=== PATIENT | female | born 1960 | race Caucasian/White ===

== ENCOUNTER → 2016-05-26 | Outpatient (CLI) | payer SELFPAY ==
[~2016-05-26] MED LIST: ACET500C4 PO; AGM875T PO; ALBU17AE3 IH; ALBU8.5H2 IH; ALDACTONE25 MG; AMLO10TA4 PO; AMLO10TA82 PO; AMOX500C2 PO; ASCO500T20 PO; ASP81CT PO; ASP81TEC; ASPI-892; ATOR40TA PO; CALC-80 PO; CALC667C PO; CEFD300C3 PO; CLPD75T; CLPD75T PO; CPR500T PO; CYCL10TA9 PO; DICY20TA57 PO; DOXY100C49; FLUT16SP22; FLUT1DIS26 IH; FURO40TA4 PO; GBPN100C PO; HCT25T; HCT25T PO; HCTZ12.5T PO; HYDR1TAB PO; HYOS0.1283 SL; LEVO750T6 PO; LORA10TA7 PO; LOSA100T16 PO; LOSA1TAB3 PO; LOSA50TA6 PO; LSNP20T PO; MELO7.5T PO; METO100T5 PO; METO200T2 PO; METO50TA7; MNTL10T PO; MTF500T PO; MTP100TCR PO; MTP50T; MULT1CAP27 PO; NEXIUM 20 MG PO; NF-ALI300T PO; NF-ESOM40C PO; NITR100C3 PO; OMEP-10; OMEP40CA36 PO; ONDA4TAB8 PO; ONDAN4ODT PO; OXYC5CAP4 PO; OXYC5TAB71 PO; PENI500T PO; POTA10TA86 PO; PRAV40TA; PRD20T PO; PROP1TAB77; PROP1TAB77 PO; PRV20T; SCR1T1 PO; SMV10T PO; SPRN25T; TRAM-21 PO; TRAM50TA2 PO; TRIA16.5 NS; buspar; norvasc
--- OUTSIDE RECORDS SUMMARY | 2016-05-26 15:52 | XMS REPORT | Continuity of Care Document ---
Author Author [facility] Organization [facility] Address Unknown Phone Unavailable Care Team Providers Care Anode Builder Name Role Phone [facility] [place], [facility] PCP Insurance Providers Payer Name Policy Number Subscriber Name Relationship Self Pay Pamella Bailey 18 Self / Same As Patient Advance Directives Directive Response Recorded Date/Time Advance Directives No 02/19/14 1:38pm Health Care Power of Purchasing And Fiscal Clerk No 02/19/14 1:38pm Organ Donor No 02/19/14 1:38pm Resuscitation Status Full Code 02/19/14 1:38pm Problems Medical Problems Problem Onset Date Status Abdominal pain Unknown Active Cellulitis Unknown Active Cat bite Unknown Active Cat bite of foot Unknown Active Cellulitis Unknown Active Gastroesophageal reflux disease Unknown Active Medications Medication Dose Route Sig Days/Qty Instructions Order Date Discontinued Date Status Aspirin 02/24/08 05/05/08 Discontinued Omeprazole 02/24/08 01/17/10 Discontinued Clopidogrel Bisulfate 02/24/08 01/17/10 Discontinued Hydrochlorothiazide 02/24/08 05/05/08 Discontinued Metoprolol Tartrate (Lopressor) 05/05/08 01/17/10 Discontinued Propoxyphene HCl/Acetaminophen 05/05/08 01/17/10 Discontinued Pravastatin Sodium 05/05/08 01/17/10 Discontinued Spironolactone 05/05/08 09/19/08 Discontinued Aspirin 81 Mg PO DAILY 05/05/08 01/22/12 Discontinued Metoprolol Succinate 08/17/08 01/17/10 Discontinued Spironolactone 08/17/08 01/17/10 Discontinued Pravastatin Sodium 08/17/08 01/17/10 Discontinued Propoxyphene HCl/Acetaminophen 1 Tab PO NEEDED 08/17/08 08/29/10 Discontinued Omeprazole 08/17/08 01/17/10 Discontinued Clopidogrel Bisulfate 75 Mg PO DAILY 08/17/08 07/06/13 Discontinued Aspirin 08/17/08 01/17/10 Discontinued Acetaminophen/Hydrocodone Bitart 1 - 2 Each PO Q4HR PRN 20 Qty 12/08/08 Discontinued Doxycycline Hyclate 09/19/08 12/08/08 Discontinued [buspar ] 09/19/08 02/01/09 Discontinued [norvasc] 09/19/08 02/01/09 Discontinued Amoxicillin 1 Each PO THREE TIMES A DAY 10 Days 09/19/08 12/08/08 Discontinued Tramadol Hcl 50 Mg PO Q4-6HRS PRN 20 Qty 11/22/08 01/17/10 Discontinued Ciprofloxacin 1 Tab PO TWICE A DAY 20 Qty 11/22/08 12/08/08 Discontinued Esomeprazole Magnesium 40 Mg PO DAILY 12/08/08 11/11/12 Discontinued Levofloxacin 1 Each PO DAILY 5 Qty FOR INFECTION 12/08/08 01/17/10 Discontinued Calcium Acetate 667 Mg PO DAILY 02/01/09 03/14/11 Discontinued Sucralfate 1 Gm PO TWICE A DAY 02/01/09 03/14/11 Discontinued Amlodipine Besylate 10 Mg PO BEDTIME 02/01/09 Active Hydrochlorothiazide 12.5 Mg PO DAILY 01/17/10 01/17/10 Discontinued Metoprolol Succinate 100 Mg PO DAILY 01/17/10 11/22/10 Discontinued Atorvastatin Calcium 40 Mg PO BEDTIME 01/17/10 03/17/11 Discontinued Albuterol 2 Puff IH FOUR TIMES DAILY PRN 01/17/10 03/17/11 Discontinued Multivitamins 1 Tab PO BEDTIME 01/17/10 Active Montelukast Sodium 10 Mg PO BEDTIME 01/17/10 03/14/11 Discontinued Losartan/Hydrochlorothiazide 1 Tab PO DAILY 01/17/10 11/22/10 Discontinued Losartan/Hydrochlorothiazide 1 PO DAILY 05/15/10 11/22/10 Discontinued Acetaminophen/Hydrocodone Bitart 1 - 2 Each PO Q4HR PRN 20 Qty 11/22/10 Discontinued Penicillin V Potassium 1 Tab PO FOUR TIMES DAILY 7 Days 05/15/1011/22 Discontinued Salmeterol Xinafoate/Fluticasone 2 Puff IH TWICE A DAY 08/29/10 Discontinued Tramadol Hcl 50 Mg PO NEEDED 08/29/10 03/14/11 Discontinued Furosemide (Lasix) 1 Each PO DAILY 10 Qty 08/29/10 11/22/10 Discontinued Potassium Chloride 1 Each PO DAILY 10 Qty 08/29/10 11/22/10 Discontinued Amlodipine Besylate (Norvasc 10 Mg) 1 Each PO DAILY H Days 03/08/11 Discontinued Losartan/Hydrochlorothiazide 1 Tab PO DAILY 10 Qty 03/08/11 03/14/11 Discontinued Hydrochlorothiazide 1 Each PO DAILY 10 Qty 03/08/11 03/14/11 Discontinued Calcium Carbonate/Vitamin D3 1 Tab PO DAILY 03/14/11 03/17/11 Discontinued Losartan Potassium 50 Mg PO DAILY 03/14/11 03/17/11 Discontinued Hydrochlorothiazide 12.5 Mg PO DAILY 03/14/11 11/11/12 Discontinued Metoprolol Succinate (Toprol Xl) 200 Mg PO DAILY 03/14/11 11/11/12 Discontinued Losartan Potassium 100 Mg PO DAILY 03/17/11 Active Albuterol 2 Puff IH FOUR TIMES DAILY PRN 03/17/11 02/19/14 Discontinued Atorvastatin Calcium 40 Mg PO BEDTIME 03/17/11 01/26/14 Discontinued Calcium Carbonate/Vitamin D3 600 Mg PO DAILY 03/17/11 Active Aliskiren Hemifumarate 300 Mg PO BEDTIME 03/17/11 09/07/11 Discontinued Metformin HCl (Glucophage) 500 Mg PO DAILY HOLD UNTIL RENAL 03/17/11 01/22/12 Discontinued Lisinopril 20 Mg PO DAILY 09/07/11 Active Amoxicillin/Clavulanate Potassium 1 Tab PO TWICE A DAY 20 Qty 09/07/11 09/19/11 Discontinued Ondansetron HCl 4 Mg PO EVERY 4HRS 5 Qty FOR NAUSEA AND VOMITING 09/19/11 Discontinued Ondansetron HCl 4 Mg PO EVERY 4HRS PRN 09/19/11 11/11/12 Discontinued Meloxicam 7.5 Mg PO DAILY 09/21/11 11/10/12 Discontinued Amlodipine Besylate (Norvasc 10 Mg) 1 Each PO DAILY 01/22/12 Discontinued Dicyclomine Hcl 1 Each PO QID PRN 10 Qty 01/22/12 11/11/12 Discontinued Ascorbic Acid 500 Mg PO DAILY 11/10/12 Active Metoprolol Succinate (Toprol Xl) 1 Each PO DAILY 11/11/12 11/11/12 Discontinued Metoprolol Succinate (Toprol Xl) 200 Mg PO BEDTIME 11/11/12 Active [Nexium 20 Mg] 20 Mg PO DAILY 11/11/12 02/19/14 Discontinued Hydrochlorothiazide 25 Mg PO DAILY 11/11/12 Active Fluticasone Propionate 2 Sprays NSEACH TWICE A DAY PRN 11/11/12 Active Loratadine 10 Mg PO DAILY 11/11/12 07/06/13 Discontinued Tramadol Hcl 50 Mg PO EVERY 4HRS PRN NEEDED FOR PAIN 11/11/1202/19 Discontinued Gabapentin 100 Mg PO TWICE A DAY 11/11/12 Active Amoxicillin/Clavulanate K 875 Mg PO TWICE A DAY 01/25/14 02/19/14 Discontinued Oxycodone Hcl 5 Mg PO EVERY 6 HOURS PRN PAIN 6 Qty 01/25/14 02/19/14 Discontinued Simvastatin 10 Mg PO BEDTIME 01/26/14 Active Esomeprazole Magnesium 40 Mg PO DAILY 02/19/14 Active Acetaminophen 1,000 Mg PO EVERY 8HRS PRN PAIN 02/19/14 Active Social History Social History Problem Response Recorded Date/Time Alcohol Use Denies Use 02/19/2014 1:38pm Recreational Drug Use No 02/19/2014 1:38pm Recent Foreign Travel No 01/26/2014 4:50pm Recent Infectious Disease Exposure No 01/26/2014 4:50pm Sexually Transmitted Disease Y GONORRHEA BACK IN HER 20'S 02/19/2014 1:38pm Smoking Status Former Smoker 02/19/2014 1:38pm Query Response Start Date Stop Date Smoking Status Former Smoker Hospital Discharge Instructions No hospital discharge instructions. Plan of Care No plan of care. Functional Status No functional status results. Allergies, Adverse Reactions, Alerts Allergen Type Severity Reaction Status Last Updated NSAIDS (Non-Steroidal Anti-Inflammatory Drug) ([id number]) Allergy Unknown Active 11/11/12 Sulfa (Sulfonamide Antibiotics) ([id number]) Allergy Unknown Active 12/17 Niacin Allergy Unknown Active 09/19/11 IV CONTRAST Allergy Unknown Active 11/11/12 Immunizations Name Given Type Date of Pneumonia Vaccine 01/05/11 Historical Date of Influenza Vaccine 01/05/11 Historical Tetanus Booster (TDap) Less than 5yrs Historical Vital Signs Acute Vital Signs Vital Response Date/Time Temperature (Fahrenheit) 97 degrees F (97.6 - 99.5) Temperature (Calculated Celsius) 36.1140 degrees C (36.4 - 37.5) Temperature Source Temporal Pulse Rate (adult) 76 bpm (60 - 90) Respiratory Rate 18 bpm (12 - 24) O2 Sat by Pulse Oximetry 98 % (88 - 100) Blood Pressure 182/91 mm Hg Pain Pain Intensity 6 Height (Feet) 5 feet Height (Inches) 5 inches Height (Calculated Centimeters) 165.016579 cm Weight (Pounds) 265 pounds Weight (Calculated Kilograms) 120.434514 kilograms Calculated BMI 44.09 Results Test Source Date Result Interp. Ref. Range Comments Activated Partial Thromboplast Time March 16, 2011 3:35pm 50 SEC H 24 -35 Alanine Aminotransferase (ALT/SGPT) July 06, 2013 5:20pm 60 U/L N 30- 65 Albumin July 06, 2013 5:20pm 4.2 G/DL N 3.4-5.0 Alkaline Phosphatase July 06, 2013 5:20pm 138 U/L H 50-136 Amylase Level November 10, 2012 8:59pm 38 U/L N 25-115 Aspartate Amino Transf (AST/SGOT) July 06, 2013 5:20pm 27 U/L N 15-37 B-Type Natriuretic Peptide March 14, 2011 5:20am 22.9 PG/ML N 5.0- 100.0 BUN/Creatinine Ratio July 06, 2013 5:20pm 12 - Basophils # (Auto) January 25, 2014 8:54pm 0.0 10^3/uL N 0.0-0.1 Basophils (%) (Auto) January 25, 2014 8:54pm 0 % N 0-10 Blood Urea Nitrogen July 06, 2013 5:20pm 18 MG/DL N 7-18 C-Reactive Protein November 11, 2012 4:54am 2.1 MG/DL H 0.2-0.9 C-Reactive Protein High Sensitivity January 25, 2014 8:54pm 4.64 MG/DL H 0.00-0.50 Calcium Level July 06, 2013 5:20pm 9.3 MG/DL N 8.5-10.1 Carbon Dioxide Level July 06, 2013 5:20pm 25 MMOL/L N 21-32 Chloride Level July 06, 2013 5:20pm 102 MMOL/L N 101-110 Cholesterol Level March 14, 2011 12:31pm 179 MG/DL N -200 Creatine Kinase MB September 19, 2011 5:02pm 0.0 NG/ML N 0.0-3.6 Creatinine July 06, 2013 5:20pm 1.5 MG/DL H 0.6-1.3 D-Dimer August 17, 2008 7:23pm 0.57 UG/ML H 0.00-0.49 Direct Bilirubin March 17, 2008 9:15am 0.1 MG/DL N 0.0-0.30 Eosinophils # (Auto) January 25, 2014 8:54pm 0.1 10^3/uL N 0.0-0.3 Eosinophils (%) (Auto) January 25, 2014 8:54pm 2 % N 0-10 Glucose Level July 06, 2013 5:20pm 114 MG/DL H 74-106 SPECIMEN 1+ LIPEMIC HDL Cholesterol March 14, 2011 12:31pm 31 MG/DL L 35-60 Hematocrit January 25, 2014 8:54pm 32 % L 35-52 Hemoglobin January 25, 2014 8:54pm 10.7 G/DL L 11.5-16.0 Hemoglobin A1c March 15, 2011 5:06am 5.5 % N 4.8-6.0 Indirect Bilirubin March 17, 2008 9:15am 0.3 MG/DL - Insulin Level March 15, 2011 5:06am 71.2 H mU/L - LDL Cholesterol March 14, 2011 12:31pm 104 MG/DL N 0-129 Lipase November 10, 2012 8:59pm 211 U/L N 73-393 Lymphocytes # (Auto) January 25, 2014 8:54pm 1.6 X 10^3 N 1.0-4.0 Lymphocytes (%) (Auto) January 25, 2014 8:54pm 22 % N 12-44 Magnesium Level January 17, 2010 1:50pm 2.2 MG/DL N 1.8-2.4 Mean Corpuscular Hemoglobin January 25, 2014 8:54pm 32 PG N 25-34 Mean Corpuscular Hemoglobin Concent January 25, 2014 8:54pm 34 G/DL N 32-36 Mean Corpuscular Volume January 25, 2014 8:54pm 94 FL N 80-99 Mean Platelet Volume January 25, 2014 8:54pm 10.6 FL H 7.4-10.4 Monocytes # (Auto) January 25, 2014 8:54pm 0.5 X 10^3 N 0.0-1.0 Monocytes (%) (Auto) January 25, 2014 8:54pm 7 % N 0-12 Myoglobin January 17, 2010 1:50pm 45 UG/L N 10-92 Neutrophils # (Auto) January 25, 2014 8:54pm 4.9 X 10^3 N 1.8-7.8 Neutrophils (%) (Auto) January 25, 2014 8:54pm 69 % N 42-75 Platelet Count January 25, 2014 8:54pm 205 10^3/uL N 130-400 Potassium Level July 06, 2013 5:20pm 4.4 MMOL/L N 3.6-5.0 Prothromb Time International Ratio March 14, 2011 5:20am 0.9 N 0.8- 1.4 INTERPRETIVE DATASUGGESTED THERAPEUTIC RANGE FOR INR'S : VENOUS THROMBOSIS, PULMONARY EMBOLISM, OR PREVENTION OF SYSTEMIC EMBOLISM (EG. IN ATRIAL FIBRILLATION): 2.0 - 3.0 MECHANICAL PROSTHETIC HEART VALVES: 2.5 - 3.5* *NOTE: INR'S UP TO 4.5 MAY BE NECESSARY IN SELECTED GROUPS OF HIGH RISK PATIENTS. [employer] CONSENSUS CONFERENCE ON ANTITHROMBOTIC THERAPY (2000). Prothrombin Time March 14, 2011 5:20am 12.4 SEC N 12.2-14.7 Red Blood Count January 25, 2014 8:54pm 3.38 10^6/uL L 4.35-5.85 Red Cell Distribution Width January 25, 2014 8:54pm 13.1 % N 10.0- 14.5 Serum Test, Qualitative November 22, 2008 7:20pm NEGATIVE - Sodium Level July 06, 2013 5:20pm 135 MMOL/L N 135-145 TSH [place] Testing March 08, 2011 2:55pm 0.99 UIU/ML N 0.34-5.60 Thyroid Stimulating Hormone (TSH) March 14, 2011 12:31pm 0.77 UIU/ML N 0.34-5.60 Total Bilirubin July 06, 2013 5:20pm 0.3 MG/DL N 0.0-1.0 Total Creatine Kinase September 19, 2011 5:02pm 79 U/L N 1-159 Total Protein July 06, 2013 5:20pm 8.1 G/DL N 6.4-8.2 Triglycerides Level March 14, 2011 12:31pm 221 MG/DL H 30.0-150.0 Troponin I September 21, 2011 5:20am < 0.10 NG/ML 0.00-0.10 Urine Bacteria July 06, 2013 4:50pm NEGATIVE /HPF - Has specimen been collected/obtained? YSpecimen Description CLEAN CATCH Urine Bilirubin July 06, 2013 4:50pm NEGATIVE - Has specimen been collected/obtained? YSpecimen Description CLEAN CATCH Urine Casts July 06, 2013 4:50pm NONE /LPF - Has specimen been collected/obtained? YSpecimen Description CLEAN CATCH Urine Clarity July 06, 2013 4:50pm CLEAR - Has specimen been collected/obtained? YSpecimen Description CLEAN CATCH Urine Color July 06, 2013 4:50pm YELLOW - Has specimen been collected/obtained? YSpecimen Description CLEAN CATCH Urine Crystals July 06, 2013 4:50pm NONE /LPF - Has specimen been collected/obtained? YSpecimen Description CLEAN CATCH Urine Culture Indicated July 06, 2013 4:50pm NO - Has specimen been collected/obtained? YSpecimen Description CLEAN CATCH Urine Glucose (UA) July 06, 2013 4:50pm NEGATIVE - Has specimen been collected/obtained? YSpecimen Description CLEAN CATCH Urine Hyaline Casts November 22, 2008 8:05pm RARE - Specimen Description CLEAN CATCH Urine Ketones July 06, 2013 4:50pm NEGATIVE - Has specimen been collected/obtained? YSpecimen Description CLEAN CATCH Urine Leukocyte Esterase July 06, 2013 4:50pm NEGATIVE - Has specimen been collected/obtained? YSpecimen Description CLEAN CATCH Urine Mucus July 06, 2013 4:50pm NEGATIVE /LPF - Has specimen been collected/obtained? YSpecimen Description CLEAN CATCH Urine Nitrate July 17, 2006 5:57pm Negative - Has specimen been collected/obtained? YSpecimen Description CLEAN CATCH Urine Nitrite July 06, 2013 4:50pm NEGATIVE - Has specimen been collected/obtained? YSpecimen Description CLEAN CATCH Urine Test February 28, 2008 6:20am Negative - Has specimen been collected/obtained? YComments to Copper Flotation Operator: DS 2 Urine Protein July 06, 2013 4:50pm NEGATIVE - Has specimen been collected/obtained? YSpecimen Description CLEAN CATCH Urine RBC July 06, 2013 4:50pm NONE /HPF - Has specimen been collected/obtained? YSpecimen Description CLEAN CATCH Urine Specific [place] July 06, 2013 4:50pm 1.005 L - Has specimen been collected/obtained? YSpecimen Description CLEAN CATCH Urine Squamous Epithelial Cells November 10, 2012 8:53pm RARE /HPF - Has specimen been collected/obtained? YSpecimen Description CLEAN CATCH Urine Urobilinogen July 06, 2013 4:50pm NORMAL MG/DL - Has specimen been collected/obtained? YSpecimen Description CLEAN CATCH Urine WBC July 06, 2013 4:50pm 0-2 /HPF - Has specimen been collected/obtained? YSpecimen Description CLEAN CATCH Urine Yeast December 08, 2008 6:55pm FEW H - Has specimen been collected/ obtained? YSpecimen Description CLEAN CATCH Urine pH July 06, 2013 4:50pm 7 - Has specimen been collected/ obtained? YSpecimen Description CLEAN CATCH VLDL Cholesterol March 14, 2011 12:31pm 44 MG/DL H 5-40 White Blood Count January 25, 2014 8:54pm 7.1 10^3/uL N 4.3-11.0 Pathology Consult Specimen May 05, 2008 2:25pm See report - Has specimen been collected/obtained? Y Glucometer February 29, 2008 8:59pm 110 MG/DL N 70-110 Lab Scanned Report September 19, 2011 6:45pm LAB Reports [id number] - Estimat Glomerular Filtration Rate July 06, 2013 5:20pm 37 - GFR INTERPRETIVE DATA UNITS FOR ESTIMATED GFR (eGFR): mL/min/1.73 M2 REFERENCE RANGE FOR ESTIMATED GFR (eGFR) eGFR NORMAL eGFR >60 MODERATELY DECREASED eGFR 30-59 SEVERLY DECREASED eGFR 15-29 KIDNEY FAILURE <15 (OR DIALYSIS) Creatine Kinase September 20, 2011 5:20am 77 U/L N 1-159 Cardiac Panel Pathologist Review September 19, 2011 5:02pm SEE CARDIAC PATH REV - Comments to Copper Flotation Operator: PLEASE USE ANY BLOOD FROM PREVIOUS DRAWS IF ANY Urine RBC (Auto) July 06, 2013 4:50pm NEGATIVE - Has specimen been collected/obtained? YSpecimen Description CLEAN CATCH MRSA Screen Nasal August 09, 2009 7:50am MRSA not isolated Urine Culture Urine-Clean Catch December 08, 2008 6:55pm Escherichia Coli Gram Stain Cyst/Abscess-Other December 28, 2006 6:00pm Procedures Procedure Status Date Provider(s) Tracing only of electrocardiogram completed 02/19/14 BRITNEY NICHOLS MD Encounters Encounter Location Date/Time Departed Emergency Room Via [facility] 02/19/14 1:18pm Departed Emergency Room Via [facility] 01/26/14 4:19pm Departed Emergency Room Via [facility] 01/25/14 8:34pm Recent Diagnosis
--- NOTE | 2016-05-26 17:18 | Diagnostic Imaging Report ---
PROCEDURE: CT urinary tract, rule out kidney stone. TECHNIQUE: Multiple contiguous axial images were obtained through the abdomen and pelvis without the use of intravenous contrast. INDICATION: Right flank pain. COMPARISON: CT abdomen and pelvis without contrast 08/28/2014. FINDINGS: Mild atelectasis or scarring in the lung bases. Atrophic left kidney. Aortobiiliac stent graft and right renal artery stent. The liver, gallbladder, pancreas, spleen, adrenals, right kidney, collecting systems and appendix are negative. Mild degenerative changes in the lumbar spine. No free intraperitoneal air/fluid, lymphadenopathy or evidence of bowel obstruction. IMPRESSION: No acute CT findings in the abdomen or pelvis on this noncontrast exam. Dictated by: Dictated on workstation # [id number]
== END ==
LOC: RAD 15:47
PROVIDERS: ATTEND Nurse Practitioner Family
DX: R10.9 Unspecified abdominal pain (principal)
CPT/HCPCS: 74176

== ENCOUNTER 2016-07-23 11:18 | Emergency (ER) | payer SELFPAY ==
[~2016-07-23] VITALS: Ht 165.1 cm; Wt 124.7 kg
--- OUTSIDE RECORDS SUMMARY | 2016-07-23 11:26 | XMS REPORT | Continuity of Care Document ---
Author Author [facility] Organization [facility] Address Unknown Phone Unavailable Care Team Providers Care Jailor Name Role Phone [facility] [place], [facility] PCP Insurance Providers Payer Name Policy Number Subscriber Name Relationship Self Pay Pamella Bailey 18 Self / Same As Patient Advance Directives Directive Response Recorded Date/Time Advance Directives No 02/19/14 1:38pm Health Care Power of Home Furnishings Sales Representative No 02/19/14 1:38pm Organ Donor No 02/19/14 [...] Status Last Updated NSAIDS (Non-Steroidal Anti-Inflammatory Drug) ([id number]) Allergy Unknown Active 11/11/12 Sulfa (Sulfonamide Antibiotics) ([id number]) Allergy Unknown Active 12/17 Niacin Allergy Unknown [...] Height (Inches) 5 inches Height (Calculated Centimeters) 165.478691 cm Weight (Pounds) 265 pounds Weight (Calculated Kilograms) 120.428094 kilograms Calculated BMI 44.09 Results Test Source [...] SELECTED GROUPS OF HIGH RISK PATIENTS. [employer] CONSENSUS CONFERENCE ON [...] 2013 5:20pm 135 MMOL/L N 135-145 TSH [place] Testing March 08, 2011 2:55pm 0.99 UIU/ML [...] - Has specimen been collected/obtained? YComments to Him Analyst: DS 2 Urine Protein July 06, 2013 4:50pm NEGATIVE - Has specimen been collected/obtained? YSpecimen Description CLEAN CATCH Urine RBC July 06, 2013 4:50pm NONE /HPF - Has specimen been collected/obtained? YSpecimen Description CLEAN CATCH Urine Specific [place] July 06, 2013 4:50pm 1.005 L - [...] Report September 19, 2011 6:45pm LAB Reports [id number] - Estimat Glomerular Filtration Rate July 06, [...] SEE CARDIAC PATH REV - Comments to Him Analyst: PLEASE USE ANY BLOOD FROM PREVIOUS DRAWS [...] Encounter Location Date/Time Departed Emergency Room Via [facility] 02/19/14 1:18pm Departed Emergency Room [facility] 01/26/14 4:19pm Departed Emergency Room [facility] 01/25/14 8:34pm Recent Diagnosis
--- NOTE | 2016-07-23 11:49 | ED Integumentary General ---
General Chief Complaint: Skin/Wound Problems Stated Complaint: L ARM LUMP/REDNESS Nursing Triage Note: PT HERE WITH C/O INFLAMED LESION ON L AC SPACE SINCE 07/23/16. Source: patient Exam Limitations: no limitations History of Present Illness Time seen by provider: 11:43 Initial Comments The patient Presents with an itchy lesion just distal to her left antecubital fossa. This was first noted yesterday. She reports that she been to the doctor for a respiratory infection on and was given doxycycline. Blood was drawn at that time. The area of this lesion is in the distribution of the Band-Aid placed over the puncture site. Timing/Duration: yesterday Location: extremities (left upper) Possible Cause: exposure to allergen Allergies and Home Medications Allergies Coded Allergies: NSAIDS (Non-Steroidal Anti-Inflamma (Verified Allergy, Unknown, 11/11/12) Sulfa (Sulfonamide Antibiotics) (Verified Allergy, Unknown, 11/11/12) acetaminophen (Unverified Allergy, Unknown, 03/26/14) niacin (Verified Allergy, Unknown, 09/19/11) Uncoded Allergies: IV CONTRAST (Allergy, Unknown, 11/11/12) Home Medications Albuterol Sulfate 8.5 Gm Aer.w.adap 2 PUFF IH QID PRN PRN SHORTNESS OF BREATH ( Reported) Amlodipine Besylate 10 Mg Tablet 10 MG PO HS (Reported) Ascorbic Acid 500 Mg Tablet 500 MG PO DAILY (Reported) Calcium Carbonate/Vitamin D3 1 Each Tablet 1 TAB PO DAILY (Reported) Cyclobenzaprine HCl 10 Mg Tablet 10 MG PO DAILY PRN (Reported) Fluticasone Propionate 16 Gm Naspr 2 SPRAYS NA BID PRN PRN ALLERGIES (Reported) Gabapentin 100 Mg Cap 100 MG PO TID (Reported) Lisinopril 20 Mg Tab 20 MG PO DAILY (Reported) Metoprolol Succinate 200 Mg Tab.sr.24h 200 MG PO HS (Reported) Multivitamins 1 Each Capsule 1 TAB PO HS (Reported) Omeprazole 40 Mg Capsule.dr 40 MG PO DAILY (Reported) Ondansetron 4 Mg Tab.rapdis #10 4 MG PO Q4H PRN PRN NAUSEA/VOMITING Prescribed by: МАРИЯ MIRZA on 08/27/15 7744 Simvastatin 10 Mg Tab 10 MG PO HS (Reported) Tramadol HCl 50 Mg Tablet #60 50 MG PO QID Prescribed by: BRITNEY NICHOLS on 12/03/15 1245 Constitutional: see HPI EENTM: no symptoms reported Respiratory: no symptoms reported Cardiovascular: no symptoms reported Gastrointestinal: no symptoms reported Genitourinary: no symptoms reported Musculoskeletal: no symptoms reported Skin: see HPI Psychiatric/Neurological: No Symptoms Reported Endocrine: No Symptoms Reported Hematologic/Lymphatic: No Symptoms Reported Past Veskdvf-Hyovsj-Bchbzf Hx Patient Social History Former Smoker/When Quit: May 07, 2011 Recent Foreign Travel: No Contact w/Someone Who Travel: No Recent Infectious Disease Expo: No Recent Hopitalizations: No Immunizations Up To Date Tetanus Booster (TDap): Less than 5yrs Date of Pneumonia Vaccine: Jan 05, 2011 Date of Influenza Vaccine: Feb 05, 2020 Seasonal Allergies Seasonal Allergies: No Surgeries HX Surgeries: Yes (stents to each kidney, 1 in abd, and 1 in each leg) Surgeries: Adenoidectomy, Ear Surgery, Tonsillectomy, Vascular Surgery Respiratory Hx Respiratory Disorders: Yes Respiratory Disorders: Asthma, COPD Cardiovascular Hx Cardiac Disorders: Yes Cardiac Disorders: Aneurysm, High Cholesterol, Hypertension, Peripheral Vascular Neurological Hx Neurological Disorders: Yes Neurological Disorders: Neuropathy Reproductive System Hx Reproductive Disorders: Yes Sexually Transmitted Disease: Yes (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 BACK IN HER 20'S) 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 Genitourinary Hx Genitourinary Disorders: Yes (WEARS A PAD DUE TO INCONTINENCE, ONLY FUNCTIONING KIDNEY (RT)) Genitourinary Disorders: Renal Failure, UTI-Chronic Gastrointestinal Hx Gastrointestinal Disorders: Yes Gastrointestinal Disorders: Gastroesophageal Reflux Musculoskeletal Hx Musculoskeletal Disorders: Yes Musculoskeletal Disorders: Arthritis, Fibromyalgia Endocrine Hx Endocrine Disorders: Yes (DIET CONTROLLED DM) Endocrine Disorders: Diabetes, Non-Insulin dep HEENT HX ENT Disorders: Yes (NO TOP TEETH/BAD TEETH ON BOTTOM, 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 Physical Exam Vital Signs Vital Sign - Last 12Hours 07/23/16 11:26 Temp 98.7 Pulse 70 Resp 18 B/P 179/65 Pulse Ox 97 O2 Delivery Room Air Capillary Refill : Less Than 3 Seconds General Appearance: WD/WN no apparent distress HEENT: normal ENT inspection Neck: full range of motion Respiratory: chest non-tender lungs clear normal breath sounds no respiratory distress no accessory muscle use Comments There is a 2 cm round raised and slightly red lesion in the left upper forearm just distal to the antecubital space and volar. This appears to be the ulnar border of the Band-Aid placed over the venipuncture site Progress/Results/Core Measures Results/Orders Vital Signs/I&O Vital Sign - Last 12Hours 07/23/16 11:26 Temp 98.7 Pulse 70 Resp 18 B/P 179/65 Pulse Ox 97 O2 Delivery Room Air Blood Pressure Mean: 103 Departure Impression Impression: Primary Impression: Allergic contact dermatitis Disposition: HOME, SELF-CARE Condition: Stable/Unchanged Departure-Patient Inst. Decision time for Depature: 11:47 Referrals: WHIT LOVELL DO (PCP) Primary Care Physician PHUC AMIN (Family) Primary Care Physician Add. Discharge Instructions: All discharge instructions reviewed with patient and/or family. Voiced understanding. Acquire Cortizone 10 and Benadryl 25 mg. These are [id number] medications. Apply the Cortizone 10 3 times daily in sparing amounts until the lesion is cleared. The Benadryl can be used 3 times daily as needed for itching. This causes drowsiness and some people. BRITNEY NICHOLS MD Jul 23, 2016 11:49
[2016-07-23 12:17] VITALS: BP 179/65
== END 2016-07-23 12:15 | disposition home or self-care (01) ==
LOC: EDUNIT# 11:18 → ER 11:20
DX: L23.9 Allergic contact dermatitis, unspecified cause (principal); I10 Essential (primary) hypertension; E11.9 Type 2 diabetes mellitus without complications; J44.9 Chronic obstructive pulmonary disease, unspecified; Z79.899 Other long term (current) drug therapy
CPT/HCPCS: 99285

== ENCOUNTER 2017-02-07 17:54 | Emergency (ER) | payer SELFPAY ==
[~2017-02-07] VITALS: Ht 160 cm; Wt 99.8 kg
--- NOTE | 2017-02-07 18:28 | ED Chest Pain ---
General Chief Complaint: Chest Pain Stated Complaint: CHEST/BACK PAIN Nursing Triage Note: ARRIVED VIA AMB TO ROOM 06 WITH COMPLAINTS OF RIGHT SIDED CHEST PAIN THAT RADIATES INTO BACK. Nursing Sepsis Screen: No Definite Risk Source: patient, spouse Exam Limitations: no limitations History of Present Illness Time seen by provider: 18:06 Initial Comments PResents by private conveyance with 2 hours chest pain mid sternum theat radiates to the epigastrium, then RUQ and around back and up to right shoulder blade and axilla. Reproduciple on pressing. Never had this before. Has [place]ary [place] [address] [place]. Has renetta renal stents and AAA with stents in place. She has had nausea but no vomiting or diarrhea. No SOB or cough. Quit smoking 7 years ago. No thyroid Dx but has hypercholesterolemia and HTN. She has been taking her meds regularly. No trauma. Has had her GB US multiple times most recently a couple months ago. Not sure if she has had HIDA or Upper endoscopy. DM. Allergies and Home Medications Allergies Coded Allergies: NSAIDS (Non-Steroidal Anti-Inflamma (Verified Allergy, Unknown, 11/11/12) Sulfa (Sulfonamide Antibiotics) (Verified Allergy, Unknown, 11/11/12) acetaminophen (Unverified Allergy, Unknown, 03/26/14) niacin (Verified Allergy, Unknown, 09/19/11) Uncoded Allergies: IV CONTRAST (Allergy, Unknown, 11/11/12) Home Medications Albuterol Sulfate 8.5 Gm Aer.w.adap, 2 PUFF IH QID PRN for SHORTNESS OF BREATH, (Reported) Amlodipine Besylate 10 Mg Tablet, 10 MG PO HS, (Reported) Ascorbic Acid 500 Mg Tablet, 500 MG PO DAILY, (Reported) Calcium Carbonate/Vitamin D3 1 Each Tablet, 1 TAB PO DAILY, (Reported) Cephalexin 500 Mg Capsule, 500 MG PO BID for 5 Days, #9 Ref 0 Prescribed by: SANDRA LAWSON on 02/07/17 6328 Cyclobenzaprine HCl 10 Mg Tablet, 10 MG PO DAILY PRN, (Reported) Fluticasone Propionate 16 Gm Naspr, 2 SPRAYS NA BID PRN for ALLERGIES, (Reported ) Gabapentin 100 Mg Cap, 100 MG PO TID, (Reported) Lisinopril 20 Mg Tab, 20 MG PO DAILY, (Reported) Metoprolol Succinate 200 Mg Tab.sr.24h, 200 MG PO HS, (Reported) Multivitamins 1 Each Capsule, 1 TAB PO HS, (Reported) Omeprazole 40 Mg Capsule.dr, 40 MG PO DAILY, (Reported) Ondansetron 4 Mg Tab.rapdis, 4 MG PO Q4H PRN for NAUSEA/VOMITING, #10 Prescribed by: МАРИЯ MIRZA on 08/27/15 1834 Simvastatin 10 Mg Tab, 10 MG PO HS, (Reported) Tramadol HCl 50 Mg Tablet, 50 MG PO QID, #60 Prescribed by: BRITNEY NICHOLS on 12/03/15 1245 Review of Systems Constitutional: No chills, No diaphoresis, No fever EENTM: No Blurred Vision, No Eye Pain Respiratory: Denies Cough, Denies Shortness of Air Cardiovascular: See HPI, Chest Pain, Denies Irregular Heart Rate, Denies Lightheadedness, Denies Palpitations, Denies Syncope Gastrointestinal: See HPI, Denies Abdomen Distended, Abdominal Pain, Denies Constipated, Denies Diarrhea, Nausea, Denies Vomiting Genitourinary: Denies Burning, Denies Discharge Musculoskeletal: No back pain, No joint pain Skin: No pruritus, No rash Psychiatric/Neurological: Denies Headache, Denies Numbness, Denies Paresthesia Endocrine: Denies Intolerance to Cold, Denies Intolerance to Heat, Denies Increased Hunger, Denies Increased Thrist, Denies Increased Urine, Denies Unexplained Weight Gain, Denies Unexplaned Weight Loss Hematologic/Lymphatic: Denies Easy Bleeding, Denies Easy Bruising Past Hitmppl-Avszyo-Vskgjj Hx Patient Social History Alcohol Use: Denies Use Recreational Drug Use: No Smoking Status: Never a Smoker Former Smoker, Quit: May 07, 2009 Recent Foreign Travel: No Contact w/Someone Who Travel: No Recent Infectious Disease Expo: No Recent Hopitalizations: No Immunizations Up To Date Tetanus Booster (TDap): Less than 5yrs Date of Pneumonia Vaccine: Jan 05, 2011 Date of Influenza Vaccine: Feb 05, 2020 Seasonal Allergies Seasonal Allergies: No Surgeries History of Surgeries: Yes (stents to each kidney, 1 in abd, and 1 in each leg) Surgeries: Adenoidectomy, Ear Surgery, Tonsillectomy, Vascular Surgery Respiratory History of Respiratory Disorde: Yes Respiratory Disorders: Asthma, COPD Cardiovascular History of Cardiac Disorders: Yes Cardiac Disorders: Aneurysm, High Cholesterol, Hypertension, Peripheral Vascular Neurological History of Neurological Disord: Yes Neurological Disorders: Neuropathy Reproductive System Hx Reproductive Disorders: Yes Sexually Transmitted Disease: Yes (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 Genitourinary Genitourinary Disorders: Renal Failure, UTI-Chronic Gastrointestinal History of Gastrointestinal Di: Yes Gastrointestinal Disorders: Gastroesophageal Reflux Musculoskeletal History of Musculoskeletal Dis: Yes Musculoskeletal Disorders: Arthritis, Fibromyalgia Endocrine History of Endocrine Disorders: Yes (DIET CONTROLLED DM) Endocrine Disorders: Diabetes, Non-Insulin dep HEENT HEENT Disorders: Glaucoma Loss of Vision: Left Cancer History of Cancer: No Psychosocial History of Psychiatric Problem: No Integumentary History of Skin or Integumenta: No Blood Transfusions History of Blood Disorders: Yes Adverse Reaction to a Blood Tr: No Family Medical History Family Medial History: Patient reports no known family medical history. Physical Exam Vital Signs Vital Sign - Last 12Hours 02/07/17 17:58 Temp 98.0 Pulse 74 Resp 18 B/P (MAP) 149/68 Pulse Ox 97 Capillary Refill : Less Than 3 Seconds General Appearance: No Apparent Distress, WD/WN, Obese HEENT: PERRL/EOMI, Pharynx Normal Neck: Full Range of Motion, Non Tender, Supple Respiratory: Lungs Clear, Normal Breath Sounds, No Accessory Muscle Use, No Respiratory Distress, Other (Chest Tender to palpation over the sternum.) Cardiovascular: Regular Rate, Rhythm, No Edema, No Gallop, No JVD, Normal Peripheral Pulses Gastrointestinal: Normal Bowel Sounds, No Organomegaly, Soft, Tenderness ( epigastric and RUQ. No Bauer's sign. ) Extremity: Normal Capillary Refill, Normal Inspection Neurologic/Psychiatric: Alert, Oriented x3 Skin: Normal Color, Warm/Dry Progress/Results/Core Measures Results/Orders Lab Results Laboratory Tests Test 02/07/17 19:02 02/07/17 20:35 02/07/17 22:00 Range/Units White Blood Count 5.5 4.3-11.0 10^3/uL Red Blood Count 4.05 L 4.35-5.85 10^6/uL Hemoglobin 12.1 11.5-16.0 G/DL Hematocrit 38 35-52 % Mean Corpuscular Volume 95 80-99 FL Mean Corpuscular Hemoglobin 30 25-34 PG Mean Corpuscular Hemoglobin Concent 32 32-36 G/DL Red Cell Distribution Width 13.6 10.0-14.5 % Platelet Count 185 130-400 10^3/uL Mean Platelet Volume 11.1 H 7.4-10.4 FL Neutrophils (%) (Auto) 63 42-75 % Lymphocytes (%) (Auto) 27 12-44 % Monocytes (%) (Auto) 7 0-12 % Eosinophils (%) (Auto) 2 0-10 % Basophils (%) (Auto) 1 0-10 % Neutrophils # (Auto) 3.5 1.8-7.8 X 10^3 Lymphocytes # (Auto) 1.5 1.0-4.0 X 10^3 Monocytes # (Auto) 0.4 0.0-1.0 X 10^3 Eosinophils # (Auto) 0.1 0.0-0.3 10^3/uL Basophils # (Auto) 0.0 0.0-0.1 10^3/uL Prothrombin Time 12.1 L 12.2-14.7 SEC INR Comment 0.9 0.8-1.4 Activated Partial Thromboplast Time 28 24-35 SEC Sodium Level 138 135-145 MMOL/L Potassium Level 3.8 3.6-5.0 MMOL/L Chloride Level 104 98-107 MMOL/L Carbon Dioxide Level 24 21-32 MMOL/L Anion Gap 10 5-14 MMOL/L Blood Urea Nitrogen 12 7-18 MG/DL Creatinine 1.30 0.60-1.30 MG/DL Estimat Glomerular Filtration Rate 43 BUN/Creatinine Ratio 9 Glucose Level 144 H 70-105 MG/DL Calcium Level 9.4 8.5-10.1 MG/DL Magnesium Level 2.1 1.8-2.4 MG/DL Total Bilirubin 0.4 0.1-1.0 MG/DL Aspartate Amino Transf (AST/SGOT) 22 5-34 U/L Alanine Aminotransferase (ALT/SGPT) 29 0-55 U/L Alkaline Phosphatase 82 40-136 U/L Myoglobin 69.5 10.0-92.0 NG/ML Troponin I < 0.30 < 0.30 <0.30 NG/ML Total Protein 7.7 6.4-8.2 GM/DL Albumin 4.5 3.2-4.5 GM/DL Lipase 34 8-78 U/L Urine Color YELLOW Urine Clarity CLEAR Urine pH 6 5-9 Urine Specific [place] 1.010 L 1.016-1.022 Urine Protein NEGATIVE NEGATIVE Urine Glucose (UA) NEGATIVE NEGATIVE Urine Ketones NEGATIVE NEGATIVE Urine Nitrite NEGATIVE NEGATIVE Urine Bilirubin NEGATIVE NEGATIVE Urine Urobilinogen NORMAL NORMAL MG/DL Urine Leukocyte Esterase 3+ H NEGATIVE Urine RBC (Auto) NEGATIVE NEGATIVE Urine RBC NONE /HPF Urine WBC 25-50 H /HPF Urine Squamous Epithelial Cells 2-5 /HPF Urine Crystals NONE /LPF Urine Bacteria MODERATE H /HPF Urine Casts NONE /LPF Urine Mucus NEGATIVE /LPF Urine Culture Indicated YES Urine Opiates Screen NEGATIVE NEGATIVE Urine Oxycodone Screen NEGATIVE NEGATIVE Urine Methadone Screen NEGATIVE NEGATIVE Urine Propoxyphene Screen NEGATIVE NEGATIVE Urine Barbiturates Screen NEGATIVE NEGATIVE Ur Tricyclic Antidepressants Screen NEGATIVE NEGATIVE Urine Phencyclidine Screen NEGATIVE NEGATIVE Urine Amphetamines Screen NEGATIVE NEGATIVE Urine Methamphetamines Screen NEGATIVE NEGATIVE Urine Benzodiazepines Screen NEGATIVE NEGATIVE Urine Cocaine Screen NEGATIVE NEGATIVE Urine Cannabinoids Screen NEGATIVE NEGATIVE My Orders Orders - LURDES LAWSONUS [place] Cbc With Automated Diff (02/07/17 18:19) Magnesium (02/07/17 18:19) Chest 1 View, Ap/Pa Only (02/07/17 18:19) Cardiac Profile 1 (02/07/17 18:19) Comprehensive Metabolic Panel (02/07/17 18:19) Myoglobin Serum (02/07/17 18:19) Protime With Inr (02/07/17 18:19) Partial Thromboplastin Time (02/07/17 18:19) O2 (02/07/17 18:19) Monitor-Rhythm Ecg Trace Only (02/07/17 18:19) Lipid Panel (02/08/17 06:00) Aspirin Chewable Tablet (Baby Aspirin Ch (02/07/17 18:30) Saline Lock/Iv-Start (02/07/17 18:19) Lipase (02/07/17 18:19) Drug Screen Stat (Urine) (02/07/17 18:19) Ua Culture If Indicated (02/07/17 18:19) Lidocaine 2% Viscous 15 Ml (Xylocaine Vi (02/07/17 18:45) Famotidine Tablet (Pepcid Tablet) (02/07/17 18:45) Antacid Suspension (Mylanta Suspension (02/07/17 18:45) Aorta Sono [id number] (02/07/17 18:19) Us Gallbladder 51959 (02/07/17 19:12) Urine Culture (02/07/17 20:35) Troponin I (02/07/17 22:00) Cephalexin Capsule (Keflex Capsule) (02/07/17 23:00) Medications Given in ED Current Medications Medications Dose Ordered Sig/Aramis Route Start Time Stop Time Status Last Admin Dose Admin Al Hydrox/Mg Hydrox/Simethicone 30 ml ONCE ONCE PO 02/07/17 18:45 02/07/17 18:46 DC 02/07/17 18:48 30 ML Aspirin 324 mg ONCE ONCE PO 02/07/17 18:30 02/07/17 18:31 DC 02/07/17 18:48 324 MG Famotidine 20 mg ONCE ONCE PO 02/07/17 18:45 02/07/17 18:46 DC 02/07/17 18:48 20 MG Lidocaine HCl 5 ml ONCE ONCE PO 02/07/17 18:45 02/07/17 18:46 DC 02/07/17 18:48 5 ML Vital Signs/I&O Vital Sign - Last 12Hours 02/07/17 17:58 Temp 98.0 Pulse 74 Resp 18 B/P (MAP) 149/68 Pulse Ox 97 Blood Pressure Mean: 95 Progress Note : Time: 18:30 Progress Note Cannot pull up old imaging at this time. Will get US RUQ and To eval the AAA. Her reproducible CP is less concerning. Doesn't seem to be pleuritic with no cough. Msk seems reasonable or a GI cause. Will give a GI cocktail. 3 hour troponin rule out is the plan. ECG Initial ECG Impression Date: Feb 07, 2017 Initial ECG Impression Time: 18:02 Initial ECG Rate: 69 Initial ECG Rhythm: Normal Sinus Initial ECG Intervals: Normal Initial ECG Impression: Normal Initial ECG Comparisson: No Previous ECG Available Comment No ST wave elevation or depression. Diagnostic Imaging Diagonstic Imaging: Xray Plain Films/CT/US/NM/MRI: chest Comments Negative 1 view chest NAME: PAMELLA TORRES [facility] REC#: [id number] PHYSICIAN: SANDRA LAWSON MD CC: JARON IBARRA DO; SANDRA LAWSON Page 1 of 1 RADIOLOGY REPORT VIA [facility], [facility]. [place], [place] CC: JARON IBARRA DO; SANDRA LAWSON Page 1 of 1 RADIOLOGY REPORT NAME: PAMELLA TORRES [facility] REC#: [id number] PT STATUS: REG ER : 1960 PHYSICIAN: SANDRA LAWSON MD ADMIT DATE: 02/07/17/ER Signed Date of Exam: 02/07/17 CHEST 1 VIEW, AP/PA ONLY INDICATION: Chest pain. COMPARISON: 02/04/2016. EXAMINATION: Upright portable view of the chest was obtained. FINDINGS: Heart size is normal. The pulmonary vessels appear unremarkable. There is no pneumothorax, mediastinal widening or pleural fluid demonstrated. The lungs are clear. IMPRESSION: Negative chest. Dictated by: Dictated on workstation # [id number] Dict: 02/07/171835 Trans: 02/07/171849 Interpreted by: JARON IBARRA DO Electronically signed by: JARON IBARRA DO 02/07/171849 Reviewed: Reviewed by Wy Diagonstic Imaging: Ultrasound Plain Films/CT/US/NM/MRI: abdomen Comments VIA [place], [place] NAME: PAMELLA TORRES [facility] REC#: [id number] PT STATUS: REG ER : 1960 PHYSICIAN: SANDRA LAWSON MD ADMIT DATE: 02/07/17/ER Draft Date of Exam:02/07/17 US GALLBLADDER [id number] PROCEDURE: US Gallbladder. TECHNIQUE: Multiple real-time grayscale images were obtained over the right upper quadrant in various projections. INDICATION: Right upper quadrant abdominal pain There is an increased echogenicity throughout the liver suggesting fatty infiltration. Overlying bowel gas obscures the common bile duct. Gallbladder is within normal limits for size without evidence of intraluminal filling defect or pericholecystic fluid. Pancreas could not be visualized. No right renal abnormalities identified. IMPRESSION: No evidence of gallbladder abnormality on limited study in patient with probable diffuse fatty infiltration of the liver. Dictated on workstation # [id number] Dict: 02/07/171926 Trans: 02/07/171928 MARJORIE [id number] Interpreted by: ZAYDA DONIS MD Electronically signed by: [facility] [place], [place] NAME: PAMELLA TORRES [facility] REC#: [id number] PT STATUS: REG ER : 1960 PHYSICIAN: SANDRA LAWSON MD ADMIT DATE: 02/07/17/ER Draft Date of Exam:02/07/17 AORTA SONO [id number] INDICATION: Abdominal aortic aneurysm. FINDINGS: Ultrasonography of the abdominal aorta is attempted. Large amount of overlying bowel gas obscures the aorta, and measurements could not be obtained. IMPRESSION: Limited study with obscured aorta. Dictated on workstation # [id number] Dict: 02/07/171927 Trans: 02/07/171929 [id number] Interpreted by: ZAYDA DONIS MD Electronically signed by: Reviewed: Reviewed by Me Consults Consults : Consulting Physician: MAKENZIE SMITH MD Consults Notes Discussed the case, findings and he says a CT MCMILLAN would be useful inferior looking at the AAA and can't see it on ultrasound however if her kidneys and allow for contrast been a CT without is useless. He says since the pain is reproducible on palpation is unlikely related to her heart and we can do a 3 hour troponin and have her follow-up with her primary care physician this week. Departure Impression Impression: Primary Impression: Chest wall pain Additional Impression: UTI (urinary tract infection) Qualified Codes: N30.00 - Acute cystitis without hematuria Disposition: HOME, SELF-CARE Condition: Stable Departure-Patient Inst. Decision time for Depature: 22:51 Referrals: WHIT LOVELL DO (PCP) Primary Care Physician PHUC AMIN (Family) Primary Care Physician Patient Instructions: Chest Pain That Is Not Caused by the Heart (DC) Add. Discharge Instructions: Drink plenty of water and use your medications as prescribed. Take one 500 mg capsule of Keflex twice a day for the next 5 days to treat your urinary tract infection. Tomorrow morning call your primary care physician and make an appointment within the next 1-2 weeks to follow up for your ER visit today and consider other causes for your chest wall pain besides the heart such as your gastrointestinal route. If you begin to have new onset chest pain, shortness of breath or nausea and vomiting should return to the ER. All discharge instructions reviewed with patient and/or family. Voiced understanding. Scripts Cephalexin (Keflex) 500 Mg Capsule 500 MG PO BID for 5 Days, #9 CAP 0 Refills Prov: SANDRA LAWSON 02/07/17 Copy Copies To 1: WHIT LOVELL TITUS J Feb 07, 2017 18:28
[2017-02-07] MEDS ORDERED: ASPIRIN 81 MG CHEW (CHILDREN'S ASA) PO ONE (18:30)
--- NOTE | 2017-02-07 18:41 | Diagnostic Imaging Report ---
INDICATION: Chest pain. COMPARISON: 02/04/2016. EXAMINATION: Upright portable view of the chest was obtained. FINDINGS: Heart size is normal. The pulmonary vessels appear unremarkable. There is no pneumothorax, mediastinal widening or pleural fluid demonstrated. The lungs are clear. IMPRESSION: Negative chest. Dictated by: Dictated on workstation # [id number]
[2017-02-07] MEDS ORDERED: ANTACID SUSP 30 ML UDC (MYLANTA) PO ONE (18:45)
[2017-02-07] MEDS ORDERED: FAMOTIDINE 20 MG (PEPCID) TABLET PO ONE (18:45)
[2017-02-07] MEDS ORDERED: LIDOCAINE 2% VISCOUS 15 ML UDC PO ONE (18:45)
[2017-02-07 19:12] LABS: BASOPHILS % (AUTO) 1 % (0-10); EOSINOPHILS # (AUTO) 0.1 10^3/uL (0.0-0.3); EOSINOPHILS % (AUTO) 2 % (0-10); LYMPHOCYTES # (AUTO) 1.5 X 10^3 (1.0-4.0); LYMPHOCYTES % (AUTO) 27 % (12-44); MEAN CORPUSCULAR HEMOGLOBIN 30 PG (25-34); MEAN CORPUSCULAR HGB CONC 32 G/DL (32-36); MEAN CORPUSCULAR VOLUME 95 FL (80-99); MEAN PLATELET VOLUME 11.1 FL (7.4-10.4); MONOCYTES # (AUTO) 0.4 X 10^3 (0.0-1.0); MONOCYTES % (AUTO) 7 % (0-12); NEUTROPHILS # (AUTO) 3.5 X 10^3 (1.8-7.8); NEUTROPHILS % (AUTO) 63 % (42-75); PLATELET COUNT 185 10^3/uL (130-400); RED BLOOD COUNT 4.05 10^6/uL (4.35-5.85); RED CELL DISTRIBUTION WIDTH 13.6 % (10.0-14.5); WHITE BLOOD COUNT 5.5 10^3/uL (4.3-11.0)
[2017-02-07 19:21] LABS: INR 0.9 (0.8-1.4); PROTHROMBIN TIME PATIENT 12.1 SEC (12.2-14.7)
--- NOTE | 2017-02-07 19:30 | Diagnostic Imaging Report ---
INDICATION: Abdominal aortic aneurysm. FINDINGS: Ultrasonography of the abdominal aorta is attempted. Large amount of overlying bowel gas obscures the aorta, and measurements could not be obtained. IMPRESSION: Limited study with obscured aorta. Dictated by: Dictated on workstation # [id number]
--- NOTE | 2017-02-07 19:30 | Diagnostic Imaging Report ---
PROCEDURE: US Gallbladder. TECHNIQUE: Multiple real-time grayscale images were obtained over the right upper quadrant in various projections. INDICATION: Right upper quadrant abdominal pain There is an increased echogenicity throughout the liver suggesting fatty infiltration. Overlying bowel gas obscures the common bile duct. Gallbladder is within normal limits for size without evidence of intraluminal filling defect or pericholecystic fluid. Pancreas could not be visualized. No right renal abnormalities identified. IMPRESSION: No evidence of gallbladder abnormality on limited study in patient with probable diffuse fatty infiltration of the liver. Dictated by: Dictated on workstation # [id number]
[2017-02-07 19:32] LABS: ALANINE AMINOTRANSFERASE 29 U/L (0-55); ALBUMIN 4.5 GM/DL (3.2-4.5); ANION GAP 10 MMOL/L (5-14); ASPARTATE AMINO TRANSFERASE 22 U/L (5-34); BILIRUBIN,TOTAL 0.4 MG/DL (0.1-1.0); BLOOD UREA NITROGEN 12 MG/DL (7-18); BUN/CREATININE RATIO 9; CALCIUM 9.4 MG/DL (8.5-10.1); CARBON DIOXIDE 24 MMOL/L (21-32); CHLORIDE 104 MMOL/L (98-107); GFR ESTIMATED 43; GLUCOSE 144 MG/DL (70-105); LIPASE 34 U/L (8-78); MAGNESIUM 2.1 MG/DL (1.8-2.4); POTASSIUM 3.8 MMOL/L (3.6-5.0); SODIUM 138 MMOL/L (135-145); TOTAL PROTEIN 7.7 GM/DL (6.4-8.2)
[2017-02-07 19:39] LABS: MYOGLOBIN SERUM 69.5 NG/ML (10.0-92.0)
[2017-02-07 20:42] LABS: BILIRUBIN,URINE NEGATIVE (NEGATIVE); KETONES,URINE NEGATIVE (NEGATIVE); LEUKOCYTE ESTERASE ,URINE 3+ (NEGATIVE); NITRITE,URINE NEGATIVE (NEGATIVE); PH,URINE 6 (5-9); PROTEIN,URINE NEGATIVE (NEGATIVE); UROBILINOGEN,URINE NORMAL (NORMAL)
[2017-02-07 20:52] LABS: WBC,URINE 25-50 /HPF
[2017-02-07] MEDS ORDERED: CEPH-507 PO (22:51)
[2017-02-07] MEDS ORDERED: CEPHALEXIN 250 MG (KEFLEX) CAP PO ONE (23:00)
[2017-02-07 23:05] VITALS: BP 169/104
== END 2017-02-07 23:05 | disposition home or self-care (01) ==
LOC: EDUNIT# 17:54 → ER 17:57
DX: Z90.89 Acquired absence of other organs; Z96.0 Presence of urogenital implants; J44.9 Chronic obstructive pulmonary disease, unspecified; I10 Essential (primary) hypertension; E11.40 Type 2 diabetes mellitus with diabetic neuropathy, unspecified; N39.0 Urinary tract infection, site not specified; E78.00 Pure hypercholesterolemia, unspecified; R07.89 Other chest pain; K21.9 Gastro-esophageal reflux disease without esophagitis
CPT/HCPCS: 36415; 71010; 76705; 76775; 80053; 80306; 81000; 83690; 83735; 83874; 84484; 85025; 85610; 85730; 87088; 93005

== ENCOUNTER 2017-03-06 20:31 | Emergency (ER) | payer BC, OTHER ==
[~2017-03-06] VITALS: Ht 160 cm; Wt 99.8 kg
[~2017-03-06 20:31] MED LIST changes: +CEPH-507 PO
--- NOTE | 2017-03-06 20:42 | ED General ---
General Stated Complaint: LOWER STOMACH/BACK PAIN Source of Information: Patient (VERY LIMITED HISTORIAN), Other (FEMALE S.O. ) History of Present Illness Time Seen by Provider: 15:30 Initial Comments PT ARRIVES VIA POV FROM HOME C/O DIFFUSE LOWER ABDOMINAL PAIN AND LOWER BACK PAIN X 4 DAYS, IS GRADUALLY GETTING WORSE NOTHING WORSENS OR IMPROVES PAIN --TOOK 1 TYLENOL WITH OUT RELIEF, OTHERWISE HAS NOT TAKEN ANYTHING FOR PAIN + NAUSEA, NO VOMITING NO DIARRHEA--HAS HAD CONSTIPATION --LAST BM WAS 3-4 DAYS AGO AND ONLY SMALL AMOUNTS NO FEVER DOES HAVE LOWER ABDOMINAL PAIN ON URINATION NO HISTORY OF SIMILAR PCP: [facility] [place] [facility] Allergies and Home Medications Allergies Coded Allergies: NSAIDS (Non-Steroidal Anti-Inflamma (Verified Allergy, Unknown, 11/11/12) Sulfa (Sulfonamide Antibiotics) (Verified Allergy, Unknown, 11/11/12) acetaminophen (Unverified Allergy, Unknown, 03/26/14) niacin (Verified Allergy, Unknown, 09/19/11) Uncoded Allergies: IV CONTRAST (Allergy, Unknown, 11/11/12) Home Medications Albuterol Sulfate 8.5 Gm Aer.w.adap, 2 PUFF IH QID PRN for SHORTNESS OF BREATH, (Reported) Amlodipine Besylate 10 Mg Tablet, 10 MG PO HS, (Reported) Ascorbic Acid 500 Mg Tablet, 500 MG PO DAILY, (Reported) Calcium Carbonate/Vitamin D3 1 Each Tablet, 1 TAB PO DAILY, (Reported) Cefdinir 300 Mg Capsule, 300 MG PO BID, #20 Prescribed by: STANLEY ALTAMIRANO on 03/06/172233 Fluticasone Propionate 16 Gm Naspr, 2 SPRAYS NA BID PRN for ALLERGIES, (Reported ) Gabapentin 100 Mg Cap, 100 MG PO TID, (Reported) Lisinopril 20 Mg Tab, 20 MG PO DAILY, (Reported) Metoprolol Succinate 200 Mg Tab.sr.24h, 200 MG PO HS, (Reported) Multivitamins 1 Each Capsule, 1 TAB PO HS, (Reported) Ondansetron 4 Mg Tab.rapdis, 4 MG PO Q4H, #10 Prescribed by: STANLEY ALTAMIRANO on 03/06/172232 Simvastatin 10 Mg Tab, 10 MG PO HS, (Reported) Tramadol HCl 50 Mg Tablet, 50 MG PO QID, #60 Prescribed by: BRITNEY NICHOLS on 12/03/15 1245 Tramadol HCl 50 Mg Tablet, 50 MG PO Q4H, #20 Prescribed by: STANLEY ALTAMIRANO on 03/06/17 8744 Constitutional: no symptoms reported Respiratory: no symptoms reported Cardiovascular: no symptoms reported Gastrointestinal: see HPI, abdominal pain, constipation, loss of appetite, nausea, No vomiting Genitourinary: see HPI, pain : No Musculoskeletal: see HPI, back pain Skin: no symptoms reported Psychiatric/Neurological: No Symptoms Reported Hematologic/Lymphatic: No Symptoms Reported Immunological/Allergic: no symptoms reported Past Makzsvq-Wjirll-Wjjytg Hx Patient Social History Alcohol Use: Denies Use Recreational Drug Use: No Smoking Status: Former Smoker (1 PPD, QUIT 2009) Former Smoker, Quit: May 07, 2009 Recent Foreign Travel: No Contact w/Someone Who Travel: No Recent Hopitalizations: No Immunizations Up To Date Tetanus Booster (TDap): Less than 5yrs Date of Pneumonia Vaccine: Jan 05, 2011 Date of Influenza Vaccine: Feb 05, 2020 Seasonal Allergies Seasonal Allergies: No Surgeries History of Surgeries: Yes (VASCULAR STENTS TO BOTH LEGS, BOTH KIDNEYS, AND HAS STENT IN ABDOMINAL AORTIC ANEURYSM; CARDIAC CATHS X 2-NO INTERVENTION) Surgeries: Adenoidectomy, Cardiac, Ear Surgery, Tonsillectomy, Vascular Surgery Respiratory History of Respiratory Disorde: Yes Respiratory Disorders: Asthma, COPD Cardiovascular History of Cardiac Disorders: Yes (AAA --S/P STENTING; STENTS IN BILATERAL RENAL ARTERIES, AND STENTS IN BOTH LEGS) Cardiac Disorders: Aneurysm, High Cholesterol, Hypertension, Peripheral Vascular Neurological History of Neurological Disord: Yes Neurological Disorders: Neuropathy Reproductive System Hx Reproductive Disorders: Yes Sexually Transmitted Disease: Yes (GONORRHEA BACK IN HER 20'S) 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 Genitourinary History of Genitourinary Disor: Yes (RENAL ARTERY STENOSIS; ON THE RIGHT KIDNEY IS FUNCTIONING--PT STATES LEFT KIDNEY IS "") Genitourinary Disorders: Renal Failure, UTI-Chronic Gastrointestinal History of Gastrointestinal Di: Yes Gastrointestinal Disorders: Gastroesophageal Reflux Musculoskeletal History of Musculoskeletal Dis: Yes Musculoskeletal Disorders: Arthritis, Fibromyalgia Endocrine History of Endocrine Disorders: Yes (DIET CONTROLLED DM; OBESITY) Endocrine Disorders: Diabetes, Non-Insulin dep HEENT HEENT Disorders: Glaucoma Loss of Vision: Left Cancer History of Cancer: No Psychosocial History of Psychiatric Problem: No Integumentary History of Skin or Integumenta: No Blood Transfusions History of Blood Disorders: Yes Adverse Reaction to a Blood Tr: No Family Medical History Family Medial History: Patient reports no known family medical history. Physical Exam Vital Signs Vital Sign - Last 12Hours 03/06/17 20:46 Temp 98.6 Pulse 78 Resp 18 B/P (MAP) 174/101 Pulse Ox 98 Capillary Refill : General Appearance: No Apparent Distress, Obese HEENT: PERRL/EOMI, Other (POOR DENTITION,MANY MISSING TEETH) Neck: Full Range of Motion, Normal Inspection, Non Tender, Supple, JVD Respiratory: Chest Non Tender, Normal Breath Sounds, No Accessory Muscle Use, No Respiratory Distress Cardiovascular: Regular Rate, Rhythm, No Edema, No JVD, No Murmur, Normal Peripheral Pulses Gastrointestinal: Normal Bowel Sounds, No Organomegaly, No Pulsatile Mass, Soft , Tenderness (DIFFUSE MID AND LOWER ABDOMINAL TENDERNESS) Back: CVA Tenderness (L), CVA Tenderness (R), Other (DIFFUSE LOWER BACK TENDERNESS) Extremity: Normal Capillary Refill, Normal Inspection, Normal Range of Motion, Non Tender, No Calf Tenderness, No Pedal Edema Neurologic/Psychiatric: Alert, Oriented x3, No Motor/Sensory Deficits, Normal Mood/Affect, director script II-XII Norm as Tested Skin: Normal Color, Warm/Dry Progress/Results/Core Measures Results/Orders Lab Results Laboratory Tests Test 03/06/17 20:50 03/06/17 21:55 Range/Units White Blood Count 9.4 4.3-11.0 10^3/uL Red Blood Count 4.04 L 4.35-5.85 10^6/uL Hemoglobin 12.4 11.5-16.0 G/DL Hematocrit 38 35-52 % Mean Corpuscular Volume 94 80-99 FL Mean Corpuscular Hemoglobin 31 25-34 PG Mean Corpuscular Hemoglobin Concent 33 32-36 G/DL Red Cell Distribution Width 13.5 10.0-14.5 % Platelet Count 217 130-400 10^3/uL Mean Platelet Volume 10.7 H 7.4-10.4 FL Neutrophils (%) (Auto) 73 42-75 % Lymphocytes (%) (Auto) 19 12-44 % Monocytes (%) (Auto) 7 0-12 % Eosinophils (%) (Auto) 1 0-10 % Basophils (%) (Auto) 0 0-10 % Neutrophils # (Auto) 6.9 1.8-7.8 X 10^3 Lymphocytes # (Auto) 1.8 1.0-4.0 X 10^3 Monocytes # (Auto) 0.6 0.0-1.0 X 10^3 Eosinophils # (Auto) 0.1 0.0-0.3 10^3/uL Basophils # (Auto) 0.0 0.0-0.1 10^3/uL Sodium Level 137 135-145 MMOL/L Potassium Level 3.8 3.6-5.0 MMOL/L Chloride Level 102 98-107 MMOL/L Carbon Dioxide Level 22 21-32 MMOL/L Anion Gap 13 5-14 MMOL/L Blood Urea Nitrogen 9 7-18 MG/DL Creatinine 1.31 H 0.60-1.30 MG/DL Estimat Glomerular Filtration Rate 42 BUN/Creatinine Ratio 7 Glucose Level 122 H 70-105 MG/DL Calcium Level 9.8 8.5-10.1 MG/DL Total Bilirubin 0.7 0.1-1.0 MG/DL Aspartate Amino Transf (AST/SGOT) 20 5-34 U/L Alanine Aminotransferase (ALT/SGPT) 22 0-55 U/L Alkaline Phosphatase 78 40-136 U/L Total Protein 8.2 6.4-8.2 GM/DL Albumin 4.6 H 3.2-4.5 GM/DL Amylase Level 32 25-125 U/L Lipase 17 8-78 U/L Urine Color YELLOW Urine Clarity CLEAR Urine pH 5 5-9 Urine Specific [place] 1.015 L 1.016-1.022 Urine Protein 4+ NEGATIVE Urine Glucose (UA) NEGATIVE NEGATIVE Urine Ketones NEGATIVE NEGATIVE Urine Nitrite POSITIVE H NEGATIVE Urine Bilirubin NEGATIVE NEGATIVE Urine Urobilinogen NORMAL NORMAL MG/DL Urine Leukocyte Esterase 1+ H NEGATIVE Urine RBC (Auto) 1+ H NEGATIVE Urine RBC 2-5 H /HPF Urine WBC 25-50 H /HPF Urine Crystals NONE /LPF Urine Bacteria FEW H /HPF Urine Casts NONE /LPF Urine Mucus NEGATIVE /LPF Urine Culture Indicated YES My Orders Orders - STANLEY ALTAMIRANO DO Saline Lock/Iv-Start (03/06/17 20:49) Amylase (03/06/17 20:49) Cbc With Automated Diff (03/06/17 20:49) Comprehensive Metabolic Panel (03/06/17 20:49) Lipase (03/06/17 20:49) Ua Culture If Indicated (03/06/17 20:49) Ondansetron Injection (Zofran Injectio (03/06/17 21:00) Saline Lock/Iv-Start (03/06/17 21:27) Ns Iv 1000 Ml (Sodium Chloride 0.9%) (03/06/17 21:27) Ct Abdomen/Pelvis Wo (03/06/17 21:35) Urine Culture (03/06/17 21:55) Ceftriaxone Injection (Rocephin Injectio (03/06/17 22:30) Fentanyl Injection (Sublimaze Injection (03/06/17 22:17) Ceftriaxone Injection (Rocephin Injectio (03/06/17 22:30) Ns (Ivpb) (Sodium Chloride 0.9% Ivpb Bag (03/06/17 22:31) Fentanyl Injection (Sublimaze Injection (03/06/17 22:30) Medications Given in ED Current Medications Medications Dose Ordered Sig/Aramis Route Start Time Stop Time Status Last Admin Dose Admin Ceftriaxone Sodium 1000 mg/ Sodium Chloride 50 ml @ 100 mls/hr ONCE ONCE IV 03/06/17 22:30 03/06/17 22:58 DC 03/06/17 22:43 100 MLS/HR Ondansetron HCl 4 mg ONCE ONCE IVP 03/06/17 21:00 03/06/17 21:02 DC 03/06/17 21:01 4 MG Sodium Chloride 1,000 ml @ 0 mls/hr Q0M ONCE IV 03/06/17 21:27 03/06/17 21:28 DC 03/06/17 21:33 0 MLS/HR Vital Signs/I&O Vital Sign - Last 12Hours 03/06/17 03/06/17 20:46 22:58 Temp 98.6 98.6 Pulse 78 78 Resp 18 18 B/P (MAP) 174/101 Pulse Ox 98 98 Progress Note : Progress Note SYMPTOMS IMPROVED AT DISMISSAL Diagnostic Imaging Comments CT ABDOMEN/PELVIS--NO ACUTE PROCESS, PER RADIOLOGIST REPORT @ 2220 Reviewed: Reviewed by Me Departure Impression Impression: Primary Impression: UTI (urinary tract infection) Additional Impression: Chronic renal disease Disposition: HOME, SELF-CARE Condition: Improved Departure-Patient Inst. Referrals: WHIT LOVELL DO (PCP) Primary Care Physician [facility] (Family) Primary Care Physician Patient Instructions: Urinary Tract Infection, Adult (DC) Add. Discharge Instructions: LOTS OF CLEAR LIQUIDS--NO COFFEE, POP OR TEA FOLLOW UP WITH [facility] IN 2-3 DAYS IF NO BETTER Scripts Tramadol HCl (Ultram) 50 Mg Tablet 50 MG PO Q4H, #20 TAB Prov: STANLEY ALTAMIRANO DO 03/06/17 Cefdinir (Cefdinir) 300 Mg Capsule 300 MG PO BID for FOR INFECTION, #20 CAP Prov: STANLEY ALTAMIRANO DO 03/06/17 Ondansetron (Zofran Odt) 4 Mg Tab.rapdis 4 MG PO Q4H for Nausea/Vomiting, #10 TAB Prov: STANLEY ALTAMIRANO DO 03/06/17 STANLEY ALTAMIRANO DO Mar 06, 2017 20:42
[2017-03-06] MEDS ORDERED: ONDANSETRON 4 MG/2 ML (SDV) Z0FRAN IVP ONE (21:00)
[2017-03-06 21:04] LABS: BASOPHILS % (AUTO) 0 % (0-10); EOSINOPHILS # (AUTO) 0.1 10^3/uL (0.0-0.3); EOSINOPHILS % (AUTO) 1 % (0-10); LYMPHOCYTES # (AUTO) 1.8 X 10^3 (1.0-4.0); LYMPHOCYTES % (AUTO) 19 % (12-44); MEAN CORPUSCULAR HEMOGLOBIN 31 PG (25-34); MEAN CORPUSCULAR HGB CONC 33 G/DL (32-36); MEAN CORPUSCULAR VOLUME 94 FL (80-99); MEAN PLATELET VOLUME 10.7 FL (7.4-10.4); MONOCYTES # (AUTO) 0.6 X 10^3 (0.0-1.0); MONOCYTES % (AUTO) 7 % (0-12); NEUTROPHILS # (AUTO) 6.9 X 10^3 (1.8-7.8); NEUTROPHILS % (AUTO) 73 % (42-75); PLATELET COUNT 217 10^3/uL (130-400); RED BLOOD COUNT 4.04 10^6/uL (4.35-5.85); RED CELL DISTRIBUTION WIDTH 13.5 % (10.0-14.5); WHITE BLOOD COUNT 9.4 10^3/uL (4.3-11.0)
[2017-03-06 21:27] LABS: ALBUMIN 4.6 GM/DL (3.2-4.5); BILIRUBIN,TOTAL 0.7 MG/DL (0.1-1.0); CALCIUM 9.8 MG/DL (8.5-10.1); CREATININE SERUM 1.31 MG/DL (0.60-1.30); POTASSIUM 3.8 MMOL/L (3.6-5.0); TOTAL PROTEIN 8.2 GM/DL (6.4-8.2)
[2017-03-06] MEDS ORDERED: NS IV 1000 ML 1,000 ML IV ONE (21:27)
--- NOTE | 2017-03-06 22:00 | Diagnostic Imaging Report ---
PROCEDURE: CT abdomen and pelvis without contrast. TECHNIQUE: Multiple contiguous axial images were obtained through the abdomen and pelvis without the use of intravenous contrast. INDICATION: Nausea and vomiting. History of the stomach stent. COMPARISON with 05/26/2016. FINDINGS: The lung bases are clear. The liver appears normal. The gallbladder and bile ducts are normal. The pancreas and spleen are normal. The adrenal glands are normal. The left kidney is atrophic. The right kidney appears normal. There are bilateral renal artery stents. There is endoluminal stent graft within the aorta. Iliac limbs are in good position. There is no evidence of residual kar[place] aneurysmal sac of the aorta. No intra-abdominal adenopathy of pathologic size is demonstrated. The stomach appears normal with small hiatal hernia present. Small bowel is not distended. The colon shows very little stool or gas present. The appendix is not dilated. There is no evidence of diverticulitis. The uterus is not enlarged. The bladder is normal. There is no free air or free fluid. The bone windows are normal. IMPRESSION: 1. No acute intra-abdominal findings demonstrated. 2. Endoluminal stent-graft of the aorta with bilateral renal artery stents present. No evidence of residual karuk aneurysmal sac of the aorta demonstrated. No significant change has occurred when compared with the previous exam. Dictated by: Dictated on workstation # [id number]
[2017-03-06 22:15] LABS: BILIRUBIN,URINE NEGATIVE (NEGATIVE); KETONES,URINE NEGATIVE (NEGATIVE); LEUKOCYTE ESTERASE ,URINE 1+ (NEGATIVE); NITRITE,URINE POSITIVE (NEGATIVE); PH,URINE 5 (5-9); PROTEIN,URINE 4+ (NEGATIVE); UROBILINOGEN,URINE NORMAL (NORMAL); WBC,URINE 25-50 /HPF
[2017-03-06] MEDS ORDERED: fentaNYL INJECTION 100 MCG/2 ML AMP IVP STA (22:17)
[2017-03-06] MEDS ORDERED: fentaNYL INJECTION 100 MCG/2 ML AMP ONE (22:30)
[2017-03-06] MEDS ORDERED: cefTRIAXone 1 GM (ROCEPHIN) VIAL ONE (22:30)
[2017-03-06] MEDS ORDERED: cefTRIAXone INJECTION 1,000 MG in NS (IVPB) 50 ML IV ONE (22:30)
[2017-03-06] MEDS ORDERED: NS (IVPB) 50 ML ONE (22:31)
[2017-03-06] MEDS ORDERED: TRAM-42 PO ×2 (22:32→22:34)
[2017-03-06] MEDS ORDERED: CEFD300C3 PO ×2 (22:32→22:34)
[2017-03-06] MEDS ORDERED: ONDA4TAB8 PO (22:33)
[2017-03-06 22:58] VITALS: BP 174/101
== END 2017-03-06 22:58 | disposition home or self-care (01) ==
LOC: EDUNIT# 20:31 → ER 20:33
DX: E11.22 Type 2 diabetes mellitus with diabetic chronic kidney disease (principal); I12.9 Hypertensive chronic kidney disease with stage 1 through stage 4 chronic kidney disease, or unspecified chronic kidney disease; N18.9 Chronic kidney disease, unspecified; N39.0 Urinary tract infection, site not specified; K21.9 Gastro-esophageal reflux disease without esophagitis; E78.00 Pure hypercholesterolemia, unspecified; Z90.89 Acquired absence of other organs; Z87.891 Personal history of nicotine dependence
CPT/HCPCS: 36415; 74176; 80053; 81000; 82150; 83690; 85025; 87088; 87186; 96361; 96374; 96375

== ENCOUNTER 2017-04-25 07:57 | Emergency (ER) | payer BC ==
[~2017-04-25] VITALS: Ht 160 cm; Wt 99.8 kg
[~2017-04-25 07:57] MED LIST changes: +TRAM-42 PO
[2017-04-25] MEDS ORDERED: FAMOTIDINE 20 MG (PEPCID) TABLET PO STA (08:09)
[2017-04-25] MEDS ORDERED: ONDANSETRON 4 MG (ZOFRAN) ORAL DISSOLVE TAB SL STA (08:09)
[2017-04-25] MEDS ORDERED: HYOSCYAMINE 0.125 MG (LEVSIN) TAB SL ONE (08:15)
[2017-04-25] MEDS ORDERED: VIT1TABL83 PO (08:20)
[2017-04-25 08:41] LABS: BASOPHILS % (AUTO) 0 % (0-10); EOSINOPHILS # (AUTO) 0.1 10^3/uL (0.0-0.3); EOSINOPHILS % (AUTO) 3 % (0-10); LYMPHOCYTES # (AUTO) 1.3 X 10^3 (1.0-4.0); LYMPHOCYTES % (AUTO) 24 % (12-44); MEAN CORPUSCULAR HEMOGLOBIN 31 PG (25-34); MEAN CORPUSCULAR HGB CONC 33 G/DL (32-36); MEAN CORPUSCULAR VOLUME 93 FL (80-99); MEAN PLATELET VOLUME 10.9 FL (7.4-10.4); MONOCYTES # (AUTO) 0.3 X 10^3 (0.0-1.0); MONOCYTES % (AUTO) 6 % (0-12); NEUTROPHILS # (AUTO) 3.6 X 10^3 (1.8-7.8); NEUTROPHILS % (AUTO) 67 % (42-75); PLATELET COUNT 176 10^3/uL (130-400); RED BLOOD COUNT 3.91 10^6/uL (4.35-5.85); RED CELL DISTRIBUTION WIDTH 13.8 % (10.0-14.5); WHITE BLOOD COUNT 5.4 10^3/uL (4.3-11.0)
--- NOTE | 2017-04-25 08:49 | ED Abdominal Pain ---
General Chief Complaint: Abdominal/GI Problems Stated Complaint: DIAEA Nursing Triage Note: C/O DIARRHEA ET VOMITING. STATES VOMITING STARTED TODAY BECAUSE OF THE ACID TASTE IN HER MOUTH. PT. STATES SHES HAD DIARRHEA FOR @5 DAYS. HAS NOT TAKEN ANY MEDS D/T 1 KIDNEY. Sepsis Screen: No Definite Risk Source of Information: Patient Exam Limitations: No Limitations History of Present Illness Time Seen By Provider: 08:20 Initial Comments Here with report of diarrhea. States that she is belching's foul-smelling gas and is having diarrhea that is yellow and watery. She reports that she has only one kidney. She reports that she has had a urinary tract infection and has been on antibiotics a few times in the last month or so. Last antibiotic to Cipro last week. Is able to drink fluids without difficulty. Denies any significant pain. No blood in her urine or stool. Timing/Duration: 5-6 Days Severity/Quality: Mild, Cramping Location: Generalized Abdomen Radiation: No Radiation Activities at Onset: None Modifying Factors: Improves With Defecating Associated Symptoms: No Back Pain, No Chest Pain, No Fever/Chills, No Fatigue, Nausea/Vomiting, No Shortness of Air, No Swelling/Mass in Abdomen, No Weakness Allergies and Home Medications Allergies Coded Allergies: NSAIDS (Non-Steroidal Anti-Inflamma (Verified Allergy, Unknown, 11/11/12) Sulfa (Sulfonamide Antibiotics) (Verified Allergy, Unknown, 11/11/12) acetaminophen (Unverified Allergy, Unknown, 03/26/14) niacin (Verified Allergy, Unknown, 09/19/11) Uncoded Allergies: IV CONTRAST (Allergy, Unknown, 11/11/12) Home Medications Albuterol Sulfate 8.5 Gm Aer.w.adap, 2 PUFF IH QID PRN for SHORTNESS OF BREATH, (Reported) Amlodipine Besylate 10 Mg Tablet, 10 MG PO HS, (Reported) Ascorbic Acid 500 Mg Tablet, 500 MG PO DAILY, (Reported) Calcium Carbonate/Vitamin D3 1 Each Tablet, 1 TAB PO DAILY, (Reported) Fluticasone Propionate 16 Gm Naspr, 2 SPRAYS NA BID PRN for ALLERGIES, (Reported ) Gabapentin 100 Mg Cap, 100 MG PO TID, (Reported) Lisinopril 20 Mg Tab, 20 MG PO DAILY, (Reported) Metoprolol Succinate 200 Mg Tab.sr.24h, 200 MG PO HS, (Reported) Multivitamins 1 Each Capsule, 1 TAB PO HS, (Reported) Ondansetron 4 Mg Tab.rapdis, 4 MG PO Q4H, #10 Prescribed by: STANLEY ALTAMIRANO on 03/06/17 2233 Simvastatin 10 Mg Tab, 10 MG PO HS, (Reported) Tramadol HCl 50 Mg Tablet, 50 MG PO QID, #60 Prescribed by: BRITNEY NICHOLS on 12/03/15 1245 Tramadol HCl 50 Mg Tablet, 50 MG PO Q4H, #20 Prescribed by: STANLEY ALTAMIRANO on 03/06/17 2234 Vit A,C & E/Lutein/Minerals 1 Each Tablet, 1 EACH PO DAILY, (Reported) Review of Systems Constitutional: see HPI, No chills, No fever EENTM: No Symptoms Reported Respiratory: No Symptoms Reported Cardiovascular: No Symptoms Reported Gastrointestinal: See HPI, Abdominal Pain, Diarrhea, Nausea, Vomiting Genitourinary: No Symptoms Reported Musculoskeletal: no symptoms reported Skin: no symptoms reported Psychiatric/Neurological: No Symptoms Reported All Other Systems Reviewed Negative Unless Noted: Yes Past Corafwk-Yymkgd-Yilkjo Hx Patient Social History Alcohol Use: Denies Use Recreational Drug Use: No Smoking Status: Former Smoker Former Smoker, Quit: May 07, 2009 Recent Foreign Travel: No Contact w/Someone Who Travel: No Recent Infectious Disease Expo: No Recent Hopitalizations: No Immunizations Up To Date Tetanus Booster (TDap): Less than 5yrs Date of Pneumonia Vaccine: Jan 05, 2011 Date of Influenza Vaccine: Feb 04, 2017 Seasonal Allergies Seasonal Allergies: No Surgeries History of Surgeries: Yes Surgeries: Adenoidectomy, Cardiac, Ear Surgery, Tonsillectomy, Vascular Surgery Respiratory History of Respiratory Disorde: Yes Respiratory Disorders: Asthma, COPD Cardiovascular History of Cardiac Disorders: Yes Cardiac Disorders: Aneurysm, High Cholesterol, Hypertension, Peripheral Vascular Neurological History of Neurological Disord: Yes Neurological Disorders: Neuropathy Reproductive System Hx Reproductive Disorders: Yes Sexually Transmitted Disease: Yes (GONORRHEA BACK IN HER 20'S) 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 Genitourinary History of Genitourinary Disor: Yes Genitourinary Disorders: Renal Failure, UTI-Chronic Gastrointestinal History of Gastrointestinal Di: Yes Gastrointestinal Disorders: Gastroesophageal Reflux Musculoskeletal History of Musculoskeletal Dis: Yes Musculoskeletal Disorders: Arthritis, Fibromyalgia Endocrine History of Endocrine Disorders: Yes (DIET CONTROLLED DM; OBESITY) Endocrine Disorders: Diabetes, Non-Insulin dep HEENT HEENT Disorders: Glaucoma Loss of Vision: Left Cancer History of Cancer: No Psychosocial History of Psychiatric Problem: No Integumentary History of Skin or Integumenta: No Blood Transfusions History of Blood Disorders: Yes Adverse Reaction to a Blood Tr: No Reviewed Nursing Assessment Reviewed/Agree w Nursing PMH: Yes Family Medical History Significant Family History: No Pertinent Family Hx Family Medial History: Patient reports no known family medical history. Physical Exam Vital Signs VS - Last 72 Hours, by Label 04/25/17 08:11 Temp 96.8 Pulse 69 Resp 18 B/P (MAP) 168/83 (111) Pulse Ox 96 Capillary Refill : Less Than 3 Seconds General Appearance: WD/WN, no apparent distress HEENT: PERRL/EOMI, pharynx normal Neck: full range of motion, supple Respiratory: lungs clear, normal breath sounds Cardiovascular: regular rate, rhythm, no murmur Gastrointestinal: normal bowel sounds, non tender, soft Extremities: non-tender, normal inspection Back: normal inspection, no CVA tenderness, no vertebral tenderness Neurologic/Psychiatric: alert, oriented x 3 Skin: normal color, warm/dry Progress/Results/Core Measures Results/Orders Lab Results Laboratory Tests Test 04/25/17 08:31 04/25/17 08:45 Range/Units White Blood Count 5.4 4.3-11.0 10^3/uL Red Blood Count 3.91 L 4.35-5.85 10^6/uL Hemoglobin 12.1 11.5-16.0 G/DL Hematocrit 37 35-52 % Mean Corpuscular Volume 93 80-99 FL Mean Corpuscular Hemoglobin 31 25-34 PG Mean Corpuscular Hemoglobin Concent 33 32-36 G/DL Red Cell Distribution Width 13.8 10.0-14.5 % Platelet Count 176 130-400 10^3/uL Mean Platelet Volume 10.9 H 7.4-10.4 FL Neutrophils (%) (Auto) 67 42-75 % Lymphocytes (%) (Auto) 24 12-44 % Monocytes (%) (Auto) 6 0-12 % Eosinophils (%) (Auto) 3 0-10 % Basophils (%) (Auto) 0 0-10 % Neutrophils # (Auto) 3.6 1.8-7.8 X 10^3 Lymphocytes # (Auto) 1.3 1.0-4.0 X 10^3 Monocytes # (Auto) 0.3 0.0-1.0 X 10^3 Eosinophils # (Auto) 0.1 0.0-0.3 10^3/uL Basophils # (Auto) 0.0 0.0-0.1 10^3/uL Sodium Level 140 135-145 MMOL/L Potassium Level 3.6 3.6-5.0 MMOL/L Chloride Level 110 H 98-107 MMOL/L Carbon Dioxide Level 21 21-32 MMOL/L Anion Gap 9 5-14 MMOL/L Blood Urea Nitrogen 14 7-18 MG/DL Creatinine 1.06 0.60-1.30 MG/DL Estimat Glomerular Filtration Rate 54 BUN/Creatinine Ratio 13 Glucose Level 118 H 70-105 MG/DL Calcium Level 9.3 8.5-10.1 MG/DL Total Bilirubin 0.4 0.1-1.0 MG/DL Aspartate Amino Transf (AST/SGOT) 26 5-34 U/L Alanine Aminotransferase (ALT/SGPT) 37 0-55 U/L Alkaline Phosphatase 85 40-136 U/L Total Protein 7.4 6.4-8.2 GM/DL Albumin 4.3 3.2-4.5 GM/DL Lipase 39 8-78 U/L Urine Color YELLOW Urine Clarity CLEAR Urine pH 6 5-9 Urine Specific [place] 1.010 L 1.016-1.022 Urine Protein NEGATIVE NEGATIVE Urine Glucose (UA) NEGATIVE NEGATIVE Urine Ketones NEGATIVE NEGATIVE Urine Nitrite NEGATIVE NEGATIVE Urine Bilirubin NEGATIVE NEGATIVE Urine Urobilinogen NORMAL NORMAL MG/DL Urine Leukocyte Esterase NEGATIVE NEGATIVE Urine RBC (Auto) NEGATIVE NEGATIVE Urine RBC NONE /HPF Urine WBC NONE /HPF Urine Squamous Epithelial Cells 0-2 /HPF Urine Crystals NONE /LPF Urine Bacteria TRACE /HPF Urine Casts NONE /LPF Urine Mucus NEGATIVE /LPF Urine Culture Indicated NO Micro Results Microbiology 04/25/17 C. difficile GDH Antigen & Toxins - Final, Resulted 04/25/17 Stool Culture, Resulted Pending My Orders Orders - DIMAS GARCIA MD Cbc With Automated Diff (04/25/17 08:09) Comprehensive Metabolic Panel (04/25/17 08:09) Lipase (04/25/17 08:09) Ua Culture If Indicated (04/25/17 08:09) Ondansetron Oral Dissolve Tab (Zofran (04/25/17 08:09) Famotidine Tablet (Pepcid Tablet) (04/25/17 08:09) Hyoscyamine Sl Tablet (Levsin Sl Tablet) (04/25/17 08:15) Stool Culture (04/25/17 08:38) C Difficile Ag + Toxin A/B. (04/25/17 08:38) Medications Given in ED Current Medications Medications Dose Ordered Sig/Aramis Route Start Time Stop Time Status Last Admin Dose Admin Hyoscyamine Sulfate 0.125 mg ONCE ONCE SL 04/25/17 08:15 04/25/17 08:16 DC 04/25/17 08:30 0.125 MG Vital Signs/I&O Vital Sign - Last 12Hours 04/25/17 08:11 Temp 96.8 Pulse 69 Resp 18 B/P (MAP) 168/83 (111) Pulse Ox 96 Blood Pressure Mean: 111 Progress Note : Progress Note Seen and evaluated. Labs and UA ordered. Levsin 0.125 mg by mouth, Zofran 4 mg by mouth and Pepcid 20 mg by mouth ordered. Monitor patient. Stool sample collected for evaluation for C. difficile and culture. 1105: C. difficile toxin is negative. Patient is doing better. We will continue outpatient therapy. Discharged home with return precautions. Patient verbalize understanding instructions and agreement with plan. Departure Impression Impression: Primary Impression: Diarrhea Qualified Codes: R19.7 - Diarrhea, unspecified Additional Impression: Nausea alone Disposition: 01 HOME, SELF-CARE Condition: Improved Departure-Patient Inst. Decision time for Depature: 11:08 Referrals: WHIT LOVELL DO (PCP) Primary Care Physician [facility] AMIN (Family) Primary Care Physician Patient Instructions: Diarrhea in Adolescents and Adults Add. Discharge Instructions: All discharge instructions reviewed with patient and/or family. Voiced understanding. Drink plenty of fluids but taking small amounts frequently. Take medications as directed. Follow-up with your DrGregory in a few days for recheck. Return for worse pain, fever, vomiting, weakness, breathing problems or other concerns as needed. Scripts Hyoscyamine Sulfate (Levsin-Sl) 0.125 Mg Tab.subl 0.125 MG SL Q4H Y for CRAMPS, #10 TAB 0 Refills Prov: DIMAS GARCIA MD 04/25/17 Ondansetron (Ondansetron Odt) 4 Mg Tab.rapdis 4 MG PO Q6H Y for NAUSEA/VOMITING, #8 TAB 0 Refills Prov: DIMAS GARCIA MD 04/25/17 DIMAS GARCIA MD Apr 25, 2017 08:49
[2017-04-25 08:56] LABS: BILIRUBIN,URINE NEGATIVE (NEGATIVE); KETONES,URINE NEGATIVE (NEGATIVE); LEUKOCYTE ESTERASE ,URINE NEGATIVE (NEGATIVE); NITRITE,URINE NEGATIVE (NEGATIVE); PH,URINE 6 (5-9); PROTEIN,URINE NEGATIVE (NEGATIVE); UROBILINOGEN,URINE NORMAL (NORMAL)
[2017-04-25 09:06] LABS: ALBUMIN 4.3 GM/DL (3.2-4.5); BILIRUBIN,TOTAL 0.4 MG/DL (0.1-1.0); CALCIUM 9.3 MG/DL (8.5-10.1); CREATININE SERUM 1.06 MG/DL (0.60-1.30); POTASSIUM 3.6 MMOL/L (3.6-5.0); TOTAL PROTEIN 7.4 GM/DL (6.4-8.2)
[2017-04-25 09:09] LABS: SQUAMOUS EPITHELIAL CELL,UR 0-2 /HPF
[2017-04-25] MEDS ORDERED: HYOS0.1283 SL (11:10)
[2017-04-25] MEDS ORDERED: ONDA4TAB11 PO (11:10)
[2017-04-25 11:15] VITALS: BP 160/85
== END 2017-04-25 11:15 | disposition home or self-care (01) ==
LOC: EDUNIT# 07:57 → ER 07:59
DX: R19.7 Diarrhea, unspecified (principal); R11.0 Nausea; N39.0 Urinary tract infection, site not specified; J44.9 Chronic obstructive pulmonary disease, unspecified; E78.00 Pure hypercholesterolemia, unspecified; I10 Essential (primary) hypertension; K21.9 Gastro-esophageal reflux disease without esophagitis; E11.40 Type 2 diabetes mellitus with diabetic neuropathy, unspecified; E11.51 Type 2 diabetes mellitus with diabetic peripheral angiopathy without gangrene; E66.9 Obesity, unspecified; Z87.891 Personal history of nicotine dependence; Z90.89 Acquired absence of other organs; Z68.39 Body mass index [BMI] 39.0-39.9, adult
CPT/HCPCS: 36415; 80053; 81000; 83690; 85025; 87045; 87046; 87324; 87449; 99283

== ENCOUNTER 2018-02-08 02:05 | Observation (INO) | payer BC ==
[~2018-02-08] VITALS: Ht 165.1 cm; Wt 130.8 kg
[2018-02-08] VITALS (16 sets, daily range): BP systolic 136–188; BP diastolic 63–102
[~2018-02-08 02:05] MED LIST changes: +ONDA4TAB11 PO; +VIT1TABL83 PO
[2018-02-08] MEDS ORDERED: ASPIRIN 81 MG CHEW (CHILDREN'S ASA) ONE (02:11)
[2018-02-08] MEDS ORDERED: NITROGLYCERIN 0.4 MG SL TABS BTL 25'S SL ONE (02:11)
--- OUTSIDE RECORDS SUMMARY | 2018-02-08 02:13 | XMS REPORT ---
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 Name Role Phone MARKUS BALDWIN Unavailable PROBLEMS Type Condition ICD9-CM Code [id number] Code Onset Dates Condition Status SNOMED Code Problem Stenosis of right renal artery I70.1 Active [id number] Problem Seasonal allergic rhinitis, unspecified allergic rhinitis trigger J30.2 Active 054976171 Problem Abdominal aortic aneurysm (AAA) without rupture I71.4 Active 50392429 Problem Mixed hyperlipidemia E78.2 Active 259429683 Problem Other chronic pain G89.29 Active 14942731 Problem PVD (peripheral vascular disease) I73.9 Active 575416643 Problem Prediabetes R73.03 Active 514384284 Problem Arthritis of knee M17.10 Active 501742863 Problem Renal artery stenosis I70.1 Active 489522498 Problem Peripheral vascular disease I73.9 Active 401491836 Problem Dysphagia, unspecified R13.10 Active 17481415 Problem Hepatic steatosis K76.0 Active 223942430 Problem Urinary, incontinence, stress female N39.3 Active 37775043 Problem Anemia of chronic disease D63.8 Active 790553635 Problem 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 494200516 Problem Chronic kidney disease, unspecified N18.9 Active 813204761 Problem Essential hypertension I10 Active 70322725 Problem Cervicalgia M54.2 Active [id number] Problem Gastroesophageal reflux disease without esophagitis K21.9 Active 056859824 ALLERGIES Substance Reaction Event Type Date Status T[place]turna Unknown Drug Allergy Dec, Active Niacin rash Drug Allergy Dec, Active Macrobid anaphylaxis Drug Allergy Dec, Active Iodine (IV contrast) Drug Allergy Dec, Active Ibuprofen (All NSAIDs) Drug Allergy Dec, Active Bactrim resp distress Drug Allergy Dec, Active ENCOUNTERS Encounter Location Date Diagnosis [facility] [id number] [place] [address] 38316- 4898 Dec, [facility] [address] [address]- [address]343 Dec, Essential hypertension I10 ; Chronic kidney disease, unspecified N18.9 ; Mixed hyperlipidemia E78.2 ; Tinea corporis B35.4 ; Right hip pain M25.551 and Acute pain of right knee M25.561 [facility] [address] 43972- 5047 16 Dec, 2017 Herpes zoster without complication B02.9 ; Dandruff L21.0 ; Diarrhea, unspecified type R19.7 and BMI 45.0-49.9, adult Z68.42 [facility] [place] [address] 28778- 1403 September, Chronic kidney disease, unspecified N18.9 ; Essential hypertension I10 ; Mixed hyperlipidemia E78.2 and BMI 45.0-49.9, adult Z68.42 [facility] [id number] [place] [address] 61796- 0526 September, [facility] [address] 02753- 8820 September, Essential hypertension I10 ; Chronic kidney disease, unspecified N18.9 ; Prediabetes R73.03 ; Low back pain M54.5 ; Other chronic pain G89.29 ; Arthritis of knee M17.10 ; Pure hyperglyceridemia E78.1 ; Anemia of chronic disease D63.8 and BMI 45.0-49.9, adult Z68.42 [facility] [id number] [place] [address] 55351- 7721 Aug, [facility] [address] 42217- 1308 Jul, Abdominal aortic aneurysm (AAA) without rupture I71.4 ; PVD (peripheral vascular disease) I73.9 ; Renal artery stenosis I70.1 and Essential hypertension I10 [facility] [place] [id number] [place] [address] 81562- 6307 30 May, 2017 Essential hypertension I10 ; Pure hyperglyceridemia E78.1 ; Abdominal aortic aneurysm (AAA) without rupture I71.4 ; Chronic kidney disease, unspecified N18.9 ; Gastroesophageal reflux disease without esophagitis K21.9 ; 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 ; Stenosis of right renal artery I70.1 ; Anemia of chronic disease D63.8 and Prediabetes R73.03 [place] [address] 26706- 7551 May, Tinea corporis B35.4 and Viral URI J06.9 [facility] [address] 80148- 4493 May, [place] [address] 38915- 0310 Apr, [place] [address] 80325- 1849 Apr, Cervical radiculopathy M54.12 [facility] [address] 427[address] -4417 Apr, Flank pain R10.9 and Acute pyelonephritis N10 [place] [address] 84107- 7044 Apr, [place] [address] 68022- 8727 Mar, [facility] [id number] [place] [address] 85826- 0968 Feb, Pain of right shoulder region M25.511 [place] [address] 68432- 3712 Feb, History of glaucoma Z86.69 ; Vision changes H53.9 ; Abdominal aortic aneurysm (AAA) without rupture I71.4 ; Xerosis of skin L85.3 and Pain in right shoulder M25.511 [facility] [id number] [place] [address] 52927- 9419 Feb, [facility] [address] 54192- 3805 Jan, Essential hypertension I10 ; Pure hyperglyceridemia E78.1 ; Chronic kidney disease, unspecified N18.9 ; Gastroesophageal reflux disease without esophagitis K21.9 ; 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 ; Stenosis of right renal artery I70.1 ; Anemia of chronic disease D63.8 ; Prediabetes R73.03 ; Pain of right shoulder region M25.511 and Homeless Z59.0 [place] [address] 92275- 9724 Jan, Neck pain M54.2 and Seasonal allergic rhinitis, unspecified allergic rhinitis trigger J30.2 [facility] [address] 65840- 1871 Dec, [facility] [address] 25864- 4140 Dec, [facility] [place] [id number] [place] [address] 67120- 7993 Dec, Blood glucose abnormal R73.09 ; Essential hypertension I10 ; Pure hyperglyceridemia E78.1 ; Chronic kidney disease, unspecified N18.9 ; Gastroesophageal reflux disease without esophagitis K21.9 ; 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 pylori infection A04.8 and Prediabetes R73.03 [facility] [id number] [place] [address] 14533 -5956 Oct, Seasonal allergic rhinitis, unspecified allergic rhinitis trigger J30.2 [facility] [place] [id number] [place] [address] 85306- 0332 September, Eustachian tube dysfunction, left H69.82 and Candidiasis of breast B37.89 [place] [id number] [place] [address] 87093- 6909 Jul, Blood glucose abnormal R73.09 ; Essential hypertension I10 ; Pure hyperglyceridemia E78.1 ; Chronic kidney disease, unspecified N18.9 ; Gastroesophageal reflux disease without esophagitis K21.9 ; 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 ; Abdominal aortic aneurysm (AAA) without rupture I71.4 ; Stenosis of right renal artery I70.1 ; Anemia of chronic disease D63.8 and Acute non-recurrent maxillary sinusitis J01.00 [place] [id number] [place] [address] 37144- 2354 Jun, Acute non-recurrent maxillary sinusitis J01.00 ; Acute mucoid otitis media of left ear H65.112 ; Nausea R11.0 and Fever and chills R50.9 [place] [id number] [place] [address] 55260- 6924 May, Acute right flank pain R10.9 [place] [id number] [place] [address] 01568- 2958 Apr, Acute nasopharyngitis J00 ; Pure hyperglyceridemia E78.1 and Chronic kidney disease, unspecified N18.9 [place] [id number] [place] [address] 89708- 5614 Apr, [place] [id number] [place] [address] 12075- 8854 Apr, Blood glucose abnormal R73.09 ; Essential hypertension I10 ; Pure hyperglyceridemia E78.1 ; Chronic kidney disease, unspecified N18.9 ; Gastroesophageal reflux disease without esophagitis K21.9 ; 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 ; Abdominal aortic aneurysm (AAA) without rupture I71.4 ; Stenosis of right renal artery I70.1 ; RUQ pain R10.11 and Anemia of chronic disease D63.8 [place] [id number] [place] [address] 94927- 2537 Mar, Blood glucose abnormal R73.09 [address] [address]- 3263 Mar, Cellulitis of right lower leg L03.115 [facility] [id number] [place] [address] 89501 -3412 Feb, [facility] [id number] [place] [address] 83322- 8592 Feb, Dysuria R30.0 and Upper respiratory tract infection, unspecified type J06.9 [facility] [id number] [place] [address] 54869- 0614 Jan, [place] [id number] [place] [address] 20810- 2369 Jan, [facility] [id number] [place] [address] 05827- 4115 Dec, [facility] [id number] [place] [address] 44577- 2094 Dec, Anemia of chronic disease D63.8 ; Essential hypertension I10 ; Pure hyperglyceridemia E78.1 ; Chronic kidney disease, unspecified N18.9 ; Gastroesophageal reflux disease without esophagitis K21.9 ; 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 and Pain in right knee M25.561 [place] [address] [place] [address] 45175- 4122 Dec, Left shoulder strain, subsequent encounter S46.912D ; Urinary frequency R35.0 ; Lung nodule, solitary R91.1 ; Essential hypertension I10 and Acute cystitis without hematuria N30.00 [place] [address] [place] [address] 85200- 4616 Nov, Left-sided chest wall pain R07.89 and Abnormal chest xray R93.8 [place] [id number] [place] [address] 53786- 4304 Nov, Pain of right lower extremity M79.604 ; Swelling of right lower extremity M79.89 ; Diarrhea, unspecified R19.7 ; Nausea with vomiting, unspecified R11.2 ; Left-sided chest wall pain R07.89 ; Chronic kidney disease, unspecified N18.9 ; Gastroesophageal reflux disease without esophagitis K21.9 and Other seasonal allergic rhinitis J30.2 [place] [id number] [place] [address] 23825- 0670 September, Essential hypertension I10 ; Chronic kidney disease, unspecified N18.9 ; Anemia of chronic disease D63.8 ; Pure hyperglyceridemia E78.1 ; Peripheral vascular disease I73.9 ; Abnormal glucose R73.09 ; 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 ; Gastroesophageal reflux disease without esophagitis K21.9 ; Allergic rhinitis J30.9 and Rash R21 [address] 41660- 3040 Aug, Abdominal pain R10.9 and Constipation K59.[address] 72408- 2212 Jul, Injury of toe on right foot S99.921A [place] [address] 53638- 6827 Jul, [address] 87325- 6822 Jul, Essential hypertension I10 ; Chronic kidney disease, unspecified N18.9 ; Anemia of chronic disease D63.8 ; Pure hyperglyceridemia E78.1 ; Peripheral vascular disease I73.9 ; Abnormal glucose R73.09 ; 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 ; Gastroesophageal reflux disease without esophagitis K21.9 and Allergic rhinitis J30.9 [place] [address] 38432- 4484 Jun, Low back pain M54.5 [place] [address] 54968- 9595 Jun, [place] [address] 79377- 3634 May, URI (upper respiratory infection) J06.9 [facility] [id number] [place] [address] 02973- 2977 15 Apr, 2015 Essential hypertension I10 [place] [address] 63121- 7800 10 Apr, 2015 Essential hypertension I10 ; Chronic kidney disease, unspecified N18.9 ; Anemia of chronic disease D63.8 ; Pure hyperglyceridemia E78.1 ; Peripheral vascular disease I73.9 ; Abnormal glucose R73.09 ; URI ( upper respiratory infection) J06.9 ; 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 ; Gastroesophageal reflux disease without esophagitis K21.9 and Cough R05 [place] [address] 60882- 2375 Mar, Flank pain R10.9 and URI (upper respiratory infection) J06.9 [place] [address] 53238- 4758 Mar, Right-sided low back pain without sciatica M54.5 and Hematuria, unspecified R31.9 [place] [address] 93596- 8914 Mar, Hypopigmentation L81.9 and Hyperpigmentation L81.9 [place] [address] 50804- 5119 Mar, [place] [id number] [place] [address] 98266- 6162 Mar, Acute cystitis with hematuria N30.01 [place] [id number] [place] [address] 83047- 2856 Mar, [place] [address] 00102- 6134 Feb, Furuncle L02.92 ; Hypopigmentation L81.9 ; Hyperpigmentation L81.9 ; Urinary frequency R35.0 ; Screening for malignant neoplasm of cervix Z12.4 ; Vaginal discharge N89.8 ; Urinary, incontinence, stress female N39.3 and Vaginal irritation N89.8 [place] [id number] [place] [address] 24144- 1334 Jan, Muscle spasm 728.85 ; Unspecified peripheral vascular disease 443.9 ; Benign essential hypertension 401.1 ; Chronic renal insufficiency 585.9 ; Chronic constipation 564.00 ; GERD (gastroesophageal reflux disease) 530.81 ; Hyperlipidemia 272.4 and Chronic leg pain 729.[address] 21951- 1469 Jan, Sinusitis 473.[address] 50199- 9849 Dec, [address] 93202- 7537 Dec, Acute bronchitis 466.[address] 43354- 4813 Dec, Acute bronchitis 466.0 [place] [address] 86120- 3310 Dec, Unspecified episodic mood disorder 296.[address] 94289- 6886 Dec, Visit for suture removal V58.32 [place] [id number] [place] [address] 47153- 7592 Nov, Allergic rhinitis 477.9 and Onychomycosis 110.[address] 82589- 8201 Oct, Muscle spasm 728.85 ; Benign essential hypertension 401.1 ; Chronic renal insufficiency 585.9 ; Chronic constipation 564.00 ; GERD ( gastroesophageal reflux disease) 530.81 and Hyperlipidemia 272.4 [place] [id number] [place] [address] 54727- 4257 Oct, Otalgia of left ear 388.[address] 81900- 4706 Oct, Unspecified episodic mood disorder 296.90 [facility] [address], [place] [address]- 4236 September, Unspecified episodic mood disorder 296.90 [facility] [address] [address]- 7186 September, Unspecified episodic mood disorder 296.90 [facility] [address] [address] September, Urinary frequency 788.41 and Constipation 564.00 [facility] [id number] [place] [address] 30139- 1463 Aug, [facility] [id number] [place] [address] 34148- 6112 Aug, [facility] [id number] [place] [address] 41127- 3559 Jul, [facility] [address], [place] [address]- 6200 Jul, [facility] [address] [address] Jul, [facility] [address], [place] [address]- 5950 Jul, [facility] [address], [place] [address]- 8056 Jul, [facility] [address], [place] [address]- 9212 Jul, [facility] [address], [place] [address]- 5288 Jul, [facility] [address], [place] [address]- 8576 Jul, [facility] [address], [place] [address]- 8646 Jul, [facility] [place] [facility] [address] [id number] [place] [address]- 5213 Jul, [facility] [place] [facility] [address] [id number] [place] [address]- 9296 Jun, [facility] [place] [facility] [address] [id number] [place] [address]- 2297 Jun, [facility] [place] [facility] [address] [id number] [place] [address]- 5305 May, [facility] [place] [facility] [address] [id number] [place] [address]- 0645 May, [facility] [place] [facility] [address] [id number] [place] [address]- 4839 May, [facility] [place] [facility] [address] [id number] [place] [address]- 2686 May, [facility] [place] [facility] [address] [id number] [place] [address]- 7384 May, [facility] [place] [facility] [address] [id number] [place] [address]- 2994 May, [facility] [place] [facility] [address] [id number] [place] [address]- 4599 May, [facility] [place] [facility] [address] [id number] [place] [address]- 4951 May, [facility] [place] [facility] [address] [id number] [place] [address]- 7960 May, [facility] [place] [facility] [address] [id number] [place] [address]- 3672 May, [facility] [place] [facility] [address] [id number] [place] [address]- 0698 May, [facility] [place] [facility] [address] [id number] [place] [address]- 6191 May, [facility] [place] [facility] [address] [id number], [place] [address]- 6438 05 May, 2014 [facility] [place] [facility] [address] [id number] [place] [address]- 9208 Feb, [facility] [place] [facility] [address] [id number] [place] [address]- 1396 07 Feb, 2014 [facility] [place] [facility] [address] [id number] [place] [address]- 4795 20 Jan, 2013 [facility] [place] [facility] [address] [id number] [place] [address]- 8232 20 Jan, 2013 [facility] [place] [facility] [address] [id number] [place] [address]- 8930 18 Jan, 2013 [facility] [place] [facility] [address] [id number] [place] [address]- 7480 18 Jan, 2013 [facility] [place] [facility] [address] [id number] [place] [address]- 8772 12 Jan, 2013 [facility] [place] [facility] [address] [id number] [place] [address]- 8923 12 Jan, 2013 [facility] [place] [facility] [address] [id number] [place] [address]- 0625 12 Jan, 2013 [facility] [place] [facility] [address] [id number] [place] [address]- 3088 12 Jan, 2013 [facility] [place] [facility] [address] [id number], [place] [address]- 0008 11 Jan, 2013 [facility] [place] [facility] [address] [id number], [place] [address]- 5878 11 Jan, 2013 [facility] [place] [facility] [address] [id number] [place] [address]- 8717 10 Jan, 2014 [facility] [place] [facility] [address] [id number] [place] [address]- 3784 10 Jan, 2013 [facility] [place] [facility] [address] [id number] [place] [address]- 5888 26 Oct, 2013 [facility] [place] [facility] [address] [id number] [place] [address]- 2093 Oct, [facility] [place] [facility] [address] [id number] [place] [address]- 6095 Oct, [facility] [place] [facility] [address] [id number] [place] [address]- 5936 Oct, [facility] [place] [facility] [address] [id number] [place] [address]- 7226 Jun, [facility] [place] [facility] [address] [id number] [place] [address]- 2347 Jun, [facility] [place] [facility] [address] [id number] [place] [address]- 5096 Jun, [facility] [place] [facility] [address] [id number] [place] [address]- 1411 Jun, [facility] [place] [facility] [address] [id number] [place] [address]- 5741 Apr, [facility] [place] [facility] [address] [id number] [place] [address]- 7373 Apr, [facility] [place] [facility] [address] [id number] [place] [address]- 4536 Feb, [facility] [place] [facility] [address] [id number] [place] 5429 Feb, [facility] [place] [facility] [address] [id number] [place] [address]- 4698 Dec, [facility] [place] [facility] [address] [id number] [place] [address] 2545 Dec, [facility] [place] [facility] [address] [id number] [place] [address]- 9976 Nov, [facility] [place] [facility] [address] [id number] [place] [address]- 2546 Nov, [facility] [place] [facility] [address] [id number] [place] [address]- 6405 Nov, [facility] [address] [id number] [place] [address]- 3630 Oct, [facility] [place] [facility] [address] [id number] [place] [address]- 8175 September, [facility] [place] [facility] [address] [id number] [place] [address]- 6350 September, [facility] [place] [facility] [address] [id number] [place] [address]- 4205 Aug, [facility] [address] [id number] [place] [address]- 2451 Aug, [facility] [place] [facility] [address] [id number] [place] [address]- 8945 Aug, [facility] [place] [facility] [address] [id number] [place] [address]- 1557 Aug, [facility] [place] [facility] [address] [id number] [place] [address]- 8291 Aug, [facility] [place] [facility] [address] [id number] [place] [address]- 8043 Aug, [facility] [place] [facility] [address] [id number] [place] [address]- 2664 Jul, [facility] [place] [facility] [address] [id number] [place] [address]- 6379 Jul, [facility] [place] [facility] [address] [id number], [place] [address]- 5103 21 Jul, 2012 [facility] [place] [facility] [address] [id number] [place] [address]- 3812 15 Jul, 2012 [facility] [place] [facility] [address] [id number] [place] [address]- 3896 11 Jul, 2012 [facility] [place] [facility] [address] [id number] [place] [address]- 7724 07 Jul, 2012 [facility] [place] [facility] [address] [id number] [place] [address]- 5557 Jun, [facility] [address] [id number] [place] [address]- 0846 Jun, [facility] [place] [facility] [address] [id number] [place] [address]- 2316 May, [facility] [address] [id number] [place] [address]- 1659 May, [facility] [place] [facility] [address] [id number] [place] [address] 2545 Apr, [facility] [address] [id number] [place] [address]- 9629 Apr, [facility] [place] [facility] [address] [id number] [place] [address]- 1944 Apr, [facility] [address] [id number] [place] [address] Apr, [facility] [place] [facility] [address] [id number] [place] [address] Apr, [facility] [place] [facility] [address] [id number] [place] [address] Mar, [facility] [place] [facility] [address] [id number] [place] [address] Mar, [facility] [place] [facility] [address] [id number] [place] [address] Mar, [facility] [place] [facility] [address] [id number] [place] [address] Mar, [facility] [place] [facility] [address] [id number] [place] [address] Mar, [facility] [place] [facility] [address] [id number] [place] [address] Mar, [facility] [place] [facility] [address] [id number] [place] [address] Mar, [facility] [place] [facility] [address] [id number] [place] [address] Feb, [facility] [place] [facility] [address] [id number] [place] [address] Feb, [facility] [place] [facility] [address] [id number] [place] [address] Feb, [facility] [place] [facility] [address] [id number] [place] [address] Feb, [facility] [place] [facility] [address] [id number] [place] [address] Dec, [facility] [place] [facility] [address] [id number] [place] [address] Nov, [facility] [place] [facility] [address] [id number] [place] [address] Nov, [facility] [place] [facility] [address] [id number] [place] [address] Oct, [facility] [place] [facility] [address] [id number] [place] [address] Oct, [facility] [place] [facility] [address] [id number] [place] [address] Oct, [facility] [place] [facility] [address] [id number] [place] [address] Oct, [facility] [place] [facility] [address] [id number] [place] [address] Oct, [facility] [place] [facility] [address] [id number] [place] [address] Oct, [facility] [place] [facility] [address] [address] [id number] [place] [address] Oct, [facility] [place] [facility] [address] [id number] [place] [address] Aug, [facility] [place] [facility] [address] [id number] [place] [address] Jul, [facility] [address] [id number] [place] [address] Jul, [facility] [place] [facility] [address] [id number] [place] [address] Jul, [facility] [place] [facility] [address] [id number] [place] [address] Jul, [facility] [place] [facility] [address] [id number] [place] [address] Jul, [facility] [place] [facility] [address] [id number] [place] [address] Jul, [facility] [place] [facility] [address] [id number] [place] [address] Jul, [facility] [address] [id number] [place] [address] Jun, [facility] [place] [facility] [address] [id number] [place] [address] May, [facility] [address] [id number] [place] [address] May, [facility] [place] [facility] [address] [id number] [place] [address] May, [facility] [address] [id number] [place] [address] Apr, [facility] [place] [facility] [address] [id number] [place] [address] Apr, [facility] [place] [facility] [address] [id number] [place] [address] 16 Apr, 2011 [facility] [place] [facility] [address] [id number] [place] [address] 15 Apr, 2011 [facility] [place] [facility] [address] [id number] [place] [address] 07 Apr, 2011 [facility] [place] [facility] [address] [id number] [place] [address] 05 Apr, 2011 [facility] [address] [id number] [place] [address] Mar, [facility] [place] [facility] [address] [id number] [place] [address] Mar, [facility] [place] [facility] [address] [id number] [place] [address] Mar, [facility] [place] [facility] [address] [id number] [place] [address] Mar, [facility] [place] [facility] [address] [id number] [place] [address] Mar, [facility] [place] [facility] [address] [id number] [place] [address] Mar, [facility] [place] [facility] [address] [id number] [place] [address] [address] Mar, [facility] [place] [facility] [address] [id number] [place] [address] Dec, [facility] [place] [facility] [address] [id number] [place] [address] Aug, [facility] [place] [facility] [address] [id number] [place] [address] Apr, [facility] [place] [facility] [address] [id number] [place] [address] Mar, [facility] [place] [facility] [address] [id number] [place] [address] Mar, [facility] [place] [facility] [address] [id number] [place] [address] Mar, [facility] [place] [facility] [address] [id number] [place] [address] [address] Mar, [facility] [place] [facility] [address] [id number] [place] [address] September, [facility] [address] [facility] [id number], [place] [address] Mar, [facility] [id number] [place] [address] Feb, [facility] [address] [id number] [address] Oct, [facility] [id number] [place] [address] September, [facility] [address] [id number] [address] Apr, [facility] [id number] [address] Mar, IMMUNIZATIONS No Known Immunizations SOCIAL HISTORY Never Assessed REASON FOR VISIT Hypertension-Ayo, Pt has a rash on back of neck and shoulder-itches, C/o Edema in RT leg PLAN OF CARE Activity Details Follow Up 3 Months Reason: VITAL SIGNS Height 65 in 2017-12-31 Weight 182.2 lbs 2017-12-31 Temperature 97.66 degrees Fahrenheit 2017-12-31 Heart Rate 86 bpm 2017-12-31 Respiratory Rate 20 2017-12-31 BMI 30.32 kg/m2 2017-12-31 Blood pressure systolic 116 mmHg 2017-12-31 Blood pressure diastolic 68 mmHg 2017-12-31 MEDICATIONS Medication Instructions Dosage Frequency Start Date End Date Duration Status Hydrochlorothiazide 12.5 MG Orally Once a day 1 tablet in the morning 24h September, 90 days Active Amlodipine Besylate 5 mg Orally Once a day 1 tablet 24h September, 90 days Active Lisinopril 20 mg Orally Once a day 1 tablet 24h 90 Active Clonidine HCl 0.1 MG/24HR Transdermal once weekly 1 patch to skin September 12 Weeks Active Proventil HFA 90 mcg/actuation 2 puffs by Inhalation route 4 times per day PRN May, Active Triamcinolone Acetonide 0.1 % Externally Twice a day 1 application to affected area 12h 7 Active Zofran 8 MG Orally every 8 hours, PRN 1 tablet Jun, 03 days Active Calcium 600 MG Active Symbicort 160-4.5 MCG/ACT Inhalation Twice a day sample today 1 puffs May, Active Clotrimazole 1 % Externally Twice a day 1 application to affected area 12h Dec, Feb, 28 day(s) Active Omeprazole 40 MG TAKE ONE (1) CAPSULE BY MOUTH ONCE DAILY 270 Active Vitamin C 500 mg 1 tablet by Oral route 1 time per day May, Active Atorvastatin Calcium 10 mg Orally Once a day 1 tablet 24h September, Active Toprol XL 200 mg Orally Once a day 1 tablets 24h 90 days Active Fluticasone Propionate 50 MCG/ACT Nasally Once a day 1 spray in each nostril 24h 30 Active Gabapentin 100 mg Orally 2 times a day 1 capsule 12h 90 Active Multivitamin Active RESULTS No Results PROCEDURES No Known procedures INSTRUCTIONS MEDICATIONS ADMINISTERED No Known Medications MEDICAL (GENERAL) HISTORY Type Description Date Medical History coronary artery disease (sees Sarah) Medical History 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 Medical History hypertension Medical History renal artery stenosis Medical History hyperlipidemia Medical History peripheral vascular disease Medical History Dysphagia, unspecified Medical History Other dental caries Medical History Right Upper Lung Nodule Stable CT 2011 & 2015 Medical History Periapical abscess without sinus Medical History Periapical abscess without sinus Medical History Abnormal chest x-ray Medical History Lung nodule, solitary Surgical History angioplasty 02/2008 Surgical History abdominal aortic aneurysm repair 02/2008 Surgical History L renal artery stent (Julieth) 03/2011 Surgical History heart cath x2: stents to bilat legs, stomach, and kidneys Surgical History R renal artery stent 2007 Hospitalization History surgeries
[2018-02-08] MEDS ORDERED: HYDR12.56 PO (02:14)
[2018-02-08] MEDS ORDERED: ATOR10TA66 PO (02:14)
[2018-02-08] MEDS ORDERED: GABA-486 PO (02:14)
[2018-02-08] MEDS ORDERED: LISI-552 PO (02:14)
--- OUTSIDE RECORDS SUMMARY | 2018-02-08 02:14 | XMS REPORT ---
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 Name Role Phone MARKUS BALDWIN Unavailable PROBLEMS Type Condition ICD9-CM Code KAT33-CP Code Onset Dates Condition Status SNOMED Code Problem Stenosis of right renal artery I70.1 Active [id number] Problem Seasonal allergic rhinitis, unspecified allergic rhinitis trigger J30.2 Active 750147375 Problem Abdominal aortic aneurysm (AAA) without rupture I71.4 Active 09221026 Problem Mixed hyperlipidemia E78.2 Active 767927034 Problem Other chronic pain G89.29 Active 59359099 Problem PVD (peripheral vascular disease) I73.9 Active 574712949 Problem Prediabetes R73.03 Active 481477287 Problem Arthritis of knee M17.10 Active 484491485 Problem Renal artery stenosis I70.1 Active 606950973 Problem Peripheral vascular disease I73.9 Active 043059054 Problem Dysphagia, unspecified R13.10 Active 79048594 Problem Hepatic steatosis K76.0 Active 552891762 Problem Urinary, incontinence, stress female N39.3 Active 55789166 Problem Anemia of chronic disease D63.8 Active 384128313 Problem 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 209438698 Problem Chronic kidney disease, unspecified N18.9 Active 121104465 Problem Essential hypertension I10 Active 34084297 Problem Cervicalgia M54.2 Active [id number] Problem Gastroesophageal reflux disease without esophagitis K21.9 Active 051166527 ALLERGIES No Information ENCOUNTERS Encounter Location Date Diagnosis [facility] [address] [id number] [address] Dec, [facility] [address] [id number] [address] Dec, Essential hypertension I10 ; Chronic kidney disease, unspecified N18.9 ; Mixed hyperlipidemia E78.2 ; Tinea corporis B35.4 ; Right hip pain M25.551 and Acute pain of right knee M25.[address] [address]- [address] Dec, Herpes zoster without complication B02.9 ; Dandruff L21.0 ; Diarrhea, unspecified type R19.7 and BMI 45.0-49.9, adult Z68.42 [place] [address] [address]- [address] September, Chronic kidney disease, unspecified N18.9 ; Essential hypertension I10 ; Mixed hyperlipidemia E78.2 and BMI 45.0-49.9, adult Z68.42 [place] [address] [address]- [address] September, [address] [address]- [address] September, Essential hypertension I10 ; Chronic kidney disease, unspecified N18.9 ; Prediabetes R73.03 ; Low back pain M54.5 ; Other chronic pain G89.29 ; Arthritis of knee M17.10 ; Pure hyperglyceridemia E78.1 ; Anemia of chronic disease D63.8 and BMI 45.0-49.9, adult Z68.42 [place] [id number] [place] [address] 47288- 4719 Aug, [address] [address]- [address] Jul, Abdominal aortic aneurysm (AAA) without rupture I71.4 ; PVD (peripheral vascular disease) I73.9 ; Renal artery stenosis I70.1 and Essential hypertension I10 [address] [address]- [address] May, Essential hypertension I10 ; Pure hyperglyceridemia E78.1 ; Abdominal aortic aneurysm (AAA) without rupture I71.4 ; Chronic kidney disease, unspecified N18.9 ; Gastroesophageal reflux disease without esophagitis K21.9 ; 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 ; Stenosis of right renal artery I70.1 ; Anemia of chronic disease D63.8 and Prediabetes R73.03 [place] [address] [address]- 7147 May, Tinea corporis B35.4 and Viral URI J06.9 [place] [address] 2[address]- 7767 May, [place] [address] [address]- 2014 Apr, [place] [address] [address]- 1523 Apr, Cervical radiculopathy M54.12 [facility] [address] [address] Apr, Flank pain R10.9 and Acute pyelonephritis N10 [place] [address] 41467- 6275 Apr, [place] [address] 78006- 0835 Mar, [place] [address] 57[address]- 6184 Feb, Pain of right shoulder region M25.511 [place] [address] 97829- 2981 Feb, History of glaucoma Z86.69 ; Vision changes H53.9 ; Abdominal aortic aneurysm (AAA) without rupture I71.4 ; Xerosis of skin L85.3 and Pain in right shoulder M25.511 [place] [address] 06[address]- 40[address] Feb, [place] [address] 12[address]- 6345 13 Jan, 2017 Essential hypertension I10 ; Pure hyperglyceridemia E78.1 ; Chronic kidney disease, unspecified N18.9 ; Gastroesophageal reflux disease without esophagitis K21.9 ; 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 ; Stenosis of right renal artery I70.1 ; Anemia of chronic disease D63.8 ; Prediabetes R73.03 ; Pain of right shoulder region M25.511 and Homeless Z59.0 [place] [id number] [place] [address] 18989- 5590 Jan, Neck pain M54.2 and Seasonal allergic rhinitis, unspecified allergic rhinitis trigger J30.2 [place] [id number] [place] [address] 02355- 4033 Dec, [place] [address] 0[address]01- 0406 Dec, [place] [id number] [place] [address] 70409- 0756 Dec, Blood glucose abnormal R73.09 ; Essential [...] H. pylori infection A04.8 and Prediabetes R73.03 [facility] [id number] [place] [address] 87719 -3340 Oct, Seasonal allergic rhinitis, unspecified allergic rhinitis trigger J30.2 [place] [id number] [place] [address] 57903- 3582 September, Eustachian tube dysfunction, left H69.82 and Candidiasis of breast B37.89 [place] [id number] [place] [address] 08394- 8621 Jul, Blood glucose abnormal R73.09 ; Essential hypertension I10 ; Pure hyperglyceridemia E78.1 ; Chronic kidney disease, unspecified N18.9 ; Gastroesophageal reflux disease without esophagitis K21.9 ; 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 ; Abdominal aortic aneurysm (AAA) without rupture I71.4 ; Stenosis of right renal artery I70.1 ; Anemia of chronic disease D63.8 and Acute non-recurrent maxillary sinusitis J01.00 [place] [id number] [place] [address] 88473- 1321 Jun, Acute non-recurrent maxillary sinusitis J01.00 ; Acute mucoid otitis media of left ear H65.112 ; Nausea R11.0 and Fever and chills R50.9 [place] [address] 43069- 9966 May, Acute right flank pain R10.9 [place] [address] 20161- [address] Apr, Acute nasopharyngitis J00 ; Pure hyperglyceridemia E78.1 and Chronic kidney disease, unspecified N18.9 [place] [address] 58335- 0097 Apr, [place] [address] 15365- 3754 Apr, Blood glucose abnormal R73.09 ; Essential hypertension I10 ; Pure hyperglyceridemia E78.1 ; Chronic kidney disease, unspecified N18.9 ; Gastroesophageal reflux disease without esophagitis K21.9 ; 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 ; Abdominal aortic aneurysm (AAA) without rupture I71.4 ; Stenosis of right renal artery I70.1 ; RUQ pain R10.11 and Anemia of chronic disease D63.8 [place] [address] [id number] [place] [address] 86062- 3365 Mar, Blood glucose abnormal R73.[address] 19393- 0055 Mar, Cellulitis of right lower leg L03.115 [facility] [place] [id number] [place] [address] 96807 -0624 Feb, [id number] [place] [address] 53192- 1613 Feb, Dysuria R30.0 and Upper respiratory tract infection, unspecified type J06.9 [place] [address] [id number] [place] [address] 68920- 9724 Jan, [place] [address] [id number] [place] [address] 56993- 9889 Jan, [place] [id number] [place] [address] 74367- 9735 Dec, [place] [id number] [place] [address] 06530- 9963 Dec, Anemia of chronic disease D63.8 ; Essential hypertension I10 ; Pure hyperglyceridemia E78.1 ; Chronic kidney disease, unspecified N18.9 ; Gastroesophageal reflux disease without esophagitis K21.9 ; 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 and Pain in right knee M25.561 [place] [id number] [place] [address] 36304- 4213 Dec, Left shoulder strain, subsequent encounter S46.912D ; Urinary frequency R35.0 ; Lung nodule, solitary R91.1 ; Essential hypertension I10 and Acute cystitis without hematuria N30.[address] [place] [address] 55774- 2925 Nov, Left-sided chest wall pain R07.89 and Abnormal chest xray R93.[address] [place] [address] 54658- 1635 Nov, Pain of right lower extremity M79.604 ; Swelling of right lower extremity M79.89 ; Diarrhea, unspecified R19.7 ; Nausea with vomiting, unspecified R11.2 ; Left-sided chest wall pain R07.89 ; Chronic kidney disease, unspecified N18.9 ; Gastroesophageal reflux disease without esophagitis K21.9 and Other seasonal allergic rhinitis J30.2 [place] [id number] [place] [address] 74479- 7147 September, Essential hypertension I10 ; Chronic kidney disease, unspecified N18.9 ; Anemia of chronic disease D63.8 ; Pure hyperglyceridemia E78.1 ; Peripheral vascular disease I73.9 ; Abnormal glucose R73.09 ; 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 ; Gastroesophageal reflux disease without esophagitis K21.9 ; Allergic rhinitis J30.9 and Rash R21 [address] 7[address]- 0899 Aug, Abdominal pain R10.9 and Constipation K59.[address] 39753- 2452 Jul, Injury of toe on right foot S99.921A [place] [address] 38921- 8222 Jul, [address] 98122- 7122 Jul, Essential hypertension I10 ; Chronic kidney disease, unspecified N18.9 ; Anemia of chronic disease D63.8 ; Pure hyperglyceridemia E78.1 ; Peripheral vascular disease I73.9 ; Abnormal glucose R73.09 ; 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 ; Gastroesophageal reflux disease without esophagitis K21.9 and Allergic rhinitis J30.9 [place] [id number] [place] [address] 56005- 6983 Jun, Low back pain M54.5 [place] [address] 20239- 9983 Jun, [place] [address] 37695- 3959 May, URI (upper respiratory infection) J06.9 [place] [address] 21346- 0339 Apr, Essential hypertension I10 [address] 84842- 2520 Apr, Essential hypertension I10 ; Chronic kidney disease, unspecified N18.9 ; Anemia of chronic disease D63.8 ; Pure hyperglyceridemia E78.1 ; Peripheral vascular disease I73.9 ; Abnormal glucose R73.09 ; URI ( upper respiratory infection) J06.9 ; 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 ; Gastroesophageal reflux disease without esophagitis K21.9 and Cough R05 [place] [address] 88544- 0676 Mar, Flank pain R10.9 and URI (upper respiratory infection) J06.9 [place] [address] 68973- 4103 Mar, Right-sided low back pain without sciatica M54.5 and Hematuria, unspecified R31.9 [place] [address] 80297- 9105 Mar, Hypopigmentation L81.9 and Hyperpigmentation L81.9 [place] [address] 84238- 2340 Mar, [place] [address] 78846- 4180 Mar, Acute cystitis with hematuria N30.01 [place] [address] 79964- 0927 Mar, [place] [address] 99249- 6389 Feb, Furuncle L02.92 ; Hypopigmentation L81.9 ; Hyperpigmentation L81.9 ; Urinary frequency R35.0 ; Screening for malignant neoplasm of cervix Z12.4 ; Vaginal discharge N89.8 ; Urinary, incontinence, stress female N39.3 and Vaginal irritation N89.8 [place] [address] 08450- 6463 Jan, Muscle spasm 728.85 ; Unspecified peripheral vascular disease 443.9 ; Benign essential hypertension 401.1 ; Chronic renal insufficiency 585.9 ; Chronic constipation 564.00 ; GERD (gastroesophageal reflux disease) 530.81 ; Hyperlipidemia 272.4 and Chronic leg pain 729.5 [place] [address] [id number] [place] [address] 10182- 9147 Jan, Sinusitis 473.9 [place] [id number] [place] [address] 79970- 8292 Dec, [place] [address] 31132- 1093 Dec, Acute bronchitis 466.0 [place] [id number] [place] [address] 54259- 5593 Dec, Acute bronchitis 466.0 [place] [address] 91696- 5401 Dec, Unspecified episodic mood disorder 296.90 [place] [id number] [place] [address] 54659- 1504 Dec, Visit for suture removal V58.32 [place] [address] [id number] [place] [address] 30857- 1444 Nov, Allergic rhinitis 477.9 and Onychomycosis 110.1 [place] [id number] [place] [address] 23502- 5904 Oct, Muscle spasm 728.85 ; Benign essential hypertension 401.1 ; Chronic renal insufficiency 585.9 ; Chronic constipation 564.00 ; GERD ( gastroesophageal reflux disease) 530.81 and Hyperlipidemia 272.4 [place] [id number] [place] [address] 54389- 4541 Oct, Otalgia of left ear 388.70 [place] [id number] [place] [address] 68831- 9204 Oct, Unspecified episodic mood disorder 296.90 [place] [id number] [place] [address] 59456- 8236 September, Unspecified episodic mood disorder 296.90 [place] [address] [place] [address]- 8389 September, Unspecified episodic mood disorder 296.90 [facility] [address] [address] September, Urinary frequency 788.41 and Constipation 564.00 [facility] [address], [place] [address]- 1765 Aug, [facility] [id number] [place] [address] 89846- 9504 Aug, [facility] [id number] [place] [address] 26969- 8536 Jul, [facility] [id number] [place] [address] 42637- 1586 Jul, [facility] [id number] [place] [address] 13817- 2282 Jul, [facility] [id number] [place] [address] 34226- 2361 Jul, [facility] [address], [place] [address]- 9560 Jul, [facility] [address] 9420 Jul, [facility] [address], [place] [address]- 7016 Jul, [facility] [address], [place] [address]- 2244 Jul, [facility] [address], [place] [address]- 2863 Jul, [facility] [address], [place] [address]- 6376 Jul, [facility] [address] [place] [address]- 4517 Jun, [facility] [address] [address] [place] [address]- 9720 Jun, [facility] [address] [id number] [place] [address]- 9879 May, [facility] [place] [facility] [address] [id number] [place] [address]- 6648 May, [facility] [address] [id number] [place] [address]- 1479 May, [facility] [place] [facility] [address] [id number] [place] [address]- 5825 May, [facility] [address] [id number] [place] [address]- 3788 May, [facility] [place] [facility] [address] [id number] [place] [address]- 1537 May, [facility] [address] [id number] [place] [address]- 2294 May, [facility] [address] [id number] [place] [address]- 4091 May, [facility] [place] [facility] [address] [id number] [place] [address]- 5631 May, [facility] [address] [id number] [place] [address]- 5938 May, [facility] [place] [facility] [address] [id number] [place] [address]- 6647 May, [facility] [place] [facility] [address] [id number] [place] [address]- 1030 May, [facility] [place] [facility] [address] [id number] [place] [address]- 7211 May, [facility] [place] [facility] [address] [id number] [place] [address] Feb, [facility] [place] [facility] [address] [id number] [place] [address]- 8316 Feb, [facility] [place] [facility] [address] [id number] [place] [address]- 4315 20 Jan, 2013 [facility] [place] [facility] [address] [id number] [place] [address]- 6767 20 Jan, 2013 [facility] [place] [facility] [address] [id number] [place] [address]- 2607 18 Jan, 2013 [facility] [place] [facility] [address] [id number] [place] [address] 2548 18 Jan, 2013 [facility] [place] [facility] [address] [id number] [place] [address]- 2236 12 Jan, 2013 [facility] [place] [facility] [address] [id number] [place] [address]- 1097 12 Jan, 2013 [facility] [place] [facility] [address] [id number] [place] [address]- 0568 12 Jan, 2013 [facility] [place] [facility] [address] [id number] [place] [address]- 2069 12 Jan, 2013 [facility] [place] [facility] [address] [id number] [place] [address]- 8428 11 Jan, 2014 [facility] [place] [facility] [address] [id number] [place] [address]- 9694 11 Jan, 2014 [facility] [place] [facility] [address] [id number] [place] [address]- 7333 10 Jan, 2014 [facility] [place] [facility] [address] [id number] [place] [address]- 1831 10 Jan, 2013 [facility] [place] [facility] [address] [id number] [place] [address]- 4689 Oct, [facility] [place] [facility] [address] [id number] [place] [address]- 2779 Oct, [facility] [place] [facility] [address] [id number] [place] [address]- 6501 Oct, [facility] [place] [facility] [address] [id number] [place] [address]- 7389 Oct, [facility] [place] [facility] [address] [id number] [place] [address]- 4816 Jun, [facility] [place] [facility] [address] [id number] [place] [address]- 6578 Jun, [facility] [place] [facility] [address] [id number] [place] [address]- 0766 Jun, [facility] [place] [facility] [address] [id number] [place] [address]- 4524 Jun, [facility] [place] [facility] [address] [id number] [place] [address]- 8146 Apr, [facility] [place] [facility] [address] [id number] [place] [address]- 9077 Apr, [facility] [place] [facility] [address] [id number] [place] [address]- 4269 Feb, [facility] [place] [facility] [address] [id number] [place] [address]- 6176 Feb, [facility] [place] [facility] [address] [id number] [place] [address]- 6874 Dec, [facility] [place] [facility] [address] [facility] [id number] [place] [address]- 1992 Dec, [facility] [place] [facility] [address] [id number] [place] [address]- 7316 Nov, [facility] [place] [facility] [address] [id number] [place] [address]- 2042 Nov, [facility] [place] [facility] [address] [id number] [place] [address]- 3955 Nov, [facility] [place] [facility] [address] [id number] [place] [address]- 5970 Oct, [facility] [place] [facility] [address] [id number] [place] [address]- 0440 September, [facility] [place] [facility] [address] [id number] [place] [address]- 2236 September, [facility] [address] [id number] [place] [address]- 9821 Aug, [facility] [address] [id number] [place] [address]- 6910 Aug, [facility] [address] [id number] [place] [address]- 7873 Aug, [facility] [address] [id number] [place] [address]- 3389 Aug, [facility] [address] [id number] [place] [address]- 5896 Aug, [facility] [address] [id number] [place] [address]- 6693 Aug, [facility] [address] [id number] [place] [address]- 6944 Jul, [facility] [address] [id number] [place] [address]- 7759 Jul, [facility] [address] [id number] [place] [address]- 1535 Jul, [facility] [address] [id number] [place] [address]- 6947 Jul, [facility] [address] [id number] [place] [address]- 0508 Jul, [facility] [address] [id number] [place] [address]- 1982 Jul, [facility] [place] [facility] [address] [id number] [place] [address]- 6131 Jun, [facility] [address] [id number] [place] [address]- 4776 Jun, [facility] [address] [id number] [place] [address]- 3819 May, [facility] [place] [facility] [address] [id number] [place] [address]- 0257 May, [facility] [place] [facility] [address] [id number] [place] [address]- 3331 Apr, [facility] [place] [facility] [address] [id number] [place] [address]- 2156 Apr, [facility] [place] [facility] [address] [id number] [place] [address]- 0286 Apr, [facility] [place] [facility] [address] [id number] [place] [address]- 6577 Apr, [facility] [place] [facility] [address] [id number] [place] [address]- 5560 Apr, [facility] [place] [facility] [address] [id number] [place] [address]- 1902 Mar, [facility] [place] [facility] [address] [id number] [place] [address] Mar, [facility] [place] [facility] [address] [id number] [place] [address] Mar, [facility] [place] [facility] [address] [id number] [place] [address] Mar, [facility] [place] [facility] [address] [id number] [place] [address] Mar, [facility] [place] [facility] [address] [id number] [place] [address] Mar, [facility] [place] [facility] [address] [id number] [place] [address] Mar, [facility] [place] [facility] [address] [id number] [place] [address] Feb, [facility] [place] [facility] [address] [id number] [place] [address] Feb, [facility] [place] [facility] [address] [id number] [place] [address] Feb, [facility] [address] [id number] [place] [address] Feb, [facility] [place] [facility] [address] [id number] [place] [address] Dec, [facility] [address] [id number] [place] [address] Nov, [facility] [place] [facility] [address] [id number] [place] [address] Nov, [facility] [address] [id number] [place] [address] Oct, [facility] [place] [facility] [address] [id number] [place] [address] Oct, [facility] [place] [facility] [address] [id number] [place] [address] Oct, [facility] [address] [id number] [place] [address] Oct, [facility] [place] [facility] [address] [id number] [place] [address] Oct, [facility] [address] [id number] [place] [address] Oct, [facility] [place] [facility] [address] [id number] [place] [address] Oct, [facility] [place] [facility] [address] [id number] [place] [address] Aug, [facility] [place] [facility] [address] [id number] [place] [address] 31 Jul, 2011 [facility] [place] [facility] [address] [id number] [place] [address] Jul, [facility] [place] [facility] [address] [id number] [place] [address] 15 Jul, 2011 [facility] [address] [id number] [place] [address] Jul, [facility] [place] [facility] [address] [id number] [place] [address] Jul, [facility] [place] [facility] [address] [id number] [place] [address] Jul, [facility] [place] [facility] [address] [id number] [place] [address] Jul, [facility] [place] [facility] [address] [id number] [place] [address] Jun, [facility] [place] [facility] [address] [id number] [place] [address] May, [facility] [place] [facility] [address] [id number] [place] [address] May, [facility] [place] [facility] [address] [id number] [place] [address] May, [facility] [place] [facility] [address] [id number] [place] [address] Apr, [facility] [place] [facility] [address] [id number] [place] [address] Apr, [facility] [place] [facility] [address] [id number] [place] [address] 16 Apr, 2011 [facility] [place] [facility] [address] [id number] [place] [address] 2018 15 Apr, 2011 [facility] [place] [facility] [address] [id number] [place] [address] Apr, [facility] [place] [facility] [address] [id number] [place] [address] 05 Apr, 2011 [facility] [place] [facility] [address] [id number] [place] [address] Mar, [facility] [place] [facility] [address] [id number] [place] [address] Mar, [facility] [place] [facility] [address] [id number] [place] [address] Mar, [facility] [place] [facility] [address] [id number] [place] [address] Mar, [facility] [place] [facility] [address] [id number] [place] [address] Mar, [facility] [place] [facility] [address] [id number] [place] [address] Mar, [facility] [place] [facility] [address] [id number] [place] [address] Mar, [facility] [place] [facility] [address] [id number] [place] [address] Dec, [facility] [place] [facility] [address] [id number] [place] [address] Aug, [facility] [place] [facility] [address] [id number] [place] [address] Apr, [facility] [place] [facility] [address] [id number] [place] [address] Mar, [facility] [place] [facility] [address] [id number] [place] [address] Mar, [facility] [place] [facility] [address] [id number] [place] [address] Mar, [facility] [place] [facility] [address] [id number], [place] [address] Mar, [facility] [place] [facility] [address] [id number] [place] [address] September, [facility] [place] [facility] [address] [id number] [place] [address] Mar, [facility] [place] [facility] [address] [id number], [place] [address] Feb, [facility] [place] [facility] [address] [facility] [id number], [place] [address] 17 Oct, 2008 [facility] [address] [facility] [id number], [place] [address] September, [facility] [address] [facility] [id number], [place] [address] Apr, [facility] [address] [facility] [id number], [place] [address] Mar, IMMUNIZATIONS No Known Immunizations SOCIAL HISTORY Never Assessed REASON FOR VISIT Refill request PLAN OF CARE VITAL SIGNS MEDICATIONS Medication Instructions Dosage Frequency Start Date End Date Duration Status Omeprazole 40 mg Orally Once a day TAKE ONE (1) CAPSULE BY MOUTH ONCE DAILY 24h 30 days Active Gabapentin 100 mg Orally 2 times a day 1 capsule 12h 30 days Active RESULTS No Results PROCEDURES No Known procedures INSTRUCTIONS MEDICATIONS ADMINISTERED No Known Medications MEDICAL (GENERAL) HISTORY Type Description Date Medical History coronary artery disease (melinda Smith) Medical History hearing loss L ear Medical [...]
[2018-02-08] MEDS ORDERED: ASPIRIN 81 MG CHEW (CHILDREN'S ASA) PO ONE (02:15)
--- OUTSIDE RECORDS SUMMARY | 2018-02-08 02:15 | XMS REPORT ---
Author Author MARKUS BALDWIN Organization [facility] Address [address] [place] [address] Care Team Providers Care Senior Research Fellow Name Role Phone MARKUS BALDWIN Unavailable PROBLEMS Type Condition ICD9-CM Code WGE04-US Code Onset Dates Condition Status SNOMED Code Problem Stenosis of right renal artery I70.1 Active [id number] Problem Seasonal allergic rhinitis, unspecified allergic rhinitis trigger J30.2 Active 486936964 Problem Abdominal aortic aneurysm (AAA) without rupture I71.4 Active 16879406 Problem Mixed hyperlipidemia E78.2 Active 528781752 Problem Other chronic pain G89.29 Active 54819652 Problem PVD (peripheral vascular disease) I73.9 Active 742817432 Problem Prediabetes R73.03 Active 791283192 Problem Arthritis of knee M17.10 Active 654222023 Problem Renal artery stenosis I70.1 Active 650477021 Problem Peripheral vascular disease I73.9 Active 452011816 Problem Dysphagia, unspecified R13.10 Active 83170706 Problem Hepatic steatosis K76.0 Active 239743303 Problem Urinary, incontinence, stress female N39.3 Active 40190850 Problem Anemia of chronic disease D63.8 Active 777836537 Problem 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 906663193 Problem Chronic kidney disease, unspecified N18.9 Active 195137652 Problem Essential hypertension I10 Active 90035750 Problem Cervicalgia M54.2 Active [id number] Problem Gastroesophageal reflux disease without esophagitis K21.9 Active 122033279 ALLERGIES Substance Reaction Event Type Date Status Tekturna Unknown Drug Allergy September, Active Niacin rash Drug Allergy September, Active Macrobid anaphylaxis Drug Allergy September, Active Iodine (IV contrast) Drug Allergy September, Active Ibuprofen (All NSAIDs) Drug Allergy September, Active Bactrim resp distress Drug Allergy September, Active ENCOUNTERS Encounter Location Date Diagnosis [place] [address], [place] [address] Dec, [place] [address] [place] [id number] [place] [address] 42812- 2043 Dec, Herpes zoster without complication B02.9 and Dandruff L21.0 [place] [address] [place] [id number] [place] [address] 16401- 9647 September, Chronic kidney disease, unspecified N18.9 ; Essential hypertension I10 ; Mixed hyperlipidemia E78.2 and BMI 45.0-49.9, adult Z68.42 [place] [address] [place] [id number] [place] [address] 28559- 8380 September, [place] [address] [place] [id number] [place] [address] 81156- 6044 September, Essential hypertension I10 ; Chronic kidney disease, unspecified N18.9 ; Prediabetes R73.03 ; Low back pain M54.5 ; Other chronic pain G89.29 ; Arthritis of knee M17.10 ; Pure hyperglyceridemia E78.1 ; Anemia of chronic disease D63.8 and BMI 45.0-49.9, adult Z68.42 [place] [address] [place] [id number] [place] [address] 20086- 8931 Aug, [place] [address] [place] [id number] [place] [address] 17962- 2147 Jul, Abdominal aortic aneurysm (AAA) without rupture I71.4 ; PVD (peripheral vascular disease) I73.9 ; Renal artery stenosis I70.1 and Essential hypertension I10 [place] [address] [place] [address] 94944- 1521 May, Essential hypertension I10 ; Pure hyperglyceridemia E78.1 ; Abdominal aortic aneurysm (AAA) without rupture I71.4 ; Chronic kidney disease, unspecified N18.9 ; Gastroesophageal reflux disease without esophagitis K21.9 ; 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 [address] [address] -[address] Apr, Flank pain R10.9 and Acute pyelonephritis N10 [place] [address] 34325- 7478 Apr, [place] [address] 34135- 7703 Mar, [place] [address] 70241- 0648 Feb, Pain of right shoulder region M25.511 [place] [address] [place] [id number] [place] [address] 80153- 4643 Feb, History of glaucoma Z86.69 ; Vision changes H53.9 ; Abdominal aortic aneurysm (AAA) without rupture I71.4 ; Xerosis of skin L85.3 and Pain in right shoulder M25.511 [place] [address] [place] [id number] [place] [address] 90524- 6842 Feb, [place] [address] 49682- 8970 Jan, Essential hypertension I10 ; Pure hyperglyceridemia E78.1 ; Chronic kidney disease, unspecified N18.9 ; Gastroesophageal reflux disease without esophagitis K21.9 ; 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 pylori infection A04.8 and Prediabetes R73.03 [facility] [address] [place] [id number] [place] [address] 49236 -3379 Oct, Seasonal allergic rhinitis, unspecified allergic rhinitis trigger J30.2 [place] [address] [place] [id number] [place] [address] 31503- 6860 September, Eustachian tube dysfunction, left H69.82 and Candidiasis of breast B37.89 [facility] [address] [place] [id number] [place] [address] 57436- 8430 Jul, Blood glucose abnormal R73.09 ; Essential hypertension I10 ; Pure hyperglyceridemia E78.1 ; Chronic kidney disease, unspecified N18.9 ; Gastroesophageal reflux disease without esophagitis K21.9 ; 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 ; Abdominal aortic aneurysm (AAA) without rupture I71.4 ; Stenosis of right renal artery I70.1 ; Anemia of chronic disease D63.8 and Acute non-recurrent maxillary sinusitis J01.00 [place] [address] [place] [id number] [place] [address] 63573- 1699 Jun, Acute non-recurrent maxillary sinusitis J01.00 ; Acute mucoid otitis media of left ear H65.112 ; Nausea R11.0 and Fever and chills R50.9 [place] [address] 54769- 4274 May, Acute right flank pain R10.9 [place] [address] [place] [id number] [place] [address] 57855- 4161 Apr, Acute nasopharyngitis J00 ; Pure hyperglyceridemia E78.1 and Chronic kidney disease, unspecified N18.9 [place] [address] 23431- 7752 Apr, [place] [address] 54974- 0045 Apr, Blood glucose abnormal R73.09 ; Essential hypertension I10 ; Pure hyperglyceridemia E78.1 ; Chronic kidney disease, unspecified N18.9 ; Gastroesophageal reflux disease without esophagitis K21.9 ; 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 [address] [place] [id number] [place] [address] 82644 -1054 Feb, [place] [address] [place] [id number] [place] [address] 22399- 7869 Feb, Dysuria R30.0 and Upper respiratory tract infection, unspecified type J06.9 [place] [address], [place] [address]- 3991 Jan, [place] [address] [place] [id number] [place] [address] 96985- 9887 Jan, [place] [address] [place] [id number] [place] [address] 57448- 5831 Dec, [place] [address] [place] [id number] [place] [address] 87052- 4333 Dec, Anemia of chronic disease D63.8 ; Essential hypertension I10 ; Pure hyperglyceridemia E78.1 ; Chronic kidney disease, unspecified N18.9 ; Gastroesophageal reflux disease without esophagitis K21.9 ; 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 and Pain in right knee M25.561 [place] [id number] [place] [address] 86594- 9685 Dec, Left shoulder strain, subsequent encounter S46.912D ; Urinary frequency R35.0 ; Lung nodule, solitary R91.1 ; Essential hypertension I10 and Acute cystitis without hematuria N30.00 [place] [id number] [place] [address] 97036- 1727 Nov, Left-sided chest wall pain R07.89 and Abnormal chest xray R93.[address] [place] [address] 80876- 2424 Nov, Pain of right lower extremity M79.604 ; Swelling of right lower extremity M79.89 ; Diarrhea, unspecified R19.7 ; Nausea with vomiting, unspecified R11.2 ; Left-sided chest wall pain R07.89 ; Chronic kidney disease, unspecified N18.9 ; Gastroesophageal reflux disease without esophagitis K21.9 and Other seasonal allergic rhinitis J30.[address] [place] [address] 44373- 0196 September, Essential hypertension I10 ; Chronic kidney disease, unspecified N18.9 ; Anemia of chronic disease D63.8 ; Pure hyperglyceridemia E78.1 ; Peripheral vascular disease I73.9 ; Abnormal glucose R73.09 ; 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 ; Gastroesophageal reflux disease without esophagitis K21.9 ; Allergic rhinitis J30.9 and Rash R21 [place] [address] 48813- 4427 Aug, Abdominal pain R10.9 and Constipation K59.00 [place] [address] 08026- 6871 Jul, Injury of toe on right foot S99.921A [place] [address] 73433- 3047 Jul, [place] [address] 15763- 1468 Jul, Essential hypertension I10 ; Chronic kidney disease, unspecified N18.9 ; Anemia of chronic disease D63.8 ; Pure hyperglyceridemia E78.1 ; Peripheral vascular disease I73.9 ; Abnormal glucose R73.09 ; 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 ; Gastroesophageal reflux disease without esophagitis K21.9 and Allergic rhinitis J30.9 [place] [address] 70385- 7343 Jun, Low back pain M54.5 [place] [address] 36535- 7760 Jun, [place] [address] 64975- 7007 May, URI (upper respiratory infection) J06.9 [place] [address] 30004- 6061 Apr, Essential hypertension I10 [address] 81285- 7176 Apr, Essential hypertension I10 ; Chronic kidney disease, unspecified N18.9 ; Anemia of chronic disease D63.8 ; Pure hyperglyceridemia E78.1 ; Peripheral vascular disease I73.9 ; Abnormal glucose R73.09 ; URI ( upper respiratory infection) J06.9 ; 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 ; Gastroesophageal reflux disease without esophagitis K21.9 and Cough R05 [place] [id number] [address]37 Mar, Flank pain R10.9 and URI (upper respiratory infection) J06.[address] 38199- 1948 Mar, Right-sided low back pain without sciatica M54.5 and Hematuria, unspecified R31.[address] 0362 Mar, Hypopigmentation L81.9 and Hyperpigmentation L81.[address] 70962- 0432 Mar, [address] 67412- 8729 Mar, Acute cystitis with hematuria N30.[address] 59217- 5001 Mar, [place] [address] [address]367 Feb, Furuncle L02.92 ; Hypopigmentation L81.9 ; Hyperpigmentation L81.9 ; Urinary frequency R35.0 ; Screening for malignant neoplasm of cervix Z12.4 ; Vaginal discharge N89.8 ; Urinary, incontinence, stress female N39.3 and Vaginal irritation N89.[address] 77752- 7094 Jan, Muscle spasm 728.85 ; Unspecified peripheral vascular disease 443.9 ; Benign essential hypertension 401.1 ; Chronic renal insufficiency 585.9 ; Chronic constipation 564.00 ; GERD (gastroesophageal reflux disease) 530.81 ; Hyperlipidemia 272.4 and Chronic leg pain 729.5 [place] [address] [address]- 3155 Jan, Sinusitis 473.9 [place] [address] [place] [id number] [place] [address] 40938- 1267 Dec, [place] [address] [place] [id number] [place] [address] 17618- 4047 Dec, Acute bronchitis 466.0 [place] [address] 08094- 3173 Dec, Acute bronchitis 466.0 [place] [address] [place] [id number] [place] [address] 08751- 9861 Dec, Unspecified episodic mood disorder 296.90 [place] [address] [place] [id number] [place] [address] 45017- 0343 Dec, Visit for suture removal V58.32 [place] [id number] [place] [address] 97261- 8048 Nov, Allergic rhinitis 477.9 and Onychomycosis 110.1 [place] [id number] [place] [address] 75885- 7719 Oct, Muscle spasm 728.85 ; Benign essential hypertension 401.1 ; Chronic renal insufficiency 585.9 ; Chronic constipation 564.00 ; GERD ( gastroesophageal reflux disease) 530.81 and Hyperlipidemia 272.[address] [place] [address] 47847- 8416 Oct, Otalgia of left ear 388.[address] [place] [address] 07439- 7106 Oct, Unspecified episodic mood disorder 296.90 [place] [id number] [place] [address] 47722- 5704 September, Unspecified episodic mood disorder 296.90 [place] [address] [place] [address] 59727- 0791 September, Unspecified episodic mood disorder 296.90 [place] [address] [address] September, Urinary frequency 788.41 and Constipation 564.00 [facility] [address] [address] [address]- 6876 14 Aug, 2014 [facility] [address] [address] [address] [address]- 4697 Aug, [facility] [address] [place] [id number] [place] [address] 69793- 2948 Jul, [facility] [address] [place] [id number] [address]- 6575 Jul, [facility] [address] [place] [id number] [place] [address] 27832- 8437 Jul, [facility] [address] [address] [address]- 9293 Jul, [facility] [address], [place] [address]- 2605 Jul, [facility] [place] [facility] [address], [place] [address]- 5891 Jul, [facility] [address], [place] [address]- 6453 Jul, [facility] [place] [facility] [address], [place] [address]- 2836 Jul, [facility] [place] [facility] [address], [place] [address]- 7839 Jul, [facility] [place] [facility] [address], [place] [address]- 5384 Jul, [facility] [place] [facility] [address], [place] [address]- 7437 Jun, [facility] [place] [facility] [address], [place] [address]- 9398 Jun, [facility] [place] [facility] [address] [place] [id number] [place] [address]- 6461 May, [facility] [place] [facility] [address] [id number] [place] [address]- 9929 May, [facility] [place] [facility] [address] [id number] [place] [address]- 0775 May, [facility] [place] [facility] [address] [id number] [place] [address]- 3436 May, [facility] [place] [facility] [address] [id number] [place] [address]- 7330 May, [facility] [place] [facility] [address] [id number] [place] [address]- 7096 May, [facility] [place] [facility] [address] [id number] [place] [address]- 2454 May, [facility] [place] [facility] [address] [id number] [place] [address]- 5650 May, [facility] [place] [facility] [address] [id number] [place] [address]- 0148 May, [facility] [place] [facility] [address] [id number] [place] [address]- 1187 May, [facility] [place] [facility] [address] [id number] [place] [address]- 4605 May, [facility] [place] [facility] [address] [id number] [place] [address]- 1258 May, [facility] [place] [facility] [address] [id number] [place] [address]- 3260 May, [facility] [place] [facility] [address] [id number] [place] [address]- 7280 Feb, [facility] [place] [facility] [address] [id number] [place] [address]- 6456 Feb, [facility] [place] [facility] [address] [id number] [place] [address]- 7543 Jan, [facility] [place] [facility] [address] [id number] [place] [address]- 7605 20 Jan, 2013 [facility] [place] [facility] [address] [id number] [place] [address]- 4846 18 Jan, 2013 [facility] [place] [facility] [address] [id number] [place] [address]- 4653 18 Jan, 2013 [facility] [place] [facility] [address] [id number] [place] [address]- 8312 12 Jan, 2013 [facility] [place] [facility] [address] [id number] [place] [address]- 6424 12 Jan, 2013 [facility] [place] [facility] [address] [id number] [place] [address]- 4777 12 Jan, 2014 [facility] [place] [facility] [address] [id number] [place] [address]- 5942 12 Jan, 2013 [facility] [place] [facility] [address] [id number] [place] [address]- 2899 11 Jan, 2014 [facility] [place] [facility] [address] [id number] [place] [address]- 5002 11 Jan, 2014 [facility] [place] [facility] [address] [id number] [place] [address]- 2512 10 Jan, 2014 [facility] [place] [facility] [address] [id number] [place] [address]- 2932 Jan, [facility] [place] [facility] [address] [id number] [place] [address]- 7840 Oct, [facility] [place] [facility] [address] [id number] [place] [address]- 6542 Oct, [facility] [place] [facility] [address] [id number] [place] [address]- 5934 Oct, [facility] [place] [facility] [address] [id number] [place] [address]- 9804 Oct, [facility] [place] [facility] [address] [id number] [place] [address]- 2546 Jun, [facility] [address] [id number] [place] [address]- 6479 Jun, [facility] [place] [facility] [address] [id number] [place] [address]- 2724 Jun, [facility] [place] [facility] [address] [id number] [place] [address]- 3635 Jun, [facility] [place] [facility] [address] [id number] [place] [address]- 3801 Apr, [facility] [place] [facility] [address] [id number] [place] 0259 Apr, [facility] [place] [facility] [address] [id number] [place] [address]- 9146 Feb, [facility] [address] [id number] [place] [address]- 6458 Feb, [facility] [place] [facility] [address] [id number] [place] [address]- 3711 Dec, [facility] [place] [facility] [address] [id number] [place] [address]- 4791 Dec, [facility] [place] [facility] [address] [facility] [id number] [place] [address]- 4825 Nov, [facility] [place] [facility] [address] [id number] [place] [address]- 0992 Nov, [facility] [place] [facility] [address] [id number] [address]- 9635 Nov, [facility] [place] [facility] [address] [id number] [place] [address]- 4248 Oct, [facility] [place] [facility] [address] [id number] [place] [address]- 7003 September, [facility] [place] [facility] [address] [facility] [id number] [place] [address]- 4883 September, [facility] [place] [facility] [address] [id number] [place] [address]- 0924 Aug, [facility] [address] [id number] [place] [address]- 8289 Aug, [facility] [place] [facility] [address] [id number] [place] [address]- 6670 Aug, [facility] [address] [id number] [place] [address]- 9720 Aug, [facility] [place] [facility] [address] [id number] [place] [address]- 6550 Aug, [facility] [place] [facility] [address] [id number] [place] [address]- 4820 Aug, [facility] [address] [id number] [place] [address]- 0798 Jul, [facility] [address] [id number] [place] [address]- 9014 Jul, [facility] [address] [id number] [place] [address]- 8609 Jul, [facility] [address] [id number] [place] [address]- 3259 Jul, [facility] [address] [id number] [place] [address]- 2747 Jul, [facility] [place] [facility] [address] [id number] [place] [address]- 2743 Jul, [facility] [place] [facility] [address] [id number] [place] [address]- 1019 Jun, [facility] [place] [facility] [address] [id number] [place] [address]- 5613 Jun, [facility] [place] [facility] [address] [id number] [place] [address]- 8814 May, [facility] [place] [facility] [address] [id number] [place] [address]- 5419 May, [facility] [place] [facility] [address] [id number] [place] [address]- 9308 Apr, [facility] [place] [facility] [address] [id number] [place] [address] Apr, [facility] [place] [facility] [address] [facility] [id number] [place] [address] Apr, [facility] [place] [facility] [address] [id number] [place] [address] Apr, [facility] [place] [facility] [address] [id number] [place] [address] Apr, [facility] [place] [facility] [address] [id number] [place] [address] Mar, [facility] [place] [facility] [address] [id number] [place] [address] Mar, [facility] [place] [facility] [address] [id number], [place] [address] Mar, [facility] [place] [facility] [address] [id number] [place] [address] Mar, [facility] [place] [facility] [address] [id number] [place] [address] Mar, [facility] [place] [facility] [address] [id number], [place] [address] Mar, [facility] [place] [facility] [address] [id number], [place] [address] Mar, [facility] [place] [facility] [address] [id number], [place] [address] Feb, [facility] [place] [facility] [address] [id number], [place] [address] Feb, [facility] [place] [facility] [address] [id number], [place] [address] Feb, [facility] [place] [facility] [address] [id number] [place] [address] Feb, [facility] [address] [id number] [place] [address] Dec, [facility] [place] [facility] [address] [id number] [place] [address] Nov, [facility] [address] [id number] [place] [address] Nov, [facility] [place] [facility] [address] [id number] [place] [address] Oct, [facility] [address] [id number] [place] [address] Oct, [facility] [place] [facility] [address] [id number] [place] [address] Oct, [facility] [address] [id number] [place] [address] Oct, [facility] [address] [id number] [place] [address] Oct, [facility] [place] [facility] [address] [id number] [place] [address] Oct, [facility] [address] [id number] [place] [address] Oct, [facility] [place] [facility] [address] [id number] [place] [address] Aug, [facility] [place] [facility] [address] [id number] [place] [address] Jul, [facility] [place] [facility] [address] [address] [id number] [place] [address] Jul, [facility] [place] [facility] [address] [id number] [place] [address] 15 Jul, 2011 [facility] [place] [facility] [address] [id number] [place] [address] Jul, [facility] [place] [facility] [address] [id number] [place] [address] Jul, [facility] [place] [facility] [address] [id number] [place] [address] Jul, [facility] [place] [facility] [address] [id number] [place] [address] Jul, [facility] [place] [facility] [address] [id number] [place] [address] Jun, [facility] [place] [facility] [address] [id number] [place] [address] May, [facility] [place] [facility] [address] [id number] [place] [address] May, [facility] [place] [facility] [address] [facility] [id number] [place] [address] May, [facility] [place] [facility] [address] [id number] [place] [address] Apr, [facility] [place] [facility] [address] [id number] [place] [address] Apr, [facility] [place] [facility] [address] [facility] [id number] [place] [address] Apr, [facility] [place] [facility] [address] [facility] [id number] [place] [address] Apr, [facility] [place] [facility] [address] [id number], [place] [address] Apr, [facility] [place] [facility] [address] [id number] [place] [address] Apr, [facility] [place] [facility] [address] [id number] [place] [address] Mar, [facility] [place] [facility] [address] [facility] [id number], [place] [address] Mar, [facility] [place] [facility] [address] [id number], [place] [address] Mar, [facility] [place] [facility] [address] [id number] [place] [address] Mar, [facility] [place] [facility] [address] [id number] [place] [address] Mar, [facility] [place] [facility] [address] [id number] [place] [address] Mar, [facility] [place] [facility] [address] [id number] [place] [address] Mar, [facility] [place] [facility] [address] [id number] [place] [address] Dec, [facility] [place] [facility] [address] [id number] [place] [address] Aug, [facility] [place] [facility] [address] [facility] [id number] [place] [address] Apr, [facility] [place] [facility] [address] [id number] [place] [address] Mar, [facility] [place] [facility] [address] [facility] [id number] [place] [address] Mar, [facility] [place] [facility] [address] [facility] [id number] [place] [address] Mar, [facility] [place] [facility] [address] [id number], [place] [address] Mar, [facility] [place] [facility] [address] [id number], [place] [address] September, [facility] [place] [facility] [address] [id number] [place] [address] Mar, [facility] [place] [facility] [address] [id number] [place] [address] Feb, [facility] [place] [facility] [address] [facility] [id number] [place] [address] Oct, [facility] [place] [facility] [address] [facility] [id number] [place] [address] September, [facility] [address] [facility] [id number], [place] [address] Apr, [facility] [address] [facility] [id number] [place] [address] Mar, IMMUNIZATIONS No Known Immunizations SOCIAL HISTORY Never Assessed REASON FOR VISIT Discuss Med Changes-[place]wood[place], feet are swollen PLAN OF CARE Activity Details Follow Up 2 Months; BP check in 2 wk Reason:HTN VITAL SIGNS Height 65 in 2017-09-28 Weight 279.8 lbs 2017-09-28 Temperature 98.4 degrees Fahrenheit 2017-09-28 Heart Rate 72 bpm 2017-09-28 Respiratory Rate 20 2017-09-28 BMI 46.56 kg/m2 2017-09-28 Blood pressure systolic 124 mmHg 2017-09-28 Blood pressure diastolic 64 mmHg 2017-09-28 MEDICATIONS Medication Instructions Dosage Frequency Start Date End Date Duration Status Vitamin C 500 mg 1 tablet by Oral route 1 time per day May, Active Zofran 8 MG Orally every 8 hours, PRN 1 tablet Jun, 03 days Active Tramadol HCl 50 mg Orally once daily as needed 1 tablet as needed SeptemberOct, 28 days Active Calcium 600 MG Active Fluticasone Propionate 50 MCG/ACT Nasally Once a day 1 spray in each nostril 24h 30 Active Gabapentin 100 mg Orally 2 times a day 1 capsule 12h 90 Active Omeprazole 40 mg Orally Once a day 1 capsule 24h Active Triamcinolone Acetonide 0.1 % Externally Twice a day 1 application to affected area 12h 7 Active Atorvastatin Calcium 10 mg Orally Once a day 1 tablet 24h September, 30 day(s) Active Multivitamin Active Amlodipine Besylate 5 mg Orally Once a day 1 tablet 24h September, 30 day(s) Active Hydrochlorothiazide 12.5 MG Orally Once a day 1 tablet in the morning 24h September, 30 day(s) Active Toprol XL 200 mg Orally Once a day 1 tablets 24h Active Symbicort 160-4.5 MCG/ACT Inhalation Twice a day sample today 1 puffs May, Active Lisinopril 20 mg Orally Once a day 1 tablet 24h 90 Active Proventil HFA 90 mcg/actuation 2 puffs by Inhalation route 4 times per day PRN 16 May, 2014 Active Clonidine HCl 0.1 MG/24HR Transdermal once weekly 1 patch to skin September 30 day(s) Active RESULTS No Results PROCEDURES No Known [...]
--- OUTSIDE RECORDS SUMMARY | 2018-02-08 02:15 | XMS REPORT ---
Author Author MARKUS BALDWIN Organization [facility] Address [address] [place] [address] Care Team Providers Care Laryngologist Name Role Phone MARKUS BALDWIN Unavailable PROBLEMS Type Condition ICD9-CM Code ZAI97-IS Code Onset Dates Condition Status SNOMED Code Problem Stenosis of right renal artery I70.1 Active [id number] Problem Seasonal allergic rhinitis, unspecified allergic rhinitis trigger J30.2 Active 129178177 Problem Abdominal aortic aneurysm (AAA) without rupture I71.4 Active 02790332 Problem Mixed hyperlipidemia E78.2 Active 915690676 Problem Other chronic pain G89.29 Active 03376801 Problem PVD (peripheral vascular disease) I73.9 Active 259408721 Problem Prediabetes R73.03 Active 320347754 Problem Arthritis of knee M17.10 Active 108855903 Problem Renal artery stenosis I70.1 Active 160235232 Problem Peripheral vascular disease I73.9 Active 380415403 Problem Dysphagia, unspecified R13.10 Active 17942790 Problem Hepatic steatosis K76.0 Active 157841670 Problem Urinary, incontinence, stress female N39.3 Active 45574955 Problem Anemia of chronic disease D63.8 Active 083558271 Problem 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 028943883 Problem Chronic kidney disease, unspecified N18.9 Active 560587614 Problem Essential hypertension I10 Active 21087482 Problem Cervicalgia M54.2 Active 0840948004552 Problem Gastroesophageal reflux disease without esophagitis K21.9 Active 423486736 ALLERGIES Substance Reaction Event Type Date Status Tekturna Unknown Drug Allergy Dec, Active Niacin rash Drug Allergy Dec, Active Macrobid anaphylaxis Drug Allergy Dec, Active Iodine (IV contrast) Drug Allergy Dec, Active Ibuprofen (All NSAIDs) Drug Allergy Dec, Active Bactrim resp distress Drug Allergy Dec, Active ENCOUNTERS Encounter Location Date Diagnosis [place] [id number] [place] [address] 39281- 8554 Dec, [place] [address] 74545- 9209 Dec, Essential hypertension I10 ; Chronic kidney disease, unspecified N18.9 ; Mixed hyperlipidemia E78.2 ; Tinea corporis B35.4 ; Right hip pain M25.551 and Acute pain of right knee M25.561 [place] [address] 74763- 4502 16 Dec, 2017 Herpes zoster without complication B02.9 ; Dandruff L21.0 ; Diarrhea, unspecified type R19.7 and BMI 45.0-49.9, adult Z68.42 [place] [address] 77675- 4281 September, Chronic kidney disease, unspecified N18.9 ; Essential hypertension I10 ; Mixed hyperlipidemia E78.2 and BMI 45.0-49.9, adult Z68.42 [place] [id number] [place] [address] 64116- 4805 September, [place] [address] 25130- 4189 September, Essential hypertension I10 ; Chronic kidney disease, unspecified N18.9 ; Prediabetes R73.03 ; Low back pain M54.5 ; Other chronic pain G89.29 ; Arthritis of knee M17.10 ; Pure hyperglyceridemia E78.1 ; Anemia of chronic disease D63.8 and BMI 45.0-49.9, adult Z68.42 [place] [id number] [place] [address] 29290- 6457 Aug, [place] [address] 19559- 5963 Jul, Abdominal aortic aneurysm (AAA) without rupture I71.4 ; PVD (peripheral vascular disease) I73.9 ; Renal artery stenosis I70.1 and Essential hypertension I10 [place] [id number] [place] [address] 96216- 0273 30 May, 2017 Essential hypertension I10 ; Pure hyperglyceridemia E78.1 ; Abdominal aortic aneurysm (AAA) without rupture I71.4 ; Chronic kidney disease, unspecified N18.9 ; Gastroesophageal reflux disease without esophagitis K21.9 ; 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 ; Stenosis of right renal artery I70.1 ; Anemia of chronic disease D63.8 and Prediabetes R73.03 [place] [address] 88082- 7098 May, Tinea corporis B35.4 and Viral URI J06.9 [place] [address] 26401- 5124 May, [place] [address] 34331- 2213 Apr, [place] [address] 85895- 4705 Apr, Cervical radiculopathy M54.12 [facility] [address] 83842 -4869 Apr, Flank pain R10.9 and Acute pyelonephritis N10 [place] [address] 40257- 0573 Apr, [place] [address] 04755- 0220 Mar, [place] [id number] [place] [address] 92122- 1529 Feb, Pain of right shoulder region M25.511 [place] [address] 45495- 3939 Feb, History of glaucoma Z86.69 ; Vision changes H53.9 ; Abdominal aortic aneurysm (AAA) without rupture I71.4 ; Xerosis of skin L85.3 and Pain in right shoulder M25.511 [place] [id number] [place] [address] 26344- 5741 Feb, [place] [address] 12337- 8852 Jan, Essential hypertension I10 ; Pure hyperglyceridemia E78.1 ; Chronic kidney disease, unspecified N18.9 ; Gastroesophageal reflux disease without esophagitis K21.9 ; 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 pylori infection A04.8 and Prediabetes R73.03 [facility] [id number] [place] [address] 32445 -7961 Oct, Seasonal allergic rhinitis, unspecified allergic rhinitis trigger J30.2 [place] [id number] [place] [address] 22108- 6761 September, Eustachian tube dysfunction, left H69.82 and Candidiasis of breast B37.89 [place] [id number] [place] [address] 15716- 0094 Jul, Blood glucose abnormal R73.09 ; Essential hypertension I10 ; Pure hyperglyceridemia E78.1 ; Chronic kidney disease, unspecified N18.9 ; Gastroesophageal reflux disease without esophagitis K21.9 ; 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 ; Abdominal aortic aneurysm (AAA) without rupture I71.4 ; Stenosis of right renal artery I70.1 ; Anemia of chronic disease D63.8 and Acute non-recurrent maxillary sinusitis J01.00 [place] [id number] [place] [address] 10601- 3893 Jun, Acute non-recurrent maxillary sinusitis J01.00 ; Acute mucoid otitis media of left ear H65.112 ; Nausea R11.0 and Fever and chills R50.9 [place] [id number] [place] [address] 91832- 7865 May, Acute right flank pain R10.9 [place] [id number] [place] [address] 83110- 8005 Apr, Acute nasopharyngitis J00 ; Pure hyperglyceridemia E78.1 and Chronic kidney disease, unspecified N18.9 [place] [id number] [place] [address] 31297- 1895 Apr, [place] [id number] [place] [address] 44495- 4199 Apr, Blood glucose abnormal R73.09 ; Essential hypertension I10 ; Pure hyperglyceridemia E78.1 ; Chronic kidney disease, unspecified N18.9 ; Gastroesophageal reflux disease without esophagitis K21.9 ; 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0 and Upper respiratory tract infection, unspecified type J06.9 [facility] [id number] [place] [address] 87705- 7559 Jan, [place] [id number] [place] [address] 48086- 3900 Jan, [facility] [id number] [place] [address] 34165- 0891 Dec, [place] [id number] [place] [address] 41553- 9186 Dec, Anemia of chronic disease D63.8 ; Essential hypertension I10 ; Pure hyperglyceridemia E78.1 ; Chronic kidney disease, unspecified N18.9 ; Gastroesophageal reflux disease without esophagitis K21.9 ; 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 and Pain in right knee M25.561 [place] [id number] [place] [address] 25817- 9316 Dec, Left shoulder strain, subsequent encounter S46.912D ; Urinary frequency R35.0 ; Lung nodule, solitary R91.1 ; Essential hypertension I10 and Acute cystitis without hematuria N30.00 [place] [id number] [place] [address] 44323- 9351 Nov, Left-sided chest wall pain R07.89 and Abnormal chest xray R93.8 [place] [id number] [place] [address] 15493- 9807 Nov, Pain of right lower extremity M79.604 ; Swelling of right lower extremity M79.89 ; Diarrhea, unspecified R19.7 ; Nausea with vomiting, unspecified R11.2 ; Left-sided chest wall pain R07.89 ; Chronic kidney disease, unspecified N18.9 ; Gastroesophageal reflux disease without esophagitis K21.9 and Other seasonal allergic rhinitis J30.2 [place] [id number] [place] [address] 49081- 6147 September, Essential hypertension I10 ; Chronic kidney disease, unspecified N18.9 ; Anemia of chronic disease D63.8 ; Pure hyperglyceridemia E78.1 ; Peripheral vascular disease I73.9 ; Abnormal glucose R73.09 ; 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 ; Gastroesophageal reflux disease without esophagitis K21.9 ; Allergic rhinitis J30.9 and Rash R21 [address] 32517- 8012 Aug, Abdominal pain R10.9 and Constipation K59.[address] 84016- 4782 Jul, Injury of toe on right foot S99.921A [place] [address] 80024- 7856 Jul, [address] 48976- 8331 Jul, Essential hypertension I10 ; Chronic kidney disease, unspecified N18.9 ; Anemia of chronic disease D63.8 ; Pure hyperglyceridemia E78.1 ; Peripheral vascular disease I73.9 ; Abnormal glucose R73.09 ; 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 ; Gastroesophageal reflux disease without esophagitis K21.9 and Allergic rhinitis J30.9 [place] [address] 91076- 5359 Jun, Low back pain M54.5 [place] [address] 12923- 4864 Jun, [place] [address] 92628- 3030 May, URI (upper respiratory infection) J06.9 [place] [id number] [place] [address] 78700- 2874 15 Apr, 2015 Essential hypertension I10 [place] [address] 88595- 0585 10 Apr, 2015 Essential hypertension I10 ; Chronic kidney disease, unspecified N18.9 ; Anemia of chronic disease D63.8 ; Pure hyperglyceridemia E78.1 ; Peripheral vascular disease I73.9 ; Abnormal glucose R73.09 ; URI ( upper respiratory infection) J06.9 ; 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 ; Gastroesophageal reflux disease without esophagitis K21.9 and Cough R05 [place] [address] 71786- 6488 Mar, Flank pain R10.9 and URI (upper respiratory infection) J06.9 [place] [address] 85432- 8912 Mar, Right-sided low back pain without sciatica M54.5 and Hematuria, unspecified R31.9 [place] [address] 88919- 5656 Mar, Hypopigmentation L81.9 and Hyperpigmentation L81.9 [place] [address] 05049- 6158 Mar, [place] [id number] [place] [address] 84621- 7616 Mar, Acute cystitis with hematuria N30.01 [place] [id number] [place] [address] 87916- 7768 Mar, [place] [address] 13603- 2713 Feb, Furuncle L02.92 ; Hypopigmentation L81.9 ; Hyperpigmentation L81.9 ; Urinary frequency R35.0 ; Screening for malignant neoplasm of cervix Z12.4 ; Vaginal discharge N89.8 ; Urinary, incontinence, stress female N39.3 and Vaginal irritation N89.8 [place] [id number] [place] [address] 13161- 9797 Jan, Muscle spasm 728.85 ; Unspecified peripheral vascular disease 443.9 ; Benign essential hypertension 401.1 ; Chronic renal insufficiency 585.9 ; Chronic constipation 564.00 ; GERD (gastroesophageal reflux disease) 530.81 ; Hyperlipidemia 272.4 and Chronic leg pain 729.[address] 98346- 8079 Jan, Sinusitis 473.[address] 02740- 7310 Dec, [address] 58021- 2450 Dec, Acute bronchitis 466.[address] 46760- 1913 Dec, Acute bronchitis 466.0 [place] [address] 69010- 2295 Dec, Unspecified episodic mood disorder 296.[address] 82976- 7895 Dec, Visit for suture removal V58.32 [place] [id number] [place] [address] 21149- 2371 Nov, Allergic rhinitis 477.9 and Onychomycosis 110.[address] 59593- 6965 Oct, Muscle spasm 728.85 ; Benign essential hypertension 401.1 ; Chronic renal insufficiency 585.9 ; Chronic constipation 564.00 ; GERD ( gastroesophageal reflux disease) 530.81 and Hyperlipidemia 272.4 [place] [id number] [place] [address] 45593- 8994 Oct, Otalgia of left ear 388.[address] 53554- 7436 Oct, Unspecified episodic mood disorder 296.90 [facility] [address] [address]- 4456 September, Unspecified episodic mood disorder 296.90 [facility] [address] [address]- 3566 September, Unspecified episodic mood disorder 296.90 [facility] [address] [address] September, Urinary frequency 788.41 and Constipation 564.00 [facility] [id number] [place] [address] 86433- 5813 Aug, [facility] [id number] [place] [address] 82657- 1481 Aug, [facility] [address] [place] [address] 49208- 8044 Jul, [facility] [address] [address]- 0220 Jul, [facility] [address]- 1417 Jul, [facility] [address] [address]- 0736 Jul, [facility] [address] [address]- 9254 Jul, [facility] [address] [address]- 3477 Jul, [facility] [address], [place] [address]- 8962 Jul, [facility] [address], [place] [address]- 5956 Jul, [facility] [address], [place] [address]- 2536 Jul, [facility] [place] [facility] [address] [id number] [place] [address]- 7781 Jul, [facility] [place] [facility] [address] [id number] [place] [address]- 6659 Jun, [facility] [place] [facility] [address] [id number] [place] [address]- 1683 Jun, [facility] [place] [facility] [address] [id number] [place] [address]- 2778 May, [facility] [place] [facility] [address] [id number] [place] [address]- 8891 May, [facility] [place] [facility] [address] [id number] [place] [address]- 2826 May, [facility] [place] [facility] [address] [id number] [place] [address]- 7605 May, [facility] [place] [facility] [address] [id number] [place] [address]- 2443 May, [facility] [place] [facility] [address] [id number] [place] [address]- 5027 May, [facility] [place] [facility] [address] [id number] [place] [address]- 9513 May, [facility] [place] [facility] [address] [id number] [place] [address]- 6500 May, [facility] [place] [facility] [address] [id number] [place] [address]- 5638 May, [facility] [place] [facility] [address] [id number] [place] [address]- 3079 May, [facility] [place] [facility] [address] [id number] [place] [address]- 8305 May, [facility] [place] [facility] [address] [id number] [place] [address]- 8630 May, [facility] [place] [facility] [address] [id number], [place] [address]- 0399 05 May, 2014 [facility] [place] [facility] [address] [id number] [place] [address]- 2716 Feb, [facility] [place] [facility] [address] [id number] [place] [address]- 3857 07 Feb, 2014 [facility] [place] [facility] [address] [id number] [place] [address]- 9850 20 Jan, 2013 [facility] [place] [facility] [address] [id number] [place] [address]- 7589 20 Jan, 2013 [facility] [place] [facility] [address] [id number] [place] [address]- 8615 18 Jan, 2013 [facility] [place] [facility] [address] [id number] [place] [address]- 0932 18 Jan, 2013 [facility] [place] [facility] [address] [id number] [place] [address]- 5313 12 Jan, 2013 [facility] [place] [facility] [address] [id number] [place] [address]- 1408 12 Jan, 2013 [facility] [place] [facility] [address] [id number] [place] [address]- 0595 12 Jan, 2013 [facility] [place] [facility] [address] [id number] [place] [address]- 1821 12 Jan, 2013 [facility] [place] [facility] [address] [id number], [place] [address]- 7035 11 Jan, 2013 [facility] [place] [facility] [address] [id number], [place] [address]- 6736 11 Jan, 2013 [facility] [place] [facility] [address] [id number] [place] [address]- 1205 10 Jan, 2014 [facility] [place] [facility] [address] [id number] [place] [address]- 1185 10 Jan, 2013 [facility] [place] [facility] [address] [id number] [place] [address]- 6470 26 Oct, 2013 [facility] [place] [facility] [address] [id number] [place] [address]- 1854 Oct, [facility] [place] [facility] [address] [id number] [place] [address]- 5413 Oct, [facility] [place] [facility] [address] [id number] [place] [address]- 2316 Oct, [facility] [place] [facility] [address] [id number] [place] [address]- 1546 Jun, [facility] [place] [facility] [address] [id number] [place] [address]- 6967 Jun, [facility] [place] [facility] [address] [id number] [place] [address]- 1176 Jun, [facility] [place] [facility] [address] [id number] [place] [address]- 5517 Jun, [facility] [place] [facility] [address] [id number] [place] [address]- 5456 Apr, [facility] [place] [facility] [address] [id number] [place] [address]- 2282 Apr, [facility] [place] [facility] [address] [id number] [place] [address]- 8924 Feb, [facility] [place] [facility] [address] [id number] [place] 9416 Feb, [facility] [place] [facility] [address] [id number] [place] [address]- 9213 Dec, [facility] [place] [facility] [address] [id number] [place] [address] 2541 Dec, [facility] [place] [facility] [address] [id number] [place] [address]- 3336 Nov, [facility] [place] [facility] [address] [id number] [place] [address]- 2546 Nov, [facility] [place] [facility] [address] [id number] [place] [address]- 3289 Nov, [facility] [address] [id number] [place] [address]- 4156 Oct, [facility] [place] [facility] [address] [id number] [place] [address]- 9880 September, [facility] [place] [facility] [address] [id number] [place] [address]- 2615 September, [facility] [place] [facility] [address] [id number] [place] [address]- 8583 Aug, [facility] [address] [id number] [place] [address]- 6076 Aug, [facility] [place] [facility] [address] [id number] [place] [address]- 5765 Aug, [facility] [place] [facility] [address] [id number] [place] [address]- 0252 Aug, [facility] [place] [facility] [address] [id number] [place] [address]- 1202 Aug, [facility] [place] [facility] [address] [id number] [place] [address]- 1874 Aug, [facility] [place] [facility] [address] [id number] [place] [address]- 8342 Jul, [facility] [place] [facility] [address] [id number] [place] [address]- 1457 Jul, [facility] [place] [facility] [address] [id number], [place] [address]- 5575 21 Jul, 2012 [facility] [place] [facility] [address] [id number] [place] [address]- 3650 15 Jul, 2012 [facility] [place] [facility] [address] [id number] [place] [address]- 8454 11 Jul, 2012 [facility] [place] [facility] [address] [id number] [place] [address]- 4226 07 Jul, 2012 [facility] [place] [facility] [address] [id number] [place] [address]- 4152 Jun, [facility] [address] [id number] [place] [address]- 1546 Jun, [facility] [place] [facility] [address] [id number] [place] [address]- 5756 May, [facility] [address] [id number] [place] [address]- 6099 May, [facility] [place] [facility] [address] [id number] [place] [address] 2549 Apr, [facility] [address] [id number] [place] [address]- 7372 Apr, [facility] [place] [facility] [address] [id number] [place] [address]- 2881 Apr, [facility] [address] [id number] [place] [address]- 8788 Apr, [facility] [place] [facility] [address] [id number] [place] [address]- 5068 Apr, [facility] [place] [facility] [address] [id number] [place] [address]- 6196 Mar, [facility] [place] [facility] [address] [id number] [place] [address]- 8435 Mar, [facility] [place] [facility] [address] [id number] [place] [address] 25[address] Mar, [facility] [place] [facility] [address] [id number] [place] [address] 25[address] Mar, [facility] [place] [facility] [address] [id number] [place] [address] Mar, [facility] [place] [facility] [address] [id number] [place] [address] Mar, [facility] [place] [facility] [address] [id number] [place] [address] Mar, [facility] [place] [facility] [address] [id number] [place] [address] Feb, [facility] [place] [facility] [address] [id number] [place] [address] Feb, [facility] [place] [facility] [address] [id number] [place] [address] Feb, [facility] [place] [facility] [address] [id number] [place] [address] Feb, [facility] [place] [facility] [address] [id number] [place] [address] Dec, [facility] [place] [facility] [address] [id number] [place] [address] Nov, [facility] [place] [facility] [address] [id number] [place] [address] Nov, [facility] [place] [facility] [address] [id number] [place] [address] Oct, [facility] [place] [facility] [address] [id number] [place] [address] Oct, [facility] [place] [facility] [address] [id number] [place] [address] Oct, [facility] [place] [facility] [address] [id number] [place] [address] Oct, [facility] [place] [facility] [address] [id number] [place] [address] Oct, [facility] [place] [facility] [address] [id number] [place] [address] Oct, [facility] [place] [facility] [address] [id number] [place] [address] Oct, [facility] [place] [facility] [address] [id number] [place] [address] Aug, [facility] [place] [facility] [address] [id number] [place] [address] Jul, [facility] [address] [id number] [place] [address] Jul, [facility] [place] [facility] [address] [id number] [place] [address] Jul, [facility] [place] [facility] [address] [id number] [place] [address] Jul, [facility] [place] [facility] [address] [id number] [place] [address] Jul, [facility] [place] [facility] [address] [id number] [place] [address] Jul, [facility] [place] [facility] [address] [id number] [place] [address] Jul, [facility] [address] [id number] [place] [address] Jun, [facility] [facility] [address] [id number] [place] [address] May, [facility] [address] [id number] [place] [address] May, [facility] [place] [facility] [address] [id number] [place] [address] May, [facility] [address] [id number] [place] [address] Apr, [facility] [place] [facility] [address] [id number] [place] [address] Apr, [facility] [place] [facility] [address] [id number] [place] [address] 16 Apr, 2011 [facility] [place] [facility] [address] [id number] [place] [address] 15 Apr, 2011 [facility] [place] [address] [id number] [place] [address] 07 Apr, 2011 [facility] [place] [facility] [address] [id number] [place] [address] 05 Apr, 2011 [facility] [address] [id number] [place] [address] Mar, [facility] [place] [address] [id number] [place] [address] Mar, [facility] [place] [facility] [address] [id number] [place] [address] Mar, [facility] [place] [facility] [address] [id number] [place] [address] Mar, [facility] [facility] [address] [id number] [place] [address] Mar, [facility] [facility] [address] [id number] [place] [address] Mar, [facility] [facility] [address] [id number] [place] [address] Mar, [facility] [address] [id number] [place] [address] Dec, [facility] [address] [id number] [place] [address] Aug, [facility] [address] [id number] [place] [address] Apr, [facility] [address] [id number] [place] [address] Mar, [facility] [address] [id number] [place] [address] Mar, [facility] [facility] [address] [id number] [place] [address] Mar, [facility] [address] [id number] [place] [address] Mar, [facility] [address] [id number] [place] [address] September, [facility] [address] [facility] [id number] [address] Mar, [facility] [id number] [place] [address] Feb, [facility] [address] [id number] [address] Oct, [facility] [id number] [address] September, [facility] [id number] [address] Apr, [facility] [id number] [place] [address] Mar, IMMUNIZATIONS No Known Immunizations SOCIAL HISTORY Never Assessed REASON FOR VISIT spider bite, dry/itchy skin on forehead along hair line -----DBennettRN, diarrhea x1 week, 2-4 stools daily PLAN OF CARE Activity Details Follow Up prn if not improving Reason: VITAL SIGNS Height 65 in 2017-12-20 Weight 283 lbs 2017-12-20 Temperature 98.6 degrees Fahrenheit 2017-12-20 Heart Rate 80 bpm 2017-12-20 Respiratory Rate 20 2017-12-20 BMI 47.09 kg/m2 2017-12-20 Blood pressure systolic 118 mmHg 2017-12-20 Blood pressure diastolic 72 mmHg 2017-12-20 MEDICATIONS Medication Instructions Dosage Frequency Start Date End Date Duration Status Clonidine HCl 0.1 MG/24HR Transdermal once weekly 1 patch to skin September 30 day(s) Active Calcium 600 MG Active Hydrochlorothiazide 12.5 MG Orally Once a day 1 tablet in the morning 24h September, 30 day(s) Active Amlodipine Besylate 5 mg Orally Once a day 1 tablet 24h September, 30 day(s) Active Proventil HFA 90 mcg/actuation 2 puffs by Inhalation route 4 times per day PRN May, Active Fluticasone Propionate 50 MCG/ACT Nasally Once a day 1 spray in each nostril 24h 30 Active Omeprazole 40 MG TAKE ONE (1) CAPSULE BY MOUTH ONCE DAILY 270 Active Zofran 8 MG Orally every 8 hours, PRN 1 tablet Jun, 03 days Active Multivitamin Active Vitamin C 500 mg 1 tablet by Oral route 1 time per day May, Active Atorvastatin Calcium 10 mg Orally Once a day 1 tablet 24h September, 30 day(s) Active Gabapentin 100 mg Orally 2 times a day 1 capsule 12h 90 Active Symbicort 160-4.5 MCG/ACT Inhalation Twice a day sample today 1 puffs May, Active Valtrex 1 GM Orally 3 times a day 1 tablet 8h Dec, Dec, 07 days Active Triamcinolone Acetonide 0.1 % Externally Twice a day 1 application to affected area 12h 7 Active Lisinopril 20 mg Orally Once a day 1 tablet 24h 90 Active Toprol XL 200 mg Orally Once a day 1 tablets 24h Active RESULTS No Results PROCEDURES No Known [...]
--- OUTSIDE RECORDS SUMMARY | 2018-02-08 02:16 | XMS REPORT ---
Author Author MARKUS BALDWIN [facility] Address [address] [place] [address] Care Team Providers Care Press Puller Name Role Phone MARKUS BALDWIN Unavailable PROBLEMS Type Condition ICD9-CM Code EEZ23-JN Code Onset Dates Condition Status SNOMED Code Problem Stenosis of right renal artery I70.1 Active [id number] Problem Seasonal allergic rhinitis, unspecified allergic rhinitis trigger J30.2 Active 345488644 Problem Abdominal aortic aneurysm (AAA) without rupture I71.4 Active 89833815 Problem Mixed hyperlipidemia E78.2 Active 157399173 Problem Other chronic pain G89.29 Active 39650476 Problem PVD (peripheral vascular disease) I73.9 Active 427424631 Problem Prediabetes R73.03 Active 683691981 Problem Arthritis of knee M17.10 Active 572672312 Problem Renal artery stenosis I70.1 Active 958303319 Problem Peripheral vascular disease I73.9 Active 070340305 Problem Dysphagia, unspecified R13.10 Active 81715928 Problem Hepatic steatosis K76.0 Active 628733812 Problem Urinary, incontinence, stress female N39.3 Active 54969909 Problem Anemia of chronic disease D63.8 Active 780775584 Problem 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 608989713 Problem Chronic kidney disease, unspecified N18.9 Active 710697852 Problem Essential hypertension I10 Active 17754440 Problem Cervicalgia M54.2 Active 3304826840192 Problem Gastroesophageal reflux disease without esophagitis K21.9 Active 205239916 ALLERGIES No Information ENCOUNTERS Encounter Location Date Diagnosis [facility] [id number] [address] Dec, [facility] [address] [id number] [address] Dec, [facility] [id number] [place] [address] 07944- 6520 September, Chronic kidney disease, unspecified N18.9 ; Essential hypertension I10 ; Mixed hyperlipidemia E78.2 and BMI 45.0-49.9, adult Z68.42 [facility] [id number] [place] [address] 23953- 7363 September, [facility] [facility] [address] [address]- 4[address] September, Essential hypertension I10 ; Chronic kidney disease, unspecified N18.9 ; Prediabetes R73.03 ; Low back pain M54.5 ; Other chronic pain G89.29 ; Arthritis of knee M17.10 ; Pure hyperglyceridemia E78.1 ; Anemia of chronic disease D63.8 and BMI 45.0-49.9, adult Z68.42 [facility] [address] 76856- 4262 Aug, [facility] [facility] [address] 67344- 3108 Jul, Abdominal aortic aneurysm (AAA) without rupture I71.4 ; PVD (peripheral vascular disease) I73.9 ; Renal artery stenosis I70.1 and Essential hypertension I10 [facility] [facility] [id number] [place] [address] 76801- 4097 May, Essential hypertension I10 ; Pure hyperglyceridemia E78.1 ; Abdominal aortic aneurysm (AAA) without rupture I71.4 ; Chronic kidney disease, unspecified N18.9 ; Gastroesophageal reflux disease without esophagitis K21.9 ; 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 ; Stenosis of right renal artery I70.1 ; Anemia of chronic disease D63.8 and Prediabetes R73.[address] [address]83- 0918 May, Tinea corporis B35.4 and Viral URI J06.[address] 10659- 2752 May, [place] [address] [address] Apr, [facility] [id number] [place] [address] 14783- 2189 14 Apr, 2017 Cervical radiculopathy M54.12 [facility] [id number] [place] [address] 61589 -1266 09 Apr, 2017 Flank pain R10.9 and Acute pyelonephritis N10 [facility] [id number] [place] [address] 89367- 8298 Apr, [place] [address] 06728- 7452 Mar, [facility] [facility] [id number] [place] [address] 96490- 4769 Feb, Pain of right shoulder region M25.511 [facility] [id number] [place] [address] 77905- 2458 Feb, History of glaucoma Z86.69 ; Vision changes H53.9 ; Abdominal aortic aneurysm (AAA) without rupture I71.4 ; Xerosis of skin L85.3 and Pain in right shoulder M25.511 [facility] [id number] [place] [address] 03418- 5997 Feb, [facility] [id number] [place] [address] 28814- 8654 13 Jan, 2017 Essential hypertension I10 ; Pure hyperglyceridemia E78.1 ; Chronic kidney disease, unspecified N18.9 ; Gastroesophageal reflux disease without esophagitis K21.9 ; 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 ; Stenosis of right renal artery I70.1 ; Anemia of chronic disease D63.8 ; Prediabetes R73.03 ; Pain of right shoulder region M25.511 and Homeless Z59.0 [facility] [id number] [place] [address] 91813- 0296 12 Jan, 2017 Neck pain M54.2 and Seasonal allergic rhinitis, unspecified allergic rhinitis trigger J30.2 [facility] [id number] [place] [address] 73201- 1671 Dec, [facility] [address] 80690- 5248 Dec, [facility] [facility] [id number] [place] [address] 80721- 8663 Dec, Blood glucose abnormal R73.09 ; Essential [...] H. pylori infection A04.8 and Prediabetes R73.03 [facility] [id number] [place] [address] 91582 -3892 Oct, Seasonal allergic rhinitis, unspecified allergic rhinitis trigger J30.2 [facility] [id number] [place] [address] 96740- 9628 September, Eustachian tube dysfunction, left H69.82 and Candidiasis of breast B37.89 [place] [id number] [place] [address] 96147- 8747 Jul, Blood glucose abnormal R73.09 ; Essential hypertension I10 ; Pure hyperglyceridemia E78.1 ; Chronic kidney disease, unspecified N18.9 ; Gastroesophageal reflux disease without esophagitis K21.9 ; 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 ; Abdominal aortic aneurysm (AAA) without rupture I71.4 ; Stenosis of right renal artery I70.1 ; Anemia of chronic disease D63.8 and Acute non-recurrent maxillary sinusitis J01.00 [facility] [address] [place] [address] 45028- 3140 Jun, Acute non-recurrent maxillary sinusitis J01.00 ; Acute mucoid otitis media of left ear H65.112 ; Nausea R11.0 and Fever and chills R50.9 [facility] [id number] [place] [address] 97289- 8637 May, Acute right flank pain R10.9 [facility] [id number] [place] [address] 89284- 7975 Apr, Acute nasopharyngitis J00 ; Pure hyperglyceridemia E78.1 and Chronic kidney disease, unspecified N18.9 [place] [address] 29660- 7407 Apr, [place] [address] 65402- 7270 Apr, Blood glucose abnormal R73.09 ; Essential hypertension I10 ; Pure hyperglyceridemia E78.1 ; Chronic kidney disease, unspecified N18.9 ; Gastroesophageal reflux disease without esophagitis K21.9 ; 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 ; Abdominal aortic aneurysm (AAA) without rupture I71.4 ; Stenosis of right renal artery I70.1 ; RUQ pain R10.11 and Anemia of chronic disease D63.8 [facility] [facility] [id number] [place] [address] 90318- 4903 Mar, Blood glucose abnormal R73.09 [facility] [id number] [place] [address] 64857- 3892 Mar, Cellulitis of right lower leg L03.115 [facility] [id number] [place] [address] 17270 -1833 Feb, [facility] [id number] [place] [address] 74906- 5928 Feb, Dysuria R30.0 and Upper respiratory tract infection, unspecified type J06.9 [facility] [facility] [id number] [place] [address] 67407- 6731 Jan, [facility] [facility] [id number] [place] [address] 55390- 9375 Jan, [place] [address] [place] [address]- 0533 Dec, [place] [address] 24978- 7350 Dec, Anemia of chronic disease D63.8 ; Essential hypertension I10 ; Pure hyperglyceridemia E78.1 ; Chronic kidney disease, unspecified N18.9 ; Gastroesophageal reflux disease without esophagitis K21.9 ; 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 and Pain in right knee M25.561 [place] [address] 43732- 8688 Dec, Left shoulder strain, subsequent encounter S46.912D ; Urinary frequency R35.0 ; Lung nodule, solitary R91.1 ; Essential hypertension I10 and Acute cystitis without hematuria N30.[address] 34324- 1781 Nov, Left-sided chest wall pain R07.89 and Abnormal chest xray R93.[address] 77023- 3228 Nov, Pain of right lower extremity M79.604 ; Swelling of right lower extremity M79.89 ; Diarrhea, unspecified R19.7 ; Nausea with vomiting, unspecified R11.2 ; Left-sided chest wall pain R07.89 ; Chronic kidney disease, unspecified N18.9 ; Gastroesophageal reflux disease without esophagitis K21.9 and Other seasonal allergic rhinitis J30.2 [place] [address] 37459- 9848 September, Essential hypertension I10 ; Chronic kidney disease, unspecified N18.9 ; Anemia of chronic disease D63.8 ; Pure hyperglyceridemia E78.1 ; Peripheral vascular disease I73.9 ; Abnormal glucose R73.09 ; 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 ; Gastroesophageal reflux disease without esophagitis K21.9 ; Allergic rhinitis J30.9 and Rash R21 [address] 02542- 0744 Aug, Abdominal pain R10.9 and Constipation K59.00 [facility] [id number] [place] [address] 40424- 2080 31 Jul, 2015 Injury of toe on right foot S99.921A [facility] [facility] [id number] [place] [address] 07762- 8069 14 Jul, 2015 [facility] [address] 65989- 4578 Jul, Essential hypertension I10 ; Chronic kidney disease, unspecified N18.9 ; Anemia of chronic disease D63.8 ; Pure hyperglyceridemia E78.1 ; Peripheral vascular disease I73.9 ; Abnormal glucose R73.09 ; 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 ; Gastroesophageal reflux disease without esophagitis K21.9 and Allergic rhinitis J30.9 [facility] [id number] [place] [address] 19315- 0991 Jun, Low back pain M54.5 [facility] [address] 73756- 1546 Jun, [facility] [id number] [place] [address] 69102- 3334 May, URI (upper respiratory infection) J06.9 [facility] [id number] [place] [address] 87907- 8835 Apr, Essential hypertension I10 [address] 75966- 5670 10 Apr, 2015 Essential hypertension I10 ; Chronic kidney disease, unspecified N18.9 ; Anemia of chronic disease D63.8 ; Pure hyperglyceridemia E78.1 ; Peripheral vascular disease I73.9 ; Abnormal glucose R73.09 ; URI ( upper respiratory infection) J06.9 ; 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 ; Gastroesophageal reflux disease without esophagitis K21.9 and Cough R05 [place] [id number] [place] [address] 03812- 0343 Mar, Flank pain R10.9 and URI (upper respiratory infection) J06.9 [facility] [address] 75963- 7381 Mar, Right-sided low back pain without sciatica M54.5 and Hematuria, unspecified R31.9 [facility] [address] 40500- 9741 Mar, Hypopigmentation L81.9 and Hyperpigmentation L81.[address] 74458- 9873 Mar, [address] 76899- 6665 Mar, Acute cystitis with hematuria N30.[address] 39909- 1227 Mar, [address] 03962- 9412 Feb, Furuncle L02.92 ; Hypopigmentation L81.9 ; Hyperpigmentation L81.9 ; Urinary frequency R35.0 ; Screening for malignant neoplasm of cervix Z12.4 ; Vaginal discharge N89.8 ; Urinary, incontinence, stress female N39.3 and Vaginal irritation N89.8 [place] [place] [id number] [place] [address] 77556- 9868 Jan, Muscle spasm 728.85 ; Unspecified peripheral vascular disease 443.9 ; Benign essential hypertension 401.1 ; Chronic renal insufficiency 585.9 ; Chronic constipation 564.00 ; GERD (gastroesophageal reflux disease) 530.81 ; Hyperlipidemia 272.4 and Chronic leg pain 729.[address] 07323- 0865 Jan, Sinusitis 473.9 [place] [address] 98264- 0040 Dec, [address] 84358- 6687 Dec, Acute bronchitis 466.0 [place] [address] [place] [address] 07595- 6578 Dec, Acute bronchitis 466.0 [facility] [id number] [place] [address] 28001- 4267 Dec, Unspecified episodic mood disorder 296.90 [place] [id number] [place] [address] 68884- 9737 Dec, Visit for suture removal V58.32 [place] [id number] [place] [address] 18187- 6065 Nov, Allergic rhinitis 477.9 and Onychomycosis 110.1 [place] [id number] [place] [address] 11791- 0999 Oct, Muscle spasm 728.85 ; Benign essential hypertension 401.1 ; Chronic renal insufficiency 585.9 ; Chronic constipation 564.00 ; GERD ( gastroesophageal reflux disease) 530.81 and Hyperlipidemia 272.4 [place] [id number] [place] [address] 25409- 3237 Oct, Otalgia of left ear 388.70 [place] [id number] [place] [address] 60244- 3012 Oct, Unspecified episodic mood disorder 296.90 [place] [id number] [place] [address] 07267- 2168 September, Unspecified episodic mood disorder 296.90 [place] [id number] [place] [address] 20380- 0501 September, Unspecified episodic mood disorder 296.90 [facility] [id number] [place] [address] [id number] September, Urinary frequency 788.41 and Constipation 564.00 [place] [id number] [place] [address] 65834- 9912 Aug, [place] [address] 91042- 9019 Aug, [facility] [place] [facility] [address] [id number] [place] [address]- 9156 Jul, [facility] [place] [facility] [address] [id number] [place] [address]- 1523 Jul, [facility] [place] [facility] [address] [id number] [place] [address]- 9299 Jul, [facility] [place] [facility] [address] [id number] [place] [address]- 1604 Jul, [facility] [place] [facility] [address] [id number] [place] [address]- 5456 Jul, [facility] [place] [facility] [address] [id number] [place] [address]- 1127 Jul, [facility] [place] [facility] [address] [facility] [id number] [place] [address]- 5428 Jul, [facility] [place] [facility] [address] [id number] [place] [address]- 8584 Jul, [facility] [place] [facility] [address] [id number] [place] [address]- 2110 Jul, [facility] [place] [facility] [address] [id number] [place] [address]- 6634 Jul, [facility] [place] [facility] [address] [id number] [place] [address]- 2442 Jun, [facility] [place] [facility] [address] [id number] [place] [address]- 5790 Jun, [facility] [place] [facility] [address] [id number] [place] [address]- 2121 May, [facility] [place] [facility] [address] [id number] [place] [address]- 7772 May, [facility] [place] [facility] [address] [id number] [place] [address]- 6559 May, [facility] [place] [facility] [address] [id number] [place] [address]- 8368 May, [facility] [place] [facility] [address] [id number] [place] [address]- 0801 May, [facility] [place] [facility] [address] [id number] [place] [address]- 3705 May, [facility] [place] [facility] [address] [id number] [place] [address]- 8447 May, [facility] [place] [facility] [address] [id number] [place] [address]- 8191 May, [facility] [place] [facility] [address] [id number] [place] [address]- 6689 May, [facility] [place] [facility] [address] [id number] [place] [address]- 0851 May, [facility] [place] [facility] [address] [id number] [place] [address]- 6680 May, [facility] [place] [facility] [address] [id number] [place] [address]- 7547 May, [facility] [place] [facility] [address] [id number] [place] [address]- 5951 May, [facility] [place] [facility] [address] [id number] [place] [address]- 7078 Feb, [facility] [place] [facility] [address] [id number] [place] [address]- 2209 07 Feb, 2014 [facility] [place] [facility] [address] [id number] [place] [address]- 9622 20 Jan, 2014 [facility] [place] [facility] [address] [id number] [place] [address]- 9139 20 Jan, 2014 [facility] [place] [facility] [address] [id number] [place] [address]- 9492 18 Jan, 2014 [facility] [place] [facility] [address] [id number] [place] [address]- 3128 18 Jan, 2014 [facility] [place] [facility] [address] [id number] [place] [address]- 2606 12 Jan, 2014 [facility] [place] [facility] [address] [id number] [place] [address]- 4971 12 Jan, 2014 [facility] [place] [facility] [address] [id number] [place] [address]- 9219 12 Jan, 2014 [facility] [place] [facility] [address] [id number] [place] [address]- 9029 12 Jan, 2014 [facility] [place] [facility] [address] [id number] [place] [address]- 4174 Jan, [facility] [place] [facility] [address] [id number] [place] [address]- 0705 Jan, [facility] [place] [facility] [address] [id number] [place] [address]- 6289 Jan, [facility] [place] [facility] [address] [id number] [place] [address]- 7935 Jan, [facility] [place] [facility] [address] [id number] [place] [address]- 1175 Oct, [facility] [place] [facility] [address] [id number] [place] [address]- 1707 Oct, [facility] [place] [facility] [address] [id number] [place] [address]- 6669 Oct, [facility] [place] [facility] [address] [id number] [address]- 9696 Oct, [facility] [place] [facility] [address] [id number] [place] [address]- 2730 Jun, [facility] [place] [facility] [address] [id number] [place] [address]- 8077 Jun, [facility] [place] [facility] [address] [id number] [place] [address]- 6008 Jun, [facility] [place] [facility] [address] [id number] [place] [address]- 4736 Jun, [facility] [address] [id number] [place] [address]- 2875 Apr, [facility] [address] [id number] [place] [address]- 9346 Apr, [facility] [address] [id number] [place] [address]- 0227 Feb, [facility] [address] [id number] [place] [address]- 9051 Feb, [facility] [address] [id number] [place] [address]- 7591 Dec, [facility] [address] [id number] [place] [address]- 6037 Dec, [facility] [address] [id number] [place] [address]- 5524 Nov, [facility] [address] [id number] [place] [address]- 5353 Nov, [facility] [address] [id number] [place] [address]- 5185 Nov, [facility] [address] [id number] [place] [address]- 2460 Oct, [facility] [address] [id number] [place] [address]- 9905 September, [facility] [address] [id number] [place] [address]- 9914 September, [facility] [address] [id number] [place] [address]- 4884 Aug, [facility] [place] [facility] [address] [id number] [place] [address]- 2546 Aug, [facility] [address] [id number] [place] [address]- 4653 Aug, [facility] [address] [id number] [place] [address]- 6831 Aug, [facility] [address] [id number] [place] [address]- 1116 Aug, [facility] [address] [id number] [place] [address]- 6326 Aug, [facility] [address] [id number] [place] [address]- 2316 Jul, [facility] [address] [id number] [place] [address]- 8400 Jul, [facility] [address] [id number] [place] [address]- 3676 Jul, [facility] [address] [id number] [place] [address]- 9036 Jul, [facility] [address] [id number] [place] [address]- 3243 Jul, [facility] [address] [id number] [place] [address]- 1152 Jul, [facility] [address] [id number] [place] [address]- 0066 Jun, [facility] [address] [id number] [place] [address]- 6366 Jun, [facility] [place] [facility] [address] [id number] [place] [address]- 1976 May, [facility] [place] [facility] [address] [id number] [place] [address]- 8616 May, [facility] [place] [facility] [address] [id number] [place] [address]- 7476 Apr, [facility] [place] [facility] [address] [id number] [place] [address]- 9396 Apr, [facility] [place] [facility] [address] [id number] [place] [address] Apr, [facility] [place] [facility] [address] [id number] [place] [address] Apr, [facility] [place] [facility] [address] [id number] [place] [address] Apr, [facility] [place] [facility] [address] [id number] [place] [address] Mar, [facility] [place] [facility] [address] [id number] [place] [address] Mar, [facility] [place] [facility] [address] [id number] [place] [address], [place] [address] Mar, [facility] [place] [facility] [address] [id number] [place] [address] Mar, [facility] [place] [facility] [address] [id number] [place] [address] Mar, [facility] [place] [facility] [address] [id number] [place] [address] Mar, [facility] [place] [facility] [address] [id number] [place] [address] Mar, [facility] [place] [facility] [address] [facility] [id number] [place] [address] Feb, [facility] [place] [facility] [address] [id number] [place] [address] Feb, [facility] [place] [facility] [address] [id number] [address] Feb, [facility] [place] [facility] [address] [id number] [place] [address] Feb, [facility] [place] [facility] [address] [facility] [id number] [address] Dec, [facility] [place] [facility] [address] [facility] [id number] [address] Nov, [facility] [place] [facility] [address] [id number] [place] [address] Nov, [facility] [place] [facility] [address] [id number] [place] [address] Oct, [facility] [place] [facility] [address] [id number] [place] [address] Oct, [facility] [place] [facility] [address] [id number] [place] [address] Oct, [facility] [place] [facility] [address] [id number] [place] [address] Oct, [facility] [place] [facility] [address] [id number] [place] [address]- [address] Oct, [facility] [place] [facility] [address] [id number] [place] [address] Oct, [facility] [place] [facility] [address] [id number] [place] [address] Oct, [facility] [place] [facility] [address] [id number] [place] [address] Aug, [facility] [place] [facility] [address] [id number] [place] [address] Jul, [facility] [place] [facility] [address] [id number] [place] [address] Jul, [facility] [place] [facility] [address] [id number] [place] [address] 15 Jul, 2011 [facility] [place] [facility] [address] [id number] [place] [address] 09 Jul, 2011 [facility] [place] [facility] [address] [id number] [place] [address] 07 Jul, 2011 [facility] [place] [facility] [address] [id number] [place] [address] Jul, [facility] [place] [facility] [address] [id number] [place] [address] Jul, [facility] [place] [facility] [address] [id number] [place] [address] Jun, [facility] [place] [facility] [address] [id number] [place] [address] May, [facility] [place] [facility] [address] [facility] [id number] [place] [address] May, [facility] [place] [facility] [address] [id number] [place] [address] May, [facility] [place] [facility] [address] [id number] [place] [address] Apr, [facility] [place] [facility] [address] [id number] [place] [address] Apr, [facility] [place] [facility] [address] [facility] [id number] [place] [address] 16 Apr, 2011 [facility] [place] [facility] [address] [id number] [place] [address] 15 Apr, 2011 [facility] [place] [facility] [address] [id number] [place] [address] Apr, [facility] [place] [facility] [address] [facility] [id number] [place] [address] Apr, [facility] [place] [facility] [address] [id number] [address] Mar, [facility] [place] [facility] [address] [id number] [place] [address] 29 Mar, 2011 [facility] [place] [facility] [address] [id number] [place] [address] Mar, [facility] [place] [facility] [address] [facility] [id number] [place] [address] Mar, [facility] [place] [facility] [address] [facility] [id number] [place] [address] Mar, [facility] [place] [facility] [address] [id number] [place] [address] Mar, [facility] [address] [id number] [place] [address] Mar, [facility] [address] [id number] [place] [address] Dec, [facility] [address] [id number] [place] [address] Aug, [facility] [address] [id number] [place] [address] Apr, [facility] [address] [facility] [id number] [place] [address], [place] [address] Mar, [facility] [address] [facility] [id number] [place] [address] Mar, [facility] [address] [id number] [place] [address] Mar, [facility] [address] [facility] [id number] [place] [address] Mar, [facility] [address] [id number] [place] [address] September, [facility] [address] [facility] [id number] [place] [address] Mar, [facility] [address] [facility] [id number] [place] [address] Feb, [facility] [address] [facility] [id number] [place] [address] Oct, [facility] [address] [facility] [id number] [place] [address] September, [facility] [address] [facility] [id number] [place] [address] Apr, [facility] [address] [facility] [id number] [place] [address] 14 Mar, 2008 IMMUNIZATIONS No Known Immunizations SOCIAL HISTORY Never Assessed REASON FOR VISIT Med Change Cardiology PLAN OF CARE VITAL SIGNS MEDICATIONS Unknown Medications RESULTS No Results PROCEDURES No Known procedures [...]
--- OUTSIDE RECORDS SUMMARY | 2018-02-08 02:17 | XMS REPORT ---
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 Assessment Gastroesophageal reflux disease without esophagitis K21.9 Active Assessment Chronic kidney disease, unspecified N18.9 Active Assessment Pure hyperglyceridemia E78.1 Active Problem Chronic kidney disease, unspecified N18.9 Active Assessment Essential hypertension I10 Active Problem Gastroesophageal reflux disease without esophagitis K21.9 Active Assessment Anemia of chronic disease D63.8 Active Problem 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 Problem Other seasonal allergic rhinitis J30.2 Active Problem Essential hypertension I10 Active Problem Lung nodule, solitary R91.1 Active Problem Pain of right lower extremity M79.604 Active Problem Cervicalgia M54.2 Active Problem Urinary, incontinence, stress female N39.3 Active Problem Pain in right knee M25.561 Active Problem Abnormal chest x-ray R93.8 Active Problem Nausea with vomiting, unspecified R11.2 Active Problem Left-sided chest wall pain R07.89 Active Problem Swelling of right lower extremity M79.89 Active Problem Diarrhea, unspecified R19.7 Active Problem Tachycardia, unspecified R00.0 Active Problem Abnormal glucose R73.09 Active Problem Dysphagia, unspecified R13.10 Active Problem Peripheral vascular disease I73.9 Active Problem Anemia of chronic disease D63.8 Active Problem Periapical abscess without sinus K04.7 Active Problem Abnormal blood chemistry R79.9 Active Problem Pure hyperglyceridemia E78.1 Active Medications Medication Code System Code Instructions Start Date End Date Status Dosage Gabapentin [facility] 84566178444 100 MG Orally Three times a day 1 tablet Calcium [facility] 80152-22082 600 MG Orally not defined Symbicort [facility] [address]-23 160-4.5 MCG/ACT Inhalation Twice a day sample today May 17, 2015 1 puffs Fluticasone Propionate [facility] [address]-15 50 MCG/ACT Nasally Once a day 1 spray in each nostril Simvastatin [facility] [address]-87 10 mg Orally Once a day 1 tablet in the evening Proventil HFA [facility] [address]-19 90 mcg/actuation 2 puff(s) inhaled 4 times a day May 22, 2014 2 puffs by Inhalation route 4 times per day PRN Amlodipine Besylate [facility] [address]-69 10 mg Orally Once a day 1 tablet Lisinopril [facility] [address]-66 20 MG Orally Once a day 1 tablet Triamcinolone Acetonide [facility] [address]-34 0.1 % Externally Twice a day September 23, 2015 1 application to affected area Omeprazole [facility] [address]-28 40 mg Orally Once a day 1 capsule Cyclobenzaprine HCl [facility] [address]-74 10 mg Orally at hs prn 2015 1 tablet Toprol XL [facility] [address]-81 200 MG Orally Once a day 1 tablet Multivitamin [facility] 31928-[address]57 Orally not defined Vitamin C [facility] [address]-15 500 mg Jun 02, 2014 1 tablet by Oral route 1 time per day Procedures Procedure Coding System Code Date Office Visit, Est Pt., Level 5 CPT-4 54645 Dec 28, 2015 X-RAY EXAM OF KNEE, 3 CPT-4 94866 Dec 28, 2015 Vital Signs Date/Time: Dec 28, 2015 Cardiac Monitoring Heart Rate 80 bpm Weight 263.5 lbs Height 65 in BMI 43.84 Index Blood Pressure Diastolic 86 mmHg Blood Pressure Systolic 142 mmHg Results No Known Results Summary Purpose eClinicalWorks Submission
--- OUTSIDE RECORDS SUMMARY | 2018-02-08 02:17 | XMS REPORT ---
Author Author PHUC AMIN Organization [facility] Address [address] [place] [address] Care Team Providers [employer] Top Helpers Name Role Phone PHUC AMIN Unavailable PROBLEMS Type Condition ICD9-CM Code TFM15-CG Code Onset Dates Condition Status SNOMED Code Problem Stenosis of right renal artery I70.1 Active [id number] Problem Seasonal allergic rhinitis, unspecified allergic rhinitis trigger J30.2 Active 350826962 Problem Abdominal aortic aneurysm (AAA) without rupture I71.4 Active 31830070 Problem Mixed hyperlipidemia E78.2 Active 333028543 Problem Other chronic pain G89.29 Active 52040070 Problem PVD (peripheral vascular disease) I73.9 Active 479151241 Problem Prediabetes R73.03 Active 050064271 Problem Arthritis of knee M17.10 Active 141373892 Problem Renal artery stenosis I70.1 Active 295484507 Problem Peripheral vascular disease I73.9 Active 328555792 Problem Dysphagia, unspecified R13.10 Active 33253906 Problem Hepatic steatosis K76.0 Active 004530246 Problem Urinary, incontinence, stress female N39.3 Active 51615311 Problem Anemia of chronic disease D63.8 Active 662874640 Problem 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 712317735 Problem Chronic kidney disease, unspecified N18.9 Active 369833833 Problem Essential hypertension I10 Active 16294348 Problem Cervicalgia M54.2 Active 2475016117297 Problem Gastroesophageal reflux disease without esophagitis K21.9 Active 248098381 ALLERGIES No Information ENCOUNTERS Encounter Location Date Diagnosis [address] [address] September, Chronic kidney disease, unspecified N18.9 ; Essential hypertension I10 ; Mixed hyperlipidemia E78.2 and BMI 45.0-49.9, adult Z68.42 [place] [id number] [place] [address] 26203- 1278 September, [place] [address] [address]- [address] September, Essential hypertension I10 ; Chronic kidney disease, unspecified N18.9 ; Prediabetes R73.03 ; Low back pain M54.5 ; Other chronic pain G89.29 ; Arthritis of knee M17.10 ; Pure hyperglyceridemia E78.1 ; Anemia of chronic disease D63.8 and BMI 45.0-49.9, adult Z68.42 [place] [address] [address]- [address] Aug, [place] [address] 92268- 7884 Jul, Abdominal aortic aneurysm (AAA) without rupture I71.4 ; PVD (peripheral vascular disease) I73.9 ; Renal artery stenosis I70.1 and Essential hypertension I10 [place] [address] [address]127- 4099 May, Essential hypertension I10 ; Pure hyperglyceridemia E78.1 ; Abdominal aortic aneurysm (AAA) without rupture I71.4 ; Chronic kidney disease, unspecified N18.9 ; Gastroesophageal reflux disease without esophagitis K21.9 ; 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 ; Stenosis of right renal artery I70.1 ; Anemia of chronic disease D63.8 and Prediabetes R73.03 [place] [id number] [place] [address] 36479- 4526 May, Tinea corporis B35.4 and Viral URI J06.[address] [address]82- 7926 May, [place] [address] 12248- 3606 Apr, [place] [address] 48524- 6134 Apr, Cervical radiculopathy M54.12 [facility] [address] [address] Apr, Flank pain R10.9 and Acute pyelonephritis N10 [facility] [address] [address] Apr, [facility] [id number] [place] [address] 13679- 1069 Mar, [facility] [id number] [place] [address] 98015- 8733 Feb, Pain of right shoulder region M25.511 [facility] [id number] [place] [address] 83621- 0324 Feb, History of glaucoma Z86.69 ; Vision changes H53.9 ; Abdominal aortic aneurysm (AAA) without rupture I71.4 ; Xerosis of skin L85.3 and Pain in right shoulder M25.511 [facility] [id number] [place] [address] 03705- 4736 Feb, [facility] [id number] [place] [address] 53133- 1462 Jan, Essential hypertension I10 ; Pure hyperglyceridemia E78.1 ; Chronic kidney disease, unspecified N18.9 ; Gastroesophageal reflux disease without esophagitis K21.9 ; 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 ; Stenosis of right renal artery I70.1 ; Anemia of chronic disease D63.8 ; Prediabetes R73.03 ; Pain of right shoulder region M25.511 and Homeless Z59.0 [place] [id number] [place] [address] 56901- 0374 Jan, Neck pain M54.2 and Seasonal allergic rhinitis, unspecified allergic rhinitis trigger J30.2 [facility] [id number] [place] [address] 86166- 0153 Dec, [facility] [id number] [place] [address] 12658- 6251 Dec, [place] [id number] [place] [address] 24542- 9315 Dec, Blood glucose abnormal R73.09 ; Essential [...] H. pylori infection A04.8 and Prediabetes R73.03 [facility] [id number] [place] [address] 32111 -1139 Oct, Seasonal allergic rhinitis, unspecified allergic rhinitis trigger J30.2 [place] [id number] [place] [address] 51282- 7190 September, Eustachian tube dysfunction, left H69.82 and Candidiasis of breast B37.89 [place] [id number] [place] [address] 50255- 8523 Jul, Blood glucose abnormal R73.09 ; Essential hypertension I10 ; Pure hyperglyceridemia E78.1 ; Chronic kidney disease, unspecified N18.9 ; Gastroesophageal reflux disease without esophagitis K21.9 ; 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 ; Abdominal aortic aneurysm (AAA) without rupture I71.4 ; Stenosis of right renal artery I70.1 ; Anemia of chronic disease D63.8 and Acute non-recurrent maxillary sinusitis J01.00 [place] [id number] [place] [address] 95363- 8815 Jun, Acute non-recurrent maxillary sinusitis J01.00 ; Acute mucoid otitis media of left ear H65.112 ; Nausea R11.0 and Fever and chills R50.9 [place] [id number] [place] [address] 91061- 0966 May, Acute right flank pain R10.[address] 24142- 7476 Apr, Acute nasopharyngitis J00 ; Pure hyperglyceridemia E78.1 and Chronic kidney disease, unspecified N18.9 [place] [id number] [place] [address] 00369- 1202 Apr, [place] [id number] [place] [address] 38741- 1386 Apr, Blood glucose abnormal R73.09 ; Essential hypertension I10 ; Pure hyperglyceridemia E78.1 ; Chronic kidney disease, unspecified N18.9 ; Gastroesophageal reflux disease without esophagitis K21.9 ; 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 ; Abdominal aortic aneurysm (AAA) without rupture I71.4 ; Stenosis of right renal artery I70.1 ; RUQ pain R10.11 and Anemia of chronic disease D63.8 [place] [id number] [place] [address] 29534- 9424 Mar, Blood glucose abnormal R73.09 [place] [address] 15373- 9845 Mar, Cellulitis of right lower leg L03.115 [facility] [id number] [place] [address] 95016 -1721 Feb, [place] [id number] [place] [address] 05598- 3352 Feb, Dysuria R30.0 and Upper respiratory tract infection, unspecified type J06.9 [place] [id number] [place] [address] 58486- 5403 Jan, [place] [address] 00636- 6806 Jan, [place] [address] [place] [address] [id number]- 3009 Dec, [place] [id number] [place] [address] 97077- 6970 Dec, Anemia of chronic disease D63.8 ; Essential hypertension I10 ; Pure hyperglyceridemia E78.1 ; Chronic kidney disease, unspecified N18.9 ; Gastroesophageal reflux disease without esophagitis K21.9 ; 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 and Pain in right knee M25.561 [place] [id number] [place] [address] 67496- 8939 Dec, Left shoulder strain, subsequent encounter S46.912D ; Urinary frequency R35.0 ; Lung nodule, solitary R91.1 ; Essential hypertension I10 and Acute cystitis without hematuria N30.00 [place] [address] 64800- 7017 Nov, Left-sided chest wall pain R07.89 and Abnormal chest xray R93.[address] 71527- 8089 Nov, Pain of right lower extremity M79.604 ; Swelling of right lower extremity M79.89 ; Diarrhea, unspecified R19.7 ; Nausea with vomiting, unspecified R11.2 ; Left-sided chest wall pain R07.89 ; Chronic kidney disease, unspecified N18.9 ; Gastroesophageal reflux disease without esophagitis K21.9 and Other seasonal allergic rhinitis J30.[address] 12664- 5165 September, Essential hypertension I10 ; Chronic kidney disease, unspecified N18.9 ; Anemia of chronic disease D63.8 ; Pure hyperglyceridemia E78.1 ; Peripheral vascular disease I73.9 ; Abnormal glucose R73.09 ; 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 ; Gastroesophageal reflux disease without esophagitis K21.9 ; Allergic rhinitis J30.9 and Rash R21 [place] [id number] [place] [address] 18758- 1581 Aug, Abdominal pain R10.9 and Constipation K59.[address] 55455- 6622 Jul, Injury of toe on right foot S99.921A [place] [address] 16493- 5760 14 Jul, 2015 [place] [id number] [place] [address] 63239- 6629 Jul, Essential hypertension I10 ; Chronic kidney disease, unspecified N18.9 ; Anemia of chronic disease D63.8 ; Pure hyperglyceridemia E78.1 ; Peripheral vascular disease I73.9 ; Abnormal glucose R73.09 ; 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 ; Gastroesophageal reflux disease without esophagitis K21.9 and Allergic rhinitis J30.9 [place] [id number] [place] [address] 65312- 4525 Jun, Low back pain M54.[address] 87102- 8461 Jun, [address] 07732- 2296 May, URI (upper respiratory infection) J06.9 [place] [id number] [place] [address] 48335- 0665 Apr, Essential hypertension I10 [address] 50946- 6221 10 Apr, 2015 Essential hypertension I10 ; Chronic kidney disease, unspecified N18.9 ; Anemia of chronic disease D63.8 ; Pure hyperglyceridemia E78.1 ; Peripheral vascular disease I73.9 ; Abnormal glucose R73.09 ; URI ( upper respiratory infection) J06.9 ; 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 ; Gastroesophageal reflux disease without esophagitis K21.9 and Cough R05 [place] [id number] [place] [address] 50227- 8588 Mar, Flank pain R10.9 and URI (upper respiratory infection) J06.9 [place] [id number] [place] [address] 08390- 4957 Mar, Right-sided low back pain without sciatica M54.5 and Hematuria, unspecified R31.9 [place] [id number] [place] [address] 05116- 6284 Mar, Hypopigmentation L81.9 and Hyperpigmentation L81.9 [place] [address] 95935- 1513 Mar, [place] [address] 15158- 5248 Mar, Acute cystitis with hematuria N30.01 [place] [address] 39827- 2219 Mar, [place] [address] 58374- 6869 Feb, Furuncle L02.92 ; Hypopigmentation L81.9 ; Hyperpigmentation L81.9 ; Urinary frequency R35.0 ; Screening for malignant neoplasm of cervix Z12.4 ; Vaginal discharge N89.8 ; Urinary, incontinence, stress female N39.3 and Vaginal irritation N89.8 [place] [id number] [place] [address] 13801- 9571 Jan, Muscle spasm 728.85 ; Unspecified peripheral vascular disease 443.9 ; Benign essential hypertension 401.1 ; Chronic renal insufficiency 585.9 ; Chronic constipation 564.00 ; GERD (gastroesophageal reflux disease) 530.81 ; Hyperlipidemia 272.4 and Chronic leg pain 729.5 [place] [id number] [place] [address] 37734- 9451 Jan, Sinusitis 473.9 [place] [id number] [place] [address] 58199- 9715 Dec, [place] [address] 51326- 3208 Dec, Acute bronchitis 466.0 [place] [id number] [place] [address] 68853- 7611 Dec, Acute bronchitis 466.0 [place] [address] 04034- 0916 Dec, Unspecified episodic mood disorder 296.90 [facility] [id number] [place] [address] 98234- 6868 Dec, Visit for suture removal V58.32 [facility] [id number] [place] [address] 57069- 8676 Nov, Allergic rhinitis 477.9 and Onychomycosis 110.1 [place] [id number] [place] [address] 64897- 1401 Oct, Muscle spasm 728.85 ; Benign essential hypertension 401.1 ; Chronic renal insufficiency 585.9 ; Chronic constipation 564.00 ; GERD ( gastroesophageal reflux disease) 530.81 and Hyperlipidemia 272.4 [place] [id number] [place] [address] 60581- 5456 Oct, Otalgia of left ear 388.[address] 95229995- 6607 Oct, Unspecified episodic mood disorder 296.90 [place] [id number] [place] [address] 85421- 6409 September, Unspecified episodic mood disorder 296.90 [place] [id number] [place] [address] [id number]- 0644 September, Unspecified episodic mood disorder 296.90 [facility] [id number] [place] [address] [id number] September, Urinary frequency 788.41 and Constipation 564.00 [place] [id number] [place] [address] 09731- 6838 Aug, [place] [id number] [place] [address] [id number]- 8409 Aug, [place] [id number] [place] [address] 63305- 5475 Jul, [place] [address] 67934- 4255 Jul, [facility] [place] [facility] [address] [id number] [place] [address]- 7984 Jul, [facility] [place] [facility] [address] [id number] [place] [address]- 5594 Jul, [facility] [place] [facility] [address] [id number] [place] [address]- 9346 Jul, [facility] [place] [facility] [address] [id number] [place] [address]- 2447 Jul, [facility] [place] [facility] [address] [id number] [place] [address]- 4202 Jul, [facility] [place] [facility] [address] [id number] [place] [address]- 8320 Jul, [facility] [place] [facility] [address] [id number] [place] [address]- 1156 Jul, [facility] [place] [facility] [address] [id number] [place] [address]- 5749 Jul, [facility] [place] [facility] [address] [id number] [place] [address]- 4664 Jun, [facility] [place] [facility] [address] [id number] [place] [address]- 4936 Jun, [facility] [place] [facility] [address] [id number] [place] [address]- 0462 May, [facility] [place] [facility] [address] [id number] [place] [address]- 4986 May, [facility] [place] [facility] [address] [id number] [place] [address]- 3054 May, [facility] [place] [facility] [address] [id number] [place] [address]- 3154 May, [facility] [place] [facility] [address] [id number] [place] [address]- 7648 May, [facility] [place] [facility] [address] [id number] [place] [address]- 0912 May, [facility] [place] [facility] [address] [id number] [place] [address]- 2160 May, [facility] [place] [facility] [address] [id number] [place] [address]- 0799 May, [facility] [place] [facility] [address] [id number] [place] [address]- 2701 May, [facility] [place] [facility] [address] [id number] [place] [address]- 4166 May, [facility] [place] [facility] [address] [id number] [place] [address]- 4916 May, [facility] [place] [facility] [address] [id number] [place] [address]- 8972 May, [facility] [place] [facility] [address] [id number] [place] [address]- 3807 May, [facility] [place] [facility] [address] [id number] [place] [address]- 2709 Feb, [facility] [place] [facility] [address] [id number] [place] [address]- 5325 Feb, [facility] [place] [facility] [address] [id number] [place] [address]- 6909 Jan, [facility] [place] [facility] [address] [id number] [place] [address]- 1342 20 Jan, 2014 [facility] [place] [facility] [address] [id number] [place] [address]- 3310 18 Jan, 2014 [facility] [place] [facility] [address] [id number] [place] [address]- 5239 18 Jan, 2014 [facility] [place] [facility] [address] [id number] [place] [address]- 8158 12 Jan, 2014 [facility] [place] [facility] [address] [id number] [place] [address]- 2704 Jan, [facility] [place] [facility] [address] [id number] [place] [address]- 7940 12 Jan, 2014 [facility] [place] [facility] [address] [id number] [place] [address]- 4401 Jan, [facility] [place] [facility] [address] [id number] [place] [address]- 6372 Jan, [facility] [place] [facility] [address] [id number] [place] [address]- 0471 Jan, [facility] [place] [facility] [address] [id number] [place] [address]- 8955 Jan, [facility] [place] [facility] [address] [id number] [place] [address]- 7761 Jan, [facility] [place] [facility] [address] [id number] [place] [address]- 5738 Oct, [facility] [place] [facility] [address] [id number] [place] [address]- 5462 Oct, [facility] [place] [facility] [address] [id number] [place] [address]- 2911 Oct, [facility] [place] [facility] [address] [id number] [place] [address]- 8453 Oct, [facility] [place] [facility] [address] [id number] [place] [address]- 5084 Jun, [facility] [place] [facility] [address] [id number] [place] [address]- 6558 Jun, [facility] [place] [facility] [address] [id number] [place] [address]- 3743 Jun, [facility] [place] [facility] [address] [id number] [place] [address]- 8556 Jun, [facility] [place] [facility] [address] [id number] [place] [address]- 6091 Apr, [facility] [place] [facility] [address] [id number] [place] [address]- 6742 Apr, [facility] [address] [id number] [place] [address]- 2923 Feb, [facility] [address] [id number] [place] [address]- 2013 Feb, [facility] [address] [id number] [place] [address]- 4730 Dec, [facility] [address] [id number] [place] [address]- 9604 Dec, [facility] [address] [id number] [place] [address]- 7980 Nov, [facility] [address] [id number] [place] [address]- 0231 Nov, [facility] [address] [id number] [place] [address]- 4026 Nov, [facility] [address] [id number] [place] [address]- 6297 Oct, [facility] [address] [id number] [place] [address]- 3627 September, [facility] [address] [id number] [place] [address]- 5064 September, [facility] [address] [id number] [place] [address]- 6551 Aug, [facility] [address] [id number] [place] [address]- 7639 Aug, [facility] [address] [id number] [place] [address]- 3631 Aug, [facility] [address] [id number] [place] [address]- 0568 Aug, [facility] [address] [id number] [place] [address]- 6507 Aug, [facility] [place] [facility] [address] [id number] [place] [address]- 6325 Aug, [facility] [place] [facility] [address] [id number] [place] [address]- 6731 Jul, [facility] [place] [facility] [address] [id number] [place] [address]- 7608 Jul, [facility] [place] [facility] [address] [id number] [place] [address]- 5301 Jul, [facility] [address] [id number] [place] [address]- 6794 15 Jul, 2012 [facility] [place] [facility] [address] [id number] [place] [address]- 5230 Jul, [facility] [address] [id number] [place] [address]- 1974 Jul, [facility] [address] [id number] [place] [address] Jun, [facility] [place] [facility] [address] [id number] [place] [address] Jun, [facility] [address] [id number] [place] [address] May, [facility] [place] [facility] [address] [id number] [place] [address] May, [facility] [place] [facility] [address] [id number] [place] [address] Apr, [facility] [place] [facility] [address] [id number] [place] [address] Apr, [facility] [place] [facility] [address] [id number] [place] [address] Apr, [facility] [place] [facility] [address] [id number] [place] [address] 2019 Apr, [facility] [place] [facility] [address] [id number] [place] [address] Apr, [facility] [place] [facility] [address] [id number] [place] [address] Mar, [facility] [place] [facility] [address] [facility] [id number] [place] [address] Mar, [facility] [place] [facility] [id number] [address] Mar, [facility] [place] [facility] [address] [id number] [place] [address] Mar, [facility] [place] [facility] [id number] [place] [address], [place] [address]- [address] Mar, [facility] [place] [facility] [address] [facility] [id number] [place] [address] Mar, [facility] [place] [facility] [id number] [place] [address], [place] [address]- [address] Mar, [facility] [place] [facility] [address] [facility] [id number] [place] [address] Feb, [facility] [place] [facility] [address] [id number] [address] Feb, [facility] [place] [facility] [address] [id number] [address]- [address] Feb, [facility] [place] [facility] [address] [facility] [id number] [place] [address] Feb, [facility] [place] [facility] [address] [facility] [id number] [place] [address] Dec, [facility] [place] [facility] [address] [facility] [id number] [place] [address] Nov, [facility] [place] [facility] [address] [facility] [id number] [place] [address] Nov, [facility] [place] [facility] [address] [id number] [address] Oct, [facility] [place] [facility] [address] [id number] [place] [address] 27 Oct, 2011 [facility] [place] [facility] [address] [id number] [place] [address]- [address] 23 Oct, 2011 [facility] [place] [facility] [address] [id number] [place] [address] Oct, [facility] [place] [facility] [address] [id number] [place] [address] Oct, [facility] [place] [facility] [address] [id number] [place] [address] 17 Oct, 2011 [facility] [place] [facility] [address] [address] [id number] [place] [address] 06 Oct, 2011 [facility] [place] [facility] [address] [id number] [place] [address] Aug, [facility] [place] [facility] [address] [id number] [place] [address] Jul, [facility] [place] [facility] [address] [id number] [place] [address] Jul, [facility] [place] [facility] [address] [id number] [place] [address] Jul, [facility] [place] [facility] [address] [id number] [place] [address] Jul, [facility] [place] [facility] [address] [id number] [place] [address] Jul, [facility] [place] [facility] [address] [id number] [place] [address] Jul, [facility] [place] [facility] [address] [id number] [place] [address] Jul, [facility] [place] [facility] [address] [id number] [place] [address] Jun, [facility] [place] [facility] [address] [id number] [place] [address] May, [facility] [place] [facility] [address] [id number] [place] [address] May, [facility] [place] [facility] [address] [id number] [place] [address] May, [facility] [place] [facility] [address] [id number] [place] [address] Apr, [facility] [place] [facility] [address] [id number] [place] [address] Apr, [facility] [place] [facility] [address] [id number] [place] [address] 16 Apr, 2011 [facility] [place] [facility] [address] [id number] [place] [address] Apr, [facility] [place] [facility] [address] [id number] [place] [address] Apr, [facility] [place] [facility] [address] [id number] [place] [address] Apr, [facility] [place] [facility] [address] [id number] [place] [address] Mar, [facility] [place] [facility] [address] [id number] [place] [address] Mar, [facility] [place] [facility] [address] [id number] [place] [address] Mar, [facility] [place] [facility] [address] [id number] [place] [address] Mar, [facility] [place] [facility] [address] [id number] [place] [address] Mar, [facility] [place] [facility] [address] [id number] [place] [address] Mar, [facility] [place] [facility] [address] [id number] [place] [address] Mar, [facility] [place] [facility] [id number] [place] [address] Dec, [facility] [id number] [address] Aug, [facility] [id number] [place] [address] Apr, [facility] [id number] [address] Mar, [facility] [id number] [address] Mar, [facility] [id number] [address] Mar, [facility] [id number] [address] Mar, [facility] [id number] [address] September, [facility] [id number] [address] Mar, [facility] [id number] [address] Feb, [facility] [id number] [address] Oct, [facility] [id number] [address] September, [facility] [id number] [address] Apr, [facility] [id number] [address] Mar, IMMUNIZATIONS No Known Immunizations SOCIAL HISTORY Never Assessed REASON FOR VISIT Requesting Rx PLAN OF CARE VITAL SIGNS MEDICATIONS No Known Medications RESULTS No Results PROCEDURES No Known [...]
--- OUTSIDE RECORDS SUMMARY | 2018-02-08 02:17 | XMS REPORT ---
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 Name Role Phone MARKUS BALDWIN Unavailable PROBLEMS Type Condition ICD9-CM Code FJG20-CP Code Onset Dates Condition Status SNOMED Code Problem Stenosis of right renal artery I70.1 Active [id number] Problem Seasonal allergic rhinitis, unspecified allergic rhinitis trigger J30.2 Active 645997706 Problem Abdominal aortic aneurysm (AAA) without rupture I71.4 Active 13519774 Problem Mixed hyperlipidemia E78.2 Active 935847686 Problem Other chronic pain G89.29 Active 99511423 Problem PVD (peripheral vascular disease) I73.9 Active 056183232 Problem Prediabetes R73.03 Active 888519881 Problem Arthritis of knee M17.10 Active 449575420 Problem Renal artery stenosis I70.1 Active 400700795 Problem Peripheral vascular disease I73.9 Active 820754822 Problem Dysphagia, unspecified R13.10 Active 95550045 Problem Hepatic steatosis K76.0 Active 124954572 Problem Urinary, incontinence, stress female N39.3 Active 14421442 Problem Anemia of chronic disease D63.8 Active 750550552 Problem 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 749242322 Problem Chronic kidney disease, unspecified N18.9 Active 982081176 Problem Essential hypertension I10 Active 01390307 Problem Cervicalgia M54.2 Active 7500485135740 Problem Gastroesophageal reflux disease without esophagitis K21.9 Active 300927406 ALLERGIES Substance Reaction Event Type Date Status Tekturna Unknown Drug Allergy September, Active Niacin rash Drug Allergy September, Active Macrobid anaphylaxis Drug Allergy September, Active Iodine (IV contrast) Drug Allergy September, Active Ibuprofen (All NSAIDs) Drug Allergy September, Active Bactrim resp distress Drug Allergy September, Active ENCOUNTERS Encounter Location Date Diagnosis [place] [id number] [place] [address] 36176- 8354 Dec, [place] [address] [place] [id number] [place] [address] 40096- 8890 September, Chronic kidney disease, unspecified N18.9 ; Essential hypertension I10 ; Mixed hyperlipidemia E78.2 and BMI 45.0-49.9, adult Z68.42 [place] [address] [place] [id number] [place] [address] 99142- 9449 September, [place] [address] [place] [id number] [place] [address] 37564- 9174 September, Essential hypertension I10 ; Chronic kidney disease, unspecified N18.9 ; Prediabetes R73.03 ; Low back pain M54.5 ; Other chronic pain G89.29 ; Arthritis of knee M17.10 ; Pure hyperglyceridemia E78.1 ; Anemia of chronic disease D63.8 and BMI 45.0-49.9, adult Z68.42 [place] [address] [place] [id number] [place] [address] 96018- 7097 Aug, [place] [id number] [place] [address] 75842- 9430 Jul, Abdominal aortic aneurysm (AAA) without rupture I71.4 ; PVD (peripheral vascular disease) I73.9 ; Renal artery stenosis I70.1 and Essential hypertension I10 [place] [address] [place] [id number] [place] [address] 80363- 4504 May, Essential hypertension I10 ; Pure hyperglyceridemia E78.1 ; Abdominal aortic aneurysm (AAA) without rupture I71.4 ; Chronic kidney disease, unspecified N18.9 ; Gastroesophageal reflux disease without esophagitis K21.9 ; 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 ; Stenosis of right renal artery I70.1 ; Anemia of chronic disease D63.8 and Prediabetes R73.03 [place] [id number] [place] [address] 92693- 7991 May, Tinea corporis B35.4 and Viral URI J06.9 [place] [address] [place] [id number] [place] [address] 33212- 1021 May, [place] [address] [id number] [place] [address] 32219- 4671 Apr, [place] [address] [id number] [place] [address] 71138- 7092 Apr, Cervical radiculopathy M54.12 [facility] [id number] [place] [address] 95965 -3717 09 Apr, 2017 Flank pain R10.9 and Acute pyelonephritis N10 [place] [address] 89525- 7729 Apr, [place] [address] [place] [id number] [place] [address] 12800- 9361 Mar, [place] [address] [place] [id number] [place] [address] 30805- 7987 Feb, Pain of right shoulder region M25.511 [place] [address] [id number] [place] [address] 27498- 4226 Feb, History of glaucoma Z86.69 ; Vision changes H53.9 ; Abdominal aortic aneurysm (AAA) without rupture I71.4 ; Xerosis of skin L85.3 and Pain in right shoulder M25.511 [place] [address] [place] [id number] [place] [address] 35895- 5578 Feb, [place] [address] [place] [id number] [place] [address] 83632- 2394 13 Jan, 2017 Essential hypertension I10 ; Pure hyperglyceridemia E78.1 ; Chronic kidney disease, unspecified N18.9 ; Gastroesophageal reflux disease without esophagitis K21.9 ; 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 ; Stenosis of right renal artery I70.1 ; Anemia of chronic disease D63.8 ; Prediabetes R73.03 ; Pain of right shoulder region M25.511 and Homeless Z59.0 [place] [address] [place] [id number] [place] [address] 23597- 8582 Jan, Neck pain M54.2 and Seasonal allergic rhinitis, unspecified allergic rhinitis trigger J30.2 [place] [address] [place] [id number] [place] [address] 14526- 9654 Dec, [place] [address] [place] [id number] [place] [address] 59618- 1191 Dec, [place] [address] 51834- 7458 Dec, Blood glucose abnormal R73.09 ; Essential [...] H. pylori infection A04.8 and Prediabetes R73.03 [facility] [address] [id number] [place] [address] 66274 -7653 Oct, Seasonal allergic rhinitis, unspecified allergic rhinitis trigger J30.2 [place] [address] [place] [id number] [place] [address] 02268- 3424 September, Eustachian tube dysfunction, left H69.82 and Candidiasis of breast B37.89 [place] [address] [place] [id number] [place] [address] 49547- 7308 Jul, Blood glucose abnormal R73.09 ; Essential hypertension I10 ; Pure hyperglyceridemia E78.1 ; Chronic kidney disease, unspecified N18.9 ; Gastroesophageal reflux disease without esophagitis K21.9 ; 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 ; Abdominal aortic aneurysm (AAA) without rupture I71.4 ; Stenosis of right renal artery I70.1 ; Anemia of chronic disease D63.8 and Acute non-recurrent maxillary sinusitis J01.00 [place] [address] [place] [id number] [place] [address] 46901- 5844 Jun, Acute non-recurrent maxillary sinusitis J01.00 ; Acute mucoid otitis media of left ear H65.112 ; Nausea R11.0 and Fever and chills R50.9 [place] [address] 95449- 0241 May, Acute right flank pain R10.9 [place] [address] 81763- 9594 Apr, Pure hyperglyceridemia E78.1 ; Chronic kidney disease, unspecified N18.9 and Acute nasopharyngitis J00 [place] [address] 75987- 0709 Apr, [place] [address] 79567- 2900 Apr, Blood glucose abnormal R73.09 ; Essential hypertension I10 ; Pure hyperglyceridemia E78.1 ; Chronic kidney disease, unspecified N18.9 ; Gastroesophageal reflux disease without esophagitis K21.9 ; 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 ; Abdominal aortic aneurysm (AAA) without rupture I71.4 ; Stenosis of right renal artery I70.1 ; RUQ pain R10.11 and Anemia of chronic disease D63.8 [place] [address] 29372- 1918 Mar, Blood glucose abnormal R73.09 [place] [address] 79263- 0483 Mar, Cellulitis of right lower leg L03.115 [facility] [address] 46524 -5220 Feb, [place] [address] 50876- 7829 Feb, Dysuria R30.0 and Upper respiratory tract infection, unspecified type J06.9 [place] [address] 41405- 9057 Jan, [place] [address] [place] [address] 99504- 1135 Jan, [place] [address] 07372- 0889 Dec, [place] [address] [place] [id number] [place] [address] 27961- 8741 Dec, Anemia of chronic disease D63.8 ; Essential hypertension I10 ; Pure hyperglyceridemia E78.1 ; Chronic kidney disease, unspecified N18.9 ; Gastroesophageal reflux disease without esophagitis K21.9 ; 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 and Pain in right knee M25.[address] 56177- 0515 Dec, Left shoulder strain, subsequent encounter S46.912D ; Urinary frequency R35.0 ; Lung nodule, solitary R91.1 ; Essential hypertension I10 and Acute cystitis without hematuria N30.[address] 19541- 7887 Nov, Left-sided chest wall pain R07.89 and Abnormal chest xray R93.8 [place] [id number] [place] [address] 74321- 0398 Nov, Pain of right lower extremity M79.604 ; Swelling of right lower extremity M79.89 ; Diarrhea, unspecified R19.7 ; Nausea with vomiting, unspecified R11.2 ; Left-sided chest wall pain R07.89 ; Chronic kidney disease, unspecified N18.9 ; Gastroesophageal reflux disease without esophagitis K21.9 and Other seasonal allergic rhinitis J30.2 [place] [address] [place] [id number] [place] [address] 14882- 4792 September, Essential hypertension I10 ; Chronic kidney disease, unspecified N18.9 ; Anemia of chronic disease D63.8 ; Pure hyperglyceridemia E78.1 ; Peripheral vascular disease I73.9 ; Abnormal glucose R73.09 ; 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 ; Gastroesophageal reflux disease without esophagitis K21.9 ; Allergic rhinitis J30.9 and Rash R21 [place] [address] [place] [id number] [place] [address] 65898- 9293 11 Aug, 2015 Abdominal pain R10.9 and Constipation K59.[address] 75170- 2204 31 Jul, 2015 Injury of toe on right foot S99.921A [address] 48520- 1092 14 Jul, 2015 [place] [address] 44813- 0752 03 Jul, 2015 Essential hypertension I10 ; Chronic kidney disease, unspecified N18.9 ; Anemia of chronic disease D63.8 ; Pure hyperglyceridemia E78.1 ; Peripheral vascular disease I73.9 ; Abnormal glucose R73.09 ; 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 ; Gastroesophageal reflux disease without esophagitis K21.9 and Allergic rhinitis J30.[address] 59982- 8884 Jun, Low back pain M54.[address] 93962- 0371 Jun, [address] 59847- 0232 May, URI (upper respiratory infection) J06.9 [place] [id number] [place] [address] 87724- 5445 15 Apr, 2015 Essential hypertension I10 [place] [id number] [place] [address] 03021- 6337 10 Apr, 2015 Essential hypertension I10 ; Chronic kidney disease, unspecified N18.9 ; Anemia of chronic disease D63.8 ; Pure hyperglyceridemia E78.1 ; Peripheral vascular disease I73.9 ; Abnormal glucose R73.09 ; URI ( upper respiratory infection) J06.9 ; 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 ; Gastroesophageal reflux disease without esophagitis K21.9 and Cough R05 [place] [id number] [place] [address] 71599- 8176 Mar, Flank pain R10.9 and URI (upper respiratory infection) J06.9 [place] [address] 75915- 5131 Mar, Right-sided low back pain without sciatica M54.5 and Hematuria, unspecified R31.[address] 29308- 1977 Mar, Hypopigmentation L81.9 and Hyperpigmentation L81.[address] 11310- 2983 Mar, [address] 25590- 3150 Mar, Acute cystitis with hematuria N30.[address] 14641- 6469 Mar, [address] 15691- 4207 Feb, Furuncle L02.92 ; Hypopigmentation L81.9 ; Hyperpigmentation L81.9 ; Urinary frequency R35.0 ; Screening for malignant neoplasm of cervix Z12.4 ; Vaginal discharge N89.8 ; Urinary, incontinence, stress female N39.3 and Vaginal irritation N89.8 [place] [address] [place] [id number] [place] [address] 33000- 3494 Jan, Muscle spasm 728.85 ; Unspecified peripheral vascular disease 443.9 ; Benign essential hypertension 401.1 ; Chronic renal insufficiency 585.9 ; Chronic constipation 564.00 ; GERD (gastroesophageal reflux disease) 530.81 ; Hyperlipidemia 272.4 and Chronic leg pain 729.5 [place] [id number] [place] [address] 87953- 2717 15 Jan, 2015 Sinusitis 473.[address] 96660- 5139 Dec, [place] [address] [place] [id number] [place] [address] 99002- 2463 Dec, Acute bronchitis 466.0 [place] [address] [place] [id number] [place] [address] 22062- 0747 Dec, Acute bronchitis 466.0 [place] [address] [place] [id number] [place] [address] 97935- 3460 Dec, Unspecified episodic mood disorder 296.90 [place] [address] [place] [id number] [place] [address] 57787- 6066 Dec, Visit for suture removal V58.[address] 87736- 0603 Nov, Allergic rhinitis 477.9 and Onychomycosis 110.1 [place] [id number] [place] [address] 27020- 4038 Oct, Muscle spasm 728.85 ; Benign essential hypertension 401.1 ; Chronic renal insufficiency 585.9 ; Chronic constipation 564.00 ; GERD ( gastroesophageal reflux disease) 530.81 and Hyperlipidemia 272.4 [place] [id number] [place] [address] 72875- 5726 Oct, Otalgia of left ear 388.70 [place] [id number] [place] [address] 57518- 1723 Oct, Unspecified episodic mood disorder 296.90 [place] [address] [place] [id number] [place] [address] 00968- 8197 September, Unspecified episodic mood disorder 296.90 [place] [address] [place] [id number] [place] [address] 20840- 6247 September, Unspecified episodic mood disorder 296.90 [facility] [address] [place] [id number] [place] [address] [id number] September, Urinary frequency 788.41 and Constipation 564.00 [place] [address] [place] [id number] [place] [address]- 1093 14 Aug, 2014 [facility] [place] [facility] [address] [id number] [place] [address]- 5421 13 Aug, 2014 [facility] [place] [facility] [address] [id number] [place] [address]- 4613 30 Jul, 2014 [facility] [place] [facility] [address] [id number] [place] [address]- 5086 30 Jul, 2014 [facility] [place] [facility] [address] [id number] [place] [address]- 0479 Jul, [facility] [place] [facility] [address] [id number] [place] [address]- 2197 Jul, [facility] [place] [facility] [address] [id number] [place] [address]- 7162 Jul, [facility] [place] [facility] [address] [id number] [place] [address]- 9939 Jul, [facility] [place] [facility] [address] [id number] [place] [address]- 4808 Jul, [facility] [place] [facility] [address] [id number] [place] [address]- 6211 Jul, [facility] [place] [facility] [address] [facility] [id number] [place] [address]- 1197 Jul, [facility] [place] [facility] [address] [id number] [place] [address]- 0891 Jul, [facility] [place] [facility] [address] [id number] [place] [address]- 5415 Jun, [facility] [place] [facility] [address] [id number] [place] [address]- 9611 Jun, [facility] [place] [facility] [address] [id number] [place] [address]- 5066 May, [facility] [place] [facility] [address] [id number] [place] 9549 May, [facility] [place] [facility] [address] [id number] [place] [address]- 8643 May, [facility] [place] [facility] [address] [id number] [place] [address]- 1632 May, [facility] [place] [facility] [address] [id number] [place] [address]- 7539 May, [facility] [place] [facility] [address] [id number] [place] [address]- 7383 May, [facility] [place] [facility] [address] [id number] [place] [address]- 0421 May, [facility] [place] [facility] [address] [id number] [place] [address]- 0695 May, [facility] [place] [facility] [address] [id number] [place] [address]- 6738 May, [facility] [place] [facility] [address] [id number], [place] [address]- 4039 May, [facility] [place] [facility] [address] [id number] [place] [address]- 7679 May, [facility] [place] [facility] [address] [id number], [place] [address]- 6633 May, [facility] [place] [facility] [address] [id number], [place] [address]- 1790 May, [facility] [place] [facility] [address] [id number], [place] [address]- 0072 Feb, [facility] [place] [facility] [address] [id number] [place] [address]- 3220 Feb, [facility] [place] [facility] [address] [id number], [place] [address]- 6229 Jan, [facility] [place] [facility] [address] [id number], [place] [address]- 6265 Jan, [facility] [place] [facility] [address] [id number], [place] [address]- 4965 18 Jan, 2013 [facility] [place] [facility] [address] [id number] [place] [address]- 9762 18 Jan, 2013 [facility] [place] [facility] [address] [id number] [place] [address]- 3770 12 Jan, 2014 [facility] [place] [facility] [address] [id number] [place] [address]- 2595 12 Jan, 2013 [facility] [place] [facility] [address] [id number] [place] [address]- 4552 12 Jan, 2014 [facility] [place] [facility] [address] [id number] [place] [address]- 2800 12 Jan, 2014 [facility] [place] [facility] [address] [id number] [place] [address]- 9023 11 Jan, 2014 [facility] [place] [facility] [address] [id number] [place] [address]- 5516 Jan, [facility] [place] [facility] [address] [id number] [place] [address]- 1848 10 Jan, 2014 [facility] [place] [facility] [address] [id number] [place] [address]- 2999 Jan, [facility] [place] [facility] [address] [id number] [place] [address]- 3391 Oct, [facility] [place] [facility] [address] [id number] [place] [address]- 3422 Oct, [facility] [place] [facility] [address] [id number], [place] [address]- 7357 Oct, [facility] [place] [facility] [address] [id number] [place] [address]- 3422 Oct, [facility] [place] [facility] [address] [id number] [place] [address]- 1842 Jun, [facility] [place] [facility] [address] [id number], [place] [address]- 0085 Jun, [facility] [place] [facility] [address] [id number] [place] [address]- 3574 Jun, [facility] [address] [id number] [place] [address]- 5287 Jun, [facility] [place] [facility] [address] [id number] [place] [address]- 6858 Apr, [facility] [place] [facility] [address] [id number] [place] [address]- 1125 Apr, [facility] [address] [id number] [place] [address]- 2560 Feb, [facility] [place] [facility] [address] [id number] [place] [address]- 6183 Feb, [facility] [address] [id number] [place] [address]- 3564 Dec, [facility] [address] [id number] [place] [address]- 6500 Dec, [facility] [address] [id number] [place] [address]- 6387 Nov, [facility] [address] [id number] [place] [address]- 8785 Nov, [facility] [place] [facility] [address] [id number] [place] [address]- 8290 Nov, [facility] [place] [facility] [address] [id number] [place] [address]- 7963 Oct, [facility] [place] [facility] [address] [id number] [place] [address]- 4180 September, [facility] [place] [facility] [address] [id number] [place] [address]- 7646 September, [facility] [place] [facility] [address] [id number] [place] [address]- 9277 Aug, [facility] [place] [facility] [address] [id number] [place] [address]- 0929 Aug, [facility] [address] [id number] [place] [address]- 6129 Aug, [facility] [address] [id number] [place] [address]- 7573 Aug, [facility] [address] [id number] [place] [address]- 6073 Aug, [facility] [address] [id number] [place] [address]- 7194 Aug, [facility] [address] [id number] [place] [address]- 9623 Jul, [facility] [address] [id number] [place] [address]- 6618 Jul, [facility] [address] [id number] [place] [address]- 3902 Jul, [facility] [address] [id number] [place] [address]- 1359 Jul, [facility] [address] [id number] [place] [address]- 5655 Jul, [facility] [address] [id number] [place] [address]- 7507 Jul, [facility] [address] [id number] [place] [address]- 4941 Jun, [facility] [place] [facility] [address] [id number] [place] [address]- 6164 Jun, [facility] [place] [facility] [address] [id number] [place] [address]- 9467 May, [facility] [place] [facility] [address] [id number] [place] [address]- 9651 May, [facility] [place] [facility] [address] [id number] [place] [address]- 0873 Apr, [facility] [place] [facility] [address] [id number] [place] [address]- 5303 Apr, [facility] [place] [facility] [address] [id number] [place] [address]- 5565 Apr, [facility] [place] [facility] [address] [id number] [place] [address]- 2926 Apr, [facility] [place] [facility] [address] [id number] [place] [address]- 7321 Apr, [facility] [place] [facility] [address] [id number] [place] [address]- 3739 Mar, [facility] [place] [facility] [address] [id number] [place] [address]- 6451 Mar, [facility] [place] [facility] [address] [id number] [place] [address]- 1444 Mar, [facility] [place] [facility] [address] [id number] [place] [address]- 5467 Mar, [facility] [place] [facility] [address] [id number] [place] [address]- 2950 Mar, [facility] [place] [facility] [address] [id number] [place] [address]- 5521 Mar, [facility] [place] [facility] [address] [id number] [place] [address]- 6668 Mar, [facility] [place] [facility] [address] [id number] [place] [address] Feb, [facility] [place] [facility] [address] [id number] [place] [address] Feb, [facility] [place] [facility] [address] [id number] [place] [address] Feb, [facility] [place] [facility] [address] [id number] [place] [address] Feb, [facility] [place] [facility] [address] [id number] [place] Dec, [facility] [place] [facility] [address] [id number] [place] [address] Nov, [facility] [place] [facility] [address] [id number] [place] [address] Nov, [facility] [place] [facility] [address] [id number] [place] [address] Oct, [facility] [place] [facility] [address] [id number] [place] [address] Oct, [facility] [place] [facility] [address] [id number] [place] [address] Oct, [facility] [place] [facility] [address] [id number] [place] [address] Oct, [facility] [place] [facility] [address] [id number] [place] [address] Oct, [facility] [place] [facility] [address] [id number] [place] [address] Oct, [facility] [place] [facility] [address] [id number] [place] [address] Oct, [facility] [place] [facility] [address] [id number] [place] [address] Aug, [facility] [place] [facility] [address] [id number] [place] [address] Jul, [facility] [place] [facility] [address] [id number] [place] [address] Jul, [facility] [place] [facility] [address] [id number] [place] [address] 15 Jul, 2011 [facility] [place] [facility] [address] [id number] [place] [address]- [address] 09 Jul, 2011 [facility] [place] [facility] [address] [id number] [place] [address] 07 Jul, 2011 [facility] [place] [facility] [address] [id number] [place] [address] Jul, [facility] [address] [id number] [place] [address] Jul, [facility] [place] [facility] [address] [id number] [place] [address] Jun, [facility] [place] [facility] [address] [id number] [place] [address] May, [facility] [place] [facility] [address] [id number] [place] [address] May, [facility] [place] [facility] [address] [id number] [place] [address] May, [facility] [place] [facility] [address] [id number] [place] [address] Apr, [facility] [place] [facility] [address] [id number] [place] [address] Apr, [facility] [place] [facility] [address] [id number] [place] [address]- [address] 16 Apr, 2011 [facility] [place] [facility] [address] [id number] [place] [address] Apr, [facility] [place] [facility] [address] [id number] [place] [address] Apr, [facility] [place] [facility] [address] [id number] [place] [address] Apr, [facility] [place] [facility] [address] [id number] [place] [address] Mar, [facility] [place] [facility] [address] [id number] [place] [address] Mar, [facility] [place] [facility] [address] [id number] [place] [address] Mar, [facility] [place] [facility] [address] [id number] [place] [address] Mar, [facility] [place] [facility] [address] [id number] [place] [address] Mar, [facility] [place] [facility] [address] [id number] [place] [address] Mar, [facility] [place] [facility] [address] [id number] [place] [address] Mar, [facility] [place] [facility] [address] [id number] [place] [address] Dec, [facility] [place] [facility] [address] [id number] [place] [address] Aug, [facility] [place] [facility] [address] [id number] [place] [address] Apr, [facility] [place] [facility] [address] [id number] [place] [address] Mar, [facility] [place] [facility] [address] [id number] [place] [address] Mar, [facility] [place] [facility] [address] [id number] [place] [address] Mar, [facility] [place] [facility] [address] [id number] [place] [address] Mar, [facility] [place] [facility] [address] [id number] [place] [address] September, [facility] [place] [facility] [address] [id number] [place] [address] Mar, [facility] [place] [facility] [address] [id number] [place] [address] Feb, [facility] [place] [facility] [address] [id number] [place] [address] Oct, [facility] [place] [facility] [address] [id number] [place] [address] September, [facility] [place] [facility] [address] [id number] [place] [address] Apr, [facility] [address] [facility] [id number] [place] [id number] Mar, IMMUNIZATIONS No Known Immunizations SOCIAL HISTORY Never Assessed REASON FOR VISIT Transition of Care--tcuppettRN, -Is wondering if needs lab draw, -Needing refill on Tramadol. Has been out for a while PLAN OF CARE Activity Details Follow Up 3 Months Reason:WWE/A1c VITAL SIGNS Height 65 in 2017-09-14 Weight 279.3 lbs 2017-09-14 Temperature 98.3 degrees Fahrenheit 2017-09-14 Heart Rate 76 bpm 2017-09-14 Respiratory Rate 20 2017-09-14 BMI 46.47 kg/m2 2017-09-14 Blood pressure systolic 142 mmHg 2017-09-14 Blood pressure diastolic 76 mmHg 2017-09-14 MEDICATIONS Medication Instructions Dosage Frequency Start Date End Date Duration Status Hydrochlorothiazide 25 MG Orally Once a day 1 tablet in the morning 24h Active Tramadol HCl 50 mg Orally Once a day prn severe pain 1 tablet as needed Jan, Active Symbicort 160-4.5 MCG/ACT Inhalation Twice a day sample today 1 puffs May, Active Simvastatin 10 mg Orally Once a day 1 tablet in the evening 24h 90 Active Proventil HFA 90 mcg/actuation 2 puffs by Inhalation route 4 times per day PRN May, Active Omeprazole 40 mg Orally Once a day 1 capsule 24h Active Neurontin 300 MG Orally at bedtime 1 capsule Active Toprol XL 200 mg Orally Once a day 1 tablets 24h Active Calcium 600 MG Active Vitamin C 500 mg 1 tablet by Oral route 1 time per day May, Active Multivitamin Active Gabapentin 100 mg Orally 2 times a day 1 capsule 12h 90 Active Fluticasone Propionate 50 MCG/ACT Nasally Once a day 1 spray in each nostril 24h 30 Active Tramadol HCl 50 mg Orally once daily as needed 1 tablet as needed SeptemberOct, 28 days Active Lisinopril 20 mg Orally Once a day 1 tablet 24h 90 Active Zofran 8 MG Orally every 8 hours, PRN 1 tablet Jun, 03 days Active Amlodipine Besylate 10 mg Orally Once a day 1 tablet 24h 90 Active Triamcinolone Acetonide 0.1 % Externally Twice a day 1 application to affected area 12h 7 Active RESULTS No Results PROCEDURES Procedure Date Ordered Result Body Site LIPID PANEL September 14, 2017 COMPREHEN METABOLIC PANEL September 14, 2017 COMPLETE CBC W/AUTO DIFF WBC September 14, 2017 ASSAY OF MAGNESIUM September 14, 2017 ASSAY THYROID STIM HORMONE September 14, 2017 INSTRUCTIONS MEDICATIONS ADMINISTERED No Known Medications MEDICAL [...]
--- OUTSIDE RECORDS SUMMARY | 2018-02-08 02:18 | XMS REPORT ---
Author Author MORE LOPEZ [facility] eClinicalWorks Address Unknown Phone Unavailable Care Team Providers Care Hand Blocker Name Role Phone MORE LOPEZ Unavailable Allergies, Adverse Reactions, Alerts Substance Reaction Event Type T[place]turna Info Not Available Drug Allergy Niacin rash Drug Allergy Macrobid anaphylaxis Drug Allergy Iodine (IV contrast) Drug Allergy Ibuprofen (All NSAIDs) Drug Allergy Bactrim resp distress Drug Allergy Problems Problem Type Condition Code Onset Dates Condition Status Problem Tachycardia, unspecified R00.0 Active Problem Abnormal blood chemistry R79.9 Active Problem Abnormal glucose R73.09 Active Problem 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 Problem Gastroesophageal reflux disease without esophagitis K21.9 Active Problem Essential hypertension I10 Active Problem Anemia of chronic disease D63.8 Active Problem Pure hyperglyceridemia E78.1 Active Problem Chronic kidney disease, unspecified N18.9 Active Problem Periapical abscess without sinus K04.7 Active Problem Urinary, incontinence, stress female N39.3 Active Problem Cervicalgia M54.2 Active Assessment Constipation K59.00 Active Problem Dysphagia, unspecified R13.10 Active Assessment Abdominal pain R10.9 Active Problem Peripheral vascular disease I73.9 Active Medications Medication Code System Code Instructions Start Date End Date Status Dosage Baclofen [facility] [address]-94 10 MG Orally 2 times a day Jan 27, 2015 1/2 tablet with food or milk Symbicort [facility] [address]-12 160-4.5 MCG/ACT Inhalation Twice a day sample today May 17, [address] [facility] [address]-32 40 MG Orally Once a day 1 capsule Proventil HFA [facility] [address]-72 90 mcg/actuation 2 puff(s) inhaled 4 times a day May 22, 2014 2 puffs by Inhalation route 4 times per day PRN Fluticasone Propionate [facility] [address]-16 50 MCG/ACT Nasally Once a day July 08, 2015 1 spray in each nostril Calcium [facility] 437[address]90 600 MG Orally not defined Lisinopril [facility] [address]-93 20 MG Orally Once a day [address] [facility] [address]-47 10 MG Orally Once a day 1 tablet in the evening Toprol XL [facility] [address]-90 100 MG Orally Once a day [address] [facility] 66336567674 100 MG Orally Three times a day 1 tablet Vitamin C [facility] [address]-82 500 mg Jun 02, 2014 1 tablet by Oral route 1 time per day Multivitamin [facility] [address] Orally not defined Amlodipine Besylate [facility] [address]-73 10 MG Orally Once a day 1 tablet Procedures Procedure Coding System Code Date X-RAY EXAM OF ABDOMEN CPT-4 47826 August 16, 2015 COMPLETE CBC W/AUTO DIFF WBC CPT-4 52635 August 16, 2015 URINALYSIS, AUTO, W/O SCOPE CPT-4 93600 August 16, 2015 Office Visit, Est Pt., Level 3 CPT-4 16860 August 16, 2015 VENIPUNCT, ROUTINE* CPT-4 01165 August 16, 2015 Vital Signs Date/Time: August 16, 2015 Temperature 97.2 F Weight 262.9 lbs Height 65 in BMI 43.74 Index Blood Pressure Diastolic 82 mmHg Blood Pressure Systolic 138 mmHg Cardiac Monitoring Heart Rate 80 bpm Results No Known Results Summary Purpose eClinicalWorks Submission
--- OUTSIDE RECORDS SUMMARY | 2018-02-08 02:18 | XMS REPORT ---
Author Author PHUC AMIN [facility] Address [facility] [place] [address] Care Team Providers Care Touch Up Carver Name Role Phone PHUC AMIN Unavailable PROBLEMS Type Condition ICD9-CM Code [id number] Code Onset Dates Condition Status SNOMED Code Problem Gastroesophageal reflux disease without esophagitis K21.9 Active 746789737 Problem Abdominal aortic aneurysm (AAA) without rupture I71.4 Active 09592019 Problem Stenosis of right renal artery I70.1 Active [id number] Problem Other chronic pain G89.29 Active 04735937 Problem Arthritis of knee M17.10 Active 904119475 Problem Prediabetes R73.03 Active 933479696 Problem Seasonal allergic rhinitis, unspecified allergic rhinitis trigger J30.2 Active 967662515 Problem Renal artery stenosis I70.1 Active 441640785 Problem PVD (peripheral vascular disease) I73.9 Active 773307025 Problem Urinary, incontinence, stress female N39.3 Active 78383976 Problem Peripheral vascular disease I73.9 Active 906511485 Problem Hepatic steatosis K76.0 Active 673433743 Problem Cervicalgia M54.2 Active [id number] Problem Anemia of chronic disease D63.8 Active 185257209 Problem Dysphagia, unspecified R13.10 Active 02772177 Problem 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 243946189 Problem Chronic kidney disease, unspecified N18.9 Active 637880760 Problem Essential hypertension I10 Active 56882694 ALLERGIES Substance Reaction Event Type Date Status T[place]turna Unknown Drug Allergy Feb, Active Niacin rash Drug Allergy Feb, Active Macrobid anaphylaxis Drug Allergy Feb, Active Iodine (IV contrast) Drug Allergy Feb, Active Ibuprofen (All NSAIDs) Drug Allergy Feb, Active Bactrim resp distress Drug Allergy Feb, Active ENCOUNTERS Encounter Location Date Diagnosis [facility] [address] [facility] [id number] [place] [address] 06390- 3622 September, [place] [address] [place] [id number] [place] [address] 67872- 5141 September, Essential hypertension I10 ; Chronic kidney disease, unspecified N18.9 ; Prediabetes R73.03 ; Low back pain M54.5 ; Other chronic pain G89.29 ; Arthritis of knee M17.10 ; Pure hyperglyceridemia E78.1 ; Anemia of chronic disease D63.8 and BMI 45.0-49.9, adult Z68.42 [place] [address] 43276- 8889 Aug, [address] 64041- 0455 Jul, Abdominal aortic aneurysm (AAA) without rupture I71.4 ; PVD (peripheral vascular disease) I73.9 ; Renal artery stenosis I70.1 and Essential hypertension I10 [place] [address] 61502- 2348 May, Essential hypertension I10 ; Pure hyperglyceridemia E78.1 ; Abdominal aortic aneurysm (AAA) without rupture I71.4 ; Chronic kidney disease, unspecified N18.9 ; Gastroesophageal reflux disease without esophagitis K21.9 ; 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 ; Stenosis of right renal artery I70.1 ; Anemia of chronic disease D63.8 and Prediabetes R73.03 [place] [address] [id number] [place] [address] 74710- 8492 May, Tinea corporis B35.4 and Viral URI J06.9 [place] [address] [place] [id number] [place] [address] 76383- 3906 May, [address] 21340- 9670 Apr, [place] [address] [place] [id number] [place] [address] 00453- 1463 Apr, Cervical radiculopathy M54.12 [facility] [address] [place] [address] Apr, Flank pain R10.9 and Acute pyelonephritis N10 [place] [address] [place] [id number] [place] [address] 75848- 2976 Apr, [facility] [id number] [place] [address] 94288- 7420 Mar, [place] [id number] [place] [address] 83613- 9973 Feb, Pain of right shoulder region M25.511 [place] [address] [id number] [place] [address] 95491- 1931 Feb, History of glaucoma Z86.69 ; Vision changes H53.9 ; Abdominal aortic aneurysm (AAA) without rupture I71.4 ; Xerosis of skin L85.3 and Pain in right shoulder M25.511 [place] [address] [id number] [place] [address] 84695- 2188 Feb, [place] [id number] [place] [address] 87145- 7719 Jan, Essential hypertension I10 ; Pure hyperglyceridemia E78.1 ; Chronic kidney disease, unspecified N18.9 ; Gastroesophageal reflux disease without esophagitis K21.9 ; 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 ; Stenosis of right renal artery I70.1 ; Anemia of chronic disease D63.8 ; Prediabetes R73.03 ; Pain of right shoulder region M25.511 and Homeless Z59.0 [place] [id number] [place] [address] 25286- 7999 Jan, Neck pain M54.2 and Seasonal allergic rhinitis, unspecified allergic rhinitis trigger J30.2 [place] [id number] [place] [address] 29201- 9160 Dec, [place] [id number] [place] [address] 86355- 2267 Dec, [place] [id number] [place] [address] 15069- 5990 Dec, Blood glucose abnormal R73.09 ; Essential [...] H. 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 ; Abdominal aortic aneurysm (AAA) without rupture I71.4 ; Stenosis of right renal artery I70.1 ; Anemia of chronic disease D63.8 and Acute non-recurrent maxillary sinusitis J01.00 [place] [id number] [place] [address] 73156- 8422 Jun, Acute non-recurrent maxillary sinusitis J01.00 ; Acute mucoid otitis media of left ear H65.112 ; Nausea R11.0 and Fever and chills R50.9 [place] [id number] [place] [address] 11745- 5244 May, Acute right flank pain R10.[address] 14536- 9365 Apr, Acute nasopharyngitis J00 ; Pure hyperglyceridemia E78.1 and Chronic kidney disease, unspecified N18.9 [place] [id number] [place] [address] 72859- 7840 Apr, [facility] [address] [place] [id number] [place] [address] 16363- 5027 Apr, Blood glucose abnormal R73.09 ; Essential hypertension I10 ; Pure hyperglyceridemia E78.1 ; Chronic kidney disease, unspecified N18.9 ; Gastroesophageal reflux disease without esophagitis K21.9 ; 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 ; Abdominal aortic aneurysm (AAA) without rupture I71.4 ; Stenosis of right renal artery I70.1 ; RUQ pain R10.11 and Anemia of chronic disease D63.8 [place] [address] [address] [id number] [place] [address] 58114- 5233 Mar, Blood glucose abnormal R73.09 [place] [address] [id number] [place] [address] 10586- 3145 Mar, Cellulitis of right lower leg L03.115 [facility] [address] [address] [id number] [place] [address] 02684 -4150 Feb, [place] [id number] [place] [address] 78718- 7788 Feb, Dysuria R30.0 and Upper respiratory tract infection, unspecified type J06.9 [place] [address] [id number] [place] [address] 09264- 8946 Jan, [place] [address] [place] [address] [id number] [place] [address] 90302- 4303 Jan, [place] [address] 86433- 6702 Dec, [facility] [address] [place] [id number] [place] [address] 41383- 6266 Dec, Anemia of chronic disease D63.8 ; Essential hypertension I10 ; Pure hyperglyceridemia E78.1 ; Chronic kidney disease, unspecified N18.9 ; Gastroesophageal reflux disease without esophagitis K21.9 ; 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 and Pain in right knee M25.561 [place] [address] 78756- 1528 Dec, Left shoulder strain, subsequent encounter S46.912D ; Urinary frequency R35.0 ; Lung nodule, solitary R91.1 ; Essential hypertension I10 and Acute cystitis without hematuria N30.00 [place] [address] 58467- 6730 Nov, Left-sided chest wall pain R07.89 and Abnormal chest xray R93.[address] 49788- 7081 Nov, Pain of right lower extremity M79.604 ; Swelling of right lower extremity M79.89 ; Diarrhea, unspecified R19.7 ; Nausea with vomiting, unspecified R11.2 ; Left-sided chest wall pain R07.89 ; Chronic kidney disease, unspecified N18.9 ; Gastroesophageal reflux disease without esophagitis K21.9 and Other seasonal allergic rhinitis J30.[address] 87727- 2702 September, Essential hypertension I10 ; Chronic kidney disease, unspecified N18.9 ; Anemia of chronic disease D63.8 ; Pure hyperglyceridemia E78.1 ; Peripheral vascular disease I73.9 ; Abnormal glucose R73.09 ; 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 ; Gastroesophageal reflux disease without esophagitis K21.9 ; Allergic rhinitis J30.9 and Rash R21 [place] [id number] [place] [address] 31148- 2633 Aug, Abdominal pain R10.9 and Constipation K59.[address] 56272- 1395 31 Jul, 2015 Injury of toe on right foot S99.921A [address] 85775- 4051 Jul, [place] [address] [address] [id number] [place] [address] 61480- 9846 Jul, Essential hypertension I10 ; Chronic kidney disease, unspecified N18.9 ; Anemia of chronic disease D63.8 ; Pure hyperglyceridemia E78.1 ; Peripheral vascular disease I73.9 ; Abnormal glucose R73.09 ; 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 ; Gastroesophageal reflux disease without esophagitis K21.9 and Allergic rhinitis J30.9 [place] [address] 65616- 7510 Jun, Low back pain M54.5 [place] [address] 54082- 5549 Jun, [place] [address] 84691- 2527 May, URI (upper respiratory infection) J06.9 [place] [address] 36510- 6920 Apr, Essential hypertension I10 [place] [address] 53879- 3986 10 Apr, 2015 Essential hypertension I10 ; Chronic kidney disease, unspecified N18.9 ; Anemia of chronic disease D63.8 ; Pure hyperglyceridemia E78.1 ; Peripheral vascular disease I73.9 ; Abnormal glucose R73.09 ; URI ( upper respiratory infection) J06.9 ; 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 ; Gastroesophageal reflux disease without esophagitis K21.9 and Cough R05 [place] [address] 52102- 9594 Mar, Flank pain R10.9 and URI (upper respiratory infection) J06.9 [place] [address] 62903- 3952 Mar, Right-sided low back pain without sciatica M54.5 and Hematuria, unspecified R31.[address] 92448- 6001 Mar, Hypopigmentation L81.9 and Hyperpigmentation L81.9 [place] [address] 88377- 7408 Mar, [place] [address] 89817- 7077 Mar, Acute cystitis with hematuria N30.01 [place] [address] 36150- 7108 Mar, [place] [address] 69675- 0865 Feb, Furuncle L02.92 ; Hypopigmentation L81.9 ; Hyperpigmentation L81.9 ; Urinary frequency R35.0 ; Screening for malignant neoplasm of cervix Z12.4 ; Vaginal discharge N89.8 ; Urinary, incontinence, stress female N39.3 and Vaginal irritation N89.8 [place] [address] [place] [id number] [place] [address] 97077- 1360 Jan, Muscle spasm 728.85 ; Unspecified peripheral vascular disease 443.9 ; Benign essential hypertension 401.1 ; Chronic renal insufficiency 585.9 ; Chronic constipation 564.00 ; GERD (gastroesophageal reflux disease) 530.81 ; Hyperlipidemia 272.4 and Chronic leg pain 729.5 [place] [address] [place] [id number] [place] [address] 48211- 5771 Jan, Sinusitis 473.9 [place] [address] [place] [id number] [place] [address] 08531- 6826 Dec, [place] [id number] [place] [address] 59141- 6923 Dec, Acute bronchitis 466.0 [place] [address] [id number] [place] [address] 89745- 8440 Dec, Acute bronchitis 466.0 [place] [address] 38144- 0645 Dec, Unspecified episodic mood disorder 296.90 [facility] [address] [id number] [place] [address] 060788- 9782 Dec, Visit for suture removal V58.32 [facility] [address] [place] [id number] [place] [address] 61224- 2336 Nov, Allergic rhinitis 477.9 and Onychomycosis 110.1 [place] [address] 12359- 0662 Oct, Muscle spasm 728.85 ; Benign essential hypertension 401.1 ; Chronic renal insufficiency 585.9 ; Chronic constipation 564.00 ; GERD ( gastroesophageal reflux disease) 530.81 and Hyperlipidemia 272.4 [place] [address] [id number] [place] [address] 80350- 6082 Oct, Otalgia of left ear 388.[address] 561661- 7028 Oct, Unspecified episodic mood disorder 296.90 [place] [address] [place] [id number] [place] [address] 003512- 9707 September, Unspecified episodic mood disorder 296.90 [place] [address] [place] [id number] [place] [address] 667158- 6728 September, Unspecified episodic mood disorder 296.90 [facility] [id number] [place] [address] [id number] September, Urinary frequency 788.41 and Constipation 564.00 [place] [address] [id number] [place] [address] 26143- 7795 Aug, [place] [address] 018570- 6351 Aug, [facility] [address] [place] [id number] [place] [address] 83851- 7790 Jul, [place] [address] 683754- 7307 Jul, [facility] [place] [facility] [address] [id number] [place] [address]- 8642 Jul, [facility] [place] [facility] [address] [id number] [place] [address]- 6937 Jul, [facility] [place] [facility] [address] [id number] [place] [address]- 1309 Jul, [facility] [place] [facility] [address] [id number] [place] [address]- 1182 Jul, [facility] [place] [facility] [address] [id number] [place] [address]- 7527 Jul, [facility] [place] [facility] [address] [id number] [place] [address]- 4943 Jul, [facility] [place] [facility] [address] [id number] [place] [address]- 1945 Jul, [facility] [place] [facility] [address] [id number] [place] [address]- 8433 Jul, [facility] [place] [facility] [address] [id number] [place] [address]- 8006 Jun, [facility] [place] [facility] [address] [id number] [place] [address]- 8465 Jun, [facility] [place] [facility] [address] [id number] [place] [address]- 9897 May, [facility] [place] [facility] [address] [id number] [place] [address]- 8926 May, [facility] [place] [facility] [address] [id number] [place] [address]- 5630 May, [facility] [place] [facility] [address] [id number] [place] [address]- 6271 May, [facility] [place] [facility] [address] [id number] [place] [address]- 3121 May, [facility] [place] [facility] [address] [id number] [place] [address]- 6286 May, [facility] [place] [facility] [address] [id number] [place] [address]- 5288 May, [facility] [place] [facility] [address] [id number] [place] [address]- 5179 May, [facility] [place] [facility] [address] [id number] [place] [address]- 8733 May, [facility] [place] [facility] [address] [id number] [place] [address]- 7375 May, [facility] [place] [facility] [address] [id number] [place] [address]- 5155 May, [facility] [place] [facility] [address] [id number] [place] [address]- 7790 May, [facility] [place] [facility] [address] [id number] [place] [address]- 0528 May, [facility] [place] [facility] [address] [id number] [place] [address]- 9736 Feb, [facility] [place] [facility] [address] [id number] [place] [address]- 9178 Feb, [facility] [place] [facility] [address] [id number] [place] [address]- 5696 20 Jan, 2014 [facility] [place] [facility] [address] [id number] [place] [address]- 7862 20 Jan, 2013 [facility] [place] [facility] [address] [id number] [place] [address]- 2786 18 Jan, 2013 [facility] [place] [facility] [address] [id number] [place] [address]- 3884 18 Jan, 2013 [facility] [place] [facility] [address] [id number] [place] [address]- 2761 12 Jan, 2013 [facility] [place] [facility] [address] [id number] [place] [address]- 3854 12 Jan2013 [facility] [place] [facility] [address] [id number] [place] [address]- 5529 12 Jan, 2014 [facility] [place] [facility] [address] [id number] [place] [address]- 0893 12 Jan, 2014 [facility] [place] [facility] [address] [id number] [place] [address]- 1801 Jan, [facility] [place] [facility] [address] [id number] [place] [address]- 6180 Jan, [facility] [place] [facility] [address] [id number] [place] [address]- 0986 Jan, [facility] [place] [facility] [address] [id number] [place] [address]- 3713 Jan, [facility] [place] [facility] [address] [id number] [place] [address]- 5750 Oct, [facility] [place] [facility] [address] [id number] [place] [address]- 8502 Oct, [facility] [place] [facility] [address] [id number] [place] [address]- 4844 Oct, [facility] [place] [facility] [address] [id number] [place] [address]- 0815 Oct, [facility] [place] [facility] [address] [id number] [place] [address]- 3197 Jun, [facility] [place] [facility] [address] [id number] [place] [address]- 8856 Jun, [facility] [place] [facility] [address] [id number] [place] [address]- 5848 Jun, [facility] [place] [facility] [address] [id number] [place] [address]- 7728 Jun, [facility] [place] [facility] [address] [id number] [place] [address]- 4504 Apr, [facility] [place] [facility] [address] [id number] [place] [address]- 8422 Apr, [facility] [address] [id number] [place] [address]- 9216 Feb, [facility] [place] [facility] [address] [id number] [place] 7350 Feb, [facility] [address] [id number] [place] [address]- 0624 Dec, [facility] [place] [facility] [address] [id number] [place] [address]- 6544 Dec, [facility] [address] [id number] [place] [address]- 5344 Nov, [facility] [address] [id number] [place] [address]- 5270 Nov, [facility] [address] [id number] [place] [address]- 7607 Nov, [facility] [address] [id number] [place] [address]- 5379 Oct, [facility] [address] [id number] [place] [address]- 1951 September, [facility] [address] [id number] [place] [address]- 3159 September, [facility] [address] [id number] [place] [address]- 5882 Aug, [facility] [place] [facility] [address] [id number] [place] [address]- 0828 Aug, [facility] [place] [facility] [address] [id number] [place] [address]- 1905 Aug, [facility] [place] [facility] [address] [id number] [place] [address]- 9521 Aug, [facility] [place] [facility] [address] [id number] [place] [address]- 9655 Aug, [facility] [place] [facility] [address] [id number] [place] [address]- 2683 02 Aug, 2012 [facility] [address] [id number] [place] [address]- 5236 28 Jul, 2012 [facility] [place] [facility] [address] [id number] [place] [address]- 2176 Jul, [facility] [address] [id number] [place] [address]- 7166 Jul, [facility] [place] [facility] [address] [id number] [place] [address]- 6495 15 Jul, 2012 [facility] [address] [id number] [place] [address]- 1956 Jul, [facility] [address] [id number] [place] [address]- 9316 Jul, [facility] [address] [id number] [place] [address]- 9591 Jun, [facility] [address] [id number] [place] [address]- 2705 Jun, [facility] [address] [id number] [place] [address]- 8459 May, [facility] [address] [id number] [place] [address]- 5252 May, [facility] [address] [id number] [place] [address]- 7213 Apr, [facility] [address] [id number] [place] [address]- 2886 Apr, [facility] [place] [facility] [address] [id number] [place] [address]- 9416 Apr, [facility] [place] [facility] [address] [id number] [place] [address]- 7336 Apr, [facility] [place] [facility] [address] [id number] [place] [address]- 9185 Apr, [facility] [place] [facility] [address] [id number] [place] [address]- 8535 Mar, [facility] [place] [facility] [address] [id number] [place] [address]- 9324 Mar, [facility] [place] [facility] [address] [facility] [id number] [place] [address]- 7995 Mar, [facility] [place] [facility] [address] [id number] [place] [address]- 1825 Mar, [facility] [place] [facility] [address] [id number] [place] [address]- 3082 Mar, [facility] [place] [facility] [address] [id number] [place] [address], [place] [address] Mar, [facility] [place] [facility] [address] [facility] [id number] [place] [address] Mar, [facility] [place] [facility] [address] [id number] [place] [address] Feb, [facility] [place] [facility] [address] [id number] [place] [address] Feb, [facility] [place] [facility] [address] [facility] [id number] [place] [address] Feb, [facility] [place] [facility] [address] [id number] [place] [address] Feb, [facility] [place] [facility] [address] [id number] [place] [address] Dec, [facility] [place] [facility] [address] [id number] [place] [address] Nov, [facility] [place] [facility] [address] [facility] [id number] [place] [address] Nov, [facility] [place] [facility] [address] [facility] [id number] [place] [address] Oct, [facility] [place] [facility] [address] [id number] [place] [address] 27 Oct, 2011 [facility] [place] [facility] [address] [id number] [place] [address] 23 Oct, 2011 [facility] [place] [facility] [address] [id number] [place] [address] Oct, [facility] [place] [facility] [address] [id number] [place] [address] Oct, [facility] [place] [facility] [address] [id number] [place] [address] 17 Oct, 2011 [facility] [place] [facility] [address] [id number] [place] [address] 06 Oct, 2011 [facility] [place] [facility] [address] [id number] [place] [address] Aug, [facility] [place] [facility] [address] [id number] [place] [address] Jul, [facility] [place] [facility] [address] [id number] [place] [address]- [address] Jul, [facility] [place] [facility] [address] [id number] [place] [address] Jul, [facility] [place] [facility] [address] [facility] [id number] [place] [address] Jul, [facility] [place] [facility] [address] [id number] [place] [address] Jul, [facility] [place] [facility] [address] [id number] [place] [address] Jul, [facility] [place] [facility] [address] [id number] [place] [address] Jul, [facility] [place] [facility] [address] [id number] [place] [address] Jun, [facility] [place] [facility] [address] [id number] [place] [address] May, [facility] [place] [facility] [address] [id number] [place] [address]- [address] May, [facility] [address] [id number] [place] [address] May, [facility] [address] [id number] [place] [address] Apr, [facility] [place] [facility] [address] [id number] [place] [address] Apr, [facility] [address] [id number] [place] [address] Apr, [facility] [address] [id number] [place] [address] Apr, [facility] [address] [id number] [place] [address] Apr, [facility] [address] [id number] [place] [address] Apr, [facility] [address] [id number] [place] [address] Mar, [facility] [address] [id number] [place] [address] Mar, [facility] [place] [facility] [address] [id number] [place] [address] Mar, [facility] [address] [id number] [place] [address] Mar, [facility] [place] [facility] [address] [id number] [place] [address] Mar, [facility] [place] [facility] [address] [id number] [place] [address] Mar, [facility] [place] [facility] [address] [id number] [place] [address] Mar, [facility] [place] [facility] [address] [id number] [place] [address] Dec, [facility] [address] [facility] [id number] [place] [address] Aug, [facility] [id number] [place] [address] Apr, [facility] [address] [id number] [place] [address] Mar, [facility] [address] [facility] [id number] [place] [address] Mar, [facility] [address] [facility] [id number] [place] [address] Mar, [facility] [address] [id number] [place] [address] Mar, [facility] [id number] [place] [address] September, [facility] [id number] [place] [address] Mar, [facility] [id number] [place] [address] Feb, [facility] [id number] [place] [address] Oct, [facility] [address] [id number] [place] [address] September, [facility] [address] [id number] [place] [address] Apr, [facility] [address] [id number] [address] Mar, IMMUNIZATIONS No Known Immunizations SOCIAL HISTORY Never Assessed REASON FOR VISIT Hospital f/u[facility], chest pain---DBennettRN, c/o halos and floaters, h/ o glaucoma PLAN OF CARE Activity Details Follow Up consults as ordered Reason: VITAL SIGNS Height 65 in 2017-02-28 Weight 271 lbs 2017-02-28 Temperature 98.5 degrees Fahrenheit 2017-02-28 Heart Rate 80 bpm 2017-02-28 Respiratory Rate 20 2017-02-28 BMI 45.09 kg/m2 2017-02-28 Blood pressure systolic 128 mmHg 2017-02-28 Blood pressure diastolic 64 mmHg 2017-02-28 MEDICATIONS Medication Instructions Dosage Frequency Start Date End Date Duration Status Vitamin C 500 mg 1 tablet by Oral route 1 time per day May, Active Amlodipine Besylate 10 mg Orally Once a day 1 tablet 24h Active Zofran 8 MG Orally every 8 hours, PRN 1 tablet Jun, 03 days Active Tramadol HCl 50 mg Orally Once a day prn severe pain 1 tablet as needed Jan, Active Neurontin 300 MG Orally at bedtime 1 capsule Active Symbicort 160-4.5 MCG/ACT Inhalation Twice a day sample today 1 puffs May, Active Omeprazole 40 mg Orally Once a day 1 capsule 24h Active Triamcinolone Acetonide 0.1 % Externally Twice a day 1 application to affected area 12h September, 7 Active Multivitamin Active Simvastatin 10 mg Orally Once a day 1 tablet in the evening 24h Active Toprol XL 200 mg Orally Once a day 1 tablets 24h Active Proventil HFA 90 mcg/actuation 2 puffs by Inhalation route 4 times per day PRN May, Active Fluticasone Propionate 50 MCG/ACT Nasally Once a day 1 spray in each nostril 24h 30 Active Lisinopril 20 mg Orally Once a day 1 tablet 24h Active Triamcinolone Acetonide 0.1 % Externally Twice a day 1 application to affected area 12h Feb, Active Gabapentin 100 mg Orally 2 times a day 1 capsule 12h Active Calcium 600 MG Active Cranberry 400 mg Orally Once a day 2 capsule with meals 24h Active RESULTS Name Result Date Reference Range Xray : Shoulder, Right 2 view (IN HOUSE) 2017-02-28 PROCEDURES Procedure Date Ordered Result Body Site X-RAY EXAM OF SHOULDER Feb 28, 2017 INSTRUCTIONS MEDICATIONS ADMINISTERED No Known Medications MEDICAL (GENERAL) HISTORY Type Description Date Medical History coronary artery disease (emlinda Smith) Medical History 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 Medical History hypertension Medical History renal artery stenosis Medical History hyperlipidemia Medical History peripheral vascular disease Medical History Dysphagia, unspecified Medical History Other dental caries Medical History Right Upper Lung Nodule Stable CT 2011 & 2016 Medical History Periapical abscess without sinus Medical [...]
--- OUTSIDE RECORDS SUMMARY | 2018-02-08 02:19 | XMS REPORT ---
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 836319913 Problem Essential hypertension I10 Active 31018076 Problem Gastroesophageal reflux disease without esophagitis K21.9 Active 184226844 Problem PVD (peripheral vascular disease) I73.9 Active 725745054 Problem Renal artery stenosis I70.1 Active 122746237 Problem Abdominal aortic aneurysm (AAA) without rupture I71.4 Active 76905158 Problem Stenosis of right renal artery I70.1 Active [id number] Problem Prediabetes R73.03 Active 364881263 Problem Seasonal allergic rhinitis, unspecified allergic rhinitis trigger J30.2 Active 187600316 Problem Hepatic steatosis K76.0 Active 518847778 Problem Peripheral vascular disease I73.9 Active 257788740 Problem Dysphagia, unspecified R13.10 Active 56546128 Problem Anemia of chronic disease D63.8 Active 500457516 Problem Chronic kidney disease, unspecified N18.9 Active 546179769 Problem Urinary, incontinence, stress female N39.3 Active 07460585 Problem Cervicalgia M54.2 Active [id number] ALLERGIES No Information ENCOUNTERS Encounter Location Date Diagnosis [facility] [address] [facility] [id number] [address] Jul, Abdominal aortic aneurysm (AAA) without rupture I71.4 ; PVD (peripheral vascular disease) I73.9 ; Renal artery stenosis I70.1 and Essential hypertension I10 [facility] [address] [facility] [id number], [place] [address] May, Essential hypertension I10 ; Pure hyperglyceridemia E78.1 ; Abdominal aortic aneurysm (AAA) without rupture I71.4 ; Chronic kidney disease, unspecified N18.9 ; Gastroesophageal reflux disease without esophagitis K21.9 ; 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 ; Stenosis of right renal artery I70.1 ; Anemia of chronic disease D63.8 and Prediabetes R73.03 [place] [address] [id number] [place] [address] 54779- 1414 May, Tinea corporis B35.4 and Viral URI J06.9 [place] [address] [address]- [address] May, [place] [address] 38779- 0662 Apr, [place] [address] [address]- 9333 Apr, Cervical radiculopathy M54.12 [facility] [address] [address] Apr, Flank pain R10.9 and Acute pyelonephritis N10 [place] [address] [address]- 1378 Apr, [place] [address] [id number] [place] [address] 86991- 1408 Mar, [place] [address] [id number] [place] [address] 01518- 2125 Feb, Pain of right shoulder region M25.511 [place] [address] 9[address]- 4882 Feb, History of glaucoma Z86.69 ; Vision changes H53.9 ; Abdominal aortic aneurysm (AAA) without rupture I71.4 ; Xerosis of skin L85.3 and Pain in right shoulder M25.511 [place] [address] [id number] [place] [address] 87837- 0121 Feb, [place] [address] 74334- 9778 Jan, Essential hypertension I10 ; Pure hyperglyceridemia E78.1 ; Chronic kidney disease, unspecified N18.9 ; Gastroesophageal reflux disease without esophagitis K21.9 ; 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 pylori infection A04.8 and Prediabetes R73.03 [facility] [id number] [place] [address]277 -7104 Oct, Seasonal allergic rhinitis, unspecified allergic rhinitis trigger J30.2 [place] [address] [id number] [place] [address] 19913- 7418 September, Eustachian tube dysfunction, left H69.82 and Candidiasis of breast B37.89 [place] [address] [id number] [place] [address] 28910- 4736 Jul, Blood glucose abnormal R73.09 ; Essential hypertension I10 ; Pure hyperglyceridemia E78.1 ; Chronic kidney disease, unspecified N18.9 ; Gastroesophageal reflux disease without esophagitis K21.9 ; 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 ; Abdominal aortic aneurysm (AAA) without rupture I71.4 ; Stenosis of right renal artery I70.1 ; Anemia of chronic disease D63.8 and Acute non-recurrent maxillary sinusitis J01.00 [place] [address] [id number] [place] [address] 43270- 0475 Jun, Acute non-recurrent maxillary sinusitis J01.00 ; Acute mucoid otitis media of left ear H65.112 ; Nausea R11.0 and Fever and chills R50.9 [place] [address] 59582- 3575 May, Acute right flank pain R10.9 [place] [address] [id number] [place] [address] 00745- 6898 Apr, Acute nasopharyngitis J00 ; Pure hyperglyceridemia E78.1 and Chronic kidney disease, unspecified N18.9 [place] [id number] [place] [address] 94830- 8162 Apr, [address] 41283- 2771 Apr, Blood glucose abnormal R73.09 ; Essential hypertension I10 ; Pure hyperglyceridemia E78.1 ; Chronic kidney disease, unspecified N18.9 ; Gastroesophageal reflux disease without esophagitis K21.9 ; 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 ; Abdominal aortic aneurysm (AAA) without rupture I71.4 ; Stenosis of right renal artery I70.1 ; RUQ pain R10.11 and Anemia of chronic disease D63.8 [place] [address] [id number] [place] [address] 62236- 0204 Mar, Blood glucose abnormal R73.09 [place] [address] [id number] [place] [address] 52589- 9643 Mar, Cellulitis of right lower leg L03.115 [facility] [address] [id number], [place] [address] Feb, [place] [address] [id number] [place] [address] 95349- 7275 Feb, Dysuria R30.0 and Upper respiratory tract infection, unspecified type J06.9 [place] [address] [id number] [place] [address] 96254- 4852 Jan, [place] [id number] [place] [address] 47983- 9938 Jan, [place] [address] [id number] [place] [address] 32180- 1594 Dec, [place] [id number] [place] [address] 87407- 2968 Dec, Anemia of chronic disease D63.8 ; Essential hypertension I10 ; Pure hyperglyceridemia E78.1 ; Chronic kidney disease, unspecified N18.9 ; Gastroesophageal reflux disease without esophagitis K21.9 ; 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 and Pain in right knee M25.561 [place] [address] [id number] [place] [address] 64689- 6840 Dec, Left shoulder strain, subsequent encounter S46.912D ; Urinary frequency R35.0 ; Lung nodule, solitary R91.1 ; Essential hypertension I10 and Acute cystitis without hematuria N30.00 [place] [address] [id number] [place] [address] 59219- 0426 Nov, Left-sided chest wall pain R07.89 and Abnormal chest xray R93.8 [place] [id number] [place] [address] 08511- 5656 Nov, Pain of right lower extremity M79.604 ; Swelling of right lower extremity M79.89 ; Diarrhea, unspecified R19.7 ; Nausea with vomiting, unspecified R11.2 ; Left-sided chest wall pain R07.89 ; Chronic kidney disease, unspecified N18.9 ; Gastroesophageal reflux disease without esophagitis K21.9 and Other seasonal allergic rhinitis J30.2 [place] [address] [id number] [place] [address] 97069- 5190 September, Essential hypertension I10 ; Chronic kidney disease, unspecified N18.9 ; Anemia of chronic disease D63.8 ; Pure hyperglyceridemia E78.1 ; Peripheral vascular disease I73.9 ; Abnormal glucose R73.09 ; 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 ; Gastroesophageal reflux disease without esophagitis K21.9 ; Allergic rhinitis J30.9 and Rash R21 [place] [address] 06615- 2917 Aug, Abdominal pain R10.9 and Constipation K59.[address] 47730- 6715 Jul, Injury of toe on right foot S99.921A [address] 41532- 8314 Jul, [place] [address] 60646- 4454 Jul, Essential hypertension I10 ; Chronic kidney disease, unspecified N18.9 ; Anemia of chronic disease D63.8 ; Pure hyperglyceridemia E78.1 ; Peripheral vascular disease I73.9 ; Abnormal glucose R73.09 ; 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 ; Gastroesophageal reflux disease without esophagitis K21.9 and Allergic rhinitis J30.9 [place] [address] [id number] [place] [address] 65837- 6081 Jun, Low back pain M54.5 [place] [address] [id number] [place] [address] 67847- 6171 Jun, [address] 09562- 1645 May, URI (upper respiratory infection) J06.9 [place] [address] [id number] [place] [address] 26733- 0584 Apr, Essential hypertension I10 [place] [id number] [address]- 8496 Apr, Essential hypertension I10 ; Chronic kidney disease, unspecified N18.9 ; Anemia of chronic disease D63.8 ; Pure hyperglyceridemia E78.1 ; Peripheral vascular disease I73.9 ; Abnormal glucose R73.09 ; URI ( upper respiratory infection) J06.9 ; 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 ; Gastroesophageal reflux disease without esophagitis K21.9 and Cough R05 [place] [address] 94260- 9780 Mar, Flank pain R10.9 and URI (upper respiratory infection) J06.9 [place] [address] 70832- 6746 Mar, Right-sided low back pain without sciatica M54.5 and Hematuria, unspecified R31.9 [place] [address] 72155- 8612 Mar, Hypopigmentation L81.9 and Hyperpigmentation L81.9 [place] [address] 39997- 2352 Mar, [place] [address] 49886- 7152 Mar, Acute cystitis with hematuria N30.01 [place] [address] 49336- 5593 Mar, [place] [address] 73257- 6925 Feb, Furuncle L02.92 ; Hypopigmentation L81.9 ; Hyperpigmentation L81.9 ; Urinary frequency R35.0 ; Screening for malignant neoplasm of cervix Z12.4 ; Vaginal discharge N89.8 ; Urinary, incontinence, stress female N39.3 and Vaginal irritation N89.8 [place] [address] 87164- 0775 Jan, Muscle spasm 728.85 ; Unspecified peripheral vascular disease 443.9 ; Benign essential hypertension 401.1 ; Chronic renal insufficiency 585.9 ; Chronic constipation 564.00 ; GERD (gastroesophageal reflux disease) 530.81 ; Hyperlipidemia 272.4 and Chronic leg pain 729.5 [place] [address] [id number] [place] [address] 39496- 1292 Jan, Sinusitis 473.[address] 30408- 7089 Dec, [place] [address] 20152- 3895 Dec, Acute bronchitis 466.[address] 15696- 7231 Dec, Acute bronchitis 466.[address] 03806- 4238 Dec, Unspecified episodic mood disorder 296.[address] 00436- 2114 Dec, Visit for suture removal V58.[address] 78577- 2811 Nov, Allergic rhinitis 477.9 and Onychomycosis 110.1 [place] [id number] [place] [address] 77120- 1525 Oct, Muscle spasm 728.85 ; Benign essential hypertension 401.1 ; Chronic renal insufficiency 585.9 ; Chronic constipation 564.00 ; GERD ( gastroesophageal reflux disease) 530.81 and Hyperlipidemia 272.4 [place] [id number] [place] [address] 58202- 5176 Oct, Otalgia of left ear 388.70 [place] [id number] [place] [address] 58778- 8150 Oct, Unspecified episodic mood disorder 296.[address] 64580- 6300 September, Unspecified episodic mood disorder 296.90 [facility] [address] [address]- 1581 September, Unspecified episodic mood disorder 296.90 [facility] [id number] [id number] September, Urinary frequency 788.41 and Constipation 564.00 [facility] [id number] [place] [address] 24636- 1521 Aug, [facility] [id number] [place] [address] 64763- 6577 Aug, [facility] [id number] [place] [address] 83833- 2561 Jul, [facility] [id number] [place] [address] 959379- 0570 Jul, [facility] OF [facility] [id number] [place] [address] 81202- 8835 Jul, [facility] OF [facility] [address], [place] [address]- 1123 Jul, [facility] OF [facility] [address] 9359 Jul, [facility] [address] 2228 Jul, [facility] OF [facility] [address], [place] [address]- 1467 Jul, [facility] [address], [place] [address]- 6058 Jul, [facility] OF [facility] [address], [place] [address]- 7616 Jul, [facility] [address], [place] [address]- 7806 Jul, [facility] [id number] [place] [address] [place] [address]- 9736 Jun, [facility] [place] [facility] [address] [id number] [place] [address]- 8850 Jun, [facility] [place] [facility] [address] [id number] [place] [address]- 1939 May, [facility] [place] [facility] [address] [id number] [place] [address]- 1172 May, [facility] [place] [facility] [address] [id number] [place] [address]- 4823 May, [facility] [place] [facility] [address] [id number] [place] [address]- 8862 May, [facility] [place] [facility] [address] [id number] [place] [address]- 9258 May, [facility] [place] [facility] [address] [id number] [place] [address]- 4172 May, [facility] [place] [facility] [address] [id number] [place] [address]- 9938 May, [facility] [place] [facility] [address] [id number] [place] [address]- 7989 May, [facility] [place] [facility] [address] [id number] [place] [address]- 1199 May, [facility] [place] [facility] [address] [id number] [place] [address]- 8563 May, [facility] [place] [facility] [address] [id number], [place] [address]- 9036 May, [facility] [place] [facility] [address] [id number] [place] [address]- 8303 May, [facility] [place] [facility] [address] [id number] [place] [address]- 8966 May, [facility] [place] [facility] [address] [id number], [place] [address]- 7769 Feb, [facility] [place] [facility] [address] [id number] [place] [address]- 4957 07 Feb, 2014 [facility] [place] [facility] [address] [id number] [place] [address]- 2315 20 Jan, 2013 [facility] [place] [facility] [address] [id number] [place] [address]- 6065 20 Jan, 2013 [facility] [place] [facility] [address] [id number] [place] [address]- 8749 18 Jan, 2013 [facility] [place] [facility] [address] [id number] [place] [address]- 3513 18 Jan, 2013 [facility] [place] [facility] [address] [id number] [place] [address]- 7006 12 Jan, 2014 [facility] [place] [facility] [address] [id number] [place] [address]- 0499 12 Jan, 2013 [facility] [place] [facility] [address] [id number] [place] [address]- 9178 12 Jan, 2013 [facility] [place] [facility] [address] [id number] [place] [address]- 4198 12 Jan, 2014 [facility] [place] [facility] [address] [id number] [place] [address]- 2259 11 Jan, 2014 [facility] [place] [facility] [address] [id number] [place] [address]- 6892 11 Jan, 2014 [facility] [place] [facility] [address] [id number] [place] [address]- 2634 10 Jan, 2014 [facility] [place] [facility] [address] [id number] [place] [address]- 8374 10 Jan, 2014 [facility] [place] [facility] [address] [id number] [place] [address]- 1658 Oct, [facility] [place] [facility] [address] [id number] [place] [address]- 5014 Oct, [facility] [place] [facility] [address] [id number] [place] [address]- 5356 Oct, [facility] [place] [facility] [address] [id number] [place] [address]- 7943 Oct, [facility] [place] [facility] [address] [id number] [place] [address]- 3035 Jun, [facility] [place] [facility] [address] [id number] [place] [address]- 5936 Jun, [facility] [place] [facility] [address] [id number] [place] [address]- 5202 Jun, [facility] [place] [facility] [address] [id number] [place] [address]- 4161 Jun, [facility] [place] [facility] [address] [id number] [place] 0286 Apr, [facility] [place] [facility] [address] [facility] [id number] [place] [address]- 7240 Apr, [facility] [place] [facility] [address] [id number] [place] [address]- 1675 Feb, [facility] [place] [facility] [address] [facility] [id number] [place] [address]- 8810 Feb, [facility] [place] [facility] [address] [facility] [id number] [place] [address]- 0876 Dec, [facility] [place] [facility] [address] [facility] [id number] [place] [address]- 6734 Dec, [facility] [place] [facility] [address] [id number] [place] [address]- 1457 Nov, [facility] [place] [facility] [address] [id number] [place] [address]- 1345 Nov, [facility] [place] [facility] [address] [id number] [place] [address]- 0678 Nov, [facility] [place] [facility] [address] [facility] [id number] [place] [address]- 0185 Oct, [facility] [place] [facility] [address] [id number] [place] [address]- 9940 September, [facility] [address] [id number] [place] [address]- 4146 September, [facility] [place] [facility] [address] [id number] [place] [address]- 4316 Aug, [facility] [address] [id number] [place] [address]- 1791 Aug, [facility] [address] [id number] [place] [address]- 2786 Aug, [facility] [address] [id number] [place] [address]- 9224 Aug, [facility] [address] [id number] [place] [address]- 6904 Aug, [facility] [address] [id number] [place] [address]- 7490 Aug, [facility] [address] [id number] [place] [address]- 2975 Jul, [facility] [address] [id number] [place] [address]- 1199 Jul, [facility] [address] [id number] [place] [address]- 1864 Jul, [facility] [address] [id number] [place] [address]- 7873 15 Jul, 2012 [facility] [address] [id number] [place] [address]- 0695 Jul, [facility] [place] [facility] [address] [id number] [place] [address]- 9652 Jul, [facility] [place] [facility] [address] [id number] [place] [address]- 2546 Jun, [facility] [place] [facility] [address] [id number] [place] [address]- 3810 Jun, [facility] [place] [facility] [address] [id number] [place] [address]- 8090 May, [facility] [place] [facility] [address] [id number] [place] [address]- 7119 May, [facility] [place] [facility] [address] [facility] [id number] [place] [address]- 0773 Apr, [facility] [place] [facility] [address] [id number] [place] [address]- 2326 Apr, [facility] [place] [facility] [address] [id number] [place] [address]- 2435 Apr, [facility] [place] [facility] [address] [id number] [place] [address]- 8230 Apr, [facility] [place] [facility] [address] [facility] [id number] [place] [address]- 1472 Apr, [facility] [place] [facility] [address] [id number], [place] [address]- 3796 Mar, [facility] [place] [facility] [address] [id number] [place] [address]- 3257 Mar, [facility] [place] [facility] [address] [facility] [id number] [place] [address]- 1164 Mar, [facility] [place] [facility] [address] [id number], [place] [address]- 2171 Mar, [facility] [place] [facility] [address] [id number], [place] [address]- 0271 Mar, [facility] [place] [facility] [address] [id number] [place] [address]- 8333 Mar, [facility] [place] [facility] [address] [facility] [id number], [place] [address]- 2623 Mar, [facility] [place] [facility] [address] [facility] [id number] [place] [address]- 2440 Feb, [facility] [place] [facility] [address] [id number] [place] [address]- 2505 Feb, [facility] [place] [facility] [address] [id number] [place] [address]- 8900 Feb, [facility] [place] [facility] [address] [id number] [place] [address]- 6111 Feb, [facility] [place] [facility] [address] [id number] [place] [address]- 0533 Dec, [facility] [place] [facility] [address] [id number] [place] [address]- 4565 Nov, [facility] [place] [facility] [address] [id number] [place] [address]- 7911 Nov, [facility] [place] [facility] [address] [id number] [place] [address]- 7670 Oct, [facility] [place] [facility] [address] [id number] [place] [address] Oct, [facility] [place] [facility] [address] [id number] [place] [address] Oct, [facility] [place] [facility] [address] [id number] [place] [address] Oct, [facility] [place] [facility] [address] [id number] [place] [address] Oct, [facility] [place] [facility] [address] [id number] [place] [address] Oct, [facility] [place] [facility] [address] [id number] [place] [address] Oct, [facility] [place] [facility] [address] [id number] [place] [address] Aug, [facility] [place] [facility] [address] [id number] [place] [address] Jul, [facility] [place] [facility] [address] [id number] [id number] Jul, [facility] [place] [facility] [address] [id number] [place] [address] 15 Jul, 2011 [facility] [address] [id number] [place] [address] Jul, [facility] [address] [id number] [place] [address] Jul, [facility] [address] [id number] [place] [address] Jul, [facility] [address] [id number] [place] [address] Jul, [facility] [address] [id number] [place] [address] Jun, [facility] [address] [id number] [place] [address] May, [facility] [address] [id number] [place] [address] May, [facility] [address] [id number] [place] [address] May, [facility] [address] [id number] [place] [address] Apr, [facility] [address] [id number] [place] [address] Apr, [facility] [address] [id number] [place] [address] 16 Apr, 2011 [facility] [place] [facility] [address] [id number] [place] [address] 15 Apr, 2011 [facility] [place] [facility] [address] [id number] [place] [address] Apr, [facility] [place] [facility] [address] [id number] [place] [address] 05 Apr, 2011 [facility] [address] [id number], [place] [address] Mar, [facility] [place] [facility] [address] [id number] [place] [address] Mar, [facility] [place] [facility] [address] [id number] [place] [address] Mar, [facility] [place] [facility] [address] [id number] [place] [address] Mar, [facility] [place] [facility] [address] [id number] [place] [address] Mar, [facility] [place] [facility] [address] [id number] [place] [address] Mar, [facility] [place] [facility] [address] [id number] [place] [address] Mar, [facility] [place] [facility] [address] [id number] [place] [address] Dec, [facility] [place] [facility] [address] [id number] [place] [address] Aug, [facility] [place] [facility] [address] [id number] [place] [address] Apr, [facility] [place] [facility] [address] [id number] [place] [address] Mar, [facility] [place] [facility] [address] [id number], [place] [address] Mar, [facility] [place] [facility] [address] [id number] [place] [address] Mar, [facility] [place] [facility] [address] [id number] [place] [address] Mar, [facility] [place] [facility] [address] [id number] [place] [address] September, [facility] [place] [facility] [address] [id number] [place] [address] Mar, [facility] [place] [facility] [address] [id number] [place] [address] Feb, [facility] [address] [facility] [id number], [place] [address] Oct, [facility] [address] [id number], [place] [address] September, [facility] [address] [facility] [id number] [address] Apr, [facility] [address] [facility] [id number], [place] [address] Mar, IMMUNIZATIONS No Known Immunizations SOCIAL HISTORY Never Assessed REASON FOR VISIT DM ed scheduled PLAN OF CARE VITAL SIGNS MEDICATIONS No [...]
--- OUTSIDE RECORDS SUMMARY | 2018-02-08 02:19 | XMS REPORT ---
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 Phone SINTIA BOSCH Unavailable Allergies No Known Allergies Problems Problem Type Condition Code Onset Dates Condition Status Problem Cervicalgia M54.2 Active Problem Peripheral vascular disease I73.9 Active Problem Dysphagia, unspecified R13.10 Active Problem Urinary, incontinence, stress female N39.3 Active Problem Periapical abscess without sinus K04.7 Active Problem Anemia of chronic disease D63.8 Active Problem Chronic kidney disease, unspecified N18.9 Active Problem Abnormal glucose R73.09 Active Problem Tachycardia, unspecified R00.0 Active Problem Pure hyperglyceridemia E78.1 Active Problem Abnormal blood chemistry R79.9 Active Medications No Known Medications Results No Known Results Summary Purpose eClinicalWorks Submission
--- OUTSIDE RECORDS SUMMARY | 2018-02-08 02:19 | XMS REPORT ---
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 Role Phone BENSON SULLIVAN CP Unavailable Allergies, Adverse Reactions, Alerts Substance Reaction Event Type Tekturna Info Not Available Drug Allergy Niacin rash Drug Allergy Macrobid anaphylaxis Drug Allergy Iodine (IV contrast) Drug Allergy Ibuprofen (All NSAIDs) Drug Allergy Bactrim resp distress Drug Allergy Problems Problem Type Condition Code Onset Dates Condition Status Problem Chronic kidney disease, unspecified N18.9 Active Assessment Upper respiratory tract infection, unspecified type J06.9 Active Problem Gastroesophageal reflux disease without esophagitis K21.9 Active Assessment Dysuria R30.0 Active Problem 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 [...] Instructions Start Date End Date Status Dosage Amlodipine Besylate [facility] [address]-15 10 mg Orally Once a day 1 tablet Simvastatin [facility] [address]-68 10 mg Orally Once a day 1 tablet in the evening Vitamin C [facility] [address]-16 500 mg Jun 02, 2014 1 tablet by Oral route 1 time per day Proventil HFA [facility] [address]-46 90 mcg/actuation 2 puff(s) inhaled 4 times a day May 22, 2014 2 puffs by Inhalation route 4 times per day PRN Cyclobenzaprine HCl [facility] [address]-91 10 mg Orally at hs prn 2015 1 tablet Gabapentin [facility] 76857066903 100 MG Orally Three times a day 1 tablet Triamcinolone Acetonide [facility] [address]-59 0.1 % Externally Twice a day September 23, 2015 1 application to affected area Multivitamin [facility] [address] Orally not defined Symbicort [facility] [address]-62 160-4.5 MCG/ACT Inhalation Twice a day sample today May 17, 2015 1 puffs Omeprazole [facility] [address]-72 40 mg Orally Once a day 1 capsule Lisinopril [facility] [address]-79 20 MG Orally Once a day 1 tablet Calcium [facility] 22[address]77 600 MG Orally not defined Fluticasone Propionate [facility] [address]-12 50 MCG/ACT Nasally Once a day 1 spray in each nostril Toprol XL [facility] [address]-17 200 MG Orally Once a day 1 tablet Tramadol HCl [facility] [address]-28 50 mg Orally Once a day prn severe pain Jan 06, 2016 1 tablet as needed Amoxicillin [facility] [address]-85 500 MG Orally 3 times a day Feb 25, 2016 Mar 06, 2016 1 capsule Procedures Procedure Coding System Code Date Office Visit, Est Pt., Level 3 CPT-4 79789 Feb 25, 2016 URINALYSIS, AUTO, W/O SCOPE CPT-4 32249 Feb 25, 2016 Vital Signs Date/Time: Feb 25, 2016 Cardiac Monitoring Heart Rate 77 bpm Weight 271.2 lbs Height 65 in BMI 45.13 Index Blood Pressure Diastolic 77 mmHg Blood Pressure Systolic 134 mmHg Results Name Result Date Reference Range Unit Abnormality Flag UA LONG DIP (IN HOUSE) ----MONSERRAT Trace 20160225 ----NIT Negative 20160225 ----SG 1.010 20160225 ----KET Negative 20160225 ----LYNN Negative 20160225 ----GLU Negative 20160225 ----Odor None 20160225 ----pH 5.5 20160225 ----BLO Negative 20160225 ----URO 0.2 20160225 ----Protein Negative 20160225 ----Lot # [id number] ----Exp date [id number] ----Clarity Clear [id number] ----Color Yellow [id number] Summary Purpose eClinicalWorks Submission
[2018-02-08] MEDS: NITROGLYCERIN 0.4 MG SL TABS BTL 25'S SL PRN ×2 (02:20→02:25)
--- OUTSIDE RECORDS SUMMARY | 2018-02-08 02:20 | XMS REPORT ---
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 Role Phone SINTIA BOSCH Unavailable Allergies, Adverse Reactions, Alerts Substance Reaction Event Type Tekturna Info Not Available Drug Allergy Niacin rash Drug Allergy Macrobid anaphylaxis Drug Allergy Iodine (IV contrast) Drug Allergy Ibuprofen (All NSAIDs) Drug Allergy Bactrim resp distress Drug Allergy Problems Problem Type Condition Code Onset Dates Condition Status Problem Cervicalgia M54.2 Active Problem Peripheral vascular disease I73.9 Active Problem Dysphagia, unspecified R13.10 Active Problem Periapical abscess without sinus K04.7 Active Problem Anemia of chronic disease D63.8 Active Problem Chronic kidney disease, unspecified N18.9 Active Problem Abnormal glucose R73.09 Active Problem Tachycardia, unspecified R00.0 Active Problem Pure hyperglyceridemia E78.1 Active Problem Abnormal blood chemistry R79.9 Active Assessment Hematuria, unspecified R31.9 Active Assessment Right-sided low back pain without sciatica M54.5 Active Problem Urinary, incontinence, stress female N39.3 Active Medications Medication Code System Code Instructions Start Date End Date Status Dosage Lisinopril [facility] [address]-26 20 MG Orally Once a day 1 tablet Amlodipine Besylate [facility] [address]-90 10 MG Orally Once a day 1 tablet Proventil HFA [facility] [address]-69 90 mcg/actuation 2 puff(s) inhaled 4 times a day May 22, 2014 2 puffs by Inhalation route 4 times per day PRN Omeprazole [facility] [address]-48 40 MG Orally Once a day 1 capsule Neurontin [facility] [address]-22 100 mg July 31, 2014 1 capsule by Oral route 3 times per day Simvastatin [facility] [address]-84 10 MG Orally Once a day 1 tablet in the evening Vitamin C [facility] [address]-11 500 mg Jun 02, 2014 1 tablet by Oral route 1 time per day Calcium [facility] 58834-05126 600 MG Orally not defined Advair Diskus [facility] [address]-21 250 mcg-50 mcg 1 puff(s) inhaled 2 times a day Jun 30, 2013 1 puffs by Inhalation route 2 times per day Multivitamin [facility] 178[address]263 Orally not defined Toprol XL [facility] [address]-24 100 MG Orally Once a day 2 tablet Procedures Procedure Coding System Code Date URINE CULTURE/COLONY COUNT CPT-4 00258 Mar 31, 2015 Office Visit, Est Pt., Level 3 CPT-4 34414 Mar 31, 2015 URINALYSIS, AUTO, W/O SCOPE CPT-4 89449 Mar 31, 2015 Vital Signs Date/Time: Mar 31, 2015 Temperature 96.8 F Weight 253.6 lbs Height 65 in BMI 42.20 Index Blood Pressure Diastolic 84 mmHg Blood Pressure Systolic 126 mmHg Cardiac Monitoring Heart Rate 72 bpm Results Name Result Date Reference Range Unit Abnormality Flag UA LONG DIP (IN HOUSE) ----MONSERRAT Negative [id number] ----NIT Negative 20150331 ----SG <=1.005 20150331 ----KET Negative 20150331 ----LYNN Negative 20150331 ----GLU Negative 20150331 ----Odor no 20150331 ----pH 5.5 20150331 ----BLO Trace-intact 20150331 ----URO 0.2 20150331 ----Protein Negative 20150331 ----Lot # [id number] ----Exp date 20150331 ----Clarity clear 20150331 ----Color light yellow 20150331 Summary Purpose eClinicalWorks Submission
--- OUTSIDE RECORDS SUMMARY | 2018-02-08 02:20 | XMS REPORT ---
Author Author RIDDHI MURRAY [facility] Address [address] [place] [address] Care Team Providers Care Manager Market Development Name Role Phone RIDDHI MURRAY Unavailable PROBLEMS Type Condition ICD9-CM Code HRF61-AW Code Onset Dates Condition Status SNOMED Code Problem Stenosis of right renal artery I70.1 Active [id number] Problem Seasonal allergic rhinitis, unspecified allergic rhinitis trigger J30.2 Active 839744325 Problem Abdominal aortic aneurysm (AAA) without rupture I71.4 Active 06869741 Problem Mixed hyperlipidemia E78.2 Active 394575940 Problem Other chronic pain G89.29 Active 49166547 Problem PVD (peripheral vascular disease) I73.9 Active 296831133 Problem Prediabetes R73.03 Active 966528663 Problem Arthritis of knee M17.10 Active 556144078 Problem Renal artery stenosis I70.1 Active 369956939 Problem Peripheral vascular disease I73.9 Active 914898936 Problem Dysphagia, unspecified R13.10 Active 59511169 Problem Hepatic steatosis K76.0 Active 247779834 Problem Urinary, incontinence, stress female N39.3 Active 39219227 Problem Anemia of chronic disease D63.8 Active 942227307 Problem 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 562383239 Problem Chronic kidney disease, unspecified N18.9 Active 661190851 Problem Essential hypertension I10 Active 74001894 Problem Cervicalgia M54.2 Active 8040756474072 Problem Gastroesophageal reflux disease without esophagitis K21.9 Active 945723751 ALLERGIES No Information ENCOUNTERS Encounter Location Date Diagnosis [facility] [id number] [place] [address] September, Chronic kidney disease, unspecified N18.9 ; Essential hypertension I10 ; Mixed hyperlipidemia E78.2 and BMI 45.0-49.9, adult Z68.42 [facility] [id number] [place] [address] 77431- 1836 September, [place] [id number] [place] [address] 16559- 3628 September, Essential hypertension I10 ; Chronic kidney disease, unspecified N18.9 ; Prediabetes R73.03 ; Low back pain M54.5 ; Other chronic pain G89.29 ; Arthritis of knee M17.10 ; Pure hyperglyceridemia E78.1 ; Anemia of chronic disease D63.8 and BMI 45.0-49.9, adult Z68.42 [place] [address] 9[address]48- 2839 Aug, [place] [address] 56951- 0298 Jul, Abdominal aortic aneurysm (AAA) without rupture I71.4 ; PVD (peripheral vascular disease) I73.9 ; Renal artery stenosis I70.1 and Essential hypertension I10 [place] [id number] [place] [address] 77448- 3548 May, Essential hypertension I10 ; Pure hyperglyceridemia E78.1 ; Abdominal aortic aneurysm (AAA) without rupture I71.4 ; Chronic kidney disease, unspecified N18.9 ; Gastroesophageal reflux disease without esophagitis K21.9 ; 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 ; Stenosis of right renal artery I70.1 ; Anemia of chronic disease D63.8 and Prediabetes R73.03 [place] [id number] [place] [address] 93852- 9264 May, Tinea corporis B35.4 and Viral URI J06.9 [place] [id number] [place] [address] 11567- 4240 May, [place] [address] 33922- 8002 Apr, [place] [id number] [place] [address] 03939- 2496 Apr, Cervical radiculopathy M54.12 [facility] [id number] [place] [address] 71745 -8249 Apr, Flank pain R10.9 and Acute pyelonephritis N10 [place] [id number] [place] [address] 25298- 6131 Apr, [place] [address] 26158- 9650 Mar, [place] [address] 17512- 2876 Feb, Pain of right shoulder region M25.511 [place] [address] 76462- 0593 Feb, History of glaucoma Z86.69 ; Vision changes H53.9 ; Abdominal aortic aneurysm (AAA) without rupture I71.4 ; Xerosis of skin L85.3 and Pain in right shoulder M25.511 [place] [id number] [place] [address] 24525- 5839 Feb, [place] [id number] [place] [address] 80251- 3845 Jan, Essential hypertension I10 ; Pure hyperglyceridemia E78.1 ; Chronic kidney disease, unspecified N18.9 ; Gastroesophageal reflux disease without esophagitis K21.9 ; 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 ; Stenosis of right renal artery I70.1 ; Anemia of chronic disease D63.8 ; Prediabetes R73.03 ; Pain of right shoulder region M25.511 and Homeless Z59.0 [place] [id number] [place] [address] 57205- 2468 Jan, Neck pain M54.2 and Seasonal allergic rhinitis, unspecified allergic rhinitis trigger J30.2 [place] [id number] [place] [address] 20274- 6220 Dec, [place] [id number] [place] [address] 80430- 9545 Dec, [place] [id number] [place] [address] 67618- 2264 Dec, Blood glucose abnormal R73.09 ; Essential [...] H. pylori infection A04.8 and Prediabetes R73.03 [facility] [address] [place] [address] 61639 -4658 Oct, Seasonal allergic rhinitis, unspecified allergic rhinitis trigger J30.[address] 82818- 8167 September, Eustachian tube dysfunction, left H69.82 and Candidiasis of breast B37.89 [id number] [place] [address] 94437- 6625 Jul, Blood glucose abnormal R73.09 ; Essential hypertension I10 ; Pure hyperglyceridemia E78.1 ; Chronic kidney disease, unspecified N18.9 ; Gastroesophageal reflux disease without esophagitis K21.9 ; 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 ; Abdominal aortic aneurysm (AAA) without rupture I71.4 ; Stenosis of right renal artery I70.1 ; Anemia of chronic disease D63.8 and Acute non-recurrent maxillary sinusitis J01.00 [id number] [place] [address] 01430- 4973 Jun, Acute non-recurrent maxillary sinusitis J01.00 ; Acute mucoid otitis media of left ear H65.112 ; Nausea R11.0 and Fever and chills R50.9 [address] [id number] [place] [address] 72087- 8948 May, Acute right flank pain R10.[address] 47374- 5554 Apr, Pure hyperglyceridemia E78.1 ; Chronic kidney disease, unspecified N18.9 and Acute nasopharyngitis J00 [place] [id number] [place] [address] 45949- 0420 Apr, [place] [id number] [place] [address] 80700- 4371 Apr, Blood glucose abnormal R73.09 ; Essential hypertension I10 ; Pure hyperglyceridemia E78.1 ; Chronic kidney disease, unspecified N18.9 ; Gastroesophageal reflux disease without esophagitis K21.9 ; 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 ; Abdominal aortic aneurysm (AAA) without rupture I71.4 ; Stenosis of right renal artery I70.1 ; RUQ pain R10.11 and Anemia of chronic disease D63.8 [place] [address] 42903- 1748 Mar, Blood glucose abnormal R73.09 [place] [address] 51223- 7557 Mar, Cellulitis of right lower leg L03.115 [facility] [address] 10354 -0501 Feb, [place] [address] 07945- 9253 Feb, Dysuria R30.0 and Upper respiratory tract infection, unspecified type J06.9 [place] [id number] [place] [address] 63231- 6693 Jan, [place] [address] 97641- 8767 Jan, [place] [address] 14862- 8430 Dec, [place] [address] 37835- 4584 Dec, Anemia of chronic disease D63.8 ; Essential hypertension I10 ; Pure hyperglyceridemia E78.1 ; Chronic kidney disease, unspecified N18.9 ; Gastroesophageal reflux disease without esophagitis K21.9 ; 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 and Pain in right knee M25.561 [place] [id number] [place] [address] 60269- 7125 Dec, Left shoulder strain, subsequent encounter S46.912D ; Urinary frequency R35.0 ; Lung nodule, solitary R91.1 ; Essential hypertension I10 and Acute cystitis without hematuria N30.00 [place] [address] 58995- 6385 Nov, Left-sided chest wall pain R07.89 and Abnormal chest xray R93.[address] 63313- 7950 Nov, Pain of right lower extremity M79.604 ; Swelling of right lower extremity M79.89 ; Diarrhea, unspecified R19.7 ; Nausea with vomiting, unspecified R11.2 ; Left-sided chest wall pain R07.89 ; Chronic kidney disease, unspecified N18.9 ; Gastroesophageal reflux disease without esophagitis K21.9 and Other seasonal allergic rhinitis J30.[address] 28882- 2634 September, Essential hypertension I10 ; Chronic kidney disease, unspecified N18.9 ; Anemia of chronic disease D63.8 ; Pure hyperglyceridemia E78.1 ; Peripheral vascular disease I73.9 ; Abnormal glucose R73.09 ; 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 ; Gastroesophageal reflux disease without esophagitis K21.9 ; Allergic rhinitis J30.9 and Rash R21 [id number] [place] [address] 20466- 4054 Aug, Abdominal pain R10.9 and Constipation K59.00 [id number] [place] [address] 99291- 0015 Jul, Injury of toe on right foot S99.921A [address] 81936- 6332 14 Jul, 2015 [place] [address] 33024- 4642 Jul, Essential hypertension I10 ; Chronic kidney disease, unspecified N18.9 ; Anemia of chronic disease D63.8 ; Pure hyperglyceridemia E78.1 ; Peripheral vascular disease I73.9 ; Abnormal glucose R73.09 ; 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 ; Gastroesophageal reflux disease without esophagitis K21.9 and Allergic rhinitis J30.9 [place] [address] 49961- 2499 Jun, Low back pain M54.[address] 43159- 1503 Jun, [address] 37734- 9121 May, URI (upper respiratory infection) J06.9 [place] [address] 91343- 9980 Apr, Essential hypertension I10 [address] 68771- 6901 10 Apr, 2015 Essential hypertension I10 ; Chronic kidney disease, unspecified N18.9 ; Anemia of chronic disease D63.8 ; Pure hyperglyceridemia E78.1 ; Peripheral vascular disease I73.9 ; Abnormal glucose R73.09 ; URI ( upper respiratory infection) J06.9 ; 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 ; Gastroesophageal reflux disease without esophagitis K21.9 and Cough R05 [place] [id number] [place] [address] 08955- 5669 Mar, Flank pain R10.9 and URI (upper respiratory infection) J06.9 [place] [address] 67504- 3716 Mar, Right-sided low back pain without sciatica M54.5 and Hematuria, unspecified R31.[address] [place] [address]- 1393 Mar, Hypopigmentation L81.9 and Hyperpigmentation L81.9 [place] [id number] [place] [address] 75685- 4535 Mar, [place] [id number] [place] [address] 78039- 2885 Mar, Acute cystitis with hematuria N30.01 [place] [id number] [place] [address] 51408- 4352 Mar, [place] [id number] [place] [address] 41423- 0625 Feb, Furuncle L02.92 ; Hypopigmentation L81.9 ; Hyperpigmentation L81.9 ; Urinary frequency R35.0 ; Screening for malignant neoplasm of cervix Z12.4 ; Vaginal discharge N89.8 ; Urinary, incontinence, stress female N39.3 and Vaginal irritation N89.8 [place] [id number] [place] [address] 19465- 4754 Jan, Muscle spasm 728.85 ; Unspecified peripheral vascular disease 443.9 ; Benign essential hypertension 401.1 ; Chronic renal insufficiency 585.9 ; Chronic constipation 564.00 ; GERD (gastroesophageal reflux disease) 530.81 ; Hyperlipidemia 272.4 and Chronic leg pain 729.5 [place] [id number] [place] [address] 59688- 1074 Jan, Sinusitis 473.9 [place] [id number] [place] [address] 21230- 8171 Dec, [place] [id number] [place] [address] 50346- 3577 Dec, Acute bronchitis 466.0 [place] [id number] [place] [address] 30070- 1635 Dec, Acute bronchitis 466.0 [place] [id number] [place] [address] 12953- 4607 Dec, Unspecified episodic mood disorder 296.90 [facility] [address] [place] [address] 71569- 0711 Dec, Visit for suture removal V58.32 [facility] [id number] [place] [address] 79344- 2536 Nov, Allergic rhinitis 477.9 and Onychomycosis 110.1 [place] [address] 71759- 4752 Oct, Muscle spasm 728.85 ; Benign essential hypertension 401.1 ; Chronic renal insufficiency 585.9 ; Chronic constipation 564.00 ; GERD ( gastroesophageal reflux disease) 530.81 and Hyperlipidemia 272.4 [place] [id number] [place] [address] 15217- 3506 Oct, Otalgia of left ear 388.70 [address] [id number] [place] [address] 08902- 8316 Oct, Unspecified episodic mood disorder 296.90 [place] [id number] [place] [address] 99584- 9065 September, Unspecified episodic mood disorder 296.90 [place] [id number] [place] [address] 60152- 6276 September, Unspecified episodic mood disorder 296.90 [facility] [id number] [place] [address] [id number] September, Urinary frequency 788.41 and Constipation 564.00 [place] [id number] [place] [address] 42957- 4099 Aug, [place] [id number] [place] [address] 52263- 8673 Aug, [facility] [id number] [place] [address] 39374- 5456 Jul, [place] [id number] [place] [address] 93818- 0583 Jul, [facility] [place] [facility] [address] [id number] [place] [address]- 7354 Jul, [facility] [place] [facility] [address] [id number] [place] [address]- 7674 Jul, [facility] [place] [facility] [address] [id number] [place] [address]- 2510 Jul, [facility] [place] [facility] [address] [id number] [place] [address]- 1411 Jul, [facility] [place] [facility] [address] [id number] [place] [address]- 4764 Jul, [facility] [place] [facility] [address] [id number] [place] [address]- 5191 Jul, [facility] [place] [facility] [address] [id number] [place] [address]- 4994 Jul, [facility] [place] [facility] [address] [id number] [place] [address]- 5417 Jul, [facility] [place] [facility] [address] [id number] [place] [address]- 5060 Jun, [facility] [place] [facility] [address] [id number] [place] [address]- 7958 Jun, [facility] [place] [facility] [address] [id number] [place] [address]- 8185 May, [facility] [place] [facility] [id number] [address]- 9621 May, [facility] [place] [facility] [address] [id number] [place] [address]- 6380 May, [facility] [place] [facility] [address] [id number] [place] [address]- 2922 May, [facility] [place] [facility] [address] [id number] [place] [address]- 3859 May, [facility] [place] [facility] [address] [id number] [place] [address]- 1174 May, [facility] [address] [id number] [place] [address]- 6843 May, [facility] [place] [facility] [address] [id number] [place] [address]- 3090 May, [facility] [address] [id number] [place] [address]- 9415 May, [facility] [place] [facility] [address] [id number] [place] [address]- 5391 May, [facility] [place] [facility] [address] [id number] [place] [address]- 5918 May, [facility] [place] [facility] [address] [id number] [place] [address]- 2934 May, [facility] [address] [id number] [place] [address]- 6499 May, [facility] [address] [id number] [place] [address]- 5734 Feb, [facility] [place] [facility] [address] [id number] [place] [address]- 5242 Feb, [facility] [address] [id number] [place] [address]- 6901 20 Jan, 2014 [facility] [place] [facility] [address] [id number] [place] [address]- 8285 20 Jan, 2013 [facility] [place] [facility] [address] [id number] [place] [address]- 9160 18 Jan, 2013 [facility] [place] [facility] [address] [id number] [place] [address]- 8285 18 Jan, 2014 [facility] [place] [facility] [address] [id number] [place] [address]- 3068 12 Jan, 2014 [facility] [place] [facility] [address] [id number] [place] [address]- 0788 12 Jan, 2014 [facility] [place] [facility] [address] [id number] [place] [address]- 3031 12 Jan, 2014 [facility] [place] [facility] [address] [id number] [place] [address]- 4523 Jan, [facility] [place] [facility] [address] [id number] [place] [address]- 7812 Jan, [facility] [place] [facility] [address] [id number] [place] [address]- 8259 Jan, [facility] [place] [facility] [address] [id number] [place] [address]- 2490 Jan, [facility] [place] [facility] [address] [id number] [place] [address]- 2353 Jan, [facility] [place] [facility] [address] [id number] [place] [address]- 0697 Oct, [facility] [place] [facility] [address] [id number] [place] [address]- 9115 Oct, [facility] [place] [facility] [address] [id number] [place] [address]- 0280 Oct, [facility] [place] [facility] [address] [id number] [place] [address]- 0813 Oct, [facility] [place] [facility] [address] [id number] [place] [address]- 1851 Jun, [facility] [place] [facility] [address] [id number] [place] [address]- 4620 Jun, [facility] [place] [facility] [address] [id number] [place] [address]- 2622 Jun, [facility] [place] [facility] [address] [id number] [place] [address]- 4367 Jun, [facility] [place] [facility] [address] [id number] [place] [address]- 6123 Apr, [facility] [place] [facility] [address] [id number] [place] [address]- 8287 Apr, [facility] [address] [id number] [place] [address]- 2883 Feb, [facility] [place] [facility] [address] [id number] [place] [address]- 8633 Feb, [facility] [address] [id number] [place] [address]- 0586 Dec, [facility] [place] [facility] [address] [id number] [place] [address]- 6011 Dec, [facility] [address] [id number] [place] [address]- 1192 Nov, [facility] [address] [id number] [place] [address]- 2878 Nov, [facility] [address] [id number] [place] [address]- 5765 Nov, [facility] [address] [id number] [place] [address]- 4966 Oct, [facility] [address] [id number] [place] [address]- 2216 September, [facility] [address] [id number] [place] [address]- 6333 September, [facility] [place] [facility] [address] [id number] [place] [address]- 3200 Aug, [facility] [place] [facility] [address] [id number] [place] [address]- 8557 Aug, [facility] [place] [facility] [address] [id number] [place] [address]- 2495 Aug, [facility] [place] [facility] [address] [id number] [place] [address]- 5605 Aug, [facility] [place] [facility] [address] [id number] [place] [address]- 1819 Aug, [facility] [place] [facility] [address] [id number] [place] [address]- 8670 Aug, [facility] [address] [id number] [place] [address]- 8681 28 Jul, 2012 [facility] [place] [facility] [address] [id number] [place] [address]- 2127 Jul, [facility] [place] [facility] [address] [id number] [place] [address]- 8250 Jul, [facility] [address] [id number] [place] [address]- 0333 15 Jul, 2012 [facility] [address] [id number] [place] [address]- 0183 Jul, [facility] [address] [id number] [place] [address]- 9916 Jul, [facility] [address] [id number] [place] [address]- 7958 Jun, [facility] [address] [id number] [place] [address]- 3059 Jun, [facility] [address] [id number] [place] [address]- 2519 May, [facility] [address] [id number] [place] [address]- 3362 May, [facility] [address] [id number] [place] [address]- 7783 Apr, [facility] [place] [facility] [address] [id number] [place] [address]- 9314 Apr, [facility] [place] [facility] [address] [id number] [place] [address]- 7334 Apr, [facility] [place] [facility] [address] [id number] [place] [address]- 3004 Apr, [facility] [place] [facility] [address] [id number] [place] [address]- 9451 Apr, [facility] [place] [facility] [address] [id number] [place] [address]- 8345 Mar, [facility] [place] [facility] [address] [id number] [place] [address]- 8706 Mar, [facility] [place] [facility] [address] [id number] [place] [address]- 6966 Mar, [facility] [place] [facility] [address] [id number] [place] [address] Mar, [facility] [place] [facility] [address] [id number] [place] [address] Mar, [facility] [place] [facility] [address] [id number] [place] [address] Mar, [facility] [place] [facility] [address] [id number] [place] [address] Mar, [facility] [place] [facility] [address] [id number] [place] [address] Feb, [facility] [place] [facility] [address] [id number] [place] [address] Feb, [facility] [place] [facility] [address] [id number] [place] [address] Feb, [facility] [place] [facility] [address] [id number] [place] [address] Feb, [facility] [place] [facility] [address] [id number] [place] [address] Dec, [facility] [place] [facility] [address] [id number] [place] [address] Nov, [facility] [place] [facility] [address] [id number] [place] [address] Nov, [facility] [place] [facility] [address] [id number] [place] [address] Oct, [facility] [place] [facility] [address] [id number] [place] [address] 27 Oct, 2011 [facility] [address] [id number] [place] [address] 23 Oct, 2011 [facility] [place] [facility] [address] [id number] [place] [address] 22 Oct, 2011 [facility] [address] [id number] [place] [address] Oct, [facility] [place] [facility] [address] [id number] [place] [address] 17 Oct, 2011 [facility] [address] [id number] [place] [address] 06 Oct, 2011 [facility] [place] [facility] [address] [id number] [place] [address] Aug, [facility] [place] [facility] [address] [id number] [place] [address] Jul, [facility] [address] [id number] [place] [address] Jul, [facility] [place] [facility] [address] [id number] [place] [address] 15 Jul, 2011 [facility] [address] [id number] [place] [address] Jul, [facility] [place] [facility] [address] [id number] [place] [address] Jul, [facility] [place] [facility] [address] [id number] [place] [address] Jul, [facility] [place] [facility] [address] [id number] [place] [address] Jul, [facility] [place] [facility] [address] [id number] [place] [address] 24 Jun, 2011 [facility] [place] [facility] [address] [id number] [place] [address] May, [facility] [place] [facility] [address] [id number] [place] [address] May, [facility] [place] [facility] [address] [id number] [place] [address] May, [facility] [place] [facility] [address] [id number] [place] [address] Apr, [facility] [place] [facility] [address] [id number] [place] [address] Apr, [facility] [place] [facility] [address] [id number] [place] [address] 16 Apr, 2011 [facility] [place] [facility] [address] [id number] [place] [address] Apr, [facility] [place] [facility] [address] [id number] [place] [address] Apr, [facility] [place] [facility] [address] [id number] [place] [address] Apr, [facility] [place] [facility] [address] [id number] [place] [address] Mar, [facility] [place] [facility] [address] [id number] [place] [address] Mar, [facility] [place] [facility] [address] [id number] [place] [address] Mar, [facility] [place] [facility] [address] [id number] [place] [address] Mar, [facility] [place] [facility] [address] [id number] [place] [address] Mar, [facility] [place] [facility] [address] [id number] [place] [address] Mar, [facility] [place] [facility] [address] [id number] [place] [address] [address] Mar, [facility] [place] [facility] [id number] [address] Dec, [facility] [id number] [address] Aug, [facility] [id number] [address] Apr, [facility] [id number] [address] Mar, [facility] [id number] [place] [address] Mar, [facility] [id number] [place] [address] Mar, [facility] [id number] [place] [address] Mar, [facility] [id number] [place] [address] September, [facility] [address] [address] Mar, [facility] [id number] [place] [address] Feb, [facility] [id number] [address] Oct, [facility] [id number], [place] [address] September, [facility] [id number], [place] [address] Apr, [facility] [id number] [address] Mar, IMMUNIZATIONS No Known Immunizations SOCIAL HISTORY Never Assessed REASON FOR VISIT PA for MRI C-spine PLAN OF CARE VITAL SIGNS MEDICATIONS No [...]
--- OUTSIDE RECORDS SUMMARY | 2018-02-08 02:20 | XMS REPORT ---
Author Author PHUC AMIN Organization [employer] Address Unknown Phone Unavailable Care Team Providers Care Leadership Program Intern Name Role Phone PHUC AMIN CP Unavailable Allergies No Known Allergies Problems Problem Type Condition ICD-9 Code Onset Dates Condition Status Problem Lipoma of other specified sites 214.8 Active Problem Other abnormal glucose 790.29 Active Problem Unspecified tachycardia 785.0 Active Problem Chronic kidney disease, unspecified 585.9 Active Problem Other dental caries 521.09 Active Problem Contact dermatitis and other eczema due to solvents 692.2 Active Problem Pure hyperglyceridemia 272.1 Active Problem Other abnormal blood chemistry 790.6 Active Problem Periapical abscess without sinus 522.5 Active Problem Anemia in chronic kidney disease 285.21 Active Problem Cervicalgia 723.1 Active Problem Dysphagia, unspecified 787.20 Active Problem Hyposmolality and/or hyponatremia 276.1 Active Problem Unspecified peripheral vascular disease 443.9 Active Medications Medication Code System Code Instructions Start Date End Date Status Dosage Proventil HFA [facility] [address]-34 90 mcg/actuation 2 puff(s) inhaled 4 times a day May 22, 2014 2 puffs by Inhalation route 4 times per day PRN Advair Diskus [facility] [address]-97 250 mcg-50 mcg 1 puff(s) inhaled 2 times a day Jun 30, 2013 1 puffs by Inhalation route 2 times per day Results No Known Results Summary Purpose eClinicalWorks Submission
--- OUTSIDE RECORDS SUMMARY | 2018-02-08 02:20 | XMS REPORT ---
Author ARIS [facility] e[employer] Address Unknown Phone Unavailable Care Team Providers Care Phonograph Mechanic Name Role Phone ARIS SRINIVASAN Unavailable Allergies, Adverse Reactions, Alerts Substance Reaction [...] Problem Abnormal blood chemistry R79.9 Active Assessment URI (upper respiratory infection) J06.9 Active Assessment Flank pain R10.9 Active Problem Urinary, incontinence, stress female N39.3 Active Medications Medication Code System Code Instructions Start Date End Date Status Dosage Proventil HFA [facility] [address]-40 90 mcg/actuation 2 puff(s) inhaled 4 times a day May 22, 2014 2 puffs by Inhalation route 4 times per day PRN Multivitamin [facility] [address] Orally not defined Lisinopril [facility] [address]-84 20 MG Orally Once a day 1 tablet Simvastatin [facility] [address]-56 10 MG Orally Once a day 1 tablet in the evening Amlodipine Besylate [facility] [address]-20 10 MG Orally Once a day 1 tablet Calcium [facility] 26656-42828 600 MG Orally not defined Advair Diskus [facility] [address]-55 250 mcg-50 mcg 1 puff(s) inhaled 2 times a day Jun 30, 2013 1 puffs by Inhalation route 2 times per day Mucinex [facility] [address]-13 600 MG Orally every 12 hrs Apr 02, 2015 Apr 12, 2015 1 tablet as needed Neurontin [facility] [address]-24 100 mg July 31, 2014 1 capsule by Oral route 3 times per day Toprol XL [facility] [address]-18 100 MG Orally Once a day 2 tablet Omeprazole [facility] [address]-37 40 MG Orally Once a day 1 capsule Vitamin C [facility] [address]-75 500 mg Jun 02, 2014 1 tablet by Oral route 1 time per day Procedures Procedure Coding System Code Date URINALYSIS, AUTO, W/O SCOPE CPT-4 92572 Apr 02, 2015 Office Visit, Est Pt., Level 4 CPT-4 47891 Apr 02, 2015 URINALYSIS, AUTO, W/O SCOPE CPT-4 44217 Apr 02, 2015 Vital Signs Date/Time: Apr 02, 2015 Temperature 98 F Weight 255.1 lbs Height 65 in BMI 42.45 Index Blood Pressure Diastolic 76 mmHg Blood Pressure Systolic 144 mmHg Cardiac Monitoring Heart Rate 76 bpm Results Name Result Date Reference Range Unit Abnormality Flag UA LONG DIP (IN HOUSE) ----MONSERRAT Negative 20150402 ----NIT Negative 20150402 ----SG <=1.005 20150402 ----KET Negative 20150402 ----LYNN Negative 20150402 ----GLU Negative 20150402 ----Odor none 20150402 ----pH 5.0 20150402 ----BLO Trace 20150402 ----URO 0.2 20150402 ----Protein Negative 20150402 ----Lot # [id number] ----Exp date [id number] ----Clarity Clear 20150402 ----Color Light Yellow [id number] Summary Purpose eClinicalWorks Submission
--- OUTSIDE RECORDS SUMMARY | 2018-02-08 02:20 | XMS REPORT ---
Author Author PHUC AMIN [facility] Address [address] [place] [address] Care Team Providers Care Life Enrichment Manager Name Role Phone PHUC AMIN Unavailable PROBLEMS Type Condition ICD9-CM Code MYF63-NO Code Onset Dates Condition Status SNOMED Code Problem Abnormal chest x-ray R93.8 Active 819659785 Problem Hepatic steatosis K76.0 Active 348963055 Problem Abnormal glucose R73.09 Active 520705361 Problem Dysphagia, unspecified R13.10 Active 06759413 Problem Tachycardia, unspecified R00.0 Active 3128235 Problem Pain of right lower extremity M79.604 Active 268311575 Problem Chronic kidney disease, unspecified N18.9 Active 428698659 Problem Left-sided chest wall pain R07.89 Active 690864579 Problem Cervicalgia M54.2 Active 1903711615995 Problem Other seasonal allergic rhinitis J30.2 Active 832673202 Problem Lung nodule, solitary R91.1 Active 527886959 Problem Swelling of right lower extremity M79.89 Active 117737857 Problem H. pylori infection A04.8 Active 447640603 Problem Prediabetes R73.03 Active 898692667 Problem Anemia of chronic disease D63.8 Active 951298634 Problem Pure hyperglyceridemia E78.1 Active 805934721 Problem Periapical abscess without sinus K04.7 Active 632891253 Problem Stenosis of right renal artery I70.1 Active 89244721403664312 Problem Pain in right knee M25.561 Active 68537904 Problem Seasonal allergic rhinitis, unspecified allergic rhinitis trigger J30.2 Active 197226848 Problem Abdominal aortic aneurysm (AAA) without rupture I71.4 Active 87943309 Problem Peripheral vascular disease I73.9 Active 405547542 Problem Gastroesophageal reflux disease without esophagitis K21.9 Active 338065874 Problem Urinary, incontinence, stress female N39.3 Active 92333844 Problem Abnormal blood chemistry R79.9 Active 355425201 Problem Diarrhea, unspecified R19.7 Active 07489391 Problem Nausea with vomiting, unspecified R11.2 Active 9499643 Problem 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 if not improving or reg follow up Reason: VITAL SIGNS Height 65 in 2016-06-08 Weight 271.9 lbs 2016-06-08 Temperature 97.9 degrees Fahrenheit 2016-06-08 Heart Rate 72 bpm 2016-06-08 Respiratory Rate 18 2016-06-08 BMI 45.24 kg/m2 2016-06-08 Blood pressure systolic 140 mmHg 2016-06-08 Blood pressure diastolic 82 mmHg 2016-06-08 MEDICATIONS Medication Instructions Dosage Frequency Start Date End Date Duration Status Fluticasone Propionate 50 MCG/ACT Nasally Once a day 1 spray in each nostril 24h 30 day(s) Active Gabapentin 100 MG Orally 2 times a day 1 tablet 12h Active Multivitamin Active Triamcinolone Acetonide 0.1 % Externally Twice a day 1 application to affected area 12h September, Active Simvastatin 10 mg Orally Once a day 1 tablet in the evening 24h Active Zofran 8 MG Orally every 8 hours, PRN 1 tablet Jun, 03 days Active Amlodipine Besylate 10 mg Orally Once a day 1 tablet 24h Active Calcium 600 MG Active Cyclobenzaprine HCl 10 mg Orally at hs prn 1 tablet Dec, Active Tramadol HCl 50 mg Orally Once a day prn severe pain 1 tablet as needed Jan, Active Omeprazole 40 mg Orally Once a day 1 capsule 24h Active Toprol XL 200 mg Orally Once a day 1 tablet 24h Active Vitamin C 500 mg 1 tablet by Oral route 1 time per day May, Active Symbicort 160-4.5 MCG/ACT Inhalation Twice a day sample today 1 puffs May, Active Lisinopril 20 MG Orally Once a day 1 tablet 24h Active Proventil HFA 90 mcg/actuation 2 puffs by Inhalation route 4 times per day PRN May, Active Augmentin 875-125 MG Orally every 12 hrs 1 tablet 12h Jun,Jun 10 day(s) Active RESULTS Name Result Date Reference Range INFLUENZA A & B (IN HOUSE) 2016-06-08 INFLUENZA A negative INFLUENZA B negative Control + Lot # [id number] Exp date 07/2018 PROCEDURES Procedure Date Ordered Related Diagnosis Body Site Office Visit, Est Pt., Level 3 Jun 08, 2016 INFLUENZA ASSAY W/OPTIC Jun 08, 2016 IMMUNIZATIONS No Known Immunizations
--- OUTSIDE RECORDS SUMMARY | 2018-02-08 02:21 | XMS REPORT ---
Author Author PHUC AMIN Organization [employer] Address Unknown Phone Unavailable Care Team Providers Care Last Puller Name Role Phone PHUC AMIN CP Unavailable [...] female N39.3 Active Problem Cervicalgia M54.2 Active Problem Dysphagia, unspecified R13.10 Active Problem Peripheral vascular disease I73.9 Active Medications Medication Code System Code Instructions Start Date End Date Status Dosage Gabapentin [facility] [address]-51 100 MG Orally Three times a day Jun 08, 2015 1 tablet Results No Known Results Summary Purpose eClinicalWorks Submission
--- OUTSIDE RECORDS SUMMARY | 2018-02-08 02:21 | XMS REPORT ---
Author Author MARGAUX ROSAS [facility] Address [address] [place] [address] Care Team Providers Care Industrial Service Technician Name Role Phone MARGAUX ROSAS Unavailable PROBLEMS Type Condition ICD9-CM Code GUD63-NW Code Onset Dates Condition Status SNOMED Code Problem Abnormal chest x-ray R93.8 Active 288274357 Problem Hepatic steatosis K76.0 Active 484266036 Problem Abnormal glucose R73.09 Active 601035768 Problem Dysphagia, unspecified R13.10 Active 85369060 Problem Tachycardia, unspecified R00.0 Active 0326171 Problem Pain of right lower extremity M79.604 Active 950378900 Problem Chronic kidney disease, unspecified N18.9 Active 311149364 Problem Left-sided chest wall pain R07.89 Active 020665335 Problem Cervicalgia M54.2 Active 5006130585496 Problem Other seasonal allergic rhinitis J30.2 Active 715703287 Problem Lung nodule, solitary R91.1 Active 581445892 Problem Swelling of right lower extremity M79.89 Active 212246807 Problem H. pylori infection A04.8 Active 654130102 Problem Prediabetes R73.03 Active 440566344 Problem Anemia of chronic disease D63.8 Active 676006613 Problem Pure hyperglyceridemia E78.1 Active 430928444 Problem Periapical abscess without sinus K04.7 Active 574401352 Problem Stenosis of right renal artery I70.1 Active 42176888849637628 Problem Pain in right knee M25.561 Active 99965487 Problem Seasonal allergic rhinitis, unspecified allergic rhinitis trigger J30.2 Active 117330710 Problem Abdominal aortic aneurysm (AAA) without rupture I71.4 Active 66221623 Problem Peripheral vascular disease I73.9 Active 770444336 Problem Gastroesophageal reflux disease without esophagitis K21.9 Active 561338640 Problem Urinary, incontinence, stress female N39.3 Active 27019136 Problem Abnormal blood chemistry R79.9 Active 678618705 Problem Diarrhea, unspecified R19.7 Active 51375658 Problem Nausea with vomiting, unspecified R11.2 Active 0996515 Problem 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 440578250 Problem Essential hypertension I10 Active 52851255 ALLERGIES Substance Reaction Event Type Date Status Tekturna Unknown Drug Allergy September, Active Niacin rash Drug Allergy September, Active Macrobid anaphylaxis Drug Allergy September, Active Iodine (IV contrast) Drug Allergy September, Active Ibuprofen (All NSAIDs) Drug Allergy September, Active Bactrim resp distress Drug Allergy September, Active SOCIAL HISTORY Never Assessed PLAN OF CARE Activity Details Follow Up prn Reason: VITAL SIGNS Height 65 in 2016-09-07 Weight 273.3 lbs 2016-09-07 Temperature 98.5 degrees Fahrenheit 2016-09-07 Heart Rate 88 bpm 2016-09-07 Respiratory Rate 20 2016-09-07 BMI 45.47 kg/m2 2016-09-07 Blood pressure systolic 158 mmHg 2016-09-07 Blood pressure diastolic 74 mmHg 2016-09-07 MEDICATIONS Medication Instructions Dosage Frequency Start Date End Date Duration Status Triamcinolone Acetonide 0.1 % Externally Twice a day 1 application to affected area 12h September, Active Vitamin C 500 mg 1 tablet by Oral route 1 time per day May, Active Toprol XL 100 mg Orally Once a day 2 tablets 24h Active Cyclobenzaprine HCl 10 mg Orally at hs prn 1 tablet Dec, Active Fluticasone Propionate 50 MCG/ACT Nasally Once a day 1 spray in each nostril 24h 30 day(s) Active Simvastatin 10 mg Orally Once a day 1 tablet in the evening 24h Active Calcium 600 MG Active Pseudoephedrine HCl 60 mg Orally every 6 hrs 1 tablet as needed 6h September, 4 days Active Neurontin 300 MG Orally at bedtime 1 capsule Jul, Active Multivitamin Active Zofran 8 MG Orally every 8 hours, PRN 1 tablet Jun, 03 days Active Amlodipine Besylate 10 mg Orally Once a day 1 tablet 24h Active Proventil HFA 90 mcg/actuation 2 puffs by Inhalation route 4 times per day PRN May, Active Omeprazole 40 mg Orally Once a day 1 capsule 24h Active Tramadol HCl 50 mg Orally Once a day prn severe pain 1 tablet as needed Jan, Active Loprox 0.77 % Externally Twice a day 1 application to affected area 12h September, September, 0 days Active Lisinopril 20 mg Orally Once a day 1 tablet 24h Active Symbicort 160-4.5 MCG/ACT Inhalation Twice a day sample today 1 puffs May, Active Gabapentin 100 mg Orally 2 times a day 1 capsule 12h Active RESULTS No Results PROCEDURES No Known procedures IMMUNIZATIONS No Known Immunizations MEDICAL (GENERAL) HISTORY Type Description Date Medical History coronary artery disease (sees Sarah) Medical History 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 Medical History hypertension Medical History renal artery stenosis Medical History hyperlipidemia Medical History peripheral vascular disease Medical History Dysphagia, unspecified Medical History Other dental caries Medical History Right Upper Lung Nodule Stable CT 2011 & 2015 Surgical History angioplasty 02/2008 Surgical History abdominal aortic aneurysm repair 02/2008 Surgical History L renal artery stent (Julieth) 03/2011 Surgical History heart cath x2: stents to bilat legs, stomach, and kidneys Surgical History R renal artery stent 2007 Hospitalization History surgeries
--- OUTSIDE RECORDS SUMMARY | 2018-02-08 02:21 | XMS REPORT ---
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 Problem Other seasonal allergic rhinitis J30.2 Active Problem Essential hypertension I10 Active Problem Lung nodule, solitary R91.1 Active Problem Cervicalgia M54.2 Active Problem Pain of right lower extremity M79.604 Active Problem Urinary, incontinence, stress female N39.3 Active Problem Abnormal chest x-ray R93.8 Active Problem Pain in right knee M25.561 Active Problem Nausea with vomiting, unspecified R11.2 [...] Problem Abnormal blood chemistry R79.9 Active Problem Chronic kidney disease, unspecified N18.9 Active Assessment Cellulitis of right lower leg L03.115 Active Problem Pure hyperglyceridemia E78.1 Active Problem Gastroesophageal reflux disease without esophagitis K21.9 Active Medications Medication Code System Code Instructions Start Date End Date Status Dosage Cephalexin [facility] [address]-66 500 MG Orally four times a day Mar 29, 2016 Apr 05, 2016 1 capsule Vitamin C [facility] [address]-78 500 mg Jun 02, 2014 1 tablet by Oral route 1 time per day Toprol XL [facility] [address]-80 200 MG Orally Once a day 1 tablet Cyclobenzaprine HCl [facility] [address]-24 10 mg Orally at hs prn 2015 1 tablet Tramadol HCl [facility] [address]-59 50 mg Orally Once a day prn severe pain Jan 06, 2016 1 tablet as needed Calcium [facility] [address] 600 MG Orally not defined Omeprazole [facility] [address]-64 40 mg Orally Once a day 1 capsule Simvastatin [facility] [address]-05 10 mg Orally Once a day 1 tablet in the evening Lisinopril [facility] [address]-82 20 MG Orally Once a day 1 tablet Triamcinolone Acetonide [facility] [address]-48 0.1 % Externally Twice a day Mar 29, 2016 1 application to affected area Symbicort [facility] [address]-47 160-4.5 MCG/ACT Inhalation Twice a day sample today May 17, 2015 1 puffs Proventil HFA [facility] [address]-30 90 mcg/actuation 2 puff(s) inhaled 4 times a day May 22, 2014 2 puffs by Inhalation route 4 times per day PRN Fluticasone Propionate [facility] [address]-06 50 MCG/ACT Nasally Once a day 1 spray in each nostril Gabapentin [facility] 08683430637 100 MG Orally Three times a day 1 tablet Triamcinolone Acetonide [facility] [address]-49 0.1 % Externally Twice a day September 23, 2015 1 application to affected area Multivitamin [facility] [address] Orally not defined Amlodipine Besylate [facility] [address]-21 10 mg Orally Once a day 1 tablet Procedures Procedure Coding System Code Date COMPREHEN METABOLIC PANEL CPT-4 46418 Mar 29, 2016 Office Visit, Est Pt., Level 3 CPT-4 23917 Mar 29, 2016 COMPLETE CBC W/AUTO DIFF WBC CPT-4 54722 Mar 29, 2016 VENIPUNCT, ROUTINE* CPT-4 02434 Mar 29, 2016 Vital Signs Date/Time: Mar 29, 2016 Cardiac Monitoring Heart Rate 76 bpm Weight 272.1 lbs Height 65 in BMI 45.27 Index Blood Pressure Diastolic 78 mmHg Blood Pressure Systolic 132 mmHg Results Name Result Date Reference Range Unit Abnormality Flag CMP ----Calcium, Serum 9.5 20160329 8.7-10.2 mg/dL ----Carbon Dioxide, Total 18 20160329 18-29 mmol/L ----ALT (SGPT) 28 [id number] 0-32 IU/L ----Creatinine, Serum 1.21 32741801 0.57-1.00 mg/dL H ----AST (SGOT) 24 39053010 0-40 IU/L ----eGFR If NonAfricn Am 51 03424710 >59 mL/min/1.73 L ----Alkaline Phosphatase, S 86 48222130 39-117 IU/L ----eGFR If Africn Am 59 86357680 >59 mL/min/1.73 L ----Bilirubin, Total 0.4 24435797 0.0-1.2 mg/dL ----BUN/Creatinine Ratio 10 20160329 9-23 ----A/G Ratio 1.7 06725207 1.1-2.5 ----Sodium, Serum 137 91306664 136-144 mmol/L ----Globulin, Total 2.7 30897106 1.5-4.5 g/dL ----Potassium, Serum 4.5 99043003 3.5-5.2 mmol/L ----Glucose, Serum 120 02453270 65-99 mg/dL H ----Chloride, Serum 98 36590319 97-106 mmol/L ----Albumin, Serum 4.5 75341615 3.5-5.5 g/dL ----BUN 12 20160329 6-24 mg/dL ----Protein, Total, Serum 7.2 93739509 6.0-8.5 g/dL ROUTINE VENIPUNCTURE CBC ----MCHC 33.2 69639800 31.5-35.7 g/dL ----MCH 30.3 97182848 26.6-33.0 pg ----Platelets 220 22399934 150-379 x10E3/uL ----RDW 14.1 98677294 12.3-15.4 % ----Immature Granulocytes 0 82195974 % ----Immature Grans (Abs) 0.0 75882145 0.0-0.1 x10E3/uL ----Lymphs 27 38375415 % ----Monocytes 6 66483581 % ----Neutrophils 64 77652874 % ----Neutrophils (Absolute) 4.0 68496692 1.4-7.0 x10E3/uL ----Hematocrit 36.5 71943285 34.0-46.6 % ----Lymphs (Absolute) 1.7 30265346 0.7-3.1 x10E3/uL ----MCV 92 35696707 79-97 fL ----RBC 3.99 99731704 3.77-5.28 x10E6/uL ----Eos 3 56637864 % ----Basos 0 63477664 % ----Hemoglobin 12.1 10262142 11.1-15.9 g/dL ----Baso (Absolute) 0.0 23918979 0.0-0.2 x10E3/uL ----WBC 6.3 71484857 3.4-10.8 x10E3/uL ----Monocytes(Absolute) 0.4 57494916 0.1-0.9 x10E3/uL ----Eos (Absolute) 0.2 15927894 0.0-0.4 x10E3/uL Summary Purpose eClinicalWorks Submission
--- OUTSIDE RECORDS SUMMARY | 2018-02-08 02:21 | XMS REPORT ---
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 Problem Gastroesophageal reflux disease without esophagitis K21.9 Active Problem Swelling of right lower extremity M79.89 Active Problem Abnormal chest x-ray R93.8 Active Problem Diarrhea, unspecified R19.7 Active Assessment Left-sided chest wall pain R07.89 Active Assessment Abnormal chest xray R93.8 Active Problem Pain of right lower extremity M79.604 Active Problem Other seasonal allergic rhinitis J30.2 Active Problem Essential hypertension I10 Active Problem Nausea with vomiting, unspecified R11.2 Active Problem Left-sided chest wall pain R07.89 Active Problem Dysphagia, unspecified R13.10 Active Problem Peripheral vascular disease I73.9 Active Problem Urinary, incontinence, stress female N39.3 Active Problem Cervicalgia M54.2 Active Problem Abnormal blood chemistry R79.9 Active Problem Pure hyperglyceridemia E78.1 Active Problem Tachycardia, unspecified R00.0 Active Problem Anemia of chronic disease D63.8 Active Problem Abnormal glucose R73.09 Active Problem Periapical abscess without sinus K04.7 Active Medications No Known Medications Results No Known Results Summary Purpose [employer] Submission
--- OUTSIDE RECORDS SUMMARY | 2018-02-08 02:21 | XMS REPORT ---
Author Author PHUC AMIN [facility] [employer] Address Unknown Phone Unavailable Care Team Providers Care Black Powder Glazing Operator Name Role Phone PHUC AMIN CP Unavailable Allergies, Adverse Reactions, Alerts Substance Reaction Event Type Tekturna Info Not Available Drug Allergy Niacin rash Drug Allergy Macrobid anaphylaxis Drug Allergy Iodine (IV contrast) Drug Allergy Ibuprofen (All NSAIDs) Drug Allergy Bactrim resp distress Drug Allergy Problems Problem Type Condition ICD-9 Code Onset [...] Active Problem Hyposmolality and/or hyponatremia 276.1 Active Assessment Sinusitis 473.9 Active Problem Unspecified peripheral vascular disease 443.9 Active Medications Medication Code System Code Instructions Start Date End Date Status Dosage Proventil HFA [facility] [address]-50 90 mcg/actuation 2 puff(s) inhaled 4 times a day May 22, 2014 2 puffs by Inhalation route 4 times per day PRN Lamisil [facility] [address]-90 250 MG Orally Once a day November 24, 2014 Feb 22, 2015 1 tablet Neurontin [facility] [address]-89 100 mg July 31, 2014 1 capsule by Oral route 3 times per day Toprol XL [facility] [address]-48 200 MG Orally Once a day 1 tablet Nexium [facility] [address]-90 40 mg July 31, 2014 1 capsule by Oral route 1 time per day Omeprazole [facility] [address]-06 40 MG Orally Once a day October 29, 2014 1 capsule Norvasc [facility] [address]-69 10 mg 1 TAB orally once a day July 31, 2014 1 tablet by Oral route 1 time per day Vitamin C [facility] [address]-67 500 mg Jun 02, 2014 1 tablet by Oral route 1 time per day Simvastatin [facility] [address]-27 10 MG Orally Once a day October 29, 2014 1 tablet in the evening Calcium [facility] [address]69 600 MG Orally not defined Azithromycin [facility] [address]-56 250 MG Orally Once a day Jan 19, 2015 Jan 24, 2015 2 tablets on the first day, then 1 tablet daily for 4 days Lisinopril [facility] [address]-61 20 MG Orally Once a day October 29, 2014 1 tablet Multivitamin [facility] [address] Orally not defined Amlodipine Besylate [facility] [address]-85 10 MG Orally Once a day October 29, 2014 1 tablet Procedures Procedure Coding System Code Date Office Visit, Est Pt., Level 3 CPT-4 09992 Jan 19, 2015 Vital Signs Date/Time: Jan 19, 2015 Temperature 98.0 F Weight 251.8 lbs Height 65 in BMI 41.90 Index Blood Pressure Diastolic 60 mmHg Blood Pressure Systolic 120 mmHg Cardiac Monitoring Heart Rate 80 bpm Results No Known Results Summary Purpose [employer] Submission
--- OUTSIDE RECORDS SUMMARY | 2018-02-08 02:22 | XMS REPORT ---
Author Author PHUC AMIN Organization [facility] Address [address] [place] [address] Care Team Providers Care Delivery Department Supervisor Name Role Phone PHUC AMIN Unavailable PROBLEMS Type Condition ICD9-CM Code STE81-QN Code Onset Dates Condition Status SNOMED Code Problem Stenosis of right renal artery I70.1 Active [id number] Problem Seasonal allergic rhinitis, unspecified allergic rhinitis trigger J30.2 Active 922113215 Problem Abdominal aortic aneurysm (AAA) without rupture I71.4 Active 98591235 Problem Mixed hyperlipidemia E78.2 Active 286947001 Problem Other chronic pain G89.29 Active 83519598 Problem PVD (peripheral vascular disease) I73.9 Active 331189360 Problem Prediabetes R73.03 Active 578821899 Problem Arthritis of knee M17.10 Active 747372515 Problem Renal artery stenosis I70.1 Active 829709537 Problem Peripheral vascular disease I73.9 Active 963788291 Problem Dysphagia, unspecified R13.10 Active 78137006 Problem Hepatic steatosis K76.0 Active 259339044 Problem Urinary, incontinence, stress female N39.3 Active 37126369 Problem Anemia of chronic disease D63.8 Active 743247879 Problem 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 267533936 Problem Chronic kidney disease, unspecified N18.9 Active 599486738 Problem Essential hypertension I10 Active 03305310 Problem Cervicalgia M54.2 Active 1378006199887 Problem Gastroesophageal reflux disease without esophagitis K21.9 Active 818091299 ALLERGIES No Information ENCOUNTERS Encounter Location Date Diagnosis [id number] [address] September, Chronic kidney disease, unspecified N18.9 ; Essential hypertension I10 ; Mixed hyperlipidemia E78.2 and BMI 45.0-49.9, adult Z68.42 [place] [address] [place] [id number] [place] [address]- 98[address] September, [place] [address] [address] September, Essential hypertension I10 ; Chronic kidney disease, unspecified N18.9 ; Prediabetes R73.03 ; Low back pain M54.5 ; Other chronic pain G89.29 ; Arthritis of knee M17.10 ; Pure hyperglyceridemia E78.1 ; Anemia of chronic disease D63.8 and BMI 45.0-49.9, adult Z68.42 [place] [address] [address] Aug, [place] [address] [address]- [address] Jul, Abdominal aortic aneurysm (AAA) without rupture I71.4 ; PVD (peripheral vascular disease) I73.9 ; Renal artery stenosis I70.1 and Essential hypertension I10 [place] [address] [address]- [address] May, Essential hypertension I10 ; Pure hyperglyceridemia E78.1 ; Abdominal aortic aneurysm (AAA) without rupture I71.4 ; Chronic kidney disease, unspecified N18.9 ; Gastroesophageal reflux disease without esophagitis K21.9 ; 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 ; Stenosis of right renal artery I70.1 ; Anemia of chronic disease D63.8 and Prediabetes R73.03 [place] [address] [id number] [place] [address] 98926- 6128 May, Tinea corporis B35.4 and Viral URI J06.[address] [address]- [address]67 May, [place] [address] [address]- 32[address] Apr, [place] [address] 92613- 8471 Apr, Cervical radiculopathy M54.12 [facility] [address] [address] Apr, Flank pain R10.9 and Acute pyelonephritis N10 [facility] [address] [address] Apr, [facility] [id number] [place] [address] 07163- 1874 Mar, [facility] [id number] [place] [address] 20991- 3539 Feb, Pain of right shoulder region M25.511 [facility] [id number] [place] [address] 47943- 3832 Feb, History of glaucoma Z86.69 ; Vision changes H53.9 ; Abdominal aortic aneurysm (AAA) without rupture I71.4 ; Xerosis of skin L85.3 and Pain in right shoulder M25.511 [facility] [id number] [place] [address] 81387- 0546 Feb, [facility] [id number] [place] [address] 22364- 3045 Jan, Essential hypertension I10 ; Pure hyperglyceridemia E78.1 ; Chronic kidney disease, unspecified N18.9 ; Gastroesophageal reflux disease without esophagitis K21.9 ; 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 ; Stenosis of right renal artery I70.1 ; Anemia of chronic disease D63.8 ; Prediabetes R73.03 ; Pain of right shoulder region M25.511 and Homeless Z59.0 [place] [id number] [place] [address] 00197- 3888 Jan, Neck pain M54.2 and Seasonal allergic rhinitis, unspecified allergic rhinitis trigger J30.2 [facility] [id number] [place] [address] 93065- 8595 Dec, [facility] [id number] [place] [address] 87938- 5296 Dec, [place] [id number] [place] [address] 80047- 3436 Dec, Blood glucose abnormal R73.09 ; Essential [...] H. pylori infection A04.8 and Prediabetes R73.03 [facility] [id number] [place] [address] 57833 -2550 Oct, Seasonal allergic rhinitis, unspecified allergic rhinitis trigger J30.2 [place] [id number] [place] [address] 51731- 6637 September, Eustachian tube dysfunction, left H69.82 and Candidiasis of breast B37.89 [place] [id number] [place] [address] 44733- 8457 Jul, Blood glucose abnormal R73.09 ; Essential hypertension I10 ; Pure hyperglyceridemia E78.1 ; Chronic kidney disease, unspecified N18.9 ; Gastroesophageal reflux disease without esophagitis K21.9 ; 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 ; Abdominal aortic aneurysm (AAA) without rupture I71.4 ; Stenosis of right renal artery I70.1 ; Anemia of chronic disease D63.8 and Acute non-recurrent maxillary sinusitis J01.00 [place] [id number] [place] [address] 65893- 4304 Jun, Acute non-recurrent maxillary sinusitis J01.00 ; Acute mucoid otitis media of left ear H65.112 ; Nausea R11.0 and Fever and chills R50.9 [place] [id number] [place] [address] 28862- 2831 May, Acute right flank pain R10.[address] 43043- 6927 Apr, Acute nasopharyngitis J00 ; Pure hyperglyceridemia E78.1 and Chronic kidney disease, unspecified N18.9 [place] [id number] [place] [address] 81111- 2147 Apr, [place] [id number] [place] [address] 64994- 9642 Apr, Blood glucose abnormal R73.09 ; Essential hypertension I10 ; Pure hyperglyceridemia E78.1 ; Chronic kidney disease, unspecified N18.9 ; Gastroesophageal reflux disease without esophagitis K21.9 ; 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 ; Abdominal aortic aneurysm (AAA) without rupture I71.4 ; Stenosis of right renal artery I70.1 ; RUQ pain R10.11 and Anemia of chronic disease D63.8 [place] [id number] [place] [address] 48590- 9717 Mar, Blood glucose abnormal R73.09 [place] [address] 41788- 9664 Mar, Cellulitis of right lower leg L03.115 [facility] [id number] [place] [address] 46738 -4752 Feb, [place] [id number] [place] [address] 45172- 1341 Feb, Dysuria R30.0 and Upper respiratory tract infection, unspecified type J06.9 [place] [address] [id number] [place] [address] 89621- 6873 Jan, [place] [address] 18569- 1476 Jan, [place] [address] [place] [id number]- 4883 Dec, [place] [address] [id number] [place] [address] 50610- 6128 Dec, Anemia of chronic disease D63.8 ; Essential hypertension I10 ; Pure hyperglyceridemia E78.1 ; Chronic kidney disease, unspecified N18.9 ; Gastroesophageal reflux disease without esophagitis K21.9 ; 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 and Pain in right knee M25.561 [place] [id number] [place] [address] 94262- 1775 Dec, Left shoulder strain, subsequent encounter S46.912D ; Urinary frequency R35.0 ; Lung nodule, solitary R91.1 ; Essential hypertension I10 and Acute cystitis without hematuria N30.00 [place] [address] 50293- 6747 Nov, Left-sided chest wall pain R07.89 and Abnormal chest xray R93.[address] 80753- 7565 Nov, Pain of right lower extremity M79.604 ; Swelling of right lower extremity M79.89 ; Diarrhea, unspecified R19.7 ; Nausea with vomiting, unspecified R11.2 ; Left-sided chest wall pain R07.89 ; Chronic kidney disease, unspecified N18.9 ; Gastroesophageal reflux disease without esophagitis K21.9 and Other seasonal allergic rhinitis J30.[address] 13925- 6981 September, Essential hypertension I10 ; Chronic kidney disease, unspecified N18.9 ; Anemia of chronic disease D63.8 ; Pure hyperglyceridemia E78.1 ; Peripheral vascular disease I73.9 ; Abnormal glucose R73.09 ; 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 ; Gastroesophageal reflux disease without esophagitis K21.9 ; Allergic rhinitis J30.9 and Rash R21 [place] [address] [id number] [place] [address] 93704- 9370 Aug, Abdominal pain R10.9 and Constipation K59.[address] 61383- 0038 Jul, Injury of toe on right foot S99.921A [place] [address] [address]- [address] 14 Jul, 2015 [place] [address] [address] [id number] [place] [address] 16143- 5525 Jul, Essential hypertension I10 ; Chronic kidney disease, unspecified N18.9 ; Anemia of chronic disease D63.8 ; Pure hyperglyceridemia E78.1 ; Peripheral vascular disease I73.9 ; Abnormal glucose R73.09 ; 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 ; Gastroesophageal reflux disease without esophagitis K21.9 and Allergic rhinitis J30.9 [place] [address] [id number] [place] [address] 14205- 5276 Jun, Low back pain M54.[address] 28577- 8923 Jun, [address] 73279- 3883 May, URI (upper respiratory infection) J06.9 [place] [address] [id number] [place] [address] 30002- 1191 Apr, Essential hypertension I10 [address] 10622- 1121 10 Apr, 2015 Essential hypertension I10 ; Chronic kidney disease, unspecified N18.9 ; Anemia of chronic disease D63.8 ; Pure hyperglyceridemia E78.1 ; Peripheral vascular disease I73.9 ; Abnormal glucose R73.09 ; URI ( upper respiratory infection) J06.9 ; 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 ; Gastroesophageal reflux disease without esophagitis K21.9 and Cough R05 [place] [address] [address] [id number] [place] [address] 10270- 4304 Mar, Flank pain R10.9 and URI (upper respiratory infection) J06.9 [place] [id number] [place] [address] 59915- 5828 Mar, Right-sided low back pain without sciatica M54.5 and Hematuria, unspecified R31.9 [place] [id number] [place] [address] 90401- 6963 Mar, Hypopigmentation L81.9 and Hyperpigmentation L81.9 [place] [address] 20110- 2890 Mar, [place] [address] 07824- 7198 Mar, Acute cystitis with hematuria N30.01 [place] [address] 39843- 2450 Mar, [place] [address] 90112- 5557 Feb, Furuncle L02.92 ; Hypopigmentation L81.9 ; Hyperpigmentation L81.9 ; Urinary frequency R35.0 ; Screening for malignant neoplasm of cervix Z12.4 ; Vaginal discharge N89.8 ; Urinary, incontinence, stress female N39.3 and Vaginal irritation N89.8 [place] [address] [id number] [place] [address] 44822- 6391 Jan, Muscle spasm 728.85 ; Unspecified peripheral vascular disease 443.9 ; Benign essential hypertension 401.1 ; Chronic renal insufficiency 585.9 ; Chronic constipation 564.00 ; GERD (gastroesophageal reflux disease) 530.81 ; Hyperlipidemia 272.4 and Chronic leg pain 729.5 [place] [address] [id number] [place] [address] 05465- 8254 Jan, Sinusitis 473.9 [place] [address] [address] [id number] [place] [address] 75912- 1876 Dec, [place] [address] 62253- 8815 Dec, Acute bronchitis 466.0 [place] [address] [place] [id number] [place] [address] 62008- 7057 Dec, Acute bronchitis 466.0 [place] [address] 85824- 0496 Dec, Unspecified episodic mood disorder 296.90 [facility] [address] [place] [id number] [place] [address] 61696- 9653 Dec, Visit for suture removal V58.32 [facility] [address] [place] [id number] [place] [address] 19160- 0136 Nov, Allergic rhinitis 477.9 and Onychomycosis 110.1 [place] [address] [id number] [place] [address] 32490- 0677 Oct, Muscle spasm 728.85 ; Benign essential hypertension 401.1 ; Chronic renal insufficiency 585.9 ; Chronic constipation 564.00 ; GERD ( gastroesophageal reflux disease) 530.81 and Hyperlipidemia 272.4 [place] [id number] [place] [address] 59091- 9920 Oct, Otalgia of left ear 388.[address] 53286926- 7071 Oct, Unspecified episodic mood disorder 296.90 [place] [address] [id number] [place] [address] 87954- 4943 September, Unspecified episodic mood disorder 296.90 [place] [address] [address] [id number] [place] [address] [id number]- 0464 September, Unspecified episodic mood disorder 296.90 [facility] [id number] [place] [address] [id number] September, Urinary frequency 788.41 and Constipation 564.00 [place] [address] [id number] [place] [address] 87488- 1507 Aug, [place] [address] [place] [id number] [place] [address] [id number]- 7800 Aug, [place] [address] [place] [id number] [place] [address] 52528- 3307 Jul, [place] [address] 96707- 3840 Jul, [facility] [place] [facility] [address] [id number] [place] [address]- 3030 Jul, [facility] [place] [facility] [address] [id number] [place] [address]- 9194 Jul, [facility] [place] [facility] [address] [id number] [place] [address]- 7244 Jul, [facility] [place] [facility] [address] [id number] [place] [address]- 7082 Jul, [facility] [place] [facility] [address] [id number] [place] [address]- 0801 Jul, [facility] [place] [facility] [address] [id number] [place] [address]- 7066 Jul, [facility] [place] [facility] [address] [id number] [place] [address]- 1776 Jul, [facility] [place] [facility] [address] [id number] [place] [address]- 4563 Jul, [facility] [place] [facility] [address] [id number] [place] [address]- 2336 Jun, [facility] [place] [facility] [address] [id number] [place] [address]- 6273 Jun, [facility] [place] [facility] [address] [id number] [place] [address]- 2088 May, [facility] [place] [facility] [address] [id number] [place] [address]- 0663 May, [facility] [place] [facility] [address] [id number] [place] [address]- 2945 May, [facility] [place] [facility] [address] [id number] [place] [address]- 4512 May, [facility] [place] [facility] [address] [id number] [place] [address]- 3596 May, [facility] [place] [facility] [address] [id number] [place] [address]- 2017 May, [facility] [place] [facility] [address] [id number] [place] [address]- 2321 May, [facility] [place] [facility] [address] [id number] [place] [address]- 5610 May, [facility] [place] [facility] [address] [id number] [place] [address]- 4787 May, [facility] [place] [facility] [address] [id number] [place] [address]- 1021 May, [facility] [place] [facility] [address] [id number] [place] [address]- 0878 May, [facility] [place] [facility] [address] [id number] [place] [address]- 3558 May, [facility] [place] [facility] [address] [id number] [place] [address]- 6181 May, [facility] [place] [facility] [address] [id number] [place] [address]- 9129 Feb, [facility] [place] [facility] [address] [id number] [place] [address]- 2472 Feb, [facility] [place] [facility] [address] [id number] [place] [address]- 8260 Jan, [facility] [place] [facility] [address] [id number] [place] [address]- 5570 20 Jan, 2014 [facility] [place] [facility] [address] [id number] [place] [address]- 5592 18 Jan, 2014 [facility] [place] [facility] [address] [id number] [place] [address]- 2830 18 Jan, 2014 [facility] [place] [facility] [address] [id number] [place] [address]- 0065 12 Jan, 2014 [facility] [place] [facility] [address] [id number] [place] [address]- 7482 Jan, [facility] [place] [facility] [address] [id number] [place] [address]- 9734 12 Jan, 2014 [facility] [place] [facility] [address] [id number] [place] [address]- 1929 Jan, [facility] [place] [facility] [address] [id number] [place] [address]- 3375 Jan, [facility] [place] [facility] [address] [id number] [place] [address]- 8172 Jan, [facility] [place] [facility] [address] [id number] [place] [address]- 3508 Jan, [facility] [place] [facility] [address] [id number] [place] [address]- 8397 Jan, [facility] [place] [facility] [address] [id number] [place] [address]- 9314 Oct, [facility] [place] [facility] [address] [id number] [place] [address]- 4535 Oct, [facility] [place] [facility] [address] [id number] [place] [address]- 2693 Oct, [facility] [place] [facility] [address] [id number] [place] [address]- 9725 Oct, [facility] [place] [facility] [address] [id number] [place] [address]- 8851 Jun, [facility] [place] [facility] [address] [id number] [place] [address]- 8009 Jun, [facility] [place] [facility] [address] [id number] [place] [address]- 0039 Jun, [facility] [place] [facility] [address] [id number] [place] [address]- 3646 Jun, [facility] [place] [facility] [address] [id number] [place] [address]- 6975 Apr, [facility] [place] [facility] [address] [id number] [place] [address]- 5976 Apr, [facility] [address] [id number] [place] [address]- 0440 Feb, [facility] [address] [id number] [place] [address]- 3535 Feb, [facility] [address] [id number] [place] [address]- 0474 Dec, [facility] [address] [id number] [place] [address]- 9722 Dec, [facility] [address] [id number] [place] [address]- 2235 Nov, [facility] [address] [id number] [place] [address]- 7513 Nov, [facility] [address] [id number] [place] [address]- 1983 Nov, [facility] [address] [id number] [place] [address]- 1374 Oct, [facility] [address] [id number] [place] [address]- 7989 September, [facility] [address] [id number] [place] [address]- 2493 September, [facility] [address] [id number] [place] [address]- 8943 Aug, [facility] [address] [id number] [place] [address]- 5031 Aug, [facility] [address] [id number] [place] [address]- 8720 Aug, [facility] [address] [id number] [place] [address]- 7083 Aug, [facility] [address] [id number] [place] [address]- 6214 Aug, [facility] [place] [facility] [address] [id number] [place] [address]- 7918 Aug, [facility] [place] [facility] [address] [id number] [place] [address]- 1491 Jul, [facility] [place] [facility] [address] [id number] [place] [address]- 8889 Jul, [facility] [place] [facility] [address] [id number] [place] [address]- 9010 Jul, [facility] [address] [id number] [place] [address]- 8108 15 Jul, 2012 [facility] [place] [facility] [address] [id number] [place] [address]- 5158 Jul, [facility] [address] [id number] [place] [address]- 2299 Jul, [facility] [address] [id number] [place] [address]- 0750 Jun, [facility] [place] [facility] [address] [id number] [place] [address]- 0788 Jun, [facility] [address] [id number] [place] [address]- 0134 May, [facility] [place] [facility] [address] [id number] [place] [address]- 1900 May, [facility] [place] [facility] [address] [id number] [place] [address]- 1926 Apr, [facility] [place] [facility] [address] [id number] [place] [address]- 0999 Apr, [facility] [place] [facility] [address] [id number] [place] [address]- 8506 Apr, [facility] [place] [facility] [address] [id number] [place] [address]- 1764 Apr, [facility] [place] [facility] [address] [id number] [address]- 1100 Apr, [facility] [place] [facility] [address] [id number] [place] [address] Mar, [facility] [place] [facility] [address] [facility] [id number] [place] [address] Mar, [facility] [place] [facility] [id number] [place] [address] Mar, [facility] [place] [facility] [address] [id number] [place] [address] Mar, [facility] [place] [facility] [address] [id number] [place] [address], [place] [address]- [address] Mar, [facility] [place] [facility] [address] [facility] [id number] [place] [address]- [address] Mar, [facility] [place] [facility] [id number] [place] [address], [place] [address]- [address] Mar, [facility] [place] [facility] [address] [facility] [id number] [place] [address]- [address] Feb, [facility] [place] [facility] [address] [id number] [place] [address] Feb, [facility] [place] [facility] [address] [id number] [place] [address] Feb, [facility] [place] [facility] [address] [facility] [id number] [place] [address]- [address] Feb, [facility] [place] [facility] [address] [facility] [id number][place] [address]- [address]207 Dec, [facility] [place] [facility] [address] [facility] [id number] [place] [address]- [address] Nov, [facility] [place] [facility] [address] [facility] [id number] [address] Nov, [facility] [place] [facility] [address] [id number] [place] [address] Oct, [facility] [place] [facility] [address] [id number] [place] [address]- [address] 27 Oct, 2011 [facility] [place] [facility] [address] [id number] [place] [address]- [address] 23 Oct, 2011 [facility] [place] [facility] [address] [id number] [place] [address]- [address] Oct, [facility] [place] [facility] [address] [id number] [place] [address]- [address] Oct, [facility] [place] [facility] [address] [id number] [place] [address]- [address] 17 Oct, 2011 [facility] [place] [facility] [address] [id number] [place] [address]- [address] 06 Oct, 2011 [facility] [place] [facility] [address] [id number] [place] [address]- [address]338 Aug, [facility] [place] [facility] [address] [id number] [place] [address]- [address] Jul, [facility] [place] [facility] [address] [id number] [place] [address]- [address] Jul, [facility] [place] [facility] [address] [id number] [place] [address]- [address]283 Jul, [facility] [place] [facility] [address] [id number] [place] [address]- [address] Jul, [facility] [place] [facility] [address] [id number] [place] [address]- [address] Jul, [facility] [place] [facility] [address] [id number] [place] [address]- [address] Jul, [facility] [place] [facility] [address] [id number] [place] [address]- 6[address] Jul, [facility] [place] [facility] [address] [id number] [place] [address]- [address] Jun, [facility] [place] [facility] [address] [id number] [place] [address] May, [facility] [place] [facility] [address] [id number] [place] [address] May, [facility] [place] [facility] [address] [id number] [place] [address] May, [facility] [place] [facility] [address] [id number] [place] [address] Apr, [facility] [place] [facility] [address] [id number] [place] [address] Apr, [facility] [place] [facility] [address] [id number] [place] [address] 16 Apr, 2011 [facility] [place] [facility] [address] [id number] [place] [address] Apr, [facility] [place] [facility] [address] [id number] [place] [address] Apr, [facility] [place] [facility] [address] [id number] [place] [address] Apr, [facility] [place] [facility] [address] [id number] [place] [address] Mar, [facility] [place] [facility] [address] [id number] [place] [address] Mar, [facility] [place] [facility] [address] [id number][place] [address] Mar, [facility] [place] [facility] [address] [id number] [address] Mar, [facility] [place] [facility] [address] [id number] [place] [address] Mar, [facility] [place] [facility] [address] [id number][place] [address] Mar, [facility] [place] [facility] [address] [id number] [address] Mar, [facility] [place] [facility] [id number] [address] Dec, [facility] [address] [facility] [id number][place] [address] Aug, [facility] [id number] [address] Apr, [facility] [id number] [address] Mar, [facility] [address] [facility] [id number][place] [address] Mar, [facility] [id number] [place] [address] Mar, [facility] [id number] [address] Mar, [facility] [id number] [address] September, [facility] [id number] [address] Mar, [facility] [id number] [address] Feb, [facility] [id number] [address] Oct, [facility] [id number] [address] September, [facility] [address] [id number] [address] Apr, [facility] [address] [id number] [address] Mar, IMMUNIZATIONS No Known Immunizations SOCIAL HISTORY Never Assessed REASON FOR VISIT Requests return call PLAN OF CARE VITAL SIGNS MEDICATIONS Medication Instructions Dosage Frequency Start Date End Date Duration Status Dicyclomine HCl 20 mg Orally Four times a day as needed 1 tablet Apr, May, 30 day(s) Active RESULTS No Results PROCEDURES [...]
--- OUTSIDE RECORDS SUMMARY | 2018-02-08 02:22 | XMS REPORT ---
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
--- OUTSIDE RECORDS SUMMARY | 2018-02-08 02:22 | XMS REPORT ---
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 Name Role Phone PHUC AMIN Unavailable Allergies, Adverse Reactions, Alerts Substance Reaction Event Type [place] Info Not Available Drug Allergy Niacin rash Drug Allergy Macrobid anaphylaxis Drug Allergy Iodine (IV contrast) Drug Allergy Ibuprofen (All NSAIDs) Drug Allergy Bactrim resp distress Drug Allergy Problems Problem Type Condition ICD-9 Code Onset Dates Condition Status Problem Cervicalgia 723.1 Active Problem Unspecified peripheral vascular disease 443.9 Active Problem Dysphagia, unspecified 787.20 Active Problem Periapical abscess without sinus 522.5 Active Problem Anemia in chronic kidney disease 285.21 Active Problem Chronic kidney disease, unspecified 585.9 Active Problem Other abnormal glucose 790.29 Active Problem Unspecified tachycardia 785.0 Active Problem Pure hyperglyceridemia 272.1 Active Problem Other abnormal blood chemistry 790.6 Active Assessment Chronic leg pain 729.5 Active Assessment Hyperlipidemia 272.4 Active Assessment Chronic renal insufficiency 585.9 Active Assessment Benign essential hypertension 401.1 Active Assessment GERD (gastroesophageal reflux disease) 530.81 Active Assessment Unspecified peripheral vascular disease 443.9 Active Assessment Chronic constipation 564.00 Active Assessment Muscle spasm 728.85 Active Medications Medication Code System Code Instructions Start Date End Date Status Dosage Omeprazole [facility] [address]-99 40 MG Orally Once a day 1 capsule Baclofen [facility] [address]-84 10 MG Orally 2 times a day Jan 27, 2015 1/2 tablet with food or milk Toprol XL [facility] [address]-94 100 MG Orally Once a day 2 tablet Neurontin [facility] [address]-03 100 mg July 31, 2014 1 capsule by Oral route 3 times per day Proventil HFA [facility] [address]-89 90 mcg/actuation 2 puff(s) inhaled 4 times a day May 22, 2014 2 puffs by Inhalation route 4 times per day PRN Lamisil [facility] [address]-75 250 MG Orally Once a day November 24, 2014 Feb 22, 2015 1 tablet Lisinopril [facility] [address]-60 20 MG Orally Once a day 1 tablet Multivitamin [facility] [address] Orally not defined Amlodipine Besylate [facility] [address]-06 10 MG Orally Once a day 1 tablet Simvastatin [facility] [address]-04 10 MG Orally Once a day 1 tablet in the evening Vitamin C [facility] [address]-59 500 mg Jun 02, 2014 1 tablet by Oral route 1 time per day Calcium [facility] [address] 600 MG Orally not defined Advair Diskus [facility] [address]-43 250 mcg-50 mcg 1 puff(s) inhaled 2 times a day Jun 30, 2013 1 puffs by Inhalation route 2 times per day Procedures Procedure Coding System Code Date Office Visit, Est Pt., Level 4 CPT-4 58331 Jan 27, 2015 Vital Signs Date/Time: Jan 27, 2015 Temperature 97.2 F Weight 251.3 lbs Height 65 in BMI 41.81 Index Blood Pressure Diastolic 78 mmHg Blood Pressure Systolic 132 mmHg Cardiac Monitoring Heart Rate 72 bpm Results No Known Results Summary Purpose [employer] Submission
--- OUTSIDE RECORDS SUMMARY | 2018-02-08 02:22 | XMS REPORT ---
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 589293496 Problem Essential hypertension I10 Active 98421379 Problem Gastroesophageal reflux disease without esophagitis K21.9 Active 395905447 Problem PVD (peripheral vascular disease) I73.9 Active 106301523 Problem Renal artery stenosis I70.1 Active 727422011 Problem Abdominal aortic aneurysm (AAA) without rupture I71.4 Active 59566759 Problem Stenosis of right renal artery I70.1 Active [id number] Problem Prediabetes R73.03 Active 340467660 Problem Seasonal allergic rhinitis, unspecified allergic rhinitis trigger J30.2 Active 866818213 Problem Hepatic steatosis K76.0 Active 811117646 Problem Peripheral vascular disease I73.9 Active 089677899 Problem Dysphagia, unspecified R13.10 Active 83183735 Problem Anemia of chronic disease D63.8 Active 773463229 Problem Chronic kidney disease, unspecified N18.9 Active 472022093 Problem Urinary, incontinence, stress female N39.3 Active 20420340 Problem Cervicalgia M54.2 Active [id number] ALLERGIES No Information ENCOUNTERS Encounter Location Date Diagnosis [facility] [address] [facility] [id number] [address] Jul, Abdominal aortic aneurysm (AAA) without rupture I71.4 ; PVD (peripheral vascular disease) I73.9 ; Renal artery stenosis I70.1 and Essential hypertension I10 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 ; Stenosis of right renal artery I70.1 ; Anemia of chronic disease D63.8 and Prediabetes R73.03 [place] [id number] [place] [address] 51385- 7840 May, Tinea corporis B35.4 and Viral URI J06.9 [place] [address] 77487- 5625 May, [place] [address] 61471- 2348 Apr, [place] [address] [address]- 9530 Apr, Cervical radiculopathy M54.12 [facility] [address] [address] Apr, Flank pain R10.9 and Acute pyelonephritis N10 [place] [address] 76629- 4435 Apr, [place] [id number] [place] [address] 34437- 8513 Mar, [place] [id number] [place] [address] 56077- 4205 Feb, Pain of right shoulder region M25.511 [place] [address] 69937- 9697 Feb, History of glaucoma Z86.69 ; Vision changes H53.9 ; Abdominal aortic aneurysm (AAA) without rupture I71.4 ; Xerosis of skin L85.3 and Pain in right shoulder M25.511 [place] [id number] [place] [address] 71919- 9510 Feb, [place] [address] 32349- 0330 Jan, Essential hypertension I10 ; Pure hyperglyceridemia E78.1 ; Chronic kidney disease, unspecified N18.9 ; Gastroesophageal reflux disease without esophagitis K21.9 ; 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 pylori infection A04.8 and Prediabetes R73.03 [facility] [id number] [place] [address] 81602 -4769 Oct, Seasonal allergic rhinitis, unspecified allergic rhinitis trigger J30.2 [place] [id number] [place] [address] 12259- 8282 September, Eustachian tube dysfunction, left H69.82 and Candidiasis of breast B37.89 [place] [id number] [place] [address] 10264- 4897 Jul, Blood glucose abnormal R73.09 ; Essential hypertension I10 ; Pure hyperglyceridemia E78.1 ; Chronic kidney disease, unspecified N18.9 ; Gastroesophageal reflux disease without esophagitis K21.9 ; 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 ; Abdominal aortic aneurysm (AAA) without rupture I71.4 ; Stenosis of right renal artery I70.1 ; Anemia of chronic disease D63.8 and Acute non-recurrent maxillary sinusitis J01.00 [place] [id number] [place] [address] 53125- 5466 Jun, Acute non-recurrent maxillary sinusitis J01.00 ; Acute mucoid otitis media of left ear H65.112 ; Nausea R11.0 and Fever and chills R50.9 [place] [address] 25504- 8655 May, Acute right flank pain R10.9 [place] [id number] [place] [address] 32082- 5750 Apr, Acute nasopharyngitis J00 ; Pure hyperglyceridemia E78.1 and Chronic kidney disease, unspecified N18.9 [place] [id number] [place] [address] 15108- 2136 Apr, [address] 38757- 3670 Apr, Blood glucose abnormal R73.09 ; Essential hypertension I10 ; Pure hyperglyceridemia E78.1 ; Chronic kidney disease, unspecified N18.9 ; Gastroesophageal reflux disease without esophagitis K21.9 ; 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 ; Abdominal aortic aneurysm (AAA) without rupture I71.4 ; Stenosis of right renal artery I70.1 ; RUQ pain R10.11 and Anemia of chronic disease D63.8 [place] [id number] [place] [address] 87090- 9267 Mar, Blood glucose abnormal R73.09 [place] [id number] [place] [address] 97784- 0718 Mar, Cellulitis of right lower leg L03.115 [facility] [address] [id number] [address] Feb, [place] [id number] [place] [address] 73976- 1283 Feb, Dysuria R30.0 and Upper respiratory tract infection, unspecified type J06.9 [place] [id number] [place] [address] 45536- 7309 Jan, [place] [id number] [place] [address] 56543- 5083 Jan, [place] [id number] [place] [address] 56707- 4868 Dec, [place] [id number] [place] [address] 83052- 2646 Dec, Anemia of chronic disease D63.8 ; Essential hypertension I10 ; Pure hyperglyceridemia E78.1 ; Chronic kidney disease, unspecified N18.9 ; Gastroesophageal reflux disease without esophagitis K21.9 ; 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 and Pain in right knee M25.561 [place] [id number] [place] [address] 88057- 0840 Dec, Left shoulder strain, subsequent encounter S46.912D ; Urinary frequency R35.0 ; Lung nodule, solitary R91.1 ; Essential hypertension I10 and Acute cystitis without hematuria N30.00 [place] [id number] [place] [address] 91707- 5254 Nov, Left-sided chest wall pain R07.89 and Abnormal chest xray R93.8 [place] [id number] [place] [address] 77676- 1913 Nov, Pain of right lower extremity M79.604 ; Swelling of right lower extremity M79.89 ; Diarrhea, unspecified R19.7 ; Nausea with vomiting, unspecified R11.2 ; Left-sided chest wall pain R07.89 ; Chronic kidney disease, unspecified N18.9 ; Gastroesophageal reflux disease without esophagitis K21.9 and Other seasonal allergic rhinitis J30.2 [place] [id number] [place] [address] 70445- 4821 September, Essential hypertension I10 ; Chronic kidney disease, unspecified N18.9 ; Anemia of chronic disease D63.8 ; Pure hyperglyceridemia E78.1 ; Peripheral vascular disease I73.9 ; Abnormal glucose R73.09 ; 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 ; Gastroesophageal reflux disease without esophagitis K21.9 ; Allergic rhinitis J30.9 and Rash R21 [place] [address] 65117- 2812 Aug, Abdominal pain R10.9 and Constipation K59.[address] 64899- 6848 Jul, Injury of toe on right foot S99.921A [address] 59790- 5304 Jul, [place] [address] 47403- 7769 Jul, Essential hypertension I10 ; Chronic kidney disease, unspecified N18.9 ; Anemia of chronic disease D63.8 ; Pure hyperglyceridemia E78.1 ; Peripheral vascular disease I73.9 ; Abnormal glucose R73.09 ; 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 ; Gastroesophageal reflux disease without esophagitis K21.9 and Allergic rhinitis J30.9 [place] [id number] [place] [address] 19059- 3546 Jun, Low back pain M54.5 [place] [id number] [place] [address] 02349- 3275 Jun, [address] 20365- 6096 May, URI (upper respiratory infection) J06.9 [place] [id number] [place] [address] 20155- 8396 Apr, Essential hypertension I10 [place] [address] [place] [address]- 3634 Apr, Essential hypertension I10 ; Chronic kidney disease, unspecified N18.9 ; Anemia of chronic disease D63.8 ; Pure hyperglyceridemia E78.1 ; Peripheral vascular disease I73.9 ; Abnormal glucose R73.09 ; URI ( upper respiratory infection) J06.9 ; 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 ; Gastroesophageal reflux disease without esophagitis K21.9 and Cough R05 [place] [address] 01027- 6399 Mar, Flank pain R10.9 and URI (upper respiratory infection) J06.9 [place] [address] 47156- 0668 Mar, Right-sided low back pain without sciatica M54.5 and Hematuria, unspecified R31.9 [place] [address] 24781- 2863 Mar, Hypopigmentation L81.9 and Hyperpigmentation L81.9 [place] [address] 25112- 2545 Mar, [place] [address] 77020- 1675 Mar, Acute cystitis with hematuria N30.01 [place] [address] 79992- 5047 Mar, [place] [address] 95610- 5748 Feb, Furuncle L02.92 ; Hypopigmentation L81.9 ; Hyperpigmentation L81.9 ; Urinary frequency R35.0 ; Screening for malignant neoplasm of cervix Z12.4 ; Vaginal discharge N89.8 ; Urinary, incontinence, stress female N39.3 and Vaginal irritation N89.8 [place] [address] 82897- 3185 Jan, Muscle spasm 728.85 ; Unspecified peripheral vascular disease 443.9 ; Benign essential hypertension 401.1 ; Chronic renal insufficiency 585.9 ; Chronic constipation 564.00 ; GERD (gastroesophageal reflux disease) 530.81 ; Hyperlipidemia 272.4 and Chronic leg pain 729.5 [place] [id number] [place] [address] 89234- 8605 Jan, Sinusitis 473.[address] 85027- 0853 Dec, [place] [address] 66462- 7246 Dec, Acute bronchitis 466.[address] 55507- 7084 Dec, Acute bronchitis 466.[address] 10875- 9590 Dec, Unspecified episodic mood disorder 296.[address] 91360- 1910 Dec, Visit for suture removal V58.[address] 54588- 7057 Nov, Allergic rhinitis 477.9 and Onychomycosis 110.1 [place] [id number] [place] [address] 37100- 2868 Oct, Muscle spasm 728.85 ; Benign essential hypertension 401.1 ; Chronic renal insufficiency 585.9 ; Chronic constipation 564.00 ; GERD ( gastroesophageal reflux disease) 530.81 and Hyperlipidemia 272.4 [place] [id number] [place] [address] 99741- 8338 Oct, Otalgia of left ear 388.70 [place] [id number] [place] [address] 38863- 4489 Oct, Unspecified episodic mood disorder 296.[address] 02065- 1017 September, Unspecified episodic mood disorder 296.90 [facility] [address] [address]- 1274 September, Unspecified episodic mood disorder 296.90 [facility] [id number] [id number] September, Urinary frequency 788.[address] [facility] [id number] [place] [address] 63429- 9034 Aug, [facility] [id number] [place] [address] 15030- 4596 Aug, [facility] [id number] [place] [address] 28929- 2370 Jul, [facility] [id number] [place] [address] 707447- 3515 Jul, [facility] [id number] [place] [address] 56118- 1164 Jul, [facility] [address] [address]- 6263 Jul, [facility] [address] 1380 Jul, [facility] [address] 3745 Jul, [facility] [address] [address]- 4677 Jul, [facility] [address] [address]- 5291 Jul, [facility] [address] [address]- 4586 Jul, [facility] [address] [address]- 0366 Jul, [facility] [id number] [place] [address] [place] [address]- 9761 Jun, [facility] [place] [facility] [address] [id number] [place] [address]- 7006 Jun, [facility] [place] [facility] [address] [id number] [place] [address]- 7515 May, [facility] [place] [facility] [address] [id number] [place] [address]- 8417 May, [facility] [place] [facility] [address] [id number] [place] [address]- 6299 May, [facility] [place] [facility] [address] [id number] [place] [address]- 3024 May, [facility] [place] [facility] [address] [id number] [place] [address]- 3247 May, [facility] [place] [facility] [address] [id number] [place] [address]- 8907 May, [facility] [place] [facility] [address] [id number] [place] [address]- 4026 May, [facility] [place] [facility] [address] [id number] [place] [address]- 1160 May, [facility] [place] [facility] [address] [id number] [place] [address]- 7672 May, [facility] [place] [facility] [address] [id number] [place] [address]- 5659 May, [facility] [place] [facility] [address] [id number] [address]- 6056 May, [facility] [place] [facility] [address] [id number] [place] [address]- 3598 May, [facility] [place] [facility] [address] [id number] [place] [address]- 7866 May, [facility] [place] [facility] [address] [id number] [address]- 0478 Feb, [facility] [place] [facility] [address] [id number] [place] [address]- 4435 07 Feb, 2014 [facility] [place] [facility] [address] [id number] [place] [address]- 4898 20 Jan, 2013 [facility] [place] [facility] [address] [id number] [place] [address]- 4798 20 Jan, 2013 [facility] [place] [facility] [address] [id number] [place] [address]- 0356 18 Jan, 2013 [facility] [place] [facility] [address] [id number] [place] [address]- 0708 18 Jan, 2013 [facility] [place] [facility] [address] [id number] [place] [address]- 3441 12 Jan, 2014 [facility] [place] [facility] [address] [id number] [place] [address]- 4099 12 Jan, 2013 [facility] [place] [facility] [address] [id number] [place] [address]- 9495 12 Jan, 2013 [facility] [place] [facility] [address] [id number] [place] [address]- 6247 12 Jan, 2014 [facility] [place] [facility] [address] [id number] [place] [address]- 9515 11 Jan, 2014 [facility] [place] [facility] [address] [id number] [place] [address]- 4225 11 Jan, 2014 [facility] [place] [facility] [address] [id number] [place] [address]- 5195 10 Jan, 2014 [facility] [place] [facility] [address] [id number] [place] [address]- 8768 10 Jan, 2014 [facility] [place] [facility] [address] [id number] [place] [address]- 0549 Oct, [facility] [place] [facility] [address] [id number] [place] [address]- 7728 Oct, [facility] [place] [facility] [address] [id number] [place] [address]- 4416 Oct, [facility] [place] [facility] [address] [id number] [place] [address]- 3171 Oct, [facility] [place] [facility] [address] [id number] [place] [address]- 6596 Jun, [facility] [place] [facility] [address] [id number] [place] [address]- 0200 Jun, [facility] [place] [facility] [address] [id number] [place] [address]- 2075 Jun, [facility] [place] [facility] [address] [id number] [place] [address]- 9493 Jun, [facility] [place] [facility] [address] [id number] [place] 0331 Apr, [facility] [place] [facility] [address] [facility] [id number] [place] [address]- 9137 Apr, [facility] [place] [facility] [address] [id number] [place] [address]- 6434 Feb, [facility] [place] [facility] [address] [facility] [id number] [place] [address]- 9181 Feb, [facility] [place] [facility] [address] [facility] [id number] [place] [address]- 2209 Dec, [facility] [place] [facility] [address] [facility] [id number] [place] [address]- 7803 Dec, [facility] [place] [facility] [address] [id number] [place] [address]- 7998 Nov, [facility] [place] [facility] [address] [id number] [place] [address]- 6127 Nov, [facility] [place] [facility] [address] [id number] [place] [address]- 6818 Nov, [facility] [place] [facility] [address] [facility] [id number] [place] [address]- 5507 Oct, [facility] [place] [facility] [address] [id number] [place] [address]- 3311 September, [facility] [address] [id number] [place] [address]- 6525 September, [facility] [place] [facility] [address] [id number] [place] [address]- 8896 Aug, [facility] [address] [id number] [place] [address]- 1520 Aug, [facility] [address] [id number] [place] [address]- 1610 Aug, [facility] [address] [id number] [place] [address]- 5306 Aug, [facility] [address] [id number] [place] [address]- 7776 Aug, [facility] [address] [id number] [place] [address]- 9940 Aug, [facility] [address] [id number] [place] [address]- 9377 Jul, [facility] [address] [id number] [place] [address]- 0892 Jul, [facility] [address] [id number] [place] [address]- 2019 Jul, [facility] [address] [id number] [place] [address]- 1376 15 Jul, 2012 [facility] [address] [id number] [place] [address]- 4137 Jul, [facility] [place] [facility] [address] [id number] [place] [address]- 7255 Jul, [facility] [place] [facility] [address] [id number] [place] [address]- 2546 Jun, [facility] [place] [facility] [address] [id number] [place] [address]- 5896 Jun, [facility] [place] [facility] [address] [id number] [place] [address]- 4214 May, [facility] [place] [facility] [address] [id number] [place] [address]- 6517 May, [facility] [place] [facility] [address] [facility] [id number] [place] [address]- 9941 Apr, [facility] [place] [facility] [address] [id number] [place] [address]- 2136 Apr, [facility] [place] [facility] [address] [id number] [place] [address]- 6692 Apr, [facility] [place] [facility] [address] [id number] [place] [address]- 7393 Apr, [facility] [place] [facility] [address] [facility] [id number] [place] [address]- 3928 Apr, [facility] [place] [facility] [address] [id number] [address]- 0509 Mar, [facility] [place] [facility] [address] [id number] [place] [address]- 2661 Mar, [facility] [place] [facility] [address] [facility] [id number] [place] [address]- 5948 Mar, [facility] [place] [facility] [address] [id number] [address]- 9241 Mar, [facility] [place] [facility] [address] [id number] [address]- 9001 Mar, [facility] [place] [facility] [address] [id number] [place] [address]- 6696 Mar, [facility] [place] [facility] [address] [facility] [id number][place] [address] Mar, [facility] [place] [facility] [address] [facility] [id number] [place] [address] Feb, [facility] [place] [facility] [address] [id number] [place] [address] Feb, [facility] [place] [facility] [address] [id number] [place] [address] Feb, [facility] [place] [facility] [address] [id number] [place] [address] Feb, [facility] [place] [facility] [address] [id number] [place] [address] Dec, [facility] [place] [facility] [address] [id number] [place] [address] Nov, [facility] [place] [facility] [address] [id number] [place] [address] Nov, [facility] [place] [facility] [address] [id number] [place] [address] Oct, [facility] [place] [facility] [address] [id number] [place] [address] Oct, [facility] [place] [facility] [address] [id number] [place] [address] Oct, [facility] [place] [facility] [address] [id number] [place] [address] Oct, [facility] [place] [facility] [address] [id number] [place] [address] Oct, [facility] [place] [facility] [address] [id number] [place] [address]- [address] Oct, [facility] [place] [facility] [address] [id number] [place] [address]- [address] Oct, [facility] [place] [facility] [address] [id number] [place] [address] Aug, [facility] [place] [facility] [address] [id number] [place] [address] Jul, [facility] [place] [facility] [address] [id number] [place] [address] Jul, [facility] [place] [facility] [address] [id number] [place] [address] 15 Jul, 2011 [facility] [address] [id number] [place] [address] Jul, [facility] [address] [id number] [place] [address] Jul, [facility] [address] [id number] [place] [address]- [address] Jul, [facility] [address] [id number] [place] [address] Jul, [facility] [address] [id number] [place] [address] Jun, [facility] [address] [id number] [place] [address] May, [facility] [address] [id number] [place] [address] May, [facility] [address] [id number] [place] [address] May, [facility] [address] [id number] [place] [address] Apr, [facility] [address] [id number] [place] [address] Apr, [facility] [facility] [address] [id number] [place] [address] [address], [address] [facility] [place] [facility] [address] [id number] [place] [address] 15 Apr, 2011 [facility] [place] [facility] [address] [id number] [place] [address] Apr, [facility] [place] [facility] [address] [id number] [place] [address] 05 Apr, 2011 [facility] [address] [id number] [address] Mar, [facility] [place] [facility] [address] [id number] [place] [address] Mar, [facility] [place] [facility] [address] [id number] [place] [address] 2017 Mar, [facility] [place] [facility] [address] [id number] [place] [address] Mar, [facility] [place] [facility] [address] [id number] [place] [address] Mar, [facility] [place] [facility] [address] [id number] [place] [address] Mar, [facility] [place] [facility] [address] [id number] [place] [address] Mar, [facility] [place] [facility] [address] [id number] [place] [address] Dec, [facility] [place] [facility] [address] [id number] [place] [address] Aug, [facility] [place] [facility] [address] [id number] [place] [address] Apr, [facility] [place] [facility] [address] [id number] [place] [address] Mar, [facility] [place] [facility] [address] [id number] [address] Mar, [facility] [place] [facility] [address] [id number] [place] [address] Mar, [facility] [place] [facility] [address] [id number] [place] [address] Mar, [facility] [place] [facility] [address] [id number] [place] [address] September, [facility] [place] [facility] [address] [id number] [place] [address] Mar, [facility] [place] [facility] [address] [id number] [place] [address] Feb, [facility] [address] [facility] [id number] [address] Oct, [facility] [address] [id number] [address] September, [facility] [address] [facility] [id number] [address] Apr, [facility] [address] [facility] [id number] [address] Mar, IMMUNIZATIONS No Known Immunizations SOCIAL HISTORY Never Assessed REASON FOR VISIT DM ed no-show PLAN OF CARE VITAL SIGNS MEDICATIONS No [...]
--- OUTSIDE RECORDS SUMMARY | 2018-02-08 02:23 | XMS REPORT ---
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 Name Role Phone MANNY MURRAY Unavailable PROBLEMS Type Condition ICD9-CM Code [id number] Code Onset Dates Condition Status SNOMED Code Problem Stenosis of right renal artery I70.1 Active [id number] Problem Seasonal allergic rhinitis, unspecified allergic rhinitis trigger J30.2 Active 339456683 Problem Abdominal aortic aneurysm (AAA) without rupture I71.4 Active 85894769 Problem Mixed hyperlipidemia E78.2 Active 303871590 Problem Other chronic pain G89.29 Active 15767834 Problem PVD (peripheral vascular disease) I73.9 Active 476546661 Problem Prediabetes R73.03 Active 000245142 Problem Arthritis of knee M17.10 Active 498279123 Problem Renal artery stenosis I70.1 Active 361079743 Problem Peripheral vascular disease I73.9 Active 733992825 Problem Dysphagia, unspecified R13.10 Active 86138186 Problem Hepatic steatosis K76.0 Active 705279842 Problem Urinary, incontinence, stress female N39.3 Active 49346285 Problem Anemia of chronic disease D63.8 Active 602040904 Problem 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 297613358 Problem Chronic kidney disease, unspecified N18.9 Active 929814104 Problem Essential hypertension I10 Active 25043581 Problem Cervicalgia M54.2 Active [id number] Problem Gastroesophageal reflux disease without esophagitis K21.9 Active [id number] ALLERGIES No Information ENCOUNTERS Encounter Location Date Diagnosis [facility], [place] [id number] [place] [address] September, Chronic kidney disease, unspecified N18.9 ; Essential hypertension I10 ; Mixed hyperlipidemia E78.2 and BMI 45.0-49.9, adult Z68.42 [facility] [place] [id number] [place] [address] 70300- 9266 September, [place] [id number] [place] [address] 48958- 6942 September, Essential hypertension I10 ; Chronic kidney disease, unspecified N18.9 ; Prediabetes R73.03 ; Low back pain M54.5 ; Other chronic pain G89.29 ; Arthritis of knee M17.10 ; Pure hyperglyceridemia E78.1 ; Anemia of chronic disease D63.8 and BMI 45.0-49.9, adult Z68.42 [place] [address] [address]253- 2294 Aug, [place] [address] 80284- 1623 Jul, Abdominal aortic aneurysm (AAA) without rupture I71.4 ; PVD (peripheral vascular disease) I73.9 ; Renal artery stenosis I70.1 and Essential hypertension I10 [place] [id number] [place] [address] 81190- 3789 May, Essential hypertension I10 ; Pure hyperglyceridemia E78.1 ; Abdominal aortic aneurysm (AAA) without rupture I71.4 ; Chronic kidney disease, unspecified N18.9 ; Gastroesophageal reflux disease without esophagitis K21.9 ; 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 ; Stenosis of right renal artery I70.1 ; Anemia of chronic disease D63.8 and Prediabetes R73.03 [place] [id number] [place] [address] 98308- 6870 May, Tinea corporis B35.4 and Viral URI J06.9 [place] [id number] [place] [address] 79693- 7365 May, [place] [address] 96010- 5593 Apr, [place] [id number] [place] [address] 32270- 5225 Apr, Cervical radiculopathy M54.12 [facility] [id number] [place] [address] 08617 -1050 Apr, Flank pain R10.9 and Acute pyelonephritis N10 [place] [id number] [place] [address] 64092- 8909 Apr, [place] [address] 64347- 3084 Mar, [place] [address] 22696- 2661 Feb, Pain of right shoulder region M25.511 [address] [address] 74769- 9378 Feb, History of glaucoma Z86.69 ; Vision changes H53.9 ; Abdominal aortic aneurysm (AAA) without rupture I71.4 ; Xerosis of skin L85.3 and Pain in right shoulder M25.511 [place] [id number] [place] [address] 11069- 1550 Feb, [place] [id number] [place] [address] 74235- 2644 Jan, Essential hypertension I10 ; Pure hyperglyceridemia E78.1 ; Chronic kidney disease, unspecified N18.9 ; Gastroesophageal reflux disease without esophagitis K21.9 ; 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 ; Stenosis of right renal artery I70.1 ; Anemia of chronic disease D63.8 ; Prediabetes R73.03 ; Pain of right shoulder region M25.511 and Homeless Z59.0 [place] [id number] [place] [address] 40410- 5001 Jan, Neck pain M54.2 and Seasonal allergic rhinitis, unspecified allergic rhinitis trigger J30.2 [place] [id number] [place] [address] 16982- 8353 Dec, [place] [id number] [place] [address] 33980- 9705 Dec, [place] [id number] [place] [address] 50063- 3756 Dec, Blood glucose abnormal R73.09 ; Essential [...] A04.8 and Prediabetes R73.03 [facility] [address] [place] [address] 42771 -3018 Oct, Seasonal allergic rhinitis, unspecified allergic rhinitis trigger J30.[address] 43694- 1885 September, Eustachian tube dysfunction, left H69.82 and Candidiasis of breast B37.89 [id number] [place] [address] 01476- 0316 Jul, Blood glucose abnormal R73.09 ; Essential hypertension I10 ; Pure hyperglyceridemia E78.1 ; Chronic kidney disease, unspecified N18.9 ; Gastroesophageal reflux disease without esophagitis K21.9 ; 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 ; Abdominal aortic aneurysm (AAA) without rupture I71.4 ; Stenosis of right renal artery I70.1 ; Anemia of chronic disease D63.8 and Acute non-recurrent maxillary sinusitis J01.00 [id number] [place] [address] 32989- 4527 Jun, Acute non-recurrent maxillary sinusitis J01.00 ; Acute mucoid otitis media of left ear H65.112 ; Nausea R11.0 and Fever and chills R50.9 [id number] [place] [address] 72483- 4618 May, Acute right flank pain R10.[address] 11194- 4149 Apr, Acute nasopharyngitis J00 ; Pure hyperglyceridemia E78.1 and Chronic kidney disease, unspecified N18.9 [place] [place] [id number] [place] [address] 94622- 7543 Apr, [place] [address] 14913- 9745 Apr, Blood glucose abnormal R73.09 ; Essential hypertension I10 ; Pure hyperglyceridemia E78.1 ; Chronic kidney disease, unspecified N18.9 ; Gastroesophageal reflux disease without esophagitis K21.9 ; 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 ; Abdominal aortic aneurysm (AAA) without rupture I71.4 ; Stenosis of right renal artery I70.1 ; RUQ pain R10.11 and Anemia of chronic disease D63.8 [place] [address] 03769- 2332 Mar, Blood glucose abnormal R73.09 [place] [address] 50811- 5462 Mar, Cellulitis of right lower leg L03.115 [facility] [address] 66804 -1813 Feb, [place] [address] 77086- 5106 Feb, Dysuria R30.0 and Upper respiratory tract infection, unspecified type J06.9 [place] [address] 12486- 7032 Jan, [place] [address] 14326- 9505 Jan, [place] [address] 77906- 2225 Dec, [place] [address] 53555- 1021 Dec, Anemia of chronic disease D63.8 ; Essential hypertension I10 ; Pure hyperglyceridemia E78.1 ; Chronic kidney disease, unspecified N18.9 ; Gastroesophageal reflux disease without esophagitis K21.9 ; 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 and Pain in right knee M25.561 [place] [id number] [place] [address] 73456- 7398 Dec, Left shoulder strain, subsequent encounter S46.912D ; Urinary frequency R35.0 ; Lung nodule, solitary R91.1 ; Essential hypertension I10 and Acute cystitis without hematuria N30.00 [place] [address] 78522- 9028 Nov, Left-sided chest wall pain R07.89 and Abnormal chest xray R93.[address] 34532- 9257 Nov, Pain of right lower extremity M79.604 ; Swelling of right lower extremity M79.89 ; Diarrhea, unspecified R19.7 ; Nausea with vomiting, unspecified R11.2 ; Left-sided chest wall pain R07.89 ; Chronic kidney disease, unspecified N18.9 ; Gastroesophageal reflux disease without esophagitis K21.9 and Other seasonal allergic rhinitis J30.[address] 75704- 4114 September, Essential hypertension I10 ; Chronic kidney disease, unspecified N18.9 ; Anemia of chronic disease D63.8 ; Pure hyperglyceridemia E78.1 ; Peripheral vascular disease I73.9 ; Abnormal glucose R73.09 ; 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 ; Gastroesophageal reflux disease without esophagitis K21.9 ; Allergic rhinitis J30.9 and Rash R21 [id number] [place] [address] 53016- 4821 Aug, Abdominal pain R10.9 and Constipation K59.00 [id number] [place] [address] 24363- 3692 Jul, Injury of toe on right foot S99.921A [address] 60741- 9425 14 Jul, 2015 [place] [address] 20853- 6838 Jul, Essential hypertension I10 ; Chronic kidney disease, unspecified N18.9 ; Anemia of chronic disease D63.8 ; Pure hyperglyceridemia E78.1 ; Peripheral vascular disease I73.9 ; Abnormal glucose R73.09 ; 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 ; Gastroesophageal reflux disease without esophagitis K21.9 and Allergic rhinitis J30.9 [place] [address] 38009- 9805 Jun, Low back pain M54.[address] 55894- 0517 Jun, [address] 90721- 1631 May, URI (upper respiratory infection) J06.9 [place] [address] 69257- 1964 Apr, Essential hypertension I10 [address] 38251- 4339 10 Apr, 2015 Essential hypertension I10 ; Chronic kidney disease, unspecified N18.9 ; Anemia of chronic disease D63.8 ; Pure hyperglyceridemia E78.1 ; Peripheral vascular disease I73.9 ; Abnormal glucose R73.09 ; URI ( upper respiratory infection) J06.9 ; 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 ; Gastroesophageal reflux disease without esophagitis K21.9 and Cough R05 [place] [id number] [place] [address] 74344- 6703 Mar, Flank pain R10.9 and URI (upper respiratory infection) J06.9 [place] [address] 33626- 1548 Mar, Right-sided low back pain without sciatica M54.5 and Hematuria, unspecified R31.[address] [place] [address]- 6219 Mar, Hypopigmentation L81.9 and Hyperpigmentation L81.9 [place] [id number] [place] [address] 90364- 0610 Mar, [place] [id number] [place] [address] 25011- 5698 Mar, Acute cystitis with hematuria N30.01 [place] [id number] [place] [address] 21515- 8380 Mar, [place] [id number] [place] [address] 18594- 7812 Feb, Furuncle L02.92 ; Hypopigmentation L81.9 ; Hyperpigmentation L81.9 ; Urinary frequency R35.0 ; Screening for malignant neoplasm of cervix Z12.4 ; Vaginal discharge N89.8 ; Urinary, incontinence, stress female N39.3 and Vaginal irritation N89.8 [place] [id number] [place] [address] 28727- 7825 Jan, Muscle spasm 728.85 ; Unspecified peripheral vascular disease 443.9 ; Benign essential hypertension 401.1 ; Chronic renal insufficiency 585.9 ; Chronic constipation 564.00 ; GERD (gastroesophageal reflux disease) 530.81 ; Hyperlipidemia 272.4 and Chronic leg pain 729.5 [place] [id number] [place] [address] 02117- 7950 Jan, Sinusitis 473.9 [place] [id number] [place] [address] 96378- 4588 Dec, [place] [id number] [place] [address] 49683- 9016 Dec, Acute bronchitis 466.0 [place] [id number] [place] [address] 00489- 6523 Dec, Acute bronchitis 466.0 [place] [id number] [place] [address] 11665- 6781 Dec, Unspecified episodic mood disorder 296.90 [facility] [place] [address] [place] [address] 53094- 4110 Dec, Visit for suture removal V58.32 [facility] [place] [id number] [place] [address] 40188- 0816 Nov, Allergic rhinitis 477.9 and Onychomycosis 110.1 [place] [address] 79503- 3777 Oct, Muscle spasm 728.85 ; Benign essential hypertension 401.1 ; Chronic renal insufficiency 585.9 ; Chronic constipation 564.00 ; GERD ( gastroesophageal reflux disease) 530.81 and Hyperlipidemia 272.4 [place] [id number] [place] [address] 78771- 5946 Oct, Otalgia of left ear 388.70 [id number] [place] [address] 56904- 8246 Oct, Unspecified episodic mood disorder 296.90 [place] [id number] [place] [address] 99244- 5592 September, Unspecified episodic mood disorder 296.90 [place] [id number] [place] [address] 47274- 0316 September, Unspecified episodic mood disorder 296.90 [facility] [id number] [place] [address] [id number] September, Urinary frequency 788.41 and Constipation 564.00 [place] [id number] [place] [address] 84719- 5605 Aug, [place] [id number] [place] [address] 99910- 8507 Aug, [facility] [place] [id number] [place] [address] 90337- 9466 Jul, [place] [id number] [place] [address] 79278- 0187 Jul, [facility] [place] [facility] [address] [id number] [place] [address]- 5247 Jul, [facility] [place] [facility] [address] [id number] [place] [address]- 0597 Jul, [facility] [place] [facility] [address] [id number] [place] [address]- 2209 Jul, [facility] [place] [facility] [address] [id number] [place] [address]- 6402 Jul, [facility] [place] [facility] [address] [id number] [place] [address]- 8738 Jul, [facility] [place] [facility] [address] [id number] [place] [address]- 2529 Jul, [facility] [place] [facility] [address] [id number] [place] [address]- 4276 Jul, [facility] [place] [facility] [address] [id number] [place] [address]- 4571 Jul, [facility] [place] [facility] [address] [id number] [place] [address]- 1915 Jun, [facility] [place] [facility] [address] [id number] [place] [address]- 7605 Jun, [facility] [place] [facility] [address] [id number] [place] [address]- 1452 May, [facility] [place] [facility] [address] [id number], [place] [address]- 5627 May, [facility] [place] [facility] [address] [id number] [place] [address]- 2060 May, [facility] [place] [facility] [address] [id number] [place] [address]- 1511 May, [facility] [place] [facility] [address] [id number] [place] [address]- 4370 May, [facility] [place] [facility] [address] [id number] [place] [address]- 1363 May, [facility] [address] [id number] [place] [address]- 9263 May, [facility] [place] [facility] [address] [id number] [place] [address]- 8145 May, [facility] [address] [id number] [place] [address]- 5142 May, [facility] [place] [facility] [address] [id number] [place] [address]- 7782 May, [facility] [place] [facility] [address] [id number] [place] [address]- 3894 May, [facility] [place] [facility] [address] [id number] [place] [address]- 1111 May, [facility] [address] [id number] [place] [address]- 8146 May, [facility] [address] [id number] [place] [address]- 9128 Feb, [facility] [place] [facility] [address] [id number] [place] [address]- 8713 Feb, [facility] [address] [id number] [place] [address]- 2213 20 Jan, 2014 [facility] [place] [facility] [address] [id number] [place] [address]- 7586 20 Jan, 2013 [facility] [place] [facility] [address] [id number] [place] [address]- 8955 18 Jan, 2013 [facility] [place] [facility] [address] [id number] [place] [address]- 8927 18 Jan, 2014 [facility] [place] [facility] [address] [id number] [place] [address]- 3934 12 Jan, 2014 [facility] [place] [facility] [address] [id number] [place] [address]- 8465 12 Jan, 2014 [facility] [place] [facility] [address] [id number] [place] [address]- 5026 12 Jan, 2014 [facility] [place] [facility] [address] [id number] [place] [address]- 4886 Jan, [facility] [place] [facility] [address] [id number] [place] [address]- 3468 Jan, [facility] [place] [facility] [address] [id number] [place] [address]- 9978 Jan, [facility] [place] [facility] [address] [id number] [place] [address]- 2530 Jan, [facility] [place] [facility] [address] [id number] [place] [address]- 5046 Jan, [facility] [place] [facility] [address] [id number] [place] [address]- 6409 Oct, [facility] [place] [facility] [address] [id number] [place] [address]- 4407 Oct, [facility] [place] [facility] [address] [id number] [place] [address]- 1538 Oct, [facility] [place] [facility] [address] [id number] [place] [address]- 9095 Oct, [facility] [place] [facility] [address] [id number] [place] [address]- 7261 Jun, [facility] [place] [facility] [address] [id number] [place] [address]- 1545 Jun, [facility] [place] [facility] [address] [id number] [place] [address]- 1876 Jun, [facility] [place] [facility] [address] [id number] [place] [address]- 7202 Jun, [facility] [place] [facility] [address] [id number] [place] [address]- 4647 Apr, [facility] [place] [facility] [address] [id number] [place] [address]- 6065 Apr, [facility] [address] [id number] [place] [address]- 3047 Feb, [facility] [place] [facility] [address] [id number] [place] [address]- 2352 Feb, [facility] [address] [id number] [place] [address]- 7235 Dec, [facility] [place] [facility] [address] [id number] [place] [address]- 6319 Dec, [facility] [address] [id number] [place] [address]- 0591 Nov, [facility] [address] [id number] [place] [address]- 9053 Nov, [facility] [address] [id number] [place] [address]- 0231 Nov, [facility] [address] [id number] [place] [address]- 6610 Oct, [facility] [address] [id number] [place] [address]- 7692 September, [facility] [address] [id number] [place] [address]- 4453 September, [facility] [place] [facility] [address] [id number] [place] [address]- 6570 Aug, [facility] [place] [facility] [address] [id number] [place] [address]- 0349 Aug, [facility] [place] [facility] [address] [id number] [place] [address]- 4348 Aug, [facility] [place] [facility] [address] [id number] [place] [address]- 7152 Aug, [facility] [place] [facility] [address] [id number] [place] [address]- 9491 Aug, [facility] [place] [facility] [address] [id number] [place] [address]- 8052 Aug, [facility] [address] [id number] [place] [address]- 5490 28 Jul, 2012 [facility] [place] [facility] [address] [id number] [place] [address]- 6508 Jul, [facility] [place] [facility] [address] [id number] [place] [address]- 1676 Jul, [facility] [address] [id number] [place] [address]- 9939 15 Jul, 2012 [facility] [address] [id number] [place] [address]- 7506 Jul, [facility] [address] [id number] [place] [address]- 5400 Jul, [facility] [address] [id number] [place] [address]- 3821 Jun, [facility] [address] [id number] [place] [address]- 5887 Jun, [facility] [address] [id number] [place] [address]- 3400 May, [facility] [address] [id number] [place] [address]- 9539 May, [facility] [address] [id number] [place] [address]- 5146 Apr, [facility] [place] [facility] [address] [id number] [place] [address]- 5224 Apr, [facility] [place] [facility] [address] [id number] [place] [address]- 3984 Apr, [facility] [place] [facility] [address] [id number] [place] [address] Apr, [facility] [place] [facility] [address] [id number] [place] [address] Apr, [facility] [place] [facility] [address] [id number] [place] [address] Mar, [facility] [place] [facility] [address] [id number] [place] [address] Mar, [facility] [place] [facility] [address] [id number] [place] [address] Mar, [facility] [place] [address] [id number] [place] [address] Mar, [facility] [place] [facility] [address] [id number] [place] [address] Mar, [facility] [place] [facility] [address] [id number] [place] [address] Mar, [facility] [place] [facility] [address] [id number] [place] [address] Mar, [facility] [place] [facility] [address] [id number] [place] [address] Feb, [facility] [place] [facility] [address] [id number] [place] [address] Feb, [facility] [place] [facility] [address] [id number] [place] [address] Feb, [facility] [place] [facility] [address] [id number] [place] [address] Feb, [facility] [place] [facility] [address] [id number] [place] [address] Dec, [facility] [place] [facility] [address] [id number] [place] [address] Nov, [facility] [place] [facility] [address] [id number] [place] [address] Nov, [facility] [facility] [address] [id number] [place] [address] Oct, [facility] [address] [id number] [place] [address] 27 Oct, 2011 [facility] [address] [id number] [place] [address] 23 Oct, 2011 [facility] [address] [id number] [place] [address]- [address] 22 Oct, 2011 [facility] [address] [id number] [place] [address] Oct, [facility] [address] [id number] [place] [address] 17 Oct, 2011 [facility] [address] [id number] [place] [address] 06 Oct, 2011 [facility] [facility] [address] [id number] [place] [address] Aug, [facility] [address] [id number] [place] [address] Jul, [facility] [address] [id number] [place] [address] Jul, [facility] [address] [id number] [place] [address]- [address] 15 Jul, 2011 [facility] [address] [id number] [place] [address] Jul, [facility] [address] [id number] [place] [address] Jul, [facility] [address] [id number] [place] [address] Jul, [facility] [address] [id number] [place] [address] Jul, [facility] [place] [facility] [address] [id number] [place] [address] 24 Jun, 2011 [facility] [place] [facility] [address] [id number] [place] [address] May, [facility] [place] [facility] [address] [id number] [place] [address] May, [facility] [place] [facility] [address] [id number] [place] [address] May, [facility] [place] [facility] [address] [id number] [place] [address] Apr, [facility] [place] [facility] [address] [id number] [place] [address] Apr, [facility] [place] [facility] [address] [id number] [place] [address] 16 Apr, 2011 [facility] [place] [facility] [address] [id number] [place] [address] Apr, [facility] [place] [facility] [address] [id number] [place] [address] Apr, [facility] [place] [facility] [address] [id number] [place] [address] Apr, [facility] [place] [facility] [address] [id number] [place] [address] Mar, [facility] [place] [facility] [address] [id number] [place] [address] Mar, [facility] [place] [facility] [address] [id number] [place] [address] Mar, [facility] [place] [facility] [address] [id number] [place] [address] Mar, [facility] [place] [facility] [address] [id number] [place] [address] Mar, [facility] [place] [facility] [address] [id number] [place] [address] Mar, [facility] [place] [facility] [address] [id number] [place] [address] Mar, [facility] [place] [facility] [address] [id number] [address] Dec, [facility] [place] [id number] [address] Aug, [facility] [place] [id number] [address] Apr, [facility] [place] [id number] [address] Mar, [facility] [place] [id number] [place] [address] Mar, [facility] [place] [id number] [place] [address] Mar, [facility] [place] [id number] [address] Mar, [facility] [place] [id number] [place] [address] September, [facility] [place] [id number] [address] Mar, [facility] [place] [id number], [place] [address] Feb, [facility] [place] [id number] [address] Oct, [facility] [place] [address], [place] [address] September, [facility] [place] [address], [place] [address] Apr, [facility] [place] [address] [address] Mar, IMMUNIZATIONS No Known Immunizations SOCIAL HISTORY Never Assessed REASON FOR VISIT right shoulder pain-xray done. Consult Manny Murray;Reginaldo RT(R) PLAN OF CARE Activity Details Follow Up prn Reason: VITAL SIGNS Height 65 in 2017-04-19 Blood pressure systolic 134 mmHg 2017-04-19 Blood pressure diastolic 82 mmHg 2017-04-19 MEDICATIONS No Known Medications RESULTS Name Result Date Reference Range MRI : Cervical w/o Contrast 2017-05-09 PROCEDURES No Known procedures INSTRUCTIONS MEDICATIONS ADMINISTERED [...]
--- OUTSIDE RECORDS SUMMARY | 2018-02-08 02:23 | XMS REPORT ---
Author Author PHUC AMIN [facility] eClinicalWorks Address Unknown Phone Unavailable Care Team Providers Care Poultry Killer Name Role Phone PHUC AMIN Unavailable Allergies, Adverse Reactions, Alerts Substance Reaction Event Type Tekturna Info Not Available Drug Allergy Niacin rash Drug Allergy Macrobid anaphylaxis Drug Allergy Iodine (IV contrast) Drug Allergy Ibuprofen (All NSAIDs) Drug Allergy Bactrim resp distress Drug Allergy Problems Problem Type Condition Code Onset Dates Condition Status Assessment Other seasonal allergic rhinitis J30.2 Active Assessment Gastroesophageal reflux disease without esophagitis K21.9 Active Assessment Chronic kidney disease, unspecified N18.9 Active Problem Anemia of chronic disease D63.8 Active Assessment Left-sided chest wall pain R07.89 Active Problem Periapical abscess without sinus K04.7 Active Assessment Nausea with vomiting, unspecified R11.2 Active Problem Chronic kidney disease, unspecified N18.9 Active Problem 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 Problem Gastroesophageal reflux disease without esophagitis K21.9 Active Problem Swelling of right lower extremity M79.89 Active Problem Diarrhea, unspecified R19.7 Active Assessment Pain of right lower extremity M79.604 Active Assessment Swelling of right lower extremity M79.89 Active Problem Pain of right lower extremity M79.604 Active Assessment Diarrhea, unspecified R19.7 Active Problem Other seasonal allergic rhinitis J30.2 [...] R00.0 Active Problem Abnormal glucose R73.09 Active Medications Medication Code System Code Instructions Start Date End Date Status Dosage Multivitamin [facility] [address] Orally not defined Proventil HFA [facility] [address]-76 90 mcg/actuation 2 puff(s) inhaled 4 times a day May 22, 2014 2 puffs by Inhalation route 4 times per day PRN Toprol XL [facility] [address]-92 200 MG Orally Once a day 1 tablet Gabapentin [facility] 77738226040 100 MG Orally Three times a day 1 tablet Triamcinolone Acetonide [facility] [address]-70 0.1 % Externally Twice a day September 23, 2015 1 application to affected area Fluticasone Propionate [facility] [address]-85 50 MCG/ACT Nasally Once a day 1 spray in each nostril Amlodipine Besylate [facility] [address]-40 10 mg Orally Once a day 1 tablet Simvastatin [facility] [address]-07 10 mg Orally Once a day 1 tablet in the evening Dicyclomine HCl [facility] [address]-30 10 mg Orally Four times a day prn NovemberNovember 16, 2015 1 capsule Omeprazole [facility] [address]-70 40 mg Orally Once a day 1 capsule Symbicort [facility] [address]-86 160-4.5 MCG/ACT Inhalation Twice a day sample today May 17, 2015 1 puffs Amlodipine Besylate [facility] [address]-76 10 MG TAKE ONE TABLET BY MOUTH ONCE DAILY Lisinopril [facility] [address]-93 20 MG Orally Once a day 1 tablet Vitamin C [facility] [address]-38 500 mg Jun 02, 2014 1 tablet by Oral route 1 time per day Calcium [facility] [address] 600 MG Orally not defined Baclofen [facility] [address]-72 10 MG Orally 2 times a day Jan 27, 2015 1/2 tablet with food or milk Procedures Procedure Coding System Code Date COMPREHEN METABOLIC PANEL CPT-4 67651 November 11, 2015 ELECTROCARDIOGRAM, TRACING CPT-4 42598 November 11, 2015 CHEST X-RAY CPT-4 30662 November 11, 2015 VENIPUNCT, ROUTINE* CPT-4 83465 November 11, 2015 Office Visit, Est Pt., Level 4 CPT-4 54140 November 11, 2015 Vital Signs Date/Time: November 11, 2015 Cardiac Monitoring Heart Rate 80 bpm Weight 267.7 lbs Height 65 in Blood Pressure Diastolic 78 mmHg Blood Pressure Systolic 142 mmHg Results No Known Results Summary Purpose eClinicalWorks Submission
--- OUTSIDE RECORDS SUMMARY | 2018-02-08 02:23 | XMS REPORT ---
Author Author SINTIA BOSCH [facility] eClinicalWorks Address Unknown Phone Unavailable Care Team Providers Care Research Agricultural Engineer Name Role Phone SINTIA BOSCH Unavailable Allergies No Known Allergies Problems Problem Type Condition Code Onset Dates Condition Status Problem Cervicalgia M54.2 Active Problem Peripheral vascular disease I73.9 Active Problem Dysphagia, unspecified R13.10 Active Assessment Acute cystitis with hematuria N30.01 Active Problem Urinary, incontinence, stress female N39.3 Active Problem Periapical abscess without sinus K04.7 Active Problem Anemia of chronic disease D63.8 Active Problem Chronic kidney disease, unspecified N18.9 Active Problem Abnormal glucose R73.09 Active Problem Tachycardia, unspecified R00.0 Active Problem Pure hyperglyceridemia E78.1 Active Problem Abnormal blood chemistry R79.9 Active Medications Medication Code System Code Instructions Start Date End Date Status Dosage Ciprofloxacin HCl [facility] [address]-81 250 MG Orally every 12 hrs Mar 08, 2015 Mar 11, 2015 1 tablets Results No Known Results Summary Purpose eClinicalWorks Submission
--- OUTSIDE RECORDS SUMMARY | 2018-02-08 02:23 | XMS REPORT ---
Author Author RONAN NAVEEN Organization [facility] Address [address] [place] [address] Care Team Providers Care Circular Tank Cooper Name Role Phone FERRAROTHIERNO ZavaletaELE Unavailable PROBLEMS Type Condition ICD9-CM Code [id number] Code Onset Dates Condition Status SNOMED Code Problem Abnormal chest x-ray R93.8 Active 994356392 Problem Hepatic steatosis K76.0 Active 884410630 Problem Abnormal glucose R73.09 Active 101252266 Problem Dysphagia, unspecified R13.10 Active 06671483 Problem Tachycardia, unspecified R00.0 Active 3533287 Problem Pain of right lower extremity M79.604 Active 533648573 Problem Chronic kidney disease, unspecified N18.9 Active 352221802 Problem Left-sided chest wall pain R07.89 Active 464564541 Problem Cervicalgia M54.2 Active 4087742427680 Problem Other seasonal allergic rhinitis J30.2 Active 055261213 Problem Lung nodule, solitary R91.1 Active 843607474 Problem Swelling of right lower extremity M79.89 Active 034654729 Problem H. pylori infection A04.8 Active 755705677 Problem Prediabetes R73.03 Active 155447724 Problem Anemia of chronic disease D63.8 Active 466794050 Problem Pure hyperglyceridemia E78.1 Active 855169670 Problem Periapical abscess without sinus K04.7 Active 601492327 Problem Stenosis of right renal artery I70.1 Active 04045701703561358 Problem Pain in right knee M25.561 Active 18628332 Problem Seasonal allergic rhinitis, unspecified allergic rhinitis trigger J30.2 Active 952423234 Problem Abdominal aortic aneurysm (AAA) without rupture I71.4 Active 74321151 Problem Peripheral vascular disease I73.9 Active 312910476 Problem Gastroesophageal reflux disease without esophagitis K21.9 Active 833221979 Problem Urinary, incontinence, stress female N39.3 Active 03362349 Problem Abnormal blood chemistry R79.9 Active 940025983 Problem Diarrhea, unspecified R19.7 Active 05297525 Problem Nausea with vomiting, unspecified R11.2 Active 3674139 Problem 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 133414009 Problem Essential hypertension I10 Active 70459354 ALLERGIES Substance Reaction Event Type Date Status Tekturna Unknown Drug Allergy May, Active Niacin rash Drug Allergy May, Active Macrobid anaphylaxis Drug Allergy May, Active Iodine (IV contrast) Drug Allergy May, Active Ibuprofen (All NSAIDs) Drug Allergy May, Active Bactrim resp distress Drug Allergy May, Active SOCIAL HISTORY No smoking Hx information available PLAN OF CARE Activity Details Follow Up prn Reason: VITAL SIGNS Height 65 in 2016-05-26 Weight 273 lbs 2016-05-26 Temperature 98.6 degrees Fahrenheit 2016-05-26 Heart Rate 80 bpm 2016-05-26 Respiratory Rate 20 2016-05-26 BMI 45.42 kg/m2 2016-05-26 Blood pressure systolic 140 mmHg 2016-05-26 Blood pressure diastolic 80 mmHg 2016-05-26 MEDICATIONS Medication Instructions Dosage Frequency Start Date End Date Duration Status Proventil HFA 90 mcg/actuation 2 puffs by Inhalation route 4 times per day PRN May, Active Cyclobenzaprine HCl 10 mg Orally at hs prn 1 tablet Dec, Active Vitamin C 500 mg 1 tablet by Oral route 1 time per day May, Active Calcium 600 MG Active Fluticasone Propionate 50 MCG/ACT Nasally Once a day 1 spray in each nostril 24h 30 day(s) Active Lisinopril 20 MG Orally Once a day 1 tablet 24h Active Amlodipine Besylate 10 mg Orally Once a day 1 tablet 24h Active Simvastatin 10 mg Orally Once a day 1 tablet in the evening 24h Active Triamcinolone Acetonide 0.1 % Externally Twice a day 1 application to affected area 12h September, Active Tramadol HCl 50 mg Orally Once a day prn severe pain 1 tablet as needed Jan, Active Fish Oil 1000 MG Orally Once a day at bedtime 2 capsule Active Multivitamin Active Symbicort 160-4.5 MCG/ACT Inhalation Twice a day sample today 1 puffs May, Active Gabapentin 100 MG Orally 2 times a day 1 tablet 12h Active Omeprazole 40 mg Orally Once a day 1 capsule 24h Active Toprol XL 200 mg Orally Once a day 1 tablet 24h Active RESULTS Name Result Date Reference Range UA LONG DIP (IN HOUSE) 2016-05-26 Lot # [id number] Exp date 03/23 Clarity clear Color yellow Odor none GLU negative LYNN negative KET negative SG 1.010 BLO negative pH 5.5 Protein negative URO 0.2 NIT negative MONSERRAT negative Lot # Exp date CT Scan : Abd & Pelvis w/o contrast (STONE PROTOCOL) 2016-05-26 PROCEDURES Procedure Date Ordered Related Diagnosis Body Site URINALYSIS, AUTO, W/O SCOPE May 26, 2016 Office Visit, Est Pt., Level 3 May 26, 2016 IMMUNIZATIONS No Known Immunizations
--- OUTSIDE RECORDS SUMMARY | 2018-02-08 02:24 | XMS REPORT ---
Author Author PHUC AMIN Organization [employer]ClinicalWorks Address Unknown Phone Unavailable Care Team Providers Care Can Feeder Name Role Phone PHUC AMIN CP Unavailable [...] M54.2 Active Problem Dysphagia, unspecified R13.10 Active Assessment Essential hypertension I10 Active Problem Peripheral vascular disease I73.9 Active Medications No Known Medications Results No Known Results Summary Purpose eClinicalWorks Submission
--- OUTSIDE RECORDS SUMMARY | 2018-02-08 02:24 | XMS REPORT ---
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 Assessment Gastroesophageal reflux disease without esophagitis K21.9 Active Problem Essential hypertension I10 Active Problem Anemia of chronic disease D63.8 Active Problem Pure hyperglyceridemia E78.1 Active Problem Chronic kidney disease, unspecified N18.9 Active Problem Periapical abscess without sinus K04.7 Active Assessment Pure hyperglyceridemia E78.1 Active Assessment Anemia of chronic disease D63.8 Active Assessment Abnormal glucose R73.09 Active Assessment Peripheral vascular disease I73.9 Active Problem Urinary, incontinence, stress female N39.3 Active Problem Cervicalgia M54.2 Active Assessment Chronic kidney disease, unspecified N18.9 Active Problem Dysphagia, unspecified R13.10 Active Assessment Cough R05 Active Assessment Essential hypertension I10 Active Problem Peripheral vascular disease I73.9 Active Medications Medication Code System Code Instructions Start Date End Date Status Dosage Proventil HFA [facility] [address]-40 90 mcg/actuation 2 puff(s) inhaled 4 times a day May 22, 2014 2 puffs by Inhalation route 4 times per day PRN Advair Diskus [facility] [address]-58 250 mcg-50 mcg 1 puff(s) inhaled 2 times a day Jun 30, 2013 1 puffs by Inhalation route 2 times per day Amlodipine Besylate [facility] [address]-42 10 MG Orally Once a day 1 tablet Omeprazole [facility] [address]-34 40 MG Orally Once a day 1 capsule Vitamin C [facility] [address]-41 500 mg Jun 02, 2014 1 tablet by Oral route 1 time per day Calcium [facility] [address] 600 MG Orally not defined Multivitamin [facility] [address] Orally not defined Lisinopril [facility] [address]-21 20 MG Orally Once a day 1 tablet Toprol XL [facility] [address]-08 100 MG Orally Once a day 2 tablet Neurontin [facility] [address]-99 300 MG Orally 2 times a day July 31, 2014 1 capsule Simvastatin [facility] [address]-41 10 MG Orally Once a day 1 tablet in the evening Doxycycline Hyclate [facility] [address]-85 100 MG Orally every 12 hrs Apr 15, 2015 Apr 25, 2015 1 capsule Procedures Procedure Coding System Code Date COMPLETE CBC W/AUTO DIFF WBC CPT-4 51835 Apr 15, 2015 ASSAY THYROID STIM HORMONE CPT-4 34567 Apr 15, 2015 COMPREHEN METABOLIC PANEL CPT-4 49528 Apr 15, 2015 VENIPUNCT, ROUTINE* CPT-4 80404 Apr 15, 2015 GLYCATED HEMOGLOBIN TEST CPT-4 23199 Apr 15, 2015 LIPID PANEL CPT-4 71505 Apr 15, 2015 Office Visit, Est Pt., Level 4 CPT-4 26954 Apr 15, 2015 CHEST X-RAY CPT-4 83667 Apr 15, 2015 Vital Signs Date/Time: Apr 15, 2015 Temperature 97.8 F Weight 252.4 lbs Height 65 in BMI 42.00 Index Blood Pressure Diastolic 82 mmHg Blood Pressure Systolic 122 mmHg Cardiac Monitoring Heart Rate 72 bpm Results Name Result Date Reference Range Unit Abnormality Flag ROUTINE VENIPUNCTURE A1C (IN HOUSE) ----Exp date [id number] ----Previous A1c 5.5% 01/14/1420150415 ----Lot # [id number] ----A1C IN HOUSE 5.2% 20150415 4.30 - 5.6 % Summary Purpose eClinicalWorks Submission
--- OUTSIDE RECORDS SUMMARY | 2018-02-08 02:24 | XMS REPORT ---
Author Author MARGAUX ROSAS [facility] Address [address] [place] [address] Care Team Providers Care Automobile Appraiser Name Role Phone MARGAUX ROSAS Unavailable PROBLEMS Type Condition ICD9-CM Code [id number] Code Onset Dates Condition Status SNOMED Code Problem Hepatic steatosis K76.0 Active 391305276 Problem Abnormal chest x-ray R93.8 Active 613585146 Problem Urinary, incontinence, stress female N39.3 Active 87950534 Problem Cervicalgia M54.2 Active 0406409628632 Problem Dysphagia, unspecified R13.10 Active 12834092 Problem Nausea with vomiting, unspecified R11.2 Active 8455336 Problem Peripheral vascular disease I73.9 Active 888824227 Problem Diarrhea, unspecified R19.7 Active 00060580 Problem Tachycardia, unspecified R00.0 Active 9917196 Problem Swelling of right lower extremity M79.89 Active 224025469 Problem Lung nodule, solitary R91.1 Active 235328574 Problem Pain of right lower extremity M79.604 Active 465375531 Problem H. pylori infection A04.8 Active 999876198 Problem Prediabetes R73.03 Active 647439460 Problem Pure hyperglyceridemia E78.1 Active 584566571 Problem Abnormal blood chemistry R79.9 Active 501052135 Problem Abnormal glucose R73.09 Active 021079811 Problem Stenosis of right renal artery I70.1 Active 78694295158445986 Problem Pain in right knee M25.561 Active 86953909 Problem Seasonal allergic rhinitis, unspecified allergic rhinitis trigger J30.2 Active 337413386 Problem Abdominal aortic aneurysm (AAA) without rupture I71.4 Active 32874562 Problem Chronic kidney disease, unspecified N18.9 Active 196812055 Problem Gastroesophageal reflux disease without esophagitis K21.9 Active 696934526 Problem Anemia of chronic disease D63.8 Active 782784172 Problem Periapical abscess without sinus K04.7 Active 497030260 Problem Other seasonal allergic rhinitis J30.2 Active 987185494 Problem Left-sided chest wall pain R07.89 Active 045041886 Problem 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 956918327 Problem Essential hypertension I10 Active 26766859 ALLERGIES Substance Reaction Event Type Date Status Tekturna Unknown Drug Allergy Apr, Active Niacin rash Drug Allergy Apr, Active Macrobid anaphylaxis Drug Allergy Apr, Active Iodine (IV contrast) Drug Allergy Apr, Active Ibuprofen (All NSAIDs) Drug Allergy Apr, Active Bactrim resp distress Drug Allergy Apr, Active SOCIAL HISTORY No smoking Hx information available PLAN OF CARE Activity Details Follow Up prn Reason: VITAL SIGNS Height 65 in 2016-05-05 Weight 267 lbs 2016-05-05 Temperature 98.5 degrees Fahrenheit 2016-05-05 Heart Rate 88 bpm 2016-05-05 Respiratory Rate 22 2016-05-05 BMI 44.43 kg/m2 2016-05-05 Blood pressure systolic 150 mmHg 2016-05-05 Blood pressure diastolic 78 mmHg 2016-05-05 MEDICATIONS Medication Instructions Dosage Frequency Start Date End Date Duration Status Triamcinolone Acetonide 0.1 % Externally Twice a day 1 application to affected area 12h September, Active Amlodipine Besylate 10 mg Orally Once a day 1 tablet 24h Active Tramadol HCl 50 mg Orally Once a day prn severe pain 1 tablet as needed Jan, Active Multivitamin Active Simvastatin 10 mg Orally Once a day 1 tablet in the evening 24h Active Symbicort 160-4.5 MCG/ACT Inhalation Twice a day sample today 1 puffs May, Active Omeprazole 40 mg Orally Once a day 1 capsule 24h Active Cyclobenzaprine HCl 10 mg Orally at hs prn 1 tablet Dec, Active Gabapentin 100 MG Orally Three times a day 1 tablet 8h 30 Active Toprol XL 200 mg Orally Once a day 1 tablet 24h Active Proventil HFA 90 mcg/actuation 2 puffs by Inhalation route 4 times per day PRN May, Active Fluticasone Propionate 50 MCG/ACT Nasally Once a day 1 spray in each nostril 24h 30 day(s) Active Vitamin C 500 mg 1 tablet by Oral route 1 time per day May, Active Lisinopril 20 MG Orally Once a day 1 tablet 24h Active Calcium 600 MG Active RESULTS Name Result Date Reference Range CMP 2016-05-05 Glucose, Serum 138 65-99 BUN 10 6-24 Creatinine, Serum 1.17 0.57-1.00 eGFR If NonAfricn Am 53 >59 eGFR If Africn Am 61 >59 BUN/Creatinine Ratio 9 9-23 Sodium, Serum 139 134-144 Potassium, Serum 4.8 3.5-5.2 Chloride, Serum 98 96-106 Carbon Dioxide, Total 24 18-29 Calcium, Serum 9.9 8.7-10.2 Protein, Total, Serum 7.0 6.0-8.5 Albumin, Serum 4.6 3.5-5.5 Globulin, Total 2.4 1.5-4.5 A/G Ratio 1.9 1.1-2.5 Bilirubin, Total 0.4 0.0-1.2 Alkaline Phosphatase, S 84 39-117 AST (SGOT) 20 0-40 ALT (SGPT) 25 0-32 CBC 2016-05-05 WBC 6.8 3.4-10.8 RBC 4.02 3.77-5.28 Hemoglobin 12.1 11.1-15.9 Hematocrit 36.2 34.0-46.6 MCV 90 79-97 MCH 30.1 26.6-33.0 MCHC 33.4 31.5-35.7 RDW 14.1 12.3-15.4 Platelets 226 150-379 Neutrophils 69 Lymphs 22 Monocytes 7 Eos 2 Basos 0 Neutrophils (Absolute) 4.7 1.4-7.0 Lymphs (Absolute) 1.5 0.7-3.1 Monocytes(Absolute) 0.5 0.1-0.9 Eos (Absolute) 0.1 0.0-0.4 Baso (Absolute) 0.0 0.0-0.2 Immature Granulocytes 0 Immature Grans (Abs) 0.0 0.0-0.1 LIPID PANEL 2016-05-05 Cholesterol, Total 204 100-199 Triglycerides 235 0-149 HDL Cholesterol 33 >39 VLDL Cholesterol John 47 5-40 LDL Cholesterol Calc 124 0-99 Comment: PROCEDURES Procedure Date Ordered Related Diagnosis Body Site Office Visit, Est Pt., Level 2 May 05, 2016 COMPLETE CBC W/AUTO DIFF WBC May 05, 2016 COMPREHEN METABOLIC PANEL May 05, 2016 LIPID PANEL May 05, 2016 VENIPUNCT, ROUTINE* May 05, 2016 IMMUNIZATIONS No Known Immunizations
--- OUTSIDE RECORDS SUMMARY | 2018-02-08 02:25 | XMS REPORT ---
Author Author SINTIA BOSCH e[employer] Address Unknown Phone Unavailable Care Team Providers Care Installation Drafter Name Role Phone SINTIA BOSCH Unavailable Allergies, [...] Problem Abnormal blood chemistry R79.9 Active Assessment Hyperpigmentation L81.9 Active Assessment Hypopigmentation L81.9 Active Problem Urinary, incontinence, stress female N39.3 Active Medications Medication Code System Code Instructions Start Date End Date Status Dosage Advair Diskus [facility] [place] [address]-08 250 mcg-50 mcg 1 puff(s) inhaled 2 times a day Jun 30, 2013 1 puffs by Inhalation route 2 times per day Amlodipine Besylate [facility] [place] [address]-74 10 MG Orally Once a day 1 tablet Vitamin C [facility] [place] [address]-69 500 mg Jun 02, 2014 1 tablet by Oral route 1 time per day Multivitamin [facility] [place] [address] Orally not defined Simvastatin [facility] [place] [address]-59 10 MG Orally Once a day 1 tablet in the evening Lisinopril [facility] [place] [address]-03 20 MG Orally Once a day 1 tablet Omeprazole [facility] [place] [address]-67 40 MG Orally Once a day 1 capsule Calcium [facility] [place] [address] 600 MG Orally not defined Proventil HFA [facility] [place] [address]-86 90 mcg/actuation 2 puff(s) inhaled 4 times a day May 22, 2014 2 puffs by Inhalation route 4 times per day PRN Neurontin [facility] [place] [address]-81 100 mg July 31, 2014 1 capsule by Oral route 3 times per day Toprol XL [facility] [place] [address]-58 100 MG Orally Once a day 2 tablet Procedures Procedure Coding System Code Date BIOPSY OF SKIN LESION CPT-4 67033 Mar 17, 2015 Vital Signs Date/Time: Mar 17, 2015 Temperature 97.4 F Weight 250.5 lbs Height 65 in BMI 41.68 Index Blood Pressure Diastolic 76 mmHg Blood Pressure Systolic 138 mmHg Cardiac Monitoring Heart Rate 68 bpm Results Name Result Date Reference Range Unit Abnormality Flag BIOPSY SKIN LESION (SINGLE) Summary Purpose eClinicalWorks Submission
--- OUTSIDE RECORDS SUMMARY | 2018-02-08 02:25 | XMS REPORT ---
Author Author MARGAUX ROSAS [facility] [place] eClinicalWorks Address Unknown Phone Unavailable Care Team Providers Care Bench Technician Name Role Phone MARGAUX ROSAS CP Unavailable Allergies, Adverse Reactions, Alerts Substance [...] Problem Hyposmolality and/or hyponatremia 276.1 Active Assessment Acute bronchitis 466.0 Active Problem Unspecified peripheral vascular disease 443.9 Active Medications Medication Code System Code Instructions Start Date End Date Status Dosage Lisinopril [facility] [address]-48 20 MG Orally Once a day October 29, 2014 1 tablet Proventil HFA [facility] [address]-97 90 mcg/actuation 2 puff(s) inhaled 4 times a day May 22, 2014 2 puffs by Inhalation route 4 times per day PRN Norvasc [facility] [address]-19 10 mg 1 TAB orally once a day July 31, 2014 1 tablet by Oral route 1 time per day Simvastatin [facility] [address]-41 10 MG Orally Once a day October 29, 2014 1 tablet in the evening Toprol XL [facility] [address]-39 200 MG Orally Once a day 1 tablet Lamisil [facility] [address]-17 250 MG Orally Once a day November 24, 2014 Feb 22, 2015 1 tablet Neurontin [facility] [address]-11 100 mg July 31, 2014 1 capsule by Oral route 3 times per day Vitamin C [facility] [address]-53 500 mg Jun 02, 2014 1 tablet by Oral route 1 time per day PredniSONE [facility] [address]-80 50 MG Orally Once a day Jan 01, 2015 1 tablet with food or milk Calcium [facility] [address] 600 MG Orally not defined Multivitamin [facility] [address] Orally not defined Amlodipine Besylate [facility] [address]-18 10 MG Orally Once a day October 29, 2014 1 tablet Nexium [facility] [address]-11 40 mg July 31, 2014 1 capsule by Oral route 1 time per day Omeprazole [facility] [address]-30 40 MG Orally Once a day October 29, 2014 1 capsule Keflex [facility] [address]-71 500 MG Orally 4 times a day Jan 01, 2015Jan 1 capsule Procedures Procedure Coding System Code Date Office Visit, Est Pt., Level 2 CPT-4 51386 Jan 01, 2015 MEASURE BLOOD OXYGEN LEVEL CPT-4 09689 Jan 01, 2015 Vital Signs Date/Time: Jan 01, 2015 Temperature 97.9 F Weight 255.2 lbs Height 65 in Oximetry 98 % Blood Pressure Diastolic 70 mmHg Blood Pressure Systolic 130 mmHg Cardiac Monitoring Heart Rate 78 bpm BMI 42.46 Index Results No Known Results Summary Purpose eClinicalWorks Submission
--- OUTSIDE RECORDS SUMMARY | 2018-02-08 02:25 | XMS REPORT ---
Author Author ABEL HOFF Organization [facility] Address [address] [place] [address] Care Team Providers Care Dress Shoe Inspector Name Role Phone ABEL HOFF Unavailable PROBLEMS Type Condition ICD9-CM Code WCD80-CP Code Onset Dates Condition Status SNOMED Code Problem Stenosis of right renal artery I70.1 Active [id number] Problem Seasonal allergic rhinitis, unspecified allergic rhinitis trigger J30.2 Active 932889770 Problem Abdominal aortic aneurysm (AAA) without rupture I71.4 Active 64009625 Problem Mixed hyperlipidemia E78.2 Active 336431135 Problem Other chronic pain G89.29 Active 96372099 Problem PVD (peripheral vascular disease) I73.9 Active 813057164 Problem Prediabetes R73.03 Active 838847919 Problem Arthritis of knee M17.10 Active 567077622 Problem Renal artery stenosis I70.1 Active 556852503 Problem Peripheral vascular disease I73.9 Active 521743713 Problem Dysphagia, unspecified R13.10 Active 44581474 Problem Hepatic steatosis K76.0 Active 870180842 Problem Urinary, incontinence, stress female N39.3 Active 31521848 Problem Anemia of chronic disease D63.8 Active 911256239 Problem 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 980467018 Problem Chronic kidney disease, unspecified N18.9 Active 291244195 Problem Essential hypertension I10 Active 91966458 Problem Cervicalgia M54.2 Active [id number] Problem Gastroesophageal reflux disease without esophagitis K21.9 Active 580621983 ALLERGIES Substance Reaction Event Type Date Status [place] Unknown Drug Allergy Apr, Active Niacin rash Drug Allergy Apr, Active Macrobid anaphylaxis Drug Allergy Apr, Active Iodine (IV contrast) Drug Allergy Apr, Active Ibuprofen (All NSAIDs) Drug Allergy Apr, Active Bactrim resp distress Drug Allergy Apr, Active ENCOUNTERS Encounter Location Date Diagnosis [place] [id number] [place] [address] 51700- 1149 September, Chronic kidney disease, unspecified N18.9 ; Essential hypertension I10 ; Mixed hyperlipidemia E78.2 and BMI 45.0-49.9, adult Z68.42 [place] [id number] [place] [address] 73728- 3648 September, [place] [address] 54186- 5402 September, Essential hypertension I10 ; Chronic kidney disease, unspecified N18.9 ; Prediabetes R73.03 ; Low back pain M54.5 ; Other chronic pain G89.29 ; Arthritis of knee M17.10 ; Pure hyperglyceridemia E78.1 ; Anemia of chronic disease D63.8 and BMI 45.0-49.9, adult Z68.[address] [address]- 5678 Aug, [address] 43872- 9532 Jul, Abdominal aortic aneurysm (AAA) without rupture I71.4 ; PVD (peripheral vascular disease) I73.9 ; Renal artery stenosis I70.1 and Essential hypertension I10 [place] [id number] [place] [address] 38278- 7786 May, Essential hypertension I10 ; Pure hyperglyceridemia E78.1 ; Abdominal aortic aneurysm (AAA) without rupture I71.4 ; Chronic kidney disease, unspecified N18.9 ; Gastroesophageal reflux disease without esophagitis K21.9 ; 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 ; Stenosis of right renal artery I70.1 ; Anemia of chronic disease D63.8 and Prediabetes R73.03 [place] [id number] [place] [address] 58719- 9364 May, Tinea corporis B35.4 and Viral URI J06.[address] 55979- 6454 May, [facility] [id number] [place] [address] 51445- 1043 Apr, [place] [id number] [place] [address] 63094- 3052 Apr, Cervical radiculopathy M54.12 [facility] [id number] [place] [address] 41987 -0190 Apr, Flank pain R10.9 and Acute pyelonephritis N10 [place] [id number] [place] [address] 78071- 2705 Apr, [place] [address] 32564- 3458 Mar, [place] [id number] [place] [address] 53697- 8313 Feb, Pain of right shoulder region M25.511 [place] [id number] [place] [address] 63737- 7683 Feb, History of glaucoma Z86.69 ; Vision changes H53.9 ; Abdominal aortic aneurysm (AAA) without rupture I71.4 ; Xerosis of skin L85.3 and Pain in right shoulder M25.511 [place] [id number] [place] [address] 63779- 7071 Feb, [place] [id number] [place] [address] 58533- 8169 13 Jan, 2017 Essential hypertension I10 ; Pure hyperglyceridemia E78.1 ; Chronic kidney disease, unspecified N18.9 ; Gastroesophageal reflux disease without esophagitis K21.9 ; 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 ; Stenosis of right renal artery I70.1 ; Anemia of chronic disease D63.8 ; Prediabetes R73.03 ; Pain of right shoulder region M25.511 and Homeless Z59.0 [place] [id number] [place] [address] 69084- 4239 Jan, Neck pain M54.2 and Seasonal allergic rhinitis, unspecified allergic rhinitis trigger J30.2 [facility] [id number] [place] [address] 46280- 8021 Dec, [place] [id number] [place] [address] 89848- 7921 Dec, [place] [id number] [place] [address] 91805- 6429 Dec, Blood glucose abnormal R73.09 ; Essential [...] and Prediabetes R73.03 [facility] [id number] [place] [address] 76527 -2919 Oct, Seasonal allergic rhinitis, unspecified allergic rhinitis trigger J30.2 [place] [id number] [place] [address] 50666- 8348 September, Eustachian tube dysfunction, left H69.82 and Candidiasis of breast B37.89 [place] [id number] [place] [address] 45839- 7861 Jul, Blood glucose abnormal R73.09 ; Essential hypertension I10 ; Pure hyperglyceridemia E78.1 ; Chronic kidney disease, unspecified N18.9 ; Gastroesophageal reflux disease without esophagitis K21.9 ; 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 ; Abdominal aortic aneurysm (AAA) without rupture I71.4 ; Stenosis of right renal artery I70.1 ; Anemia of chronic disease D63.8 and Acute non-recurrent maxillary sinusitis J01.00 [facility] [id number] [place] [address] 29517- 3545 Jun, Acute non-recurrent maxillary sinusitis J01.00 ; Acute mucoid otitis media of left ear H65.112 ; Nausea R11.0 and Fever and chills R50.9 [facility] [id number] [place] [address] 24632- 2720 May, Acute right flank pain R10.9 [facility] [id number] [place] [address] 58316- 8036 Apr, Acute nasopharyngitis J00 ; Pure hyperglyceridemia E78.1 and Chronic kidney disease, unspecified N18.9 [place] [address] 51410- 8170 Apr, [place] [address] 82198- 5322 Apr, Blood glucose abnormal R73.09 ; Essential hypertension I10 ; Pure hyperglyceridemia E78.1 ; Chronic kidney disease, unspecified N18.9 ; Gastroesophageal reflux disease without esophagitis K21.9 ; 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 ; Abdominal aortic aneurysm (AAA) without rupture I71.4 ; Stenosis of right renal artery I70.1 ; RUQ pain R10.11 and Anemia of chronic disease D63.8 [place] [id number] [place] [address] 34340- 4260 Mar, Blood glucose abnormal R73.09 [place] [id number] [place] [address] 27907- 0221 Mar, Cellulitis of right lower leg L03.115 [facility] [id number] [place] [address] 57984 -8679 Feb, [facility] [id number] [place] [address] 25024- 4020 Feb, Dysuria R30.0 and Upper respiratory tract infection, unspecified type J06.9 [facility] [id number] [place] [address] 12454- 8739 Jan, [place] [id number] [place] [address] 15707- 7791 Jan, [place] [id number] [place] [address] 75460- 9704 Dec, [address] 20656- 0839 Dec, Anemia of chronic disease D63.8 ; Essential hypertension I10 ; Pure hyperglyceridemia E78.1 ; Chronic kidney disease, unspecified N18.9 ; Gastroesophageal reflux disease without esophagitis K21.9 ; 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 and Pain in right knee M25.[address] 23347- 2699 Dec, Left shoulder strain, subsequent encounter S46.912D ; Urinary frequency R35.0 ; Lung nodule, solitary R91.1 ; Essential hypertension I10 and Acute cystitis without hematuria N30.[address] 32223- 1955 Nov, Left-sided chest wall pain R07.89 and Abnormal chest xray R93.[address] 58263- 8907 Nov, Pain of right lower extremity M79.604 ; Swelling of right lower extremity M79.89 ; Diarrhea, unspecified R19.7 ; Nausea with vomiting, unspecified R11.2 ; Left-sided chest wall pain R07.89 ; Chronic kidney disease, unspecified N18.9 ; Gastroesophageal reflux disease without esophagitis K21.9 and Other seasonal allergic rhinitis J30.2 [place] [id number] [place] [address] 65976- 7046 September, Essential hypertension I10 ; Chronic kidney disease, unspecified N18.9 ; Anemia of chronic disease D63.8 ; Pure hyperglyceridemia E78.1 ; Peripheral vascular disease I73.9 ; Abnormal glucose R73.09 ; 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 ; Gastroesophageal reflux disease without esophagitis K21.9 ; Allergic rhinitis J30.9 and Rash R21 [address] 71379- 5082 Aug, Abdominal pain R10.9 and Constipation K59.00 [place] [id number] [place] [address] 55332- 0962 31 Jul, 2015 Injury of toe on right foot S99.921A [place] [id number] [place] [address] 68478- 4658 14 Jul, 2015 [place] [address] 06625- 6146 Jul, Essential hypertension I10 ; Chronic kidney disease, unspecified N18.9 ; Anemia of chronic disease D63.8 ; Pure hyperglyceridemia E78.1 ; Peripheral vascular disease I73.9 ; Abnormal glucose R73.09 ; 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 ; Gastroesophageal reflux disease without esophagitis K21.9 and Allergic rhinitis J30.9 [place] [id number] [place] [address] 19175- 6078 Jun, Low back pain M54.5 [place] [address] 83747- 9023 Jun, [place] [id number] [place] [address] 78158- 7021 May, URI (upper respiratory infection) J06.9 [place] [id number] [place] [address] 29936- 9836 Apr, Essential hypertension I10 [place] [address] 08711- 0896 10 Apr, 2015 Essential hypertension I10 ; Chronic kidney disease, unspecified N18.9 ; Anemia of chronic disease D63.8 ; Pure hyperglyceridemia E78.1 ; Peripheral vascular disease I73.9 ; Abnormal glucose R73.09 ; URI ( upper respiratory infection) J06.9 ; 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 ; Gastroesophageal reflux disease without esophagitis K21.9 and Cough R05 [place] [id number] [place] [address] 72386- 8219 Mar, Flank pain R10.9 and URI (upper respiratory infection) J06.9 [place] [address] 35786- 8090 Mar, Right-sided low back pain without sciatica M54.5 and Hematuria, unspecified R31.9 [place] [address] 81299- 3701 Mar, Hypopigmentation L81.9 and Hyperpigmentation L81.9 [place] [address] 04605- 2864 Mar, [address] 50319- 7021 Mar, Acute cystitis with hematuria N30.[address] 14730- 7204 Mar, [address] 92871- 8422 Feb, Furuncle L02.92 ; Hypopigmentation L81.9 ; Hyperpigmentation L81.9 ; Urinary frequency R35.0 ; Screening for malignant neoplasm of cervix Z12.4 ; Vaginal discharge N89.8 ; Urinary, incontinence, stress female N39.3 and Vaginal irritation N89.8 [place] [address] 03240- 2518 Jan, Muscle spasm 728.85 ; Unspecified peripheral vascular disease 443.9 ; Benign essential hypertension 401.1 ; Chronic renal insufficiency 585.9 ; Chronic constipation 564.00 ; GERD (gastroesophageal reflux disease) 530.81 ; Hyperlipidemia 272.4 and Chronic leg pain 729.5 [place] [address] 05568- 6354 15 Jan, 2015 Sinusitis 473.9 [place] [address] 12551- 8890 Dec, [place] [address] 74080- 7355 Dec, Acute bronchitis 466.0 [place] [id number] [place] [address] 00614- 4536 Dec, Acute bronchitis 466.0 [place] [id number] [place] [address] 99818- 5174 Dec, Unspecified episodic mood disorder 296.90 [place] [id number] [place] [address] 12475- 5789 Dec, Visit for suture removal V58.32 [place] [id number] [place] [address] 97051- 4712 Nov, Allergic rhinitis 477.9 and Onychomycosis 110.1 [place] [id number] [place] [address] 37021- 7459 Oct, Muscle spasm 728.85 ; Benign essential hypertension 401.1 ; Chronic renal insufficiency 585.9 ; Chronic constipation 564.00 ; GERD ( gastroesophageal reflux disease) 530.81 and Hyperlipidemia 272.4 [place] [id number] [place] [address] 47128- 7290 Oct, Otalgia of left ear 388.70 [place] [id number] [place] [address] 50208- 6309 Oct, Unspecified episodic mood disorder 296.90 [place] [address] [address]- 5606 September, Unspecified episodic mood disorder 296.90 [place] [id number] [place] [address] 47172- 3224 September, Unspecified episodic mood disorder 296.90 [facility] [id number] [place] [address] [id number] September, Urinary frequency 788.41 and Constipation 564.00 [place] [address] [place] [address] 54154- 5964 Aug, [place] [id number] [place] [address]- 0197 13 Aug, 2014 [facility] [place] [facility] [address] [id number] [place] [address]- 0444 Jul, [facility] [place] [facility] [address] [id number] [place] [address]- 7646 Jul, [facility] [place] [facility] [address] [id number] [place] [address]- 8814 Jul, [facility] [place] [facility] [address] [id number] [place] [address]- 7455 Jul, [facility] [place] [facility] [address] [id number] [place] [address]- 3023 Jul, [facility] [place] [facility] [address] [id number] [place] [address]- 5300 Jul, [facility] [place] [facility] [address] [id number] [place] [address]- 4828 Jul, [facility] [place] [facility] [address] [id number] [place] [address]- 2848 Jul, [facility] [place] [facility] [address] [id number] [place] [address]- 3236 Jul, [facility] [place] [facility] [address] [id number] [place] [address]- 9201 Jul, [facility] [place] [facility] [address] [id number] [place] [address]- 2894 Jun, [facility] [place] [facility] [address] [id number] [place] [address]- 9013 Jun, [facility] [place] [facility] [address] [id number] [place] [address]- 5827 May, [facility] [place] [facility] [address] [id number] [place] [address]- 9006 May, [facility] [place] [facility] [address] [id number] [place] 2223 May, [facility] [place] [facility] [address] [id number] [place] [address]- 9456 May, [facility] [place] [facility] [address] [id number] [place] [address]- 9995 May, [facility] [place] [facility] [address] [id number] [place] [address]- 7793 May, [facility] [place] [facility] [address] [id number] [place] [address]- 3381 May, [facility] [place] [facility] [address] [id number] [place] [address]- 3451 May, [facility] [place] [facility] [address] [id number] [place] [address]- 6519 May, [facility] [place] [facility] [address] [id number] [place] [address]- 6296 May, [facility] [place] [facility] [address] [id number], [place] [address]- 4269 May, [facility] [place] [facility] [address] [id number] [place] [address]- 9408 May, [facility] [place] [facility] [address] [id number], [place] [address]- 2249 May, [facility] [place] [facility] [address] [id number], [place] [address]- 6620 Feb, [facility] [place] [facility] [address] [id number], [place] [address]- 7056 Feb, [facility] [place] [facility] [address] [id number] [place] [address]- 2197 Jan, [facility] [place] [facility] [address] [id number] [place] [address]- 1788 Jan, [facility] [place] [facility] [address] [id number], [place] [address]- 9813 18 Jan, 2014 [facility] [place] [facility] [address] [id number], [place] [address]- 2443 18 Jan, 2013 [facility] [place] [facility] [address] [id number] [place] [address]- 4412 12 Jan, 2013 [facility] [place] [facility] [address] [id number] [place] [address]- 4365 12 Jan, 2014 [facility] [place] [facility] [address] [id number] [place] [address]- 3451 12 Jan, 2014 [facility] [place] [facility] [address] [id number] [place] [address]- 7102 12 Jan, 2014 [facility] [place] [facility] [address] [id number] [place] [address]- 5282 11 Jan, 2014 [facility] [place] [facility] [address] [id number] [place] [address]- 6650 Jan, [facility] [place] [facility] [address] [id number] [place] [address]- 7722 Jan, [facility] [place] [facility] [address] [id number] [place] [address]- 8917 Jan, [facility] [place] [facility] [address] [id number] [place] [address]- 3424 Oct, [facility] [place] [facility] [address] [id number] [place] [address]- 6312 Oct, [facility] [place] [facility] [address] [id number] [place] [address]- 8568 Oct, [facility] [place] [facility] [address] [id number], [place] [address]- 4736 Oct, [facility] [place] [facility] [address] [id number] [place] [address]- 2039 Jun, [facility] [place] [facility] [address] [id number] [place] [address]- 3914 Jun, [facility] [place] [facility] [address] [facility] [id number], [place] [address]- 1087 Jun, [facility] [place] [facility] [address] [id number] [place] [address]- 8047 Jun, [facility] [address] [id number] [place] [address]- 6939 Apr, [facility] [place] [facility] [address] [id number] [place] [address]- 9147 Apr, [facility] [place] [facility] [address] [id number] [place] [address]- 1675 Feb, [facility] [address] [id number] [place] [address]- 2751 Feb, [facility] [place] [facility] [address] [id number] [place] [address]- 8708 Dec, [facility] [address] [id number] [place] [address]- 2030 Dec, [facility] [address] [id number] [place] [address]- 6774 Nov, [facility] [address] [id number] [place] [address]- 9507 Nov, [facility] [address] [id number] [place] [address]- 8518 Nov, [facility] [place] [facility] [address] [id number] [place] [address]- 6328 Oct, [facility] [place] [facility] [address] [id number] [place] [address]- 9725 September, [facility] [place] [facility] [address] [id number] [place] [address]- 5482 September, [facility] [place] [facility] [address] [id number] [place] [address]- 7606 Aug, [facility] [place] [facility] [address] [id number] [place] [address]- 8815 Aug, [facility] [place] [facility] [address] [id number] [place] [address]- 1386 Aug, [facility] [address] [id number] [place] [address]- 2493 Aug, [facility] [place] [facility] [address] [id number] [place] [address]- 9519 Aug, [facility] [address] [id number] [place] [address]- 4105 Aug, [facility] [address] [id number] [place] [address]- 7802 Jul, [facility] [address] [id number] [place] [address]- 9219 Jul, [facility] [address] [id number] [place] [address]- 4103 Jul, [facility] [address] [id number] [place] [address]- 6064 Jul, [facility] [address] [id number] [place] [address]- 4355 Jul, [facility] [address] [id number] [place] [address]- 9994 Jul, [facility] [address] [id number] [place] [address]- 2026 Jun, [facility] [address] [id number] [place] [address]- 7569 Jun, [facility] [place] [facility] [address] [id number] [place] [address]- 8655 May, [facility] [place] [facility] [address] [id number] [place] [address]- 1468 May, [facility] [place] [facility] [address] [id number] [place] [address]- 3719 Apr, [facility] [place] [facility] [address] [id number] [place] 8960 Apr, [facility] [place] [facility] [address] [id number] [place] [address]- 7782 Apr, [facility] [place] [facility] [address] [id number] [place] [address]- 2427 Apr, [facility] [place] [facility] [address] [id number] [place] [address]- 2156 Apr, [facility] [place] [facility] [address] [id number] [place] [address]- 4631 Mar, [facility] [place] [facility] [address] [id number] [place] [address]- 3540 Mar, [facility] [place] [facility] [address] [id number] [place] [address]- 1224 Mar, [facility] [place] [facility] [address] [id number] [place] [address]- 1511 Mar, [facility] [place] [facility] [address] [id number] [place] [address] Mar, [facility] [place] [facility] [address] [id number] [place] [address] Mar, [facility] [place] [facility] [address] [id number] [place] [address] Mar, [facility] [place] [facility] [address] [facility] [id number] [place] [address] Feb, [facility] [place] [facility] [address] [id number] [place] [address] Feb, [facility] [place] [facility] [address] [id number] [place] [address] Feb, [facility] [place] [facility] [address] [id number] [place] [address] Feb, [facility] [place] [facility] [address] [facility] [id number] [place] [address] Dec, [facility] [place] [facility] [address] [id number] [place] [address] Nov, [facility] [place] [facility] [address] [id number] [place] [address] 04 Nov, 2011 [facility] [place] [facility] [address] [id number] [place] [address] Oct, [facility] [place] [facility] [address] [id number] [place] [address] Oct, [facility] [place] [facility] [address] [id number] [place] [address] Oct, [facility] [place] [facility] [address] [id number] [place] [address] Oct, [facility] [place] [facility] [address] [id number] [place] [address] Oct, [facility] [place] [facility] [address] [id number] [place] [address] Oct, [facility] [place] [facility] [address] [id number] [place] [address] Oct, [facility] [place] [facility] [address] [id number] [place] [address] Aug, [facility] [place] [facility] [address] [id number] [place] [address] Jul, [facility] [place] [facility] [address] [id number] [place] [address] Jul, [facility] [place] [facility] [address] [id number] [place] [address] 15 Jul, 2011 [facility] [place] [facility] [address] [id number] [place] [address] 09 Jul, 2011 [facility] [place] [facility] [address] [id number] [place] [address] 07 Jul, 2011 [facility] [place] [facility] [address] [id number] [place] [address] Jul, [facility] [place] [facility] [address] [id number] [place] [address] Jul, [facility] [address] [id number] [place] [address] Jun, [facility] [place] [facility] [address] [id number] [place] [address] May, [facility] [address] [id number] [place] [address] May, [facility] [place] [facility] [address] [id number] [place] [address] May, [facility] [place] [facility] [address] [id number] [place] [id number] Apr, [facility] [place] [facility] [address] [id number] [place] [address] Apr, [facility] [address] [id number] [place] [address] 16 Apr, 2011 [facility] [place] [facility] [address] [id number] [place] [address] 15 Apr, 2011 [facility] [place] [facility] [address] [id number] [place] [address] Apr, [facility] [place] [facility] [address] [facility] [id number] [place] [address] 05 Apr, 2011 [facility] [place] [facility] [address] [id number] [place] [address] 29 Mar, 2011 [facility] [place] [facility] [address] [id number] [place] [address] 29 Mar, 2011 [facility] [place] [facility] [address] [id number] [place] [address] Mar, [facility] [place] [facility] [address] [id number] [place] [address] Mar, [facility] [place] [facility] [address] [id number] [place] [address] Mar, [facility] [place] [facility] [address] [id number] [place] [address] Mar, [facility] [place] [facility] [address] [id number] [place] [address] Mar, [facility] [place] [facility] [address] [id number] [place] [address] Dec, [facility] [place] [facility] [address] [id number] [place] [address] Aug, [facility] [place] [facility] [address] [id number] [place] [address] Apr, [facility] [place] [facility] [address] [id number] [place] [address] Mar, [facility] [place] [facility] [address] [id number] [place] [address] Mar, [facility] [place] [facility] [address] [id number] [place] [address] Mar, [facility] [place] [facility] [address] [id number] [place] [address] Mar, [facility] [place] [facility] [address] [id number] [place] [address] September, [facility] [place] [facility] [address] [id number] [place] [address] Mar, [facility] [place] [facility] [address] [id number] [place] [address] Feb, [facility] [place] [facility] [address] [id number] [place] [address] Oct, [facility] [place] [facility] [address] [id number] [place] [address] September, [facility] [place] [facility] [address] [id number] [place] [address] Apr, [facility] [place] [facility] [address] [id number] [place] [address] Mar, IMMUNIZATIONS No Known Immunizations SOCIAL HISTORY Never Assessed REASON FOR VISIT RLQ pain and RT flank pain. been hurting for 3 weeks. has a history of UTIS. denies dysuria. [email or web address] PLAN OF CARE Activity Details Follow Up prn Reason: VITAL SIGNS Height 65 in 2017-04-14 Weight 273.8 lbs 2017-04-14 Temperature 97.7 degrees Fahrenheit 2017-04-14 Heart Rate 84 bpm 2017-04-14 Respiratory Rate 20 2017-04-14 BMI 45.56 kg/m2 2017-04-14 Blood pressure systolic 130 mmHg 2017-04-14 Blood pressure diastolic 78 mmHg 2017-04-14 MEDICATIONS Medication Instructions Dosage Frequency Start Date End Date Duration Status Triamcinolone Acetonide 0.1 % Externally Twice a day 1 application to affected area 12h 7 Active Simvastatin 10 mg Orally Once a day 1 tablet in the evening 24h Active Symbicort 160-4.5 MCG/ACT Inhalation Twice a day sample today 1 puffs May, Active Cranberry 400 mg Orally Once a day 2 capsule with meals 24h Active Fluticasone Propionate 50 MCG/ACT Nasally Once a day 1 spray in each nostril 24h 30 Active Proventil HFA 90 mcg/actuation 2 puffs by Inhalation route 4 times per day PRN May, Active Toprol XL 200 mg Orally Once a day 1 tablets 24h Active Tramadol HCl 50 mg Orally Once a day prn severe pain 1 tablet as needed Jan, Active Amlodipine Besylate 10 mg Orally Once a day 1 tablet 24h Active Ciprofloxacin HCl 500 mg Orally Twice a day 1 tablet 12h Apr, Apr, 07 days Active Calcium 600 MG Active Vitamin C 500 mg 1 tablet by Oral route 1 time per day May, Active Neurontin 300 MG Orally at bedtime 1 capsule Active Multivitamin Active Omeprazole 40 mg Orally Once a day 1 capsule 24h Active Fish Oil 1000 MG Orally Once a day at bedtime 2 capsule Not- Taking Zofran 8 MG Orally every 8 hours, PRN 1 tablet Jun, 03 days Active Gabapentin 100 mg Orally 2 times a day 1 capsule 12h Active Lisinopril 20 mg Orally Once a day 1 tablet 24h Active RESULTS Name Result Date Reference Range UA LONG DIP (IN HOUSE) 2017-04-14 Lot # [id number] Exp date 2018 11 30 Clarity clear Color yellow Odor mild GLU negative LYNN negative KET negative SG 1.010 BLO trace pH 5.5 Protein negative URO 0.2 NIT negative MONSERRAT 1+ Lot # [id number] Exp date August 2017 PROCEDURES Procedure Date Ordered Result Body Site URINALYSIS, AUTO, W/O SCOPE Apr 14, 2017 INSTRUCTIONS MEDICATIONS ADMINISTERED No Known [...]
--- OUTSIDE RECORDS SUMMARY | 2018-02-08 02:26 | XMS REPORT ---
Author Author PHUC AMIN [facility] Address [address] [place] [address] Care Team Providers Care Corporate Strategy Intern Name Role Phone PHUC AMIN Unavailable PROBLEMS Type Condition ICD9-CM Code ELQ17-NU Code Onset Dates Condition Status SNOMED Code Problem Gastroesophageal reflux disease without esophagitis K21.9 Active 832386449 Problem Abdominal aortic aneurysm (AAA) without rupture I71.4 Active 99773869 Problem Stenosis of right renal artery I70.1 Active [id number] Problem Other chronic pain G89.29 Active 35264642 Problem Arthritis of knee M17.10 Active 401308233 Problem Prediabetes R73.03 Active 141219440 Problem Seasonal allergic rhinitis, unspecified allergic rhinitis trigger J30.2 Active 915782151 Problem Renal artery stenosis I70.1 Active 991791659 Problem PVD (peripheral vascular disease) I73.9 Active 824416107 Problem Urinary, incontinence, stress female N39.3 Active 67615824 Problem Peripheral vascular disease I73.9 Active 893715394 Problem Hepatic steatosis K76.0 Active 739867431 Problem Cervicalgia M54.2 Active 9678698238816 Problem Anemia of chronic disease D63.8 Active 847302800 Problem Dysphagia, unspecified R13.10 Active 31799720 Problem 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 906758076 Problem Chronic kidney disease, unspecified N18.9 Active 059597827 Problem Essential hypertension I10 Active 99265655 ALLERGIES No Information ENCOUNTERS Encounter Location Date Diagnosis [facility] [place] [address] [id number] [address] September, [facility] [place] [address] [facility] [id number] [address] September, Essential hypertension I10 ; Chronic kidney disease, unspecified N18.9 ; Prediabetes R73.03 ; Low back pain M54.5 ; Other chronic pain G89.29 ; Arthritis of knee M17.10 ; Pure hyperglyceridemia E78.1 ; Anemia of chronic disease D63.8 and BMI 45.0-49.9, adult Z68.42 [place] [address] [address] Aug, [place] [address] [address]- [address] Jul, Abdominal aortic aneurysm (AAA) without rupture I71.4 ; PVD (peripheral vascular disease) I73.9 ; Renal artery stenosis I70.1 and Essential hypertension I10 [place] [address] [address]- [address] May, Essential hypertension I10 ; Pure hyperglyceridemia E78.1 ; Abdominal aortic aneurysm (AAA) without rupture I71.4 ; Chronic kidney disease, unspecified N18.9 ; Gastroesophageal reflux disease without esophagitis K21.9 ; 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 ; Stenosis of right renal artery I70.1 ; Anemia of chronic disease D63.8 and Prediabetes R73.03 [place] [address] [address]- [address] May, Tinea corporis B35.4 and Viral URI J06.9 [place] [address] 18[address]- 3553 May, [place] [address] 05058- 5258 Apr, [place] [address] 62526- 3410 Apr, Cervical radiculopathy M54.12 [facility] [address] [address] Apr, Flank pain R10.9 and Acute pyelonephritis N10 [place] [address] 73091- 8838 Apr, [place] [id number] [place] [address] 08048- 7325 Mar, [place] [id number] [place] [address] 21550- 7784 Feb, Pain of right shoulder region M25.511 [place] [id number] [place] [address] 38874- 7915 Feb, History of glaucoma Z86.69 ; Vision changes H53.9 ; Abdominal aortic aneurysm (AAA) without rupture I71.4 ; Xerosis of skin L85.3 and Pain in right shoulder M25.511 [place] [id number] [place] [address] 28559- 7502 Feb, [place] [id number] [place] [address] 98317- 9062 Jan, Essential hypertension I10 ; Pure hyperglyceridemia E78.1 ; Chronic kidney disease, unspecified N18.9 ; Gastroesophageal reflux disease without esophagitis K21.9 ; 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 ; Stenosis of right renal artery I70.1 ; Anemia of chronic disease D63.8 ; Prediabetes R73.03 ; Pain of right shoulder region M25.511 and Homeless Z59.0 [place] [id number] [place] [address] 59421- 0658 Jan, Neck pain M54.2 and Seasonal allergic rhinitis, unspecified allergic rhinitis trigger J30.2 [place] [id number] [place] [address] 25717- 6112 Dec, [place] [id number] [place] [address] 41450- 9544 Dec, [place] [id number] [place] [address] 70216- 1867 Dec, Blood glucose abnormal R73.09 ; Essential [...] Prediabetes R73.03 [facility] [id number] [place] [address] 83974 -[address]359 Oct, Seasonal allergic rhinitis, unspecified allergic rhinitis trigger J30.[address] 7[address]- [address] September, Eustachian tube dysfunction, left H69.82 and Candidiasis of breast B37.[address] [address]97- 9976 Jul, Blood glucose abnormal R73.09 ; Essential hypertension I10 ; Pure hyperglyceridemia E78.1 ; Chronic kidney disease, unspecified N18.9 ; Gastroesophageal reflux disease without esophagitis K21.9 ; 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 ; Abdominal aortic aneurysm (AAA) without rupture I71.4 ; Stenosis of right renal artery I70.1 ; Anemia of chronic disease D63.8 and Acute non-recurrent maxillary sinusitis J01.[address] 56791- 3959 Jun, Acute non-recurrent maxillary sinusitis J01.00 ; Acute mucoid otitis media of left ear H65.112 ; Nausea R11.0 and Fever and chills R50.9 [place] [id number] [place] [address] 75049- 8585 May, Acute right flank pain R10.[address] 97635- 7650 Apr, Acute nasopharyngitis J00 ; Pure hyperglyceridemia E78.1 and Chronic kidney disease, unspecified N18.9 [place] [address] 19004- 6608 Apr, [place] [address] [place] [address] 450[address] Apr, Blood glucose abnormal R73.09 ; Essential hypertension I10 ; Pure hyperglyceridemia E78.1 ; Chronic kidney disease, unspecified N18.9 ; Gastroesophageal reflux disease without esophagitis K21.9 ; 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 ; Abdominal aortic aneurysm (AAA) without rupture I71.4 ; Stenosis of right renal artery I70.1 ; RUQ pain R10.11 and Anemia of chronic disease D63.8 [place] [address] 79000- 3088 Mar, Blood glucose abnormal R73.09 [place] [address] 39667- 3808 Mar, Cellulitis of right lower leg L03.115 [facility] [id number] [place] [address]249 -1409 Feb, [place] [address] 84853- 9366 Feb, Dysuria R30.0 and Upper respiratory tract infection, unspecified type J06.9 [place] [address] 55037- 3286 Jan, [place] [id number] [place] [address] 97927- 0710 Jan, [place] [id number] [place] [address] 53463- 0127 Dec, [place] [address] 06209- 4958 Dec, Anemia of chronic disease D63.8 ; Essential hypertension I10 ; Pure hyperglyceridemia E78.1 ; Chronic kidney disease, unspecified N18.9 ; Gastroesophageal reflux disease without esophagitis K21.9 ; 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 and Pain in right knee M25.561 [place] [address] 28089- 4527 Dec, Left shoulder strain, subsequent encounter S46.912D ; Urinary frequency R35.0 ; Lung nodule, solitary R91.1 ; Essential hypertension I10 and Acute cystitis without hematuria N30.00 [place] [id number] [place] [address] 96871- 6725 13 Nov, 2015 Left-sided chest wall pain R07.89 and Abnormal chest xray R93.8 [place] [id number] [place] [address] 10431- 0748 07 Nov, 2015 Pain of right lower extremity M79.604 ; Swelling of right lower extremity M79.89 ; Diarrhea, unspecified R19.7 ; Nausea with vomiting, unspecified R11.2 ; Left-sided chest wall pain R07.89 ; Chronic kidney disease, unspecified N18.9 ; Gastroesophageal reflux disease without esophagitis K21.9 and Other seasonal allergic rhinitis J30.[address] 9[address]69- 2487 September, Essential hypertension I10 ; Chronic kidney disease, unspecified N18.9 ; Anemia of chronic disease D63.8 ; Pure hyperglyceridemia E78.1 ; Peripheral vascular disease I73.9 ; Abnormal glucose R73.09 ; 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 ; Gastroesophageal reflux disease without esophagitis K21.9 ; Allergic rhinitis J30.9 and Rash R21 [place] [id number] [place] [address] 66525- 5843 Aug, Abdominal pain R10.9 and Constipation K59.00 [place] [id number] [place] [address] 23501- 0392 Jul, Injury of toe on right foot S99.921A [place] [id number] [place] [address] 34835- 3548 Jul, [place] [address] 07182- 3926 Jul, Essential hypertension I10 ; Chronic kidney disease, unspecified N18.9 ; Anemia of chronic disease D63.8 ; Pure hyperglyceridemia E78.1 ; Peripheral vascular disease I73.9 ; Abnormal glucose R73.09 ; 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 ; Gastroesophageal reflux disease without esophagitis K21.9 and Allergic rhinitis J30.9 [place] [id number] [place] [address] 48938- 1574 Jun, Low back pain M54.5 [place] [id number] [place] [address] 96948- 9426 Jun, [address] 443336- 3747 May, URI (upper respiratory infection) J06.[address] 29538- 7758 Apr, Essential hypertension I10 [address] 75015- 0932 10 Apr, 2015 Essential hypertension I10 ; Chronic kidney disease, unspecified N18.9 ; Anemia of chronic disease D63.8 ; Pure hyperglyceridemia E78.1 ; Peripheral vascular disease I73.9 ; Abnormal glucose R73.09 ; URI ( upper respiratory infection) J06.9 ; 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 ; Gastroesophageal reflux disease without esophagitis K21.9 and Cough R05 [id number] [place] [address] 60454- 7220 Mar, Flank pain R10.9 and URI (upper respiratory infection) J06.9 [address] [address] [id number] [place] [address] 70885- 0457 Mar, Right-sided low back pain without sciatica M54.5 and Hematuria, unspecified R31.[address] 13847- 8860 Mar, Hypopigmentation L81.9 and Hyperpigmentation L81.9 [address] [id number] [place] [address] 44727- 1749 Mar, [place] [address] [place] [address] 96882- 0769 Mar, Acute cystitis with hematuria N30.01 [place] [address] 46823- 2658 Mar, [place] [address] 02313- 1695 Feb, Furuncle L02.92 ; Hypopigmentation L81.9 ; Hyperpigmentation L81.9 ; Urinary frequency R35.0 ; Screening for malignant neoplasm of cervix Z12.4 ; Vaginal discharge N89.8 ; Urinary, incontinence, stress female N39.3 and Vaginal irritation N89.8 [place] [address] 90397- 9443 Jan, Muscle spasm 728.85 ; Unspecified peripheral vascular disease 443.9 ; Benign essential hypertension 401.1 ; Chronic renal insufficiency 585.9 ; Chronic constipation 564.00 ; GERD (gastroesophageal reflux disease) 530.81 ; Hyperlipidemia 272.4 and Chronic leg pain 729.5 [place] [address] 37462- 3088 Jan, Sinusitis 473.9 [place] [address] 77677- 4182 Dec, [place] [address] 25364- 3728 Dec, Acute bronchitis 466.0 [place] [address] 64699- 6683 Dec, Acute bronchitis 466.0 [place] [address] 71410- 8572 Dec, Unspecified episodic mood disorder 296.90 [place] [address] 30334- 8831 Dec, Visit for suture removal V58.32 [place] [address] 96787- 5180 Nov, Allergic rhinitis 477.9 and Onychomycosis 110.1 [place] [id number] [place] [address] 532405- 1282 Oct, Muscle spasm 728.85 ; Benign essential hypertension 401.1 ; Chronic renal insufficiency 585.9 ; Chronic constipation 564.00 ; GERD ( gastroesophageal reflux disease) 530.81 and Hyperlipidemia 272.4 [place] [id number] [place] [address] 92400095- 2065 Oct, Otalgia of left ear 388.70 [place] [id number] [place] [address] 33729- 8290 Oct, Unspecified episodic mood disorder 296.90 [place] [id number] [place] [address] 25062- 0556 September, Unspecified episodic mood disorder 296.90 [place] [id number] [place] [address] 94625- 5335 September, Unspecified episodic mood disorder 296.90 [facility] [id number] [place] [address] [id number] September, Urinary frequency 788.41 and Constipation 564.00 [place] [id number] [place] [address] 14370777- 5719 Aug, [place] [id number] [place] [address] 15866- 7946 Aug, [facility] [place] [id number] [place] [address] 93854- 1199 Jul, [facility] [place] [id number] [place] [address] 67969- 8917 Jul, [facility] [place] [id number] [place] [address] 70758- 4188 Jul, [facility] [place] [id number] [place] [address] 76765- 2832 Jul, [facility] [place] [facility] [address] [id number] [place] [address]- 4064 Jul, [facility] [place] [facility] [address] [id number] [place] [address]- 3376 Jul, [facility] [place] [facility] [address] [id number] [place] [address]- 2175 Jul, [facility] [place] [facility] [address] [id number] [place] [address]- 6670 Jul, [facility] [place] [facility] [address] [id number] [place] [address]- 8951 Jul, [facility] [place] [facility] [address] [id number] [place] [address]- 8289 Jul, [facility] [place] [facility] [address] [id number] [place] [address]- 3309 Jun, [facility] [place] [facility] [address] [id number] [place] [address]- 4614 Jun, [facility] [place] [facility] [address] [id number] [place] [address]- 2492 May, [facility] [place] [facility] [address] [id number] [place] [address]- 1619 May, [facility] [place] [facility] [address] [id number] [place] [address]- 4632 May, [facility] [place] [facility] [address] [id number] [place] [address]- 2110 May, [facility] [place] [facility] [address] [id number] [place] [address]- 1143 May, [facility] [place] [facility] [address] [id number] [place] [address]- 2383 May, [facility] [place] [facility] [address] [id number] [place] [address]- 1567 May, [facility] [place] [facility] [address] [id number] [place] [address]- 6504 May, [facility] [place] [facility] [address] [id number] [place] [address]- 4908 May, [facility] [place] [facility] [address] [id number] [place] [address]- 6919 May, [facility] [place] [facility] [address] [id number] [place] [address]- 6179 May, [facility] [place] [facility] [address] [id number] [place] [address]- 2167 May, [facility] [place] [facility] [address] [id number] [place] [address]- 6997 May, [facility] [place] [facility] [address] [id number] [place] [address]- 0475 Feb, [facility] [place] [facility] [address] [id number] [place] [address]- 5008 Feb, [facility] [place] [facility] [address] [id number], [place] [address]- 2279 20 Jan, 2014 [facility] [place] [facility] [address] [id number] [place] [address]- 2691 20 Jan, 2014 [facility] [place] [facility] [address] [id number], [place] [address]- 8110 18 Jan, 2014 [facility] [place] [facility] [address] [id number], [place] [address]- 2999 18 Jan, 2013 [facility] [place] [facility] [address] [id number], [place] [address]- 9023 12 Jan, 2013 [facility] [place] [facility] [address] [id number] [place] [address]- 6420 12 Jan, 2013 [facility] [place] [facility] [address] [id number], [place] [address]- 4887 12 Jan, 2013 [facility] [place] [facility] [address] [id number], [place] [address]- 9357 12 Jan, 2013 [facility] [place] [facility] [address] [id number] [place] [address]- 8460 11 Jan, 2014 [facility] [place] [facility] [address] [id number] [place] [address]- 6294 11 Jan, 2014 [facility] [place] [facility] [address] [id number] [place] [address]- 9196 Jan, [facility] [place] [facility] [address] [id number] [place] [address]- 1590 Jan, [facility] [place] [facility] [address] [id number] [place] [address]- 2758 Oct, [facility] [place] [facility] [address] [id number] [place] [address]- 1057 Oct, [facility] [place] [facility] [address] [facility] [id number] [place] [address]- 5514 Oct, [facility] [place] [facility] [address] [facility] [id number] [place] [address]- 9410 Oct, [facility] [place] [facility] [address] [facility] [id number] [place] [address]- 3665 Jun, [facility] [place] [facility] [address] [facility] [id number] [place] [address]- 6655 Jun, [facility] [place] [facility] [address] [facility] [id number] [place] [address]- 2550 Jun, [facility] [place] [facility] [address] [facility] [id number] [place] [address]- 1765 Jun, [facility] [place] [facility] [address] [facility] [id number], [place] [address]- 7400 Apr, [facility] [place] [facility] [address] [id number] [place] 1711 Apr, [facility] [place] [facility] [address] [facility] [id number] [place] [address]- 6790 Feb, [facility] [place] [facility] [address] [facility] [id number] [place] [address]- 0309 Feb, [facility] [address] [id number] [place] [address]- 5120 Dec, [facility] [place] [facility] [address] [id number] [place] [address]- 5625 Dec, [facility] [place] [facility] [address] [id number] [place] [address]- 1423 Nov, [facility] [place] [facility] [address] [id number] [place] [address]- 7873 Nov, [facility] [address] [id number] [place] [address]- 6287 Nov, [facility] [place] [facility] [address] [id number] [place] [address]- 9414 Oct, [facility] [place] [facility] [address] [id number] [place] [address]- 0811 September, [facility] [place] [facility] [address] [id number] [place] [address]- 2941 September, [facility] [place] [facility] [address] [id number] [place] [address]- 8564 Aug, [facility] [place] [facility] [address] [id number] [place] [address]- 1683 Aug, [facility] [place] [facility] [address] [id number] [place] [address]- 9058 Aug, [facility] [place] [facility] [address] [id number] [place] [address]- 7061 Aug, [facility] [place] [facility] [address] [id number] [place] [address]- 2412 Aug, [facility] [place] [facility] [address] [id number] [place] [address]- 7915 Aug, [facility] [place] [facility] [address] [id number] [place] [address]- 3994 Jul, [facility] [place] [facility] [address] [id number] [place] [address]- 3466 25 Jul, 2012 [facility] [address] [id number] [place] [address]- 7242 Jul, [facility] [address] [id number] [place] [address]- 5066 15 Jul, 2012 [facility] [address] [id number] [place] [address]- 5866 Jul, [facility] [address] [id number] [place] [address]- 6314 Jul, [facility] [address] [id number] [place] [address]- 8319 Jun, [facility] [address] [id number] [place] [address]- 3496 Jun, [facility] [address] [id number] [place] [address]- 2534 May, [facility] [address] [id number] [place] [address]- 8977 May, [facility] [address] [id number] [place] [address]- 0763 Apr, [facility] [address] [id number] [place] [address]- 9261 Apr, [facility] [address] [id number] [place] [address]- 4546 Apr, [facility] [address] [id number] [place] [address] 2545 Apr, [facility] [place] [facility] [address] [id number] [place] [address]- 9894 Apr, [facility] [place] [facility] [address] [id number] [place] [address]- 9211 Mar, [facility] [address] [id number] [place] [address]- 3753 Mar, [facility] [place] [facility] [address] [id number] [place] [address] Mar, [facility] [place] [facility] [address] [id number] [place] [address] Mar, [facility] [place] [facility] [address] [id number] [place] [address] Mar, [facility] [place] [facility] [address] [id number] [place] [address] Mar, [facility] [place] [facility] [address] [id number] [place] [address] Mar, [facility] [place] [facility] [address] [id number] [place] [address] Feb, [facility] [place] [facility] [address] [id number] [place] [address] Feb, [facility] [place] [facility] [address] [id number] [place] [address] Feb, [facility] [place] [facility] [address] [id number] [place] [address] Feb, [facility] [place] [facility] [address] [id number] [place] [address] Dec, [facility] [place] [facility] [address] [id number] [place] [address] Nov, [facility] [place] [facility] [address] [id number] [place] [address] Nov, [facility] [place] [facility] [address] [id number] [place] [address] Oct, [facility] [place] [facility] [address] [id number] [place] [address] Oct, [facility] [place] [facility] [address] [id number] [place] [address] Oct, [facility] [place] [facility] [address] [id number] [place] [address] Oct, [facility] [place] [facility] [address] [id number] [place] [address] Oct, [facility] [place] [facility] [address] [id number] [place] [address] Oct, [facility] [place] [facility] [address] [id number] [place] [address] Oct, [facility] [place] [facility] [address] [id number] [place] [address] Aug, [facility] [place] [facility] [address] [id number] [place] [address] Jul, [facility] [place] [facility] [address] [id number] [place] [address] Jul, [facility] [place] [facility] [address] [id number] [place] [address] Jul, [facility] [place] [facility] [address] [id number] [place] [address] Jul, [facility] [place] [facility] [address] [id number] [place] [address] Jul, [facility] [place] [facility] [address] [id number] [place] [address] Jul, [facility] [place] [facility] [address] [id number] [place] [address] Jul, [facility] [place] [facility] [address] [id number] [place] [address] Jun, [facility] [place] [facility] [address] [id number] [place] [address] May, [facility] [place] [facility] [address] [id number] [place] [address] May, [facility] [place] [facility] [address] [id number] [place] [address] May, [facility] [place] [facility] [address] [id number] [place] [address] Apr, [facility] [address] [id number] [place] [address] Apr, [facility] [place] [facility] [address] [id number] [place] [address] 16 Apr, 2011 [facility] [address] [id number] [place] [address] 15 Apr, 2011 [facility] [address] [id number] [place] [address] Apr, [facility] [address] [id number] [place] [address] Apr, [facility] [address] [id number] [place] [address] Mar, [facility] [address] [id number] [place] [address] Mar, [facility] [address] [id number] [place] [address] Mar, [facility] [address] [id number] [place] [address] Mar, [facility] [address] [id number] [place] [address] Mar, [facility] [address] [id number] [place] [address] Mar, [facility] [address] [id number] [place] [address] Mar, [facility] [place] [facility] [address] [id number] [place] [address] Dec, [facility] [place] [facility] [address] [id number] [place] [address] Aug, [facility] [address] [id number] [place] Apr, [facility] [place] [address] [id number] [address] Mar, [facility] [place] [address] [facility] [id number], [place] [address] Mar, [facility] [place] [address] [facility] [id number], [place] [address] Mar, [facility] [place] [address] [facility] [id number], [place] [address] Mar, [facility] [place] [address] [id number], [place] [address] September, [facility] [place] [id number] [address] Mar, [facility] [place] [id number] [address] Feb, [facility] [place] [id number], [place] [address] Oct, [facility] [place] [address] [id number], [place] [address] September, [facility] [place] [address] [id number], [place] [address] Apr, [facility] [place] [address] [id number], [place] [address] Mar, IMMUNIZATIONS No Known Immunizations SOCIAL HISTORY Never Assessed REASON FOR VISIT Referral PLAN OF CARE VITAL SIGNS MEDICATIONS Unknown [...]
--- OUTSIDE RECORDS SUMMARY | 2018-02-08 02:26 | XMS REPORT ---
Author Author SINTIA BOSCH [facility] eClinicalWorks Address Unknown Phone Unavailable Care Team Providers Care Classifier Tender Name Role Phone SINTIA BOSCH Unavailable Allergies [...]
--- OUTSIDE RECORDS SUMMARY | 2018-02-08 02:26 | XMS REPORT ---
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 Name Role Phone PHUC AMIN Unavailable Allergies, Adverse Reactions, Alerts Substance Reaction Event Type [place] Info Not Available Drug Allergy Niacin rash Drug Allergy Macrobid anaphylaxis Drug Allergy Iodine (IV contrast) Drug Allergy Ibuprofen (All NSAIDs) Drug Allergy Bactrim resp distress Drug Allergy Problems Problem Type Condition Code Onset Dates Condition Status Assessment Acute cystitis without hematuria N30.00 Active Assessment Essential hypertension I10 Active Problem Periapical abscess without sinus K04.7 Active Assessment Lung nodule, solitary R91.1 Active Problem Chronic kidney disease, unspecified N18.9 Active Assessment Urinary frequency R35.0 Active Problem Gastroesophageal reflux disease without esophagitis K21.9 Active Problem Essential hypertension I10 Active Problem 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 Problem Pain of right lower extremity M79.604 Active Problem Swelling of right lower extremity M79.89 Active Problem Urinary, incontinence, stress female N39.3 Active Problem Abnormal chest x-ray R93.8 Active Problem Lung nodule, solitary R91.1 Active Assessment Left shoulder strain, subsequent encounter S46.912D Active Problem Left-sided chest wall pain R07.89 Active Problem Other seasonal allergic rhinitis J30.2 Active Problem Diarrhea, unspecified R19.7 Active Problem Nausea with vomiting, unspecified R11.2 Active Problem Peripheral vascular disease I73.9 Active Problem Tachycardia, unspecified R00.0 Active Problem Cervicalgia M54.2 Active Problem Dysphagia, unspecified R13.10 Active Problem Pure hyperglyceridemia E78.1 Active Problem Anemia of chronic disease D63.8 Active Problem Abnormal glucose R73.09 Active Problem Abnormal blood chemistry R79.9 Active Medications Medication Code System Code Instructions Start Date End Date Status Dosage Multivitamin [facility] [address] Orally not defined Baclofen [facility] [address]-12 10 MG Orally 2 times a day Jan 27, 2015 1/2 tablet with food or milk Toprol XL [facility] [address]-97 200 MG Orally Once a day 1 tablet PredniSONE [facility] [address]-44 10 mg Orally twice a day Dec 09, 2015Dec 1 tablet Symbicort [facility] [address]-83 160-4.5 MCG/ACT Inhalation Twice a day sample today May 17, 2015 1 puffs Triamcinolone Acetonide [facility] [address]-55 0.1 % Externally Twice a day September 23, 2015 1 application to affected area Cipro [facility] [address]-16 250 MG Orally every 12 hrs 2015 Dec 12, 2015 1 tablet Fluticasone Propionate [facility] [address]-83 50 MCG/ACT Nasally Once a day 1 spray in each nostril Omeprazole [facility] [address]-92 40 mg Orally Once a day 1 capsule Cyclobenzaprine HCl [facility] [address]-59 10 mg Orally at hs prn 2015 1 tablet Amlodipine Besylate [facility] [address]-18 10 mg Orally Once a day 1 tablet Proventil HFA [facility] [address]-63 90 mcg/actuation 2 puff(s) inhaled 4 times a day May 22, 2014 2 puffs by Inhalation route 4 times per day PRN Lisinopril [facility] [address]-03 20 MG Orally Once a day 1 tablet Simvastatin [facility] [address]-39 10 mg Orally Once a day 1 tablet in the evening Vitamin C [facility] [address]-38 500 mg Jun 02, 2014 1 tablet by Oral route 1 time per day Calcium [facility] [address]115 600 MG Orally not defined Gabapentin [facility] 76903197435 100 MG Orally Three times a day 1 tablet Procedures Procedure Coding System Code Date Office Visit, Est Pt., Level 5 CPT-4 98902 2015 URINALYSIS, AUTO, W/O SCOPE CPT-4 65110 2015 Vital Signs Date/Time: 2015 Cardiac Monitoring Heart Rate 76 bpm Weight 265.1 lbs Height 65 in BMI 44.11 Index Blood Pressure Diastolic 78 mmHg Blood Pressure Systolic 136 mmHg Results No Known Results Summary Purpose eClinicalWorks Submission
[2018-02-08 02:27] LABS: BASOPHILS % (AUTO) 0 % (0-10); EOSINOPHILS # (AUTO) 0.2 10^3/uL (0.0-0.3); EOSINOPHILS % (AUTO) 3 % (0-10); HEMATOCRIT 35 % (35-52); HEMOGLOBIN 11.6 G/DL (11.5-16.0); LYMPHOCYTES # (AUTO) 2.1 X 10^3 (1.0-4.0); LYMPHOCYTES % (AUTO) 31 % (12-44); MEAN CORPUSCULAR HEMOGLOBIN 32 PG (25-34); MEAN CORPUSCULAR HGB CONC 33 G/DL (32-36); MEAN CORPUSCULAR VOLUME 95 FL (80-99); MEAN PLATELET VOLUME 10.9 FL (7.4-10.4); MONOCYTES # (AUTO) 0.5 X 10^3 (0.0-1.0); MONOCYTES % (AUTO) 8 % (0-12); NEUTROPHILS # (AUTO) 3.8 X 10^3 (1.8-7.8); NEUTROPHILS % (AUTO) 58 % (42-75); PLATELET COUNT 179 10^3/uL (130-400); RED BLOOD COUNT 3.68 10^6/uL (4.35-5.85); RED CELL DISTRIBUTION WIDTH 14.1 % (10.0-14.5); WHITE BLOOD COUNT 6.6 10^3/uL (4.3-11.0)
--- OUTSIDE RECORDS SUMMARY | 2018-02-08 02:27 | XMS REPORT ---
Author Author MAKENZIE CHAPMAN Organization [facility] Address [address] [place] [address] Care Team Providers Care Specialty Development Consultant Name Role Phone HERREAR CHAPMANRYAN Unavailable PROBLEMS Type Condition ICD9-CM Code IQQ98-DB Code Onset Dates Condition Status SNOMED Code Problem Stenosis of right renal artery I70.1 Active [id number] Problem Seasonal allergic rhinitis, unspecified allergic rhinitis trigger J30.2 Active 496798042 Problem Abdominal aortic aneurysm (AAA) without rupture I71.4 Active 63025548 Problem Mixed hyperlipidemia E78.2 Active 702254873 Problem Other chronic pain G89.29 Active 15920254 Problem PVD (peripheral vascular disease) I73.9 Active 762914302 Problem Prediabetes R73.03 Active 403531324 Problem Arthritis of knee M17.10 Active 335881056 Problem Renal artery stenosis I70.1 Active 702256514 Problem Peripheral vascular disease I73.9 Active 644291800 Problem Dysphagia, unspecified R13.10 Active 69646917 Problem Hepatic steatosis K76.0 Active 250948705 Problem Urinary, incontinence, stress female N39.3 Active 53203196 Problem Anemia of chronic disease D63.8 Active 392121677 Problem 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 795297236 Problem Chronic kidney disease, unspecified N18.9 Active 397438756 Problem Essential hypertension I10 Active 64228987 Problem Cervicalgia M54.2 Active 1114553849781 Problem Gastroesophageal reflux disease without esophagitis K21.9 Active 667370369 ALLERGIES Substance Reaction Event Type Date Status T[place]turna Unknown Drug Allergy Jul, Active Niacin rash Drug Allergy Jul, Active Macrobid anaphylaxis Drug Allergy Jul, Active Iodine (IV contrast) Drug Allergy Jul, Active Ibuprofen (All NSAIDs) Drug Allergy Jul, Active Bactrim resp distress Drug Allergy Jul, Active ENCOUNTERS Encounter Location Date Diagnosis [facility] [id number] [place] [address] 33159- 3230 Nov, [place] [address] 56263- 9121 September, Chronic kidney disease, unspecified N18.9 ; Essential hypertension I10 ; Mixed hyperlipidemia E78.2 and BMI 45.0-49.9, adult Z68.42 [place] [address] 28066- 7181 September, [place] [address] 11791- 0597 September, Essential hypertension I10 ; Chronic kidney disease, unspecified N18.9 ; Prediabetes R73.03 ; Low back pain M54.5 ; Other chronic pain G89.29 ; Arthritis of knee M17.10 ; Pure hyperglyceridemia E78.1 ; Anemia of chronic disease D63.8 and BMI 45.0-49.9, adult Z68.42 [place] [id number] [place] [address] 67671- 8065 Aug, [address] 37101- 5276 Jul, Abdominal aortic aneurysm (AAA) without rupture I71.4 ; PVD (peripheral vascular disease) I73.9 ; Renal artery stenosis I70.1 and Essential hypertension I10 [place] [id number] [place] [address] 35103- 3198 May, Essential hypertension I10 ; Pure hyperglyceridemia E78.1 ; Abdominal aortic aneurysm (AAA) without rupture I71.4 ; Chronic kidney disease, unspecified N18.9 ; Gastroesophageal reflux disease without esophagitis K21.9 ; 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 ; Stenosis of right renal artery I70.1 ; Anemia of chronic disease D63.8 and Prediabetes R73.03 [place] [id number] [place] [address] 59654- 0442 May, Tinea corporis B35.4 and Viral URI J06.9 [place] [id number] [place] [address] 25605- 8320 May, [place] [id number] [place] [address] 67494- 8075 Apr, [place] [id number] [place] [address] 42316- 8116 Apr, Cervical radiculopathy M54.12 [facility] [id number] [place] [address] 54291 -9157 Apr, Flank pain R10.9 and Acute pyelonephritis N10 [place] [address] 92839- 1877 Apr, [place] [id number] [place] [address] 19446- 5874 Mar, [place] [id number] [place] [address] 90626- 4147 Feb, Pain of right shoulder region M25.511 [place] [id number] [place] [address] 52471- 3912 Feb, History of glaucoma Z86.69 ; Vision changes H53.9 ; Abdominal aortic aneurysm (AAA) without rupture I71.4 ; Xerosis of skin L85.3 and Pain in right shoulder M25.511 [place] [id number] [place] [address] 75569- 1251 Feb, [place] [id number] [place] [address] 27346- 5598 13 Jan, 2017 Essential hypertension I10 ; Pure hyperglyceridemia E78.1 ; Chronic kidney disease, unspecified N18.9 ; Gastroesophageal reflux disease without esophagitis K21.9 ; 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 ; Stenosis of right renal artery I70.1 ; Anemia of chronic disease D63.8 ; Prediabetes R73.03 ; Pain of right shoulder region M25.511 and Homeless Z59.0 [place] [id number] [place] [address] 49253- 1492 Jan, Neck pain M54.2 and Seasonal allergic rhinitis, unspecified allergic rhinitis trigger J30.2 [place] [id number] [place] [address] 12300- 0066 Dec, [place] [id number] [place] [address] 67030- 1948 Dec, [place] [address] 81548- 2959 Dec, Blood glucose abnormal R73.09 ; Essential [...] infection A04.8 and Prediabetes R73.03 [facility] [id number] [place] [address] 37135 -6715 Oct, Seasonal allergic rhinitis, unspecified allergic rhinitis trigger J30.2 [place] [id number] [place] [address] 98718- 2628 September, Eustachian tube dysfunction, left H69.82 and Candidiasis of breast B37.89 [place] [id number] [place] [address] 79642- 4032 Jul, Blood glucose abnormal R73.09 ; Essential hypertension I10 ; Pure hyperglyceridemia E78.1 ; Chronic kidney disease, unspecified N18.9 ; Gastroesophageal reflux disease without esophagitis K21.9 ; 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 ; Abdominal aortic aneurysm (AAA) without rupture I71.4 ; Stenosis of right renal artery I70.1 ; Anemia of chronic disease D63.8 and Acute non-recurrent maxillary sinusitis J01.00 [place] [id number] [place] [address] 97112- 8445 Jun, Acute non-recurrent maxillary sinusitis J01.00 ; Acute mucoid otitis media of left ear H65.112 ; Nausea R11.0 and Fever and chills R50.9 [place] [id number] [place] [address] 26052- 3544 May, Acute right flank pain R10.9 [place] [id number] [place] [address] 07732- 4309 Apr, Pure hyperglyceridemia E78.1 ; Chronic kidney disease, unspecified N18.9 and Acute nasopharyngitis J00 [place] [address] 35542- 9980 Apr, [place] [address] [id number] [place] [address] 35842- 6503 Apr, Blood glucose abnormal R73.09 ; Essential hypertension I10 ; Pure hyperglyceridemia E78.1 ; Chronic kidney disease, unspecified N18.9 ; Gastroesophageal reflux disease without esophagitis K21.9 ; 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 ; Abdominal aortic aneurysm (AAA) without rupture I71.4 ; Stenosis of right renal artery I70.1 ; RUQ pain R10.11 and Anemia of chronic disease D63.8 [place] [id number] [place] [address] 36479- 4282 Mar, Blood glucose abnormal R73.09 [place] [id number] [place] [address] 51472- 6286 Mar, Cellulitis of right lower leg L03.115 [facility] [id number] [place] [address] 28686 -6551 Feb, [place] [address] 31300- 9804 Feb, Dysuria R30.0 and Upper respiratory tract infection, unspecified type J06.9 [place] [address] [address] [id number] [place] [address] 68951- 4087 Jan, [place] [address] [place] [id number] [address] 3219 Jan, [place] [id number] [place] [address] 98647- 4044 Dec, [place] [id number] [place] [address] 42194- 1742 Dec, Anemia of chronic disease D63.8 ; Essential hypertension I10 ; Pure hyperglyceridemia E78.1 ; Chronic kidney disease, unspecified N18.9 ; Gastroesophageal reflux disease without esophagitis K21.9 ; 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 and Pain in right knee M25.[address] 40091- 4553 Dec, Left shoulder strain, subsequent encounter S46.912D ; Urinary frequency R35.0 ; Lung nodule, solitary R91.1 ; Essential hypertension I10 and Acute cystitis without hematuria N30.[address] 81915- 3395 Nov, Left-sided chest wall pain R07.89 and Abnormal chest xray R93.8 [place] [id number] [place] [address] 40892- 4008 Nov, Pain of right lower extremity M79.604 ; Swelling of right lower extremity M79.89 ; Diarrhea, unspecified R19.7 ; Nausea with vomiting, unspecified R11.2 ; Left-sided chest wall pain R07.89 ; Chronic kidney disease, unspecified N18.9 ; Gastroesophageal reflux disease without esophagitis K21.9 and Other seasonal allergic rhinitis J30.2 [place] [id number] [place] [address] 57830- 8013 September, Essential hypertension I10 ; Chronic kidney disease, unspecified N18.9 ; Anemia of chronic disease D63.8 ; Pure hyperglyceridemia E78.1 ; Peripheral vascular disease I73.9 ; Abnormal glucose R73.09 ; 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 ; Gastroesophageal reflux disease without esophagitis K21.9 ; Allergic rhinitis J30.9 and Rash R21 [address] [place] [id number] [place] [address] 54445- 0667 11 Aug, 2015 Abdominal pain R10.9 and Constipation K59.[address] 03530- 0070 31 Jul, 2015 Injury of toe on right foot S99.921A [address] 75228- 4130 14 Jul, 2015 [place] [address] 27147- 8763 Jul, Essential hypertension I10 ; Chronic kidney disease, unspecified N18.9 ; Anemia of chronic disease D63.8 ; Pure hyperglyceridemia E78.1 ; Peripheral vascular disease I73.9 ; Abnormal glucose R73.09 ; 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 ; Gastroesophageal reflux disease without esophagitis K21.9 and Allergic rhinitis J30.[address] 03724- 6828 Jun, Low back pain M54.[address] 70266- 3462 Jun, [address] 48047- 8156 May, URI (upper respiratory infection) J06.[address] 62893- 4653 15 Apr, 2015 Essential hypertension I10 [address] 76879- 8943 10 Apr, 2015 Essential hypertension I10 ; Chronic kidney disease, unspecified N18.9 ; Anemia of chronic disease D63.8 ; Pure hyperglyceridemia E78.1 ; Peripheral vascular disease I73.9 ; Abnormal glucose R73.09 ; URI ( upper respiratory infection) J06.9 ; 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 ; Gastroesophageal reflux disease without esophagitis K21.9 and Cough R05 [address] [place] [address]- 3879 Mar, Flank pain R10.9 and URI (upper respiratory infection) J06.9 [place] [address] 95074- 3408 Mar, Right-sided low back pain without sciatica M54.5 and Hematuria, unspecified R31.9 [place] [address] 67641- 2882 Mar, Hypopigmentation L81.9 and Hyperpigmentation L81.9 [place] [address] 65758- 8551 Mar, [place] [address] 48981- 7421 Mar, Acute cystitis with hematuria N30.[address] 00940- 2939 Mar, [place] [address] 30020- 9457 Feb, Furuncle L02.92 ; Hypopigmentation L81.9 ; Hyperpigmentation L81.9 ; Urinary frequency R35.0 ; Screening for malignant neoplasm of cervix Z12.4 ; Vaginal discharge N89.8 ; Urinary, incontinence, stress female N39.3 and Vaginal irritation N89.8 [place] [address] 16065- 4466 Jan, Muscle spasm 728.85 ; Unspecified peripheral vascular disease 443.9 ; Benign essential hypertension 401.1 ; Chronic renal insufficiency 585.9 ; Chronic constipation 564.00 ; GERD (gastroesophageal reflux disease) 530.81 ; Hyperlipidemia 272.4 and Chronic leg pain 729.5 [place] [address] 13114- 6099 Jan, Sinusitis 473.9 [place] [address] 26759- 6070 Dec, [place] [id number] [place] [address] 48067- 8418 Dec, Acute bronchitis 466.0 [place] [id number] [place] [address] 03814- 1952 Dec, Acute bronchitis 466.0 [place] [id number] [place] [address] 69020- 8667 Dec, Unspecified episodic mood disorder 296.90 [place] [id number] [place] [address] 33282- 3593 Dec, Visit for suture removal V58.[address] 41713- 8197 Nov, Allergic rhinitis 477.9 and Onychomycosis 110.[address] 98100- 6399 Oct, Muscle spasm 728.85 ; Benign essential hypertension 401.1 ; Chronic renal insufficiency 585.9 ; Chronic constipation 564.00 ; GERD ( gastroesophageal reflux disease) 530.81 and Hyperlipidemia 272.4 [place] [id number] [place] [address] 38997- 7974 Oct, Otalgia of left ear 388.70 [place] [id number] [place] [address] 25339- 5113 Oct, Unspecified episodic mood disorder 296.90 [place] [address] [place] [id number] [place] [address] 76518- 5743 September, Unspecified episodic mood disorder 296.90 [place] [id number] [place] [address] 30010- 6752 September, Unspecified episodic mood disorder 296.90 [facility] [id number] [place] [address] [id number] September, Urinary frequency 788.41 and Constipation 564.00 [place] [address] [place] [address]- 1844 14 Aug, 2014 [facility] [place] [facility] [address] [id number] [place] [address]- 6543 13 Aug, 2014 [facility] [place] [facility] [address] [id number] [place] [address]- 0753 30 Jul, 2014 [facility] [place] [facility] [address] [id number] [place] [address]- 1895 30 Jul, 2014 [facility] [place] [facility] [address] [id number] [place] [address]- 4447 Jul, [facility] [place] [facility] [address] [id number] [place] [address]- 1467 Jul, [facility] [place] [facility] [address] [id number] [place] [address]- 4175 Jul, [facility] [place] [facility] [address] [id number] [place] [address]- 8714 Jul, [facility] [place] [facility] [address] [id number] [place] [address]- 7822 Jul, [facility] [place] [facility] [address] [id number] [place] [address]- 0128 Jul, [facility] [place] [facility] [address] [id number] [place] [address]- 9214 Jul, [facility] [place] [facility] [address] [id number] [place] [address]- 3365 Jul, [facility] [place] [facility] [address] [id number] [place] [address]- 1652 Jun, [facility] [place] [facility] [address] [id number] [place] [address]- 9175 Jun, [facility] [place] [facility] [address] [id number] [place] [address]- 6523 May, [facility] [place] [facility] [address] [id number] [place] [address]- 0999 May, [facility] [place] [facility] [address] [id number] [place] [address]- 5956 May, [facility] [place] [facility] [address] [id number] [place] [address]- 0397 May, [facility] [place] [facility] [address] [id number] [place] [address]- 1184 May, [facility] [place] [facility] [address] [id number] [place] [address]- 8045 May, [facility] [place] [facility] [address] [id number] [place] [address]- 3234 May, [facility] [place] [facility] [address] [id number] [place] [address]- 8014 May, [facility] [place] [facility] [address] [id number] [place] [address]- 9726 May, [facility] [place] [facility] [address] [id number] [place] [address]- 8243 May, [facility] [place] [facility] [address] [id number] [place] [address]- 0250 May, [facility] [place] [facility] [address] [id number] [place] [address]- 8573 May, [facility] [place] [facility] [address] [id number] [place] [address]- 2253 May, [facility] [place] [facility] [address] [id number] [place] [address]- 4641 Feb, [facility] [place] [facility] [address] [id number] [place] [address]- 0351 Feb, [facility] [place] [facility] [address] [id number] [place] [address]- 6386 Jan, [facility] [place] [facility] [address] [id number] [place] [address]- 4103 Jan, [facility] [place] [facility] [address] [id number] [place] [address]- 9936 18 Jan, 2013 [facility] [place] [facility] [address] [id number] [place] [address]- 7963 18 Jan, 2014 [facility] [place] [facility] [address] [id number] [place] [address]- 4444 12 Jan, 2014 [facility] [place] [facility] [address] [id number] [place] [address]- 9380 12 Jan, 2014 [facility] [place] [facility] [address] [id number] [place] [address]- 0117 12 Jan, 2014 [facility] [place] [facility] [address] [id number] [place] [address]- 6069 12 Jan, 2014 [facility] [place] [facility] [address] [id number] [place] [address]- 9640 Jan, [facility] [place] [facility] [address] [id number] [place] [address]- 9213 Jan, [facility] [place] [facility] [address] [id number] [place] [address]- 9648 10 Jan, 2014 [facility] [place] [facility] [address] [id number] [place] [address]- 6482 Jan, [facility] [place] [facility] [address] [id number] [place] [address]- 3771 Oct, [facility] [place] [facility] [address] [id number] [place] [address]- 5406 Oct, [facility] [place] [facility] [address] [id number] [place] [address]- 4218 Oct, [facility] [place] [facility] [address] [id number] [place] [address]- 6724 Oct, [facility] [place] [facility] [address] [id number] [place] [address]- 5988 Jun, [facility] [place] [facility] [address] [id number] [place] [address]- 7197 Jun, [facility] [place] [facility] [address] [id number] [place] [address]- 2546 Jun, [facility] [address] [id number] [place] [address]- 2750 Jun, [facility] [place] [facility] [address] [id number] [place] [address]- 2546 Apr, [facility] [place] [facility] [address] [id number] [place] [address]- 1295 Apr, [facility] [place] [facility] [address] [id number] [place] [address]- 5799 Feb, [facility] [place] [facility] [address] [id number] [place] [address]- 0332 Feb, [facility] [place] [facility] [address] [id number] [place] [address]- 4783 Dec, [facility] [place] [facility] [address] [id number] [place] [address]- 7041 Dec, [facility] [address] [id number] [place] [address]- 6884 Nov, [facility] [place] [facility] [address] [id number] [place] [address]- 6873 Nov, [facility] [place] [facility] [address] [id number] [place] [address]- 1999 Nov, [facility] [place] [facility] [address] [id number] [place] [address]- 7572 Oct, [facility] [place] [facility] [address] [id number] [place] [address]- 0970 September, [facility] [place] [facility] [address] [id number] [place] [address]- 3586 September, [facility] [place] [facility] [address] [id number] [place] [address]- 8036 Aug, [facility] [place] [facility] [address] [id number] [place] [address]- 1092 Aug, [facility] [address] [id number] [place] [address]- 9344 Aug, [facility] [place] [facility] [address] [id number] [place] [address]- 0039 Aug, [facility] [place] [facility] [address] [id number] [place] [address]- 2861 Aug, [facility] [place] [facility] [address] [id number] [place] [address]- 7410 Aug, [facility] [address] [id number] [place] [address]- 8128 Jul, [facility] [address] [id number] [place] [address]- 6901 Jul, [facility] [address] [id number] [place] [address]- 2061 Jul, [facility] [place] [facility] [address] [id number] [place] [address]- 6636 Jul, [facility] [place] [facility] [address] [id number] [place] [address]- 7909 Jul, [facility] [place] [facility] [address] [id number] [place] [address]- 4786 Jul, [facility] [place] [facility] [address] [id number] [place] [address]- 3783 Jun, [facility] [place] [facility] [address] [id number], [place] [address]- 7483 Jun, [facility] [place] [facility] [address] [id number] [place] [address]- 3745 May, [facility] [place] [facility] [address] [id number] [place] [address]- 2307 May, [facility] [place] [facility] [address] [id number] [place] [address]- 9494 Apr, [facility] [place] [facility] [address] [id number] [place] [address]- 7523 Apr, [facility] [place] [facility] [address] [id number] [place] [address]- 8926 Apr, [facility] [place] [facility] [address] [id number] [place] [address]- 1946 Apr, [facility] [place] [facility] [address] [id number] [place] [address]- 8796 Apr, [facility] [place] [facility] [address] [id number] [place] [address]- 7334 Mar, [facility] [place] [facility] [address] [id number] [place] [address]- 5035 Mar, [facility] [place] [facility] [address] [id number] [place] [address] Mar, [facility] [place] [facility] [address] [id number] [place] [address] Mar, [facility] [place] [facility] [address] [id number] [place] [address] Mar, [facility] [place] [facility] [address] [id number] [place] [address] Mar, [facility] [place] [facility] [address] [facility] [id number] [place] [address] Mar, [facility] [place] [facility] [address] [id number] [place] [address] Feb, [facility] [place] [facility] [address] [id number] [place] [address] Feb, [facility] [place] [facility] [address] [id number] [place] [address] Feb, [facility] [place] [facility] [address] [id number] [place] [address] Feb, [facility] [place] [facility] [address] [id number] [place] [address] Dec, [facility] [place] [facility] [address] [id number] [place] [address] Nov, [facility] [place] [facility] [address] [id number] [place] [address] Nov, [facility] [place] [facility] [address] [id number] [place] [address] Oct, [facility] [place] [facility] [address] [id number] [place] [address] Oct, [facility] [place] [facility] [address] [id number] [place] [address] Oct, [facility] [place] [facility] [address] [id number] [place] [address] Oct, [facility] [place] [facility] [address] [id number] [place] [address] Oct, [facility] [place] [facility] [address] [id number] [place] [address] Oct, [facility] [place] [facility] [address] [id number] [place] [address] Oct, [facility] [place] [facility] [address] [id number] [place] [address] Aug, [facility] [place] [facility] [address] [id number] [place] [address] Jul, [facility] [place] [facility] [address] [id number] [place] [address] Jul, [facility] [place] [facility] [address] [id number] [place] [address] 15 Jul, 2011 [facility] [place] [facility] [address] [id number] [place] [address] 09 Jul, 2011 [facility] [place] [facility] [address] [id number] [place] [address] 07 Jul, 2011 [facility] [place] [facility] [address] [id number] [place] [address] Jul, [facility] [address] [id number] [place] [address] Jul, [facility] [place] [facility] [address] [id number] [place] [address] Jun, [facility] [place] [facility] [address] [id number] [place] [address] May, [facility] [facility] [address] [id number] [place] [address] May, [facility] [place] [facility] [address] [id number] [place] May, [facility] [place] [facility] [address] [id number] [place] [address] Apr, [facility] [address] [id number] [place] [address] Apr, [facility] [place] [facility] [address] [id number] [place] [address] Apr, [facility] [place] [facility] [address] [id number] [place] [address] Apr, [facility] [place] [facility] [address] [facility] [id number] [place] [address] Apr, [facility] [place] [facility] [address] [id number] [place] [address] Apr, [facility] [place] [facility] [address] [id number] [place] [address] Mar, [facility] [place] [facility] [address] [id number] [place] [address] Mar, [facility] [place] [facility] [address] [id number] [place] [address] Mar, [facility] [place] [facility] [address] [id number] [place] [address] Mar, [facility] [place] [facility] [address] [id number] [place] [address] Mar, [facility] [address] [id number] [place] [address] Mar, [facility] [place] [facility] [address] [id number] [place] [address] Mar, [facility] [address] [id number] [place] [address] Dec, [facility] [place] [facility] [address] [id number] [place] [address] Aug, [facility] [address] [id number] [place] [address] Apr, [facility] [address] [id number] [place] [address] Mar, [facility] [address] [id number] [place] [address] Mar, [facility] [address] [id number] [place] [address] Mar, [facility] [address] [id number] [place] [address] Mar, [facility] [address] [id number] [place] [address] September, [facility] [address] [id number] [place] [address] Mar, [facility] [address] [id number] [place] [address] Feb, [facility] [place] [facility] [address] [id number] [place] [address] Oct, [facility] [address] [id number] [place] [address] September, [facility] [facility] [address] [id number] [place] [address] Apr, [facility] [address] [facility] [id number] [place] [address] Mar, IMMUNIZATIONS No Known Immunizations SOCIAL HISTORY Never Assessed REASON FOR VISIT Tachycardia, stenosis of right renal artery, AAA, PT has leg and feet swelling with occassional chest pain that varies the time of day or activity-Miranda SONI PLAN OF CARE Activity Details Follow Up @ [facility] office Reason: VITAL SIGNS Height 65 in 2017-07-13 Heart Rate 74 bpm 2017-07-13 Respiratory Rate 20 2017-07-13 Blood pressure systolic 142 mmHg 2017-07-13 Blood pressure diastolic 78 mmHg 2017-07-13 MEDICATIONS Medication Instructions Dosage Frequency Start Date End Date Duration Status Zofran 8 MG Orally every 8 hours, PRN 1 tablet Jun, 03 days Active Multivitamin Active Lisinopril 20 mg Orally Once a day 1 tablet 24h Active Triamcinolone Acetonide 0.1 % Externally Twice a day 1 application to affected area 12h 7 Active Fluticasone Propionate 50 MCG/ACT Nasally Once a day 1 spray in each nostril 24h 30 Active Amlodipine Besylate 10 mg Orally Once a day 1 tablet 24h Active Tramadol HCl 50 mg Orally Once a day prn severe pain 1 tablet as needed Jan, Active Neurontin 300 MG Orally at bedtime 1 capsule Active Omeprazole 40 mg Orally Once a day 1 capsule 24h Active Gabapentin 100 mg Orally 2 times a day 1 capsule 12h Active Toprol XL 200 mg Orally Once a day 1 tablets 24h Active Simvastatin 10 mg Orally Once a day 1 tablet in the evening 24h Active Vitamin C 500 mg 1 tablet by Oral route 1 time per day May, Active Fish Oil 1000 MG Orally Once a day at bedtime 2 capsule Not- Taking Tessalon Perles 100 mg Orally Three times a day 1 capsule as needed 8h May, Not-Taking Proventil HFA 90 mcg/actuation 2 puffs by Inhalation route 4 times per day PRN May, Active Cranberry 400 mg Orally Once a day 2 capsule with meals 24h Not- Taking Symbicort 160-4.5 MCG/ACT Inhalation Twice a day sample today 1 puffs May, Active Calcium 600 MG Active Stress Tab NF Active RESULTS No Results PROCEDURES No Known [...]
--- OUTSIDE RECORDS SUMMARY | 2018-02-08 02:28 | XMS REPORT ---
Author Author PHUC AMIN [facility] Address [address] [place] [address] Care Team Providers Care Human Factors Engineer Name Role Phone PHUC AMIN Unavailable PROBLEMS Type Condition ICD9-CM Code [id number] Code Onset Dates Condition Status SNOMED Code Assessment Blood glucose abnormal R73.09 Mar, Active 680891261 Problem Abnormal chest x-ray R93.8 Active 322592821 Problem Essential hypertension I10 Active 87427040 Problem Urinary, incontinence, stress female N39.3 Active 38422497 Problem Other seasonal allergic rhinitis J30.2 Active 752096560 Problem Cervicalgia M54.2 Active 6689797677202 Problem Left-sided chest wall pain R07.89 Active 096379536 Problem Diarrhea, unspecified R19.7 Active 23752370 Problem Nausea with vomiting, unspecified R11.2 Active 9135154 Problem Abdominal aortic aneurysm (AAA) without rupture I71.4 Active 30681534 Problem Stenosis of right renal artery I70.1 Active 69598395738791957 Problem Tachycardia, unspecified R00.0 Active 6420183 Problem Peripheral vascular disease I73.9 Active 675569097 Problem Dysphagia, unspecified R13.10 Active 47437267 Problem Pain of right lower extremity M79.604 Active 267261873 Problem Swelling of right lower extremity M79.89 Active 862773168 Problem Pain in right knee M25.561 Active 80490225 Problem Lung nodule, solitary R91.1 Active 631416594 Problem Pure hyperglyceridemia E78.1 Active 719674862 Problem Anemia of chronic disease D63.8 Active 928663098 Problem Abnormal glucose R73.09 Active 417693823 Problem Abnormal blood chemistry R79.9 Active 930100815 Problem Gastroesophageal reflux disease without esophagitis K21.9 Active 944625959 Problem 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
--- OUTSIDE RECORDS SUMMARY | 2018-02-08 02:28 | XMS REPORT ---
Author Author PHUC AMIN [facility] Address [address] [place] [address] Care Team Providers Care Certified Procedural Coder Name Role Phone PHUC AMIN Unavailable PROBLEMS Type Condition ICD9-CM Code [id number] Code Onset Dates Condition Status SNOMED Code Problem Hepatic steatosis K76.0 Active 786714901 Problem Abnormal chest x-ray R93.8 Active 312716639 Problem Urinary, incontinence, stress female N39.3 Active 18608900 Problem Cervicalgia M54.2 Active 3151697476058 Problem Dysphagia, unspecified R13.10 Active 73044883 Problem Nausea with vomiting, unspecified R11.2 Active 5279823 Problem Peripheral vascular disease I73.9 Active 655538204 Problem Diarrhea, unspecified R19.7 Active 06879277 Problem Tachycardia, unspecified R00.0 Active 4423817 Problem Swelling of right lower extremity M79.89 Active 870706496 Problem Lung nodule, solitary R91.1 Active 774711892 Problem Pain of right lower extremity M79.604 Active 101403985 Problem H. pylori infection A04.8 Active 390694143 Problem Prediabetes R73.03 Active 369714315 Problem Pure hyperglyceridemia E78.1 Active 142485953 Problem Abnormal blood chemistry R79.9 Active 843773561 Problem Abnormal glucose R73.09 Active 335334091 Problem Stenosis of right renal artery I70.1 Active 30628258290971450 Problem Pain in right knee M25.561 Active 32247991 Problem Seasonal allergic rhinitis, unspecified allergic rhinitis trigger J30.2 Active 480895443 Problem Abdominal aortic aneurysm (AAA) without rupture I71.4 Active 57074083 Problem Chronic kidney disease, unspecified N18.9 Active 284132869 Problem Gastroesophageal reflux disease without esophagitis K21.9 Active 885379830 Problem Anemia of chronic disease D63.8 Active 595328592 Problem Periapical abscess without sinus K04.7 Active 125263788 Problem Other seasonal allergic rhinitis J30.2 Active 005972067 Problem Left-sided chest wall pain R07.89 Active 379310093 Problem 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
--- OUTSIDE RECORDS SUMMARY | 2018-02-08 02:28 | XMS REPORT ---
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 554879402 Problem Essential hypertension I10 Active 90125994 Problem Gastroesophageal reflux disease without esophagitis K21.9 Active 327168082 Problem PVD (peripheral vascular disease) I73.9 Active 674769894 Problem Renal artery stenosis I70.1 Active 513807934 Problem Abdominal aortic aneurysm (AAA) without rupture I71.4 Active 20135720 Problem Stenosis of right renal artery I70.1 Active [id number] Problem Prediabetes R73.03 Active 439989838 Problem Seasonal allergic rhinitis, unspecified allergic rhinitis trigger J30.2 Active 129978909 Problem Hepatic steatosis K76.0 Active 244396313 Problem Peripheral vascular disease I73.9 Active 795792926 Problem Dysphagia, unspecified R13.10 Active 27289483 Problem Anemia of chronic disease D63.8 Active 266918167 Problem Chronic kidney disease, unspecified N18.9 Active 463555293 Problem Urinary, incontinence, stress female N39.3 Active 44778116 Problem Cervicalgia M54.2 Active [id number] ALLERGIES No Information ENCOUNTERS Encounter Location Date Diagnosis [facility] [address] [facility] [id number] [address] September, [facility] [address] [id number] [address] Aug, [facility] [address] [facility] [id number] [address] Jul, Abdominal aortic aneurysm (AAA) without rupture I71.4 ; PVD (peripheral vascular disease) I73.9 ; Renal artery stenosis I70.1 and Essential hypertension I10 [place] [address] [address] 30 May, 2017 Essential hypertension I10 ; Pure hyperglyceridemia E78.1 ; Abdominal aortic aneurysm (AAA) without rupture I71.4 ; Chronic kidney disease, unspecified N18.9 ; Gastroesophageal reflux disease without esophagitis K21.9 ; 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 ; Stenosis of right renal artery I70.1 ; Anemia of chronic disease D63.8 and Prediabetes R73.03 [place] [address] [address]- [address] May, Tinea corporis B35.4 and Viral URI J06.9 [place] [address] [address]- 1066 May, [place] [address] [address]- 4[address] Apr, [place] [address] [address]- [address] Apr, Cervical radiculopathy M54.12 [facility] [address] [address] 09 Apr, 2017 Flank pain R10.9 and Acute pyelonephritis N10 [place] [address] [address]- 8[address] Apr, [place] [address] [address]- 68[address] Mar, [place] [address] [address]- [address] 31 Feb, 2017 Pain of right shoulder region M25.511 [place] [address] [address]- 4[address] 25 Feb, 2017 History of glaucoma Z86.69 ; Vision changes H53.9 ; Abdominal aortic aneurysm (AAA) without rupture I71.4 ; Xerosis of skin L85.3 and Pain in right shoulder M25.511 [place] [address] [place] [id number] [place] [address]- 2606 Feb, [place] [address] [address]- 56[address] Jan, Essential hypertension I10 ; Pure hyperglyceridemia E78.1 ; Chronic kidney disease, unspecified N18.9 ; Gastroesophageal reflux disease without esophagitis K21.9 ; 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 ; Stenosis of right renal artery I70.1 ; Anemia of chronic disease D63.8 ; Prediabetes R73.03 ; Pain of right shoulder region M25.511 and Homeless Z59.0 [place] [address] [place] [id number] [place] [address] 18334- 5083 Jan, Neck pain M54.2 and Seasonal allergic rhinitis, unspecified allergic rhinitis trigger J30.2 [place] [address] [place] [id number] [place] [address] 34128- 1566 Dec, [place] [address] [place] [id number] [place] [address] 31987- 2161 Dec, [place] [address] [place] [id number] [place] [address] 58304- 1162 Dec, Blood glucose abnormal R73.09 ; Essential [...] infection A04.8 and Prediabetes R73.03 [facility] [place] [address] [place] [id number] [place] [address] -3152 Oct, Seasonal allergic rhinitis, unspecified allergic rhinitis trigger J30.2 [place] [address] [place] [id number] [place] [address] 37905- 7273 September, Eustachian tube dysfunction, left H69.82 and Candidiasis of breast B37.[address] [address]- 4270 Jul, Blood glucose abnormal R73.09 ; Essential hypertension I10 ; Pure hyperglyceridemia E78.1 ; Chronic kidney disease, unspecified N18.9 ; Gastroesophageal reflux disease without esophagitis K21.9 ; 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 ; Abdominal aortic aneurysm (AAA) without rupture I71.4 ; Stenosis of right renal artery I70.1 ; Anemia of chronic disease D63.8 and Acute non-recurrent maxillary sinusitis J01.[address] [address]87- 1090 Jun, Acute non-recurrent maxillary sinusitis J01.00 ; Acute mucoid otitis media of left ear H65.112 ; Nausea R11.0 and Fever and chills R50.[address] 24742- 5009 May, Acute right flank pain R10.[address] 63230- 2467 Apr, Acute nasopharyngitis J00 ; Pure hyperglyceridemia E78.1 and Chronic kidney disease, unspecified N18.[address] [address]41- 1916 Apr, [address] 92391- 5489 Apr, Blood glucose abnormal R73.09 ; Essential hypertension I10 ; Pure hyperglyceridemia E78.1 ; Chronic kidney disease, unspecified N18.9 ; Gastroesophageal reflux disease without esophagitis K21.9 ; 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 ; Abdominal aortic aneurysm (AAA) without rupture I71.4 ; Stenosis of right renal artery I70.1 ; RUQ pain R10.11 and Anemia of chronic disease D63.[address] 026[address]- 0801 Mar, Blood glucose abnormal R73.09 [facility] [address]65[address] [address] Mar, Cellulitis of right lower leg L03.115 [facility] [address]65[address] [address] Feb, [facility] [address] [place] [id number] [place] [address] 07734- 7938 Feb, Dysuria R30.0 and Upper respiratory tract infection, unspecified type J06.9 [facility] [address] [place] [id number] [place] [address] 25034- 3025 Jan, [place] [address] [place] [id number] [place] [address] 72292- 9176 Jan, [facility] [address] [place] [id number] [place] [address] 77976- 6076 Dec, [facility] [address] [place] [id number] [place] [address] 56526- 7413 Dec, Anemia of chronic disease D63.8 ; Essential hypertension I10 ; Pure hyperglyceridemia E78.1 ; Chronic kidney disease, unspecified N18.9 ; Gastroesophageal reflux disease without esophagitis K21.9 ; 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 and Pain in right knee M25.561 [place] [address] [place] [address] 28258- 6392 Dec, Left shoulder strain, subsequent encounter S46.912D ; Urinary frequency R35.0 ; Lung nodule, solitary R91.1 ; Essential hypertension I10 and Acute cystitis without hematuria N30.00 [place] [address] [place] [address] 54928- 0701 Nov, Left-sided chest wall pain R07.89 and Abnormal chest xray R93.8 [place] [address] [address] Nov, Pain of right lower extremity M79.604 ; Swelling of right lower extremity M79.89 ; Diarrhea, unspecified R19.7 ; Nausea with vomiting, unspecified R11.2 ; Left-sided chest wall pain R07.89 ; Chronic kidney disease, unspecified N18.9 ; Gastroesophageal reflux disease without esophagitis K21.9 and Other seasonal allergic rhinitis J30.2 [place] [address] 19410- 0411 September, Essential hypertension I10 ; Chronic kidney disease, unspecified N18.9 ; Anemia of chronic disease D63.8 ; Pure hyperglyceridemia E78.1 ; Peripheral vascular disease I73.9 ; Abnormal glucose R73.09 ; 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 ; Gastroesophageal reflux disease without esophagitis K21.9 ; Allergic rhinitis J30.9 and Rash R21 [address] 54143- 1074 Aug, Abdominal pain R10.9 and Constipation K59.[address] 76179- 2397 Jul, Injury of toe on right foot S99.921A [address] 62691- 9810 Jul, [address] 89194- 1923 Jul, Essential hypertension I10 ; Chronic kidney disease, unspecified N18.9 ; Anemia of chronic disease D63.8 ; Pure hyperglyceridemia E78.1 ; Peripheral vascular disease I73.9 ; Abnormal glucose R73.09 ; 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 ; Gastroesophageal reflux disease without esophagitis K21.9 and Allergic rhinitis J30.9 [place] [address] 51194- 2491 Jun, Low back pain M54.[address] 51338- 2701 Jun, [address] 19745- 5319 May, URI (upper respiratory infection) J06.9 [place] [address] 76078- 5356 15 Apr, 2015 Essential hypertension I10 [place] [address] 50677- 7557 10 Apr, 2015 Essential hypertension I10 ; Chronic kidney disease, unspecified N18.9 ; Anemia of chronic disease D63.8 ; Pure hyperglyceridemia E78.1 ; Peripheral vascular disease I73.9 ; Abnormal glucose R73.09 ; URI ( upper respiratory infection) J06.9 ; 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 ; Gastroesophageal reflux disease without esophagitis K21.9 and Cough R05 [place] [address] 19994- 8107 Mar, Flank pain R10.9 and URI (upper respiratory infection) J06.9 [place] [address] 08063- 4662 Mar, Right-sided low back pain without sciatica M54.5 and Hematuria, unspecified R31.9 [place] [address] 04777- 1276 Mar, Hypopigmentation L81.9 and Hyperpigmentation L81.9 [place] [address] 90352- 6909 Mar, [place] [address] 12749- 9974 Mar, Acute cystitis with hematuria N30.01 [place] [address] 43416- 0122 Mar, [address] 82120- 0424 Feb, Furuncle L02.92 ; Hypopigmentation L81.9 ; Hyperpigmentation L81.9 ; Urinary frequency R35.0 ; Screening for malignant neoplasm of cervix Z12.4 ; Vaginal discharge N89.8 ; Urinary, incontinence, stress female N39.3 and Vaginal irritation N89.8 [place] [address] 95892- 1143 Jan, Muscle spasm 728.85 ; Unspecified peripheral vascular disease 443.9 ; Benign essential hypertension 401.1 ; Chronic renal insufficiency 585.9 ; Chronic constipation 564.00 ; GERD (gastroesophageal reflux disease) 530.81 ; Hyperlipidemia 272.4 and Chronic leg pain 729.5 [place] [address] 73120- 8799 Jan, Sinusitis 473.9 [place] [address] 46816- 3958 Dec, [place] [address] 78598- 2884 Dec, Acute bronchitis 466.[address] 43483- 2888 Dec, Acute bronchitis 466.0 [place] [address] 26942- 2985 Dec, Unspecified episodic mood disorder 296.90 [place] [address] [place] [id number] [place] [address] 07104- 5077 Dec, Visit for suture removal V58.32 [place] [address] 04754- 2266 Nov, Allergic rhinitis 477.9 and Onychomycosis 110.1 [place] [address] [place] [id number] [place] [address] 70207- 4312 Oct, Muscle spasm 728.85 ; Benign essential hypertension 401.1 ; Chronic renal insufficiency 585.9 ; Chronic constipation 564.00 ; GERD ( gastroesophageal reflux disease) 530.81 and Hyperlipidemia 272.4 [place] [address] [place] [id number] [place] [address] 00702- 2719 Oct, Otalgia of left ear 388.70 [facility] [address] [address]- 3916 Oct, Unspecified episodic mood disorder 296.90 [facility] [address] [place] [id number] [place] [address] 34877- 1756 September, Unspecified episodic mood disorder 296.90 [facility] [address] [place] [id number] [place] [address] 55598- 2386 September, Unspecified episodic mood disorder 296.90 [facility] [address] [id number] [id number] September, Urinary frequency 788.41 and Constipation 564.00 [facility] [address] [place] [id number] [place] [address] 56700- 4366 Aug, [facility] [address] [place] [id number] [place] [address] 00823- 7267 Aug, [facility] [address] [place] [id number] [place] [address] 23279- 2914 Jul, [facility] [address], [place] [address]- 5298 Jul, [facility] [address], [place] [address]- 9254 Jul, [facility] [address], [place] [address]- 5481 Jul, [facility] [address], [place] [address]- 3428 Jul, [facility] [address], [place] [address]- 4975 Jul, [facility] [address], [place] [address]- 1046 Jul, [facility] [address], [place] [address]- 0366 Jul, [facility] [address] [place] [id number] [place] [address] [place] [address]- 1371 Jul, [facility] [place] [facility] [address] [id number] [place] [address]- 4508 Jul, [facility] [place] [facility] [address] [id number] [place] [address]- 8165 Jun, [facility] [place] [facility] [address] [id number] [place] [address]- 2108 Jun, [facility] [place] [facility] [address] [id number] [place] [address]- 6766 May, [facility] [place] [facility] [address] [id number] [place] [address]- 8120 May, [facility] [place] [facility] [address] [id number] [place] [address]- 2496 May, [facility] [place] [facility] [address] [id number] [place] [address]- 4705 May, [facility] [place] [facility] [address] [id number] [place] [address]- 8734 May, [facility] [place] [facility] [address] [id number] [place] [address]- 0197 May, [facility] [place] [facility] [address] [id number] [place] [address]- 5248 May, [facility] [place] [facility] [address] [id number] [place] [address]- 9006 May, [facility] [place] [facility] [address] [id number] [place] [address]- 9766 May, [facility] [place] [facility] [address] [id number] [place] [address]- 5540 May, [facility] [place] [facility] [address] [id number] [place] [address]- 6344 May, [facility] [place] [facility] [address] [id number] [place] [address]- 3675 May, [facility] [place] [facility] [address] [id number] [place] [address]- 0028 05 May, 2014 [facility] [place] [facility] [address] [id number] [place] [address]- 8011 Feb, [facility] [place] [facility] [address] [id number] [place] [address]- 2854 07 Feb, 2014 [facility] [place] [facility] [address] [id number] [place] [address]- 3637 20 Jan, 2013 [facility] [place] [facility] [address] [id number] [place] [address]- 0957 20 Jan, 2013 [facility] [place] [facility] [address] [id number] [place] [address]- 0522 18 Jan, 2013 [facility] [place] [facility] [address] [id number] [place] [address]- 8293 18 Jan, 2013 [facility] [place] [facility] [address] [id number] [place] [address]- 4326 12 Jan, 2013 [facility] [place] [facility] [address] [id number] [place] [address]- 9222 12 Jan, 2013 [facility] [place] [facility] [address] [id number] [place] [address]- 2883 12 Jan, 2013 [facility] [place] [facility] [address] [id number] [place] [address]- 5365 12 Jan, 2013 [facility] [place] [facility] [address] [id number] [place] [address]- 2543 11 Jan, 2013 [facility] [place] [facility] [address] [id number] [place] [address]- 2541 11 Jan, 2013 [facility] [place] [facility] [address] [id number] [place] [address]- 2541 10 Jan, 2013 [facility] [place] [facility] [address] [id number] [place] [address]- 2548 10 Jan, 2013 [facility] [place] [facility] [address] [id number] [place] [address]- 7346 Oct, [facility] [place] [facility] [address] [id number] [place] [address]- 7762 Oct, [facility] [place] [facility] [address] [id number] [place] [address]- 3051 Oct, [facility] [place] [facility] [address] [facility] [id number] [place] [address]- 8204 Oct, [facility] [place] [facility] [address] [id number] [place] [address]- 5490 Jun, [facility] [place] [facility] [address] [id number] [place] [address]- 6981 Jun, [facility] [place] [facility] [address] [facility] [id number] [place] [address]- 1213 Jun, [facility] [place] [facility] [address] [facility] [id number] [place] [address]- 6285 Jun, [facility] [place] [facility] [address] [facility] [id number] [place] [address]- 7821 Apr, [facility] [place] [facility] [address] [facility] [id number] [place] [address]- 9734 Apr, [facility] [place] [facility] [address] [facility] [id number] [place] [address]- 8247 Feb, [facility] [place] [facility] [address] [facility] [id number] [place] [address]- 6266 Feb, [facility] [place] [facility] [address] [facility] [id number] [place] [address]- 9254 Dec, [facility] [place] [facility] [address] [id number] [place] [address]- 9760 Dec, [facility] [place] [facility] [address] [facility] [id number] [place] [address]- 7016 Nov, [facility] [place] [facility] [address] [facility] [id number] [place] [address]- 7107 Nov, [facility] [place] [facility] [address] [id number] [place] [address]- 5813 10 Nov, 2012 [facility] [address] [id number] [place] [address]- 5785 Oct, [facility] [place] [facility] [address] [id number] [place] [address]- 5066 September, [facility] [address] [id number] [place] [address]- 1612 September, [facility] [address] [id number] [place] [address]- 4865 Aug, [facility] [address] [id number] [place] [address]- 4839 Aug, [facility] [address] [id number] [place] [address]- 9294 Aug, [facility] [address] [id number] [place] [address]- 9419 Aug, [facility] [address] [id number] [place] [address]- 1401 Aug, [facility] [address] [id number] [place] [address]- 9427 Aug, [facility] [address] [id number] [place] [address]- 9607 Jul, [facility] [place] [facility] [address] [id number] [place] [address]- 5162 Jul, [facility] [address] [id number] [place] [address]- 5813 21 Jul, 2012 [facility] [place] [facility] [address] [id number] [place] [address]- 0758 15 Jul, 2012 [facility] [place] [facility] [address] [id number] [place] [address]- 3636 11 Jul, 2012 [facility] [place] [facility] [address] [id number] [place] [address]- 7324 Jul, [facility] [place] [facility] [address] [id number] [place] [address]- 8398 Jun, [facility] [place] [facility] [address] [id number] [place] [address]- 6746 Jun, [facility] [place] [facility] [address] [id number] [place] [address]- 6306 May, [facility] [place] [facility] [address] [id number] [place] [address]- 2061 May, [facility] [place] [facility] [address] [id number] [place] [address]- 3176 Apr, [facility] [place] [facility] [address] [id number] [place] [address]- 2591 Apr, [facility] [place] [facility] [address] [id number] [place] [address]- 3819 Apr, [facility] [place] [facility] [address] [id number] [place] [address]- 7337 Apr, [facility] [place] [facility] [address] [id number] [place] [address]- 9836 Apr, [facility] [place] [facility] [address] [id number] [place] [address]- 1549 Mar, [facility] [place] [facility] [address] [id number] [place] [address]- 3115 Mar, [facility] [place] [facility] [address] [id number] [address] 2546 Mar, [facility] [place] [facility] [address] [id number] [place] [address] 2546 Mar, [facility] [place] [facility] [address] [id number] [place] [address] Mar, [facility] [place] [facility] [address] [id number] [place] [address] Mar, [facility] [place] [facility] [address] [id number] [place] [address] Mar, [facility] [place] [facility] [address] [id number] [place] [address] Feb, [facility] [place] [facility] [address] [id number] [place] [address] Feb, [facility] [place] [facility] [address] [id number] [place] [address] Feb, [facility] [place] [facility] [address] [id number] [place] [address] Feb, [facility] [place] [facility] [address] [id number] [place] [address] Dec, [facility] [place] [facility] [address] [id number] [place] [address] Nov, [facility] [place] [facility] [address] [id number] [place] [address] Nov, [facility] [place] [facility] [address] [id number] [place] [address] Oct, [facility] [place] [facility] [address] [id number] [place] [address] Oct, [facility] [place] [facility] [address] [id number] [place] [address] Oct, [facility] [place] [facility] [address] [id number] [place] [address] Oct, [facility] [place] [facility] [address] [id number] [place] [address] Oct, [facility] [place] [facility] [address] [id number] [place] [address] Oct, [facility] [place] [facility] [address] [id number] [place] [address] Oct, [facility] [place] [facility] [address] [id number] [place] [address] Aug, [facility] [place] [facility] [address] [id number] [place] [address] Jul, [facility] [address] [id number] [place] [address] 26 Jul, 2011 [facility] [address] [id number] [place] [address] Jul, [facility] [address] [id number] [place] [address] Jul, [facility] [address] [id number] [place] [address] Jul, [facility] [address] [id number] [place] [address] Jul, [facility] [address] [id number] [place] [address] Jul, [facility] [address] [id number] [place] [address] Jun, [facility] [address] [id number] [place] [address] May, [facility] [address] [id number] [place] [address] May, [facility] [address] [id number] [place] [address] May, [facility] [address] [address] [id number] [place] [address] Apr, [facility] [place] [facility] [address] [id number] [place] [address] Apr, [facility] [place] [facility] [address] [id number] [place] [address] 16 Apr, 2011 [facility] [place] [facility] [address] [id number] [place] [address] Apr, [facility] [place] [facility] [address] [id number], [place] [address] Apr, [facility] [place] [facility] [address] [id number] [place] [address] Apr, [facility] [place] [facility] [address] [id number] [place] [address] Mar, [facility] [place] [facility] [address] [id number] [place] [address] Mar, [facility] [place] [facility] [address] [id number] [place] [address] Mar, [facility] [place] [facility] [address] [id number] [place] [address] Mar, [facility] [place] [facility] [address] [id number] [place] [address] Mar, [facility] [place] [facility] [address] [id number] [place] [address] Mar, [facility] [place] [facility] [address] [id number] [place] [address] Mar, [facility] [place] [facility] [address] [id number], [place] [address] Dec, [facility] [place] [facility] [address] [id number] [place] [address] Aug, [facility] [place] [facility] [address] [id number], [place] [address] Apr, [facility] [place] [facility] [address] [id number], [place] [address] Mar, [facility] [place] [facility] [address] [id number] [place] [address] Mar, [facility] [place] [facility] [address] [id number] [place] [address] Mar, [facility] [place] [facility] [address] [id number] [place] [address] Mar, [facility] [place] [facility] [address] [id number] [id number] 17 Sep, 2009 [facility] [address] [id number] [address] Mar, [facility] [address] [id number] [address] Feb, [facility] [address] [id number] [address] Oct, [facility] [id number] [address] September, [facility] [address] [id number], [place] [address] Apr, [facility] [address] [id number] [address] Mar, IMMUNIZATIONS No Known Immunizations SOCIAL HISTORY Never Assessed REASON FOR VISIT Requests return call PLAN OF CARE VITAL SIGNS MEDICATIONS Unknown [...]
--- OUTSIDE RECORDS SUMMARY | 2018-02-08 02:28 | XMS REPORT ---
Author Author RAFAT HAGER Organization [facility] Address [address] [place] [address] Care Team Providers Care Manager Operational Name Role Phone RAFAT HAGER Unavailable PROBLEMS Type Condition ICD9-CM Code DSA01-ZS Code Onset Dates Condition Status SNOMED Code Problem Abnormal chest x-ray R93.8 Active 207694369 Problem Hepatic steatosis K76.0 Active 740502166 Problem Abnormal glucose R73.09 Active 991964821 Problem Dysphagia, unspecified R13.10 Active 42876652 Problem Tachycardia, unspecified R00.0 Active 9341529 Problem Pain of right lower extremity M79.604 Active 463885990 Problem Chronic kidney disease, unspecified N18.9 Active 156955428 Problem Left-sided chest wall pain R07.89 Active 686853166 Problem Cervicalgia M54.2 Active 0779803479016 Problem Other seasonal allergic rhinitis J30.2 Active 173640526 Problem Lung nodule, solitary R91.1 Active 342445530 Problem Swelling of right lower extremity M79.89 Active 802809434 Problem H. pylori infection A04.8 Active 005234459 Problem Prediabetes R73.03 Active 565480815 Problem Anemia of chronic disease D63.8 Active 065554483 Problem Pure hyperglyceridemia E78.1 Active 837878321 Problem Periapical abscess without sinus K04.7 Active 771365182 Problem Stenosis of right renal artery I70.1 Active 21996422638724547 Problem Pain in right knee M25.561 Active 74473986 Problem Seasonal allergic rhinitis, unspecified allergic rhinitis trigger J30.2 Active 215720298 Problem Abdominal aortic aneurysm (AAA) without rupture I71.4 Active 01886639 Problem Peripheral vascular disease I73.9 Active 535408771 Problem Gastroesophageal reflux disease without esophagitis K21.9 Active 148255001 Problem Urinary, incontinence, stress female N39.3 Active 26609967 Problem Abnormal blood chemistry R79.9 Active 963919219 Problem Diarrhea, unspecified R19.7 Active 27535126 Problem Nausea with vomiting, unspecified R11.2 Active 8832279 Problem 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 847638824 Problem Essential hypertension I10 Active 25699581 ALLERGIES Substance Reaction Event Type Date Status Andrew Unknown Drug Allergy Oct, Active Niacin rash Drug Allergy Oct, Active Macrobid anaphylaxis Drug Allergy Oct, Active Iodine (IV contrast) Drug Allergy Oct, Active Ibuprofen (All NSAIDs) Drug Allergy Oct, Active Bactrim resp distress Drug Allergy Oct, Active SOCIAL HISTORY Never Assessed PLAN OF CARE Activity Details Follow Up prn Reason: VITAL SIGNS Height 65 in 2016-10-05 Weight 274 lbs 2016-10-05 Temperature 97.6 degrees Fahrenheit 2016-10-05 Heart Rate 84 bpm 2016-10-05 Respiratory Rate 16 2016-10-05 BMI 45.59 kg/m2 2016-10-05 Blood pressure systolic 122 mmHg 2016-10-05 Blood pressure diastolic 78 mmHg 2016-10-05 MEDICATIONS Medication Instructions Dosage Frequency Start Date End Date Duration Status Proventil HFA 90 mcg/actuation 2 puffs by Inhalation route 4 times per day PRN May, Active Lisinopril 20 mg Orally Once a day 1 tablet 24h Active Tramadol HCl 50 mg Orally Once a day prn severe pain 1 tablet as needed Jan, Active Zofran 8 MG Orally every 8 hours, PRN 1 tablet Jun, 03 days Active Triamcinolone Acetonide 0.1 % Externally Twice a day 1 application to affected area 12h September, Active Multivitamin Active Toprol XL 100 mg Orally Once a day 2 tablets 24h Active Gabapentin 100 mg Orally 2 times a day 1 capsule 12h Active Fluticasone Propionate 50 MCG/ACT Nasally Once a day 1 spray in each nostril 24h 30 day(s) Active Amlodipine Besylate 10 mg Orally Once a day 1 tablet 24h Active Omeprazole 40 mg Orally Once a day 1 capsule 24h Active Vitamin C 500 mg 1 tablet by Oral route 1 time per day May, Active Neurontin 300 MG Orally at bedtime 1 capsule Jul, Active Cyclobenzaprine HCl 10 mg Orally at hs prn 1 tablet Dec, Active Symbicort 160-4.5 MCG/ACT Inhalation Twice a day sample today 1 puffs 11 [place], 2016 Active Simvastatin 10 mg Orally Once a day 1 tablet in the evening 24h Active Calcium 600 MG Active Cetirizine HCl 10 MG Orally Once a day 1 tablet 24h Oct, Nov, 30 day(s) Active RESULTS No Results PROCEDURES [...]
--- OUTSIDE RECORDS SUMMARY | 2018-02-08 02:29 | XMS REPORT ---
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 Name Role Phone PHUC AMIN Unavailable PROBLEMS Type Condition ICD9-CM Code KLX58-FD Code Onset Dates Condition Status SNOMED Code Problem Stenosis of right renal artery I70.1 Active [id number] Problem Seasonal allergic rhinitis, unspecified allergic rhinitis trigger J30.2 Active 189462771 Problem Abdominal aortic aneurysm (AAA) without rupture I71.4 Active 00162657 Problem Mixed hyperlipidemia E78.2 Active 655777264 Problem Other chronic pain G89.29 Active 83860497 Problem PVD (peripheral vascular disease) I73.9 Active 998549447 Problem Prediabetes R73.03 Active 399384148 Problem Arthritis of knee M17.10 Active 889338882 Problem Renal artery stenosis I70.1 Active 923449945 Problem Peripheral vascular disease I73.9 Active 163372508 Problem Dysphagia, unspecified R13.10 Active 83914141 Problem Hepatic steatosis K76.0 Active 700918771 Problem Urinary, incontinence, stress female N39.3 Active 38331446 Problem Anemia of chronic disease D63.8 Active 731836691 Problem 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 236049023 Problem Chronic kidney disease, unspecified N18.9 Active 065390209 Problem Essential hypertension I10 Active 39829722 Problem Cervicalgia M54.2 Active 0740379071139 Problem Gastroesophageal reflux disease without esophagitis K21.9 Active 429309807 ALLERGIES No Information ENCOUNTERS Encounter Location Date Diagnosis [id number] [address] September, Chronic kidney disease, unspecified N18.9 ; Essential hypertension I10 ; Mixed hyperlipidemia E78.2 and BMI 45.0-49.9, adult Z68.42 [place] [address] [id number] [place] [address] 85842- 2275 September, [place] [address] [address]- [address] September, Essential hypertension I10 ; Chronic kidney disease, unspecified N18.9 ; Prediabetes R73.03 ; Low back pain M54.5 ; Other chronic pain G89.29 ; Arthritis of knee M17.10 ; Pure hyperglyceridemia E78.1 ; Anemia of chronic disease D63.8 and BMI 45.0-49.9, adult Z68.42 [place] [address] 82189- [address]377 Aug, [place] [address] 58222- 3448 Jul, Abdominal aortic aneurysm (AAA) without rupture I71.4 ; PVD (peripheral vascular disease) I73.9 ; Renal artery stenosis I70.1 and Essential hypertension I10 [place] [address] 90503- 9036 May, Essential hypertension I10 ; Pure hyperglyceridemia E78.1 ; Abdominal aortic aneurysm (AAA) without rupture I71.4 ; Chronic kidney disease, unspecified N18.9 ; Gastroesophageal reflux disease without esophagitis K21.9 ; 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 ; Stenosis of right renal artery I70.1 ; Anemia of chronic disease D63.8 and Prediabetes R73.03 [place] [id number] [place] [address] 55269- 6135 May, Tinea corporis B35.4 and Viral URI J06.[address] 24274- 8143 May, [place] [address] 22512- 5824 Apr, [place] [address] 16743- 6296 Apr, Cervical radiculopathy M54.12 [facility] [address] [address] Apr, Flank pain R10.9 and Acute pyelonephritis N10 [facility] [address] [address] Apr, [facility] [id number] [place] [address] 41129- 5009 Mar, [facility] [id number] [place] [address] 57745- 1113 Feb, Pain of right shoulder region M25.511 [facility] [id number] [place] [address] 73525- 9720 Feb, History of glaucoma Z86.69 ; Vision changes H53.9 ; Abdominal aortic aneurysm (AAA) without rupture I71.4 ; Xerosis of skin L85.3 and Pain in right shoulder M25.511 [facility] [id number] [place] [address] 49746- 3799 Feb, [facility] [id number] [place] [address] 01716- 1861 Jan, Essential hypertension I10 ; Pure hyperglyceridemia E78.1 ; Chronic kidney disease, unspecified N18.9 ; Gastroesophageal reflux disease without esophagitis K21.9 ; 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 ; Stenosis of right renal artery I70.1 ; Anemia of chronic disease D63.8 ; Prediabetes R73.03 ; Pain of right shoulder region M25.511 and Homeless Z59.0 [place] [id number] [place] [address] 46298- 5478 Jan, Neck pain M54.2 and Seasonal allergic rhinitis, unspecified allergic rhinitis trigger J30.2 [facility] [id number] [place] [address] 39224- 8749 Dec, [facility] [id number] [place] [address] 61001- 0731 Dec, [place] [id number] [place] [address] 28522- 3313 Dec, Blood glucose abnormal R73.09 ; Essential [...] infection A04.8 and Prediabetes R73.03 [facility] [id number] [place] [address] 57507 -9317 Oct, Seasonal allergic rhinitis, unspecified allergic rhinitis trigger J30.2 [place] [id number] [place] [address] 47575- 7915 September, Eustachian tube dysfunction, left H69.82 and Candidiasis of breast B37.89 [place] [id number] [place] [address] 59518- 7864 Jul, Blood glucose abnormal R73.09 ; Essential hypertension I10 ; Pure hyperglyceridemia E78.1 ; Chronic kidney disease, unspecified N18.9 ; Gastroesophageal reflux disease without esophagitis K21.9 ; 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 ; Abdominal aortic aneurysm (AAA) without rupture I71.4 ; Stenosis of right renal artery I70.1 ; Anemia of chronic disease D63.8 and Acute non-recurrent maxillary sinusitis J01.00 [place] [id number] [place] [address] 48374- 3635 Jun, Acute non-recurrent maxillary sinusitis J01.00 ; Acute mucoid otitis media of left ear H65.112 ; Nausea R11.0 and Fever and chills R50.9 [place] [id number] [place] [address] 04687- 7974 May, Acute right flank pain R10.[address] 12286- 8004 Apr, Pure hyperglyceridemia E78.1 ; Chronic kidney disease, unspecified N18.9 and Acute nasopharyngitis J00 [place] [id number] [place] [address] 46215- 4413 Apr, [place] [id number] [place] [address] 53135- 1730 Apr, Blood glucose abnormal R73.09 ; Essential hypertension I10 ; Pure hyperglyceridemia E78.1 ; Chronic kidney disease, unspecified N18.9 ; Gastroesophageal reflux disease without esophagitis K21.9 ; 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 ; Abdominal aortic aneurysm (AAA) without rupture I71.4 ; Stenosis of right renal artery I70.1 ; RUQ pain R10.11 and Anemia of chronic disease D63.8 [place] [id number] [place] [address] 57545- 9457 Mar, Blood glucose abnormal R73.09 [place] [address] 31796- 8894 Mar, Cellulitis of right lower leg L03.115 [facility] [id number] [place] [address] 67903 -0146 Feb, [place] [id number] [place] [address] 41495- 4196 Feb, Dysuria R30.0 and Upper respiratory tract infection, unspecified type J06.9 [place] [id number] [place] [address] 84304- 4602 Jan, [place] [address] 79225- 7459 Jan, [place] [address] 87744- 1027 Dec, [place] [id number] [place] [address] 42039- 2487 Dec, Anemia of chronic disease D63.8 ; Essential hypertension I10 ; Pure hyperglyceridemia E78.1 ; Chronic kidney disease, unspecified N18.9 ; Gastroesophageal reflux disease without esophagitis K21.9 ; 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 and Pain in right knee M25.561 [place] [id number] [place] [address] 10106- 9983 Dec, Left shoulder strain, subsequent encounter S46.912D ; Urinary frequency R35.0 ; Lung nodule, solitary R91.1 ; Essential hypertension I10 and Acute cystitis without hematuria N30.00 [place] [address] 83124- 8919 Nov, Left-sided chest wall pain R07.89 and Abnormal chest xray R93.[address] 74084- 6523 Nov, Pain of right lower extremity M79.604 ; Swelling of right lower extremity M79.89 ; Diarrhea, unspecified R19.7 ; Nausea with vomiting, unspecified R11.2 ; Left-sided chest wall pain R07.89 ; Chronic kidney disease, unspecified N18.9 ; Gastroesophageal reflux disease without esophagitis K21.9 and Other seasonal allergic rhinitis J30.[address] 79530- 9464 September, Essential hypertension I10 ; Chronic kidney disease, unspecified N18.9 ; Anemia of chronic disease D63.8 ; Pure hyperglyceridemia E78.1 ; Peripheral vascular disease I73.9 ; Abnormal glucose R73.09 ; 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 ; Gastroesophageal reflux disease without esophagitis K21.9 ; Allergic rhinitis J30.9 and Rash R21 [place] [id number] [place] [address] 47840- 2896 Aug, Abdominal pain R10.9 and Constipation K59.[address] 40358- 9174 Jul, Injury of toe on right foot S99.921A [place] [address] 84064- 8162 14 Jul, 2015 [place] [id number] [place] [address] 49049- 9576 Jul, Essential hypertension I10 ; Chronic kidney disease, unspecified N18.9 ; Anemia of chronic disease D63.8 ; Pure hyperglyceridemia E78.1 ; Peripheral vascular disease I73.9 ; Abnormal glucose R73.09 ; 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 ; Gastroesophageal reflux disease without esophagitis K21.9 and Allergic rhinitis J30.9 [place] [id number] [place] [address] 15179- 3443 Jun, Low back pain M54.[address] 56677- 0059 Jun, [address] 58143- 8715 May, URI (upper respiratory infection) J06.9 [place] [id number] [place] [address] 60046- 8004 Apr, Essential hypertension I10 [address] 26456- 7777 10 Apr, 2015 Essential hypertension I10 ; Chronic kidney disease, unspecified N18.9 ; Anemia of chronic disease D63.8 ; Pure hyperglyceridemia E78.1 ; Peripheral vascular disease I73.9 ; Abnormal glucose R73.09 ; URI ( upper respiratory infection) J06.9 ; 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 ; Gastroesophageal reflux disease without esophagitis K21.9 and Cough R05 [place] [id number] [place] [address] 50025- 3332 Mar, Flank pain R10.9 and URI (upper respiratory infection) J06.9 [place] [id number] [place] [address] 48169- 0720 Mar, Right-sided low back pain without sciatica M54.5 and Hematuria, unspecified R31.9 [place] [id number] [place] [address] 12508- 9488 Mar, Hypopigmentation L81.9 and Hyperpigmentation L81.9 [place] [address] 41476- 6467 Mar, [place] [address] 84668- 6682 Mar, Acute cystitis with hematuria N30.01 [place] [address] 57419- 2387 Mar, [place] [address] 87163- 9740 Feb, Furuncle L02.92 ; Hypopigmentation L81.9 ; Hyperpigmentation L81.9 ; Urinary frequency R35.0 ; Screening for malignant neoplasm of cervix Z12.4 ; Vaginal discharge N89.8 ; Urinary, incontinence, stress female N39.3 and Vaginal irritation N89.8 [place] [id number] [place] [address] 39841- 9479 Jan, Muscle spasm 728.85 ; Unspecified peripheral vascular disease 443.9 ; Benign essential hypertension 401.1 ; Chronic renal insufficiency 585.9 ; Chronic constipation 564.00 ; GERD (gastroesophageal reflux disease) 530.81 ; Hyperlipidemia 272.4 and Chronic leg pain 729.5 [place] [id number] [place] [address] 01960- 2764 Jan, Sinusitis 473.9 [place] [id number] [place] [address] 75245- 1867 Dec, [place] [address] 91839- 0140 Dec, Acute bronchitis 466.0 [place] [id number] [place] [address] 32352- 7326 Dec, Acute bronchitis 466.0 [place] [address] 75553- 3306 Dec, Unspecified episodic mood disorder 296.90 [facility] [id number] [place] [address] 75881- 5320 Dec, Visit for suture removal V58.32 [facility] [id number] [place] [address] 14431- 1476 Nov, Allergic rhinitis 477.9 and Onychomycosis 110.1 [place] [id number] [place] [address] 98358- 1805 Oct, Muscle spasm 728.85 ; Benign essential hypertension 401.1 ; Chronic renal insufficiency 585.9 ; Chronic constipation 564.00 ; GERD ( gastroesophageal reflux disease) 530.81 and Hyperlipidemia 272.4 [place] [id number] [place] [address] 91193- 6924 Oct, Otalgia of left ear 388.[address] 59321782- 3322 Oct, Unspecified episodic mood disorder 296.90 [place] [id number] [place] [address] 53507- 3993 September, Unspecified episodic mood disorder 296.90 [place] [id number] [place] [address] [id number]- 7452 September, Unspecified episodic mood disorder 296.90 [facility] [id number] [place] [address] [id number] September, Urinary frequency 788.41 and Constipation 564.00 [place] [id number] [place] [address] 38075- 4695 Aug, [place] [id number] [place] [address] [id number]- 6811 Aug, [place] [id number] [place] [address] 63987- 9481 Jul, [place] [address] 47731- 0771 Jul, [facility] [place] [facility] [address] [id number] [place] [address]- 0950 Jul, [facility] [place] [facility] [address] [id number] [place] [address]- 8992 Jul, [facility] [place] [facility] [address] [id number] [place] [address]- 5449 Jul, [facility] [place] [facility] [address] [id number] [place] [address]- 1090 Jul, [facility] [place] [facility] [address] [id number] [place] [address]- 0065 Jul, [facility] [place] [facility] [address] [id number] [place] [address]- 8532 Jul, [facility] [place] [facility] [address] [id number] [place] [address]- 6001 Jul, [facility] [place] [facility] [address] [id number] [place] [address]- 5444 Jul, [facility] [place] [facility] [address] [id number] [place] [address]- 9401 Jun, [facility] [place] [facility] [address] [id number] [place] [address]- 1328 Jun, [facility] [place] [facility] [address] [id number] [place] [address]- 0816 May, [facility] [place] [facility] [address] [id number] [place] [address]- 9946 May, [facility] [place] [facility] [address] [id number] [place] [address]- 9195 May, [facility] [place] [facility] [address] [id number] [place] [address]- 9272 May, [facility] [place] [facility] [address] [id number] [place] [address]- 0801 May, [facility] [place] [facility] [address] [id number] [place] [address]- 5368 May, [facility] [place] [facility] [address] [id number] [place] [address]- 9051 May, [facility] [place] [facility] [address] [id number] [place] [address]- 9813 May, [facility] [place] [facility] [address] [id number] [place] [address]- 9360 May, [facility] [place] [facility] [address] [id number] [place] [address]- 1107 May, [facility] [place] [facility] [address] [id number] [place] [address]- 6560 May, [facility] [place] [facility] [address] [id number] [place] [address]- 3681 May, [facility] [place] [facility] [address] [id number] [place] [address]- 9208 May, [facility] [place] [facility] [address] [id number] [place] [address]- 4776 Feb, [facility] [place] [facility] [address] [id number] [place] [address]- 6320 Feb, [facility] [place] [facility] [address] [id number] [place] [address]- 0336 Jan, [facility] [place] [facility] [address] [id number] [place] [address]- 4385 20 Jan, 2014 [facility] [place] [facility] [address] [id number] [place] [address]- 5032 18 Jan, 2014 [facility] [place] [facility] [address] [id number] [place] [address]- 6186 18 Jan, 2014 [facility] [place] [facility] [address] [id number] [place] [address]- 2471 12 Jan, 2014 [facility] [place] [facility] [address] [id number] [place] [address]- 5591 Jan, [facility] [place] [facility] [address] [id number] [place] [address]- 3837 12 Jan, 2014 [facility] [place] [facility] [address] [id number] [place] [address]- 0975 Jan, [facility] [place] [facility] [address] [id number] [place] [address]- 5147 Jan, [facility] [place] [facility] [address] [id number] [place] [address]- 6462 Jan, [facility] [place] [facility] [address] [id number] [place] [address]- 2938 Jan, [facility] [place] [facility] [address] [id number] [place] [address]- 8793 Jan, [facility] [place] [facility] [address] [id number] [place] [address]- 0316 Oct, [facility] [place] [facility] [address] [id number] [place] [address]- 6330 Oct, [facility] [place] [facility] [address] [id number] [place] [address]- 0463 Oct, [facility] [place] [facility] [address] [id number] [place] [address]- 7575 Oct, [facility] [place] [facility] [address] [id number] [place] [address]- 7784 Jun, [facility] [place] [facility] [address] [id number] [place] [address]- 3040 Jun, [facility] [place] [facility] [address] [id number] [place] [address]- 8803 Jun, [facility] [place] [facility] [address] [id number] [place] [address]- 7905 Jun, [facility] [place] [facility] [address] [id number] [place] [address]- 9131 Apr, [facility] [place] [facility] [address] [id number] [place] [address]- 9024 Apr, [facility] [address] [id number] [place] [address]- 1388 Feb, [facility] [address] [id number] [place] [address]- [address] Feb, [facility] [address] [id number] [place] [address]- 9888 Dec, [facility] [address] [id number] [place] [address]- 1068 Dec, [facility] [address] [id number] [place] [address]- [address] Nov, [facility] [address] [id number] [place] [address]- [address] Nov, [facility] [address] [id number] [place] [address]- [address] Nov, [facility] [address] [id number] [place] [address]- 2776 Oct, [facility] [address] [id number] [place] [address]- 2318 September, [facility] [address] [id number] [place] [address]- [address], [facility] [address] [id number] [place] [address]- [address] Aug, [facility] [address] [id number] [place] [address]- 9851 Aug, [facility] [address] [id number] [place] [address]- [address] Aug, [facility] [address] [id number] [place] [address]- [address] Aug, [facility] [address] [id number] [place] [address]- 9529 Aug, [facility] [place] [facility] [address] [id number] [place] [address]- 8034 Aug, [facility] [place] [facility] [address] [id number] [place] [address]- 2219 Jul, [facility] [place] [facility] [address] [id number] [place] [address]- 3666 Jul, [facility] [place] [facility] [address] [id number] [place] [address]- 9091 Jul, [facility] [address] [id number] [place] [address]- 0262 15 Jul, 2012 [facility] [place] [facility] [address] [id number] [place] [address]- 3463 Jul, [facility] [address] [id number] [place] [address]- 1805 Jul, [facility] [address] [id number] [place] [address]- 5016 Jun, [facility] [place] [facility] [address] [id number] [place] [address]- 8925 Jun, [facility] [address] [id number] [place] [address]- 5080 May, [facility] [place] [facility] [address] [id number] [place] [address]- 2793 May, [facility] [place] [facility] [address] [id number] [place] [address]- 5485 Apr, [facility] [place] [facility] [address] [id number] [place] [address]- 5979 Apr, [facility] [place] [facility] [address] [id number] [place] [address]- 9546 Apr, [facility] [place] [facility] [address] [id number] [place] [address]- 2689 Apr, [facility] [place] [facility] [address] [id number] [address]- 2689 Apr, [facility] [place] [facility] [address] [id number] [place] [address]- 2353 Mar, [facility] [place] [facility] [address] [facility] [id number] [place] [address]- 4680 Mar, [facility] [place] [facility] [id number] [place] [address]- 7356 Mar, [facility] [place] [facility] [address] [id number] [place] [address]- 1380 Mar, [facility] [place] [facility] [address] [place] [id number] [place] [address], [place] [address]- 7857 Mar, [facility] [place] [facility] [address] [facility] [id number] [place] [address] Mar, [facility] [place] [facility] [id number] [place] [address], [place] [address] Mar, [facility] [place] [facility] [address] [facility] [id number] [place] [address] Feb, [facility] [place] [facility] [address] [id number] [place] [address] Feb, [facility] [place] [facility] [address] [id number] [place] [address] Feb, [facility] [place] [facility] [address] [facility] [id number] [place] [address] Feb, [facility] [place] [facility] [address] [facility] [id number] [address] Dec, [facility] [place] [facility] [address] [facility] [id number] [place] [address] Nov, [facility] [place] [facility] [address] [facility] [id number] [address] Nov, [facility] [place] [facility] [address] [id number] [place] [address] Oct, [facility] [place] [facility] [address] [id number] [place] [address] 27 Oct, 2011 [facility] [place] [facility] [address] [id number] [place] [address]- [address] 23 Oct, 2011 [facility] [place] [facility] [address] [id number] [place] [address]- [address] Oct, [facility] [place] [facility] [address] [id number] [place] [address]- [address] Oct, [facility] [place] [facility] [address] [id number] [place] [address]- [address] 17 Oct, 2011 [facility] [place] [facility] [address] [id number] [place] [address]- [address] 06 Oct, 2011 [facility] [place] [facility] [address] [id number] [place] [address]- 4702 Aug, [facility] [place] [facility] [address] [id number] [place] [address]- [address] Jul, [facility] [place] [facility] [address] [id number] [place] [address]- [address] Jul, [facility] [place] [facility] [address] [id number] [place] [address]- [address] Jul, [facility] [place] [facility] [address] [id number] [place] [address]- [address] Jul, [facility] [place] [facility] [address] [id number] [place] [address]- [address] Jul, [facility] [place] [facility] [address] [id number] [place] [address]- [address] Jul, [facility] [place] [facility] [address] [id number] [place] [address]- [address] Jul, [facility] [place] [facility] [address] [id number] [place] [address] Jun, [facility] [place] [facility] [address] [id number] [place] [address]- [address] May, [facility] [place] [facility] [address] [id number] [place] [place] [address] May, [facility] [place] [facility] [address] [id number] [place] [address] May, [facility] [place] [facility] [address] [id number] [place] [address] Apr, [facility] [place] [facility] [address] [id number] [place] [address] Apr, [facility] [place] [facility] [address] [id number] [place] [address] 16 Apr, 2011 [facility] [place] [facility] [address] [id number] [place] [address] Apr, [facility] [place] [facility] [address] [id number] [place] [address] Apr, [facility] [place] [facility] [address] [id number] [place] [address] Apr, [facility] [place] [facility] [address] [id number] [place] [address] Mar, [facility] [place] [facility] [address] [id number] [place] [address] Mar, [facility] [place] [facility] [address] [id number] [address] Mar, [facility] [place] [facility] [address] [id number] [address] Mar, [facility] [place] [facility] [address] [id number] [place] [address] Mar, [facility] [place] [facility] [address] [id number] [address] Mar, [facility] [place] [facility] [address] [id number] [place] Mar, [facility] [place] [facility] [id number] [address] Dec, [facility] [id number] [address] Aug, [facility] [id number] [address] Apr, [facility] [id number] [address] Mar, [facility] [id number] [address] Mar, [facility] [id number] [address] Mar, [facility] [id number] [address] Mar, [facility] [id number] [address] September, [facility] [id number] [address] Mar, [facility] [id number] [address] Feb, [facility] [id number] [address] Oct, [facility] [id number] [address] September, [facility] [id number] [address] Apr, [facility] [address] [id number] [address] Mar, IMMUNIZATIONS No Known Immunizations SOCIAL HISTORY Never Assessed REASON FOR VISIT vision changes PLAN OF CARE VITAL SIGNS MEDICATIONS No [...]
--- OUTSIDE RECORDS SUMMARY | 2018-02-08 02:30 | XMS REPORT ---
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 Role Phone SINTIA BOSCH Unavailable Allergies, [...] Problem Abnormal blood chemistry R79.9 Active Assessment Urinary, incontinence, stress female N39.3 Active Assessment Vaginal discharge N89.8 Active Assessment Vaginal irritation N89.8 Active Assessment Hyperpigmentation L81.9 Active Assessment Hypopigmentation L81.9 Active Assessment Screening for malignant neoplasm of cervix Z12.4 Active Assessment Furuncle L02.92 Active Assessment Urinary frequency R35.0 Active Problem Urinary, incontinence, stress female N39.3 Active Medications Medication Code System Code Instructions Start Date End Date Status Dosage Omeprazole [facility] [address]-08 40 MG Orally Once a day 1 capsule Neurontin [facility] [address]-26 100 mg July 31, 2014 1 capsule by Oral route 3 times per day Multivitamin [facility] 58894-12516 Orally not defined Calcium [facility] 78[address]-92709 600 MG Orally not defined Simvastatin [facility] [address]-70 10 MG Orally Once a day 1 tablet in the evening Lisinopril [facility] [address]-81 20 MG Orally Once a day 1 tablet Amlodipine Besylate [facility] [address]-15 10 MG Orally Once a day 1 tablet Proventil HFA [facility] [address]-99 90 mcg/actuation 2 puff(s) inhaled 4 times a day May 22, 2014 2 puffs by Inhalation route 4 times per day PRN Advair Diskus [facility] [address]-91 250 mcg-50 mcg 1 puff(s) inhaled 2 times a day Jun 30, 2013 1 puffs by Inhalation route 2 times per day Vitamin C [facility] [address]-70 500 mg Jun 02, 2014 1 tablet by Oral route 1 time per day Doxycycline Monohydrate [facility] [address]-56 100 MG Orally every 12 hrs FebMar 12, 2015 1 capsule Toprol XL [facility] [address]-88 100 MG Orally Once a day 2 tablet Procedures Procedure Coding System Code Date URINE CULTURE/COLONY COUNT CPT-4 60911 Mar 05, 2015 CULTURE, BACTERIA, OTHER CPT-4 83618 Mar 05, 2015 SPECIMEN HANDLING CPT-4 69929 Mar 05, 2015 Office Visit, Est Pt., Level 4 CPT-4 11521 Mar 05, 2015 Vital Signs Date/Time: Mar 05, 2015 Temperature 97.6 F Weight 252 lbs Height 65 in BMI 41.93 Index Blood Pressure Diastolic 70 mmHg Blood Pressure Systolic 132 mmHg Cardiac Monitoring Heart Rate 72 bpm Results Name Result Date Reference Range Unit Abnormality Flag UA LONG DIP (IN HOUSE) Summary Purpose [employer] Submission
--- OUTSIDE RECORDS SUMMARY | 2018-02-08 02:30 | XMS REPORT ---
Author Author PHUC AMIN [facility] Address [address] [place] [address] Care Team Providers Care Licensed Occupational Therapy Assistant Name Role Phone PHUC AMIN Unavailable PROBLEMS Type Condition ICD9-CM Code [id number] Code Onset Dates Condition Status SNOMED Code Assessment RUQ pain R10.11 Apr, Active 239740525 Assessment Blood glucose abnormal R73.09 Apr, Active 926191004 Problem Abnormal chest x-ray R93.8 Active 956159095 Problem Essential hypertension I10 Active 65839847 Problem Urinary, incontinence, stress female N39.3 Active 29701515 Problem Other seasonal allergic rhinitis J30.2 Active 496948951 Problem Cervicalgia M54.2 Active 3687329432688 Problem Left-sided chest wall pain R07.89 Active 746729685 Problem Diarrhea, unspecified R19.7 Active 39073508 Problem Nausea with vomiting, unspecified R11.2 Active 0223344 Problem Abdominal aortic aneurysm (AAA) without rupture I71.4 Active 04171811 Problem Stenosis of right renal artery I70.1 Active 19899430229034486 Problem Tachycardia, unspecified R00.0 Active 7570696 Problem Peripheral vascular disease I73.9 Active 810275842 Problem Dysphagia, unspecified R13.10 Active 43626051 Problem Pain of right lower extremity M79.604 Active 219645626 Problem Swelling of right lower extremity M79.89 Active 179264209 Problem Pain in right knee M25.561 Active 12759917 Problem Lung nodule, solitary R91.1 Active 985290274 Problem Pure hyperglyceridemia E78.1 Active 123587657 Problem Anemia of chronic disease D63.8 Active 937472370 Problem Abnormal glucose R73.09 Active 368684503 Problem Abnormal blood chemistry R79.9 Active 380658892 Problem Gastroesophageal reflux disease without esophagitis K21.9 Active 182984111 Problem 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 104444949 Problem Periapical abscess without sinus K04.7 Active 110824219 Problem Chronic kidney disease, unspecified N18.9 Active 525671439 ALLERGIES Substance Reaction Event Type Date Status [place] Unknown Drug Allergy Apr, Active Niacin rash Drug Allergy Apr, Active Macrobid anaphylaxis Drug Allergy Apr, Active Iodine (IV contrast) Drug Allergy Apr, Active Ibuprofen (All NSAIDs) Drug Allergy Apr, Active Bactrim resp distress Drug Allergy Apr, Active SOCIAL HISTORY No smoking Hx information available PLAN OF CARE Activity Details Pending Test Ultrasound : Abdominal, COMPLETE work note for today, abdominal pain pending test results, 3 months for [facility],, Reason: VITAL SIGNS Height 65 in 2016-04-18 Weight 271.8 lbs 2016-04-18 Heart Rate 78 bpm 2016-04-18 Respiratory Rate 18 2016-04-18 BMI 45.22 kg/m2 2016-04-18 Blood pressure systolic 124 mmHg 2016-04-18 Blood pressure diastolic 78 mmHg 2016-04-18 MEDICATIONS Medication Instructions Dosage Frequency Start Date End Date Duration Status Vitamin C 500 mg 1 tablet by Oral route 1 time per day May, Active Cyclobenzaprine HCl 10 mg Orally at hs prn 1 tablet Dec, Active Proventil HFA 90 mcg/actuation 2 puffs by Inhalation route 4 times per day PRN May, Active Calcium 600 MG Active Tramadol HCl 50 mg Orally Once a day prn severe pain 1 tablet as needed Jan, Active Lisinopril 20 MG Orally Once a day 1 tablet 24h Active Omeprazole 40 mg Orally Once a day 1 capsule 24h Active Gabapentin 100 MG Orally Three times a day 1 tablet 8h 30 Active Triamcinolone Acetonide 0.1 % Externally Twice a day 1 application to affected area 12h September, Active Fluticasone Propionate 50 MCG/ACT Nasally Once a day 1 spray in each nostril 24h 30 day(s) Active Toprol XL 200 mg Orally Once a day 1 tablet 24h Active Symbicort 160-4.5 MCG/ACT Inhalation Twice a day sample today 1 puffs May, Active Simvastatin 10 mg Orally Once a day 1 tablet in the evening 24h Active Multivitamin Active Amlodipine Besylate 10 mg Orally Once a day 1 tablet 24h Active RESULTS Name Result Date Reference Range A1C (IN HOUSE) 2016-04-18 A1C IN HOUSE 5.6% 4.3 - 5.6 % Previous A1c 5.2% Lot [id number] Exp date Ultrasound : Abdominal, COMPLETE 2016-04-24 PROCEDURES Procedure Date Ordered Related Diagnosis Body Site GLYCATED HEMOGLOBIN TEST Apr 18, 2016 Office Visit, Est Pt., Level 4 Apr 18, 2016 IMMUNIZATIONS No Known Immunizations
--- OUTSIDE RECORDS SUMMARY | 2018-02-08 02:31 | XMS REPORT ---
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 283521350 Problem Essential hypertension I10 Active 16489702 Problem Gastroesophageal reflux disease without esophagitis K21.9 Active 469074160 Problem PVD (peripheral vascular disease) I73.9 Active 822544003 Problem Renal artery stenosis I70.1 Active 878997912 Problem Abdominal aortic aneurysm (AAA) without rupture I71.4 Active 29523630 Problem Stenosis of right renal artery I70.1 Active [id number] Problem Prediabetes R73.03 Active 398393577 Problem Seasonal allergic rhinitis, unspecified allergic rhinitis trigger J30.2 Active 072797580 Problem Hepatic steatosis K76.0 Active 085210220 Problem Peripheral vascular disease I73.9 Active 176894266 Problem Dysphagia, unspecified R13.10 Active 30571756 Problem Anemia of chronic disease D63.8 Active 958364856 Problem Chronic kidney disease, unspecified N18.9 Active 003025309 Problem Urinary, incontinence, stress female N39.3 Active 33183195 Problem Cervicalgia M54.2 Active [id number] ALLERGIES Substance Reaction Event Type Date Status [place] Unknown Drug Allergy Jan, Active Niacin rash Drug Allergy Jan, Active Macrobid anaphylaxis Drug Allergy Jan, Active Iodine (IV contrast) Drug Allergy Jan, Active Ibuprofen (All NSAIDs) Drug Allergy Jan, Active Bactrim resp distress Drug Allergy Jan, Active ENCOUNTERS Encounter Location Date Diagnosis [facility] [address] [facility] [id number] [address] Jul, Abdominal aortic aneurysm (AAA) without rupture I71.4 ; PVD (peripheral vascular disease) I73.9 ; Renal artery stenosis I70.1 and Essential hypertension I10 [place] [address] [address] May, Essential hypertension I10 ; Pure hyperglyceridemia E78.1 ; Abdominal aortic aneurysm (AAA) without rupture I71.4 ; Chronic kidney disease, unspecified N18.9 ; Gastroesophageal reflux disease without esophagitis K21.9 ; 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 ; Stenosis of right renal artery I70.1 ; Anemia of chronic disease D63.8 and Prediabetes R73.03 [place] [address] [address] May, Tinea corporis B35.4 and Viral URI J06.9 [place] [address] [address]- [address] May, [place] [address] [address]67- [address] Apr, [place] [address] [address]- [address]30 Apr, Cervical radiculopathy M54.12 [facility] [address] [address] 09 Apr, 2017 Flank pain R10.9 and Acute pyelonephritis N10 [facility] [address] [address]- [address] Apr, [facility] [address] [address] Mar, [place] [address] [address]- [address] 31 Feb, 2017 Pain of right shoulder region M25.511 [place] [address] [address]- 9665 Feb, History of glaucoma Z86.69 ; Vision changes H53.9 ; Abdominal aortic aneurysm (AAA) without rupture I71.4 ; Xerosis of skin L85.3 and Pain in right shoulder M25.511 [place] [address] [address]- [address]88 Feb, [place] [address] [address]- [address] 13 Jan, 2017 Essential hypertension I10 ; Pure hyperglyceridemia E78.1 ; Chronic kidney disease, unspecified N18.9 ; Gastroesophageal reflux disease without esophagitis K21.9 ; 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 ; Stenosis of right renal artery I70.1 ; Anemia of chronic disease D63.8 ; Prediabetes R73.03 ; Pain of right shoulder region M25.511 and Homeless Z59.0 [place] [address] [address]- [address] Jan, Neck pain M54.2 and Seasonal allergic rhinitis, unspecified allergic rhinitis trigger J30.2 [place] [address] 24[address]- 4787 Dec, [place] [address] 0[address]- 78[address] Dec, [place] [address] 84[address]- 2363 Dec, Blood glucose abnormal R73.09 ; Essential [...] Prediabetes R73.03 [facility] IN [place] [address] [address] Oct, Seasonal allergic rhinitis, unspecified allergic rhinitis trigger J30.2 [place] [address] [address]- 74[address] September, Eustachian tube dysfunction, left H69.82 and Candidiasis of breast B37.89 [place] [address]206- [address] Jul, Blood glucose abnormal R73.09 ; Essential hypertension I10 ; Pure hyperglyceridemia E78.1 ; Chronic kidney disease, unspecified N18.9 ; Gastroesophageal reflux disease without esophagitis K21.9 ; 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 ; Abdominal aortic aneurysm (AAA) without rupture I71.4 ; Stenosis of right renal artery I70.1 ; Anemia of chronic disease D63.8 and Acute non-recurrent maxillary sinusitis J01.00 [place] [id number]- [address] Jun, Acute non-recurrent maxillary sinusitis J01.00 ; Acute mucoid otitis media of left ear H65.112 ; Nausea R11.0 and Fever and chills R50.[address] [address]- [address] May, Acute right flank pain R10.[address] 37697- 7308 Apr, Pure hyperglyceridemia E78.1 ; Chronic kidney disease, unspecified N18.9 and Acute nasopharyngitis J00 [address] [address]- 7676 Apr, [place] [id number]- [address]151 Apr, Blood glucose abnormal R73.09 ; Essential hypertension I10 ; Pure hyperglyceridemia E78.1 ; Chronic kidney disease, unspecified N18.9 ; Gastroesophageal reflux disease without esophagitis K21.9 ; 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 ; Abdominal aortic aneurysm (AAA) without rupture I71.4 ; Stenosis of right renal artery I70.1 ; RUQ pain R10.11 and Anemia of chronic disease D63.8 [place] [address]99762- 2546 Mar, Blood glucose abnormal R73.09 [place] [address] [place] [address]- 3[address] Mar, Cellulitis of right lower leg L03.115 [facility] [address] [place] [address] Feb, [facility] [address] [place] [id number] [place] [address]- 3161 Feb, Dysuria R30.0 and Upper respiratory tract infection, unspecified type J06.9 [place] [address] [place] [id number] [place] [address] 29062- 1833 Jan, [place] [address] [place] [id number] [place] [address] 15188- 1626 Jan, [place] [address] [place] [id number] [place] [address] 57112- 9153 Dec, [facility] [address] [place] [id number] [place] [address] 49898- 1891 Dec, Anemia of chronic disease D63.8 ; Essential hypertension I10 ; Pure hyperglyceridemia E78.1 ; Chronic kidney disease, unspecified N18.9 ; Gastroesophageal reflux disease without esophagitis K21.9 ; 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 and Pain in right knee M25.561 [place] [address] [place] [id number] [place] [address]10- 9429 Dec, Left shoulder strain, subsequent encounter S46.912D ; Urinary frequency R35.0 ; Lung nodule, solitary R91.1 ; Essential hypertension I10 and Acute cystitis without hematuria N30.00 [place] [address] [place] [id number] [place] [address] 25454- 1450 Nov, Left-sided chest wall pain R07.89 and Abnormal chest xray R93.8 [place] [address] [place] [address] 60771- 1921 Nov, Pain of right lower extremity M79.604 ; Swelling of right lower extremity M79.89 ; Diarrhea, unspecified R19.7 ; Nausea with vomiting, unspecified R11.2 ; Left-sided chest wall pain R07.89 ; Chronic kidney disease, unspecified N18.9 ; Gastroesophageal reflux disease without esophagitis K21.9 and Other seasonal allergic rhinitis J30.[address] [address]- 0852 September, Essential hypertension I10 ; Chronic kidney disease, unspecified N18.9 ; Anemia of chronic disease D63.8 ; Pure hyperglyceridemia E78.1 ; Peripheral vascular disease I73.9 ; Abnormal glucose R73.09 ; 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 ; Gastroesophageal reflux disease without esophagitis K21.9 ; Allergic rhinitis J30.9 and Rash R21 [address] [address]- 2114 Aug, Abdominal pain R10.9 and Constipation K59.[address] 35287- 7839 Jul, Injury of toe on right foot S99.921A [address] 8[address]26- 7272 Jul, [address] [address]12- 0120 Jul, Essential hypertension I10 ; Chronic kidney disease, unspecified N18.9 ; Anemia of chronic disease D63.8 ; Pure hyperglyceridemia E78.1 ; Peripheral vascular disease I73.9 ; Abnormal glucose R73.09 ; 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 ; Gastroesophageal reflux disease without esophagitis K21.9 and Allergic rhinitis J30.[address] 41437- 6987 Jun, Low back pain M54.[address] 96411- 0627 Jun, [place] [id number]- 2546 11 May, 2015 URI (upper respiratory infection) J06.9 [place] [address] 67889- 8862 15 Apr, 2015 Essential hypertension I10 [place] [address] 16135- 1733 10 Apr, 2015 Essential hypertension I10 ; Chronic kidney disease, unspecified N18.9 ; Anemia of chronic disease D63.8 ; Pure hyperglyceridemia E78.1 ; Peripheral vascular disease I73.9 ; Abnormal glucose R73.09 ; URI ( upper respiratory infection) J06.9 ; 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 ; Gastroesophageal reflux disease without esophagitis K21.9 and Cough R05 [place] [address] 25312- 3243 27 Mar, 2015 Flank pain R10.9 and URI (upper respiratory infection) J06.9 [place] [address] 15203- 5954 Mar, Right-sided low back pain without sciatica M54.5 and Hematuria, unspecified R31.[address] 15749- 0660 Mar, Hypopigmentation L81.9 and Hyperpigmentation L81.[address] 70001- 6500 Mar, [address] 39744- 9179 Mar, Acute cystitis with hematuria N30.[address] 94936- 9265 Mar, [place] [address] [place] [id number]- 5492 30 Feb, 2015 Furuncle L02.92 ; Hypopigmentation L81.9 ; Hyperpigmentation L81.9 ; Urinary frequency R35.0 ; Screening for malignant neoplasm of cervix Z12.4 ; Vaginal discharge N89.8 ; Urinary, incontinence, stress female N39.3 and Vaginal irritation N89.8 [place] [address] 80504- 0755 Jan, Muscle spasm 728.85 ; Unspecified peripheral vascular disease 443.9 ; Benign essential hypertension 401.1 ; Chronic renal insufficiency 585.9 ; Chronic constipation 564.00 ; GERD (gastroesophageal reflux disease) 530.81 ; Hyperlipidemia 272.4 and Chronic leg pain 729.5 [place] [address] 79261- 9359 Jan, Sinusitis 473.9 [place] [address] 87535- 6476 Dec, [place] [address] 07256- 2147 Dec, Acute bronchitis 466.[address] 88777- 8655 Dec, Acute bronchitis 466.0 [place] [address] 03040- 5010 Dec, Unspecified episodic mood disorder 296.[address] 15207- 3676 Dec, Visit for suture removal V58.[address] 87596- 1906 Nov, Allergic rhinitis 477.9 and Onychomycosis 110.1 [place] [address] 09583- 9110 Oct, Muscle spasm 728.85 ; Benign essential hypertension 401.1 ; Chronic renal insufficiency 585.9 ; Chronic constipation 564.00 ; GERD ( gastroesophageal reflux disease) 530.81 and Hyperlipidemia 272.4 [place] [address] 77449- 3904 Oct, Otalgia of left ear 388.70 [facility] [address] [address] 8102 Oct, Unspecified episodic mood disorder 296.90 [facility] [address] [place] [id number] [place] [address] 94609 2546 September, Unspecified episodic mood disorder 296.90 [facility] [address] [place] [id number] [place] [address] 56888- 5966 September, Unspecified episodic mood disorder 296.90 [facility] [address] [id number] September, Urinary frequency 788.41 and Constipation 564.00 [facility] [address] [place] [id number] [place] [address] 44781- 9676 Aug, [facility] [address] [place] [id number] [place] [address] 92651- 2553 Aug, [facility] [address] [place] [id number] [place] [address] 04646- 8593 Jul, [facility] [address] [place] [id number] [place] [address] 64419- 3500 Jul, [facility] [address] [id number] [address]- 0766 Jul, [facility] [address] [address]- 8046 Jul, [facility] [address] [id number] [address] 2546 Jul, [facility] [address] [address] 2546 Jul, [facility] [address] [place] [id number] [place] [address] 32783 2546 Jul, [facility] [address] [address] 2546 Jul, [facility] [place] [facility] [address] [id number] [place] [address]- 8578 Jul, [facility] [place] [facility] [address] [id number] [place] [address]- 4608 Jul, [facility] [place] [facility] [address] [id number] [place] [address]- 0042 Jun, [facility] [place] [facility] [address] [id number] [place] [address]- 5957 Jun, [facility] [place] [facility] [address] [id number] [place] [address]- 6726 May, [facility] [place] [facility] [address] [id number] [place] [address]- 2276 May, [facility] [place] [facility] [address] [id number] [place] [address]- 3160 May, [facility] [place] [facility] [address] [id number] [place] [address]- 4474 May, [facility] [place] [facility] [address] [id number] [place] [address]- 3788 May, [facility] [place] [facility] [address] [id number] [place] [address]- 9737 May, [facility] [place] [facility] [address] [id number] [place] [address]- 9059 May, [facility] [place] [facility] [address] [id number] [place] [address]- 1312 May, [facility] [place] [facility] [address] [id number] [place] [address]- 3347 May, [facility] [place] [facility] [address] [id number] [place] [address]- 4129 May, [facility] [place] [facility] [address] [id number] [place] [address]- 6176 May, [facility] [place] [facility] [address] [id number] [place] [address]- 8045 May, [facility] [place] [facility] [address] [id number] [place] [address]- 3177 May, [facility] [place] [facility] [address] [id number] [place] [address]- 5272 Feb, [facility] [place] [facility] [address] [id number] [place] [address]- 2870 Feb, [facility] [place] [facility] [address] [id number] [place] [address]- 0280 20 Jan, 2013 [facility] [place] [facility] [address] [id number] [place] [address]- 2737 20 Jan, 2014 [facility] [place] [facility] [address] [id number] [place] [address]- 6164 18 Jan, 2013 [facility] [place] [facility] [address] [id number] [place] [address]- 1140 18 Jan, 2013 [facility] [place] [facility] [address] [id number] [place] [address]- 4784 12 Jan, 2013 [facility] [place] [facility] [address] [id number] [place] [address]- 8409 12 Jan, 2013 [facility] [place] [facility] [address] [id number] [place] [address]- 2317 12 Jan, 2013 [facility] [place] [facility] [address] [id number] [address]- 0076 12 Jan, 2013 [facility] [place] [facility] [address] [id number] [place] [address]- 9409 11 Jan, 2013 [facility] [place] [facility] [address] [id number] [place] [address]- 7905 11 Jan, 2013 [facility] [place] [facility] [address] [id number] [place] [address]- 5512 10 Jan, 2013 [facility] [place] [facility] [address] [id number] [place] [address]- 0187 10 Jan, 2013 [facility] [place] [facility] [address] [id number] [place] [address]- 5094 Oct, [facility] [place] [facility] [address] [id number] [place] 7964 Oct, [facility] [place] [facility] [address] [id number] [place] 8982 Oct, [facility] [place] [facility] [address] [id number] [place] [address]- 7663 Oct, [facility] [place] [facility] [address] [id number] [place] [address]- 7659 Jun, [facility] [place] [facility] [address] [id number] [place] [address]- 9593 Jun, [facility] [place] [facility] [address] [id number] [place] 9343 Jun, [facility] [place] [facility] [address] [facility] [id number] [place] [address]- 4815 Jun, [facility] [place] [facility] [address] [id number] [place] [address]- 6032 Apr, [facility] [place] [facility] [address] [facility] [id number] [place] [address]- 8290 Apr, [facility] [place] [facility] [address] [facility] [id number] [place] [address]- 5516 Feb, [facility] [place] [facility] [address] [id number] [place] [address]- 4809 Feb, [facility] [place] [facility] [address] [id number] [place] [address]- 6937 Dec, [facility] [place] [facility] [address] [id number] [place] [address]- 9011 Dec, [facility] [place] [facility] [address] [id number] [place] [address]- 2546 Nov, [facility] [place] [facility] [address] [facility] [id number] [place] [address]- 0530 Nov, [facility] [address] [id number] [place] [address]- 0406 Nov, [facility] [place] [facility] [address] [id number] [place] [address]- 8025 Oct, [facility] [address] [id number] [place] [address]- 2562 September, [facility] [place] [facility] [address] [id number] [place] [address]- 0487 September, [facility] [address] [id number] [place] [address]- 3966 Aug, [facility] [place] [facility] [address] [id number] [place] [address]- 0877 Aug, [facility] [place] [facility] [address] [id number] [place] [address]- 2946 Aug, [facility] [address] [id number] [place] [address]- 3732 Aug, [facility] [place] [facility] [address] [id number] [place] [address]- 1849 Aug, [facility] [place] [facility] [address] [id number] [place] [address]- 6229 Aug, [facility] [place] [facility] [address] [id number] [place] [address]- 7479 Jul, [facility] [place] [facility] [address] [id number] [address]- 6064 Jul, [facility] [place] [facility] [address] [id number] [place] [address]- 0829 21 Jul, 2012 [facility] [place] [facility] [address] [id number] [place] [address]- 1829 15 Jul, 2012 [facility] [place] [facility] [address] [id number] [place] [address]- 5305 Jul, [facility] [place] [facility] [address] [id number] [place] [address]- 5473 Jul, [facility] [address] [id number] [place] [address]- 7546 Jun, [facility] [place] [facility] [address] [id number] [place] [address]- 9346 Jun, [facility] [address] [id number] [place] [address]- 8736 May, [facility] [place] [facility] [address] [id number] [place] [address]- 4521 May, [facility] [address] [id number] [place] [address]- 6218 Apr, [facility] [place] [facility] [address] [id number] [place] [address]- 2132 Apr, [facility] [address] [id number] [place] [address]- 6419 Apr, [facility] [place] [facility] [address] [id number] [place] [address]- 0880 Apr, [facility] [address] [id number] [place] [address]- 5632 Apr, [facility] [place] [facility] [address] [facility] [id number] [place] [address]- 7905 Mar, [facility] [place] [facility] [address] [id number] [place] [address]- 9906 Mar, [facility] [place] [facility] [address] [id number] [place] [address] 2543 Mar, [facility] [place] [facility] [address] [id number] [place] [address]- 4677 Mar, [facility] [place] [facility] [address] [id number] [place] [address]- 1036 Mar, [facility] [place] [facility] [address] [facility] [id number] [place] [address]- 0377 Mar, [facility] [place] [facility] [address] [id number] [place] [address]- 9672 Mar, [facility] [place] [facility] [address] [id number] [place] [address]- 3520 Feb, [facility] [place] [facility] [address] [id number] [place] [address]- 8663 Feb, [facility] [place] [facility] [address] [id number] [place] [address]- 9766 Feb, [facility] [place] [facility] [address] [id number] [place] [address]- 0668 Feb, [facility] [place] [facility] [address] [id number] [place] [address]- 8794 Dec, [facility] [place] [facility] [address] [id number] [place] [address]- 1111 Nov, [facility] [place] [facility] [address] [id number] [place] [address]- 6656 Nov, [facility] [place] [facility] [address] [id number] [place] [address]- 2260 Oct, [facility] [place] [facility] [address] [id number] [place] [address]- 7242 Oct, [facility] [place] [facility] [address] [id number] [place] [address]- 5145 Oct, [facility] [place] [facility] [address] [id number] [place] [address]- 6280 Oct, [facility] [place] [facility] [address] [id number] [place] [address]- 2942 Oct, [facility] [place] [facility] [address] [id number] [place] [address] Oct, [facility] [place] [facility] [address] [id number] [place] [address] Oct, [facility] [place] [facility] [address] [id number] [place] [address] Aug, [facility] [place] [facility] [address] [id number] [place] [address] Jul, [facility] [place] [facility] [address] [id number] [place] [address] Jul, [facility] [place] [facility] [address] [id number] [place] [address] Jul, [facility] [place] [facility] [address] [id number] [place] [address] Jul, [facility] [place] [facility] [address] [id number] [place] [address] Jul, [facility] [place] [facility] [address] [id number] [place] [address] Jul, [facility] [place] [facility] [address] [id number] [place] [address] Jul, [facility] [place] [facility] [address] [id number] [place] [address] Jun, [facility] [place] [facility] [address] [id number] [place] [address] May, [facility] [place] [facility] [address] [id number] [place] [address] May, [facility] [place] [facility] [address] [id number] [address] May, [facility] [place] [facility] [address] [id number] [place] [address] Apr, [facility] [place] [facility] [address] [id number] [place] [address] Apr, [facility] [place] [facility] [address] [facility] [id number] [place] [address] 16 Apr, 2011 [facility] [place] [facility] [address] [id number] [place] [address] 15 Apr, 2011 [facility] [place] [facility] [address] [id number] [place] [address] Apr, [facility] [address] [id number] [place] [address] Apr, [facility] [place] [facility] [address] [id number] [place] [address] Mar, [facility] [address] [id number] [place] [address] Mar, [facility] [address] [id number] [place] [address] Mar, [facility] [address] [id number] [place] [address] Mar, [facility] [address] [id number] [place] [address] Mar, [facility] [address] [id number] [place] [address] Mar, [facility] [address] [id number] [place] [address] Mar, [facility] [address] [id number] [place] [address] Dec, [facility] [address] [id number] [place] [address] Aug, [facility] [address] [id number] [place] [address] Apr, [facility] [address] [id number] [place] [address] Mar, [facility] [place] [facility] [address] [id number] [place] [address] Mar, [facility] [place] [facility] [address] [id number] [place] [address] Mar, [facility] [place] [facility] [address] [id number] [place] [address] Mar, [facility] [address] [facility] [id number] [address] September, [facility] [address] [id number] [address] Mar, [facility] [address] [id number] [address] Feb, [facility] [id number] [address] Oct, [facility] [id number] [address] September, [facility] [id number] [address] Apr, [facility] [address] [id number] [address] Mar, IMMUNIZATIONS No Known Immunizations SOCIAL HISTORY Never Assessed REASON FOR VISIT Pain (acute) neck, stings at base of neck x 4 days---DBennettRN, cough, congestion, diarrhea, denies fever x4 weeks PLAN OF CARE Activity Details Follow Up regular follow up Reason: VITAL SIGNS Height 65 in 2017-01-16 Weight 270 lbs 2017-01-16 Temperature 97.9 degrees Fahrenheit 2017-01-16 Heart Rate 70 bpm 2017-01-16 Respiratory Rate 20 2017-01-16 BMI 44.93 kg/m2 2017-01-16 Blood pressure systolic 124 mmHg 2017-01-16 Blood pressure diastolic 76 mmHg 2017-01-16 MEDICATIONS Medication Instructions Dosage Frequency Start Date End Date Duration Status Calcium 600 MG Active Fluticasone Propionate 50 MCG/ACT Nasally Once a day 1 spray in each nostril 24h 30 day(s) Active Proventil HFA 90 mcg/actuation 2 puffs by Inhalation route 4 times per day PRN May, Active Vitamin C 500 mg 1 tablet by Oral route 1 time per day May, Active Tramadol HCl 50 mg Orally Once a day prn severe pain 1 tablet as needed Jan, Active Omeprazole 40 mg Orally Once a day 1 capsule 24h Active Zofran 8 MG Orally every 8 hours, PRN 1 tablet Jun, 2016 03 days Active PredniSONE 20 mg Orally Once a day 1 tablet 24h 12 Jan, 2017 Jan, 07 days Active Triamcinolone Acetonide 0.1 % Externally Twice a day 1 application to affected area 12h September, Active Multivitamin Active Gabapentin 100 mg Orally 2 times a day 1 capsule 12h Active Amlodipine Besylate 10 mg Orally Once a day 1 tablet 24h Active Symbicort 160-4.5 MCG/ACT Inhalation Twice a day sample today 1 puffs May, Active Toprol XL 100 mg Orally Once a day 2 tablets 24h Active Simvastatin 10 mg Orally Once a day 1 tablet in the evening 24h Active Neurontin 300 MG Orally at bedtime 1 capsule Active Lisinopril 20 mg Orally Once a day 1 tablet 24h Active RESULTS No Results PROCEDURES No [...]
--- OUTSIDE RECORDS SUMMARY | 2018-02-08 02:31 | XMS REPORT ---
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 742038575 Problem Essential hypertension I10 Active 43121921 Problem Gastroesophageal reflux disease without esophagitis K21.9 Active 696674359 Problem PVD (peripheral vascular disease) I73.9 Active 007821353 Problem Renal artery stenosis I70.1 Active 418018683 Problem Abdominal aortic aneurysm (AAA) without rupture I71.4 Active 79995491 Problem Stenosis of right renal artery I70.1 Active [id number] Problem Prediabetes R73.03 Active 995302806 Problem Seasonal allergic rhinitis, unspecified allergic rhinitis trigger J30.2 Active 055971961 Problem Hepatic steatosis K76.0 Active 971158435 Problem Peripheral vascular disease I73.9 Active 831212521 Problem Dysphagia, unspecified R13.10 Active 20770519 Problem Anemia of chronic disease D63.8 Active 631788181 Problem Chronic kidney disease, unspecified N18.9 Active 729884578 Problem Urinary, incontinence, stress female N39.3 Active 57691189 Problem Cervicalgia M54.2 Active [id number] ALLERGIES Substance Reaction Event Type Date Status [place] Unknown Drug Allergy Jan, Active Niacin rash Drug Allergy Jan, Active Macrobid anaphylaxis Drug Allergy Jan, Active Iodine (IV contrast) Drug Allergy Jan, Active Ibuprofen (All NSAIDs) Drug Allergy Jan, Active Bactrim resp distress Drug Allergy Jan, Active ENCOUNTERS Encounter Location Date Diagnosis [facility] [address] [facility] [id number] [address] Jul, Abdominal aortic aneurysm (AAA) without rupture I71.4 ; PVD (peripheral vascular disease) I73.9 ; Renal artery stenosis I70.1 and Essential hypertension I10 [place] [address] [address] May, Essential hypertension I10 ; Pure hyperglyceridemia E78.1 ; Abdominal aortic aneurysm (AAA) without rupture I71.4 ; Chronic kidney disease, unspecified N18.9 ; Gastroesophageal reflux disease without esophagitis K21.9 ; 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 ; Stenosis of right renal artery I70.1 ; Anemia of chronic disease D63.8 and Prediabetes R73.03 [place] [address] [address] May, Tinea corporis B35.4 and Viral URI J06.9 [place] [address] [address]- 9[address] May, [place] [address] [address]- 4499 Apr, [place] [address] [address]47- 3767 Apr, Cervical radiculopathy M54.12 [facility] [address] [address] 09 Apr, 2017 Flank pain R10.9 and Acute pyelonephritis N10 [facility] [address] [address]- [address] Apr, [facility] [address] [address]- [address] Mar, [place] [address] 39[address]- 3[address] 31 Feb, 2017 Pain of right shoulder region M25.511 [place] [address] 17[address]- 2931 Feb, History of glaucoma Z86.69 ; Vision changes H53.9 ; Abdominal aortic aneurysm (AAA) without rupture I71.4 ; Xerosis of skin L85.3 and Pain in right shoulder M25.511 [place] [address] 24[address]- 6[address] Feb, [place] [address] 15230- 1524 13 Jan, 2017 Essential hypertension I10 ; Pure hyperglyceridemia E78.1 ; Chronic kidney disease, unspecified N18.9 ; Gastroesophageal reflux disease without esophagitis K21.9 ; 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 ; Stenosis of right renal artery I70.1 ; Anemia of chronic disease D63.8 ; Prediabetes R73.03 ; Pain of right shoulder region M25.511 and Homeless Z59.0 [place] [address] 9[address]- 6599 Jan, Neck pain M54.2 and Seasonal allergic rhinitis, unspecified allergic rhinitis trigger J30.2 [place] [address] 81547- 8487 Dec, [place] [address] 98819- 8020 Dec, [place] [address] 58[address]- 9064 Dec, Blood glucose abnormal R73.09 ; Essential [...] pylori infection A04.8 and Prediabetes R73.03 [facility] [place] [address] [address] Oct, Seasonal allergic rhinitis, unspecified allergic rhinitis trigger J30.2 [place] [address] 20[address]- 1762 September, Eustachian tube dysfunction, left H69.82 and Candidiasis of breast B37.89 [place] 685060- [address] Jul, Blood glucose abnormal R73.09 ; Essential hypertension I10 ; Pure hyperglyceridemia E78.1 ; Chronic kidney disease, unspecified N18.9 ; Gastroesophageal reflux disease without esophagitis K21.9 ; 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 ; Abdominal aortic aneurysm (AAA) without rupture I71.4 ; Stenosis of right renal artery I70.1 ; Anemia of chronic disease D63.8 and Acute non-recurrent maxillary sinusitis J01.00 [place] [id number]- [address]331 Jun, Acute non-recurrent maxillary sinusitis J01.00 ; Acute mucoid otitis media of left ear H65.112 ; Nausea R11.0 and Fever and chills R50.[address] [address]- [address] May, Acute right flank pain R10.[address] 35[address]- 6073 Apr, Pure hyperglyceridemia E78.1 ; Chronic kidney disease, unspecified N18.9 and Acute nasopharyngitis J00 [address] [address]- 5[address] Apr, [place] [id number]- [address]33 Apr, Blood glucose abnormal R73.09 ; Essential hypertension I10 ; Pure hyperglyceridemia E78.1 ; Chronic kidney disease, unspecified N18.9 ; Gastroesophageal reflux disease without esophagitis K21.9 ; 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 ; Abdominal aortic aneurysm (AAA) without rupture I71.4 ; Stenosis of right renal artery I70.1 ; RUQ pain R10.11 and Anemia of chronic disease D63.8 [place] [id number]- 2546 Mar, Blood glucose abnormal R73.09 [place] [address] [place] [address]45- 1165 Mar, Cellulitis of right lower leg L03.115 [facility] [address] [place] [address] -2322 Feb, [facility] [address] [place] [id number] [place] [address] 67913- 7386 Feb, Dysuria R30.0 and Upper respiratory tract infection, unspecified type J06.9 [place] [address] [place] [id number] [place] [address] 54134- 4615 Jan, [place] [address] [place] [id number] [place] [address] 84107- 1815 Jan, [place] [address] [place] [id number] [place] [address] 11240- 2137 Dec, [facility] [address] [place] [id number] [place] [address] 41079- 3177 Dec, Anemia of chronic disease D63.8 ; Essential hypertension I10 ; Pure hyperglyceridemia E78.1 ; Chronic kidney disease, unspecified N18.9 ; Gastroesophageal reflux disease without esophagitis K21.9 ; 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 and Pain in right knee M25.561 [place] [address] [place] [id number] [place] [address]- 1900 Dec, Left shoulder strain, subsequent encounter S46.912D ; Urinary frequency R35.0 ; Lung nodule, solitary R91.1 ; Essential hypertension I10 and Acute cystitis without hematuria N30.00 [place] [address] [place] [id number] [place] [address] 64181- 7896 Nov, Left-sided chest wall pain R07.89 and Abnormal chest xray R93.8 [place] [address] [place] [address] 60456- 3777 Nov, Pain of right lower extremity M79.604 ; Swelling of right lower extremity M79.89 ; Diarrhea, unspecified R19.7 ; Nausea with vomiting, unspecified R11.2 ; Left-sided chest wall pain R07.89 ; Chronic kidney disease, unspecified N18.9 ; Gastroesophageal reflux disease without esophagitis K21.9 and Other seasonal allergic rhinitis J30.[address] [address]- [address] September, Essential hypertension I10 ; Chronic kidney disease, unspecified N18.9 ; Anemia of chronic disease D63.8 ; Pure hyperglyceridemia E78.1 ; Peripheral vascular disease I73.9 ; Abnormal glucose R73.09 ; 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 ; Gastroesophageal reflux disease without esophagitis K21.9 ; Allergic rhinitis J30.9 and Rash R21 [address] [address]- 1305 Aug, Abdominal pain R10.9 and Constipation K59.[address] 64174- 2768 Jul, Injury of toe on right foot S99.921A [address] [address]21- 5431 Jul, [address] 35289- 7148 Jul, Essential hypertension I10 ; Chronic kidney disease, unspecified N18.9 ; Anemia of chronic disease D63.8 ; Pure hyperglyceridemia E78.1 ; Peripheral vascular disease I73.9 ; Abnormal glucose R73.09 ; 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 ; Gastroesophageal reflux disease without esophagitis K21.9 and Allergic rhinitis J30.[address] 27135- 3371 Jun, Low back pain M54.[address] 31174- 7560 Jun, [place] [id number]- 2546 11 May, 2015 URI (upper respiratory infection) J06.9 [place] [address] 67617- 5791 15 Apr, 2015 Essential hypertension I10 [place] [address] 07483- 3948 10 Apr, 2015 Essential hypertension I10 ; Chronic kidney disease, unspecified N18.9 ; Anemia of chronic disease D63.8 ; Pure hyperglyceridemia E78.1 ; Peripheral vascular disease I73.9 ; Abnormal glucose R73.09 ; URI ( upper respiratory infection) J06.9 ; 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 ; Gastroesophageal reflux disease without esophagitis K21.9 and Cough R05 [place] [address] 11186- 1815 27 Mar, 2015 Flank pain R10.9 and URI (upper respiratory infection) J06.9 [place] [address] 50337- 5449 Mar, Right-sided low back pain without sciatica M54.5 and Hematuria, unspecified R31.[address] 08196- 8038 Mar, Hypopigmentation L81.9 and Hyperpigmentation L81.[address] 44893- 3322 Mar, [address] 86684- 1846 Mar, Acute cystitis with hematuria N30.[address] 27537- 6155 Mar, [place] [address] [place] [address]56221- 6324 30 Feb, 2015 Furuncle L02.92 ; Hypopigmentation L81.9 ; Hyperpigmentation L81.9 ; Urinary frequency R35.0 ; Screening for malignant neoplasm of cervix Z12.4 ; Vaginal discharge N89.8 ; Urinary, incontinence, stress female N39.3 and Vaginal irritation N89.8 [place] [address] 84797- 8581 Jan, Muscle spasm 728.85 ; Unspecified peripheral vascular disease 443.9 ; Benign essential hypertension 401.1 ; Chronic renal insufficiency 585.9 ; Chronic constipation 564.00 ; GERD (gastroesophageal reflux disease) 530.81 ; Hyperlipidemia 272.4 and Chronic leg pain 729.5 [place] [address] 54624- 7612 Jan, Sinusitis 473.9 [place] [address] 09433- 4083 Dec, [place] [address] 78196- 8618 Dec, Acute bronchitis 466.[address] 62342- 1395 Dec, Acute bronchitis 466.0 [place] [address] 03484- 2523 Dec, Unspecified episodic mood disorder 296.[address] 73574- 1281 Dec, Visit for suture removal V58.[address] 37197- 4275 Nov, Allergic rhinitis 477.9 and Onychomycosis 110.1 [place] [address] 20711- 5687 Oct, Muscle spasm 728.85 ; Benign essential hypertension 401.1 ; Chronic renal insufficiency 585.9 ; Chronic constipation 564.00 ; GERD ( gastroesophageal reflux disease) 530.81 and Hyperlipidemia 272.4 [place] [address] 75746- 8786 Oct, Otalgia of left ear 388.70 [facility] [address] [address]- 9458 Oct, Unspecified episodic mood disorder 296.90 [facility] [address] [place] [id number] [place] [address] 47092 2546 September, Unspecified episodic mood disorder 296.90 [facility] [address] [place] [id number] [place] [address] 93224- 2986 September, Unspecified episodic mood disorder 296.90 [facility] [address] [address] September, Urinary frequency 788.41 and Constipation 564.00 [facility] [address] [place] [id number] [place] [address] 92185- 9556 Aug, [facility] [address] [place] [id number] [place] [address] 50749- 9989 Aug, [facility] [address] [place] [id number] [place] [address] 74269- 1124 Jul, [facility] [address] [place] [id number] [place] [address] 74489- 3912 Jul, [facility] [address] [id number] [address]- 0416 Jul, [facility] [address] [address]- 2636 Jul, [facility] [address] [id number] [address] 2546 Jul, [facility] [address] [address] 2546 Jul, [facility] [address] [place] [id number] [place] [address] 80294 2546 Jul, [facility] [address] [address] 2546 Jul, [facility] [place] [facility] [address] [id number] [place] [address]- 6367 Jul, [facility] [place] [facility] [address] [id number] [place] [address]- 2482 Jul, [facility] [place] [facility] [address] [id number] [place] [address]- 2162 Jun, [facility] [place] [facility] [address] [id number] [place] [address]- 9924 Jun, [facility] [place] [facility] [address] [id number] [place] [address]- 3266 May, [facility] [place] [facility] [address] [id number] [place] [address]- 3409 May, [facility] [place] [facility] [address] [id number] [place] [address]- 6959 May, [facility] [place] [facility] [address] [id number] [place] [address]- 9512 May, [facility] [place] [facility] [address] [id number] [place] [address]- 6688 May, [facility] [place] [facility] [address] [id number] [place] [address]- 8805 May, [facility] [place] [facility] [address] [id number] [place] [address]- 6099 May, [facility] [place] [facility] [address] [id number] [place] [address]- 9204 May, [facility] [place] [facility] [address] [id number] [place] [address]- 2490 May, [facility] [place] [facility] [address] [id number] [place] [address]- 2893 May, [facility] [place] [facility] [address] [id number] [place] [address]- 9766 May, [facility] [place] [facility] [address] [id number] [place] [address]- 1344 May, [facility] [place] [facility] [address] [id number] [place] [address]- 4056 May, [facility] [place] [facility] [address] [id number] [place] [address]- 4366 Feb, [facility] [place] [facility] [address] [id number] [place] [address]- 9783 Feb, [facility] [place] [facility] [address] [id number] [place] [address]- 1861 20 Jan, 2013 [facility] [place] [facility] [address] [id number] [place] [address]- 2393 20 Jan, 2014 [facility] [place] [facility] [address] [id number] [place] [address]- 8469 18 Jan, 2013 [facility] [place] [facility] [address] [id number] [place] [address]- 1653 18 Jan, 2013 [facility] [place] [facility] [address] [id number] [place] [address]- 8380 12 Jan, 2013 [facility] [place] [facility] [address] [id number] [place] [address]- 7921 12 Jan, 2013 [facility] [place] [facility] [address] [id number] [place] [address]- 5519 12 Jan, 2013 [facility] [place] [facility] [address] [id number] [address]- 7258 12 Jan, 2013 [facility] [place] [facility] [address] [id number], [place] [address]- 5345 11 Jan, 2013 [facility] [place] [facility] [address] [id number] [place] [address]- 8648 11 Jan, 2013 [facility] [place] [facility] [address] [id number] [place] [address]- 4807 10 Jan, 2013 [facility] [place] [facility] [address] [id number] [place] [address]- 4658 10 Jan, 2013 [facility] [place] [facility] [address] [id number] [place] [address]- 1714 Oct, [facility] [place] [facility] [address] [id number] [place] 7491 Oct, [facility] [place] [facility] [address] [id number] [place] [address]672 Oct, [facility] [place] [facility] [address] [id number] [place] [address]- 0215 Oct, [facility] [place] [facility] [address] [id number] [place] [address]- 0064 Jun, [facility] [place] [facility] [address] [id number] [place] [address]- 3641 Jun, [facility] [place] [facility] [address] [id number] [place] 1215 Jun, [facility] [place] [facility] [address] [facility] [id number] [place] [address]- 8128 Jun, [facility] [place] [facility] [address] [id number] [place] [address]- 0635 Apr, [facility] [place] [facility] [address] [facility] [id number] [place] [address]- 4992 Apr, [facility] [place] [facility] [address] [facility] [id number] [place] [address]- 1258 Feb, [facility] [place] [facility] [address] [id number] [place] [address]- 3176 Feb, [facility] [place] [facility] [address] [id number] [place] [address]- 9827 Dec, [facility] [place] [facility] [address] [id number] [place] [address]- 3292 Dec, [facility] [place] [facility] [address] [id number] [place] [address]- 2546 Nov, [facility] [place] [facility] [address] [facility] [id number] [place] [address]- 4729 Nov, [facility] [address] [id number] [place] [address]- 3938 Nov, [facility] [place] [facility] [address] [id number] [place] [address]- 9004 Oct, [facility] [address] [id number] [place] [address]- 3588 September, [facility] [place] [facility] [address] [id number] [place] [address]- 8463 September, [facility] [address] [id number] [place] [address]- 9007 Aug, [facility] [place] [facility] [address] [id number] [place] [address]- 6137 Aug, [facility] [place] [facility] [address] [id number] [place] [address]- 2227 Aug, [facility] [address] [id number] [place] [address]- 7693 Aug, [facility] [place] [facility] [address] [id number] [place] [address]- 6564 Aug, [facility] [place] [facility] [address] [id number] [place] [address]- 1546 Aug, [facility] [place] [facility] [address] [id number] [place] [address]- 1044 Jul, [facility] [place] [facility] [address] [id number], [place] [address]- 5681 Jul, [facility] [place] [facility] [address] [id number] [place] [address]- 0728 21 Jul, 2012 [facility] [place] [facility] [address] [id number] [place] [address]- 5787 15 Jul, 2012 [facility] [place] [facility] [address] [id number] [place] [address]- 9331 Jul, [facility] [place] [facility] [address] [id number], [place] [address]- 4408 Jul, [facility] [address] [id number] [place] [address]- 6346 Jun, [facility] [place] [facility] [address] [id number] [place] [address]- 8646 Jun, [facility] [address] [id number] [place] [address]- 4606 May, [facility] [place] [facility] [address] [id number] [place] [address]- 5200 May, [facility] [address] [id number] [place] [address]- 2133 Apr, [facility] [place] [facility] [address] [id number] [place] [address]- 2952 Apr, [facility] [address] [id number] [place] [address]- 3446 Apr, [facility] [place] [facility] [address] [id number] [place] [address]- 2614 Apr, [facility] [address] [id number] [place] [address]- 6195 Apr, [facility] [place] [facility] [address] [facility] [id number] [place] [address]- 5356 Mar, [facility] [place] [facility] [address] [id number] [place] [address]- 6696 Mar, [facility] [place] [facility] [address] [id number] [place] [address] 2549 Mar, [facility] [place] [facility] [address] [id number] [place] [address]- 1569 Mar, [facility] [place] [facility] [address] [id number] [place] [address]- 2896 Mar, [facility] [place] [facility] [address] [facility] [id number] [place] [address]- 1152 Mar, [facility] [place] [facility] [address] [id number] [place] [address]- 1313 Mar, [facility] [place] [facility] [address] [id number] [place] [address]- 7162 Feb, [facility] [place] [facility] [address] [id number] [place] [address]- 8534 Feb, [facility] [place] [facility] [address] [id number] [place] [address]- 2446 Feb, [facility] [place] [facility] [address] [id number] [place] [address]- 1705 Feb, [facility] [place] [facility] [address] [id number] [place] [address]- 4577 Dec, [facility] [place] [facility] [address] [id number] [place] [address]- 3285 Nov, [facility] [place] [facility] [address] [id number] [place] [address]- 8513 Nov, [facility] [place] [facility] [address] [id number] [place] [address]- 3959 Oct, [facility] [place] [facility] [address] [id number] [place] [address]- 2635 Oct, [facility] [place] [facility] [address] [id number] [place] [address]- 6555 Oct, [facility] [place] [facility] [address] [id number] [place] [address]- 0040 Oct, [facility] [place] [facility] [address] [id number] [place] [address]- 7863 Oct, [facility] [place] [facility] [address] [id number] [place] [address] 1991 Oct, [facility] [place] [facility] [address] [id number] [place] [address] 2020 Oct, [facility] [place] [facility] [address] [id number] [place] [address] Aug, [facility] [place] [facility] [address] [id number] [place] [address] Jul, [facility] [place] [facility] [address] [id number] [place] [address] Jul, [facility] [place] [facility] [address] [id number] [place] [address] Jul, [facility] [place] [facility] [address] [id number] [place] [address] Jul, [facility] [place] [facility] [address] [id number] [place] [address] Jul, [facility] [place] [facility] [address] [id number] [place] [address] Jul, [facility] [place] [facility] [address] [id number] [place] [address] Jul, [facility] [place] [facility] [address] [id number] [place] [address] Jun, [facility] [place] [facility] [address] [id number] [place] [address] May, [facility] [place] [facility] [address] [id number] [place] [address] May, [facility] [place] [facility] [address] [id number], [place] [address] May, [facility] [place] [facility] [address] [id number] [place] [address] Apr, [facility] [place] [facility] [address] [id number] [place] [address] Apr, [facility] [place] [facility] [address] [facility] [id number] [place] [address] 16 Apr, 2011 [facility] [place] [facility] [address] [id number] [place] [address] 15 Apr, 2011 [facility] [place] [facility] [address] [id number] [place] [address] Apr, [facility] [address] [id number] [place] [address] Apr, [facility] [place] [facility] [address] [id number] [place] [address] Mar, [facility] [address] [id number] [place] [address] Mar, [facility] [address] [id number] [place] [address] Mar, [facility] [address] [id number] [place] [address] Mar, [facility] [address] [id number] [place] [address] 1993 Mar, [facility] [address] [id number] [place] [address] Mar, [facility] [address] [id number] [place] [address] Mar, [facility] [address] [id number] [place] [address] Dec, [facility] [address] [id number] [place] [address] Aug, [facility] [address] [id number] [place] [address] Apr, [facility] [address] [id number] [place] [address] Mar, [facility] [place] [facility] [address] [id number] [place] [address] Mar, [facility] [place] [facility] [address] [id number] [place] [address] Mar, [facility] [place] [facility] [address] [id number] [place] [address] Mar, [facility] [address] [facility] [id number] [address] September, [facility] [address] [id number] [address] Mar, [facility] [address] [id number] [address] Feb, [facility] [id number] [address] Oct, [facility] [address] [id number] [address] September, [facility] [id number], [place] [address] Apr, [facility] [address] [id number] [address] Mar, IMMUNIZATIONS No Known Immunizations SOCIAL HISTORY Never Assessed REASON FOR VISIT Diabetes---Jia, requesting med refills from repository PLAN OF CARE Activity Details Follow Up 3 Months or as indicated Reason:DM VITAL SIGNS Height 65 in 2017-01-17 Weight 270 lbs 2017-01-17 Temperature 98.4 degrees Fahrenheit 2017-01-17 Heart Rate 70 bpm 2017-01-17 Respiratory Rate 20 2017-01-17 BMI 44.93 kg/m2 2017-01-17 Blood pressure systolic 124 mmHg 2017-01-17 Blood pressure diastolic 88 mmHg 2017-01-17 MEDICATIONS Medication Instructions Dosage Frequency Start Date End Date Duration Status Omeprazole 40 mg Orally Once a day 1 capsule 24h Active Toprol XL 200 mg Orally Once a day 1 tablets 24h Active Lisinopril 20 mg Orally Once a day 1 tablet 24h Active Amlodipine Besylate 10 mg Orally Once a day 1 tablet 24h Active Simvastatin 10 mg Orally Once a day 1 tablet in the evening 24h Active Vitamin C 500 mg 1 tablet by Oral route 1 time per day May, Active Multivitamin Active Calcium 600 MG Active Proventil HFA 90 mcg/actuation 2 puffs by Inhalation route 4 times per day PRN May, Active Symbicort 160-4.5 MCG/ACT Inhalation Twice a day sample today 1 puffs May, Active Tramadol HCl 50 mg Orally Once a day prn severe pain 1 tablet as needed Jan, Active Gabapentin 100 mg Orally 2 times a day 1 capsule 12h Active PredniSONE 20 mg Orally Once a day 1 tablet 24h Jan, Jan, 07 days Active Neurontin 300 MG Orally at bedtime 1 capsule Active Fluticasone Propionate 50 MCG/ACT Nasally Once a day 1 spray in each nostril 24h 30 day(s) Active Zofran 8 MG Orally every 8 hours, PRN 1 tablet Jun, 03 days Active Triamcinolone Acetonide 0.1 % Externally Twice a day 1 application to affected area 12h September, Active RESULTS No Results PROCEDURES Procedure Date Ordered Result Body Site COMPREHEN METABOLIC PANEL Jan 17, 2017 VENIPUNCT, ROUTINE* Jan 17, 2017 INSTRUCTIONS MEDICATIONS ADMINISTERED No Known Medications [...]
--- OUTSIDE RECORDS SUMMARY | 2018-02-08 02:32 | XMS REPORT ---
Author Author PHUC AMIN Organization [employer] Address Unknown Phone Unavailable Care Team Providers Care Hvac Tech Name Role Phone PHUC AMIN CP Unavailable [...] Instructions Start Date End Date Status Dosage Tramadol HCl [facility] [address]-16 50 mg Orally Once a day prn severe pain Jan 06, 2016 1 tablet as needed Results No Known Results Summary Purpose eClinicalWorks Submission
--- OUTSIDE RECORDS SUMMARY | 2018-02-08 02:32 | XMS REPORT ---
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 Name Role Phone PHUC AMIN Unavailable PROBLEMS Type Condition ICD9-CM Code [id number] Code Onset Dates Condition Status SNOMED Code Problem Abnormal chest x-ray R93.8 Active 897428473 Problem Hepatic steatosis K76.0 Active 759188860 Problem Abnormal glucose R73.09 Active 431015412 Problem Dysphagia, unspecified R13.10 Active 70136613 Problem Tachycardia, unspecified R00.0 Active 8326089 Problem Pain of right lower extremity M79.604 Active 747964013 Problem Chronic kidney disease, unspecified N18.9 Active 405912580 Problem Left-sided chest wall pain R07.89 Active 606064187 Problem Cervicalgia M54.2 Active 2801612758571 Problem Other seasonal allergic rhinitis J30.2 Active 047877538 Problem Lung nodule, solitary R91.1 Active 036941044 Problem Swelling of right lower extremity M79.89 Active 771049165 Problem H. pylori infection A04.8 Active 508036588 Problem Prediabetes R73.03 Active 586658610 Problem Anemia of chronic disease D63.8 Active 123099558 Problem Pure hyperglyceridemia E78.1 Active 908268159 Problem Periapical abscess without sinus K04.7 Active 419829371 Problem Stenosis of right renal artery I70.1 Active 20151498750080318 Problem Pain in right knee M25.561 Active 53091064 Problem Seasonal allergic rhinitis, unspecified allergic rhinitis trigger J30.2 Active 187605865 Problem Abdominal aortic aneurysm (AAA) without rupture I71.4 Active 20030462 Problem Peripheral vascular disease I73.9 Active 557143518 Problem Gastroesophageal reflux disease without esophagitis K21.9 Active 466269801 Problem Urinary, incontinence, stress female N39.3 Active 21516607 Problem Abnormal blood chemistry R79.9 Active 667648264 Problem Diarrhea, unspecified R19.7 Active 38927709 Problem Nausea with vomiting, unspecified R11.2 Active 3454419 Problem 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 553297918 Problem Essential hypertension I10 Active 05723600 ALLERGIES Substance Reaction Event Type Date Status [place] Unknown Drug Allergy Jul, Active Niacin rash Drug Allergy Jul, Active Macrobid anaphylaxis Drug Allergy Jul, Active Iodine (IV contrast) Drug Allergy Jul, Active Ibuprofen (All NSAIDs) Drug Allergy Jul, Active Bactrim resp distress Drug Allergy Jul, Active SOCIAL HISTORY Never Assessed PLAN OF CARE Activity Details Follow Up 3 Months Reason:HTN VITAL SIGNS Height 65 in 2016-07-20 Weight 275 lbs 2016-07-20 Temperature 98.1 degrees Fahrenheit 2016-07-20 Heart Rate 80 bpm 2016-07-20 Respiratory Rate 20 2016-07-20 BMI 45.76 kg/m2 2016-07-20 Blood pressure systolic 122 mmHg 2016-07-20 Blood pressure diastolic 80 mmHg 2016-07-20 MEDICATIONS Medication Instructions Dosage Frequency Start Date End Date Duration Status Symbicort 160-4.5 MCG/ACT Inhalation Twice a day sample today 1 puffs May, Active Triamcinolone Acetonide 0.1 % Externally Twice a day 1 application to affected area 12h September, Active Calcium 600 MG Active Proventil HFA 90 mcg/actuation 2 puffs by Inhalation route 4 times per day PRN May, Active Multivitamin Active Amlodipine Besylate 10 mg Orally Once a day 1 tablet 24h Active Neurontin 300 MG Orally at bedtime 1 capsule Jul, Active Tramadol HCl 50 mg Orally Once a day prn severe pain 1 tablet as needed Jan, Active Simvastatin 10 mg Orally Once a day 1 tablet in the evening 24h Active Fluticasone Propionate 50 MCG/ACT Nasally Once a day 1 spray in each nostril 24h 30 day(s) Active Vitamin C 500 mg 1 tablet by Oral route 1 time per day May, Active Toprol XL 100 mg Orally Once a day 2 tablets 24h Active Gabapentin 100 mg Orally 2 times a day 1 capsule 12h Active Omeprazole 40 mg Orally Once a day 1 capsule 24h Active Lisinopril 20 mg Orally Once a day 1 tablet 24h Active Cyclobenzaprine HCl 10 mg Orally at hs prn 1 tablet Dec, Active Doxycycline Hyclate 100 mg Orally every 12 hrs 1 capsule 12h Jul, Jul, 14 days Active Zofran 8 MG Orally every 8 hours, PRN 1 tablet Jun, 03 days Active RESULTS Name Result Date Reference Range [facility] 2016-07-20 Glucose, Serum 98 65-99 BUN 9 6-24 Creatinine, Serum 1.12 0.57-1.00 eGFR If NonAfricn Am 56 >59 eGFR If Africn Am 65 >59 BUN/Creatinine Ratio 8 9-23 Sodium, Serum 140 134-144 Potassium, Serum 4.5 3.5-5.2 Chloride, Serum 100 96-106 Carbon Dioxide, Total 21 18-29 Calcium, Serum 9.6 8.7-10.2 Protein, Total, Serum 7.1 6.0-8.5 Albumin, Serum 4.4 3.5-5.5 Globulin, Total 2.7 1.5-4.5 A/G Ratio 1.6 1.2-2.2 Bilirubin, Total 0.3 0.0-1.2 Alkaline Phosphatase, S 80 39-117 AST (SGOT) 26 0-40 ALT (SGPT) 30 0-32 PROCEDURES Procedure Date Ordered Result Body Site COMPREHEN METABOLIC PANEL July 20, 2016 VENIPUNCT, ROUTINE* July 20, 2016 IMMUNIZATIONS No Known Immunizations MEDICAL (GENERAL) HISTORY [...]
--- OUTSIDE RECORDS SUMMARY | 2018-02-08 02:32 | XMS REPORT ---
Author Author MARGAUX ROSAS [facility] e[employer] Address Unknown Phone Unavailable Care Team Providers Care Stacker Name Role Phone MARGAUX ROSAS CP Unavailable [...] Start Date End Date Status Dosage Lisinopril [facility] [address]-17 20 MG Orally Once a day October 29, 2014 1 tablet Nexium [facility] [address]-27 40 mg July 31, 2014 1 capsule by Oral route 1 time per day Toprol XL [facility] [address]-66 200 MG Orally Once a day 1 tablet Neurontin [facility] [address]-96 100 mg July 31, 2014 1 capsule by Oral route 3 times per day Lamisil [facility] [address]-50 250 MG Orally Once a day November 24, 2014 Feb 22, 2015 1 tablet Multivitamin [facility] [address]90 Orally not defined Calcium [facility] [address] 600 MG Orally not defined Vitamin C [facility] [address]-89 500 mg Jun 02, 2014 1 tablet by Oral route 1 time per day Norvasc [facility] [address]-84 10 mg 1 TAB orally once a day July 31, 2014 1 tablet by Oral route 1 time per day Proventil HFA [facility] [address]-89 90 mcg/actuation 2 puff(s) inhaled 4 times a day May 22, 2014 2 puffs by Inhalation route 4 times per day PRN Amlodipine Besylate [facility] [address]-00 10 MG Orally Once a day October 29, 2014 1 tablet Omeprazole [facility] [address]-00 40 MG Orally Once a day October 29, 2014 1 capsule Simvastatin [facility] [address]-09 10 MG Orally Once a day October 29, 2014 1 tablet in the evening Procedures Procedure Coding System Code Date Office Visit, Est Pt., Level 2 CPT-4 80697 Dec 29, 2014 Vital Signs Date/Time: Dec 29, 2014 Temperature 97.0 F Weight 253.2 lbs Height 65 in BMI 42.13 Index Blood Pressure Diastolic 76 mmHg Blood Pressure Systolic 120 mmHg Cardiac Monitoring Heart Rate 68 bpm Results No Known Results Summary Purpose eClinicalWorks Submission
--- OUTSIDE RECORDS SUMMARY | 2018-02-08 02:33 | XMS REPORT ---
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
--- OUTSIDE RECORDS SUMMARY | 2018-02-08 02:33 | XMS REPORT ---
Author Author PHUC AMIN Organization [employer] Address Unknown Phone Unavailable Care Team Providers Care Process Improvement Analyst Name Role Phone PHUC AMIN CP Unavailable [...]
[2018-02-08 02:38] LABS: PROTHROMBIN TIME PATIENT 12.9 SEC (12.2-14.7)
--- OUTSIDE RECORDS SUMMARY | 2018-02-08 02:42 | XMS REPORT | Continuity of Care Document ---
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 CHRONIC OBSTRUCTIVE PULMONARY DISEASE, U 02/04/2016 МАРИЯ MIRZA ROLLER PNEUMATIC Ot M54.6 PAIN IN THORACIC SPINE 02/04/2016 МАРИЯ MIRZA ROLLER PNEUMATIC Ot Z79.899 OTHER [facility] (CURRENT) DRUG THERAPY 02/04/2016 МАРИЯ MIRZA ROLLER PNEUMATIC Ot Z90.5 ACQUIRED ABSENCE OF KIDNEY 02/07/2016 МАРИЯ MIRZA ROLLER PNEUMATIC Ot E11.9 TYPE 2 DIABETES MELLITUS WITHOUT COMPLIC 02/07/2016 МАРИЯ MIRZA ROLLER PNEUMATIC Ot I10 ESSENTIAL (PRIMARY) HYPERTENSION 02/07/2016 МАРИЯ MIRZA APRN Ot J44.9 CHRONIC OBSTRUCTIVE PULMONARY DISEASE, U 02/07/2016 МАРИЯ MIRZA ROLLER PNEUMATIC Ot M54.6 PAIN IN THORACIC SPINE 02/07/2016 МАРИЯ MIRZA ROLLER PNEUMATIC Ot Z79.899 OTHER CATERING SERVER (CURRENT) DRUG THERAPY 02/07/2016 МАРИЯ MIRZA ROLLER PNEUMATIC Ot Z90.5 ACQUIRED ABSENCE OF KIDNEY 04/24/2016 Ot 789.00 ABDOMINAL PAIN, UNSPECIFIED SITE 04/24/2016 VERA SCOTT Ot 723.1 CERVICALGIA 04/24/2016 VERA SCOTT Ot 787.20 DYSPHAGIA, UNSPECIFIED 04/24/2016 MADL, PHUC L SUMMER CHILD CAREGIVER Ot M79.604 PAIN IN RIGHT LEG 04/24/2016 MADL, PHUC L SUMMER CHILD CAREGIVER Ot M79.89 OTHER SPECIFIED SOFT TISSUE DISORDERS 04/24/2016 MADL, PHUC L SUMMER CHILD CAREGIVER Ot R07.89 OTHER CHEST PAIN 04/24/2016 MADL, PHUC L SUMMER CHILD CAREGIVER Ot R93.8 ABNORMAL FINDINGS ON DIAGNOSTIC IMAGING 04/24/2016 MADL, PHUC L SUMMER CHILD CAREGIVER Ot R07.89 OTHER CHEST PAIN 04/24/2016 MADL, PHUC L SUMMER CHILD CAREGIVER Ot R93.8 ABNORMAL FINDINGS ON DIAGNOSTIC IMAGING 04/24/2016 MADL, PHUC L SUMMER CHILD CAREGIVER Ot M79.604 PAIN IN RIGHT LEG 04/24/2016 MADL, PHUC L SUMMER CHILD CAREGIVER Ot M79.89 OTHER SPECIFIED SOFT TISSUE DISORDERS 04/24/2016 PHUC AMIN SUMMER CHILD CAREGIVER Ot R07.89 OTHER CHEST PAIN 04/24/2016 MADPHUC Teixeira SUMMER CHILD CAREGIVER Ot R93.8 ABNORMAL FINDINGS ON DIAGNOSTIC IMAGING 04/24/2016 PHUC AMIN SUMMER CHILD CAREGIVER Ot M79.604 PAIN IN RIGHT LEG 04/24/2016 MADPHUC Teixeira SUMMER CHILD CAREGIVER Ot M79.89 OTHER SPECIFIED SOFT TISSUE DISORDERS 04/25/2016 MADLPHUC SUMMER CHILD CAREGIVER Ot M79.604 PAIN IN RIGHT LEG 04/25/2016 MADPHUC Teixeira SUMMER CHILD CAREGIVER Ot M79.89 OTHER SPECIFIED SOFT TISSUE DISORDERS 04/25/2016 МАРИЯ MIRZA ROLLER PNEUMATIC Ot E11.9 TYPE 2 DIABETES MELLITUS WITHOUT COMPLIC 04/25/2016 МАРИЯ MIRZA APRN Ot I10 ESSENTIAL (PRIMARY) HYPERTENSION 04/25/2016 МАРИЯ MIRZA APRN Ot J44.9 CHRONIC OBSTRUCTIVE PULMONARY DISEASE, U 04/25/2016 МАРИЯ MIRZA ROLLER PNEUMATIC Ot M54.6 PAIN IN THORACIC SPINE 04/25/2016 МАРИЯ MIRZA ROLLER PNEUMATIC Ot Z79.899 OTHER MCC (CURRENT) DRUG THERAPY 04/25/2016 МАРИЯ MIRZA ROLLER PNEUMATIC Ot Z90.5 ACQUIRED ABSENCE OF KIDNEY 04/25/2016 PHUC AMIN SUMMER CHILD CAREGIVER Ot I70.1 ATHEROSCLEROSIS OF RENAL ARTERY 04/25/2016 MADLWENDYA L SUMMER CHILD CAREGIVER Ot I71.4 ABDOMINAL AORTIC ANEURYSM, WITHOUT RUPTU 04/25/2016 MADLWENDYA Lluvia SUMMER CHILD CAREGIVER Ot K76.0 FATTY (CHANGE OF) LIVER, NOT ELSEWHERE C 04/25/2016 MADLWENDYA L SUMMER CHILD CAREGIVER Ot R10.11 RIGHT UPPER QUADRANT PAIN 04/30/2016 MADLWENDYA Lluvia SUMMER CHILD CAREGIVER Ot I70.1 ATHEROSCLEROSIS OF RENAL ARTERY 04/30/2016 MADLYIFANPHUC L SUMMER CHILD CAREGIVER Ot I71.4 ABDOMINAL AORTIC ANEURYSM, WITHOUT RUPTU 04/30/2016 MADLYIFANPHUC L SUMMER CHILD CAREGIVER Ot K76.0 FATTY (CHANGE OF) LIVER, NOT ELSEWHERE C 04/30/2016 MADLWENDYA L SUMMER CHILD CAREGIVER Ot R10.11 RIGHT UPPER QUADRANT PAIN 05/10/2016 PHUC AMIN SUMMER CHILD CAREGIVER Ot I70.1 ATHEROSCLEROSIS OF RENAL ARTERY 05/10/2016 PHUC AMIN SUMMER CHILD CAREGIVER Ot I71.4 ABDOMINAL AORTIC ANEURYSM, WITHOUT RUPTU 05/10/2016 PHUC AMIN SUMMER CHILD CAREGIVER Ot K76.0 FATTY (CHANGE OF) LIVER, NOT ELSEWHERE C 05/10/2016 PHUC AMIN SUMMER CHILD CAREGIVER Ot R10.11 RIGHT UPPER QUADRANT PAIN 05/10/2016 PHUC AMIN SUMMER CHILD CAREGIVER Ot R07.89 OTHER CHEST PAIN 05/10/2016 PHUC AMIN SUMMER CHILD CAREGIVER Ot R93.8 ABNORMAL FINDINGS ON DIAGNOSTIC IMAGING 05/10/2016 PHUC AMIN SUMMER CHILD CAREGIVER Ot M79.604 PAIN IN RIGHT LEG 05/10/2016 PHUC AMIN SUMMER CHILD CAREGIVER Ot M79.89 OTHER SPECIFIED SOFT TISSUE DISORDERS 05/11/2016 MANISHA CORREIA, VERA T Ot 883.0 OPEN WOUND OF FINGER 05/11/2016 MANISHA CORREIA, VERA T Ot E000.8 OTHER EXTERNAL CAUSE STATUS 05/11/2016 VERA DYER MD T Ot E920.8 ACC-CUTTING INSTRUM NEC 05/11/2016 МАРИЯ MIRZA APRN Ot E11.9 TYPE 2 DIABETES MELLITUS WITHOUT COMPLIC 05/11/2016 МАРИЯ MIRZA APRN Ot I10 ESSENTIAL (PRIMARY) HYPERTENSION 05/11/2016 МАРИЯ MIRZA APRN Ot J44.9 CHRONIC OBSTRUCTIVE PULMONARY DISEASE, U 05/11/2016 МАРИЯ MIRZA APRN Ot M54.6 PAIN IN THORACIC SPINE 05/11/2016 МАРИЯ MIRZA APRN Ot Z79.899 OTHER [facility] (CURRENT) DRUG THERAPY 05/11/2016 МАРИЯ MIRZA APRN Ot Z90.5 ACQUIRED ABSENCE OF KIDNEY 05/29/2016 NAVEEN FERRARO ROLLER PNEUMATIC Ot R10.9 UNSPECIFIED ABDOMINAL PAIN 07/23/2016 МАРИЯ MIRZA APRN Ot E11.9 TYPE 2 DIABETES MELLITUS WITHOUT COMPLIC 07/23/2016 МАРИЯ MIRZA APRN Ot I10 ESSENTIAL (PRIMARY) HYPERTENSION 07/23/2016 МАРИЯ MIRZA APRN Ot J44.9 CHRONIC OBSTRUCTIVE PULMONARY DISEASE, U 07/23/2016 МАРИЯ MIRZA ROLLER PNEUMATIC Ot L23.9 ALLERGIC CONTACT DERMATITIS, UNSPECIFIED 07/23/2016 МАРИЯ MIRZA ROLLER PNEUMATIC Ot R21 RASH AND OTHER NONSPECIFIC SKIN ERUPTION 07/23/2016 МАРИЯ MIRZA ROLLER PNEUMATIC Ot Z79.899 OTHER [facility] (CURRENT) DRUG THERAPY 07/23/2016 Ot 789.00 ABDOMINAL PAIN, UNSPECIFIED SITE 07/23/2016 VERA SCOTT Ot 723.1 CERVICALGIA 07/23/2016 VERA SCOTT Ot 787.20 DYSPHAGIA, UNSPECIFIED 07/23/2016 MADL, PHUC L SUMMER CHILD CAREGIVER Ot M79.604 PAIN IN RIGHT LEG 07/23/2016 MADL, PHUC L SUMMER CHILD CAREGIVER Ot M79.89 OTHER SPECIFIED SOFT TISSUE DISORDERS 07/23/2016 MADL, PHUC L SUMMER CHILD CAREGIVER Ot R07.89 OTHER CHEST PAIN 07/23/2016 MADL, PHUC L SUMMER CHILD CAREGIVER Ot R93.8 ABNORMAL FINDINGS ON DIAGNOSTIC IMAGING 07/23/2016 MADL, PHUC L SUMMER CHILD CAREGIVER Ot I70.1 ATHEROSCLEROSIS OF RENAL ARTERY 07/23/2016 MADL, PHUC L SUMMER CHILD CAREGIVER Ot I71.4 ABDOMINAL AORTIC ANEURYSM, WITHOUT RUPTU 07/23/2016 MADL, PHUC L SUMMER CHILD CAREGIVER Ot K76.0 FATTY (CHANGE OF) LIVER, NOT ELSEWHERE C 07/23/2016 MADL, PHUC L SUMMER CHILD CAREGIVER Ot R10.11 RIGHT UPPER QUADRANT PAIN 07/23/2016 NAVEEN FERRARO ROLLER PNEUMATIC Ot R10.9 UNSPECIFIED ABDOMINAL PAIN 07/25/2016 МАРИЯ MIRZA ROLLER PNEUMATIC Ot E11.9 TYPE 2 DIABETES MELLITUS WITHOUT COMPLIC 07/25/2016 МАРИЯ MIRZA ROLLER PNEUMATIC Ot I10 ESSENTIAL (PRIMARY) HYPERTENSION 07/25/2016 МАРИЯ MIRZA ROLLER PNEUMATIC Ot J44.9 CHRONIC OBSTRUCTIVE PULMONARY DISEASE, U 07/25/2016 МАРИЯ MIRZA ROLLER PNEUMATIC Ot L23.9 ALLERGIC CONTACT DERMATITIS, UNSPECIFIED 07/25/2016 МАРИЯ MIRZA ROLLER PNEUMATIC Ot R21 RASH AND OTHER NONSPECIFIC SKIN ERUPTION 07/25/2016 МАРИЯ MIRZA ROLLER PNEUMATIC Ot Z79.899 OTHER CATERING SERVER (CURRENT) DRUG THERAPY 02/07/2017 VERA SCOTT Ot 723.1 CERVICALGIA 02/07/2017 VERA SCOTT Ot 787.20 DYSPHAGIA, UNSPECIFIED 02/07/2017 MADPHUC Teixeira SUMMER CHILD CAREGIVER Ot M79.604 PAIN IN RIGHT LEG 02/07/2017 MADLPHUC SUMMER CHILD CAREGIVER Ot M79.89 OTHER SPECIFIED SOFT TISSUE DISORDERS 02/07/2017 MADLPHUC SUMMER CHILD CAREGIVER Ot R07.89 OTHER CHEST PAIN 02/07/2017 MADLPHUC SUMMER CHILD CAREGIVER Ot R93.8 ABNORMAL FINDINGS ON DIAGNOSTIC IMAGING 02/07/2017 MADPHUC Teixeira SUMMER CHILD CAREGIVER Ot I70.1 ATHEROSCLEROSIS OF RENAL ARTERY 02/07/2017 MADLPHUC SUMMER CHILD CAREGIVER Ot I71.4 ABDOMINAL AORTIC ANEURYSM, WITHOUT RUPTU 02/07/2017 MADLPHUC SUMMER CHILD CAREGIVER Ot K76.0 FATTY (CHANGE OF) LIVER, NOT ELSEWHERE C 02/07/2017 MADPHUC Teixeira SUMMER CHILD CAREGIVER Ot R10.11 RIGHT UPPER QUADRANT PAIN 02/07/2017 NAVEEN FERRARO ROLLER PNEUMATIC Ot R10.9 UNSPECIFIED ABDOMINAL PAIN 02/07/2017 SANDRA LAWSON MD Ot E11.40 TYPE 2 DIABETES MELLITUS WITH DIABETIC N 02/07/2017 SANDRA LAWSON MD Ot E78.00 PURE HYPERCHOLESTEROLEMIA, UNSPECIFIED 02/07/2017 SANDRA LAWSON MD Ot I10 ESSENTIAL (PRIMARY) HYPERTENSION 02/07/2017 SANDRA LAWSON MD Ot J44.9 CHRONIC OBSTRUCTIVE PULMONARY DISEASE, U 02/07/2017 SANDRA LAWSON MD Ot K21.9 GASTRO-ESOPHAGEAL REFLUX DISEASE WITHOUT 02/07/2017 SANDRA LAWSON MD Ot N39.0 URINARY TRACT INFECTION, SITE NOT SPECIF 02/07/2017 SANDRA LAWSON MD Ot R07.89 OTHER CHEST PAIN 02/07/2017 SANDRA LAWSON MD Ot R10.11 RIGHT UPPER QUADRANT PAIN 02/07/2017 SANDRA LAWSON MD Ot Z90.89 ACQUIRED ABSENCE OF OTHER ORGANS 02/07/2017 SANDRA LAWSON MD Ot Z96.0 PRESENCE OF UROGENITAL IMPLANTS 02/08/2017 VERA SCOTT Ot 723.1 CERVICALGIA 02/08/2017 VERA SCOTT Ot 787.20 DYSPHAGIA, UNSPECIFIED 02/08/2017 MADLPHUC SUMMER CHILD CAREGIVER Ot M79.604 PAIN IN RIGHT LEG 02/08/2017 MADLPHUC SUMMER CHILD CAREGIVER Ot M79.89 OTHER SPECIFIED SOFT TISSUE DISORDERS 02/08/2017 MADLPHUC SUMMER CHILD CAREGIVER Ot R07.89 OTHER CHEST PAIN 02/08/2017 MADLPHUC SUMMER CHILD CAREGIVER Ot R93.8 ABNORMAL FINDINGS ON DIAGNOSTIC IMAGING 02/08/2017 MADLPHUC SUMMER CHILD CAREGIVER Ot I70.1 ATHEROSCLEROSIS OF RENAL ARTERY 02/08/2017 MADLPHUC SUMMER CHILD CAREGIVER Ot I71.4 ABDOMINAL AORTIC ANEURYSM, WITHOUT RUPTU 02/08/2017 MADLPHUC SUMMER CHILD CAREGIVER Ot K76.0 FATTY (CHANGE OF) LIVER, NOT ELSEWHERE C 02/08/2017 MADLPHUC SUMMER CHILD CAREGIVER Ot R10.11 RIGHT UPPER QUADRANT PAIN 02/08/2017 NAVEEN FERRARO APRN Ot R10.9 UNSPECIFIED ABDOMINAL PAIN 02/09/2017 SANDRA LAWSON MD Ot E11.40 TYPE 2 DIABETES MELLITUS WITH DIABETIC N 02/09/2017 SANDRA LAWSON MD Ot E78.00 PURE HYPERCHOLESTEROLEMIA, UNSPECIFIED 02/09/2017 SANDRA LAWSON MD Ot I10 ESSENTIAL (PRIMARY) HYPERTENSION 02/09/2017 SANDRA LAWSON MD Ot J44.9 CHRONIC OBSTRUCTIVE PULMONARY DISEASE, U 02/09/2017 SANDRA LAWSON MD Ot K21.9 GASTRO-ESOPHAGEAL REFLUX DISEASE WITHOUT 02/09/2017 SANDRA LAWSON MD Ot N39.0 URINARY TRACT INFECTION, SITE NOT SPECIF 02/09/2017 SANDRA LAWSON MD Ot R07.89 OTHER CHEST PAIN 02/09/2017 SANDRA LAWSON MD Ot R10.11 RIGHT UPPER QUADRANT PAIN 02/09/2017 SANDRA LAWSON MD Ot Z90.89 ACQUIRED ABSENCE OF OTHER ORGANS 02/09/2017 SANDRA LAWSON MD Ot Z96.0 PRESENCE OF UROGENITAL IMPLANTS 02/09/2017 SANDRA LAWSON MD Ot E11.40 TYPE 2 DIABETES MELLITUS WITH DIABETIC N 02/09/2017 LULU MD, SANDRA J Ot E78.00 PURE HYPERCHOLESTEROLEMIA, UNSPECIFIED 02/09/2017 SANDRA LAWSON MD Ot I10 ESSENTIAL (PRIMARY) HYPERTENSION 02/09/2017 LULU CORREIA, SANDRA Null Ot J44.9 CHRONIC OBSTRUCTIVE PULMONARY DISEASE, U 02/09/2017 SANDRA LAWSON MD Ot K21.9 GASTRO-ESOPHAGEAL REFLUX DISEASE WITHOUT 02/09/2017 SANDRA LAWSON MD Ot N39.0 URINARY TRACT INFECTION, SITE NOT SPECIF 02/09/2017 SANDRA LAWSON MD Ot R07.89 OTHER CHEST PAIN 02/09/2017 SANDRA LAWSON MD Ot R10.11 RIGHT UPPER QUADRANT PAIN 02/09/2017 SANDRA LAWSON MD Ot Z90.89 ACQUIRED ABSENCE OF OTHER ORGANS 02/09/2017 SANDRA LAWSON MD Ot Z96.0 PRESENCE OF UROGENITAL IMPLANTS 03/06/2017 ADARSH DO, STANLEY K Ot 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 03/06/2017 ADARSH DO, STANLEY K Ot E78.00 PURE HYPERCHOLESTEROLEMIA, UNSPECIFIED 03/06/2017 ADARSH DO, STANLEY K Ot I12.9 HYPERTENSIVE CHRONIC KIDNEY DISEASE W ST 03/06/2017 ADARSH DO, STANLEY K Ot K21.9 GASTRO-ESOPHAGEAL REFLUX DISEASE WITHOUT 03/06/2017 ADARSH DO, STANLEY K Ot N18.9 CHRONIC KIDNEY DISEASE, UNSPECIFIED 03/06/2017 ADARSH DO, STANLEY K Ot N39.0 URINARY TRACT INFECTION, SITE NOT SPECIF 03/06/2017 ADARSH DO, STANLEY K Ot R10.30 LOWER ABDOMINAL PAIN, UNSPECIFIED 03/06/2017 ADARSH DO, STANLEY K Ot Z87.891 PERSONAL HISTORY OF NICOTINE DEPENDENCE 03/06/2017 ADARSH DO, STANLEY K Ot Z90.89 ACQUIRED ABSENCE OF OTHER ORGANS 03/12/2017 ADARSH DO, STANLEY K Ot 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 03/12/2017 ADARSH DO, STANLEY K Ot E78.00 PURE HYPERCHOLESTEROLEMIA, UNSPECIFIED 03/12/2017 ADARSH DO, STANLEY K Ot I12.9 HYPERTENSIVE CHRONIC KIDNEY DISEASE W ST 03/12/2017 ADARSH DO, STANLEY K Ot K21.9 GASTRO-ESOPHAGEAL REFLUX DISEASE WITHOUT 03/12/2017 ADARSH DO, STANLEY K Ot N18.9 CHRONIC KIDNEY DISEASE, UNSPECIFIED 03/12/2017 STANLEY ALTAMIRANO DO Ot N39.0 URINARY TRACT INFECTION, SITE NOT SPECIF 03/12/2017 STANLEY ALTAMIRANO DO Ot R10.30 LOWER ABDOMINAL PAIN, UNSPECIFIED 03/12/2017 STANLEY ALTAMIRANO DO Ot Z87.891 PERSONAL HISTORY OF NICOTINE DEPENDENCE 03/12/2017 STANLEY ALTAMIRANO DO Ot Z90.89 ACQUIRED ABSENCE OF OTHER ORGANS 04/25/2017 DIMAS GARCIA MD Ot E11.40 TYPE 2 DIABETES MELLITUS WITH DIABETIC N 04/25/2017 DIMAS GARCIA MD, Ot E11.51 TYPE 2 DIABETES W DIABETIC PERIPHERAL AN 04/25/2017 DIMAS GARCIA MD, Ot E66.9 OBESITY, UNSPECIFIED 04/25/2017 DIMAS GARCIA MD, Ot E78.00 PURE HYPERCHOLESTEROLEMIA, UNSPECIFIED 04/25/2017 DIMAS GARCIA MD Ot I10 ESSENTIAL (PRIMARY) HYPERTENSION 04/25/2017 DIMAS GARCIA MD, Ot J44.9 CHRONIC OBSTRUCTIVE PULMONARY DISEASE, U 04/25/2017 DIMAS GARCIA MD Ot K21.9 GASTRO-ESOPHAGEAL REFLUX DISEASE WITHOUT 04/25/2017 DIMAS GARCIA MD Ot N39.0 URINARY TRACT INFECTION, SITE NOT SPECIF 04/25/2017 DIMAS GARCIA MD Ot R11.0 NAUSEA 04/25/2017 DIMAS GARCIA MD Ot R19.7 DIARRHEA, UNSPECIFIED 04/25/2017 DIMAS GARCIA MD Ot Z68.39 BODY MASS INDEX (BMI) 39.0-39.9, ADULT 04/25/2017 DIMAS GARCIA MD Ot Z87.891 PERSONAL HISTORY OF NICOTINE DEPENDENCE 04/25/2017 DIMAS GARCIA MD Ot Z90.89 ACQUIRED ABSENCE OF OTHER ORGANS 08/29/2017 MAKENZIE CHAPMAN MD, Ot I10 ESSENTIAL (PRIMARY) HYPERTENSION 08/29/2017 MAKENZIE CHAPMAN MD, Ot I25.10 ATHSCL HEART DISEASE OF [place] CORONARY 08/29/2017 MAKENZIE CHAPMAN MD Ot I34.0 NONRHEUMATIC MITRAL (VALVE) INSUFFICIENC 08/29/2017 MAKENZIE CHAPMAN MD Ot I70.1 ATHEROSCLEROSIS OF RENAL ARTERY 08/29/2017 MAKENZIE CHAPMAN MD Ot I71.4 ABDOMINAL AORTIC ANEURYSM, WITHOUT RUPTU 08/29/2017 MAKENZIE CHAPMAN MD Ot R00.0 TACHYCARDIA, UNSPECIFIED 08/29/2017 MAKENZIE CHAPMAN MD Ot R07.89 OTHER CHEST PAIN 08/29/2017 MAKENZIE CHAPMAN MD Ot Z82.49 FAMILY HX OF [place] HEART DIS AND OTH DI 08/29/2017 MAKENZIE CHAPMAN MD Ot Z95.820 PERIPHERAL VASCULAR ANGIOPLASTY STATUS W 09/03/2017 MAKENZIE CHAPMAN MD Ot I10 ESSENTIAL (PRIMARY) HYPERTENSION 09/03/2017 MAKENZIE CHAPMAN MD Ot I25.10 ATHSCL HEART DISEASE OF [place] CORONARY 09/03/2017 MAKENZIE CHAPMAN MD Ot I34.0 NONRHEUMATIC MITRAL (VALVE) INSUFFICIENC 09/03/2017 MAKENZIE CHAPMAN MD Ot I70.1 ATHEROSCLEROSIS OF RENAL ARTERY 09/03/2017 MAKENZIE CHAPMAN MD Ot I71.4 ABDOMINAL AORTIC ANEURYSM, WITHOUT RUPTU 09/03/2017 MAKENZIE CHAPMAN MD Ot R00.0 TACHYCARDIA, UNSPECIFIED 09/03/2017 MAKENZIE CHAPMAN MD Ot R07.89 OTHER CHEST PAIN 09/03/2017 MAKENZIE CHAPMAN MD Ot Z82.49 FAMILY HX OF [place] HEART DIS AND OTH DI 09/03/2017 MAKENZIE CHAPMAN MD Ot Z95.820 PERIPHERAL VASCULAR ANGIOPLASTY STATUS W 09/12/2017 MAKEZNIE CHAPMAN MD Ot I10 ESSENTIAL (PRIMARY) HYPERTENSION 09/12/2017 MAKENZIE CHAPMAN MD Ot I25.10 ATHSCL HEART DISEASE OF [place] CORONARY 09/12/2017 MAKENZIE CHAPMAN MD Ot I34.0 NONRHEUMATIC MITRAL (VALVE) INSUFFICIENC 09/12/2017 MAKENZIE CHAPMAN MD Ot I70.1 ATHEROSCLEROSIS OF RENAL ARTERY 09/12/2017 MAKENZIE CHAPMAN MD Ot I71.4 ABDOMINAL AORTIC ANEURYSM, WITHOUT RUPTU 09/12/2017 MAKENZIE CHAPMAN MD Ot R00.0 TACHYCARDIA, UNSPECIFIED 09/12/2017 MAKENZIE CHAPMAN MD Ot R07.89 OTHER CHEST PAIN 09/12/2017 MAKENZIE CHAPMAN MD Ot Z82.49 FAMILY HX OF [place] HEART DIS AND OTH DI 09/12/2017 ARI CORREIA, MAKENZIE Null Ot Z95.820 PERIPHERAL VASCULAR ANGIOPLASTY STATUS W Procedures Code Description Performed By Performed On 00.40 PROCEDURE ON SINGLE VESSEL 03/16/2011 00.46 INSERTION OF TWO VASCULAR STENTS 03/16/2011 39.50 ANGIOPLASTY OF OTHER NON- CORONARY VESSEL 03/16/2011 39.90 INSEJ [id number] PERIPHERAL NON-CO 03/16/2011 88.42 CONTRAST AORTOGRAM 03/16/2011 88.45 CONTRAST RENAL ARTERIOGR 03/16/2011 [id number] STREP A (IN-HOUSE) 04/02/2012 66724 ROUTINE VENIPUNCTURE 04/26/2012 26480 CBC 04/26/2012 95634 RENAL PROFILE 04/27/2012 [id number] GFR CALC (RESULT ONLY) 04/27/2012 94871 TSH 04/27/2012 19128 A1C (RML) 04/27/2012 Nephrolog Gabi William 05/29/2012 [id number] ROUTINE VENIPUNCTURE 08/06/2012 [id number] GFR CALC (RESULT ONLY) 08/07/2012 [id number] RENAL PROFILE 08/07/2012 28132 CBC 08/07/2012 CARDIOLOG [facility]. 10/30/2013 27117 CBC 01/14/2014 [id number] GFR CALC (RESULT ONLY) 01/14/2014 62520 BMP 01/14/2014 08442 LIPID PANEL 01/14/2014 90175 LIVER PANEL (LFT) 01/14/2014 80311 TSH 01/14/2014 99568 A1C (RML) 01/14/2014 34849 ROUTINE VENIPUNCTURE 01/15/2014 35052 THERAPUTIC INJ SQ/IM 01/24/2014 J0696 ROCEPHIN INJ 1 g 01/24/2014 56063 ROUTINE VENIPUNCTURE 07/31/2014 84909 STREP A (IN-HOUSE) 07/31/2014 56267 MONO TEST (IN-HOUSE) 07/31/2014 21686 BARIUM SWALLOW XRAY MODIFIED 07/31/2014 45961 CMP 07/31/2014 51584 CBC 07/31/2014 Results Test Result Range Complete blood count (CBC) with automated white blood cell (WBC) differential - 02/04/16 11:10 Blood leukocytes automated count (number/volume) 5.1 10*3/uL 4.3-11.0 Blood erythrocytes automated count (number/volume) 3.72 10*6/uL 4.35-5.85 Venous blood hemoglobin measurement (mass/volume) 11.5 g/dL 11.5-16.0 Blood hematocrit (volume fraction) 36 % 35-52 Automated erythrocyte mean corpuscular volume 96 [foz_us] 80-99 Automated erythrocyte mean corpuscular hemoglobin (mass per erythrocyte) 31 pg 25-34 Automated erythrocyte mean corpuscular hemoglobin concentration measurement ( mass/volume) 32 g/dL 32-36 Automated erythrocyte distribution width ratio 13.5 % 10.0-14.5 Automated blood platelet count (count/volume) 162 10*3/uL 130-400 Automated blood platelet mean volume measurement 10.9 [foz_us] 7.4-10.4 Automated blood neutrophils/100 leukocytes 61 % 42-75 Automated blood lymphocytes/100 leukocytes 32 % 12-44 Blood monocytes/100 leukocytes 6 % 0-12 Automated blood eosinophils/100 leukocytes 2 % 0-10 Automated blood basophils/100 leukocytes 0 % 0-10 Blood neutrophils automated count (number/volume) 3.1 10*3 1.8-7.8 Blood lymphocytes automated count (number/volume) 1.6 10*3 1.0-4.0 Blood monocytes automated count (number/volume) 0.3 10*3 0.0-1.0 Automated eosinophil count 0.1 10*3/uL 0.0-0.3 Automated blood basophil count (count/volume) 0.0 10*3/uL 0.0-0.1 PT panel in platelet poor plasma by coagulation assay - 02/04/16 11:10 Prothrombin time (PT) in platelet poor plasma by coagulation assay 12.5 s 12.2-14.7 INR in platelet poor plasma or blood by coagulation assay 1.0 0.8-1.4 Activated partial thromboplastin time (aPTT) in platelet poor plasma bycoagulation assay - 02/04/16 11:10 Activated partial thromboplastin time (aPTT) in platelet poor plasma bycoagulation assay 29 s 24-35 Comprehensive metabolic panel - 02/04/16 11:10 Serum or plasma sodium measurement (moles/volume) 139 mmol/L 135-145 Serum or plasma potassium measurement (moles/volume) 3.9 mmol/L 3.6-5.0 Serum or plasma chloride measurement (moles/volume) 108 mmol/L 98-107 Carbon dioxide 21 mmol/L 21-32 Serum or plasma anion gap determination (moles/volume) 10 mmol/L 5-14 Serum or plasma urea nitrogen measurement (mass/volume) 7 mg/dL 7-18 Serum or plasma creatinine measurement (mass/volume) 1.15 mg/dL 0.60-1.30 Serum or plasma urea nitrogen/creatinine mass ratio 6 NRG Serum or plasma creatinine measurement with calculation of estimated glomerular filtration rate 49 NRG Serum or plasma glucose measurement (mass/volume) 150 mg/dL 70-105 Serum or plasma calcium measurement (mass/volume) 9.5 mg/dL 8.5-10.1 Serum or plasma total bilirubin measurement (mass/volume) 0.5 mg/dL 0.1-1.0 Serum or plasma alkaline phosphatase measurement (enzymatic activity/volume) 76 U/L 40-136 Serum or plasma aspartate aminotransferase measurement (enzymatic activity/ volume) 20 U/L 5-34 Serum or plasma alanine aminotransferase measurement (enzymatic activity/volume ) 24 U/L 0-55 Serum or plasma protein measurement (mass/volume) 7.0 g/dL 6.4-8.2 Serum or plasma albumin measurement (mass/volume) 4.3 g/dL 3.2-4.5 Magnesium - 02/04/16 11:10 Magnesium 2.2 mg/dL 1.8-2.4 Serum or plasma troponin i.cardiac measurement (mass/volume) - 02/04/16 11:10 Serum or plasma troponin i.cardiac measurement (mass/volume) < ng/ mL <0.30 Myoglobin, serum - 02/04/16 11:10 Myoglobin, serum 52.1 ng/mL 10.0-92.0 CBC With Differential/Platelet - 03/29/16 12:11 WBC 6.3 x10E3/uL 3.4-10.8 RBC 3.99 x10E6/uL 3.77-5.28 Hemoglobin 12.1 g/dL 11.1-15.9 Hematocrit 36.5 % 34.0-46.6 MCV 92 fL 79-97 MCH 30.3 pg 26.6-33.0 MCHC 33.2 g/dL 31.5-35.7 RDW 14.1 % 12.3-15.4 Platelets 220 x10E3/uL 150-379 Neutrophils 64 % Lymphs 27 % Monocytes 6 % Eos 3 % Basos 0 % Neutrophils (Absolute) 4.0 x10E3/uL 1.4-7.0 Lymphs (Absolute) 1.7 x10E3/uL 0.7-3.1 Monocytes(Absolute) 0.4 x10E3/uL 0.1-0.9 Eos (Absolute) 0.2 x10E3/uL 0.0-0.4 Baso (Absolute) 0.0 x10E3/uL 0.0-0.2 Immature Granulocytes 0 % Immature Grans (Abs) 0.0 x10E3/uL 0.0-0.1 Comp. Metabolic Panel (14) - 03/29/16 12:11 Glucose, Serum 120 mg/dL 65-99 BUN 12 mg/dL 6-24 Creatinine, Serum 1.21 mg/dL 0.57-1.00 eGFR If NonAfricn Am 51 mL/min/1.73 >59 eGFR If Africn Am 59 mL/min/1.73 >59 BUN/Creatinine Ratio 10 9-23 Sodium, Serum 137 mmol/L 136-144 Potassium, Serum 4.5 mmol/L 3.5-5.2 Chloride, Serum 98 mmol/L 97-106 Carbon Dioxide, Total 18 mmol/L 18-29 Calcium, Serum 9.5 mg/dL 8.7-10.2 Protein, Total, Serum 7.2 g/dL 6.0-8.5 Albumin, Serum 4.5 g/dL 3.5-5.5 Globulin, Total 2.7 g/dL 1.5-4.5 A/G Ratio 1.7 1.1-2.5 Bilirubin, Total 0.4 mg/dL 0.0-1.2 Alkaline Phosphatase, S 86 IU/L 39-117 AST (SGOT) 24 IU/L 0-40 ALT (SGPT) 28 IU/L 0-32 CBC With Differential/Platelet - 05/05/16 10:34 WBC 6.8 x10E3/uL 3.4-10.8 RBC 4.02 x10E6/uL 3.77-5.28 Hemoglobin 12.1 g/dL 11.1-15.9 Hematocrit 36.2 % 34.0-46.6 MCV 90 fL 79-97 MCH 30.1 pg 26.6-33.0 MCHC 33.4 g/dL 31.5-35.7 RDW 14.1 % 12.3-15.4 Platelets 226 x10E3/uL 150-379 Neutrophils 69 % Lymphs 22 % Monocytes 7 % Eos 2 % Basos 0 % Neutrophils (Absolute) 4.7 x10E3/uL 1.4-7.0 Lymphs (Absolute) 1.5 x10E3/uL 0.7-3.1 Monocytes(Absolute) 0.5 x10E3/uL 0.1-0.9 Eos (Absolute) 0.1 x10E3/uL 0.0-0.4 Baso (Absolute) 0.0 x10E3/uL 0.0-0.2 Immature Granulocytes 0 % Immature Grans (Abs) 0.0 x10E3/uL 0.0-0.1 Comp. Metabolic Panel (14) - 05/05/16 10:34 Glucose, Serum 138 mg/dL 65-99 BUN 10 mg/dL 6-24 Creatinine, Serum 1.17 mg/dL 0.57-1.00 eGFR If NonAfricn Am 53 mL/min/1.73 >59 eGFR If Africn Am 61 mL/min/1.73 >59 BUN/Creatinine Ratio 9 9-23 Sodium, Serum 139 mmol/L 134-144 Potassium, Serum 4.8 mmol/L 3.5-5.2 Chloride, Serum 98 mmol/L 96-106 Carbon Dioxide, Total 24 mmol/L 18-29 Calcium, Serum 9.9 mg/dL 8.7-10.2 Protein, Total, Serum 7.0 g/dL 6.0-8.5 Albumin, Serum 4.6 g/dL 3.5-5.5 Globulin, Total 2.4 g/dL 1.5-4.5 A/G Ratio 1.9 1.1-2.5 Bilirubin, Total 0.4 mg/dL 0.0-1.2 Alkaline Phosphatase, S 84 IU/L 39-117 AST (SGOT) 20 IU/L 0-40 ALT (SGPT) 25 IU/L 0-32 Lipid Panel - 05/05/16 10:34 Cholesterol, Total 204 mg/dL 100-199 Triglycerides 235 mg/dL 0-149 HDL Cholesterol 33 mg/dL >39 VLDL Cholesterol John 47 mg/dL 5-40 LDL Cholesterol Calc 124 mg/dL 0-99 Comp. Metabolic Panel (14) - 07/20/16 13:03 Glucose, Serum 98 mg/dL 65-99 BUN 9 mg/dL 6-24 Creatinine, Serum 1.12 mg/dL 0.57-1.00 eGFR If NonAfricn Am 56 mL/min/1.73 >59 eGFR If Africn Am 65 mL/min/1.73 >59 BUN/Creatinine Ratio 8 9-23 Sodium, Serum 140 mmol/L 134-144 Potassium, Serum 4.5 mmol/L 3.5-5.2 Chloride, Serum 100 mmol/L 96-106 Carbon Dioxide, Total 21 mmol/L 18-29 Calcium, Serum 9.6 mg/dL 8.7-10.2 Protein, Total, Serum 7.1 g/dL 6.0-8.5 Albumin, Serum 4.4 g/dL 3.5-5.5 Globulin, Total 2.7 g/dL 1.5-4.5 A/G Ratio 1.6 1.2-2.2 Bilirubin, Total 0.3 mg/dL 0.0-1.2 Alkaline Phosphatase, S 80 IU/L 39-117 AST (SGOT) 26 IU/L 0-40 ALT (SGPT) 30 IU/L 0-32 CBC With Differential/Platelet - 12/06/16 10:12 WBC 5.5 x10E3/uL 3.4-10.8 RBC 3.78 x10E6/uL 3.77-5.28 Hemoglobin 11.3 g/dL 11.1-15.9 Hematocrit 35.5 % 34.0-46.6 MCV 94 fL 79-97 MCH 29.9 pg 26.6-33.0 MCHC 31.8 g/dL 31.5-35.7 RDW 14.5 % 12.3-15.4 Platelets 196 x10E3/uL 150-379 Neutrophils 69 % Lymphs 23 % Monocytes 6 % Eos 2 % Basos 0 % Neutrophils (Absolute) 3.7 x10E3/uL 1.4-7.0 Lymphs (Absolute) 1.3 x10E3/uL 0.7-3.1 Monocytes(Absolute) 0.3 x10E3/uL 0.1-0.9 Eos (Absolute) 0.1 x10E3/uL 0.0-0.4 Baso (Absolute) 0.0 x10E3/uL 0.0-0.2 Immature Granulocytes 0 % Immature Grans (Abs) 0.0 x10E3/uL 0.0-0.1 Comp. Metabolic Panel (14) - 12/06/16 10:12 Glucose, Serum 160 mg/dL 65-99 BUN 12 mg/dL 6-24 Creatinine, Serum 1.24 mg/dL 0.57-1.00 eGFR If NonAfricn Am 50 mL/min/1.73 >59 eGFR If Africn Am 57 mL/min/1.73 >59 BUN/Creatinine Ratio 10 9-23 Sodium, Serum 140 mmol/L 134-144 Potassium, Serum 4.3 mmol/L 3.5-5.2 Chloride, Serum 101 mmol/L 96-106 Carbon Dioxide, Total 19 mmol/L 18-29 Calcium, Serum 9.3 mg/dL 8.7-10.2 Protein, Total, Serum 7.0 g/dL 6.0-8.5 Albumin, Serum 4.5 g/dL 3.5-5.5 Globulin, Total 2.5 g/dL 1.5-4.5 A/G Ratio 1.8 1.2-2.2 Bilirubin, Total 0.3 mg/dL 0.0-1.2 Alkaline Phosphatase, S 83 IU/L 39-117 AST (SGOT) 20 IU/L 0-40 ALT (SGPT) 24 IU/L 0-32 Magnesium, Serum - 12/06/16 10:12 Magnesium, Serum 1.9 mg/dL 1.6-2.3 Comp. Metabolic Panel (14) - 01/17/17 11:14 Glucose, Serum 129 mg/dL 65-99 BUN 10 mg/dL 6-24 Creatinine, Serum 1.15 mg/dL 0.57-1.00 eGFR If NonAfricn Am 54 mL/min/1.73 >59 eGFR If Africn Am 62 mL/min/1.73 >59 BUN/Creatinine Ratio 9 9-23 Sodium, Serum 140 mmol/L 134-144 Potassium, Serum 4.5 mmol/L 3.5-5.2 Chloride, Serum 100 mmol/L 96-106 Carbon Dioxide, Total 24 mmol/L 18-29 Calcium, Serum 9.5 mg/dL 8.7-10.2 Protein, Total, Serum 7.3 g/dL 6.0-8.5 Albumin, Serum 4.5 g/dL 3.5-5.5 Globulin, Total 2.8 g/dL 1.5-4.5 A/G Ratio 1.6 1.2-2.2 Bilirubin, Total 0.4 mg/dL 0.0-1.2 Alkaline Phosphatase, S 80 IU/L 39-117 AST (SGOT) 24 IU/L 0-40 ALT (SGPT) 25 IU/L 0-32 Complete blood count (CBC) with automated white blood cell (WBC) differential - 02/07/17 19:02 Blood leukocytes automated count (number/volume) 5.5 10*3/uL 4.3-11.0 Blood erythrocytes automated count (number/volume) 4.05 10*6/uL 4.35-5.85 Venous blood hemoglobin measurement (mass/volume) 12.1 g/dL 11.5-16.0 Blood hematocrit (volume fraction) 38 % 35-52 Automated erythrocyte mean corpuscular volume 95 [foz_us] 80-99 Automated erythrocyte mean corpuscular hemoglobin (mass per erythrocyte) 30 pg 25-34 Automated erythrocyte mean corpuscular hemoglobin concentration measurement ( mass/volume) 32 g/dL 32-36 Automated erythrocyte distribution width ratio 13.6 % 10.0-14.5 Automated blood platelet count (count/volume) 185 10*3/uL 130-400 Automated blood platelet mean volume measurement 11.1 [foz_us] 7.4-10.4 Automated blood neutrophils/100 leukocytes 63 % 42-75 Automated blood lymphocytes/100 leukocytes 27 % 12-44 Blood monocytes/100 leukocytes 7 % 0-12 Automated blood eosinophils/100 leukocytes 2 % 0-10 Automated blood basophils/100 leukocytes 1 % 0-10 Blood neutrophils automated count (number/volume) 3.5 10*3 1.8-7.8 Blood lymphocytes automated count (number/volume) 1.5 10*3 1.0-4.0 Blood monocytes automated count (number/volume) 0.4 10*3 0.0-1.0 Automated eosinophil count 0.1 10*3/uL 0.0-0.3 Automated blood basophil count (count/volume) 0.0 10*3/uL 0.0-0.1 PT panel in platelet poor plasma by coagulation assay - 02/07/17 19:02 Prothrombin time (PT) in platelet poor plasma by coagulation assay 12.1 s 12.2-14.7 INR in platelet poor plasma or blood by coagulation assay 0.9 0.8-1.4 Activated partial thromboplastin time (aPTT) in platelet poor plasma bycoagulation assay - 02/07/17 19:02 Activated partial thromboplastin time (aPTT) in platelet poor plasma bycoagulation assay 28 s 24-35 Comprehensive metabolic panel - 02/07/17 19:02 Serum or plasma sodium measurement (moles/volume) 138 mmol/L 135-145 Serum or plasma potassium measurement (moles/volume) 3.8 mmol/L 3.6-5.0 Serum or plasma chloride measurement (moles/volume) 104 mmol/L 98-107 Carbon dioxide 24 mmol/L 21-32 Serum or plasma anion gap determination (moles/volume) 10 mmol/L 5-14 Serum or plasma urea nitrogen measurement (mass/volume) 12 mg/dL 7-18 Serum or plasma creatinine measurement (mass/volume) 1.30 mg/dL 0.60-1.30 Serum or plasma urea nitrogen/creatinine mass ratio 9 NRG Serum or plasma creatinine measurement with calculation of estimated glomerular filtration rate 43 NRG Serum or plasma glucose measurement (mass/volume) 144 mg/dL 70-105 Serum or plasma calcium measurement (mass/volume) 9.4 mg/dL 8.5-10.1 Serum or plasma total bilirubin measurement (mass/volume) 0.4 mg/dL 0.1-1.0 Serum or plasma alkaline phosphatase measurement (enzymatic activity/volume) 82 U/L 40-136 Serum or plasma aspartate aminotransferase measurement (enzymatic activity/ volume) 22 U/L 5-34 Serum or plasma alanine aminotransferase measurement (enzymatic activity/volume ) 29 U/L 0-55 Serum or plasma protein measurement (mass/volume) 7.7 g/dL 6.4-8.2 Serum or plasma albumin measurement (mass/volume) 4.5 g/dL 3.2-4.5 Magnesium - 02/07/17 19:02 Magnesium 2.1 mg/dL 1.8-2.4 Serum or plasma troponin i.cardiac measurement (mass/volume) - 02/07/17 19:02 Serum or plasma troponin i.cardiac measurement (mass/volume) < ng/ mL <0.30 Myoglobin, serum - 02/07/17 19:02 Myoglobin, serum 69.5 ng/mL 10.0-92.0 Lipase - 02/07/17 19:02 Lipase 34 U/L 8-78 Complete urinalysis with reflex to culture - 02/07/17 20:35 Urine color determination YELLOW NRG Urine clarity determination CLEAR NRG Urine pH measurement by test strip 6 5-9 Specific gravity of urine by test strip 1.010 1.016- 1.022 Urine protein assay by test strip, semi-quantitative NEGATIVE NEGATIVE Urine glucose detection by automated test strip NEGATIVE NEGATIVE Erythrocytes detection in urine sediment by light microscopy NEGATIVE NEGATIVE Urine ketones detection by automated test strip NEGATIVE NEGATIVE Urine nitrite detection by test strip NEGATIVE NEGATIVE Urine total bilirubin detection by test strip NEGATIVE NEGATIVE Urine urobilinogen measurement by automated test strip (mass/volume) NORMAL NORMAL Urine leukocyte esterase detection by dipstick 3+ NEGATIVE Automated urine sediment erythrocyte count by microscopy (number/high power field) NONE NRG Automated urine sediment leukocyte count by microscopy (number/high power field ) [HPF] NRG Bacteria detection in urine sediment by light microscopy MODERATE NRG Squamous epithelial cells detection in urine sediment by light microscopy 2-5 NRG Crystals detection in urine sediment by light microscopy NONE NRG Casts detection in urine sediment by light microscopy NONE NRG Mucus detection in urine sediment by light microscopy NEGATIVE NRG Complete urinalysis with reflex to culture YES NRG Urine drug screening test - 02/07/17 20:35 Urine phencyclidine detection by screening method NEGATIVE NEGATIVE Urine benzodiazepines detection by screening method NEGATIVE NEGATIVE Urine cocaine detection NEGATIVE NEGATIVE Urine amphetamines detection by screening method NEGATIVE NEGATIVE Urine methamphetamine detection by screening method NEGATIVE NEGATIVE Urine cannabinoids detection by screening method NEGATIVE NEGATIVE Urine opiates detection by screening method NEGATIVE NEGATIVE Urine barbiturates detection NEGATIVE NEGATIVE Screening urine tricyclic antidepressants detection NEGATIVE NEGATIVE Urine methadone detection by screening method NEGATIVE NEGATIVE Urine oxycodone detection NEGATIVE NEGATIVE Urine propoxyphene detection NEGATIVE NEGATIVE Bacterial urine culture - 02/07/17 20:35 Bacterial urine culture [id number] NRG COLONY COUNT >100,000/ML NRG FTX;REPORTABLE SENSITIVITY REPORTED 02/09/17 8:25 NRG URINE CULTURE RESULTS PLUS NRG Bacterial susceptibility panel - 02/07/17 20:35 Gentamicin susceptibility test by minimum inhibitory concentration < = NRG Trimethoprim/sulfamethoxazole susceptibility test by minimum inhibitoryconcentration <= NRG Ampicillin susceptibility test by minimum inhibitory concentration 4 NRG Tobramycin susceptibility test by minimum inhibitory concentration < = NRG Cefazolin susceptibility test by minimum inhibitory concentration < = NRG Ceftriaxone susceptibility test by minimum inhibitory concentration <= NRG Ampicillin/sulbactam susceptibility test by minimum inhibitory concentration <= NRG Piperacillin/tazobactam susceptibility test by minimum inhibitory concentration <= NRG Ciprofloxacin susceptibility test by minimum inhibitory concentration <= NRG Meropenem susceptibility test by minimum inhibitory concentration < = NRG Nitrofurantoin susceptibility test by minimum inhibitory concentration <= NRG Aztreonam susceptibility test by minimum inhibitory concentration < = NRG Extended spectrum beta lactamase (ESBL) producing bacteria susceptibility test by minimum inhibitory concentration - NRG Serum or plasma troponin i.cardiac measurement (mass/volume) - 02/07/17 22:00 Serum or plasma troponin i.cardiac measurement (mass/volume) < ng/ mL <0.30 Complete blood count (CBC) with automated white blood cell (WBC) differential - 03/06/17 20:50 Blood leukocytes automated count (number/volume) 9.4 10*3/uL 4.3-11.0 Blood erythrocytes automated count (number/volume) 4.04 10*6/uL 4.35-5.85 Venous blood hemoglobin measurement (mass/volume) 12.4 g/dL 11.5-16.0 Blood hematocrit (volume fraction) 38 % 35-52 Automated erythrocyte mean corpuscular volume 94 [foz_us] 80-99 Automated erythrocyte mean corpuscular hemoglobin (mass per erythrocyte) 31 pg 25-34 Automated erythrocyte mean corpuscular hemoglobin concentration measurement ( mass/volume) 33 g/dL 32-36 Automated erythrocyte distribution width ratio 13.5 % 10.0-14.5 Automated blood platelet count (count/volume) 217 10*3/uL 130-400 Automated blood platelet mean volume measurement 10.7 [foz_us] 7.4-10.4 Automated blood neutrophils/100 leukocytes 73 % 42-75 Automated blood lymphocytes/100 leukocytes 19 % 12-44 Blood monocytes/100 leukocytes 7 % 0-12 Automated blood eosinophils/100 leukocytes 1 % 0-10 Automated blood basophils/100 leukocytes 0 % 0-10 Blood neutrophils automated count (number/volume) 6.9 10*3 1.8-7.8 Blood lymphocytes automated count (number/volume) 1.8 10*3 1.0-4.0 Blood monocytes automated count (number/volume) 0.6 10*3 0.0-1.0 Automated eosinophil count 0.1 10*3/uL 0.0-0.3 Automated blood basophil count (count/volume) 0.0 10*3/uL 0.0-0.1 Comprehensive metabolic panel - 03/06/17 20:50 Serum or plasma sodium measurement (moles/volume) 137 mmol/L 135-145 Serum or plasma potassium measurement (moles/volume) 3.8 mmol/L 3.6-5.0 Serum or plasma chloride measurement (moles/volume) 102 mmol/L 98-107 Carbon dioxide 22 mmol/L 21-32 Serum or plasma anion gap determination (moles/volume) 13 mmol/L 5-14 Serum or plasma urea nitrogen measurement (mass/volume) 9 mg/dL 7-18 Serum or plasma creatinine measurement (mass/volume) 1.31 mg/dL 0.60-1.30 Serum or plasma urea nitrogen/creatinine mass ratio 7 NRG Serum or plasma creatinine measurement with calculation of estimated glomerular filtration rate 42 NRG Serum or plasma glucose measurement (mass/volume) 122 mg/dL 70-105 Serum or plasma calcium measurement (mass/volume) 9.8 mg/dL 8.5-10.1 Serum or plasma total bilirubin measurement (mass/volume) 0.7 mg/dL 0.1-1.0 Serum or plasma alkaline phosphatase measurement (enzymatic activity/volume) 78 U/L 40-136 Serum or plasma aspartate aminotransferase measurement (enzymatic activity/ volume) 20 U/L 5-34 Serum or plasma alanine aminotransferase measurement (enzymatic activity/volume ) 22 U/L 0-55 Serum or plasma protein measurement (mass/volume) 8.2 g/dL 6.4-8.2 Serum or plasma albumin measurement (mass/volume) 4.6 g/dL 3.2-4.5 Serum or plasma amylase measurement (enzymatic activity/volume) - 03/06/17 20: 50 Serum or plasma amylase measurement (enzymatic activity/volume) 32 U /L 25-125 Lipase - 03/06/17 20:50 Lipase 17 U/L 8-78 Complete urinalysis with reflex to culture - 03/06/17 21:55 Urine color determination YELLOW NRG Urine clarity determination CLEAR NRG Urine pH measurement by test strip 5 5-9 Specific gravity of urine by test strip 1.015 1.016- 1.022 Urine protein assay by test strip, semi-quantitative 4+ NEGATIVE Urine glucose detection by automated test strip NEGATIVE NEGATIVE Erythrocytes detection in urine sediment by light microscopy 1+ NEGATIVE Urine ketones detection by automated test strip NEGATIVE NEGATIVE Urine nitrite detection by test strip POSITIVE NEGATIVE Urine total bilirubin detection by test strip NEGATIVE NEGATIVE Urine urobilinogen measurement by automated test strip (mass/volume) NORMAL NORMAL Urine leukocyte esterase detection by dipstick 1+ NEGATIVE Automated urine sediment erythrocyte count by microscopy (number/high power field) [HPF] NRG Automated urine sediment leukocyte count by microscopy (number/high power field ) [HPF] NRG Bacteria detection in urine sediment by light microscopy FEW NRG Crystals detection in urine sediment by light microscopy NONE NRG Casts detection in urine sediment by light microscopy NONE NRG Mucus detection in urine sediment by light microscopy NEGATIVE NRG Complete urinalysis with reflex to culture YES NRG Bacterial urine culture - 03/06/17 21:55 Bacterial urine culture [id number] NRG COLONY COUNT >100,000/ML NRG FTX;REPORTABLE SENSITIVITY REPORTED AT 1502, 11-2-17 NR URINE CULTURE RESULTS PLUS NR Bacterial susceptibility panel - 03/06/17 21:55 Gentamicin susceptibility test by minimum inhibitory concentration < = NRG Trimethoprim/sulfamethoxazole susceptibility test by minimum inhibitoryconcentration <= NRG Ampicillin susceptibility test by minimum inhibitory concentration 4 NRG Tobramycin susceptibility test by minimum inhibitory concentration < = NRG Cefazolin susceptibility test by minimum inhibitory concentration < = NRG Ceftriaxone susceptibility test by minimum inhibitory concentration <= NRG Ampicillin/sulbactam susceptibility test by minimum inhibitory concentration <= NRG Piperacillin/tazobactam susceptibility test by minimum inhibitory concentration <= NRG Ciprofloxacin susceptibility test by minimum inhibitory concentration <= NRG Meropenem susceptibility test by minimum inhibitory concentration < = NRG Nitrofurantoin susceptibility test by minimum inhibitory concentration <= NRG Aztreonam susceptibility test by minimum inhibitory concentration < = NRG Extended spectrum beta lactamase (ESBL) producing bacteria susceptibility test by minimum inhibitory concentration - NR Complete blood count (CBC) with automated white blood cell (WBC) differential - 04/25/17 08:31 Blood leukocytes automated count (number/volume) 5.4 10*3/uL 4.3-11.0 Blood erythrocytes automated count (number/volume) 3.91 10*6/uL 4.35-5.85 Venous blood hemoglobin measurement (mass/volume) 12.1 g/dL 11.5-16.0 Blood hematocrit (volume fraction) 37 % 35-52 Automated erythrocyte mean corpuscular volume 93 [foz_us] 80-99 Automated erythrocyte mean corpuscular hemoglobin (mass per erythrocyte) 31 pg 25-34 Automated erythrocyte mean corpuscular hemoglobin concentration measurement ( mass/volume) 33 g/dL 32-36 Automated erythrocyte distribution width ratio 13.8 % 10.0-14.5 Automated blood platelet count (count/volume) 176 10*3/uL 130-400 Automated blood platelet mean volume measurement 10.9 [foz_us] 7.4-10.4 Automated blood neutrophils/100 leukocytes 67 % 42-75 Automated blood lymphocytes/100 leukocytes 24 % 12-44 Blood monocytes/100 leukocytes 6 % 0-12 Automated blood eosinophils/100 leukocytes 3 % 0-10 Automated blood basophils/100 leukocytes 0 % 0-10 Blood neutrophils automated count (number/volume) 3.6 10*3 1.8-7.8 Blood lymphocytes automated count (number/volume) 1.3 10*3 1.0-4.0 Blood monocytes automated count (number/volume) 0.3 10*3 0.0-1.0 Automated eosinophil count 0.1 10*3/uL 0.0-0.3 Automated blood basophil count (count/volume) 0.0 10*3/uL 0.0-0.1 Comprehensive metabolic panel - 04/25/17 08:31 Serum or plasma sodium measurement (moles/volume) 140 mmol/L 135-145 Serum or plasma potassium measurement (moles/volume) 3.6 mmol/L 3.6-5.0 Serum or plasma chloride measurement (moles/volume) 110 mmol/L 98-107 Carbon dioxide 21 mmol/L 21-32 Serum or plasma anion gap determination (moles/volume) 9 mmol/L 5-14 Serum or plasma urea nitrogen measurement (mass/volume) 14 mg/dL 7-18 Serum or plasma creatinine measurement (mass/volume) 1.06 mg/dL 0.60-1.30 Serum or plasma urea nitrogen/creatinine mass ratio 13 NRG Serum or plasma creatinine measurement with calculation of estimated glomerular filtration rate 54 NRG Serum or plasma glucose measurement (mass/volume) 118 mg/dL 70-105 Serum or plasma calcium measurement (mass/volume) 9.3 mg/dL 8.5-10.1 Serum or plasma total bilirubin measurement (mass/volume) 0.4 mg/dL 0.1-1.0 Serum or plasma alkaline phosphatase measurement (enzymatic activity/volume) 85 U/L 40-136 Serum or plasma aspartate aminotransferase measurement (enzymatic activity/ volume) 26 U/L 5-34 Serum or plasma alanine aminotransferase measurement (enzymatic activity/volume ) 37 U/L 0-55 Serum or plasma protein measurement (mass/volume) 7.4 g/dL 6.4-8.2 Serum or plasma albumin measurement (mass/volume) 4.3 g/dL 3.2-4.5 Lipase - 04/25/17 08:31 Lipase 39 U/L 8-78 Complete urinalysis with reflex to culture - 04/25/17 08:45 Urine color determination YELLOW NRG Urine clarity determination CLEAR NRG Urine pH measurement by test strip 6 5-9 Specific gravity of urine by test strip 1.010 1.016- 1.022 Urine protein assay by test strip, semi-quantitative NEGATIVE NEGATIVE Urine glucose detection by automated test strip NEGATIVE NEGATIVE Erythrocytes detection in urine sediment by light microscopy NEGATIVE NEGATIVE Urine ketones detection by automated test strip NEGATIVE NEGATIVE Urine nitrite detection by test strip NEGATIVE NEGATIVE Urine total bilirubin detection by test strip NEGATIVE NEGATIVE Urine urobilinogen measurement by automated test strip (mass/volume) NORMAL NORMAL Urine leukocyte esterase detection by dipstick NEGATIVE NEGATIVE Automated urine sediment erythrocyte count by microscopy (number/high power field) NONE NRG Automated urine sediment leukocyte count by microscopy (number/high power field ) NONE NRG Bacteria detection in urine sediment by light microscopy TRACE NRG Squamous epithelial cells detection in urine sediment by light microscopy 0-2 NRG Crystals detection in urine sediment by light microscopy NONE NRG Casts detection in urine sediment by light microscopy NONE NRG Mucus detection in urine sediment by light microscopy NEGATIVE NRG Complete urinalysis with reflex to culture NO NRG C DIFFICILE AG + TOXIN A/B. - 04/25/17 08:45 RESULTS NEGATIVE FOR ANTIGEN AND TOXIN A/B NRG Stool bacteria identification by culture - 04/25/17 08:45 TSH - 09/14/17 15:52 TSH 1.61 mIU/L NRG Encounters ACCT No. Visit Date/Time Discharge Status Pt. Type Provider Facility Loc./Unit Complaint [id number] 08/29/2014 13:52:00 08/29/2014 23:59:59 CLS Outpatient PHUC AMIN APRN [place] [id number] 07/31/2014 10:41:00 07/31/2014 23:59:59 CLS Outpatient WHIT LOVELL DO [id number] 06/15/2014 08:48:00 06/15/2014 23:59:59 CLS Outpatient OSEAS FELIX MD [id number] 05/22/2014 16:17:00 05/22/2014 23:59:59 CLS Outpatient OSEAS FELIX MD [id number] 01/24/2014 12:23:00 01/24/2014 23:59:59 CLS Outpatient MORE LOPEZ APRN [id number] 01/14/2014 08:55:00 01/14/2014 23:59:59 CLS Outpatient WHIT LOVELL DO [id number] 10/30/2013 11:03:00 10/30/2013 23:59:59 CLS Outpatient CHELA ROLLER PNEUMATIC PAVAN Zendejas [id number] 10/08/2013 15:16:00 10/08/2013 23:59:59 CLS Outpatient ELOISA ROLLER PNEUMATICPHUC Lakhani [id number] 06/30/2013 16:43:00 06/30/2013 23:59:59 CLS Outpatient WHIT LOVELL DO [id number] 06/11/2013 15:18:00 06/11/2013 23:59:59 CLS Outpatient OSEAS FELIX MD [id number] 12/05/2012 13:32:00 12/05/2012 23:59:59 CLS Outpatient REBEL SOARES MD [id number] 08/07/2012 10:44:00 08/07/2012 23:59:59 CLS Outpatient VERA SHORE PA-C [id number] 08/06/2012 16:50:00 08/06/2012 23:59:59 CLS Outpatient [id number] 04/26/2012 15:04:00 04/26/2012 23:59:59 CLS Outpatient WHIT LOVELL DO [id number] 04/02/2012 11:58:00 04/02/2012 23:59:59 CLS Outpatient [id number] 04/02/2012 11:58:00 04/02/2012 23:59:59 CLS Outpatient WHIT LOVELL DO [id number] 08/30/2012 14:13:00 Document Registration [id number] 08/26/2012 00:00:00 Document Registration [id number] 03/30/2016 07:05:00 Document Registration [id number] 07/21/2016 07:06:00 Document Registration [id number] 12/07/2016 08:36:00 Document Registration [id number] 05/06/2016 08:35:00 Document Registration [id number] 01/18/2017 08:41:00 Document Registration [id number] 09/28/2017 14:40:00 09/28/2017 23:59:59 CLS Outpatient PHUC AMIN APRN [facility] [id number] 09/14/2017 15:00:00 Document Registration [id number] 09/10/2017 16:54:00 09/10/2017 23:59:59 CLS Preadmit MAKENZIE CHAPMAN MD [facility] RAD I71.4 AAA [id number] 09/05/2017 08:00:00 09/05/2017 23:59:59 CLS Preadmit MAKENZIE CHAPMAN MD [facility] CARD I71.4 AAA [id number] 08/28/2017 09:00:00 08/28/2017 23:59:59 CLS Preadmit MAKENZIE CHAPMAN MD [facility] RAD AAA [id number] 08/28/2017 07:51:00 08/28/2017 23:59:59 CLS Outpatient MAKENZIE CHAPMAN MD [facility] RAD I71.4 AAA [id number] 08/23/2017 11:21:00 08/23/2017 23:59:59 CLS Preadmit MAKENZIE CHAPMAN MD [facility] CARD I71.4 AAA [id number] 05/04/2017 09:47:00 05/04/2017 23:59:59 CLS Preadmit RIDDHI MURRAY [facility] RAD M54.12 CERVICAL RADICULOPATHY [id number] 04/25/2017 07:59:00 04/25/2017 11:15:00 DIS Emergency RADHA CORREIA, DIMAS Mora [facility] ER DIARRHEA [id number] 03/06/2017 20:33:00 03/06/2017 22:58:00 DIS Emergency ADARSH TORRES STANLEY K [facility] ER LOWER STOMACH/BACK PAIN [id number] 02/07/2017 17:57:00 02/07/2017 23:05:00 DIS Emergency SANDRA LAWSON MD [facility] ER CHEST/BACK PAIN [id number] 07/23/2016 11:20:00 07/23/2016 12:15:00 DIS Emergency МАРИЯ MIRZA ROLLER PNEUMATIC [facility] ER L ARM LUMP/REDNESS [id number] 05/26/2016 15:47:00 05/26/2016 23:59:59 CLS Outpatient NAVEEN FERRARO ROLLER PNEUMATIC [facility] RAD ACUTE RIGHT FLANK PAIN [id number] 04/24/2016 08:26:00 04/24/2016 23:59:59 CLS Outpatient MADL, PHUC L [facility] RAD AAA,RUQ PAIN [id number] 02/16/2016 16:41:00 02/16/2016 23:59:59 CLS Outpatient PAVAN YORK ROLLER PNEUMATIC [facility] QUICK [id number] 02/04/2016 10:50:00 02/04/2016 12:35:00 DIS Emergency МАРИЯ MIRZA ROLLER PNEUMATIC [facility] ER CHEST PAIN RADIATING THRU BACK [id number] 12/03/2015 11:33:00 12/03/2015 12:58:00 DIS Emergency BRITNEY NICHOLS MD [facility] ER BACK PAIN [id number] 11/22/2015 13:34:00 11/22/2015 23:59:59 CLS Outpatient MADL, PHUC L [employer] [facility] [facility] RAD ABNORMAL XRAY [id number] 11/17/2015 09:42:00 11/17/2015 23:59:59 CLS Outpatient MADL, PHUC L [employer] [facility] [employer] [facility] RAD PAIN OF RIGHT LOWER EXTREMITY [id number] 08/27/2015 16:37:00 08/27/2015 19:20:00 DIS Emergency МАРИЯ MIRZA APRN [facility] ER VOMITING,DIARRHEA [id number] 12/04/2014 21:30:00 12/04/2014 23:55:00 DIS Emergency VERA DYER MD [facility] ER L HAND PAIN/INJ [id number] 08/28/2014 16:35:00 08/28/2014 21:03:00 DIS Emergency ADARSH STANLEY K [facility] ER ABD PAIN [id number] 08/07/2014 10:31:00 08/07/2014 23:59:59 CLS Outpatient VERA SCOTT [facility] RAD SOLID FOOD DYPHAGIA NECK PAIN [id number] 05/24/2014 22:11:00 05/26/2014 13:38:00 DIS Inpatient MARGAUX ROSAS MD [facility] 4TH HYPONATREMIA;URINARY TRACT INFECTION;DIARRHEA [id number] 03/26/2014 12:14:00 03/26/2014 14:25:00 DIS Emergency LETHA COPPOLA [facility] ER LEFT KNEE PAIN [id number] 02/19/2014 13:18:00 02/19/2014 16:43:00 DIS Emergency BRITNEY NICHOLS MD [facility] ER CHEST PAIN [id number] 01/26/2014 16:19:00 01/26/2014 17:35:00 DIS Emergency МАРИЯ MIRZA APRN [facility] ER WOUND CARE [id number] 01/25/2014 20:34:00 01/25/2014 22:28:00 DIS Emergency LETHA COPPOLA [facility] ER CAT BITE [id number] 07/06/2013 16:17:00 07/06/2013 19:01:00 DIS Emergency BRITNEY NICHOLS MD [facility] ER ABD PAIN [id number] 11/10/2012 22:22:00 11/11/2012 14:30:00 DIS Inpatient RALPH CORREIA, MARGAUX Feliz [facility] 4TH ACUTE RENAL FAILURE, ACUTE ABD PAIN, N/V/D [id number] 05/25/2014 11:51:00 Document Registration [id number] 01/22/2012 19:53:00 Document Registration [id number] 09/19/2011 18:45:00 Document Registration [id number] 09/07/2011 22:14:00 Document Registration [id number] 07/14/2011 08:59:00 Document Registration [id number] 03/15/2011 18:46:00 Document Registration [id number] 03/08/2011 14:42:00 Document Registration [id number] 11/22/2010 05:25:00 Document Registration [id number] 08/29/2010 14:17:00 Document Registration [id number] 05/15/2010 09:10:00 Document Registration [id number] 01/17/2010 15:47:00 Document Registration
[2018-02-08 02:46] LABS: ALANINE AMINOTRANSFERASE 25 U/L (0-55); ALBUMIN 4.5 GM/DL (3.2-4.5); ALKALINE PHOSPHATASE 73 U/L (40-136); BILIRUBIN,TOTAL 0.4 MG/DL (0.1-1.0); BUN/CREATININE RATIO 12; CALCIUM 9.6 MG/DL (8.5-10.1); CARBON DIOXIDE 22 MMOL/L (21-32); CHLORIDE 106 MMOL/L (98-107); CREATININE SERUM 1.37 MG/DL (0.60-1.30); GFR ESTIMATED 40; GLUCOSE 106 MG/DL (70-105); MAGNESIUM 2.2 MG/DL (1.8-2.4); POTASSIUM 4.2 MMOL/L (3.6-5.0); SODIUM 138 MMOL/L (135-145); TOTAL PROTEIN 7.5 GM/DL (6.4-8.2)
--- NOTE | 2018-02-08 03:35 | ED Chest Pain ---
General Chief Complaint: Chest Pain Stated Complaint: CP,LEFT & RT ARM PAIN Nursing Triage Note: chest pain, bilateral arm numbness Nursing Sepsis Screen: No Definite Risk Source: patient, old records Exam Limitations: no limitations History of Present Illness Date Seen by Provider: Feb 08, 2018 Time Seen by Provider: 02:08 Initial Comments This 57-year-old woman presents to the emergency room complaining of sharp left- sided chest pain that starts around the lower left breast area and radiates to her neck, shoulders, and into the arms. She complains of tingling in the bilateral upper extremities. She has had pain much of the day but it intensified later this evening. She rates the pain at 5/10 at present. It was as high as 9/10 at its worst. She denies any associated symptoms other than some hot flashes. She does have a history of cardiovascular disease including mild coronary artery disease identified by cardiac catheterization in 2009. She also has a history of abdominal aortic aneurysm with grafting repair and renal artery stenosis treated with a renal artery stent. Patient is noted to have marked hypertension on assessment. Pain does not have any pleuritic features as it does not change with deep breathing. Dr. Smith is her clinical psychologist private practice and [facility] is her primary care provider Allergies and Home Medications Allergies Coded Allergies: NSAIDS (Non-Steroidal Anti-Inflamma (Verified Allergy, Unknown, 11/11/12) Sulfa (Sulfonamide Antibiotics) (Verified Allergy, Unknown, 11/11/12) acetaminophen (Unverified Allergy, Unknown, 03/26/14) niacin (Verified Allergy, Unknown, 09/19/11) Uncoded Allergies: IV CONTRAST (Allergy, Unknown, 11/11/12) Home Medications Amlodipine Besylate 10 Mg Tablet, 10 MG PO HS, (Reported) Fluticasone Propionate 16 Gm Naspr, 2 SPRAYS NA BID PRN for ALLERGIES, (Reported ) Gabapentin 100 Mg Cap, 100 MG PO TID, (Reported) Ondansetron 4 Mg Tab.rapdis, 4 MG PO Q6H PRN for NAUSEA/VOMITING Prescribed by: DIMAS GARCIA on 04/25/17 1110 Simvastatin 10 Mg Tab, 10 MG PO HS, (Reported) Tramadol HCl 50 Mg Tablet, 50 MG PO QID Prescribed by: BRITNEY NICHOLS on 12/03/15 1245 Patient Home Medication List Home Medication List Reviewed: Yes Review of Systems Review of Systems Constitutional: no symptoms reported EENTM: No Symptoms Reported Respiratory: No Symptoms Reported Cardiovascular: See HPI Gastrointestinal: No Symptoms Reported Genitourinary: No Symptoms Reported Musculoskeletal: no symptoms reported Skin: no symptoms reported Psychiatric/Neurological: No Symptoms Reported Endocrine: No Symptoms Reported Past Hifmnkz-Gyklrl-Vbtibx Hx Patient Social History Alcohol Use: Denies Use Recreational Drug Use: No Smoking Status: Former Smoker Former Smoker, Quit: May 07, 2009 Recent Foreign Travel: No Contact w/Someone Who Travel: No Recent Infectious Disease Expo: No Recent Hopitalizations: No Immunizations Up To Date Tetanus Booster (TDap): Less than 5yrs Date of Pneumonia Vaccine: Jan 05, 2011 Date of Influenza Vaccine: Feb 04, 2017 Seasonal Allergies Seasonal Allergies: No Past Medical History Surgeries: Yes Adenoidectomy, Cardiac, Ear Surgery, Tonsillectomy, Vascular Surgery Respiratory: Yes Asthma, COPD Cardiac: Yes Aneurysm, Coronary Artery Disease, High Cholesterol, Hypertension, Peripheral Vascular Neurological: Yes Neuropathy : No 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 No Pertinent Family Hx Physical Exam Vital Signs Vital Signs - First Documented 02/08/18 02:10 Temp 97.6 Pulse 74 Resp 18 B/P (MAP) 236/112 (153) Pulse Ox 95 O2 Delivery Room Air Capillary Refill : Less Than 3 Seconds Height, Weight, BMI Height: 5'3.00" Weight: 220lbs. 0.0oz. 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 Norm as Tested Skin: Normal Color, Warm/Dry Progress/Results/Core Measures Results/Orders Lab Results Laboratory Tests Test 02/08/18 02:20 Range/Units White Blood Count 6.6 4.3-11.0 10^3/uL Red Blood Count 3.68 L 4.35-5.85 10^6/uL Hemoglobin 11.6 11.5-16.0 G/DL Hematocrit 35 35-52 % Mean Corpuscular Volume 95 80-99 FL Mean Corpuscular Hemoglobin 32 25-34 PG Mean Corpuscular Hemoglobin Concent 33 32-36 G/DL Red Cell Distribution Width 14.1 10.0-14.5 % Platelet Count 179 130-400 10^3/uL Mean Platelet Volume 10.9 H 7.4-10.4 FL Neutrophils (%) (Auto) 58 42-75 % Lymphocytes (%) (Auto) 31 12-44 % Monocytes (%) (Auto) 8 0-12 % Eosinophils (%) (Auto) 3 0-10 % Basophils (%) (Auto) 0 0-10 % Neutrophils # (Auto) 3.8 1.8-7.8 X 10^3 Lymphocytes # (Auto) 2.1 1.0-4.0 X 10^3 Monocytes # (Auto) 0.5 0.0-1.0 X 10^3 Eosinophils # (Auto) 0.2 0.0-0.3 10^3/uL Basophils # (Auto) 0.0 0.0-0.1 10^3/uL Prothrombin Time 12.9 12.2-14.7 SEC INR Comment 1.0 0.8-1.4 Activated Partial Thromboplast Time 29 24-35 SEC Sodium Level 138 135-145 MMOL/L Potassium Level 4.2 3.6-5.0 MMOL/L Chloride Level 106 98-107 MMOL/L Carbon Dioxide Level 22 21-32 MMOL/L Anion Gap 10 5-14 MMOL/L Blood Urea Nitrogen 17 7-18 MG/DL Creatinine 1.37 H 0.60-1.30 MG/DL Estimat Glomerular Filtration Rate 40 BUN/Creatinine Ratio 12 Glucose Level 106 H 70-105 MG/DL Calcium Level 9.6 8.5-10.1 MG/DL Corrected Calcium 9.2 8.5-10.1 MG/DL Magnesium Level 2.2 1.8-2.4 MG/DL Total Bilirubin 0.4 0.1-1.0 MG/DL Aspartate Amino Transf (AST/SGOT) 18 5-34 U/L Alanine Aminotransferase (ALT/SGPT) 25 0-55 U/L Alkaline Phosphatase 73 40-136 U/L Myoglobin 75.0 10.0-92.0 NG/ML Troponin I < 0.30 <0.30 NG/ML C-Reactive Protein High Sensitivity 1.29 H 0.00-0.50 MG/DL Total Protein 7.5 6.4-8.2 GM/DL Albumin 4.5 3.2-4.5 GM/DL My Orders Orders - VERA DYER MD Nitroglycerin 0.4 Mg Btl 25's (Nitrostat (02/08/18 02:11) Aspirin Chewable Tablet (Baby Aspirin Ch (02/08/18 02:11) Cbc With Automated Diff (02/08/18 02:15) Magnesium (02/08/18 02:15) Chest 1 View, Ap/Pa Only (02/08/18 02:15) Ekg Tracing (02/08/18 02:15) Cardiac Profile 1 (02/08/18 02:15) Comprehensive Metabolic Panel (02/08/18 02:15) Myoglobin Serum (02/08/18 02:15) Protime With Inr (02/08/18 02:15) Partial Thromboplastin Time (02/08/18 02:15) O2 (02/08/18 02:15) Monitor-Rhythm Ecg Trace Only (02/08/18 02:15) Lipid Panel (02/09/18 06:00) Aspirin Chewable Tablet (Baby Aspirin Ch (02/08/18 02:15) Nitroglycerin 0.4 Mg Btl 25's (Nitrostat (02/08/18 02:15) Saline Lock/Iv-Start (02/08/18 02:15) Hs C Reactive Protein (02/08/18 02:31) Medications Given in ED Current Medications Medications Dose Ordered Sig/Aramis Route Start Time Stop Time Status Last Admin Dose Admin Aspirin 324 mg ONCE ONCE PO 02/08/18 02:15 02/08/18 02:17 DC 10/5/18 02:18 324 MG Nitroglycerin 0.4 mg UD PRN SL 02/08/18 02:15 02/08/18 02:25 0.4 MG Vital Signs/I&O 02/08/18 02/08/18 02/08/18 02:10 02:10 02:10 Temp 97.6 Pulse 74 Resp 18 B/P (MAP) 236/112 (153) Pulse Ox 95 95 O2 Delivery Room Air Room Air Room Air Blood Pressure Mean: 153 Progress Progress Note : Progress Note Chest pain orders were pursued. Patient was given aspirin and nitroglycerin. Pain completely resolved with nitroglycerin. Case was discussed with Dr. Calderon who agrees with admission. A liter of IV fluid will be administered due to a mild elevation in creatinine. Initial ECG Impression Date: Feb 08, 2018 Initial ECG Impression Time: 02:10 Initial ECG Rate: 78 Initial ECG Rhythm: Normal Sinus Initial ECG Intervals: Normal Initial ECG Impression: Normal Comment Normal sinus rhythm with no ST elevation or depression. No abnormal intervals or axis deviation. Diagnostic Imaging Diagonstic Imaging: Xray Plain Films/CT/US/NM/MRI: chest Comments Chest x-ray viewed by me. Report not yet available. Imaging is some what limited in value due to body habitus. No acute abnormalities were appreciated. Departure Communication (Admissions) Time/Spoke to Admitting Phy: 03:25 Dr. Valladares Time/Spoke to Consulting Phy: 03:27 Dr. Calderon Impression Primary Impression: Chest pain Qualified Codes: R07.9 - Chest pain, unspecified Additional Impression: Hypertensive urgency Disposition: ADMITTED INPATIENT Condition: Improved Admissions Decision to Admit Reason: Admit from ER (General) Decision to Admit/Date: Feb 08, 2018 Time/Decision to Admit Time: 03:20 Departure-Patient Inst. Referrals: WHIT LOVELL DO (PCP/Family) Primary Care Physician VERA DYER MD Feb 08, 2018 03:35
[2018-02-08] MEDS ORDERED: NS 1000 ML IV BAG IV ONE (04:15)
--- OUTSIDE RECORDS SUMMARY | 2018-02-08 04:19 | XMS REPORT | Continuity of Care Document ---
Author Author [facility] Address Unknown Phone Unavailable Allergies Active Description Code Type Severity Reaction Onset Reported/Identified Relationship to Patient Clinical Status Yes niacin Drug Allergy N/A N/A 12/19/2010 Yes niacin Drug Allergy 12/19/2010 Yes Tekturna 150 mg tablet Drug Allergy N/A N/A 08/10/2011 Yes Tekturna 150 mg tablet Drug Allergy 08/10/2011 Yes niacin [id number] Drug Allergy Unknown N/A 09/19/2011 Yes IV CONTRAST IV CONTRAST Unknown N/A 11/11/2012 Yes NSAIDS (Non-Steroidal Anti-Inflamma [id number] Drug Allergy Unknown N/A 12/2012 Yes Sulfa (Sulfonamide Antibiotics) [id number] Drug Allergy Unknown N/A 2012 Yes Bactrim Drug Allergy N/A N/A 11/15/2012 Yes NSAIDS (Non-Steroidal Anti-Inflammatory Drug) Drug Allergy N/A N/A 2012 Yes Iodinated Contrast Media - IV Dye Drug Allergy N/A N/A 10/30/2013 Yes acetaminophen [id number] Drug Allergy Unknown N/A 03/26/2014 Yes Macrobid [...] SHEA LOVELL DOA K 276.8 Hypokalemia 04/07/2008 SHAE LOVELL DOA K 401.1 ESSENTIAL HYPERTENSION BENIGN 04/07/2008 MADL TAIL BOARD MAN, PHUC L 276.8 Hypokalemia 04/07/2008 MADL TAIL BOARD MAN, PHUC L 401.1 ESSENTIAL HYPERTENSION BENIGN 04/07/2008 CHELA TAIL BOARD MAN, PAVAN R 276.8 Hypokalemia 04/07/2008 CHELA TAIL BOARD MAN, PAVAN R 401.1 ESSENTIAL HYPERTENSION BENIGN 04/07/2008 LOVELL DO, WHIT K 276.8 Hypokalemia 04/07/2008 LOVELL DO, WHIT K 401.1 ESSENTIAL HYPERTENSION BENIGN 04/07/2008 JOHN TAIL BOARD MAN, MORE S 276.8 Hypokalemia 04/07/2008 JOHNMARIELOS DIEGO, MORE S 401.1 ESSENTIAL HYPERTENSION BENIGN 04/07/2008 OSEAS FELIX MD N 276.8 Hypokalemia 04/07/2008 OSEAS FELIX MD N 401.1 ESSENTIAL HYPERTENSION BENIGN 04/07/2008 OSEAS FELIX MD N 276.8 Hypokalemia 04/07/2008 OSEAS FELIX MD N 401.1 ESSENTIAL HYPERTENSION BENIGN 04/07/2008 LOVELL DO, WHIT K 276.8 Hypokalemia 04/07/2008 LOVELL DO, WHIT K 401.1 ESSENTIAL HYPERTENSION BENIGN 04/07/2008 SHAWNALluvia TAIL BOARD MAN, PHUC L 276.8 Hypokalemia 04/07/2008 ELOISA TAIL BOARD MAN, PHUC L 401.1 ESSENTIAL HYPERTENSION BENIGN 04/28/2008 LOVELL DO, WHIT K 782.1 Rash 04/28/2008 782.1 Rash 04/28/2008 LOVELL DO WHIT K 782.1 Rash 04/28/2008 782.1 Rash 04/28/2008 VERA SHORE PA-C 782.1 Rash 04/28/2008 782.1 Rash 04/28/2008 782.1 Rash 04/28/2008 REBEL SOARES MD 782.1 Rash 04/28/2008 OSEAS FELIX MD N 782.1 Rash 04/28/2008 LOVELL DO WIHT K 782.1 Rash 04/28/2008 ELOISA DIEGO, PHUC L 782.1 Rash 04/28/2008 CHELA DIEGO PAVAN R 782.1 Rash 04/28/2008 WHIT LOVELL DO K 782.1 Rash 04/28/2008 JOHN DIEGO, MORE S 782.1 Rash 04/28/2008 OSEAS FELIX MD N 782.1 Rash 04/28/2008 OSEAS FELIX MD 782.1 Rash 04/28/2008 NAS TORRESWHIT K 782.1 Rash 04/28/2008 MADL TAIL BOARD MAN, PHUC L 782.1 Rash 09/18/2008 SHEA LOVELL [...] APRNA L 401.9 Essential Hypertension 09/18/2008 MADL TAIL BOARD MAN, PHUC L 461.2 Sinusitis Acute Ethmoidal 09/18/2008 ROBIN YORK APRNINA R 401.9 Essential Hypertension 09/18/2008 CHELA TAIL BOARD MAN, PAVAN R 461.2 Sinusitis Acute Ethmoidal 09/18/2008 LOVELL DO WHIT K 401.9 Essential Hypertension 09/18/2008 LOVELL DO, WHIT K 461.2 Sinusitis Acute Ethmoidal 09/18/2008 JOHN TAIL BOARD MAN, MORE S 401.9 Essential Hypertension 09/18/2008 JOHNMARIELOS [...] L 380.10 Otitis Externa Unspecified 11/11/2008 CHELA DIEGO, PAVAN R 380.10 Otitis Externa Unspecified 11/11/2008 [...] Tract Infection Site Not Specified 12/11/2008 MADLluvia TAIL BOARD MANWENDY LakhaniA L 599.0 Urinary Tract Infection Site [...] DO, WHIT K 782.3 Edema 09/20/2009 MADL TAIL BOARD MAN, PHUC L 782.3 Edema 09/20/2009 CHELA TAIL BOARD MAN, PAVAN R 782.3 Edema 09/20/2009 LOVELL DO, WHIT K 782.3 Edema 09/20/2009 JOHN TAIL BOARD MAN, MORE S 782.3 Edema 09/20/2009 OSEAS FELIX MD 782.3 Edema 09/20/2009 OSEAS FELIX MD 782.3 Edema 09/20/2009 LOVELL DO, WHIT K 782.3 Edema 09/20/2009 MADL TAIL BOARD MAN, PHUC L 782.3 Edema 12/29/2009 LOVELL DO, [...] DO, WHIT K 786.2 Cough 12/29/2009 MADL TAIL BOARD MAN, PHUC L 486 Pneumonia Unspecified 12/29/2009 MADL TAIL BOARD MAN, PHUC L 786.2 Cough 12/29/2009 CHELA TAIL BOARD MAN, PAVAN R 486 Pneumonia Unspecified 12/29/2009 CHELA TAIL BOARD MAN, PAVAN R 786.2 Cough 12/29/2009 NAS TORRES, WHIT K 486 Pneumonia Unspecified 12/29/2009 NAS TORRES, WHIT K 786.2 Cough 12/29/2009 JOHN TAIL BOARD MAN, MORE S 486 Pneumonia Unspecified 12/29/2009 JOHN TAIL BOARD MAN, MORE S 786.2 Cough 12/29/2009 ELVIRA CORREIA, OSEAS N 486 Pneumonia Unspecified 12/29/2009 ELVIRA CORREIA, OSEAS N 786.2 Cough 12/29/2009 ELVIRA CORREIA, OSEAS N 486 Pneumonia Unspecified 12/29/2009 ELVIRA CORREIA, OSEAS N 786.2 Cough 12/29/2009 NAS TORRES, WHIT K 486 Pneumonia Unspecified 12/29/2009 LOVELL , WHIT K 786.2 Cough 12/29/2009 MADL TAIL BOARD MAN, PHUC L 486 Pneumonia Unspecified 12/29/2009 MADL TAIL BOARD MAN, PHUC L 786.2 Cough 01/18/2010 Ot 272.4 [...] DO K V04.81 Flu Shot 03/16/2010 MADL TAIL BOARD MAN, PHUC L 466.0 Bronchitis, Acute 03/16/2010 MADL TAIL BOARD MAN, PHUC L V03.82 Pcv7 Pcv13 Pcv23, Streptococcus Pneumoniae [pneumococcus] 03/16/2010 MADL TAIL BOARD MAN, PHUC L V04.81 Flu Shot 03/16/2010 CHELA TAIL BOARD MAN, PAVAN R 466.0 Bronchitis, Acute 03/16/2010 CHELA TAIL BOARD MAN, PAVAN R V03.82 Pcv7 Pcv13 Pcv23, Streptococcus Pneumoniae [pneumococcus] 03/16/2010 CHELA TAIL BOARD MAN, PAVAN R V04.81 Flu Shot 03/16/2010 NAS TORRESSHEAA K 466.0 Bronchitis, Acute 03/16/2010 NAS TORRES WHIT K V03.82 Pcv7 Pcv13 Pcv23, Streptococcus Pneumoniae [pneumococcus] 03/16/2010 LOVELL DO WHIT K V04.81 Flu Shot 03/16/2010 JOHN TAIL BOARD MAN MORE S 466.0 Bronchitis, Acute 03/16/2010 JOHN TAIL BOARD MAN, MORE S V03.82 Pcv7 Pcv13 Pcv23, Streptococcus [...] DOA K V04.81 Flu Shot 03/16/2010 MADL TAIL BOARD MAN, PHUC L 466.0 Bronchitis, Acute 03/16/2010 MADL TAIL BOARD MAN, PHUC L V03.82 Pcv7 Pcv13 Pcv23, Streptococcus Pneumoniae [pneumococcus] 03/16/2010 MADL TAIL BOARD MAN, PHUC L V04.81 Flu Shot 05/15/2010 Ot [...] HYPERTENSION 03/17/2011 Ot 414.01 CORONARY ATHEROSCLEROSIS OF [place] CORON 03/17/2011 Ot 440.1 RENAL ARTERY ATHEROSCLER [...] TORRES WHIT K 414.00 CAD 04/04/2011 MADL TAIL BOARD MAN, PHUC L 401.0 HYPERTENSION MALIGNANT ESSENTIAL 04/04/2011 MADL TAIL BOARD MAN, PHUC L 414.00 CAD 04/04/2011 CHELA TAIL BOARD MAN PAVAN R 401.0 HYPERTENSION MALIGNANT ESSENTIAL 04/04/2011 CHELA TAIL BOARD MAN, PAVAN R 414.00 CAD 04/04/2011 LOVELL DO WHIT K 401.0 HYPERTENSION MALIGNANT ESSENTIAL 04/04/2011 LOVELL DO WHIT K 414.00 CAD 04/04/2011 JOHN DIEGO MORE S 401.0 HYPERTENSION MALIGNANT ESSENTIAL 04/04/2011 JOHN TAIL BOARD MAN, MORE S 414.00 CAD 04/04/2011 OSEAS FELIX MD N 401.0 HYPERTENSION MALIGNANT ESSENTIAL 04/04/2011 OSEAS FELIX MD N 414.00 CAD 04/04/2011 OSEAS FELIX MD N 401.0 HYPERTENSION MALIGNANT ESSENTIAL 04/04/2011 OSEAS FELIX MD N 414.00 CAD 04/04/2011 WHIT LOVELL DO K 401.0 HYPERTENSION MALIGNANT ESSENTIAL 04/04/2011 WHIT LOVELL DO K 414.00 CAD 04/04/2011 MADL TAIL BOARD MAN, PHUC L 401.0 HYPERTENSION MALIGNANT ESSENTIAL 04/04/2011 MADL TAIL BOARD MAN, PHUC L 414.00 CAD 06/01/2011 WHIT LOVELL [...] The Teeth And Supporting Structures 06/01/2011 MADL TAIL BOARD MANWENDYA L 465.9 Acute Upper Respiratory Infections Of Unspecified Site 06/01/2011 MADL TAIL BOARD MANEWNDYA L 525.9 Unspecified Disorder Of The Teeth And Supporting Structures 06/01/2011 CHELA TAIL BOARD MAN, PAVAN R 465.9 Acute Upper Respiratory Infections Of Unspecified Site 06/01/2011 CHELA TAIL BOARD MAN, PAVAN R 525.9 Unspecified Disorder Of The [...] The Teeth And Supporting Structures 06/01/2011 ELOISA TAIL BOARD MANPHUC Lakhani L 465.9 Acute Upper Respiratory Infections [...] DO K 079.99 Viral Syndrome 06/30/2011 ELOISA TAIL BOARD MANPHUC Lakhani L 079.99 Viral Syndrome 06/30/2011 PAVAN [...] NOS 09/21/2011 Ot 414.01 CORONARY ATHEROSCLEROSIS OF [place] CORON 09/21/2011 Ot 440.1 RENAL ARTERY ATHEROSCLER [...] WHIT K 790.29 Abnormal Glucose 10/26/2011 MADL TAIL BOARD MAN, PHUC L 785.0 Tachycardia Unspecified 10/26/2011 MADL TAIL BOARD MAN, PHUC L 790.29 Abnormal Glucose 10/26/2011 CHELA TAIL BOARD MAN, PAVAN R 785.0 Tachycardia Unspecified 10/26/2011 CHELA TAIL BOARD MAN, PAVAN R 790.29 Abnormal Glucose 10/26/2011 NAS DO, WHIT K 785.0 Tachycardia Unspecified 10/26/2011 LOVELL DO, WHIT K 790.29 Abnormal Glucose 10/26/2011 JOHN TAIL BOARD MAN, MORE S 785.0 Tachycardia Unspecified 10/26/2011 JOHN TAIL BOARD MAN, MORE S 790.29 Abnormal Glucose 10/26/2011 OSEAS FELIX MD N 785.0 Tachycardia Unspecified 10/26/2011 OSEAS FELIX MD N 790.29 Abnormal Glucose 10/26/2011 OSEAS FELIX MD N 785.0 Tachycardia Unspecified 10/26/2011 OSEAS FELIX MD N 790.29 Abnormal Glucose 10/26/2011 LOVELL DO, WHIT K 785.0 Tachycardia Unspecified 10/26/2011 LOVELL DO, WHIT K 790.29 Abnormal Glucose 10/26/2011 MADL TAIL BOARD MAN, PHUC L 785.0 Tachycardia Unspecified 10/26/2011 MADL TAIL BOARD MAN, PHUC L 790.29 Abnormal Glucose 11/02/2011 NAS [...] Ot 789.00 ABDOMINAL PAIN, UNSPECIFIED SITE 04/02/2012 NAS TORRESWHIT K 462 PHARYNGITIS ACUTE 04/02/2012 LOVELL [...] K 465.9 Upper Respiratory Infection 04/02/2012 MADL TAIL BOARD MAN, PHUC L 462 Pharyngitis Acute 04/02/2012 SHAWNAL TAIL BOARD MAN, PHUC L 465.9 Upper Respiratory Infection 04/02/2012 CHELA TAIL BOARD MAN, PAVAN R 462 Pharyngitis Acute 04/02/2012 CHELA TAIL BOARD MAN, PAVAN R 465.9 Upper Respiratory Infection 04/02/2012 [...] PHUC L 462 Pharyngitis Acute 04/02/2012 ELOISA TAIL BOARD MAN, PHUC L 465.9 Upper Respiratory Infection 08/06/2012 [...] 214.8 LIPOMA OF OTHER SPECIFIED SITES 08/30/2012 HWIT LOVELL DO 214.8 LIPOMA OF OTHER SPECIFIED [...] DO 521.09 OTHER DENTAL CARIES 10/08/2013 PHUC AMNI APRN 521.09 OTHER DENTAL CARIES 10/30/2013 PAVAN [...] 443.9 PERIPHERAL VASCULAR DISEASE UNSPECIFIED 10/30/2013 MADL TAIL BOARD MAN, PHUC L 443.9 PERIPHERAL VASCULAR DISEASE UNSPECIFIED [...] 790.6 LIVER FUNCTION TEST, ABNORMAL 01/15/2014 MADL TAIL BOARD MAN, PHUC L 272.1 HYPERTRIGLYCERIDEMIA 01/15/2014 MADL TAIL BOARD MAN, PHUC L 285.21 ANEMIA OF CHRONIC KIDNEY DISEASE 01/15/2014 MADL TAIL BOARD MAN, PHUC L 790.6 LIVER FUNCTION TEST, ABNORMAL [...] LATE EFF ACCIDENT NEC 01/26/2014 МАРИЯ MIRZA TAIL BOARD MAN Ot 682.7 CELLULITIS OF FOOT 01/26/2014 МАРИЯ MIRZA APRN Ot 906.1 LATE EFF OPEN WND EXTREM 01/26/2014 МАРИЯ MIRZA TAIL BOARD MAN Ot E929.8 LATE EFF ACCIDENT NEC 02/19/2014 [...] TRACT INFECTION SITE NOT SPECIFIED 06/02/2014 MADL TAIL BOARD MAN, PHUC L 276.1 HYPOSMOLALITY AND/OR HYPONATREMIA 06/02/2014 MADL TAIL BOARD MAN, PHUC L 276.51 DEHYDRATION 06/02/2014 MADL TAIL BOARD MAN, PHUC L 599.0 URINARY TRACT INFECTION SITE NOT SPECIFIED 07/31/2014 LOVELL DO, WHIT K 564.00 CONSTIPATION 07/31/2014 LOVELL DO, WHIT K 723.1 CERVICALGIA 07/31/2014 LOVELL , WHIT K 787.20 DYSPHAGIA UNSPECIFIED 07/31/2014 MADL TAIL BOARD MAN, PHUC L 564.00 CONSTIPATION 07/31/2014 MADL TAIL BOARD MAN, PHUC L 723.1 CERVICALGIA 07/31/2014 MADL TAIL BOARD MAN, PHUC L 787.20 DYSPHAGIA UNSPECIFIED 08/07/2014 Ot [...] NONINFECTIVE GASTROENTERITIS AND COLITIS 08/30/2015 МАРИЯ MIRZA TAIL BOARD MAN Ot K52.9 NONINFECTIVE GASTROENTERITIS AND COLITIS 11/18/2015 MADPHUC Teixeira MOTOR VEHICLE SALESPERSON Ot M79.604 PAIN IN RIGHT LEG 11/18/2015 MADPHUC Teixeira MOTOR VEHICLE SALESPERSON Ot M79.89 OTHER SPECIFIED SOFT TISSUE DISORDERS 11/18/2015 MADPHUC Teixeira MOTOR VEHICLE SALESPERSON Ot M79.604 PAIN IN RIGHT LEG 11/18/2015 MADPHUC Teixeira MOTOR VEHICLE SALESPERSON Ot M79.89 OTHER SPECIFIED SOFT TISSUE DISORDERS 11/23/2015 MADL, PHUC L MOTOR VEHICLE SALESPERSON Ot R07.89 OTHER CHEST PAIN 11/23/2015 MADL, PHUC L MOTOR VEHICLE SALESPERSON Ot R93.8 ABNORMAL FINDINGS ON DIAGNOSTIC IMAGING 11/23/2015 MADL, PHUC L MOTOR VEHICLE SALESPERSON Ot R07.89 OTHER CHEST PAIN 11/23/2015 MADL, PHUC L MOTOR VEHICLE SALESPERSON Ot R93.8 ABNORMAL FINDINGS ON DIAGNOSTIC IMAGING 12/03/2015 BRITNEY NICHOLS MD Ot M25.512 PAIN IN LEFT SHOULDER 12/03/2015 BRITNEY NICHOLS MD Ot M54.12 RADICULOPATHY, CERVICAL REGION 12/03/2015 Ot 789.00 ABDOMINAL PAIN, UNSPECIFIED SITE 12/03/2015 VERA SCOTT Ot 723.1 CERVICALGIA 12/03/2015 VERA SCOTT Ot 787.20 DYSPHAGIA, UNSPECIFIED 12/03/2015 MADL, PHUC L MOTOR VEHICLE SALESPERSON Ot M79.604 PAIN IN RIGHT LEG 12/03/2015 MADL, PHUC L MOTOR VEHICLE SALESPERSON Ot M79.89 OTHER SPECIFIED SOFT TISSUE DISORDERS 12/03/2015 MADL, PHUC L MOTOR VEHICLE SALESPERSON Ot R07.89 OTHER CHEST PAIN 12/03/2015 MADL, PHUC L MOTOR VEHICLE SALESPERSON Ot R93.8 ABNORMAL FINDINGS ON DIAGNOSTIC IMAGING 12/06/2015 BRITNEY NICHOLS MD Ot M25.512 PAIN IN LEFT SHOULDER 12/06/2015 BRITNEY NICHOLS MD Ot M54.12 RADICULOPATHY, CERVICAL REGION 02/04/2016 Ot 789.00 ABDOMINAL PAIN, UNSPECIFIED SITE 02/04/2016 VERA SCOTT Ot 723.1 CERVICALGIA 02/04/2016 VERA SCOTT Ot 787.20 DYSPHAGIA, UNSPECIFIED 02/04/2016 MADL, PHUC L MOTOR VEHICLE SALESPERSON Ot M79.604 PAIN IN RIGHT LEG 02/04/2016 MADL, PHUC L MOTOR VEHICLE SALESPERSON Ot M79.89 OTHER SPECIFIED SOFT TISSUE DISORDERS 02/04/2016 MADL, PHUC L MOTOR VEHICLE SALESPERSON Ot R07.89 OTHER CHEST PAIN 02/04/2016 MADL, PHUC L MOTOR VEHICLE SALESPERSON Ot R93.8 ABNORMAL FINDINGS ON DIAGNOSTIC IMAGING 02/04/2016 MIRZA, PETER J TAIL BOARD MAN Ot E11.9 TYPE 2 DIABETES MELLITUS WITHOUT COMPLIC 02/04/2016 МАРИЯ MIRZA TAIL BOARD MAN Ot I10 ESSENTIAL (PRIMARY) HYPERTENSION 02/04/2016 МАРИЯ MIRZA TAIL BOARD MAN Ot J44.9 CHRONIC OBSTRUCTIVE PULMONARY DISEASE, U 02/04/2016 МАРИЯ MIRZA TAIL BOARD MAN Ot M54.6 PAIN IN THORACIC SPINE 02/04/2016 МАРИЯ MIRZA TAIL BOARD MAN Ot Z79.899 OTHER RETIREMENT (CURRENT) DRUG THERAPY 02/04/2016 МАРИЯ MIRZA TAIL BOARD MAN Ot Z90.5 ACQUIRED ABSENCE OF KIDNEY 02/07/2016 МАРИЯ MIRZA TAIL BOARD MAN Ot E11.9 TYPE 2 DIABETES MELLITUS WITHOUT COMPLIC 02/07/2016 МАРИЯ MIRZA TAIL BOARD MAN Ot I10 ESSENTIAL (PRIMARY) HYPERTENSION 02/07/2016 МАРИЯ MIRZA APRN Ot J44.9 CHRONIC OBSTRUCTIVE PULMONARY DISEASE, U 02/07/2016 МАРИЯ MIRZA TAIL BOARD MAN Ot M54.6 PAIN IN THORACIC SPINE 02/07/2016 МАРИЯ MIRZA TAIL BOARD MAN Ot Z79.899 OTHER EDUCATION PROGRAM SPECIALIST (CURRENT) DRUG THERAPY 02/07/2016 МАРИЯ MIRZA TAIL BOARD MAN Ot Z90.5 ACQUIRED ABSENCE OF KIDNEY 04/24/2016 Ot 789.00 ABDOMINAL PAIN, UNSPECIFIED SITE 04/24/2016 VERA SCOTT Ot 723.1 CERVICALGIA 04/24/2016 VERA SCOTT Ot 787.20 DYSPHAGIA, UNSPECIFIED 04/24/2016 MADL, PHUC L MOTOR VEHICLE SALESPERSON Ot M79.604 PAIN IN RIGHT LEG 04/24/2016 MADL, PHUC L MOTOR VEHICLE SALESPERSON Ot M79.89 OTHER SPECIFIED SOFT TISSUE DISORDERS 04/24/2016 MADL, PHUC L MOTOR VEHICLE SALESPERSON Ot R07.89 OTHER CHEST PAIN 04/24/2016 MADL, PHUC L MOTOR VEHICLE SALESPERSON Ot R93.8 ABNORMAL FINDINGS ON DIAGNOSTIC IMAGING 04/24/2016 MADL, PHUC L MOTOR VEHICLE SALESPERSON Ot R07.89 OTHER CHEST PAIN 04/24/2016 MADL, PHUC L MOTOR VEHICLE SALESPERSON Ot R93.8 ABNORMAL FINDINGS ON DIAGNOSTIC IMAGING 04/24/2016 MADL, PHUC L MOTOR VEHICLE SALESPERSON Ot M79.604 PAIN IN RIGHT LEG 04/24/2016 MADL, PHUC L MOTOR VEHICLE SALESPERSON Ot M79.89 OTHER SPECIFIED SOFT TISSUE DISORDERS 04/24/2016 PHUC AMIN MOTOR VEHICLE SALESPERSON Ot R07.89 OTHER CHEST PAIN 04/24/2016 MADPHUC Teixeira MOTOR VEHICLE SALESPERSON Ot R93.8 ABNORMAL FINDINGS ON DIAGNOSTIC IMAGING 04/24/2016 PHUC AMIN MOTOR VEHICLE SALESPERSON Ot M79.604 PAIN IN RIGHT LEG 04/24/2016 MADPHUC Teixeira MOTOR VEHICLE SALESPERSON Ot M79.89 OTHER SPECIFIED SOFT TISSUE DISORDERS 04/25/2016 MADLPHUC MOTOR VEHICLE SALESPERSON Ot M79.604 PAIN IN RIGHT LEG 04/25/2016 MADPHUC Teixeira MOTOR VEHICLE SALESPERSON Ot M79.89 OTHER SPECIFIED SOFT TISSUE DISORDERS 04/25/2016 МАРИЯ MIRZA TAIL BOARD MAN Ot E11.9 TYPE 2 DIABETES MELLITUS WITHOUT COMPLIC 04/25/2016 МАРИЯ MIRZA APRN Ot I10 ESSENTIAL (PRIMARY) HYPERTENSION 04/25/2016 МАРИЯ MIRZA APRN Ot J44.9 CHRONIC OBSTRUCTIVE PULMONARY DISEASE, U 04/25/2016 МАРИЯ MIRZA TAIL BOARD MAN Ot M54.6 PAIN IN THORACIC SPINE 04/25/2016 МАРИЯ MIRZA TAIL BOARD MAN Ot Z79.899 OTHER RETIREMENT (CURRENT) DRUG THERAPY 04/25/2016 МАРИЯ MIRZA TAIL BOARD MAN Ot Z90.5 ACQUIRED ABSENCE OF KIDNEY 04/25/2016 PHUC AMIN MOTOR VEHICLE SALESPERSON Ot I70.1 ATHEROSCLEROSIS OF RENAL ARTERY 04/25/2016 MADLWENDYA L MOTOR VEHICLE SALESPERSON Ot I71.4 ABDOMINAL AORTIC ANEURYSM, WITHOUT RUPTU 04/25/2016 MADLWENDYA Lluvia MOTOR VEHICLE SALESPERSON Ot K76.0 FATTY (CHANGE OF) LIVER, NOT ELSEWHERE C 04/25/2016 MADLWENDYA L MOTOR VEHICLE SALESPERSON Ot R10.11 RIGHT UPPER QUADRANT PAIN 04/30/2016 MADLWENDYA Lluvia MOTOR VEHICLE SALESPERSON Ot I70.1 ATHEROSCLEROSIS OF RENAL ARTERY 04/30/2016 MADLYIFANPHUC L MOTOR VEHICLE SALESPERSON Ot I71.4 ABDOMINAL AORTIC ANEURYSM, WITHOUT RUPTU 04/30/2016 MADLYIFANPHUC L MOTOR VEHICLE SALESPERSON Ot K76.0 FATTY (CHANGE OF) LIVER, NOT ELSEWHERE C 04/30/2016 MADLWENDYA L MOTOR VEHICLE SALESPERSON Ot R10.11 RIGHT UPPER QUADRANT PAIN 05/10/2016 PHUC AMIN MOTOR VEHICLE SALESPERSON Ot I70.1 ATHEROSCLEROSIS OF RENAL ARTERY 05/10/2016 PHUC AMIN MOTOR VEHICLE SALESPERSON Ot I71.4 ABDOMINAL AORTIC ANEURYSM, WITHOUT RUPTU 05/10/2016 PHUC AMIN MOTOR VEHICLE SALESPERSON Ot K76.0 FATTY (CHANGE OF) LIVER, NOT ELSEWHERE C 05/10/2016 PHUC AMIN MOTOR VEHICLE SALESPERSON Ot R10.11 RIGHT UPPER QUADRANT PAIN 05/10/2016 PHUC AMIN MOTOR VEHICLE SALESPERSON Ot R07.89 OTHER CHEST PAIN 05/10/2016 PHUC AMIN MOTOR VEHICLE SALESPERSON Ot R93.8 ABNORMAL FINDINGS ON DIAGNOSTIC IMAGING 05/10/2016 PHUC AMIN MOTOR VEHICLE SALESPERSON Ot M79.604 PAIN IN RIGHT LEG 05/10/2016 PHUC AMIN MOTOR VEHICLE SALESPERSON Ot M79.89 OTHER SPECIFIED SOFT TISSUE DISORDERS 05/11/2016 MANISHA CORREIA, VERA T Ot 883.0 OPEN WOUND OF FINGER 05/11/2016 MANISHA CORREIA, VERA T Ot E000.8 OTHER EXTERNAL CAUSE STATUS 05/11/2016 VERA DYER MD T Ot E920.8 ACC-CUTTING INSTRUM NEC 05/11/2016 МАРИЯ MIRZA APRN Ot E11.9 TYPE 2 DIABETES MELLITUS WITHOUT COMPLIC 05/11/2016 АМРИЯ MIRZA APRN Ot I10 ESSENTIAL (PRIMARY) HYPERTENSION 05/11/2016 МАРИЯ MIRZA APRN Ot J44.9 CHRONIC OBSTRUCTIVE PULMONARY DISEASE, U 05/11/2016 МАРИЯ MIRZA APRN Ot M54.6 PAIN IN THORACIC SPINE 05/11/2016 МАРИЯ MIRZA APRN Ot Z79.899 OTHER RETIREMENT (CURRENT) DRUG THERAPY 05/11/2016 МАРИЯ MIRZA APRN Ot Z90.5 ACQUIRED ABSENCE OF KIDNEY 05/29/2016 NAVEEN FERRARO TAIL BOARD MAN Ot R10.9 UNSPECIFIED ABDOMINAL PAIN 07/23/2016 МАРИЯ MIRZA APRN Ot E11.9 TYPE 2 DIABETES MELLITUS WITHOUT COMPLIC 07/23/2016 МАРИЯ MIRZA APRN Ot I10 ESSENTIAL (PRIMARY) HYPERTENSION 07/23/2016 МАРИЯ MIRZA APRN Ot J44.9 CHRONIC OBSTRUCTIVE PULMONARY DISEASE, U 07/23/2016 МАРИЯ MIRZA TAIL BOARD MAN Ot L23.9 ALLERGIC CONTACT DERMATITIS, UNSPECIFIED 07/23/2016 МАРИЯ MIRZA TAIL BOARD MAN Ot R21 RASH AND OTHER NONSPECIFIC SKIN ERUPTION 07/23/2016 МАРИЯ MIRZA TAIL BOARD MAN Ot Z79.899 OTHER RETIREMENT (CURRENT) DRUG THERAPY 07/23/2016 Ot 789.00 ABDOMINAL PAIN, UNSPECIFIED SITE 07/23/2016 VERA SCOTT Ot 723.1 CERVICALGIA 07/23/2016 VERA SCOTT Ot 787.20 DYSPHAGIA, UNSPECIFIED 07/23/2016 MADL, PHUC L MOTOR VEHICLE SALESPERSON Ot M79.604 PAIN IN RIGHT LEG 07/23/2016 MADL, PHUC L MOTOR VEHICLE SALESPERSON Ot M79.89 OTHER SPECIFIED SOFT TISSUE DISORDERS 07/23/2016 MADL, PHUC L MOTOR VEHICLE SALESPERSON Ot R07.89 OTHER CHEST PAIN 07/23/2016 MADL, PHUC L MOTOR VEHICLE SALESPERSON Ot R93.8 ABNORMAL FINDINGS ON DIAGNOSTIC IMAGING 07/23/2016 MADL, PHUC L MOTOR VEHICLE SALESPERSON Ot I70.1 ATHEROSCLEROSIS OF RENAL ARTERY 07/23/2016 MADL, PHUC L MOTOR VEHICLE SALESPERSON Ot I71.4 ABDOMINAL AORTIC ANEURYSM, WITHOUT RUPTU 07/23/2016 MADL, PHUC L MOTOR VEHICLE SALESPERSON Ot K76.0 FATTY (CHANGE OF) LIVER, NOT ELSEWHERE C 07/23/2016 MADL, PHUC L MOTOR VEHICLE SALESPERSON Ot R10.11 RIGHT UPPER QUADRANT PAIN 07/23/2016 NAVEEN FERRARO TAIL BOARD MAN Ot R10.9 UNSPECIFIED ABDOMINAL PAIN 07/25/2016 МАРИЯ MIRZA TAIL BOARD MAN Ot E11.9 TYPE 2 DIABETES MELLITUS WITHOUT COMPLIC 07/25/2016 МАРИЯ MIRZA TAIL BOARD MAN Ot I10 ESSENTIAL (PRIMARY) HYPERTENSION 07/25/2016 МАРИЯ MIRZA TAIL BOARD MAN Ot J44.9 CHRONIC OBSTRUCTIVE PULMONARY DISEASE, U 07/25/2016 МАРИЯ MIRZA TAIL BOARD MAN Ot L23.9 ALLERGIC CONTACT DERMATITIS, UNSPECIFIED 07/25/2016 МАРИЯ MIRZA TAIL BOARD MAN Ot R21 RASH AND OTHER NONSPECIFIC SKIN ERUPTION 07/25/2016 МАРИЯ MIRZA TAIL BOARD MAN Ot Z79.899 OTHER EDUCATION PROGRAM SPECIALIST (CURRENT) DRUG THERAPY 02/07/2017 VERA SCOTT Ot 723.1 CERVICALGIA 02/07/2017 VERA SCOTT Ot 787.20 DYSPHAGIA, UNSPECIFIED 02/07/2017 MADPHUC Teixeira MOTOR VEHICLE SALESPERSON Ot M79.604 PAIN IN RIGHT LEG 02/07/2017 MADLPHUC MOTOR VEHICLE SALESPERSON Ot M79.89 OTHER SPECIFIED SOFT TISSUE DISORDERS 02/07/2017 MADLPHUC MOTOR VEHICLE SALESPERSON Ot R07.89 OTHER CHEST PAIN 02/07/2017 MADLPHUC MOTOR VEHICLE SALESPERSON Ot R93.8 ABNORMAL FINDINGS ON DIAGNOSTIC IMAGING 02/07/2017 MADPHUC Teixeira MOTOR VEHICLE SALESPERSON Ot I70.1 ATHEROSCLEROSIS OF RENAL ARTERY 02/07/2017 MADLPHUC MOTOR VEHICLE SALESPERSON Ot I71.4 ABDOMINAL AORTIC ANEURYSM, WITHOUT RUPTU 02/07/2017 MADLPHUC MOTOR VEHICLE SALESPERSON Ot K76.0 FATTY (CHANGE OF) LIVER, NOT ELSEWHERE C 02/07/2017 MADPHUC Teixeira MOTOR VEHICLE SALESPERSON Ot R10.11 RIGHT UPPER QUADRANT PAIN 02/07/2017 NAVEEN FERRARO TAIL BOARD MAN Ot R10.9 UNSPECIFIED ABDOMINAL PAIN 02/07/2017 SANDRA [...] SCOTT Ot 787.20 DYSPHAGIA, UNSPECIFIED 02/08/2017 MADLPHUC MOTOR VEHICLE SALESPERSON Ot M79.604 PAIN IN RIGHT LEG 02/08/2017 MADLPHUC MOTOR VEHICLE SALESPERSON Ot M79.89 OTHER SPECIFIED SOFT TISSUE DISORDERS 02/08/2017 MADLPHUC MOTOR VEHICLE SALESPERSON Ot R07.89 OTHER CHEST PAIN 02/08/2017 MADLPHUC MOTOR VEHICLE SALESPERSON Ot R93.8 ABNORMAL FINDINGS ON DIAGNOSTIC IMAGING 02/08/2017 MADLPHUC MOTOR VEHICLE SALESPERSON Ot I70.1 ATHEROSCLEROSIS OF RENAL ARTERY 02/08/2017 MADLPHUC MOTOR VEHICLE SALESPERSON Ot I71.4 ABDOMINAL AORTIC ANEURYSM, WITHOUT RUPTU 02/08/2017 MADLPHUC MOTOR VEHICLE SALESPERSON Ot K76.0 FATTY (CHANGE OF) LIVER, NOT ELSEWHERE C 02/08/2017 MADLPHUC MOTOR VEHICLE SALESPERSON Ot R10.11 RIGHT UPPER QUADRANT PAIN 02/08/2017 [...] 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 03/06/2017 ADARSH DO, STANLEY K Ot E78.00 [...] 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 03/12/2017 ADARSH DO, STANLEY K Ot E78.00 PURE HYPERCHOLESTEROLEMIA, UNSPECIFIED 03/12/2017 ADARSH DO, STNALEY K Ot I12.9 HYPERTENSIVE CHRONIC KIDNEY DISEASE [...] MD, Ot 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 08/29/2017 MAKENZIE CHAPMAN MD Ot I34.0 [...] MD Ot 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 09/03/2017 MAKENZIE CHAPMAN MD Ot I34.0 [...] Z95.820 PERIPHERAL VASCULAR ANGIOPLASTY STATUS W 09/12/2017 MAKENZIE CHAPMAN MD Ot I10 ESSENTIAL (PRIMARY) HYPERTENSION 09/12/2017 MAKENZIE CHAPMAN MD Ot 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 09/12/2017 MAKENZIE CHAPMAN MD Ot I34.0 [...] OTHER NON- CORONARY VESSEL 03/16/2011 39.90 INSEJ [id number] PERIPHERAL NON-CO 03/16/2011 88.42 CONTRAST AORTOGRAM 03/16/2011 88.45 CONTRAST RENAL ARTERIOGR 03/16/2011 53514 STREP A (IN-HOUSE) 04/02/2012 04887 ROUTINE VENIPUNCTURE 04/26/2012 65465 CBC 04/26/2012 83600 RENAL PROFILE 04/27/2012 [id number] GFR CALC (RESULT ONLY) 04/27/2012 35562 TSH 04/27/2012 98104 A1C (RML) 04/27/2012 Nephrolog Gabi William 05/29/2012 89608 ROUTINE VENIPUNCTURE 08/06/2012 [id number] GFR CALC (RESULT ONLY) 08/07/2012 78730 RENAL PROFILE 08/07/2012 36846 CBC 08/07/2012 CARDIOLOG [facility] 10/30/2013 06476 CBC 01/14/2014 1121954 GFR CALC (RESULT ONLY) 01/14/2014 25050 BMP 01/14/2014 92567 LIPID PANEL 01/14/2014 92453 LIVER PANEL (LFT) 01/14/2014 19454 TSH 01/14/2014 93106 A1C (RML) 01/14/2014 29965 ROUTINE VENIPUNCTURE 01/15/2014 72073 THERAPUTIC INJ SQ/IM 01/24/2014 J0696 ROCEPHIN INJ 1 g 01/24/2014 56234 ROUTINE VENIPUNCTURE 07/31/2014 50196 STREP A (IN-HOUSE) 07/31/2014 09295 MONO TEST (IN-HOUSE) 07/31/2014 08064 BARIUM SWALLOW XRAY MODIFIED 07/31/2014 19213 CMP 07/31/2014 03266 CBC 07/31/2014 Results Test Result Range Complete [...] culture - 02/07/17 20:35 Bacterial urine culture [id number] NRG COLONY COUNT >100,000/ML NRG FTX;REPORTABLE SENSITIVITY [...] culture - 03/06/17 21:55 Bacterial urine culture [id number] NRG COLONY COUNT >100,000/ML NRG FTX;REPORTABLE SENSITIVITY [...] - 09/14/17 15:52 TSH 1.61 mIU/L NRG Complete blood count (CBC) with automated white blood cell (WBC) differential - 02/08/18 02:20 Blood leukocytes automated count (number/volume) 6.6 10*3/uL 4.3-11.0 Blood erythrocytes automated count (number/volume) 3.68 10*6/uL 4.35-5.85 Venous blood hemoglobin measurement (mass/volume) 11.6 g/dL 11.5-16.0 Blood hematocrit (volume fraction) 35 % 35-52 Automated erythrocyte mean corpuscular volume 95 [foz_us] 80-99 Automated erythrocyte mean corpuscular hemoglobin (mass per erythrocyte) 32 pg 25-34 Automated erythrocyte mean corpuscular hemoglobin concentration measurement ( mass/volume) 33 g/dL 32-36 Automated erythrocyte distribution width ratio 14.1 % 10.0-14.5 Automated blood platelet count (count/volume) 179 10*3/uL 130-400 Automated blood platelet mean volume measurement 10.9 [foz_us] 7.4-10.4 Automated blood neutrophils/100 leukocytes 58 % 42-75 Automated blood lymphocytes/100 leukocytes 31 % 12-44 Blood monocytes/100 leukocytes 8 % 0-12 Automated blood eosinophils/100 leukocytes 3 % 0-10 Automated blood basophils/100 leukocytes 0 % 0-10 Blood neutrophils automated count (number/volume) 3.8 10*3 1.8-7.8 Blood lymphocytes automated count (number/volume) 2.1 10*3 1.0-4.0 Blood monocytes automated count (number/volume) 0.5 10*3 0.0-1.0 Automated eosinophil count 0.2 10*3/uL 0.0-0.3 Automated blood basophil count (count/volume) 0.0 10*3/uL 0.0-0.1 PT panel in platelet poor plasma by coagulation assay - 02/08/18 02:20 Prothrombin time (PT) in platelet poor plasma by coagulation assay 12.9 s 12.2-14.7 INR in platelet poor plasma or blood by coagulation assay 1.0 0.8-1.4 Activated partial thromboplastin time (aPTT) in platelet poor plasma bycoagulation assay - 02/08/18 02:20 Activated partial thromboplastin time (aPTT) in platelet poor plasma bycoagulation assay 29 s 24-35 Comprehensive metabolic panel - 02/08/18 02:20 Serum or plasma sodium measurement (moles/volume) 138 mmol/L 135-145 Serum or plasma potassium measurement (moles/volume) 4.2 mmol/L 3.6-5.0 Serum or plasma chloride measurement (moles/volume) 106 mmol/L 98-107 Carbon dioxide 22 mmol/L 21-32 Serum or plasma anion gap determination (moles/volume) 10 mmol/L 5-14 Serum or plasma urea nitrogen measurement (mass/volume) 17 mg/dL 7-18 Serum or plasma creatinine measurement (mass/volume) 1.37 mg/dL 0.60-1.30 Serum or plasma urea nitrogen/creatinine mass ratio 12 NRG Serum or plasma creatinine measurement with calculation of estimated glomerular filtration rate 40 NRG Serum or plasma glucose measurement (mass/volume) 106 mg/dL 70-105 Serum or plasma calcium measurement (mass/volume) 9.6 mg/dL 8.5-10.1 Serum or plasma total bilirubin measurement (mass/volume) 0.4 mg/dL 0.1-1.0 Serum or plasma alkaline phosphatase measurement (enzymatic activity/volume) 73 U/L 40-136 Serum or plasma aspartate aminotransferase measurement (enzymatic activity/ volume) 18 U/L 5-34 Serum or plasma alanine aminotransferase measurement (enzymatic activity/volume ) 25 U/L 0-55 Serum or plasma protein measurement (mass/volume) 7.5 g/dL 6.4-8.2 Serum or plasma albumin measurement (mass/volume) 4.5 g/dL 3.2-4.5 CALCIUM CORRECTED 9.2 mg/dL 8.5-10.1 Magnesium - 02/08/18 02:20 Magnesium 2.2 mg/dL 1.8-2.4 Serum or plasma troponin i.cardiac measurement (mass/volume) - 02/08/18 02:20 Serum or plasma troponin i.cardiac measurement (mass/volume) < ng/ mL <0.30 Serum or plasma C reactive protein measurement (mass/volume) - 02/08/18 02:20 Serum or plasma C reactive protein measurement (mass/volume) 1.29 mg /dL 0.00-0.50 Myoglobin, serum - 02/08/18 02:20 Myoglobin, serum 75.0 ng/mL 10.0-92.0 Encounters ACCT No. Visit Date/Time Discharge Status Pt. Type Provider Facility Loc./Unit Complaint [id number] 08/29/2014 13:52:00 08/29/2014 23:59:59 CLS Outpatient SHAWNAEVELYN Teixeira APRNDELFIN Teixeira [id number] 07/31/2014 10:41:00 07/31/2014 23:59:59 CLS Outpatient WHIT LOVELL DO [id number] 06/15/2014 08:48:00 06/15/2014 23:59:59 CLS Outpatient OSEAS FELIX MD [id number] 05/22/2014 16:17:00 05/22/2014 23:59:59 CLS Outpatient OSEAS FELIX MD [id number] 01/24/2014 12:23:00 01/24/2014 23:59:59 CLS Outpatient MORE LOPEZ APRN [id number] 01/14/2014 08:55:00 01/14/2014 23:59:59 CLS Outpatient WHIT LOVELL DO [id number] 10/30/2013 11:03:00 10/30/2013 23:59:59 CLS Outpatient PAVAN YORK APRN [id number] 10/08/2013 15:16:00 10/08/2013 23:59:59 CLS Outpatient PHUC AMIN APRN [id number] 06/30/2013 16:43:00 06/30/2013 23:59:59 CLS Outpatient WHIT LOVELL DO [id number] 06/11/2013 15:18:00 06/11/2013 23:59:59 CLS Outpatient OSEAS FELIX MD [id number] 12/05/2012 13:32:00 12/05/2012 23:59:59 CLS Outpatient REBEL SOARES MD [id number] 08/07/2012 10:44:00 08/07/2012 23:59:59 CLS Outpatient VERA SHORE PA-C [id number] 08/06/2012 16:50:00 08/06/2012 23:59:59 CLS Outpatient [id number] 04/26/2012 15:04:00 04/26/2012 23:59:59 CLS Outpatient WHIT LOVELL DO [id number] 04/02/2012 11:58:00 04/02/2012 23:59:59 CLS Outpatient [id number] 04/02/2012 11:58:00 04/02/2012 23:59:59 CLS Outpatient WHIT LOVELL DO [id number] 08/30/2012 14:13:00 Document Registration [id number] 08/26/2012 00:00:00 Document Registration [id number] 03/30/2016 07:05:00 Document Registration [id number] 07/21/2016 07:06:00 Document Registration [id number] 12/07/2016 08:36:00 Document Registration [id number] 05/06/2016 08:35:00 Document Registration [id number] 01/18/2017 08:41:00 Document Registration [id number] 09/28/2017 14:40:00 09/28/2017 23:59:59 CLS Outpatient SHAWNAL PHUC [facility] [id number] 09/14/2017 15:00:00 Document Registration [id number] 09/10/2017 16:54:00 09/10/2017 23:59:59 CLS Preadmit MAKENZIE CHAPMAN MD [facility] RAD I71.4 AAA [id number] 09/05/2017 08:00:00 09/05/2017 23:59:59 CLS Preadmit MAKENZIE CHAPMAN MD [facility] CARD I71.4 AAA [id number] 08/28/2017 09:00:00 08/28/2017 23:59:59 CLS Preadmit MAKENZIE CHAPMAN MD [facility] RAD AAA [id number] 08/28/2017 07:51:00 08/28/2017 23:59:59 CLS Outpatient MAKENZIE CHAPMAN MD [facility] RAD I71.4 AAA [id number] 08/23/2017 11:21:00 08/23/2017 23:59:59 CLS Preadmit MAKENZIE CHAPMAN MD [facility] CARD I71.4 AAA [id number] 05/04/2017 09:47:00 05/04/2017 23:59:59 CLS Preadmit RIDDHI MURRAY [facility] RAD M54.12 CERVICAL RADICULOPATHY [id number] 04/25/2017 07:59:00 04/25/2017 11:15:00 DIS Emergency RADHA CORREIA, DIMAS Morgan [facility] ER DIARRHEA [id number] 03/06/2017 20:33:00 03/06/2017 22:58:00 DIS Emergency ADARSH STANLEY TORRES Lorraine [facility] ER LOWER STOMACH/BACK PAIN [id number] 02/07/2017 17:57:00 02/07/2017 23:05:00 DIS Emergency SANDRA LAWSON MD [facility] ER CHEST/BACK PAIN [id number] 07/23/2016 11:20:00 07/23/2016 12:15:00 DIS Emergency МАРИЯ MIRZA TAIL BOARD MAN [facility] ER L ARM LUMP/REDNESS [id number] 05/26/2016 15:47:00 05/26/2016 23:59:59 CLS Outpatient NAVEEN FERRARO TAIL BOARD MAN [facility] RAD ACUTE RIGHT FLANK PAIN [id number] 04/24/2016 08:26:00 04/24/2016 23:59:59 CLS Outpatient MADL, PHUC L [employer] VE[employer] SALESPERSON [facility] RAD AAA,RUQ PAIN [id number] 02/16/2016 16:41:00 02/16/2016 23:59:59 CLS Outpatient PAVAN YORK TAIL BOARD MAN [facility] QUICK [id number] 02/04/2016 10:50:00 02/04/2016 12:35:00 DIS Emergency МАРИЯ MIRZA TAIL BOARD MAN [facility] ER CHEST PAIN RADIATING THRU BACK [id number] 12/03/2015 11:33:00 12/03/2015 12:58:00 DIS Emergency BRITNEY NICHOLS MD [facility] ER BACK PAIN [id number] 11/22/2015 13:34:00 11/22/2015 23:59:59 CLS Outpatient MADL, PHUC L [employer]ERSON [facility] RAD ABNORMAL XRAY [id number] 11/17/2015 09:42:00 11/17/2015 23:59:59 CLS Outpatient MADL, PHUC L [employer]ERSON [facility] RAD PAIN OF RIGHT LOWER EXTREMITY [id number] 08/27/2015 16:37:00 08/27/2015 19:20:00 DIS Emergency МАРИЯ MIRZA APRN [facility] ER VOMITING,DIARRHEA [id number] 12/04/2014 21:30:00 12/04/2014 23:55:00 DIS Emergency VERA DYER MD [facility] ER L HAND PAIN/INJ [id number] 08/28/2014 16:35:00 08/28/2014 21:03:00 DIS Emergency ADARSH STANLEY TORRES K [facility] ER ABD PAIN [id number] 08/07/2014 10:31:00 08/07/2014 23:59:59 CLS Outpatient VERA SCOTT [facility] RAD SOLID FOOD DYPHAGIA NECK PAIN [id number] 05/24/2014 22:11:00 05/26/2014 13:38:00 DIS Inpatient MARGAUX ROSAS MD [facility] 4TH HYPONATREMIA;URINARY TRACT INFECTION;DIARRHEA [id number] 03/26/2014 12:14:00 03/26/2014 14:25:00 DIS Emergency LETHA COPPOLA [facility] ER LEFT KNEE PAIN [id number] 02/19/2014 13:18:00 02/19/2014 16:43:00 DIS Emergency BRITNEY NICHOLS MD [facility] ER CHEST PAIN [id number] 01/26/2014 16:19:00 01/26/2014 17:35:00 DIS Emergency МАРИЯ MIRZA APRN [facility] ER WOUND CARE [id number] 01/25/2014 20:34:00 01/25/2014 22:28:00 DIS Emergency LETHA COPPOLA [facility] ER CAT BITE [id number] 07/06/2013 16:17:00 07/06/2013 19:01:00 DIS Emergency BRITNEY NICHOLS MD [facility] ER ABD PAIN [id number] 11/10/2012 22:22:00 11/11/2012 14:30:00 DIS Inpatient MARGAUX ROSAS MD [facility] 4TH ACUTE RENAL FAILURE, ACUTE ABD PAIN, N/V/D [id number] 02/08/2018 02:27:00 Document Registration [id number] 05/25/2014 11:51:00 Document Registration [id number] 01/22/2012 19:53:00 Document Registration [id number] 09/19/2011 18:45:00 Document Registration [id number] 09/07/2011 22:14:00 Document Registration [id number] 07/14/2011 08:59:00 Document Registration [id number] 03/15/2011 18:46:00 Document Registration [id number] 03/08/2011 14:42:00 Document Registration [id number] 11/22/2010 05:25:00 Document Registration [id number] 08/29/2010 14:17:00 Document Registration [id number] 05/15/2010 09:10:00 Document Registration [id number] 01/17/2010 15:47:00 Document Registration
--- NOTE | 2018-02-08 06:17 | Diagnostic Imaging Report ---
INDICATION: Shortness of air COMPARISON: 02/07/2017 FINDINGS: Single frontal view of the chest demonstrates normal heart size and pulmonary vascularity. The lungs are well aerated and clear. No large pleural effusion or pneumothorax is seen. The visualized osseous structures show no acute abnormalities. IMPRESSION: 1. No acute cardiopulmonary process. Dictated by: Dictated on workstation # [id number]
[2018-02-08] MEDS ORDERED: CATHETER FLUSH 10 ML SYR IV PRN (07:30)
[2018-02-08] MEDS ORDERED: FLU QUADRIvalent (5+ YOA) 2018-2019 (AFLURIA) 0.5 ML IM ONE (07:30)
--- NOTE | 2018-02-08 08:03 | Consultation-Cardiology ---
HPI-Cardiology Cardiology Consultation Date of Consultation 02/08/18 Date of Admission Time Seen by Provider: 07:55 Indication: Chest pain HPI 57 years old lady with history of peripheral arterial disease, hypertension and hyperlipidemia. Patient reported episode of chest pain described as dull in nature on the left side of her chest lasted for about 5 minutes, came into the emergency room for evaluation, overnight she was feeling better, denied any further episodes of chest pain. No shortness of breath. No palpitation, syncope or near syncopal episodes. Patient was scheduled for stress test in August 2017 but did not show up for her test. Home Medications & Allergies Allergies: Coded Allergies: NSAIDS (Non-Steroidal Anti-Inflamma (Verified Allergy, Unknown, 11/11/12) Sulfa (Sulfonamide Antibiotics) (Verified Allergy, Unknown, 11/11/12) acetaminophen (Unverified Allergy, Unknown, 03/26/14) niacin (Verified Allergy, Unknown, 09/19/11) Uncoded Allergies: IV CONTRAST (Allergy, Unknown, 11/11/12) Home Medication List Reviewed: Yes [id number] Hx Patient Social History Alcohol Use: Rarely Uses Recreational Drug Use: No Smoking Status: Former Smoker Former smoker/When Quit: May 07, 2011 Type Used: Cigarettes Recent Foreign Travel: No Recent Infectious Disease Expo: No Recent Hopitalizations: No Physical Abuse Screen: No Sexual Abuse: No Immunizations Up To Date Tetanus Booster (TDap): Less than 5yrs Date of Pneumonia Vaccine: Jan 05, 2011 Date of Influenza Vaccine: Feb 04, 2017 Past Medical History Past medical history as described below Family Medical History Significant Family History: No Pertinent Family Hx Family Medical Hx Noncontributory to her current condition Family History: Patient reports no known family medical history. Review of Systems Constitutional: no symptoms reported, see HPI EENTM: see HPI, no symptoms reported Respiratory: no symptoms reported, see HPI Cardiovascular: see HPI, chest pain; No edema, No Hx of Intervention, No palpitations, No syncope, No vascular heart diseas, No other Gastrointestinal: no symptoms reported, see HPI Genitourinary: no symptoms reported, see HPI Musculoskeletal: no symptoms reported, see HPI Skin: no symptoms reported, see HPI Psychiatric/Neurological: No Symptoms Reported, See HPI Reviewed Test Results Reviewed Test Results Lab Laboratory Tests Test 02/08/18 02:20 Range/Units White Blood Count 6.6 4.3-11.0 10^3/uL Red Blood Count 3.68 L 4.35-5.85 10^6/uL Hemoglobin 11.6 11.5-16.0 G/DL Hematocrit 35 35-52 % Mean Corpuscular Volume 95 80-99 FL Mean Corpuscular Hemoglobin 32 25-34 PG Mean Corpuscular Hemoglobin Concent 33 32-36 G/DL Red Cell Distribution Width 14.1 10.0-14.5 % Platelet Count 179 130-400 10^3/uL Mean Platelet Volume 10.9 H 7.4-10.4 FL Neutrophils (%) (Auto) 58 42-75 % Lymphocytes (%) (Auto) 31 12-44 % Monocytes (%) (Auto) 8 0-12 % Eosinophils (%) (Auto) 3 0-10 % Basophils (%) (Auto) 0 0-10 % Neutrophils # (Auto) 3.8 1.8-7.8 X 10^3 Lymphocytes # (Auto) 2.1 1.0-4.0 X 10^3 Monocytes # (Auto) 0.5 0.0-1.0 X 10^3 Eosinophils # (Auto) 0.2 0.0-0.3 10^3/uL Basophils # (Auto) 0.0 0.0-0.1 10^3/uL Prothrombin Time 12.9 12.2-14.7 SEC INR Comment 1.0 0.8-1.4 Activated Partial Thromboplast Time 29 24-35 SEC Sodium Level 138 135-145 MMOL/L Potassium Level 4.2 3.6-5.0 MMOL/L Chloride Level 106 98-107 MMOL/L Carbon Dioxide Level 22 21-32 MMOL/L Anion Gap 10 5-14 MMOL/L Blood Urea Nitrogen 17 7-18 MG/DL Creatinine 1.37 H 0.60-1.30 MG/DL Estimat Glomerular Filtration Rate 40 BUN/Creatinine Ratio 12 Glucose Level 106 H 70-105 MG/DL Calcium Level 9.6 8.5-10.1 MG/DL Corrected Calcium 9.2 8.5-10.1 MG/DL Magnesium Level 2.2 1.8-2.4 MG/DL Total Bilirubin 0.4 0.1-1.0 MG/DL Aspartate Amino Transf (AST/SGOT) 18 5-34 U/L Alanine Aminotransferase (ALT/SGPT) 25 0-55 U/L Alkaline Phosphatase 73 40-136 U/L Myoglobin 75.0 10.0-92.0 NG/ML Troponin I < 0.30 <0.30 NG/ML C-Reactive Protein High Sensitivity 1.29 H 0.00-0.50 MG/DL Total Protein 7.5 6.4-8.2 GM/DL Albumin 4.5 3.2-4.5 GM/DL Physical Exam Vital Signs Vital Signs - First Documented 02/08/18 02:10 Temp 97.6 Pulse 74 Resp 18 B/P (MAP) 236/112 (153) Pulse Ox 95 O2 Delivery Room Air Capillary Refill : Less Than 3 Seconds Height, Weight, BMI Height: 5'5.00" Weight: 288lbs. 7.0oz. 130.661250ad; 48.0 BMI Method:Stated General Appearance: No Apparent Distress, WD/WN Eyes: Bilateral Eye Normal Inspection, Bilateral Eye PERRL, Bilateral Eye EOMI HEENT: PERRL/EOMI, TMs Normal, Normal ENT Inspection, Pharynx Normal Neck: Full Range of Motion, Normal Inspection, Non Tender, Supple, Carotid Bruit Respiratory: Chest Non Tender, Lungs Clear, Normal Breath Sounds, No Accessory Muscle Use, No Respiratory Distress Cardiovascular: Regular Rate, Rhythm, No Edema, No Gallop, No JVD, No Murmur, Normal Peripheral Pulses Gastrointestinal: Normal Bowel Sounds, No Organomegaly, No Pulsatile Mass, Non Tender, Soft Back: Normal Inspection, No CVA Tenderness, No Vertebral Tenderness Extremity: Normal Capillary Refill, Normal Inspection, Normal Range of Motion, Non Tender, No Calf Tenderness, No Pedal Edema Neurologic/Psychiatric: Alert, Oriented x3, No Motor/Sensory Deficits, Normal Mood/Affect Skin: Normal Color, Warm/Dry Lymphatic: No Adenopathy A/P-Cardiology Admission Diagnosis Chest pain Coronary artery disease Abdominal aortic aneurysm Hypertension Assessment/Plan Chest pain nonspecific etiology, atypical in presentation, history of mild-to- moderate coronary artery disease, planning to evaluate stress test Coronary artery disease, mild to moderate disease. Had a cardiac catheterization done in 2007 and 2009 which showed nonobstructive disease. No recent workup, planning to evaluate stress test. Peripheral arterial disease, history of abdominal aortic aneurysm with stent graft and bilateral renal artery stenting. Procedure done by Dr. Arthur in 2007. 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 No recent checkup, monitor Hypertension, poorly controlled, I will restart home medication monitor Hyperlipidemia I will evaluate lipid profile and metabolic profile Gastroesophageal reflux disease COPD Noncompliance with appointment or medication. Educated about compliance Addendum on February 08, 2018 at 1025 Patient has an abnormal stress test with anterior wall ischemia I will proceed with cardiac catheterization, evaluate her abdominal aorta and her left renal artery Clinical Quality Measures AMI/AHF: ASA po Prior to arrival: No DVT/VTE Risk/Contraindication: Risk Factor Score Per Nursin RFS Level Per Nursing on Admit: 2=Moderate MAKENZIE CHAPMAN MD Feb 08, 2018 08:03
[2018-02-08] MEDS ORDERED: REGADENOSON 0.4 MG/5 ML SYR (LEXISCAN) IV ONE ×2 (08:04→08:15)
--- NOTE | 2018-02-08 09:17 | History & Physicial (CHS) ---
HPI History of Present Illness: 57 year old female presented to ED overnight with complaint of chest pain. Troponins negative, but patient with known CAD disease as well as multiple vascular stents. Also morbidly obese and pre-diabetic per clinic records. Placed in observation with consult to cardiology. Source: patient, RN/MD, RN notes reviewed, old records Exam Limitations: no limitations Date seen by provider: Feb 08, 2018 Time Seen by Provider: 15:40 Attending Physician Jesi Valladares DO PCP Feng MILLS Consult Dr. Smith, Cardiology Date of Admission Feb 08, 2018 at 03:31 Home Medications Home Medications Reviewed patient Home Medication Reconciliation performed by pharmacy medication reconciliations preventative maintenance technician and/or nursing. Patients Allergies have been reviewed. Allergies Coded Allergies: NSAIDS (Non-Steroidal Anti-Inflamma (Verified Allergy, Unknown, 11/11/12) Sulfa (Sulfonamide Antibiotics) (Verified Allergy, Unknown, 11/11/12) acetaminophen (Unverified Allergy, Unknown, 03/26/14) niacin (Verified Allergy, Unknown, 09/19/11) Uncoded Allergies: IV CONTRAST (Allergy, Unknown, 11/11/12) [id number]-[id number] Hx Patient Social History Living Status: lives independently Alcohol Use: Rarely Uses Recreational Drug Use: No Smoking Status: Former Smoker Former smoker/When Quit: May 07, 2011 Type Used: Cigarettes Recent Foreign Travel: No Contact w/other who traveled: No Recent Hopitalizations: No Recent Infectious Disease Expo: No Physical Abuse Screen: No Sexual Abuse: No Immunizations Up To Date Tetanus Booster (TDap): Less than 5yrs Date of Pneumonia Vaccine: Jan 05, 2011 Date of Influenza Vaccine: Feb 04, 2017 Past Medical History Medical Hx: 1. COPD 2. Abdominal anuerysm s/p repair and stent graft 3. Hypertension 4. Neuropathy 5. Urinary incontinence 6. Acid reflux 7. Stage III kidney disease 8. Renal artery stenosis s/p bilateral renal artery stenting 9. Atherosclerotic occlusive disease 10. Hyperlipidemia 11. Chronic back pain 12. Blindness in left eye secondary to glaucoma 13. History of tobaccoism 14. Prediabetes 15. Peripheral Vascular Disease 16. Non-alcoholic hepatic steatosis 17. Right Upper Lung Nodule 18. Osteoarthritis, Fibromyalgia 19. Medical Non-compliance Surg Hx: 1. Left renal artery stent 2007 and 2010, Right renal artery stent 2010 2. Abdominal aortic stent graft 2007 3. Cardiac cath x 3- non-occlusive disease 4. Left TM reconstruction 5. Vascular stenting to stomach and bilateral legs 6. T&A Family Medical History Significant Family History: No Pertinent Family Hx Family History: Patient reports no known family medical history. Review of Systems ([facility]) Constitutional: see HPI EENTM: no symptoms reported Respiratory: no symptoms reported Cardiovascular: see HPI, chest pain Gastrointestinal: no symptoms reported Genitourinary: no symptoms reported Musculoskeletal: no symptoms reported Skin: no symptoms reported Psychiatric/Neurological: No Symptoms Reported Physical Exam-([facility]) Physical Exam Vital Signs Capillary Refill : Less Than 3 Seconds General Appearance: WD/WN, no apparent distress Eyes: Bilateral Eye Normal Inspection, Bilateral Eye EOMI HEENT: pharynx normal; No scleral icterus (R), No scleral icterus (L), No photophobia Neck: non-tender, full range of motion, supple, normal inspection Respiratory: lungs clear, normal breath sounds, no respiratory distress, no accessory muscle use Cardiovascular: regular rate, rhythm, no gallop, no murmur Gastrointestinal: normal bowel sounds, non tender, soft, no pulsatile mass Rectal: deferred Extremities: non-tender, no calf tenderness; No slow capillary refill Neurologic/Psychiatric: vise hand II-XII nml as tested, alert, normal mood/affect, oriented x 3 Skin: normal color, warm/dry Assessment/Plan Assessment/Plan Admission Dx Chest pain Coronary artery disease HTN Hyperlipidemia Vascular Disease AAA Renal Artery Stenosis COPD Morbid Obesity, BMI 48 Admission Status: Observation Assessment & Plan Chest pain -resolved -troponins negative -consult to cardiology, cardiac cath without intervention -ok to discharge from cardiology standpoint Coronary artery disease -non-obstructive per previous caths -remains non-obstructive per cath this AM -continue to follow with Dr. Smith HTN -significant HTN on presentation -improved control since placed in observation -increase amlodipine to 10 mg on discharge Hyperlipidemia -continue medications from prior to admission Vascular Disease -hx of stenting to left renal artery x2, right renal artery x1, AAA, stomach and bilateral legs AAA -s/p repair and stent grafting Renal Artery Stenosis -s/p stenting COPD -history of tobacco abuse -continued cessation encouraged Medical Non-Compliance Morbid Obesity, BMI 48 Clinical Quality Measures AMI/AHF: ASA po Prior to arrival: No DVT/VTE Risk/Contraindication: Risk Factor Score Per Nursin RFS Level Per Nursing on Admit: 2=Moderate Copy Copies To 1: [facility]/JESI MORILLO DO Feb 08, 2018 09:17
[2018-02-08] MEDS ORDERED: CIPR500T4 PO (09:33)
[2018-02-08] MEDS ORDERED: AMLO5TAB7 PO (09:33)
[2018-02-08] MEDS ORDERED: FLUT16SP22 NS (09:33)
[2018-02-08] MEDS ORDERED: MULT-10 PO (09:41)
[2018-02-08] MEDS ORDERED: MULT-35 PO (09:41)
[2018-02-08] MEDS ORDERED: CALC-654 PO (09:41)
[2018-02-08] MEDS ORDERED: ASCO-262 PO (09:41)
[2018-02-08] MEDS ORDERED: METO200T48 PO (09:43)
[2018-02-08] MEDS ORDERED: lisINopril 20 MG (PRINIVIL) TABLET PO NR (09:47)
[2018-02-08] MEDS ORDERED: HYDROCHLOROTHIAZIDE 12.5 MG (HCTZ) CAP PO NR (09:47)
[2018-02-08] MEDS: amLODIPine 5 MG (NORVASC) TAB PO NR ×2 (09:54→10:02)
[2018-02-08] MEDS: meTOprolol SUCCINATE 100 MG (TOPROL XL) TAB PO NR ×2 (09:54→10:02)
[2018-02-08 10:02] LABS: MYOGLOBIN SERUM 83.5 NG/ML (10.0-92.0)
[2018-02-08] MEDS ORDERED: LIDOCAINE 1% INJ 20 ML 20 ML VIAL ONE (10:18)
[2018-02-08] MEDS ORDERED: HEParin (CATH LAB) 2,000 ML IV ONE (10:18)
[2018-02-08] MEDS ORDERED: fentaNYL INJECTION 100 MCG/2 ML AMP ONE (10:19)
[2018-02-08] MEDS ORDERED: MIDAZOLAM 5 MG/5 ML (VERSED) VIAL ONE (10:19)
--- NOTE | 2018-02-08 10:27 | Cardiac Procedure Note-CS/ASA ---
Pre-Procedure Note Pre-Op Procedure Note H&P Reviewed The H&P was reviewed, patient examined and no changes noted. Date H&P Reviewed: Feb 08, 2018 Time H&P Reviewed: 10:27 Conscious Sedation Pre-Proced Time 10:27 ASA Score 3 For ASA 3 and 4: Consider anesthesia and medical clearance. Also, for patients with a history of failed moderate sedation consider anesthesia. Airway Lungs Heart ASA score ASA 1: a normal healthy patient ASA 2: a patient with a mild systemic disease (mid diabetes, controlled hypertension, obesity x ASA 3: a patient with a severe systemic disease that limits activity (angina , COPD, prior Myocardial infarction) ASA 4: a patient with an incapacitating disease that is a constant threat to life (CHF, renal failure) ASA 5: a moribund patient not expected to survive 24 hrs. (ruptured aneurysm) ASA 6: a declared brain patient whose organs are being harvested. For emergent operations, add the letter E after the classification Mallampati Classification Grade 3 Sedation Plan Analgesia, Amnesia, Plan communicated to team members, Discussed options with patient/fam, Discussed risks with patient/fam The patient is an appropriate candidate to undergo the planned procedure, sedation, and anesthesia. The patient immediately re-assessed prior to indication. MAKENZIE CHAPMAN MD Feb 08, 2018 10:27
[2018-02-08] MEDS ORDERED: NS IV 1000 ML 1,000 ML IV SCH ×2 (10:30→11:15)
[2018-02-08] MEDS ORDERED: PATIENT MAY USE OWN MEDS, ALL PO SCH (11:15)
[2018-02-08] MEDS ORDERED: AMLO10TA4 PO (11:19)
--- NOTE | 2018-02-08 11:20 | Discharge Inst-Post CATH ---
Discharge Inst-CATH Post Cardiac Cath D/C Inst Follow Up/Plan Appointment with Dr Smith's office in 2 weeks CARDIAC CATH DISCHARGE INSTRUCTIONS *Hold Metformin for 48 hours post heart cath. ACTIVITY * Go Home directly and rest. * Limit activity of the leg (or wrist if it was used) for 7 days including aerobics, swimming, jogging, bicycling, etc. * Restrict stair-climbing for 7 days if possible, if not, climb up with your non -cath leg, then bring together on the same step. * Avoid lifting, pushing, pulling or excessive movement of the affected extremity for 7 days. * Customary sexual activity may be resumed after 2 days-use caution not to use a position that strains or causes pain to the affected extremity. * No driving for 24 hours. * NO SMOKING. * Avoid straining for bowel movements for 7 days. * Gentle walking on level ground is allowed. * Returning to work will depend on the type of procedure and the results. Your doctor will discuss this with you. CALL YOUR DOCTOR FOR ANY OF THE FOLLOWING: *If bleeding from the puncture site occurs- Apply gentle pressure to site with clean cloth and call your doctor or EMS. * If a knot or lump forms under the skin, increases in size, or causes pain. * If bruising appears to be worsening or moving further down your leg instead of disappearing. * Temperature above 101 F. CARE OF YOUR GROIN INCISION; * Bruising or purple discoloration of the skin near the puncture site is common. * You may shower only, no bathtub bathing for 5 days. Be careful to avoid slipping as your leg may feel stiff. * If a closure device was used on your femoral artery, please see the attached guide regarding care of the device and your leg. * Leave the dressing on, until removed by office staff. CARE OF YOUR WRIST INCISION; * Bruising or purple discoloration of the skin near the puncture site is common. * You may shower. * DO NOT submerge wrist. * Leave dressing on, until removed by office staff.. MAKENZIE SMITH MD Feb 08, 2018 11:20 am
--- NOTE | 2018-02-08 11:30 | Cardiac Cath Report ---
Cardiac Cath Report Physician (s)/Flatbed Stitcher (s) Physician MAKENZIE CHAPMAN MD Pre-Procedure Diagnosis Pre-Procedure Diagnosis: Chest pain Post-Procedure Note Procedure Start Date: Feb 08, 2018 Name of Procedure: Left heart catheterization Abdominal aortogram Selective right renal angiogram Findings/Procedure Note PROCEDURE NOTE: After explaining the procedure to the patient, all pros and cons were explained , all questions were answered. The patient signed the consent and then she was placed on the cardiac catheterization laboratory. Groin was prepped SL fashion local anesthesia was used. Sheath placed in the right femoral artery. Katharina right and left catheter were used to access the coronary system. I used a long exchange wire, was able to advance the Katharina right to the left ventricular cavity and pressure was measured pullback LV to aorta was done. I tried to intubate the left renal artery without success. Exchanging to a pigtail catheter and did abdominal aortogram the next change again over long stork wire into Katharina right and advance it to the right renal artery and did angiogram, no intervention was done At the end of the procedure the sheath was removed. Closure device was used FINDINGS: Hemodynamics LV 160/15 end-diastolic pressure 15 Aorta 161/70 mean of 106 ANATOMY: Left Main is free of obstructive disease Left Anterior Descending has 40 percent ostial stenosis nonobstructive disease mild disease distally Left Circumflex has mild disease nonobstructive disease Right Coronory Artery is nondominant artery with mild disease nonobstructive disease Aorta evaluation done with abdominal aortogram which showed patent stent in the abdominal aorta at the left renal artery is occluded the right renal artery has a stent that is patent, superior and inferior mesenteric artery was not well- visualized Selective right renal angiogram showed patent stent with mild to moderate ostial stenosis nonobstructive disease CONCLUSION: 1. Mild coronary artery disease nonobstructive disease 40 percent ostial LAD otherwise no significant obstructive disease 2. Normal left ventricular end-diastolic pressure 3. Abdominal aortic stent that is patent with no significant abnormality 4. Patent right renal artery stent with mild ostial stenosis nonobstructive disease 5. Occluded left renal artery DISCUSSION AND RECOMMENDATION: Medical therapy is recommended no intervention is needed Anesthesia Type: Conscious Sedation Estimated blood loss (mL): 20 ml Contrast Amount: 32 ml Total Radiation Dose: 749 mGy Post-Procedure Diagnosis Post-operative diagnosis: Coronary artery disease Chest pain Malignant hypertension Abdominal aortic aneurysm Renal artery stenosis MAKENZIE CHAPMAN MD Feb 08, 2018 11:30 am
--- NOTE | 2018-02-08 12:47 | STRESS TEST ---
DATE OF SERVICE: 02/08/2018 LEXISCAN MYOVIEW STRESS TEST REPORT REFERRING PHYSICIAN: Emma Moreno DO. Baseline heart rate is 67. Baseline blood pressure is 200/65. Baseline EKG is sinus rhythm with no ischemic changes. In summary, the patient was injected with 10.2 mCi of technetium-99 Myoview and the resting images were obtained. Then, she received 0.4 mg of Lexiscan followed by 33.0 mCi of technetium-99 Myoview. Throughout the test, there were no EKG changes. The resting and stress images were reviewed and compared in the short axis, horizontal long axis, and vertical long axis views. Review of the images showed breast attenuation with decreased uptake involving the anterior wall, anterolateral wall and anterior septum. Mild reversibility was noted. SSS is 9, SDS 6. TID value is 1.13. On the gated images, the left ventricle appeared to be in normal size with normal contractility. Calculated ejection fraction is 67%. CONCLUSION: 1. The patient tolerated Lexiscan well. 2. Breast attenuation with mild ischemia involving the anterior wall, anterolateral wall and anterior septum. 3. Normal left ventricular size with normal contractility. Calculated ejection fraction is 67%. Job ID: [id number] DocumentID: [id number] Dictated Date: 02/08/2018 10:18:42 Precast Molder Date: 02/08/2018 12:46:55 Dictated By: MAKENZIE CHAPMAN MD
--- NOTE | 2018-02-08 15:55 | Discharge Summary ---
Diagnosis/Chief Complaint Date of Admission Feb 08, 2018 at 04:20 Date of Discharge 02/08/18 Admission Diagnosis Admission Diagnosis Chest pain Coronary artery disease HTN Hyperlipidemia Vascular Disease AAA Renal Artery Stenosis COPD Morbid Obesity, BMI 48 Discharge Diagnosis Chest pain -resolved -troponins negative -consult to cardiology, cardiac cath without intervention -ok to discharge from cardiology standpoint Coronary artery disease -non-obstructive per previous caths -remains non-obstructive per cath this AM -continue to follow with Dr. Smith HTN -significant HTN on presentation -improved control since placed in observation -increase amlodipine to 10 mg on discharge Hyperlipidemia -continue medications from prior to admission Vascular Disease -hx of stenting to left renal artery x2, right renal artery x1, AAA, stomach and bilateral legs AAA -s/p repair and stent grafting Renal Artery Stenosis -s/p stenting COPD -history of tobacco abuse -continued cessation encouraged Medical Non-Compliance Morbid Obesity, BMI 48 Chief Complaint/HPI Chief Complaint/HPI 57 year old female presented to ED overnight with complaint of chest pain. Troponins negative, but patient with known CAD disease as well as multiple vascular stents. Also morbidly obese and pre-diabetic per clinic records. Placed in observation with consult to cardiology. Discharge Summary-OBS Procedures Cardiac Cath Consultations Dr. Smith, Cardiology Discharge Physical Examination Allergies: Coded Allergies: NSAIDS (Non-Steroidal Anti-Inflamma (Verified Allergy, Unknown, 11/11/12) Sulfa (Sulfonamide Antibiotics) (Verified Allergy, Unknown, 11/11/12) acetaminophen (Unverified Allergy, Unknown, 03/26/14) niacin (Verified Allergy, Unknown, 09/19/11) Uncoded Allergies: IV CONTRAST (Allergy, Unknown, 11/11/12) Vitals & I&Os Vital Sign - Last 12Hours Date Time Temp Pulse Resp B/P (MAP) Pulse Ox O2 Delivery O2 Flow Rate FiO2 02/08/18 13:00 62 02/08/18 12:00 96.4 20 152/86 (108) 94 Room Air Hospital Course Labs Laboratory Tests 02/08/18 02:20: White Blood Count 6.6, Red Blood Count 3.68L, Hemoglobin 11.6, Hematocrit 35, Mean Corpuscular Volume 95, Mean Corpuscular Hemoglobin 32, Mean Corpuscular Hemoglobin Concent 33, Red Cell Distribution Width 14.1, Platelet Count 179, Mean Platelet Volume 10.9H, Neutrophils (%) (Auto) 58, Lymphocytes (%) (Auto) 31 , Monocytes (%) (Auto) 8, Eosinophils (%) (Auto) 3, Basophils (%) (Auto) 0, Neutrophils # (Auto) 3.8, Lymphocytes # (Auto) 2.1, Monocytes # (Auto) 0.5, Eosinophils # (Auto) 0.2, Basophils # (Auto) 0.0, Prothrombin Time 12.9, INR Comment 1.0, Activated Partial Thromboplast Time 29, Sodium Level 138, Potassium Level 4.2, Chloride Level 106, Carbon Dioxide Level 22, Anion Gap 10, Blood Urea Nitrogen 17, Creatinine 1.37H, Estimat Glomerular Filtration Rate 40 , BUN/Creatinine Ratio 12, Glucose Level 106H, Calcium Level 9.6, Corrected Calcium 9.2, Magnesium Level 2.2, Total Bilirubin 0.4, Aspartate Amino Transf ( AST/SGOT) 18, Alanine Aminotransferase (ALT/SGPT) 25, Alkaline Phosphatase 73, Myoglobin 75.0, Troponin I < 0.30, C-Reactive Protein High Sensitivity 1.29H, Total Protein 7.5, Albumin 4.5 02/08/18 09:34: Myoglobin 83.5, Troponin I < 0.30 Discharge Condition at discharge stable Instructions to patient/family Please see electronic discharge instructions given to patient. Discharge Medications Reviewed and agree with Discharge Medication list on patient's Discharge Instruction sheet Clinical Quality Measures AMI/AHF: ASA po Prior to arrival: No DVT/VTE Risk/Contraindication: Risk Factor Score Per Nursin RFS Level Per Nursing on Admit: 2=Moderate Copy Copies To 1: [facility]/MARYBETH MORILLO DO Feb 08, 2018 15:55
[2018-02-09] MEDS ORDERED: amLODIPine 5 MG (NORVASC) TAB PO NR (09:46)
== END 2018-02-08 19:57 | disposition home or self-care (01) ==
LOC: EDUNIT# 02:05 → ER 02:08 → UNDOADMOB 03:31 → 4TH 03:31
PROVIDERS: ADMIT Family Medicine; ATTEND Family Medicine
DX: I25.10 Atherosclerotic heart disease of native coronary artery without angina pectoris (principal); I70.1 Atherosclerosis of renal artery; R07.89 Other chest pain; I71.4 Abdominal aortic aneurysm, without rupture; I12.9 Hypertensive chronic kidney disease with stage 1 through stage 4 chronic kidney disease, or unspecified chronic kidney disease; J44.9 Chronic obstructive pulmonary disease, unspecified; E11.40 Type 2 diabetes mellitus with diabetic neuropathy, unspecified; R32 Unspecified urinary incontinence; F41.9 Anxiety disorder, unspecified; N18.3 Chronic kidney disease, stage 3 (moderate); E78.5 Hyperlipidemia, unspecified; M54.9 Dorsalgia, unspecified; H54.40 Blindness, one eye, unspecified eye; Z87.891 Personal history of nicotine dependence; Z91.19 Patient's noncompliance with other medical treatment and regimen; Z79.899 Other long term (current) drug therapy
CPT/HCPCS: 36251; 36415; 71045; 75625; 78452; 80053; 83735; 83874; 84484; 85025; 85610; 85730; 86141; 93005; 93017; 93041; 93458

== ENCOUNTER 2018-04-11 20:53 | Emergency (ER) | payer BC ==
[~2018-04-11] VITALS: Ht 165.1 cm; Wt 130.2 kg
[~2018-04-11 20:53] MED LIST changes: +AMLO5TAB7 PO; +ASCO-262 PO; +ATOR10TA66 PO; +CALC-654 PO; +CIPR500T4 PO; +FLUT16SP22 NS; +GABA-486 PO; +HYDR12.56 PO; +LISI-552 PO; +METO200T48 PO; +MULT-10 PO; +MULT-35 PO
--- OUTSIDE RECORDS SUMMARY | 2018-04-11 21:00 | XMS REPORT ---
Author Author VIJI RICE Organization [facility] Address [address] [place] [address] Care Team Providers Care Associate Attorney Name Role Phone KING VIJI Unavailable PROBLEMS Type Condition ICD9-CM Code HFA14-MW Code Onset Dates Condition Status SNOMED Code Problem Abdominal aortic aneurysm (AAA) without rupture I71.4 Active 08964801 Problem Prediabetes R73.03 Active 407599150 Problem Seasonal allergic rhinitis, unspecified allergic rhinitis trigger J30.2 Active 239352902 Problem Chronic obstructive pulmonary disease, unspecified COPD type J44.9 Active 22696267 Problem Hepatic steatosis K76.0 Active 765660141 Problem Mixed hyperlipidemia E78.2 Active 746421050 Problem PVD (peripheral vascular disease) I73.9 Active 290306906 Problem Renal artery stenosis I70.1 Active 320598416 Problem Other chronic pain G89.29 Active 09188083 Problem Arthritis of knee M17.10 Active 902197811 Problem Dysphagia, unspecified R13.10 Active 48330808 Problem Chronic kidney disease, unspecified N18.9 Active 553683052 Problem Urinary, incontinence, stress female N39.3 Active 95999511 Problem Peripheral vascular disease I73.9 Active 227240487 Problem 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 909809292 Problem Essential hypertension I10 Active 05055079 Problem Cervicalgia M54.2 Active 1450024928991 Problem Gastroesophageal reflux disease without esophagitis K21.9 Active 205124885 Problem Anemia of chronic disease D63.8 Active 800902488 Problem Stenosis of right renal artery I70.1 Active [id number] ALLERGIES Substance Reaction Event Type Date Status T[place]turna Unknown Drug Allergy Mar, Active Niacin rash Drug Allergy Mar, Active Macrobid anaphylaxis Drug Allergy Mar, Active Iodine (IV contrast) Drug Allergy Mar, Active Ibuprofen (All NSAIDs) Drug Allergy Mar, Active Bactrim resp distress Drug Allergy Mar, Active ENCOUNTERS Encounter Location Date Diagnosis [place] [address] [place] [id number] [place] [address] 18579- 4804 Mar, BMI 45.0-49.9, adult Z68.42 ; Chronic urticaria L50.8 and Skin infection L08.9 [place] [id number] [place] [address] 78922- 6911 Mar, Dermatitis L30.9 and BMI 45.0-49.9, adult Z68.42 [place] [address] 42607- 9783 Feb, Cellulitis of right upper extremity L03.113 and BMI 45.0- 49.9, adult Z68.42 [place] [address] 93808- 8881 24 Feb, 2018 Cellulitis of right arm L03.113 and Status post cardiac catheterization Z98.890 [place] [address] 49574- 1628 Feb, [place] [address] 89595- 6662 Feb, Chronic obstructive pulmonary disease, unspecified COPD type J44.9 ; Essential hypertension I10 ; Encounter for immunization Z23 ; Mixed hyperlipidemia E78.2 and BMI 45.0-49.9, adult Z68.42 [place] [id number] [place] [address] 97915- 1293 Feb, Dysuria R30.0 ; Acute cystitis without hematuria N30.00 and BMI 45.0-49.9, adult Z68.42 [place] [address] 40340- 0672 Dec, [place] [id number] [place] [address] 71469- 2303 Dec, Essential hypertension I10 ; Chronic kidney disease, unspecified N18.9 ; Mixed hyperlipidemia E78.2 ; Tinea corporis B35.4 ; Right hip pain M25.551 and Acute pain of right knee M25.561 [place] [address] 88272- 4072 Dec, Herpes zoster without complication B02.9 ; Dandruff L21.0 ; Diarrhea, unspecified type R19.7 and BMI 45.0-49.9, adult Z68.42 [place] [address] 82227- 5847 September, Chronic kidney disease, unspecified N18.9 ; Essential hypertension I10 ; Mixed hyperlipidemia E78.2 and BMI 45.0-49.9, adult Z68.42 [place] [address] 12297- 1067 September, [place] [address] 98162- 2570 September, Essential hypertension I10 ; Chronic kidney disease, unspecified N18.9 ; Prediabetes R73.03 ; Low back pain M54.5 ; Other chronic pain G89.29 ; Arthritis of knee M17.10 ; Pure hyperglyceridemia E78.1 ; Anemia of chronic disease D63.8 and BMI 45.0-49.9, adult Z68.42 [place] [id number] [place] [address] 57769- 8064 Aug, [address] 29293- 5569 Jul, Abdominal aortic aneurysm (AAA) without rupture I71.4 ; PVD (peripheral vascular disease) I73.9 ; Renal artery stenosis I70.1 and Essential hypertension I10 [address] 89230- 1839 May, Essential hypertension I10 ; Pure hyperglyceridemia E78.1 ; Abdominal aortic aneurysm (AAA) without rupture I71.4 ; Chronic kidney disease, unspecified N18.9 ; Gastroesophageal reflux disease without esophagitis K21.9 ; 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 ; Stenosis of right renal artery I70.1 ; Anemia of chronic disease D63.8 and Prediabetes R73.03 [facility] [id number] [place] [address] 27023- 9469 May, Tinea corporis B35.4 and Viral URI J06.9 [place] [address] 63935- 1477 May, [facility] [address] 91298- 2180 Apr, [place] [address] 87248- 6026 Apr, Cervical radiculopathy M54.12 [facility] [address] 27296 -2484 Apr, Flank pain R10.9 and Acute pyelonephritis N10 [place] [address] 67170- 1395 Apr, [place] [address] 03085- 4653 Mar, [place] [address] 67303- 7113 Feb, Pain of right shoulder region M25.511 [place] [id number] [place] [address] 86776- 7142 Feb, History of glaucoma Z86.69 ; Vision changes H53.9 ; Abdominal aortic aneurysm (AAA) without rupture I71.4 ; Xerosis of skin L85.3 and Pain in right shoulder M25.511 [place] [address] 33309- 4444 Feb, [place] [address] 90254- 4414 13 Jan, 2017 Essential hypertension I10 ; Pure hyperglyceridemia E78.1 ; Chronic kidney disease, unspecified N18.9 ; Gastroesophageal reflux disease without esophagitis K21.9 ; 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 ; Stenosis of right renal artery I70.1 ; Anemia of chronic disease D63.8 ; Prediabetes R73.03 ; Pain of right shoulder region M25.511 and Homeless Z59.0 [place] [id number] [place] [address] 37595- 1461 Jan, Neck pain M54.2 and Seasonal allergic rhinitis, unspecified allergic rhinitis trigger J30.2 [place] [address] 97669- 9308 Dec, [place] [address] 35550- 7444 Dec, [place] [address] 19048- 6944 Dec, Blood glucose abnormal R73.09 ; Essential [...] pylori infection A04.8 and Prediabetes R73.03 [facility] [id number] [place] [address] 59190 -7702 Oct, Seasonal allergic rhinitis, unspecified allergic rhinitis trigger J30.2 [place] [address] 93459- 6779 September, Eustachian tube dysfunction, left H69.82 and Candidiasis of breast B37.89 [place] [address] 87686- 0889 Jul, Blood glucose abnormal R73.09 ; Essential hypertension I10 ; Pure hyperglyceridemia E78.1 ; Chronic kidney disease, unspecified N18.9 ; Gastroesophageal reflux disease without esophagitis K21.9 ; 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 ; Abdominal aortic aneurysm (AAA) without rupture I71.4 ; Stenosis of right renal artery I70.1 ; Anemia of chronic disease D63.8 and Acute non-recurrent maxillary sinusitis J01.[address] 21767- 6707 Jun, Acute non-recurrent maxillary sinusitis J01.00 ; Acute mucoid otitis media of left ear H65.112 ; Nausea R11.0 and Fever and chills R50.9 [place] [address] 38221- 6135 May, Acute right flank pain R10.[address] 24599- 5524 Apr, Acute nasopharyngitis J00 ; Pure hyperglyceridemia E78.1 and Chronic kidney disease, unspecified N18.[address] 86300- 8272 Apr, [address] 56195- 9364 Apr, Blood glucose abnormal R73.09 ; Essential hypertension I10 ; Pure hyperglyceridemia E78.1 ; Chronic kidney disease, unspecified N18.9 ; Gastroesophageal reflux disease without esophagitis K21.9 ; 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 ; Abdominal aortic aneurysm (AAA) without rupture I71.4 ; Stenosis of right renal artery I70.1 ; RUQ pain R10.11 and Anemia of chronic disease D63.8 [place] [id number] [place] [address] 89101- 3535 Mar, Blood glucose abnormal R73.[address] 42183- 8311 Mar, Cellulitis of right lower leg L03.115 [facility] [place] [id number] [place] [address] 52125 -6449 Feb, [address] 53388- 9237 Feb, Dysuria R30.0 and Upper respiratory tract infection, unspecified type J06.9 [place] [id number] [place] [address] 30418- 6958 Jan, [place] [id number] [place] [address] 89621- 3135 Jan, [place] [address] 21697- 1828 Dec, [address] 03808- 0846 Dec, Anemia of chronic disease D63.8 ; Essential hypertension I10 ; Pure hyperglyceridemia E78.1 ; Chronic kidney disease, unspecified N18.9 ; Gastroesophageal reflux disease without esophagitis K21.9 ; 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 and Pain in right knee M25.[address] 22398- 1688 Dec, Left shoulder strain, subsequent encounter S46.912D ; Urinary frequency R35.0 ; Lung nodule, solitary R91.1 ; Essential hypertension I10 and Acute cystitis without hematuria N30.00 [place] [id number] [place] [address] 67187- 1844 Nov, Left-sided chest wall pain R07.89 and Abnormal chest xray R93.8 [place] [id number] [place] [address] 20882- 1007 Nov, Pain of right lower extremity M79.604 ; Swelling of right lower extremity M79.89 ; Diarrhea, unspecified R19.7 ; Nausea with vomiting, unspecified R11.2 ; Left-sided chest wall pain R07.89 ; Chronic kidney disease, unspecified N18.9 ; Gastroesophageal reflux disease without esophagitis K21.9 and Other seasonal allergic rhinitis J30.2 [place] [id number] [place] [address] 86107- 2543 September, Essential hypertension I10 ; Chronic kidney disease, unspecified N18.9 ; Anemia of chronic disease D63.8 ; Pure hyperglyceridemia E78.1 ; Peripheral vascular disease I73.9 ; Abnormal glucose R73.09 ; 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 ; Gastroesophageal reflux disease without esophagitis K21.9 and Allergic rhinitis J30.[address] 26167- 1432 Jun, Low back pain M54.[address] 11477- 8661 Jun, [address] 44381- 4046 May, URI (upper respiratory infection) J06.[address] 77973- 5784 Apr, Essential hypertension I10 [address] 55332- 6874 10 Apr, 2015 Essential hypertension I10 ; Chronic kidney disease, unspecified N18.9 ; Anemia of chronic disease D63.8 ; Pure hyperglyceridemia E78.1 ; Peripheral vascular disease I73.9 ; Abnormal glucose R73.09 ; URI ( upper respiratory infection) J06.9 ; 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 ; Gastroesophageal reflux disease without esophagitis K21.9 and Cough R05 [place] [address] [place] [id number] 6304 Mar, Flank pain R10.9 and URI (upper respiratory infection) J06.[address] 47258- 8074 Mar, Right-sided low back pain without sciatica M54.5 and Hematuria, unspecified R31.9 [place] [address] 7776 Mar, Hypopigmentation L81.9 and Hyperpigmentation L81.[address] 67966- 4361 Mar, [address] 85514- 0263 Mar, Acute cystitis with hematuria N30.[address] 31362- 5607 Mar, [address] 15450- 9777 Feb, Furuncle L02.92 ; Hypopigmentation L81.9 ; Hyperpigmentation L81.9 ; Urinary frequency R35.0 ; Screening for malignant neoplasm of cervix Z12.4 ; Vaginal discharge N89.8 ; Urinary, incontinence, stress female N39.3 and Vaginal irritation N89.8 [place] [address] 6203 Jan, Muscle spasm 728.85 ; Unspecified peripheral vascular disease 443.9 ; Benign essential hypertension 401.1 ; Chronic renal insufficiency 585.9 ; Chronic constipation 564.00 ; GERD (gastroesophageal reflux disease) 530.81 ; Hyperlipidemia 272.4 and Chronic leg pain 729.5 [place] [address] [place] [address] 14548- 4938 15 Jan, 2015 Sinusitis 473.9 [place] [address] [place] [address] [id number] [place] [address] 24673- 8357 Dec, [place] [address] [place] [id number] [place] [address] 49662- 4929 Dec, Acute bronchitis 466.0 [place] [address] [id number] [place] [address] 92222- 7885 Dec, Acute bronchitis 466.0 [place] [address] [address] [id number] [place] [address] 01065- 3918 Dec, Unspecified episodic mood disorder 296.90 [place] [address] [address] [id number] [place] [address] 61390- 0077 Dec, Visit for suture removal V58.32 [place] [address] [address] [id number] [place] [address] 76448- 7075 Nov, Allergic rhinitis 477.9 and Onychomycosis 110.1 [place] [address] [id number] [place] [address] 04191- 9864 Oct, Muscle spasm 728.85 ; Benign essential hypertension 401.1 ; Chronic renal insufficiency 585.9 ; Chronic constipation 564.00 ; GERD ( gastroesophageal reflux disease) 530.81 and Hyperlipidemia 272.4 [place] [address] [id number] [place] [address] 42732- 5975 Oct, Otalgia of left ear 388.70 [place] [address] [place] [address] 23108- 7424 Oct, Unspecified episodic mood disorder 296.90 [place] [address] [place] [id number] [place] [address] 33629- 1233 September, Unspecified episodic mood disorder 296.90 [place] [address] [place] [address] 32066- 3426 September, Unspecified episodic mood disorder 296.90 [facility] [address] [id number] September, Urinary frequency 788.41 and Constipation 564.00 [facility] [address] [address]- 5624 Aug, [facility] [id number] [address]- 4348 Aug, [facility] [address] [address]- 8043 Jul, [facility] [address] [place] [address] 53823- 6017 Jul, [facility] [address] [address]- 3681 Jul, [facility] [address] [address]- 3756 Jul, [facility] [address] [address]- 9529 Jul, [facility] [address]- 6789 Jul, [facility] [address] [address]- 6181 Jul, [facility] [address] [address]- 3773 Jul, [facility] [address] [address]- 7906 Jul, [facility] [address] [address]- 7716 Jul, [facility] [address] [address]- 5466 Jun, [facility] [address] [address]- 6616 Jun, [facility] [place] [facility] [address] [id number] [place] [address]- 9405 May, [facility] [place] [facility] [address] [id number] [place] [address]- 0253 May, [facility] [place] [facility] [address] [id number] [place] [address]- 9892 May, [facility] [place] [facility] [address] [id number] [place] [address]- 3498 May, [facility] [place] [facility] [address] [id number] [place] [address]- 1873 May, [facility] [place] [facility] [address] [id number] [place] [address]- 1126 May, [facility] [place] [facility] [address] [id number] [place] [address]- 8276 May, [facility] [place] [facility] [address] [id number] [place] [address]- 6829 May, [facility] [place] [facility] [address] [id number] [place] [address]- 5702 May, [facility] [place] [facility] [address] [id number] [place] [address]- 3945 May, [facility] [place] [facility] [address] [id number] [place] [address]- 0321 May, [facility] [place] [facility] [address] [id number] [address]- 4718 May, [facility] [place] [facility] [address] [id number] [place] [address]- 6740 May, [facility] [place] [facility] [address] [id number] [place] [address]- 4375 Feb, [facility] [place] [facility] [address] [id number] [place] [address]- 9075 Feb, [facility] [place] [facility] [address] [id number], [place] [address]- 2237 20 Jan, 2013 [facility] [place] [facility] [address] [id number] [place] [address] 2545 20 Jan, 2013 [facility] [place] [facility] [address] [id number] [place] [address]- 7756 18 Jan, 2013 [facility] [place] [facility] [address] [id number] [place] [address] 2544 18 Jan, 2013 [facility] [place] [facility] [address] [id number] [place] [address]- 5372 12 Jan, 2013 [facility] [place] [facility] [address] [id number] [place] [address]- 1143 12 Jan, 2013 [facility] [place] [facility] [address] [id number] [place] [address]- 5229 12 Jan, 2014 [facility] [place] [facility] [address] [id number] [place] [address]- 0877 12 Jan, 2013 [facility] [place] [facility] [address] [id number] [place] [address]- 9108 11 Jan, 2014 [facility] [place] [facility] [address] [id number] [place] [address]- 6805 11 Jan, 2014 [facility] [place] [facility] [address] [id number] [place] [address]- 3573 10 Jan, 2014 [facility] [place] [facility] [address] [id number] [place] [address]- 2126 Jan, [facility] [place] [facility] [address] [id number] [place] [address]- 0999 Oct, [facility] [place] [facility] [address] [id number] [place] [address]- 8190 Oct, [facility] [place] [facility] [address] [id number] [place] [address]- 3376 Oct, [facility] [place] [facility] [address] [id number] [place] [address]- 0342 Oct, [facility] [place] [facility] [address] [id number] [place] [address]- 4274 Jun, [facility] [place] [facility] [address] [id number] [place] 7679 Jun, [facility] [place] [facility] [address] [id number] [place] [address] 2546 Jun, [facility] [place] [facility] [address] [id number] [place] [address] 2546 Jun, [facility] [place] [facility] [address] [id number] [place] 5063 Apr, [facility] [place] [facility] [address] [id number] [place] [address]- 7783 Apr, [facility] [place] [facility] [address] [id number] [place] [address]- 4821 Feb, [facility] [place] [facility] [address] [id number] [place] [address]- 6561 Feb, [facility] [place] [facility] [address] [id number] [place] [address]- 8948 Dec, [facility] [place] [facility] [address] [id number] [place] [address]- 6471 Dec, [facility] [place] [facility] [address] [id number] [place] [address]- 7840 Nov, [facility] [place] [facility] [address] [id number] [place] [address]- 6156 Nov, [facility] [place] [facility] [address] [id number] [place] [address]- 8649 Nov, [facility] [place] [facility] [address] [id number] [place] [address]- 4721 Oct, [facility] [place] [facility] [address] [id number] [place] [address]- 9233 September, [facility] [place] [facility] [address] [id number] [place] [address]- 4520 September, [facility] [address] [id number] [place] [address]- 0820 Aug, [facility] [address] [id number] [place] [address]- 7432 Aug, [facility] [address] [id number] [place] [address]- 7955 Aug, [facility] [place] [facility] [address] [id number] [place] [address]- 4719 Aug, [facility] [address] [id number] [place] [address]- 8465 Aug, [facility] [address] [id number] [place] [address]- 2879 Aug, [facility] [address] [id number] [place] [address]- 9728 Jul, [facility] [place] [facility] [address] [id number] [place] [address]- 6259 Jul, [facility] [address] [id number] [place] [address]- 2723 Jul, [facility] [place] [facility] [address] [id number] [place] [address]- 4352 Jul, [facility] [place] [facility] [address] [id number] [place] [address]- 5822 Jul, [facility] [place] [facility] [address] [id number], [place] [address]- 6124 Jul, [facility] [place] [facility] [address] [id number] [place] [address]- 6190 Jun, [facility] [place] [facility] [address] [id number] [place] [address]- 4659 Jun, [facility] [place] [facility] [address] [id number] [place] [address]- 6964 May, [facility] [place] [facility] [address] [id number] [place] [address]- 7218 May, [facility] [address] [id number] [place] [address]- 0767 Apr, [facility] [place] [facility] [address] [id number] [place] [address] Apr, [facility] [address] [id number] [place] [address] Apr, [facility] [place] [facility] [address] [id number] [place] [address] Apr, [facility] [id number] [place] [address], [place] [address] Apr, [facility] [place] [facility] [address] [id number] [place] [address] Mar, [facility] [place] [facility] [address] [id number] [place] [address] Mar, [facility] [address] [id number] [place] [address] Mar, [facility] [place] [facility] [address] [id number] [place] [address] Mar, [facility] [address] [facility] [id number] [place] [address] Mar, [facility] [place] [facility] [address] [id number] [place] [address] Mar, [facility] [place] [facility] [address] [id number] [place] [address] Mar, [facility] [place] [facility] [address] [id number] [place] [address] 1993 Feb, [facility] [place] [facility] [address] [id number] [place] [address] Feb, [facility] [place] [facility] [address] [id number] [place] [address] Feb, [facility] [place] [facility] [address] [id number] [place] [address] Feb, [facility] [place] [facility] [address] [id number] [place] [address] Dec, [facility] [place] [facility] [address] [id number] [place] [address] Nov, [facility] [place] [facility] [address] [id number] [place] [address] Nov, [facility] [place] [facility] [address] [id number] [place] [address] Oct, [facility] [place] [facility] [address] [id number] [place] [address] Oct, [facility] [place] [facility] [address] [id number] [place] [address] Oct, [facility] [place] [facility] [address] [id number] [place] [address] Oct, [facility] [place] [facility] [address] [id number] [place] [address] Oct, [facility] [place] [facility] [address] [id number] [place] [address] Oct, [facility] [place] [facility] [address] [id number] [place] [address] Oct, [facility] [place] [facility] [address] [id number], [place] [address] Aug, [facility] [place] [facility] [address] [id number] [place] [address] Jul, [facility] [place] [facility] [address] [id number] [place] [address] Jul, [facility] [place] [facility] [address] [id number], [place] [address] Jul, [facility] [place] [facility] [address] [id number], [place] [address] Jul, [facility] [address] [id number] [place] [address] Jul, [facility] [place] [facility] [address] [id number] [place] [address] Jul, [facility] [address] [facility] [id number] [place] [address] Jul, [facility] [place] [facility] [address] [id number] [place] [address] Jun, [facility] [address] [id number] [place] [address] May, [facility] [place] [facility] [address] [facility] [id number] [place] [address] May, [facility] [address] [facility] [id number] [place] [address] May, [facility] [address] [facility] [id number] [place] [address] Apr, [facility] [address] [facility] [id number] [place] [address] Apr, [facility] [place] [facility] [address] [facility] [id number] [place] [address] Apr, [facility] [address] [facility] [id number] [place] [address] Apr, [facility] [place] [facility] [address] [facility] [id number] [place] [address] Apr, [facility] [place] [facility] [address] [id number] [place] [address] Apr, [facility] [place] [facility] [address] [facility] [id number] [place] [address] Mar, [facility] [place] [facility] [address] [facility] [id number] [place] [address] Mar, [facility] [place] [facility] [address] [id number] [place] [address] Mar, [facility] [place] [facility] [address] [id number] [place] [address] Mar, [facility] [place] [facility] [address] [id number] [place] [address] Mar, [facility] [place] [facility] [address] [id number] [place] [address] Mar, [facility] [place] [facility] [address] [id number] [place] [address] Mar, [facility] [place] [facility] [address] [id number] [place] [address] Dec, [facility] [place] [facility] [address] [id number] [place] [address] Aug, [facility] [place] [facility] [address] [id number] [place] [address] Apr, [facility] [place] [facility] [address] [id number] [place] [address] Mar, [facility] [place] [facility] [address] [id number] [place] [address] Mar, [facility] [place] [facility] [address] [id number] [place] [address] Mar, [facility] [place] [facility] [address] [id number] [place] [address] Mar, [facility] [place] [facility] [address] [id number] [place] [address] September, [facility] [place] [facility] [address] [id number] [place] [address] Mar, [facility] [place] [facility] [address] [id number] [place] [address] Feb, [facility] [place] [facility] [address] [id number] [place] [address] Oct, [facility] [address] [facility] [id number], [place] [address] September, [facility] [address] [facility] [id number], [place] [address] Apr, [facility] [address] [facility] [id number], [place] [address] Mar, IMMUNIZATIONS No Known Immunizations SOCIAL HISTORY Never Assessed REASON FOR VISIT arm infection (right) Lorraine Layton MA PLAN OF CARE Activity Details Follow Up if not improving with PCP or reg follow up Reason:itching VITAL SIGNS Height 65 in 2018-04-05 Weight 288.4 lbs 2018-04-05 Temperature 97.2 degrees Fahrenheit 2018-04-05 Heart Rate 81 bpm 2018-04-05 Respiratory Rate 20 2018-04-05 BMI 47.99 kg/m2 2018-04-05 Blood pressure systolic 142 mmHg 2018-04-05 Blood pressure diastolic 70 mmHg 2018-04-05 MEDICATIONS Medication Instructions Dosage Frequency Start Date End Date Duration Status Amlodipine Besylate 5 mg Orally Once a day 2 tablet 24h September, Active Mupirocin Calcium 2 % Externally Three times a day 1 application to affected area 8h Mar, 10 day(s) Active Atorvastatin Calcium 10 mg Orally Once a day 1 tablet 24h 30 Active Lisinopril 20 mg Orally Once a day 1 tablet 24h Active Proventil HFA 90 mcg/actuation 2 puffs by Inhalation route 4 times per day PRN May, Active Zofran 8 MG Orally every 8 hours, PRN 1 tablet Jun, 3 days Active Triamcinolone Acetonide 0.1 % Externally Twice a day 1 application to affected area 12h 7 Active Calcium 600 MG Active Fluticasone Propionate 50 MCG/ACT Nasally Once a day 1 spray in each nostril 24h 30 days Active HydrOXYzine HCl 25 MG Orally every 8 hrs 1 tablet as needed 8h Mar, 30 day(s) Active Symbicort 160-4.5 MCG/ACT Inhalation Twice a day 1 puffs 12h 11 May, 2015 Jun, 30 days Active Stress Tab NF - as directed Active Omeprazole 40 mg Orally Once a day TAKE ONE (1) CAPSULE BY MOUTH ONCE DAILY 24h 30 days Active Hydrochlorothiazide 12.5 MG Orally Once a day 1 tablet in the morning 24h September, Active Toprol XL 200 mg Orally Once a day 1 tablets 24h Active Vitamin C 500 mg 1 tablet by Oral route 1 time per day May, Active Multivitamin Active Gabapentin 100 mg Orally 2 times a day 1 capsule 12h 30 days Active RESULTS No Results PROCEDURES No Known procedures INSTRUCTIONS MEDICATIONS ADMINISTERED No Known Medications MEDICAL (GENERAL) HISTORY Type Description Date Medical History coronary artery disease (seeangelica Smith) Medical History hearing loss L ear [...] Surgical History R renal artery stent 2007 Surgical History heart cath 02/2018 Hospitalization History surgeries Hospitalization History chest pain/ abnormal stress test/ heart cath 2017
--- OUTSIDE RECORDS SUMMARY | 2018-04-11 21:00 | XMS REPORT ---
Author Author VIJI RICE Organization [facility] Address [address] [place] [address] Care Team Providers Care Soap Worker Name Role Phone KING VIJI Unavailable PROBLEMS Type Condition ICD9-CM Code ZFO95-SC Code Onset Dates Condition Status SNOMED Code Problem Abdominal aortic aneurysm (AAA) without rupture I71.4 Active 68253888 Problem Prediabetes R73.03 Active 108867196 Problem Seasonal allergic rhinitis, unspecified allergic rhinitis trigger J30.2 Active 173229491 Problem Chronic obstructive pulmonary disease, unspecified COPD type J44.9 Active 47641668 Problem Hepatic steatosis K76.0 Active 359911406 Problem Mixed hyperlipidemia E78.2 Active 008006505 Problem PVD (peripheral vascular disease) I73.9 Active 683282376 Problem Renal artery stenosis I70.1 Active 382485389 Problem Other chronic pain G89.29 Active 43553421 Problem Arthritis of knee M17.10 Active 755762214 Problem Dysphagia, unspecified R13.10 Active 07345974 Problem Chronic kidney disease, unspecified N18.9 Active 984854277 Problem Urinary, incontinence, stress female N39.3 Active 02082508 Problem Peripheral vascular disease I73.9 Active 764806376 Problem 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 037736648 Problem Essential hypertension I10 Active 43839151 Problem Cervicalgia M54.2 Active 7012555778634 Problem Gastroesophageal reflux disease without esophagitis K21.9 Active 811878484 Problem Anemia of chronic disease D63.8 Active 422638046 Problem Stenosis of right renal artery I70.1 Active [id number] ALLERGIES Substance Reaction Event Type Date Status [place] Unknown Drug Allergy Mar, Active Niacin rash Drug Allergy Mar, Active Macrobid anaphylaxis Drug Allergy Mar, Active Iodine (IV contrast) Drug Allergy Mar, Active Ibuprofen (All NSAIDs) Drug Allergy Mar, Active Bactrim resp distress Drug Allergy Mar, Active ENCOUNTERS Encounter Location Date Diagnosis [place] [id number] [place] [address] 30068- 7798 Mar, [place] [address] 44850- 0396 Mar, Dermatitis L30.9 and BMI 45.0-49.9, adult Z68.42 [place] [address] 70665- 4294 Feb, Cellulitis of right upper extremity L03.113 and BMI 45.0- 49.9, adult Z68.42 [place] [address] 98861- 5043 24 Feb, 2018 Cellulitis of right arm L03.113 and Status post cardiac catheterization Z98.890 [place] [address] 48114- 0779 Feb, [place] [address] 64867- 4259 Feb, Chronic obstructive pulmonary disease, unspecified COPD type J44.9 ; Essential hypertension I10 ; Encounter for immunization Z23 ; Mixed hyperlipidemia E78.2 and BMI 45.0-49.9, adult Z68.42 [place] [address] 74092- 7073 03 Feb, 2018 Dysuria R30.0 ; Acute cystitis without hematuria N30.00 and BMI 45.0-49.9, adult Z68.42 [place] [id number] [place] [address] 23860- 6304 Dec, [place] [address] 82995- 5392 Dec, Essential hypertension I10 ; Chronic kidney disease, unspecified N18.9 ; Mixed hyperlipidemia E78.2 ; Tinea corporis B35.4 ; Right hip pain M25.551 and Acute pain of right knee M25.561 [place] [address] [place] [address] 7924 Dec, Herpes zoster without complication B02.9 ; Dandruff L21.0 ; Diarrhea, unspecified type R19.7 and BMI 45.0-49.9, adult Z68.42 [place] [id number] [place] [address] 66714- 6626 September, Chronic kidney disease, unspecified N18.9 ; Essential hypertension I10 ; Mixed hyperlipidemia E78.2 and BMI 45.0-49.9, adult Z68.42 [place] [id number] [place] [address] 83256- 5435 September, [place] [id number] [place] [address] 02102- 0045 September, Essential hypertension I10 ; Chronic kidney disease, unspecified N18.9 ; Prediabetes R73.03 ; Low back pain M54.5 ; Other chronic pain G89.29 ; Arthritis of knee M17.10 ; Pure hyperglyceridemia E78.1 ; Anemia of chronic disease D63.8 and BMI 45.0-49.9, adult Z68.42 [place] [id number] [place] [address] 76484- 6743 Aug, [place] [id number] [place] [address] 14096- 5484 Jul, Abdominal aortic aneurysm (AAA) without rupture I71.4 ; PVD (peripheral vascular disease) I73.9 ; Renal artery stenosis I70.1 and Essential hypertension I10 [place] [id number] [place] [address] 10877- 4475 May, Essential hypertension I10 ; Pure hyperglyceridemia E78.1 ; Abdominal aortic aneurysm (AAA) without rupture I71.4 ; Chronic kidney disease, unspecified N18.9 ; Gastroesophageal reflux disease without esophagitis K21.9 ; 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 [address] 85527 -3294 Apr, Flank pain R10.9 and Acute pyelonephritis N10 [place] [address] 86872- 3838 Apr, [place] [address] 67443- 6800 Mar, [place] [address] 36725- 6675 Feb, Pain of right shoulder region M25.511 [place] [address] 77892- 9320 25 Feb, 2017 History of glaucoma Z86.69 ; Vision changes H53.9 ; Abdominal aortic aneurysm (AAA) without rupture I71.4 ; Xerosis of skin L85.3 and Pain in right shoulder M25.511 [place] [id number] [place] [address] 74272- 3410 Feb, [place] [address] 08716- 7400 Jan, Essential hypertension I10 ; Pure hyperglyceridemia E78.1 ; Chronic kidney disease, unspecified N18.9 ; Gastroesophageal reflux disease without esophagitis K21.9 ; 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 ; Stenosis of right renal artery I70.1 ; Anemia of chronic disease D63.8 ; Prediabetes R73.03 ; Pain of right shoulder region M25.511 and Homeless Z59.0 [place] [id number] [place] [address] 70051- 0714 Jan, Neck pain M54.2 and Seasonal allergic rhinitis, unspecified allergic rhinitis trigger J30.2 [place] [id number] [place] [address] 74349- 8125 Dec, [place] [id number] [place] [address] 54996- 3694 Dec, [place] [id number] [place] [address] 21871- 7689 Dec, Blood glucose abnormal R73.09 ; Essential [...] H. pylori infection A04.8 and Prediabetes R73.03 [facility] [id number] [place] [address] 52721 -8017 Oct, Seasonal allergic rhinitis, unspecified allergic rhinitis trigger J30.2 [place] [id number] [place] [address] 02291- 6207 September, Eustachian tube dysfunction, left H69.82 and Candidiasis of breast B37.89 [place] [address] [place] [address] 13341- 9471 Jul, Blood glucose abnormal R73.09 ; Essential hypertension I10 ; Pure hyperglyceridemia E78.1 ; Chronic kidney disease, unspecified N18.9 ; Gastroesophageal reflux disease without esophagitis K21.9 ; 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 ; Abdominal aortic aneurysm (AAA) without rupture I71.4 ; Stenosis of right renal artery I70.1 ; Anemia of chronic disease D63.8 and Acute non-recurrent maxillary sinusitis J01.00 [place] [id number] [place] [address] 27056- 3373 Jun, Acute non-recurrent maxillary sinusitis J01.00 ; Acute mucoid otitis media of left ear H65.112 ; Nausea R11.0 and Fever and chills R50.9 [place] [id number] [place] [address] 28586- 5990 May, Acute right flank pain R10.9 [place] [id number] [place] [address] 27314- 5595 Apr, Acute nasopharyngitis J00 ; Pure hyperglyceridemia E78.1 and Chronic kidney disease, unspecified N18.9 [place] [id number] [place] [address] 53205- 1518 Apr, [address] 20766- 3589 Apr, Blood glucose abnormal R73.09 ; Essential hypertension I10 ; Pure hyperglyceridemia E78.1 ; Chronic kidney disease, unspecified N18.9 ; Gastroesophageal reflux disease without esophagitis K21.9 ; 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 ; Abdominal aortic aneurysm (AAA) without rupture I71.4 ; Stenosis of right renal artery I70.1 ; RUQ pain R10.11 and Anemia of chronic disease D63.8 [place] [id number] [place] [address] 07815- 0543 Mar, Blood glucose abnormal R73.09 [place] [id number] [place] [address] 14013- 8580 Mar, Cellulitis of right lower leg L03.115 [facility] WALK [facility] [place] [id number] [place] [address] 46947 -4922 Feb, [place] [id number] [place] [address] 95770- 5710 Feb, Dysuria R30.0 and Upper respiratory tract infection, unspecified type J06.9 [place] [address] [address]- 2556 Jan, [place] [id number] [place] [address] 91609- 3859 Jan, [place] [address] [address]- 0154 Dec, [place] [id number] [place] [address] 98862- 8369 Dec, Anemia of chronic disease D63.8 ; Essential hypertension I10 ; Pure hyperglyceridemia E78.1 ; Chronic kidney disease, unspecified N18.9 ; Gastroesophageal reflux disease without esophagitis K21.9 ; 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 and Pain in right knee M25.[address] [place] [address] 75874- 3567 Dec, Left shoulder strain, subsequent encounter S46.912D ; Urinary frequency R35.0 ; Lung nodule, solitary R91.1 ; Essential hypertension I10 and Acute cystitis without hematuria N30.[address] [place] [address] 13674- 9826 Nov, Left-sided chest wall pain R07.89 and Abnormal chest xray R93.8 [address] [place] [address] 66994- 6281 Nov, Pain of right lower extremity M79.604 ; Swelling of right lower extremity M79.89 ; Diarrhea, unspecified R19.7 ; Nausea with vomiting, unspecified R11.2 ; Left-sided chest wall pain R07.89 ; Chronic kidney disease, unspecified N18.9 ; Gastroesophageal reflux disease without esophagitis K21.9 and Other seasonal allergic rhinitis J30.[address] [place] [address] 68385- 8998 September, Essential hypertension I10 ; Chronic kidney disease, unspecified N18.9 ; Anemia of chronic disease D63.8 ; Pure hyperglyceridemia E78.1 ; Peripheral vascular disease I73.9 ; Abnormal glucose R73.09 ; 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 ; Gastroesophageal reflux disease without esophagitis K21.9 ; Allergic rhinitis J30.9 and Rash R21 [place] [address] 66099- 5039 Aug, Abdominal pain R10.9 and Constipation K59.[address] 17617- 2624 Jul, Injury of toe on right foot S99.921A [place] [address] 15895- 6900 Jul, [address] 10204- 0823 Jul, Essential hypertension I10 ; Chronic kidney disease, unspecified N18.9 ; Anemia of chronic disease D63.8 ; Pure hyperglyceridemia E78.1 ; Peripheral vascular disease I73.9 ; Abnormal glucose R73.09 ; 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 ; Gastroesophageal reflux disease without esophagitis K21.9 and Allergic rhinitis J30.9 [place] [address] 76994- 0369 Jun, Low back pain M54.5 [place] [address] 42509- 4274 Jun, [place] [id number] [place] [address] 48202- 0681 May, URI (upper respiratory infection) J06.9 [place] [id number] [place] [address] 29721- 9115 Apr, Essential hypertension I10 [address] 58157- 3133 Apr, Essential hypertension I10 ; Chronic kidney disease, unspecified N18.9 ; Anemia of chronic disease D63.8 ; Pure hyperglyceridemia E78.1 ; Peripheral vascular disease I73.9 ; Abnormal glucose R73.09 ; URI ( upper respiratory infection) J06.9 ; 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 ; Gastroesophageal reflux disease without esophagitis K21.9 and Cough R05 [place] [address] 56611- 4964 Mar, Flank pain R10.9 and URI (upper respiratory infection) J06.9 [place] [address] 96025- 8509 Mar, Right-sided low back pain without sciatica M54.5 and Hematuria, unspecified R31.9 [place] [address] 34639- 8298 Mar, Hypopigmentation L81.9 and Hyperpigmentation L81.9 [place] [address] 74914- 9534 Mar, [address] 85037- 9629 Mar, Acute cystitis with hematuria N30.01 [place] [address] 11889- 4352 Mar, [place] [address] 22444- 6072 Feb, Furuncle L02.92 ; Hypopigmentation L81.9 ; Hyperpigmentation L81.9 ; Urinary frequency R35.0 ; Screening for malignant neoplasm of cervix Z12.4 ; Vaginal discharge N89.8 ; Urinary, incontinence, stress female N39.3 and Vaginal irritation N89.8 [place] [address] 42498- 2797 Jan, Muscle spasm 728.85 ; Unspecified peripheral vascular disease 443.9 ; Benign essential hypertension 401.1 ; Chronic renal insufficiency 585.9 ; Chronic constipation 564.00 ; GERD (gastroesophageal reflux disease) 530.81 ; Hyperlipidemia 272.4 and Chronic leg pain 729.5 [place] [address] 57982- 1361 Jan, Sinusitis 473.9 [place] [address] [address]- 5943 Dec, [place] [id number] [place] [address] 919377- 0496 Dec, Acute bronchitis 466.0 [place] [id number] [place] [address] 94346- 2134 Dec, Acute bronchitis 466.0 [place] [id number] [place] [address] 20585- 6863 Dec, Unspecified episodic mood disorder 296.90 [place] [address] 92023- 1719 Dec, Visit for suture removal V58.32 [place] [id number] [place] [address] 01003- 9579 Nov, Allergic rhinitis 477.9 and Onychomycosis 110.1 [place] [id number] [place] [address] 73181- 0364 Oct, Muscle spasm 728.85 ; Benign essential hypertension 401.1 ; Chronic renal insufficiency 585.9 ; Chronic constipation 564.00 ; GERD ( gastroesophageal reflux disease) 530.81 and Hyperlipidemia 272.4 [place] [address] [place] [address] 98159- 4651 Oct, Otalgia of left ear 388.70 [place] [address] [place] [address] 01837- 0694 Oct, Unspecified episodic mood disorder 296.90 [place] [id number] [place] [address] 74311- 7863 September, Unspecified episodic mood disorder 296.90 [place] [id number] [place] [address] 00696- 1552 September, Unspecified episodic mood disorder 296.90 [facility] [id number] [place] [address] [id number] September, Urinary frequency 788.41 and Constipation 564.00 [facility] [address] [address]- 4166 14 Aug, 2014 [facility] [id number] [address]- 2546 Aug, [facility] [id number] [place] [address] 35129- 1886 Jul, [facility] [id number] [place] [address] 78296- 2546 Jul, [facility] [id number] [place] [address], [place] [address]- 3226 Jul, [facility] [id number] [place] [address] 65290- 8666 Jul, [facility] [id number] [place] [address] 07255- 6265 Jul, [facility] [address], [place] [address]- 0823 Jul, [facility] [address] [place] [address], [place] [address]- 0146 Jul, [facility] [address], [place] [address]- 9886 Jul, [facility] [address], [place] [address]- 2546 Jul, [facility] [address], [place] [address]- 2546 Jul, [facility] [address] [address]- 4206 Jun, [facility] [address], [place] [address]- 2546 Jun, [facility] [address] 7148 May, [facility] [place] [facility] [address] [id number] [place] [address]- 9331 May, [facility] [place] [facility] [address] [id number] [place] [address]- 2039 May, [facility] [place] [facility] [address] [id number] [place] [address]- 7749 May, [facility] [place] [facility] [address] [id number] [place] [address]- 3532 May, [facility] [place] [facility] [address] [id number] [place] [address]- 0732 May, [facility] [place] [facility] [address] [id number] [place] [address]- 1439 May, [facility] [place] [facility] [address] [id number] [place] [address]- 4261 May, [facility] [place] [facility] [address] [id number] [place] [address]- 7967 May, [facility] [place] [facility] [address] [id number] [place] [address]- 5794 May, [facility] [place] [facility] [address] [id number] [address]- 5161 May, [facility] [place] [facility] [address] [id number], [place] [address]- 8366 May, [facility] [place] [facility] [address] [id number], [place] [address]- 5348 May, [facility] [place] [facility] [address] [id number] [place] [address]- 8299 Feb, [facility] [place] [facility] [address] [id number] [place] [address]- 2846 Feb, [facility] [place] [facility] [address] [id number], [place] [address]- 8557 Jan, [facility] [place] [facility] [address] [id number], [place] [address]- 4729 20 Jan, 2013 [facility] [place] [facility] [address] [id number] [place] [address]- 5061 18 Jan, 2013 [facility] [place] [facility] [address] [id number] [place] [address]- 7821 18 Jan, 2013 [facility] [place] [facility] [address] [id number] [place] [address]- 4074 12 Jan, 2013 [facility] [place] [facility] [address] [id number] [place] [address]- 2969 12 Jan, 2013 [facility] [place] [facility] [address] [id number] [place] [address]- 7672 12 Jan, 2013 [facility] [place] [facility] [address] [id number] [place] [address]- 7770 12 Jan, 2013 [facility] [place] [facility] [address] [id number] [place] [address]- 2697 11 Jan, 2014 [facility] [place] [facility] [address] [id number] [place] [address]- 4056 11 Jan, 2014 [facility] [place] [facility] [address] [id number] [place] [address]- 5454 10 Jan, 2014 [facility] [place] [facility] [address] [id number] [place] [address]- 0913 10 Jan, 2014 [facility] [place] [facility] [address] [id number] [place] [address]- 8542 Oct, [facility] [place] [facility] [address] [id number], [place] [address]- 8259 Oct, [facility] [place] [facility] [address] [id number] [place] [address]- 6080 Oct, [facility] [place] [facility] [address] [id number] [place] [address]- 2428 Oct, [facility] [place] [facility] [address] [id number] [place] [address]- 9685 Jun, [facility] [place] [facility] [address] [id number] [place] [address]- 5984 Jun, [facility] [place] [facility] [address] [id number] [place] [address]- 9703 Jun, [facility] [place] [facility] [address] [id number] [place] [address]- 8158 Jun, [facility] [place] [facility] [address] [id number] [place] [address]- 8631 Apr, [facility] [place] [facility] [address] [id number] [place] [address]- 1751 Apr, [facility] [place] [facility] [address] [id number] [place] [address]- 2092 Feb, [facility] [place] [facility] [address] [id number] [place] [address]- 2970 Feb, [facility] [place] [facility] [address] [id number] [place] [address]- 5369 Dec, [facility] [place] [facility] [address] [id number] [place] [address]- 9430 Dec, [facility] [place] [facility] [address] [id number] [place] [address]- 1180 Nov, [facility] [place] [facility] [address] [id number] [place] [address]- 6906 Nov, [facility] [place] [facility] [address] [id number] [place] [address]- 8897 Nov, [facility] [place] [facility] [address] [id number] [place] [address]- 1593 Oct, [facility] [place] [facility] [address] [id number] [place] [address]- 3014 September, [facility] [place] [facility] [address] [id number] [place] [address]- 3094 September, [facility] [place] [facility] [address] [id number] [place] [address]- 0434 Aug, [facility] [address] [id number] [place] 9785 Aug, [facility] [address] [id number] [place] [address]- 8926 Aug, [facility] [address] [id number] [place] [address]- 6940 Aug, [facility] [place] [facility] [address] [id number] [place] [address]- 3094 Aug, [facility] [address] [id number] [place] 9223 Aug, [facility] [address] [id number] [place] [address]- 3735 Jul, [facility] [address] [id number] [place] [address]- 9313 Jul, [facility] [address] [id number] [place] [address]- 5281 Jul, [facility] [address] [id number] [place] [address]- 9103 Jul, [facility] [place] [facility] [address] [id number] [place] [address] Jul, [facility] [address] [id number] [place] [address] Jul, [facility] [place] [facility] [address] [id number] [place] [address] Jun, [facility] [place] [facility] [address] [id number] [place] [address] Jun, [facility] [place] [facility] [address] [id number] [place] [address] May, [facility] [place] [facility] [address] [id number] [place] [address] May, [facility] [place] [facility] [address] [id number] [place] [address] Apr, [facility] [place] [facility] [address] [id number] [place] [address] Apr, [facility] [place] [facility] [address] [id number] [place] [address] Apr, [facility] [place] [facility] [address] [id number] [place] [address] Apr, [facility] [place] [facility] [address] [id number] [place] [address] Apr, [facility] [place] [facility] [address] [id number] [place] [address] Mar, [facility] [place] [facility] [address] [id number] [place] [address] Mar, [facility] [place] [facility] [address] [id number] [place] [address] Mar, [facility] [place] [facility] [address] [id number] [place] [address] Mar, [facility] [place] [facility] [address] [id number] [place] [address] Mar, [facility] [place] [facility] [address] [id number] [place] [address] Mar, [facility] [place] [facility] [address] [id number] [place] [address] Mar, [facility] [place] [facility] [address] [id number] [place] [address] Feb, [facility] [place] [facility] [address] [id number] [place] [address] Feb, [facility] [place] [facility] [address] [id number] [place] [address] Feb, [facility] [place] [facility] [address] [id number] [place] [address] Feb, [facility] [place] [facility] [address] [id number] [place] [address]- [address] Dec, [facility] [place] [facility] [address] [id number] [place] [address] Nov, [facility] [place] [facility] [address] [id number] [place] [address] Nov, [facility] [place] [facility] [address] [id number] [place] [address] Oct, [facility] [place] [facility] [address] [id number] [place] [address] Oct, [facility] [place] [facility] [address] [id number] [place] [address] Oct, [facility] [place] [facility] [address] [id number] [place] [address] Oct, [facility] [place] [facility] [address] [id number] [place] [address] Oct, [facility] [place] [facility] [address] [id number] [place] [address] Oct, [facility] [place] [facility] [address] [id number] [place] [address] Oct, [facility] [place] [facility] [address] [id number] [place] [address] Aug, [facility] [place] [facility] [address] [id number] [place] [address] Jul, [facility] [place] [facility] [address] [id number] [place] [address] Jul, [facility] [place] [facility] [address] [id number] [place] [address] 15 Jul, 2011 [facility] [place] [facility] [address] [id number] [place] [address] Jul, [facility] [place] [facility] [address] [id number] [place] [address] 07 Jul, 2011 [facility] [address] [id number] [place] [address] Jul, [facility] [place] [facility] [address] [id number] [place] [address] Jul, [facility] [place] [facility] [address] [id number] [place] [address] Jun, [facility] [place] [facility] [address] [id number] [place] [address] May, [facility] [place] [facility] [address] [id number] [place] [address] May, [facility] [place] [facility] [address] [id number] [place] [address] May, [facility] [address] [id number] [place] [address] Apr, [facility] [place] [facility] [address] [id number] [place] [address] Apr, [facility] [place] [facility] [address] [id number] [place] [address] 16 Apr, 2011 [facility] [place] [facility] [address] [id number] [place] [address] 15 Apr, 2011 [facility] [place] [facility] [address] [id number] [place] [address] Apr, [facility] [place] [facility] [address] [id number] [place] [address] 05 Apr, 2011 [facility] [place] [facility] [address] [id number] [place] [address] Mar, [facility] [place] [facility] [address] [id number] [place] [address] Mar, [facility] [place] [facility] [address] [id number] [place] [address] Mar, [facility] [place] [facility] [address] [id number] [place] [address] Mar, [facility] [place] [facility] [address] [id number] [place] [address] Mar, [facility] [place] [facility] [address] [id number] [place] [address] 1994 Mar, [facility] [place] [facility] [address] [id number] [place] [address] Mar, [facility] [place] [facility] [address] [id number] [place] [address] Dec, [facility] [place] [facility] [address] [id number] [place] [address] Aug, [facility] [place] [facility] [address] [id number] [place] [address] Apr, [facility] [place] [facility] [address] [id number] [place] [address] Mar, [facility] [place] [facility] [address] [id number] [place] [address] Mar, [facility] [place] [facility] [address] [id number] [place] [address] Mar, [facility] [place] [facility] [address] [id number] [place] [address] Mar, [facility] [place] [facility] [address] [id number] [place] [address] September, [facility] [place] [facility] [address] [id number] [place] [address] Mar, [facility] [place] [facility] [address] [id number] [place] [address] Feb, [facility] [place] [facility] [address] [id number] [place] [address] Oct, [facility] [place] [facility] [address] [id number] [place] [address] September, [facility] [address] [id number] [place] [address] Apr, [facility] [address] [id number] [address] Mar, IMMUNIZATIONS No Known Immunizations SOCIAL HISTORY Never Assessed REASON FOR VISIT rash on arm isn't getting any better and is on her leg also- ZACHARIAH Martines PLAN OF CARE Activity Details Follow Up if not improving with PCP or reg follow up Reason:rash VITAL SIGNS Height 65 in 2018-03-21 Weight 288.5 lbs 2018-03-21 Temperature 97.4 degrees Fahrenheit 2018-03-21 Heart Rate 70 bpm 2018-03-21 Respiratory Rate 20 2018-03-21 BMI 48.00 kg/m2 2018-03-21 Blood pressure systolic 130 mmHg 2018-03-21 Blood pressure diastolic 66 mmHg 2018-03-21 MEDICATIONS Medication Instructions Dosage Frequency Start Date End Date Duration Status Omeprazole 40 mg Orally Once a day TAKE ONE (1) CAPSULE BY MOUTH ONCE DAILY 24h 30 days Active Amlodipine Besylate 5 mg Orally Once a day 2 tablet 24h September, Active Vitamin C 500 mg 1 tablet by Oral route 1 time per day May, Active Gabapentin 100 mg Orally 2 times a day 1 capsule 12h 30 days Active Stress Tab NF - as directed Active Atorvastatin Calcium 10 mg Orally Once a day 1 tablet 24h 30 Active Toprol XL 200 mg Orally Once a day 1 tablets 24h Active Lisinopril 20 mg Orally Once a day 1 tablet 24h Active Multivitamin Active Zofran 8 MG Orally every 8 hours, PRN 1 tablet Jun, 3 days Active Symbicort 160-4.5 MCG/ACT Inhalation Twice a day 1 puffs 12h 11 May, 2015 Jun, 30 days Active Calcium 600 MG Active Triamcinolone Acetonide 0.1 % Externally Twice a day 1 application to affected area 12h 7 Active Hydrochlorothiazide 12.5 MG Orally Once a day 1 tablet in the morning 24h September, Active Fluticasone Propionate 50 MCG/ACT Nasally Once a day 1 spray in each nostril 24h 30 days Active Proventil HFA 90 mcg/actuation 2 puffs by Inhalation route 4 times per day PRN May, Active RESULTS No Results PROCEDURES No Known [...]
--- OUTSIDE RECORDS SUMMARY | 2018-04-11 21:01 | XMS REPORT ---
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 Name Role Phone MORE LOPEZ Unavailable PROBLEMS Type Condition ICD9-CM Code ZAD71-CF Code Onset Dates Condition Status SNOMED Code Problem Abdominal aortic aneurysm (AAA) without rupture I71.4 Active 54758627 Problem Prediabetes R73.03 Active 733412386 Problem Seasonal allergic rhinitis, unspecified allergic rhinitis trigger J30.2 Active 216278807 Problem Chronic obstructive pulmonary disease, unspecified COPD type J44.9 Active 94057680 Problem Hepatic steatosis K76.0 Active 261425775 Problem Mixed hyperlipidemia E78.2 Active 806922169 Problem PVD (peripheral vascular disease) I73.9 Active 843017083 Problem Renal artery stenosis I70.1 Active 107348586 Problem Other chronic pain G89.29 Active 66838226 Problem Arthritis of knee M17.10 Active 975858241 Problem Dysphagia, unspecified R13.10 Active 38479998 Problem Chronic kidney disease, unspecified N18.9 Active 602100582 Problem Urinary, incontinence, stress female N39.3 Active 51723548 Problem Peripheral vascular disease I73.9 Active 663918723 Problem 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 474084806 Problem Essential hypertension I10 Active 45024768 Problem Cervicalgia M54.2 Active 6772098697162 Problem Gastroesophageal reflux disease without esophagitis K21.9 Active 024965937 Problem Anemia of chronic disease D63.8 Active 719387076 Problem Stenosis of right renal artery I70.1 Active [id number] ALLERGIES Substance Reaction Event Type Date Status [place] Unknown Drug Allergy Feb, Active Niacin rash Drug Allergy Feb, Active Macrobid anaphylaxis Drug Allergy Feb, Active Iodine (IV contrast) Drug Allergy Feb, Active Ibuprofen (All NSAIDs) Drug Allergy Feb, Active Bactrim resp distress Drug Allergy Feb, Active ENCOUNTERS Encounter Location Date Diagnosis [place] [id number] [place] [address] 56878- 5831 Mar, [place] [address] 96760- 1890 Feb, Cellulitis of right upper extremity L03.113 and BMI 45.0- 49.9, adult Z68.42 [place] [address] 35542- 0789 Feb, Cellulitis of right arm L03.113 and Status post cardiac catheterization Z98.890 [place] [address] 45827- 5635 Feb, [facility] [id number] [place] [address] 02144- 2210 Feb, Chronic obstructive pulmonary disease, unspecified COPD type J44.9 ; Essential hypertension I10 ; Encounter for immunization Z23 ; Mixed hyperlipidemia E78.2 and BMI 45.0-49.9, adult Z68.42 [facility] [id number] [place] [address] 06465- 4996 03 Feb, 2018 Dysuria R30.0 ; Acute cystitis without hematuria N30.00 and BMI 45.0-49.9, adult Z68.42 [facility] [id number] [place] [address] 68073- 2082 Dec, [place] [id number] [place] [address] 73949- 5986 Dec, Essential hypertension I10 ; Chronic kidney disease, unspecified N18.9 ; Mixed hyperlipidemia E78.2 ; Tinea corporis B35.4 ; Right hip pain M25.551 and Acute pain of right knee M25.561 [place] [id number] [place] [address] 88617- 0424 Dec, Herpes zoster without complication B02.9 ; Dandruff L21.0 ; Diarrhea, unspecified type R19.7 and BMI 45.0-49.9, adult Z68.42 [place] [id number] [place] [address] 61656- 7381 September, Chronic kidney disease, unspecified N18.9 ; Essential hypertension I10 ; Mixed hyperlipidemia E78.2 and BMI 45.0-49.9, adult Z68.42 [place] [id number] [place] [address] 22525- 9907 September, [place] [address] 15090- 9989 September, Essential hypertension I10 ; Chronic kidney disease, unspecified N18.9 ; Prediabetes R73.03 ; Low back pain M54.5 ; Other chronic pain G89.29 ; Arthritis of knee M17.10 ; Pure hyperglyceridemia E78.1 ; Anemia of chronic disease D63.8 and BMI 45.0-49.9, adult Z68.42 [facility] [id number] [place] [address] 54013- 7206 Aug, [place] [id number] [place] [address] 28938- 4497 Jul, Abdominal aortic aneurysm (AAA) without rupture I71.4 ; PVD (peripheral vascular disease) I73.9 ; Renal artery stenosis I70.1 and Essential hypertension I10 [id number] [place] [address] 35776- 4587 May, Essential hypertension I10 ; Pure hyperglyceridemia E78.1 ; Abdominal aortic aneurysm (AAA) without rupture I71.4 ; Chronic kidney disease, unspecified N18.9 ; Gastroesophageal reflux disease without esophagitis K21.9 ; 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 ; Stenosis of right renal artery I70.1 ; Anemia of chronic disease D63.8 and Prediabetes R73.03 [address] [place] [address] 07615- 4085 May, Tinea corporis B35.4 and Viral URI J06.9 [place] [id number] [place] [address] 63478- 2876 May, [facility] [id number] [place] [address] 68066- 0671 Apr, [facility] [id number] [place] [address] 90328- 1802 14 Apr, 2017 Cervical radiculopathy M54.12 [facility] [id number] [place] [address] 75485 -4801 Apr, Flank pain R10.9 and Acute pyelonephritis N10 [place] [id number] [place] [address] 18788- 3148 Apr, [place] [id number] [place] [address] 38801- 3766 Mar, [place] [id number] [place] [address] 50750- 6996 Feb, Pain of right shoulder region M25.511 [place] [id number] [place] [address] 30938- 9404 Feb, History of glaucoma Z86.69 ; Vision changes H53.9 ; Abdominal aortic aneurysm (AAA) without rupture I71.4 ; Xerosis of skin L85.3 and Pain in right shoulder M25.511 [place] [id number] [place] [address] 30657- 7060 Feb, [place] [id number] [place] [address] 24305- 8673 13 Jan, 2017 Essential hypertension I10 ; Pure hyperglyceridemia E78.1 ; Chronic kidney disease, unspecified N18.9 ; Gastroesophageal reflux disease without esophagitis K21.9 ; 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 ; Stenosis of right renal artery I70.1 ; Anemia of chronic disease D63.8 ; Prediabetes R73.03 ; Pain of right shoulder region M25.511 and Homeless Z59.0 [place] [id number] [place] [address] 89649- 9579 Jan, Neck pain M54.2 and Seasonal allergic rhinitis, unspecified allergic rhinitis trigger J30.2 [facility] [id number] [place] [address] 72762- 3603 Dec, [facility] [id number] [place] [address] 72784- 2066 Dec, [place] [address] 80388- 3679 Dec, Blood glucose abnormal R73.09 ; Essential [...] H. pylori infection A04.8 and Prediabetes R73.03 [facility] [id number] [place] [address] 78258 -1434 Oct, Seasonal allergic rhinitis, unspecified allergic rhinitis trigger J30.2 [place] [address] 06571- 5863 September, Eustachian tube dysfunction, left H69.82 and Candidiasis of breast B37.89 [place] [id number] [place] [address] 53324- 0809 Jul, Blood glucose abnormal R73.09 ; Essential hypertension I10 ; Pure hyperglyceridemia E78.1 ; Chronic kidney disease, unspecified N18.9 ; Gastroesophageal reflux disease without esophagitis K21.9 ; 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 ; Abdominal aortic aneurysm (AAA) without rupture I71.4 ; Stenosis of right renal artery I70.1 ; Anemia of chronic disease D63.8 and Acute non-recurrent maxillary sinusitis J01.00 [facility] [id number] [place] [address] 07261- 5927 Jun, Acute non-recurrent maxillary sinusitis J01.00 ; Acute mucoid otitis media of left ear H65.112 ; Nausea R11.0 and Fever and chills R50.9 [place] [address] 34943- 0697 May, Acute right flank pain R10.9 [place] [address] 73537- 7146 Apr, Acute nasopharyngitis J00 ; Pure hyperglyceridemia E78.1 and Chronic kidney disease, unspecified N18.9 [place] [address] 22847- 4981 Apr, [place] [address] 96088- 8242 Apr, Blood glucose abnormal R73.09 ; Essential hypertension I10 ; Pure hyperglyceridemia E78.1 ; Chronic kidney disease, unspecified N18.9 ; Gastroesophageal reflux disease without esophagitis K21.9 ; 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 ; Abdominal aortic aneurysm (AAA) without rupture I71.4 ; Stenosis of right renal artery I70.1 ; RUQ pain R10.11 and Anemia of chronic disease D63.8 [place] [address] 57207- 5343 Mar, Blood glucose abnormal R73.09 [place] [address] 89368- 4442 Mar, Cellulitis of right lower leg L03.115 [facility] [id number] [place] [address] 23858 -1182 Feb, [place] [address] 67452- 0695 Feb, Dysuria R30.0 and Upper respiratory tract infection, unspecified type J06.9 [place] [address] 07305- 5469 Jan, [place] [address] 08081- 1167 Jan, [place] [id number] [place] [address] 01233- 9692 Dec, [place] [id number] [place] [address] 76594- 1597 Dec, Anemia of chronic disease D63.8 ; Essential hypertension I10 ; Pure hyperglyceridemia E78.1 ; Chronic kidney disease, unspecified N18.9 ; Gastroesophageal reflux disease without esophagitis K21.9 ; 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 and Pain in right knee M25.561 [place] [id number] [place] [address] 13401- 1465 Dec, Left shoulder strain, subsequent encounter S46.912D ; Urinary frequency R35.0 ; Lung nodule, solitary R91.1 ; Essential hypertension I10 and Acute cystitis without hematuria N30.[address] 53523- 3667 Nov, Left-sided chest wall pain R07.89 and Abnormal chest xray R93.8 [place] [id number] [place] [address] 37728- 0123 Nov, Pain of right lower extremity M79.604 ; Swelling of right lower extremity M79.89 ; Diarrhea, unspecified R19.7 ; Nausea with vomiting, unspecified R11.2 ; Left-sided chest wall pain R07.89 ; Chronic kidney disease, unspecified N18.9 ; Gastroesophageal reflux disease without esophagitis K21.9 and Other seasonal allergic rhinitis J30.2 [place] [id number] [place] [address] 18616- 8260 September, Essential hypertension I10 ; Chronic kidney disease, unspecified N18.9 ; Anemia of chronic disease D63.8 ; Pure hyperglyceridemia E78.1 ; Peripheral vascular disease I73.9 ; Abnormal glucose R73.09 ; 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 ; Gastroesophageal reflux disease without esophagitis K21.9 ; Allergic rhinitis J30.9 and Rash R21 [address] [place] [address]- 8391 Aug, Abdominal pain R10.9 and Constipation K59.[address] 30361- 2852 31 Jul, 2015 Injury of toe on right foot S99.921A [place] [address] 36796- 3092 Jul, [place] [address] 50831- 4447 Jul, Essential hypertension I10 ; Chronic kidney disease, unspecified N18.9 ; Anemia of chronic disease D63.8 ; Pure hyperglyceridemia E78.1 ; Peripheral vascular disease I73.9 ; Abnormal glucose R73.09 ; 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 ; Gastroesophageal reflux disease without esophagitis K21.9 and Allergic rhinitis J30.[address] 01406- 5270 Jun, Low back pain M54.5 [place] [address] 63270- 2614 Jun, [address] 52800- 1073 May, URI (upper respiratory infection) J06.[address] 16132- 5631 Apr, Essential hypertension I10 [address] 80096- 9558 10 Apr, 2015 Essential hypertension I10 ; Chronic kidney disease, unspecified N18.9 ; Anemia of chronic disease D63.8 ; Pure hyperglyceridemia E78.1 ; Peripheral vascular disease I73.9 ; Abnormal glucose R73.09 ; URI ( upper respiratory infection) J06.9 ; 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 ; Gastroesophageal reflux disease without esophagitis K21.9 and Cough R05 [place] [address] 25060- 1120 Mar, Flank pain R10.9 and URI (upper respiratory infection) J06.9 [place] [address] 07015- 5312 Mar, Right-sided low back pain without sciatica M54.5 and Hematuria, unspecified R31.9 [place] [address] 28221- 9706 Mar, Hypopigmentation L81.9 and Hyperpigmentation L81.9 [place] [address] 30632- 0551 Mar, [place] [address] 16163- 0227 Mar, Acute cystitis with hematuria N30.[address] 28807- 4960 Mar, [place] [address] 45097- 6572 Feb, Furuncle L02.92 ; Hypopigmentation L81.9 ; Hyperpigmentation L81.9 ; Urinary frequency R35.0 ; Screening for malignant neoplasm of cervix Z12.4 ; Vaginal discharge N89.8 ; Urinary, incontinence, stress female N39.3 and Vaginal irritation N89.8 [place] [address] 82937- 0791 Jan, Muscle spasm 728.85 ; Unspecified peripheral vascular disease 443.9 ; Benign essential hypertension 401.1 ; Chronic renal insufficiency 585.9 ; Chronic constipation 564.00 ; GERD (gastroesophageal reflux disease) 530.81 ; Hyperlipidemia 272.4 and Chronic leg pain 729.5 [place] [address] 62898- 3053 Jan, Sinusitis 473.9 [place] [address] 67056- 9807 Dec, [place] [id number] [place] [address] 10857- 4637 Dec, Acute bronchitis 466.0 [place] [address] 09446- 9765 Dec, Acute bronchitis 466.0 [place] [address] 30062- 9954 Dec, Unspecified episodic mood disorder 296.90 [place] [address] 20307- 1834 Dec, Visit for suture removal V58.32 [place] [address] 12507- 7516 Nov, Allergic rhinitis 477.9 and Onychomycosis 110.1 [place] [address] 38064- 2668 Oct, Muscle spasm 728.85 ; Benign essential hypertension 401.1 ; Chronic renal insufficiency 585.9 ; Chronic constipation 564.00 ; GERD ( gastroesophageal reflux disease) 530.81 and Hyperlipidemia 272.4 [place] [address] 93508- 7025 Oct, Otalgia of left ear 388.70 [place] [id number] [place] [address] 63183- 7472 Oct, Unspecified episodic mood disorder 296.90 [place] [id number] [place] [address] 10979- 4642 September, Unspecified episodic mood disorder 296.90 [place] [id number] [place] [address] 08448- 1456 September, Unspecified episodic mood disorder 296.90 [facility] [id number] [place] [address] [id number] September, Urinary frequency 788.41 and Constipation 564.00 [place] [address] 15858- 8293 14 Aug, 2014 [facility] [place] [facility] [address] [id number] [place] [address]- 6237 13 Aug, 2014 [facility] [place] [facility] [address] [id number] [place] [address]- 3878 30 Jul, 2014 [facility] [place] [facility] [address] [id number] [place] [address]- 2240 30 Jul, 2014 [facility] [place] [facility] [address] [id number] [place] [address]- 2612 Jul, [facility] [place] [facility] [address] [id number] [place] [address]- 0312 Jul, [facility] [place] [facility] [address] [id number] [place] [address]- 7657 Jul, [facility] [place] [facility] [address] [id number] [place] [address]- 8793 Jul, [facility] [place] [facility] [address] [id number] [place] [address]- 5781 Jul, [facility] [place] [facility] [address] [id number] [place] [address]- 1394 Jul, [facility] [place] [facility] [address] [id number] [place] [address]- 7102 Jul, [facility] [place] [facility] [address] [id number] [place] [address]- 1916 Jul, [facility] [place] [facility] [address] [id number], [place] [address]- 6137 Jun, [facility] [place] [facility] [address] [id number] [place] [address]- 6471 Jun, [facility] [place] [facility] [address] [id number] [place] [address]- 2463 May, [facility] [place] [facility] [address] [id number] [place] [address]- 3415 May, [facility] [place] [facility] [address] [id number] [place] [address]- 3438 May, [facility] [place] [facility] [address] [id number] [place] [address]- 3228 May, [facility] [place] [facility] [address] [id number] [place] [address]- 0769 May, [facility] [place] [facility] [address] [id number] [place] [address]- 1377 May, [facility] [place] [facility] [address] [id number] [place] [address]- 0970 May, [facility] [place] [facility] [address] [id number] [place] [address]- 2204 May, [facility] [place] [facility] [address] [id number] [place] [address]- 0073 May, [facility] [place] [facility] [address] [id number] [place] [address]- 8123 May, [facility] [place] [facility] [address] [id number] [place] [address]- 7108 May, [facility] [place] [facility] [address] [id number] [place] [address]- 7840 May, [facility] [place] [facility] [address] [id number] [place] [address]- 5543 May, [facility] [place] [facility] [address] [id number] [place] [address]- 0836 Feb, [facility] [place] [facility] [address] [id number] [place] [address]- 9001 Feb, [facility] [place] [facility] [address] [id number] [place] [address]- 9097 Jan, [facility] [place] [facility] [address] [id number] [place] [address]- 5754 Jan, [facility] [place] [facility] [address] [id number] [place] [address]- 8578 18 Jan, 2014 [facility] [place] [facility] [address] [id number] [place] [address]- 1141 18 Jan, 2013 [facility] [place] [facility] [address] [id number] [place] [address]- 6029 12 Jan, 2014 [facility] [place] [facility] [address] [id number] [place] [address]- 3135 12 Jan, 2013 [facility] [place] [facility] [address] [id number] [place] [address]- 5663 12 Jan, 2014 [facility] [place] [facility] [address] [id number] [place] [address]- 3705 12 Jan, 2014 [facility] [place] [facility] [address] [id number] [place] [address]- 2875 Jan, [facility] [place] [facility] [address] [id number] [place] [address]- 3766 Jan, [facility] [place] [facility] [address] [id number] [place] [address]- 4549 Jan, [facility] [place] [facility] [address] [id number] [place] [address]- 1677 Jan, [facility] [place] [facility] [address] [id number] [place] [address]- 4485 Oct, [facility] [place] [facility] [address] [id number] [place] [address]- 1755 Oct, [facility] [place] [facility] [address] [id number], [place] [address]- 4002 Oct, [facility] [place] [facility] [address] [id number] [place] [address]- 5877 Oct, [facility] [place] [facility] [address] [id number] [place] [address]- 2777 Jun, [facility] [place] [facility] [address] [id number] [place] [address]- 5543 Jun, [facility] [place] [facility] [address] [id number] [place] [address]- 9302 Jun, [facility] [address] [id number] [place] [address]- 5571 Jun, [facility] [address] [id number] [place] [address]- 9071 Apr, [facility] [address] [id number] [place] [address]- 0468 Apr, [facility] [address] [id number] [place] [address]- 8584 Feb, [facility] [address] [id number] [place] [address]- 6637 Feb, [facility] [address] [id number] [place] [address]- 6092 Dec, [facility] [address] [id number] [place] [address]- 6434 Dec, [facility] [address] [id number] [place] [address]- 2375 Nov, [facility] [address] [id number] [place] [address]- 2451 Nov, [facility] [address] [facility] [id number] [place] [address]- 9109 Nov, [facility] [address] [id number] [place] [address]- 3870 Oct, [facility] [place] [facility] [address] [id number] [place] [address]- 8409 September, [facility] [address] [id number] [place] [address]- 8345 September, [facility] [place] [facility] [address] [id number] [place] [address]- 6648 Aug, [facility] [address] [id number] [place] [address]- 9243 Aug, [facility] [address] [id number] [place] [address]- 9899 Aug, [facility] [address] [id number] [place] [address]- 9900 Aug, [facility] [place] [facility] [address] [id number] [place] [address]- 8881 Aug, [facility] [address] [id number] [place] [address]- 9294 Aug, [facility] [place] [facility] [address] [id number] [place] [address]- 7476 Jul, [facility] [place] [facility] [address] [id number] [place] [address]- 0140 Jul, [facility] [address] [id number] [place] [address]- 7795 Jul, [facility] [address] [id number] [place] [address]- 8313 15 Jul, 2012 [facility] [address] [id number] [place] [address]- 9[address] Jul, [facility] [address] [id number] [place] [address]- 6330 Jul, [facility] [address] [id number] [place] [address]- 1015 Jun, [facility] [address] [id number] [place] [address]- 7143 Jun, [facility] [place] [facility] [address] [id number] [place] [address] May, [facility] [place] [facility] [address] [id number] [place] [address] May, [facility] [place] [facility] [address] [id number] [place] [address] Apr, [facility] [place] [facility] [address] [id number], [place] [address] Apr, [facility] [place] [facility] [address] [id number] [place] [address] Apr, [facility] [place] [facility] [address] [id number] [place] [address] Apr, [facility] [place] [facility] [address] [facility] [id number] [place] [address] Apr, [facility] [place] [facility] [address] [id number] [place] [address] Mar, [facility] [place] [facility] [address] [id number] [place] [address] Mar, [facility] [place] [facility] [address] [id number] [place] [address] Mar, [facility] [place] [facility] [address] [id number] [place] [address] Mar, [facility] [place] [facility] [address] [id number] [place] [address] Mar, [facility] [place] [facility] [address] [id number] [place] [address] Mar, [facility] [place] [facility] [address] [id number] [place] [address] Mar, [facility] [place] [facility] [address] [id number], [place] [address] Feb, [facility] [place] [facility] [address] [id number], [place] [address] Feb, [facility] [place] [facility] [address] [id number] [place] [address] Feb, [facility] [place] [facility] [address] [facility] [id number] [place] [address] Feb, [facility] [place] [facility] [address] [facility] [id number][place] [address] Dec, [facility] [place] [facility] [address] [id number] [place] [address] 06 Nov, 2011 [facility] [address] [id number] [place] [address] Nov, [facility] [place] [facility] [address] [id number] [place] [address] Oct, [facility] [address] [id number] [place] [address] Oct, [facility] [place] [facility] [address] [id number] [place] [address] Oct, [facility] [address] [id number] [place] [address] Oct, [facility] [address] [id number] [place] [address] Oct, [facility] [address] [id number] [place] [address] Oct, [facility] [address] [id number] [place] [address] Oct, [facility] [place] [facility] [address] [id number] [place] [address] Aug, [facility] [address] [id number] [place] [address] Jul, [facility] [place] [facility] [address] [id number] [place] [address] Jul, [facility] [place] [facility] [address] [id number] [place] [address] 15 Jul, 2011 [facility] [place] [facility] [address] [id number] [place] [address] Jul, [facility] [place] [facility] [address] [id number] [place] [address] Jul, [facility] [place] [facility] [address] [id number] [place] [address] Jul, [facility] [place] [facility] [address] [id number] [place] [address] Jul, [facility] [place] [facility] [address] [id number] [place] [address] Jun, [facility] [place] [facility] [address] [id number] [place] [address] May, [facility] [place] [facility] [address] [id number] [place] [address] May, [facility] [place] [facility] [address] [id number] [place] [address] May, [facility] [place] [facility] [address] [id number] [place] [address] Apr, [facility] [place] [facility] [address] [id number] [place] [address] Apr, [facility] [place] [facility] [address] [id number] [place] [address] 16 Apr, 2011 [facility] [place] [facility] [address] [id number] [place] [address] Apr, [facility] [place] [facility] [address] [facility] [id number], [place] [address] Apr, [facility] [place] [facility] [address] [id number], [place] [address] Apr, [facility] [place] [facility] [address] [id number], [place] [address] Mar, [facility] [place] [facility] [address] [id number] [place] [address] Mar, [facility] [place] [facility] [address] [id number] [place] [address] Mar, [facility] [place] [facility] [address] [id number], [place] [address] Mar, [facility] [place] [facility] [address] [id number], [place] [address] Mar, [facility] [address] [id number] [place] [address] Mar, [facility] [place] [facility] [address] [id number] [place] [address] Mar, [facility] [address] [facility] [id number] [place] [address] Dec, [facility] [place] [facility] [address] [id number] [place] [address] Aug, [facility] [address] [id number] [place] [address], [place] [address] Apr, [facility] [place] [facility] [address] [id number] [place] [address] Mar, [facility] [address] [facility] [id number], [place] [address] Mar, [facility] [place] [facility] [address] [id number] [place] [address] Mar, [facility] [id number] [address] Mar, [facility] [place] [facility] [address] [id number], [place] [address] September, [facility] [place] [facility] [address] [id number], [place] [address] Mar, [facility] [place] [facility] [address] [id number], [place] [address] Feb, [facility] [place] [facility] [address] [id number], [place] [address] Oct, [facility] [place] [facility] [address] [facility] [id number], [place] [address] September, [facility] [place] [facility] [address] [facility] [id number], [place] [address] Apr, [facility] [place] [facility] [address] [facility] [id number] [place] [address] Mar, IMMUNIZATIONS No Known Immunizations SOCIAL HISTORY Never Assessed REASON FOR VISIT cut on arm Pt states she has a cut on Rt on which is now swollen and hot, happened 3 days ago. Pt also reports lump in groin had a heart cath on February 08 in that same area --ZACHARIAH Miranda PLAN OF CARE Activity Details Follow Up prn Reason: VITAL SIGNS Height 65 in 2018-02-27 Weight 284.8 lbs 2018-02-27 Temperature 98.7 degrees Fahrenheit 2018-02-27 Heart Rate 82 bpm 2018-02-27 Respiratory Rate 20 2018-02-27 BMI 47.39 kg/m2 2018-02-27 Blood pressure systolic 142 mmHg 2018-02-27 Blood pressure diastolic 78 mmHg 2018-02-27 MEDICATIONS Medication Instructions Dosage Frequency Start Date End Date Duration Status Hydrochlorothiazide 12.5 MG Orally Once a day 1 tablet in the morning 24h September, Active Calcium 600 MG Active Proventil HFA 90 mcg/actuation 2 puffs by Inhalation route 4 times per day PRN May, Active Symbicort 160-4.5 MCG/ACT Inhalation Twice a day 1 puffs 12h May, Jun, 30 days Active Fluticasone Propionate 50 MCG/ACT Nasally Once a day 1 spray in each nostril 24h 30 days Active Zofran 8 MG Orally every 8 hours, PRN 1 tablet Jun, 3 days Active Triamcinolone Acetonide 0.1 % Externally Twice a day 1 application to affected area 12h 7 Active Omeprazole 40 mg Orally Once a day TAKE ONE (1) CAPSULE BY MOUTH ONCE DAILY 24h 30 days Active Cephalexin 500 mg Orally 3 times a day 1 capsule 8h Feb, Feb, 7 days Active Gabapentin 100 mg Orally 2 times a day 1 capsule 12h 30 days Active Amlodipine Besylate 5 mg Orally Once a day 2 tablet 24h September, Active Vitamin C 500 mg 1 tablet by Oral route 1 time per day May, Active Atorvastatin Calcium 10 mg Orally Once a day 1 tablet 24h 30 Active Toprol XL 200 mg Orally Once a day 1 tablets 24h Active Multivitamin Active Lisinopril 20 mg Orally Once a day 1 tablet 24h Active Stress Tab NF - as directed Active RESULTS No Results PROCEDURES No Known [...]
--- OUTSIDE RECORDS SUMMARY | 2018-04-11 21:02 | XMS REPORT ---
Author Author MARKUS BALDWIN [facility] Address [address] [place] [address] Care Team Providers Care Event Marketing Intern Name Role Phone MARKUS BALDWIN Unavailable PROBLEMS Type Condition ICD9-CM Code QHU31-KD Code Onset Dates Condition Status SNOMED Code Problem Abdominal aortic aneurysm (AAA) without rupture I71.4 Active 32915865 Problem Prediabetes R73.03 Active 715656326 Problem Seasonal allergic rhinitis, unspecified allergic rhinitis trigger J30.2 Active 308025720 Problem Chronic obstructive pulmonary disease, unspecified COPD type J44.9 Active 28971851 Problem Hepatic steatosis K76.0 Active 412104763 Problem Mixed hyperlipidemia E78.2 Active 234335529 Problem PVD (peripheral vascular disease) I73.9 Active 542117457 Problem Renal artery stenosis I70.1 Active 647085474 Problem Other chronic pain G89.29 Active 82847343 Problem Arthritis of knee M17.10 Active 934423230 Problem Dysphagia, unspecified R13.10 Active 90687543 Problem Chronic kidney disease, unspecified N18.9 Active 121023119 Problem Urinary, incontinence, stress female N39.3 Active 80949655 Problem Peripheral vascular disease I73.9 Active 523686472 Problem 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 728773355 Problem Essential hypertension I10 Active 22888948 Problem Cervicalgia M54.2 Active 5264837881311 Problem Gastroesophageal reflux disease without esophagitis K21.9 Active 387107205 Problem Anemia of chronic disease D63.8 Active 426093171 Problem Stenosis of right renal artery I70.1 Active [id number] ALLERGIES Substance Reaction Event Type Date Status [place]turn[place] Unknown Drug Allergy Feb, Active Niacin rash Drug Allergy Feb, Active Macrobid anaphylaxis Drug Allergy Feb, Active Iodine (IV contrast) Drug Allergy Feb, Active Ibuprofen (All NSAIDs) Drug Allergy Feb, Active Bactrim resp distress Drug Allergy Feb, Active ENCOUNTERS Encounter Location Date Diagnosis [facility] [id number] [place] [address] 49996- 4134 Mar, [facility] [address] 66671- 4142 Feb, Cellulitis of right upper extremity L03.113 and BMI 45.0- 49.9, adult Z68.42 [facility] [address] 61493- 2678 Feb, Cellulitis of right arm L03.113 and Status post cardiac catheterization Z98.890 [facility] [address] 68740- 7667 Feb, [facility] [facility] [id number] [place] [address] 94029- 3478 Feb, Chronic obstructive pulmonary disease, unspecified COPD type J44.9 ; Essential hypertension I10 ; Encounter for immunization Z23 ; Mixed hyperlipidemia E78.2 and BMI 45.0-49.9, adult Z68.42 [facility] [id number] [place] [address] 17204- 2160 03 Feb, 2018 Dysuria R30.0 ; Acute cystitis without hematuria N30.00 and BMI 45.0-49.9, adult Z68.42 [facility] [id number] [place] [address] 79175- 1927 Dec, [facility] [id number] [place] [address] 79580- 1564 Dec, Essential hypertension I10 ; Chronic kidney disease, unspecified N18.9 ; Mixed hyperlipidemia E78.2 ; Tinea corporis B35.4 ; Right hip pain M25.551 and Acute pain of right knee M25.561 [facility] [facility] [id number] [place] [address] 25685- 8393 Dec, Herpes zoster without complication B02.9 ; Dandruff L21.0 ; Diarrhea, unspecified type R19.7 and BMI 45.0-49.9, adult Z68.42 [facility] [id number] [place] [address] 62379- 1291 September, Chronic kidney disease, unspecified N18.9 ; Essential hypertension I10 ; Mixed hyperlipidemia E78.2 and BMI 45.0-49.9, adult Z68.42 [facility] [id number] [place] [address] 64876- 3080 September, [facility] [address] 12759- 4646 September, Essential hypertension I10 ; Chronic kidney disease, unspecified N18.9 ; Prediabetes R73.03 ; Low back pain M54.5 ; Other chronic pain G89.29 ; Arthritis of knee M17.10 ; Pure hyperglyceridemia E78.1 ; Anemia of chronic disease D63.8 and BMI 45.0-49.9, adult Z68.42 [facility] [facility] [address] 05963- 6816 Aug, [place] [id number] [place] [address] 52855- 3567 Jul, Abdominal aortic aneurysm (AAA) without rupture I71.4 ; PVD (peripheral vascular disease) I73.9 ; Renal artery stenosis I70.1 and Essential hypertension I10 [place] [id number] [place] [address] 08029- 5167 May, Essential hypertension I10 ; Pure hyperglyceridemia E78.1 ; Abdominal aortic aneurysm (AAA) without rupture I71.4 ; Chronic kidney disease, unspecified N18.9 ; Gastroesophageal reflux disease without esophagitis K21.9 ; 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 ; Stenosis of right renal artery I70.1 ; Anemia of chronic disease D63.8 and Prediabetes R73.[address] [place] [address] 15358- 8878 May, Tinea corporis B35.4 and Viral URI J06.9 [address] [place] [address] 24818- 0447 May, [facility] [id number] [place] [address] 27536- 3808 Apr, [facility] [id number] [place] [address] 21079- 1454 14 Apr, 2017 Cervical radiculopathy M54.12 [facility] [id number] [place] [address] 13725 -8453 Apr, Flank pain R10.9 and Acute pyelonephritis N10 [facility] [id number] [place] [address] 26029- 3999 Apr, [facility] [id number] [place] [address] 29352- 0878 Mar, [facility] [id number] [place] [address] 75407- 2065 Feb, Pain of right shoulder region M25.511 [facility] [id number] [place] [address] 28325- 0264 Feb, History of glaucoma Z86.69 ; Vision changes H53.9 ; Abdominal aortic aneurysm (AAA) without rupture I71.4 ; Xerosis of skin L85.3 and Pain in right shoulder M25.511 [place] [id number] [place] [address] 19764- 5901 Feb, [facility] [id number] [place] [address] 21560- 1157 13 Jan, 2017 Essential hypertension I10 ; Pure hyperglyceridemia E78.1 ; Chronic kidney disease, unspecified N18.9 ; Gastroesophageal reflux disease without esophagitis K21.9 ; Idiopathic progressive neuropathy G60.3 ; Stenosis of right renal artery I70.1 ; Anemia of chronic disease D63.8 ; Prediabetes R73.03 ; Pain of right shoulder region M25.511 and Homeless Z59.0 [facility] [id number] [place] [address] 25512- 1707 Jan, Neck pain M54.2 and Seasonal allergic rhinitis, unspecified allergic rhinitis trigger J30.2 [facility] [id number] [place] [address] 02633- 8649 Dec, [facility] [id number] [place] [address] 93558- 1631 Dec, [place] [address] 22497- 6858 Dec, Blood glucose abnormal R73.09 ; Essential [...] H. pylori infection A04.8 and Prediabetes R73.03 [facility] [id number] [place] [address] 38449 -7605 Oct, Seasonal allergic rhinitis, unspecified allergic rhinitis trigger J30.[address] 25515- 7491 September, Eustachian tube dysfunction, left H69.82 and Candidiasis of breast B37.89 [place] [id number] [place] [address] 73947- 8764 Jul, Blood glucose abnormal R73.09 ; Essential hypertension I10 ; Pure hyperglyceridemia E78.1 ; Chronic kidney disease, unspecified N18.9 ; Gastroesophageal reflux disease without esophagitis K21.9 ; 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 ; Abdominal aortic aneurysm (AAA) without rupture I71.4 ; Stenosis of right renal artery I70.1 ; Anemia of chronic disease D63.8 and Acute non-recurrent maxillary sinusitis J01.00 [facility] [id number] [place] [address] 48410- 9169 Jun, Acute non-recurrent maxillary sinusitis J01.00 ; Acute mucoid otitis media of left ear H65.112 ; Nausea R11.0 and Fever and chills R50.9 [place] [address] 06946- 2086 May, Acute right flank pain R10.9 [place] [address] 14325- 1385 Apr, Acute nasopharyngitis J00 ; Pure hyperglyceridemia E78.1 and Chronic kidney disease, unspecified N18.9 [facility] [address] 77697- 6769 Apr, [place] [address] 68054- 2037 Apr, Blood glucose abnormal R73.09 ; Essential hypertension I10 ; Pure hyperglyceridemia E78.1 ; Chronic kidney disease, unspecified N18.9 ; Gastroesophageal reflux disease without esophagitis K21.9 ; 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 ; Abdominal aortic aneurysm (AAA) without rupture I71.4 ; Stenosis of right renal artery I70.1 ; RUQ pain R10.11 and Anemia of chronic disease D63.8 [facility] [address] 92001- 6119 Mar, Blood glucose abnormal R73.09 [facility] [address] 56214- 7414 Mar, Cellulitis of right lower leg L03.115 [facility] [id number] [place] [address] 12303 -4886 Feb, [place] [address] 96992- 5269 Feb, Dysuria R30.0 and Upper respiratory tract infection, unspecified type J06.9 [place] [address] 47277- 4988 Jan, [facility] [address] 03007- 9323 Jan, [place] [address] [place] [address] 21817- 4734 Dec, [facility] [id number] [place] [address] 45141- 3471 Dec, Anemia of chronic disease D63.8 ; Essential hypertension I10 ; Pure hyperglyceridemia E78.1 ; Chronic kidney disease, unspecified N18.9 ; Gastroesophageal reflux disease without esophagitis K21.9 ; 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 and Pain in right knee M25.561 [place] [id number] [place] [address] 95208- 0524 Dec, Left shoulder strain, subsequent encounter S46.912D ; Urinary frequency R35.0 ; Lung nodule, solitary R91.1 ; Essential hypertension I10 and Acute cystitis without hematuria N30.00 [place] [id number] [place] [address] 43107- 0390 Nov, Left-sided chest wall pain R07.89 and Abnormal chest xray R93.8 [place] [id number] [place] [address] 46928- 4563 Nov, Pain of right lower extremity M79.604 ; Swelling of right lower extremity M79.89 ; Diarrhea, unspecified R19.7 ; Nausea with vomiting, unspecified R11.2 ; Left-sided chest wall pain R07.89 ; Chronic kidney disease, unspecified N18.9 ; Gastroesophageal reflux disease without esophagitis K21.9 and Other seasonal allergic rhinitis J30.2 [facility] [address] [place] [address] 23890- 6396 September, Essential hypertension I10 ; Chronic kidney disease, unspecified N18.9 ; Anemia of chronic disease D63.8 ; Pure hyperglyceridemia E78.1 ; Peripheral vascular disease I73.9 ; Abnormal glucose R73.09 ; 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 ; Gastroesophageal reflux disease without esophagitis K21.9 ; Allergic rhinitis J30.9 and Rash R21 [place] [id number] [place] [address] [address]- 2502 Aug, Abdominal pain R10.9 and Constipation K59.00 [facility] [address] 02004- 0776 31 Jul, 2015 Injury of toe on right foot S99.921A [facility] [address] 51775- 4057 Jul, [place] [address] 24296- 8461 Jul, Essential hypertension I10 ; Chronic kidney disease, unspecified N18.9 ; Anemia of chronic disease D63.8 ; Pure hyperglyceridemia E78.1 ; Peripheral vascular disease I73.9 ; Abnormal glucose R73.09 ; 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 ; Gastroesophageal reflux disease without esophagitis K21.9 and Allergic rhinitis J30.9 [facility] [address] 41817- 6645 Jun, Low back pain M54.5 [facility] [facility] [address] 27400- 1405 Jun, [place] [address] 79957- 3175 May, URI (upper respiratory infection) J06.9 [place] [address] 66399- 9839 15 Apr, 2015 Essential hypertension I10 [place] [address] 89085- 8472 10 Apr, 2015 Essential hypertension I10 ; Chronic kidney disease, unspecified N18.9 ; Anemia of chronic disease D63.8 ; Pure hyperglyceridemia E78.1 ; Peripheral vascular disease I73.9 ; Abnormal glucose R73.09 ; URI ( upper respiratory infection) J06.9 ; 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 ; Gastroesophageal reflux disease without esophagitis K21.9 and Cough R05 [place] [address] 80320- 8752 Mar, Flank pain R10.9 and URI (upper respiratory infection) J06.9 [facility] [address] 56470- 0945 Mar, Right-sided low back pain without sciatica M54.5 and Hematuria, unspecified R31.9 [facility] [address] 39568- 0568 Mar, Hypopigmentation L81.9 and Hyperpigmentation L81.9 [facility] [address] 60605- 4264 Mar, [place] [address] 74882- 8431 Mar, Acute cystitis with hematuria N30.[address] 37564- 7137 Mar, [place] [address] 15736- 5151 Feb, Furuncle L02.92 ; Hypopigmentation L81.9 ; Hyperpigmentation L81.9 ; Urinary frequency R35.0 ; Screening for malignant neoplasm of cervix Z12.4 ; Vaginal discharge N89.8 ; Urinary, incontinence, stress female N39.3 and Vaginal irritation N89.8 [facility] [address] 13751- 8082 Jan, Muscle spasm 728.85 ; Unspecified peripheral vascular disease 443.9 ; Benign essential hypertension 401.1 ; Chronic renal insufficiency 585.9 ; Chronic constipation 564.00 ; GERD (gastroesophageal reflux disease) 530.81 ; Hyperlipidemia 272.4 and Chronic leg pain 729.5 [facility] [address] 61499- 0054 Jan, Sinusitis 473.9 [place] [address] 31868- 6303 Dec, [place] [id number] [place] [address] 83825- 7070 Dec, Acute bronchitis 466.0 [facility] [address] 01092- 7960 Dec, Acute bronchitis 466.0 [facility] [id number] [place] [address] 72816- 3021 Dec, Unspecified episodic mood disorder 296.90 [facility] [id number] [place] [address] 25577- 3492 Dec, Visit for suture removal V58.32 [place] [address] 70066- 5633 Nov, Allergic rhinitis 477.9 and Onychomycosis 110.1 [place] [address] 31704- 1304 Oct, Muscle spasm 728.85 ; Benign essential hypertension 401.1 ; Chronic renal insufficiency 585.9 ; Chronic constipation 564.00 ; GERD ( gastroesophageal reflux disease) 530.81 and Hyperlipidemia 272.4 [place] [id number] [place] [address] 03479- 3066 Oct, Otalgia of left ear 388.70 [facility] [id number] [place] [address] 35249- 0539 Oct, Unspecified episodic mood disorder 296.90 [facility] [id number] [place] [address] 18586- 1136 September, Unspecified episodic mood disorder 296.90 [facility] [id number] [place] [address] 50537- 9331 September, Unspecified episodic mood disorder 296.90 [facility] [id number] [place] [address] [id number] September, Urinary frequency 788.41 and Constipation 564.00 [place] [address] 89654- 9974 14 Aug, 2014 [facility] [place] [facility] [address] [id number] [place] [address]- 1885 Aug, [facility] [place] [facility] [address] [id number] [place] [address]- 6580 30 Jul, 2014 [facility] [place] [facility] [address] [id number] [place] [address]- 1206 Jul, [facility] [place] [facility] [address] [id number] [place] [address]- 4740 Jul, [facility] [place] [facility] [address] [id number] [place] [address]- 5317 Jul, [facility] [place] [facility] [address] [id number] [place] [address]- 0472 Jul, [facility] [place] [facility] [address] [id number] [place] [address]- 4734 Jul, [facility] [place] [facility] [address] [id number] [place] [address]- 3571 Jul, [facility] [place] [facility] [address] [id number] [place] [address]- 6573 Jul, [facility] [place] [facility] [address] [id number] [place] [address]- 5881 Jul, [facility] [place] [facility] [address] [id number] [place] [address]- 2141 Jul, [facility] [place] [facility] [address] [id number], [place] [address]- 2275 Jun, [facility] [place] [facility] [address] [id number] [place] [address]- 5462 Jun, [facility] [place] [facility] [address] [id number] [place] [address]- 8904 May, [facility] [place] [facility] [address] [id number] [place] [address]- 1157 May, [facility] [place] [facility] [address] [id number] [place] [address]- 1031 May, [facility] [address] [id number] [place] [address]- 0640 May, [facility] [place] [facility] [address] [id number] [place] [address]- 1311 May, [facility] [place] [facility] [address] [id number] [place] [address]- 7695 May, [facility] [place] [facility] [address] [id number] [place] [address]- 6031 May, [facility] [place] [facility] [address] [id number] [place] [address]- 9960 May, [facility] [place] [facility] [address] [id number] [place] [address]- 9807 May, [facility] [address] [id number] [place] [address]- 6912 May, [facility] [place] [facility] [address] [id number] [place] [address]- 3760 May, [facility] [place] [facility] [address] [id number] [place] [address]- 3653 May, [facility] [address] [id number] [place] [address]- 0652 May, [facility] [address] [id number] [place] [address]- 0688 Feb, [facility] [place] [facility] [address] [id number] [place] [address]- 8129 Feb, [facility] [place] [facility] [address] [id number] [place] [address]- 4124 Jan, [facility] [place] [facility] [address] [id number] [place] [address]- 8577 Jan, [facility] [place] [facility] [address] [id number] [place] [address]- 9833 18 Jan, 2014 [facility] [place] [facility] [address] [id number] [place] [address]- 6616 18 Jan, 2013 [facility] [place] [facility] [address] [id number] [place] [address]- 6379 12 Jan, 2014 [facility] [place] [facility] [address] [id number] [place] [address]- 2202 12 Jan, 2013 [facility] [place] [facility] [address] [id number] [place] [address]- 4736 12 Jan, 2013 [facility] [place] [facility] [address] [id number] [place] [address]- 4486 12 Jan, 2014 [facility] [place] [facility] [address] [id number] [place] [address]- 9336 Jan, [facility] [place] [facility] [address] [id number] [place] [address]- 6264 Jan, [facility] [place] [facility] [address] [id number] [place] [address]- 7693 Jan, [facility] [place] [facility] [address] [id number] [place] [address]- 9235 Jan, [facility] [place] [facility] [address] [id number] [place] [address]- 0087 Oct, [facility] [place] [facility] [address] [id number] [place] [address]- 5312 Oct, [facility] [place] [facility] [address] [id number], [place] [address]- 8157 Oct, [facility] [place] [facility] [address] [id number] [place] [address]- 8520 Oct, [facility] [place] [facility] [address] [id number] [place] [address]- 0317 Jun, [facility] [place] [facility] [address] [id number] [place] [address]- 2798 Jun, [facility] [place] [facility] [address] [id number], [place] [address]- 6906 Jun, [facility] [address] [id number] [place] [address]- 2119 Jun, [facility] [place] [facility] [address] [id number] [place] [address]- 3064 Apr, [facility] [place] [facility] [address] [id number] [place] [address]- 6151 Apr, [facility] [place] [facility] [address] [id number] [place] [address]- 2448 Feb, [facility] [place] [facility] [address] [id number] [place] [address]- 0117 Feb, [facility] [place] [facility] [address] [id number] [place] [address]- 6509 Dec, [facility] [address] [id number] [place] [address]- 6329 Dec, [facility] [place] [facility] [address] [id number] [place] [address]- 2489 Nov, [facility] [address] [id number] [place] [address]- 9162 Nov, [facility] [address] [facility] [id number] [place] [address]- 7021 Nov, [facility] [address] [id number] [place] [address]- 6096 Oct, [facility] [place] [facility] [address] [id number] [place] [address]- 7325 September, [facility] [place] [facility] [address] [id number] [place] [address]- 9030 September, [facility] [place] [facility] [address] [id number] [place] [address]- 9369 Aug, [facility] [place] [facility] [address] [facility] [id number] [place] [address]- 5432 Aug, [facility] [place] [facility] [address] [id number] [place] [address]- 6594 Aug, [facility] [place] [facility] [address] [id number] [place] [address]- 9589 Aug, [facility] [place] [facility] [address] [id number] [place] [address]- 6226 Aug, [facility] [address] [id number] [place] [address]- 8639 Aug, [facility] [place] [facility] [address] [id number] [place] [address] Jul, [facility] [place] [facility] [address] [id number] [place] [address] Jul, [facility] [address] [id number] [place] [address] Jul, [facility] [address] [id number] [place] [address] Jul, [facility] [address] [id number] [place] [address] Jul, [facility] [address] [id number] [place] [address] Jul, [facility] [address] [id number] [place] [address] Jun, [facility] [address] [id number] [place] [address] Jun, [facility] [address] [id number] [place] [address] May, [facility] [place] [facility] [address] [id number] [place] [address] May, [facility] [address] [id number] [place] [address] Apr, [facility] [address] [id number] [place] [address] Apr, [facility] [place] [facility] [address] [id number] [place] [address] Apr, [facility] [place] [facility] [address] [id number] [place] [address] Apr, [facility] [place] [facility] [address] [id number] [place] [address] Apr, [facility] [place] [facility] [address] [id number] [place] [address] Mar, [facility] [place] [facility] [address] [id number] [place] [address] Mar, [facility] [place] [facility] [address] [id number] [place] [address] Mar, [facility] [place] [facility] [address] [id number] [place] [address] Mar, [facility] [place] [facility] [address] [id number] [place] [address] Mar, [facility] [place] [facility] [address] [id number] [place] [address] Mar, [facility] [place] [facility] [address] [id number] [place] [address] Mar, [facility] [place] [facility] [address] [id number] [place] [address] Feb, [facility] [place] [facility] [address] [id number] [place] [address] Feb, [facility] [place] [facility] [address] [id number] [place] [address] Feb, [facility] [place] [facility] [address] [id number] [place] [address] Feb, [facility] [place] [facility] [address] [id number] [place] [address] Dec, [facility] [place] [facility] [address] [id number] [place] [address] 06 Nov, 2011 [facility] [place] [facility] [address] [id number] [place] [address] Nov, [facility] [place] [facility] [address] [id number] [place] [address] Oct, [facility] [place] [facility] [address] [id number] [place] [address] Oct, [facility] [place] [facility] [address] [id number] [place] [address] Oct, [facility] [place] [facility] [address] [id number] [place] [address] Oct, [facility] [place] [facility] [address] [id number] [place] [address] Oct, [facility] [place] [facility] [address] [id number] [place] [address] Oct, [facility] [place] [facility] [address] [id number] [place] [address] Oct, [facility] [place] [facility] [address] [id number] [place] [address] Aug, [facility] [address] [id number] [place] [address] Jul, [facility] [place] [facility] [address] [id number] [place] [address] Jul, [facility] [place] [facility] [address] [id number] [place] [address] 15 Jul, 2011 [facility] [place] [facility] [address] [id number] [place] [address] Jul, [facility] [place] [facility] [address] [id number] [place] [address] Jul, [facility] [place] [facility] [address] [id number] [place] [address] Jul, [facility] [place] [facility] [address] [id number] [place] [address] Jul, [facility] [place] [facility] [address] [id number] [place] [address] Jun, [facility] [place] [facility] [address] [id number] [place] [address] May, [facility] [place] [facility] [address] [id number] [place] [address] May, [facility] [place] [facility] [address] [id number] [place] [address] May, [facility] [place] [facility] [address] [id number] [place] [address] Apr, [facility] [place] [facility] [address] [id number] [place] [address] Apr, [facility] [place] [facility] [address] [id number] [place] [address] 16 Apr, 2011 [facility] [place] [facility] [address] [id number] [place] [address] Apr, [facility] [place] [facility] [address] [id number] [place] [address] Apr, [facility] [place] [facility] [address] [id number] [place] [address] Apr, [facility] [place] [facility] [address] [id number] [place] [address] Mar, [facility] [place] [facility] [address] [id number] [place] [address] Mar, [facility] [place] [facility] [address] [id number] [place] [address] Mar, [facility] [place] [facility] [address] [id number] [place] [address] Mar, [facility] [place] [facility] [address] [id number] [place] [address] Mar, [facility] [place] [facility] [address] [id number] [place] [address] Mar, [facility] [place] [facility] [address] [id number] [place] [address] Mar, [facility] [place] [facility] [address] [id number] [place] [address] Dec, [facility] [place] [facility] [address] [id number] [place] [address] Aug, [facility] [place] [facility] [address] [id number] [place] [address] Apr, [facility] [place] [facility] [address] [id number] [place] [address] Mar, [facility] [place] [facility] [address] [id number] [place] [address] Mar, [facility] [place] [facility] [address] [id number] [place] [address] Mar, [facility] [place] [facility] [address] [id number] [place] [address] Mar, [facility] [place] [facility] [address] [facility] [id number] [place] [address] September, [facility] [place] [facility] [address] [id number], [place] [address] Mar, [facility] [place] [facility] [address] [id number], [place] [address] Feb, [facility] [place] [facility] [address] [id number], [place] [address] Oct, [facility] [place] [facility] [address] [id number], [place] [address] September, [facility] [place] [facility] [address] [id number], [place] [address] Apr, [facility] [place] [facility] [address] [facility] [id number] [place] [address] Mar, IMMUNIZATIONS No Known Immunizations SOCIAL HISTORY Never Assessed REASON FOR VISIT swollen/red arm- pt was seen on 02/27 for a cut, redness and rash on arm. She was given cephalexin and states that it did not help at all. ZACHARIAH Martines, pt has only been taking her antibiotics 2 times a day instead of 3- ZACHARIAH Martines PLAN OF CARE Activity Details Follow Up if not improving with PCP or reg follow up Reason: VITAL SIGNS Height 65 in 2018-03-06 Weight 282.7 lbs 2018-03-06 Temperature 97.5 degrees Fahrenheit 2018-03-06 Heart Rate 74 bpm 2018-03-06 Respiratory Rate 18 2018-03-06 BMI 47.04 kg/m2 2018-03-06 Blood pressure systolic 138 mmHg 2018-03-06 Blood pressure diastolic 64 mmHg 2018-03-06 MEDICATIONS Medication Instructions Dosage Frequency Start Date End Date Duration Status Vitamin C 500 mg 1 tablet by Oral route 1 time per day May, Active Amlodipine Besylate 5 mg Orally Once a day 2 tablet 24h September, Active Triamcinolone Acetonide 0.1 % Externally Twice a day 1 application to affected area 12h 7 Active Multivitamin Active Hydrochlorothiazide 12.5 MG Orally Once a day 1 tablet in the morning 24h September, Active Doxycycline Hyclate 100 mg Orally twice a day 1 capsule 12h 31 Feb, 2018 Mar, 10 day(s) Active Fluticasone Propionate 50 MCG/ACT Nasally Once a day 1 spray in each nostril 24h 30 days Active Atorvastatin Calcium 10 mg Orally Once a day 1 tablet 24h 30 Active Toprol XL 200 mg Orally Once a day 1 tablets 24h Active Stress Tab NF - as directed Active Lisinopril 20 mg Orally Once a day 1 tablet 24h Active Gabapentin 100 mg Orally 2 times a day 1 capsule 12h 30 days Active Cephalexin 500 mg Orally 3 times a day 1 capsule 8h 24 Feb, 2018 Feb, 7 days Active Zofran 8 MG Orally every 8 hours, PRN 1 tablet Jun, 3 days Active Calcium 600 MG Active Proventil HFA 90 mcg/actuation 2 puffs by Inhalation route 4 times per day PRN May, Active Omeprazole 40 mg Orally Once a day TAKE ONE (1) CAPSULE BY MOUTH ONCE DAILY 24h 30 days Active Symbicort 160-4.5 MCG/ACT Inhalation Twice a day 1 puffs 12h 11 May, 2015 Jun, 30 days Active RESULTS No Results PROCEDURES [...]
[2018-04-11] MEDS ORDERED: diphenhydrAMINE 25 MG TAB (BENADRYL) PO ONE (21:15)
--- NOTE | 2018-04-11 21:24 | ED Headache ---
General Chief Complaint: Head/Cervical Problems Stated Complaint: HEADACHE,VISION BLURRY History of Present Illness Date Seen by Provider: Apr 11, 2018 Time Seen by Provider: 21:00 Initial Comments 57-year-old female presents for headache. She also has photophobia in her right eye. She is blind in her left eye. She states that her symptoms began just prior to arrival. 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 She does not report a history of regular headaches. She did take Tylenol earlier today, for general discomfort. Timing/Duration: 1 hour Prior Headaches/Recent Trauma: no recent headache/trauma Associated Symptoms: denies symptoms Allergies and Home Medications Allergies Coded Allergies: NSAIDS (Non-Steroidal Anti-Inflamma (Verified Allergy, Unknown, 11/11/12) Sulfa (Sulfonamide Antibiotics) (Verified Allergy, Unknown, 11/11/12) acetaminophen (Unverified Allergy, Unknown, 03/26/14) niacin (Verified Allergy, Unknown, 09/19/11) Uncoded Allergies: IV CONTRAST (Allergy, Unknown, 11/11/12) Home Medications Amlodipine Besylate 10 Mg Tablet, 10 MG PO DAILY Prescribed by: MAKENZIE CHAPMAN on 02/08/18 1119 Ascorbate Calcium 500 Mg Tablet, 500 MG PO DAILY, (Reported) Atorvastatin Calcium 10 Mg Tablet, 10 MG PO HS, (Reported) Calcium Carbonate/Vitamin D3 1 Each Tablet, 1 TAB PO DAILY, (Reported) Ciprofloxacin HCl 500 Mg Tablet, 500 MG PO BID, (Reported) 10 DAY SUPPLY FILLED 02-06-18 Fluticasone Propionate 16 Gm Hydro.susp, 1 SPRAY NS HS, (Reported) Gabapentin 100 Mg Capsule, 100 MG PO BID, (Reported) Hydrochlorothiazide 12.5 Mg Tablet, 12.5 MG PO DAILY, (Reported) Lisinopril 20 Mg Tablet, 20 MG PO DAILY, (Reported) Metoprolol Succinate 200 Mg Tab.er.24h, 200 MG PO HS, (Reported) Multivitamin 1 Each Tablet, 1 TAB PO HS, (Reported) Multivits,Stress Formula 1 Each Tablet, 1 TAB PO HS, (Reported) Patient Home Medication List Home Medication List Reviewed: Yes Review of Systems Review of Systems Constitutional: no symptoms reported, see HPI Eyes: See HPI, Blindness (left eye), Photophobia Psychiatric/Neurological: Headache All Other Systems Reviewed Negative Unless Noted: Yes Past Hmpywtn-Sxjdvo-Fejpiv Hx Past Med/Social Hx: Reviewed Nursing Past Med/Soc Hx Patient Social History Alcohol Use: Denies Use Number of Drinks Today: Alcohol Beverage of Choice: Wine Recreational Drug Use: No Smoking Status: Former Smoker Type Used: Cigarettes Former Smoker, Quit: Feb 08, 2011 Recent Foreign Travel: No Contact w/Someone Who Travel: No Recent Hopitalizations: No Immunizations Up To Date Tetanus Booster (TDap): Less than 5yrs Date of Pneumonia Vaccine: Jan 05, 2011 Date of Influenza Vaccine: Feb 04, 2017 Seasonal Allergies Seasonal Allergies: No Past Medical History Surgeries: Yes Adenoidectomy, Cardiac, Ear Surgery, Tonsillectomy, Vascular Surgery Respiratory: Yes Asthma, COPD Cardiac: Yes Aneurysm, Coronary Artery Disease, High Cholesterol, Hypertension, Peripheral Vascular Neurological: Yes Neuropathy 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 No Pertinent Family Hx Physical Exam Vital Signs Vital Signs - First Documented 04/11/18 20:59 Temp 97.9 Pulse 77 Resp 20 B/P (MAP) 201/99 (133) Pulse Ox 96 O2 Delivery Room Air Capillary Refill : Height, Weight, BMI Height: 5'5.00" Weight: 288lbs. 7.0oz. 130.067385mu; 48.0 BMI Method:Stated General Appearance: WD/WN, no apparent distress HEENT: normal ENT inspection, TMs normal, pharynx normal Neck: non-tender, full range of motion, supple, normal inspection Cardiovascular: normal peripheral pulses, regular rate, rhythm Gastrointestinal: normal bowel sounds, non tender, soft Extremities: pedal edema (2+) Psychiatric: alert, oriented x 3, depressed affect Crainal Nerves: normal hearing, normal speech, PERRL Coordination/Gait: normal finger to nose, normal gait Motor/Sensory: no motor deficit, no sensory deficit, no pronator drift Skin: normal color, warm/dry Progress/Results/Core Measures Results/Orders My Orders Orders - 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,[employer] 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 Tramadol Tablet (Ultram Tablet) (04/11/18 21:15) Diphenhydramine Tablet (Benadryl Tablet) (04/11/18 21:15) Medications Given in ED Current Medications Medications Dose Ordered Sig/Aramis Route Start Time Stop Time Status Last Admin Dose Admin Diphenhydramine HCl 25 mg ONCE ONCE PO 04/11/18 21:15 04/11/18 21:17 DC 04/11/18 21:21 25 MG Vital Signs/I&O 04/11/18 04/11/18 20:59 22:24 Temp 97.9 98.7 Pulse 77 66 Resp 20 15 B/P (MAP) 201/99 (133) 147/103 (118) Pulse Ox 96 93 O2 Delivery Room Air Room Air Progress Progress Note : Time: 21:00 Progress Note Patient seen and evaluated, we'll give tramadol 50 mg and Benadryl 25 mg orally for pain. Patient denies nausea at this time. 2149 patient reports improvement in her headache, blood pressure 160/80. Discharge instructions and return precautions reviewed with her. Departure Impression Primary Impression: Headache Qualified Codes: G44.201 - Tension-type headache, unspecified, intractable Additional Impression: Benign hypertension Disposition: HOME, SELF-CARE Condition: Improved Departure-Patient Inst. Decision time for Depature: 22:00 Referrals: WHIT LOVELL DO (PCP/Family) Primary Care Physician Patient Instructions: Headache, Adult (DC) Add. Discharge Instructions: Continue taking your home medication as prescribed. Take Tylenol 650 mg every 6 hours for headache. Follow-up with your primary care provider tomorrow if symptoms are not improving or worsen. Continue to monitor your blood pressure, if it remains elevated see your primary care provider. Return to the emergency department for new, urgent health care problems. All discharge instructions reviewed with patient and/or family. Voiced understanding. Work/School Note: Work Release Form Date Seen in the Emergency Department: Apr 11, 2018 Return to Work: Apr 13, 2018 Restrictions: No Restrictions ADALIDAPPLE Apr 11, 2018 21:23
--- OUTSIDE RECORDS SUMMARY | 2018-04-11 21:27 | XMS REPORT | Continuity of Care Document ---
Author Author [facility] Address Unknown Phone Unavailable Allergies Active Description Code Type Severity Reaction Onset Reported/Identified Relationship to Patient Clinical Status Yes niacin Drug Allergy N/A N/A 12/19/2010 Yes niacin Drug Allergy 12/19/2010 Yes Tekturna 150 mg tablet Drug Allergy N/A N/A 08/10/2011 Yes Tekturna 150 mg tablet Drug Allergy 08/10/2011 Yes niacin [id number] Drug Allergy Unknown N/A 09/19/2011 Yes IV CONTRAST IV CONTRAST Unknown N/A 11/11/2012 Yes NSAIDS (Non-Steroidal Anti-Inflamma [id number] Drug Allergy Unknown N/A 12/2012 Yes Sulfa (Sulfonamide Antibiotics) [id number] Drug Allergy Unknown N/A 2012 Yes Bactrim Drug Allergy N/A N/A 11/15/2012 Yes NSAIDS (Non-Steroidal Anti-Inflammatory Drug) Drug Allergy N/A N/A 2012 Yes Iodinated Contrast Media - IV Dye Drug Allergy N/A N/A 10/30/2013 Yes acetaminophen [id number] Drug Allergy Unknown N/A 03/26/2014 Yes Macrobid [...] WHIT K 724.2 lower back pain 03/20/2008 JONH DIEGO MORE S 724.2 lower back pain [...] K 401.1 ESSENTIAL HYPERTENSION BENIGN 04/07/2008 MADL PRE OWNED SALES CONSULTANT, PHUC L 276.8 Hypokalemia 04/07/2008 MADL PRE OWNED SALES CONSULTANT, PHUC L 401.1 ESSENTIAL HYPERTENSION BENIGN 04/07/2008 CHELA PRE OWNED SALES CONSULTANT, PAVAN R 276.8 Hypokalemia 04/07/2008 CHELA PRE OWNED SALES CONSULTANT, PAVAN R 401.1 ESSENTIAL HYPERTENSION BENIGN 04/07/2008 LOVELL DO, WHIT K 276.8 Hypokalemia 04/07/2008 LOVELL DO, WHIT K 401.1 ESSENTIAL HYPERTENSION BENIGN 04/07/2008 JOHN PRE OWNED SALES CONSULTANT, MORE S 276.8 Hypokalemia 04/07/2008 JOHNMARIELOS DIEGO, MORE S 401.1 ESSENTIAL HYPERTENSION BENIGN 04/07/2008 OSEAS FELIX MD N 276.8 Hypokalemia 04/07/2008 OSEAS FELIX MD N 401.1 ESSENTIAL HYPERTENSION BENIGN 04/07/2008 OSEAS FELIX MD N 276.8 Hypokalemia 04/07/2008 OSEAS FELIX MD N 401.1 ESSENTIAL HYPERTENSION BENIGN 04/07/2008 LOVELL DO, WHIT K 276.8 Hypokalemia 04/07/2008 LOVELL DO, WHIT K 401.1 ESSENTIAL HYPERTENSION BENIGN 04/07/2008 SHAWNALluvia PRE OWNED SALES CONSULTANT, PHUC L 276.8 Hypokalemia 04/07/2008 ELOISA PRE OWNED SALES CONSULTANT, PHUC L 401.1 ESSENTIAL HYPERTENSION BENIGN 04/28/2008 [...] NAS TORRESWHIT K 782.1 Rash 04/28/2008 MADL PRE OWNED SALES CONSULTANT, PHUC L 782.1 Rash 09/18/2008 SHEA LOVELL [...] APRNA L 401.9 Essential Hypertension 09/18/2008 MADL PRE OWNED SALES CONSULTANT, PHUC L 461.2 Sinusitis Acute Ethmoidal 09/18/2008 ROBIN YORK APRNINA R 401.9 Essential Hypertension 09/18/2008 CHELA PRE OWNED SALES CONSULTANT, PAVAN R 461.2 Sinusitis Acute Ethmoidal 09/18/2008 LOVELL DO WHIT K 401.9 Essential Hypertension 09/18/2008 LOVELL DO, WHIT K 461.2 Sinusitis Acute Ethmoidal 09/18/2008 JOHN PRE OWNED SALES CONSULTANT, MORE S 401.9 Essential Hypertension 09/18/2008 JOHNMARIELOS [...] Tract Infection Site Not Specified 12/11/2008 MADLluvia PRE OWNED SALES CONSULTANTWENDY LakhaniA L 599.0 Urinary Tract Infection Site [...] ABUSE OF DRUGS, TOBACCO USE DISORDER 07/07/2009 OSESA FELIX MD V58.69 LONG-TERM (CURRENT) USE OF [...] DO, WHIT K 782.3 Edema 09/20/2009 MADL PRE OWNED SALES CONSULTANT, PHUC L 782.3 Edema 09/20/2009 CHELA PRE OWNED SALES CONSULTANT, PAVAN R 782.3 Edema 09/20/2009 LOVELL DO, WHIT K 782.3 Edema 09/20/2009 JOHN PRE OWNED SALES CONSULTANT, MORE S 782.3 Edema 09/20/2009 OSEAS FELIX MD 782.3 Edema 09/20/2009 OSEAS FELIX MD 782.3 Edema 09/20/2009 LOVELL DO, WHIT K 782.3 Edema 09/20/2009 MADL PRE OWNED SALES CONSULTANT, PHUC L 782.3 Edema 12/29/2009 LOVELL DO, [...] DO, WHIT K 786.2 Cough 12/29/2009 MADL PRE OWNED SALES CONSULTANT, PHUC L 486 Pneumonia Unspecified 12/29/2009 MADL PRE OWNED SALES CONSULTANT, PHUC L 786.2 Cough 12/29/2009 CHELA PRE OWNED SALES CONSULTANT, PAVAN R 486 Pneumonia Unspecified 12/29/2009 CHELA PRE OWNED SALES CONSULTANT, PAVAN R 786.2 Cough 12/29/2009 NAS TORRES, WHIT K 486 Pneumonia Unspecified 12/29/2009 NAS TORRES, WHIT K 786.2 Cough 12/29/2009 JOHN PRE OWNED SALES CONSULTANT, MORE S 486 Pneumonia Unspecified 12/29/2009 JOHN PRE OWNED SALES CONSULTANT, MORE S 786.2 Cough 12/29/2009 ELVIRA CORREIA, OSEAS N 486 Pneumonia Unspecified 12/29/2009 ELVIRA CORREIA, OSEAS N 786.2 Cough 12/29/2009 ELVIRA CORREIA, OSEAS N 486 Pneumonia Unspecified 12/29/2009 ELVIRA CORREIA, OSEAS N 786.2 Cough 12/29/2009 NAS TORRES, WHIT K 486 Pneumonia Unspecified 12/29/2009 LOVELL , WHIT K 786.2 Cough 12/29/2009 MADL PRE OWNED SALES CONSULTANT, PHUC L 486 Pneumonia Unspecified 12/29/2009 MADL PRE OWNED SALES CONSULTANT, PHUC L 786.2 Cough 01/18/2010 Ot 272.4 [...] DO K V04.81 Flu Shot 03/16/2010 MADL PRE OWNED SALES CONSULTANT, PHUC L 466.0 Bronchitis, Acute 03/16/2010 MADL PRE OWNED SALES CONSULTANT, PHUC L V03.82 Pcv7 Pcv13 Pcv23, Streptococcus Pneumoniae [pneumococcus] 03/16/2010 MADL PRE OWNED SALES CONSULTANT, PHUC L V04.81 Flu Shot 03/16/2010 CHELA PRE OWNED SALES CONSULTANT, PAVAN R 466.0 Bronchitis, Acute 03/16/2010 CHELA PRE OWNED SALES CONSULTANT, PAVAN R V03.82 Pcv7 Pcv13 Pcv23, Streptococcus Pneumoniae [pneumococcus] 03/16/2010 CHELA PRE OWNED SALES CONSULTANT, PAVAN R V04.81 Flu Shot 03/16/2010 NAS TORRESSHEAA K 466.0 Bronchitis, Acute 03/16/2010 NAS TORRES WHIT K V03.82 Pcv7 Pcv13 Pcv23, Streptococcus Pneumoniae [pneumococcus] 03/16/2010 LOVELL DO WHIT K V04.81 Flu Shot 03/16/2010 JOHN PRE OWNED SALES CONSULTANT MORE S 466.0 Bronchitis, Acute 03/16/2010 JOHN PRE OWNED SALES CONSULTANT, MORE S V03.82 Pcv7 Pcv13 Pcv23, Streptococcus [...] DOA K V04.81 Flu Shot 03/16/2010 MADL PRE OWNED SALES CONSULTANT, PHUC L 466.0 Bronchitis, Acute 03/16/2010 MADL PRE OWNED SALES CONSULTANT, PHUC L V03.82 Pcv7 Pcv13 Pcv23, Streptococcus Pneumoniae [pneumococcus] 03/16/2010 MADL PRE OWNED SALES CONSULTANT, PHUC L V04.81 Flu Shot 05/15/2010 Ot [...] LOPEZ APRN S 724.3 SCIATICA 12/19/2010 OSEAS FEILX MD N 724.3 SCIATICA 12/19/2010 OSEAS FELIX [...] HYPERTENSION 03/17/2011 Ot 414.01 CORONARY ATHEROSCLEROSIS OF [place] CORON 03/17/2011 Ot 440.1 RENAL ARTERY ATHEROSCLER [...] TORRES WHIT K 414.00 CAD 04/04/2011 MADL PRE OWNED SALES CONSULTANT, PHUC L 401.0 HYPERTENSION MALIGNANT ESSENTIAL 04/04/2011 MADL PRE OWNED SALES CONSULTANT, PHUC L 414.00 CAD 04/04/2011 CHELA PRE OWNED SALES CONSULTANT PAVAN R 401.0 HYPERTENSION MALIGNANT ESSENTIAL 04/04/2011 CHELA PRE OWNED SALES CONSULTANT, PAVAN R 414.00 CAD 04/04/2011 LOVELL DO WHIT K 401.0 HYPERTENSION MALIGNANT ESSENTIAL 04/04/2011 LOVELL DO WHIT K 414.00 CAD 04/04/2011 JOHN DIEGO MORE S 401.0 HYPERTENSION MALIGNANT ESSENTIAL 04/04/2011 JOHN PRE OWNED SALES CONSULTANT, MORE S 414.00 CAD 04/04/2011 OSEAS FELXI MD N 401.0 HYPERTENSION MALIGNANT ESSENTIAL 04/04/2011 OSEAS FELIX MD N 414.00 CAD 04/04/2011 OSEAS FELIX MD N 401.0 HYPERTENSION MALIGNANT ESSENTIAL 04/04/2011 OSEAS FELIX MD N 414.00 CAD 04/04/2011 WHIT LOVELL DO K 401.0 HYPERTENSION MALIGNANT ESSENTIAL 04/04/2011 WHIT LOVELL DO K 414.00 CAD 04/04/2011 MADL PRE OWNED SALES CONSULTANT, PHUC L 401.0 HYPERTENSION MALIGNANT ESSENTIAL 04/04/2011 MADL PRE OWNED SALES CONSULTANT, PHUC L 414.00 CAD 06/01/2011 WHIT LOVELL [...] The Teeth And Supporting Structures 06/01/2011 MADL PRE OWNED SALES CONSULTANTWENDYA L 465.9 Acute Upper Respiratory Infections Of Unspecified Site 06/01/2011 MADL PRE OWNED SALES CONSULTANTWENDYA L 525.9 Unspecified Disorder Of The Teeth And Supporting Structures 06/01/2011 CHELA PRE OWNED SALES CONSULTANT, PAVAN R 465.9 Acute Upper Respiratory Infections Of Unspecified Site 06/01/2011 CHELA PRE OWNED SALES CONSULTANT, PAVAN R 525.9 Unspecified Disorder Of The [...] The Teeth And Supporting Structures 06/01/2011 ELOISA PRE OWNED SALES CONSULTANTPHUC Lakhani L 465.9 Acute Upper Respiratory Infections [...] DO K 079.99 Viral Syndrome 06/30/2011 ELOISA PRE OWNED SALES CONSULTANTPHUC Lakhani L 079.99 Viral Syndrome 06/30/2011 PAVAN [...] DO 585.9 CHRONIC KIDNEY DISEASE UNSPECIFIED 08/08/2011 [facility] AMIN APRN 585.9 CHRONIC KIDNEY DISEASE UNSPECIFIED 09/07/2011 Ot 473.9 CHRONIC SINUSITIS NOS 09/07/2011 Ot 478.19 OTHER DISEASE OF NASAL CAVITY AND SINUSE 09/21/2011 Ot 305.1 TOBACCO USE DISORDER 09/21/2011 Ot 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29 Abnormal Glucose 10/26/2011 JOHN PRE OWNED SALES CONSULTANT, MORE S 785.0 Tachycardia Unspecified 10/26/2011 JOHN PRE OWNED SALES CONSULTANT, MORE S 790.29 Abnormal Glucose 10/26/2011 OSEAS FELIX MD N 785.0 Tachycardia Unspecified 10/26/2011 OSEAS FELIX MD N 790.29 Abnormal Glucose 10/26/2011 OSEAS FELIX MD N 785.0 Tachycardia Unspecified 10/26/2011 OSEAS FELIX MD N 790.29 Abnormal Glucose 10/26/2011 LOVELL DO, WHIT K 785.0 Tachycardia Unspecified 10/26/2011 LOVELL DO, WHIT K 790.29 Abnormal Glucose 10/26/2011 MADL PRE OWNED SALES CONSULTANT, PHUC L 785.0 Tachycardia Unspecified 10/26/2011 MADL PRE OWNED SALES CONSULTANT, PHUC L 790.29 Abnormal Glucose 11/02/2011 NAS [...] Acute 04/02/2012 465.9 Upper Respiratory Infection 04/02/2012 EVRA SHORE PA-C 462 Pharyngitis Acute 04/02/2012 VERA [...] K 465.9 Upper Respiratory Infection 04/02/2012 MADL PRE OWNED SALES CONSULTANT, PHUC L 462 Pharyngitis Acute 04/02/2012 SHAWNAL PRE OWNED SALES CONSULTANT, PHUC L 465.9 Upper Respiratory Infection 04/02/2012 CHELA PRE OWNED SALES CONSULTANT, PAVAN R 462 Pharyngitis Acute 04/02/2012 CHELA PRE OWNED SALES CONSULTANT, PAVAN R 465.9 Upper Respiratory Infection 04/02/2012 [...] PHUC L 462 Pharyngitis Acute 04/02/2012 ELOISA PRE OWNED SALES CONSULTANT, PHUC L 465.9 Upper Respiratory Infection 08/06/2012 [...] 443.9 PERIPHERAL VASCULAR DISEASE UNSPECIFIED 10/30/2013 MADL PRE OWNED SALES CONSULTANT, PHUC L 443.9 PERIPHERAL VASCULAR DISEASE UNSPECIFIED [...] 790.6 LIVER FUNCTION TEST, ABNORMAL 01/15/2014 MADL PRE OWNED SALES CONSULTANT, PHUC L 272.1 HYPERTRIGLYCERIDEMIA 01/15/2014 MADL PRE OWNED SALES CONSULTANT, PHUC L 285.21 ANEMIA OF CHRONIC KIDNEY DISEASE 01/15/2014 MADL PRE OWNED SALES CONSULTANT, PHUC L 790.6 LIVER FUNCTION TEST, ABNORMAL [...] LATE EFF ACCIDENT NEC 01/26/2014 МАРИЯ MIRZA PRE OWNED SALES CONSULTANT Ot 682.7 CELLULITIS OF FOOT 01/26/2014 МАРИЯ MIRZA APRN Ot 906.1 LATE EFF OPEN WND EXTREM 01/26/2014 МАРИЯ MIRZA PRE OWNED SALES CONSULTANT Ot E929.8 LATE EFF ACCIDENT NEC 02/19/2014 [...] TRACT INFECTION SITE NOT SPECIFIED 06/02/2014 MADL PRE OWNED SALES CONSULTANT, PHUC L 276.1 HYPOSMOLALITY AND/OR HYPONATREMIA 06/02/2014 MADL PRE OWNED SALES CONSULTANT, PHUC L 276.51 DEHYDRATION 06/02/2014 MADL PRE OWNED SALES CONSULTANT, PHUC L 599.0 URINARY TRACT INFECTION SITE NOT SPECIFIED 07/31/2014 LOVELL DO, WHIT K 564.00 CONSTIPATION 07/31/2014 LOVELL DO, WHIT K 723.1 CERVICALGIA 07/31/2014 LOVELL , WHIT K 787.20 DYSPHAGIA UNSPECIFIED 07/31/2014 MADL PRE OWNED SALES CONSULTANT, PHUC L 564.00 CONSTIPATION 07/31/2014 MADL PRE OWNED SALES CONSULTANT, PHUC L 723.1 CERVICALGIA 07/31/2014 MADL PRE OWNED SALES CONSULTANT, PHUC L 787.20 DYSPHAGIA UNSPECIFIED 08/07/2014 Ot [...] NONINFECTIVE GASTROENTERITIS AND COLITIS 08/30/2015 МАРИЯ MIRZA PRE OWNED SALES CONSULTANT Ot K52.9 NONINFECTIVE GASTROENTERITIS AND COLITIS 11/18/2015 MADPHUC Teixeira COUNSELOR MANAGER Ot M79.604 PAIN IN RIGHT LEG 11/18/2015 MADPHUC Teixeira COUNSELOR MANAGER Ot M79.89 OTHER SPECIFIED SOFT TISSUE DISORDERS 11/18/2015 MADPHUC Teixeira COUNSELOR MANAGER Ot M79.604 PAIN IN RIGHT LEG 11/18/2015 MADPHUC Teixeira COUNSELOR MANAGER Ot M79.89 OTHER SPECIFIED SOFT TISSUE DISORDERS 11/23/2015 MADL, PHUC L COUNSELOR MANAGER Ot R07.89 OTHER CHEST PAIN 11/23/2015 MADL, PHUC L COUNSELOR MANAGER Ot R93.8 ABNORMAL FINDINGS ON DIAGNOSTIC IMAGING 11/23/2015 MADL, PHUC L COUNSELOR MANAGER Ot R07.89 OTHER CHEST PAIN 11/23/2015 MADL, PHUC L COUNSELOR MANAGER Ot R93.8 ABNORMAL FINDINGS ON DIAGNOSTIC IMAGING 12/03/2015 BRITNEY NICHOLS MD Ot M25.512 PAIN IN LEFT SHOULDER 12/03/2015 BRITNEY NICHOLS MD Ot M54.12 RADICULOPATHY, CERVICAL REGION 12/03/2015 Ot 789.00 ABDOMINAL PAIN, UNSPECIFIED SITE 12/03/2015 VREA SCOTT Ot 723.1 CERVICALGIA 12/03/2015 VERA SCOTT Ot 787.20 DYSPHAGIA, UNSPECIFIED 12/03/2015 MADL, PHUC L COUNSELOR MANAGER Ot M79.604 PAIN IN RIGHT LEG 12/03/2015 MADL, PHUC L COUNSELOR MANAGER Ot M79.89 OTHER SPECIFIED SOFT TISSUE DISORDERS 12/03/2015 MADL, PHUC L COUNSELOR MANAGER Ot R07.89 OTHER CHEST PAIN 12/03/2015 MADL, PHUC L COUNSELOR MANAGER Ot R93.8 ABNORMAL FINDINGS ON DIAGNOSTIC IMAGING 12/06/2015 BRITNEY NICHOLS MD Ot M25.512 PAIN IN LEFT SHOULDER 12/06/2015 BRITNEY NICHOLS MD Ot M54.12 RADICULOPATHY, CERVICAL REGION 02/04/2016 Ot 789.00 ABDOMINAL PAIN, UNSPECIFIED SITE 02/04/2016 VERA SCOTT Ot 723.1 CERVICALGIA 02/04/2016 VERA SCOTT Ot 787.20 DYSPHAGIA, UNSPECIFIED 02/04/2016 MADL, PHUC L COUNSELOR MANAGER Ot M79.604 PAIN IN RIGHT LEG 02/04/2016 MADL, PHUC L COUNSELOR MANAGER Ot M79.89 OTHER SPECIFIED SOFT TISSUE DISORDERS 02/04/2016 MADL, PHUC L COUNSELOR MANAGER Ot R07.89 OTHER CHEST PAIN 02/04/2016 MADL, PHUC L COUNSELOR MANAGER Ot R93.8 ABNORMAL FINDINGS ON DIAGNOSTIC IMAGING 02/04/2016 MIRZA, PETER J PRE OWNED SALES CONSULTANT Ot E11.9 TYPE 2 DIABETES MELLITUS WITHOUT COMPLIC 02/04/2016 МАРИЯ MIRZA PRE OWNED SALES CONSULTANT Ot I10 ESSENTIAL (PRIMARY) HYPERTENSION 02/04/2016 МАРИЯ MIRZA PRE OWNED SALES CONSULTANT Ot J44.9 CHRONIC OBSTRUCTIVE PULMONARY DISEASE, U 02/04/2016 МАРИЯ MIRZA PRE OWNED SALES CONSULTANT Ot M54.6 PAIN IN THORACIC SPINE 02/04/2016 МАРИЯ MIRZA PRE OWNED SALES CONSULTANT Ot Z79.899 OTHER DETENTION (CURRENT) DRUG THERAPY 02/04/2016 МАРИЯ MIRAZ PRE OWNED SALES CONSULTANT Ot Z90.5 ACQUIRED ABSENCE OF KIDNEY 02/07/2016 МАРИЯ MIRZA PRE OWNED SALES CONSULTANT Ot E11.9 TYPE 2 DIABETES MELLITUS WITHOUT COMPLIC 02/07/2016 МАРИЯ MIRZA PRE OWNED SALES CONSULTANT Ot I10 ESSENTIAL (PRIMARY) HYPERTENSION 02/07/2016 МАРИЯ MIRZA APRN Ot J44.9 CHRONIC OBSTRUCTIVE PULMONARY DISEASE, U 02/07/2016 МАРИЯ MIRZA PRE OWNED SALES CONSULTANT Ot M54.6 PAIN IN THORACIC SPINE 02/07/2016 МАРИЯ MIRZA PRE OWNED SALES CONSULTANT Ot 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 02/07/2016 МАРИЯ MIRZA PRE OWNED SALES CONSULTANT Ot Z90.5 ACQUIRED ABSENCE OF KIDNEY 04/24/2016 Ot 789.00 ABDOMINAL PAIN, UNSPECIFIED SITE 04/24/2016 VERA SCOTT Ot 723.1 CERVICALGIA 04/24/2016 VERA SCOTT Ot 787.20 DYSPHAGIA, UNSPECIFIED 04/24/2016 MADL, PHUC L COUNSELOR MANAGER Ot M79.604 PAIN IN RIGHT LEG 04/24/2016 MADL, PHUC L COUNSELOR MANAGER Ot M79.89 OTHER SPECIFIED SOFT TISSUE DISORDERS 04/24/2016 MADL, PHUC L COUNSELOR MANAGER Ot R07.89 OTHER CHEST PAIN 04/24/2016 MADL, PHUC L COUNSELOR MANAGER Ot R93.8 ABNORMAL FINDINGS ON DIAGNOSTIC IMAGING 04/24/2016 MADL, PHUC L COUNSELOR MANAGER Ot R07.89 OTHER CHEST PAIN 04/24/2016 MADL, PHUC L COUNSELOR MANAGER Ot R93.8 ABNORMAL FINDINGS ON DIAGNOSTIC IMAGING 04/24/2016 MADL, PHUC L COUNSELOR MANAGER Ot M79.604 PAIN IN RIGHT LEG 04/24/2016 MADL, PHUC L COUNSELOR MANAGER Ot M79.89 OTHER SPECIFIED SOFT TISSUE DISORDERS 04/24/2016 PHUC AMIN COUNSELOR MANAGER Ot R07.89 OTHER CHEST PAIN 04/24/2016 MADPHUC Teixeira COUNSELOR MANAGER Ot R93.8 ABNORMAL FINDINGS ON DIAGNOSTIC IMAGING 04/24/2016 PHUC AMIN COUNSELOR MANAGER Ot M79.604 PAIN IN RIGHT LEG 04/24/2016 MADPHUC Teixeira COUNSELOR MANAGER Ot M79.89 OTHER SPECIFIED SOFT TISSUE DISORDERS 04/25/2016 MADLPHUC COUNSELOR MANAGER Ot M79.604 PAIN IN RIGHT LEG 04/25/2016 MADPHUC Teixeira COUNSELOR MANAGER Ot M79.89 OTHER SPECIFIED SOFT TISSUE DISORDERS 04/25/2016 МАРИЯ MIRZA PRE OWNED SALES CONSULTANT Ot E11.9 TYPE 2 DIABETES MELLITUS WITHOUT COMPLIC 04/25/2016 МАРИЯ MIRZA APRN Ot I10 ESSENTIAL (PRIMARY) HYPERTENSION 04/25/2016 МАРИЯ MIRZA APRN Ot J44.9 CHRONIC OBSTRUCTIVE PULMONARY DISEASE, U 04/25/2016 МАРИЯ MIRZA PRE OWNED SALES CONSULTANT Ot M54.6 PAIN IN THORACIC SPINE 04/25/2016 МАРИЯ MIRZA PRE OWNED SALES CONSULTANT Ot Z79.899 OTHER DETENTION (CURRENT) DRUG THERAPY 04/25/2016 МАРИЯ MIRZA PRE OWNED SALES CONSULTANT Ot Z90.5 ACQUIRED ABSENCE OF KIDNEY 04/25/2016 PHUC AMIN COUNSELOR MANAGER Ot I70.1 ATHEROSCLEROSIS OF RENAL ARTERY 04/25/2016 MADLWENDYA L COUNSELOR MANAGER Ot I71.4 ABDOMINAL AORTIC ANEURYSM, WITHOUT RUPTU 04/25/2016 MADLWENDYA Lluvia COUNSELOR MANAGER Ot K76.0 FATTY (CHANGE OF) LIVER, NOT ELSEWHERE C 04/25/2016 MADLWENDYA L COUNSELOR MANAGER Ot R10.11 RIGHT UPPER QUADRANT PAIN 04/30/2016 MADLWENDYA Lluvia COUNSELOR MANAGER Ot I70.1 ATHEROSCLEROSIS OF RENAL ARTERY 04/30/2016 MADLYIFANPHUC L COUNSELOR MANAGER Ot I71.4 ABDOMINAL AORTIC ANEURYSM, WITHOUT RUPTU 04/30/2016 MADLYIFANPHUC L COUNSELOR MANAGER Ot K76.0 FATTY (CHANGE OF) LIVER, NOT ELSEWHERE C 04/30/2016 MADLWENDYA L COUNSELOR MANAGER Ot R10.11 RIGHT UPPER QUADRANT PAIN 05/10/2016 PHUC AMIN COUNSELOR MANAGER Ot I70.1 ATHEROSCLEROSIS OF RENAL ARTERY 05/10/2016 PHUC AMIN COUNSELOR MANAGER Ot I71.4 ABDOMINAL AORTIC ANEURYSM, WITHOUT RUPTU 05/10/2016 PHUC AMIN COUNSELOR MANAGER Ot K76.0 FATTY (CHANGE OF) LIVER, NOT ELSEWHERE C 05/10/2016 PHUC AMIN COUNSELOR MANAGER Ot R10.11 RIGHT UPPER QUADRANT PAIN 05/10/2016 PHUC AMIN COUNSELOR MANAGER Ot R07.89 OTHER CHEST PAIN 05/10/2016 PHUC AMIN COUNSELOR MANAGER Ot R93.8 ABNORMAL FINDINGS ON DIAGNOSTIC IMAGING 05/10/2016 PHUC AMIN COUNSELOR MANAGER Ot M79.604 PAIN IN RIGHT LEG 05/10/2016 PHUC AMIN COUNSELOR MANAGER Ot M79.89 OTHER SPECIFIED SOFT TISSUE DISORDERS [...] 05/11/2016 МАРИЯ MIRZA APRN Ot Z79.899 OTHER DETENTION (CURRENT) DRUG THERAPY 05/11/2016 МАРИЯ MIRZA APRN Ot Z90.5 ACQUIRED ABSENCE OF KIDNEY 05/29/2016 NAVEEN FERRARO PRE OWNED SALES CONSULTANT Ot R10.9 UNSPECIFIED ABDOMINAL PAIN 07/23/2016 МАРИЯ MIRZA APRN Ot E11.9 TYPE 2 DIABETES MELLITUS WITHOUT COMPLIC 07/23/2016 МАРИЯ MIRZA APRN Ot I10 ESSENTIAL (PRIMARY) HYPERTENSION 07/23/2016 МАРИЯ MIRZA APRN Ot J44.9 CHRONIC OBSTRUCTIVE PULMONARY DISEASE, U 07/23/2016 МАРИЯ MIRZA PRE OWNED SALES CONSULTANT Ot L23.9 ALLERGIC CONTACT DERMATITIS, UNSPECIFIED 07/23/2016 МАРИЯ MIRZA PRE OWNED SALES CONSULTANT Ot R21 RASH AND OTHER NONSPECIFIC SKIN ERUPTION 07/23/2016 МАРИЯ MIRZA PRE OWNED SALES CONSULTANT Ot Z79.899 OTHER DETENTION (CURRENT) DRUG THERAPY 07/23/2016 Ot 789.00 ABDOMINAL PAIN, UNSPECIFIED SITE 07/23/2016 VERA SCOTT Ot 723.1 CERVICALGIA 07/23/2016 VERA SCOTT Ot 787.20 DYSPHAGIA, UNSPECIFIED 07/23/2016 MADL, PHUC L COUNSELOR MANAGER Ot M79.604 PAIN IN RIGHT LEG 07/23/2016 MADL, PUHC L COUNSELOR MANAGER Ot M79.89 OTHER SPECIFIED SOFT TISSUE DISORDERS 07/23/2016 MADL, PHUC L COUNSELOR MANAGER Ot R07.89 OTHER CHEST PAIN 07/23/2016 MADL, PHUC L COUNSELOR MANAGER Ot R93.8 ABNORMAL FINDINGS ON DIAGNOSTIC IMAGING 07/23/2016 MADL, PHUC L COUNSELOR MANAGER Ot I70.1 ATHEROSCLEROSIS OF RENAL ARTERY 07/23/2016 MADL, PHUC L COUNSELOR MANAGER Ot I71.4 ABDOMINAL AORTIC ANEURYSM, WITHOUT RUPTU 07/23/2016 MADL, PHUC L COUNSELOR MANAGER Ot K76.0 FATTY (CHANGE OF) LIVER, NOT ELSEWHERE C 07/23/2016 MADL, PHUC L COUNSELOR MANAGER Ot R10.11 RIGHT UPPER QUADRANT PAIN 07/23/2016 NAVEEN FERRARO PRE OWNED SALES CONSULTANT Ot R10.9 UNSPECIFIED ABDOMINAL PAIN 07/25/2016 МАРИЯ MIRZA PRE OWNED SALES CONSULTANT Ot E11.9 TYPE 2 DIABETES MELLITUS WITHOUT COMPLIC 07/25/2016 МАРИЯ MIRZA PRE OWNED SALES CONSULTANT Ot I10 ESSENTIAL (PRIMARY) HYPERTENSION 07/25/2016 МАРИЯ MIRZA PRE OWNED SALES CONSULTANT Ot J44.9 CHRONIC OBSTRUCTIVE PULMONARY DISEASE, U 07/25/2016 МАРИЯ MIRZA PRE OWNED SALES CONSULTANT Ot L23.9 ALLERGIC CONTACT DERMATITIS, UNSPECIFIED 07/25/2016 МАРИЯ MIRZA PRE OWNED SALES CONSULTANT Ot R21 RASH AND OTHER NONSPECIFIC SKIN ERUPTION 07/25/2016 МАРИЯ MIRZA PRE OWNED SALES CONSULTANT Ot 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 02/07/2017 VERA SCOTT Ot 723.1 CERVICALGIA 02/07/2017 VERA SCOTT Ot 787.20 DYSPHAGIA, UNSPECIFIED 02/07/2017 MADPHUC Teixeira COUNSELOR MANAGER Ot M79.604 PAIN IN RIGHT LEG 02/07/2017 MADLPHUC COUNSELOR MANAGER Ot M79.89 OTHER SPECIFIED SOFT TISSUE DISORDERS 02/07/2017 MADLPHUC COUNSELOR MANAGER Ot R07.89 OTHER CHEST PAIN 02/07/2017 MADLPHUC COUNSELOR MANAGER Ot R93.8 ABNORMAL FINDINGS ON DIAGNOSTIC IMAGING 02/07/2017 MADPHUC Teixeira COUNSELOR MANAGER Ot I70.1 ATHEROSCLEROSIS OF RENAL ARTERY 02/07/2017 MADLPHUC COUNSELOR MANAGER Ot I71.4 ABDOMINAL AORTIC ANEURYSM, WITHOUT RUPTU 02/07/2017 MADLPHUC COUNSELOR MANAGER Ot K76.0 FATTY (CHANGE OF) LIVER, NOT ELSEWHERE C 02/07/2017 MADPHUC Teixeira COUNSELOR MANAGER Ot R10.11 RIGHT UPPER QUADRANT PAIN 02/07/2017 NAVEEN FERRARO PRE OWNED SALES CONSULTANT Ot R10.9 UNSPECIFIED ABDOMINAL PAIN 02/07/2017 SANDRA [...] SCOTT Ot 787.20 DYSPHAGIA, UNSPECIFIED 02/08/2017 MADLPHUC COUNSELOR MANAGER Ot M79.604 PAIN IN RIGHT LEG 02/08/2017 MADLPHUC COUNSELOR MANAGER Ot M79.89 OTHER SPECIFIED SOFT TISSUE DISORDERS 02/08/2017 MADLPHUC COUNSELOR MANAGER Ot R07.89 OTHER CHEST PAIN 02/08/2017 MADLPHUC COUNSELOR MANAGER Ot R93.8 ABNORMAL FINDINGS ON DIAGNOSTIC IMAGING 02/08/2017 MADLPHUC COUNSELOR MANAGER Ot I70.1 ATHEROSCLEROSIS OF RENAL ARTERY 02/08/2017 MADLPHUC COUNSELOR MANAGER Ot I71.4 ABDOMINAL AORTIC ANEURYSM, WITHOUT RUPTU 02/08/2017 MADLPHUC COUNSELOR MANAGER Ot K76.0 FATTY (CHANGE OF) LIVER, NOT ELSEWHERE C 02/08/2017 MADLPHUC COUNSELOR MANAGER Ot R10.11 RIGHT UPPER QUADRANT PAIN 02/08/2017 [...] E11.22 TYPE 2 DIABETES MELLITUS W DIABETIC [employer] COMMERCE 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 03/06/2017 ADARSH DO, STANLEY K Ot E78.00 [...] E11.22 TYPE 2 DIABETES MELLITUS W DIABETIC [employer]ER[employer] CONSULTANT 03/12/2017 ADARSH DO, STANLEY K Ot E78.00 [...] MD, Ot I25.10 ATHSCL HEART DISEASE OF [place] CORONARY 08/29/2017 MAKENZIE CHAPMAN MD Ot I34.0 [...] MD Ot I25.10 ATHSCL HEART DISEASE OF [place] CORONARY 09/03/2017 MAKENZIE CHAPMAN MD Ot I34.0 [...] MD Ot I25.10 ATHSCL HEART DISEASE OF [place] CORONARY 09/12/2017 MAKENZIE CHAPMAN MD Ot I34.0 [...] AND OTH DI 09/12/2017 ARI CORREIA, MAKENZIE Tennille Ot Z95.820 PERIPHERAL VASCULAR ANGIOPLASTY STATUS W 02/08/2018 MARYBETH REYNOSO DO Ot E11.40 TYPE 2 DIABETES MELLITUS WITH DIABETIC N 02/08/2018 MARYBETH REYNOSO DO Ot E78.5 HYPERLIPIDEMIA, UNSPECIFIED 02/08/2018 MARYBETH REYNOSO DO Ot F41.9 ANXIETY DISORDER, UNSPECIFIED 02/08/2018 MARYBETH REYNOSO DO Ot H54.40 BLINDNESS, ONE EYE, UNSPECIFIED EYE 02/08/2018 MAYRBETH REYNOSO DO Ot I12.9 HYPERTENSIVE CHRONIC KIDNEY DISEASE W ST 02/08/2018 MARYBETH REYNOSO DO Ot I25.10 ATHSCL HEART DISEASE OF [place] CORONARY 02/08/2018 MARYBETH REYNOSO DO Ot I70.1 ATHEROSCLEROSIS OF RENAL ARTERY 02/08/2018 MARYBETH REYNOSO DO Ot I71.4 ABDOMINAL AORTIC ANEURYSM, WITHOUT RUPTU 02/08/2018 MARYBETH REYNOSO DO Ot J44.9 CHRONIC OBSTRUCTIVE PULMONARY DISEASE, U 02/08/2018 MARYBETH REYNOSO DO Ot M54.9 DORSALGIA, UNSPECIFIED 02/08/2018 MARYBETH REYNOSO DO Ot N18.3 CHRONIC KIDNEY DISEASE, STAGE 3 (MODERAT 02/08/2018 MARYBETH REYNOSO DO Ot R07.89 OTHER CHEST PAIN 02/08/2018 MARYBETH REYNOSO DO Ot R32 UNSPECIFIED URINARY INCONTINENCE 02/08/2018 MARYBETH REYNOSO DO Ot 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 02/08/2018 MARYBETH REYNOSO DO Ot Z87.891 PERSONAL HISTORY OF NICOTINE DEPENDENCE 02/08/2018 MARYBETH REYNOSO DO Ot Z91.19 PATIENT'S NONCOMPLIANCE W [facility] MEDICAL TR 02/08/2018 MARYBETH REYNOSO DO Ot E11.40 TYPE 2 DIABETES MELLITUS WITH DIABETIC N 02/08/2018 MARYBETH REYNOSO DO Ot E78.5 HYPERLIPIDEMIA, UNSPECIFIED 02/08/2018 BARKURTIS DOMARYBETH Ot F41.9 ANXIETY DISORDER, UNSPECIFIED 02/08/2018 MARYBETH REYNOSO DO Ot H54.40 BLINDNESS, ONE EYE, UNSPECIFIED EYE 02/08/2018 MARYBETH REYNOSO DO Ot I12.9 HYPERTENSIVE CHRONIC KIDNEY DISEASE W ST 02/08/2018 MARYBETH REYNOSO DO Ot I25.10 ATHSCL HEART DISEASE OF [place] CORONARY 02/08/2018 MARYBETH REYNOSO DO Ot I70.1 ATHEROSCLEROSIS OF RENAL ARTERY 02/08/2018 MARYBETH REYNOSO DO Ot I71.4 ABDOMINAL AORTIC ANEURYSM, WITHOUT RUPTU 02/08/2018 MARYBETH REYNOSO DO Ot J44.9 CHRONIC OBSTRUCTIVE PULMONARY DISEASE, U 02/08/2018 MARYBETH REYNOSO DO Ot M54.9 DORSALGIA, UNSPECIFIED 02/08/2018 MARYBETH REYNOSO DO Ot N18.3 CHRONIC KIDNEY DISEASE, STAGE 3 (MODERAT 02/08/2018 MARYBETH REYNOSO DO Ot R07.89 OTHER CHEST PAIN 02/08/2018 MARYBETH REYNOSO DO Ot R32 UNSPECIFIED URINARY INCONTINENCE 02/08/2018 MARYBETH REYNOSO DO Ot 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 02/08/2018 MARYBETH REYNOSO DO Ot Z87.891 PERSONAL HISTORY OF NICOTINE DEPENDENCE 02/08/2018 MARYBETH REYNOSO DO Ot Z91.19 PATIENT'S NONCOMPLIANCE W [facility] MEDICAL TR 02/15/2018 MARYBETH REYNOSO DO Ot E11.40 TYPE 2 DIABETES MELLITUS WITH DIABETIC N 02/15/2018 MARYBETH REYNOSO DO Ot E78.5 HYPERLIPIDEMIA, UNSPECIFIED 02/15/2018 MARYBETH REYNOSO DO Ot F41.9 ANXIETY DISORDER, UNSPECIFIED 02/15/2018 MARYBETH REYNOSO DO Ot H54.40 BLINDNESS, ONE EYE, UNSPECIFIED EYE 02/15/2018 MARYBETH REYNOSO DO Ot I12.9 HYPERTENSIVE CHRONIC KIDNEY DISEASE W ST 02/15/2018 EDGARDO TORRESMARYBETH Ot I25.10 ATHSCL HEART DISEASE OF [place] CORONARY 02/15/2018 EDGARDO MARYBETH TORRES Ot I70.1 ATHEROSCLEROSIS OF RENAL ARTERY 02/15/2018 EDGARDO BOAZ TORRESARERyan Hua Ot I71.4 ABDOMINAL AORTIC ANEURYSM, WITHOUT RUPTU 02/15/2018 EDGARDO MARYBETH TORRES Ot J44.9 CHRONIC OBSTRUCTIVE PULMONARY DISEASE, U 02/15/2018 EDGARDO MARYBETH TORRES Ot M54.9 DORSALGIA, UNSPECIFIED 02/15/2018 EDGARDO TORRESBOAZMARYBETH E Ot N18.3 CHRONIC KIDNEY DISEASE, STAGE 3 (MODERAT 02/15/2018 EDGARDO TORRESMARYBETH Ot R07.89 OTHER CHEST PAIN 02/15/2018 EDGARDO TORRESMARYBETH Ot R32 UNSPECIFIED URINARY INCONTINENCE 02/15/2018 EDGARDO MARYBETH TORRES Ot Z79.899 OTHER DETENTION (CURRENT) DRUG THERAPY 02/15/2018 EDGARDO DO MARYBETH E Ot Z87.891 PERSONAL HISTORY OF NICOTINE DEPENDENCE 02/15/2018 EDGARDO TORRES MARYBETH E Ot Z91.19 PATIENT'S NONCOMPLIANCE W [facility] MEDICAL TR Procedures Code Description Performed By Performed On 00.40 PROCEDURE ON SINGLE VESSEL 03/16/2011 00.46 INSERTION OF TWO VASCULAR STENTS 03/16/2011 39.50 ANGIOPLASTY OF OTHER NON- CORONARY VESSEL 03/16/2011 39.90 INSEJ [id number] PERIPHERAL NON-CO 03/16/2011 88.42 CONTRAST AORTOGRAM 03/16/2011 88.45 CONTRAST RENAL ARTERIOGR 03/16/2011 21368 STREP A (IN-HOUSE) 04/02/2012 44980 ROUTINE VENIPUNCTURE 04/26/2012 24690 CBC 04/26/2012 31564 RENAL PROFILE 04/27/2012 [id number] GFR CALC (RESULT ONLY) 04/27/2012 28396 TSH 04/27/2012 23858 A1C (RML) 04/27/2012 Nephrolog Stewart, Gabi 05/29/2012 56285 ROUTINE VENIPUNCTURE 08/06/2012 6764000 GFR CALC (RESULT ONLY) 08/07/2012 35027 RENAL PROFILE 08/07/2012 36794 CBC 08/07/2012 CARDIOLOG [place] 10/30/2013 99804 CBC 01/14/2014 [id number] GFR CALC (RESULT ONLY) 01/14/2014 93173 BMP 01/14/2014 07893 LIPID PANEL 01/14/2014 83048 LIVER PANEL (LFT) 01/14/2014 88036 TSH 01/14/2014 06607 A1C (RML) 01/14/2014 74422 ROUTINE VENIPUNCTURE 01/15/2014 67408 THERAPUTIC INJ SQ/IM 01/24/2014 J0696 ROCEPHIN INJ 1 g 01/24/2014 75863 ROUTINE VENIPUNCTURE 07/31/2014 69352 STREP A (IN-HOUSE) 07/31/2014 31303 MONO TEST (IN-HOUSE) 07/31/2014 14716 BARIUM SWALLOW XRAY MODIFIED 07/31/2014 32213 CMP 07/31/2014 71807 CBC 07/31/2014 Results Test Result Range Complete [...] culture - 02/07/17 20:35 Bacterial urine culture [id number] NRG COLONY COUNT >100,000/ML NRG FTX;REPORTABLE SENSITIVITY [...] culture - 03/06/17 21:55 Bacterial urine culture [id number] NRG COLONY COUNT >100,000/ML NR FTX;REPORTABLE SENSITIVITY REPORTED AT 1502, 1117 [facility] URINE CULTURE RESULTS PLUS [facility] Bacterial susceptibility panel - 03/06/17 21:55 Gentamicin [...] susceptibility test by minimum inhibitory concentration - [facility] Complete blood count (CBC) with automated white [...] 02/08/18 02:20 Myoglobin, serum 75.0 ng/mL 10.0-92.0 Serum or plasma troponin i.cardiac measurement (mass/volume) - 02/08/18 09:34 Serum or plasma troponin i.cardiac measurement (mass/volume) < ng/ mL <0.30 Myoglobin, serum - 02/08/18 09:34 Myoglobin, serum 83.5 ng/mL 10.0-92.0 Encounters ACCT No. Visit Date/Time Discharge Status Pt. Type Provider Facility Loc./Unit Complaint [id number] 08/29/2014 13:52:00 08/29/2014 23:59:59 [facility] Outpatient PHUC AMIN APRN [id number] 07/31/2014 10:41:00 07/31/2014 23:59:59 CLS Outpatient WHIT LOVELL DO [id number] 06/15/2014 08:48:00 06/15/2014 23:59:59 CLS Outpatient OSEAS FELIX MD [id number] 05/22/2014 16:17:00 05/22/2014 23:59:59 CLS Outpatient OSEAS FELIX MD [id number] 01/24/2014 12:23:00 01/24/2014 23:59:59 CLS Outpatient MORE LOPEZ APRN [id number] 01/14/2014 08:55:00 01/14/2014 23:59:59 CLS Outpatient WHIT LOVELL DO [id number] 10/30/2013 11:03:00 10/30/2013 23:59:59 CLS Outpatient PAVAN YORK APRN [id number] 10/08/2013 15:16:00 10/08/2013 23:59:59 CLS Outpatient PHUC AMIN APRN [id number] 06/30/2013 16:43:00 06/30/2013 23:59:59 CLS Outpatient WHIT LOVELL DO [id number] 06/11/2013 15:18:00 06/11/2013 23:59:59 CLS Outpatient ELVIRA CORREIA, OSEAS Lakhani [id number] 12/05/2012 13:32:00 12/05/2012 23:59:59 CLS Outpatient REBEL SOARES MD [id number] 08/07/2012 10:44:00 08/07/2012 23:59:59 CLS Outpatient VERA SHORE PA-C [id number] 08/06/2012 16:50:00 08/06/2012 23:59:59 CLS Outpatient [id number] 04/26/2012 15:04:00 04/26/2012 23:59:59 CLS Outpatient WHIT LOVELL DO [id number] 04/02/2012 11:58:00 04/02/2012 23:59:59 CLS Outpatient [id number] 04/02/2012 11:58:00 04/02/2012 23:59:59 CLS Outpatient WHIT LOVELL DO [id number] 08/30/2012 14:13:00 Document Registration [id number] 08/26/2012 00:00:00 Document Registration [id number] 03/30/2016 07:05:00 Document Registration [id number] 07/21/2016 07:06:00 Document Registration [id number] 12/07/2016 08:36:00 Document Registration [id number] 05/06/2016 08:35:00 Document Registration [id number] 01/18/2017 08:41:00 Document Registration [id number] 04/05/2018 16:00:00 04/05/2018 23:59:59 CLS Outpatient MARKUS BALDWIN [facility] [id number] 09/14/2017 15:00:00 Document Registration [id number] 02/08/2018 04:20:00 02/08/2018 15:56:00 DIS Outpatient MILESSHAHNAZ TORRES MARYBETH Javid [facility] CATH CHEST PAIN, HYPERTIONSIVE URGENCY [id number] 09/10/2017 16:54:00 09/10/2017 23:59:59 CLS Preadmit MAKENZIE CHAPMAN MD [facility] RAD I71.4 AAA [id number] 09/05/2017 08:00:00 09/05/2017 23:59:59 CLS Preadmit MAKENZIE CHAPMAN MD [facility] CARD I71.4 AAA [id number] 08/28/2017 09:00:00 08/28/2017 23:59:59 CLS Preadmit MAKENZIE CHAPMAN MD [facility] RAD AAA [id number] 08/28/2017 07:51:00 08/28/2017 23:59:59 CLS Outpatient MAKENZIE CHAPMAN MD [facility] RAD I71.4 AAA [id number] 08/23/2017 11:21:00 08/23/2017 23:59:59 CLS Preadmit MAKENZIE CHAPMAN MD [facility] CARD I71.4 AAA [id number] 05/04/2017 09:47:00 05/04/2017 23:59:59 CLS Preadmit RIDDHI MURRAY [facility] RAD M54.12 CERVICAL RADICULOPATHY [id number] 04/25/2017 07:59:00 04/25/2017 11:15:00 DIS Emergency DIMAS GARCIA MD [facility] ER DIARRHEA [id number] 03/06/2017 20:33:00 03/06/2017 22:58:00 DIS Emergency STANLEY ALTAMIRANO DO [facility] ER LOWER STOMACH/BACK PAIN [id number] 02/07/2017 17:57:00 02/07/2017 23:05:00 DIS Emergency SANDRA LAWSON MD [facility] ER CHEST/BACK PAIN [id number] 07/23/2016 11:20:00 07/23/2016 12:15:00 DIS Emergency МАРИЯ MIRZA PRE OWNED SALES CONSULTANT [facility] ER L ARM LUMP/REDNESS [id number] 05/26/2016 15:47:00 05/26/2016 23:59:59 CLS Outpatient NAVEEN FERRARO R PRE OWNED SALES CONSULTANT [facility] RAD ACUTE RIGHT FLANK PAIN [id number] 04/24/2016 08:26:00 04/24/2016 23:59:59 CLS Outpatient MADL, PHUC L COUNSELOR MANAGER [facility] RAD AAA,RUQ PAIN [id number] 02/16/2016 16:41:00 02/16/2016 23:59:59 CLS Outpatient PAVAN YORK R PRE OWNED SALES CONSULTANT [facility] QUICK [id number] 02/04/2016 10:50:00 02/04/2016 12:35:00 DIS Emergency МАРИЯ MIRZA PRE OWNED SALES CONSULTANT [facility] ER CHEST PAIN RADIATING THRU BACK [id number] 12/03/2015 11:33:00 12/03/2015 12:58:00 DIS Emergency BRITNEY NICHOLS MD [facility] ER BACK PAIN [id number] 11/22/2015 13:34:00 11/22/2015 23:59:59 CLS Outpatient MADL, PHUC L COUNSELOR MANAGER [facility] RAD ABNORMAL XRAY [id number] 11/17/2015 09:42:00 11/17/2015 23:59:59 CLS Outpatient MADL, PHUC L COUNSELOR MANAGER [facility] RAD PAIN OF RIGHT LOWER EXTREMITY [id number] 08/27/2015 16:37:00 08/27/2015 19:20:00 DIS Emergency МАРИЯ MIRZA PRE OWNED SALES CONSULTANT [facility] ER VOMITING,DIARRHEA [id number] 12/04/2014 21:30:00 12/04/2014 23:55:00 DIS Emergency VERA DYER MD [facility] ER L HAND PAIN/INJ [id number] 08/28/2014 16:35:00 08/28/2014 21:03:00 DIS Emergency STANLEY ALTAMIRANO DO [facility] ER ABD PAIN [id number] 08/07/2014 10:31:00 08/07/2014 23:59:59 CLS Outpatient VERA SCOTT [facility] RAD SOLID FOOD DYPHAGIA NECK PAIN [id number] 05/24/2014 22:11:00 05/26/2014 13:38:00 DIS Inpatient MARGAUX ROSAS MD [facility] 4TH HYPONATREMIA;URINARY TRACT INFECTION;DIARRHEA [id number] 03/26/2014 12:14:00 03/26/2014 14:25:00 DIS Emergency LETHA COPPOLA [facility] ER LEFT KNEE PAIN [id number] 02/19/2014 13:18:00 02/19/2014 16:43:00 DIS Emergency BRITNEY NICHOLS MD [facility] ER CHEST PAIN [id number] 01/26/2014 16:19:00 01/26/2014 17:35:00 DIS Emergency МАРИЯ MIRZA APRN [facility] ER WOUND CARE [id number] 01/25/2014 20:34:00 01/25/2014 22:28:00 DIS Emergency LETHA COPPOLA [facility] ER CAT BITE [id number] 07/06/2013 16:17:00 07/06/2013 19:01:00 DIS Emergency BRITNEY NICHOLS MD [facility] ER ABD PAIN [id number] 11/10/2012 22:22:00 11/11/2012 14:30:00 DIS Inpatient MARGAUX ROSAS MD [facility] 4TH ACUTE RENAL FAILURE, ACUTE ABD PAIN, N/V/D [id number] 05/25/2014 11:51:00 Document Registration [id number] 01/22/2012 19:53:00 Document Registration [id number] 09/19/2011 18:45:00 Document Registration [id number] 09/07/2011 22:14:00 Document Registration [id number] 07/14/2011 08:59:00 Document Registration [id number] 03/15/2011 18:46:00 Document Registration [id number] 03/08/2011 14:42:00 Document Registration [id number] 11/22/2010 05:25:00 Document Registration [id number] 08/29/2010 14:17:00 Document Registration [id number] 05/15/2010 09:10:00 Document Registration [id number] 01/17/2010 15:47:00 Document Registration
[2018-04-11 22:24] VITALS: BP 147/103
== END 2018-04-11 22:24 | disposition home or self-care (01) ==
LOC: EDUNIT# 20:53 → ER 20:55
DX: R51 Headache (principal); I10 Essential (primary) hypertension; J44.9 Chronic obstructive pulmonary disease, unspecified; I25.10 Atherosclerotic heart disease of native coronary artery without angina pectoris; E78.00 Pure hypercholesterolemia, unspecified; E11.59 Type 2 diabetes mellitus with other circulatory complications; I73.9 Peripheral vascular disease, unspecified; K21.9 Gastro-esophageal reflux disease without esophagitis; Z87.448 Personal history of other diseases of urinary system; Z87.440 Personal history of urinary (tract) infections; Z88.6 Allergy status to analgesic agent; Z88.2 Allergy status to sulfonamides; Z88.8 Allergy status to other drugs, medicaments and biological substances; Z91.041 Radiographic dye allergy status; Z79.51 Long term (current) use of inhaled steroids; Z87.891 Personal history of nicotine dependence; Z90.89 Acquired absence of other organs
CPT/HCPCS: 99283

== ENCOUNTER 2018-08-18 18:57 | Observation (INO) | payer BC ==
[~2018-08-18] VITALS: Ht 165.1 cm; Wt 129.4 kg
[2018-08-18] VITALS (9 sets, daily range): BP systolic 151–172; BP diastolic 63–80
[~2018-08-18 18:57] MED LIST changes: -AMLO5TAB7 PO; +AMLO5TAB9 PO
[2018-08-18] MEDS ORDERED: NITROGLYCERIN 0.4 MG SL TABS BTL 25'S SL ONE (19:09)
[2018-08-18] MEDS ORDERED: ASPIRIN 81 MG CHEW (CHILDREN'S ASA) ONE (19:10)
[2018-08-18] MEDS: NITROGLYCERIN 0.4 MG SL TABS BTL 25'S SL PRN ×3 (19:14→19:25)
[2018-08-18] MEDS ORDERED: ASPIRIN 81 MG CHEW (CHILDREN'S ASA) PO ONE (19:15)
--- NOTE | 2018-08-18 19:19 | ED Chest Pain ---
General Stated Complaint: CHEST PAIN,LEG SWELLING, R SHOULDER NUMBNESS Source: patient, family (daughter) Exam Limitations: no limitations History of Present Illness Date Seen by Provider: Aug 18, 2018 Time Seen by Provider: 18:55 Initial Comments Patient presents to ER by private conveyance with her daughter and chief complaint that about a day and a half now she's had a feeling of unwellness and some pain and pressure in her right upper chest and shoulder and arm region. Some numbness and tingling at times in her right arm. She's also noticed past for days that she has had increased swelling bilateral ankles. She denies a history of CHF or coronary artery disease but she says she's had 3 The past looking for it. No history of stents. No heart attacks. She said her dad had a heart attack is 50 years old. She does not smoke and is a borderline diabetic but does not take any medicines for it. She denies thyroid disorder but she has significant blood pressure disorder for which she takes HCTZ, Norvasc, metoprolol and lisinopril. She's been taking it routinely recently. She does not check her blood sugars however. She does not take a daily aspirin, antiplatelet or blood thinner. No history of dysrhythmias. No palpitations. Pain is worse with deep inspiration and she does feel mildly short of breath. She denies a history of lung disease such as COPD or asthma but she does have a strong history of acid reflux and over the past days she's been taking her omeprazole and took a couple Tums which gave her some minimal relief for a while. She denies any nausea or sweats. Allergies and Home Medications Allergies Coded Allergies: NSAIDS (Non-Steroidal Anti-Inflamma (Verified Allergy, Unknown, 11/11/12) Sulfa (Sulfonamide Antibiotics) (Verified Allergy, Unknown, 11/11/12) acetaminophen (Unverified Allergy, Unknown, 03/26/14) niacin (Verified Allergy, Unknown, 09/19/11) Uncoded Allergies: IV CONTRAST (Allergy, Unknown, 11/11/12) Home Medications Amlodipine Besylate 10 Mg Tablet, 10 MG PO DAILY Prescribed by: MAKENZIE SMITH on 02/08/18 1119 Ascorbate Calcium 500 Mg Tablet, 500 MG PO DAILY, (Reported) Atorvastatin Calcium 10 Mg Tablet, 10 MG PO HS, (Reported) Calcium Carbonate/Vitamin D3 1 Each Tablet, 1 TAB PO DAILY, (Reported) Ciprofloxacin HCl 500 Mg Tablet, 500 MG PO BID, (Reported) 10 DAY SUPPLY FILLED 02-06-18 Fluticasone Propionate 16 Gm [place].susp, 1 SPRAY NS HS, (Reported) Gabapentin 100 Mg Capsule, 100 MG PO BID, (Reported) Hydrochlorothiazide 12.5 Mg Tablet, 12.5 MG PO DAILY, (Reported) Lisinopril 20 Mg Tablet, 20 MG PO DAILY, (Reported) Metoprolol Succinate 200 Mg Tab.er.24h, 200 MG PO HS, (Reported) Multivitamin 1 Each Tablet, 1 TAB PO HS, (Reported) Multivits,Stress Formula 1 Each Tablet, 1 TAB PO HS, (Reported) Patient Home Medication List Home Medication List Reviewed: Yes Review of Systems Review of Systems Constitutional: No chills, No fever EENTM: No Blurred Vision, No Double Vision Respiratory: Denies Cough, Denies Shortness of Air Cardiovascular: Chest Pain, Edema; Denies Irregular Heart Rate Gastrointestinal: Denies Abdomen Distended, Denies Abdominal Pain, Denies Constipated, Denies Diarrhea, Denies Nausea, Denies Poor Fluid Intake, Denies Vomiting Genitourinary: Denies Burning, Denies Discharge Musculoskeletal: No back pain, No joint pain Skin: No pruritus, No rash Psychiatric/Neurological: Denies Headache, Denies Numbness Past Xqjopot-Israyw-Odjzuz Hx Patient Social History Alcohol Use: Occasionally Uses Alcohol Beverage of Choice: Wine Recreational Drug Use: No Smoking Status: Former Smoker Type Used: Cigarettes Former Smoker, Quit: Feb 08, 2011 Recent Foreign Travel: No Contact w/Someone Who Travel: No Recent Hopitalizations: No Immunizations Up To Date Tetanus Booster (TDap): Less than 5yrs Date of Pneumonia Vaccine: Jan 05, 2011 Date of Influenza Vaccine: Feb 04, 2017 Seasonal Allergies Seasonal Allergies: No Past Medical History Surgeries: Yes Adenoidectomy, Cardiac, Ear Surgery, Tonsillectomy, Vascular Surgery Respiratory: Yes Asthma, COPD Cardiac: Yes Aneurysm, Coronary Artery Disease, High Cholesterol, Hypertension, Peripheral Vascular Neurological: Yes Neuropathy 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 No Pertinent Family Hx Physical Exam Vital Signs Vital Signs - First Documented Capillary Refill : Height, Weight, BMI Height: 5'5.00" Weight: 287lbs. 7.0oz. 130.193257nh; 48.0 BMI Method:Stated General Appearance: Mild Distress, Obese HEENT: PERRL/EOMI, TMs Normal, Normal ENT Inspection, Pharynx Normal, Moist Mucous Membranes Neck: Full Range of Motion, Normal Inspection Respiratory: No Chest Non Tender; Lungs Clear, Normal Breath Sounds, No Accessory Muscle Use, No Respiratory Distress, Decreased Breath Sounds Cardiovascular: Regular Rate, Rhythm, Normal Peripheral Pulses, Other (trace bilateral pedal edema) Gastrointestinal: Normal Bowel Sounds, Non Tender, Soft Extremity: Normal Capillary Refill, Normal Inspection, Non Tender, No Calf Tenderness, Pedal Edema (trace, bilateral) Neurologic/Psychiatric: Alert, Oriented x3, No Motor/Sensory Deficits, 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 Norm as Tested Skin: Normal Color, Warm/Dry Progress/Results/Core Measures Results/Orders Lab Results Laboratory Tests Test 08/18/18 19:11 Range/Units White Blood Count 6.3 4.3-11.0 10^3/uL Red Blood Count 3.71 L 4.35-5.85 10^6/uL Hemoglobin 11.6 11.5-16.0 G/DL Hematocrit 35 35-52 % Mean Corpuscular Volume 95 80-99 FL Mean Corpuscular Hemoglobin 31 25-34 PG Mean Corpuscular Hemoglobin Concent 33 32-36 G/DL Red Cell Distribution Width 14.4 10.0-14.5 % Platelet Count 191 130-400 10^3/uL Mean Platelet Volume 10.6 H 7.4-10.4 FL Neutrophils (%) (Auto) 61 42-75 % Lymphocytes (%) (Auto) 29 12-44 % Monocytes (%) (Auto) 8 0-12 % Eosinophils (%) (Auto) 2 0-10 % Basophils (%) (Auto) 0 0-10 % Neutrophils # (Auto) 3.9 1.8-7.8 X 10^3 Lymphocytes # (Auto) 1.8 1.0-4.0 X 10^3 Monocytes # (Auto) 0.5 0.0-1.0 X 10^3 Eosinophils # (Auto) 0.2 0.0-0.3 10^3/uL Basophils # (Auto) 0.0 0.0-0.1 10^3/uL Prothrombin Time 12.5 12.2-14.7 SEC INR Comment 0.9 0.8-1.4 Activated Partial Thromboplast Time 31 24-35 SEC Sodium Level 138 135-145 MMOL/L Potassium Level 3.9 3.6-5.0 MMOL/L Chloride Level 104 98-107 MMOL/L Carbon Dioxide Level 21 21-32 MMOL/L Anion Gap 13 5-14 MMOL/L Blood Urea Nitrogen 15 7-18 MG/DL Creatinine 1.28 0.60-1.30 MG/DL Estimat Glomerular Filtration Rate 43 BUN/Creatinine Ratio 12 Glucose Level 160 H 70-105 MG/DL Calcium Level 9.9 8.5-10.1 MG/DL Corrected Calcium 8.5-10.1 MG/DL Magnesium Level 2.1 1.8-2.4 MG/DL Total Bilirubin 0.4 0.1-1.0 MG/DL Aspartate Amino Transf (AST/SGOT) 20 5-34 U/L Alanine Aminotransferase (ALT/SGPT) 28 0-55 U/L Alkaline Phosphatase 81 40-136 U/L Myoglobin 71.0 10.0-92.0 NG/ML Troponin I < 0.028 <0.028 NG/ML B-Type Natriuretic Peptide 47.6 <100.0 PG/ML Total Protein 7.7 6.4-8.2 GM/DL Albumin 4.7 H 3.2-4.5 GM/DL My Orders Orders - LULU,SANDRA J Nitroglycerin 0.4 Mg Btl 25's (Nitrostat (08/18/18 19:09) Aspirin Chewable Tablet (Baby Aspirin Ch (08/18/18 19:10) Cbc With Automated Diff (08/18/18 19:10) Magnesium (08/18/18 19:10) Chest 1 View, Ap/Pa Only (08/18/18 19:10) Ekg Tracing (08/18/18 19:10) Cardiac Profile 1 (08/18/18 19:10) Comprehensive Metabolic Panel (08/18/18 19:10) Myoglobin Serum (08/18/18 19:10) Protime With Inr (08/18/18 19:10) Partial Thromboplastin Time (08/18/18 19:10) O2 (08/18/18 19:10) Monitor-Rhythm Ecg Trace Only (08/18/18 19:10) Lipid Panel (08/19/18 06:00) Ed Iv/Invasive Line Start (08/18/18 19:10) BNP (08/18/18 19:10) Nitroglycerin 0.4 Mg Btl 25's (Nitrostat (08/18/18 19:15) Aspirin Chewable Tablet (Baby Aspirin Ch (08/18/18 19:15) Us Right Up Ext Arterial [id number] (08/18/18 19:40) Medications Given in ED Current Medications Medications Dose Ordered Sig/Aramis Route Start Time Stop Time Status Last Admin Dose Admin Aspirin 81 mg STK-MED ONCE .ROUTE 08/18/18 19:10 08/18/18 19:12 DC 08/18/18 19:14 81 MG Nitroglycerin 0.4 mg UD PRN SL 08/18/18 19:15 08/18/18 19:25 DC 08/18/18 19:25 0.4 MG Vital Signs/I&O 08/18/18 08/18/18 18:58 18:58 Temp 97.3 Pulse 93 Resp 16 B/P (MAP) 235/96 (142) Pulse Ox 98 O2 Delivery Room Air Room Air Progress Progress Note #1: Time: 19:23 Progress Note We'll give her some aspirin and a single dose of nitroglycerin and see what this does for her discomfort right now at 6 out of 10. Her blood pressure significantly elevated at over 200/100. We will observe what her blood pressure does of nitroglycerin or make any significant intervention. Pain is reproducible to direct palpation as well as deep inspiration making it seem more like is involved with her chest wall. ED ACS one point. Low risk by the EDACS Score. If the patient also has: (1) EKG without new ischemic changes and (2) negative initial and 2-hour troponins, then this patient is safe for discharge to early outpatient follow-up investigation (or proceed to earlier inpatient testing). If EKG with ischemic changes or positive troponin, they are not low risk and require normal risk stratification. Mild coronary artery disease on a catheterization from [address] Smith showing distal 40% ostial LAD otherwise no significant obstructive disease. Normal left ventricular end-diastolic pressure. Abdominal aortic stent patent without significant abnormality. Patent right renal artery stent with mild ostial stenosis nonobstructive disease. Occluded left renal artery. She has a history of CKD stage III. AAA stent as well as renal arteries with stents bilaterally. While I do not suspect she has a DVT or pulmonary embolism based on a negative well score it is possible with her history of AAA in her right shoulder pain that she could be having some subclavian disease. She cannot tolerate IV contrast because of her history of significant kidney disease due to renal artery stenosis/occlusion. Progress Note #2: Time: 20:00 Progress Note Patient has a 1 out of 4 symmetrical pulses bilateral upper extremities radial as well as we took her blood pressure on both wrists it was within 10 mmHg of each other. Her blood pressure has come down significantly to 170/89 and would not necessarily try and lower it any further. After 3 doses of nitroglycerin and her pain was kept in half from a 6 out of 10 to a 3 out of 10 and she is quite comfortable at this time. Her pain is not gone and after discussing with Dr. Smith, cardiology are plan to hold onto her overnight feeds troponins and EKG in the morning. Initial ECG Impression Date: Aug 18, 2018 Initial ECG Impression Time: 19:00 Initial ECG Rate: 91 Initial ECG Rhythm: Normal Sinus Initial ECG Intervals: Normal Initial ECG Impression: Normal Initial ECG Comparisson: Unchanged Comment No significant ST elevation or depression. Diagnostic Imaging Diagonstic Imaging: Xray Plain Films/CT/US/NM/MRI: chest (1v) Reviewed: Reviewed by Me Diagonstic Imaging: Ultrasound Plain Films/CT/US/NM/MRI: other (right upper extremity arterial) Comments No acute arterial abnormalities noted On ultrasound right upper extremity. Reviewed: Reviewed by Me Consults : Consulting Physician: A Departure Communication (Admissions) Time/Spoke to Admitting Phy: 20:15 Discussed case lab imaging, EKG findings with Dr. Valerio and she agrees to observe the patient along with a consult to Dr. Smith. She would like clonidine 0.1 mg by mouth every 4 hours when necessary blood pressure elevated. Time/Spoke to Consulting Phy: 19:43 Discussed case lab imaging EKG with Dr. Smith, cardiology. He recommends that she is probably having angina and we should probably keep her as an observation stay. He is okay with ultrasound arteriogram of the right upper extremity Impression Primary Impression: Chest pain Qualified Codes: R07.9 - Chest pain, unspecified Additional Impression: Hypertension Qualified Codes: I15.0 - Renovascular hypertension Disposition: ADMITTED INPATIENT Condition: Stable Admissions Decision to Admit Reason: Admit from ER (General) Decision to Admit/Date: Aug 18, 2018 Time/Decision to Admit Time: 19:44 Departure-Patient Inst. Referrals: WHIT LOVELL DO (PCP/Family) Primary Care Physician SANDRA LAWSON Aug 18, 2018 19:19
[2018-08-18 19:30] LABS: BASOPHILS % (AUTO) 0 % (0-10); EOSINOPHILS # (AUTO) 0.2 10^3/uL (0.0-0.3); EOSINOPHILS % (AUTO) 2 % (0-10); HEMATOCRIT 35 % (35-52); HEMOGLOBIN 11.6 G/DL (11.5-16.0); LYMPHOCYTES # (AUTO) 1.8 X 10^3 (1.0-4.0); LYMPHOCYTES % (AUTO) 29 % (12-44); MEAN CORPUSCULAR HEMOGLOBIN 31 PG (25-34); MEAN CORPUSCULAR HGB CONC 33 G/DL (32-36); MEAN CORPUSCULAR VOLUME 95 FL (80-99); MEAN PLATELET VOLUME 10.6 FL (7.4-10.4); MONOCYTES # (AUTO) 0.5 X 10^3 (0.0-1.0); MONOCYTES % (AUTO) 8 % (0-12); NEUTROPHILS # (AUTO) 3.9 X 10^3 (1.8-7.8); NEUTROPHILS % (AUTO) 61 % (42-75); PLATELET COUNT 191 10^3/uL (130-400); RED CELL DISTRIBUTION WIDTH 14.4 % (10.0-14.5); WHITE BLOOD COUNT 6.3 10^3/uL (4.3-11.0)
[2018-08-18 19:34] LABS: INR 0.9 (0.8-1.4); PROTHROMBIN TIME PATIENT 12.5 SEC (12.2-14.7)
[2018-08-18 19:43] LABS: ALANINE AMINOTRANSFERASE 28 U/L (0-55); ALBUMIN 4.7 GM/DL (3.2-4.5); ALKALINE PHOSPHATASE 81 U/L (40-136); BILIRUBIN,TOTAL 0.4 MG/DL (0.1-1.0); BUN/CREATININE RATIO 12; CALCIUM 9.9 MG/DL (8.5-10.1); CARBON DIOXIDE 21 MMOL/L (21-32); CHLORIDE 104 MMOL/L (98-107); CREATININE SERUM 1.28 MG/DL (0.60-1.30); GFR ESTIMATED 43; GLUCOSE 160 MG/DL (70-105); MAGNESIUM 2.1 MG/DL (1.8-2.4); POTASSIUM 3.9 MMOL/L (3.6-5.0); SODIUM 138 MMOL/L (135-145); TOTAL PROTEIN 7.7 GM/DL (6.4-8.2)
--- NOTE | 2018-08-18 20:47 | Diagnostic Imaging Report ---
EXAMINATION: AP upright portable chest. INDICATION: Chest pain. COMPARISON: Multiple priors, most recent on 02/08/2018. FINDINGS: There is mild left basilar atelectasis. The lungs are otherwise clear and the pulmonary vasculature is normal. No pneumothorax or large pleural effusion. The cardiomediastinal silhouette is unchanged. No acute osseous abnormality is identified. IMPRESSION: There is mild left basilar atelectasis; otherwise, no acute chest disease. No significant change from prior. Dictated by: Dictated on workstation # [id number]
--- OUTSIDE RECORDS SUMMARY | 2018-08-18 20:47 | XMS REPORT ---
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 Name Role Phone Migration, Doctor Unavailable Unavailable PROBLEMS Type Condition ICD9-CM Code ACI04-TU Code Onset Dates Condition Status SNOMED Code Problem Peripheral vascular disease I73.9 Active 989315820 Problem Urinary, incontinence, stress female N39.3 Active 70202233 Problem Chronic kidney disease, unspecified N18.9 Active 370744841 Problem Dysphagia, unspecified R13.10 Active 82702813 Problem Anemia of chronic disease D63.8 Active 221917173 Problem Cervicalgia M54.2 Active 7609613097115 Problem Essential hypertension I10 Active 24005819 Problem 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 903604938 Problem Abdominal aortic aneurysm (AAA) without rupture I71.4 Active 04169367 Problem Seasonal allergic rhinitis, unspecified allergic rhinitis trigger J30.2 Active 627325224 Problem Prediabetes R73.03 Active 761773678 Problem Mixed hyperlipidemia E78.2 Active 907730725 Problem Stenosis of right renal artery I70.1 Active [id number] Problem Chronic obstructive pulmonary disease, unspecified COPD type J44.9 Active 90759658 Problem Gastroesophageal reflux disease without esophagitis K21.9 Active 112382223 Problem Hepatic steatosis K76.0 Active 147987281 Problem Renal artery stenosis I70.1 Active 134493908 Problem PVD (peripheral vascular disease) I73.9 Active 268923751 Problem Arthritis of knee M17.10 Active 916353702 Problem Other chronic pain G89.29 Active [id number] ALLERGIES No Information ENCOUNTERS Encounter Location Date Diagnosis [facility] [address] [facility] [id number] [address] Aug, [facility] [address] [facility] [id number] [address] Jul, Contact dermatitis and other eczema, due to unspecified cause L25.9 ; Morbid obesity E66.01 ; Essential hypertension I10 ; Chronic obstructive pulmonary disease, unspecified COPD type J44.9 ; Chronic kidney disease, unspecified N18.9 and Mixed hyperlipidemia E78.2 [facility] [place] [address] [id number] [place] [address] 89161 -6913 Jul, Skin infection L08.9 and Morbid obesity E66.01 [facility] [place] [id number] [place] [address] 99480 -1031 Jun, Cellulitis of right arm L03.113 and BMI 45.0-49.9, adult Z68.42 [place] [id number] [place] [address] 48759- 7487 May, [address] [address] May, Chronic obstructive pulmonary disease, unspecified COPD type J44.9 ; Viral upper respiratory tract infection J06.9 and BMI 45.0-49.9, adult Z68.42 [place] [id number] [place] [address] 12138- 7057 Mar, BMI 45.0-49.9, adult Z68.42 ; Chronic urticaria L50.8 and Skin infection L08.9 [place] [id number] [place] [address] 37817- 6438 15 Mar, 2018 Dermatitis L30.9 and BMI 45.0-49.9, adult Z68.42 [place] [id number] [place] [address] 01468- 0091 Feb, Cellulitis of right upper extremity L03.113 and BMI 45.0- 49.9, adult Z68.42 [place] [id number] [place] [address] 09159- 1333 Feb, Cellulitis of right arm L03.113 and Status post cardiac catheterization Z98.890 [place] [id number] [place] [address] 22881- 1353 Feb, [place] [id number] [place] [address] 19900- 1373 Feb, Chronic obstructive pulmonary disease, unspecified COPD type J44.9 ; Essential hypertension I10 ; Encounter for immunization Z23 ; Mixed hyperlipidemia E78.2 and BMI 45.0-49.9, adult Z68.42 [place] [id number] [place] [address] 37946- 9068 Feb, Dysuria R30.0 ; Acute cystitis without hematuria N30.00 and BMI 45.0-49.9, adult Z68.42 [place] [id number] [place] [address] 16366- 9161 Dec, [place] [address] 27249- 4136 Dec, Essential hypertension I10 ; Chronic kidney disease, unspecified N18.9 ; Mixed hyperlipidemia E78.2 ; Tinea corporis B35.4 ; Right hip pain M25.551 and Acute pain of right knee M25.561 [place] [id number] [place] [address] 32369- 0275 Dec, Herpes zoster without complication B02.9 ; Dandruff L21.0 ; Diarrhea, unspecified type R19.7 and BMI 45.0-49.9, adult Z68.42 [place] [id number] [place] [address] 99587- 2677 September, Chronic kidney disease, unspecified N18.9 ; Essential hypertension I10 ; Mixed hyperlipidemia E78.2 and BMI 45.0-49.9, adult Z68.42 [place] [id number] [place] [address] 02954- 1461 September, [place] [id number] [place] [address] 21332- 4115 September, Essential hypertension I10 ; Chronic kidney disease, unspecified N18.9 ; Prediabetes R73.03 ; Low back pain M54.5 ; Other chronic pain G89.29 ; Arthritis of knee M17.10 ; Pure hyperglyceridemia E78.1 ; Anemia of chronic disease D63.8 and BMI 45.0-49.9, adult Z68.42 [place] [address] 61054- 1165 Aug, [place] [address] 76355- 9012 Jul, Abdominal aortic aneurysm (AAA) without rupture I71.4 ; PVD (peripheral vascular disease) I73.9 ; Renal artery stenosis I70.1 and Essential hypertension I10 [place] [address] 00969- 7137 May, Essential hypertension I10 ; Pure hyperglyceridemia E78.1 ; Abdominal aortic aneurysm (AAA) without rupture I71.4 ; Chronic kidney disease, unspecified N18.9 ; Gastroesophageal reflux disease without esophagitis K21.9 ; 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 ; Stenosis of right renal artery I70.1 ; Anemia of chronic disease D63.8 and Prediabetes R73.03 [place] [address] 30863- 9767 May, Tinea corporis B35.4 and Viral URI J06.9 [place] [address] 80644- 2859 May, [place] [address] 66381- 2437 Apr, [place] [address] 21773- 5191 Apr, Cervical radiculopathy M54.12 [facility] [address] 56941 -9113 Apr, Flank pain R10.9 and Acute pyelonephritis N10 [place] [address] 21550- 1840 Apr, [place] [address] 13932- 0604 Mar, [place] [address] [address] 59[address] Feb, Pain of right shoulder region M25.511 [place] [address] [id number] [place] [address] 82867- 5121 Feb, History of glaucoma Z86.69 ; Vision changes H53.9 ; Abdominal aortic aneurysm (AAA) without rupture I71.4 ; Xerosis of skin L85.3 and Pain in right shoulder M25.511 [place] [id number] [place] [address] 61041- 8696 Feb, [place] [id number] [place] [address] 02885- 4049 13 Jan, 2017 Essential hypertension I10 ; Pure hyperglyceridemia E78.1 ; Chronic kidney disease, unspecified N18.9 ; Gastroesophageal reflux disease without esophagitis K21.9 ; 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 ; Stenosis of right renal artery I70.1 ; Anemia of chronic disease D63.8 ; Prediabetes R73.03 ; Pain of right shoulder region M25.511 and Homeless Z59.0 [place] [address] [place] [address] 24426- 2265 Jan, Neck pain M54.2 and Seasonal allergic rhinitis, unspecified allergic rhinitis trigger J30.2 [place] [id number] [place] [address] 39775- 3639 Dec, [place] [address] [id number] [place] [address] 17561- 7383 Dec, [place] [id number] [place] [address] 55440- 0707 Dec, Blood glucose abnormal R73.09 ; Essential [...] and Prediabetes R73.03 [facility] [id number] [place] [address] 70331 -6840 Oct, Seasonal allergic rhinitis, unspecified allergic rhinitis trigger J30.2 [place] [address] 74849- 3000 September, Eustachian tube dysfunction, left H69.82 and Candidiasis of breast B37.89 [place] [address] 72806- 8859 Jul, Blood glucose abnormal R73.09 ; Essential hypertension I10 ; Pure hyperglyceridemia E78.1 ; Chronic kidney disease, unspecified N18.9 ; Gastroesophageal reflux disease without esophagitis K21.9 ; 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 ; Abdominal aortic aneurysm (AAA) without rupture I71.4 ; Stenosis of right renal artery I70.1 ; Anemia of chronic disease D63.8 and Acute non-recurrent maxillary sinusitis J01.[address] 04255- 1216 Jun, Acute non-recurrent maxillary sinusitis J01.00 ; Acute mucoid otitis media of left ear H65.112 ; Nausea R11.0 and Fever and chills R50.9 [place] [address] [id number] [place] [address] 04822- 7902 May, Acute right flank pain R10.9 [place] [address] 83468- 3982 Apr, Acute nasopharyngitis J00 ; Pure hyperglyceridemia E78.1 and Chronic kidney disease, unspecified N18.9 [place] [address] [id number] [place] [address] 21094- 8507 Apr, [place] [address] 49219- 5059 Apr, Blood glucose abnormal R73.09 ; Essential hypertension I10 ; Pure hyperglyceridemia E78.1 ; Chronic kidney disease, unspecified N18.9 ; Gastroesophageal reflux disease without esophagitis K21.9 ; 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 ; Abdominal aortic aneurysm (AAA) without rupture I71.4 ; Stenosis of right renal artery I70.1 ; RUQ pain R10.11 and Anemia of chronic disease D63.8 [place] [address] 54350- 6558 Mar, Blood glucose abnormal R73.09 [place] [address] 98671- 0104 Mar, Cellulitis of right lower leg L03.115 [facility] [address] [id number] [place] [address] 52049 -2945 Feb, [place] [address] 02667- 3343 Feb, Dysuria R30.0 and Upper respiratory tract infection, unspecified type J06.9 [place] [address] [id number] [place] [address] 36143- 6982 Jan, [place] [address] [id number] [place] [address] 84730- 8688 Jan, [place] [address] [id number] [place] [address] 62694- 3469 Dec, [place] [address] [id number] [place] [address] 03437- 4543 Dec, Anemia of chronic disease D63.8 ; Essential hypertension I10 ; Pure hyperglyceridemia E78.1 ; Chronic kidney disease, unspecified N18.9 ; Gastroesophageal reflux disease without esophagitis K21.9 ; 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 and Pain in right knee M25.561 [place] [address] [id number] [place] [address] 08933- 9903 Dec, Left shoulder strain, subsequent encounter S46.912D ; Urinary frequency R35.0 ; Lung nodule, solitary R91.1 ; Essential hypertension I10 and Acute cystitis without hematuria N30.00 [place] [address] 68612- 1980 13 Nov, 2015 Left-sided chest wall pain R07.89 and Abnormal chest xray R93.8 [place] [address] 30184- 0228 07 Nov, 2015 Pain of right lower extremity M79.604 ; Swelling of right lower extremity M79.89 ; Diarrhea, unspecified R19.7 ; Nausea with vomiting, unspecified R11.2 ; Left-sided chest wall pain R07.89 ; Chronic kidney disease, unspecified N18.9 ; Gastroesophageal reflux disease without esophagitis K21.9 and Other seasonal allergic rhinitis J30.2 [place] [address] 03998- 6471 September, Essential hypertension I10 ; Chronic kidney disease, unspecified N18.9 ; Anemia of chronic disease D63.8 ; Pure hyperglyceridemia E78.1 ; Peripheral vascular disease I73.9 ; Abnormal glucose R73.09 ; 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 ; Gastroesophageal reflux disease without esophagitis K21.9 ; Allergic rhinitis J30.9 and Rash R21 [place] [address] [id number] [place] [address] 85358- 1137 Aug, Abdominal pain R10.9 and Constipation K59.00 [place] [address] 28429- 6366 Jul, Injury of toe on right foot S99.921A [place] [address] 57864- 5594 Jul, [place] [address] 23366- 1740 Jul, Essential hypertension I10 ; Chronic kidney disease, unspecified N18.9 ; Anemia of chronic disease D63.8 ; Pure hyperglyceridemia E78.1 ; Peripheral vascular disease I73.9 ; Abnormal glucose R73.09 ; 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 ; Gastroesophageal reflux disease without esophagitis K21.9 and Allergic rhinitis J30.9 [place] [address] [address] [id number] [place] [address] 85528- 4486 Jun, Low back pain M54.5 [place] [address] 47423- 1528 Jun, [place] [address] 54542- 8671 May, URI (upper respiratory infection) J06.9 [place] [address] 94487- 9624 Apr, Essential hypertension I10 [address] 46767- 7935 10 Apr, 2015 Essential hypertension I10 ; Chronic kidney disease, unspecified N18.9 ; Anemia of chronic disease D63.8 ; Pure hyperglyceridemia E78.1 ; Peripheral vascular disease I73.9 ; Abnormal glucose R73.09 ; URI ( upper respiratory infection) J06.9 ; 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 ; Gastroesophageal reflux disease without esophagitis K21.9 and Cough R05 [place] [address] 32790- 3579 Mar, Flank pain R10.9 and URI (upper respiratory infection) J06.9 [place] [address] [id number] [place] [address] 99269- 9365 Mar, Right-sided low back pain without sciatica M54.5 and Hematuria, unspecified R31.9 [place] [address] [address] [id number] [place] [address] 82629- 8730 Mar, Hypopigmentation L81.9 and Hyperpigmentation L81.9 [place] [address] [id number] [place] [address] 79130- 3896 Mar, [place] [address] 59617- 3703 Mar, Acute cystitis with hematuria N30.01 [place] [address] 46629- 0200 Mar, [place] [address] 75437- 2976 Feb, Furuncle L02.92 ; Hypopigmentation L81.9 ; Hyperpigmentation L81.9 ; Urinary frequency R35.0 ; Screening for malignant neoplasm of cervix Z12.4 ; Vaginal discharge N89.8 ; Urinary, incontinence, stress female N39.3 and Vaginal irritation N89.8 [place] [address] 60276- 7480 Jan, Muscle spasm 728.85 ; Unspecified peripheral vascular disease 443.9 ; Benign essential hypertension 401.1 ; Chronic renal insufficiency 585.9 ; Chronic constipation 564.00 ; GERD (gastroesophageal reflux disease) 530.81 ; Hyperlipidemia 272.4 and Chronic leg pain 729.5 [place] [address] 93667- 7887 Jan, Sinusitis 473.9 [place] [address] 42093- 4941 Dec, [place] [address] 10989- 6141 Dec, Acute bronchitis 466.0 [place] [address] 50028- 2699 Dec, Acute bronchitis 466.0 [place] [address] 30790- 4921 Dec, Unspecified episodic mood disorder 296.[address] 15352- 6066 Dec, Visit for suture removal V58.[address] 15454- 9070 Nov, Allergic rhinitis 477.9 and Onychomycosis 110.1 [facility] [address] [address]- 0763 Oct, Muscle spasm 728.85 ; Benign essential hypertension 401.1 ; Chronic renal insufficiency 585.9 ; Chronic constipation 564.00 ; GERD ( gastroesophageal reflux disease) 530.81 and Hyperlipidemia 272.4 [facility] [address] [id number] [place] [address] 47489- 9846 15 Oct, 2014 Otalgia of left ear 388.70 [facility] [address] [place] [id number] [place] [address] 30944- 1256 Oct, Unspecified episodic mood disorder 296.90 [facility] [address] [place] [id number] [place] [address] 45145- 1836 September, Unspecified episodic mood disorder 296.90 [facility] [address] [place] [id number] [place] [address] 43108- 4376 September, Unspecified episodic mood disorder 296.90 [facility] [address] [id number] [place] [address] [id number] September, Urinary frequency 788.41 and Constipation 564.00 [facility] [address] [place] [id number] [place] [address] 31581- 5396 Aug, [facility] [address] [place] [address] 82691- 3506 Aug, [facility] [address] [address] [id number] [place] [address] 02062- 1476 Jul, [facility] [address] [place] [id number] [place] [address] 19840- 5976 Jul, [facility] [address] [place] [id number] [place] [address] 85515- 8326 Jul, [facility] [address] [address]- 3356 Jul, [facility] [address] [place] [address] [id number] [place] [address] 22801- 9925 Jul, [facility] [place] [facility] [address] [id number] [place] [address]- 9240 Jul, [facility] [place] [facility] [address] [id number] [place] [address]- 9756 Jul, [facility] [place] [facility] [address] [id number] [place] [address]- 8059 Jul, [facility] [place] [facility] [address] [id number] [place] [address]- 8349 Jul, [facility] [place] [facility] [address] [id number] [place] [address]- 9462 Jul, [facility] [place] [facility] [address] [id number] [place] [address]- 3374 Jun, [facility] [place] [facility] [address] [id number] [place] [address]- 0734 Jun, [facility] [place] [facility] [address] [id number] [place] [address]- 6976 May, [facility] [place] [facility] [address] [id number] [place] [address]- 8891 May, [facility] [place] [facility] [address] [id number] [place] [address]- 5768 May, [facility] [place] [facility] [address] [id number] [place] [address]- 8509 May, [facility] [place] [facility] [address] [id number] [address]- 3434 May, [facility] [place] [facility] [address] [id number] [place] [address]- 1909 May, [facility] [place] [facility] [address] [id number] [place] [address]- 0363 May, [facility] [place] [facility] [address] [id number] [place] [address]- 6341 May, [facility] [place] [facility] [address] [id number] [place] [address]- 3826 May, [facility] [place] [facility] [address] [id number] [place] [address]- 3391 May, [facility] [place] [facility] [address] [id number] [place] [address]- 4122 May, [facility] [place] [facility] [address] [id number] [place] [address]- 3613 May, [facility] [place] [facility] [address] [id number] [place] [address]- 0299 May, [facility] [place] [facility] [address] [id number] [place] [address]- 1998 Feb, [facility] [place] [facility] [address] [id number] [place] [address]- 0897 Feb, [facility] [place] [facility] [address] [id number] [place] [address]- 3195 20 Jan, 2013 [facility] [place] [facility] [address] [id number] [place] [address]- 4898 20 Jan, 2013 [facility] [place] [facility] [address] [id number] [place] [address]- 2436 18 Jan, 2013 [facility] [place] [facility] [address] [id number] [place] [address]- 0642 18 Jan, 2013 [facility] [place] [facility] [address] [id number] [place] [address]- 8908 12 Jan, 2013 [facility] [place] [facility] [address] [id number] [place] [address]- 2548 12 Jan, 2013 [facility] [place] [facility] [address] [id number] [place] [address]- 3086 12 Jan, 2013 [facility] [place] [facility] [address] [id number] [place] [address]- 2542 12 Jan, 2013 [facility] [place] [facility] [address] [id number] [place] [address]- 9333 Jan, [facility] [place] [facility] [address] [id number] [place] [address]- 8907 Jan, [facility] [place] [facility] [address] [id number] [place] [address]- 6972 Jan, [facility] [place] [facility] [address] [id number] [place] [address]- 5345 Jan, [facility] [place] [facility] [address] [id number] [place] [address]- 3718 Oct, [facility] [place] [facility] [address] [id number] [place] [address]- 1219 Oct, [facility] [place] [facility] [address] [id number] [place] [address]- 6359 Oct, [facility] [place] [facility] [address] [facility] [id number] [place] [address]- 0646 Oct, [facility] [place] [facility] [address] [id number] [place] [address]- 7507 Jun, [facility] [place] [facility] [address] [id number] [place] [address]- 4754 Jun, [facility] [place] [facility] [address] [id number] [place] [address]- 3687 Jun, [facility] [place] [facility] [address] [id number] [place] [address]- 9811 Jun, [facility] [place] [facility] [address] [id number] [address]- 0554 Apr, [facility] [place] [facility] [address] [id number] [place] [address]- 7102 Apr, [facility] [place] [facility] [address] [id number] [place] [address]- 6343 Feb, [facility] [place] [facility] [address] [id number] [place] [address]- 1275 Feb, [facility] [place] [facility] [address] [id number] [place] [address]- 7446 Dec, [facility] [address] [id number] [place] [address]- 3966 Dec, [facility] [address] [id number] [place] [address]- 9547 Nov, [facility] [address] [id number] [place] [address]- 6692 Nov, [facility] [address] [id number] [place] [address]- 1375 Nov, [facility] [address] [id number] [place] [address]- 7305 Oct, [facility] [address] [id number] [place] [address]- 7234 September, [facility] [address] [id number] [place] [address]- 4275 September, [facility] [address] [id number] [place] [address]- 4711 Aug, [facility] [address] [id number] [place] [address]- 2911 Aug, [facility] [address] [id number] [place] [address]- 5170 Aug, [facility] [address] [id number] [place] [address]- 7726 Aug, [facility] [place] [facility] [address] [id number] [place] [address] Aug, [facility] [place] [facility] [address] [id number] [place] [address] Aug, [facility] [place] [facility] [address] [id number] [place] [address] Jul, [facility] [address] [id number] [place] [address] Jul, [facility] [place] [facility] [address] [id number] [place] [address] 21 Jul, 2012 [facility] [place] [facility] [address] [id number] [place] [address] 15 Jul, 2012 [facility] [place] [facility] [address] [id number] [place] [address] Jul, [facility] [place] [facility] [address] [id number] [place] [address] 07 Jul, 2012 [facility] [place] [facility] [address] [id number] [place] [address] Jun, [facility] [place] [facility] [address] [id number] [place] [address] Jun, [facility] [place] [facility] [address] [id number] [place] [address] May, [facility] [place] [facility] [address] [id number] [place] [address] May, [facility] [place] [facility] [address] [id number] [place] [address] Apr, [facility] [place] [facility] [address] [id number] [place] [address] Apr, [facility] [place] [facility] [address] [id number] [place] [address] Apr, [facility] [place] [facility] [address] [id number] [place] [address] Apr, [facility] [place] [facility] [address] [id number] [place] [address] Apr, [facility] [place] [facility] [address] [id number] [place] [address] Mar, [facility] [place] [facility] [address] [id number] [place] [address] Mar, [facility] [place] [facility] [address] [id number] [place] [address] Mar, [facility] [place] [facility] [address] [id number] [place] [address] Mar, [facility] [place] [facility] [address] [id number] [place] [address] Mar, [facility] [facility] [address] [id number] [place] [address] Mar, [facility] [place] [facility] [address] [id number] [place] [address] Mar, [facility] [place] [facility] [address] [id number] [place] [address] Feb, [facility] [place] [facility] [address] [id number] [place] [address] Feb, [facility] [place] [facility] [address] [id number] [place] [address] Feb, [facility] [place] [facility] [address] [id number] [place] [address] Feb, [facility] [place] [facility] [address] [id number] [place] [address] Dec, [facility] [place] [facility] [address] [id number] [place] [address] Nov, [facility] [place] [facility] [address] [id number] [place] [address] Nov, [facility] [place] [facility] [address] [id number] [place] [address] Oct, [facility] [place] [facility] [address] [id number] [place] [address] Oct, [facility] [place] [facility] [address] [id number] [place] [address] Oct, [facility] [place] [facility] [address] [id number] [place] [address] Oct, [facility] [place] [facility] [address] [id number] [place] [address] Oct, [facility] [address] [id number] [place] [address] Oct, [facility] [address] [id number] [place] [address] Oct, [facility] [address] [id number] [place] [address] Aug, [facility] [address] [id number] [place] [address] Jul, [facility] [address] [id number] [place] [address] Jul, [facility] [address] [id number] [place] [address] Jul, [facility] [address] [id number] [place] [address] Jul, [facility] [address] [id number] [place] [address] Jul, [facility] [address] [id number] [place] [address] Jul, [facility] [address] [id number] [place] [address] Jul, [facility] [address] [id number] [place] [address] Jun, [facility] [address] [id number] [place] [address] May, [facility] [place] [facility] [address] [id number] [place] [address] May, [facility] [address] [id number] [place] [address] May, [facility] [address] [id number] [place] [address] Apr, [facility] [place] [facility] [address] [id number] [place] [address] Apr, [facility] [address] [id number] [place] [address] 16 Apr, 2011 [facility] [address] [id number] [place] [address] Apr, [facility] [facility] [address] [id number] [place] [address] Apr, [facility] [address] [id number] [place] [address] Apr, [facility] [address] [id number] [place] [address] Mar, [facility] [place] [facility] [address] [id number] [place] [address] Mar, [facility] [place] [facility] [address] [id number] [place] [address] Mar, [facility] [address] [id number] [place] [address] Mar, [facility] [address] [id number] [place] [address] Mar, [facility] [address] [id number] [place] [address] Mar, [facility] [address] [id number] [place] [address] Mar, [facility] [address] [id number] [place] [address] Dec, [facility] [address] [id number] [place] [address] Aug, [facility] [address] [id number] [place] [address] Apr, [facility] [address] [id number] [place] [address] Mar, [facility] [address] [id number] [place] [address] Mar, [facility] [id number] [place] [address] Mar, [facility] [id number] [address] Mar, [facility] [id number] [place] [address] September, [facility] [id number] [place] [address] Mar, [facility] [id number] [place] [address] Feb, [facility] [id number] [place] [address] Oct, [facility] [id number] [place] [address] September, [facility] [id number] [place] [address] Apr, [facility] [address] [id number] [address] Mar, IMMUNIZATIONS No Known Immunizations SOCIAL HISTORY Never Assessed REASON FOR VISIT [facility] [place] VITAL SIGNS MEDICATIONS Unknown [...]
--- OUTSIDE RECORDS SUMMARY | 2018-08-18 20:48 | XMS REPORT ---
Author Author Migration, Doctor Organization 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 Name Role Phone Migration, Doctor Unavailable Unavailable PROBLEMS Type Condition ICD9-CM Code XYJ48-RH Code Onset Dates Condition Status SNOMED Code Problem Peripheral vascular disease I73.9 Active 495894284 Problem Urinary, incontinence, stress female N39.3 Active 31987822 Problem Chronic kidney disease, unspecified N18.9 Active 797782298 Problem Dysphagia, unspecified R13.10 Active 81309378 Problem Anemia of chronic disease D63.8 Active 884205187 Problem Cervicalgia M54.2 Active 6550020302115 Problem Essential hypertension I10 Active 70080607 Problem 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 308436917 Problem Abdominal aortic aneurysm (AAA) without rupture I71.4 Active 14534934 Problem Seasonal allergic rhinitis, unspecified allergic rhinitis trigger J30.2 Active 618033781 Problem Prediabetes R73.03 Active 553564677 Problem Mixed hyperlipidemia E78.2 Active 264418457 Problem Stenosis of right renal artery I70.1 Active [id number] Problem Chronic obstructive pulmonary disease, unspecified COPD type J44.9 Active 11790474 Problem Gastroesophageal reflux disease without esophagitis K21.9 Active 267314344 Problem Hepatic steatosis K76.0 Active 135715189 Problem Renal artery stenosis I70.1 Active 289415305 Problem PVD (peripheral vascular disease) I73.9 Active 879919157 Problem Arthritis of knee M17.10 Active 199001100 Problem Other chronic pain G89.29 Active 12257766 ALLERGIES No Information ENCOUNTERS Encounter Location Date Diagnosis [facility] [address] [facility] [id number], [place] [address] Aug, [facility] [address] [facility] [id number], [place] [address] Jul, Contact dermatitis and other eczema, due to unspecified cause L25.9 ; Morbid obesity E66.01 ; Essential hypertension I10 ; Chronic obstructive pulmonary disease, unspecified COPD type J44.9 ; Chronic kidney disease, unspecified N18.9 and Mixed hyperlipidemia E78.2 [facility] [place] [address] [place] [id number] [place] [address] 68538 -0206 Jul, Skin infection L08.9 and Morbid obesity E66.01 [facility] [place] [address] [place] [id number] [place] [address] 14353 -8439 Jun, Cellulitis of right arm L03.113 and BMI 45.0-49.9, adult Z68.42 [place] [address] [place] [id number] [place] [address] 10469- 8316 May, [address] [address]- [address] May, Chronic obstructive pulmonary disease, unspecified COPD type J44.9 ; Viral upper respiratory tract infection J06.9 and BMI 45.0-49.9, adult Z68.42 [place] [address] [place] [id number] [place] [address] 60614- 9870 Mar, BMI 45.0-49.9, adult Z68.42 ; Chronic urticaria L50.8 and Skin infection L08.9 [place] [id number] [place] [address] 15584- 2617 15 Mar, 2018 Dermatitis L30.9 and BMI 45.0-49.9, adult Z68.42 [place] [address] [place] [id number] [place] [address] 36680- 5238 Feb, Cellulitis of right upper extremity L03.113 and BMI 45.0- 49.9, adult Z68.42 [place] [id number] [place] [address] 06662- 9186 Feb, Cellulitis of right arm L03.113 and Status post cardiac catheterization Z98.890 [place] [id number] [place] [address] 17184- 5449 Feb, [place] [id number] [place] [address] 36949- 7890 Feb, Chronic obstructive pulmonary disease, unspecified COPD type J44.9 ; Essential hypertension I10 ; Encounter for immunization Z23 ; Mixed hyperlipidemia E78.2 and BMI 45.0-49.9, adult Z68.42 [place] [address] [place] [id number] [place] [address] 60351- 4900 Feb, Dysuria R30.0 ; Acute cystitis without hematuria N30.00 and BMI 45.0-49.9, adult Z68.42 [place] [address] [place] [id number] [place] [address] 05341- 6980 Dec, [place] [address] 83226- 6846 Dec, Essential hypertension I10 ; Chronic kidney disease, unspecified N18.9 ; Mixed hyperlipidemia E78.2 ; Tinea corporis B35.4 ; Right hip pain M25.551 and Acute pain of right knee M25.561 [place] [address] [place] [id number] [place] [address] 70699- 0568 Dec, Herpes zoster without complication B02.9 ; Dandruff L21.0 ; Diarrhea, unspecified type R19.7 and BMI 45.0-49.9, adult Z68.42 [place] [address] [place] [id number] [place] [address] 29938- 0386 September, Chronic kidney disease, unspecified N18.9 ; Essential hypertension I10 ; Mixed hyperlipidemia E78.2 and BMI 45.0-49.9, adult Z68.42 [place] [address] [place] [id number] [place] [address] 73626- 0840 September, [place] [address] [place] [id number] [place] [address] 45263- 9892 September, Essential hypertension I10 ; Chronic kidney disease, unspecified N18.9 ; Prediabetes R73.03 ; Low back pain M54.5 ; Other chronic pain G89.29 ; Arthritis of knee M17.10 ; Pure hyperglyceridemia E78.1 ; Anemia of chronic disease D63.8 and BMI 45.0-49.9, adult Z68.42 [place] [address] 75849- 3075 Aug, [place] [address] 73326- 8676 Jul, Abdominal aortic aneurysm (AAA) without rupture I71.4 ; PVD (peripheral vascular disease) I73.9 ; Renal artery stenosis I70.1 and Essential hypertension I10 [place] [address] 61440- 8360 May, Essential hypertension I10 ; Pure hyperglyceridemia E78.1 ; Abdominal aortic aneurysm (AAA) without rupture I71.4 ; Chronic kidney disease, unspecified N18.9 ; Gastroesophageal reflux disease without esophagitis K21.9 ; 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 ; Stenosis of right renal artery I70.1 ; Anemia of chronic disease D63.8 and Prediabetes R73.03 [place] [address] 69364- 5461 May, Tinea corporis B35.4 and Viral URI J06.9 [place] [address] 54735- 8774 May, [place] [address] 77189- 8234 Apr, [place] [address] 91849- 1287 Apr, Cervical radiculopathy M54.12 [facility] [address] 96433 -4544 Apr, Flank pain R10.9 and Acute pyelonephritis N10 [place] [address] 03924- 8837 Apr, [place] [address] 26823- 4766 Mar, [place] [address] [address] 68[address] Feb, Pain of right shoulder region M25.511 [place] [address] [place] [id number] [place] [address] 10069- 3198 Feb, History of glaucoma Z86.69 ; Vision changes H53.9 ; Abdominal aortic aneurysm (AAA) without rupture I71.4 ; Xerosis of skin L85.3 and Pain in right shoulder M25.511 [place] [id number] [place] [address] 39368- 2147 Feb, [place] [address] [place] [id number] [place] [address] 78331- 5737 13 Jan, 2017 Essential hypertension I10 ; Pure hyperglyceridemia E78.1 ; Chronic kidney disease, unspecified N18.9 ; Gastroesophageal reflux disease without esophagitis K21.9 ; 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 ; Stenosis of right renal artery I70.1 ; Anemia of chronic disease D63.8 ; Prediabetes R73.03 ; Pain of right shoulder region M25.511 and Homeless Z59.0 [place] [id number] [place] [address] 77035- 0499 Jan, Neck pain M54.2 and Seasonal allergic rhinitis, unspecified allergic rhinitis trigger J30.2 [place] [address] [place] [address] 43380- 0409 Dec, [place] [address] [place] [id number] [place] [address] 63578- 4856 Dec, [place] [address] [place] [id number] [place] [address] 09483- 3799 Dec, Blood glucose abnormal R73.09 ; Essential [...] H. pylori infection A04.8 and Prediabetes R73.03 [facility] [address] [place] [id number] [place] [address] 91733 -3214 Oct, Seasonal allergic rhinitis, unspecified allergic rhinitis trigger J30.2 [place] [address] 91302- 4666 September, Eustachian tube dysfunction, left H69.82 and Candidiasis of breast B37.89 [place] [address] 31698- 3258 Jul, Blood glucose abnormal R73.09 ; Essential hypertension I10 ; Pure hyperglyceridemia E78.1 ; Chronic kidney disease, unspecified N18.9 ; Gastroesophageal reflux disease without esophagitis K21.9 ; 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 ; Abdominal aortic aneurysm (AAA) without rupture I71.4 ; Stenosis of right renal artery I70.1 ; Anemia of chronic disease D63.8 and Acute non-recurrent maxillary sinusitis J01.[address] 95988- 3843 Jun, Acute non-recurrent maxillary sinusitis J01.00 ; Acute mucoid otitis media of left ear H65.112 ; Nausea R11.0 and Fever and chills R50.9 [place] [address] [place] [id number] [place] [address] 01748- 9904 May, Acute right flank pain R10.9 [place] [address] 23134- 4901 Apr, Acute nasopharyngitis J00 ; Pure hyperglyceridemia E78.1 and Chronic kidney disease, unspecified N18.9 [place] [address] [place] [id number] [place] [address] 57883- 1642 Apr, [place] [address] 29854- 8063 Apr, Blood glucose abnormal R73.09 ; Essential hypertension I10 ; Pure hyperglyceridemia E78.1 ; Chronic kidney disease, unspecified N18.9 ; Gastroesophageal reflux disease without esophagitis K21.9 ; 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 ; Abdominal aortic aneurysm (AAA) without rupture I71.4 ; Stenosis of right renal artery I70.1 ; RUQ pain R10.11 and Anemia of chronic disease D63.8 [place] [address] 60705- 0440 Mar, Blood glucose abnormal R73.09 [place] [address] 02384- 1264 Mar, Cellulitis of right lower leg L03.115 [facility] [address] [place] [id number] [place] [address] 07324 -3964 Feb, [place] [address] 82965- 0083 Feb, Dysuria R30.0 and Upper respiratory tract infection, unspecified type J06.9 [place] [address] [place] [id number] [place] [address] 34172- 6100 Jan, [place] [address] [place] [id number] [place] [address] 61782- 5788 Jan, [place] [address] [place] [id number] [place] [address] 93221- 1685 Dec, [place] [address] [place] [id number] [place] [address] 62583- 6452 Dec, Anemia of chronic disease D63.8 ; Essential hypertension I10 ; Pure hyperglyceridemia E78.1 ; Chronic kidney disease, unspecified N18.9 ; Gastroesophageal reflux disease without esophagitis K21.9 ; 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 and Pain in right knee M25.561 [place] [address] [place] [id number] [place] [address] 99598- 6800 Dec, Left shoulder strain, subsequent encounter S46.912D ; Urinary frequency R35.0 ; Lung nodule, solitary R91.1 ; Essential hypertension I10 and Acute cystitis without hematuria N30.00 [place] [address] 98776- 1807 13 Nov, 2015 Left-sided chest wall pain R07.89 and Abnormal chest xray R93.8 [place] [address] 74739- 0707 07 Nov, 2015 Pain of right lower extremity M79.604 ; Swelling of right lower extremity M79.89 ; Diarrhea, unspecified R19.7 ; Nausea with vomiting, unspecified R11.2 ; Left-sided chest wall pain R07.89 ; Chronic kidney disease, unspecified N18.9 ; Gastroesophageal reflux disease without esophagitis K21.9 and Other seasonal allergic rhinitis J30.2 [place] [address] 04518- 6911 September, Essential hypertension I10 ; Chronic kidney disease, unspecified N18.9 ; Anemia of chronic disease D63.8 ; Pure hyperglyceridemia E78.1 ; Peripheral vascular disease I73.9 ; Abnormal glucose R73.09 ; Idiopathic progressive neuropathy G60.3 ; Gastroesophageal reflux disease without esophagitis K21.9 ; Allergic rhinitis J30.9 and Rash R21 [place] [address] [place] [id number] [place] [address] 55147- 8890 Aug, Abdominal pain R10.9 and Constipation K59.00 [place] [address] 20656- 3836 Jul, Injury of toe on right foot S99.921A [place] [address] 31823- 3016 Jul, [place] [address] 77033- 5261 Jul, Essential hypertension I10 ; Chronic kidney disease, unspecified N18.9 ; Anemia of chronic disease D63.8 ; Pure hyperglyceridemia E78.1 ; Peripheral vascular disease I73.9 ; Abnormal glucose R73.09 ; Idiopathic progressive neuropathy G60.3 ; Gastroesophageal reflux disease without esophagitis K21.9 and Allergic rhinitis J30.9 [place] [address] [place] [id number] [place] [address] 27699- 2574 Jun, Low back pain M54.5 [place] [address] 99785- 4095 Jun, [place] [address] 68731- 5737 May, URI (upper respiratory infection) J06.9 [place] [address] 81989- 8848 Apr, Essential hypertension I10 [address] 52786- 5434 10 Apr, 2015 Essential hypertension I10 ; Chronic kidney disease, unspecified N18.9 ; Anemia of chronic disease D63.8 ; Pure hyperglyceridemia E78.1 ; Peripheral vascular disease I73.9 ; Abnormal glucose R73.09 ; URI ( upper respiratory infection) J06.9 ; 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 ; Gastroesophageal reflux disease without esophagitis K21.9 and Cough R05 [place] [address] 82628- 5029 Mar, Flank pain R10.9 and URI (upper respiratory infection) J06.9 [place] [address] [place] [id number] [place] [address] 36420- 5570 Mar, Right-sided low back pain without sciatica M54.5 and Hematuria, unspecified R31.9 [place] [address] [place] [id number] [place] [address] 95986- 6259 Mar, Hypopigmentation L81.9 and Hyperpigmentation L81.9 [place] [address] [place] [id number] [place] [address] 83255- 6373 Mar, [place] [address] 01353- 4637 Mar, Acute cystitis with hematuria N30.01 [place] [address] 77706- 4069 Mar, [place] [address] 12077- 3664 Feb, Furuncle L02.92 ; Hypopigmentation L81.9 ; Hyperpigmentation L81.9 ; Urinary frequency R35.0 ; Screening for malignant neoplasm of cervix Z12.4 ; Vaginal discharge N89.8 ; Urinary, incontinence, stress female N39.3 and Vaginal irritation N89.8 [place] [address] 78702- 5043 Jan, Muscle spasm 728.85 ; Unspecified peripheral vascular disease 443.9 ; Benign essential hypertension 401.1 ; Chronic renal insufficiency 585.9 ; Chronic constipation 564.00 ; GERD (gastroesophageal reflux disease) 530.81 ; Hyperlipidemia 272.4 and Chronic leg pain 729.5 [place] [address] 33737- 7219 Jan, Sinusitis 473.9 [place] [address] 93255- 4593 Dec, [place] [address] 72523- 5712 Dec, Acute bronchitis 466.0 [place] [address] 74997- 1712 Dec, Acute bronchitis 466.0 [place] [address] 88417- 9198 Dec, Unspecified episodic mood disorder 296.[address] 91266- 8865 Dec, Visit for suture removal V58.[address] 25950- 4355 Nov, Allergic rhinitis 477.[address] [facility] [address], [place] [address]- 8765 Oct, Muscle spasm 728.85 ; Benign essential hypertension 401.1 ; Chronic renal insufficiency 585.9 ; Chronic constipation 564.00 ; GERD ( gastroesophageal reflux disease) 530.[address] [facility] [address] [place] [id number] [place] [address] 52272- 1996 15 Oct, 2014 Otalgia of left ear 388.70 [facility] [address] [place] [id number] [place] [address] 75392- 1776 Oct, Unspecified episodic mood disorder 296.90 [facility] [address] [place] [id number] [place] [address] 11889- 1696 September, Unspecified episodic mood disorder 296.90 [facility] [address] [place] [id number] [place] [address] 10482- 1816 September, Unspecified episodic mood disorder 296.90 [facility] [address] [place] [id number] [place] [address] [id number] September, Urinary frequency 788.[address] [facility] [address] [place] [id number] [place] [address] 15790- 9606 Aug, [facility] [address] [place] [address] 63050- 9046 Aug, [facility] [address] [place] [id number] [place] [address] 50728- 7286 Jul, [facility] [address] [place] [id number] [place] [address] 09633- 2036 Jul, [facility] [address] [place] [id number] [place] [address] 12632- 6686 Jul, [facility] [address] [address] 7096 Jul, [facility] [address] [place] [id number] [place] [address] 24751- 0961 Jul, [facility] [place] [facility] [address] [id number] [place] [address]- 4837 Jul, [facility] [place] [facility] [address] [id number] [place] [address]- 0049 Jul, [facility] [place] [facility] [address] [id number] [place] [address]- 5111 Jul, [facility] [place] [facility] [address] [id number] [place] [address]- 0133 Jul, [facility] [place] [facility] [address] [id number] [place] [address]- 7403 Jul, [facility] [place] [facility] [address] [id number] [place] [address]- 0697 Jun, [facility] [place] [facility] [address] [id number] [place] [address]- 2486 Jun, [facility] [place] [facility] [address] [id number] [place] [address]- 9874 May, [facility] [place] [facility] [address] [id number] [place] [address]- 1196 May, [facility] [place] [facility] [address] [id number] [place] [address]- 6721 May, [facility] [place] [facility] [address] [id number] [place] [address]- 2654 May, [facility] [place] [facility] [address] [id number], [place] [address]- 6471 May, [facility] [place] [facility] [address] [id number] [place] [address]- 8691 May, [facility] [place] [facility] [address] [id number] [place] [address]- 3720 May, [facility] [place] [facility] [address] [id number] [place] [address]- 9191 May, [facility] [place] [facility] [address] [id number] [place] [address]- 6951 May, [facility] [place] [facility] [address] [id number] [place] [address]- 2201 May, [facility] [place] [facility] [address] [id number] [place] [address]- 7311 May, [facility] [place] [facility] [address] [id number] [place] [address]- 9252 May, [facility] [place] [facility] [address] [id number] [place] [address]- 3182 May, [facility] [place] [facility] [address] [id number] [place] [address]- 5990 Feb, [facility] [place] [facility] [address] [id number] [place] [address]- 2233 Feb, [facility] [place] [facility] [address] [id number] [place] [address]- 9183 20 Jan, 2013 [facility] [place] [facility] [address] [id number] [place] [address]- 7908 20 Jan, 2013 [facility] [place] [facility] [address] [id number] [place] [address]- 2942 18 Jan, 2013 [facility] [place] [facility] [address] [id number] [place] [address]- 5212 18 Jan, 2013 [facility] [place] [facility] [address] [id number] [place] [address]- 3529 12 Jan, 2013 [facility] [place] [facility] [address] [id number] [place] [address]- 2543 12 Jan, 2013 [facility] [place] [facility] [address] [id number] [place] [address]- 5721 12 Jan, 2013 [facility] [place] [facility] [address] [id number] [place] [address]- 2544 12 Jan, 2013 [facility] [place] [facility] [address] [id number] [place] [address]- 3450 Jan, [facility] [place] [facility] [address] [id number] [place] [address]- 9735 Jan, [facility] [place] [facility] [address] [id number] [place] [address]- 6620 Jan, [facility] [place] [facility] [address] [id number] [place] [address]- 8554 Jan, [facility] [place] [facility] [address] [id number] [place] [address]- 5267 Oct, [facility] [place] [facility] [address] [id number] [place] [address]- 8061 Oct, [facility] [place] [facility] [address] [id number] [place] [address]- 6289 Oct, [facility] [place] [facility] [address] [facility] [id number] [place] [address]- 5376 Oct, [facility] [place] [facility] [address] [id number] [place] [address]- 2838 Jun, [facility] [place] [facility] [address] [id number] [place] [address]- 5016 Jun, [facility] [place] [facility] [address] [id number] [place] [address]- 4177 Jun, [facility] [place] [facility] [address] [id number] [place] [address]- 1639 Jun, [facility] [place] [facility] [address] [id number], [place] [address]- 8602 Apr, [facility] [place] [facility] [address] [id number] [place] [address]- 2393 Apr, [facility] [place] [facility] [address] [id number], [place] [address]- 9580 Feb, [facility] [place] [facility] [address] [id number], [place] [address]- 7099 Feb, [facility] [place] [facility] [address] [id number], [place] [address]- 0831 Dec, [facility] [address] [id number] [place] [address]- 0636 Dec, [facility] [address] [id number] [place] [address]- 8713 Nov, [facility] [address] [id number] [place] [address]- 8822 Nov, [facility] [address] [id number] [place] [address]- 0966 Nov, [facility] [address] [id number] [place] [address]- 7457 Oct, [facility] [address] [id number] [place] [address]- 8467 September, [facility] [address] [id number] [place] [address]- 0641 September, [facility] [address] [id number] [place] [address]- 4267 Aug, [facility] [address] [id number] [place] [address]- 0280 Aug, [facility] [address] [id number] [place] [address]- 3363 Aug, [facility] [address] [id number] [place] [address] Aug, [facility] [place] [facility] [address] [id number] [place] [address] Aug, [facility] [place] [facility] [address] [id number] [place] [address] Aug, [facility] [place] [facility] [address] [id number] [place] [address] Jul, [facility] [address] [id number] [place] [address] Jul, [facility] [place] [facility] [address] [id number] [place] [address] 21 Jul, 2012 [facility] [place] [facility] [address] [id number] [place] [address] 15 Jul, 2012 [facility] [place] [facility] [address] [id number] [place] [address] Jul, [facility] [place] [facility] [address] [id number] [place] [address] 07 Jul, 2012 [facility] [place] [facility] [address] [id number] [place] [address] Jun, [facility] [place] [facility] [address] [id number] [place] [address] Jun, [facility] [place] [facility] [address] [id number] [place] [address] May, [facility] [place] [facility] [address] [id number] [place] [address] May, [facility] [place] [facility] [address] [id number] [place] [address] Apr, [facility] [place] [facility] [address] [id number] [place] [address] Apr, [facility] [place] [facility] [address] [id number] [place] [address] Apr, [facility] [place] [facility] [address] [id number] [place] [address] Apr, [facility] [place] [facility] [address] [id number] [place] [address] Apr, [facility] [place] [facility] [address] [id number] [place] [address] Mar, [facility] [place] [facility] [address] [id number] [place] [address] Mar, [facility] [place] [facility] [address] [id number] [place] [address] Mar, [facility] [place] [facility] [address] [id number] [place] [address] Mar, [facility] [place] [facility] [address] [id number] [place] [address]- [address]88 Mar, [facility] [place] [facility] [address] [id number] [place] [address] Mar, [facility] [place] [facility] [address] [id number] [place] [address] Mar, [facility] [place] [facility] [address] [id number] [place] [address] Feb, [facility] [place] [facility] [address] [id number] [place] [address] Feb, [facility] [place] [facility] [address] [id number] [place] [address] Feb, [facility] [place] [facility] [address] [id number] [place] [address] Feb, [facility] [place] [facility] [address] [id number] [place] [address] Dec, [facility] [place] [facility] [address] [id number] [place] [address] Nov, [facility] [place] [facility] [address] [id number], [place] [address] Nov, [facility] [place] [facility] [address] [id number], [place] [address] Oct, [facility] [place] [facility] [address] [id number] [place] [address] Oct, [facility] [place] [facility] [address] [id number] [place] [address] Oct, [facility] [place] [facility] [address] [id number] [place] [address] Oct, [facility] [place] [facility] [address] [id number] [place] [address] Oct, [facility] [address] [id number] [place] [address] Oct, [facility] [address] [id number] [place] [address] Oct, [facility] [address] [id number] [place] [address] Aug, [facility] [address] [id number] [place] [address] Jul, [facility] [address] [id number] [place] [address]- [address] Jul, [facility] [address] [id number] [place] [address] Jul, [facility] [address] [id number] [place] [address] Jul, [facility] [address] [id number] [place] [address]- [address] Jul, [facility] [address] [id number] [place] [address] Jul, [facility] [address] [id number] [place] [address] Jul, [facility] [address] [id number] [place] [address] Jun, [facility] [address] [id number] [place] [address]120 May, [facility] [place] [facility] [address] [id number] [place] [address]- [address] May, [facility] [place] [facility] [address] [id number] [place] [address] 2546 May, [facility] [address] [id number] [place] [address] Apr, [facility] [place] [facility] [address] [id number] [place] [address]51 Apr, [facility] [place] [facility] [address] [id number] [place] [address]- [address] 16 Apr, 2011 [facility] [place] [facility] [address] [id number] [place] [address] Apr, [facility] [place] [facility] [address] [id number] [place] [address] Apr, [facility] [place] [facility] [address] [id number] [place] [address]- 4460 Apr, [facility] [place] [facility] [address] [id number] [place] [address] 7974 Mar, [facility] [place] [facility] [address] [id number] [place] [address] Mar, [facility] [place] [facility] [address] [id number] [place] [address]- [address] Mar, [facility] [place] [facility] [address] [id number] [place] [address]609 Mar, [facility] [place] [facility] [address] [id number], [place] [address] Mar, [facility] [place] [facility] [address] [id number], [place] [address] Mar, [facility] [place] [facility] [address] [id number], [place] [address] Mar, [facility] [place] [facility] [address] [id number] [place] [address]- 1571 Dec, [facility] [place] [facility] [address] [id number] [place] [address] Aug, [facility] [place] [facility] [address] [id number], [place] [address] Apr, [facility] [place] [facility] [address] [id number], [place] [address] Mar, [facility] [address] [id number], [place] [address] Mar, [facility] [id number] [address] Mar, [facility] [id number] [address] Mar, [facility] [id number] [address] September, [facility] [id number] [address] Mar, [facility] [id number] [address] Feb, [facility] [id number] [address] Oct, [facility] [id number] [address] September, [facility] [id number], [place] [address] Apr, [facility] [address] [id number], [place] [address] Mar, IMMUNIZATIONS No Known Immunizations SOCIAL HISTORY Never Assessed REASON FOR VISIT [facility] [place] PLAN OF CARE VITAL SIGNS MEDICATIONS Unknown [...]
--- OUTSIDE RECORDS SUMMARY | 2018-08-18 21:12 | XMS REPORT | Continuity of Care Document ---
Author Organization Unknown Address Unknown Allergies Active Description Code Type Severity Reaction Onset Reported/Identified Relationship to Patient Clinical Status Yes niacin Drug Allergy N/A N/A 12/19/2010 Yes niacin Drug Allergy 12/19/2010 Yes Tekturna 150 mg tablet Drug Allergy N/A N/A 08/10/2011 Yes Tekturna 150 mg tablet Drug Allergy 08/10/2011 Yes niacin [id number] Drug Allergy Unknown N/A 09/19/2011 Yes IV CONTRAST IV CONTRAST Unknown N/A 11/11/2012 Yes NSAIDS (Non-Steroidal Anti-Inflamma [id number] Drug Allergy Unknown N/A 12/2012 Yes Sulfa (Sulfonamide Antibiotics) [id number] Drug Allergy Unknown N/A 2012 Yes Bactrim Drug Allergy N/A N/A 11/15/2012 Yes NSAIDS (Non-Steroidal Anti-Inflammatory Drug) Drug Allergy N/A N/A 2012 Yes Iodinated Contrast Media - IV Dye Drug Allergy N/A N/A 10/30/2013 Yes acetaminophen [id number] Drug Allergy Unknown N/A 03/26/2014 Yes Macrobid [...] lower back pain 03/20/2008 OSEAS FELIX MD 724.2 lower back pain 03/20/2008 NAS TORRES WHIT K 724.2 lower back pain 03/20/2008 PHUC AMIN APRN L 724.2 lower back pain 03/20/2008 PAVAN YORK APRN R 724.2 lower back pain 03/20/2008 LOVELL DO WHIT K 724.2 lower back pain 03/20/2008 JOHN DIEGO MOER S 724.2 lower back pain 03/20/2008 OSEAS FELIX MD N 724.2 lower back pain 03/20/2008 OSEAS FELIX MD 724.2 lower back pain 03/20/2008 LOVELL DO WHIT K 724.2 lower back pain 03/20/2008 WENDY AMIN APRNA L 724.2 lower back pain 04/07/2008 SHEA LOVELL DOA K 276.8 Hypokalemia 04/07/2008 SHEA LOVELL DOA K 401.1 ESSENTIAL HYPERTENSION BENIGN 04/07/2008 276.8 Hypokalemia 04/07/2008 401.1 ESSENTIAL HYPERTENSION BENIGN 04/07/2008 SHEA LOVELL DOA K 276.8 Hypokalemia 04/07/2008 SHEA LOVELL DOA K 401.1 ESSENTIAL HYPERTENSION BENIGN 04/07/2008 276.8 [...] FELIX MD 401.1 ESSENTIAL HYPERTENSION BENIGN 04/07/2008 WHIT LOVELL DO K 276.8 Hypokalemia 04/07/2008 WHIT LOVELL DO K 401.1 ESSENTIAL HYPERTENSION BENIGN 04/07/2008 MADL CABLE ASSEMBLER, PHUC L 276.8 Hypokalemia 04/07/2008 MADL CABLE ASSEMBLER, PHUC L 401.1 ESSENTIAL HYPERTENSION BENIGN 04/07/2008 CHELA DIEGO, PAVAN R 276.8 Hypokalemia 04/07/2008 CHELA CABLE ASSEMBLER, PAVAN R 401.1 ESSENTIAL HYPERTENSION BENIGN 04/07/2008 LOVELL DO, WHIT K 276.8 Hypokalemia 04/07/2008 LOVELL DO, WHIT K 401.1 ESSENTIAL HYPERTENSION BENIGN 04/07/2008 JOHN DIEGO, MORE S 276.8 Hypokalemia 04/07/2008 JOHN DIEGO, MORE S 401.1 ESSENTIAL HYPERTENSION BENIGN 04/07/2008 OSEAS FELIX MD N 276.8 Hypokalemia 04/07/2008 OSEAS FELIX MD N 401.1 ESSENTIAL HYPERTENSION BENIGN 04/07/2008 OSEAS FELIX MD N 276.8 Hypokalemia 04/07/2008 OSEAS FELIX MD N 401.1 ESSENTIAL HYPERTENSION BENIGN 04/07/2008 LOVELL DO, WHIT K 276.8 Hypokalemia 04/07/2008 LOVELL DO, WHIT K 401.1 ESSENTIAL HYPERTENSION BENIGN 04/07/2008 ELOISA CABLE ASSEMBLER, PHUC L 276.8 Hypokalemia 04/07/2008 ELOISA CABLE ASSEMBLER, PHUC L 401.1 ESSENTIAL HYPERTENSION BENIGN 04/28/2008 LOVELL DO, WHIT K 782.1 Rash 04/28/2008 782.1 Rash 04/28/2008 LOVELL DO, WHIT K 782.1 Rash 04/28/2008 782.1 Rash 04/28/2008 VERA SHORE PA-C 782.1 Rash 04/28/2008 782.1 Rash 04/28/2008 782.1 Rash 04/28/2008 REBEL SOARES MD 782.1 Rash 04/28/2008 OSEAS FELIX MD N 782.1 Rash 04/28/2008 LOVELL DO WHIT K 782.1 Rash 04/28/2008 ELOISA DIEGO PHUC L 782.1 Rash 04/28/2008 CHELA DIEGO, PAVAN R 782.1 Rash 04/28/2008 LOVELL DO WHIT K 782.1 Rash 04/28/2008 MORE LOPEZ APRN S 782.1 Rash 04/28/2008 OSEAS FELIX MD N 782.1 Rash 04/28/2008 OSEAS FELIX MD 782.1 Rash 04/28/2008 LOVELL DO WHIT K 782.1 Rash 04/28/2008 MADL BRANDIE, PHUC L 782.1 Rash 09/18/2008 NAS TORRES WHIT K 401.9 Essential Hypertension 09/18/2008 NAS TORRES WHIT K 461.2 Sinusitis Acute Ethmoidal 09/18/2008 401.9 Essential Hypertension 09/18/2008 461.2 Sinusitis Acute Ethmoidal 09/18/2008 SHEA LOVELL DOA K 401.9 Essential [...] LOVELL DO K 401.9 Essential Hypertension 09/18/2008 SHEA LOVELL DOA K 461.2 Sinusitis Acute Ethmoidal 09/18/2008 WENDY AMIN APRNA L 401.9 Essential Hypertension 09/18/2008 MADL CABLE ASSEMBLER, PHUC L 461.2 Sinusitis Acute Ethmoidal 09/18/2008 CHELA DIEGO PAVAN R 401.9 Essential Hypertension 09/18/2008 CHELA DIEGO PAVAN R 461.2 Sinusitis Acute Ethmoidal 09/18/2008 LOVELL DO WHIT K 401.9 Essential Hypertension 09/18/2008 LOVELL DO WHIT K 461.2 Sinusitis Acute Ethmoidal 09/18/2008 MURALI LOPEZ APRNA S 401.9 Essential Hypertension 09/18/2008 JOHNMARIELOS DIEGO MORE S 461.2 Sinusitis Acute Ethmoidal 09/18/2008 OSEAS FELIX MD N 401.9 Essential Hypertension 09/18/2008 OSEAS FELIX MD N 461.2 Sinusitis Acute Ethmoidal 09/18/2008 OSEAS FELIX MD N 401.9 Essential Hypertension 09/18/2008 OSEAS FELIX MD N 461.2 Sinusitis Acute Ethmoidal 09/18/2008 LOVELL SHEA TORRESA K 401.9 Essential Hypertension 09/18/2008 LOVELL DO WHIT K 461.2 Sinusitis Acute Ethmoidal 09/18/2008 WENDY AMIN APRNA L 401.9 Essential Hypertension 09/18/2008 MADWENDY Teixeira APRNA L 461.2 Sinusitis Acute Ethmoidal 11/11/2008 WHIT LOVELL DO K 380.10 OTITIS EXTERNA UNSPECIFIED 11/11/2008 380.10 OTITIS EXTERNA UNSPECIFIED 11/11/2008 WHIT LOVELL DO K 380.10 Otitis Externa Unspecified 11/11/2008 380.10 Otitis Externa Unspecified 11/11/2008 VERA SHORE PA-C 380.10 Otitis Externa Unspecified 11/11/2008 380.10 Otitis Externa Unspecified 11/11/2008 380.10 Otitis Externa Unspecified 11/11/2008 REBEL SOARES MD 380.10 Otitis Externa Unspecified 11/11/2008 OSEAS FELIX MD N 380.10 Otitis Externa Unspecified 11/11/2008 WHIT LOVELL DO K 380.10 Otitis Externa Unspecified 11/11/2008 PHUC AMIN APRN L 380.10 Otitis Externa Unspecified 11/11/2008 PAVAN YORK APRN 380.10 Otitis Externa Unspecified 11/11/2008 WHIT LOVELL DO K 380.10 Otitis Externa Unspecified 11/11/2008 MORE LOPEZ APRN S 380.10 Otitis Externa Unspecified 11/11/2008 OSEAS FELIX MD 380.10 Otitis Externa Unspecified 11/11/2008 OSEAS FELIX MD 380.10 Otitis Externa Unspecified 11/11/2008 WHIT LOVELL DO 380.10 Otitis Externa Unspecified 11/11/2008 PHUC AMIN APRN 380.10 Otitis Externa Unspecified 12/08/2008 WHIT LOVELL DO K 786.50 Chest Pain Or Discomfort 12/08/2008 WHIT LOVELL DO K 787.02 Nausea 12/08/2008 786.50 Chest Pain Or Discomfort 12/08/2008 787.02 Nausea 12/08/2008 SHEA LOVELL DOA K [...] MD 787.02 Nausea 12/08/2008 WHIT LOVELL DO K 786.50 Chest Pain Or Discomfort 12/08/2008 WHIT LOVELL DO K 787.02 Nausea 12/08/2008 WENDY AMIN APRNA L 786.50 Chest Pain Or Discomfort 12/08/2008 PHUC AMIN APRN L 787.02 Nausea 12/08/2008 CHELA CABLE ASSEMBLER, PAVAN R 786.50 Chest Pain Or Discomfort 12/08/2008 CHELA DIEGO, PAVAN R 787.02 Nausea 12/08/2008 SHEA LOVELL DOA K 786.50 Chest Pain Or Discomfort 12/08/2008 WHIT LOVELL DO K 787.02 Nausea 12/08/2008 MORE LOPEZ APRN S 786.50 Chest Pain Or Discomfort 12/08/2008 MORE LOPEZ APRN S 787.02 Nausea 12/08/2008 OSEAS FELIX MD 786.50 Chest Pain Or Discomfort 12/08/2008 OSEAS FELIX MD 787.02 Nausea 12/08/2008 OSEAS FELIX MD 786.50 Chest Pain Or Discomfort 12/08/2008 OSEAS FELIX MD 787.02 Nausea 12/08/2008 NAS TORRES WHIT K 786.50 Chest Pain Or Discomfort 12/08/2008 SHEA LOVELL DOA K 787.02 Nausea 12/08/2008 MADWENDY Teixeira APRNA L 786.50 Chest Pain Or Discomfort 12/08/2008 MADWENDY Teixeira APRNA L 787.02 Nausea 12/11/2008 SHEA LOVELL DOA K 599.0 Urinary Tract Infection Site Not [...] Tract Infection Site Not Specified 12/11/2008 MADLluvia CABLE ASSEMBLER, PHUC L 599.0 Urinary Tract Infection Site Not Specified 12/11/2008 PAVAN YORK APRN 599.0 Urinary Tract Infection Site Not Specified 12/11/2008 WIHT LOVELL DO K 599.0 Urinary Tract Infection [...] ABUSE OF DRUGS, TOBACCO USE DISORDER 07/07/2009 LOVELL DO, WHIT K V58.69 LONG-TERM (CURRENT) USE OF OTHER MEDICATIONS 07/07/2009 SHAWNAL PHUC DIEGO L 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, TOBACCO USE DISORDER 07/07/2009 MADL PHUC DIEGO L V58.69 LONG-TERM (CURRENT) USE OF OTHER MEDICATIONS 07/07/2009 CHELA CABLE ASSEMBLER, PAVAN R 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, TOBACCO USE DISORDER 07/07/2009 CHELA DIEGO, PAVAN R V58.69 LONG-TERM (CURRENT) USE OF OTHER MEDICATIONS 07/07/2009 WHIT LOVELL DO K 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, TOBACCO USE DISORDER 07/07/2009 WHIT LOVELL DO K V58.69 LONG-TERM (CURRENT) USE OF OTHER MEDICATIONS 07/07/2009 JOHN DIEGO MORE S 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, TOBACCO [...] TOBACCO USE DISORDER 07/07/2009 PHUC AMIN APRN L V58.69 LONG-TERM (CURRENT) USE OF OTHER MEDICATIONS 09/20/2009 WHIT LOVELL DO 782.3 Edema 09/20/2009 782.3 Edema 09/20/2009 WHIT LOVELL DO 782.3 Edema 09/20/2009 782.3 Edema 09/20/2009 VERA SHORE PA-C 782.3 Edema 09/20/2009 782.3 Edema 09/20/2009 782.3 Edema 09/20/2009 REBEL SOARES MD 782.3 Edema 09/20/2009 ELVIRA CORREIA, OSEAS Lakhani 782.3 Edema 09/20/2009 LOVELL DO, WHIT K 782.3 Edema 09/20/2009 MADL CABLE ASSEMBLER, PHUC L 782.3 Edema 09/20/2009 CHELA CABLE ASSEMBLER, PAVAN R 782.3 Edema 09/20/2009 LOVELL DO, WHIT K 782.3 Edema 09/20/2009 OJHN CABLE ASSEMBLER, MORE S 782.3 Edema 09/20/2009 ELVIRA CORREIA, OSEAS Lakhani 782.3 Edema 09/20/2009 OSEAS FELIX MD 782.3 Edema 09/20/2009 LOVELL DO, WHIT K 782.3 Edema 09/20/2009 MADL CABLE ASSEMBLER, PHUC L 782.3 Edema 12/29/2009 LOVELL DO, [...] DO, WHIT K 786.2 Cough 12/29/2009 MADL CABLE ASSEMBLER, PHUC L 486 Pneumonia Unspecified 12/29/2009 MADL CABLE ASSEMBLER, PHUC L 786.2 Cough 12/29/2009 CHELA CABLE ASSEMBLER, PAVAN R 486 Pneumonia Unspecified 12/29/2009 CHELA CABLE ASSEMBLER, PAVAN R 786.2 Cough 12/29/2009 LOVELL DO, WHIT K 486 Pneumonia Unspecified 12/29/2009 LOVELL , WHIT K 786.2 Cough 12/29/2009 JOHN CABLE ASSEMBLER, MORE S 486 Pneumonia Unspecified 12/29/2009 JOHN CABLE ASSEMBLER, MORE S 786.2 Cough 12/29/2009 OSEAS FELIX MD N 486 Pneumonia Unspecified 12/29/2009 ELVIRA CORREIA, OSEAS Lakhani 786.2 Cough 12/29/2009 ELVIRA CORREIA, OSEAS N 486 Pneumonia Unspecified 12/29/2009 ELVIRA CORREIA, OSEAS N 786.2 Cough 12/29/2009 LOVELL DO, WHIT K 486 Pneumonia Unspecified 12/29/2009 LOVELL DO, WHIT K 786.2 Cough 12/29/2009 MADL CABLE ASSEMBLER, PHUC L 486 Pneumonia Unspecified 12/29/2009 MADL CABLE ASSEMBLER, PHUC L 786.2 Cough 01/18/2010 Ot 272.4 [...] WHIT LOVELL DO V04.81 Flu Shot 03/16/2010 MADL CABLE ASSEMBLER, PHUC L 466.0 Bronchitis, Acute 03/16/2010 MADL CABLE ASSEMBLER, PHUC L V03.82 Pcv7 Pcv13 Pcv23, Streptococcus Pneumoniae [pneumococcus] 03/16/2010 MADL CABLE ASSEMBLER, PHUC L V04.81 Flu Shot 03/16/2010 CHELA CABLE ASSEMBLER, PAVAN R 466.0 Bronchitis, Acute 03/16/2010 CHELA CABLE ASSEMBLER, PAVAN R V03.82 Pcv7 Pcv13 Pcv23, Streptococcus Pneumoniae [pneumococcus] 03/16/2010 CHELA JEANN, PAVAN R V04.81 Flu Shot 03/16/2010 WHIT LOVELL DO K 466.0 Bronchitis, Acute 03/16/2010 WHIT LOVELL DO K V03.82 Pcv7 Pcv13 Pcv23, Streptococcus Pneumoniae [pneumococcus] 03/16/2010 WHIT LOVELL DO K V04.81 Flu Shot 03/16/2010 SONIA LOPEZ APRNNDA S 466.0 Bronchitis, Acute 03/16/2010 SONIA LOPEZ APRNNDA S V03.82 Pcv7 Pcv13 Pcv23, Streptococcus Pneumoniae [...] FELIX MD N V04.81 Flu Shot 03/16/2010 WHIT LOVELL DO K 466.0 Bronchitis, Acute 03/16/2010 WHIT LOVELL DO K V03.82 Pcv7 Pcv13 Pcv23, Streptococcus Pneumoniae [pneumococcus] 03/16/2010 SHEA LOVELL DOA K V04.81 Flu Shot 03/16/2010 SHAWNAL CABLE ASSEMBLERWENDY LakhaniA L 466.0 Bronchitis, Acute 03/16/2010 MADL CABLE ASSEMBLERWENDYA L V03.82 Pcv7 Pcv13 Pcv23, Streptococcus Pneumoniae [pneumococcus] 03/16/2010 SHAWNAL BRANDIE, PHUC L V04.81 Flu Shot 05/15/2010 Ot [...] K 724.3 SCIATICA 12/19/2010 724.3 SCIATICA 12/19/2010 SILVIANO MILLER, VERA Heredia 724.3 SCIATICA 12/19/2010 724.3 SCIATICA 12/19/2010 724.3 SCIATICA 12/19/2010 FANY CORREIA, REBEL 724.3 SCIATICA 12/19/2010 ELVIRA CORREAI, OSEAS Lakhani 724.3 SCIATICA 12/19/2010 WHIT LOVELL DO K 724.3 SCIATICA 12/19/2010 PHUC AMIN APRN L 724.3 SCIATICA 12/19/2010 PAVAN YORK APRN R 724.3 SCIATICA 12/19/2010 LOVELL WHIT TORRES K 724.3 SCIATICA 12/19/2010 JOHN DIEGO MORE S 724.3 SCIATICA 12/19/2010 ELVIRA CORREIA, OSEAS N 724.3 SCIATICA 12/19/2010 ELVIRA CORREIA, OSEAS N 724.3 SCIATICA 12/19/2010 WHIT LOVELL DO [...] HYPERTENSION 03/17/2011 Ot 414.01 CORONARY ATHEROSCLEROSIS OF [place] CORON 03/17/2011 Ot 440.1 RENAL ARTERY ATHEROSCLER 03/17/2011 Ot 443.9 PERIPH VASCULAR DIS NOS 03/17/2011 Ot 593.81 RENAL VASCULAR DISORDER 03/17/2011 Ot 593.9 RENAL URETERAL DIS NOS 03/17/2011 Ot 790.29 OTHER ABNORMAL GLUCOSE 03/17/2011 Ot 996.74 OTH COMPL DUE TO OTH VASCULAR DEVICE,IMP 04/04/2011 NAS TORRES WHIT K 401.0 HYPERTENSION MALIGNANT ESSENTIAL 04/04/2011 NAS TORRES WHIT K 414.00 CAD 04/04/2011 401.0 HYPERTENSION MALIGNANT ESSENTIAL 04/04/2011 414.00 CAD 04/04/2011 NAS TORRES WHIT K 401.0 HYPERTENSION MALIGNANT ESSENTIAL 04/04/2011 NAS TORRES WHIT K 414.00 CAD 04/04/2011 401.0 HYPERTENSION [...] TORRES WHIT K 414.00 CAD 04/04/2011 MADL CABLE ASSEMBLER, PHUC L 401.0 HYPERTENSION MALIGNANT ESSENTIAL 04/04/2011 MADL CABLE ASSEMBLER, PHUC L 414.00 CAD 04/04/2011 CHELA CABLE ASSEMBLER, PAVAN R 401.0 HYPERTENSION MALIGNANT ESSENTIAL 04/04/2011 CHELA CABLE ASSEMBLER, PAVAN R 414.00 CAD 04/04/2011 NAS TORRES WHIT K 401.0 HYPERTENSION MALIGNANT ESSENTIAL 04/04/2011 NAS TORRES, WHIT K 414.00 CAD 04/04/2011 JOHN CABLE ASSEMBLER, MORE S 401.0 HYPERTENSION MALIGNANT ESSENTIAL 04/04/2011 JOHN CABLE ASSEMBLER, MORE S 414.00 CAD 04/04/2011 OSEAS FELIX MD N 401.0 HYPERTENSION MALIGNANT ESSENTIAL 04/04/2011 OSEAS FELIX MD 414.00 CAD 04/04/2011 OSEAS FELIX MD 401.0 HYPERTENSION MALIGNANT ESSENTIAL 04/04/2011 OSEAS FELIX MD N 414.00 CAD 04/04/2011 WHIT LOVELL DO K 401.0 HYPERTENSION MALIGNANT ESSENTIAL 04/04/2011 WHIT LOVELL DO K 414.00 CAD 04/04/2011 MADL CABLE ASSEMBLER, PHUC L 401.0 HYPERTENSION MALIGNANT ESSENTIAL 04/04/2011 MADL CABLE ASSEMBLER, PHUC L 414.00 CAD 06/01/2011 WHIT LOVELL [...] The Teeth And Supporting Structures 06/01/2011 ELOISA CABLE ASSEMBLERPHUC Lakhani L 465.9 Acute Upper Respiratory Infections Of Unspecified Site 06/01/2011 PHUC AMIN APRN L 525.9 Unspecified Disorder Of The Teeth And Supporting Structures 06/01/2011 CHELA CABLE ASSEMBLER PAVAN R 465.9 Acute Upper Respiratory Infections Of Unspecified Site 06/01/2011 CHELA CABLE ASSEMBLER, PAVAN R 525.9 Unspecified Disorder Of The Teeth And Supporting Structures 06/01/2011 WHIT LOVELL DO K 465.9 Acute Upper Respiratory Infections Of Unspecified Site 06/01/2011 WHIT LOVELL DO K 525.9 Unspecified Disorder Of The Teeth And Supporting Structures 06/01/2011 MORE LOPEZ APRN S 465.9 Acute Upper Respiratory Infections Of Unspecified Site 06/01/2011 JOHN DIEGO MORE S 525.9 Unspecified Disorder Of The Teeth [...] Of The Teeth And Supporting Structures 06/01/2011 PHUC AMIN APRN L 465.9 Acute Upper Respiratory Infections Of Unspecified Site 06/01/2011 PHUC AMIN APRN 525.9 Unspecified Disorder Of The Teeth And Supporting Structures 06/30/2011 WHIT LOVELL DO 079.99 Viral Syndrome 06/30/2011 079.99 Viral Syndrome 06/30/2011 WHIT LOVELL DO 079.99 Viral Syndrome 06/30/2011 079.99 Viral Syndrome 06/30/2011 VERA SHORE PA-C 079.99 Viral Syndrome 06/30/2011 079.99 Viral Syndrome 06/30/2011 079.99 Viral Syndrome 06/30/2011 REBEL SOARES MD 079.99 Viral Syndrome 06/30/2011 OSEAS FELIX MD 079.99 Viral Syndrome 06/30/2011 WHIT LOVELL DO 079.99 Viral Syndrome 06/30/2011 PHUC AMIN APRN 079.99 Viral Syndrome 06/30/2011 PAVAN YORK APRN 079.99 Viral Syndrome 06/30/2011 WHIT LOVELL DO 079.99 Viral Syndrome 06/30/2011 MORE LOPEZ APRN S 079.99 Viral Syndrome 06/30/2011 OSEAS FELIX MD 079.99 Viral Syndrome 06/30/2011 OSEAS FELIX MD 079.99 Viral Syndrome 06/30/2011 WHIT LOVELL DO 079.99 Viral Syndrome 06/30/2011 PHUC AMIN APRN 079.99 Viral Syndrome 08/08/2011 WHIT LOVELL DO [...] KIDNEY DISEASE UNSPECIFIED 08/08/2011 MORE LOPEZ APRN S 585.9 CHRONIC KIDNEY DISEASE UNSPECIFIED 08/08/2011 OSEAS FELIX MD N 585.9 CHRONIC KIDNEY DISEASE UNSPECIFIED 08/08/2011 OSEAS [...] NOS 09/21/2011 Ot 414.01 CORONARY ATHEROSCLEROSIS OF [place] CORON 09/21/2011 Ot 440.1 RENAL ARTERY ATHEROSCLER [...] 785.0 TACHYCARDIA UNSPECIFIED 10/26/2011 WHIT LOVELL DO K 790.29 ABNORMAL GLUCOSE 10/26/2011 785.0 TACHYCARDIA UNSPECIFIED 10/26/2011 790.29 ABNORMAL GLUCOSE 10/26/2011 WHIT LOVELL DO K 785.0 Tachycardia Unspecified 10/26/2011 WHIT LOVELL DO K 790.29 Abnormal Glucose 10/26/2011 785.0 Tachycardia Unspecified 10/26/2011 790.29 Abnormal Glucose 10/26/2011 SILVIANO MILLER, VERA M 785.0 Tachycardia Unspecified 10/26/2011 VERA SHORE [...] WHIT K 790.29 Abnormal Glucose 10/26/2011 MADL CABLE ASSEMBLER, PHUC L 785.0 Tachycardia Unspecified 10/26/2011 MADL CABLE ASSEMBLER, PHUC L 790.29 Abnormal Glucose 10/26/2011 CHELA CABLE ASSEMBLER, PAVAN R 785.0 Tachycardia Unspecified 10/26/2011 CHELA CABLE ASSEMBLER, PAVAN R 790.29 Abnormal Glucose 10/26/2011 LOVELL DO, WHIT K 785.0 Tachycardia Unspecified 10/26/2011 NAS DO, WHIT K 790.29 Abnormal Glucose 10/26/2011 JOHN CABLE ASSEMBLER, MORE S 785.0 Tachycardia Unspecified 10/26/2011 JOHN CABLE ASSEMBLER, MORE S 790.29 Abnormal Glucose 10/26/2011 OSEAS FELIX MD N 785.0 Tachycardia Unspecified 10/26/2011 OSEAS FELIX MD N 790.29 Abnormal Glucose 10/26/2011 OSEAS FELIX MD N 785.0 Tachycardia Unspecified 10/26/2011 OSEAS FELIX MD N 790.29 Abnormal Glucose 10/26/2011 LOVELL DO, WHIT K 785.0 Tachycardia Unspecified 10/26/2011 LOVELL DO, WHIT K 790.29 Abnormal Glucose 10/26/2011 MADL CABLE ASSEMBLER, PUHC L 785.0 Tachycardia Unspecified 10/26/2011 MADL CABLE ASSEMBLER, PHUC L 790.29 Abnormal Glucose 11/02/2011 LOVELL DO, WHIT K 782.3 EDEMA 11/02/2011 782.3 EDEMA 11/02/2011 LOVELL , WHIT K 782.3 EDEMA 11/02/2011 782.3 EDEMA 11/02/2011 VERA SHORE PA-C 782.3 EDEMA 11/02/2011 782.3 EDEMA 11/02/2011 782.3 EDEMA 11/02/2011 FANY CORREIA, REBEL 782.3 EDEMA 11/02/2011 ELVIRA CORREIA, OSEAS N 782.3 EDEMA 11/02/2011 NAS TORRES, WHIT K 782.3 EDEMA 11/02/2011 ELOISA CABLE ASSEMBLERPHUC Lakhani L 782.3 EDEMA 11/02/2011 PAVAN YORK APRN R 782.3 EDEMA 11/02/2011 NAS TORRES, WHIT K 782.3 EDEMA 11/02/2011 JOHN DIEGO, MORE S 782.3 EDEMA 11/02/2011 OSEAS FELIX MD N 782.3 EDEMA 11/02/2011 OSEAS FELIX MD N 782.3 EDEMA 11/02/2011 NAS TORRES, WHIT K 782.3 EDEMA 11/02/2011 ELOISA DIEGO, PHUC L 782.3 EDEMA 01/22/2012 Ot 574.20 CHOLELITHIASIS NOS 01/22/2012 Ot 789.00 ABDOMINAL PAIN, UNSPECIFIED SITE 04/02/2012 NAS TORRES WHIT K 462 PHARYNGITIS ACUTE 04/02/2012 NAS TORRESWHIT K 465.9 UPPER RESPIRATORY INFECTION 04/02/2012 462 PHARYNGITIS ACUTE 04/02/2012 465.9 UPPER RESPIRATORY INFECTION 04/02/2012 NAS TORRESSHEAA K 462 Pharyngitis Acute 04/02/2012 NAS TORRES WHIT K 465.9 Upper Respiratory Infection 04/02/2012 462 [...] MD 465.9 Upper Respiratory Infection 04/02/2012 OSEAS FLEIX MD N 462 Pharyngitis Acute 04/02/2012 OSEAS FELIX MD 465.9 Upper Respiratory Infection 04/02/2012 LOVELL DO, WHIT K 462 Pharyngitis Acute 04/02/2012 LOVELL DO, WHIT K 465.9 Upper Respiratory Infection 04/02/2012 MADL CABLE ASSEMBLER, PHUC L 462 Pharyngitis Acute 04/02/2012 MADL CABLE ASSEMBLER, PHUC L 465.9 Upper Respiratory Infection 04/02/2012 CHELA CABLE ASSEMBLER, PAVAN R 462 Pharyngitis Acute 04/02/2012 CHELA CABLE ASSEMBLER, PAVAN R 465.9 Upper Respiratory Infection 04/02/2012 LOVELL DO, WHIT K 462 Pharyngitis Acute 04/02/2012 SHEA LOVELL DOA K 465.9 Upper Respiratory Infection 04/02/2012 JOHN CABLE ASSEMBLER, MORE S 462 Pharyngitis Acute 04/02/2012 JOHN CABLE ASSEMBLER, MORE S 465.9 Upper Respiratory Infection 04/02/2012 OSEAS FELIX MD N 462 Pharyngitis Acute 04/02/2012 OSEAS FELIX MD N 465.9 Upper Respiratory Infection 04/02/2012 OSEAS FELIX MD N 462 Pharyngitis Acute 04/02/2012 OSEAS FELIX MD N 465.9 Upper Respiratory Infection 04/02/2012 LOVELL DO, WHIT K 462 Pharyngitis Acute 04/02/2012 LOVELL DO WHIT K 465.9 Upper Respiratory Infection 04/02/2012 ELOISA CABLE ASSEMBLER, PHUC L 462 Pharyngitis Acute 04/02/2012 ELOISA CABLE ASSEMBLER, PHUC L 465.9 Upper Respiratory Infection 08/06/2012 692.2 CONTACT DERMATITIS AND OTHER ECZEMA DUE TO SOLVENTS 08/06/2012 SILVIANO MILLER, VERA Heredia 692.2 CONTACT DERMATITIS AND OTHER ECZEMA DUE TO SOLVENTS 08/06/2012 692.2 Contact Dermatitis And Other Eczema Due To Solvents 08/06/2012 692.2 Contact Dermatitis And Other Eczema Due To Solvents 08/06/2012 REBEL SOARES MD 692.2 Contact Dermatitis And Other Eczema Due To Solvents 08/06/2012 OSEAS FELIX MD N 692.2 Contact Dermatitis And Other Eczema Due To Solvents 08/06/2012 SHEA LOVELL DOA K 692.2 Contact Dermatitis And Other Eczema Due To Solvents 08/06/2012 PHUC AMIN APRN L 692.2 Contact Dermatitis And Other Eczema Due To Solvents 08/06/2012 ROBIN YORK APRNINA R 692.2 Contact Dermatitis And Other Eczema [...] 214.8 LIPOMA OF OTHER SPECIFIED SITES 08/30/2012 ROBIN YORK APRNINA R 214.8 LIPOMA OF OTHER SPECIFIED SITES 08/30/2012 SHEA LOVELL DOA K 214.8 LIPOMA OF OTHER SPECIFIED SITES 08/30/2012 MORE LOPEZ APRN S 214.8 LIPOMA OF OTHER SPECIFIED SITES 08/30/2012 OSEAS FELIX MD N 214.8 LIPOMA OF OTHER SPECIFIED SITES 08/30/2012 ELVIRA MD, OSEAS N 214.8 LIPOMA OF OTHER SPECIFIED SITES 08/30/2012 WHIT LOVELL DO K 214.8 LIPOMA OF OTHER SPECIFIED SITES 08/30/2012 PHUC AMIN APRN 214.8 LIPOMA OF OTHER SPECIFIED SITES 11/11/2012 RALPH CORREIA, MARGAUX Feliz Ot 272.4 HYPERLIPIDEMIA NEC/NOS 11/11/2012 RALPH CORREIA, MARGAUX Feliz Ot 276.1 HYPOSMOLALITY 11/11/2012 MARGAUX ROSAS MD Ot 285.9 ANEMIA NOS 11/11/2012 RALPH CORREIA, MARGAUX Feliz Ot 355.9 MONONEURITIS NOS 11/11/2012 RALPH CORREIA, MARGAUX Feliz Ot 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, ONE EYE 11/11/2012 RALPH CORREIA, MARGAUX Feliz Ot 403.90 HYPTNSV CHR KID DIS, UNSPEC, W CHR KD ST 11/11/2012 MARGAUX ROSAS MD Ot 443.9 PERIPH VASCULAR DIS NOS 11/11/2012 MARGAUX ORSAS MD Ot 496 CHR AIRWAY OBSTRUCT NEC 11/11/2012 MARGAUX ROSAS MD Ot 530.81 ESOPHAGEAL REFLUX 11/11/2012 MARGAUX ROSAS MD Ot 558.9 NONINF GASTROENTERIT NEC 11/11/2012 MARGAUX ROSAS MD Ot 584.9 ACUTE RENAL FAILURE, UNSPECIFIED 11/11/2012 MARGAUX ROSAS MD Ot 585.3 CHRONIC KIDNEY DISEASE, STAGE III (MODER 11/11/2012 MARGAUX ROSAS MD Ot 724.5 BACKACHE NOS 11/11/2012 MARGAUX ROSAS MD Ot 788.30 UNSPECIFIED URINARY INCONTINENCE 06/11/2013 OSEAS FELIX MD 522.5 PERIAPICAL ABSCESS WITHOUT SINUS 06/11/2013 WHIT LOVELL DO 522.5 PERIAPICAL ABSCESS WITHOUT SINUS 06/11/2013 PHUC AMIN APRN 522.5 PERIAPICAL ABSCESS WITHOUT SINUS 06/11/2013 PAVAN YORK APRN 522.5 PERIAPICAL ABSCESS WITHOUT SINUS 06/11/2013 WHIT LOVELL DO 522.5 PERIAPICAL ABSCESS WITHOUT SINUS 06/11/2013 JOHN DIEGO MORE S 522.5 PERIAPICAL ABSCESS WITHOUT SINUS 06/11/2013 OSEAS [...] - SMOKING CESSATION 06/30/2013 WHIT LOVELL DO K V65.42 COUNSELING - SMOKING CESSATION 06/30/2013 PHUC AMIN APRN V65.42 COUNSELING - SMOKING CESSATION 07/06/2013 MAGDALENA CORREIA, BRITNEY Peters Ot 789.01 ABDOMINAL PAIN, RIGHT UPPER QUADRANT 10/08/2013 PHUC AMIN APRN 521.09 OTHER DENTAL CARIES 10/08/2013 PAVAN YORK APRN 521.09 OTHER DENTAL CARIES 10/08/2013 WHIT LOVELL DO 521.09 OTHER DENTAL CARIES 10/08/2013 MORE LOPEZ APRN 521.09 OTHER DENTAL CARIES 10/08/2013 OSEAS FELIX MD N 521.09 OTHER DENTAL CARIES 10/08/2013 OSEAS FELIX MD 521.09 OTHER DENTAL CARIES 10/08/2013 WHIT LOVELL DO 521.09 OTHER DENTAL CARIES 10/08/2013 PHUC AMIN APRN 521.09 OTHER DENTAL CARIES 10/30/2013 PAVAN YORK APRN 443.9 PERIPHERAL VASCULAR DISEASE UNSPECIFIED 10/30/2013 WHIT LOVELL DO 443.9 PERIPHERAL VASCULAR DISEASE UNSPECIFIED 10/30/2013 JOHN CABLE ASSEMBLER, MORE S 443.9 PERIPHERAL VASCULAR DISEASE UNSPECIFIED 10/30/2013 OSEAS FELIX MD N 443.9 PERIPHERAL VASCULAR DISEASE UNSPECIFIED 10/30/2013 OSEAS FELIX MD 443.9 PERIPHERAL VASCULAR DISEASE UNSPECIFIED 10/30/2013 LOVELL DO, WHIT K 443.9 PERIPHERAL VASCULAR DISEASE UNSPECIFIED 10/30/2013 MADL CABLE ASSEMBLER, PHUC L 443.9 PERIPHERAL VASCULAR DISEASE UNSPECIFIED 01/15/2014 LOVELL DO, WHIT K 272.1 HYPERTRIGLYCERIDEMIA 01/15/2014 LOVELL DO, WHIT K 285.21 ANEMIA OF CHRONIC KIDNEY DISEASE 01/15/2014 LOVELL DO, WHIT K 790.6 LIVER FUNCTION TEST, ABNORMAL 01/15/2014 JOHN DIEGO MORE S 272.1 HYPERTRIGLYCERIDEMIA 01/15/2014 JOHNMARIELOS DIEGO MORE S 285.21 ANEMIA OF CHRONIC KIDNEY DISEASE 01/15/2014 JOHN DIEGO MORE S 790.6 LIVER FUNCTION TEST, ABNORMAL 01/15/2014 OSEAS FELIX MD N 272.1 HYPERTRIGLYCERIDEMIA 01/15/2014 OSEAS FELIX MD N 285.21 ANEMIA OF CHRONIC KIDNEY DISEASE 01/15/2014 OSEAS FELIX MD N 790.6 LIVER FUNCTION TEST, ABNORMAL 01/15/2014 OSEAS FELIX MD N 272.1 HYPERTRIGLYCERIDEMIA 01/15/2014 OSEAS FELIX MD N 285.21 ANEMIA OF CHRONIC KIDNEY DISEASE 01/15/2014 OSEAS FELIX MD N 790.6 LIVER FUNCTION TEST, ABNORMAL 01/15/2014 LOVELL DOSHEAA K 272.1 HYPERTRIGLYCERIDEMIA 01/15/2014 LOVELL DO WHIT K 285.21 ANEMIA OF CHRONIC KIDNEY DISEASE 01/15/2014 LOVELL DO WIHT K 790.6 LIVER FUNCTION TEST, ABNORMAL 01/15/2014 MADL CABLE ASSEMBLER, PHUC L 272.1 HYPERTRIGLYCERIDEMIA 01/15/2014 MADL CABLE ASSEMBLER, PHUC L 285.21 ANEMIA OF CHRONIC KIDNEY DISEASE 01/15/2014 MADL CABLE ASSEMBLER, PHUC L 790.6 LIVER FUNCTION TEST, ABNORMAL 01/24/2014 SONIA LOPEZ APRNNDA S 892.1 OPEN WOUND OF FOOT EXCEPT TOE(S) ALONE COMPLICATED 01/24/2014 SONIA LOPZE APRNNDA Latisha V06.1 TDAP DX 01/24/2014 OSEAS FELIX MD N 892.1 OPEN WOUND OF FOOT EXCEPT TOE(S) ALONE COMPLICATED 01/24/2014 OSEAS FELIX MD N V06.1 TDAP DX 01/24/2014 OSEAS FELIX MD N 892.1 OPEN WOUND OF FOOT EXCEPT TOE(S) ALONE COMPLICATED 01/24/2014 OSEAS FELIX MD N V06.1 TDAP DX 01/24/2014 LOVELL DOWHIT K 892.1 OPEN WOUND OF FOOT EXCEPT [...] LATE EFF ACCIDENT NEC 01/26/2014 МАРИЯ MIRZA CABLE ASSEMBLER Ot 682.7 CELLULITIS OF FOOT 01/26/2014 МАРИЯ MIRZA CABLE ASSEMBLER Ot 906.1 LATE EFF OPEN WND EXTREM 01/26/2014 МАРИЯ MIRZA CABLE ASSEMBLER Ot E929.8 LATE EFF ACCIDENT NEC 02/19/2014 [...] E927.0 OVEREXERTION FROM SUDDEN STRENUOUS MOVEM 05/22/2014 OSEAS FELIX MD N 465.9 UPPER RESPIRATORY INFECTION 05/22/2014 OSEAS FELIX MD 465.9 UPPER RESPIRATORY INFECTION 05/22/2014 LOVELL DOWHIT K 465.9 UPPER RESPIRATORY INFECTION 05/22/2014 EVELYN AMIN APRNNYScott Teixeira 465.9 UPPER RESPIRATORY INFECTION 05/25/2014 Ot 789.00 [...] Ot 599.0 URIN TRACT INFECTION NOS 05/26/2014 MARGAUX ROSAS MD Ot 787.91 05/26/2014 MARGAUX ROSAS MD Ot 788.30 UNSPECIFIED URINARY INCONTINENCE 05/26/2014 MARGAUX ROSAS MD Ot V15.82 HISTORY OF TOBACCO USE 06/02/2014 OSEAS FELIX MD N 276.1 HYPOSMOLALITY AND/OR HYPONATREMIA 06/02/2014 OSEAS FELIX MD N 276.51 DEHYDRATION 06/02/2014 OSEAS FELIX MD N 599.0 URINARY TRACT INFECTION SITE NOT SPECIFIED 06/02/2014 LOVELL DO, WHIT K 276.1 HYPOSMOLALITY AND/OR HYPONATREMIA 06/02/2014 LOVELL DO, WHIT K 276.51 DEHYDRATION 06/02/2014 LOVELL DO, WHIT K 599.0 URINARY TRACT INFECTION SITE NOT SPECIFIED 06/02/2014 MADL CABLE ASSEMBLER, PHUC L 276.1 HYPOSMOLALITY AND/OR HYPONATREMIA 06/02/2014 MADL CABLE ASSEMBLER, PHUC L 276.51 DEHYDRATION 06/02/2014 MADL CABLE ASSEMBLER, PHUC L 599.0 URINARY TRACT INFECTION SITE NOT SPECIFIED 07/31/2014 LOVELL DO, WHIT K 564.00 CONSTIPATION 07/31/2014 LOVELL DO, WHIT K 723.1 CERVICALGIA 07/31/2014 LOVELL DO, WHIT K 787.20 DYSPHAGIA UNSPECIFIED 07/31/2014 MADL CABLE ASSEMBLER, PHUC L 564.00 CONSTIPATION 07/31/2014 MADL CABLE ASSEMBLER, PHUC L 723.1 CERVICALGIA 07/31/2014 MADL CABLE ASSEMBLER, PHUC L 787.20 DYSPHAGIA UNSPECIFIED 08/07/2014 Ot 789.00 08/28/2014 STANLEY ALTAMIRANO DO Ot 250.00 DIAB ANNETTE WO COMPL, TYPE II OR UNSPEC TY 08/28/2014 ADARSH TORRES STANLEY Lorraine Ot 403.90 HYPTNSV CHR KID DIS, UNSPEC, W CHR KD ST 08/28/2014 AUREA ALTAMIRANO DOA Lorraine Ot 585.3 CHRONIC KIDNEY DISEASE, STAGE III (MODER 08/28/2014 ADARSH TORRES STANLEY Lorraine Ot 599.0 URIN TRACT INFECTION NOS 08/28/2014 ADARSH TORRES STANLEY Lorraine Ot 789.03 ABDOMINAL PAIN, RIGHT LOWER QUADRANT 10/20/2014 VERA SCOTT Ot 723.1 10/20/2014 VERA SCOTT Ot 787.20 10/29/2014 VERA SCOTT Ot 723.1 10/29/2014 VERA SCOTT Ot 787.20 12/04/2014 Ot 789.00 12/04/2014 VERA SCOTT Ot 723.1 12/04/2014 VERA SCOTT Ot 787.20 12/04/2014 VERA DYER MD Ot 883.0 OPEN WOUND OF FINGER 12/04/2014 VERA DYER MD Ot E000.8 OTHER EXTERNAL CAUSE STATUS 12/04/2014 VERA DYER MD Ot E920.8 ACC-CUTTING INSTRUM NEC 12/05/2014 Ot 789.00 12/05/2014 VERA SCOTT Ot 723.1 12/05/2014 VERA SCOTT Ot 787.20 08/27/2015 МАРИЯ MIRZA APRN Ot K52.9 NONINFECTIVE GASTROENTERITIS AND COLITIS 08/30/2015 МАРИЯ MIRZA APRN Ot K52.9 NONINFECTIVE GASTROENTERITIS AND COLITIS 11/18/2015 MADL, PHUC L [employer] SURVEYOR Ot M79.604 PAIN IN RIGHT LEG 11/18/2015 MADLWENDYA L [employer] SURVEYOR Ot M79.89 OTHER SPECIFIED SOFT TISSUE DISORDERS 11/18/2015 MADLWENDYA L [employer] SURVEYOR Ot M79.604 PAIN IN RIGHT LEG 11/18/2015 MADLWENDYA L [employer] SURVEYOR Ot M79.89 OTHER SPECIFIED SOFT TISSUE DISORDERS 11/23/2015 MADL, PHUC L [employer] SURVEYOR Ot R07.89 OTHER CHEST PAIN 11/23/2015 MADL, PHUC L [employer] SURVEYOR Ot R93.8 ABNORMAL FINDINGS ON DIAGNOSTIC IMAGING 11/23/2015 MADL, PHUC L [employer] SURVEYOR Ot R07.89 OTHER CHEST PAIN 11/23/2015 MADL, PHUC L [employer] SURVEYOR Ot R93.8 ABNORMAL FINDINGS ON DIAGNOSTIC IMAGING 12/03/2015 BRITNEY NICHOLS MD Ot M25.512 PAIN IN LEFT SHOULDER 12/03/2015 BRITNEY NICHOLS MD Ot M54.12 RADICULOPATHY, CERVICAL REGION 12/03/2015 Ot 789.00 ABDOMINAL PAIN, UNSPECIFIED SITE 12/03/2015 VERA SCOTT Ot 723.1 CERVICALGIA 12/03/2015 VERA SCOTT Ot 787.20 DYSPHAGIA, UNSPECIFIED 12/03/2015 MADL, PHUC L [employer] SURVEYOR Ot M79.604 PAIN IN RIGHT LEG 12/03/2015 MADL, PHUC L [employer] SURVEYOR Ot M79.89 OTHER SPECIFIED SOFT TISSUE DISORDERS 12/03/2015 MADL, PHUC L [employer] SURVEYOR Ot R07.89 OTHER CHEST PAIN 12/03/2015 MADL, PHUC L MAR[employer] SURVEYOR Ot R93.8 ABNORMAL FINDINGS ON DIAGNOSTIC IMAGING 12/06/2015 BRITNEY NICHOLS MD Ot M25.512 PAIN IN LEFT SHOULDER 12/06/2015 BRITNEY NICHOLS MD Ot M54.12 RADICULOPATHY, CERVICAL REGION 02/04/2016 Ot 789.00 ABDOMINAL PAIN, UNSPECIFIED SITE 02/04/2016 VERA SCOTT Ot 723.1 CERVICALGIA 02/04/2016 VERA SCOTT Ot 787.20 DYSPHAGIA, UNSPECIFIED 02/04/2016 MADL, PHUC L [employer] SURVEYOR Ot M79.604 PAIN IN RIGHT LEG 02/04/2016 MADL, PHUC L [employer] SURVEYOR Ot M79.89 OTHER SPECIFIED SOFT TISSUE DISORDERS 02/04/2016 MADL, PHUC L MAR[employer] SURVEYOR Ot R07.89 OTHER CHEST PAIN 02/04/2016 MADL, PHUC L [employer] SURVEYOR Ot R93.8 ABNORMAL FINDINGS ON DIAGNOSTIC IMAGING 02/04/2016 МАРИЯ MIRZA APRN Ot E11.9 TYPE 2 DIABETES MELLITUS WITHOUT COMPLIC 02/04/2016 МАРИЯ MIRZA CABLE ASSEMBLER Ot I10 ESSENTIAL (PRIMARY) HYPERTENSION 02/04/2016 МАРИЯ MIRZA APRN Ot J44.9 CHRONIC OBSTRUCTIVE PULMONARY DISEASE, U 02/04/2016 МАРИЯ MIRZA APRN Ot M54.6 PAIN IN THORACIC SPINE 02/04/2016 МАРИЯ MIRZA APRN Ot Z79.899 OTHER RETIREMENT (CURRENT) DRUG THERAPY 02/04/2016 МАРИЯ MIRZA CABLE ASSEMBLER Ot Z90.5 ACQUIRED ABSENCE OF KIDNEY 02/07/2016 МАРИЯ MIRZA CABLE ASSEMBLER Ot E11.9 TYPE 2 DIABETES MELLITUS WITHOUT COMPLIC 02/07/2016 МАРИЯ MIRZA CABLE ASSEMBLER Ot I10 ESSENTIAL (PRIMARY) HYPERTENSION 02/07/2016 МАРИЯ MIRZA APRN Ot J44.9 CHRONIC OBSTRUCTIVE PULMONARY DISEASE, U 02/07/2016 МАРИЯ MIRZA APRN Ot M54.6 PAIN IN THORACIC SPINE 02/07/2016 МАРИЯ MIRZA APRN Ot Z79.899 OTHER RETIREMENT (CURRENT) DRUG THERAPY 02/07/2016 МАРИЯ MIRZA APRN Ot Z90.5 ACQUIRED ABSENCE OF KIDNEY 04/24/2016 Ot 789.00 ABDOMINAL PAIN, UNSPECIFIED SITE 04/24/2016 VERA SCOTT Ot 723.1 CERVICALGIA 04/24/2016 VERA SCOTT Ot 787.20 DYSPHAGIA, UNSPECIFIED 04/24/2016 MADL, PHUC L [employer] SURVEYOR Ot M79.604 PAIN IN RIGHT LEG 04/24/2016 MADL, PHUC L [employer] SURVEYOR Ot M79.89 OTHER SPECIFIED SOFT TISSUE DISORDERS 04/24/2016 MADL, PHUC L MAR[employer] SURVEYOR Ot R07.89 OTHER CHEST PAIN 04/24/2016 MADL, PHUC L MARINE [employer] SURVEYOR Ot R93.8 ABNORMAL FINDINGS ON DIAGNOSTIC IMAGING 04/24/2016 MADL, PHUC L MARINE [employer] SURVEYOR Ot R07.89 OTHER CHEST PAIN 04/24/2016 MADL, PHUC L MARINE [employer] SURVEYOR Ot R93.8 ABNORMAL FINDINGS ON DIAGNOSTIC IMAGING 04/24/2016 MADL, PHUC L MARINE [employer]GO SURVEYOR Ot M79.604 PAIN IN RIGHT LEG 04/24/2016 MADL, PHUC L MARINE [employer] SURVEYOR Ot M79.89 OTHER SPECIFIED SOFT TISSUE DISORDERS 04/24/2016 PHUC AMIN [employer] SURVEYOR Ot R07.89 OTHER CHEST PAIN 04/24/2016 MADPHUC Teixeira [employer] SURVEYOR Ot R93.8 ABNORMAL FINDINGS ON DIAGNOSTIC IMAGING 04/24/2016 PHUC AMIN MAR[employer] SURVEYOR Ot M79.604 PAIN IN RIGHT LEG 04/24/2016 MADLPHUC MARINE [employer]GO SURVEYOR Ot M79.89 OTHER SPECIFIED SOFT TISSUE DISORDERS 04/25/2016 MADLPHUC MARINE CARGO SURVEYOR Ot M79.604 PAIN IN RIGHT LEG 04/25/2016 MADPHUC Teixeira [employer] SURVEYOR Ot M79.89 OTHER SPECIFIED SOFT TISSUE DISORDERS 04/25/2016 МАРИЯ MIRZA APRN Ot E11.9 TYPE 2 DIABETES MELLITUS WITHOUT COMPLIC 04/25/2016 МАРИЯ MIRZA CABLE ASSEMBLER Ot I10 ESSENTIAL (PRIMARY) HYPERTENSION 04/25/2016 МАРИЯ MIRZA CABLE ASSEMBLER Ot J44.9 CHRONIC OBSTRUCTIVE PULMONARY DISEASE, U 04/25/2016 МАРИЯ MIRZA CABLE ASSEMBLER Ot M54.6 PAIN IN THORACIC SPINE 04/25/2016 МАРИЯ MIRZA CABLE ASSEMBLER Ot Z79.899 OTHER RETIREMENT (CURRENT) DRUG THERAPY 04/25/2016 МАРИЯ MIRZA CABLE ASSEMBLER Ot Z90.5 ACQUIRED ABSENCE OF KIDNEY 04/25/2016 SHAWNAPHUC Teixeira MARINE CARGO SURVEYOR Ot I70.1 ATHEROSCLEROSIS OF RENAL ARTERY 04/25/2016 MADLWENDYA Lluvia [employer] SURVEYOR Ot I71.4 ABDOMINAL AORTIC ANEURYSM, WITHOUT RUPTU 04/25/2016 MADLPHUC MARINE [employer]GO SURVEYOR Ot K76.0 FATTY (CHANGE OF) LIVER, NOT ELSEWHERE C 04/25/2016 MADLWENDYA L [employer] SURVEYOR Ot R10.11 RIGHT UPPER QUADRANT PAIN 04/30/2016 MADLPHUC L MARINE [employer]GO SURVEYOR Ot I70.1 ATHEROSCLEROSIS OF RENAL ARTERY 04/30/2016 MADLWENDYA L MARINE [employer]GO SURVEYOR Ot I71.4 ABDOMINAL AORTIC ANEURYSM, WITHOUT RUPTU 04/30/2016 MADLWENDYA L MARINE [employer]GO SURVEYOR Ot K76.0 FATTY (CHANGE OF) LIVER, NOT ELSEWHERE C 04/30/2016 MADLWENDYA L MARINE [employer]GO SURVEYOR Ot R10.11 RIGHT UPPER QUADRANT PAIN 05/10/2016 PHUC AMIN MARINE [employer]GO SURVEYOR Ot I70.1 ATHEROSCLEROSIS OF RENAL ARTERY 05/10/2016 PHUC AMIN MAR[employer] SURVEYOR Ot I71.4 ABDOMINAL AORTIC ANEURYSM, WITHOUT RUPTU 05/10/2016 PHUC AMIN MAR[employer] SURVEYOR Ot K76.0 FATTY (CHANGE OF) LIVER, NOT ELSEWHERE C 05/10/2016 PHUC AMIN [employer] SURVEYOR Ot R10.11 RIGHT UPPER QUADRANT PAIN 05/10/2016 PHUC AMIN [employer] SURVEYOR Ot R07.89 OTHER CHEST PAIN 05/10/2016 MADLPHUC MARINE CARGO SURVEYOR Ot R93.8 ABNORMAL FINDINGS ON DIAGNOSTIC IMAGING 05/10/2016 PHUC AMIN [employer] SURVEYOR Ot M79.604 PAIN IN RIGHT LEG 05/10/2016 PHUC AMIN [employer] SURVEYOR Ot M79.89 OTHER SPECIFIED SOFT TISSUE DISORDERS 05/11/2016 MANISHA CORREIA, VERA T Ot 883.0 OPEN WOUND OF FINGER 05/11/2016 VERA DYER MD T Ot E000.8 OTHER EXTERNAL CAUSE STATUS 05/11/2016 VERA DYER MD Ot E920.8 ACC-CUTTING INSTRUM NEC 05/11/2016 МАРИЯ MIRZA APRN Ot E11.9 TYPE 2 DIABETES MELLITUS WITHOUT COMPLIC 05/11/2016 МАРИЯ MIRZA APRN Ot I10 ESSENTIAL (PRIMARY) HYPERTENSION 05/11/2016 МАРИЯ MIRZA APRN Ot J44.9 CHRONIC OBSTRUCTIVE PULMONARY DISEASE, U 05/11/2016 МАРИЯ MIRZA APRN Ot M54.6 PAIN IN THORACIC SPINE 05/11/2016 МАРИЯ MIRZA APRN Ot 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 05/11/2016 МАРИЯ MIRZA APRN Ot Z90.5 ACQUIRED ABSENCE OF KIDNEY 05/29/2016 NAVEEN FERRARO CABLE ASSEMBLER Ot R10.9 UNSPECIFIED ABDOMINAL PAIN 07/23/2016 МАРИЯ MIRZA APRN Ot E11.9 TYPE 2 DIABETES MELLITUS WITHOUT COMPLIC 07/23/2016 МАРИЯ MIRZA APRN Ot I10 ESSENTIAL (PRIMARY) HYPERTENSION 07/23/2016 МАРИЯ MIRZA APRN Ot J44.9 CHRONIC OBSTRUCTIVE PULMONARY DISEASE, U 07/23/2016 MIRZA, PETER J CABLE ASSEMBLER Ot L23.9 ALLERGIC CONTACT DERMATITIS, UNSPECIFIED 07/23/2016 МАРИЯ MIRZA CABLE ASSEMBLER Ot R21 RASH AND OTHER NONSPECIFIC SKIN ERUPTION 07/23/2016 МАРИЯ MIRZA CABLE ASSEMBLER Ot 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 07/23/2016 Ot 789.00 ABDOMINAL PAIN, UNSPECIFIED SITE 07/23/2016 VERA SCOTT Ot 723.1 CERVICALGIA 07/23/2016 VERA SCOTT Ot 787.20 DYSPHAGIA, UNSPECIFIED 07/23/2016 MADL, PHUC L [employer] SURVEYOR Ot M79.604 PAIN IN RIGHT LEG 07/23/2016 MADL, PHUC L [employer] SURVEYOR Ot M79.89 OTHER SPECIFIED SOFT TISSUE DISORDERS 07/23/2016 MADL, PHUC L MAR[employer] SURVEYOR Ot R07.89 OTHER CHEST PAIN 07/23/2016 MADL, PHUC L MAR[employer] SURVEYOR Ot R93.8 ABNORMAL FINDINGS ON DIAGNOSTIC IMAGING 07/23/2016 MADL, PHUC L MARINE [employer] SURVEYOR Ot I70.1 ATHEROSCLEROSIS OF RENAL ARTERY 07/23/2016 MADL, PHUC L MARINE [employer] SURVEYOR Ot I71.4 ABDOMINAL AORTIC ANEURYSM, WITHOUT RUPTU 07/23/2016 MADL, PHUC L MARINE [employer] SURVEYOR Ot K76.0 FATTY (CHANGE OF) LIVER, NOT ELSEWHERE C 07/23/2016 MADL, PHUC L MAR[employer] SURVEYOR Ot R10.11 RIGHT UPPER QUADRANT PAIN 07/23/2016 NAVEEN FERRARO CABLE ASSEMBLER Ot R10.9 UNSPECIFIED ABDOMINAL PAIN 07/25/2016 МАРИЯ MIRZA CABLE ASSEMBLER Ot E11.9 TYPE 2 DIABETES MELLITUS WITHOUT COMPLIC 07/25/2016 МАРИЯ MIRZA CABLE ASSEMBLER Ot I10 ESSENTIAL (PRIMARY) HYPERTENSION 07/25/2016 МАРИЯ MIRZA CABLE ASSEMBLER Ot J44.9 CHRONIC OBSTRUCTIVE PULMONARY DISEASE, U 07/25/2016 МАРИЯ MIRZA CABLE ASSEMBLER Ot L23.9 ALLERGIC CONTACT DERMATITIS, UNSPECIFIED 07/25/2016 МАРИЯ MIRZA CABLE ASSEMBLER Ot R21 RASH AND OTHER NONSPECIFIC SKIN ERUPTION 07/25/2016 МАРИЯ MIRZA CABLE ASSEMBLER Ot Z79.899 OTHER RETIREMENT (CURRENT) DRUG THERAPY 02/07/2017 VERA SCOTT Ot 723.1 CERVICALGIA 02/07/2017 VERA SCOTT Ot 787.20 DYSPHAGIA, UNSPECIFIED 02/07/2017 MADPHUC Teixeira [employer] SURVEYOR Ot M79.604 PAIN IN RIGHT LEG 02/07/2017 MADLPHUC MARINE CARGO SURVEYOR Ot M79.89 OTHER SPECIFIED SOFT TISSUE DISORDERS 02/07/2017 MADPHUC Teixeira MARINE [employer]GO SURVEYOR Ot R07.89 OTHER CHEST PAIN 02/07/2017 MADLPHUC MARINE CARGO SURVEYOR Ot R93.8 ABNORMAL FINDINGS ON DIAGNOSTIC IMAGING 02/07/2017 MADLPHUC MARINE CARGO SURVEYOR Ot I70.1 ATHEROSCLEROSIS OF RENAL ARTERY 02/07/2017 MADLPHUC MARINE CARGO SURVEYOR Ot I71.4 ABDOMINAL AORTIC ANEURYSM, WITHOUT RUPTU 02/07/2017 MADPHUC Teixeira [employer]INE [employer]GO SURVEYOR Ot K76.0 FATTY (CHANGE OF) LIVER, NOT ELSEWHERE C 02/07/2017 MADLPHUC MARINE CARGO SURVEYOR Ot R10.11 RIGHT UPPER QUADRANT PAIN 02/07/2017 NAVEEN FERRARO APRN Ot R10.9 UNSPECIFIED ABDOMINAL PAIN 02/07/2017 SANDRA [...] VERA SCOTT Ot 787.20 DYSPHAGIA, UNSPECIFIED 02/08/2017 PHUC AMIN MAR[employer] SURVEYOR Ot M79.604 PAIN IN RIGHT LEG 02/08/2017 MADPHUC Teixeira [employer] SURVEYOR Ot M79.89 OTHER SPECIFIED SOFT TISSUE DISORDERS 02/08/2017 PHUC AMIN MAR[employer]GO SURVEYOR Ot R07.89 OTHER CHEST PAIN 02/08/2017 MADPHUC Teixeira MAR[employer]GO SURVEYOR Ot R93.8 ABNORMAL FINDINGS ON DIAGNOSTIC IMAGING 02/08/2017 PHUC AMIN MARINE [employer]GO SURVEYOR Ot I70.1 ATHEROSCLEROSIS OF RENAL ARTERY 02/08/2017 MADLPHUC MARINE CARGO SURVEYOR Ot I71.4 ABDOMINAL AORTIC ANEURYSM, WITHOUT RUPTU 02/08/2017 MADLPHUC MARINE CARGO SURVEYOR Ot K76.0 FATTY (CHANGE OF) LIVER, NOT ELSEWHERE C 02/08/2017 SHAWNALPHUC MARINE CARGO SURVEYOR Ot R10.11 RIGHT UPPER QUADRANT PAIN 02/08/2017 NAVEEN FERRARO CABLE ASSEMBLER Ot R10.9 UNSPECIFIED ABDOMINAL PAIN 02/09/2017 SANDRA [...] E11.22 TYPE 2 DIABETES MELLITUS W DIABETIC LITIGATION PARTNER 03/06/2017 ADARSH DO, STANLEY K Ot E78.00 [...] E11.22 TYPE 2 DIABETES MELLITUS W DIABETIC LITIGATION PARTNER 03/12/2017 ADARSH DO, STANLEY K Ot E78.00 PURE HYPERCHOLESTEROLEMIA, UNSPECIFIED 03/12/2017 ADARSH DO, STANLEY K Ot I12.9 HYPERTENSIVE CHRONIC KIDNEY DISEASE W ST 03/12/2017 ADARSH DO, STANLEY K Ot K21.9 GASTRO-ESOPHAGEAL REFLUX DISEASE WITHOUT 03/12/2017 ADARSH DO, STANLEY K Ot N18.9 CHRONIC KIDNEY DISEASE, UNSPECIFIED 03/12/2017 ADARSH DO, STANLEY K Ot N39.0 URINARY [...] ABSENCE OF OTHER ORGANS 08/29/2017 MAKENZIE CHAPMAN MD Ot I10 ESSENTIAL (PRIMARY) HYPERTENSION 08/29/2017 MAKENZIE CHAPMAN MD Ot I25.10 ATHSCL HEART DISEASE OF [place] CORONARY 08/29/2017 MAKENZIE CHAPMAN MD Ot I34.0 [...] MD Ot I25.10 ATHSCL HEART DISEASE OF [place] CORONARY 09/03/2017 MAKENZIE CHAPMAN MD Ot I34.0 [...] MD Ot I25.10 ATHSCL HEART DISEASE OF [place] CORONARY 09/12/2017 MAKENZIE CHAPMAN MD Ot I34.0 NONRHEUMATIC MITRAL (VALVE) INSUFFICIENC 09/12/2017 MAKENZIE CHAPMAN MD Ot I70.1 ATHEROSCLEROSIS OF RENAL ARTERY 09/12/2017 MAKENZIE CHAPMAN MD Ot I71.4 ABDOMINAL AORTIC ANEURYSM, WITHOUT RUPTU 09/12/2017 MAKENZIE CHAMPAN MD Ot R00.0 TACHYCARDIA, UNSPECIFIED 09/12/2017 MAKENZIE [...] DO Ot I25.10 ATHSCL HEART DISEASE OF [place] CORONARY 02/08/2018 MARYBETH REYNOSO DO Ot I70.1 [...] 02/08/2018 MARYBETH REYNOSO DO Ot Z79.899 OTHER RETIREMENT (CURRENT) DRUG THERAPY 02/08/2018 MARYBETH REYNOSO DO Ot Z87.891 PERSONAL HISTORY OF NICOTINE DEPENDENCE 02/08/2018 MARYBETH REYNOSO DO Ot Z91.19 PATIENT'S NONCOMPLIANCE W [facility] MEDICAL TR 02/08/2018 MARYBETH REYNOSO [...] DO Ot I25.10 ATHSCL HEART DISEASE OF [place] CORONARY 02/08/2018 MARYBETH REYNOSO DO Ot I70.1 [...] 02/08/2018 MARYBETH REYNOSO DO Ot 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 02/08/2018 MARYBETH REYNOSO DO Ot Z87.891 PERSONAL HISTORY OF NICOTINE DEPENDENCE 02/08/2018 MARYBETH REYNOSO DO Ot Z91.19 PATIENT'S NONCOMPLIANCE W [facility] MEDICAL TR 02/15/2018 MARYBETH REYNOSO DO Ot E11.40 TYPE 2 DIABETES MELLITUS WITH DIABETIC N 02/15/2018 MARYBETH REYNOSO DO Ot E78.5 HYPERLIPIDEMIA, UNSPECIFIED 02/15/2018 MARYBETH REYNOSO DO Ot F41.9 ANXIETY DISORDER, UNSPECIFIED 02/15/2018 MARYBETH REYNOSO DO Ot H54.40 BLINDNESS, ONE EYE, UNSPECIFIED EYE 02/15/2018 MARYBETH REYNOSO DO Ot I12.9 HYPERTENSIVE CHRONIC KIDNEY DISEASE W ST 02/15/2018 MARYBETH REYNOSO DO Ot I25.10 ATHSCL HEART DISEASE OF [place] CORONARY 02/15/2018 EDGARDO TORRES MARYBETH E Ot I70.1 ATHEROSCLEROSIS OF RENAL ARTERY 02/15/2018 EDGARDO TORRES MARYBETH Javid Ot I71.4 ABDOMINAL AORTIC ANEURYSM, WITHOUT RUPTU 02/15/2018 EDGARDO TORRES MARYBETH E Ot J44.9 CHRONIC OBSTRUCTIVE PULMONARY DISEASE, U 02/15/2018 EDGARDO TORRES MARYBETH E Ot M54.9 DORSALGIA, UNSPECIFIED 02/15/2018 MILESJavid TORRES MARYBETH E Ot N18.3 CHRONIC KIDNEY DISEASE, STAGE 3 (MODERAT 02/15/2018 EDGARDO TORRES MARYBETH E Ot R07.89 OTHER CHEST PAIN 02/15/2018 MILESJavid TORRES MARYBETH Javid Ot R32 UNSPECIFIED URINARY INCONTINENCE 02/15/2018 MILESJavid TORRES MARYBETH Javid Ot Z79.899 OTHER RETIREMENT (CURRENT) DRUG THERAPY 02/15/2018 MILESJavid TORRES MARYBETH E Ot Z87.891 PERSONAL HISTORY OF NICOTINE DEPENDENCE 02/15/2018 EDGARDO TORRES MARYBETH Hua Ot Z91.19 PATIENT'S NONCOMPLIANCE W [facility] MEDICAL TR 04/11/2018 APPLE CORDOBA Ot E11.59 TYPE 2 DIABETES MELLITUS WITH OT CIRCUL 04/11/2018 APPLE CORDOBA MARINE CARGO SURVEYOR Ot E78.00 PURE HYPERCHOLESTEROLEMIA, UNSPECIFIED 04/11/2018 ADALID APPLE MARINE [employer]GO SURVEYOR Ot I10 ESSENTIAL (PRIMARY) HYPERTENSION 04/11/2018 APPLE CORDOBAP Ot I25.10 ATHSCL HEART DISEASE OF [place] CORONARY 04/11/2018 APPLE CORDOBAP Ot I73.9 PERIPHERAL VASCULAR DISEASE, UNSPECIFIED 04/11/2018 APPLE CORDOBAP Ot J44.9 CHRONIC OBSTRUCTIVE PULMONARY DISEASE, U 04/11/2018 APPLE CORDOBAP Ot K21.9 GASTRO-ESOPHAGEAL REFLUX DISEASE WITHOUT 04/11/2018 APPLE CORDOBAP Ot R51 HEADACHE 04/11/2018 APPLE CORDOBA MARINE CARGO SURVEYOR Ot Z79.51 FILM DRYING MACHINE 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) USE 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 STERO 04/11/2018 APPLE CORDOBAP Ot Z87.440 PERSONAL HISTORY OF URINARY (TRACT) INFE 04/11/2018 ADALID, APPLE MARINE CARGO SURVEYOR Ot Z87.448 PERSONAL HISTORY OF OTHER DISEASES OF UR 04/11/2018 ADALID, APPLE MARINE CARGO SURVEYOR Ot Z87.891 PERSONAL HISTORY OF NICOTINE DEPENDENCE 04/11/2018 ADALID, APPLE MARINE CARGO SURVEYOR Ot Z88.2 ALLERGY STATUS TO SULFONAMIDES STATUS 04/11/2018 ADALID, APPLE MARINE CARGO SURVEYOR Ot Z88.6 ALLERGY STATUS TO ANALGESIC AGENT STATUS 04/11/2018 ADALIDAPPLE Hua MARINE CARGO SURVEYOR Ot Z88.8 ALLERGY STATUS TO OTH DRUG/MEDS/BIOL SUB 04/11/2018 ADALID, APPLE MARINE CARGO SURVEYOR Ot Z90.89 ACQUIRED ABSENCE OF OTHER ORGANS 04/11/2018 ADALID, APPLE MARINE CARGO SURVEYOR Ot Z91.041 RADIOGRAPHIC DYE ALLERGY STATUS 04/15/2018 ADALID, APPLE MARINE CARGO SURVEYOR Ot E11.59 TYPE 2 DIABETES MELLITUS WITH OTH CIRCUL 04/15/2018 ADALID, APPLE MARINE CARGO SURVEYOR Ot E78.00 PURE HYPERCHOLESTEROLEMIA, UNSPECIFIED 04/15/2018 ADALID, APPLE MARINE CARGO SURVEYOR Ot I10 ESSENTIAL (PRIMARY) HYPERTENSION 04/15/2018 ADALIDAPPLE Hua MARINE CARGO SURVEYOR Ot I25.10 ATHSCL HEART DISEASE OF [place] CORONARY 04/15/2018 ADALID, APPLE MARINE CARGO SURVEYOR Ot I73.9 PERIPHERAL VASCULAR DISEASE, UNSPECIFIED 04/15/2018 ADALID, APPLE MARINE CARGO SURVEYOR Ot J44.9 CHRONIC OBSTRUCTIVE PULMONARY DISEASE, U 04/15/2018 ADALID, APPLE MARINE CARGO SURVEYOR Ot K21.9 GASTRO-ESOPHAGEAL REFLUX DISEASE WITHOUT 04/15/2018 ADALID, APPLE MARINE CARGO SURVEYOR Ot R51 HEADACHE 04/15/2018 ADALIDAPPLE Hua MARINE CARGO SURVEYOR Ot Z79.51 RETIREMENT (CURRENT) USE OF INHALED STERO 04/15/2018 ADALID, APPLE MARINE CARGO SURVEYOR Ot Z87.440 PERSONAL HISTORY OF URINARY (TRACT) INFE 04/15/2018 ADALID, APPLE MARINE CARGO SURVEYOR Ot Z87.448 PERSONAL HISTORY OF OTHER DISEASES OF UR 04/15/2018 ADALID, APPLE MARINE CARGO SURVEYOR Ot Z87.891 PERSONAL HISTORY OF NICOTINE DEPENDENCE 04/15/2018 ADALID, APPLE MARINE CARGO SURVEYOR Ot Z88.2 ALLERGY STATUS TO SULFONAMIDES STATUS 04/15/2018 ADALID, APLPE MARINE CARGO SURVEYOR Ot Z88.6 ALLERGY STATUS TO ANALGESIC AGENT STATUS 04/15/2018 ADALIDAPPLE Hua MARINE CARGO SURVEYOR Ot Z88.8 ALLERGY STATUS TO OTH DRUG/MEDS/BIOL SUB 04/15/2018 APPLE CORDOBA Ot Z90.89 ACQUIRED ABSENCE OF OTHER ORGANS 04/15/2018 APPLE CORDOBA Ot Z91.041 RADIOGRAPHIC DYE ALLERGY STATUS Procedures Code Description Performed By Performed On 00.40 PROCEDURE ON SINGLE VESSEL 03/16/2011 00.46 INSERTION OF TWO VASCULAR STENTS 03/16/2011 39.50 ANGIOPLASTY OF OTHER NON- CORONARY VESSEL 03/16/2011 39.90 INSEJ [id number] PERIPHERAL NON-CO 03/16/2011 88.42 CONTRAST AORTOGRAM 03/16/2011 88.45 CONTRAST RENAL ARTERIOGR 03/16/2011 60363 STREP A (IN-HOUSE) 04/02/2012 92810 ROUTINE VENIPUNCTURE 04/26/2012 98758 CBC 04/26/2012 41985 RENAL PROFILE 04/27/2012 [id number] GFR CALC (RESULT ONLY) 04/27/2012 38626 TSH 04/27/2012 01839 A1C (RML) 04/27/2012 Nephrolog Gabi William 05/29/2012 49481 ROUTINE VENIPUNCTURE 08/06/2012 1033732 GFR CALC (RESULT ONLY) 08/07/2012 45379 RENAL PROFILE 08/07/2012 23966 CBC 08/07/2012 CARDIOLOG [place] 10/30/2013 05686 CBC 01/14/2014 [id number] GFR CALC (RESULT ONLY) 01/14/2014 07619 BMP 01/14/2014 15149 LIPID PANEL 01/14/2014 93618 LIVER PANEL (LFT) 01/14/2014 57906 TSH 01/14/2014 08465 A1C (RML) 01/14/2014 08069 ROUTINE VENIPUNCTURE 01/15/2014 96938 THERAPUTIC INJ SQ/IM 01/24/2014 J0696 ROCEPHIN INJ 1 g 01/24/2014 48810 ROUTINE VENIPUNCTURE 07/31/2014 30175 STREP A (IN-HOUSE) 07/31/2014 37745 MONO TEST (IN-HOUSE) 07/31/2014 78740 BARIUM SWALLOW XRAY MODIFIED 07/31/2014 46742 CMP 07/31/2014 16286 CBC 07/31/2014 Results Test Result Range Complete [...] 02/04/16 11:10 Myoglobin, serum 52.1 ng/mL 10.0-92.0 Complete blood count (CBC) with automated white [...] culture - 02/07/17 20:35 Bacterial urine culture [id number] NRG COLONY COUNT >100,000/ML NRG FTX;REPORTABLE SENSITIVITY [...] culture - 03/06/17 21:55 Bacterial urine culture [id number] NRG COLONY COUNT >100,000/ML NR FTX;REPORTABLE SENSITIVITY REPORTED AT 1502, 11 NR URINE CULTURE RESULTS PLUS NR Bacterial [...] 02/08/18 09:34 Myoglobin, serum 83.5 ng/mL 10.0-92.0 CMP - 07/11/18 12:12 GLUCOSE 146 mg/dL 65-99 UREA NITROGEN (BUN) 15 mg/dL 7-25 CREATININE 1.17 mg/dL 0.50-1.05 eGFR NON-AFR. LITHUANIAN 52 mL/min/1.73m2 > OR=60 eGFR 61 mL/min/1.73m2 > OR=60 BUN/CREATININE RATIO 13 (calc) 6-22 SODIUM 139 mmol/L 135-146 POTASSIUM 4.6 mmol/L 3.5-5.3 CHLORIDE 102 mmol/L 98-110 CARBON DIOXIDE 27 mmol/L 20-32 CALCIUM 9.6 mg/dL 8.6-10.4 PROTEIN, TOTAL 6.9 g/dL 6.1-8.1 ALBUMIN 4.5 g/dL 3.6-5.1 GLOBULIN 2.4 g/dL (calc) 1.9-3.7 ALBUMIN/GLOBULIN RATIO 1.9 (calc) 1.0-2.5 BILIRUBIN, TOTAL 0.5 mg/dL 0.2-1.2 ALKALINE PHOSPHATASE 72 U/L 33-130 AST 18 U/L 10-35 ALT 18 U/L 6-29 Complete blood count (CBC) with automated white blood cell (WBC) differential - 08/18/18 19:11 Blood leukocytes automated count (number/volume) 6.3 10*3/uL 4.3-11.0 Blood erythrocytes automated count (number/volume) 3.71 10*6/uL 4.35-5.85 Venous blood hemoglobin measurement (mass/volume) 11.6 g/dL 11.5-16.0 Blood hematocrit (volume fraction) 35 % 35-52 Automated erythrocyte mean corpuscular volume 95 [foz_us] 80-99 Automated erythrocyte mean corpuscular hemoglobin (mass per erythrocyte) 31 pg 25-34 Automated erythrocyte mean corpuscular hemoglobin concentration measurement ( mass/volume) 33 g/dL 32-36 Automated erythrocyte distribution width ratio 14.4 % 10.0-14.5 Automated blood platelet count (count/volume) 191 10*3/uL 130-400 Automated blood platelet mean volume measurement 10.6 [foz_us] 7.4-10.4 Automated blood neutrophils/100 leukocytes 61 % 42-75 Automated blood lymphocytes/100 leukocytes 29 % 12-44 Blood monocytes/100 leukocytes 8 % 0-12 Automated blood eosinophils/100 leukocytes 2 % 0-10 Automated blood basophils/100 leukocytes 0 % 0-10 Blood neutrophils automated count (number/volume) 3.9 10*3 1.8-7.8 Blood lymphocytes automated count (number/volume) 1.8 10*3 1.0-4.0 Blood monocytes automated count (number/volume) 0.5 10*3 0.0-1.0 Automated eosinophil count 0.2 10*3/uL 0.0-0.3 Automated blood basophil count (count/volume) 0.0 10*3/uL 0.0-0.1 PT panel in platelet poor plasma by coagulation assay - 04/14/19 19:11 Prothrombin time (PT) in platelet poor plasma by coagulation assay 12.5 s 12.2-14.7 INR in platelet poor plasma or blood by coagulation assay 0.9 0.8-1.4 Activated partial thromboplastin time (aPTT) in platelet poor plasma bycoagulation assay - 08/18/18 19:11 Activated partial thromboplastin time (aPTT) in platelet poor plasma bycoagulation assay 31 s 24-35 Comprehensive metabolic panel - 08/18/18 19:11 Serum or plasma sodium measurement (moles/volume) 138 mmol/L 135-145 Serum or plasma potassium measurement (moles/volume) 3.9 mmol/L 3.6-5.0 Serum or plasma chloride measurement (moles/volume) 104 mmol/L 98-107 Carbon dioxide 21 mmol/L 21-32 Serum or plasma anion gap determination (moles/volume) 13 mmol/L 5-14 Serum or plasma urea nitrogen measurement (mass/volume) 15 mg/dL 7-18 Serum or plasma creatinine measurement (mass/volume) 1.28 mg/dL 0.60-1.30 Serum or plasma urea nitrogen/creatinine mass ratio 12 NRG Serum or plasma creatinine measurement with calculation of estimated glomerular filtration rate 43 NRG Serum or plasma glucose measurement (mass/volume) 160 mg/dL 70-105 Serum or plasma calcium measurement (mass/volume) 9.9 mg/dL 8.5-10.1 Serum or plasma total bilirubin measurement (mass/volume) 0.4 mg/dL 0.1-1.0 Serum or plasma alkaline phosphatase measurement (enzymatic activity/volume) 81 U/L 40-136 Serum or plasma aspartate aminotransferase measurement (enzymatic activity/ volume) 20 U/L 5-34 Serum or plasma alanine aminotransferase measurement (enzymatic activity/volume ) 28 U/L 0-55 Serum or plasma protein measurement (mass/volume) 7.7 g/dL 6.4-8.2 Serum or plasma albumin measurement (mass/volume) 4.7 g/dL 3.2-4.5 Magnesium - 08/18/18 19:11 Magnesium 2.1 mg/dL 1.8-2.4 Serum or plasma troponin i.cardiac measurement (mass/volume) - 08/18/18 19:11 Serum or plasma troponin i.cardiac measurement (mass/volume) < ng/ mL <0.028 Myoglobin, serum - 08/18/18 19:11 Myoglobin, serum 71.0 ng/mL 10.0-92.0 Serum or plasma lithium measurement (moles/volume) - 08/18/18 19:11 BNP level 47.6 pg/mL <100.0 Encounters ACCT No. Visit Date/Time Discharge Status Pt. Type Provider Facility Loc./Unit Complaint [id number] 08/29/2014 13:52:00 08/29/2014 23:59:59 CLS Outpatient PHUC AMIN APRN [id number] 07/31/2014 10:41:00 07/31/2014 23:59:59 CLS Outpatient WHIT LOVELL DO [id number] 06/15/2014 08:48:00 06/15/2014 23:59:59 CLS Outpatient OSEAS FELIX MD [id number] 05/22/2014 16:17:00 05/22/2014 23:59:59 CLS Outpatient OSEAS FELIX MD [id number] 01/24/2014 12:23:00 01/24/2014 23:59:59 CLS Outpatient MORE LOPEZ APRN [id number] 01/14/2014 08:55:00 01/14/2014 23:59:59 CLS Outpatient WHIT LOVELL DO [id number] 10/30/2013 11:03:00 10/30/2013 23:59:59 CLS Outpatient PAVAN YORK APRN [id number] 10/08/2013 15:16:00 10/08/2013 23:59:59 CLS Outpatient PHUC AMIN APRN [id number] 06/30/2013 16:43:00 06/30/2013 23:59:59 CLS Outpatient WHIT LOVELL DO [id number] 06/11/2013 15:18:00 06/11/2013 23:59:59 CLS Outpatient OSEAS FELIX MD [id number] 12/05/2012 13:32:00 12/05/2012 23:59:59 CLS Outpatient REBEL SOARES MD [id number] 08/07/2012 10:44:00 08/07/2012 23:59:59 CLS Outpatient VERA SHORE PA-C [id number] 08/06/2012 16:50:00 08/06/2012 23:59:59 CLS Outpatient [id number] 04/26/2012 15:04:00 04/26/2012 23:59:59 CLS Outpatient WHIT LOVELL DO [id number] 04/02/2012 11:58:00 04/02/2012 23:59:59 CLS Outpatient [id number] 04/02/2012 11:58:00 04/02/2012 23:59:59 CLS Outpatient WHIT LOVELL DO [id number] 08/30/2012 14:13:00 Document Registration [id number] 08/26/2012 00:00:00 Document Registration [id number] 04/11/2018 20:55:00 04/11/2018 22:24:00 DIS Emergency ADALIDAPPLE [facility] ER HEADACHE,VISION BLURRY [id number] 02/08/2018 04:20:00 02/08/2018 15:56:00 DIS Outpatient BOAZ REYNOSO DOARERyan Hua [facility] CATH CHEST PAIN, HYPERTIONSIVE URGENCY [id number] 09/10/2017 16:54:00 09/10/2017 23:59:59 CLS Preadmit MAKENZIE CHAPMAN MD [facility] RAD I71.4 AAA [id number] 09/05/2017 08:00:00 09/05/2017 23:59:59 CLS Preadmit MAKENZIE CHAPMAN MD [facility] CARD I71.4 AAA [id number] 08/28/2017 09:00:00 08/28/2017 23:59:59 CLS Preadmit MAKENZIE CHAPMAN MD [facility] RAD AAA [id number] 08/28/2017 07:51:00 08/28/2017 23:59:59 CLS Outpatient MAKENZIE CHAPMAN MD [facility] RAD I71.4 AAA [id number] 08/23/2017 11:21:00 08/23/2017 23:59:59 CLS Preadmit MAKENZIE CHAPMAN MD [facility] CARD I71.4 AAA [id number] 05/04/2017 09:47:00 05/04/2017 23:59:59 CLS Preadmit RIDDHI MURRAY [facility] RAD M54.12 CERVICAL RADICULOPATHY [id number] 04/25/2017 07:59:00 04/25/2017 11:15:00 DIS Emergency RADHA CORREIA, DIMAS D [facility] ER DIARRHEA [id number] 03/06/2017 20:33:00 03/06/2017 22:58:00 DIS Emergency STANLEY ALTAMIRANO DO [facility] ER LOWER STOMACH/BACK PAIN [id number] 02/07/2017 17:57:00 02/07/2017 23:05:00 DIS Emergency SANDRA LAWSON MD [facility] ER CHEST/BACK PAIN [id number] 07/23/2016 11:20:00 07/23/2016 12:15:00 DIS Emergency МАРИЯ MIRZA CABLE ASSEMBLER [facility] ER L ARM LUMP/REDNESS [id number] 05/26/2016 15:47:00 05/26/2016 23:59:59 CLS Outpatient NAVEEN FERRARO CABLE [employer]SEM[employer]ER [facility] RAD ACUTE RIGHT FLANK PAIN [id number] 04/24/2016 08:26:00 04/24/2016 23:59:59 CLS Outpatient MADL, PHUC L [employer]INE [employer] SURVEYOR [facility] RAD AAA,RUQ PAIN [id number] 02/16/2016 16:41:00 02/16/2016 23:59:59 CLS Outpatient PAVAN YORK CABLE ASSEMBLER [facility] QUICK [id number] 02/04/2016 10:50:00 02/04/2016 12:35:00 DIS Emergency МАРИЯ MIRZA CABLE 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 [facility] ER CHEST PAIN RADIATING THRU BACK [id number] 12/03/2015 11:33:00 12/03/2015 12:58:00 DIS Emergency BRITNEY NICHOLS MD [facility] ER BACK PAIN [id number] 11/22/2015 13:34:00 11/22/2015 23:59:59 CLS Outpatient MADL, PHUC L [employer] SUR[employer] [facility] RAD ABNORMAL XRAY [id number] 11/17/2015 09:42:00 11/17/2015 23:59:59 CLS Outpatient PHUC AMIN [employer] SUR[employer] [facility] RAD PAIN OF RIGHT LOWER EXTREMITY [id number] 08/27/2015 16:37:00 08/27/2015 19:20:00 DIS Emergency МАРИЯ MIRZA APRN [facility] ER VOMITING,DIARRHEA [id number] 12/04/2014 21:30:00 12/04/2014 23:55:00 DIS Emergency VERA DYER MD [facility] ER L HAND PAIN/INJ [id number] 08/28/2014 16:35:00 08/28/2014 21:03:00 DIS Emergency STANLEY ALTAMIRANO DO [facility] ER ABD PAIN [id number] 08/07/2014 10:31:00 08/07/2014 23:59:59 CLS Outpatient VERA SCOTT [facility] RAD SOLID FOOD DYPHAGIA NECK PAIN [id number] 05/24/2014 22:11:00 05/26/2014 13:38:00 DIS Inpatient MARGAUX ROSAS MD [facility] 4TH HYPONATREMIA;URINARY TRACT INFECTION;DIARRHEA [id number] 03/26/2014 12:14:00 03/26/2014 14:25:00 DIS Emergency LETHA COPPOLA [facility] ER LEFT KNEE PAIN [id number] 02/19/2014 13:18:00 02/19/2014 16:43:00 DIS Emergency BRITNEY NICHOLS MD [facility] ER CHEST PAIN [id number] 01/26/2014 16:19:00 01/26/2014 17:35:00 DIS Emergency МАРИЯ MIRZA APRN [facility] ER WOUND CARE [id number] 01/25/2014 20:34:00 01/25/2014 22:28:00 DIS Emergency LETHA COPPOLA [facility] ER CAT BITE [id number] 07/06/2013 16:17:00 07/06/2013 19:01:00 DIS Emergency BRITNEY NICHOLS MD [facility] ER ABD PAIN [id number] 11/10/2012 22:22:00 11/11/2012 14:30:00 DIS Inpatient MARGAUX ROSAS MD [facility] 4TH ACUTE RENAL FAILURE, ACUTE ABD PAIN, N/V/D [id number] 08/18/2018 20:05:00 ACT Inpatient BRAD OLIVA DO [facility] ICU CHEST PAIN, R/O ACS [id number] 05/25/2014 11:51:00 Document Registration [id number] 01/22/2012 19:53:00 Document Registration [id number] 09/19/2011 18:45:00 Document Registration [id number] 09/07/2011 22:14:00 Document Registration [id number] 07/14/2011 08:59:00 Document Registration [id number] 03/15/2011 18:46:00 Document Registration [id number] 03/08/2011 14:42:00 Document Registration [id number] 11/22/2010 05:25:00 Document Registration [id number] 08/29/2010 14:17:00 Document Registration [id number] 05/15/2010 09:10:00 Document Registration [id number] 01/17/2010 15:47:00 Document Registration [id number] 07/10/2018 13:00:00 07/10/2018 23:59:59 [facility] [id number] 07/11/2018 11:40:00 Document Registration [id number] 09/14/2017 15:00:00 Document Registration
[2018-08-18] MEDS ORDERED: morphine INJ 4 MG/ML 1 ML (VIAL/SYRINGE) IV PRN (21:30)
[2018-08-18] MEDS ORDERED: NITROGLYCERIN 0.4 MG SL TABS BTL 25'S SL PRN (21:30)
[2018-08-18] MEDS ORDERED: ANTACID SUSP 30 ML UDC (MYLANTA) PO PRN (21:30)
[2018-08-18] MEDS ORDERED: cloNIDine 0.1 MG (CATAPRES) TAB PO PRN (21:30)
[2018-08-18] MEDS ORDERED: ONDANSETRON 4 MG/2 ML (SDV) Z0FRAN IV PRN (21:30)
--- NOTE | 2018-08-18 21:30 | NUR ---
PAMELLA TORRES] admitted to room CU9-1, with an admitting diagnosis of CP, R/O ACS , on 08/18/18 from ED via , accompanied by .PAMELLA TORRES introduced to surroundings, call light, bed controls, phone, TV, temperature control, lights, meal times, smoking policy, visitor policy, side rail policy, bathrooms and showers. Patient Rights given to patient in the handbook.PAMELLA TORRES verbalizes understanding that [facility] is not responsible for the loss or damage to any personal effects or valuables that are kept in the patients posession during their hospitalization. The following Patient Care Plans were discussed with the : Discharge Planning, ,, and . PAMELLA TORRES verbalizes understanding of Interdisciplinary Patient Education. Patient and/or family were informed about the Rapid Response Team and its purpose.
--- NOTE | 2018-08-18 22:00 | NUR ---
DISCUSSED ALLERGY LIST WITH PT. PT INFORMED THIS RN THAT SHE IS NOT ALLERGIC TO ACETAMINOPHEN-SHE TAKES TYLENOL ALL THE TIME. PT STATED "I JUST CAN'T TAKE TO MUCH BECAUSE IN THE PAST I HAVE HAD PROBLEMS WITH MY LIVER." PT REQUESTED THAT THIS RN REMOVE ACETAMINOPHEN FROM ALLERGY LIST.
[2018-08-19] VITALS (8 sets, daily range): BP systolic 134–157; BP diastolic 53–74
--- NOTE | 2018-08-19 00:57 | Diagnostic Imaging Report ---
EXAMINATION: Ultrasound right upper extremity arterial INDICATION: Right shoulder pain. COMPARISON: None available. TECHNIQUE: Doppler, grayscale and color-flow imaging of the right upper extremity arterial system was performed. Subclavian artery proximal: 174 Subclavian artery distal: 100 Axillary artery: 151 Brachial proximal: 155 Brachial mid: 134 Brachial distal: 153 Radial proximal: 97 Radial distal: 116 Ulnar proximal: 100 Ulnar distal: 107 Normal waveforms are demonstrated throughout right upper extremity arterial system. There are no areas of focal narrowing or significant plaque formation identified. Flow velocities are within the normal limits. IMPRESSION: Right upper extremity arterial Doppler exam is within normal limits. Dictated by: Dictated on workstation # [id number]
[2018-08-19 01:09] LABS: BASOPHILS % (AUTO) 0 % (0-10); EOSINOPHILS # (AUTO) 0.1 10^3/uL (0.0-0.3); EOSINOPHILS % (AUTO) 3 % (0-10); HEMATOCRIT 32 % (35-52); HEMOGLOBIN 10.1 G/DL (11.5-16.0); LYMPHOCYTES # (AUTO) 1.5 X 10^3 (1.0-4.0); LYMPHOCYTES % (AUTO) 28 % (12-44); MEAN CORPUSCULAR HEMOGLOBIN 31 PG (25-34); MEAN CORPUSCULAR HGB CONC 32 G/DL (32-36); MEAN CORPUSCULAR VOLUME 96 FL (80-99); MEAN PLATELET VOLUME 10.7 FL (7.4-10.4); MONOCYTES # (AUTO) 0.5 X 10^3 (0.0-1.0); MONOCYTES % (AUTO) 9 % (0-12); NEUTROPHILS # (AUTO) 3.1 X 10^3 (1.8-7.8); NEUTROPHILS % (AUTO) 60 % (42-75); PLATELET COUNT 156 10^3/uL (130-400); RED CELL DISTRIBUTION WIDTH 14.2 % (10.0-14.5); WHITE BLOOD COUNT 5.2 10^3/uL (4.3-11.0)
[2018-08-19 01:28] LABS: CALCIUM 9.1 MG/DL (8.5-10.1); CREATININE SERUM 1.11 MG/DL (0.60-1.30); POTASSIUM 4.1 MMOL/L (3.6-5.0)
[2018-08-19] MEDS: inSUlin ASPART (NovoLOG) 1 UNIT/0.01 ML (CHARGE PER UNIT) SC SCH ×4 (06:07→21:29)
[2018-08-19] MEDS: PANTOPRAZOLE 40 MG (PROTONIX) TAB PO SCH (08:11)
[2018-08-19] MEDS: lisINopril 20 MG (PRINIVIL) TABLET PO SCH (08:11)
[2018-08-19] MEDS: HYDROCHLOROTHIAZIDE 12.5 MG (HCTZ) CAP PO SCH (08:11)
[2018-08-19] MEDS: ASPIRIN E.C. 81 MG (ECOTRIN) TAB PO SCH (08:11)
[2018-08-19] MEDS ORDERED: AMLO10TA4 PO (08:14)
--- NOTE | 2018-08-19 08:53 | Consultation-Cardiology ---
HPI-Cardiology Cardiology Consultation Date of Consultation 08/19/18 Date of Admission Time Seen by Provider: 08:48 Indication: chest pain HPI 57 years old lady with history of hypertension, hyperlipidemia and obesity. Had a normal cardiac catheterization 2007 and 2009. Was in her usual state of health until yesterday when she started having chest pain described it as dull achiness in the upper chest radiating to both arms. Denied any palpitation, denied any syncope, has been having worsening pedal edema. Came into the emergency room and reported improvement after receiving sublingual nitroglycerin , currently she is chest pain-free. No new complaint Home Medications & Allergies Allergies: Coded Allergies: NSAIDS (Non-Steroidal Anti-Inflamma (Verified Allergy, Unknown, 11/11/12) Sulfa (Sulfonamide Antibiotics) (Verified Allergy, Unknown, 11/11/12) niacin (Verified Allergy, Unknown, 09/19/11) Uncoded Allergies: IV CONTRAST (Allergy, Unknown, 11/11/12) Home Medication List Reviewed: Yes HZG-Nhzllp-Pemovd Hx Patient Social History Employed/Student: employed Alcohol Use: Occasionally Uses Recreational Drug Use: No Smoking Status: Former Smoker Former smoker/When Quit: May 07, 2011 Type Used: Cigarettes Recent Foreign Travel: No Recent Infectious Disease Expo: No Recent Hopitalizations: No Immunizations Up To Date Tetanus Booster (TDap): Less than 5yrs Date of Pneumonia Vaccine: Feb 04, 2018 Date of Influenza Vaccine: Feb 04, 2017 Past Medical History passed medical history as described below Family Medical History Significant Family History: No Pertinent Family Hx Family Medical Hx noncontributory to her current condition Family History: Patient reports no known family medical history. Review of Systems Constitutional: no symptoms reported, see HPI EENTM: see HPI, no symptoms reported Respiratory: see HPI; No cough; dyspnea on exertion; No hemoptysis, No orthopnea, No phlegm, No short of breath, No stridor, No wheezing, No other Cardiovascular: see HPI, chest pain, edema; No Hx of Intervention, No palpitations, No syncope, No vascular heart diseas, No other Gastrointestinal: no symptoms reported, see HPI Genitourinary: no symptoms reported, see HPI Musculoskeletal: see HPI, back pain, joint pain Skin: no symptoms reported, see HPI Psychiatric/Neurological: No Symptoms Reported, See HPI Reviewed Test Results Reviewed Test Results Lab Laboratory Tests Test 08/18/18 19:11 08/19/18 01:00 08/19/18 05:00 08/19/18 07:23 Range/Units White Blood Count 6.3 5.2 4.3-11.0 10^3/uL Red Blood Count 3.71 L 3.29 L 4.35-5.85 10^6/uL Hemoglobin 11.6 10.1 L 11.5-16.0 G/DL Hematocrit 35 32 L 35-52 % Mean Corpuscular Volume 95 96 80-99 FL Mean Corpuscular Hemoglobin 31 31 25-34 PG Mean Corpuscular Hemoglobin Concent 33 32 32-36 G/DL Red Cell Distribution Width 14.4 14.2 10.0-14.5 % Platelet Count 191 156 130-400 10^3/uL Mean Platelet Volume 10.6 H 10.7 H 7.4-10.4 FL Neutrophils (%) (Auto) 61 60 42-75 % Lymphocytes (%) (Auto) 29 28 12-44 % Monocytes (%) (Auto) 8 9 0-12 % Eosinophils (%) (Auto) 2 3 0-10 % Basophils (%) (Auto) 0 0 0-10 % Neutrophils # (Auto) 3.9 3.1 1.8-7.8 X 10^3 Lymphocytes # (Auto) 1.8 1.5 1.0-4.0 X 10^3 Monocytes # (Auto) 0.5 0.5 0.0-1.0 X 10^3 Eosinophils # (Auto) 0.2 0.1 0.0-0.3 10^3/uL Basophils # (Auto) 0.0 0.0 0.0-0.1 10^3/uL Prothrombin Time 12.5 12.2-14.7 SEC INR Comment 0.9 0.8-1.4 Activated Partial Thromboplast Time 31 24-35 SEC Sodium Level 138 138 135-145 MMOL/L Potassium Level 3.9 4.1 3.6-5.0 MMOL/L Chloride Level 104 109 H 98-107 MMOL/L Carbon Dioxide Level 21 20 L 21-32 MMOL/L Anion Gap 13 9 5-14 MMOL/L Blood Urea Nitrogen 15 15 7-18 MG/DL Creatinine 1.28 1.11 0.60-1.30 MG/DL Estimat Glomerular Filtration Rate 43 51 BUN/Creatinine Ratio 12 14 Glucose Level 160 H 191 H 70-105 MG/DL Calcium Level 9.9 9.1 8.5-10.1 MG/DL Corrected Calcium 8.5-10.1 MG/DL Magnesium Level 2.1 1.8-2.4 MG/DL Total Bilirubin 0.4 0.1-1.0 MG/DL Aspartate Amino Transf (AST/SGOT) 20 5-34 U/L Alanine Aminotransferase (ALT/SGPT) 28 0-55 U/L Alkaline Phosphatase 81 40-136 U/L Myoglobin 71.0 10.0-92.0 NG/ML Troponin I < 0.028 < 0.028 < 0.028 <0.028 NG/ML B-Type Natriuretic Peptide 47.6 <100.0 PG/ML Total Protein 7.7 6.4-8.2 GM/DL Albumin 4.7 H 3.2-4.5 GM/DL Triglycerides Level 223 H <150 MG/DL Cholesterol Level 158 < 200 MG/DL LDL Cholesterol Direct 103 1-129 MG/DL VLDL Cholesterol 45 H 5-40 MG/DL HDL Cholesterol 30 L 40-60 MG/DL Glucometer 125 H 70-110 MG/DL Physical Exam Vital Signs Vital Signs - First Documented 08/19/18 00:46 O2 Flow Rate 2.00 Capillary Refill : Less Than 3 Seconds Height, Weight, BMI Height: 5'5.00" Weight: 287lbs. 0.0oz. 130.777670cz; 47.8 BMI Method:Stated General Appearance: No Apparent Distress, WD/WN Eyes: Bilateral Eye Normal Inspection, Bilateral Eye PERRL, Bilateral Eye EOMI HEENT: PERRL/EOMI, TMs Normal, Normal ENT Inspection, Pharynx Normal Neck: Full Range of Motion, Normal Inspection, Non Tender, Supple, Carotid Bruit Respiratory: Chest Non Tender, Lungs Clear, Normal Breath Sounds, No Accessory Muscle Use, No Respiratory Distress Cardiovascular: Regular Rate, Rhythm, No Edema, No Gallop, No JVD, No Murmur, Normal Peripheral Pulses Gastrointestinal: Normal Bowel Sounds, No Organomegaly, No Pulsatile Mass, Non Tender, Soft Back: Normal Inspection, No CVA Tenderness, No Vertebral Tenderness Extremity: Normal Capillary Refill, Normal Inspection, Normal Range of Motion, Non Tender, No Calf Tenderness, Pedal Edema (mild pedal edema) Neurologic/Psychiatric: Alert, Oriented x3, No Motor/Sensory Deficits, Normal Mood/Affect Skin: Normal Color, Warm/Dry Lymphatic: No Adenopathy A/P-Cardiology Admission Diagnosis Chest pain Coronary artery disease Peripheral arterial disease Hypertension Assessment/Plan Chest pain, nonspecific etiology, atypical in presentation, multiple risk factors for coronary artery disease, planning to evaluate stress test, cardiac enzymes and EKG did not show any acute abnormality. Coronary artery disease, mild to moderate disease. Had a cardiac catheterization done in 2007 and 2009 which showed nonobstructive disease. No recent workup, planning to evaluate stress test. Peripheral arterial disease, history of abdominal aortic aneurysm with stent graft and bilateral renal artery stenting. Procedure done by Dr. 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 I will evaluate arterial Doppler Hypertension, poorly controlled, started on lisinopril, amlodipine and hydrochlorothiazide, I will stop clonidine and continue to monitor blood pressure Hyperlipidemia, maintained on Lipitor 80 mg daily and fish oil, restart medication monitor Gastroesophageal reflux disease COPD Obesity, BMI 47, we discussed weight loss and exercise Clinical Quality Measures AMI/AHF: ASA po Prior to arrival: No DVT/VTE Risk/Contraindication: Risk Factor Score Per Nursin RFS Level Per Nursing on Admit: 3=High MAKENZIE CHAPMAN MD Aug 19, 2018 08:53
[2018-08-19] MEDS ORDERED: BETA15CR37 TOP (08:56)
[2018-08-19] MEDS ORDERED: OMEP40CA36 PO (08:56)
[2018-08-19] MEDS ORDERED: MULT-351 PO (08:56)
[2018-08-19] MEDS ORDERED: AMLO10TA7 PO (08:56)
[2018-08-19] MEDS ORDERED: REGADENOSON 0.4 MG/5 ML SYR (LEXISCAN) IV ONE (09:00)
[2018-08-19] MEDS ORDERED: amLODIPine 10 MG (NORVASC) TAB PO SCH ×2 (09:00→21:00)
--- NOTE | 2018-08-19 09:00 | NUR ---
SPOKE WITH THE PATIENT ABOUT HER MEDICATIONS. SHE VERIFIED WHAT SHE IS TAKING, WE WENT OVER THE EXT MED HX AND SHE LISTED HER OTC MEDS. IN ADDITION TO WHAT IS SHOWN ON THE EXT MED HX [facility] FILLED OMEPRAZOLE 40MG DAILY 07-11-18
[2018-08-19] MEDS: ACETAMINOPHEN 500 MG TAB (TYLENOL) PO PRN ×2 (11:18→21:30)
--- NOTE | 2018-08-19 15:39 | History & Physicial (CHS) ---
HPI History of Present Illness: 57 yo F with h/o multiple stents placed in renal arteries and aorta that presented with acute chest pain. States that it started yesterday and resolved when given the nitro. She has not had any further chest pain since arrival to hospital. Denies any previous stents in heart. Denies any shortness of breath or radiation with chest pain. No other associated symptoms. Source: patient Exam Limitations: no limitations Date seen by provider: Aug 19, 2018 Time Seen by Provider: 09:00 Attending Physician Madiha Valerio DO PCP Emma Moreno DO Consult Date of Admission Aug 18, 2018 at 20:05 Home Medications Home Medications Reviewed patient Home Medication Reconciliation performed by pharmacy medication reconciliations oxygen equipment technician and/or nursing. Patients Allergies have been reviewed. Allergies Coded Allergies: NSAIDS (Non-Steroidal Anti-Inflamma (Verified Allergy, Unknown, 11/11/12) Sulfa (Sulfonamide Antibiotics) (Verified Allergy, Unknown, 11/11/12) niacin (Verified Allergy, Unknown, 09/19/11) Uncoded Allergies: IV CONTRAST (Allergy, Unknown, 11/11/12) SIC-[id number]-[id number] Hx Patient Social History Employed/Student: employed Alcohol Use: Occasionally Uses Recreational Drug Use: No Smoking Status: Former Smoker Former smoker/When Quit: May 07, 2011 Type Used: Cigarettes Recent Foreign Travel: No Contact w/other who traveled: No Recent Hopitalizations: No Recent Infectious Disease Expo: No Immunizations Up To Date Tetanus Booster (TDap): Less than 5yrs Date of Pneumonia Vaccine: Feb 04, 2018 Date of Influenza Vaccine: Feb 04, 2017 Past Medical History Medical Hx: 1. COPD 2. Abdominal anuerysm s/p repair and stent graft 3. Hypertension 4. Neuropathy 5. Urinary incontinence 6. Acid reflux 7. Stage III kidney disease 8. Renal artery stenosis s/p bilateral renal artery stenting 9. Atherosclerotic occlusive disease 10. Hyperlipidemia 11. Chronic back pain 12. Blindness in left eye secondary to glaucoma 13. History of tobaccoism 14. Prediabetes 15. Peripheral Vascular Disease 16. Non-alcoholic hepatic steatosis 17. Right Upper Lung Nodule 18. Osteoarthritis, Fibromyalgia 19. Medical Non-compliance Surg Hx: 1. Left renal artery stent 2007 and 2010, Right renal artery stent 2010 2. Abdominal aortic stent graft 2007 3. Cardiac cath x 3- non-occlusive disease 4. Left TM reconstruction 5. Vascular stenting to stomach and bilateral legs 6. T&A Family Medical History Significant Family History: No Pertinent Family Hx Family History: Patient reports no known family medical history. Review of Systems ([facility]) Constitutional: no symptoms reported; No chills, No fever, No malaise, No weakness EENTM: no symptoms reported Respiratory: no symptoms reported; No cough, No dyspnea on exertion, No orthopnea, No short of breath Cardiovascular: chest pain; No edema, No palpitations Gastrointestinal: no symptoms reported; No abdominal pain, No constipation, No diarrhea, No loss of appetite, No nausea, No vomiting Genitourinary: no symptoms reported; No dysuria, No frequency, No hematuria : No Musculoskeletal: no symptoms reported; No back pain, No joint pain, No muscle pain Skin: no symptoms reported; No rash Psychiatric/Neurological: No Symptoms Reported; Denies Headache, Denies Numbness, Denies Weakness Reviewed Test Results Reviewed Test Results Lab Laboratory Tests Test 08/18/18 19:11 08/19/18 01:00 08/19/18 05:00 08/19/18 07:23 Range/Units White Blood Count 6.3 5.2 4.3-11.0 10^3/uL Red Blood Count 3.71 L 3.29 L 4.35-5.85 10^6/uL Hemoglobin 11.6 10.1 L 11.5-16.0 G/DL Hematocrit 35 32 L 35-52 % Mean Corpuscular Volume 95 96 80-99 FL Mean Corpuscular Hemoglobin 31 31 25-34 PG Mean Corpuscular Hemoglobin Concent 33 32 32-36 G/DL Red Cell Distribution Width 14.4 14.2 10.0-14.5 % Platelet Count 191 156 130-400 10^3/uL Mean Platelet Volume 10.6 H 10.7 H 7.4-10.4 FL Neutrophils (%) (Auto) 61 60 42-75 % Lymphocytes (%) (Auto) 29 28 12-44 % Monocytes (%) (Auto) 8 9 0-12 % Eosinophils (%) (Auto) 2 3 0-10 % Basophils (%) (Auto) 0 0 0-10 % Neutrophils # (Auto) 3.9 3.1 1.8-7.8 X 10^3 Lymphocytes # (Auto) 1.8 1.5 1.0-4.0 X 10^3 Monocytes # (Auto) 0.5 0.5 0.0-1.0 X 10^3 Eosinophils # (Auto) 0.2 0.1 0.0-0.3 10^3/uL Basophils # (Auto) 0.0 0.0 0.0-0.1 10^3/uL Prothrombin Time 12.5 12.2-14.7 SEC INR Comment 0.9 0.8-1.4 Activated Partial Thromboplast Time 31 24-35 SEC Sodium Level 138 138 135-145 MMOL/L Potassium Level 3.9 4.1 3.6-5.0 MMOL/L Chloride Level 104 109 H 98-107 MMOL/L Carbon Dioxide Level 21 20 L 21-32 MMOL/L Anion Gap 13 9 5-14 MMOL/L Blood Urea Nitrogen 15 15 7-18 MG/DL Creatinine 1.28 1.11 0.60-1.30 MG/DL Estimat Glomerular Filtration Rate 43 51 BUN/Creatinine Ratio 12 14 Glucose Level 160 H 191 H 70-105 MG/DL Calcium Level 9.9 9.1 8.5-10.1 MG/DL Corrected Calcium 8.5-10.1 MG/DL Magnesium Level 2.1 1.8-2.4 MG/DL Total Bilirubin 0.4 0.1-1.0 MG/DL Aspartate Amino Transf (AST/SGOT) 20 5-34 U/L Alanine Aminotransferase (ALT/SGPT) 28 0-55 U/L Alkaline Phosphatase 81 40-136 U/L Myoglobin 71.0 10.0-92.0 NG/ML Troponin I < 0.028 < 0.028 < 0.028 <0.028 NG/ML B-Type Natriuretic Peptide 47.6 <100.0 PG/ML Total Protein 7.7 6.4-8.2 GM/DL Albumin 4.7 H 3.2-4.5 GM/DL Triglycerides Level 223 H <150 MG/DL Cholesterol Level 158 < 200 MG/DL LDL Cholesterol Direct 103 1-129 MG/DL VLDL Cholesterol 45 H 5-40 MG/DL HDL Cholesterol 30 L 40-60 MG/DL Glucometer 125 H 70-110 MG/DL Test 08/19/18 11:11 Range/Units Glucometer 134 H 70-110 MG/DL Physical Exam-(CHC) Physical Exam Vital Signs VS - Last 72 Hours, by Label 08/18/18 08/18/18 08/18/18 08/18/18 18:58 18:58 21:05 21:17 Temp 97.3 97.3 Pulse 93 86 82 Resp 16 16 B/P (MAP) 235/96 (142) 172/75 (107) Pulse Ox 98 97 O2 Delivery Room Air Room Air Room Air 08/18/18 08/18/18 08/18/18 08/18/18 21:29 21:30 21:30 21:34 Temp 97.8 97.8 Pulse 80 82 80 Resp 18 18 B/P (MAP) 170/80 (110) 172/66 (101) 170/80 Pulse Ox 97 97 97 97 O2 Delivery Room Air Room Air Room Air Room Air 08/18/18 08/18/18 08/18/18 08/18/18 22:15 22:30 22:45 23:00 Pulse 82 83 86 83 B/P (MAP) 153/66 (95) 151/63 (92) 154/72 (99) 155/69 (97) Pulse Ox 97 95 95 93 O2 Delivery Room Air Room Air Room Air Room Air 08/18/18 08/18/18 08/18/18 08/19/18 23:15 23:30 23:34 00:00 Temp 97.9 Pulse 83 81 B/P (MAP) 169/77 (107) 152/66 (94) Pulse Ox 93 93 90 O2 Delivery Room Air Room Air Room Air 08/19/18 08/19/18 08/19/18 08/19/18 00:00 00:46 01:00 01:00 Pulse 78 82 82 B/P (MAP) 145/61 (89) 157/74 (101) Pulse Ox 89 96 98 O2 Delivery Room Air Nasal Cannula Nasal Cannula O2 Flow Rate 2.00 2.00 08/19/18 08/19/18 08/19/18 08/19/18 02:00 03:55 03:56 07:00 Temp 98.0 Pulse 67 67 79 Resp 16 B/P (MAP) 135/53 (80) 140/64 (89) Pulse Ox 95 96 96 O2 Delivery Nasal Cannula Nasal Cannula Nasal Cannula O2 Flow Rate 2.00 2.00 2.00 08/19/18 08/19/18 08/19/18 08/19/18 08:10 08:15 08:45 12:27 Temp 97.6 97.0 Pulse 80 79 Resp 18 18 B/P (MAP) 157/68 (97) 149/62 (91) Pulse Ox 96 96 96 97 O2 Delivery Room Air Nasal Cannula Nasal Cannula Room Air O2 Flow Rate 2.00 08/19/18 08/19/18 12:43 13:00 Pulse 76 Pulse Ox 96 O2 Delivery Room Air Capillary Refill : Less Than 3 Seconds General Appearance: WD/WN, no apparent distress HEENT: PERRL/EOMI Neck: non-tender, full range of motion, supple Respiratory: chest non-tender, lungs clear, normal breath sounds, no respiratory distress, no accessory muscle use Cardiovascular: normal peripheral pulses, regular rate, rhythm, no murmur Gastrointestinal: normal bowel sounds, non tender, soft, no organomegaly Back: no CVA tenderness Extremities: normal range of motion, non-tender, no pedal edema, no calf tenderness, normal capillary refill Neurologic/Psychiatric: education and training coordinator II-XII nml as tested, no motor/sensory deficits, alert, normal mood/affect, oriented x 3 Skin: normal color, warm/dry Lymphatic: no adenopathy Assessment/Plan Assessment/Plan Admission Status: Observation (1) Chest pain Status: Acute Assessment & Plan: - Stress test pending tomorrow, continue asa Qualifiers: Qualified Codes: R07.9 - Chest pain, unspecified (2) CAD (coronary artery disease) Status: Chronic Qualifiers: Qualified Codes: I25.10 - Atherosclerotic heart disease of [place] coronary artery without angina pectoris (3) CKD (chronic kidney disease), stage III Status: Chronic Assessment & Plan: - Cr at baseline (4) COPD (chronic obstructive pulmonary disease) Status: Chronic Assessment & Plan: - Continue home meds Qualifiers: Qualified Codes: J44.9 - Chronic obstructive pulmonary disease, unspecified (5) Obesity Status: Chronic Assessment & Plan: - Discussed the need for weight loss Qualifiers: (6) HLD (hyperlipidemia) (7) Hypertension Status: Chronic Assessment & Plan: - Continue home meds Qualifiers: Qualified Codes: I15.0 - Renovascular hypertension (8) DVT prophylaxis Status: Acute Assessment & Plan: - Lovenox Clinical Quality Measures AMI/AHF: ASA po Prior to arrival: No DVT/VTE Risk/Contraindication: Risk Factor Score Per Nursin RFS Level Per Nursing on Admit: 3=High Copy Copies To 1: BRANDIE Gunter HOLLY R MD Aug 19, 2018 15:39
[2018-08-19] MEDS ORDERED: ATORVASTATIN 40 MG (LIPITOR) TABLET PO SCH (21:00)
[2018-08-19] MEDS ORDERED: meTOprolol SUCCINATE 100 MG (TOPROL XL) TAB PO SCH (21:00)
[2018-08-19] MEDS: GABAPENTIN 100 MG (NEURONTIN) CAP PO SCH (21:05)
[2018-08-20 00:05] VITALS: BP 131/61
[2018-08-20 03:54] LABS: BASOPHILS % (AUTO) 0 % (0-10); EOSINOPHILS # (AUTO) 0.2 10^3/uL (0.0-0.3); EOSINOPHILS % (AUTO) 2 % (0-10); HEMATOCRIT 35 % (35-52); HEMOGLOBIN 11.3 G/DL (11.5-16.0); LYMPHOCYTES # (AUTO) 1.2 X 10^3 (1.0-4.0); LYMPHOCYTES % (AUTO) 17 % (12-44); MEAN CORPUSCULAR HEMOGLOBIN 31 PG (25-34); MEAN CORPUSCULAR HGB CONC 32 G/DL (32-36); MEAN CORPUSCULAR VOLUME 95 FL (80-99); MEAN PLATELET VOLUME 10.5 FL (7.4-10.4); MONOCYTES # (AUTO) 0.5 X 10^3 (0.0-1.0); MONOCYTES % (AUTO) 7 % (0-12); NEUTROPHILS % (AUTO) 74 % (42-75); PLATELET COUNT 165 10^3/uL (130-400); RED CELL DISTRIBUTION WIDTH 13.9 % (10.0-14.5); WHITE BLOOD COUNT 6.8 10^3/uL (4.3-11.0)
[2018-08-20 04:13] LABS: CREATININE SERUM 1.19 MG/DL (0.60-1.30); POTASSIUM 4.4 MMOL/L (3.6-5.0)
[2018-08-20 04:22] VITALS: BP 145/54
[2018-08-20] MEDS: inSUlin ASPART (NovoLOG) 1 UNIT/0.01 ML (CHARGE PER UNIT) SC SCH ×2 (05:22→12:30)
[2018-08-20] MEDS ORDERED: REGADENOSON 0.4 MG/5 ML SYR (LEXISCAN) IV ONE ×2 (07:55→08:15)
[2018-08-20 08:49] VITALS: BP 163/81
[2018-08-20] MEDS: ASPIRIN E.C. 81 MG (ECOTRIN) TAB PO SCH (09:55)
[2018-08-20] MEDS: PANTOPRAZOLE 40 MG (PROTONIX) TAB PO SCH (09:55)
[2018-08-20] MEDS: GABAPENTIN 100 MG (NEURONTIN) CAP PO SCH (09:55)
[2018-08-20] MEDS: HYDROCHLOROTHIAZIDE 12.5 MG (HCTZ) CAP PO SCH (09:55)
[2018-08-20] MEDS: lisINopril 20 MG (PRINIVIL) TABLET PO SCH (09:56)
[2018-08-20] MEDS: ACETAMINOPHEN 500 MG TAB (TYLENOL) PO PRN (10:00)
--- NOTE | 2018-08-20 11:10 | NUR ---
Pastoral care visit.
--- NOTE | 2018-08-20 12:19 | Cardiology Progress Note ---
Subjective Date Seen by Provider: Aug 20, 2018 Time Seen by Provider: 12:18 Subjective/Events-last exam Patient is in bed, feeling better Review of Systems General: No Chills, No Night Sweats, No Fatigue, No Malaise, No Appetite, No Other HEENT: No Head Aches, No Visual Changes, No Eye Pain, No Ear Pain, No Dysphasia , No Sinus Congestion, No Post Nasal Drip, No Sore Throat, No Other Pulmonary: No Dyspnea, No Cough, No Pleuritic Chest Pain, No Other Cardiovascular: No: Chest Pain, Palpitations, Orthopnea, Paroxysmal Noc. Dyspnea, Edema, Lt Headedness, Other Objective-Cardiology Exam Last Set of Vital Signs Vital Signs 08/19/18 08/20/18 08:15 09:00 Pulse Ox 96 O2 Delivery Nasal Cannula O2 Flow Rate 2.00 Capillary Refill : Less Than 3 Seconds I&O Intake and Output 08/20/18 00:00 Intake Total 870 ml Output Total 2600 ml Balance -1730 ml Intake Oral 870 ml Output Urine Total 2600 ml # Voids 3 General: Alert, Oriented X3, Cooperative HEENT: Atraumatic, PERRLA Neck: Supple, No JVD, No Thyromegaly Lungs: Clear to Auscultation, Normal Air Movement Heart: Regular Rate, Normal S1, Normal S2, No Murmurs Abdomen: Normal Bowel Sounds, Soft, No Tenderness, No Hepatosplenomegaly, No Masses Extremities: No Clubbing, No Cyanosis, No Edema, Normal Pulses, No Tenderness/ Swelling Skin: No Rashes, No Breakdown, No Significant Lesion Neuro: Normal Gait, Normal Speech, Strength at 5/5 X4 Ext, Normal Tone, Sensation Intact Psych/Mental Status: Mental Status NL, Mood NL Results Lab Laboratory Tests 08/20/18 03:45 A/P-Cardiology Admission Diagnosis Chest pain Coronary artery disease Peripheral arterial disease Hypertension Assessment/Plan Chest pain, nonspecific etiology, atypical in presentation, multiple risk factors for coronary artery disease, stress test is negative, ok for discharge Peripheral arterial disease, history of abdominal aortic aneurysm with stent graft and bilateral renal artery stenting. Procedure done by Dr. 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 I will evaluate arterial Doppler Hypertension, poorly controlled, started on lisinopril, amlodipine and hydrochlorothiazide, I will stop clonidine and continue to monitor blood pressure Hyperlipidemia, maintained on Lipitor 80 mg daily and fish oil, restart medication monitor Gastroesophageal reflux disease COPD Obesity, BMI 47, we discussed weight loss and exercise Clinical Quality Measures AMI/AHF: ASA po Prior to arrival: No DVT/VTE Risk/Contraindication: Risk Factor Score Per Nursin RFS Level Per Nursing on Admit: 3=High MAKENZIE CHAPMAN MD Aug 20, 2018 12:19
[2018-08-20 12:30] VITALS: BP 168/89
--- NOTE | 2018-08-20 12:36 | Discharge Summary ---
Diagnosis/Chief Complaint Date of Admission Aug 18, 2018 at 21:20 Date of Discharge 08/20/2018 Admission Diagnosis Admission Diagnosis See Problem list Discharge Diagnosis See below Problems/Diagnosis: (1) Chest pain Assessment & Plan: - Stress test pending tomorrow, continue asa 08/20: Normal stress testing, cleared for d/c by Dr Smith Qualifiers: Qualified Codes: R07.9 - Chest pain, unspecified Status: Acute (2) CAD (coronary artery disease) Qualifiers: Qualified Codes: I25.10 - Atherosclerotic heart disease of [place] coronary artery without angina pectoris Status: Chronic (3) CKD (chronic kidney disease), stage III Assessment & Plan: - Cr at baseline Status: Chronic (4) COPD (chronic obstructive pulmonary disease) Assessment & Plan: - Continue home meds Qualifiers: Qualified Codes: J44.9 - Chronic obstructive pulmonary disease, unspecified Status: Chronic (5) Obesity Assessment & Plan: - Discussed the need for weight loss Qualifiers: Status: Chronic (6) HLD (hyperlipidemia) Qualifiers: Qualified Codes: E78.2 - Mixed hyperlipidemia (7) Hypertension Assessment & Plan: - Continue home meds Qualifiers: Qualified Codes: I15.0 - Renovascular hypertension Status: Chronic (8) DVT prophylaxis Assessment & Plan: - Lovenox Status: Acute Chief Complaint/HPI Chief Complaint/HPI 57 yo F with h/o multiple stents placed in renal arteries and aorta that presented with acute chest pain. States that it started yesterday and resolved when given the nitro. She has not had any further chest pain since arrival to hospital. Denies any previous stents in heart. Denies any shortness of breath or radiation with chest pain. No other associated symptoms. Discharge Summary-Simple/Stand Procedures 08/20/18: Stress Test Normal Consultations Dr Smith: Cardiology Discharge Physical Examination Allergies: Coded Allergies: NSAIDS (Non-Steroidal Anti-Inflamma (Verified Allergy, Unknown, 11/11/12) Sulfa (Sulfonamide Antibiotics) (Verified Allergy, Unknown, 11/11/12) niacin (Verified Allergy, Unknown, 09/19/11) Uncoded Allergies: IV CONTRAST (Allergy, Unknown, 11/11/12) Vitals & I&Os Vital Sign - Last 12Hours Date Time Temp Pulse Resp B/P (MAP) Pulse Ox O2 Delivery O2 Flow Rate FiO2 08/20/18 09:00 96 Nasal Cannula 08/20/18 08:49 98.0 74 20 163/81 (108) 08/19/18 08:15 2.00 Intake and Output 08/20/18 00:00 Intake Total 620 ml Output Total 600 ml Balance 20 ml General Appearance: Alert, Oriented X3, Cooperative, No Acute Distress HEENT: Mucous Memb Moist/[place] Respiratory: Clear to Auscultation, Normal Air Movement Cardiovascular: Regular Rate, No Murmurs Abdominal: Normal Bowel Sounds, Soft, No Tenderness, No Masses Extremities: No Edema, No Tenderness/Swelling Skin: No Rashes, No Breakdown Neuro: Normal Gait, Normal Speech, Strength at 5/5 X4 Ext, Sensation Intact, Cranial Nerves 3-12 NL Psych/Mental Status: Mental Status NL, Mood NL Hospital Course Was the Problem List Reviewed?: Yes See final discharge diagnosis. Discussion & Recommendations 57 yo F with extensive h/o stenting to renal arteries and aorta that presented with new atypical chest pain. Pain resolved in ER with Nitro and did not return during admission. Normal ECG and CE during admission. Patient has stress testing this admission that was normal and reviewed by Dr Smith. She will have close f.u with Dr Smith and PCP at [facility] Discharge Condition at discharge stable Instructions to patient/family Please see electronic discharge instructions given to patient. Discharge Medications Reviewed and agree with Discharge Medication list on patient's Discharge Instruction sheet Clinical Quality Measures AMI/AHF: ASA po Prior to arrival: No DVT/VTE Risk/Contraindication: Risk Factor Score Per Nursin RFS Level Per Nursing on Admit: 3=High Copy Copies To 1: [facility] CENT[facility]atey AMEZQUITA APRN GAULT, HOLLY R MD Aug 20, 2018 12:36
[2018-08-20] MEDS ORDERED: ASPI-983 PO (12:37)
--- NOTE | 2018-08-20 12:40 | Discharge Instructions ---
Discharge [facility] Discharge Medications New, Converted or Re-Newed RX: Other New Medications: Aspirin (Aspirin EC) 81 Mg Tablet. 81 MG PO DAILY, #30 TAB Continued Medications: Amlodipine Besylate (Amlodipine Besylate) 10 Mg Tablet 10 MG PO HS, TAB Ascorbate Calcium (Vitamin C) 500 Mg Tablet 500 MG PO DAILY, TAB Atorvastatin Calcium (Atorvastatin Calcium) 10 Mg Tablet 10 MG PO HS, TAB Betamethasone/Propylene Glyc (Betamethasone Dp Aug 0.05% Crm) 15 Gm Cream..g. TOP BID PRN for SORES, EA Calcium Carbonate/Vitamin D3 (Calcium 500 + D Tablet) 1 Each Tablet 1 TAB PO DAILY, TAB Fluticasone Propionate (Fluticasone Propionate) 16 Gm [place].susp 1 SPRAY NS HS, EA Gabapentin (Gabapentin) 100 Mg Capsule 100 MG PO BID, CAP Hydrochlorothiazide (Hydrochlorothiazide) 12.5 Mg Tablet 12.5 MG PO DAILY, TAB Lisinopril (Lisinopril) 20 Mg Tablet 20 MG PO DAILY, TAB Metoprolol Succinate (Metoprolol Succinate) 200 Mg Tab.er.24h 200 MG PO HS, TAB Multivitamin (Daily Vitamin Formula) 1 Each Tablet 1 TAB PO HS, TAB Multivits,Stress Formula (Stress Formula) 1 Each Tablet 1 TAB PO HS, TAB Omeprazole (Omeprazole) 40 Mg Capsule. 40 MG PO DAILY, CAP Patient Instructions Goal/Follow Up Appt: You have a follow up appt on August 29 @ 840 AM with Raheel Activity & Diet Discharge Diet: Cardiac Diet Activity as Tolerated: Yes Copy Copies To 1: [facility] HOLLY R MD Aug 20, 2018 12:40
--- NOTE | 2018-08-20 12:49 | STRESS TEST ---
DATE OF SERVICE: 08/20/2018 LEXISCAN MYOVIEW STRESS TEST REPORT REFERRING PHYSICIAN: Emma Moreno DO INDICATION: Chest pain. Baseline heart rate is 75. Baseline blood pressure 182/85. Baseline EKG is sinus rhythm with no ischemic changes. IN SUMMARY: The patient was injected with 10.16 mCi of technetium-99 Myoview and the resting images were obtained and then the patient received 0.4 mg of Lexiscan, followed by 31.7 mCi of technetium-99 Myoview. Throughout the test, there were no EKG changes. The resting and stress images were reviewed and compared in the short axis, horizontal long axis, and vertical long axis views. Review of the images showed breast attenuation with typical female pattern. No significant ischemia or infarction was seen. SSS is 3, SDS 3, TID value 0.99. On the gated images, the left ventricle appeared to be in normal size with normal contractility. Calculated ejection fraction 65%. IN CONCLUSION: 1. The patient tolerated Lexiscan well. 2. Typical female pattern with no significant ischemia or infarction on SPECT images. 3. Normal left ventricular size with normal contractility. Calculated ejection fraction 65%. Job ID: [id number] DocumentID: [id number] Dictated Date: 08/20/2018 12:10:04 Senior Principal Date: 08/20/2018 12:49:22 Dictated By: MAKENZIE CHAPMAN MD
== END 2018-08-20 12:38 | disposition home or self-care (01) ==
LOC: EDUNIT# 18:57 → ER 18:58 → UNDOADMOB 20:05 → ICU 20:05
PROVIDERS: ADMIT Internal Medicine; ATTEND Internal Medicine
DX: R07.9 Chest pain, unspecified (principal); I25.10 Atherosclerotic heart disease of native coronary artery without angina pectoris; I15.0 Renovascular hypertension; N18.3 Chronic kidney disease, stage 3 (moderate); J44.9 Chronic obstructive pulmonary disease, unspecified; E66.9 Obesity, unspecified; E78.5 Hyperlipidemia, unspecified; Z88.2 Allergy status to sulfonamides; I73.9 Peripheral vascular disease, unspecified; K21.9 Gastro-esophageal reflux disease without esophagitis; Z68.42 Body mass index [BMI] 45.0-49.9, adult; Z91.041 Radiographic dye allergy status; G62.9 Polyneuropathy, unspecified; R32 Unspecified urinary incontinence; Z87.891 Personal history of nicotine dependence; R73.03 Prediabetes; K75.81 Nonalcoholic steatohepatitis (NASH); R91.1 Solitary pulmonary nodule; M19.91 Primary osteoarthritis, unspecified site; M79.7 Fibromyalgia; H40.9 Unspecified glaucoma; Z91.19 Patient's noncompliance with other medical treatment and regimen; Z79.899 Other long term (current) drug therapy; E78.00 Pure hypercholesterolemia, unspecified; Z87.440 Personal history of urinary (tract) infections
CPT/HCPCS: 36415; 71045; 78452; 80048; 80053; 80061; 82962; 83735; 83874; 83880; 84484; 85025; 85610; 85730; 93005; 93017; 93041; 93306; 93931

== ENCOUNTER 2019-03-08 18:38 | Observation (INO) | payer BC ==
[~2019-03-08] VITALS: Ht 165 cm; Wt 133.4 kg
[~2019-03-08 18:38] MED LIST changes: +AMLO10TA7 PO; +ASPI-983 PO; +BETA15CR14 TOP; +MULT-351 PO; +OMEP40CA27 PO; -OMEP40CA36 PO; +TRM50T PO
[2019-03-08] MEDS ORDERED: NITROGLYCERIN 2% OINT 1 GM UNIT DOSE PACKET TOP STA (19:00)
[2019-03-08] MEDS ORDERED: ASPIRIN 81 MG CHEW (CHILDREN'S ASA) PO ONE (19:00)
--- NOTE | 2019-03-08 19:07 | ED Chest Pain ---
General Chief Complaint: Chest Pain Stated Complaint: RT ARM PAIN,SOB,HEARTBURN,NAUSEA Source: patient History of Present Illness Date Seen by Provider: Mar 08, 2019 Time Seen by Provider: 18:50 Initial Comments PT ARRIVES VIA POV C/O CHEST PAIN OFF AND ON ALL DAY STATES PAIN WAS 7/10 AT WORST, NOW 5/10 NOTHING WORSENS OR IMPROVES PAIN DENIES RADIATION OF PAIN TO ME C/O NAUSEA, NO VOMITING--"THOUGHT IT WAS HEARTBURN" NO ABDOMINAL PAIN NO BACK PAIN HAS HAD SOME PALPITATIONS OFF AND ON --HEART BEATING HARD/POUNDING HAS ONGOING SWELLING IN LEGS/ FEET NO SWEATS NO DIZZINESS C/O MILD [id number] OF BREATH OFF AND ON HAS HISTORY OF SAME HAS HAD CARDIAC CATHS--NO INTERVENTION TO HEART, BUT HAS HAD STENTS IN BOTH LEGS, STENTS IN KIDNEYS, AND HAS A STENT IN ABDOMINAL AORTIC ANEURYSM. STATES SHE TOOK ALL AM MEDICATIONS BUT NO PM MEDICATIONS PT HAS WORKED ALL DAY PT IS "BORDERLINE" DIABETIC, BUT DOES NOT TAKE MEDICATION AND DOES NOT CHECK BLOOD SUGAR PT STATES SHE SAW DR. ROSAS LAST WEEK FOR POSSIBLE GOUT IN RIGHT ANKLE--PAIN AND SWELLING TO RIGHT ANKLE. FINISHED PREDNISONE, NO OTHER MEDICATIONS GIVEN STATES SHE CAN'T TAKE ALOT OF MEDICATIONS BECAUSE SHE ONLY HAS ONE KIDNEY, STATES HER RIGHT KIDNEY IS "" PCP: [facility]. DR. ROSAS, [place] BALDWIN. TRAVELING NURSE: DR. CHAPMAN Allergies and Home Medications Allergies Coded Allergies: NSAIDS (Non-Steroidal Anti-Inflamma (Verified Allergy, Unknown, 11/11/12) Sulfa (Sulfonamide Antibiotics) (Verified Allergy, Unknown, 11/11/12) niacin (Verified Allergy, Unknown, 09/19/11) Uncoded Allergies: IV CONTRAST (Allergy, Unknown, 11/11/12) Home Medications Amlodipine Besylate 10 Mg Tablet, 10 MG PO HS, (Reported) Ascorbate Calcium 500 Mg Tablet, 500 MG PO DAILY, (Reported) Aspirin 81 Mg Tablet.dr, 81 MG PO DAILY Prescribed by: ISELA BAH on 08/20/18 1237 Atorvastatin Calcium 10 Mg Tablet, 10 MG PO HS, (Reported) Betamethasone/Propylene Glyc 15 Gm Cream..g., TOP BID PRN for SORES, (Reported) Calcium Carbonate/Vitamin D3 1 Each Tablet, 1 TAB PO DAILY, (Reported) Fluticasone Propionate 16 Gm [place].susp, 1 SPRAY NS HS, (Reported) Gabapentin 100 Mg Capsule, 100 MG PO BID, (Reported) Hydrochlorothiazide 12.5 Mg Tablet, 12.5 MG PO DAILY, (Reported) Lisinopril 20 Mg Tablet, 20 MG PO DAILY, (Reported) Metoprolol Succinate 200 Mg Tab.er.24h, 200 MG PO HS, (Reported) Multivitamin 1 Each Tablet, 1 TAB PO HS, (Reported) Multivits,Stress Formula 1 Each Tablet, 1 TAB PO HS, (Reported) Omeprazole 40 Mg Capsule.dr, 40 MG PO DAILY, (Reported) Patient Home Medication List Home Medication List Reviewed: Yes Review of Systems Review of Systems Constitutional: no symptoms reported; No diaphoresis, No dizziness, No fever, No malaise EENTM: No Symptoms Reported Respiratory: See HPI, Shortness of Air Cardiovascular: See HPI, Chest Pain, Edema; Denies Lightheadedness; Palpitations; Denies Syncope Gastrointestinal: See HPI; Denies Abdominal Pain; Nausea; Denies Vomiting Genitourinary: No Symptoms Reported Musculoskeletal: no symptoms reported; No back pain Skin: no symptoms reported Psychiatric/Neurological: No Symptoms Reported; Denies Headache, Denies Numbness, Denies Seizure, Denies Tingling, Denies Weakness Endocrine: No Symptoms Reported Hematologic/Lymphatic: No Symptoms Reported Past Tdochdg-Ucfpiu-Aixqri Hx Past Med/Social Hx: Reviewed and Corrections made Patient Social History Alcohol Use: Rarely Uses Alcohol Beverage of Choice: Wine Recreational Drug Use: No Smoking Status: Former Smoker Type Used: Cigarettes Former Smoker, Quit: Feb 08, 2011 Recent Hopitalizations: No Immunizations Up To Date Tetanus Booster (TDap): Less than 5yrs Date of Pneumonia Vaccine: Feb 04, 2018 Date of Influenza Vaccine: Feb 04, 2017 Seasonal Allergies Seasonal Allergies: No Past Medical History Surgeries: Yes (CARDIAC CATHS--NO INTERVENTION TO HEART, BUT HAS HAD BILATERAL LEG STENTS, BILATERAL RENAL ARTERY STENTS, AND STENT TO ABDOMINAL AORTIC ANEURYSM. LEFT EARDRUM RECONSTRUCTION; ) Adenoidectomy, Cardiac, Ear Surgery, Tonsillectomy, Vascular Surgery Respiratory: Yes Asthma, COPD Cardiac: Yes (CARDIAC CATHS--NO INTERVENTION IN HEART, BUT HAS HAD BILATERAL LEG STENTS, BILATERAL RENAL ARTERY STENTS AND STENT IN ABDOMINAL AORTIC ANEURYSM. 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 MORBID OBESITY. ) Diabetes, Non-Insulin dep HEENT: Yes (LEFT EAR DRUM RECONSTRUCTION; BLIND IN LEFT EYE. ) Chronic Ear Infection, Glaucoma Loss of Vision: Left Cancer: No Psychosocial: No Integumentary: No Blood Disorders: Yes (ANEMIA) Adverse Reaction/Blood Tranf: No Family Medical History Patient reports no known family medical history. No Pertinent Family Hx Physical Exam Vital Signs Vital Signs - First Documented Capillary Refill : Height, Weight, BMI Height: 5'5.00" Weight: 285lbs. 3.0oz. [id number]; 47.8 BMI Method:Stated General Appearance: No Apparent Distress, Obese (MORBIDLY) HEENT: Other (ONLY A FEW LOWER TEETH REMAINING. ) Neck: Full Range of Motion, Normal Inspection, Non Tender, Supple; No Carotid Bruit, No JVD Respiratory: Normal Breath Sounds, No Accessory Muscle Use, No Respiratory Distress, Other (MID AND UPPER STERNAL TENDERNESS) Cardiovascular: Regular Rate, Rhythm, No JVD, No Murmur Gastrointestinal: Non Tender, Soft Extremity: Normal Capillary Refill, Normal Range of Motion, No Calf Tenderness, Pedal Edema (1+ ON LEFT, 2+ ON RIGHT, EQUIVOCAL ANGELIA'S ON RIGHT--CAUSES DISCOMFORT MOSTLY AROUND ANKLE. 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 Norm as Tested Skin: Normal Color, Warm/Dry; No Rash Progress/Results/Core Measures Results/Orders Lab Results Laboratory Tests Test 03/08/19 18:54 03/08/19 19:45 Range/Units White Blood Count 7.3 4.3-11.0 10^3/uL Red Blood Count 3.84 L 4.35-5.85 10^6/uL Hemoglobin 11.6 11.5-16.0 G/DL Hematocrit 37 35-52 % Mean Corpuscular Volume 96 80-99 FL Mean Corpuscular Hemoglobin 30 25-34 PG Mean Corpuscular Hemoglobin Concent 32 32-36 G/DL Red Cell Distribution Width 13.9 10.0-14.5 % Platelet Count 181 130-400 10^3/uL Mean Platelet Volume 10.6 H 7.4-10.4 FL Neutrophils (%) (Auto) 65 42-75 % Lymphocytes (%) (Auto) 25 12-44 % Monocytes (%) (Auto) 7 0-12 % Eosinophils (%) (Auto) 3 0-10 % Basophils (%) (Auto) 0 0-10 % Neutrophils # (Auto) 4.7 1.8-7.8 X 10^3 Lymphocytes # (Auto) 1.8 1.0-4.0 X 10^3 Monocytes # (Auto) 0.5 0.0-1.0 X 10^3 Eosinophils # (Auto) 0.2 0.0-0.3 10^3/uL Basophils # (Auto) 0.0 0.0-0.1 10^3/uL Prothrombin Time 13.1 12.2-14.7 SEC INR Comment 1.0 0.8-1.4 Activated Partial Thromboplast Time 29 24-35 SEC Sodium Level 135 135-145 MMOL/L Potassium Level 4.2 3.6-5.0 MMOL/L Chloride Level 102 98-107 MMOL/L Carbon Dioxide Level 20 L 21-32 MMOL/L Anion Gap 13 5-14 MMOL/L Blood Urea Nitrogen 16 7-18 MG/DL Creatinine 1.66 H 0.60-1.30 MG/DL Estimat Glomerular Filtration Rate 32 BUN/Creatinine Ratio 10 Glucose Level 238 H 70-105 MG/DL Calcium Level 9.5 8.5-10.1 MG/DL Corrected Calcium 9.1 8.5-10.1 MG/DL Magnesium Level 1.9 1.6-2.4 MG/DL Total Bilirubin 0.4 0.1-1.0 MG/DL Aspartate Amino Transf (AST/SGOT) 17 5-34 U/L Alanine Aminotransferase (ALT/SGPT) 27 0-55 U/L Alkaline Phosphatase 87 40-136 U/L Total Creatine Kinase 80 29-168 U/L Creatine Kinase MB 1.0 <6.6 NG/ML Myoglobin 40.2 10.0-92.0 NG/ML Troponin I < 0.028 <0.028 NG/ML B-Type Natriuretic Peptide 21.7 <100.0 PG/ML Total Protein 7.5 6.4-8.2 GM/DL Albumin 4.5 3.2-4.5 GM/DL Amylase Level 46 25-125 U/L Lipase 44 8-78 U/L Urine Color YELLOW Urine Clarity CLEAR Urine pH 6 5-9 Urine Specific [place] 1.005 L 1.016-1.022 Urine Protein NEGATIVE NEGATIVE Urine Glucose (UA) 1+ H NEGATIVE Urine Ketones NEGATIVE NEGATIVE Urine Nitrite NEGATIVE NEGATIVE Urine Bilirubin NEGATIVE NEGATIVE Urine Urobilinogen NORMAL NORMAL MG/DL Urine Leukocyte Esterase 1+ H NEGATIVE Urine RBC (Auto) NEGATIVE NEGATIVE Urine RBC NONE /HPF Urine WBC 5-10 H /HPF Urine Squamous Epithelial Cells 0-2 /HPF Urine Crystals NONE /LPF Urine Bacteria FEW H /HPF Urine Casts NONE /LPF Urine Mucus NEGATIVE /LPF Urine Culture Indicated YES My Orders Orders - STANLEY ALTAMIRANO DO Cbc With Automated Diff (03/08/19:) Magnesium (03/08/19:) Chest 1 View, Ap/Pa Only (03/08/19:) Ekg Tracing (03/08/19:) Cardiac Profile 1 (03/08/19:) Comprehensive Metabolic Panel (03/08/19) Myoglobin Serum (03/08/19:) Protime With Inr (03/08/19:) Partial Thromboplastin Time (03/08/19:) O2 (03/08/19:00) Monitor-Rhythm Ecg Trace Only (03/08/19) Lipid Panel (03/09/19 06:00) Ed Iv/Invasive Line Start (03/08/19:) Creatine Kinase (03/08/19:) Creatine Kinase Mb (03/08/19:00) Lipase (03/08/19:) Amylase (03/08/19:) BNP (03/08/19:) Nitroglycerin Ointment (Nitrobid Ointme (03/08/19:) Aspirin Chewable Tablet (Baby Aspirin Ch (03/08/19:00) Ua Culture If Indicated (11/2/19 19:00) Metoprolol Tartrate Injection (Lopressor (03/08/19 19:30) Morphine Injection (Morphine Injection (03/08/19 20:00) Morphine Injection (Morphine Injection (03/08/19 19:53) Metoprolol Succinate (Xl) Tab (Toprol Xl (03/08/19 20:00) Enoxaparin Injection (Lovenox Injection) (03/08/19 20:00) Enoxaparin Injection (Lovenox Injection) (03/08/19 20:00) Medications Given in ED Current Medications Medications Dose Ordered Sig/Aramis Route Start Time Stop Time Status Last Admin Dose Admin Aspirin 324 mg ONCE ONCE PO 03/08/19 19:00 03/08/19 19:01 DC 03/08/19 19:05 324 MG Enoxaparin Sodium 40 mg ONCE ONCE SC 03/08/19 20:00 03/08/19 20:01 DC 03/08/19 20:15 40 MG Enoxaparin Sodium 100 mg ONCE ONCE SC 03/08/19 20:00 03/08/19 20:01 DC 03/08/19 20:14 100 MG Metoprolol Succinate 100 mg ONCE ONCE PO 03/08/19 20:00 03/08/19 20:01 DC 03/08/19 20:14 100 MG Metoprolol Tartrate 5 mg ONCE ONCE IV 03/08/19 19:30 03/08/19 19:31 DC 03/08/19 19:35 5 MG Vital Signs/I&O 03/08/19 03/08/19 03/08/19 18:50 18:50 18:50 Temp 35.7 Pulse 86 Resp 20 B/P (MAP) 230/98 (142) Pulse Ox 99 99 O2 Delivery Room Air Room Air Room Air Progress Progress Note : Progress Note GIVEN NITROPASTE WITH MINIMAL IMPROVEMENT IN CHEST PAIN OR BP GIVEN LOPRESSOR 5 MG X 3 DOSES, WITH IMPROVEMENT IN BP AND CHEST PAIN STATES PAIN DOWN TO "3", BUT DECLINES MORPHINE OR ANY OTHER PAIN MEDICATION--STATES "THE PAIN IS GETTING BETTER" GIVEN ADDITIONAL TOPROL XL AND AMLODIPINE FOR BP UNABLE TO OBTAIN ULTRASOUND OVER THE WEEKEND, AND CREATININE TOO HIGH TO DO CT CHEST ANGIOGRAM AT THIS TIME, AND WITH PT'S HISTORY OF 1 NON-FUNCTIONING KIDNEY. SO WILL TREAT EMPIRICALLY WITH LOVENOX AT THIS TIME. Initial ECG Impression Date: Mar 08, 2019 Initial ECG Impression Time: 18:56 Initial ECG Rate: 64 Initial ECG Rhythm: Normal Sinus Diagnostic Imaging Comments CXR--NO ACUTE PROCESS, PER RADIOLOGIST REPORT AT 1950 Reviewed: Reviewed by Me Departure Communication (Admissions) 2004--SPOKE WITH DR. OLIVA, HOSPITALIST FOR [facility], ACCEPTS PT FOR ADMIT 2014--SPOKE WITH DR. CORBETT, CARDIOLOGY CONSULT. ORDERS NOTED FOR AMLODIPINE, IN ADDITION TO TOPROL. AGREES WITH LOVENOX AND ASPIRIN AND NITROPASTE Impression Primary Impression: Chest pain Additional Impressions: Uncontrolled hypertension LEG SWELLING RIGHT > LEFT NIDDM UNCONTROLLED UTI (urinary tract infection) Chronic renal failure Disposition: ADMITTED INPATIENT Condition: Improved Admissions Decision to Admit Reason: Admit from ER (General) Decision to Admit/Date: Mar 08, 2019 Time/Decision to Admit Time: 20:05 Departure-Patient Inst. Referrals: WHIT LOVELL DO (PCP) Primary Care Physician MARKUS BALDWIN APRN (Family) Primary Care Physician STANLEY ALTAMIRANO DO Mar 08, 2019 19:07 POS
[2019-03-08 19:09] LABS: BASOPHILS % (AUTO) 0 % (0-10); EOSINOPHILS # (AUTO) 0.2 10^3/uL (0.0-0.3); EOSINOPHILS % (AUTO) 3 % (0-10); HEMATOCRIT 37 % (35-52); HEMOGLOBIN 11.6 G/DL (11.5-16.0); LYMPHOCYTES # (AUTO) 1.8 X 10^3 (1.0-4.0); LYMPHOCYTES % (AUTO) 25 % (12-44); MEAN CORPUSCULAR HEMOGLOBIN 30 PG (25-34); MEAN CORPUSCULAR HGB CONC 32 G/DL (32-36); MEAN CORPUSCULAR VOLUME 96 FL (80-99); MEAN PLATELET VOLUME 10.6 FL (7.4-10.4); MONOCYTES # (AUTO) 0.5 X 10^3 (0.0-1.0); MONOCYTES % (AUTO) 7 % (0-12); NEUTROPHILS # (AUTO) 4.7 X 10^3 (1.8-7.8); NEUTROPHILS % (AUTO) 65 % (42-75); PLATELET COUNT 181 10^3/uL (130-400); RED CELL DISTRIBUTION WIDTH 13.9 % (10.0-14.5); WHITE BLOOD COUNT 7.3 10^3/uL (4.3-11.0)
[2019-03-08 19:17] LABS: PROTHROMBIN TIME PATIENT 13.1 SEC (12.2-14.7)
[2019-03-08 19:22] LABS: ALANINE AMINOTRANSFERASE 27 U/L (0-55); ALBUMIN 4.5 GM/DL (3.2-4.5); ALKALINE PHOSPHATASE 87 U/L (40-136); AMYLASE 46 U/L (25-125); BILIRUBIN,TOTAL 0.4 MG/DL (0.1-1.0); BUN/CREATININE RATIO 10; CALCIUM 9.5 MG/DL (8.5-10.1); CARBON DIOXIDE 20 MMOL/L (21-32); CHLORIDE 102 MMOL/L (98-107); CREATINE KINASE 80 U/L (29-168); CREATININE SERUM 1.66 MG/DL (0.60-1.30); GFR ESTIMATED 32; GLUCOSE 238 MG/DL (70-105); LIPASE 44 U/L (8-78); MAGNESIUM 1.9 MG/DL (1.6-2.4); POTASSIUM 4.2 MMOL/L (3.6-5.0); SODIUM 135 MMOL/L (135-145); TOTAL PROTEIN 7.5 GM/DL (6.4-8.2)
[2019-03-08] MEDS ORDERED: meTOprolol 5 MG/5 ML (LOPRESSOR) VIAL IV ONE (19:30)
--- NOTE | 2019-03-08 19:42 | NUR ---
PT'S BLOOD PRESSURE NOTED 158/67
[2019-03-08] MEDS ORDERED: morphine INJ 10 MG/ML 1ML (SYR OR VIAL) ONE (19:53)
--- NOTE | 2019-03-08 19:54 | Diagnostic Imaging Report ---
EXAMINATION: Chest, 1 view. HISTORY: Chest pain. COMPARISON: Comparison is 08/18/2018. FINDINGS: The lungs are clear. No edema. No pneumonia. No pleural effusion. No pneumothorax. Heart is normal in size. IMPRESSION: Clear lungs. Dictated by: Dictated on workstation # [id number]
[2019-03-08 19:55] LABS: BILIRUBIN,URINE NEGATIVE (NEGATIVE); CLARITY,URINE CLEAR; COLOR,URINE YELLOW; GLUCOSE, URINE (UA) 1+ (NEGATIVE); KETONES,URINE NEGATIVE (NEGATIVE); LEUKOCYTE ESTERASE ,URINE 1+ (NEGATIVE); NITRITE,URINE NEGATIVE (NEGATIVE); PH,URINE 6 (5-9); PROTEIN,URINE NEGATIVE (NEGATIVE)
[2019-03-08] MEDS ORDERED: ENOXAPARIN 100 MG/1 ML (LOVENOX) SYR SC ONE (20:00)
[2019-03-08] MEDS ORDERED: ENOXAPARIN 40 MG/0.4 ML (LOVENOX) SYR SC ONE (20:00)
[2019-03-08] MEDS ORDERED: morphine INJ 10 MG/ML 1ML (SYR OR VIAL) IVP ONE (20:00)
[2019-03-08] MEDS ORDERED: meTOprolol SUCCINATE 100 MG (TOPROL XL) TAB PO ONE (20:00)
[2019-03-08 20:08] LABS: BACTERIA,URINE FEW /HPF; SQUAMOUS EPITHELIAL CELL,UR 0-2 /HPF
[2019-03-08] MEDS ORDERED: cefTRIAXone FOR IV USE 1,000 MG in WATER (STERILE) FOR INJECTION 10 ML IV ONE (20:30)
[2019-03-08] MEDS ORDERED: amLODIPine 10 MG (NORVASC) TAB PO ONE (20:30)
--- NOTE | 2019-03-08 20:40 | NUR ---
IV SITE INFILTRAITED, ASSESSED ALTERNATE SITE
--- NOTE | 2019-03-08 20:46 | NUR ---
22GA IV INSERTED INTO R HAND BY JANE BONILLA
[2019-03-08 21:13] VITALS: BP 196/75
[2019-03-08 21:18] VITALS: BP 196/75
[2019-03-08 21:34] VITALS: BP 189/80
[2019-03-08 21:47] VITALS: BP 182/65
[2019-03-08 22:05] VITALS: BP 165/75
[2019-03-08] MEDS ORDERED: morphine INJ 4 MG/ML 1 ML (VIAL/SYRINGE) IV PRN (22:45)
[2019-03-08 23:12] VITALS: BP 155/71
[2019-03-09 00:44] VITALS: BP 124/63
[2019-03-09] MEDS: NITROGLYCERIN 2% OINT 1 GM UNIT DOSE PACKET TOP SCH ×2 (02:55→08:49)
[2019-03-09 03:05] VITALS: BP 146/55
[2019-03-09 03:07] LABS: BASOPHILS % (AUTO) 0 % (0-10); EOSINOPHILS # (AUTO) 0.2 10^3/uL (0.0-0.3); EOSINOPHILS % (AUTO) 3 % (0-10); HEMATOCRIT 35 % (35-52); HEMOGLOBIN 11.3 G/DL (11.5-16.0); LYMPHOCYTES # (AUTO) 1.9 X 10^3 (1.0-4.0); LYMPHOCYTES % (AUTO) 30 % (12-44); MEAN CORPUSCULAR HEMOGLOBIN 31 PG (25-34); MEAN CORPUSCULAR HGB CONC 32 G/DL (32-36); MEAN CORPUSCULAR VOLUME 95 FL (80-99); MONOCYTES # (AUTO) 0.5 X 10^3 (0.0-1.0); MONOCYTES % (AUTO) 7 % (0-12); NEUTROPHILS # (AUTO) 3.7 X 10^3 (1.8-7.8); NEUTROPHILS % (AUTO) 60 % (42-75); PLATELET COUNT 165 10^3/uL (130-400); RED CELL DISTRIBUTION WIDTH 13.9 % (10.0-14.5); WHITE BLOOD COUNT 6.3 10^3/uL (4.3-11.0)
[2019-03-09 03:28] LABS: ALANINE AMINOTRANSFERASE 27 U/L (0-55); ALKALINE PHOSPHATASE 73 U/L (40-136); BILIRUBIN,TOTAL 0.3 MG/DL (0.1-1.0); BUN/CREATININE RATIO 15; CALCIUM 9.2 MG/DL (8.5-10.1); CARBON DIOXIDE 18 MMOL/L (21-32); CHLORIDE 105 MMOL/L (98-107); CHOLESTEROL 175 MG/DL (< 200); CREATINE KINASE 53 U/L (29-168); CREATININE SERUM 1.54 MG/DL (0.60-1.30); GFR ESTIMATED 35; GLUCOSE 187 MG/DL (70-105); HDL CHOLESTEROL 30 MG/DL (40-60); POTASSIUM 4.1 MMOL/L (3.6-5.0); SODIUM 136 MMOL/L (135-145); TOTAL PROTEIN 6.9 GM/DL (6.4-8.2); TRIGLYCERIDES 425 MG/DL (<150); VLDL CHOLESTEROL 85 MG/DL (5-40)
[2019-03-09 03:33] LABS: PROTHROMBIN TIME PATIENT 13.5 SEC (12.2-14.7)
[2019-03-09 04:05] VITALS: BP 156/76
[2019-03-09] MEDS: inSUlin ASPART (NovoLOG) 1 UNIT/0.01 ML (CHARGE PER UNIT) SC SCH ×2 (05:32→12:05)
[2019-03-09 08:00] VITALS: BP 175/92
[2019-03-09] MEDS ORDERED: meTOprolol SUCCINATE 100 MG (TOPROL XL) TAB PO SCH (09:00)
[2019-03-09] MEDS ORDERED: ENOXAPARIN 80 MG/0.8 ML (LOVENOX) SYR SC SCH (09:00)
[2019-03-09] MEDS ORDERED: ASPIRIN E.C. 81 MG (ECOTRIN) TAB PO SCH (09:00)
[2019-03-09] MEDS ORDERED: amLODIPine 10 MG (NORVASC) TAB PO SCH (09:00)
--- NOTE | 2019-03-09 09:59 | Consultation-Cardiology ---
HPI-Cardiology Cardiology Consultation: Date of Consultation 03/09/19 Time Seen by a Provider: 09:55 Date of Admission 03/08/19 Attending Physician Madiha Valerio DO Admitting Physician Emma Moreno DO Consulting Physician MARY CORBETT MD, MA, FACP, FACC, FSCAI, CCDS Primary er medical technician: Dr Andrews HPI: Chief Complaint: CC: Chest discomfort HPI 58 yo woman admitted by Dr Valerio for chest pain and hypertension. Chest pain: tans-thoracic, all day yesterday (12-24 hours), mild to mod, sometimes dull, sometimes sharp, not related exertion, radiating intermittently down the R arm, w/o aggravating or relieving factors, similar to the episodes that she has had intermittently for more than a year and that she experiences a few time a month and for which she has previously had a w/u with Dr Smith and has been found to be noncardiac. Her BP was quite elevated last night and she was admitted for observation and treatment. She has chronic exertional shortness of breath. She has chronic leg swelling that worsens with the day and improves overnight, unchanged in the recent past. Review of Systems-Cardiology Review of Systems Constitutional: malaise, tiredness; No weight loss, No weight gain Eyes: No vision change Ears/Nose/Throat: No ear discharge, No nasal drainage, No recent hearing loss Respiratory: As described under HPI Cardiovascular: As described under HPI Gastrointestinal: No diarrhea, No nausea, No vomiting Genitourinary: No dysuria, No hematuria, No urine frequency changes Musculoskeletal: back pain (chronic, intermittent, mild to moderate) Skin: No rash, No ulcerations Psychiatric/Neurological: No seizure, No focal weakness, No syncope Hematologic: No bleeding abnormalities ASE-Dczpcw-Oqrdkq Hx Patient Social History Alcohol Use: Rarely Uses Recreational Drug Use: No Smoking Status: Former Smoker Former smoker/When Quit: May 07, 2011 Type Used: Cigarettes Recent Foreign Travel: No Recent Infectious Disease Expo: No Hospitalization with Isolation: Denies Immunizations Up To Date Tetanus Booster (TDap): Less than 5yrs Date of Pneumonia Vaccine: Feb 04, 2017 Date of Influenza Vaccine: Feb 04, 2019 Past Medical History PMH As described under Assessment. Family Medical History Family History: Patient reports no known family medical history. Allergies and Home Medications Allergies Coded Allergies: NSAIDS (Non-Steroidal Anti-Inflamma (Verified Allergy, Unknown, 11/11/12) Sulfa (Sulfonamide Antibiotics) (Verified Allergy, Unknown, 11/11/12) niacin (Verified Allergy, Unknown, 09/19/11) Uncoded Allergies: IV CONTRAST (Allergy, Unknown, 11/11/12) Home Medications Amlodipine Besylate 10 Mg Tablet, 10 MG PO HS, (Reported) Ascorbate Calcium 500 Mg Tablet, 500 MG PO DAILY, (Reported) Aspirin 81 Mg Tablet.dr, 81 MG PO DAILY Prescribed by: ISELA BAH on 08/20/18 1237 Atorvastatin Calcium 10 Mg Tablet, 10 MG PO HS, (Reported) Betamethasone/Propylene Glyc 15 Gm Cream..g., TOP BID PRN for SORES, (Reported) Calcium Carbonate/Vitamin D3 1 Each Tablet, 1 TAB PO DAILY, (Reported) Fluticasone Propionate 16 Gm [place].susp, 1 SPRAY NS HS, (Reported) Gabapentin 100 Mg Capsule, 100 MG PO BID, (Reported) Hydrochlorothiazide 12.5 Mg Tablet, 12.5 MG PO DAILY, (Reported) Lisinopril 20 Mg Tablet, 20 MG PO DAILY, (Reported) Metoprolol Succinate 200 Mg Tab.er.24h, 200 MG PO HS, (Reported) Multivitamin 1 Each Tablet, 1 TAB PO HS, (Reported) Multivits,Stress Formula 1 Each Tablet, 1 TAB PO HS, (Reported) Omeprazole 40 Mg Capsule.dr, 40 MG PO DAILY, (Reported) Patient Home Medication List Home Medication List Reviewed: Yes Physical Exam-Cardiology Physical Exam Vital Signs/I&O 03/08/19 03/09/19 03/09/19 03/09/19 23:12 00:00 00:00 00:44 Temp 36.9 Pulse 72 62 Resp 18 16 B/P (MAP) 155/71 (99) 124/63 (83) Pulse Ox 96 96 93 O2 Delivery Room Air Room Air Room Air 03/09/19 03/09/19 03/09/19 03/09/19 01:00 03:05 04:00 04:05 Temp 36.8 Pulse 63 60 72 Resp 16 16 B/P (MAP) 146/55 (85) 156/76 (102) Pulse Ox 96 96 96 O2 Delivery Room Air Room Air Room Air 03/09/19 07:00 Pulse 75 03/09/19 00:00 Intake Total 300 ml Balance 300 ml Capillary Refill : Less Than 3 Seconds Constitutional: AAO x 3, well-developed, well-nourished HEENT: EOMI, hearing is well preserved; No xanthelasmas are seen Neck: carotid pulses are 2 + bilaterally, with good upstrokes Respiratory: No accessory muscle use; other (good bilateral air entry) Cardiovascular: regular rate-rhythm, S1 and S2, systolic murmur (faint MELVA at card base) Gastrointestinal: No tender, No guarding, No rebound; audible bowel sounds Extremities: No clubbing, No cyanosis, No significant edema (moderately severe, bilateral, pitting and nonpitting leg swelling) Neurologic/Psychiatric: oriented x 3, other (moves all limbs equally) Skin: No rash, No ulcerations Data Review Labs Laboratory Tests 03/08/19 18:54: White Blood Count 7.3, Red Blood Count 3.84L, Hemoglobin 11.6, Hematocrit 37, Mean Corpuscular Volume 96, Mean Corpuscular Hemoglobin 30, Mean Corpuscular Hemoglobin Concent 32, Red Cell Distribution Width 13.9, Platelet Count 181, M ju Platelet Volume 10.6H, Neutrophils (%) (Auto) 65, Lymphocytes (%) (Auto) 25, Monocytes (%) (Auto) 7, Eosinophils (%) (Auto) 3, Basophils (%) (Auto) 0, Neutrophils # (Auto) 4.7, Lymphocytes # (Auto) 1.8, Monocytes # (Auto) 0.5, Eosinophils # (Auto) 0.2, Basophils # (Auto) 0.0, Prothrombin Time 13.1, INR Comment 1.0, Activated Partial Thromboplast Time 29, Sodium Level 135, Potassium Level 4.2, Chloride Level 102, Carbon Dioxide Level 20L, Anion Gap 13, Blood Ure a Nitrogen 16, Creatinine 1.66H, Estimat Glomerular Filtration Rate 32, BUN/Cre atinine Ratio 10, Glucose Level 238H, Calcium Level 9.5, Corrected Calcium 9.1, Magnesium Level 1.9, Total Bilirubin 0.4, Aspartate Amino Transf (AST/SGOT) 17, Alanine Aminotransferase (ALT/SGPT) 27, Alkaline Phosphatase 87, Total Creatine Kinase 80, Creatine Kinase MB 1.0, Myoglobin 40.2, Troponin I < 0.028, B-Type Natriuretic Peptide 21.7, Total Protein 7.5, Albumin 4.5, Amylase Level 46, Lipase 44 03/08/19 19:45: Urine Color YELLOW, Urine Clarity CLEAR, Urine pH 6, Urine Specific [place] 1.005L, Urine Protein NEGATIVE, Urine Glucose (UA) 1+H, Urine Ketones NEGATIVE, Urine Nitrite NEGATIVE, Urine Bilirubin NEGATIVE, Urine Urobilinogen NORMAL, Urine Leukocyte Esterase 1+H, Urine RBC (Auto) NEGATIVE, Urine RBC NONE, Urine WBC 5-10H, Urine Squamous Epithelial Cells 0-2, Urine Crystals NONE, Urine Bacteria FEWH, Urine Casts NONE, Urine Mucus NEGATIVE, Urine Culture Indicated YES 03/09/19 02:21: White Blood Count 6.3, Red Blood Count 3.69L, Hemoglobin 11.3L, Hematocrit 35, Mean Corpuscular Volume 95, Mean Corpuscular Hemoglobin 31, Mean Corpuscular Hemoglobin Concent 32, Red Cell Distribution Width 13.9, Platelet Count 165, Mean Platelet Volume 11.0H, Neutrophils (%) (Auto) 60, Lymphocytes (%) (Auto) 30, Monocytes (%) (Auto) 7, Eosinophils (%) (Auto) 3, Basophils (%) (Auto) 0, Neutrophils # (Auto) 3.7, Lymphocytes # (Auto) 1.9, Monocytes # (Auto) 0.5, Eosinophils # (Auto) 0.2, Basophils # (Auto) 0.0, Sodium Level 136, Potassium Level 4.1, Chloride Level 105, Carbon Dioxide Level 18L, Anion Gap 13, Blood Urea Nitrogen 23H, Creatinine 1.54H, Estimat Glomerular Filtration Rate 35, BUN/ Creatinine Ratio 15, Glucose Level 187H, Calcium Level 9.2, Corrected Calcium 9 .2, Total Bilirubin 0.3, Aspartate Amino Transf (AST/SGOT) 19, Alanine Aminotransferase (ALT/SGPT) 27, Alkaline Phosphatase 73, Total Creatine Kinase 53, Myoglobin 42.1, Troponin I < 0.028, Total Protein 6.9, Albumin 4.0, Triglycerides Level 425H, Cholesterol Level 175, LDL Cholesterol Direct 109, VLDL Cholesterol 85H, HDL Cholesterol 30L 03/09/19 02:31: Prothrombin Time 13.5, INR Comment 1.0, Activated Partial Thromboplast Time 38H Laboratory Tests 03/08/19 18:54 03/09/19 02:21 A/P-Cardiology Assessment/Admission Diagnosis Nonspecific chest pain w/o any evidence of ACS CAD. Card cath of 02/08/18 (Dr Smith): mild coronary artery disease non obstructive disease 40 percent ostial LAD otherwise no significant obstructive disease, normal left ventricular end-diastolic pressure. MPI of 08/20/18 (Dr Smith): no ischemia or infarction, LVEF 65% PAD. 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 Peripheral angio of 02/08/18 (Dr Smith): patent abdominal aortic stent, patent right renal artery stent with mild ostial stenosis, occluded left renal artery CKD-4 Hypertension Hyperlipidemia Quit smoking in or around 2009 COPD Obesity, BMI 49 Discussion and Recomendations * Complex management due to multiple comorbidities * Risk factor modification, including effort at wgt loss, reviewed and discussed * Resume previous CV meds: ASA 81 daily, Toprol XL 200, amlodipine 10 daily, lisinopril 20 daily, HCTZ 12.5 daily, atorvastatin 10 mg daily * Ok for d/c from cardiac standpoint. F/u with Dr Smith this week Clinical Quality Measures AMI/AHF: ASA po Prior to arrival: No DVT/VTE Risk/Contraindication: Risk Factor Score Per Nursin RFS Level Per Nursing on Admit: 3=High MARY CORBETT MD FACP FAC CCDS Mar 09, 2019 09:59 POS
[2019-03-09] MEDS ORDERED: lisINopril 20 MG (PRINIVIL) TABLET PO ONE (10:30)
[2019-03-09] MEDS ORDERED: HYDROCHLOROTHIAZIDE 12.5 MG (HCTZ) CAP PO ONE (10:30)
[2019-03-09] MEDS ORDERED: meTOprolol SUCCINATE 100 MG (TOPROL XL) TAB PO ONE (10:30)
[2019-03-09 12:00] VITALS: BP 170/80
--- NOTE | 2019-03-09 13:39 | Short Stay Summary-Hospitalist ---
History of Present Illness HPI/Chief Complaint Chief complaint: Chest pain with hjh-ga-ddoxgoa hypertension History of present illness: This is a 58-year-old white female with a past medical history of malignant hypertension and chronic renal disease with COPD and diabetes who presents with chest pain and xzp-nq-fijpuyx hypertension. Cardiology was consulted. Patient did have a cardiac catheterization one year ago by Dr. Smith and was assessed to have no obstructing cardiac disease. Patient now is much better having no chest pain blood pressure is much better controlled and she is ready for discharge with close follow-up with Dr. Smith. Primary care provider Katey Pickering has been managing the foot pain that appears to be related to edema and neuropathy. Source: patient, family, RN/MD, old records Exam Limitations: no limitations Date Seen 03/09/19 Time Seen by a Provider: 12:00 Attending Physician Madiha Oliva DO PCP Emma Moreno DO Referring Physician Date of Admission Mar 08, 2019 at 20:05 Home Medications & Allergies Home Medications Reviewed patient Home Medication Reconciliation performed by pharmacy medication reconciliations radiation control technician and/or nursing. Patients Allergies have been reviewed. Allergies Allergies Coded Allergies NSAIDS (Non-Steroidal Anti-Inflamma (Verified Allergy, Unknown, 11/11/12) Sulfa (Sulfonamide Antibiotics) (Verified Allergy, Unknown, 11/11/12) niacin (Verified Allergy, Unknown, 09/19/11) Uncoded Allergies IV CONTRAST ( Allergy, Unknown, 11/11/12) Past Mhobhpu-Qrmpyv-Mmrovy Hx Past Med/Social Hx: Reviewed Nursing Past Med/Soc Hx, Reviewed and Corrections made Patient Social History Marrital Status: single Employed/Student: unemployed Alcohol Use: Rarely Uses Alcohol Beverage of Choice: Wine Recreational Drug Use: No Smoking Status: Former Smoker Former Smoker, Quit: Feb 08, 2011 Type Used: Cigarettes Recent Foreign Travel: No Contact w/other who traveled: No Recent Hopitalizations: No Recent Infectious Disease Expo: No Immunizations Up To Date Tetanus Booster (TDap): Less than 5yrs Date of Pneumonia Vaccine: Feb 04, 2017 Date of Influenza Vaccine: Feb 04, 2019 Seasonal Allergies Seasonal Allergies: No Past Medical History Surgeries: Adenoidectomy, Cardiac, Ear Surgery, Tonsillectomy, Vascular Surgery Cardiac: Aneurysm, Coronary Artery Disease, High Cholesterol, Hypertension, Peripheral Vascular Neurological: Neuropathy : No Reproductive: Yes Sexually Transmitted Disease: Yes Menopausal (MENOPAUSE AT AGE 37) Genitourinary: Renal Failure, UTI-Chronic Gastrointestinal: Gastroesophageal Reflux Musculoskeletal: Arthritis, Fibromyalgia, Chronic Back Pain, Gout Endocrine: Diabetes, Non-Insulin dep HEENT: Chronic Ear Infection, Glaucoma Loss of Vision: Left History of Blood Disorders: Yes (ANEMIA) Adverse Reaction to Blood Cabrera: No Family History Patient reports no known family medical history. No Pertinent Family Hx Review of Systems Constitutional: see HPI Respiratory: dyspnea on exertion, short of breath Cardiovascular: chest pain Physical Exam Physical Exam Vital Signs Vital Signs - First Documented Capillary Refill : Less Than 3 Seconds Height, Weight, BMI Height: 5'5.00" Weight: 285lbs. 3.0oz. 129.705016lq; 48.99 BMI Method:Stated General Appearance: No Apparent Distress, WD/WN, Anxious, Chronically ill, Obese (MORBIDLY) HEENT: Other (ONLY A FEW LOWER TEETH REMAINING. ) Neck: Full Range of Motion, Normal Inspection, Non Tender, Supple; No Carotid Bruit, No JVD Respiratory: Chest Non Tender, Lungs Clear, Normal Breath Sounds, No Accessory Muscle Use, No Respiratory Distress, Decreased Breath Sounds, Other (MID AND UPPER STERNAL TENDERNESS) Cardiovascular: Regular Rate, Rhythm, No JVD, No Murmur Gastrointestinal: Non Tender, Soft Extremity: Normal Capillary Refill, Normal Range of Motion, No Calf Tenderness, Pedal Edema (1+ ON LEFT, 2+ ON RIGHT, EQUIVOCAL ANGELIA'S ON RIGHT--CAUSES DISCOMFORT MOSTLY AROUND ANKLE. 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 Short Stay Diagnosis Discharge Diagnosis-Short Stay Admission Diagnosis Chest pain Recent cardiac catheterization last year showing no obstructive coronary disease Hypertension [id number] Diabetes mellitus Abnormal UA covered with Rocephin no indication for oral antibiotics Chronic foot pain related to edema and neuropathy Chronic renal insufficiency Former smoker Final Discharge Diagnosis Chest pain Recent cardiac catheterization last year showing no obstructive coronary disease Hypertension [id number]-ojwurec Diabetes mellitus Abnormal UA covered with Rocephin no indication for oral antibiotics Chronic foot pain related to edema and neuropathy Chronic renal insufficiency Former smoker Conclusion Plan DC home Dr Smith this week Monitor BP Diagnosis/Problems Diagnosis/Problems (1) Chest pain Status: Acute (2) Uncontrolled hypertension Status: Acute (3) Chronic renal failure Status: Acute Clinical Quality Measures AMI/AHF: ASA po Prior to arrival: No DVT/VTE Risk/Contraindication: Risk Factor Score Per Nursin RFS Level Per Nursing on Admit: 3=High MADIHA OLIVA DO Mar 09, 2019 13:39 POS
[2019-03-09] MEDS ORDERED: cefTRIAXone 1,000 MG/SWFI 10 ML IV PUSH IV SCH ×2 (21:00)
[2019-03-10] MEDS ORDERED: lisINopril 20 MG (PRINIVIL) TABLET PO SCH (09:00)
[2019-03-10] MEDS ORDERED: HYDROCHLOROTHIAZIDE 12.5 MG (HCTZ) CAP PO SCH (09:00)
[2019-03-10] MEDS ORDERED: meTOprolol SUCCINATE 100 MG (TOPROL XL) TAB PO SCH (09:00)
--- OUTSIDE RECORDS SUMMARY | 2019-04-01 02:12 | XMS REPORT ---
Author Author PAVAN Pulido POS Organization [facility] SP Address [address] [place] [address] SP Care Team Providers Care Family Assessment Worker Name Role Phone POS PAVAN Pulido Unavailable SP PROBLEMS Type Condition ICD9-CM Code EBP32-IG Code Onset Dates Condition S tatus SNOMED POS Problem Peripheral vascular disease I73.9 Ac tive [id number] POS Problem Urinary, incontinence, stress female N39.3 Active 02475795 SP Problem Chronic kidney disease, unspecified N18.9 Active 394659387 SP Problem Dysphagia, unspecified R13.10 Active 72060223 SP Problem Anemia of chronic disease D63.8 Acti ve [id number] SP Problem Cervicalgia M54.2 Active [id number] 91914 SP Problem Essential hypertension I10 Active 62191160 SP Problem 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 117003186 SP Problem Abdominal aortic aneurysm (AAA) without rupture I7 1.4 Active SP Problem Seasonal allergic rhinitis, unspecified allergic rhinitis trigger SP Active 792247706 SP Problem Prediabetes R73.03 Active 98563441 2 SP Problem Mixed hyperlipidemia E78.2 Active 623588137 SP Problem Stenosis of right renal artery I70.1 Active [id number] SP Problem Chronic obstructive pulmonary disease, unspecified COPD ty pe J44.9 SP 90544154 SP Problem Gastroesophageal reflux disease without esophagitis K21.9 Active SP Problem Hepatic steatosis K76.0 Active 19 4688822 SP Problem Renal artery stenosis I70.1 Active 449117469 SP Problem PVD (peripheral vascular disease) I73.9 Active 817308799 SP Problem Arthritis of knee M17.10 Active 37 2656293 SP Problem Other chronic pain G89.29 Active 8 9234814 SP ALLERGIES No Information ENCOUNTERS Encounter Location Date Diagnosis POS [facility] [address] [facility] [id number] [address] [place] [phone] SP Feb, SP [facility] [address] [facility] [id number] [address] [place] [address] SP Dec, Peripheral edema R60.9 ; Mor bid obesity E66.01 ; Essential SP I10 and Chronic kidney disease, unspecified N18.9 [facility] [address] [facility] [id number] [address] [place] [address] SP Oct, Cellulitis of right upper ex tremity L03.113 and Morbid obesity SP [facility] ARM [address] [place] [address] September, Dysuria R30.0 SP Right forearm cellulitis L03.113 [place] [address] [facility] [id number] [address] [place] [address] SP Jul, Contact dermatitis and other eczema, due to unspecified cause SP ; Morbid obesity E66.01 ; Essential hypertension I10 ; Chronic obstructive pulmonary disease, unspecified COPD type J44.9 ; Chronic kidney disease, unspecified N18.9 and Mixed hyperlipidemia E78.2 [facility] [address] [facility] [id number] [address] [place] [address] SP Jul, Skin infection L08.9 and Mor bid obesity E66.01 SP [facility] [place] [address] [address] [place] [id number] [address] [place] [address] SP Jun, Cellulitis of right arm L03. 113 and BMI 45.0-49.9, adult Z68.42 SP [place] [address] [facility] [id number] [address] [place] [address] SP May, SP [place] [address] [facility] [id number] [address] [place] [address] SP May, Chronic obstructive pulmonar y disease, unspecified COPD type SP ; Viral upper respiratory tract infection J06.9 and BMI 45.0-49.9, adult Z68.42 [place] [address] [facility] [id number] [address] [place] [address] SP Mar, BMI 45.0-49.9, adult Z68.42 ; Chronic urticaria L50.8 and Skin SP L08.9 [place] [address] [facility] [id number] [address] [place] [address] SP Mar, Dermatitis L30.9 and BMI 45. 0-49.9, adult Z68.42 SP [place] [address] [facility] [id number] [address] [place] [address] SP Feb, Cellulitis of right upper ex tremity L03.113 and BMI 45.0-49.9, SP Z68.42 [place] [address] [facility] [id number] [place] [address] SP Feb, Cellulitis of right arm L03. 113 and Status post cardiac SP Z98.890 [place] [address] [facility] [id number] [place] [phone] SP Feb, SP [place] [address] [address] [place] [id number] [place] [address] SP Feb, Chronic obstructive pulmonar y disease, unspecified COPD type SP ; Essential hypertension I10 ; Encounter for immunization Z23 ; Mixed hyperlipidemia E78.2 and BMI 45.0-49.9, adult Z68.42 [place] [address] [address] [place] [id number] [place] [address] SP Feb, Dysuria R30.0 ; Acute cystit is without hematuria N30.00 and BMI SP49.9, adult Z68.42 [place] [address] [address] [place] [id number] [address] [place] [address] SP Dec, SP [place] [address] [address] [place] [id number] [place] [address] SP Dec, Essential hypertension I10 ; Chronic kidney disease, unspecified SP ; Mixed hyperlipidemia E78.2 ; Tinea corporis B35.4 ; Right hip pain M25.551 and Acute pain of right knee M25.561 [place] [address] [address] [place] [id number] [address] [place] [address] SP Dec, Herpes zoster without compli cation B02.9 ; Dandruff L21.0 ; SP unspecified type R19.7 and BMI 45.0-49.9, adult Z68.42 [place] [address] [address] SP September, Chronic kidney disease, unsp ecified N18.9 ; Essential SP I10 ; Mixed hyperlipidemia E78.2 and BMI 45.0-49.9, adult Z68.42 [place] [address] [address] SP September, SP [place] [address] [address] SP September, Essential hypertension I10 ; Chronic kidney disease, unspecified SP ; Prediabetes R73.03 ; Low back pain M54.5 ; Other chronic pain G89.29 ; Arthritis of knee M17.10 ; Pure hyperglyceridemia E78.1 ; Anemia of chronic disease D63.8 and BMI 45.0-49.9, adult Z68.42 [place] [address] [address] SP Aug, [address] [address] SP Jul, Abdominal aortic aneurysm (A AA) without rupture I71.4 ; PVD SP vascular disease) I73.9 ; Renal artery stenosis I70.1 and Essential hypertension I10 [address] [address] SP May, Essential hypertension I10 ; Pure hyperglyceridemia E78.1 ; SP aortic aneurysm (AAA) without rupture I71.4 ; Chronic kidney disease, unspecified N18.9 ; Gastroesophageal reflux disease without esophagitis K21.9 ; 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 [id number] [address] [place] [address] SP May, [facility] [address] [facility] [id number] [address] [place] [address] SP Apr, [facility] [address] [facility] [id number] [place] [phone] SP Apr, Cervical radiculopathy M54.1 2 SP [facility] [address] [facility] [id number] [place] [address] SP Apr, Flank pain R10.9 and Acute p yelonephritis N10 [facility] [address] [place] [id number] [address] [place] [phone] SP Apr, [facility] [address] [place] [id number] [address] [place] [address] SP Mar, [facility] [address] [facility] [id number] [address] [place] [address] SP Feb, Pain of right shoulder regio n M25.511 [facility] [address] [place] [id number] [address] [place] [address] SP Feb, History of glaucoma Z86.69 ; Vision changes H53.9 ; Abdominal SP aneurysm (AAA) without rupture I71.4 ; Xerosis of skin L85.3 and Pain in right shoulder M25.511 [facility] [address] [facility] [id number] [address] [place] [address] SP Feb, [facility] [address] 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 ; Stenosis of right renal artery I70.1 ; Anemia of chronic disease D63.8 ; Prediabetes R73.03 ; Pain of right shoulder region M25.511 and Homeless Z59.0 [place] [address] [address] SP Jan, Neck pain M54.2 and Seasonal allergic rhinitis, unspecified SP rhinitis trigger J30.2 [place] [address] [address] SP Dec, SP [place] [address] [address] SP Dec, SP [place] [address] [address] SP Dec, Blood glucose abnormal R73.0 9 ; Essential hypertension I10 ; Pure SPhyperglyceridemia E78.1 ; Chronic kidney disease, unspecified N18.9 ; Gastroesophageal reflux disease without esophagitis K21.9 ; 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 pylori infection A04.8 and Prediabetes R73.03 [facility] IN [facility] [address] [place] [id number] [address] [place] [address] SP Oct, Seasonal allergic rhinitis, unspecified allergic rhinitis SP J30.2 [place] [address] [address] [place] [id number] [address] [place] [address] SP September, Eustachian tube dysfunction, left H69.82 and Candidiasis of SP B37.89 [place] [address] [address] [place] [id number] [address] [place] [address] SP Jul, Blood glucose abnormal R73.0 9 ; Essential hypertension I10 ; Pure SPhyperglyceridemia E78.1 ; Chronic kidney disease, unspecified N18.9 ; Gastroesophageal reflux disease without esophagitis K21.9 ; 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 ; Abdominal aortic aneurysm (AAA) without rupture I71.4 ; Stenosis of right renal artery I70.1 ; Anemia of chronic disease D63.8 and Acute non-recurrent maxillary sinusitis J01.00 [place] [address] [address] SP Jun, Acute non-recurrent maxillar y sinusitis J01.00 ; Acute mucoid SP media of left ear H65.112 ; Nausea R11.0 and Fever and chills R50.9 [place] [address] [address] SP May, Acute right flank pain R10.9 SP [place] [address] [address] SP Apr, Acute nasopharyngitis J00 ; Pure hyperglyceridemia E78.1 and SP kidney disease, unspecified N18.9 [place] [address] [address] SP Apr, SP [place] [address] [address] SP Apr, Blood glucose abnormal R73.0 9 ; Essential hypertension I10 ; Pure SPhyperglyceridemia E78.1 ; Chronic kidney disease, unspecified N18.9 ; Gastroesophageal reflux disease without esophagitis K21.9 ; 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 ; Abdominal aortic aneurysm (AAA) without rupture I71.4 ; Stenosis of right renal artery I70.1 ; RUQ pain R10.11 and Anemia of chronic disease D63.8 [place] [address] [address] SP Mar, Blood glucose abnormal R73.0 9 SP [place] [address] [address] SP Mar, Cellulitis of right lower le g L03.115 SP [facility] [address] [place] [id number] [address] [place] [address] SP Feb, SP [place] [address] [address] SP Feb, Dysuria R30.0 and Upper resp iratory tract infection, unspecified SP J06.9 [place] [address] [address] SP Jan, SP [place] [address] [address] SP Jan, SP [place] [address] [address] SP Dec, SP [place] [address] [address] SP Dec, Anemia of chronic disease D6 3.8 ; Essential hypertension I10 ; SP hyperglyceridemia E78.1 ; Chronic kidney disease, unspecified N18.9 ; Gastroesophageal reflux disease without esophagitis K21.9 ; 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 and Pain in right knee M25.561 [place] [address] [address] SP Dec, Left shoulder strain, subseq uent encounter S46.912D ; Urinary SP R35.0 ; Lung nodule, solitary R91.1 ; Essential hypertension I10 and Acute cystitis without hematuria N30.00 [place] [address] [address] SP Nov, Left-sided chest wall pain R 07.89 and Abnormal chest xray R93.8 SP [place] [address] [address] [place] [id number] [address] [place] [address] SP Nov, Pain of right lower extremit y M79.604 ; Swelling of right lower SP M79.89 ; Diarrhea, unspecified R19.7 ; Nausea with vomiting, unspecified R11.2 ; Left-sided chest wall pain R07.89 ; Chronic kidney disease, unspecified N18.9 ; Gastroesophageal reflux disease without esophagitis K21.9 and Other seasonal allergic rhinitis J30.2 [place] [address] [address] SP September, Essential hypertension I10 ; Chronic kidney disease, unspecified SP ; Anemia of chronic disease D63.8 ; Pure hyperglyceridemia E78.1 ; Peripheral vascular disease I73.9 ; Abnormal glucose R73.09 ; 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 [id number] [address] [place] [address] SP Aug, Abdominal pain R10.9 and Con stipation K59.00 SP [place] [address] [address] [place] [id number] [address] [place] [address] SP Jul, Injury of toe on right foot S99.921A SP [place] [address] [address] [place] [id number] [address] [place] [address] SP Jul, SP [place] [address] [place] [id number] [place] [address] SP Jul, Essential hypertension I10 ; Chronic kidney disease, unspecified SP ; Anemia of chronic disease D63.8 ; Pure hyperglyceridemia E78.1 ; Peripheral vascular disease I73.9 ; Abnormal glucose R73.09 ; 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 [id number] [address] [place] [address] SP May, URI (upper respiratory infec tion) J06.9 SP [place] [address] 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 ; Gastroesophageal reflux disease without esophagitis K21.9 and Cough R05 [place] [address] [place] [id number] [place] [address] SP Mar, Flank pain R10.9 and URI (up per respiratory infection) J06.9 SP [place] [address] [place] [id number] [place] [address] SP Mar, Right-sided low back pain wi thout sciatica M54.5 and Hematuria, SP R31.9 [place] [address] [address] SP Mar, Hypopigmentation L81.9 and H yperpigmentation L81.9 SP [place] [address] [address] SP Mar, SP [place] [address] [address] SP Mar, Acute cystitis with hematuri a N30.01 SP [place] [address] [address] SP Mar, SP [place] [address] [place] [id number] [place] [address] SP Feb, Furuncle L02.92 ; Hypopigmen tation L81.9 ; Hyperpigmentation SP ; Urinary frequency R35.0 ; Screening for malignant neoplasm of cervix Z12.4 ; Vaginal discharge N89.8 ; Urinary, incontinence, stress female N39.3 and Vaginal irritation N89.8 [place] [address] [place] [id number] [address] [place] [address] SP Jan, Muscle spasm 728.85 ; Unspec ified peripheral vascular disease SP ; Benign essential hypertension 401.1 ; Chronic renal insufficiency 585.9 ; Chronic constipation 564.00 ; GERD (gastroesophageal reflux disease) 530.81 ; Hyperlipidemia 272.4 and Chronic leg pain 729.5 [place] [address] [address] SP Jan, Sinusitis 473.9 SP [place] [address] [address] SP Dec, SP [place] [address] [address] SP Dec, Acute bronchitis 466.0 SP [place] [address] [address] SP Dec, Acute bronchitis 466.0 SP [place] [address] [address] SP Dec, Unspecified episodic mood di sorder 296.90 SP [place] [address] [address] SP Dec, Visit for suture removal V58 .32 SP [place] [address] [address] SP Nov, Allergic rhinitis 477.9 and Onychomycosis 110.1 SP [place] [address] [address] SP Oct, Muscle spasm 728.85 ; Benign essential hypertension 401.1 ; SP renal insufficiency 585.9 ; Chronic constipation 564.00 ; GERD (gastroesophageal reflux disease) 530.81 and Hyperlipidemia 272.4 [place] [address] [address] SP Oct, Otalgia of left ear 388.70 SP [place] [address] [address] SP Oct, Unspecified episodic mood di sorder 296.90 SP [facility] [address] [facility] [id number] [address] [place] [address] SP September, Unspecified episodic mood di sorder 296.90 SP [facility] [address] [facility] [id number] [address] [place] [address] SP September, Unspecified episodic mood di sorder 296.90 SP [facility] [address] [facility] [id number] [place] [address] SP September, Urinary frequency 788.41 and Constipation 564.00 SP [facility] [address] [facility] [id number] [address] [place] [address] SP Aug, SP [facility] [address] [facility] [id number] [address] [place] [address] SP Aug, SP [facility] [address] [facility] [id number] [address] [place] [address] SP Jul, SP [facility] [address] [facility] [id number] [address] [place] [address] SP Jul, SP [facility] [address] [facility] [id number] [address] [place] [address] SP Jul, SP [facility] [address] [facility] [id number] [address] [place] [address] SP Jul, SP [facility] [address] [facility] [id number] [address] [place] [address] SP Jul, SP [facility] [address] [facility] [id number] [address] [place] [address] SP Jul, SP [facility] [address] [facility] [id number] [address] [place] [address] SP Jul, SP [facility] [address] [facility] [id number] [address] [place] [address] SP Jul, SP [facility] [address] [facility] [id number] [address] [place] [address] SP Jul, SP [facility] [address] [id number] [address] [place] [address], [place] [address] SP Jul, SP [facility] [address] [id number] [address] [place] [address], [place] [address] SP Jun, SP [facility] [address] [id number] [address] [place] [address], [place] [address] SP Jun, SP [facility] [address] [id number] [address] [place] [address], [place] [address] SP May, SP [facility] [address] [id number] [address] [place] [address], [place] [address] SP May, SP [facility] [address] [id number] [address] [place] [address], [place] [address] SP May, SP [facility] [address] [id number] [address] [place] [address], [place] [address] SP May, SP [facility] [address] [id number] [address] [place] [address], [place] [address] SP May, SP [facility] [address] [id number] [address] [place] [address], [place] [address] SP May, SP [facility] [address] [id number] [address] [place] [address], [place] [address] SP May, SP [facility] [address] [id number] [address] [place] [address], [place] [address] SP May, SP [facility] [address] [id number] [address] [place] [address], [place] [address] SP May, SP [facility] [address] [id number] [address] [place] [address], [place] [address] SP May, SP [facility] [address] [id number] [address] [place] [address], [place] [address] SP May, SP [facility] [address] [id number] [address] [place] [address], [place] [address] SP May, SP [facility] [address] [id number] [address] [place] [address], [place] [address] SP May, SP [facility] [address] [id number] [address] [place] [address], [place] [address] SP Feb, 2013 SP [facility] [address] [id number] [address] [place] [address], [place] [address] SP Feb, 2013 SP [facility] [address] [id number] [address] [place] [address], [place] [address] SP 20 Jan, 2013 SP [facility] [address] [id number] [address] [place] [address], [place] [address] SP 20 Jan, 2013 SP [facility] [address] [id number] [address] [place] [address], [place] [address] SP 18 Jan, 2013 SP [facility] [address] [id number] [address] [place] [address], [place] [address] SP 18 Jan, 2013 SP [facility] [address] [id number] [address] [place] [address], [place] [address] SP 12 Jan, 2013 SP [facility] [address] [id number] [address] [place] [address], [place] [address] SP 12 Jan, 2013 SP [facility] [address] [id number] [address] [place] [address], [place] [address] SP 12 Jan, 2013 SP [facility] [address] [id number] [address] [place] [address], [place] [address] SP 12 Jan, 2013 SP [facility] [address] [id number] [address] [place] [address], [place] [address] SP 11 Jan, 2013 SP [facility] [address] [id number] [address] [place] [address], [place] [address] SP 11 Jan, 2013 SP [facility] [address] [id number] [address] [place] [address], [place] [address] SP 10 Jan, 2013 SP [facility] [address] [id number] [address] [place] [address], [place] [address] SP Jan, SP [facility] [address] [id number] [address] [place] [address], [place] [address] SP Oct, SP [facility] [address] [id number] [address] [place] [address], [place] [address] SP Oct, SP [facility] [address] [id number] [address] [place] [address], [place] [address] SP Oct, SP [facility] [address] [id number] [address] [place] [address], [place] [address] SP Oct, SP [facility] [address] [id number] [address] [place] [address], [place] [address] SP Jun, SP [facility] [address] [id number] [address] [place] [address], [place] [address] SP Jun, SP [facility] [address] [id number] [address] [place] [address], [place] [address] SP Jun, SP [facility] [address] [id number] [address] [place] [address], [place] [address] SP Jun, SP [facility] [address] [facility] [id number] [address] [place] [address], [place] [address] SP Apr, SP [facility] [address] [id number] [address] [place] [address], [place] [address] SP Apr, SP [facility] [address] [id number] [address] [place] [address] SP Feb, SP [facility] [address] [id number] [address] [place] [address], [place] [address] SP Feb, SP [facility] [address] [facility] [id number] [address] [place] [address], [place] [address] SP Dec, SP [facility] [address] [id number] [address] [place] [address], [place] [address] SP Dec, SP [facility] [address] [id number] [address] [place] [address], [place] [address] SP Nov, SP [facility] [address] [id number] [address] [place] [address], [place] [address] SP Nov, SP [facility] [address] [id number] [address] [place] [address], [place] [address] SP Nov, SP [facility] [address] [id number] [address] [place] [address], [place] [address] SP Oct, SP [facility] [address] [id number] [address] [place] [address], [place] [address] SP September, SP [facility] [address] [id number] [address] [place] [address], [place] [address] SP September, SP [facility] [address] [id number] [address] [place] [address], [place] [address] SP Aug, SP [facility] [address] [id number] [address] [place] [address], [place] [address] SP Aug, SP [facility] [address] [id number] [address] [place] [address], [place] [address] SP Aug, SP [facility] [address] [id number] [address] [place] [address], [place] [address] SP Aug, SP [facility] [address] [id number] [address] [place] [address], [place] [address] SP Aug, SP [facility] [address] [id number] [address] [place] [address], [place] [address] SP Aug, SP [facility] [address] [id number] [address] [place] [address], [place] [address] SP Jul, SP [facility] [address] [id number] [address] [place] [address], [place] [address] SP Jul, SP [facility] [address] [id number] [address] [place] [address], [place] [address] SP 21 Jul, 2012 SP [facility] [address] [id number] [address] [place] [address], [place] [address] SP 15 Jul, 2012 SP [facility] [address] [id number] [address] [place] [address], [place] [address] SP 11 Jul, 2012 SP [facility] [address] [id number] [address] [place] [address], [place] [address] SP Jul, SP [facility] [address] [id number] [address] [place] [address], [place] [address] SP Jun, SP [facility] [address] [id number] [address] [place] [address], [place] [address] SP Jun, SP [facility] [address] [id number] [address] [place] [address], [place] [address] SP May, SP [facility] [address] [id number] [address] [place] [address], [place] [address] SP May, SP [facility] [address] [id number] [address] [place] [address], [place] [address] SP Apr, SP [facility] [address] [id number] [address] [place] [address], [place] [address] SP Apr, SP [facility] [address] [id number] [address] [place] [address], [place] [address] SP Apr, SP [facility] [address] [id number] [address] [place] [address], [place] [address] SP Apr, SP [facility] [address] [id number] [address] [place] [address], [place] [address] SP Apr, SP [facility] [address] [id number] [address] [place] [address], [place] [address] SP Mar, SP [facility] [address] [id number] [address] [place] [address], [place] [address] SP Mar, SP [facility] [address] [id number] [address] [place] [address], [place] [address] SP Mar, SP [facility] [address] [id number] [address] [place] [address], [place] [address] SP Mar, SP [facility] [address] [id number] [address] [place] [address], [place] [address] SP Mar, SP [facility] [address] [id number] [address] [place] [address], [place] [address] SP Mar, SP [facility] [address] [id number] [address] [place] [address], [place] [address] SP Mar, SP [facility] [address] [id number] [address] [place] [address], [place] [address] SP Feb, SP [facility] [address] [id number] [address] [place] [address], [place] [address] SP Feb, SP [facility] [address] [id number] [address] [place] [address], [place] [address] SP Feb, SP [facility] [address] [id number] [address] [place] [address], [place] [address] SP Feb, SP [facility] [address] [id number] [address] [place] [address], [place] [address] SP Dec, SP [facility] [address] [id number] [address] [place] [address], [place] [address] SP Nov, SP [facility] [address] [id number] [address] [place] [address], [place] [address] SP Nov, SP [facility] [address] [id number] [address] [place] [address], [place] [address] SP Oct, SP [facility] [address] [id number] [address] [place] [address], [place] [address] SP Oct, SP [facility] [address] [id number] [address] [place] [address], [place] [address] SP Oct, SP [facility] [address] [id number] [address] [place] [address], [place] [address] SP Oct, SP [facility] [address] [id number] [address] [place] [address], [place] [address] SP Oct, SP [facility] [address] [id number] [address] [place] [address], [place] [address] SP Oct, SP [facility] [address] [id number] [address] [place] [address], [place] [address] SP Oct, SP [facility] [address] [id number] [address] [place] [address], [place] [address] SP Aug, SP [facility] [address] [id number] [address] [place] [address], [place] [address] SP Jul, SP [facility] [address] [id number] [address] [place] [address], [place] [address] SP Jul, SP [facility] [address] [id number] [address] [place] [address], [place] [address] SP Jul, SP [facility] [address] [id number] [address] [place] [address], [place] [address] SP Jul, SP [facility] [address] [id number] [address] [place] [address], [place] [address] SP Jul, SP [facility] [address] [id number] [address] [place] [address], [place] [address] SP Jul, SP [facility] [address] [id number] [address] [place] [address], [place] [address] SP Jul, SP [facility] [address] [id number] [address] [place] [address], [place] [address] SP Jun, SP [facility] [address] [id number] [address] [place] [address], [place] [address] SP May, SP [facility] [address] [id number] [address] [place] [address], [place] [address] SP May, SP [facility] [address] [id number] [address] [place] [address], [place] [address] SP May, SP [facility] [address] [id number] [address] [place] [address], [place] [address] SP Apr, SP [facility] [address] [id number] [address] [place] [address], [place] [address] SP Apr, SP [facility] [address] [id number] [address] [place] [address], [place] [address] SP Apr, SP [facility] [address] [id number] [address] [place] [address], [place] [address] SP Apr, SP [facility] [address] [id number] [address] [place] [address], [place] [address] SP Apr, SP [facility] [address] [id number] [address] [place] [address], [place] [address] SP Apr, SP [facility] [address] [id number] [address] [place] [address], [place] [address] SP Mar, SP [facility] [address] [id number] [address] [place] [address], [place] [address] SP Mar, SP [facility] [address] [id number] [address] [place] [address], [place] [address] SP Mar, SP [facility] [address] [id number] [address] [place] [address], [place] [address] SP Mar, SP [facility] [address] [id number] [address] [place] [address], [place] [address] SP Mar, SP [facility] [address] [id number] [address] [place] [address], [place] [address] SP Mar, SP [facility] [address] [id number] [address] [place] [address], [place] [address] SP Mar, SP [facility] [address] [id number] [address] [place] [address] SP Dec, SP [facility] [address] [id number] [address] [place] [address] SP Aug, SP [facility] [address] [facility] [id number] [address] [place] [address] SP Apr, SP [facility] [address] [id number] [address] [place] [address] SP Mar, SP [facility] [address] [id number] [address] [place] [address] SP Mar, SP [facility] [address] [facility] [id number] [address] [place] [address] SP Mar, SP [facility] [address] [facility] [id number] [address] [place] [address] SP Mar, SP [facility] [address] [id number] [address] [place] [address] SP September, SP [facility] [address] [id number] [address] [place] [address] SP Mar, SP [facility] [address] [id number] [address] [place] [address] SP Feb, SP [facility] [address] [facility] [id number] [address] [place] [address] SP Oct, SP [facility] [address] [id number] [address] [place] [address] SP September, SP [facility] [address] [id number] [address] [place] [address] SP Apr, SP [facility] [address] [facility] [id number] [address] [place] [address] SP Mar, SP IMMUNIZATIONS No Known Immunizations SOCIAL HISTORY Never Assessed REASON FOR VISIT PLAN OF CARE VITAL SIGNS Height 65 in 2013-10-30 POS Weight 259.6 lbs 2013-10-30 POS Temperature 97.6 degrees Fahrenheit 2013-10-30 POS Heart Rate 72 bpm 2013-10-30 POS Respiratory Rate 16 2013-10-30 POS Blood pressure systolic 130 mmHg 2013-10-30 POS Blood pressure diastolic 88 mmHg 2013-10-30 POS MEDICATIONS Unknown Medications RESULTS No Results PROCEDURES No Known procedures INSTRUCTIONS MEDICATIONS ADMINISTERED No Known Medications MEDICAL (GENERAL) HISTORY Type Description Date POS Medical History coronary artery disease (melinda Smith) SP Medical History 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 SP Medical History hypertension SP Medical History renal artery stenosis SP Medical History hyperlipidemia SP Medical History peripheral vascular disease SP Medical History Dysphagia, unspecified SP Medical History Other dental caries SP Medical History Right Upper Lung Nodule Stable CT 2011 & 2015 SP Medical History Periapical abscess without sinus SP Medical History Periapical abscess without sinus SP Medical History Abnormal chest x-ray SP Medical History Lung nodule, solitary SP Surgical History angioplasty 02/2008 SP Surgical History abdominal aortic aneurysm repair 02/2008 SP Surgical History L renal artery stent (Julieth) 03/2011 SP Surgical History heart cath x2: stents to bilat legs, sto mach, and kidneys SP Surgical History R renal artery stent 2007 SP Surgical History heart cath 02/2018 SP Surgical History Lexiscan-stress test non ischemic 08/2018 SP Hospitalization History surgeries SP Hospitalization History chest pain/ abnormal stress test/ he art cath 02/08/2018 SP Hospitalization History Chest pain/stress test normal August 2018 SP
--- OUTSIDE RECORDS SUMMARY | 2019-04-01 02:13 | XMS REPORT ---
Author Author MORE LOPEZ POS Organization [facility] [place] SP Address [address] [place] [address] SP Care Team Providers Care Internal Auditor Name Role Phone POS MORE LOPEZ Unavailable SP PROBLEMS Type Condition ICD9-CM Code KNQ09-BD Code Onset Dates Condition S tatus SNOMED POS Problem Peripheral vascular disease I73.9 Ac tive [id number] POS Problem Urinary, incontinence, stress female N39.3 Active [id number] SP Problem Chronic kidney disease, unspecified N18.9 Active 714556156 SP Problem Dysphagia, unspecified R13.10 Active 28607611 SP Problem Anemia of chronic disease D63.8 Acti ve 340812375 SP Problem Cervicalgia M54.2 Active 22829460 94914 SP Problem Essential hypertension I10 Active 21589010 SP Problem 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 438970288 SP Problem Abdominal aortic aneurysm (AAA) without rupture I7 1.4 Active SP Problem Seasonal allergic rhinitis, unspecified allergic rhinitis trigger SP Active 550942055 SP Problem Prediabetes R73.03 Active 39338554 2 SP Problem Mixed hyperlipidemia E78.2 Active 712485686 SP Problem Stenosis of right renal artery I70.1 Active [id number] SP Problem Chronic obstructive pulmonary disease, unspecified COPD ty pe J44.9 SP 26352238 SP Problem Gastroesophageal reflux disease without esophagitis K21.9 Active SP Problem Hepatic steatosis K76.0 Active 19 3594378 SP Problem Renal artery stenosis I70.1 Active 246238701 SP Problem PVD (peripheral vascular disease) I73.9 Active 391870594 SP Problem Arthritis of knee M17.10 Active 37 0344709 SP Problem Other chronic pain G89.29 Active 8 8472876 SP ALLERGIES No Information ENCOUNTERS Encounter Location Date Diagnosis POS [facility] [place] [address] [facility] [id number] [address] [address] SP Feb, SP [facility] [place] [address] [facility] [id number] [address] [place] [address] SP Dec, Peripheral edema R60.9 ; Mor bid obesity E66.01 ; Essential SP I10 and Chronic kidney disease, unspecified N18.9 [facility] [address] [facility] [id number] [address] [place] [address] SP Oct, Cellulitis of right upper ex tremity L03.113 and Morbid obesity SP [facility] [address] [place] [address] September, Dysuria R30.0 SP Right forearm cellulitis L03.113 [place] [address] [address] SP Jul, Contact dermatitis and other eczema, due to unspecified cause SP ; Morbid obesity E66.01 ; Essential hypertension I10 ; Chronic obstructive pulmonary disease, unspecified COPD type J44.9 ; Chronic kidney disease, unspecified N18.9 and Mixed hyperlipidemia E78.2 [facility] [address] [place] [id number] [address] [place] [address] SP Jul, Skin infection L08.9 and Mor bid obesity E66.01 SP [facility] [place] [address] [address] [place] [id number] [address] [place] [address] SP Jun, Cellulitis of right arm L03. 113 and BMI 45.0-49.9, adult Z68.42 SP [place] [address] [address] [place] [id number] [address] [place] [address] SP May, SP [place] [address] [place] [id number] [address] [place] [address] SP May, Chronic obstructive pulmonar y disease, unspecified COPD type SP ; Viral upper respiratory tract infection J06.9 and BMI 45.0-49.9, adult Z68.42 [place] [address] [place] [id number] [address] [place] [address] SP Mar, BMI 45.0-49.9, adult Z68.42 ; Chronic urticaria L50.8 and Skin SP L08.9 [place] [address] [facility] [id number] [place] [address] SP Mar, Dermatitis L30.9 and BMI 45. 0-49.9, adult Z68.42 SP [place] [address] [facility] [id number] [address] [place] [address] SP Feb, Cellulitis of right upper ex tremity L03.113 and BMI 45.0-49.9, SP Z68.42 [place] [address] [facility] [id number] [place] [address] SP Feb, Cellulitis of right arm L03. 113 and Status post cardiac SP Z98.890 [place] [address] [place] [id number] [place] [address] SP Feb, SP [place] [address] [place] [id number] [place] [address] SP Feb, Chronic obstructive pulmonar y disease, unspecified COPD type SP ; Essential hypertension I10 ; Encounter for immunization Z23 ; Mixed hyperlipidemia E78.2 and BMI 45.0-49.9, adult Z68.42 [place] [address] [address] SP Feb, Dysuria R30.0 ; Acute cystit is without hematuria N30.00 and BMI SP49.9, adult Z68.42 [place] [address] [address] SP Dec, SP [place] [address] [place] [id number] [place] [address] SP Dec, Essential hypertension I10 ; Chronic kidney disease, unspecified SP ; Mixed hyperlipidemia E78.2 ; Tinea corporis B35.4 ; Right hip pain M25.551 and Acute pain of right knee M25.561 [place] [address] [place] [id number] [place] [address] SP Dec, Herpes zoster without compli cation B02.9 ; Dandruff L21.0 ; SP unspecified type R19.7 and BMI 45.0-49.9, adult Z68.42 [place] [address] [address] SP September, Chronic kidney disease, unsp ecified N18.9 ; Essential SP I10 ; Mixed hyperlipidemia E78.2 and BMI 45.0-49.9, adult Z68.42 [place] [address] [address] SP September, SP [place] [address] [address] SP September, Essential hypertension I10 ; Chronic kidney disease, unspecified SP ; Prediabetes R73.03 ; Low back pain M54.5 ; Other chronic pain G89.29 ; Arthritis of knee M17.10 ; Pure hyperglyceridemia E78.1 ; Anemia of chronic disease D63.8 and BMI 45.0-49.9, adult Z68.42 [place] [address] [address] SP Aug, SP [address] [address] SP Jul, Abdominal aortic aneurysm (A AA) without rupture I71.4 ; PVD SP vascular disease) I73.9 ; Renal artery stenosis I70.1 and Essential hypertension I10 [place] [address] [address] SP May, Essential hypertension I10 ; Pure hyperglyceridemia E78.1 ; SP aortic aneurysm (AAA) without rupture I71.4 ; Chronic kidney disease, unspecified N18.9 ; Gastroesophageal reflux disease without esophagitis K21.9 ; 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 ; Stenosis of right renal artery I70.1 ; Anemia of chronic disease D63.8 and Prediabetes R73.03 [place] [address] [address] SP May, Tinea corporis B35.4 and Vir al URI J06.9 [facility] [address] [facility] [id number] [address] [place] [address] SP May, [facility] [address] [facility] [id number] [address] [place] [address] SP Apr, [facility] [address] [facility] [id number] [place] [address] SP Apr, Cervical radiculopathy M54.1 2 SP [facility] [address] [facility] [id number] [place] [address] SP Apr, Flank pain R10.9 and Acute p yelonephritis N10 [facility] [address] [facility] [id number] [address] [place] [phone] SP Apr, [facility] [address] [place] [id number] [place] [address] SP Mar, [facility] [address] [facility] [id number] [address] [place] [address] SP Feb, Pain of right shoulder regio n M25.511 [facility] [address] [facility] [id number] [address] [place] [address] SP Feb, History of glaucoma Z86.69 ; Vision changes H53.9 ; Abdominal SP aneurysm (AAA) without rupture I71.4 ; Xerosis of skin L85.3 and Pain in right shoulder M25.511 [facility] [place] [address] [facility] [id number] [address] [place] [address] SP Feb, [facility] [address] [facility] [id number] [address] [place] [address] SP Jan, Essential hypertension I10 ; Pure hyperglyceridemia E78.1 ; SP kidney disease, unspecified N18.9 ; Gastroesophageal reflux disease without esophagitis K21.9 ; 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 pylori infection A04.8 and Prediabetes R73.03 [facility] [address] SP Oct, Seasonal allergic rhinitis, unspecified allergic rhinitis SP J30.2 [place] [address] [place] [id number] [address] [place] [address] SP September, Eustachian tube dysfunction, left H69.82 and Candidiasis of SP B37.89 [facility] [place] [address] [place] [id number] [address] [place] [address] SP Jul, Blood glucose abnormal R73.0 9 ; Essential hypertension I10 ; Pure SPhyperglyceridemia E78.1 ; Chronic kidney disease, unspecified N18.9 ; Gastroesophageal reflux disease without esophagitis K21.9 ; 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 ; Abdominal aortic aneurysm (AAA) without rupture I71.4 ; Stenosis of right renal artery I70.1 ; Anemia of chronic disease D63.8 and Acute non-recurrent maxillary sinusitis J01.00 [place] [address] [address] SP Jun, Acute non-recurrent maxillar y sinusitis J01.00 ; Acute mucoid SP media of left ear H65.112 ; Nausea R11.0 and Fever and chills R50.9 [place] [address] [address] SP May, Acute right flank pain R10.9 SP [place] [address] [address] SP Apr, Acute nasopharyngitis J00 ; Pure hyperglyceridemia E78.1 and SP kidney disease, unspecified N18.9 [place] [address] [address] SP Apr, SP [place] [address] [address] SP Apr, Blood glucose abnormal R73.0 9 ; Essential hypertension I10 ; Pure SPhyperglyceridemia E78.1 ; Chronic kidney disease, unspecified N18.9 ; Gastroesophageal reflux disease without esophagitis K21.9 ; 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 ; Abdominal aortic aneurysm (AAA) without rupture I71.4 ; Stenosis of right renal artery I70.1 ; RUQ pain R10.11 and Anemia of chronic disease D63.8 [place] [address] [place] [id number] [address] [place] [address] SP Mar, Blood glucose abnormal R73.0 9 [place] [address] [address] SP Mar, Cellulitis of right lower le g L03.115 SP [facility] [address] [place] [id number] [address] [place] [address] SP Feb, SP [facility] [place] [address] [address] SP Feb, Dysuria R30.0 and Upper resp iratory tract infection, unspecified SP J06.9 [place] [address] [address] SP Jan, SP [place] [address] [address] SP Jan, SP [place] [address] [address] SP Dec, SP [place] [address] [address] SP Dec, Anemia of chronic disease D6 3.8 ; Essential hypertension I10 ; SP hyperglyceridemia E78.1 ; Chronic kidney disease, unspecified N18.9 ; Gastroesophageal reflux disease without esophagitis K21.9 ; 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 and Pain in right knee M25.561 [place] [address] [address] SP Dec, Left shoulder strain, subseq uent encounter S46.912D ; Urinary SP R35.0 ; Lung nodule, solitary R91.1 ; Essential hypertension I10 and Acute cystitis without hematuria N30.00 [place] [address] [address] SP Nov, Left-sided chest wall pain R 07.89 and Abnormal chest xray R93.8 SP [place] [address] [place] [id number] [address] [place] [address] SP Nov, Pain of right lower extremit y M79.604 ; Swelling of right lower SP M79.89 ; Diarrhea, unspecified R19.7 ; Nausea with vomiting, unspecified R11.2 ; Left-sided chest wall pain R07.89 ; Chronic kidney disease, unspecified N18.9 ; Gastroesophageal reflux disease without esophagitis K21.9 and Other seasonal allergic rhinitis J30.2 [place] [address] [address] SP September, Essential hypertension I10 ; Chronic kidney disease, unspecified SP ; Anemia of chronic disease D63.8 ; Pure hyperglyceridemia E78.1 ; Peripheral vascular disease I73.9 ; Abnormal glucose R73.09 ; 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 ; Gastroesophageal reflux disease without esophagitis K21.9 ; Allergic rhinitis J30.9 and Rash R21 [place] [address] [facility] [id number] [address] [place] [address] SP Aug, Abdominal pain R10.9 and Con stipation K59.00 SP [place] [address] [place] [id number] [place] [address] SP Jul, Injury of toe on right foot S99.921A SP [place] [address] [place] [id number] [place] [address] SP Jul, SP [place] [address] [address] SP Jul, Essential hypertension I10 ; Chronic kidney disease, unspecified SP ; Anemia of chronic disease D63.8 ; Pure hyperglyceridemia E78.1 ; Peripheral vascular disease I73.9 ; Abnormal glucose R73.09 ; 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 ; Gastroesophageal reflux disease without esophagitis K21.9 and Allergic rhinitis J30.9 [place] [address] [place] [id number] [address] [place] [address] SP Jun, Low back pain M54.5 SP [place] [address] [place] [id number] [address] [place] [address] SP Jun, SP [place] [address] [place] [id number] [address] [place] [address] SP May, URI (upper respiratory infec tion) J06.9 SP [place] [address] [facility] [id number] [address] [place] [address] SP Apr, Essential hypertension I10 SP [place] [address] [place] [id number] [place] [address] SP Apr, Essential hypertension I10 ; Chronic kidney disease, unspecified SP ; Anemia of chronic disease D63.8 ; Pure hyperglyceridemia E78.1 ; Peripheral vascular disease I73.9 ; Abnormal glucose R73.09 ; URI (upper respiratory infection) J06.9 ; 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 ; Gastroesophageal reflux disease without esophagitis K21.9 and Cough R05 [place] [address] [address] SP Mar, Flank pain R10.9 and URI (up per respiratory infection) J06.9 SP [place] [address] [address] SP Mar, Right-sided low back pain wi thout sciatica M54.5 and Hematuria, SP R31.9 [place] [address] [address] SP Mar, Hypopigmentation L81.9 and H yperpigmentation L81.9 SP [place] [address] [address] SP Mar, SP [place] [address] [address] SP Mar, Acute cystitis with hematuri a N30.01 SP [place] [address] [address] SP Mar, SP [place] [address] [address] SP Feb, Furuncle L02.92 ; Hypopigmen tation L81.9 ; Hyperpigmentation SP ; Urinary frequency R35.0 ; Screening for malignant neoplasm of cervix Z12.4 ; Vaginal discharge N89.8 ; Urinary, incontinence, stress female N39.3 and Vaginal irritation N89.8 [place] [address] [place] [id number] [address] [place] [address] SP Jan, Muscle spasm 728.85 ; Unspec ified peripheral vascular disease SP ; Benign essential hypertension 401.1 ; Chronic renal insufficiency 585.9 ; Chronic constipation 564.00 ; GERD (gastroesophageal reflux disease) 530.81 ; Hyperlipidemia 272.4 and Chronic leg pain 729.5 [place] [address] [address] SP Jan, Sinusitis 473.9 SP [place] [address] [address] SP Dec, SP [place] [address] [address] SP Dec, Acute bronchitis 466.0 SP [place] [address] [address] SP Dec, Acute bronchitis 466.0 SP [place] [address] [address] SP Dec, Unspecified episodic mood di sorder 296.90 SP [place] [address] [address] SP Dec, Visit for suture removal V58 .32 SP [place] [address] [address] SP Nov, Allergic rhinitis 477.9 and Onychomycosis 110.1 SP [place] [address] [address] SP Oct, Muscle spasm 728.85 ; Benign essential hypertension 401.1 ; SP renal insufficiency 585.9 ; Chronic constipation 564.00 ; GERD (gastroesophageal reflux disease) 530.81 and Hyperlipidemia 272.4 [place] [address] [address] SP Oct, Otalgia of left ear 388.70 SP [place] [address] [address] SP Oct, Unspecified episodic mood di sorder 296.90 SP [facility] [place] [address] [facility] [id number] [address] [place] [address] SP September, Unspecified episodic mood di sorder 296.90 SP [facility] [place] [address] [facility] [id number] [address] [place] [address] SP September, Unspecified episodic mood di sorder 296.90 SP [facility] [place] [address] [facility] [id number] [place] [address] SP September, Urinary frequency 788.41 and Constipation 564.00 SP [facility] [place] [address] [facility] [id number] [address] [place] [address] SP Aug, SP [facility] [place] [address] [facility] [id number] [address] [place] [address] SP Aug, SP [facility] [place] [address] [facility] [id number] [address] [place] [address] SP Jul, SP [facility] [place] [address] [facility] [id number] [address] [place] [address] SP Jul, SP [facility] [place] [address] [facility] [id number] [address] [place] [address] SP Jul, SP [facility] [place] [address] [facility] [id number] [address] [place] [address] SP Jul, SP [facility] [place] [address] [facility] [id number] [address] [place] [address] SP Jul, SP [facility] [place] [address] [facility] [id number] [address] [place] [address] SP Jul, SP [facility] [place] [address] [facility] [id number] [address] [place] [phone] SP Jul, SP [facility] [place] [address] [facility] [id number] [address] [place] [address] SP Jul, SP [facility] [place] [address] [facility] [id number] [address] [place] [address] SP Jul, SP [facility] [address] [id number] [address] [place] [address], [place] [address] SP Jul, SP [facility] [address] [id number] [address] [place] [address], [place] [address] SP Jun, SP [facility] [address] [id number] [address] [place] [address], [place] [address] SP Jun, SP [facility] [address] [id number] [address] [place] [address], [place] [address] SP May, SP [facility] [address] [id number] [address] [place] [address], [place] [address] SP May, SP [facility] [address] [id number] [address] [place] [address], [place] [address] SP May, SP [facility] [address] [id number] [address] [place] [address], [place] [address] SP May, SP [facility] [address] [id number] [address] [place] [address], [place] [address] SP May, SP [facility] [address] [id number] [address] [place] [address], [place] [address] SP May, SP [facility] [address] [id number] [address] [place] [address], [place] [address] SP May, SP [facility] [address] [id number] [address] [place] [address], [place] [address] SP May, SP [facility] [address] [id number] [address] [place] [address], [place] [address] SP May, SP [facility] [address] [id number] [address] [place] [address], [place] [address] SP May, SP [facility] [address] [id number] [address] [place] [address], [place] [address] SP May, SP [facility] [address] [id number] [address] [place] [address], [place] [address] SP May, SP [facility] [address] [id number] [address] [place] [address], [place] [address] SP May, SP [facility] [address] [id number] [address] [place] [address], [place] [address] SP Feb, SP [facility] [address] [id number] [address] [place] [address], [place] [address] SP Feb, 2013 SP [facility] [address] [id number] [address] [place] [address], [place] [address] SP Jan, 2013 SP [facility] [address] [id number] [address] [place] [address], [place] [address] SP 20 Jan, 2013 SP [facility] [address] [id number] [address] [place] [address], [place] [address] SP 18 Jan, 2013 SP [facility] [address] [id number] [address] [place] [address], [place] [address] SP 18 Jan, 2013 SP [facility] [address] [id number] [address] [place] [address], [place] [address] SP 12 Jan, 2013 SP [facility] [address] [id number] [address] [place] [address], [place] [address] SP 12 Jan, 2013 SP [facility] [address] [id number] [address] [place] [address], [place] [address] SP 12 Jan, 2013 SP [facility] [address] [id number] [address] [place] [address], [place] [address] SP 12 Jan, 2013 SP [facility] [address] [id number] [address] [place] [address], [place] [address] SP 11 Jan, 2013 SP [facility] [address] [id number] [address] [place] [address], [place] [address] SP 11 Jan, 2013 SP [facility] [address] [id number] [address] [place] [address], [place] [address] SP 10 Jan, 2013 SP [facility] [address] [id number] [address] [place] [address] SP Jan, SP [facility] [address] [id number] [address] [place] [address], [place] [id number] SP Oct, SP [facility] [address] [id number] [address] [place] [address], [place] [id number] SP Oct, SP [facility] [address] [id number] [address] [place] [address], [place] [id number] SP Oct, SP [facility] [address] [id number] [address] [place] [address], [place] [id number] SP Oct, SP [facility] [address] [id number] [address] [place] [address], [place] [id number] SP Jun, SP [facility] [address] [id number] [address] [place] [address], [place] [id number] SP Jun, SP [facility] [address] [id number] [address] [place] [id number] SP Jun, SP [facility] [address] [id number] [address] [place] [id number] SP Jun, SP [facility] [address] [id number] [address] [place] [id number] SP Apr, SP [facility] [address] [id number] [address] [place] [id number] SP Apr, SP [facility] [address] [id number] [address] [place] [id number] SP Feb, SP [facility] [address] [id number] [address] [place] [address], [place] [id number] SP Feb, SP [facility] [address] [id number] [address] [place] [id number] SP Dec, SP [facility] [address] [id number] [address] [place] [id number] SP Dec, SP [facility] [address] [id number] [address] [place] [address], [place] [id number] SP Nov, SP [facility] [address] [id number] [address] [place] [address], [place] [address] SP Nov, SP [facility] [address] [id number] [address] [place] [address], [place] [address] SP Nov, SP [facility] [address] [id number] [address] [place] [address], [place] [address] SP Oct, SP [facility] [address] [id number] [address] [place] [address], [place] [address] SP September, SP [facility] [address] [id number] [address] [place] [address], [place] [address] SP September, SP [facility] [address] [id number] [address] [place] [address], [place] [address] SP Aug, SP [facility] [address] [id number] [address] [place] [address], [place] [address] SP Aug, SP [facility] [address] [id number] [address] [place] [address], [place] [address] SP Aug, SP [facility] [address] [id number] [address] [place] [address], [place] [address] SP Aug, SP [facility] [address] [id number] [address] [place] [address], [place] [address] SP Aug, SP [facility] [address] [id number] [address] [place] [address], [place] [address] SP Aug, SP [facility] [address] [id number] [address] [place] [address], [place] [address] SP Jul, SP [facility] [address] [id number] [address] [place] [address], [place] [address] SP Jul, SP [facility] [address] [id number] [address] [place] [address], [place] [address] SP Jul, SP [facility] [address] [id number] [address] [place] [address], [place] [address] SP 15 Jul, 2012 SP [facility] [address] [id number] [address] [place] [address], [place] [address] SP Jul, SP [facility] [address] [id number] [address] [place] [address], [place] [address] SP Jul, SP [facility] [address] [id number] [address] [place] [address], [place] [address] SP Jun, SP [facility] [address] [id number] [address] [place] [address], [place] [address] SP Jun, SP [facility] [address] [id number] [address] [place] [address], [place] [address] SP May, SP [facility] [address] [id number] [address] [place] [address], [place] [address] SP May, SP [facility] [address] [id number] [address] [place] [address], [place] [address] SP Apr, SP [facility] [address] [id number] [address] [place] [address], [place] [address] SP Apr, SP [facility] [address] [id number] [address] [place] [address], [place] [address] SP Apr, SP [facility] [address] [id number] [address] [place] [address], [place] [address] SP Apr, SP [facility] [address] [id number] [address] [place] [address], [place] [address] SP Apr, SP [facility] [address] [id number] [address] [place] [address], [place] [address] SP Mar, SP [facility] [address] [id number] [address] [place] [address], [place] [address] SP Mar, SP [facility] [address] [id number] [address] [place] [address], [place] [address] SP Mar, SP [facility] [address] [id number] [address] [place] [address], [place] [address] SP Mar, SP [facility] [address] [id number] [address] [place] [address], [place] [address] SP Mar, SP [facility] [address] [id number] [address] [place] [address], [place] [address] SP Mar, SP [facility] [address] [id number] [address] [place] [address], [place] [address] SP Mar, SP [facility] [address] [id number] [address] [place] [address], [place] [address] SP Feb, SP [facility] [address] [id number] [address] [place] [address], [place] [address] SP Feb, SP [facility] [address] [id number] [address] [place] [address], [place] [address] SP Feb, SP [facility] [address] [id number] [address] [place] [address], [place] [address] SP Feb, SP [facility] [address] [id number] [address] [place] [address], [place] [address] SP Dec, SP [facility] [address] [id number] [address] [place] [address], [place] [address] SP Nov, SP [facility] [address] [id number] [address] [place] [address], [place] [address] SP Nov, SP [facility] [address] [id number] [address] [place] [address], [place] [address] SP Oct, SP [facility] [address] [id number] [address] [place] [address], [place] [address] SP Oct, SP [facility] [address] [id number] [address] [place] [address], [place] [address] SP Oct, SP [facility] [address] [id number] [address] [place] [address], [place] [address] SP Oct, SP [facility] [address] [id number] [address] [place] [address], [place] [address] SP Oct, SP [facility] [address] [id number] [address] [place] [address], [place] [address] SP Oct, SP [facility] [address] [id number] [address] [place] [address], [place] [address] SP Oct, SP [facility] [address] [id number] [address] [place] [address], [place] [address] SP Aug, SP [facility] [address] [id number] [address] [place] [address], [place] [address] SP Jul, SP [facility] [address] [id number] [address] [place] [address], [place] [address] SP Jul, SP [facility] [address] [id number] [address] [place] [address], [place] [address] SP Jul, SP [facility] [address] [id number] [address] [place] [address], [place] [address] SP Jul, SP [facility] [address] [id number] [address] [place] [address], [place] [address] SP Jul, SP [facility] [address] [id number] [address] [place] [address], [place] [address] SP Jul, SP [facility] [address] [id number] [address] [place] [address], [place] [address] SP Jul, SP [facility] [address] [id number] [address] [place] [address], [place] [address] SP Jun, SP [facility] [address] [id number] [address] [place] [address], [place] [address] SP May, SP [facility] [address] [id number] [address] [place] [address], [place] [address] SP May, SP [facility] [address] [id number] [address] [place] [address], [place] [address] SP May, SP [facility] [address] [id number] [address] [place] [address], [place] [address] SP Apr, SP [facility] [address] [id number] [address] [place] [address], [place] [address] SP Apr, SP [facility] [address] [id number] [address] [place] [address], [place] [address] SP Apr, SP [facility] [address] [id number] [address] [place] [address], [place] [address] SP Apr, SP [facility] [address] [id number] [address] [place] [address], [place] [address] SP Apr, SP [facility] [address] [id number] [address] [place] [address], [place] [address] SP Apr, SP [facility] [address] [id number] [address] [place] [address], [place] [address] SP Mar, SP [facility] [address] [id number] [address] [place] [address], [place] [address] SP Mar, SP [facility] [address] [id number] [address] [place] [address], [place] [address] SP Mar, SP [facility] [address] [id number] [address] [place] [address], [place] [address] SP Mar, SP [facility] [address] [id number] [address] [place] [address], [place] [address] SP Mar, SP [facility] [address] [id number] [address] [place] [address], [place] [address] SP Mar, SP [facility] [address] [id number] [address] [place] [address], [place] [address] SP Mar, SP [facility] [address] [id number] [address] [place] [address] SP Dec, SP [facility] [place] [address] [facility] [id number] [address] [place] [address] SP Aug, SP [facility] [place] [address] [facility] [id number] [address] [place] [address] SP Apr, SP [facility] [place] [address] [facility] [id number] [address] [place] [address] SP Mar, SP [facility] [place] [address] [id number] [address] [place] [address] SP Mar, SP [facility] [place] [address] [facility] [id number] [address] [place] [address] SP Mar, SP [facility] [place] [address] [facility] [id number] [address] [place] [id number] SP Mar, SP [facility] [place] [address] [facility] [id number] [address] [place] [address] SP September, SP [facility] [place] [address] [facility] [id number] [address] [place] [id number] SP Mar, SP [facility] [place] [address] [facility] [id number] [address] [place] [id number] SP Feb, SP [facility] [place] [address] [facility] [id number] [address] [place] [id number] SP Oct, SP [facility] [place] [address] [id number] [address] [place] [address] SP September, SP [facility] [place] [address] [facility] [id number] [address] [place] [id number] SP Apr, SP [facility] [place] [address] [facility] [id number] [address] [place] [id number] SP Mar, SP IMMUNIZATIONS Vaccine Route Administration Date Status POS TDAP (ADACEL) Unknown Jan 24, 2014 Administered SP SOCIAL HISTORY Never Assessed REASON FOR VISIT PLAN OF CARE VITAL SIGNS Height 65 in 2014-01-24 POS Weight 233.8 lbs 2014-01-24 POS Temperature 98.6 degrees Fahrenheit 2014-01-24 POS Heart Rate 82 bpm 2014-01-24 POS Respiratory Rate 22 2014-01-24 POS Blood pressure systolic 166 mmHg 2014-01-24 POS Blood pressure diastolic 84 mmHg 2014-01-24 POS MEDICATIONS Unknown Medications RESULTS No Results PROCEDURES Procedure Date Ordered Result Body Site POS THER/PROPH/DIAG INJ, SC/IM Jan 24, 2014 SP IM [id number] [place] Jan 24, 2014 SP INSTRUCTIONS MEDICATIONS ADMINISTERED No Known Medications MEDICAL [...]
--- OUTSIDE RECORDS SUMMARY | 2019-04-01 02:13 | XMS REPORT ---
Author Author LEONILA Morataya POS Organization [facility] SP Address [address] [place] [id number] SP Care Team Providers Care Hospital Ward Clerk Name Role Phone POS Hood LEONILA Unavailable SP PROBLEMS Type Condition ICD9-CM Code OAX73-KL Code Onset Dates Condition S tatus SNOMED POS Problem Peripheral vascular disease I73.9 Ac tive [id number] POS Problem Urinary, incontinence, stress female N39.3 Active [id number] SP Problem Chronic kidney disease, unspecified N18.9 Active [id number] SP Problem Dysphagia, unspecified R13.10 Active 04985007 SP Problem Anemia of chronic disease D63.8 Acti ve [id number] SP Problem Cervicalgia M54.2 Active [id number] 09428 SP Problem Essential hypertension I10 Active 34240025 SP Problem 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 030650652 SP Problem Abdominal aortic aneurysm (AAA) without rupture I7 1.4 Active SP Problem Seasonal allergic rhinitis, unspecified allergic rhinitis trigger SP Active 046601096 SP Problem Prediabetes R73.03 Active 45924278 2 SP Problem Mixed hyperlipidemia E78.2 Active 041592775 SP Problem Stenosis of right renal artery I70.1 Active [id number] SP Problem Chronic obstructive pulmonary disease, unspecified COPD ty pe J44.9 SP [id number] SP Problem Gastroesophageal reflux disease without esophagitis K21.9 Active SP Problem Hepatic steatosis K76.0 Active 19 8381821 SP Problem Renal artery stenosis I70.1 Active 743117037 SP Problem PVD (peripheral vascular disease) I73.9 Active 886144955 SP Problem Arthritis of knee M17.10 Active 37 8854328 SP Problem Other chronic pain G89.29 Active 8 9214084 SP ALLERGIES No Information ENCOUNTERS Encounter Location Date Diagnosis POS [facility] [address] [facility] [id number] [address] [place] [id number] SP Feb, SP [place] [address] [address] [facility] [id number] [address] [place] [phone] SP Dec, Peripheral edema R60.9 ; Mor bid obesity E66.01 ; Essential SP I10 and Chronic kidney disease, unspecified N18.9 [facility] [address] [facility] [id number] [address] [place] [address] SP Oct, Cellulitis of right upper ex tremity L03.113 and Morbid obesity SP [facility] [address] [place] [address] September, Dysuria R30.0 SP Right forearm cellulitis L03.113 [place] [address] [address] [place] [id number] [address] [place] [address] SP Jul, Contact dermatitis and other eczema, due to unspecified cause SP ; Morbid obesity E66.01 ; Essential hypertension I10 ; Chronic obstructive pulmonary disease, unspecified COPD type J44.9 ; Chronic kidney disease, unspecified N18.9 and Mixed hyperlipidemia E78.2 [facility] [address] [facility] [id number] [address] [place] [address] SP Jul, Skin infection L08.9 and Mor bid obesity E66.01 SP [facility] [place] [address] [address] [place] [id number] [address] [place] [address] SP Jun, Cellulitis of right arm L03. 113 and BMI 45.0-49.9, adult Z68.42 SP [place] [address] [address] [place] [id number] [address] [place] [phone] SP May, SP [place] [address] [address] [facility] [id number] [address] [place] [address] SP May, Chronic obstructive pulmonar y disease, unspecified COPD type SP ; Viral upper respiratory tract infection J06.9 and BMI 45.0-49.9, adult Z68.42 [place] [address] [address] [facility] [id number] [address] [place] [address] SP Mar, BMI 45.0-49.9, adult Z68.42 ; Chronic urticaria L50.8 and Skin SP L08.9 [place] [address] [address] [place] [id number] [place] [address] SP Mar, Dermatitis L30.9 and BMI 45. 0-49.9, adult Z68.42 SP [place] [address] [address] [place] [id number] [address] [place] [address] SP Feb, Cellulitis of right upper ex tremity L03.113 and BMI 45.0-49.9, SP Z68.42 [place] [address] [address] [place] [id number] [place] [phone] SP Feb, Cellulitis of right arm L03. 113 and Status post cardiac SP Z98.890 [place] [address] [address] [place] [id number] [place] [address] SP Feb, SP [place] [address] [address] SP Feb, Chronic obstructive pulmonar y disease, unspecified COPD type SP ; Essential hypertension I10 ; Encounter for immunization Z23 ; Mixed hyperlipidemia E78.2 and BMI 45.0-49.9, adult Z68.42 [place] [address] [address] SP Feb, Dysuria R30.0 ; Acute cystit is without hematuria N30.00 and BMI SP49.9, adult Z68.42 [place] [address] [address] SP Dec, SP [place] [address] [address] [place] [id number] [place] [address] SP Dec, Essential hypertension I10 ; Chronic kidney disease, unspecified SP ; Mixed hyperlipidemia E78.2 ; Tinea corporis B35.4 ; Right hip pain M25.551 and Acute pain of right knee M25.561 [place] [address] [address] SP Dec, Herpes zoster without compli cation B02.9 ; Dandruff L21.0 ; SP unspecified type R19.7 and BMI 45.0-49.9, adult Z68.42 [place] [address] [address] SP September, Chronic kidney disease, unsp ecified N18.9 ; Essential SP I10 ; Mixed hyperlipidemia E78.2 and BMI 45.0-49.9, adult Z68.42 [place] [address] [address] SP September, SP [place] [address] [address] SP September, Essential hypertension I10 ; Chronic kidney disease, unspecified SP ; Prediabetes R73.03 ; Low back pain M54.5 ; Other chronic pain G89.29 ; Arthritis of knee M17.10 ; Pure hyperglyceridemia E78.1 ; Anemia of chronic disease D63.8 and BMI 45.0-49.9, adult Z68.42 [place] [address] [address] SP Aug, SP [address] [address] SP Jul, Abdominal aortic aneurysm (A AA) without rupture I71.4 ; PVD SP vascular disease) I73.9 ; Renal artery stenosis I70.1 and Essential hypertension I10 [address] [address] SP May, Essential hypertension I10 ; Pure hyperglyceridemia E78.1 ; SP aortic aneurysm (AAA) without rupture I71.4 ; Chronic kidney disease, unspecified N18.9 ; Gastroesophageal reflux disease without esophagitis K21.9 ; 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 ; Stenosis of right renal artery I70.1 ; Anemia of chronic disease D63.8 and Prediabetes R73.[address] [address] SP May, Tinea corporis B35.4 and Vir al URI J06.9 [facility] [address] [facility] [id number] [address] [place] [phone] SP May, [facility] [address] [facility] [id number] [address] [place] [phone] SP Apr, [facility] [address] [facility] [id number] [place] [id number] SP Apr, Cervical radiculopathy M54.1 2 SP [facility] [address] [facility] [id number] [place] [address] SP Apr, Flank pain R10.9 and Acute p yelonephritis N10 [facility] [address] [facility] [id number] [address] [place] [phone] SP Apr, [facility] [address] [facility] [id number] [address] [place] [phone] SP Mar, [facility] [address] [facility] [id number] [address] [place] [address] SP Feb, Pain of right shoulder regio n M25.511 [facility] [address] [facility] [id number] [address] [place] [address] SP Feb, History of glaucoma Z86.69 ; Vision changes H53.9 ; Abdominal SP aneurysm (AAA) without rupture I71.4 ; Xerosis of skin L85.3 and Pain in right shoulder M25.511 [facility] [address] [facility] [id number] [address] [place] [address] SP Feb, [facility] [address] [facility] [id number] [address] [place] [address] SP Jan, Essential hypertension I10 ; Pure hyperglyceridemia E78.1 ; SP kidney disease, unspecified N18.9 ; Gastroesophageal reflux disease without esophagitis K21.9 ; 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 ; Stenosis of right renal artery I70.1 ; Anemia of chronic disease D63.8 ; Prediabetes R73.03 ; Pain of right shoulder region M25.511 and Homeless Z59.0 [place] [address] [address] SP Jan, Neck pain M54.2 and Seasonal allergic rhinitis, unspecified SP rhinitis trigger J30.2 [place] [address] [address] SP Dec, SP [place] [address] [address] SP Dec, SP [place] [address] [address] SP Dec, Blood glucose abnormal R73.0 9 [...] infection A04.8 and Prediabetes R73.03 [facility] [address] [place] [id number] [address] [place] [address] SP Oct, Seasonal allergic rhinitis, unspecified allergic rhinitis SP J30.2 [place] [address] [address] [place] [id number] [address] [place] [address] SP September, Eustachian tube dysfunction, left H69.82 and Candidiasis of SP B37.89 [facility] [address] [place] [id number] [address] [place] [address] SP Jul, Blood glucose abnormal R73.0 9 ; Essential hypertension I10 ; Pure SPhyperglyceridemia E78.1 ; Chronic kidney disease, unspecified N18.9 ; Gastroesophageal reflux disease without esophagitis K21.9 ; 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 ; Abdominal aortic aneurysm (AAA) without rupture I71.4 ; Stenosis of right renal artery I70.1 ; Anemia of chronic disease D63.8 and Acute non-recurrent maxillary sinusitis J01.00 [place] [address] [address] SP Jun, Acute non-recurrent maxillar y sinusitis J01.00 ; Acute mucoid SP media of left ear H65.112 ; Nausea R11.0 and Fever and chills R50.9 [place] [address] [address] SP May, Acute right flank pain R10.9 SP [place] [address] [address] SP Apr, Acute nasopharyngitis J00 ; Pure hyperglyceridemia E78.1 and SP kidney disease, unspecified N18.9 [place] [address] [address] SP Apr, SP [place] [address] [address] SP Apr, Blood glucose abnormal R73.0 9 ; Essential hypertension I10 ; Pure SPhyperglyceridemia E78.1 ; Chronic kidney disease, unspecified N18.9 ; Gastroesophageal reflux disease without esophagitis K21.9 ; 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 ; Abdominal aortic aneurysm (AAA) without rupture I71.4 ; Stenosis of right renal artery I70.1 ; RUQ pain R10.11 and Anemia of chronic disease D63.8 [place] [address] [address] [place] [id number] [address] [place] [address] SP Mar, Blood glucose abnormal R73.0 [address] [place] [address] [address] SP Mar, Cellulitis of right lower le g L03.115 [facility] [address] [place] [id number] [address] [place] [address] SP Feb, SP [facility] [address] [address] SP Feb, Dysuria R30.0 and Upper resp iratory tract infection, unspecified SP J06.9 [place] [address] [address] SP Jan, SP [place] [address] [address] SP Jan, SP [place] [address] [address] SP Dec, SP [place] [address] [address] SP Dec, Anemia of chronic disease D6 3.8 ; Essential hypertension I10 ; SP hyperglyceridemia E78.1 ; Chronic kidney disease, unspecified N18.9 ; Gastroesophageal reflux disease without esophagitis K21.9 ; 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 and Pain in right knee M25.561 [place] [address] [address] SP Dec, Left shoulder strain, subseq uent encounter S46.912D ; Urinary SP R35.0 ; Lung nodule, solitary R91.1 ; Essential hypertension I10 and Acute cystitis without hematuria N30.00 [place] [address] [address] [place] [id number] [address] [place] [address] SP Nov, Left-sided chest wall pain R 07.89 and Abnormal chest xray R93.8 SP [place] [address] [address] [place] [id number] [address] [place] [address] SP Nov, Pain of right lower extremit y M79.604 ; Swelling of right lower SP M79.89 ; Diarrhea, unspecified R19.7 ; Nausea with vomiting, unspecified R11.2 ; Left-sided chest wall pain R07.89 ; Chronic kidney disease, unspecified N18.9 ; Gastroesophageal reflux disease without esophagitis K21.9 and Other seasonal allergic rhinitis J30.2 [place] [address] [address] [place] [id number] [address] [place] [address] SP September, Essential hypertension I10 ; Chronic kidney disease, unspecified SP ; Anemia of chronic disease D63.8 ; Pure hyperglyceridemia E78.1 ; Peripheral vascular disease I73.9 ; Abnormal glucose R73.09 ; 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 ; Gastroesophageal reflux disease without esophagitis K21.9 ; Allergic rhinitis J30.9 and Rash R21 [place] [address] [address] [place] [id number] [place] [address] SP Aug, Abdominal pain R10.9 and Con stipation K59.00 SP [place] [address] [address] SP Jul, Injury of toe on right foot S99.921A SP [place] [address] [address] [place] [id number] [place] [address] SP Jul, SP [place] [address] [address] SP Jul, Essential hypertension I10 ; Chronic kidney disease, unspecified SP ; Anemia of chronic disease D63.8 ; Pure hyperglyceridemia E78.1 ; Peripheral vascular disease I73.9 ; Abnormal glucose R73.09 ; 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 ; Gastroesophageal reflux disease without esophagitis K21.9 and Allergic rhinitis J30.9 [place] [address] [address] [place] [id number] [address] [place] [phone] SP Jun, Low back pain M54.5 SP [place] [address] [address] [place] [id number] [address] [place] [id number] SP Jun, SP [place] [address] [address] [place] [id number] [address] [place] [address] SP May, URI (upper respiratory infec tion) J06.9 SP [place] [address] [address] [place] [id number] [address] [place] [phone] SP Apr, Essential hypertension I10 SP [place] [address] [address] [place] [id number] [place] [address] SP Apr, Essential hypertension I10 ; Chronic kidney disease, unspecified SP ; Anemia of chronic disease D63.8 ; Pure hyperglyceridemia E78.1 ; Peripheral vascular disease I73.9 ; Abnormal glucose R73.09 ; URI (upper respiratory infection) J06.9 ; 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 ; Gastroesophageal reflux disease without esophagitis K21.9 and Cough R05 [place] [address] [address] SP Mar, Flank pain R10.9 and URI (up per respiratory infection) J06.9 SP [place] [address] [address] SP Mar, Right-sided low back pain wi thout sciatica M54.5 and Hematuria, SP R31.9 [place] [address] [address] SP Mar, Hypopigmentation L81.9 and H yperpigmentation L81.9 SP [place] [address] [address] SP Mar, SP [place] [address] [address] SP Mar, Acute cystitis with hematuri a N30.01 SP [place] [address] [address] SP Mar, SP [place] [address] [address] SP Feb, Furuncle L02.92 ; Hypopigmen tation L81.9 ; Hyperpigmentation SP ; Urinary frequency R35.0 ; Screening for malignant neoplasm of cervix Z12.4 ; Vaginal discharge N89.8 ; Urinary, incontinence, stress female N39.3 and Vaginal irritation N89.8 [place] [address] [address] [place] [id number] [address] [place] [address] SP Jan, Muscle spasm 728.85 ; Unspec ified peripheral vascular disease SP ; Benign essential hypertension 401.1 ; Chronic renal insufficiency 585.9 ; Chronic constipation 564.00 ; GERD (gastroesophageal reflux disease) 530.81 ; Hyperlipidemia 272.4 and Chronic leg pain 729.5 [place] [address] [address] SP Jan, Sinusitis 473.9 SP [place] [address] [address] SP Dec, SP [place] [address] [address] SP Dec, Acute bronchitis 466.0 SP [place] [address] [address] SP Dec, Acute bronchitis 466.0 SP [place] [address] [address] SP Dec, Unspecified episodic mood di sorder 296.90 SP [place] [address] [address] SP Dec, Visit for suture removal V58 .32 SP [place] [address] [address] SP Nov, Allergic rhinitis 477.9 and Onychomycosis 110.1 SP [place] [address] [address] SP Oct, Muscle spasm 728.85 ; Benign essential hypertension 401.1 ; SP renal insufficiency 585.9 ; Chronic constipation 564.00 ; GERD (gastroesophageal reflux disease) 530.81 and Hyperlipidemia 272.4 [place] [address] [address] SP Oct, Otalgia of left ear 388.70 SP [place] [address] [address] SP Oct, Unspecified episodic mood di sorder 296.90 SP [facility] [address] [id number] [address] [place] [address] SP September, Unspecified episodic mood di sorder 296.90 SP [facility] [address] [facility] [id number] [address] [place] [address] SP September, Unspecified episodic mood di sorder 296.90 SP [facility] [address] [id number] [place] [address] SP September, Urinary frequency 788.41 and Constipation 564.00 SP [facility] [address] [facility] [id number] [address] [place] [address] SP Aug, SP [facility] [address] [facility] [id number] [address] [place] [address] SP Aug, SP [facility] [address] [facility] [id number] [address] [place] [address] SP Jul, SP [facility] [address] [id number] [address] [place] [address] SP Jul, SP [facility] [address] [id number] [address] [place] [phone] SP Jul, SP [facility] [address] [facility] [id number] [address] [place] [address] SP Jul, SP [facility] [address] [facility] [id number] [address] [place] [address] SP Jul, SP [facility] [address] [id number] [address] [place] [address] SP Jul, SP [facility] [address] [facility] [id number] [address] [place] [address] SP Jul, SP [facility] [address] [facility] [id number] [address] [place] [address] SP Jul, SP [facility] [address] [facility] [id number] [address] [place] [address] SP Jul, SP [facility] [address] [id number] [address] [place] [address], [place] [address] SP Jul, SP [facility] [address] [id number] [address] [place] [address], [place] [address] SP Jun, SP [facility] [address] [id number] [address] [place] [address], [place] [address] SP Jun, SP [facility] [address] [id number] [address] [place] [address], [place] [address] SP May, SP [facility] [address] [id number] [address] [place] [address], [place] [address] SP May, SP [facility] [address] [id number] [address] [place] [address], [place] [address] SP May, SP [facility] [address] [id number] [address] [place] [address], [place] [address] SP May, SP [facility] [address] [id number] [address] [place] [address], [place] [address] SP May, SP [facility] [address] [id number] [address] [place] [address], [place] [address] SP May, SP [facility] [address] [id number] [address] [place] [address], [place] [address] SP May, SP [facility] [address] [id number] [address] [place] [address], [place] [address] SP May, SP [facility] [address] [id number] [address] [place] [address], [place] [address] SP May, SP [facility] [address] [id number] [address] [place] [address], [place] [address] SP May, SP [facility] [address] [id number] [address] [place] [address], [place] [address] SP May, SP [facility] [address] [id number] [address] [place] [id number] SP May, SP [facility] [address] [id number] [address] [place] [address], [place] [address] SP May, SP [facility] [address] [id number] [address] [place] [address], [place] [address] SP Feb, 2013 SP [facility] [address] [id number] [address] [place] [address], [place] [address] SP Feb, 2013 SP [facility] [address] [id number] [address] [place] [address], [place] [address] SP 20 Jan, 2013 SP [facility] [address] [id number] [address] [place] [address], [place] [address] SP 20 Jan, 2013 SP [facility] [address] [id number] [address] [place] [address], [place] [address] SP 18 Jan, 2013 SP [facility] [address] [id number] [address] [place] [address], [place] [address] SP 18 Jan, 2013 SP [facility] [address] [id number] [address] [place] [address], [place] [address] SP 12 Jan, 2013 SP [facility] [address] [id number] [address] [place] [address], [place] [address] SP 12 Jan, 2013 SP [facility] [address] [id number] [address] [place] [address], [place] [address] SP 12 Jan, 2013 SP [facility] [address] [id number] [address] [place] [address], [place] [address] SP 12 Jan, 2013 SP [facility] [address] [id number] [address] [place] [address], [place] [id number] SP 11 Jan, 2013 SP [facility] [address] [id number] [address] [place] [address], [place] [address] SP 11 Jan, 2013 SP [facility] [address] [id number] [address] [place] [address], [place] [id number] SP 10 Jan, 2013 SP [facility] [address] [id number] [address] [place] [address], [place] [address] SP Jan, SP [facility] [address] [id number] [address] [place] [address], [place] [id number] SP Oct, SP [facility] [address] [id number] [address] [place] [address], [place] [address] SP Oct, SP [facility] [address] [id number] [address] [place] [address], [place] [address] SP Oct, SP [facility] [address] [id number] [address] [place] [address], [place] [address] SP Oct, SP [facility] [address] [id number] [address] [place] [address], [place] [id number] SP Jun, SP [facility] [address] [id number] [address] [place] [address], [place] [address] SP Jun, SP [facility] [address] [id number] [address] [place] [address], [place] [id number] SP Jun, SP [facility] [address] [id number] [address] [place] [address], [place] [id number] SP Jun, SP [facility] [address] [facility] [id number] [address] [place] [place] [id number] SP Apr, SP [facility] [address] [id number] [address] [place] [address], [place] [address] SP Apr, SP [facility] [address] [id number] [address] [place] [id number] SP Feb, SP [facility] [address] [id number] [address] [place] [address], [place] [address] SP Feb, SP [facility] [address] [facility] [id number] [address] [place] [id number] SP Dec, SP [facility] [address] [facility] [id number] [address] [place] [address], [place] [address] SP Dec, SP [facility] [address] [id number] [address] [place] [address], [place] [address] SP Nov, SP [facility] [address] [id number] [address] [place] [address], [place] [address] SP Nov, SP [facility] [address] [id number] [address] [place] [address], [place] [address] SP Nov, SP [facility] [address] [id number] [address] [place] [address], [place] [address] SP Oct, SP [facility] [address] [id number] [address] [place] [address], [place] [address] SP September, SP [facility] [address] [id number] [address] [place] [address], [place] [address] SP September, SP [facility] [address] [id number] [address] [place] [address], [place] [address] SP Aug, SP [facility] [address] [id number] [address] [place] [address], [place] [address] SP Aug, SP [facility] [address] [id number] [address] [place] [address], [place] [address] SP Aug, SP [facility] [address] [id number] [address] [place] [address], [place] [address] SP Aug, SP [facility] [address] [id number] [address] [place] [address], [place] [address] SP Aug, SP [facility] [address] [id number] [address] [place] [address], [place] [address] SP Aug, SP [facility] [address] [id number] [address] [place] [address], [place] [address] SP Jul, SP [facility] [address] [id number] [address] [place] [address], [place] [address] SP Jul, SP [facility] [address] [id number] [address] [place] [address], [place] [address] SP 21 Jul, 2012 SP [facility] [address] [id number] [address] [place] [address], [place] [address] SP 15 Jul, 2012 SP [facility] [address] [id number] [address] [place] [address], [place] [address] SP Jul, SP [facility] [address] [id number] [address] [place] [address], [place] [address] SP Jul, SP [facility] [address] [id number] [address] [place] [address], [place] [address] SP Jun, SP [facility] [address] [id number] [address] [place] [address], [place] [address] SP Jun, SP [facility] [address] [id number] [address] [place] [address], [place] [address] SP May, SP [facility] [address] [id number] [address] [place] [address], [place] [address] SP May, SP [facility] [address] [id number] [address] [place] [address], [place] [address] SP Apr, SP [facility] [address] [id number] [address] [place] [address], [place] [address] SP Apr, SP [facility] [address] [id number] [address] [place] [address], [place] [address] SP Apr, SP [facility] [address] [id number] [address] [place] [address], [place] [address] SP Apr, SP [facility] [address] [id number] [address] [place] [address], [place] [address] SP Apr, SP [facility] [address] [id number] [address] [place] [address], [place] [address] SP Mar, SP [facility] [address] [id number] [address] [place] [address], [place] [address] SP Mar, SP [facility] [address] [id number] [address] [place] [address], [place] [address] SP Mar, SP [facility] [address] [id number] [address] [place] [address], [place] [address] SP Mar, SP [facility] [address] [id number] [address] [place] [address], [place] [address] SP Mar, SP [facility] [address] [id number] [address] [place] [address], [place] [address] SP Mar, SP [facility] [address] [id number] [address] [place] [address], [place] [address] SP Mar, SP [facility] [address] [id number] [address] [place] [address], [place] [address] SP Feb, SP [facility] [address] [id number] [address] [place] [address], [place] [address] SP Feb, SP [facility] [address] [id number] [address] [place] [address], [place] [address] SP Feb, SP [facility] [address] [id number] [address] [place] [address], [place] [address] SP Feb, SP [facility] [address] [id number] [address] [place] [address], [place] [address] SP Dec, SP [facility] [address] [id number] [address] [place] [address], [place] [address] SP Nov, SP [facility] [address] [id number] [address] [place] [address], [place] [address] SP Nov, SP [facility] [address] [id number] [address] [place] [address], [place] [address] SP Oct, SP [facility] [address] [id number] [address] [place] [address], [place] [address] SP Oct, SP [facility] [address] [id number] [address] [place] [address], [place] [address] SP Oct, SP [facility] [address] [id number] [address] [place] [address], [place] [address] SP Oct, SP [facility] [address] [id number] [address] [place] [address], [place] [address] SP Oct, SP [facility] [address] [id number] [address] [place] [address], [place] [address] SP Oct, SP [facility] [address] [id number] [address] [place] [address], [place] [address] SP Oct, SP [facility] [address] [id number] [address] [place] [address], [place] [address] SP Aug, SP [facility] [address] [id number] [address] [place] [address], [place] [address] SP Jul, SP [facility] [address] [id number] [address] [place] [address], [place] [address] SP Jul, SP [facility] [address] [id number] [address] [place] [address], [place] [address] SP Jul, SP [facility] [address] [id number] [address] [place] [address], [place] [address] SP Jul, SP [facility] [address] [id number] [address] [place] [address], [place] [address] SP Jul, SP [facility] [address] [id number] [address] [place] [address], [place] [address] SP Jul, SP [facility] [address] [id number] [address] [place] [address], [place] [address] SP Jul, SP [facility] [address] [id number] [address] [place] [address], [place] [address] SP Jun, SP [facility] [address] [id number] [address] [place] [address], [place] [address] SP May, SP [facility] [address] [id number] [address] [place] [address], [place] [address] SP May, SP [facility] [address] [id number] [address] [place] [address], [place] [address] SP May, SP [facility] [address] [id number] [address] [place] [address], [place] [address] SP Apr, SP [facility] [address] [id number] [address] [place] [address], [place] [address] SP Apr, SP [facility] [address] [id number] [address] [place] [address], [place] [address] SP Apr, SP [facility] [address] [id number] [address] [place] [address], [place] [address] SP Apr, SP [facility] [address] [id number] [address] [place] [address], [place] [address] SP Apr, SP [facility] [address] [id number] [address] [place] [address], [place] [address] SP Apr, SP [facility] [address] [id number] [address] [place] [address], [place] [address] SP Mar, SP [facility] [address] [id number] [address] [place] [address], [place] [address] SP Mar, SP [facility] [address] [id number] [address] [place] [address], [place] [address] SP Mar, SP [facility] [address] [id number] [address] [place] [address], [place] [address] SP Mar, SP [facility] [address] [id number] [address] [place] [address], [place] [address] SP Mar, SP [facility] [address] [id number] [address] [place] [address], [place] [address] SP Mar, SP [facility] [address] [id number] [address] [place] [address], [place] [address] SP Mar, SP [facility] [address] [id number] [address] [place] [id number] SP Dec, SP [facility] [address] [facility] [id number] [address] [place] [id number] SP Aug, SP [facility] [address] [id number] [address] [place] [id number] SP Apr, SP [facility] [address] [id number] [address] [place] [id number] SP Mar, SP [facility] [address] [id number] [address] [place] [id number] SP Mar, SP [facility] [address] [facility] [id number] [address] [place] [id number] SP Mar, SP [facility] [address] [facility] [id number] [address] [place] [id number] SP Mar, SP [facility] [address] [facility] [id number] [address] [place] [id number] SP September, SP [facility] [address] [id number] [address] [place] [id number] SP Mar, SP [facility] [address] [facility] [id number] [address] [place] [id number] SP Feb, SP [facility] [address] [id number] [address] [place] [id number] SP Oct, SP [facility] [address] [id number] [address] [place] [id number] SP September, SP [facility] [address] [id number] [address] [place] [id number] SP Apr, SP [facility] [address] [facility] [id number] [address] [place] [id number] SP Mar, SP IMMUNIZATIONS No Known Immunizations SOCIAL HISTORY Never Assessed REASON FOR VISIT PLAN OF CARE VITAL SIGNS MEDICATIONS Unknown [...]
--- OUTSIDE RECORDS SUMMARY | 2019-04-01 02:14 | XMS REPORT ---
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
--- OUTSIDE RECORDS SUMMARY | 2019-04-01 02:14 | XMS REPORT ---
Author Author Migration, Doctor POS Organization [facility] SP Address Unknown SP Phone Unavailable SP Care Team Providers Care Conveyor Console Operator Name Role Phone POS Migration, Doctor Unavailable Unavailable SP PROBLEMS Type Condition ICD9-CM Code [id number] Code Onset Dates Condition S tatus SNOMED POS Problem Peripheral vascular disease I73.9 Ac tive [id number] POS Problem Urinary, incontinence, stress female N39.3 Active 09170959 SP Problem Chronic kidney disease, unspecified N18.9 Active 898654009 SP Problem Dysphagia, unspecified R13.10 Active 61887920 SP Problem Anemia of chronic disease D63.8 Acti ve 431919190 SP Problem Cervicalgia M54.2 Active 07383989 92376 SP Problem Essential hypertension I10 Active 54069184 SP Problem 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 792554069 SP Problem Abdominal aortic aneurysm (AAA) without rupture I7 1.4 Active SP Problem Seasonal allergic rhinitis, unspecified allergic rhinitis trigger SP Active 698080336 SP Problem Prediabetes R73.03 Active 98117412 2 SP Problem Mixed hyperlipidemia E78.2 Active 197076702 SP Problem Stenosis of right renal artery I70.1 Active [id number] SP Problem Chronic obstructive pulmonary disease, unspecified COPD ty pe J44.9 SP 85454094 SP Problem Gastroesophageal reflux disease without esophagitis K21.9 Active SP Problem Hepatic steatosis K76.0 Active 19 6164453 SP Problem Renal artery stenosis I70.1 Active 491380279 SP Problem PVD (peripheral vascular disease) I73.9 Active 523189494 SP Problem Arthritis of knee M17.10 Active 37 2779895 SP Problem Other chronic pain G89.29 Active 8 3852236 SP ALLERGIES No Information ENCOUNTERS Encounter Location Date Diagnosis POS [facility] [address] [facility] [id number] [address] [place] [phone] SP Feb, SP [facility] [address] [facility] [id number] [address] [place] [address] SP Dec, Peripheral edema R60.9 ; Mor bid obesity E66.01 ; Essential SP I10 and Chronic kidney disease, unspecified N18.9 [facility] [address] SP Oct, Cellulitis of right upper ex tremity L03.113 and Morbid obesity SP [facility] [address] [place] [address] September, Dysuria R30.0 SP Right forearm cellulitis L03.113 [place] [address] [address] SP Jul, Contact dermatitis and other eczema, due to unspecified cause SP ; Morbid obesity E66.01 ; Essential hypertension I10 ; Chronic obstructive pulmonary disease, unspecified COPD type J44.9 ; Chronic kidney disease, unspecified N18.9 and Mixed hyperlipidemia E78.2 [facility] [place] [address] SP Jul, Skin infection L08.9 and Mor bid obesity E66.01 SP [facility] [place] [address] SP Jun, Cellulitis of right arm L03. 113 and BMI 45.0-49.9, adult Z68.42 SP [place] [address] [address] SP May, SP [place] [address] [address] SP May, Chronic obstructive pulmonar y disease, unspecified COPD type SP ; Viral upper respiratory tract infection J06.9 and BMI 45.0-49.9, adult Z68.42 [place] [address] [address] SP Mar, BMI 45.0-49.9, adult Z68.42 ; Chronic urticaria L50.8 and Skin SP L08.9 [place] [address] [address] SP Mar, Dermatitis L30.9 and BMI 45. 0-49.9, adult Z68.42 SP [place] [address] [address] SP Feb, Cellulitis of right upper ex tremity L03.113 and BMI 45.0-49.9, SP Z68.42 [place] [address] [address] SP Feb, Cellulitis of right arm L03. 113 and Status post cardiac SP Z98.890 [place] [address] [address] SP Feb, SP [place] [address] [address] SP Feb, Chronic obstructive pulmonar y disease, unspecified COPD type SP ; Essential hypertension I10 ; Encounter for immunization Z23 ; Mixed hyperlipidemia E78.2 and BMI 45.0-49.9, adult Z68.42 [place] [address] [address] [place] [id number] [place] [address] SP Feb, Dysuria R30.0 ; Acute cystit is without hematuria N30.00 and BMI SP49.9, adult Z68.42 [place] [address] [place] [id number] [address] [place] [address] SP Dec, SP [place] [address] [address] SP Dec, Essential hypertension I10 ; Chronic kidney disease, unspecified SP ; Mixed hyperlipidemia E78.2 ; Tinea corporis B35.4 ; Right hip pain M25.551 and Acute pain of right knee M25.561 [place] [address] [address] [place] [id number] [place] [address] SP Dec, Herpes zoster without compli cation B02.9 ; Dandruff L21.0 ; SP unspecified type R19.7 and BMI 45.0-49.9, adult Z68.42 [place] [address] [address] SP September, Chronic kidney disease, unsp ecified N18.9 ; Essential SP I10 ; Mixed hyperlipidemia E78.2 and BMI 45.0-49.9, adult Z68.42 [place] [address] [address] SP September, SP [place] [address] [address] SP September, Essential hypertension I10 ; Chronic kidney disease, unspecified SP ; Prediabetes R73.03 ; Low back pain M54.5 ; Other chronic pain G89.29 ; Arthritis of knee M17.10 ; Pure hyperglyceridemia E78.1 ; Anemia of chronic disease D63.8 and BMI 45.0-49.9, adult Z68.42 [place] [address] [address] SP Aug, SP [place] [address] [address] SP Jul, Abdominal aortic aneurysm (A AA) without rupture I71.4 ; PVD SP vascular disease) I73.9 ; Renal artery stenosis I70.1 and Essential hypertension I10 [place] [address] [address] SP May, Essential hypertension I10 ; Pure hyperglyceridemia E78.1 ; SP aortic aneurysm (AAA) without rupture I71.4 ; Chronic kidney disease, unspecified N18.9 ; Gastroesophageal reflux disease without esophagitis K21.9 ; 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 [id number] [address] [place] [address] SP May, [facility] [address] [facility] [id number] [address] [place] [address] SP Apr, [facility] [address] [facility] [id number] [address] [place] [address] SP Apr, Cervical radiculopathy M54.1 2 SP [facility] [address] [facility] [id number] [address] [place] [address] SP Apr, Flank pain R10.9 and Acute p yelonephritis N10 SP [facility] [address] [facility] [id number] [address] [place] [address] SP Apr, [facility] [address] [facility] [id number] [address] [place] [address] SP Mar, [facility] [address] [facility] [id number] [address] [place] [address] SP Feb, Pain of right shoulder regio n M25.511 [facility] [address] [facility] [id number] [address] [place] [address] SP Feb, History of glaucoma Z86.69 ; Vision changes H53.9 ; Abdominal SP aneurysm (AAA) without rupture I71.4 ; Xerosis of skin L85.3 and Pain in right shoulder M25.511 [facility] [address] [place] [id number] [address] [place] [address] SP Feb, [facility] [address] 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 pylori infection A04.8 and Prediabetes R73.03 [facility] [address] [place] [id number] [address] [place] [address] SP Oct, Seasonal allergic rhinitis, unspecified allergic rhinitis SP J30.2 [place] [address] [address] [place] [id number] [place] [phone] SP September, Eustachian tube dysfunction, left H69.82 and Candidiasis of SP B37.89 [place] [address] [place] [address] SP Jul, Blood glucose abnormal R73.0 9 ; Essential hypertension I10 ; Pure SPhyperglyceridemia E78.1 ; Chronic kidney disease, unspecified N18.9 ; Gastroesophageal reflux disease without esophagitis K21.9 ; 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 ; Abdominal aortic aneurysm (AAA) without rupture I71.4 ; Stenosis of right renal artery I70.1 ; Anemia of chronic disease D63.8 and Acute non-recurrent maxillary sinusitis J01.00 [place] [address] [address] [place] [address] [place] [address] SP Jun, Acute non-recurrent maxillar y sinusitis J01.00 ; Acute mucoid SP media of left ear H65.112 ; Nausea R11.0 and Fever and chills R50.9 [place] [address] [address] SP May, Acute right flank pain R10.9 SP [place] [address] [address] SP Apr, Acute nasopharyngitis J00 ; Pure hyperglyceridemia E78.1 and SP kidney disease, unspecified N18.9 [place] [address] [address] SP Apr, SP [place] [address] [address] SP Apr, Blood glucose abnormal R73.0 9 ; Essential hypertension I10 ; Pure SPhyperglyceridemia E78.1 ; Chronic kidney disease, unspecified N18.9 ; Gastroesophageal reflux disease without esophagitis K21.9 ; 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 ; Abdominal aortic aneurysm (AAA) without rupture I71.4 ; Stenosis of right renal artery I70.1 ; RUQ pain R10.11 and Anemia of chronic disease D63.8 [place] [address] [address] [place] [id number] [place] [address] SP Mar, Blood glucose abnormal R73.0 9 SP [place] [address] [place] [id number] [place] [address] SP Mar, Cellulitis of right lower le g L03.115 SP [facility] [address] SP Feb, SP [place] [address] [place] [id number] [place] [phone] SP Feb, Dysuria R30.0 and Upper resp iratory tract infection, unspecified SP J06.9 [place] [address] 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 and Pain in right knee M25.561 [place] [address] [address] [place] [id number] [place] [address] SP Dec, Left shoulder strain, subseq uent encounter S46.912D ; Urinary SP R35.0 ; Lung nodule, solitary R91.1 ; Essential hypertension I10 and Acute cystitis without hematuria N30.00 [place] [address] [address] [place] [id number] [place] [address] SP Nov, Left-sided chest wall pain R 07.89 and Abnormal chest xray R93.8 SP [place] [address] [address] [place] [id number] [address] [place] [address] SP Nov, Pain of right lower extremit y M79.604 ; Swelling of right lower SP M79.89 ; Diarrhea, unspecified R19.7 ; Nausea with vomiting, unspecified R11.2 ; Left-sided chest wall pain R07.89 ; Chronic kidney disease, unspecified N18.9 ; Gastroesophageal reflux disease without esophagitis K21.9 and Other seasonal allergic rhinitis J30.2 [place] [address] 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 ; Gastroesophageal reflux disease without esophagitis K21.9 ; Allergic rhinitis J30.9 and Rash R21 [place] [address] [address] [place] [id number] [place] [address] SP Aug, Abdominal pain R10.9 and Con stipation K59.00 SP [place] [address] [address] SP Jul, Injury of toe on right foot S99.921A SP [place] [address] [address] SP Jul, SP [place] [address] [address] SP Jul, Essential hypertension I10 ; Chronic kidney disease, unspecified SP ; Anemia of chronic disease D63.8 ; Pure hyperglyceridemia E78.1 ; Peripheral vascular disease I73.9 ; Abnormal glucose R73.09 ; 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 ; Gastroesophageal reflux disease without esophagitis K21.9 and Allergic rhinitis J30.9 [place] [address] [address] SP Jun, Low back pain M54.5 SP [place] [address] [address] SP Jun, SP [place] [address] [address] SP May, URI (upper respiratory infec tion) J06.9 SP [place] [address] [address] SP Apr, Essential hypertension I10 SP [place] [address] [place] [id number] [place] [address] SP Apr, Essential hypertension I10 ; Chronic kidney disease, unspecified SP ; Anemia of chronic disease D63.8 ; Pure hyperglyceridemia E78.1 ; Peripheral vascular disease I73.9 ; Abnormal glucose R73.09 ; URI (upper respiratory infection) J06.9 ; 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 ; Gastroesophageal reflux disease without esophagitis K21.9 and Cough R05 [place] [address] [address] SP Mar, Flank pain R10.9 and URI (up per respiratory infection) J06.9 SP [place] [address] [address] SP Mar, Right-sided low back pain wi thout sciatica M54.5 and Hematuria, SP R31.9 [place] [address] [address] SP Mar, Hypopigmentation L81.9 and H yperpigmentation L81.9 SP [place] [address] [address] SP Mar, SP [place] [address] [address] SP Mar, Acute cystitis with hematuri a N30.01 SP [place] [address] [address] SP Mar, SP [place] [address] [address] SP Feb, Furuncle L02.92 ; Hypopigmen tation L81.9 ; Hyperpigmentation SP ; Urinary frequency R35.0 ; Screening for malignant neoplasm of cervix Z12.4 ; Vaginal discharge N89.8 ; Urinary, incontinence, stress female N39.3 and Vaginal irritation N89.8 [place] [address] [address] SP Jan, Muscle spasm 728.85 ; Unspec ified peripheral vascular disease SP ; Benign essential hypertension 401.1 ; Chronic renal insufficiency 585.9 ; Chronic constipation 564.00 ; GERD (gastroesophageal reflux disease) 530.81 ; Hyperlipidemia 272.4 and Chronic leg pain 729.5 [place] [address] [address] SP Jan, Sinusitis 473.9 SP [place] [address] [address] SP Dec, SP [place] [address] [address] SP Dec, Acute bronchitis 466.0 SP [place] [address] [address] SP Dec, Acute bronchitis 466.0 SP [place] [address] [address] SP Dec, Unspecified episodic mood di sorder 296.90 SP [place] [address] [address] SP Dec, Visit for suture removal V58 .32 SP [place] [address] [address] SP Nov, Allergic rhinitis 477.9 and Onychomycosis 110.1 SP [place] [address] [address] SP Oct, Muscle spasm 728.85 ; Benign essential hypertension 401.1 ; SP renal insufficiency 585.9 ; Chronic constipation 564.00 ; GERD (gastroesophageal reflux disease) 530.81 and Hyperlipidemia 272.4 [place] [address] [address] [place] [id number] [address] [place] [address] SP Oct, Otalgia of left ear 388.70 SP [place] [address] [address] SP Oct, Unspecified episodic mood di sorder 296.90 SP [place] [address] [address] SP September, Unspecified episodic mood di sorder 296.90 SP [facility] [address] [id number] [address] [place] [address] SP September, Unspecified episodic mood di sorder 296.[address] [facility] [address] [id number] [place] [address] SP September, Urinary frequency 788.41 and Constipation 564.00 SP [facility] [address] [id number] [address] [place] [address] SP Aug, SP [facility] [address] [id number] [address] [place] [phone] SP Aug, SP [facility] [address] [facility] [id number] [address] [place] [phone] SP Jul, SP [facility] [address] [id number] [address] [place] [phone] SP Jul, SP [facility] [address] [id number] [address] [place] [phone] SP Jul, SP [facility] [address] [id number] [address] [place] [phone] SP Jul, SP [facility] [address] [id number] [address] [place] [phone] SP Jul, SP [facility] [address] [facility] [id number] [address] [place] [phone] SP Jul, SP [facility] [address] [id number] [address] [place] [phone] SP Jul, SP [facility] [address] [facility] [id number] [address] [place] [phone] SP Jul, SP [facility] [address] [facility] [id number] [address] [place] [phone] SP Jul, SP [facility] [address] [facility] [id number] [address] [place] [address] SP Jul, SP [facility] [address] [id number] [address] [place] [address], [place] [address] SP Jun, SP [facility] [address] [id number] [address] [place] [address], [place] [address] SP Jun, SP [facility] [address] [id number] [address] [place] [address], [place] [address] SP May, SP [facility] [address] [id number] [address] [place] [address], [place] [address] SP May, SP [facility] [address] [id number] [address] [place] [address], [place] [address] SP May, SP [facility] [address] [id number] [address] [place] [address], [place] [address] SP May, SP [facility] [address] [id number] [address] [place] [address], [place] [address] SP May, SP [facility] [address] [id number] [address] [place] [address], [place] [address] SP May, SP [facility] [address] [id number] [address] [place] [address], [place] [address] SP May, SP [facility] [address] [id number] [address] [place] [address], [place] [address] SP May, SP [facility] [address] [id number] [address] [place] [address], [place] [address] SP May, SP [facility] [address] [id number] [address] [place] [address], [place] [address] SP May, SP [facility] [address] [id number] [address] [place] [address], [place] [address] SP May, SP [facility] [address] [id number] [address] [place] [address], [place] [address] SP May, SP [facility] [address] [id number] [address] [place] [address] [place] [address] SP May, 2014 SP [facility] [address] [id number] [address] [place] [address], [place] [address] SP Feb, 2013 SP [facility] [address] [id number] [address] [place] [address], [place] [address] SP Feb, 2013 SP [facility] [address] [id number] [address] [place] [address], [place] [address] SP 20 Jan, 2013 SP [facility] [address] [id number] [address] [place] [address], [place] [address] SP 20 Jan, 2013 SP [facility] [address] [id number] [address] [place] [address], [place] [address] SP 18 Sep, 2013 SP [facility] [address] [id number] [address] [place] [address], [place] [address] SP 18 Sep, 2013 SP [facility] [address] [id number] [address] [place] [address], [place] [address] SP 12 Sep, 2013 SP [facility] [address] [id number] [address] [place] [address], [place] [address] SP 12 Sep, 2013 SP [facility] [address] [id number] [address] [place] [address], [place] [address] SP 12 Jan, 2013 SP [facility] [address] [id number] [address] [place] [address], [place] [address] SP 12 Sep, 2013 SP [facility] [address] [id number] [address] [place] [address], [place] [address] SP 11 Sep, 2013 SP [facility] [address] [id number] [address] [place] [address], [place] [address] SP 11 Sep, 2013 SP [facility] [address] [id number] [address] [place] [address], [place] [address] SP 10 Sep, 2013 SP [facility] [address] [id number] [address] [place] [address], [place] [address] SP 10 Sep, 2013 SP [facility] [address] [id number] [address] [place] [address], [place] [address] SP Oct, SP [facility] [address] [id number] [address] [place] [address], [place] [id number] SP Oct, SP [facility] [address] [id number] [address] [place] [address], [place] [id number] SP Oct, SP [facility] [address] [id number] [address] [place] [address], [place] [id number] SP Oct, SP [facility] [address] [id number] [address] [place] [address], [place] [id number] SP Jun, SP [facility] [address] [id number] [address] [place] [address], [place] [id number] SP Jun, SP [facility] [address] [id number] [address] [place] [address], [place] [id number] SP Jun, SP [facility] [address] [id number] [address] [place] [address], [place] [id number] SP Jun, SP [facility] [address] [id number] [address] [place] [address], [place] [id number] SP Apr, SP [facility] [address] [id number] [address] [place] [address], [place] [id number] SP Apr, SP [facility] [address] [id number] [place] [address], [place] [id number] SP Feb, SP [facility] [address] [id number] [address] [place] [address], [place] [address] SP Feb, SP [facility] [address] [id number] [address] [place] [address], [place] [address] SP Dec, SP [facility] [address] [id number] [address] [place] [address], [place] [address] SP Dec, SP [facility] [address] [id number] [address] [place] [id number] SP Nov, SP [facility] [address] [id number] [facility] [place] [id number] SP Nov, SP [facility] [address] [id number] [address] [place] [address], [place] [address] SP Nov, SP [facility] [address] [id number] [address] [place] [address], [place] [address] SP Oct, SP [facility] [address] [id number] [address] [place] [address], [place] [address] SP September, SP [facility] [address] [id number] [address] [place] [address], [place] [address] SP September, SP [facility] [address] [id number] [address] [place] [address], [place] [address] SP Aug, SP [facility] [address] [id number] [address] [place] [address], [place] [address] SP Aug, SP [facility] [address] [id number] [address] [place] [address], [place] [address] SP Aug, SP [facility] [address] [id number] [address] [place] [address], [place] [address] SP Aug, SP [facility] [address] [id number] [address] [place] [address], [place] [address] SP Aug, SP [facility] [address] [id number] [address] [place] [address], [place] [address] SP Aug, SP [facility] [address] [id number] [address] [place] [address], [place] [address] SP Jul, SP [facility] [address] [id number] [address] [place] [address], [place] [address] SP Jul, SP [facility] [address] [id number] [address] [place] [address], [place] [address] SP Jul, SP [facility] [address] [id number] [address] [place] [address], [place] [address] SP 15 Jul, 2012 SP [facility] [address] [id number] [address] [place] [address], [place] [address] SP 11 Jul, 2012 SP [facility] [address] [id number] [address] [place] [address], [place] [address] SP 07 Jul, 2012 SP [facility] [address] [id number] [address] [place] [address], [place] [address] SP Jun, SP [facility] [address] [id number] [address] [place] [address], [place] [address] SP Jun, SP [facility] [address] [id number] [address] [place] [address], [place] [address] SP May, SP [facility] [address] [id number] [address] [place] [address], [place] [address] SP May, SP [facility] [address] [id number] [address] [place] [address], [place] [address] SP Apr, SP [facility] [address] [id number] [address] [place] [address], [place] [address] SP Apr, SP [facility] [address] [id number] [address] [place] [address], [place] [address] SP Apr, SP [facility] [address] [id number] [address] [place] [address], [place] [address] SP Apr, SP [facility] [address] [id number] [address] [place] [address], [place] [address] SP Apr, SP [facility] [address] [id number] [address] [place] [address], [place] [address] SP Mar, SP [facility] [address] [id number] [address] [place] [address], [place] [address] SP Mar, SP [facility] [address] [id number] [address] [place] [address], [place] [address] SP Mar, SP [facility] [address] [id number] [address] [place] [address], [place] [address] SP Mar, SP [facility] [address] [id number] [address] [place] [address], [place] [address] SP Mar, SP [facility] [address] [id number] [address] [place] [address], [place] [address] SP Mar, SP [facility] [address] [id number] [address] [place] [address], [place] [address] SP Mar, SP [facility] [address] [id number] [address] [place] [address], [place] [address] SP Feb, SP [facility] [address] [id number] [address] [place] [address], [place] [address] SP Feb, SP [facility] [address] [id number] [address] [place] [address], [place] [address] SP Feb, SP [facility] [address] [id number] [address] [place] [address], [place] [address] SP Feb, SP [facility] [address] [id number] [address] [place] [address], [place] [address] SP Dec, SP [facility] [address] [id number] [address] [place] [address], [place] [address] SP Nov, SP [facility] [address] [id number] [address] [place] [address], [place] [address] SP Nov, SP [facility] [address] [id number] [address] [place] [address], [place] [address] SP Oct, SP [facility] [address] [id number] [address] [place] [address], [place] [address] SP Oct, SP [facility] [address] [id number] [address] [place] [address], [place] [address] SP Oct, SP [facility] [address] [id number] [address] [place] [address], [place] [address] SP Oct, SP [facility] [address] [id number] [address] [place] [address], [place] [address] SP Oct, SP [facility] [address] [id number] [address] [place] [address], [place] [address] SP Oct, SP [facility] [address] [id number] [address] [place] [address], [place] [address] SP Oct, SP [facility] [address] [id number] [address] [place] [address], [place] [address] SP Aug, SP [facility] [address] [id number] [address] [place] [address], [place] [address] SP Jul, SP [facility] [address] [id number] [address] [place] [address], [place] [address] SP Jul, SP [facility] [address] [id number] [address] [place] [address], [place] [address] SP Jul, SP [facility] [address] [id number] [address] [place] [address], [place] [address] SP Jul, SP [facility] [address] [id number] [address] [place] [address], [place] [address] SP Jul, SP [facility] [address] [id number] [address] [place] [address], [place] [address] SP Jul, SP [facility] [address] [id number] [address] [place] [address], [place] [address] SP Jul, SP [facility] [address] [id number] [address] [place] [address], [place] [address] SP Jun, SP [facility] [address] [id number] [address] [place] [address], [place] [address] SP May, SP [facility] [address] [id number] [address] [place] [address], [place] [address] SP May, SP [facility] [address] [id number] [address] [place] [id number] SP May, SP [facility] [address] [id number] [address] [place] [address], [place] [address] SP Apr, SP [facility] [address] [id number] [address] [place] [address], [place] [address] SP Apr, SP [facility] [address] [id number] [address] [place] [address], [place] [address] SP Apr, SP [facility] [address] [id number] [address] [place] [address], [place] [address] SP Apr, SP [facility] [address] [id number] [address] [place] [address], [place] [address] SP Apr, SP [facility] [address] [id number] [address] [place] [address], [place] [address] SP Apr, SP [facility] [address] [id number] [address] [place] [address], [place] [address] SP Mar, SP [facility] [address] [id number] [address] [place] [address], [place] [address] SP Mar, SP [facility] [address] [id number] [address] [place] [address], [place] [address] SP Mar, SP [facility] [address] [id number] [address] [place] [address], [place] [address] SP Mar, SP [facility] [address] [id number] [address] [place] [address], [place] [address] SP Mar, SP [facility] [address] [id number] [address] [place] [address], [place] [address] SP Mar, SP [facility] [address] [id number] [address] [place] [address], [place] [address] SP Mar, SP [facility] [address] [id number] [address] [place] [address], [place] [address] SP Dec, SP [facility] [address] [id number] [address] [place] [id number] SP Aug, SP [facility] [address] [facility] [id number] [address] [place] [phone] SP Apr, SP [facility] [address] [id number] [address] [place] [address] SP Mar, SP [facility] [address] [id number] [address] [place] [id number] SP Mar, SP [facility] [address] [id number] [address] [place] [id number] SP Mar, SP [facility] [address] [facility] [id number] [address] [place] [phone] SP Mar, SP [facility] [address] [facility] [id number] [address] [place] [phone] SP September, SP [facility] [address] [facility] [id number] [address] [place] [phone] SP Mar, SP [facility] [address] [facility] [id number] [address] [place] [phone] SP Feb, SP [facility] [address] [facility] [id number] [address] [place] [phone] SP Oct, SP [facility] [address] [facility] [id number] [address] [place] [phone] SP September, SP [facility] [address] [id number] [address] [place] [phone] SP Apr, SP [facility] [address] [facility] [id number] [address] [place] [phone] SP Mar, SP IMMUNIZATIONS No Known Immunizations SOCIAL HISTORY Never Assessed REASON FOR VISIT PLAN OF CARE VITAL SIGNS MEDICATIONS Unknown Medications RESULTS No Results PROCEDURES No Known procedures INSTRUCTIONS MEDICATIONS ADMINISTERED No Known Medications MEDICAL (GENERAL) HISTORY Type Description Date POS Medical History coronary artery disease (seeangelica Smith) SP Medical History hearing loss L [...]
--- OUTSIDE RECORDS SUMMARY | 2019-04-01 02:15 | XMS REPORT ---
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 Name Role Phone POS Migration, Doctor Unavailable Unavailable SP PROBLEMS Type Condition ICD9-CM Code NAR42-CD Code Onset Dates Condition S tatus SNOMED POS Problem Peripheral vascular disease I73.9 Ac tive [id number] POS Problem Urinary, incontinence, stress female N39.3 Active [id number] SP Problem Chronic kidney disease, unspecified N18.9 Active 468825716 SP Problem Dysphagia, unspecified R13.10 Active 42668513 SP Problem Anemia of chronic disease D63.8 Acti ve [id number] SP Problem Cervicalgia M54.2 Active 55104091 96822 SP Problem Essential hypertension I10 Active 12941233 SP Problem 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 692858474 SP Problem Abdominal aortic aneurysm (AAA) without rupture I7 1.4 Active SP Problem Seasonal allergic rhinitis, unspecified allergic rhinitis trigger SP Active 540595535 SP Problem Prediabetes R73.03 Active 20162186 2 SP Problem Mixed hyperlipidemia E78.2 Active 553404027 SP Problem Stenosis of right renal artery I70.1 Active [id number] SP Problem Chronic obstructive pulmonary disease, unspecified COPD ty pe J44.9 SP 23965075 SP Problem Gastroesophageal reflux disease without esophagitis K21.9 Active SP Problem Hepatic steatosis K76.0 Active 19 1516380 SP Problem Renal artery stenosis I70.1 Active 001640704 SP Problem PVD (peripheral vascular disease) I73.9 Active 649714081 SP Problem Arthritis of knee M17.10 Active 37 3459489 SP Problem Other chronic pain G89.29 Active 8 7621468 SP ALLERGIES No Information ENCOUNTERS Encounter Location Date Diagnosis POS [facility] [address] [facility] [id number] [address] [place], [place] SP Oct, Cellulitis of right upper ex tremity L03.113 and Morbid obesity SP [facility] [address] [place] [address] September, Dysuria R30.0 SP Right forearm cellulitis L03.113 [place] [address] [address] SP Jul, Contact dermatitis and other eczema, due to unspecified cause SP ; Morbid obesity E66.01 ; Essential hypertension I10 ; Chronic obstructive pulmonary disease, unspecified COPD type J44.9 ; Chronic kidney disease, unspecified N18.9 and Mixed hyperlipidemia E78.2 [facility] [address] SP Jul, Skin infection L08.9 and Mor bid obesity E66.01 SP [facility] [place] [address] SP Jun, Cellulitis of right arm L03. 113 and BMI 45.0-49.9, adult Z68.42 SP [place] [address] [address] SP May, SP [place] [address] [address] SP May, Chronic obstructive pulmonar y disease, unspecified COPD type SP ; Viral upper respiratory tract infection J06.9 and BMI 45.0-49.9, adult Z68.42 [place] [address] [address] [place] [id number] [address] [place] [address] SP Mar, BMI 45.0-49.9, adult Z68.42 ; Chronic urticaria L50.8 and Skin SP L08.9 [place] [address] [address] [place] [id number] [address] [place] [address] SP Mar, Dermatitis L30.9 and BMI 45. 0-49.9, adult Z68.42 SP [place] [address] [address] [place] [id number] [address] [place] [address] SP Feb, Cellulitis of right upper ex tremity L03.113 and BMI 45.0-49.9, SP Z68.42 [place] [address] [address] SP Feb, Cellulitis of right arm L03. 113 and Status post cardiac SP Z98.890 [place] [address] [address] SP Feb, SP [place] [address] [address] SP Feb, Chronic obstructive pulmonar y disease, unspecified COPD type SP ; Essential hypertension I10 ; Encounter for immunization Z23 ; Mixed hyperlipidemia E78.2 and BMI 45.0-49.9, adult Z68.42 [place] [address] [address] SP Feb, Dysuria R30.0 ; Acute cystit is without hematuria N30.00 and BMI SP49.9, adult Z68.42 [place] [address] [address] SP Dec, SP [place] [address] [address] SP Dec, Essential hypertension I10 ; Chronic kidney disease, unspecified SP ; Mixed hyperlipidemia E78.2 ; Tinea corporis B35.4 ; Right hip pain M25.551 and Acute pain of right knee M25.561 [place] [address] [address] SP Dec, Herpes zoster without compli cation B02.9 ; Dandruff L21.0 ; SP unspecified type R19.7 and BMI 45.0-49.9, adult Z68.42 [place] [address] [address] SP September, Chronic kidney disease, unsp ecified N18.9 ; Essential SP I10 ; Mixed hyperlipidemia E78.2 and BMI 45.0-49.9, adult Z68.42 [place] [address] [address] SP September, SP [place] [address] [address] SP September, Essential hypertension I10 ; Chronic kidney disease, unspecified SP ; Prediabetes R73.03 ; Low back pain M54.5 ; Other chronic pain G89.29 ; Arthritis of knee M17.10 ; Pure hyperglyceridemia E78.1 ; Anemia of chronic disease D63.8 and BMI 45.0-49.9, adult Z68.42 [place] [address] [address] SP Aug, SP [place] [address] [address] SP Jul, Abdominal aortic aneurysm (A AA) without rupture I71.4 ; PVD SP vascular disease) I73.9 ; Renal artery stenosis I70.1 and Essential hypertension I10 [place] [address] [address] SP May, Essential hypertension I10 ; Pure hyperglyceridemia E78.1 ; SP aortic aneurysm (AAA) without rupture I71.4 ; Chronic kidney disease, unspecified N18.9 ; Gastroesophageal reflux disease without esophagitis K21.9 ; 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 ; Stenosis of right renal artery I70.1 ; Anemia of chronic disease D63.8 and Prediabetes R73.03 [place] [address] [address] SP May, Tinea corporis B35.4 and Vir al URI J06.9 SP [place] [address] [address] SP May, SP [place] [address] [address] SP Apr, SP [place] [address] [address] SP Apr, Cervical radiculopathy M54.1 2 SP [facility] [address] [facility] [id number] [address] [place] [address] SP Apr, Flank pain R10.9 and Acute p yelonephritis N10 SP [facility] [address] [facility] [id number] [address] [place] [address] SP Apr, SP [facility] [address] [address] SP Mar, SP [facility] [address] [facility] [id number] [address] [place] [address] SP Feb, Pain of right shoulder regio n M25.511 SP [facility] [address] [place] [id number] [address] [place] [address] SP Feb, History of glaucoma Z86.69 ; Vision changes H53.9 ; Abdominal SP aneurysm (AAA) without rupture I71.4 ; Xerosis of skin L85.3 and Pain in right shoulder M25.511 [facility] [address] [place] [id number] [address] [place] [address] SP Feb, SP [facility] [address] [place] [id number] [address] [place] [address] SP Jan, Essential hypertension I10 ; Pure hyperglyceridemia E78.1 ; SP kidney disease, unspecified N18.9 ; Gastroesophageal reflux disease without esophagitis K21.9 ; 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 ; Stenosis of right renal artery I70.1 ; Anemia of chronic disease D63.8 ; Prediabetes R73.03 ; Pain of right shoulder region M25.511 and Homeless Z59.0 [place] [address] [address] [place] [id number] [address] [place] [address] SP Jan, Neck pain M54.2 and Seasonal allergic rhinitis, unspecified SP rhinitis trigger J30.2 [facility] [address] [place] [id number] [address] [place] [address] SP Dec, SP [facility] [address] [place] [id number] [place] [address] SP Dec, SP [place] [address] [address] [place] [id number] [place] [address] SP Dec, Blood glucose abnormal R73.0 9 [...] H. pylori infection A04.8 and Prediabetes R73.03 [facility] [address] SP Oct, Seasonal allergic rhinitis, unspecified allergic rhinitis SP J30.2 [place] [address] [address] SP September, Eustachian tube dysfunction, left H69.82 and Candidiasis of SP B37.89 [place] [address] [address] [place] [id number] [address] [place] [address] SP Jul, Blood glucose abnormal R73.0 9 ; Essential hypertension I10 ; Pure SPhyperglyceridemia E78.1 ; Chronic kidney disease, unspecified N18.9 ; Gastroesophageal reflux disease without esophagitis K21.9 ; 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 ; Abdominal aortic aneurysm (AAA) without rupture I71.4 ; Stenosis of right renal artery I70.1 ; Anemia of chronic disease D63.8 and Acute non-recurrent maxillary sinusitis J01.00 [place] [address] [address] [place] [id number] [address] [place] [address] SP Jun, Acute non-recurrent maxillar y sinusitis J01.00 ; Acute mucoid SP media of left ear H65.112 ; Nausea R11.0 and Fever and chills R50.9 [place] [address] [address] [place] [id number] [address] [place] [address] SP May, Acute right flank pain R10.9 SP [facility] [address] [facility] [id number] [address] [place] [address] SP Apr, Acute nasopharyngitis J00 ; Pure hyperglyceridemia E78.1 and SP kidney disease, unspecified N18.9 [facility] [address] [facility] [id number] [address] [place] [address] SP Apr, SP [facility] [address] [facility] [id number] [address] [place] [address] SP Apr, Blood glucose abnormal R73.0 9 ; Essential hypertension I10 ; Pure SPhyperglyceridemia E78.1 ; Chronic kidney disease, unspecified N18.9 ; Gastroesophageal reflux disease without esophagitis K21.9 ; 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 ; Abdominal aortic aneurysm (AAA) without rupture I71.4 ; Stenosis of right renal artery I70.1 ; RUQ pain R10.11 and Anemia of chronic disease D63.8 [facility] [address] [facility] [id number] [address] [place] [address] SP Mar, Blood glucose abnormal R73.0 9 SP [facility] [address] [facility] [id number] [address] [place] [address] SP Mar, Cellulitis of right lower le g L03.115 SP [facility] [address] [facility] [id number] [address] [place] [address] SP Feb, SP [facility] [address] [place] [id number] [address] [place] [address] SP Feb, Dysuria R30.0 and Upper resp iratory tract infection, unspecified SP J06.9 [facility] [address] [facility] [id number] [address] [place] [address] SP Jan, SP [facility] [address] [facility] [id number] [address] [place] [address] SP Jan, SP [facility] [address] [place] [id number] [address] [place] [address] SP Dec, SP [place] [address] [address] [place] [id number] [place] [address] SP Dec, Anemia of chronic disease D6 3.8 ; Essential hypertension I10 ; SP hyperglyceridemia E78.1 ; Chronic kidney disease, unspecified N18.9 ; Gastroesophageal reflux disease without esophagitis K21.9 ; 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 and Pain in right knee M25.[address] [address] SP Dec, Left shoulder strain, subseq uent encounter S46.912D ; Urinary SP R35.0 ; Lung nodule, solitary R91.1 ; Essential hypertension I10 and Acute cystitis without hematuria N30.[address] [address] SP Nov, Left-sided chest wall pain R 07.89 and Abnormal chest xray R93.[address] [address] SP Nov, Pain of right lower extremit y M79.604 ; Swelling of right lower SP M79.89 ; Diarrhea, unspecified R19.7 ; Nausea with vomiting, unspecified R11.2 ; Left-sided chest wall pain R07.89 ; Chronic kidney disease, unspecified N18.9 ; Gastroesophageal reflux disease without esophagitis K21.9 and Other seasonal allergic rhinitis J30.[address] [address] SP September, Essential hypertension I10 ; Chronic kidney disease, unspecified SP ; Anemia of chronic disease D63.8 ; Pure hyperglyceridemia E78.1 ; Peripheral vascular disease I73.9 ; Abnormal glucose R73.09 ; 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 ; Gastroesophageal reflux disease without esophagitis K21.9 ; Allergic rhinitis J30.9 and Rash R21 [place] [id number] [address] [place] [address] SP Aug, Abdominal pain R10.9 and Con stipation K59.00 SP [place] [address] [address] [place] [id number] [address] [place] [address] SP Jul, Injury of toe on right foot S99.921A SP [place] [address] [address] [place] [id number] [address] [place] [address] SP 14 Jul, 2015 SP [place] [address] [place] [id number] [place] [address] SP Jul, Essential hypertension I10 ; Chronic kidney disease, unspecified SP ; Anemia of chronic disease D63.8 ; Pure hyperglyceridemia E78.1 ; Peripheral vascular disease I73.9 ; Abnormal glucose R73.09 ; 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 ; Gastroesophageal reflux disease without esophagitis K21.9 and Allergic rhinitis J30.9 [place] [address] [address] [place] [id number] [address] [place] [address] SP Jun, Low back pain M54.5 SP [place] [address] [address] [place] [id number] [place] [address] SP Jun, SP [place] [address] [address] [place] [id number] [place] [address] SP May, URI (upper respiratory infec tion) J06.9 SP [place] [address] [address] [place] [id number] [address] [place] [address] SP Apr, Essential hypertension I10 SP [place] [address] [address] [place] [id number] [place] [address] SP Apr, Essential hypertension I10 ; Chronic kidney disease, unspecified SP ; Anemia of chronic disease D63.8 ; Pure hyperglyceridemia E78.1 ; Peripheral vascular disease I73.9 ; Abnormal glucose R73.09 ; URI (upper respiratory infection) J06.9 ; 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 ; Gastroesophageal reflux disease without esophagitis K21.9 and Cough R05 [place] [address] [facility] [id number] [address] [place] [address] SP Mar, Flank pain R10.9 and URI (up per respiratory infection) J06.9 SP [facility] [address] [address] SP Mar, Right-sided low back pain wi thout sciatica M54.5 and Hematuria, SP R31.9 [place] [address] [address] SP Mar, Hypopigmentation L81.9 and H yperpigmentation L81.9 SP [place] [address] [address] SP Mar, SP [place] [address] [address] SP Mar, Acute cystitis with hematuri a N30.01 SP [place] [address] [address] SP Mar, SP [place] [address] [address] SP Feb, Furuncle L02.92 ; Hypopigmen tation L81.9 ; Hyperpigmentation SP ; Urinary frequency R35.0 ; Screening for malignant neoplasm of cervix Z12.4 ; Vaginal discharge N89.8 ; Urinary, incontinence, stress female N39.3 and Vaginal irritation N89.8 [place] [address] [address] SP Jan, Muscle spasm 728.85 ; Unspec ified peripheral vascular disease SP ; Benign essential hypertension 401.1 ; Chronic renal insufficiency 585.9 ; Chronic constipation 564.00 ; GERD (gastroesophageal reflux disease) 530.81 ; Hyperlipidemia 272.4 and Chronic leg pain 729.5 [place] [address] [address] SP Jan, Sinusitis 473.9 SP [place] [address] [address] SP Dec, [place] [address] [address] [place] [id number] [address] [place] [address] SP Dec, Acute bronchitis 466.0 [place] [address] [address] SP Dec, Acute bronchitis 466.0 SP [place] [address] [address] SP Dec, Unspecified episodic mood di sorder 296.90 [place] [address] [address] SP Dec, Visit for suture removal V58 .[address] [address] SP Nov, Allergic rhinitis 477.9 and Onychomycosis 110.1 [place] [address] [address] SP Oct, Muscle spasm 728.85 ; Benign essential hypertension 401.1 ; SP renal insufficiency 585.9 ; Chronic constipation 564.00 ; GERD (gastroesophageal reflux disease) 530.81 and Hyperlipidemia 272.4 [place] [address] [address] [place] [id number] [address] [place] [address] SP Oct, Otalgia of left ear 388.70 [place] [address] [address] SP Oct, Unspecified episodic mood di sorder 296.90 [place] [address] [place] [id number] [address] [place] [address] SP September, Unspecified episodic mood di sorder 296.90 [place] [address] [address] SP September, Unspecified episodic mood di sorder 296.90 [facility] [place] [address] [place] [id number] [place] [address] SP September, Urinary frequency 788.41 and Constipation 564.00 SP [facility] [address] [id number] [address] [place] [address], [place] [address] SP 14 Aug, 2014 SP [facility] [address] [id number] [address] [place] [address], [place] [address] SP 13 Aug, 2014 SP [facility] [address] [id number] [address] [place] [address], [place] [address] SP Jul, SP [facility] [address] [id number] [address] [place] [address], [place] [address] SP Jul, SP [facility] [address] [id number] [address] [place] [address], [place] [address] SP Jul, SP [facility] [address] [id number] [address] [place] [address], [place] [address] SP Jul, SP [facility] [address] [id number] [address] [place] [address] SP Jul, SP [facility] [address] [id number] [address] [place] [address], [place] [address] SP Jul, SP [facility] [address] [id number] [address] [place] [address], [place] [address] SP Jul, SP [facility] [address] [id number] [address] [place] [address], [place] [address] SP Jul, SP [facility] [address] [id number] [address] [place] [address], [place] [address] SP Jul, SP [facility] [address] [id number] [address] [place] [address], [place] [address] SP Jul, SP [facility] [address] [id number] [address] [place] [address], [place] [address] SP Jun, SP [facility] [address] [id number] [address] [place] [address] SP Jun, SP [facility] [address] [id number] [address] [place] [address] SP May, SP [facility] [address] [id number] [address] [place] [address], [place] [address] SP May, SP [facility] [address] [id number] [address] [place] [address], [place] [address] SP May, SP [facility] [address] [id number] [address] [place] [address], [place] [address] SP May, SP [facility] [address] [id number] [address] [place] [address], [place] [address] SP May, SP [facility] [address] [id number] [address] [place] [address], [place] [address] SP May, SP [facility] [address] [id number] [address] [place] [address], [place] [address] SP May, SP [facility] [address] [id number] [address] [place] [address], [place] [address] SP May, SP [facility] [address] [id number] [address] [place] [address], [place] [address] SP May, SP [facility] [address] [id number] [address] [place] [address], [place] [address] SP May, SP [facility] [address] [id number] [address] [place] [address], [place] [address] SP May, SP [facility] [address] [id number] [address] [place] [address], [place] [address] SP May, SP [facility] [address] [id number] [address] [place] [address], [place] [address] SP May, SP [facility] [address] [id number] [address] [place] [address], [place] [address] SP Feb, SP [facility] [address] [id number] [address] [place] [address], [place] [address] SP Feb, SP [facility] [address] [id number] [address] [place] [address] SP 20 Sep, 2013 SP [facility] [address] [id number] [address] [place] [address], [place] [address] SP 20 Sep, 2013 SP [facility] [address] [id number] [address] [place] [address], [place] [address] SP 18 Sep, 2013 SP [facility] [address] [id number] [address] [place] [address], [place] [address] SP 18 Sep, 2013 SP [facility] [address] [id number] [address] [place] [address], [place] [address] SP 12 Jan, 2013 SP [facility] [address] [id number] [address] [place] [address], [place] [address] SP 12 Jan, 2013 SP [facility] [address] [id number] [address] [place] [address], [place] [address] SP 12 Jan, 2013 SP [facility] [address] [id number] [address] [place] [address], [place] [address] SP 12 Jan, 2013 SP [facility] [address] [id number] [address] [place] [address], [place] [address] SP 11 Jan, 2013 SP [facility] [address] [id number] [address] [place] [address], [place] [address] SP 11 Jan, 2013 SP [facility] [address] [id number] [address] [place] [address], [place] [address] SP 10 Jan, 2013 SP [facility] [address] [id number] [address] [place] [address], [place] [address] SP 10 Jan, 2013 SP [facility] [address] [id number] [address] [place] [address], [place] [address] SP Oct, SP [facility] [address] [id number] [address] [place] [address], [place] [address] SP Oct, SP [facility] [address] [id number] [address] [place] [address], [place] [address] SP Oct, SP [facility] [address] [id number] [address] [place] [address], [place] [address] SP Oct, SP [facility] [address] [id number] [address] [place] [address], [place] [address] SP Jun, SP [facility] [address] [id number] [address] [place] [address], [place] [address] SP Jun, SP [facility] [address] [id number] [address] [place] [address], [place] [address] SP Jun, SP [facility] [address] [id number] [address] [place] [address], [place] [address] SP Jun, SP [facility] [address] [id number] [address] [place] [address], [place] [address] SP Apr, SP [facility] [address] [id number] [address] [place] [address], [place] [address] SP Apr, SP [facility] [address] [id number] [address] [place] [address], [place] [address] SP Feb, SP [facility] [address] [id number] [address] [place] [address], [place] [address] SP Feb, SP [facility] [address] [id number] [address] [place] [address], [place] [address] SP Dec, SP [facility] [address] [id number] [address] [place] [address], [place] [address] SP Dec, SP [facility] [address] [id number] [address] [place] [address], [place] [address] SP Nov, SP [facility] [address] [address] [id number] [address] [place] [address], [place] [address] SP Nov, SP [facility] [address] [id number] [address] [place] [address], [place] [address] SP Nov, SP [facility] [address] [id number] [address] [place] [address], [place] [address] SP Oct, SP [facility] [address] [id number] [address] [place] [address], [place] [address] SP September, SP [facility] [address] [id number] [address] [place] [address], [place] [address] SP September, SP [facility] [address] [id number] [address] [place] [address], [place] [address] SP Aug, SP [facility] [address] [id number] [address] [place] [address], [place] [address] SP Aug, SP [facility] [address] [id number] [address] [place] [address], [place] [address] SP Aug, SP [facility] [address] [id number] [address] [place] [address], [place] [address] SP Aug, SP [facility] [address] [id number] [address] [place] [address], [place] [address] SP Aug, SP [facility] [address] [id number] [address] [place] [address], [place] [address] SP Aug, SP [facility] [address] [id number] [address] [place] [address], [place] [address] SP Jul, SP [facility] [address] [id number] [address] [place] [address], [place] [address] SP Jul, SP [facility] [address] [id number] [address] [place] [address], [place] [address] SP Jul, SP [facility] [address] [id number] [address] [place] [address], [place] [address] SP 15 Jul, 2012 SP [facility] [address] [id number] [address] [place] [address], [place] [address] SP Jul, SP [facility] [address] [id number] [address] [place] [address], [place] [address] SP Jul, SP [facility] [address] [id number] [address] [place] [address], [place] [address] SP Jun, SP [facility] [address] [id number] [address] [place] [address], [place] [address] SP Jun, SP [facility] [address] [id number] [address] [place] [address], [place] [address] SP May, SP [facility] [address] [id number] [address] [place] [address], [place] [address] SP May, SP [facility] [address] [id number] [address] [place] [address], [place] [address] SP Apr, SP [facility] [address] [id number] [address] [place] [address], [place] [address] SP Apr, SP [facility] [address] [id number] [address] [place] [address], [place] [address] SP Apr, SP [facility] [address] [id number] [address] [place] [address], [place] [address] SP Apr, SP [facility] [address] [id number] [address] [place] [address], [place] [address] SP Apr, SP [facility] [address] [id number] [address] [place] [address], [place] [address] SP Mar, SP [facility] [address] [id number] [address] [place] [address], [place] [address] SP Mar, SP [facility] [address] [id number] [address] [place] [address], [place] [address] SP Mar, SP [facility] [address] [id number] [address] [place] [address], [place] [address] SP Mar, SP [facility] [address] [id number] [address] [place] [address], [place] [address] SP Mar, SP [facility] [address] [id number] [address] [place] [address], [place] [address] SP Mar, SP [facility] [address] [id number] [address] [place] [address], [place] [address] SP Mar, SP [facility] [address] [id number] [address] [place] [address], [place] [address] SP Feb, SP [facility] [address] [id number] [address] [place] [address], [place] [address] SP Feb, SP [facility] [address] [id number] [address] [place] [address], [place] [address] SP Feb, SP [facility] [address] [id number] [address] [place] [address], [place] [address] SP Feb, SP [facility] [address] [id number] [address] [place] [address], [place] [address] SP Dec, SP [facility] [address] [id number] [address] [place] [address], [place] [address] SP Nov, SP [facility] [address] [id number] [address] [place] [address], [place] [address] SP Nov, SP [facility] [address] [id number] [address] [place] [address], [place] [address] SP Oct, SP [facility] [address] [id number] [address] [place] [address], [place] [address] SP Oct, SP [facility] [address] [id number] [address] [place] [address], [place] [address] SP Oct, SP [facility] [address] [id number] [address] [place] [address], [place] [address] SP Oct, SP [facility] [address] [id number] [address] [place] [address], [place] [address] SP Oct, SP [facility] [address] [id number] [address] [place] [address], [place] [address] SP Oct, SP [facility] [address] [id number] [address] [place] [address], [place] [address] SP Oct, SP [facility] [address] [id number] [address] [place] [address], [place] [address] SP Aug, SP [facility] [address] [id number] [address] [place] [address], [place] [address] SP Jul, SP [facility] [address] [id number] [address] [place] [address], [place] [address] SP Jul, SP [facility] [address] [id number] [address] [place] [address], [place] [address] SP Jul, SP [facility] [address] [id number] [address] [place] [address], [place] [address] SP Jul, SP [facility] [address] [id number] [address] [place] [address], [place] [address] SP Jul, SP [facility] [address] [id number] [address] [place] [address], [place] [address] SP Jul, SP [facility] [address] [id number] [address] [place] [address], [place] [address] SP Jul, SP [facility] [address] [id number] [address] [place] [address], [place] [address] SP Jun, SP [facility] [address] [id number] [address] [place] [address], [place] [address] SP May, SP [facility] [address] [id number] [address] [place] [address], [place] [address] SP May, SP [facility] [address] [id number] [address] [place] [address], [place] [address] SP May, SP [facility] [address] [id number] [address] [place] [address], [place] [address] SP Apr, SP [facility] [address] [id number] [address] [place] [address], [place] [address] SP Apr, SP [facility] [address] [id number] [address] [place] [address], [place] [address] SP Apr, SP [facility] [address] [id number] [address] [place] [address], [place] [address] SP Apr, SP [facility] [address] [id number] [address] [place] [address], [place] [address] SP Apr, SP [facility] [address] [id number] [address] [place] [address], [place] [address] SP Apr, SP [facility] [address] [id number] [address] [place] [address], [place] [address] SP Mar, SP [facility] [address] [id number] [address] [place] [address], [place] [address] SP Mar, SP [facility] [address] [id number] [address] [place] [address], [place] [address] SP Mar, SP [facility] [address] [id number] [address] [place] [address], [place] [address] SP Mar, SP [facility] [address] [id number] [address] [place] [address], [place] [address] SP Mar, SP [facility] [address] [id number] [address] [place] [address], [place] [address] SP Mar, SP [facility] [address] [id number] [address] [place] [address], [place] [address] SP Mar, SP [facility] [address] [id number] [address] [place] [address], [place] [address] SP Dec, SP [facility] [address] [id number] [address] [place] [address], [place] [address] SP Aug, SP [facility] [address] [id number] [address] [place] [address], [place] [address] SP Apr, SP [facility] [address] [id number] [address] [place] [address], [place] [address] SP Mar, SP [facility] [address] [id number] [address] [place] [address] SP Mar, SP [facility] [address] [id number] [address] [place] [address] SP Mar, SP [facility] [address] [facility] [id number] [address] [place] [address] SP Mar, SP [facility] [address] [id number] [address] [place] [address] SP September, SP [facility] [address] [facility] [place] [id number] [address] [place] [address] SP Mar, SP [facility] [address] [facility] [place] [id number] [address] [place] [address] SP Feb, SP [facility] [address] [facility] [place] [id number] [address] [place] [id number] SP Oct, SP [facility] [address] [facility] [place] [id number] [address] [place] [address] SP September, SP [facility] [address] [facility] [place] [id number] [address] [place] [address] SP Apr, SP [facility] [address] [facility] [id number] [address] [place] [address] SP Mar, SP IMMUNIZATIONS No Known Immunizations SOCIAL HISTORY Never Assessed REASON FOR VISIT PLAN OF CARE VITAL SIGNS MEDICATIONS Unknown Medications RESULTS No Results PROCEDURES No Known procedures INSTRUCTIONS MEDICATIONS ADMINISTERED No Known Medications MEDICAL (GENERAL) HISTORY Type Description Date POS Medical History coronary artery disease (sees Sarah) SP Medical History hearing loss L ear [...]
--- OUTSIDE RECORDS SUMMARY | 2019-04-01 02:16 | XMS REPORT ---
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 Name Role Phone POS NEERAJ Isbell Unavailable SP PROBLEMS Type Condition ICD9-CM Code [id number] Code Onset Dates Condition S tatus SNOMED POS Problem Peripheral vascular disease I73.9 Ac tive [id number] POS Problem Urinary, incontinence, stress female N39.3 Active 36509026 SP Problem Chronic kidney disease, unspecified N18.9 Active 920556218 SP Problem Dysphagia, unspecified R13.10 Active 92244322 SP Problem Anemia of chronic disease D63.8 Acti ve [id number] SP Problem Cervicalgia M54.2 Active 57731069 82031 SP Problem Essential hypertension I10 Active 49142363 SP Problem 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 594676763 SP Problem Abdominal aortic aneurysm (AAA) without rupture I7 1.4 Active SP Problem Seasonal allergic rhinitis, unspecified allergic rhinitis trigger SP Active 522673533 SP Problem Prediabetes R73.03 Active 08808671 2 SP Problem Mixed hyperlipidemia E78.2 Active 811158783 SP Problem Stenosis of right renal artery I70.1 Active [id number] SP Problem Chronic obstructive pulmonary disease, unspecified COPD ty pe J44.9 SP 62374678 SP Problem Gastroesophageal reflux disease without esophagitis K21.9 Active SP Problem Hepatic steatosis K76.0 Active 19 2448763 SP Problem Renal artery stenosis I70.1 Active 130356099 SP Problem PVD (peripheral vascular disease) I73.9 Active 999424560 SP Problem Arthritis of knee M17.10 Active 37 8951835 SP Problem Other chronic pain G89.29 Active 8 0137344 SP ALLERGIES No Information ENCOUNTERS Encounter Location Date Diagnosis POS [facility] [address] [facility] [id number] [address] [place] [address] SP Oct, Cellulitis of right upper ex tremity L03.113 and Morbid obesity SP [facility] [address] [place] [address] September, Dysuria R30.0 SP Right forearm cellulitis L03.113 [place] [address] [place] [id number] [place] [address] SP Jul, Contact dermatitis and other eczema, due to unspecified cause SP ; Morbid obesity E66.01 ; Essential hypertension I10 ; Chronic obstructive pulmonary disease, unspecified COPD type J44.9 ; Chronic kidney disease, unspecified N18.9 and Mixed hyperlipidemia E78.2 [facility] [place] [address] SP Jul, Skin infection L08.9 and Mor bid obesity E66.01 SP [facility] [place] [address] SP Jun, Cellulitis of right arm L03. 113 and BMI 45.0-49.9, adult Z68.42 SP [place] [address] [place] [id number] [place] [address] SP May, SP [place] [address] [address] SP May, Chronic obstructive pulmonar y disease, unspecified COPD type SP ; Viral upper respiratory tract infection J06.9 and BMI 45.0-49.9, adult Z68.42 [place] [address] [place] [id number] [place] [address] SP Mar, BMI 45.0-49.9, adult Z68.42 ; Chronic urticaria L50.8 and Skin SP L08.9 [place] [address] [address] [place] [id number] [address] [place] [address] SP Mar, Dermatitis L30.9 and BMI 45. 0-49.9, adult Z68.42 SP [place] [address] [address] SP Feb, Cellulitis of right upper ex tremity L03.113 and BMI 45.0-49.9, SP Z68.42 [place] [address] [address] SP Feb, Cellulitis of right arm L03. 113 and Status post cardiac SP Z98.890 [place] [address] [address] SP Feb, SP [place] [address] [address] SP Feb, Chronic obstructive pulmonar y disease, unspecified COPD type SP ; Essential hypertension I10 ; Encounter for immunization Z23 ; Mixed hyperlipidemia E78.2 and BMI 45.0-49.9, adult Z68.42 [place] [address] [address] SP Feb, Dysuria R30.0 ; Acute cystit is without hematuria N30.00 and BMI SP49.9, adult Z68.42 [place] [address] [address] SP Dec, SP [place] [address] [address] SP Dec, Essential hypertension I10 ; Chronic kidney disease, unspecified SP ; Mixed hyperlipidemia E78.2 ; Tinea corporis B35.4 ; Right hip pain M25.551 and Acute pain of right knee M25.561 [place] [address] [address] SP Dec, Herpes zoster without compli cation B02.9 ; Dandruff L21.0 ; SP unspecified type R19.7 and BMI 45.0-49.9, adult Z68.42 [place] [address] [address] SP September, Chronic kidney disease, unsp ecified N18.9 ; Essential SP I10 ; Mixed hyperlipidemia E78.2 and BMI 45.0-49.9, adult Z68.42 [place] [address] [place] [id number] [place] [address] SP September, SP [place] [address] [place] [id number] [place] [phone] SP September, Essential hypertension I10 ; Chronic kidney disease, unspecified SP ; Prediabetes R73.03 ; Low back pain M54.5 ; Other chronic pain G89.29 ; Arthritis of knee M17.10 ; Pure hyperglyceridemia E78.1 ; Anemia of chronic disease D63.8 and BMI 45.0-49.9, adult Z68.42 [place] [address] [place] [id number] [place] [address] SP Aug, SP [place] [address] [place] [id number] [place] [address] SP Jul, Abdominal aortic aneurysm (A AA) without rupture I71.4 ; PVD SP vascular disease) I73.9 ; Renal artery stenosis I70.1 and Essential hypertension I10 [place] [address] [place] [id number] [place] [address] SP May, Essential hypertension I10 ; Pure hyperglyceridemia E78.1 ; SP aortic aneurysm (AAA) without rupture I71.4 ; Chronic kidney disease, unspecified N18.9 ; Gastroesophageal reflux disease without esophagitis K21.9 ; 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 ; Stenosis of right renal artery I70.1 ; Anemia of chronic disease D63.8 and Prediabetes R73.03 [place] [address] [place] [id number] [address] [place] [address] SP May, Tinea corporis B35.4 and Vir al URI J06.9 SP [place] [address] [place] [id number] [address] [place] [phone] SP May, SP [place] [address] [place] [id number] [place] [address] SP Apr, [facility] [address] [place] [id number] [place] [address] SP Apr, Cervical radiculopathy M54.1 2 [facility] [address] SP Apr, Flank pain R10.9 and Acute p yelonephritis N10 SP [facility] [address] [address] SP Apr, SP [facility] [address] [address] SP Mar, [facility] [address] [address] SP Feb, Pain of right shoulder regio n M25.511 [facility] [address] [address] SP Feb, History of glaucoma Z86.69 ; Vision changes H53.9 ; Abdominal SP aneurysm (AAA) without rupture I71.4 ; Xerosis of skin L85.3 and Pain in right shoulder M25.511 [facility] [address] [address] SP Feb, [facility] [address] [place] [id number] [place] [address] SP Jan, Essential hypertension I10 ; Pure hyperglyceridemia E78.1 ; SP kidney disease, unspecified N18.9 ; Gastroesophageal reflux disease without esophagitis K21.9 ; 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 ; Stenosis of right renal artery I70.1 ; Anemia of chronic disease D63.8 ; Prediabetes R73.03 ; Pain of right shoulder region M25.511 and Homeless Z59.0 [facility] [address] [place] [id number] [place] [address] SP Jan, Neck pain M54.2 and Seasonal allergic rhinitis, unspecified SP rhinitis trigger J30.2 [facility] [address] [place] [id number] [place] [address] SP Dec, SP [place] [address] [address] SP Dec, SP [place] [address] [place] [id number] [address] [place] [address] SP Dec, Blood glucose abnormal R73.0 9 [...] H. pylori infection A04.8 and Prediabetes R73.03 [facility] [address] SP Oct, Seasonal allergic rhinitis, unspecified allergic rhinitis SP J30.2 [place] [address] [address] SP September, Eustachian tube dysfunction, left H69.82 and Candidiasis of SP B37.89 [place] [address] [place] [id number] [place] [address] SP Jul, Blood glucose abnormal R73.0 9 ; Essential hypertension I10 ; Pure SPhyperglyceridemia E78.1 ; Chronic kidney disease, unspecified N18.9 ; Gastroesophageal reflux disease without esophagitis K21.9 ; 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 ; Abdominal aortic aneurysm (AAA) without rupture I71.4 ; Stenosis of right renal artery I70.1 ; Anemia of chronic disease D63.8 and Acute non-recurrent maxillary sinusitis J01.00 [place] [address] [place] [id number] [address] [place] [phone] SP Jun, Acute non-recurrent maxillar y sinusitis J01.00 ; Acute mucoid SP media of left ear H65.112 ; Nausea R11.0 and Fever and chills R50.9 [facility] [address] [facility] [id number] [address] [place] [address] SP May, Acute right flank pain R10.9 SP [facility] [address] [facility] [id number] [address] [place] [address] SP Apr, Acute nasopharyngitis J00 ; Pure hyperglyceridemia E78.1 and SP kidney disease, unspecified N18.9 [place] [address] [facility] [id number] [address] [place] [address] SP Apr, [facility] [address] [facility] [id number] [place] [phone] SP Apr, Blood glucose abnormal R73.0 9 ; Essential hypertension I10 ; Pure SPhyperglyceridemia E78.1 ; Chronic kidney disease, unspecified N18.9 ; Gastroesophageal reflux disease without esophagitis K21.9 ; 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 ; Abdominal aortic aneurysm (AAA) without rupture I71.4 ; Stenosis of right renal artery I70.1 ; RUQ pain R10.11 and Anemia of chronic disease D63.8 [place] [address] [address] [facility] [id number] [address] [place] [address] SP Mar, Blood glucose abnormal R73.0 9 [facility] [address] [facility] [id number] [address] [place] [address] SP Mar, Cellulitis of right lower le g L03.115 [facility] [address] [facility] [id number] [address] [place] [address] SP Feb, [facility] [address] [facility] [id number] [address] [place] [address] SP Feb, Dysuria R30.0 and Upper resp iratory tract infection, unspecified SP J06.9 [facility] [address] [facility] [id number] [address] [place] [address] SP Jan, SP [facility] [address] [place] [id number] [address] [place] [address] SP Jan, SP [place] [address] [place] [id number] [address] [place] [phone] SP Dec, SP [place] [address] [place] [id number] [place] [address] SP Dec, Anemia of chronic disease D6 3.8 ; Essential hypertension I10 ; SP hyperglyceridemia E78.1 ; Chronic kidney disease, unspecified N18.9 ; Gastroesophageal reflux disease without esophagitis K21.9 ; 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 and Pain in right knee M25.561 [place] [address] [place] [id number] [address] [place] [address] SP Dec, Left shoulder strain, subseq uent encounter S46.912D ; Urinary SP R35.0 ; Lung nodule, solitary R91.1 ; Essential hypertension I10 and Acute cystitis without hematuria N30.00 [place] [address] [place] [id number] [place] [address] SP Nov, Left-sided chest wall pain R 07.89 and Abnormal chest xray R93.8 SP [place] [address] [place] [id number] [address] [place] [address] SP Nov, Pain of right lower extremit y M79.604 ; Swelling of right lower SP M79.89 ; Diarrhea, unspecified R19.7 ; Nausea with vomiting, unspecified R11.2 ; Left-sided chest wall pain R07.89 ; Chronic kidney disease, unspecified N18.9 ; Gastroesophageal reflux disease without esophagitis K21.9 and Other seasonal allergic rhinitis J30.2 [place] [address] [place] [id number] [address] [place] [address] SP September, Essential hypertension I10 ; Chronic kidney disease, unspecified SP ; Anemia of chronic disease D63.8 ; Pure hyperglyceridemia E78.1 ; Peripheral vascular disease I73.9 ; Abnormal glucose R73.09 ; 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 ; Gastroesophageal reflux disease without esophagitis K21.9 ; Allergic rhinitis J30.9 and Rash R21 [place] [address] [address] SP Aug, Abdominal pain R10.9 and Con stipation K59.00 SP [place] [address] [address] SP Jul, Injury of toe on right foot S99.921A SP [place] [address] [address] SP Jul, SP [place] [address] [address] SP Jul, Essential hypertension I10 ; Chronic kidney disease, unspecified SP ; Anemia of chronic disease D63.8 ; Pure hyperglyceridemia E78.1 ; Peripheral vascular disease I73.9 ; Abnormal glucose R73.09 ; 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 ; Gastroesophageal reflux disease without esophagitis K21.9 and Allergic rhinitis J30.9 [place] [address] [address] SP Jun, Low back pain M54.5 SP [place] [address] [address] SP Jun, SP [place] [address] [address] SP May, URI (upper respiratory infec tion) J06.9 SP [place] [address] [address] SP Apr, Essential hypertension I10 SP [place] [address] [address] SP Apr, Essential hypertension I10 ; Chronic kidney disease, unspecified SP ; Anemia of chronic disease D63.8 ; Pure hyperglyceridemia E78.1 ; Peripheral vascular disease I73.9 ; Abnormal glucose R73.09 ; URI (upper respiratory infection) J06.9 ; 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 ; Gastroesophageal reflux disease without esophagitis K21.9 and Cough R05 [place] [address] [address] SP Mar, Flank pain R10.9 and URI (up per respiratory infection) J06.9 SP [place] [address] [address] SP Mar, Right-sided low back pain wi thout sciatica M54.5 and Hematuria, SP R31.9 [place] [address] [address] SP Mar, Hypopigmentation L81.9 and H yperpigmentation L81.9 SP [place] [address] [address] SP Mar, SP [place] [address] [address] SP Mar, Acute cystitis with hematuri a N30.01 SP [place] [address] [address] SP Mar, SP [place] [address] [address] SP Feb, Furuncle L02.92 ; Hypopigmen tation L81.9 ; Hyperpigmentation SP ; Urinary frequency R35.0 ; Screening for malignant neoplasm of cervix Z12.4 ; Vaginal discharge N89.8 ; Urinary, incontinence, stress female N39.3 and Vaginal irritation N89.8 [place] [address] [address] SP Jan, Muscle spasm 728.85 ; Unspec ified peripheral vascular disease SP ; Benign essential hypertension 401.1 ; Chronic renal insufficiency 585.9 ; Chronic constipation 564.00 ; GERD (gastroesophageal reflux disease) 530.81 ; Hyperlipidemia 272.4 and Chronic leg pain 729.5 [place] [address] [address] SP Jan, Sinusitis 473.9 SP [place] [address] [place] [id number] [place] [address] SP Dec, SP [place] [address] [address] SP Dec, Acute bronchitis 466.0 [place] [address] [address] SP Dec, Acute bronchitis 466.0 SP [place] [address] [address] SP Dec, Unspecified episodic mood di sorder 296.90 [place] [address] [address] SP Dec, Visit for suture removal V58 .[address] [address] SP Nov, Allergic rhinitis 477.9 and Onychomycosis 110.1 SP [place] [address] [address] SP Oct, Muscle spasm 728.85 ; Benign essential hypertension 401.1 ; SP renal insufficiency 585.9 ; Chronic constipation 564.00 ; GERD (gastroesophageal reflux disease) 530.81 and Hyperlipidemia 272.4 [place] [address] [place] [id number] [place] [address] SP Oct, Otalgia of left ear 388.70 SP [place] [address] [place] [id number] [place] [address] SP Oct, Unspecified episodic mood di sorder 296.90 [place] [address] [address] SP September, Unspecified episodic mood di sorder 296.90 [place] [address] [place] [id number] [place] [address] SP September, Unspecified episodic mood di sorder 296.90 SP [place] [address] [id number] [place] [address] SP September, Urinary frequency 788.41 and Constipation 564.00 SP [facility] [address] [id number] [address] [place] [address], [place] [address] SP Aug, SP [facility] [address] [facility] [id number] [address] [place] [address] SP Aug, SP [facility] [address] [id number] [address] [place] [address] SP Jul, SP [facility] [address] [id number] [address] [place] [address], [place] [address] SP Jul, SP [facility] [address] [id number] [address] [place] [address] SP Jul, SP [facility] [address] [id number] [address] [place] [address] SP Jul, SP [facility] [address] [id number] [address] [place] [address], [place] [address] SP Jul, SP [facility] [address] [id number] [address] [place] [address], [place] [address] SP Jul, SP [facility] [address] [facility] [id number] [address] [place] [phone] SP Jul, SP [facility] [address] [id number] [address] [place] [address] SP Jul, SP [facility] [address] [id number] [address] [place] [address] SP Jul, SP [facility] [address] [id number] [address] [place] [address] SP Jul, SP [facility] [address] [facility] [id number] [address] [place] [address] SP Jun, SP [facility] [address] [facility] [id number] [address] [place] [id number] SP Jun, SP [facility] [address] [id number] [address] [place] [address], [place] [address] SP May, SP [facility] [address] [id number] [address] [place] [address], [place] [address] SP May, SP [facility] [address] [id number] [address] [place] [address], [place] [address] SP May, SP [facility] [address] [id number] [address] [place] [address], [place] [id number] SP May, SP [facility] [address] [id number] [address] [place] [address], [place] [id number] SP May, SP [facility] [address] [id number] [address] [place] [address], [place] [address] SP May, SP [facility] [address] [id number] [address] [place] [address], [place] [address] SP May, SP [facility] [address] [id number] [address] [place] [address], [place] [address] SP May, SP [facility] [address] [id number] [address] [place] [address], [place] [address] SP May, SP [facility] [address] [id number] [address] [place] [address], [place] [id number] SP May, SP [facility] [address] [id number] [address] [place] [address], [place] [address] SP May, SP [facility] [address] [id number] [address] [place] [address], [place] [address] SP May, SP [facility] [address] [id number] [address] [place] [address], [place] [address] SP May, SP [facility] [address] [id number] [address] [place] [address], [place] [id number] SP Feb, SP [facility] [address] [id number] [address] [place] [address], [place] [id number] SP 07 Feb, 2014 SP [facility] [address] [id number] [address] [place] [address], [place] [address] SP 20 Jan, 2013 SP [facility] [address] [id number] [address] [place] [address], [place] [id number] SP 20 Jan, 2013 SP [facility] [address] [id number] [address] [place] [address], [place] [id number] SP 18 Jan, 2013 SP [facility] [address] [id number] [address] [place] [address], [place] [id number] SP 18 Jan, 2013 SP [facility] [address] [id number] [address] [place] [address], [place] [address] SP 12 Jan, 2013 SP [facility] [address] [id number] [address] [place] [address], [place] [id number] SP 12 Jan, 2013 SP [facility] [address] [id number] [address] [place] [address], [place] [id number] SP 12 Jan, 2013 SP [facility] [address] [id number] [address] [place] [address], [place] [id number] SP 12 Jan, 2013 SP [facility] [address] [id number] [address] [place] [address], [place] [address] SP 11 Jan, 2013 SP [facility] [address] [id number] [address] [place] [address], [place] [id number] SP 11 Jan, 2013 SP [facility] [address] [id number] [address] [place] [address], [place] [id number] SP 10 Jan, 2013 SP [facility] [address] [id number] [address] [place] [address], [place] [address] SP 10 Jan, 2013 SP [facility] [address] [id number] [address] [place] [address], [place] [address] SP Oct, SP [facility] [address] [id number] [address] [place] [address], [place] [address] SP Oct, SP [facility] [address] [id number] [address] [place] [address], [place] [id number] SP Oct, SP [facility] [address] [id number] [address] [place] [address], [place] [id number] SP Oct, SP [facility] [address] [id number] [address] [place] [address], [place] [id number] SP Jun, SP [facility] [address] [id number] [address] [place] [address], [place] [id number] SP Jun, SP [facility] [address] [id number] [address] [place] [address], [place] [id number] SP Jun, SP [facility] [address] [id number] [address] [place] [address], [place] [id number] SP Jun, SP [facility] [address] [id number] [address] [place] [id number] SP Apr, SP [facility] [address] [id number] [address] [place] [address], [place] [id number] SP Apr, SP [facility] [address] [id number] [address] [place] [address], [place] [id number] SP Feb, SP [facility] [address] [id number] [address] [place] [id number] SP Feb, SP [facility] [address] [id number] [address] [place] [id number] SP Dec, SP [facility] [address] [id number] [address] [place] [address], [place] [id number] SP Dec, SP [facility] [address] [id number] [address] [place] [address], [place] [id number] SP Nov, SP [facility] [facility] [address] [id number] [address] [place] [id number] SP Nov, SP [facility] [address] [id number] [address] [place] [id number] SP Nov, SP [facility] [address] [id number] [address] [place] [address], [place] [id number] SP Oct, SP [facility] [address] [id number] [address] [place] [address], [place] [id number] SP September, SP [facility] [address] [id number] [address] [place] [address], [place] [id number] SP September, SP [facility] [address] [id number] [address] [place] [address], [place] [id number] SP Aug, SP [facility] [address] [id number] [address] [place] [address], [place] [id number] SP Aug, SP [facility] [address] [id number] [address] [place] [address], [place] [id number] SP Aug, SP [facility] [address] [id number] [address] [place] [address], [place] [id number] SP Aug, SP [facility] [address] [id number] [address] [place] [address], [place] [id number] SP Aug, SP [facility] [address] [id number] [address] [place] [address], [place] [id number] SP Aug, SP [facility] [address] [id number] [address] [place] [address], [place] [id number] SP Jul, SP [facility] [address] [id number] [address] [place] [address], [place] [id number] SP Jul, SP [facility] [address] [id number] [address] [place] [address], [place] [id number] SP Jul, SP [facility] [address] [id number] [address] [place] [address], [place] [id number] SP Jul, SP [facility] [address] [id number] [address] [place] [address], [place] [id number] SP Jul, SP [facility] [address] [id number] [address] [place] [address], [place] [id number] SP Jul, SP [facility] [address] [id number] [address] [place] [address], [place] [id number] SP Jun, SP [facility] [address] [id number] [address] [place] [address], [place] [id number] SP Jun, SP [facility] [address] [id number] [address] [place] [address], [place] [id number] SP May, SP [facility] [address] [id number] [address] [place] [address], [place] [id number] SP May, SP [facility] [address] [id number] [address] [place] [address], [place] [id number] SP Apr, SP [facility] [address] [id number] [address] [place] [address], [place] [id number] SP Apr, SP [facility] [address] [id number] [address] [place] [address], [place] [id number] SP Apr, SP [facility] [address] [id number] [address] [place] [address], [place] [id number] SP Apr, SP [facility] [address] [id number] [address] [place] [address], [place] [id number] SP Apr, SP [facility] [address] [id number] [address] [place] [address], [place] [id number] SP Mar, SP [facility] [address] [id number] [address] [place] [address], [place] [id number] SP Mar, SP [facility] [address] [id number] [address] [place] [address], [place] [id number] SP Mar, SP [facility] [address] [id number] [address] [place] [address], [place] [id number] SP Mar, SP [facility] [address] [id number] [address] [place] [address], [place] [id number] SP Mar, SP [facility] [address] [id number] [address] [place] [address], [place] [id number] SP Mar, SP [facility] [address] [id number] [address] [place] [address], [place] [id number] SP Mar, SP [facility] [address] [id number] [address] [place] [address], [place] [id number] SP Feb, SP [facility] [address] [id number] [address] [place] [address], [place] [id number] SP Feb, SP [facility] [address] [id number] [address] [place] [address], [place] [id number] SP Feb, SP [facility] [address] [id number] [address] [place] [address], [place] [id number] SP Feb, SP [facility] [address] [id number] [address] [place] [address], [place] [id number] SP Dec, SP [facility] [address] [id number] [address] [place] [address], [place] [id number] SP Nov, SP [facility] [address] [id number] [address] [place] [address], [place] [id number] SP Nov, SP [facility] [address] [id number] [address] [place] [address], [place] [id number] SP Oct, SP [facility] [address] [id number] [address] [place] [address], [place] [id number] SP Oct, SP [facility] [address] [id number] [address] [place] [address], [place] [id number] SP Oct, SP [facility] [address] [id number] [address] [place] [address], [place] [id number] SP Oct, SP [facility] [address] [id number] [address] [place] [address], [place] [id number] SP Oct, SP [facility] [address] [id number] [address] [place] [address], [place] [id number] SP Oct, SP [facility] [address] [id number] [address] [place] [address], [place] [id number] SP Oct, SP [facility] [address] [id number] [address] [place] [address], [place] [id number] SP Aug, SP [facility] [address] [id number] [address] [place] [address], [place] [id number] SP Jul, SP [facility] [address] [id number] [address] [place] [address], [place] [id number] SP Jul, SP [facility] [address] [id number] [address] [place] [address], [place] [id number] SP Jul, SP [facility] [address] [id number] [address] [place] [address], [place] [id number] SP Jul, SP [facility] [address] [id number] [address] [place] [address], [place] [id number] SP Jul, SP [facility] [address] [id number] [address] [place] [address], [place] [id number] SP Jul, SP [facility] [address] [id number] [address] [place] [address], [place] [id number] SP Jul, SP [facility] [address] [id number] [address] [place] [address], [place] [address] SP Jun, SP [facility] [address] [id number] [address] [place] [address], [place] [id number] SP May, SP [facility] [address] [id number] [address] [place] [address], [place] [id number] SP May, SP [facility] [address] [id number] [address] [place] [address], [place] [address] SP May, SP [facility] [address] [id number] [address] [place] [address], [place] [id number] SP Apr, SP [facility] [address] [id number] [address] [place] [address], [place] [id number] SP Apr, SP [facility] [address] [id number] [address] [place] [address], [place] [id number] SP Apr, SP [facility] [address] [id number] [address] [place] [address], [place] [id number] SP Apr, SP [facility] [address] [id number] [address] [place] [address], [place] [id number] SP Apr, SP [facility] [address] [id number] [address] [place] [address], [place] [id number] SP Apr, SP [facility] [address] [id number] [address] [place] [address], [place] [id number] SP Mar, SP [facility] [address] [id number] [address] [place] [address], [place] [id number] SP Mar, SP [facility] [address] [id number] [address] [place] [address], [place] [id number] SP Mar, SP [facility] [address] [id number] [address] [place] [address], [place] [address] SP Mar, SP [facility] [address] [id number] [address] [place] [address], [place] [id number] SP Mar, SP [facility] [address] [id number] [address] [place] [address], [place] [id number] SP Mar, SP [facility] [address] [id number] [address] [place] [address], [place] [id number] SP Mar, SP [facility] [address] [id number] [address] [place] [address], [place] [id number] SP Dec, SP [facility] [address] [id number] [address] [place] [address], [place] [id number] SP Aug, SP [facility] [address] [id number] [address] [place] [address], [place] [address] SP Apr, SP [facility] [address] [id number] [address] [place] [id number] SP Mar, SP [facility] [address] [id number] [address] [place] [id number] SP Mar, SP [facility] [address] [id number] [address] [place] [id number] SP Mar, SP [facility] [address] [id number] [address] [place] [id number] SP Mar, SP [facility] [address] [id number] [address] [place] [id number] SP September, SP [facility] [address] [id number] [address] [place] [id number] SP Mar, SP [facility] [address] [facility] [id number] [address] [place] [id number] SP Feb, SP [facility] [address] [id number] [address] [place] [id number] SP Oct, SP [facility] [address] [id number] [address] [place] [id number] SP September, SP [facility] [address] [id number] [address] [place] [id number] SP Apr, SP [facility] [address] [id number] [address] [place] [id number] SP Mar, SP IMMUNIZATIONS No Known Immunizations [...]
--- OUTSIDE RECORDS SUMMARY | 2019-04-01 02:16 | XMS REPORT ---
Author Author Migration, Doctor POS Organization [facility] SP Address Unknown SP Phone Unavailable SP Care Team Providers Care Filtration Supervisor Name Role Phone POS Migration, Doctor Unavailable Unavailable SP PROBLEMS Type Condition ICD9-CM Code LNP53-PC Code Onset Dates Condition S tatus SNOMED POS Problem Peripheral vascular disease I73.9 Ac tive [id number] POS Problem Urinary, incontinence, stress female N39.3 Active [id number] SP Problem Chronic kidney disease, unspecified N18.9 Active 107890466 SP Problem Dysphagia, unspecified R13.10 Active 10108671 SP Problem Anemia of chronic disease D63.8 Acti ve [id number] SP Problem Cervicalgia M54.2 Active 73479233 26304 SP Problem Essential hypertension I10 Active 23780914 SP Problem 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 983319521 SP Problem Abdominal aortic aneurysm (AAA) without rupture I7 1.4 Active SP Problem Seasonal allergic rhinitis, unspecified allergic rhinitis trigger SP Active 508889644 SP Problem Prediabetes R73.03 Active 80807325 2 SP Problem Mixed hyperlipidemia E78.2 Active 189316066 SP Problem Stenosis of right renal artery I70.1 Active [id number] SP Problem Chronic obstructive pulmonary disease, unspecified COPD ty pe J44.9 SP 53569259 SP Problem Gastroesophageal reflux disease without esophagitis K21.9 Active SP Problem Hepatic steatosis K76.0 Active 19 7822335 SP Problem Renal artery stenosis I70.1 Active 298815614 SP Problem PVD (peripheral vascular disease) I73.9 Active 489336426 SP Problem Arthritis of knee M17.10 Active 37 4336949 SP Problem Other chronic pain G89.29 Active 8 5626293 SP ALLERGIES No Information ENCOUNTERS Encounter Location Date Diagnosis POS [facility] [address] [facility] [id number] [address] [place], [place] SP Oct, Cellulitis of right upper ex tremity L03.113 and Morbid obesity SP [facility] [address] [place] [address] September, Dysuria R30.0 SP Right forearm cellulitis L03.113 [place] [address] [address] SP Jul, Contact dermatitis and other eczema, due to unspecified cause SP ; Morbid obesity E66.01 ; Essential hypertension I10 ; Chronic obstructive pulmonary disease, unspecified COPD type J44.9 ; Chronic kidney disease, unspecified N18.9 and Mixed hyperlipidemia E78.2 [facility] [address] SP Jul, Skin infection L08.9 and Mor bid obesity E66.01 SP [facility] [place] [address] SP Jun, Cellulitis of right arm L03. 113 and BMI 45.0-49.9, adult Z68.42 SP [place] [address] [address] SP May, SP [place] [address] [address] SP May, Chronic obstructive pulmonar y disease, unspecified COPD type SP ; Viral upper respiratory tract infection J06.9 and BMI 45.0-49.9, adult Z68.42 [place] [address] [address] [place] [id number] [address] [place] [address] SP Mar, BMI 45.0-49.9, adult Z68.42 ; Chronic urticaria L50.8 and Skin SP L08.9 [place] [address] [address] [place] [id number] [address] [place] [address] SP Mar, Dermatitis L30.9 and BMI 45. 0-49.9, adult Z68.42 SP [place] [address] [address] [place] [id number] [address] [place] [address] SP Feb, Cellulitis of right upper ex tremity L03.113 and BMI 45.0-49.9, SP Z68.42 [place] [address] [address] SP Feb, Cellulitis of right arm L03. 113 and Status post cardiac SP Z98.890 [place] [address] [address] SP Feb, SP [place] [address] [address] SP Feb, Chronic obstructive pulmonar y disease, unspecified COPD type SP ; Essential hypertension I10 ; Encounter for immunization Z23 ; Mixed hyperlipidemia E78.2 and BMI 45.0-49.9, adult Z68.42 [place] [address] [address] SP Feb, Dysuria R30.0 ; Acute cystit is without hematuria N30.00 and BMI SP49.9, adult Z68.42 [place] [address] [address] SP Dec, SP [place] [address] [address] SP Dec, Essential hypertension I10 ; Chronic kidney disease, unspecified SP ; Mixed hyperlipidemia E78.2 ; Tinea corporis B35.4 ; Right hip pain M25.551 and Acute pain of right knee M25.561 [place] [address] [address] SP Dec, Herpes zoster without compli cation B02.9 ; Dandruff L21.0 ; SP unspecified type R19.7 and BMI 45.0-49.9, adult Z68.42 [place] [address] [address] SP September, Chronic kidney disease, unsp ecified N18.9 ; Essential SP I10 ; Mixed hyperlipidemia E78.2 and BMI 45.0-49.9, adult Z68.42 [place] [address] [address] SP September, SP [place] [address] [address] SP September, Essential hypertension I10 ; Chronic kidney disease, unspecified SP ; Prediabetes R73.03 ; Low back pain M54.5 ; Other chronic pain G89.29 ; Arthritis of knee M17.10 ; Pure hyperglyceridemia E78.1 ; Anemia of chronic disease D63.8 and BMI 45.0-49.9, adult Z68.42 [place] [address] [address] SP Aug, SP [place] [address] [address] SP Jul, Abdominal aortic aneurysm (A AA) without rupture I71.4 ; PVD SP vascular disease) I73.9 ; Renal artery stenosis I70.1 and Essential hypertension I10 [place] [address] [address] SP May, Essential hypertension I10 ; Pure hyperglyceridemia E78.1 ; SP aortic aneurysm (AAA) without rupture I71.4 ; Chronic kidney disease, unspecified N18.9 ; Gastroesophageal reflux disease without esophagitis K21.9 ; 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 ; Stenosis of right renal artery I70.1 ; Anemia of chronic disease D63.8 and Prediabetes R73.03 [place] [address] [address] SP May, Tinea corporis B35.4 and Vir al URI J06.9 SP [place] [address] [address] SP May, SP [place] [address] [address] SP Apr, SP [place] [address] [address] SP Apr, Cervical radiculopathy M54.1 2 SP [facility] [address] [facility] [id number] [address] [place] [address] SP Apr, Flank pain R10.9 and Acute p yelonephritis N10 SP [facility] [address] [facility] [id number] [address] [place] [address] SP Apr, SP [facility] [address] [address] SP Mar, SP [facility] [address] [facility] [id number] [address] [place] [address] SP Feb, Pain of right shoulder regio n M25.511 SP [facility] [address] [place] [id number] [address] [place] [address] SP Feb, History of glaucoma Z86.69 ; Vision changes H53.9 ; Abdominal SP aneurysm (AAA) without rupture I71.4 ; Xerosis of skin L85.3 and Pain in right shoulder M25.511 [facility] [address] [place] [id number] [place] [address] SP Feb, SP [facility] [address] [place] [id number] [address] [place] [address] SP Jan, Essential hypertension I10 ; Pure hyperglyceridemia E78.1 ; SP kidney disease, unspecified N18.9 ; Gastroesophageal reflux disease without esophagitis K21.9 ; 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 ; Stenosis of right renal artery I70.1 ; Anemia of chronic disease D63.8 ; Prediabetes R73.03 ; Pain of right shoulder region M25.511 and Homeless Z59.0 [place] [address] [address] [place] [id number] [place] [address] SP Jan, Neck pain M54.2 and Seasonal allergic rhinitis, unspecified SP rhinitis trigger J30.2 [facility] [address] [place] [id number] [address] [place] [address] SP Dec, SP [facility] [address] [place] [id number] [place] [address] SP Dec, SP [place] [address] [address] [place] [id number] [place] [address] SP Dec, Blood glucose abnormal R73.0 9 [...] H. pylori infection A04.8 and Prediabetes R73.03 [facility] [address] SP Oct, Seasonal allergic rhinitis, unspecified allergic rhinitis SP J30.2 [place] [address] [address] SP September, Eustachian tube dysfunction, left H69.82 and Candidiasis of SP B37.89 [place] [address] [address] [place] [id number] [place] [address] SP Jul, Blood glucose abnormal R73.0 9 ; Essential hypertension I10 ; Pure SPhyperglyceridemia E78.1 ; Chronic kidney disease, unspecified N18.9 ; Gastroesophageal reflux disease without esophagitis K21.9 ; 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 ; Abdominal aortic aneurysm (AAA) without rupture I71.4 ; Stenosis of right renal artery I70.1 ; Anemia of chronic disease D63.8 and Acute non-recurrent maxillary sinusitis J01.00 [place] [address] [address] [place] [id number] [address] [place] [address] SP Jun, Acute non-recurrent maxillar y sinusitis J01.00 ; Acute mucoid SP media of left ear H65.112 ; Nausea R11.0 and Fever and chills R50.9 [place] [address] [address] [place] [id number] [address] [place] [address] SP May, Acute right flank pain R10.9 SP [facility] [address] [facility] [id number] [address] [place] [address] SP Apr, Acute nasopharyngitis J00 ; Pure hyperglyceridemia E78.1 and SP kidney disease, unspecified N18.9 [facility] [address] [facility] [id number] [address] [place] [address] SP Apr, SP [facility] [address] [facility] [id number] [address] [place] [address] SP Apr, Blood glucose abnormal R73.0 9 ; Essential hypertension I10 ; Pure SPhyperglyceridemia E78.1 ; Chronic kidney disease, unspecified N18.9 ; Gastroesophageal reflux disease without esophagitis K21.9 ; 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 ; Abdominal aortic aneurysm (AAA) without rupture I71.4 ; Stenosis of right renal artery I70.1 ; RUQ pain R10.11 and Anemia of chronic disease D63.8 [facility] [address] [facility] [id number] [address] [place] [address] SP Mar, Blood glucose abnormal R73.0 9 SP [facility] [address] [facility] [id number] [address] [place] [address] SP Mar, Cellulitis of right lower le g L03.115 SP [facility] [address] [facility] [id number] [address] [place] [address] SP Feb, SP [facility] [address] [place] [id number] [address] [place] [address] SP Feb, Dysuria R30.0 and Upper resp iratory tract infection, unspecified SP J06.9 [facility] [address] [facility] [id number] [address] [place] [address] SP Jan, SP [facility] [address] [facility] [id number] [address] [place] [address] SP Jan, SP [facility] [address] [place] [id number] [address] [place] [address] SP Dec, SP [place] [address] [address] [place] [id number] [place] [address] SP Dec, Anemia of chronic disease D6 3.8 ; Essential hypertension I10 ; SP hyperglyceridemia E78.1 ; Chronic kidney disease, unspecified N18.9 ; Gastroesophageal reflux disease without esophagitis K21.9 ; 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 and Pain in right knee M25.[address] [address] SP Dec, Left shoulder strain, subseq uent encounter S46.912D ; Urinary SP R35.0 ; Lung nodule, solitary R91.1 ; Essential hypertension I10 and Acute cystitis without hematuria N30.[address] [address] SP Nov, Left-sided chest wall pain R 07.89 and Abnormal chest xray R93.[address] [address] SP Nov, Pain of right lower extremit y M79.604 ; Swelling of right lower SP M79.89 ; Diarrhea, unspecified R19.7 ; Nausea with vomiting, unspecified R11.2 ; Left-sided chest wall pain R07.89 ; Chronic kidney disease, unspecified N18.9 ; Gastroesophageal reflux disease without esophagitis K21.9 and Other seasonal allergic rhinitis J30.[address] [address] SP September, Essential hypertension I10 ; Chronic kidney disease, unspecified SP ; Anemia of chronic disease D63.8 ; Pure hyperglyceridemia E78.1 ; Peripheral vascular disease I73.9 ; Abnormal glucose R73.09 ; 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 ; Gastroesophageal reflux disease without esophagitis K21.9 ; Allergic rhinitis J30.9 and Rash R21 [place] [id number] [place] [address] SP Aug, Abdominal pain R10.9 and Con stipation K59.00 SP [place] [address] [address] [place] [id number] [address] [place] [address] SP Jul, Injury of toe on right foot S99.921A SP [place] [address] [place] [id number] [address] [place] [address] SP 14 Jul, 2015 SP [place] [address] [place] [id number] [place] [address] SP Jul, Essential hypertension I10 ; Chronic kidney disease, unspecified SP ; Anemia of chronic disease D63.8 ; Pure hyperglyceridemia E78.1 ; Peripheral vascular disease I73.9 ; Abnormal glucose R73.09 ; 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 ; Gastroesophageal reflux disease without esophagitis K21.9 and Allergic rhinitis J30.9 [place] [address] [address] [place] [id number] [address] [place] [address] SP Jun, Low back pain M54.5 SP [place] [address] [place] [id number] [place] [address] SP Jun, SP [place] [address] [place] [id number] [place] [address] SP May, URI (upper respiratory infec tion) J06.9 SP [place] [address] [address] [place] [id number] [address] [place] [address] SP Apr, Essential hypertension I10 SP [place] [address] [place] [id number] [place] [address] SP Apr, Essential hypertension I10 ; Chronic kidney disease, unspecified SP ; Anemia of chronic disease D63.8 ; Pure hyperglyceridemia E78.1 ; Peripheral vascular disease I73.9 ; Abnormal glucose R73.09 ; URI (upper respiratory infection) J06.9 ; 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 ; Gastroesophageal reflux disease without esophagitis K21.9 and Cough R05 [place] [address] [facility] [id number] [address] [place] [address] SP Mar, Flank pain R10.9 and URI (up per respiratory infection) J06.9 SP [facility] [address] [address] SP Mar, Right-sided low back pain wi thout sciatica M54.5 and Hematuria, SP R31.9 [place] [address] [address] SP Mar, Hypopigmentation L81.9 and H yperpigmentation L81.9 SP [place] [address] [address] SP Mar, SP [place] [address] [address] SP Mar, Acute cystitis with hematuri a N30.01 SP [place] [address] [address] SP Mar, SP [place] [address] [address] SP Feb, Furuncle L02.92 ; Hypopigmen tation L81.9 ; Hyperpigmentation SP ; Urinary frequency R35.0 ; Screening for malignant neoplasm of cervix Z12.4 ; Vaginal discharge N89.8 ; Urinary, incontinence, stress female N39.3 and Vaginal irritation N89.8 [place] [address] [address] SP Jan, Muscle spasm 728.85 ; Unspec ified peripheral vascular disease SP ; Benign essential hypertension 401.1 ; Chronic renal insufficiency 585.9 ; Chronic constipation 564.00 ; GERD (gastroesophageal reflux disease) 530.81 ; Hyperlipidemia 272.4 and Chronic leg pain 729.5 [place] [address] [address] SP Jan, Sinusitis 473.9 SP [place] [address] [address] SP Dec, [place] [address] [address] [place] [id number] [place] [address] SP Dec, Acute bronchitis 466.0 [place] [address] [address] SP Dec, Acute bronchitis 466.0 SP [place] [address] [address] SP Dec, Unspecified episodic mood di sorder 296.90 [place] [address] [address] SP Dec, Visit for suture removal V58 .[address] [address] SP Nov, Allergic rhinitis 477.9 and Onychomycosis 110.1 [place] [address] [address] SP Oct, Muscle spasm 728.85 ; Benign essential hypertension 401.1 ; SP renal insufficiency 585.9 ; Chronic constipation 564.00 ; GERD (gastroesophageal reflux disease) 530.81 and Hyperlipidemia 272.4 [place] [address] [address] [place] [id number] [address] [place] [address] SP Oct, Otalgia of left ear 388.70 [place] [address] [address] SP Oct, Unspecified episodic mood di sorder 296.90 [place] [address] [place] [id number] [address] [place] [address] SP September, Unspecified episodic mood di sorder 296.90 [place] [address] [address] SP September, Unspecified episodic mood di sorder 296.90 [facility] [address] [place] [id number] [place] [address] SP September, Urinary frequency 788.41 and Constipation 564.00 SP [facility] [address] [id number] [address] [place] [address], [place] [address] SP 14 Aug, 2014 SP [facility] [address] [id number] [address] [place] [address], [place] [address] SP 13 Aug, 2014 SP [facility] [address] [id number] [address] [place] [address], [place] [address] SP Jul, SP [facility] [address] [id number] [address] [place] [address], [place] [address] SP Jul, SP [facility] [address] [id number] [address] [place] [address], [place] [address] SP Jul, SP [facility] [address] [id number] [address] [place] [address], [place] [address] SP Jul, SP [facility] [address] [id number] [address] [place] [address] SP Jul, SP [facility] [address] [id number] [address] [place] [address], [place] [address] SP Jul, SP [facility] [address] [id number] [address] [place] [address], [place] [address] SP Jul, SP [facility] [address] [id number] [address] [place] [address], [place] [address] SP Jul, SP [facility] [address] [id number] [address] [place] [address], [place] [address] SP Jul, SP [facility] [address] [id number] [address] [place] [address], [place] [address] SP Jul, SP [facility] [address] [id number] [address] [place] [address], [place] [address] SP Jun, SP [facility] [address] [id number] [address] [place] [address] SP Jun, SP [facility] [address] [id number] [address] [place] [address] SP May, SP [facility] [address] [id number] [address] [place] [address], [place] [address] SP May, SP [facility] [address] [id number] [address] [place] [address], [place] [address] SP May, SP [facility] [address] [id number] [address] [place] [address], [place] [address] SP May, SP [facility] [address] [id number] [address] [place] [address], [place] [address] SP May, SP [facility] [address] [id number] [address] [place] [address], [place] [address] SP May, SP [facility] [address] [id number] [address] [place] [address], [place] [address] SP May, SP [facility] [address] [id number] [address] [place] [address], [place] [address] SP May, SP [facility] [address] [id number] [address] [place] [address], [place] [address] SP May, SP [facility] [address] [id number] [address] [place] [address], [place] [address] SP May, SP [facility] [address] [id number] [address] [place] [address], [place] [address] SP May, SP [facility] [address] [id number] [address] [place] [address], [place] [address] SP May, SP [facility] [address] [id number] [address] [place] [address], [place] [address] SP May, SP [facility] [address] [id number] [address] [place] [address], [place] [address] SP Feb, SP [facility] [address] [id number] [address] [place] [address], [place] [address] SP Feb, SP [facility] [address] [id number] [facility] [address] SP 20 Sep, 2013 SP [facility] [address] [id number] [address] [place] [address], [place] [address] SP 20 Sep, 2013 SP [facility] [address] [id number] [address] [place] [address], [place] [address] SP 18 Sep, 2013 SP [facility] [address] [id number] [address] [place] [address], [place] [address] SP 18 Sep, 2013 SP [facility] [address] [id number] [address] [place] [address], [place] [address] SP 12 Jan, 2013 SP [facility] [address] [id number] [address] [place] [address], [place] [address] SP 12 Jan, 2013 SP [facility] [address] [id number] [address] [place] [address], [place] [address] SP 12 Jan, 2013 SP [facility] [address] [id number] [address] [place] [address], [place] [address] SP 12 Jan, 2013 SP [facility] [address] [id number] [address] [place] [address], [place] [address] SP 11 Jan, 2013 SP [facility] [address] [id number] [address] [place] [address], [place] [address] SP 11 Jan, 2013 SP [facility] [address] [id number] [address] [place] [address], [place] [address] SP 10 Jan, 2013 SP [facility] [address] [id number] [address] [place] [address], [place] [address] SP 10 Jan, 2013 SP [facility] [address] [id number] [address] [place] [address], [place] [address] SP Oct, SP [facility] [address] [id number] [address] [place] [address], [place] [address] SP Oct, SP [facility] [address] [id number] [address] [place] [address], [place] [address] SP Oct, SP [facility] [address] [id number] [address] [place] [address], [place] [address] SP Oct, SP [facility] [address] [id number] [address] [place] [address], [place] [address] SP Jun, SP [facility] [address] [id number] [address] [place] [address], [place] [address] SP Jun, SP [facility] [address] [id number] [address] [place] [address], [place] [address] SP Jun, SP [facility] [address] [id number] [address] [place] [address], [place] [address] SP Jun, SP [facility] [address] [id number] [address] [place] [address], [place] [address] SP Apr, SP [facility] [address] [id number] [address] [place] [address], [place] [address] SP Apr, SP [facility] [address] [id number] [address] [place] [address], [place] [address] SP Feb, SP [facility] [address] [id number] [address] [place] [address], [place] [address] SP Feb, SP [facility] [address] [id number] [place] [address], [place] [address] SP Dec, SP [facility] [address] [id number] [address] [place] [address], [place] [address] SP Dec, SP [facility] [address] [id number] [address] [place] [address], [place] [address] SP Nov, SP [facility] [address] [id number] [address] [place] [address], [place] [address] SP Nov, SP [facility] [address] [id number] [address] [place] [address], [place] [address] SP Nov, SP [facility] [address] [id number] [address] [place] [address], [place] [address] SP Oct, SP [facility] [address] [id number] [address] [place] [address], [place] [address] SP September, SP [facility] [address] [id number] [address] [place] [address], [place] [address] SP September, SP [facility] [address] [id number] [address] [place] [address], [place] [address] SP Aug, SP [facility] [address] [id number] [address] [place] [address], [place] [address] SP Aug, SP [facility] [address] [id number] [address] [place] [address], [place] [address] SP Aug, SP [facility] [address] [id number] [address] [place] [address], [place] [address] SP Aug, SP [facility] [address] [id number] [address] [place] [address], [place] [address] SP Aug, SP [facility] [address] [id number] [address] [place] [address], [place] [address] SP Aug, SP [facility] [address] [id number] [address] [place] [address], [place] [address] SP Jul, SP [facility] [address] [id number] [address] [place] [address], [place] [address] SP Jul, SP [facility] [address] [id number] [address] [place] [address], [place] [address] SP Jul, SP [facility] [address] [id number] [address] [place] [address], [place] [address] SP 15 Jul, 2012 SP [facility] [address] [id number] [address] [place] [address], [place] [address] SP Jul, SP [facility] [address] [id number] [address] [place] [address], [place] [address] SP Jul, SP [facility] [address] [id number] [address] [place] [address], [place] [address] SP Jun, SP [facility] [address] [id number] [address] [place] [address], [place] [address] SP Jun, SP [facility] [address] [id number] [address] [place] [address], [place] [address] SP May, SP [facility] [address] [id number] [address] [place] [address], [place] [address] SP May, SP [facility] [address] [id number] [address] [place] [address], [place] [address] SP Apr, SP [facility] [address] [id number] [address] [place] [address], [place] [address] SP Apr, SP [facility] [address] [id number] [address] [place] [address], [place] [address] SP Apr, SP [facility] [address] [id number] [address] [place] [address], [place] [address] SP Apr, SP [facility] [address] [id number] [address] [place] [address], [place] [address] SP Apr, SP [facility] [address] [id number] [address] [place] [address], [place] [address] SP Mar, SP [facility] [address] [id number] [address] [place] [address], [place] [address] SP Mar, SP [facility] [address] [id number] [address] [place] [address], [place] [address] SP Mar, SP [facility] [address] [id number] [address] [place] [address], [place] [address] SP Mar, SP [facility] [address] [id number] [address] [place] [address], [place] [address] SP Mar, SP [facility] [address] [id number] [address] [place] [address], [place] [address] SP Mar, SP [facility] [address] [id number] [address] [place] [address], [place] [address] SP Mar, SP [facility] [address] [id number] [address] [place] [address], [place] [address] SP Feb, SP [facility] [address] [id number] [address] [place] [address], [place] [address] SP Feb, SP [facility] [address] [id number] [address] [place] [address], [place] [address] SP Feb, SP [facility] [address] [id number] [address] [place] [address], [place] [address] SP Feb, SP [facility] [address] [id number] [address] [place] [address], [place] [address] SP Dec, SP [facility] [address] [id number] [address] [place] [address], [place] [address] SP Nov, SP [facility] [address] [id number] [address] [place] [address], [place] [address] SP Nov, SP [facility] [address] [id number] [address] [place] [address], [place] [address] SP Oct, SP [facility] [address] [id number] [address] [place] [address], [place] [address] SP Oct, SP [facility] [address] [id number] [address] [place] [address], [place] [address] SP Oct, SP [facility] [address] [id number] [address] [place] [address], [place] [address] SP Oct, SP [facility] [address] [id number] [address] [place] [address], [place] [address] SP Oct, SP [facility] [address] [id number] [address] [place] [address], [place] [address] SP Oct, SP [facility] [address] [id number] [address] [place] [address], [place] [address] SP Oct, SP [facility] [address] [id number] [address] [place] [address], [place] [address] SP Aug, SP [facility] [address] [id number] [address] [place] [address], [place] [address] SP Jul, SP [facility] [address] [id number] [address] [place] [address], [place] [address] SP Jul, SP [facility] [address] [id number] [address] [place] [address], [place] [address] SP Jul, SP [facility] [address] [id number] [address] [place] [address], [place] [address] SP Jul, SP [facility] [address] [id number] [address] [place] [address], [place] [address] SP Jul, SP [facility] [address] [id number] [address] [place] [address], [place] [address] SP Jul, SP [facility] [address] [id number] [address] [place] [address], [place] [address] SP Jul, SP [facility] [address] [id number] [address] [place] [address], [place] [address] SP Jun, SP [facility] [address] [id number] [address] [place] [address], [place] [address] SP May, SP [facility] [address] [id number] [address] [place] [address], [place] [address] SP May, SP [facility] [address] [id number] [address] [place] [address], [place] [address] SP May, SP [facility] [address] [id number] [address] [place] [address], [place] [address] SP Apr, SP [facility] [address] [id number] [address] [place] [address], [place] [address] SP Apr, SP [facility] [address] [id number] [address] [place] [address], [place] [address] SP Apr, SP [facility] [address] [id number] [address] [place] [address], [place] [address] SP Apr, SP [facility] [address] [id number] [address] [place] [address], [place] [address] SP Apr, SP [facility] [address] [id number] [address] [place] [address], [place] [address] SP Apr, SP [facility] [address] [id number] [address] [place] [address], [place] [address] SP Mar, SP [facility] [address] [id number] [address] [place] [address], [place] [address] SP Mar, SP [facility] [address] [id number] [address] [place] [address], [place] [address] SP Mar, SP [facility] [address] [id number] [address] [place] [address], [place] [address] SP Mar, SP [facility] [address] [id number] [address] [place] [address], [place] [address] SP Mar, SP [facility] [address] [id number] [address] [place] [address], [place] [address] SP Mar, SP [facility] [address] [id number] [address] [place] [address], [place] [address] SP Mar, SP [facility] [address] [id number] [address] [place] [address], [place] [address] SP Dec, SP [facility] [address] [id number] [address] [place] [address], [place] [address] SP Aug, SP [facility] [address] [id number] [address] [place] [address], [place] [address] SP Apr, SP [facility] [address] [id number] [address] [place] [address], [place] [address] SP Mar, SP [facility] [address] [id number] [address] [place] [address] SP Mar, SP [facility] [address] [id number] [address] [place] [address] SP Mar, SP [facility] [address] [facility] [id number] [address] [place] [address] SP Mar, SP [facility] [address] [id number] [address] [place] [address] SP September, SP [facility] [address] [facility] [id number] [address] [place] [address] SP Mar, SP [facility] [address] [facility] [id number] [address] [place] [address] SP Feb, SP [facility] [address] [facility] [id number] [address] [place] [address] SP Oct, SP [facility] [address] [facility] [id number] [address] [place] [address] SP September, SP [facility] [address] [facility] [id number] [address] [place] [address] SP Apr, SP [facility] [address] [facility] [id number] [address] [place] [address] SP Mar, SP IMMUNIZATIONS No Known Immunizations [...]
--- OUTSIDE RECORDS SUMMARY | 2019-04-01 02:17 | XMS REPORT ---
Author Author Migration, Doctor POS Organization [facility] SP Address Unknown SP Phone Unavailable SP Care Team Providers Care Water [employer]clamation [employer] Operator Name Role Phone POS Migration, Doctor Unavailable Unavailable SP PROBLEMS Type Condition ICD9-CM Code MUY12-XF Code Onset Dates Condition S tatus SNOMED POS Problem Peripheral vascular disease I73.9 Ac tive [id number] POS Problem Urinary, incontinence, stress female N39.3 Active [id number] SP Problem Chronic kidney disease, unspecified N18.9 Active [id number] SP Problem Dysphagia, unspecified R13.10 Active 94763547 SP Problem Anemia of chronic disease D63.8 Acti ve [id number] SP Problem Cervicalgia M54.2 Active 00763873 02033 SP Problem Essential hypertension I10 Active 07768545 SP Problem 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 449067180 SP Problem Abdominal aortic aneurysm (AAA) without rupture I7 1.4 Active SP Problem Seasonal allergic rhinitis, unspecified allergic rhinitis trigger SP Active 550202875 SP Problem Prediabetes R73.03 Active 18465861 2 SP Problem Mixed hyperlipidemia E78.2 Active 527429499 SP Problem Stenosis of right renal artery I70.1 Active [id number] SP Problem Chronic obstructive pulmonary disease, unspecified COPD ty pe J44.9 SP 94344588 SP Problem Gastroesophageal reflux disease without esophagitis K21.9 Active SP Problem Hepatic steatosis K76.0 Active 19 7489996 SP Problem Renal artery stenosis I70.1 Active 678908305 SP Problem PVD (peripheral vascular disease) I73.9 Active 388357068 SP Problem Arthritis of knee M17.10 Active 37 0470628 SP Problem Other chronic pain G89.29 Active 8 1799081 SP ALLERGIES No Information ENCOUNTERS Encounter Location Date Diagnosis POS [facility] [address] [facility] [id number] [address] [place], [place] SP Oct, Cellulitis of right upper ex tremity L03.113 and Morbid obesity SP [facility] [address] [place] [address] September, Dysuria R30.0 SP Right forearm cellulitis L03.113 [place] [address] [address] SP Jul, Contact dermatitis and other eczema, due to unspecified cause SP ; Morbid obesity E66.01 ; Essential hypertension I10 ; Chronic obstructive pulmonary disease, unspecified COPD type J44.9 ; Chronic kidney disease, unspecified N18.9 and Mixed hyperlipidemia E78.2 [facility] [address] SP Jul, Skin infection L08.9 and Mor bid obesity E66.01 SP [facility] [place] [address] SP Jun, Cellulitis of right arm L03. 113 and BMI 45.0-49.9, adult Z68.42 SP [place] [address] [address] SP May, SP [place] [address] [address] SP May, Chronic obstructive pulmonar y disease, unspecified COPD type SP ; Viral upper respiratory tract infection J06.9 and BMI 45.0-49.9, adult Z68.42 [place] [address] [address] [place] [id number] [place] [address] SP Mar, BMI 45.0-49.9, adult Z68.42 ; Chronic urticaria L50.8 and Skin SP L08.9 [place] [address] [address] [place] [id number] [address] [place] [address] SP Mar, Dermatitis L30.9 and BMI 45. 0-49.9, adult Z68.42 SP [place] [address] [address] [place] [id number] [address] [place] [address] SP Feb, Cellulitis of right upper ex tremity L03.113 and BMI 45.0-49.9, SP Z68.42 [place] [address] [address] SP Feb, Cellulitis of right arm L03. 113 and Status post cardiac SP Z98.890 [place] [address] [address] SP Feb, SP [place] [address] [address] SP Feb, Chronic obstructive pulmonar y disease, unspecified COPD type SP ; Essential hypertension I10 ; Encounter for immunization Z23 ; Mixed hyperlipidemia E78.2 and BMI 45.0-49.9, adult Z68.42 [place] [address] [address] SP Feb, Dysuria R30.0 ; Acute cystit is without hematuria N30.00 and BMI SP49.9, adult Z68.42 [place] [address] [address] SP Dec, SP [place] [address] [address] SP Dec, Essential hypertension I10 ; Chronic kidney disease, unspecified SP ; Mixed hyperlipidemia E78.2 ; Tinea corporis B35.4 ; Right hip pain M25.551 and Acute pain of right knee M25.561 [place] [address] [address] SP Dec, Herpes zoster without compli cation B02.9 ; Dandruff L21.0 ; SP unspecified type R19.7 and BMI 45.0-49.9, adult Z68.42 [place] [address] [address] SP September, Chronic kidney disease, unsp ecified N18.9 ; Essential SP I10 ; Mixed hyperlipidemia E78.2 and BMI 45.0-49.9, adult Z68.42 [place] [address] [address] SP September, SP [place] [address] [address] SP September, Essential hypertension I10 ; Chronic kidney disease, unspecified SP ; Prediabetes R73.03 ; Low back pain M54.5 ; Other chronic pain G89.29 ; Arthritis of knee M17.10 ; Pure hyperglyceridemia E78.1 ; Anemia of chronic disease D63.8 and BMI 45.0-49.9, adult Z68.42 [place] [address] [address] SP Aug, SP [place] [address] [address] SP Jul, Abdominal aortic aneurysm (A AA) without rupture I71.4 ; PVD SP vascular disease) I73.9 ; Renal artery stenosis I70.1 and Essential hypertension I10 [place] [address] [address] SP May, Essential hypertension I10 ; Pure hyperglyceridemia E78.1 ; SP aortic aneurysm (AAA) without rupture I71.4 ; Chronic kidney disease, unspecified N18.9 ; Gastroesophageal reflux disease without esophagitis K21.9 ; 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 ; Stenosis of right renal artery I70.1 ; Anemia of chronic disease D63.8 and Prediabetes R73.03 [place] [address] [address] SP May, Tinea corporis B35.4 and Vir al URI J06.9 SP [place] [address] [address] SP May, SP [place] [address] [address] SP Apr, SP [place] [address] [address] SP Apr, Cervical radiculopathy M54.1 2 SP [facility] [address] [facility] [id number] [address] [place] [address] SP Apr, Flank pain R10.9 and Acute p yelonephritis N10 SP [facility] [address] [facility] [id number] [address] [place] [address] SP Apr, SP [facility] [address] [address] SP Mar, SP [facility] [address] [facility] [id number] [address] [place] [address] SP Feb, Pain of right shoulder regio n M25.511 SP [facility] [address] [place] [id number] [place] [address] SP Feb, History of glaucoma Z86.69 ; Vision changes H53.9 ; Abdominal SP aneurysm (AAA) without rupture I71.4 ; Xerosis of skin L85.3 and Pain in right shoulder M25.511 [facility] [address] [place] [id number] [place] [address] SP Feb, SP [facility] [address] [place] [id number] [place] [address] SP Jan, Essential hypertension I10 ; Pure hyperglyceridemia E78.1 ; SP kidney disease, unspecified N18.9 ; Gastroesophageal reflux disease without esophagitis K21.9 ; 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 ; Stenosis of right renal artery I70.1 ; Anemia of chronic disease D63.8 ; Prediabetes R73.03 ; Pain of right shoulder region M25.511 and Homeless Z59.0 [place] [address] [address] [place] [id number] [place] [address] SP Jan, Neck pain M54.2 and Seasonal allergic rhinitis, unspecified SP rhinitis trigger J30.2 [facility] [address] [place] [id number] [address] [place] [address] SP Dec, SP [facility] [address] [place] [address] [place] [address] SP Dec, SP [place] [address] [address] [place] [id number] [place] [address] SP Dec, Blood glucose abnormal R73.0 9 [...] H. pylori infection A04.8 and Prediabetes R73.03 [facility] [address] SP Oct, Seasonal allergic rhinitis, unspecified allergic rhinitis SP J30.2 [place] [address] [address] SP September, Eustachian tube dysfunction, left H69.82 and Candidiasis of SP B37.89 [place] [address] [address] [place] [id number] [place] [address] SP Jul, Blood glucose abnormal R73.0 9 ; Essential hypertension I10 ; Pure SPhyperglyceridemia E78.1 ; Chronic kidney disease, unspecified N18.9 ; Gastroesophageal reflux disease without esophagitis K21.9 ; 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 ; Abdominal aortic aneurysm (AAA) without rupture I71.4 ; Stenosis of right renal artery I70.1 ; Anemia of chronic disease D63.8 and Acute non-recurrent maxillary sinusitis J01.00 [place] [address] [address] [place] [id number] [address] [place] [address] SP Jun, Acute non-recurrent maxillar y sinusitis J01.00 ; Acute mucoid SP media of left ear H65.112 ; Nausea R11.0 and Fever and chills R50.9 [place] [address] [address] [place] [id number] [address] [place] [address] SP May, Acute right flank pain R10.9 SP [facility] [address] [facility] [id number] [address] [place] [address] SP Apr, Acute nasopharyngitis J00 ; Pure hyperglyceridemia E78.1 and SP kidney disease, unspecified N18.9 [facility] [address] [facility] [id number] [address] [place] [address] SP Apr, SP [facility] [address] [facility] [id number] [address] [place] [address] SP Apr, Blood glucose abnormal R73.0 9 ; Essential hypertension I10 ; Pure SPhyperglyceridemia E78.1 ; Chronic kidney disease, unspecified N18.9 ; Gastroesophageal reflux disease without esophagitis K21.9 ; 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 ; Abdominal aortic aneurysm (AAA) without rupture I71.4 ; Stenosis of right renal artery I70.1 ; RUQ pain R10.11 and Anemia of chronic disease D63.8 [facility] [address] [facility] [id number] [address] [place] [address] SP Mar, Blood glucose abnormal R73.0 9 SP [facility] [address] [facility] [id number] [address] [place] [address] SP Mar, Cellulitis of right lower le g L03.115 SP [facility] [address] [facility] [id number] [address] [place] [address] SP Feb, SP [facility] [address] [place] [id number] [address] [place] [address] SP Feb, Dysuria R30.0 and Upper resp iratory tract infection, unspecified SP J06.9 [facility] [address] [facility] [id number] [address] [place] [address] SP Jan, SP [facility] [address] [facility] [id number] [address] [place] [address] SP Jan, SP [facility] [address] [place] [id number] [address] [place] [address] SP Dec, SP [place] [address] [address] [place] [id number] [place] [address] SP Dec, Anemia of chronic disease D6 3.8 ; Essential hypertension I10 ; SP hyperglyceridemia E78.1 ; Chronic kidney disease, unspecified N18.9 ; Gastroesophageal reflux disease without esophagitis K21.9 ; 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 and Pain in right knee M25.[address] [address] SP Dec, Left shoulder strain, subseq uent encounter S46.912D ; Urinary SP R35.0 ; Lung nodule, solitary R91.1 ; Essential hypertension I10 and Acute cystitis without hematuria N30.[address] [address] SP Nov, Left-sided chest wall pain R 07.89 and Abnormal chest xray R93.[address] [address] SP Nov, Pain of right lower extremit y M79.604 ; Swelling of right lower SP M79.89 ; Diarrhea, unspecified R19.7 ; Nausea with vomiting, unspecified R11.2 ; Left-sided chest wall pain R07.89 ; Chronic kidney disease, unspecified N18.9 ; Gastroesophageal reflux disease without esophagitis K21.9 and Other seasonal allergic rhinitis J30.[address] [address] SP September, Essential hypertension I10 ; Chronic kidney disease, unspecified SP ; Anemia of chronic disease D63.8 ; Pure hyperglyceridemia E78.1 ; Peripheral vascular disease I73.9 ; Abnormal glucose R73.09 ; 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 ; Gastroesophageal reflux disease without esophagitis K21.9 ; Allergic rhinitis J30.9 and Rash R21 [place] [id number] [address] [place] [address] SP Aug, Abdominal pain R10.9 and Con stipation K59.00 SP [place] [address] [address] [place] [id number] [address] [place] [address] SP Jul, Injury of toe on right foot S99.921A SP [place] [address] [address] [place] [id number] [address] [place] [address] SP 14 Jul, 2015 SP [place] [address] [place] [id number] [place] [address] SP Jul, Essential hypertension I10 ; Chronic kidney disease, unspecified SP ; Anemia of chronic disease D63.8 ; Pure hyperglyceridemia E78.1 ; Peripheral vascular disease I73.9 ; Abnormal glucose R73.09 ; 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 ; Gastroesophageal reflux disease without esophagitis K21.9 and Allergic rhinitis J30.9 [place] [address] [address] [place] [id number] [address] [place] [address] SP Jun, Low back pain M54.5 SP [place] [address] [place] [id number] [place] [address] SP Jun, SP [place] [address] [place] [id number] [place] [address] SP May, URI (upper respiratory infec tion) J06.9 SP [place] [address] [address] [place] [id number] [address] [place] [address] SP Apr, Essential hypertension I10 SP [place] [address] [place] [id number] [place] [address] SP Apr, Essential hypertension I10 ; Chronic kidney disease, unspecified SP ; Anemia of chronic disease D63.8 ; Pure hyperglyceridemia E78.1 ; Peripheral vascular disease I73.9 ; Abnormal glucose R73.09 ; URI (upper respiratory infection) J06.9 ; 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 ; Gastroesophageal reflux disease without esophagitis K21.9 and Cough R05 [place] [address] [address] [facility] [id number] [address] [place] [address] SP Mar, Flank pain R10.9 and URI (up per respiratory infection) J06.9 SP [facility] [address] [address] SP Mar, Right-sided low back pain wi thout sciatica M54.5 and Hematuria, SP R31.9 [place] [address] [address] SP Mar, Hypopigmentation L81.9 and H yperpigmentation L81.9 SP [place] [address] [address] SP Mar, SP [place] [address] [address] SP Mar, Acute cystitis with hematuri a N30.01 SP [place] [address] [address] SP Mar, SP [place] [address] [address] SP Feb, Furuncle L02.92 ; Hypopigmen tation L81.9 ; Hyperpigmentation SP ; Urinary frequency R35.0 ; Screening for malignant neoplasm of cervix Z12.4 ; Vaginal discharge N89.8 ; Urinary, incontinence, stress female N39.3 and Vaginal irritation N89.8 [place] [address] [address] SP Jan, Muscle spasm 728.85 ; Unspec ified peripheral vascular disease SP ; Benign essential hypertension 401.1 ; Chronic renal insufficiency 585.9 ; Chronic constipation 564.00 ; GERD (gastroesophageal reflux disease) 530.81 ; Hyperlipidemia 272.4 and Chronic leg pain 729.5 [place] [address] [address] SP Jan, Sinusitis 473.9 SP [place] [address] [address] SP Dec, [place] [address] [address] [place] [id number] [place] [address] SP Dec, Acute bronchitis 466.0 [place] [address] [address] SP Dec, Acute bronchitis 466.0 SP [place] [address] [address] SP Dec, Unspecified episodic mood di sorder 296.90 [place] [address] [address] SP Dec, Visit for suture removal V58 .[address] [address] SP Nov, Allergic rhinitis 477.9 and Onychomycosis 110.1 [place] [address] [address] SP Oct, Muscle spasm 728.85 ; Benign essential hypertension 401.1 ; SP renal insufficiency 585.9 ; Chronic constipation 564.00 ; GERD (gastroesophageal reflux disease) 530.81 and Hyperlipidemia 272.4 [place] [address] [address] [place] [id number] [place] [address] SP Oct, Otalgia of left ear 388.70 [place] [address] [address] SP Oct, Unspecified episodic mood di sorder 296.90 [place] [address] [place] [id number] [place] [address] SP September, Unspecified episodic mood di sorder 296.90 [place] [address] [address] SP September, Unspecified episodic mood di sorder 296.90 [facility] [address] [place] [id number] [place] [address] SP September, Urinary frequency 788.41 and Constipation 564.00 SP [facility] [address] [id number] [address] [place] [address], [place] [address] SP 14 Aug, 2014 SP [facility] [address] [id number] [address] [place] [address], [place] [address] SP 13 Aug, 2014 SP [facility] [address] [id number] [address] [place] [address], [place] [address] SP Jul, SP [facility] [address] [id number] [address] [place] [address], [place] [address] SP Jul, SP [facility] [address] [id number] [address] [place] [address], [place] [address] SP Jul, SP [facility] [address] [id number] [address] [place] [address], [place] [address] SP Jul, SP [facility] [address] [id number] [address] [place] [address] SP Jul, SP [facility] [address] [id number] [address] [place] [address], [place] [address] SP Jul, SP [facility] [address] [id number] [address] [place] [address], [place] [address] SP Jul, SP [facility] [address] [id number] [address] [place] [address], [place] [address] SP Jul, SP [facility] [address] [id number] [address] [place] [address], [place] [address] SP Jul, SP [facility] [address] [id number] [address] [place] [address], [place] [address] SP Jul, SP [facility] [address] [id number] [address] [place] [address], [place] [address] SP Jun, SP [facility] [address] [id number] [address] [place] [address] SP Jun, SP [facility] [address] [id number] [address] [place] [address] SP May, SP [facility] [address] [id number] [address] [place] [address], [place] [address] SP May, SP [facility] [address] [id number] [address] [place] [address], [place] [address] SP May, SP [facility] [address] [id number] [address] [place] [address], [place] [address] SP May, SP [facility] [address] [id number] [address] [place] [address], [place] [address] SP May, SP [facility] [address] [id number] [address] [place] [address], [place] [address] SP May, SP [facility] [address] [id number] [address] [place] [address], [place] [address] SP May, SP [facility] [address] [id number] [address] [place] [address], [place] [address] SP May, SP [facility] [address] [id number] [address] [place] [address], [place] [address] SP May, SP [facility] [address] [id number] [address] [place] [address], [place] [address] SP May, SP [facility] [address] [id number] [address] [place] [address], [place] [address] SP May, SP [facility] [address] [id number] [address] [place] [address], [place] [address] SP May, SP [facility] [address] [id number] [address] [place] [address], [place] [address] SP May, SP [facility] [address] [id number] [address] [place] [address], [place] [address] SP Feb, SP [facility] [address] [id number] [address] [place] [address], [place] [address] SP Feb, SP [facility] [address] [id number] [facility] [place] [address] SP 20 Sep, 2013 SP [facility] [address] [id number] [address] [place] [address], [place] [address] SP 20 Sep, 2013 SP [facility] [address] [id number] [address] [place] [address], [place] [address] SP 18 Sep, 2013 SP [facility] [address] [id number] [address] [place] [address], [place] [address] SP 18 Sep, 2013 SP [facility] [address] [id number] [address] [place] [address], [place] [address] SP 12 Jan, 2013 SP [facility] [address] [id number] [address] [place] [address], [place] [address] SP 12 Jan, 2013 SP [facility] [address] [id number] [address] [place] [address], [place] [address] SP 12 Jan, 2013 SP [facility] [address] [id number] [address] [place] [address], [place] [address] SP 12 Jan, 2013 SP [facility] [address] [id number] [address] [place] [address], [place] [address] SP 11 Jan, 2013 SP [facility] [address] [id number] [address] [place] [address], [place] [address] SP 11 Jan, 2013 SP [facility] [address] [id number] [address] [place] [address], [place] [address] SP 10 Jan, 2013 SP [facility] [address] [id number] [address] [place] [address], [place] [address] SP 10 Jan, 2013 SP [facility] [address] [id number] [address] [place] [address], [place] [address] SP Oct, SP [facility] [address] [id number] [address] [place] [address], [place] [address] SP Oct, SP [facility] [address] [id number] [address] [place] [address], [place] [address] SP Oct, SP [facility] [address] [id number] [address] [place] [address], [place] [address] SP Oct, SP [facility] [address] [id number] [address] [place] [address], [place] [address] SP Jun, SP [facility] [address] [id number] [address] [place] [address], [place] [address] SP Jun, SP [facility] [address] [id number] [address] [place] [address], [place] [address] SP Jun, SP [facility] [address] [id number] [address] [place] [address], [place] [address] SP Jun, SP [facility] [address] [id number] [address] [place] [address], [place] [address] SP Apr, SP [facility] [address] [id number] [address] [place] [address], [place] [address] SP Apr, SP [facility] [address] [id number] [address] [place] [address], [place] [address] SP Feb, SP [facility] [address] [id number] [address] [place] [address], [place] [address] SP Feb, SP [facility] [address] [id number] [address] [place] [address], [place] [address] SP Dec, SP [facility] [address] [id number] [address] [place] [address], [place] [address] SP Dec, SP [facility] [address] [id number] [address] [place] [address], [place] [address] SP Nov, SP [facility] [address] [id number] [address] [place] [address], [place] [address] SP Nov, SP [facility] [address] [id number] [address] [place] [address], [place] [address] SP Nov, SP [facility] [address] [id number] [address] [place] [address], [place] [address] SP Oct, SP [facility] [address] [id number] [address] [place], [place] [address], [place] [address] SP September, SP [facility] [address] [id number] [address] [place] [address], [place] [address] SP September, SP [facility] [address] [id number] [address] [place] [address], [place] [address] SP Aug, SP [facility] [address] [id number] [address] [place] [address], [place] [address] SP Aug, SP [facility] [address] [id number] [address] [place] [address], [place] [address] SP Aug, SP [facility] [address] [id number] [address] [place] [address], [place] [address] SP Aug, SP [facility] [address] [id number] [address] [place] [address], [place] [address] SP Aug, SP [facility] [address] [id number] [address] [place] [address], [place] [address] SP Aug, SP [facility] [address] [id number] [address] [place] [address], [place] [address] SP Jul, SP [facility] [address] [id number] [address] [place] [address], [place] [address] SP Jul, SP [facility] [address] [id number] [address] [place] [address], [place] [address] SP Jul, SP [facility] [address] [id number] [address] [place] [address], [place] [address] SP 15 Jul, 2012 SP [facility] [address] [id number] [address] [place] [address], [place] [address] SP Jul, SP [facility] [address] [id number] [address] [place] [address], [place] [address] SP Jul, SP [facility] [address] [id number] [address] [place] [address], [place] [address] SP Jun, SP [facility] [address] [id number] [address] [place] [address], [place] [address] SP Jun, SP [facility] [address] [id number] [address] [place] [address], [place] [address] SP May, SP [facility] [address] [id number] [address] [place] [address], [place] [address] SP May, SP [facility] [address] [id number] [address] [place] [address], [place] [address] SP Apr, SP [facility] [address] [id number] [address] [place] [address], [place] [address] SP Apr, SP [facility] [address] [id number] [address] [place] [address], [place] [address] SP Apr, SP [facility] [address] [id number] [address] [place] [address], [place] [address] SP Apr, SP [facility] [address] [id number] [address] [place] [address], [place] [address] SP Apr, SP [facility] [address] [id number] [address] [place] [address], [place] [address] SP Mar, SP [facility] [address] [id number] [address] [place] [address], [place] [address] SP Mar, SP [facility] [address] [id number] [address] [place] [address], [place] [address] SP Mar, SP [facility] [address] [id number] [address] [place] [address], [place] [address] SP Mar, SP [facility] [address] [id number] [address] [place] [address], [place] [address] SP Mar, SP [facility] [address] [id number] [address] [place] [address], [place] [address] SP Mar, SP [facility] [address] [id number] [address] [place] [address], [place] [address] SP Mar, SP [facility] [address] [id number] [address] [place] [address], [place] [address] SP Feb, SP [facility] [address] [id number] [address] [place] [address], [place] [address] SP Feb, SP [facility] [address] [id number] [address] [place] [address], [place] [address] SP Feb, SP [facility] [address] [id number] [address] [place] [address], [place] [address] SP Feb, SP [facility] [address] [id number] [address] [place] [address], [place] [address] SP Dec, SP [facility] [address] [id number] [address] [place] [address], [place] [address] SP Nov, SP [facility] [address] [id number] [address] [place] [address], [place] [address] SP Nov, SP [facility] [address] [id number] [address] [place] [address], [place] [address] SP Oct, SP [facility] [address] [id number] [address] [place] [address], [place] [address] SP Oct, SP [facility] [address] [id number] [address] [place] [address], [place] [address] SP Oct, SP [facility] [address] [id number] [address] [place] [address], [place] [address] SP Oct, SP [facility] [address] [id number] [address] [place] [address], [place] [address] SP Oct, SP [facility] [address] [id number] [address] [place] [address], [place] [address] SP Oct, SP [facility] [address] [id number] [address] [place] [address], [place] [address] SP Oct, SP [facility] [address] [id number] [address] [place] [address], [place] [address] SP Aug, SP [facility] [address] [id number] [address] [place] [address], [place] [address] SP Jul, SP [facility] [address] [id number] [address] [place] [address], [place] [address] SP Jul, SP [facility] [address] [id number] [address] [place] [address], [place] [address] SP Jul, SP [facility] [address] [id number] [address] [place] [address], [place] [address] SP Jul, SP [facility] [address] [id number] [address] [place] [address], [place] [address] SP Jul, SP [facility] [address] [id number] [address] [place] [address], [place] [address] SP Jul, SP [facility] [address] [id number] [address] [place] [address], [place] [address] SP Jul, SP [facility] [address] [id number] [address] [place] [address], [place] [address] SP Jun, SP [facility] [address] [id number] [address] [place] [address], [place] [address] SP May, SP [facility] [address] [id number] [address] [place] [address], [place] [address] SP May, SP [facility] [address] [id number] [address] [place] [address], [place] [address] SP May, SP [facility] [address] [id number] [address] [place] [address], [place] [address] SP Apr, SP [facility] [address] [id number] [address] [place] [address], [place] [address] SP Apr, SP [facility] [address] [id number] [address] [place] [address], [place] [address] SP Apr, SP [facility] [address] [id number] [address] [place] [address], [place] [address] SP Apr, SP [facility] [address] [id number] [address] [place] [address], [place] [address] SP Apr, SP [facility] [address] [id number] [address] [place] [address], [place] [address] SP Apr, SP [facility] [address] [id number] [address] [place] [address], [place] [address] SP Mar, SP [facility] [address] [id number] [address] [place] [address], [place] [address] SP Mar, SP [facility] [address] [id number] [address] [place] [address], [place] [address] SP Mar, SP [facility] [address] [id number] [address] [place] [address], [place] [address] SP Mar, SP [facility] [address] [id number] [address] [place] [address], [place] [address] SP Mar, SP [facility] [address] [id number] [address] [place] [address], [place] [address] SP Mar, SP [facility] [address] [id number] [address] [place] [address], [place] [address] SP Mar, SP [facility] [address] [id number] [address] [place] [address], [place] [address] SP Dec, SP [facility] [address] [id number] [address] [place] [address], [place] [address] SP Aug, SP [facility] [address] [id number] [address] [place] [address], [place] [address] SP Apr, SP [facility] [address] [id number] [address] [place] [address], [place] [address] SP Mar, SP [facility] [address] [id number] [address] [place] [address] SP Mar, SP [facility] [address] [id number] [address] [place] [address] SP Mar, SP [facility] [address] [id number] [address] [place] [address] SP Mar, SP [facility] [address] [id number] [address] [place] [address] SP September, SP [facility] [address] [id number] [address] [place] [address] SP Mar, SP [facility] [address] [facility] [id number] [address] [place] [address] SP Feb, SP [facility] [address] [facility] [id number] [address] [place] [address] SP Oct, SP [facility] [address] [facility] [id number] [address] [place] [address] SP September, SP [facility] [address] [facility] [id number] [address] [place] [address] SP Apr, SP [facility] [address] [facility] [id number] [address] [place] [address] SP Mar, SP IMMUNIZATIONS No Known Immunizations SOCIAL HISTORY Never Assessed REASON FOR VISIT PLAN OF CARE VITAL SIGNS Height 65 in 2014-06-02 POS Weight 260.19 lbs 2014-06-02 POS Temperature 97.8 degrees Fahrenheit 2014-06-02 POS Heart Rate 74 bpm 2014-06-02 POS Respiratory Rate 20 2014-06-02 POS Blood pressure systolic 134 mmHg 2014-06-02 POS Blood pressure diastolic 86 mmHg 2014-06-02 POS MEDICATIONS Unknown Medications RESULTS No Results PROCEDURES Procedure Date Ordered Result Body Site POS COMPREHEN METABOLIC PANEL Jun 02, 2014 SP VENIPUNCT, ROUTINE* Jun 02, 2014 SP INSTRUCTIONS MEDICATIONS ADMINISTERED No Known [...]
--- OUTSIDE RECORDS SUMMARY | 2019-04-01 02:17 | XMS REPORT ---
Author Author Migration, Doctor POS Organization [facility] SP Address Unknown SP Phone Unavailable SP Care Team Providers Care Sales Expert Name Role Phone POS Migration, Doctor Unavailable Unavailable SP PROBLEMS Type Condition ICD9-CM Code AAX87-PA Code Onset Dates Condition S tatus SNOMED POS Problem Peripheral vascular disease I73.9 Ac tive [id number] POS Problem Urinary, incontinence, stress female N39.3 Active [id number] SP Problem Chronic kidney disease, unspecified N18.9 Active [id number] SP Problem Dysphagia, unspecified R13.10 Active 51486812 SP Problem Anemia of chronic disease D63.8 Acti ve [id number] SP Problem Cervicalgia M54.2 Active 86262900 49484 SP Problem Essential hypertension I10 Active 69763418 SP Problem 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 714927780 SP Problem Abdominal aortic aneurysm (AAA) without rupture I7 1.4 Active SP Problem Seasonal allergic rhinitis, unspecified allergic rhinitis trigger SP Active 886588825 SP Problem Prediabetes R73.03 Active 28059685 2 SP Problem Mixed hyperlipidemia E78.2 Active 651351350 SP Problem Stenosis of right renal artery I70.1 Active [id number] SP Problem Chronic obstructive pulmonary disease, unspecified COPD ty pe J44.9 SP 11988838 SP Problem Gastroesophageal reflux disease without esophagitis K21.9 Active SP Problem Hepatic steatosis K76.0 Active 19 5558805 SP Problem Renal artery stenosis I70.1 Active 173550497 SP Problem PVD (peripheral vascular disease) I73.9 Active 582534827 SP Problem Arthritis of knee M17.10 Active 37 6701213 SP Problem Other chronic pain G89.29 Active 8 6464323 SP ALLERGIES No Information ENCOUNTERS Encounter Location Date Diagnosis POS [facility] [address] [facility]NOTE 3] [id number] [address] [place], [place] SP Oct, Cellulitis of right upper ex tremity L03.113 and Morbid obesity SP [facility] [address] [place] [address] September, Dysuria R30.0 SP Right forearm cellulitis L03.113 [place] [address] [address] SP Jul, Contact dermatitis and other eczema, due to unspecified cause SP ; Morbid obesity E66.01 ; Essential hypertension I10 ; Chronic obstructive pulmonary disease, unspecified COPD type J44.9 ; Chronic kidney disease, unspecified N18.9 and Mixed hyperlipidemia E78.2 [facility] [address] SP Jul, Skin infection L08.9 and Mor bid obesity E66.01 SP [facility] [place] [address] SP Jun, Cellulitis of right arm L03. 113 and BMI 45.0-49.9, adult Z68.42 SP [place] [address] [address] SP May, SP [place] [address] [address] SP May, Chronic obstructive pulmonar y disease, unspecified COPD type SP ; Viral upper respiratory tract infection J06.9 and BMI 45.0-49.9, adult Z68.42 [place] [address] [address] [place] [id number] [place] [address] SP Mar, BMI 45.0-49.9, adult Z68.42 ; Chronic urticaria L50.8 and Skin SP L08.9 [place] [address] [address] [place] [id number] [address] [place] [address] SP Mar, Dermatitis L30.9 and BMI 45. 0-49.9, adult Z68.42 SP [place] [address] [place] [id number] [place] [address] SP Feb, Cellulitis of right upper ex tremity L03.113 and BMI 45.0-49.9, SP Z68.42 [place] [address] [address] SP Feb, Cellulitis of right arm L03. 113 and Status post cardiac SP Z98.890 [place] [address] [address] SP Feb, SP [place] [address] [address] SP Feb, Chronic obstructive pulmonar y disease, unspecified COPD type SP ; Essential hypertension I10 ; Encounter for immunization Z23 ; Mixed hyperlipidemia E78.2 and BMI 45.0-49.9, adult Z68.42 [place] [address] [address] SP Feb, Dysuria R30.0 ; Acute cystit is without hematuria N30.00 and BMI SP49.9, adult Z68.42 [place] [address] [address] SP Dec, SP [place] [address] [address] SP Dec, Essential hypertension I10 ; Chronic kidney disease, unspecified SP ; Mixed hyperlipidemia E78.2 ; Tinea corporis B35.4 ; Right hip pain M25.551 and Acute pain of right knee M25.561 [place] [address] [address] SP Dec, Herpes zoster without compli cation B02.9 ; Dandruff L21.0 ; SP unspecified type R19.7 and BMI 45.0-49.9, adult Z68.42 [place] [address] [address] SP September, Chronic kidney disease, unsp ecified N18.9 ; Essential SP I10 ; Mixed hyperlipidemia E78.2 and BMI 45.0-49.9, adult Z68.42 [place] [address] [address] SP September, SP [place] [address] [address] SP September, Essential hypertension I10 ; Chronic kidney disease, unspecified SP ; Prediabetes R73.03 ; Low back pain M54.5 ; Other chronic pain G89.29 ; Arthritis of knee M17.10 ; Pure hyperglyceridemia E78.1 ; Anemia of chronic disease D63.8 and BMI 45.0-49.9, adult Z68.42 [place] [address] [address] SP Aug, SP [place] [address] [address] SP Jul, Abdominal aortic aneurysm (A AA) without rupture I71.4 ; PVD SP vascular disease) I73.9 ; Renal artery stenosis I70.1 and Essential hypertension I10 [place] [address] [address] SP May, Essential hypertension I10 ; Pure hyperglyceridemia E78.1 ; SP aortic aneurysm (AAA) without rupture I71.4 ; Chronic kidney disease, unspecified N18.9 ; Gastroesophageal reflux disease without esophagitis K21.9 ; 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 ; Stenosis of right renal artery I70.1 ; Anemia of chronic disease D63.8 and Prediabetes R73.03 [place] [address] [address] SP May, Tinea corporis B35.4 and Vir al URI J06.9 SP [place] [address] [address] SP May, SP [place] [address] [address] SP Apr, SP [place] [address] [address] SP Apr, Cervical radiculopathy M54.1 2 SP [facility] [address] [facility]NOTE 3] [id number] [address] [place] [address] SP Apr, Flank pain R10.9 and Acute p yelonephritis N10 SP [facility] [address] [facility]NOTE 3] [id number] [address] [place] [address] SP Apr, SP [facility] [address] [address] SP Mar, SP [facility] [address] [facility]NOTE 3] [id number] [address] [place] [address] SP Feb, Pain of right shoulder regio n M25.511 SP [facility] [address] [place] [id number] [place] [address] SP Feb, History of glaucoma Z86.69 ; Vision changes H53.9 ; Abdominal SP aneurysm (AAA) without rupture I71.4 ; Xerosis of skin L85.3 and Pain in right shoulder M25.511 [facility] [address] [place] [id number] [place] [address] SP Feb, SP [facility] [address] [place] [id number] [place] [address] SP Jan, Essential hypertension I10 ; Pure hyperglyceridemia E78.1 ; SP kidney disease, unspecified N18.9 ; Gastroesophageal reflux disease without esophagitis K21.9 ; 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 ; Stenosis of right renal artery I70.1 ; Anemia of chronic disease D63.8 ; Prediabetes R73.03 ; Pain of right shoulder region M25.511 and Homeless Z59.0 [place] [address] [address] [place] [id number] [place] [address] SP Jan, Neck pain M54.2 and Seasonal allergic rhinitis, unspecified SP rhinitis trigger J30.2 [facility] [address] [place] [id number] [place] [address] SP Dec, SP [facility] [address] [place] [id number] [place] [address] SP Dec, SP [place] [address] [place] [id number] [place] [address] SP Dec, Blood glucose abnormal R73.0 9 [...] H. 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 ; Abdominal aortic aneurysm (AAA) without rupture I71.4 ; Stenosis of right renal artery I70.1 ; Anemia of chronic disease D63.8 and Acute non-recurrent maxillary sinusitis J01.00 [place] [address] [address] [place] [id number] [place] [address] SP Jun, Acute non-recurrent maxillar y sinusitis J01.00 ; Acute mucoid SP media of left ear H65.112 ; Nausea R11.0 and Fever and chills R50.9 [place] [address] [address] [place] [id number] [place] [address] SP May, Acute right flank pain R10.9 SP [facility] [address] [facility]NOTE 3] [id number] [address] [place] [address] SP Apr, Acute nasopharyngitis J00 ; Pure hyperglyceridemia E78.1 and SP kidney disease, unspecified N18.9 [facility] [address] [facility]NOTE 3] [id number] [address] [place] [address] SP Apr, SP [facility] [address] [facility]NOTE 3] [id number] [address] [place] [address] SP Apr, Blood glucose abnormal R73.0 9 ; Essential hypertension I10 ; Pure SPhyperglyceridemia E78.1 ; Chronic kidney disease, unspecified N18.9 ; Gastroesophageal reflux disease without esophagitis K21.9 ; 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 ; Abdominal aortic aneurysm (AAA) without rupture I71.4 ; Stenosis of right renal artery I70.1 ; RUQ pain R10.11 and Anemia of chronic disease D63.8 [facility] [address] [facility]NOTE 3] [id number] [address] [place] [address] SP Mar, Blood glucose abnormal R73.0 9 SP [facility] [address] [facility]NOTE 3] [id number] [address] [place] [address] SP Mar, Cellulitis of right lower le g L03.115 SP [facility] [address] [facility]NOTE 3] [id number] [address] [place] [address] SP Feb, SP [facility] [address] [place] [id number] [place] [address] SP Feb, Dysuria R30.0 and Upper resp iratory tract infection, unspecified SP J06.9 [facility] [address] [facility]NOTE 3] [id number] [address] [place] [address] SP Jan, SP [facility] [address] [facility]NOTE [facility]] [id number] [address] [place] [address] SP Jan, SP [facility] [address] [place] [id number] [place] [address] SP Dec, SP [place] [address] [place] [id number] [place] [address] SP Dec, Anemia of chronic disease D6 3.8 ; Essential hypertension I10 ; SP hyperglyceridemia E78.1 ; Chronic kidney disease, unspecified N18.9 ; Gastroesophageal reflux disease without esophagitis K21.9 ; 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 and Pain in right knee M25.[address] [address] SP Dec, Left shoulder strain, subseq uent encounter S46.912D ; Urinary SP R35.0 ; Lung nodule, solitary R91.1 ; Essential hypertension I10 and Acute cystitis without hematuria N30.[address] [address] SP Nov, Left-sided chest wall pain R 07.89 and Abnormal chest xray R93.[address] [address] SP Nov, Pain of right lower extremit y M79.604 ; Swelling of right lower SP M79.89 ; Diarrhea, unspecified R19.7 ; Nausea with vomiting, unspecified R11.2 ; Left-sided chest wall pain R07.89 ; Chronic kidney disease, unspecified N18.9 ; Gastroesophageal reflux disease without esophagitis K21.9 and Other seasonal allergic rhinitis J30.[address] [address] SP September, Essential hypertension I10 ; Chronic kidney disease, unspecified SP ; Anemia of chronic disease D63.8 ; Pure hyperglyceridemia E78.1 ; Peripheral vascular disease I73.9 ; Abnormal glucose R73.09 ; 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 ; Gastroesophageal reflux disease without esophagitis K21.9 ; Allergic rhinitis J30.9 and Rash R21 [place] [id number] [place] [address] SP Aug, Abdominal pain R10.9 and Con stipation K59.00 SP [place] [address] [place] [id number] [place] [address] SP Jul, Injury of toe on right foot S99.921A SP [place] [address] [place] [id number] [place] [address] SP 14 Jul, 2015 SP [place] [address] [place] [id number] [place] [address] SP Jul, Essential hypertension I10 ; Chronic kidney disease, unspecified SP ; Anemia of chronic disease D63.8 ; Pure hyperglyceridemia E78.1 ; Peripheral vascular disease I73.9 ; Abnormal glucose R73.09 ; 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 ; Gastroesophageal reflux disease without esophagitis K21.9 and Allergic rhinitis J30.9 [place] [address] [place] [id number] [place] [address] SP Jun, Low back pain M54.5 SP [place] [address] [place] [id number] [place] [address] SP Jun, SP [place] [address] [place] [id number] [place] [address] SP May, URI (upper respiratory infec tion) J06.9 SP [place] [address] [place] [id number] [place] [address] SP Apr, Essential hypertension I10 SP [place] [address] [place] [id number] [place] [address] SP Apr, Essential hypertension I10 ; Chronic kidney disease, unspecified SP ; Anemia of chronic disease D63.8 ; Pure hyperglyceridemia E78.1 ; Peripheral vascular disease I73.9 ; Abnormal glucose R73.09 ; URI (upper respiratory infection) J06.9 ; 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 ; Gastroesophageal reflux disease without esophagitis K21.9 and Cough R05 [place] [address] [facility]NOTE [facility]] [id number] [address] [place] [address] SP Mar, Flank pain R10.9 and URI (up per respiratory infection) J06.9 SP [facility] [address] [address] SP Mar, Right-sided low back pain wi thout sciatica M54.5 and Hematuria, SP R31.9 [place] [address] [address] SP Mar, Hypopigmentation L81.9 and H yperpigmentation L81.9 SP [place] [address] [address] SP Mar, SP [place] [address] [address] SP Mar, Acute cystitis with hematuri a N30.01 SP [place] [address] [address] SP Mar, SP [place] [address] [address] SP Feb, Furuncle L02.92 ; Hypopigmen tation L81.9 ; Hyperpigmentation SP ; Urinary frequency R35.0 ; Screening for malignant neoplasm of cervix Z12.4 ; Vaginal discharge N89.8 ; Urinary, incontinence, stress female N39.3 and Vaginal irritation N89.8 [place] [address] [address] SP Jan, Muscle spasm 728.85 ; Unspec ified peripheral vascular disease SP ; Benign essential hypertension 401.1 ; Chronic renal insufficiency 585.9 ; Chronic constipation 564.00 ; GERD (gastroesophageal reflux disease) 530.81 ; Hyperlipidemia 272.4 and Chronic leg pain 729.5 [place] [address] [address] SP Jan, Sinusitis 473.9 SP [place] [address] [address] SP Dec, [place] [address] [place] [id number] [place] [address] SP Dec, Acute bronchitis 466.0 [place] [address] [address] SP Dec, Acute bronchitis 466.0 SP [place] [address] [address] SP Dec, Unspecified episodic mood di sorder 296.90 [place] [address] [address] SP Dec, Visit for suture removal V58 .[address] [address] SP Nov, Allergic rhinitis 477.9 and Onychomycosis 110.1 [place] [address] [address] SP Oct, Muscle spasm 728.85 ; Benign essential hypertension 401.1 ; SP renal insufficiency 585.9 ; Chronic constipation 564.00 ; GERD (gastroesophageal reflux disease) 530.81 and Hyperlipidemia 272.4 [place] [address] [place] [id number] [place] [address] SP Oct, Otalgia of left ear 388.70 [place] [address] [address] SP Oct, Unspecified episodic mood di sorder 296.90 [place] [address] [place] [id number] [place] [address] SP September, Unspecified episodic mood di sorder 296.90 [place] [address] [address] SP September, Unspecified episodic mood di sorder 296.90 [facility] [address] [place] [id number] [place] [address] SP September, Urinary frequency 788.41 and Constipation 564.00 SP [facility] [address] [id number] [address] [place] [address], [place] [address] SP 14 Aug, 2014 SP [facility] [address] [id number] [address] [place] [address], [place] [address] SP 13 Aug, 2014 SP [facility] [address] [id number] [address] [place] [address], [place] [address] SP Jul, SP [facility] [address] [id number] [address] [place] [address], [place] [address] SP Jul, SP [facility] [address] [id number] [address] [place] [address], [place] [address] SP Jul, SP [facility] [address] [id number] [address] [place] [address], [place] [address] SP Jul, SP [facility] [address] [id number] [address] [place] [address] SP Jul, SP [facility] [address] [id number] [address] [place] [address], [place] [address] SP Jul, SP [facility] [address] [id number] [address] [place] [address], [place] [address] SP Jul, SP [facility] [address] [id number] [address] [place] [address], [place] [address] SP Jul, SP [facility] [address] [id number] [address] [place] [address], [place] [address] SP Jul, SP [facility] [address] [id number] [address] [place] [address], [place] [address] SP Jul, SP [facility] [address] [id number] [address] [place] [address], [place] [address] SP Jun, SP [facility] [address] [id number] [address] [place] [address] SP Jun, SP [facility] [address] [id number] [address] [place] [address] SP May, SP [facility] [address] [id number] [address] [place] [address], [place] [address] SP May, SP [facility] [address] [id number] [address] [place] [address], [place] [address] SP May, SP [facility] [address] [id number] [address] [place] [address], [place] [address] SP May, SP [facility] [address] [id number] [address] [place] [address], [place] [address] SP May, SP [facility] [address] [id number] [address] [place] [address], [place] [address] SP May, SP [facility] [address] [id number] [address] [place] [address], [place] [address] SP May, SP [facility] [address] [id number] [address] [place] [address], [place] [address] SP May, SP [facility] [address] [id number] [address] [place] [address], [place] [address] SP May, SP [facility] [address] [id number] [address] [place] [address], [place] [address] SP May, SP [facility] [address] [id number] [address] [place] [address], [place] [address] SP May, SP [facility] [address] [id number] [address] [place] [address], [place] [address] SP May, SP [facility] [address] [id number] [address] [place] [address], [place] [address] SP May, SP [facility] [address] [id number] [address] [place] [address], [place] [address] SP Feb, SP [facility] [address] [id number] [address] [place] [address], [place] [address] SP Feb, SP [facility] [address] [id number] [facility] [address] SP 20 Sep, 2013 SP [facility] [address] [id number] [address] [place] [address], [place] [address] SP 20 Sep, 2013 SP [facility] [address] [id number] [address] [place] [address], [place] [address] SP 18 Sep, 2013 SP [facility] [address] [id number] [address] [place] [address], [place] [address] SP 18 Sep, 2013 SP [facility] [address] [id number] [address] [place] [address], [place] [address] SP 12 Jan, 2013 SP [facility] [address] [id number] [address] [place] [address], [place] [address] SP 12 Jan, 2013 SP [facility] [address] [id number] [address] [place] [address], [place] [address] SP 12 Jan, 2013 SP [facility] [address] [id number] [address] [place] [address], [place] [address] SP 12 Jan, 2013 SP [facility] [address] [id number] [address] [place] [address], [place] [address] SP 11 Jan, 2013 SP [facility] [address] [id number] [address] [place] [address], [place] [address] SP 11 Jan, 2013 SP [facility] [address] [id number] [address] [place] [address], [place] [address] SP 10 Jan, 2013 SP [facility] [address] [id number] [address] [place] [address], [place] [address] SP 10 Jan, 2013 SP [facility] [address] [id number] [address] [place] [address], [place] [address] SP Oct, SP [facility] [address] [id number] [address] [place] [address], [place] [address] SP Oct, SP [facility] [address] [id number] [address] [place] [address], [place] [address] SP Oct, SP [facility] [address] [id number] [address] [place] [address], [place] [address] SP Oct, SP [facility] [address] [id number] [address] [place] [address], [place] [address] SP Jun, SP [facility] [address] [id number] [address] [place] [address], [place] [address] SP Jun, SP [facility] [address] [id number] [address] [place] [address], [place] [address] SP Jun, SP [facility] [address] [id number] [address] [place] [address], [place] [address] SP Jun, SP [facility] [address] [id number] [address] [place] [address], [place] [address] SP Apr, SP [facility] [address] [id number] [address] [place] [address], [place] [address] SP Apr, SP [facility] [address] [id number] [address] [place] [address], [place] [address] SP Feb, SP [facility] [address] [id number] [address] [place] [address], [place] [address] SP Feb, SP [facility] [address] [id number] [address] [place] [address], [place] [address] SP Dec, SP [facility] [address] [id number] [address] [place] [address], [place] [address] SP Dec, SP [facility] [address] [id number] [address] [place] [address], [place] [address] SP Nov, SP [facility] [address] [id number] [address] [place] [address], [place] [address] SP Nov, SP [facility] [address] [id number] [address] [place] [address], [place] [address] SP Nov, SP [facility] [address] [id number] [address] [place] [address], [place] [address] SP Oct, SP [facility] [address] [id number] [address] [place] [address], [place] [address] SP September, SP [facility] [address] [id number] [address] [place] [address], [place] [address] SP September, SP [facility] [address] [address] [id number] [address] [place] [address], [place] [address] SP Aug, SP [facility] [address] [id number] [address] [place] [address], [place] [address] SP Aug, SP [facility] [address] [id number] [address] [place] [address], [place] [address] SP Aug, SP [facility] [address] [id number] [address] [place] [address], [place] [address] SP Aug, SP [facility] [address] [id number] [address] [place] [address], [place] [address] SP Aug, SP [facility] [address] [id number] [address] [place] [address], [place] [address] SP Aug, SP [facility] [address] [id number] [address] [place] [address], [place] [address] SP Jul, SP [facility] [address] [id number] [address] [place] [address], [place] [address] SP Jul, SP [facility] [address] [id number] [address] [place] [address], [place] [address] SP Jul, SP [facility] [address] [id number] [address] [place] [address], [place] [address] SP 15 Jul, 2012 SP [facility] [address] [id number] [address] [place] [address], [place] [address] SP Jul, SP [facility] [address] [id number] [address] [place] [address], [place] [address] SP Jul, SP [facility] [address] [id number] [address] [place] [address], [place] [address] SP Jun, SP [facility] [address] [id number] [address] [place] [address], [place] [address] SP Jun, SP [facility] [address] [id number] [address] [place] [address], [place] [address] SP May, SP [facility] [address] [id number] [address] [place] [address], [place] [address] SP May, SP [facility] [address] [id number] [address] [place] [address], [place] [address] SP Apr, SP [facility] [address] [id number] [address] [place] [address], [place] [address] SP Apr, SP [facility] [address] [id number] [address] [place] [address], [place] [address] SP Apr, SP [facility] [address] [id number] [address] [place] [address], [place] [address] SP Apr, SP [facility] [address] [id number] [address] [place] [address], [place] [address] SP Apr, SP [facility] [address] [id number] [address] [place] [address], [place] [address] SP Mar, SP [facility] [address] [id number] [address] [place] [address], [place] [address] SP Mar, SP [facility] [address] [id number] [address] [place] [address], [place] [address] SP Mar, SP [facility] [address] [id number] [address] [place] [address], [place] [address] SP Mar, SP [facility] [address] [id number] [address] [place] [address], [place] [address] SP Mar, SP [facility] [address] [id number] [address] [place] [address], [place] [address] SP Mar, SP [facility] [address] [id number] [address] [place] [address], [place] [address] SP Mar, SP [facility] [address] [id number] [address] [place] [address], [place] [address] SP Feb, SP [facility] [address] [id number] [address] [place] [address], [place] [address] SP Feb, SP [facility] [address] [id number] [address] [place] [address], [place] [address] SP Feb, SP [facility] [address] [id number] [address] [place] [address], [place] [address] SP Feb, SP [facility] [address] [id number] [address] [place] [address], [place] [address] SP Dec, SP [facility] [address] [id number] [address] [place] [address], [place] [address] SP Nov, SP [facility] [address] [id number] [address] [place] [address], [place] [address] SP Nov, SP [facility] [address] [id number] [address] [place] [address], [place] [address] SP Oct, SP [facility] [address] [id number] [address] [place] [address], [place] [address] SP Oct, SP [facility] [address] [id number] [address] [place] [address], [place] [address] SP Oct, SP [facility] [address] [id number] [address] [place] [address], [place] [address] SP Oct, SP [facility] [address] [id number] [address] [place] [address], [place] [address] SP Oct, SP [facility] [address] [id number] [address] [place] [address], [place] [address] SP Oct, SP [facility] [address] [id number] [address] [place] [address], [place] [address] SP Oct, SP [facility] [address] [id number] [address] [place] [address], [place] [address] SP Aug, SP [facility] [address] [id number] [address] [place] [address], [place] [address] SP Jul, SP [facility] [address] [id number] [address] [place] [address], [place] [address] SP Jul, SP [facility] [address] [id number] [address] [place] [address], [place] [address] SP Jul, SP [facility] [address] [id number] [address] [place] [address], [place] [address] SP Jul, SP [facility] [address] [id number] [address] [place] [address], [place] [address] SP Jul, SP [facility] [address] [id number] [address] [place] [address], [place] [address] SP Jul, SP [facility] [address] [id number] [address] [place] [address], [place] [address] SP Jul, SP [facility] [address] [id number] [address] [place] [address], [place] [address] SP Jun, SP [facility] [address] [id number] [address] [place] [address], [place] [address] SP May, SP [facility] [address] [id number] [address] [place] [address], [place] [address] SP May, SP [facility] [address] [id number] [address] [place] [address], [place] [address] SP May, SP [facility] [address] [id number] [address] [place] [address], [place] [address] SP Apr, SP [facility] [address] [id number] [address] [place] [address], [place] [address] SP Apr, SP [facility] [address] [id number] [address] [place] [address], [place] [address] SP Apr, SP [facility] [address] [id number] [address] [place] [address], [place] [address] SP Apr, SP [facility] [address] [id number] [address] [place] [address], [place] [address] SP Apr, SP [facility] [address] [id number] [address] [place] [address], [place] [address] SP Apr, SP [facility] [address] [id number] [address] [place] [address], [place] [address] SP Mar, SP [facility] [address] [id number] [address] [place] [address], [place] [address] SP Mar, SP [facility] [address] [id number] [address] [place] [address], [place] [address] SP Mar, SP [facility] [address] [id number] [address] [place] [address], [place] [address] SP Mar, SP [facility] [address] [id number] [address] [place] [address], [place] [address] SP Mar, SP [facility] [address] [id number] [address] [place] [address], [place] [address] SP Mar, SP [facility] [address] [id number] [address] [place] [address], [place] [address] SP Mar, SP [facility] [address] [id number] [address] [place] [address], [place] [address] SP Dec, SP [facility] [address] [id number] [address] [place] [address], [place] [address] SP Aug, SP [facility] [address] [id number] [address] [place] [address], [place] [address] SP Apr, SP [facility] [address] [id number] [address] [place] [address], [place] [address] SP Mar, SP [facility] [address] [id number] [address] [place] [address] SP Mar, SP [facility] [address] [id number] [address] [place] [address] SP Mar, SP [facility] [address] [facility]] [id number] [address] [place] [address] SP Mar, SP [facility] [address] [id number] [address] [place] [address] SP September, SP [facility] [address] [facility]] [id number] [address] [place] [address] SP Mar, SP [facility] [address] [facility]] [id number] [address] [place] [address] SP Feb, SP [facility] [address] [facility] 3] [id number] [address] [place] [address] SP Oct, SP [facility] [address] [facility]] [id number] [address] [place] [address] SP September, SP [facility] [address] [facility] 3] [id number] [address] [place] [address] SP Apr, SP [facility] [address] [facility] 3] [id number] [address] [place] [address] SP Mar, SP IMMUNIZATIONS No Known Immunizations [...]
--- OUTSIDE RECORDS SUMMARY | 2019-04-01 02:18 | XMS REPORT ---
Author Author Migration, Doctor POS Organization [facility] SP Address Unknown SP Phone Unavailable SP Care Team Providers Care [employer] Name Role Phone POS Migration, Doctor Unavailable Unavailable SP PROBLEMS Type Condition ICD9-CM Code VZS42-ML Code Onset Dates Condition S tatus SNOMED POS Problem Peripheral vascular disease I73.9 Ac tive [id number] POS Problem Urinary, incontinence, stress female N39.3 Active [id number] SP Problem Chronic kidney disease, unspecified N18.9 Active 241752602 SP Problem Dysphagia, unspecified R13.10 Active 61198682 SP Problem Anemia of chronic disease D63.8 Acti ve 792012040 SP Problem Cervicalgia M54.2 Active [id number] [id number] SP Problem Essential hypertension I10 Active 51724406 SP Problem 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 526751416 SP Problem Abdominal aortic aneurysm (AAA) without rupture I7 1.4 Active SP Problem Seasonal allergic rhinitis, unspecified allergic rhinitis trigger SP Active 258391315 SP Problem Prediabetes R73.03 Active 17701611 2 SP Problem Mixed hyperlipidemia E78.2 Active 460524155 SP Problem Stenosis of right renal artery I70.1 Active [id number] SP Problem Chronic obstructive pulmonary disease, unspecified COPD ty pe J44.9 SP 83103651 SP Problem Gastroesophageal reflux disease without esophagitis K21.9 Active SP Problem Hepatic steatosis K76.0 Active 19 0346212 SP Problem Renal artery stenosis I70.1 Active 357505540 SP Problem PVD (peripheral vascular disease) I73.9 Active 284332947 SP Problem Arthritis of knee M17.10 Active 37 6351520 SP Problem Other chronic pain G89.29 Active 8 1404066 SP ALLERGIES No Information ENCOUNTERS Encounter Location Date Diagnosis POS [facility] [address] [facility] [id number] [address] [place], [place] SP Oct, Cellulitis of right upper ex tremity L03.113 and Morbid obesity SP [facility] [address] [place] [address] September, Dysuria R30.0 SP Right forearm cellulitis L03.113 [place] [address] [address] SP Jul, Contact dermatitis and other eczema, due to unspecified cause SP ; Morbid obesity E66.01 ; Essential hypertension I10 ; Chronic obstructive pulmonary disease, unspecified COPD type J44.9 ; Chronic kidney disease, unspecified N18.9 and Mixed hyperlipidemia E78.2 [facility] [address] SP Jul, Skin infection L08.9 and Mor bid obesity E66.01 SP [facility] [place] [address] SP Jun, Cellulitis of right arm L03. 113 and BMI 45.0-49.9, adult Z68.42 SP [place] [address] [address] SP May, SP [place] [address] [address] SP May, Chronic obstructive pulmonar y disease, unspecified COPD type SP ; Viral upper respiratory tract infection J06.9 and BMI 45.0-49.9, adult Z68.42 [place] [address] [address] [place] [id number] [address] [place] [id number] SP Mar, BMI 45.0-49.9, adult Z68.42 ; Chronic urticaria L50.8 and Skin SP L08.9 [place] [address] [address] [place] [id number] [address] [place] [address] SP Mar, Dermatitis L30.9 and BMI 45. 0-49.9, adult Z68.42 SP [place] [address] [address] [place] [id number] [address] [place] [id number] SP Feb, Cellulitis of right upper ex tremity L03.113 and BMI 45.0-49.9, SP Z68.42 [place] [address] [address] SP Feb, Cellulitis of right arm L03. 113 and Status post cardiac SP Z98.890 [place] [address] [address] SP Feb, SP [place] [address] [address] SP Feb, Chronic obstructive pulmonar y disease, unspecified COPD type SP ; Essential hypertension I10 ; Encounter for immunization Z23 ; Mixed hyperlipidemia E78.2 and BMI 45.0-49.9, adult Z68.42 [place] [address] [address] SP Feb, Dysuria R30.0 ; Acute cystit is without hematuria N30.00 and BMI SP49.9, adult Z68.42 [place] [address] [address] SP Dec, SP [place] [address] [address] SP Dec, Essential hypertension I10 ; Chronic kidney disease, unspecified SP ; Mixed hyperlipidemia E78.2 ; Tinea corporis B35.4 ; Right hip pain M25.551 and Acute pain of right knee M25.561 [place] [address] [address] SP Dec, Herpes zoster without compli cation B02.9 ; Dandruff L21.0 ; SP unspecified type R19.7 and BMI 45.0-49.9, adult Z68.42 [place] [address] [address] SP September, Chronic kidney disease, unsp ecified N18.9 ; Essential SP I10 ; Mixed hyperlipidemia E78.2 and BMI 45.0-49.9, adult Z68.42 [place] [address] [address] SP September, SP [place] [address] [address] SP September, Essential hypertension I10 ; Chronic kidney disease, unspecified SP ; Prediabetes R73.03 ; Low back pain M54.5 ; Other chronic pain G89.29 ; Arthritis of knee M17.10 ; Pure hyperglyceridemia E78.1 ; Anemia of chronic disease D63.8 and BMI 45.0-49.9, adult Z68.42 [place] [address] [address] SP Aug, SP [place] [address] [address] SP Jul, Abdominal aortic aneurysm (A AA) without rupture I71.4 ; PVD SP vascular disease) I73.9 ; Renal artery stenosis I70.1 and Essential hypertension I10 [place] [address] [address] SP May, Essential hypertension I10 ; Pure hyperglyceridemia E78.1 ; SP aortic aneurysm (AAA) without rupture I71.4 ; Chronic kidney disease, unspecified N18.9 ; Gastroesophageal reflux disease without esophagitis K21.9 ; 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 ; Stenosis of right renal artery I70.1 ; Anemia of chronic disease D63.8 and Prediabetes R73.03 [place] [address] [address] SP May, Tinea corporis B35.4 and Vir al URI J06.9 SP [place] [address] [address] SP May, SP [place] [address] [address] SP Apr, SP [place] [address] [address] SP Apr, Cervical radiculopathy M54.1 2 SP [facility] [address] [facility] [id number] [address] [place] [address] SP Apr, Flank pain R10.9 and Acute p yelonephritis N10 SP [facility] [address] [facility] [id number] [address] [place] [address] SP Apr, SP [facility] [address] [address] SP Mar, SP [facility] [address] [facility] [id number] [address] [place] [address] SP Feb, Pain of right shoulder regio n M25.511 SP [facility] [address] [place] [id number] [address] [place] [address] SP Feb, History of glaucoma Z86.69 ; Vision changes H53.9 ; Abdominal SP aneurysm (AAA) without rupture I71.4 ; Xerosis of skin L85.3 and Pain in right shoulder M25.511 [facility] [address] [place] [id number] [place] [address] SP Feb, SP [facility] [address] [place] [id number] [address] [place] [address] SP Jan, Essential hypertension I10 ; Pure hyperglyceridemia E78.1 ; SP kidney disease, unspecified N18.9 ; Gastroesophageal reflux disease without esophagitis K21.9 ; 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 ; Stenosis of right renal artery I70.1 ; Anemia of chronic disease D63.8 ; Prediabetes R73.03 ; Pain of right shoulder region M25.511 and Homeless Z59.0 [place] [address] [address] [place] [id number] [place] [address] SP Jan, Neck pain M54.2 and Seasonal allergic rhinitis, unspecified SP rhinitis trigger J30.2 [facility] [address] [place] [id number] [address] [place] [address] SP Dec, SP [facility] [address] [place] [address] [place] [address] SP Dec, SP [place] [address] [place] [id number] [place] [address] SP Dec, Blood glucose abnormal R73.0 9 [...] Prediabetes R73.03 [facility] [address] SP Oct, Seasonal allergic rhinitis, unspecified allergic rhinitis SP J30.2 [place] [address] [address] SP September, Eustachian tube dysfunction, left H69.82 and Candidiasis of SP B37.89 [place] [address] [address] [place] [id number] [place] [address] SP Jul, Blood glucose abnormal R73.0 9 ; Essential hypertension I10 ; Pure SPhyperglyceridemia E78.1 ; Chronic kidney disease, unspecified N18.9 ; Gastroesophageal reflux disease without esophagitis K21.9 ; 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 ; Abdominal aortic aneurysm (AAA) without rupture I71.4 ; Stenosis of right renal artery I70.1 ; Anemia of chronic disease D63.8 and Acute non-recurrent maxillary sinusitis J01.00 [place] [address] [address] [place] [id number] [address] [place] [address] SP Jun, Acute non-recurrent maxillar y sinusitis J01.00 ; Acute mucoid SP media of left ear H65.112 ; Nausea R11.0 and Fever and chills R50.9 [place] [address] [address] [place] [id number] [address] [place] [address] SP May, Acute right flank pain R10.9 SP [facility] [address] [facility] [id number] [address] [place] [phone] SP Apr, Acute nasopharyngitis J00 ; Pure hyperglyceridemia E78.1 and SP kidney disease, unspecified N18.9 [facility] [address] [facility] [id number] [address] [place] [address] SP Apr, SP [facility] [address] [facility] [id number] [address] [place] [address] SP Apr, Blood glucose abnormal R73.0 9 ; Essential hypertension I10 ; Pure SPhyperglyceridemia E78.1 ; Chronic kidney disease, unspecified N18.9 ; Gastroesophageal reflux disease without esophagitis K21.9 ; 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 ; Abdominal aortic aneurysm (AAA) without rupture I71.4 ; Stenosis of right renal artery I70.1 ; RUQ pain R10.11 and Anemia of chronic disease D63.8 [facility] [address] [facility] [id number] [address] [place] [address] SP Mar, Blood glucose abnormal R73.0 9 SP [facility] [address] [facility] [id number] [address] [place] [address] SP Mar, Cellulitis of right lower le g L03.115 SP [facility] [address] [facility] [id number] [address] [place] [address] SP Feb, SP [facility] [address] [place] [id number] [address] [place] [id number] SP Feb, Dysuria R30.0 and Upper resp iratory tract infection, unspecified SP J06.9 [facility] [address] [facility] [id number] [address] [place] [phone] SP Jan, SP [facility] [address] [facility] [id number] [address] [place] [phone] SP Jan, SP [facility] [address] [place] [id number] [address] [place] [phone] SP Dec, SP [place] [address] [address] [place] [id number] [place] [address] SP Dec, Anemia of chronic disease D6 3.8 ; Essential hypertension I10 ; SP hyperglyceridemia E78.1 ; Chronic kidney disease, unspecified N18.9 ; Gastroesophageal reflux disease without esophagitis K21.9 ; 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 and Pain in right knee M25.[address] [address] SP Dec, Left shoulder strain, subseq uent encounter S46.912D ; Urinary SP R35.0 ; Lung nodule, solitary R91.1 ; Essential hypertension I10 and Acute cystitis without hematuria N30.[address] [address] SP Nov, Left-sided chest wall pain R 07.89 and Abnormal chest xray R93.[address] [address] SP Nov, Pain of right lower extremit y M79.604 ; Swelling of right lower SP M79.89 ; Diarrhea, unspecified R19.7 ; Nausea with vomiting, unspecified R11.2 ; Left-sided chest wall pain R07.89 ; Chronic kidney disease, unspecified N18.9 ; Gastroesophageal reflux disease without esophagitis K21.9 and Other seasonal allergic rhinitis J30.[address] [address] SP September, Essential hypertension I10 ; Chronic kidney disease, unspecified SP ; Anemia of chronic disease D63.8 ; Pure hyperglyceridemia E78.1 ; Peripheral vascular disease I73.9 ; Abnormal glucose R73.09 ; 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 ; Gastroesophageal reflux disease without esophagitis K21.9 ; Allergic rhinitis J30.9 and Rash R21 [place] [id number] [place] [phone] SP Aug, Abdominal pain R10.9 and Con stipation K59.00 SP [place] [address] [address] [place] [id number] [address] [place] [phone] SP Jul, Injury of toe on right foot S99.921A SP [place] [address] [address] [place] [id number] [address] [place] [address] SP 14 Jul, 2015 SP [place] [address] [place] [id number] [place] [address] SP Jul, Essential hypertension I10 ; Chronic kidney disease, unspecified SP ; Anemia of chronic disease D63.8 ; Pure hyperglyceridemia E78.1 ; Peripheral vascular disease I73.9 ; Abnormal glucose R73.09 ; 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 ; Gastroesophageal reflux disease without esophagitis K21.9 and Allergic rhinitis J30.9 [place] [address] [address] [place] [id number] [address] [place] [address] SP Jun, Low back pain M54.5 SP [place] [address] [place] [id number] [place] [address] SP Jun, SP [place] [address] [place] [id number] [place] [phone] SP May, URI (upper respiratory infec tion) J06.9 SP [place] [address] [address] [place] [id number] [address] [place] [phone] SP Apr, Essential hypertension I10 SP [place] [address] [address] [place] [id number] [place] [address] SP Apr, Essential hypertension I10 ; Chronic kidney disease, unspecified SP ; Anemia of chronic disease D63.8 ; Pure hyperglyceridemia E78.1 ; Peripheral vascular disease I73.9 ; Abnormal glucose R73.09 ; URI (upper respiratory infection) J06.9 ; 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 ; Gastroesophageal reflux disease without esophagitis K21.9 and Cough R05 [place] [address] [facility] [id number] [address] [place] [address] SP Mar, Flank pain R10.9 and URI (up per respiratory infection) J06.9 SP [facility] [address] [address] SP Mar, Right-sided low back pain wi thout sciatica M54.5 and Hematuria, SP R31.9 [place] [address] [address] SP Mar, Hypopigmentation L81.9 and H yperpigmentation L81.9 SP [place] [address] [address] SP Mar, SP [place] [address] [address] SP Mar, Acute cystitis with hematuri a N30.01 SP [place] [address] [address] SP Mar, SP [place] [address] [address] SP Feb, Furuncle L02.92 ; Hypopigmen tation L81.9 ; Hyperpigmentation SP ; Urinary frequency R35.0 ; Screening for malignant neoplasm of cervix Z12.4 ; Vaginal discharge N89.8 ; Urinary, incontinence, stress female N39.3 and Vaginal irritation N89.8 [place] [address] [address] SP Jan, Muscle spasm 728.85 ; Unspec ified peripheral vascular disease SP ; Benign essential hypertension 401.1 ; Chronic renal insufficiency 585.9 ; Chronic constipation 564.00 ; GERD (gastroesophageal reflux disease) 530.81 ; Hyperlipidemia 272.4 and Chronic leg pain 729.5 [place] [address] [address] SP Jan, Sinusitis 473.9 SP [place] [address] [address] SP Dec, [place] [address] [place] [id number] [place] [address] SP Dec, Acute bronchitis 466.0 [place] [address] [address] SP Dec, Acute bronchitis 466.0 SP [place] [address] [address] SP Dec, Unspecified episodic mood di sorder 296.90 [place] [address] [address] SP Dec, Visit for suture removal V58 .[address] [address] SP Nov, Allergic rhinitis 477.9 and Onychomycosis 110.1 [place] [address] [address] SP Oct, Muscle spasm 728.85 ; Benign essential hypertension 401.1 ; SP renal insufficiency 585.9 ; Chronic constipation 564.00 ; GERD (gastroesophageal reflux disease) 530.81 and Hyperlipidemia 272.4 [place] [address] [address] [place] [id number] [address] [place] [address] SP Oct, Otalgia of left ear 388.70 [place] [address] [address] SP Oct, Unspecified episodic mood di sorder 296.90 [place] [address] [place] [id number] [place] [address] SP September, Unspecified episodic mood di sorder 296.90 [place] [address] [address] SP September, Unspecified episodic mood di sorder 296.90 [facility] [address] [place] [id number] [place] [address] SP September, Urinary frequency 788.41 and Constipation 564.00 SP [facility] [address] [id number] [address] [place] [address], [place] [address] SP 14 Aug, 2014 SP [facility] [address] [id number] [address] [place] [address], [place] [address] SP 13 Aug, 2014 SP [facility] [address] [id number] [address] [place] [address], [place] [address] SP Jul, SP [facility] [address] [id number] [address] [place] [address], [place] [address] SP Jul, SP [facility] [address] [id number] [address] [place] [address], [place] [address] SP Jul, SP [facility] [address] [id number] [address] [place] [address], [place] [address] SP Jul, SP [facility] [address] [id number] [address] [place] [phone] SP Jul, SP [facility] [address] [id number] [address] [place] [address], [place] [address] SP Jul, SP [facility] [address] [id number] [address] [place] [address], [place] [address] SP Jul, SP [facility] [address] [id number] [address] [place] [address], [place] [address] SP Jul, SP [facility] [address] [id number] [address] [place] [address], [place] [address] SP Jul, SP [facility] [address] [id number] [address] [place] [address], [place] [address] SP Jul, SP [facility] [address] [id number] [address] [place] [address], [place] [address] SP Jun, SP [facility] [address] [id number] [address] [place] [phone] SP Jun, SP [facility] [address] [id number] [address] [place] [phone] SP May, SP [facility] [address] [id number] [address] [place] [address], [place] [address] SP May, SP [facility] [address] [id number] [address] [place] [address], [place] [address] SP May, SP [facility] [address] [id number] [address] [place] [address], [place] [address] SP May, SP [facility] [address] [id number] [address] [place] [address], [place] [address] SP May, SP [facility] [address] [id number] [address] [place] [address], [place] [address] SP May, SP [facility] [address] [id number] [address] [place] [address], [place] [address] SP May, SP [facility] [address] [id number] [address] [place] [address], [place] [address] SP May, SP [facility] [address] [id number] [address] [place] [address], [place] [address] SP May, SP [facility] [address] [id number] [address] [place] [address], [place] [address] SP May, SP [facility] [address] [id number] [address] [place] [address], [place] [address] SP May, SP [facility] [address] [id number] [address] [place] [address], [place] [address] SP May, SP [facility] [address] [id number] [address] [place] [address], [place] [address] SP May, SP [facility] [address] [id number] [address] [place] [address], [place] [address] SP Feb, SP [facility] [address] [id number] [address] [place] [address], [place] [address] SP Feb, SP [facility] [address] [id number] [facility] [place] [address] SP 20 Sep, 2013 SP [facility] [address] [id number] [address] [place] [address], [place] [address] SP 20 Sep, 2013 SP [facility] [address] [id number] [address] [place] [address], [place] [address] SP 18 Sep, 2013 SP [facility] [address] [id number] [address] [place] [address], [place] [address] SP 18 Sep, 2013 SP [facility] [address] [id number] [address] [place] [address], [place] [address] SP 12 Jan, 2013 SP [facility] [address] [id number] [address] [place] [address], [place] [address] SP 12 Jan, 2013 SP [facility] [address] [id number] [address] [place] [address], [place] [address] SP 12 Jan, 2013 SP [facility] [address] [id number] [address] [place] [address], [place] [address] SP 12 Jan, 2013 SP [facility] [address] [id number] [address] [place] [address], [place] [address] SP 11 Jan, 2013 SP [facility] [address] [id number] [address] [place] [address], [place] [address] SP 11 Jan, 2013 SP [facility] [address] [id number] [address] [place] [address], [place] [address] SP 10 Jan, 2013 SP [facility] [address] [id number] [address] [place] [address], [place] [address] SP 10 Jan, 2013 SP [facility] [address] [id number] [address] [place] [address], [place] [address] SP Oct, SP [facility] [address] [id number] [address] [place] [address], [place] [address] SP Oct, SP [facility] [address] [id number] [address] [place] [address], [place] [address] SP Oct, SP [facility] [address] [id number] [address] [place] [address], [place] [address] SP Oct, SP [facility] [address] [id number] [address] [place] [address], [place] [address] SP Jun, SP [facility] [address] [id number] [address] [place] [address], [place] [address] SP Jun, SP [facility] [address] [id number] [address] [place] [address], [place] [address] SP Jun, SP [facility] [address] [id number] [address] [place] [address], [place] [address] SP Jun, SP [facility] [address] [id number] [address] [place] [address], [place] [address] SP Apr, SP [facility] [address] [id number] [address] [place] [address], [place] [address] SP Apr, SP [facility] [address] [id number] [address] [place] [address], [place] [address] SP Feb, SP [facility] [address] [id number] [address] [place] [address], [place] [address] SP Feb, SP [facility] [address] [id number] [address] [place] [address], [place] [address] SP Dec, SP [facility] [address] [id number] [address] [place] [address], [place] [address] SP Dec, SP [facility] [address] [id number] [address] [place] [address], [place] [address] SP Nov, SP [facility] [address] [id number] [address] [place] [address], [place] [address] SP Nov, SP [facility] [address] [id number] [address] [place] [address], [place] [address] SP Nov, SP [facility] [address] [id number] [address] [place] [address], [place] [address] SP Oct, SP [facility] [address] [id number] [address] [place] [address], [place] [id number] SP September, SP [facility] [address] [id number] [address] [place] [address], [place] [address] SP September, SP [facility] [address] [id number] [address] [place] [address], [place] [address] SP Aug, SP [facility] [address] [id number] [address] [place] [address], [place] [address] SP Aug, SP [facility] [address] [id number] [address] [place] [address], [place] [address] SP Aug, SP [facility] [address] [id number] [address] [place] [address], [place] [address] SP Aug, SP [facility] [address] [id number] [address] [place] [address], [place] [address] SP Aug, SP [facility] [address] [id number] [address] [place] [address], [place] [address] SP Aug, SP [facility] [address] [id number] [address] [place] [address], [place] [address] SP Jul, SP [facility] [address] [id number] [address] [place] [address], [place] [address] SP Jul, SP [facility] [address] [id number] [address] [place] [address], [place] [address] SP Jul, SP [facility] [address] [id number] [address] [place] [address], [place] [address] SP 15 Jul, 2012 SP [facility] [address] [id number] [address] [place] [address], [place] [address] SP Jul, SP [facility] [address] [id number] [address] [place] [address], [place] [address] SP Jul, SP [facility] [address] [id number] [address] [place] [address], [place] [address] SP Jun, SP [facility] [address] [id number] [address] [place] [address], [place] [address] SP Jun, SP [facility] [address] [id number] [address] [place] [address], [place] [address] SP May, SP [facility] [address] [id number] [address] [place] [address], [place] [address] SP May, SP [facility] [address] [id number] [address] [place] [address], [place] [address] SP Apr, SP [facility] [address] [id number] [address] [place] [address], [place] [address] SP Apr, SP [facility] [address] [id number] [address] [place] [address], [place] [address] SP Apr, SP [facility] [address] [id number] [address] [place] [address], [place] [address] SP Apr, SP [facility] [address] [id number] [address] [place] [address], [place] [address] SP Apr, SP [facility] [address] [id number] [address] [place] [address], [place] [address] SP Mar, SP [facility] [address] [id number] [address] [place] [address], [place] [address] SP Mar, SP [facility] [address] [id number] [address] [place] [address], [place] [address] SP Mar, SP [facility] [address] [id number] [address] [place] [address], [place] [address] SP Mar, SP [facility] [address] [id number] [address] [place] [address], [place] [address] SP Mar, SP [facility] [address] [id number] [address] [place] [address], [place] [address] SP Mar, SP [facility] [address] [id number] [address] [place] [address], [place] [address] SP Mar, SP [facility] [address] [id number] [address] [place] [address], [place] [address] SP Feb, SP [facility] [address] [id number] [address] [place] [address], [place] [address] SP Feb, SP [facility] [address] [id number] [address] [place] [address], [place] [address] SP Feb, SP [facility] [address] [id number] [address] [place] [address], [place] [address] SP Feb, SP [facility] [address] [id number] [address] [place] [address], [place] [address] SP Dec, SP [facility] [address] [id number] [address] [place] [address], [place] [address] SP Nov, SP [facility] [address] [id number] [address] [place] [address], [place] [address] SP Nov, SP [facility] [address] [id number] [address] [place] [address], [place] [address] SP Oct, SP [facility] [address] [id number] [address] [place] [address], [place] [address] SP Oct, SP [facility] [address] [id number] [address] [place] [address], [place] [address] SP Oct, SP [facility] [address] [id number] [address] [place] [address], [place] [address] SP Oct, SP [facility] [address] [id number] [address] [place] [address], [place] [address] SP Oct, SP [facility] [address] [id number] [address] [place] [address], [place] [address] SP Oct, SP [facility] [address] [id number] [address] [place] [address], [place] [address] SP Oct, SP [facility] [address] [id number] [address] [place] [address], [place] [address] SP Aug, SP [facility] [address] [id number] [address] [place] [address], [place] [address] SP Jul, SP [facility] [address] [id number] [address] [place] [address], [place] [address] SP Jul, SP [facility] [address] [id number] [address] [place] [address], [place] [address] SP Jul, SP [facility] [address] [id number] [address] [place] [address], [place] [address] SP Jul, SP [facility] [address] [id number] [address] [place] [address], [place] [address] SP Jul, SP [facility] [address] [id number] [address] [place] [address], [place] [address] SP Jul, SP [facility] [address] [id number] [address] [place] [address], [place] [address] SP Jul, SP [facility] [address] [id number] [address] [place] [address], [place] [address] SP Jun, SP [facility] [address] [id number] [address] [place] [address], [place] [address] SP May, SP [facility] [address] [id number] [address] [place] [address], [place] [address] SP May, SP [facility] [address] [id number] [address] [place] [address], [place] [address] SP May, SP [facility] [address] [id number] [address] [place] [address], [place] [address] SP Apr, SP [facility] [address] [id number] [address] [place] [address], [place] [address] SP Apr, SP [facility] [address] [id number] [address] [place] [address], [place] [address] SP Apr, SP [facility] [address] [id number] [address] [place] [address], [place] [address] SP Apr, SP [facility] [address] [id number] [address] [place] [address], [place] [address] SP Apr, SP [facility] [address] [id number] [address] [place] [address], [place] [address] SP Apr, SP [facility] [address] [id number] [address] [place] [address], [place] [address] SP Mar, SP [facility] [address] [id number] [address] [place] [address], [place] [address] SP Mar, SP [facility] [address] [id number] [address] [place] [address], [place] [address] SP Mar, SP [facility] [address] [id number] [address] [place] [address], [place] [address] SP Mar, SP [facility] [address] [id number] [address] [place] [address], [place] [address] SP Mar, SP [facility] [address] [id number] [address] [place] [address], [place] [address] SP Mar, SP [facility] [address] [id number] [address] [place] [address], [place] [address] SP Mar, SP [facility] [address] [id number] [address] [place] [address], [place] [address] SP Dec, SP [facility] [address] [id number] [address] [place] [address], [place] [address] SP Aug, SP [facility] [address] [id number] [address] [place] [address], [place] [address] SP Apr, SP [facility] [address] [id number] [address] [place] [address], [place] [address] SP Mar, SP [facility] [address] [id number] [address] [place] [id number] SP Mar, SP [facility] [address] [id number] [address] [place] [id number] SP Mar, SP [facility] [address] [facility] [id number] [address] [place] [id number] SP Mar, SP [facility] [address] [id number] [address] [place] [id number] SP September, SP [facility] [address] [facility] [id number] [address] [place] [id number] SP Mar, SP [facility] [address] [facility] [id number] [address] [place] [id number] SP Feb, SP [facility] [address] [facility] [id number] [address] [place] [id number] SP Oct, SP [facility] [address] [facility] [id number] [address] [place] [id number] SP September, SP [facility] [address] [facility] [id number] [address] [place] [id number] SP Apr, SP [facility] [address] [facility] [id number] [address] [place] [id number] SP Mar, SP IMMUNIZATIONS No Known Immunizations SOCIAL HISTORY Never Assessed REASON FOR VISIT PLAN OF CARE VITAL SIGNS Height 65 in 2014-07-31 POS Weight 258.3 lbs 2014-07-31 POS Temperature 97.3 degrees Fahrenheit 2014-07-31 POS Heart Rate 76 bpm 2014-07-31 POS Respiratory Rate 18 2014-07-31 POS Blood pressure systolic 138 mmHg 2014-07-31 POS Blood pressure diastolic 76 mmHg 2014-07-31 POS MEDICATIONS Unknown Medications RESULTS No Results PROCEDURES Procedure Date Ordered Result Body Site POS STREP A ASSAY W/OPTIC July 31, 2014 SP COMPLETE CBC W/AUTO DIFF WBC July 31, 2014 SP HETEROPHILE ANTIBODIES July 31, 2014 SP COMPREHEN METABOLIC PANEL July 31, 2014 SP CINE/VID X-RAY, THROAT/ESOPH July 31, 2014 SP VENIPUNCT, ROUTINE* July 31, 2014 SP INSTRUCTIONS MEDICATIONS ADMINISTERED No Known [...]
--- OUTSIDE RECORDS SUMMARY | 2019-04-01 02:18 | XMS REPORT ---
Author Author PAVAN Pulido POS Organization [facility] SP Address [address] [place] [address] SP Care Team Providers Care Art Tracer Name Role Phone POS PAVAN Pulido Unavailable SP PROBLEMS Type Condition ICD9-CM Code ATL69-HE Code Onset Dates Condition S tatus SNOMED POS Problem Peripheral vascular disease I73.9 Ac tive [id number] POS Problem Urinary, incontinence, stress female N39.3 Active [id number] SP Problem Chronic kidney disease, unspecified N18.9 Active [id number] SP Problem Dysphagia, unspecified R13.10 Active 13447547 SP Problem Anemia of chronic disease D63.8 Acti ve 051685461 SP Problem Cervicalgia M54.2 Active 84201121 19629 SP Problem Essential hypertension I10 Active 51672832 SP Problem 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 918912039 SP Problem Abdominal aortic aneurysm (AAA) without rupture I7 1.4 Active SP Problem Seasonal allergic rhinitis, unspecified allergic rhinitis trigger SP Active 617890415 SP Problem Prediabetes R73.03 Active 99731495 2 SP Problem Mixed hyperlipidemia E78.2 Active 650902013 SP Problem Stenosis of right renal artery I70.1 Active [id number] SP Problem Chronic obstructive pulmonary disease, unspecified COPD ty pe J44.9 SP 47742745 SP Problem Gastroesophageal reflux disease without esophagitis K21.9 Active SP Problem Hepatic steatosis K76.0 Active 19 4311299 SP Problem Renal artery stenosis I70.1 Active 091757639 SP Problem PVD (peripheral vascular disease) I73.9 Active 884963231 SP Problem Arthritis of knee M17.10 Active 37 7931609 SP Problem Other chronic pain G89.29 Active 8 5087074 SP ALLERGIES No Information ENCOUNTERS Encounter Location Date Diagnosis POS [facility] [address] [facility] [id number] [address] [place] [address] SP Oct, Cellulitis of right upper ex tremity L03.113 and Morbid obesity SP [facility] [address] [place] [address] September, Dysuria R30.0 SP Right forearm cellulitis L03.113 [place] [address] [address] [place] [id number] [place] [address] SP Jul, Contact dermatitis and other eczema, due to unspecified cause SP ; Morbid obesity E66.01 ; Essential hypertension I10 ; Chronic obstructive pulmonary disease, unspecified COPD type J44.9 ; Chronic kidney disease, unspecified N18.9 and Mixed hyperlipidemia E78.2 [facility] [place] [address] SP Jul, Skin infection L08.9 and Mor bid obesity E66.01 SP [facility] [place] [address] SP Jun, Cellulitis of right arm L03. 113 and BMI 45.0-49.9, adult Z68.42 SP [place] [address] [place] [id number] [place] [address] SP May, SP [place] [address] [address] SP May, Chronic obstructive pulmonar y disease, unspecified COPD type SP ; Viral upper respiratory tract infection J06.9 and BMI 45.0-49.9, adult Z68.42 [place] [address] [place] [id number] [address] [place] [phone] SP Mar, BMI 45.0-49.9, adult Z68.42 ; Chronic urticaria L50.8 and Skin SP L08.9 [place] [address] [place] [id number] [address] [place] [phone] SP Mar, Dermatitis L30.9 and BMI 45. 0-49.9, adult Z68.42 SP [place] [address] [address] SP Feb, Cellulitis of right upper ex tremity L03.113 and BMI 45.0-49.9, SP Z68.42 [place] [address] [address] SP Feb, Cellulitis of right arm L03. 113 and Status post cardiac SP Z98.890 [place] [address] [address] SP Feb, SP [place] [address] [address] SP Feb, Chronic obstructive pulmonar y disease, unspecified COPD type SP ; Essential hypertension I10 ; Encounter for immunization Z23 ; Mixed hyperlipidemia E78.2 and BMI 45.0-49.9, adult Z68.42 [place] [address] [address] SP Feb, Dysuria R30.0 ; Acute cystit is without hematuria N30.00 and BMI SP49.9, adult Z68.42 [place] [address] [address] SP Dec, SP [place] [address] [address] SP Dec, Essential hypertension I10 ; Chronic kidney disease, unspecified SP ; Mixed hyperlipidemia E78.2 ; Tinea corporis B35.4 ; Right hip pain M25.551 and Acute pain of right knee M25.561 [place] [address] [address] SP Dec, Herpes zoster without compli cation B02.9 ; Dandruff L21.0 ; SP unspecified type R19.7 and BMI 45.0-49.9, adult Z68.42 [place] [address] [address] SP September, Chronic kidney disease, unsp ecified N18.9 ; Essential SP I10 ; Mixed hyperlipidemia E78.2 and BMI 45.0-49.9, adult Z68.42 [place] [address] [place] [id number] [place] [address] SP September, SP [place] [address] [place] [id number] [place] [address] SP September, Essential hypertension I10 ; Chronic kidney disease, unspecified SP ; Prediabetes R73.03 ; Low back pain M54.5 ; Other chronic pain G89.29 ; Arthritis of knee M17.10 ; Pure hyperglyceridemia E78.1 ; Anemia of chronic disease D63.8 and BMI 45.0-49.9, adult Z68.42 [place] [address] [place] [id number] [place] [address] SP Aug, SP [place] [address] [place] [id number] [place] [address] SP Jul, Abdominal aortic aneurysm (A AA) without rupture I71.4 ; PVD SP vascular disease) I73.9 ; Renal artery stenosis I70.1 and Essential hypertension I10 [place] [address] [place] [id number] [place] [phone] SP May, Essential hypertension I10 ; Pure hyperglyceridemia E78.1 ; SP aortic aneurysm (AAA) without rupture I71.4 ; Chronic kidney disease, unspecified N18.9 ; Gastroesophageal reflux disease without esophagitis K21.9 ; 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 ; Stenosis of right renal artery I70.1 ; Anemia of chronic disease D63.8 and Prediabetes R73.03 [place] [address] [place] [id number] [address] [place] [phone] SP May, Tinea corporis B35.4 and Vir al URI J06.9 SP [place] [address] [place] [id number] [place] [phone] SP May, SP [place] [address] [place] [id number] [place] [phone] SP Apr, [facility] [address] [place] [id number] [place] [address] SP Apr, Cervical radiculopathy M54.1 2 [facility] [address] SP Apr, Flank pain R10.9 and Acute p yelonephritis N10 SP [facility] [address] [address] SP Apr, SP [facility] [address] [address] SP Mar, [facility] [address] [address] SP Feb, Pain of right shoulder regio n M25.511 [facility] [address] [address] SP Feb, History of glaucoma Z86.69 ; Vision changes H53.9 ; Abdominal SP aneurysm (AAA) without rupture I71.4 ; Xerosis of skin L85.3 and Pain in right shoulder M25.511 [facility] [address] [address] SP Feb, [facility] [address] [place] [id number] [place] [address] SP Jan, Essential hypertension I10 ; Pure hyperglyceridemia E78.1 ; SP kidney disease, unspecified N18.9 ; Gastroesophageal reflux disease without esophagitis K21.9 ; 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 ; Stenosis of right renal artery I70.1 ; Anemia of chronic disease D63.8 ; Prediabetes R73.03 ; Pain of right shoulder region M25.511 and Homeless Z59.0 [facility] [address] [place] [id number] [place] [address] SP Jan, Neck pain M54.2 and Seasonal allergic rhinitis, unspecified SP rhinitis trigger J30.2 [facility] [address] [place] [id number] [place] [address] SP Dec, SP [place] [address] [address] SP Dec, SP [place] [address] [place] [id number] [place] [address] SP Dec, Blood glucose abnormal R73.0 9 [...] H. pylori infection A04.8 and Prediabetes R73.03 [facility] [address] SP Oct, Seasonal allergic rhinitis, unspecified allergic rhinitis SP J30.2 [place] [address] [address] SP September, Eustachian tube dysfunction, left H69.82 and Candidiasis of SP B37.89 [place] [address] [place] [id number] [place] [address] SP Jul, Blood glucose abnormal R73.0 9 ; Essential hypertension I10 ; Pure SPhyperglyceridemia E78.1 ; Chronic kidney disease, unspecified N18.9 ; Gastroesophageal reflux disease without esophagitis K21.9 ; 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 ; Abdominal aortic aneurysm (AAA) without rupture I71.4 ; Stenosis of right renal artery I70.1 ; Anemia of chronic disease D63.8 and Acute non-recurrent maxillary sinusitis J01.00 [place] [address] [place] [id number] [place] [address] SP Jun, Acute non-recurrent maxillar y sinusitis J01.00 ; Acute mucoid SP media of left ear H65.112 ; Nausea R11.0 and Fever and chills R50.9 [facility] [address] [facility] [id number] [address] [place] [phone] SP May, Acute right flank pain R10.9 SP [facility] [address] [facility] [id number] [address] [place] [address] SP Apr, Acute nasopharyngitis J00 ; Pure hyperglyceridemia E78.1 and SP kidney disease, unspecified N18.9 [place] [address] [facility] [id number] [address] [place] [phone] SP Apr, [facility] [address] [facility] [id number] [place] [address] SP Apr, Blood glucose abnormal R73.0 9 ; Essential hypertension I10 ; Pure SPhyperglyceridemia E78.1 ; Chronic kidney disease, unspecified N18.9 ; Gastroesophageal reflux disease without esophagitis K21.9 ; 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 ; Abdominal aortic aneurysm (AAA) without rupture I71.4 ; Stenosis of right renal artery I70.1 ; RUQ pain R10.11 and Anemia of chronic disease D63.8 [place] [address] [facility] [id number] [address] [place] [phone] SP Mar, Blood glucose abnormal R73.0 9 [facility] [address] [facility] [id number] [address] [place] [address] SP Mar, Cellulitis of right lower le g L03.115 [facility] [address] [facility] [id number] [address] [place] [address] SP Feb, [facility] [address] [facility] [id number] [address] [place] [address] SP Feb, Dysuria R30.0 and Upper resp iratory tract infection, unspecified SP J06.9 [facility] [address] [facility] [id number] [address] [place] [phone] SP Jan, SP [facility] [address] [place] [id number] [address] [place] [address] SP Jan, SP [place] [address] [place] [id number] [address] [place] [address] SP Dec, SP [place] [address] [place] [id number] [place] [address] SP Dec, Anemia of chronic disease D6 3.8 ; Essential hypertension I10 ; SP hyperglyceridemia E78.1 ; Chronic kidney disease, unspecified N18.9 ; Gastroesophageal reflux disease without esophagitis K21.9 ; 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 and Pain in right knee M25.561 [place] [address] [place] [id number] [address] [place] [address] SP Dec, Left shoulder strain, subseq uent encounter S46.912D ; Urinary SP R35.0 ; Lung nodule, solitary R91.1 ; Essential hypertension I10 and Acute cystitis without hematuria N30.00 [place] [address] [place] [id number] [place] [address] SP Nov, Left-sided chest wall pain R 07.89 and Abnormal chest xray R93.8 SP [place] [address] [place] [id number] [address] [place] [address] SP Nov, Pain of right lower extremit y M79.604 ; Swelling of right lower SP M79.89 ; Diarrhea, unspecified R19.7 ; Nausea with vomiting, unspecified R11.2 ; Left-sided chest wall pain R07.89 ; Chronic kidney disease, unspecified N18.9 ; Gastroesophageal reflux disease without esophagitis K21.9 and Other seasonal allergic rhinitis J30.2 [place] [address] [place] [id number] [address] [place] [address] SP September, Essential hypertension I10 ; Chronic kidney disease, unspecified SP ; Anemia of chronic disease D63.8 ; Pure hyperglyceridemia E78.1 ; Peripheral vascular disease I73.9 ; Abnormal glucose R73.09 ; 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 ; Gastroesophageal reflux disease without esophagitis K21.9 ; Allergic rhinitis J30.9 and Rash R21 [place] [address] [address] SP Aug, Abdominal pain R10.9 and Con stipation K59.00 SP [place] [address] [address] SP Jul, Injury of toe on right foot S99.921A SP [place] [address] [address] SP Jul, SP [place] [address] [address] SP Jul, Essential hypertension I10 ; Chronic kidney disease, unspecified SP ; Anemia of chronic disease D63.8 ; Pure hyperglyceridemia E78.1 ; Peripheral vascular disease I73.9 ; Abnormal glucose R73.09 ; 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 ; Gastroesophageal reflux disease without esophagitis K21.9 and Allergic rhinitis J30.9 [place] [address] [address] SP Jun, Low back pain M54.5 SP [place] [address] [address] SP Jun, SP [place] [address] [address] SP May, URI (upper respiratory infec tion) J06.9 SP [place] [address] [address] SP Apr, Essential hypertension I10 SP [place] [address] [address] SP Apr, Essential hypertension I10 ; Chronic kidney disease, unspecified SP ; Anemia of chronic disease D63.8 ; Pure hyperglyceridemia E78.1 ; Peripheral vascular disease I73.9 ; Abnormal glucose R73.09 ; URI (upper respiratory infection) J06.9 ; 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 ; Gastroesophageal reflux disease without esophagitis K21.9 and Cough R05 [place] [address] [address] SP Mar, Flank pain R10.9 and URI (up per respiratory infection) J06.9 SP [place] [address] [address] SP Mar, Right-sided low back pain wi thout sciatica M54.5 and Hematuria, SP R31.9 [place] [address] [address] SP Mar, Hypopigmentation L81.9 and H yperpigmentation L81.9 SP [place] [address] [address] SP Mar, SP [place] [address] [address] SP Mar, Acute cystitis with hematuri a N30.01 SP [place] [address] [address] SP Mar, SP [place] [address] [address] SP Feb, Furuncle L02.92 ; Hypopigmen tation L81.9 ; Hyperpigmentation SP ; Urinary frequency R35.0 ; Screening for malignant neoplasm of cervix Z12.4 ; Vaginal discharge N89.8 ; Urinary, incontinence, stress female N39.3 and Vaginal irritation N89.8 [place] [address] [address] SP Jan, Muscle spasm 728.85 ; Unspec ified peripheral vascular disease SP ; Benign essential hypertension 401.1 ; Chronic renal insufficiency 585.9 ; Chronic constipation 564.00 ; GERD (gastroesophageal reflux disease) 530.81 ; Hyperlipidemia 272.4 and Chronic leg pain 729.5 [place] [address] [address] SP Jan, Sinusitis 473.9 SP [place] [address] [place] [id number] [place] [address] SP Dec, SP [place] [address] [address] SP Dec, Acute bronchitis 466.0 [place] [address] [address] SP Dec, Acute bronchitis 466.0 SP [place] [address] [address] SP Dec, Unspecified episodic mood di sorder 296.90 [place] [address] [address] SP Dec, Visit for suture removal V58 .[address] [address] SP Nov, Allergic rhinitis 477.9 and Onychomycosis 110.1 SP [place] [address] [address] SP Oct, Muscle spasm 728.85 ; Benign essential hypertension 401.1 ; SP renal insufficiency 585.9 ; Chronic constipation 564.00 ; GERD (gastroesophageal reflux disease) 530.81 and Hyperlipidemia 272.4 [place] [address] [place] [id number] [place] [address] SP Oct, Otalgia of left ear 388.70 SP [place] [address] [place] [id number] [place] [address] SP Oct, Unspecified episodic mood di sorder 296.90 [place] [address] [address] SP September, Unspecified episodic mood di sorder 296.90 [place] [address] [place] [id number] [place] [address] SP September, Unspecified episodic mood di sorder 296.90 SP [place] [address] [id number] [place] [address] SP September, Urinary frequency 788.41 and Constipation 564.00 SP [facility] [address] [id number] [address] [place] [address], [place] [address] SP Aug, SP [facility] [address] [facility] [id number] [address] [place] [address] SP Aug, SP [facility] [address] [id number] [address] [place] [phone] SP Jul, SP [facility] [address] [id number] [address] [place] [address], [place] [address] SP Jul, SP [facility] [address] [id number] [address] [place] [phone] SP Jul, SP [facility] [address] [id number] [address] [place] [phone] SP Jul, SP [facility] [address] [id number] [address] [place] [address], [place] [address] SP Jul, SP [facility] [address] [id number] [address] [place] [address], [place] [address] SP Jul, SP [facility] [address] [facility] [id number] [address] [place] [address] SP Jul, SP [facility] [address] [id number] [address] [place] [address] SP Jul, SP [facility] [address] [id number] [address] [place] [phone] SP Jul, SP [facility] [address] [id number] [address] [place] [address] SP Jul, SP [facility] [address] [facility] [id number] [address] [place] [address] SP Jun, SP [facility] [address] [facility] [id number] [address] [place] [phone] SP Jun, SP [facility] [address] [id number] [address] [place] [address], [place] [address] SP May, SP [facility] [address] [id number] [address] [place] [address], [place] [address] SP May, SP [facility] [address] [id number] [address] [place] [address], [place] [address] SP May, SP [facility] [address] [id number] [address] [place] [address], [place] [address] SP May, SP [facility] [address] [id number] [address] [place] [address], [place] [address] SP May, SP [facility] [address] [id number] [address] [place] [address], [place] [address] SP May, SP [facility] [address] [id number] [address] [place] [address], [place] [address] SP May, SP [facility] [address] [id number] [address] [place] [address], [place] [address] SP May, SP [facility] [address] [id number] [address] [place] [address], [place] [address] SP May, SP [facility] [address] [id number] [address] [place] [address], [place] [address] SP May, SP [facility] [address] [id number] [address] [place] [address], [place] [address] SP May, SP [facility] [address] [id number] [address] [place] [address], [place] [address] SP May, SP [facility] [address] [id number] [address] [place] [address], [place] [address] SP May, SP [facility] [address] [id number] [address] [place] [address], [place] [address] SP Feb, SP [facility] [address] [id number] [address] [place] [address], [place] [address] SP 07 Feb, 2014 SP [facility] [address] [id number] [address] [place] [address], [place] [address] SP 20 Jan, 2013 SP [facility] [address] [id number] [address] [place] [address], [place] [address] SP 20 Jan, 2013 SP [facility] [address] [id number] [address] [place] [address], [place] [address] SP 18 Jan, 2013 SP [facility] [address] [id number] [address] [place] [address], [place] [address] SP 18 Jan, 2013 SP [facility] [address] [id number] [address] [place] [address], [place] [address] SP 12 Jan, 2013 SP [facility] [address] [id number] [address] [place] [address], [place] [address] SP 12 Jan, 2013 SP [facility] [address] [id number] [address] [place] [address], [place] [address] SP 12 Jan, 2013 SP [facility] [address] [id number] [address] [place] [address], [place] [address] SP 12 Jan, 2013 SP [facility] [address] [id number] [address] [place] [address], [place] [address] SP 11 Jan, 2013 SP [facility] [address] [id number] [address] [place] [address], [place] [address] SP 11 Jan, 2013 SP [facility] [address] [id number] [address] [place] [address], [place] [address] SP 10 Jan, 2013 SP [facility] [address] [id number] [address] [place] [address], [place] [address] SP 10 Jan, 2013 SP [facility] [address] [id number] [address] [place] [address], [place] [address] SP Oct, SP [facility] [address] [id number] [address] [place] [address], [place] [address] SP Oct, SP [facility] [address] [id number] [address] [place] [address], [place] [address] SP Oct, SP [facility] [address] [id number] [address] [place] [address], [place] [address] SP Oct, SP [facility] [address] [id number] [address] [place] [address], [place] [address] SP Jun, SP [facility] [address] [id number] [address] [place] [address], [place] [address] SP Jun, SP [facility] [address] [id number] [address] [place] [address], [place] [address] SP Jun, SP [facility] [address] [id number] [address] [place] [address], [place] [address] SP Jun, SP [facility] [address] [id number] [address] [place] [id number] SP Apr, SP [facility] [address] [id number] [address] [place] [address], [place] [address] SP Apr, SP [facility] [address] [id number] [address] [place] [address], [place] [address] SP Feb, SP [facility] [address] [id number] [address] [place] [id number] SP Feb, SP [facility] [address] [id number] [address] [place] [id number] SP Dec, SP [facility] [address] [id number] [address] [place] [address], [place] [address] SP Dec, SP [facility] [address] [id number] [address] [place] [address], [place] [address] SP Nov, SP [facility] [address] [id number] [address] [place] [id number] SP Nov, SP [facility] [address] [id number] [address] [place], [place] [id number] SP Nov, SP [facility] [address] [id number] [address] [place] [address], [place] [address] SP Oct, SP [facility] [address] [id number] [address] [place] [address], [place] [address] SP September, SP [facility] [address] [id number] [address] [place] [address], [place] [address] SP September, SP [facility] [address] [id number] [address] [place] [address], [place] [address] SP Aug, SP [facility] [address] [id number] [address] [place] [address], [place] [address] SP Aug, SP [facility] [address] [id number] [address] [place] [address], [place] [address] SP Aug, SP [facility] [address] [id number] [address] [place] [address], [place] [address] SP Aug, SP [facility] [address] [id number] [address] [place] [address], [place] [address] SP Aug, SP [facility] [address] [id number] [address] [place] [address], [place] [address] SP Aug, SP [facility] [address] [id number] [address] [place] [address], [place] [address] SP Jul, SP [facility] [address] [id number] [address] [place] [address], [place] [address] SP Jul, SP [facility] [address] [id number] [address] [place] [address], [place] [address] SP Jul, SP [facility] [address] [id number] [address] [place] [address], [place] [address] SP Jul, SP [facility] [address] [id number] [address] [place] [address], [place] [address] SP Jul, SP [facility] [address] [id number] [address] [place] [address], [place] [address] SP Jul, SP [facility] [address] [id number] [address] [place] [address], [place] [address] SP Jun, SP [facility] [address] [id number] [address] [place] [address], [place] [address] SP Jun, SP [facility] [address] [id number] [address] [place] [address], [place] [address] SP May, SP [facility] [address] [id number] [address] [place] [address], [place] [address] SP May, SP [facility] [address] [id number] [address] [place] [address], [place] [address] SP Apr, SP [facility] [address] [id number] [address] [place] [address], [place] [address] SP Apr, SP [facility] [address] [id number] [address] [place] [address], [place] [address] SP Apr, SP [facility] [address] [id number] [address] [place] [address], [place] [address] SP Apr, SP [facility] [address] [id number] [address] [place] [address], [place] [address] SP Apr, SP [facility] [address] [id number] [address] [place] [address], [place] [address] SP Mar, SP [facility] [address] [id number] [address] [place] [address], [place] [address] SP Mar, SP [facility] [address] [id number] [address] [place] [address], [place] [address] SP Mar, SP [facility] [address] [id number] [address] [place] [address], [place] [address] SP Mar, SP [facility] [address] [id number] [address] [place] [address], [place] [address] SP Mar, SP [facility] [address] [id number] [address] [place] [address], [place] [address] SP Mar, SP [facility] [address] [id number] [address] [place] [address], [place] [address] SP Mar, SP [facility] [address] [id number] [address] [place] [address], [place] [address] SP Feb, SP [facility] [address] [id number] [address] [place] [address], [place] [address] SP Feb, SP [facility] [address] [id number] [address] [place] [address], [place] [address] SP Feb, SP [facility] [address] [id number] [address] [place] [address], [place] [address] SP Feb, SP [facility] [address] [id number] [address] [place] [address], [place] [address] SP Dec, SP [facility] [address] [id number] [address] [place] [address], [place] [address] SP Nov, SP [facility] [address] [id number] [address] [place] [address], [place] [address] SP Nov, SP [facility] [address] [id number] [address] [place] [address], [place] [address] SP Oct, SP [facility] [address] [id number] [address] [place] [address], [place] [address] SP Oct, SP [facility] [address] [id number] [address] [place] [address], [place] [address] SP Oct, SP [facility] [address] [id number] [address] [place] [address], [place] [address] SP Oct, SP [facility] [address] [id number] [address] [place] [address], [place] [address] SP Oct, SP [facility] [address] [id number] [address] [place] [address], [place] [address] SP Oct, SP [facility] [address] [id number] [address] [place] [address], [place] [address] SP Oct, SP [facility] [address] [id number] [address] [place] [address], [place] [address] SP Aug, SP [facility] [address] [id number] [address] [place] [address], [place] [address] SP Jul, SP [facility] [address] [id number] [address] [place] [address], [place] [address] SP Jul, SP [facility] [address] [id number] [address] [place] [address], [place] [address] SP Jul, SP [facility] [address] [id number] [address] [place] [address], [place] [address] SP Jul, SP [facility] [address] [id number] [address] [place] [address], [place] [address] SP Jul, SP [facility] [address] [id number] [address] [place] [address], [place] [address] SP Jul, SP [facility] [address] [id number] [address] [place] [address], [place] [address] SP Jul, SP [facility] [address] [id number] [address] [place] [address], [place] [address] SP Jun, SP [facility] [address] [id number] [address] [place] [address], [place] [address] SP May, SP [facility] [address] [id number] [address] [place] [address], [place] [address] SP May, SP [facility] [address] [id number] [address] [place] [address], [place] [address] SP May, SP [facility] [address] [id number] [address] [place] [address], [place] [address] SP Apr, SP [facility] [address] [id number] [address] [place] [address], [place] [address] SP Apr, SP [facility] [address] [id number] [address] [place] [address], [place] [address] SP Apr, SP [facility] [address] [id number] [address] [place] [address], [place] [address] SP Apr, SP [facility] [address] [id number] [address] [place] [address], [place] [address] SP Apr, SP [facility] [address] [id number] [address] [place] [address], [place] [address] SP Apr, SP [facility] [address] [id number] [address] [place] [address], [place] [address] SP Mar, SP [facility] [address] [id number] [address] [place] [address], [place] [address] SP Mar, SP [facility] [address] [id number] [address] [place] [address], [place] [address] SP Mar, SP [facility] [address] [id number] [address] [place] [address], [place] [address] SP Mar, SP [facility] [address] [id number] [address] [place] [address], [place] [address] SP Mar, SP [facility] [address] [id number] [address] [place] [address], [place] [address] SP Mar, SP [facility] [address] [id number] [address] [place] [address], [place] [address] SP Mar, SP [facility] [address] [id number] [address] [place] [address], [place] [address] SP Dec, SP [facility] [address] [id number] [address] [place] [address], [place] [address] SP Aug, SP [facility] [address] [id number] [address] [place] [address], [place] [address] SP Apr, SP [facility] [address] [id number] [address] [place] [address] SP Mar, SP [facility] [address] [id number] [address] [place] [address] SP Mar, SP [facility] [address] [id number] [address] [place] [id number] SP Mar, SP [facility] [address] [id number] [address] [place] [address] SP Mar, SP [facility] [address] [id number] [address] [place] [address] SP September, SP [facility] [address] [id number] [address] [place] [address] SP Mar, SP [facility] [address] [facility] [id number] [address] [place] [id number] SP Feb, SP [facility] [address] [id number] [address] [place] [address] SP Oct, SP [facility] [address] [id number] [address] [place] [address] SP September, SP [facility] [address] [id number] [address] [place] [id number] SP Apr, SP [facility] [address] [id number] [address] [place] [id number] SP Mar, SP IMMUNIZATIONS No Known Immunizations [...]
--- OUTSIDE RECORDS SUMMARY | 2019-04-01 02:19 | XMS REPORT ---
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 Name Role Phone POS Migration, Doctor Unavailable Unavailable SP PROBLEMS Type Condition ICD9-CM Code [id number] Code Onset Dates Condition S tatus SNOMED POS Problem Peripheral vascular disease I73.9 Ac tive [id number] POS Problem Urinary, incontinence, stress female N39.3 Active 02492815 SP Problem Chronic kidney disease, unspecified N18.9 Active [id number] SP Problem Dysphagia, unspecified R13.10 Active 66192359 SP Problem Anemia of chronic disease D63.8 Acti ve 381116594 SP Problem Cervicalgia M54.2 Active 26590594 17355 SP Problem Essential hypertension I10 Active 62459060 SP Problem 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 480709133 SP Problem Abdominal aortic aneurysm (AAA) without rupture I7 1.4 Active SP Problem Seasonal allergic rhinitis, unspecified allergic rhinitis trigger SP Active 601740671 SP Problem Prediabetes R73.03 Active 87645719 2 SP Problem Mixed hyperlipidemia E78.2 Active 977349678 SP Problem Stenosis of right renal artery I70.1 Active [id number] SP Problem Chronic obstructive pulmonary disease, unspecified COPD ty pe J44.9 SP 20950438 SP Problem Gastroesophageal reflux disease without esophagitis K21.9 Active SP Problem Hepatic steatosis K76.0 Active 19 1045318 SP Problem Renal artery stenosis I70.1 Active 613424845 SP Problem PVD (peripheral vascular disease) I73.9 Active 721749700 SP Problem Arthritis of knee M17.10 Active 37 4592746 SP Problem Other chronic pain G89.29 Active 8 0458789 SP ALLERGIES No Information ENCOUNTERS Encounter Location Date Diagnosis POS [facility] [address] [facility] [id number] [address] [place], [place] SP Oct, Cellulitis of right upper ex tremity L03.113 and Morbid obesity SP [facility] [address] [place] [address] September, Dysuria R30.0 SP Right forearm cellulitis L03.113 [place] [address] [address] SP Jul, Contact dermatitis and other eczema, due to unspecified cause SP ; Morbid obesity E66.01 ; Essential hypertension I10 ; Chronic obstructive pulmonary disease, unspecified COPD type J44.9 ; Chronic kidney disease, unspecified N18.9 and Mixed hyperlipidemia E78.2 [facility] [address] SP Jul, Skin infection L08.9 and Mor bid obesity E66.01 SP [facility] [place] [address] SP Jun, Cellulitis of right arm L03. 113 and BMI 45.0-49.9, adult Z68.42 SP [place] [address] [address] SP May, SP [place] [address] [address] SP May, Chronic obstructive pulmonar y disease, unspecified COPD type SP ; Viral upper respiratory tract infection J06.9 and BMI 45.0-49.9, adult Z68.42 [place] [address] [address] [place] [id number] [address] [place] [address] SP Mar, BMI 45.0-49.9, adult Z68.42 ; Chronic urticaria L50.8 and Skin SP L08.9 [place] [address] [address] [place] [id number] [address] [place] [address] SP Mar, Dermatitis L30.9 and BMI 45. 0-49.9, adult Z68.42 SP [place] [address] [address] [place] [id number] [address] [place] [address] SP Feb, Cellulitis of right upper ex tremity L03.113 and BMI 45.0-49.9, SP Z68.42 [place] [address] [address] SP Feb, Cellulitis of right arm L03. 113 and Status post cardiac SP Z98.890 [place] [address] [address] SP Feb, SP [place] [address] [address] SP Feb, Chronic obstructive pulmonar y disease, unspecified COPD type SP ; Essential hypertension I10 ; Encounter for immunization Z23 ; Mixed hyperlipidemia E78.2 and BMI 45.0-49.9, adult Z68.42 [place] [address] [address] SP Feb, Dysuria R30.0 ; Acute cystit is without hematuria N30.00 and BMI SP49.9, adult Z68.42 [place] [address] [address] SP Dec, SP [place] [address] [address] SP Dec, Essential hypertension I10 ; Chronic kidney disease, unspecified SP ; Mixed hyperlipidemia E78.2 ; Tinea corporis B35.4 ; Right hip pain M25.551 and Acute pain of right knee M25.561 [place] [address] [address] SP Dec, Herpes zoster without compli cation B02.9 ; Dandruff L21.0 ; SP unspecified type R19.7 and BMI 45.0-49.9, adult Z68.42 [place] [address] [address] SP September, Chronic kidney disease, unsp ecified N18.9 ; Essential SP I10 ; Mixed hyperlipidemia E78.2 and BMI 45.0-49.9, adult Z68.42 [place] [address] [address] SP September, SP [place] [address] [address] SP September, Essential hypertension I10 ; Chronic kidney disease, unspecified SP ; Prediabetes R73.03 ; Low back pain M54.5 ; Other chronic pain G89.29 ; Arthritis of knee M17.10 ; Pure hyperglyceridemia E78.1 ; Anemia of chronic disease D63.8 and BMI 45.0-49.9, adult Z68.42 [place] [address] [address] SP Aug, SP [place] [address] [address] SP Jul, Abdominal aortic aneurysm (A AA) without rupture I71.4 ; PVD SP vascular disease) I73.9 ; Renal artery stenosis I70.1 and Essential hypertension I10 [place] [address] [address] SP May, Essential hypertension I10 ; Pure hyperglyceridemia E78.1 ; SP aortic aneurysm (AAA) without rupture I71.4 ; Chronic kidney disease, unspecified N18.9 ; Gastroesophageal reflux disease without esophagitis K21.9 ; 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 ; Stenosis of right renal artery I70.1 ; Anemia of chronic disease D63.8 and Prediabetes R73.03 [place] [address] [address] SP May, Tinea corporis B35.4 and Vir al URI J06.9 SP [place] [address] [address] SP May, SP [place] [address] [address] SP Apr, SP [place] [address] [address] SP Apr, Cervical radiculopathy M54.1 2 SP [facility] [address] [facility] [id number] [address] [place] [address] SP Apr, Flank pain R10.9 and Acute p yelonephritis N10 SP [facility] [address] [facility] [id number] [address] [place] [address] SP Apr, SP [facility] [address] [address] SP Mar, SP [facility] [address] [facility] [id number] [address] [place] [address] SP Feb, Pain of right shoulder regio n M25.511 SP [facility] [address] [place] [id number] [address] [place] [address] SP Feb, History of glaucoma Z86.69 ; Vision changes H53.9 ; Abdominal SP aneurysm (AAA) without rupture I71.4 ; Xerosis of skin L85.3 and Pain in right shoulder M25.511 [facility] [address] [place] [id number] [address] [place] [address] SP Feb, SP [facility] [address] [place] [id number] [address] [place] [address] SP Jan, Essential hypertension I10 ; Pure hyperglyceridemia E78.1 ; SP kidney disease, unspecified N18.9 ; Gastroesophageal reflux disease without esophagitis K21.9 ; 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 ; Stenosis of right renal artery I70.1 ; Anemia of chronic disease D63.8 ; Prediabetes R73.03 ; Pain of right shoulder region M25.511 and Homeless Z59.0 [place] [address] [address] [place] [id number] [address] [place] [address] SP Jan, Neck pain M54.2 and Seasonal allergic rhinitis, unspecified SP rhinitis trigger J30.2 [facility] [address] [place] [id number] [address] [place] [address] SP Dec, SP [facility] [address] [place] [address] [place] [address] SP Dec, SP [place] [address] [place] [id number] [place] [address] SP Dec, Blood glucose abnormal R73.0 9 [...] H. 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 ; Abdominal aortic aneurysm (AAA) without rupture I71.4 ; Stenosis of right renal artery I70.1 ; Anemia of chronic disease D63.8 and Acute non-recurrent maxillary sinusitis J01.00 [place] [address] [address] [place] [id number] [address] [place] [address] SP Jun, Acute non-recurrent maxillar y sinusitis J01.00 ; Acute mucoid SP media of left ear H65.112 ; Nausea R11.0 and Fever and chills R50.9 [place] [address] [address] [place] [id number] [address] [place] [address] SP May, Acute right flank pain R10.9 SP [facility] [address] [facility] [id number] [address] [place] [address] SP Apr, Acute nasopharyngitis J00 ; Pure hyperglyceridemia E78.1 and SP kidney disease, unspecified N18.9 [facility] [address] [facility] [id number] [address] [place] [address] SP Apr, SP [facility] [address] [facility] [id number] [address] [place] [address] SP Apr, Blood glucose abnormal R73.0 9 ; Essential hypertension I10 ; Pure SPhyperglyceridemia E78.1 ; Chronic kidney disease, unspecified N18.9 ; Gastroesophageal reflux disease without esophagitis K21.9 ; 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 ; Abdominal aortic aneurysm (AAA) without rupture I71.4 ; Stenosis of right renal artery I70.1 ; RUQ pain R10.11 and Anemia of chronic disease D63.8 [facility] [address] [facility] [id number] [address] [place] [address] SP Mar, Blood glucose abnormal R73.0 9 SP [facility] [address] [facility] [id number] [address] [place] [address] SP Mar, Cellulitis of right lower le g L03.115 SP [facility] [address] [facility] [id number] [address] [place] [address] SP Feb, SP [facility] [address] [place] [id number] [address] [place] [address] SP Feb, Dysuria R30.0 and Upper resp iratory tract infection, unspecified SP J06.9 [facility] [address] [facility] [id number] [address] [place] [address] SP Jan, SP [facility] [address] [facility] [id number] [address] [place] [address] SP Jan, SP [facility] [address] [place] [id number] [address] [place] [address] SP Dec, SP [place] [address] [place] [id number] [place] [address] SP Dec, Anemia of chronic disease D6 3.8 ; Essential hypertension I10 ; SP hyperglyceridemia E78.1 ; Chronic kidney disease, unspecified N18.9 ; Gastroesophageal reflux disease without esophagitis K21.9 ; 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 and Pain in right knee M25.[address] [address] SP Dec, Left shoulder strain, subseq uent encounter S46.912D ; Urinary SP R35.0 ; Lung nodule, solitary R91.1 ; Essential hypertension I10 and Acute cystitis without hematuria N30.[address] [address] SP Nov, Left-sided chest wall pain R 07.89 and Abnormal chest xray R93.[address] [address] SP Nov, Pain of right lower extremit y M79.604 ; Swelling of right lower SP M79.89 ; Diarrhea, unspecified R19.7 ; Nausea with vomiting, unspecified R11.2 ; Left-sided chest wall pain R07.89 ; Chronic kidney disease, unspecified N18.9 ; Gastroesophageal reflux disease without esophagitis K21.9 and Other seasonal allergic rhinitis J30.[address] [address] SP September, Essential hypertension I10 ; Chronic kidney disease, unspecified SP ; Anemia of chronic disease D63.8 ; Pure hyperglyceridemia E78.1 ; Peripheral vascular disease I73.9 ; Abnormal glucose R73.09 ; 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 ; Gastroesophageal reflux disease without esophagitis K21.9 ; Allergic rhinitis J30.9 and Rash R21 [place] [id number] [address] [place] [address] SP Aug, Abdominal pain R10.9 and Con stipation K59.00 SP [place] [address] [place] [id number] [address] [place] [address] SP Jul, Injury of toe on right foot S99.921A SP [place] [address] [place] [id number] [address] [place] [address] SP 14 Jul, 2015 SP [place] [address] [place] [id number] [place] [address] SP Jul, Essential hypertension I10 ; Chronic kidney disease, unspecified SP ; Anemia of chronic disease D63.8 ; Pure hyperglyceridemia E78.1 ; Peripheral vascular disease I73.9 ; Abnormal glucose R73.09 ; 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 ; Gastroesophageal reflux disease without esophagitis K21.9 and Allergic rhinitis J30.9 [place] [address] [place] [id number] [address] [place] [address] SP Jun, Low back pain M54.5 SP [place] [address] [place] [id number] [place] [address] SP Jun, SP [place] [address] [place] [id number] [place] [address] SP May, URI (upper respiratory infec tion) J06.9 SP [place] [address] [place] [id number] [address] [place] [address] SP Apr, Essential hypertension I10 SP [place] [address] [place] [id number] [place] [address] SP Apr, Essential hypertension I10 ; Chronic kidney disease, unspecified SP ; Anemia of chronic disease D63.8 ; Pure hyperglyceridemia E78.1 ; Peripheral vascular disease I73.9 ; Abnormal glucose R73.09 ; URI (upper respiratory infection) J06.9 ; 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 ; Gastroesophageal reflux disease without esophagitis K21.9 and Cough R05 [place] [address] [facility] [id number] [address] [place] [address] SP Mar, Flank pain R10.9 and URI (up per respiratory infection) J06.9 SP [facility] [address] [address] SP Mar, Right-sided low back pain wi thout sciatica M54.5 and Hematuria, SP R31.9 [place] [address] [address] SP Mar, Hypopigmentation L81.9 and H yperpigmentation L81.9 SP [place] [address] [address] SP Mar, SP [place] [address] [address] SP Mar, Acute cystitis with hematuri a N30.01 SP [place] [address] [address] SP Mar, SP [place] [address] [address] SP Feb, Furuncle L02.92 ; Hypopigmen tation L81.9 ; Hyperpigmentation SP ; Urinary frequency R35.0 ; Screening for malignant neoplasm of cervix Z12.4 ; Vaginal discharge N89.8 ; Urinary, incontinence, stress female N39.3 and Vaginal irritation N89.8 [place] [address] [address] SP Jan, Muscle spasm 728.85 ; Unspec ified peripheral vascular disease SP ; Benign essential hypertension 401.1 ; Chronic renal insufficiency 585.9 ; Chronic constipation 564.00 ; GERD (gastroesophageal reflux disease) 530.81 ; Hyperlipidemia 272.4 and Chronic leg pain 729.5 [place] [address] [address] SP Jan, Sinusitis 473.9 SP [place] [address] [address] SP Dec, [place] [address] [place] [id number] [address] [place] [address] SP Dec, Acute bronchitis 466.0 [place] [address] [address] SP Dec, Acute bronchitis 466.0 SP [place] [address] [address] SP Dec, Unspecified episodic mood di sorder 296.90 [place] [address] [address] SP Dec, Visit for suture removal V58 .[address] [address] SP Nov, Allergic rhinitis 477.9 and Onychomycosis 110.1 [place] [address] [address] SP Oct, Muscle spasm 728.85 ; Benign essential hypertension 401.1 ; SP renal insufficiency 585.9 ; Chronic constipation 564.00 ; GERD (gastroesophageal reflux disease) 530.81 and Hyperlipidemia 272.4 [place] [address] [place] [id number] [address] [place] [address] SP Oct, Otalgia of left ear 388.70 [place] [address] [address] SP Oct, Unspecified episodic mood di sorder 296.90 [place] [address] [place] [id number] [address] [place] [address] SP September, Unspecified episodic mood di sorder 296.90 [place] [address] [address] SP September, Unspecified episodic mood di sorder 296.90 [facility] [place] [address] [place] [id number] [place] [address] SP September, Urinary frequency 788.41 and Constipation 564.00 SP [facility] [address] [id number] [address] [place] [address], [place] [address] SP 14 Aug, 2014 SP [facility] [address] [id number] [address] [place] [address], [place] [address] SP 13 Aug, 2014 SP [facility] [address] [id number] [address] [place] [address], [place] [address] SP Jul, SP [facility] [address] [id number] [address] [place] [address], [place] [address] SP Jul, SP [facility] [address] [id number] [address] [place] [address], [place] [address] SP Jul, SP [facility] [address] [id number] [address] [place] [address], [place] [address] SP Jul, SP [facility] [address] [id number] [address] [place] [address] SP Jul, SP [facility] [address] [id number] [address] [place] [address], [place] [address] SP Jul, SP [facility] [address] [id number] [address] [place] [address], [place] [address] SP Jul, SP [facility] [address] [id number] [address] [place] [address], [place] [address] SP Jul, SP [facility] [address] [id number] [address] [place] [address], [place] [address] SP Jul, SP [facility] [address] [id number] [address] [place] [address], [place] [address] SP Jul, SP [facility] [address] [id number] [address] [place] [address], [place] [address] SP Jun, SP [facility] [address] [id number] [address] [place] [address] SP Jun, SP [facility] [address] [id number] [address] [place] [address] SP May, SP [facility] [address] [id number] [address] [place] [address], [place] [address] SP May, SP [facility] [address] [id number] [address] [place] [address], [place] [address] SP May, SP [facility] [address] [id number] [address] [place] [address], [place] [address] SP May, SP [facility] [address] [id number] [address] [place] [address], [place] [address] SP May, SP [facility] [address] [id number] [address] [place] [address], [place] [address] SP May, SP [facility] [address] [id number] [address] [place] [address], [place] [address] SP May, SP [facility] [address] [id number] [address] [place] [address], [place] [address] SP May, SP [facility] [address] [id number] [address] [place] [address], [place] [address] SP May, SP [facility] [address] [id number] [address] [place] [address], [place] [address] SP May, SP [facility] [address] [id number] [address] [place] [address], [place] [address] SP May, SP [facility] [address] [id number] [address] [place] [address], [place] [address] SP May, SP [facility] [address] [id number] [address] [place] [address], [place] [address] SP May, SP [facility] [address] [id number] [address] [place] [address], [place] [address] SP Feb, SP [facility] [address] [id number] [address] [place] [address], [place] [address] SP Feb, SP [facility] [address] [id number] [facility] [place] [address] SP 20 Sep, 2013 SP [facility] [address] [id number] [address] [place] [address], [place] [address] SP 20 Sep, 2013 SP [facility] [address] [id number] [address] [place] [address], [place] [address] SP 18 Sep, 2013 SP [facility] [address] [id number] [address] [place] [address], [place] [address] SP 18 Sep, 2013 SP [facility] [address] [id number] [address] [place] [address], [place] [address] SP 12 Jan, 2013 SP [facility] [address] [id number] [address] [place] [address], [place] [address] SP 12 Jan, 2013 SP [facility] [address] [id number] [address] [place] [address], [place] [address] SP 12 Jan, 2013 SP [facility] [address] [id number] [address] [place] [address], [place] [address] SP 12 Jan, 2013 SP [facility] [address] [id number] [address] [place] [address], [place] [address] SP 11 Jan, 2013 SP [facility] [address] [id number] [address] [place] [address], [place] [address] SP 11 Jan, 2013 SP [facility] [address] [id number] [address] [place] [address], [place] [address] SP 10 Jan, 2013 SP [facility] [address] [id number] [address] [place] [address], [place] [address] SP 10 Jan, 2013 SP [facility] [address] [id number] [address] [place] [address], [place] [address] SP Oct, SP [facility] [address] [id number] [address] [place] [address], [place] [address] SP Oct, SP [facility] [address] [id number] [address] [place] [address], [place] [address] SP Oct, SP [facility] [address] [id number] [address] [place] [address], [place] [address] SP Oct, SP [facility] [address] [id number] [address] [place] [address], [place] [id number] SP Jun, SP [facility] [address] [id number] [address] [place] [address], [place] [address] SP Jun, SP [facility] [address] [id number] [address] [place] [address], [place] [id number] SP Jun, SP [facility] [address] [id number] [address] [place] [address], [place] [id number] SP Jun, SP [facility] [address] [id number] [address] [place] [address], [place] [id number] SP Apr, SP [facility] [address] [id number] [address] [place] [address], [place] [id number] SP Apr, SP [facility] [address] [id number] [address] [place] [address], [place] [id number] SP Feb, SP [facility] [address] [id number] [address] [place] [address], [place] [id number] SP Feb, SP [facility] [address] [id number] [address] [place] [address], [place] [id number] SP Dec, SP [facility] [address] [id number] [address] [place] [address], [place] [id number] SP Dec, SP [facility] [address] [id number] [address] [place] [address], [place] [id number] SP Nov, SP [facility] [address] [id number] [address] [place] [address], [place] [id number] SP Nov, SP [facility] [address] [id number] [address] [place] [address], [place] [id number] SP Nov, SP [facility] [address] [id number] [address] [place] [address], [place] [id number] SP Oct, SP [facility] [address] [id number] [address] [place] [address], [place] [id number] SP September, SP [facility] [address] [id number] [address] [place] [address], [place] [id number] SP September, SP [facility] [address] [id number] [address] [place] [address], [place] [address] SP Aug, SP [facility] [address] [id number] [address] [place] [address], [place] [address] SP Aug, SP [facility] [address] [id number] [address] [place] [address], [place] [address] SP Aug, SP [facility] [address] [id number] [address] [place] [address], [place] [id number] SP Aug, SP [facility] [address] [id number] [address] [place] [address], [place] [id number] SP Aug, SP [facility] [address] [id number] [address] [place] [address], [place] [address] SP Aug, SP [facility] [address] [id number] [address] [place] [address], [place] [address] SP Jul, SP [facility] [address] [id number] [address] [place] [address], [place] [address] SP Jul, SP [facility] [address] [id number] [address] [place] [address], [place] [address] SP Jul, SP [facility] [address] [id number] [address] [place] [address], [place] [id number] SP 15 Jul, 2012 SP [facility] [address] [id number] [address] [place] [address], [place] [address] SP Jul, SP [facility] [address] [id number] [address] [place] [address], [place] [address] SP Jul, SP [facility] [address] [id number] [address] [place] [address], [place] [address] SP Jun, SP [facility] [address] [id number] [address] [place] [address], [place] [address] SP Jun, SP [facility] [address] [id number] [address] [place] [address], [place] [address] SP May, SP [facility] [address] [id number] [address] [place] [address], [place] [address] SP May, SP [facility] [address] [id number] [address] [place] [address], [place] [address] SP Apr, SP [facility] [address] [id number] [address] [place] [address], [place] [address] SP Apr, SP [facility] [address] [id number] [address] [place] [address], [place] [address] SP Apr, SP [facility] [address] [id number] [address] [place] [address], [place] [address] SP Apr, SP [facility] [address] [id number] [address] [place] [address], [place] [address] SP Apr, SP [facility] [address] [id number] [address] [place] [address], [place] [address] SP Mar, SP [facility] [address] [id number] [address] [place] [address], [place] [address] SP Mar, SP [facility] [address] [id number] [address] [place] [address], [place] [address] SP Mar, SP [facility] [address] [id number] [address] [place] [address], [place] [id number] SP Mar, SP [facility] [address] [id number] [address] [place] [address], [place] [id number] SP Mar, SP [facility] [address] [id number] [address] [place] [address], [place] [address] SP Mar, SP [facility] [address] [id number] [address] [place] [address], [place] [address] SP Mar, SP [facility] [address] [id number] [address] [place] [address], [place] [address] SP Feb, SP [facility] [address] [id number] [address] [place] [address], [place] [address] SP Feb, SP [facility] [address] [id number] [address] [place] [address], [place] [address] SP Feb, SP [facility] [address] [id number] [address] [place] [address], [place] [id number] SP Feb, SP [facility] [address] [id number] [address] [place] [address], [place] [address] SP Dec, SP [facility] [address] [id number] [address] [place] [address], [place] [address] SP Nov, SP [facility] [address] [id number] [address] [place] [address], [place] [address] SP Nov, SP [facility] [address] [id number] [address] [place] [address], [place] [address] SP Oct, SP [facility] [address] [id number] [address] [place] [address], [place] [address] SP Oct, SP [facility] [address] [id number] [address] [place] [address], [place] [address] SP Oct, SP [facility] [address] [id number] [address] [place] [address], [place] [address] SP Oct, SP [facility] [address] [id number] [address] [place] [address], [place] [address] SP Oct, SP [facility] [address] [id number] [address] [place] [address], [place] [address] SP Oct, SP [facility] [address] [id number] [address] [place] [address], [place] [address] SP Oct, SP [facility] [address] [id number] [address] [place] [address], [place] [address] SP Aug, SP [facility] [address] [id number] [address] [place] [address], [place] [address] SP Jul, SP [facility] [address] [id number] [address] [place] [address], [place] [address] SP Jul, SP [facility] [address] [id number] [address] [place] [address], [place] [address] SP Jul, SP [facility] [address] [id number] [address] [place] [address], [place] [address] SP Jul, SP [facility] [address] [id number] [address] [place] [address], [place] [address] SP Jul, SP [facility] [address] [id number] [address] [place] [address], [place] [address] SP Jul, SP [facility] [address] [id number] [address] [place] [address], [place] [address] SP Jul, SP [facility] [address] [id number] [address] [place] [address], [place] [address] SP Jun, SP [facility] [address] [id number] [address] [place] [address], [place] [address] SP May, SP [facility] [address] [id number] [address] [place] [address], [place] [address] SP May, SP [facility] [address] [id number] [address] [place] [address], [place] [address] SP May, SP [facility] [address] [id number] [address] [place] [address], [place] [address] SP Apr, SP [facility] [address] [id number] [address] [place] [address], [place] [address] SP Apr, SP [facility] [address] [id number] [address] [place] [address], [place] [address] SP Apr, SP [facility] [address] [id number] [address] [place] [address], [place] [address] SP Apr, SP [facility] [address] [id number] [address] [place] [address], [place] [address] SP Apr, SP [facility] [address] [id number] [address] [place] [address], [place] [address] SP Apr, SP [facility] [address] [id number] [address] [place] [address], [place] [address] SP Mar, SP [facility] [address] [id number] [address] [place] [address], [place] [address] SP Mar, SP [facility] [address] [id number] [address] [place] [address], [place] [address] SP Mar, SP [facility] [address] [id number] [address] [place] [address], [place] [address] SP Mar, SP [facility] [address] [id number] [address] [place] [address], [place] [address] SP Mar, SP [facility] [address] [id number] [address] [place] [address], [place] [address] SP Mar, SP [facility] [address] [id number] [address] [place] [address], [place] [address] SP Mar, SP [facility] [address] [id number] [address] [place] [address], [place] [address] SP Dec, SP [facility] [address] [id number] [address] [place] [address], [place] [address] SP Aug, SP [facility] [address] [id number] [address] [place] [address], [place] [address] SP Apr, SP [facility] [address] [id number] [address] [place] [address], [place] [address] SP Mar, SP [facility] [address] [id number] [address] [place] [id number] SP Mar, SP [facility] [address] [id number] [address] [place] [id number] SP Mar, SP [facility] [address] [facility] [id number] [address] [place] [id number] SP Mar, SP [facility] [address] [id number] [address] [place] [id number] SP September, SP [facility] [address] [facility] [id number] [address] [place] [id number] SP Mar, SP [facility] [address] [facility] [id number] [address] [place] [id number] SP Feb, SP [facility] [address] [facility] [id number] [address] [place] [id number] SP Oct, SP [facility] [address] [facility] [id number] [address] [place] [id number] SP September, SP [facility] [address] [facility] [id number] [address] [place] [id number] SP Apr, SP [facility] [address] [facility] [id number] [address] [place] [id number] SP Mar, SP IMMUNIZATIONS No Known Immunizations [...]
--- OUTSIDE RECORDS SUMMARY | 2019-04-01 02:20 | XMS REPORT ---
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 Name Role Phone POS Migration, Doctor Unavailable Unavailable SP PROBLEMS Type Condition ICD9-CM Code LRW30-AC Code Onset Dates Condition S tatus SNOMED POS Problem Peripheral vascular disease I73.9 Ac tive [id number] POS Problem Urinary, incontinence, stress female N39.3 Active [id number] SP Problem Chronic kidney disease, unspecified N18.9 Active 367139919 SP Problem Dysphagia, unspecified R13.10 Active 38465202 SP Problem Anemia of chronic disease D63.8 Acti ve 114618865 SP Problem Cervicalgia M54.2 Active 32325230 72193 SP Problem Essential hypertension I10 Active 60906022 SP Problem 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 228256000 SP Problem Abdominal aortic aneurysm (AAA) without rupture I7 1.4 Active SP Problem Seasonal allergic rhinitis, unspecified allergic rhinitis trigger SP Active 456142815 SP Problem Prediabetes R73.03 Active 45876747 2 SP Problem Mixed hyperlipidemia E78.2 Active 525064198 SP Problem Stenosis of right renal artery I70.1 Active [id number] SP Problem Chronic obstructive pulmonary disease, unspecified COPD ty pe J44.9 SP 65683726 SP Problem Gastroesophageal reflux disease without esophagitis K21.9 Active SP Problem Hepatic steatosis K76.0 Active 19 3954718 SP Problem Renal artery stenosis I70.1 Active 095042684 SP Problem PVD (peripheral vascular disease) I73.9 Active 708937107 SP Problem Arthritis of knee M17.10 Active 37 9863248 SP Problem Other chronic pain G89.29 Active 8 0248992 SP ALLERGIES No Information ENCOUNTERS Encounter Location Date Diagnosis POS [facility] [address] [facility] [id number] [address] [place], [place] SP Oct, Cellulitis of right upper ex tremity L03.113 and Morbid obesity SP [facility] [address] [place] [address] September, Dysuria R30.0 SP Right forearm cellulitis L03.113 [place] [address] [address] SP Jul, Contact dermatitis and other eczema, due to unspecified cause SP ; Morbid obesity E66.01 ; Essential hypertension I10 ; Chronic obstructive pulmonary disease, unspecified COPD type J44.9 ; Chronic kidney disease, unspecified N18.9 and Mixed hyperlipidemia E78.2 [facility] IN [facility] [address] SP Jul, Skin infection L08.9 and Mor bid obesity E66.01 SP [facility] [place] [address] SP Jun, Cellulitis of right arm L03. 113 and BMI 45.0-49.9, adult Z68.42 SP [place] [address] [address] SP May, SP [place] [address] [address] SP May, Chronic obstructive pulmonar y disease, unspecified COPD type SP ; Viral upper respiratory tract infection J06.9 and BMI 45.0-49.9, adult Z68.42 [place] [address] [address] [place] [id number] [place] [address] SP Mar, BMI 45.0-49.9, adult Z68.42 ; Chronic urticaria L50.8 and Skin SP L08.9 [place] [address] [address] [place] [id number] [address] [place] [address] SP Mar, Dermatitis L30.9 and BMI 45. 0-49.9, adult Z68.42 SP [place] [address] [address] [place] [id number] [address] [place] [address] SP Feb, Cellulitis of right upper ex tremity L03.113 and BMI 45.0-49.9, SP Z68.42 [place] [address] [address] SP Feb, Cellulitis of right arm L03. 113 and Status post cardiac SP Z98.890 [place] [address] [address] SP Feb, SP [place] [address] [address] SP Feb, Chronic obstructive pulmonar y disease, unspecified COPD type SP ; Essential hypertension I10 ; Encounter for immunization Z23 ; Mixed hyperlipidemia E78.2 and BMI 45.0-49.9, adult Z68.42 [place] [address] [address] SP Feb, Dysuria R30.0 ; Acute cystit is without hematuria N30.00 and BMI SP49.9, adult Z68.42 [place] [address] [address] SP Dec, SP [place] [address] [address] SP Dec, Essential hypertension I10 ; Chronic kidney disease, unspecified SP ; Mixed hyperlipidemia E78.2 ; Tinea corporis B35.4 ; Right hip pain M25.551 and Acute pain of right knee M25.561 [place] [address] [address] SP Dec, Herpes zoster without compli cation B02.9 ; Dandruff L21.0 ; SP unspecified type R19.7 and BMI 45.0-49.9, adult Z68.42 [place] [address] [address] SP September, Chronic kidney disease, unsp ecified N18.9 ; Essential SP I10 ; Mixed hyperlipidemia E78.2 and BMI 45.0-49.9, adult Z68.42 [place] [address] [address] SP September, SP [place] [address] [address] SP September, Essential hypertension I10 ; Chronic kidney disease, unspecified SP ; Prediabetes R73.03 ; Low back pain M54.5 ; Other chronic pain G89.29 ; Arthritis of knee M17.10 ; Pure hyperglyceridemia E78.1 ; Anemia of chronic disease D63.8 and BMI 45.0-49.9, adult Z68.42 [place] [address] [address] SP Aug, SP [place] [address] [address] SP Jul, Abdominal aortic aneurysm (A AA) without rupture I71.4 ; PVD SP vascular disease) I73.9 ; Renal artery stenosis I70.1 and Essential hypertension I10 [place] [address] [address] SP May, Essential hypertension I10 ; Pure hyperglyceridemia E78.1 ; SP aortic aneurysm (AAA) without rupture I71.4 ; Chronic kidney disease, unspecified N18.9 ; Gastroesophageal reflux disease without esophagitis K21.9 ; 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 ; Stenosis of right renal artery I70.1 ; Anemia of chronic disease D63.8 and Prediabetes R73.03 [place] [address] [address] SP May, Tinea corporis B35.4 and Vir al URI J06.9 SP [place] [address] [address] SP May, SP [place] [address] [address] SP Apr, SP [place] [address] [address] SP Apr, Cervical radiculopathy M54.1 2 SP [facility] [address] [facility] [id number] [address] [place] [address] SP Apr, Flank pain R10.9 and Acute p yelonephritis N10 SP [facility] [address] [facility] [id number] [address] [place] [address] SP Apr, SP [facility] [address] [address] SP Mar, SP [facility] [address] [facility] [id number] [address] [place] [address] SP Feb, Pain of right shoulder regio n M25.511 SP [facility] [address] [place] [id number] [place] [address] SP Feb, History of glaucoma Z86.69 ; Vision changes H53.9 ; Abdominal SP aneurysm (AAA) without rupture I71.4 ; Xerosis of skin L85.3 and Pain in right shoulder M25.511 [facility] [address] [place] [id number] [place] [address] SP Feb, SP [facility] [address] [place] [id number] [place] [address] SP Jan, Essential hypertension I10 ; Pure hyperglyceridemia E78.1 ; SP kidney disease, unspecified N18.9 ; Gastroesophageal reflux disease without esophagitis K21.9 ; 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 ; Stenosis of right renal artery I70.1 ; Anemia of chronic disease D63.8 ; Prediabetes R73.03 ; Pain of right shoulder region M25.511 and Homeless Z59.0 [place] [address] [address] [place] [id number] [place] [address] SP Jan, Neck pain M54.2 and Seasonal allergic rhinitis, unspecified SP rhinitis trigger J30.2 [facility] [address] [place] [id number] [address] [place] [address] SP Dec, SP [facility] [address] [place] [id number] [place] [address] SP Dec, SP [place] [address] [place] [id number] [place] [address] SP Dec, Blood glucose abnormal R73.0 9 [...] H. 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 ; Abdominal aortic aneurysm (AAA) without rupture I71.4 ; Stenosis of right renal artery I70.1 ; Anemia of chronic disease D63.8 and Acute non-recurrent maxillary sinusitis J01.00 [place] [address] [address] [place] [id number] [address] [place] [address] SP Jun, Acute non-recurrent maxillar y sinusitis J01.00 ; Acute mucoid SP media of left ear H65.112 ; Nausea R11.0 and Fever and chills R50.9 [place] [address] [address] [place] [id number] [address] [place] [address] SP May, Acute right flank pain R10.9 SP [facility] [address] [facility] [id number] [address] [place] [address] SP Apr, Acute nasopharyngitis J00 ; Pure hyperglyceridemia E78.1 and SP kidney disease, unspecified N18.9 [facility] [address] [facility] [id number] [address] [place] [address] SP Apr, SP [facility] [address] [facility] [id number] [address] [place] [address] SP Apr, Blood glucose abnormal R73.0 9 ; Essential hypertension I10 ; Pure SPhyperglyceridemia E78.1 ; Chronic kidney disease, unspecified N18.9 ; Gastroesophageal reflux disease without esophagitis K21.9 ; 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 ; Abdominal aortic aneurysm (AAA) without rupture I71.4 ; Stenosis of right renal artery I70.1 ; RUQ pain R10.11 and Anemia of chronic disease D63.8 [facility] [address] [facility] [id number] [address] [place] [address] SP Mar, Blood glucose abnormal R73.0 9 SP [facility] [address] [facility] [id number] [address] [place] [address] SP Mar, Cellulitis of right lower le g L03.115 SP [facility] [address] [facility] [id number] [address] [place] [address] SP Feb, SP [facility] [address] [place] [id number] [address] [place] [address] SP Feb, Dysuria R30.0 and Upper resp iratory tract infection, unspecified SP J06.9 [facility] [address] [facility] [id number] [address] [place] [address] SP Jan, SP [facility] [address] [facility] [id number] [address] [place] [address] SP Jan, SP [facility] [address] [place] [id number] [address] [place] [address] SP Dec, SP [place] [address] [place] [id number] [place] [address] SP Dec, Anemia of chronic disease D6 3.8 ; Essential hypertension I10 ; SP hyperglyceridemia E78.1 ; Chronic kidney disease, unspecified N18.9 ; Gastroesophageal reflux disease without esophagitis K21.9 ; 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 and Pain in right knee M25.[address] [address] SP Dec, Left shoulder strain, subseq uent encounter S46.912D ; Urinary SP R35.0 ; Lung nodule, solitary R91.1 ; Essential hypertension I10 and Acute cystitis without hematuria N30.[address] [address] SP Nov, Left-sided chest wall pain R 07.89 and Abnormal chest xray R93.[address] [address] SP Nov, Pain of right lower extremit y M79.604 ; Swelling of right lower SP M79.89 ; Diarrhea, unspecified R19.7 ; Nausea with vomiting, unspecified R11.2 ; Left-sided chest wall pain R07.89 ; Chronic kidney disease, unspecified N18.9 ; Gastroesophageal reflux disease without esophagitis K21.9 and Other seasonal allergic rhinitis J30.[address] [address] SP September, Essential hypertension I10 ; Chronic kidney disease, unspecified SP ; Anemia of chronic disease D63.8 ; Pure hyperglyceridemia E78.1 ; Peripheral vascular disease I73.9 ; Abnormal glucose R73.09 ; 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 ; Gastroesophageal reflux disease without esophagitis K21.9 ; Allergic rhinitis J30.9 and Rash R21 [place] [id number] [address] [place] [address] SP Aug, Abdominal pain R10.9 and Con stipation K59.00 SP [place] [address] [address] [place] [id number] [address] [place] [address] SP Jul, Injury of toe on right foot S99.921A SP [place] [address] [place] [id number] [address] [place] [phone] SP 14 Jul, 2015 SP [place] [address] [place] [id number] [place] [address] SP Jul, Essential hypertension I10 ; Chronic kidney disease, unspecified SP ; Anemia of chronic disease D63.8 ; Pure hyperglyceridemia E78.1 ; Peripheral vascular disease I73.9 ; Abnormal glucose R73.09 ; 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 ; Gastroesophageal reflux disease without esophagitis K21.9 and Allergic rhinitis J30.9 [place] [address] [place] [id number] [address] [place] [address] SP Jun, Low back pain M54.5 SP [place] [address] [place] [id number] [place] [address] SP Jun, SP [place] [address] [place] [id number] [place] [address] SP May, URI (upper respiratory infec tion) J06.9 SP [place] [address] [address] [place] [id number] [address] [place] [address] SP Apr, Essential hypertension I10 SP [place] [address] [place] [id number] [place] [address] SP Apr, Essential hypertension I10 ; Chronic kidney disease, unspecified SP ; Anemia of chronic disease D63.8 ; Pure hyperglyceridemia E78.1 ; Peripheral vascular disease I73.9 ; Abnormal glucose R73.09 ; URI (upper respiratory infection) J06.9 ; 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 ; Gastroesophageal reflux disease without esophagitis K21.9 and Cough R05 [place] [address] [facility] [id number] [address] [place] [address] SP Mar, Flank pain R10.9 and URI (up per respiratory infection) J06.9 SP [facility] [address] [address] SP Mar, Right-sided low back pain wi thout sciatica M54.5 and Hematuria, SP R31.9 [place] [address] [address] SP Mar, Hypopigmentation L81.9 and H yperpigmentation L81.9 SP [place] [address] [address] SP Mar, SP [place] [address] [address] SP Mar, Acute cystitis with hematuri a N30.01 SP [place] [address] [address] SP Mar, SP [place] [address] [address] SP Feb, Furuncle L02.92 ; Hypopigmen tation L81.9 ; Hyperpigmentation SP ; Urinary frequency R35.0 ; Screening for malignant neoplasm of cervix Z12.4 ; Vaginal discharge N89.8 ; Urinary, incontinence, stress female N39.3 and Vaginal irritation N89.8 [place] [address] [address] SP Jan, Muscle spasm 728.85 ; Unspec ified peripheral vascular disease SP ; Benign essential hypertension 401.1 ; Chronic renal insufficiency 585.9 ; Chronic constipation 564.00 ; GERD (gastroesophageal reflux disease) 530.81 ; Hyperlipidemia 272.4 and Chronic leg pain 729.5 [place] [address] [address] SP Jan, Sinusitis 473.9 SP [place] [address] [address] SP Dec, [place] [address] [place] [id number] [place] [address] SP Dec, Acute bronchitis 466.0 [place] [address] [address] SP Dec, Acute bronchitis 466.0 SP [place] [address] [address] SP Dec, Unspecified episodic mood di sorder 296.90 [place] [address] [address] SP Dec, Visit for suture removal V58 .[address] [address] SP Nov, Allergic rhinitis 477.9 and Onychomycosis 110.1 [place] [address] [address] SP Oct, Muscle spasm 728.85 ; Benign essential hypertension 401.1 ; SP renal insufficiency 585.9 ; Chronic constipation 564.00 ; GERD (gastroesophageal reflux disease) 530.81 and Hyperlipidemia 272.4 [place] [address] [place] [id number] [place] [address] SP Oct, Otalgia of left ear 388.70 [place] [address] [address] SP Oct, Unspecified episodic mood di sorder 296.90 [place] [address] [place] [id number] [place] [address] SP September, Unspecified episodic mood di sorder 296.90 [place] [address] [address] SP September, Unspecified episodic mood di sorder 296.90 [facility] [address] [place] [id number] [place] [address] SP September, Urinary frequency 788.41 and Constipation 564.00 SP [facility] [address] [id number] [address] [place] [address], [place] [address] SP 14 Aug, 2014 SP [facility] [address] [id number] [address] [place] [address], [place] [address] SP 13 Aug, 2014 SP [facility] [address] [id number] [address] [place] [address], [place] [address] SP Jul, SP [facility] [address] [id number] [address] [place] [address], [place] [address] SP Jul, SP [facility] [address] [id number] [address] [place] [address], [place] [address] SP Jul, SP [facility] [address] [id number] [address] [place] [address], [place] [address] SP Jul, SP [facility] [address] [id number] [address] [place] [address] SP Jul, SP [facility] [address] [id number] [address] [place] [address], [place] [address] SP Jul, SP [facility] [address] [id number] [address] [place] [address], [place] [address] SP Jul, SP [facility] [address] [id number] [address] [place] [address], [place] [address] SP Jul, SP [facility] [address] [id number] [address] [place] [address], [place] [address] SP Jul, SP [facility] [address] [id number] [address] [place] [address], [place] [address] SP Jul, SP [facility] [address] [id number] [address] [place] [address], [place] [address] SP Jun, SP [facility] [address] [id number] [address] [place] [address] SP Jun, SP [facility] [address] [id number] [address] [place] [address] SP May, SP [facility] [address] [id number] [address] [place] [address], [place] [address] SP May, SP [facility] [address] [id number] [address] [place] [address], [place] [address] SP May, SP [facility] [address] [id number] [address] [place] [address], [place] [address] SP May, SP [facility] [address] [id number] [address] [place] [address], [place] [address] SP May, SP [facility] [address] [id number] [address] [place] [address], [place] [address] SP May, SP [facility] [address] [id number] [address] [place] [address], [place] [address] SP May, SP [facility] [address] [id number] [address] [place] [address], [place] [address] SP May, SP [facility] [address] [id number] [address] [place] [address], [place] [address] SP May, SP [facility] [address] [id number] [address] [place] [address], [place] [address] SP May, SP [facility] [address] [id number] [address] [place] [address], [place] [address] SP May, SP [facility] [address] [id number] [address] [place] [address], [place] [address] SP May, SP [facility] [address] [id number] [address] [place] [address], [place] [address] SP May, SP [facility] [address] [id number] [address] [place] [address], [place] [address] SP Feb, SP [facility] [address] [id number] [address] [place] [address], [place] [address] SP Feb, SP [facility] [address] [id number] [facility] [place] [address] SP 20 Sep, 2013 SP [facility] [address] [id number] [address] [place] [address], [place] [address] SP 20 Sep, 2013 SP [facility] [address] [id number] [address] [place] [address], [place] [address] SP 18 Sep, 2013 SP [facility] [address] [id number] [address] [place] [address], [place] [address] SP 18 Sep, 2013 SP [facility] [address] [id number] [address] [place] [address], [place] [address] SP 12 Jan, 2013 SP [facility] [address] [id number] [address] [place] [address], [place] [address] SP 12 Jan, 2013 SP [facility] [address] [id number] [address] [place] [address], [place] [address] SP 12 Jan, 2013 SP [facility] [address] [id number] [address] [place] [address], [place] [address] SP 12 Jan, 2013 SP [facility] [address] [id number] [address] [place] [address], [place] [address] SP 11 Jan, 2013 SP [facility] [address] [id number] [address] [place] [address], [place] [address] SP 11 Jan, 2013 SP [facility] [address] [id number] [address] [place] [address], [place] [address] SP 10 Jan, 2013 SP [facility] [address] [id number] [address] [place] [address], [place] [address] SP 10 Jan, 2013 SP [facility] [address] [id number] [address] [place] [address], [place] [address] SP Oct, SP [facility] [address] [id number] [address] [place] [address], [place] [address] SP Oct, SP [facility] [address] [id number] [address] [place] [address], [place] [address] SP Oct, SP [facility] [address] [id number] [address] [place] [address], [place] [address] SP Oct, SP [facility] [address] [id number] [address] [place] [address], [place] [address] SP Jun, SP [facility] [address] [id number] [address] [place] [address], [place] [address] SP Jun, SP [facility] [address] [id number] [address] [place] [address], [place] [address] SP Jun, SP [facility] [address] [id number] [address] [place] [address], [place] [address] SP Jun, SP [facility] [address] [id number] [address] [place] [address], [place] [address] SP Apr, SP [facility] [address] [id number] [address] [place] [address], [place] [address] SP Apr, SP [facility] [address] [id number] [address] [place] [address], [place] [address] SP Feb, SP [facility] [address] [id number] [address] [place] [address], [place] [address] SP Feb, SP [facility] [address] [id number] [address] [place] [address], [place] [address] SP Dec, SP [facility] [address] [id number] [address] [place] [address], [place] [address] SP Dec, SP [facility] [address] [id number] [address] [place] [address], [place] [address] SP Nov, SP [facility] [address] [id number] [address] [place] [address], [place] [address] SP Nov, SP [facility] [address] [id number] [address] [place] [address], [place] [address] SP Nov, SP [facility] [address] [id number] [address] [place] [address], [place] [address] SP Oct, SP [facility] [address] [id number] [address] [place] [address], [place] [address] SP September, SP [facility] [address] [id number] [address] [place] [address], [place] [address] SP September, SP [facility] [address] [id number] [address] [place] [address], [place] [address] SP Aug, SP [facility] [address] [id number] [address] [place] [address], [place] [address] SP Aug, SP [facility] [address] [id number] [address] [place] [address], [place] [address] SP Aug, SP [facility] [address] [id number] [address] [place] [address], [place] [address] SP Aug, SP [facility] [address] [id number] [address] [place] [address], [place] [address] SP Aug, SP [facility] [address] [id number] [address] [place] [address], [place] [address] SP Aug, SP [facility] [address] [id number] [address] [place] [address], [place] [address] SP Jul, SP [facility] [address] [id number] [address] [place] [address], [place] [address] SP Jul, SP [facility] [address] [id number] [address] [place] [address], [place] [address] SP Jul, SP [facility] [address] [id number] [address] [place] [address], [place] [address] SP 15 Jul, 2012 SP [facility] [address] [id number] [address] [place] [address], [place] [address] SP Jul, SP [facility] [address] [id number] [address] [place] [address], [place] [address] SP Jul, SP [facility] [address] [id number] [address] [place] [address], [place] [address] SP Jun, SP [facility] [address] [id number] [address] [place] [address], [place] [address] SP Jun, SP [facility] [address] [id number] [address] [place] [address], [place] [address] SP May, SP [facility] [address] [id number] [address] [place] [address], [place] [address] SP May, SP [facility] [address] [id number] [address] [place] [address], [place] [address] SP Apr, SP [facility] [address] [id number] [address] [place] [address], [place] [address] SP Apr, SP [facility] [address] [id number] [address] [place] [address], [place] [address] SP Apr, SP [facility] [address] [id number] [address] [place] [address], [place] [address] SP Apr, SP [facility] [address] [id number] [address] [place] [address], [place] [address] SP Apr, SP [facility] [address] [id number] [address] [place] [address], [place] [address] SP Mar, SP [facility] [address] [id number] [address] [place] [address], [place] [address] SP Mar, SP [facility] [address] [id number] [address] [place] [address], [place] [address] SP Mar, SP [facility] [address] [id number] [address] [place] [address], [place] [address] SP Mar, SP [facility] [address] [id number] [address] [place] [address], [place] [address] SP Mar, SP [facility] [address] [id number] [address] [place] [address], [place] [address] SP Mar, SP [facility] [address] [id number] [address] [place] [address], [place] [address] SP Mar, SP [facility] [address] [id number] [address] [place] [address], [place] [address] SP Feb, SP [facility] [address] [id number] [address] [place] [address], [place] [address] SP Feb, SP [facility] [address] [id number] [address] [place] [address], [place] [address] SP Feb, SP [facility] [address] [id number] [address] [place] [address], [place] [address] SP Feb, SP [facility] [address] [id number] [address] [place] [address], [place] [address] SP Dec, SP [facility] [address] [id number] [address] [place] [address], [place] [address] SP Nov, SP [facility] [address] [id number] [address] [place] [address], [place] [address] SP Nov, SP [facility] [address] [id number] [address] [place] [address], [place] [address] SP Oct, SP [facility] [address] [id number] [address] [place] [address], [place] [address] SP Oct, SP [facility] [address] [id number] [address] [place] [address], [place] [address] SP Oct, SP [facility] [address] [id number] [address] [place] [address], [place] [address] SP Oct, SP [facility] [address] [id number] [address] [place] [address], [place] [address] SP Oct, SP [facility] [address] [id number] [address] [place] [address], [place] [address] SP Oct, SP [facility] [address] [id number] [address] [place] [address], [place] [address] SP Oct, SP [facility] [address] [id number] [address] [place] [address], [place] [address] SP Aug, SP [facility] [address] [id number] [address] [place] [address], [place] [address] SP Jul, SP [facility] [address] [id number] [address] [place] [address], [place] [address] SP Jul, SP [facility] [address] [id number] [address] [place] [address], [place] [address] SP Jul, SP [facility] [address] [id number] [address] [place] [address], [place] [address] SP Jul, SP [facility] [address] [id number] [address] [place] [address], [place] [address] SP Jul, SP [facility] [address] [id number] [address] [place] [address], [place] [address] SP Jul, SP [facility] [address] [id number] [address] [place] [address], [place] [address] SP Jul, SP [facility] [address] [id number] [address] [place] [address], [place] [address] SP Jun, SP [facility] [address] [id number] [address] [place] [address], [place] [address] SP May, SP [facility] [address] [id number] [address] [place] [address], [place] [address] SP May, SP [facility] [address] [id number] [address] [place] [address], [place] [address] SP May, SP [facility] [address] [id number] [address] [place] [address], [place] [address] SP Apr, SP [facility] [address] [id number] [address] [place] [address], [place] [address] SP Apr, SP [facility] [address] [id number] [address] [place] [address], [place] [address] SP Apr, SP [facility] [address] [id number] [address] [place] [address], [place] [address] SP Apr, SP [facility] [address] [id number] [address] [place] [address], [place] [address] SP Apr, SP [facility] [address] [id number] [address] [place] [address], [place] [address] SP Apr, SP [facility] [address] [id number] [address] [place] [address], [place] [address] SP Mar, SP [facility] [address] [id number] [address] [place] [address], [place] [address] SP Mar, SP [facility] [address] [id number] [address] [place] [address], [place] [address] SP Mar, SP [facility] [address] [id number] [address] [place] [address], [place] [address] SP Mar, SP [facility] [address] [id number] [address] [place] [address], [place] [address] SP Mar, SP [facility] [address] [id number] [address] [place] [address], [place] [address] SP Mar, SP [facility] [address] [id number] [address] [place] [address], [place] [address] SP Mar, SP [facility] [address] [id number] [address] [place] [address], [place] [address] SP Dec, SP [facility] [address] [id number] [address] [place] [address], [place] [address] SP Aug, SP [facility] [address] [id number] [address] [place] [address], [place] [address] SP Apr, SP [facility] [address] [id number] [address] [place] [address], [place] [address] SP Mar, SP [facility] [address] [id number] [address] [place] [address] SP Mar, SP [facility] [address] [id number] [address] [place] [address] SP Mar, SP [facility] [address] [facility] [id number] [address] [place] [address] SP Mar, SP [facility] [address] [id number] [address] [place] [address] SP September, SP [facility] [address] [facility] [id number] [address] [place] [address] SP Mar, SP [facility] [address] [facility] [id number] [address] [place] [id number] SP Feb, SP [facility] [address] [facility] [id number] [address] [place] [address] SP Oct, SP [facility] [address] [facility] [id number] [address] [place] [id number] SP September, SP [facility] [address] [facility] [id number] [address] [place] [id number] SP Apr, SP [facility] [address] [facility] [id number] [address] [place] [id number] SP Mar, SP IMMUNIZATIONS No Known Immunizations [...]
--- OUTSIDE RECORDS SUMMARY | 2019-04-01 02:20 | XMS REPORT ---
Author Author Migration, Doctor POS Organization 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 Name Role Phone POS Migration, Doctor Unavailable Unavailable SP PROBLEMS Type Condition ICD9-CM Code [id number] Code Onset Dates Condition S tatus SNOMED POS Problem Peripheral vascular disease I73.9 Ac tive [id number] POS Problem Urinary, incontinence, stress female N39.3 Active [id number] SP Problem Chronic kidney disease, unspecified N18.9 Active 627005371 SP Problem Dysphagia, unspecified R13.10 Active 09787397 SP Problem Anemia of chronic disease D63.8 Acti ve [id number] SP Problem Cervicalgia M54.2 Active 03948087 96512 SP Problem Essential hypertension I10 Active 52190687 SP Problem 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 732829513 SP Problem Abdominal aortic aneurysm (AAA) without rupture I7 1.4 Active SP Problem Seasonal allergic rhinitis, unspecified allergic rhinitis trigger SP Active 673404106 SP Problem Prediabetes R73.03 Active 76353303 2 SP Problem Mixed hyperlipidemia E78.2 Active 902481458 SP Problem Stenosis of right renal artery I70.1 Active [id number] SP Problem Chronic obstructive pulmonary disease, unspecified COPD ty pe J44.9 SP 52609785 SP Problem Gastroesophageal reflux disease without esophagitis K21.9 Active SP Problem Hepatic steatosis K76.0 Active 19 7231837 SP Problem Renal artery stenosis I70.1 Active 871011111 SP Problem PVD (peripheral vascular disease) I73.9 Active 702654314 SP Problem Arthritis of knee M17.10 Active 37 5996100 SP Problem Other chronic pain G89.29 Active 8 0286283 SP ALLERGIES No Information ENCOUNTERS Encounter Location Date Diagnosis POS [facility] [address] [facility] [id number] [address] [place], [place] SP Oct, Cellulitis of right upper ex tremity L03.113 and Morbid obesity SP [facility] [address] [place] [address] September, Dysuria R30.0 SP Right forearm cellulitis L03.113 [place] [address] [address] SP Jul, Contact dermatitis and other eczema, due to unspecified cause SP ; Morbid obesity E66.01 ; Essential hypertension I10 ; Chronic obstructive pulmonary disease, unspecified COPD type J44.9 ; Chronic kidney disease, unspecified N18.9 and Mixed hyperlipidemia E78.2 [facility] [address] SP Jul, Skin infection L08.9 and Mor bid obesity E66.01 SP [facility] [place] [address] SP Jun, Cellulitis of right arm L03. 113 and BMI 45.0-49.9, adult Z68.42 SP [place] [address] [address] SP May, SP [place] [address] [address] SP May, Chronic obstructive pulmonar y disease, unspecified COPD type SP ; Viral upper respiratory tract infection J06.9 and BMI 45.0-49.9, adult Z68.42 [place] [address] [address] [place] [id number] [address] [place] [address] SP Mar, BMI 45.0-49.9, adult Z68.42 ; Chronic urticaria L50.8 and Skin SP L08.9 [place] [address] [address] [place] [id number] [address] [place] [address] SP Mar, Dermatitis L30.9 and BMI 45. 0-49.9, adult Z68.42 SP [place] [address] [place] [id number] [address] [place] [address] SP Feb, Cellulitis of right upper ex tremity L03.113 and BMI 45.0-49.9, SP Z68.42 [place] [address] [address] SP Feb, Cellulitis of right arm L03. 113 and Status post cardiac SP Z98.890 [place] [address] [address] SP Feb, SP [place] [address] [address] SP Feb, Chronic obstructive pulmonar y disease, unspecified COPD type SP ; Essential hypertension I10 ; Encounter for immunization Z23 ; Mixed hyperlipidemia E78.2 and BMI 45.0-49.9, adult Z68.42 [place] [address] [address] SP Feb, Dysuria R30.0 ; Acute cystit is without hematuria N30.00 and BMI SP49.9, adult Z68.42 [place] [address] [address] SP Dec, SP [place] [address] [address] SP Dec, Essential hypertension I10 ; Chronic kidney disease, unspecified SP ; Mixed hyperlipidemia E78.2 ; Tinea corporis B35.4 ; Right hip pain M25.551 and Acute pain of right knee M25.561 [place] [address] [address] SP Dec, Herpes zoster without compli cation B02.9 ; Dandruff L21.0 ; SP unspecified type R19.7 and BMI 45.0-49.9, adult Z68.42 [place] [address] [address] SP September, Chronic kidney disease, unsp ecified N18.9 ; Essential SP I10 ; Mixed hyperlipidemia E78.2 and BMI 45.0-49.9, adult Z68.42 [place] [address] [address] SP September, SP [place] [address] [address] SP September, Essential hypertension I10 ; Chronic kidney disease, unspecified SP ; Prediabetes R73.03 ; Low back pain M54.5 ; Other chronic pain G89.29 ; Arthritis of knee M17.10 ; Pure hyperglyceridemia E78.1 ; Anemia of chronic disease D63.8 and BMI 45.0-49.9, adult Z68.42 [place] [address] [address] SP Aug, SP [place] [address] [address] SP Jul, Abdominal aortic aneurysm (A AA) without rupture I71.4 ; PVD SP vascular disease) I73.9 ; Renal artery stenosis I70.1 and Essential hypertension I10 [place] [address] [address] SP May, Essential hypertension I10 ; Pure hyperglyceridemia E78.1 ; SP aortic aneurysm (AAA) without rupture I71.4 ; Chronic kidney disease, unspecified N18.9 ; Gastroesophageal reflux disease without esophagitis K21.9 ; 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 [address] [facility] [id number] [address] [place] [address] SP Apr, Flank pain R10.9 and Acute p yelonephritis N10 SP [facility] [address] [facility] [id number] [address] [place] [address] SP Apr, SP [facility] [address] [address] SP Mar, SP [facility] [address] [facility] [id number] [address] [place] [address] SP Feb, Pain of right shoulder regio n M25.511 SP [facility] [address] [place] [id number] [place] [address] SP Feb, History of glaucoma Z86.69 ; Vision changes H53.9 ; Abdominal SP aneurysm (AAA) without rupture I71.4 ; Xerosis of skin L85.3 and Pain in right shoulder M25.511 [facility] [address] [place] [id number] [place] [address] SP Feb, SP [facility] [address] [place] [id number] [place] [address] SP Jan, Essential hypertension I10 ; Pure hyperglyceridemia E78.1 ; SP kidney disease, unspecified N18.9 ; Gastroesophageal reflux disease without esophagitis K21.9 ; 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 ; Stenosis of right renal artery I70.1 ; Anemia of chronic disease D63.8 ; Prediabetes R73.03 ; Pain of right shoulder region M25.511 and Homeless Z59.0 [place] [address] [address] [place] [id number] [place] [address] SP Jan, Neck pain M54.2 and Seasonal allergic rhinitis, unspecified SP rhinitis trigger J30.2 [facility] [address] [place] [id number] [address] [place] [address] SP Dec, SP [facility] [address] [place] [address] [place] [address] SP Dec, SP [place] [address] [place] [id number] [place] [address] SP Dec, Blood glucose abnormal R73.0 9 [...] pylori infection A04.8 and Prediabetes R73.03 [facility] [address] SP Oct, Seasonal allergic rhinitis, unspecified allergic rhinitis SP J30.2 [place] [address] [address] SP September, Eustachian tube dysfunction, left H69.82 and Candidiasis of SP B37.89 [place] [address] [address] [place] [id number] [place] [address] SP Jul, Blood glucose abnormal R73.0 9 ; Essential hypertension I10 ; Pure SPhyperglyceridemia E78.1 ; Chronic kidney disease, unspecified N18.9 ; Gastroesophageal reflux disease without esophagitis K21.9 ; 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 ; Abdominal aortic aneurysm (AAA) without rupture I71.4 ; Stenosis of right renal artery I70.1 ; Anemia of chronic disease D63.8 and Acute non-recurrent maxillary sinusitis J01.00 [place] [address] [place] [id number] [address] [place] [address] SP Jun, Acute non-recurrent maxillar y sinusitis J01.00 ; Acute mucoid SP media of left ear H65.112 ; Nausea R11.0 and Fever and chills R50.9 [place] [address] [address] [place] [id number] [address] [place] [address] SP May, Acute right flank pain R10.9 SP [facility] [address] [facility] [id number] [address] [place] [address] SP Apr, Acute nasopharyngitis J00 ; Pure hyperglyceridemia E78.1 and SP kidney disease, unspecified N18.9 [facility] [address] [facility] [id number] [address] [place] [address] SP Apr, SP [facility] [address] [facility] [id number] [address] [place] [address] SP Apr, Blood glucose abnormal R73.0 9 ; Essential hypertension I10 ; Pure SPhyperglyceridemia E78.1 ; Chronic kidney disease, unspecified N18.9 ; Gastroesophageal reflux disease without esophagitis K21.9 ; 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 [address] [facility] [id number] [address] [place] [address] SP Feb, SP [facility] [address] [place] [id number] [address] [place] [address] SP Feb, Dysuria R30.0 and Upper resp iratory tract infection, unspecified SP J06.9 [facility] [address] [facility] [id number] [address] [place] [address] SP Jan, SP [facility] [address] [facility] [id number] [address] [place] [address] SP Jan, SP [facility] [address] [place] [id number] [address] [place] [address] SP Dec, SP [place] [address] [place] [id number] [place] [address] SP Dec, Anemia of chronic disease D6 3.8 ; Essential hypertension I10 ; SP hyperglyceridemia E78.1 ; Chronic kidney disease, unspecified N18.9 ; Gastroesophageal reflux disease without esophagitis K21.9 ; 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 and Pain in right knee M25.[address] [address] SP Dec, Left shoulder strain, subseq uent encounter S46.912D ; Urinary SP R35.0 ; Lung nodule, solitary R91.1 ; Essential hypertension I10 and Acute cystitis without hematuria N30.[address] [address] SP Nov, Left-sided chest wall pain R 07.89 and Abnormal chest xray R93.[address] [address] SP Nov, Pain of right lower extremit y M79.604 ; Swelling of right lower SP M79.89 ; Diarrhea, unspecified R19.7 ; Nausea with vomiting, unspecified R11.2 ; Left-sided chest wall pain R07.89 ; Chronic kidney disease, unspecified N18.9 ; Gastroesophageal reflux disease without esophagitis K21.9 and Other seasonal allergic rhinitis J30.[address] [address] SP September, Essential hypertension I10 ; Chronic kidney disease, unspecified SP ; Anemia of chronic disease D63.8 ; Pure hyperglyceridemia E78.1 ; Peripheral vascular disease I73.9 ; Abnormal glucose R73.09 ; 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 ; Gastroesophageal reflux disease without esophagitis K21.9 ; Allergic rhinitis J30.9 and Rash R21 [place] [id number] [place] [address] SP Aug, Abdominal pain R10.9 and Con stipation K59.00 SP [place] [address] [place] [id number] [address] [place] [address] SP Jul, Injury of toe on right foot S99.921A SP [place] [address] [place] [id number] [address] [place] [address] SP 14 Jul, 2015 SP [place] [address] [place] [id number] [place] [address] SP Jul, Essential hypertension I10 ; Chronic kidney disease, unspecified SP ; Anemia of chronic disease D63.8 ; Pure hyperglyceridemia E78.1 ; Peripheral vascular disease I73.9 ; Abnormal glucose R73.09 ; 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 ; Gastroesophageal reflux disease without esophagitis K21.9 and Allergic rhinitis J30.9 [place] [address] [place] [id number] [address] [place] [address] SP Jun, Low back pain M54.5 SP [place] [address] [place] [id number] [place] [address] SP Jun, SP [place] [address] [place] [id number] [place] [address] SP May, URI (upper respiratory infec tion) J06.9 SP [place] [address] [place] [id number] [address] [place] [address] SP Apr, Essential hypertension I10 SP [place] [address] [place] [id number] [place] [address] SP Apr, Essential hypertension I10 ; Chronic kidney disease, unspecified SP ; Anemia of chronic disease D63.8 ; Pure hyperglyceridemia E78.1 ; Peripheral vascular disease I73.9 ; Abnormal glucose R73.09 ; URI (upper respiratory infection) J06.9 ; 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 ; Gastroesophageal reflux disease without esophagitis K21.9 and Cough R05 [place] [address] [facility] [id number] [address] [place] [address] SP Mar, Flank pain R10.9 and URI (up per respiratory infection) J06.9 SP [facility] [address] [address] SP Mar, Right-sided low back pain wi thout sciatica M54.5 and Hematuria, SP R31.9 [place] [address] [address] SP Mar, Hypopigmentation L81.9 and H yperpigmentation L81.9 SP [place] [address] [address] SP Mar, SP [place] [address] [address] SP Mar, Acute cystitis with hematuri a N30.01 SP [place] [address] [address] SP Mar, SP [place] [address] [address] SP Feb, Furuncle L02.92 ; Hypopigmen tation L81.9 ; Hyperpigmentation SP ; Urinary frequency R35.0 ; Screening for malignant neoplasm of cervix Z12.4 ; Vaginal discharge N89.8 ; Urinary, incontinence, stress female N39.3 and Vaginal irritation N89.8 [place] [address] [address] SP Jan, Muscle spasm 728.85 ; Unspec ified peripheral vascular disease SP ; Benign essential hypertension 401.1 ; Chronic renal insufficiency 585.9 ; Chronic constipation 564.00 ; GERD (gastroesophageal reflux disease) 530.81 ; Hyperlipidemia 272.4 and Chronic leg pain 729.5 [place] [address] [address] SP Jan, Sinusitis 473.9 SP [place] [address] [address] SP Dec, [place] [address] [place] [id number] [address] [place] [address] SP Dec, Acute bronchitis 466.0 [place] [address] [address] SP Dec, Acute bronchitis 466.0 SP [place] [address] [address] SP Dec, Unspecified episodic mood di sorder 296.90 [place] [address] [address] SP Dec, Visit for suture removal V58 .[address] [address] SP Nov, Allergic rhinitis 477.9 and Onychomycosis 110.1 [place] [address] [address] SP Oct, Muscle spasm 728.85 ; Benign essential hypertension 401.1 ; SP renal insufficiency 585.9 ; Chronic constipation 564.00 ; GERD (gastroesophageal reflux disease) 530.81 and Hyperlipidemia 272.4 [place] [address] [place] [id number] [address] [place] [address] SP Oct, Otalgia of left ear 388.70 [place] [address] [address] SP Oct, Unspecified episodic mood di sorder 296.90 [place] [address] [place] [id number] [place] [address] SP September, Unspecified episodic mood di sorder 296.90 [place] [address] [address] SP September, Unspecified episodic mood di sorder 296.90 [facility] [address] [place] [id number] [place] [address] SP September, Urinary frequency 788.41 and Constipation 564.00 SP [facility] [address] [id number] [address] [place] [address], [place] [address] SP 14 Aug, 2014 SP [facility] [address] [id number] [address] [place] [address], [place] [address] SP 13 Aug, 2014 SP [facility] [address] [id number] [address] [place] [address], [place] [address] SP Jul, SP [facility] [address] [id number] [address] [place] [address], [place] [address] SP Jul, SP [facility] [address] [id number] [address] [place] [address], [place] [address] SP Jul, SP [facility] [address] [id number] [address] [place] [address], [place] [address] SP Jul, SP [facility] [address] [id number] [address] [place] [address] SP Jul, SP [facility] [address] [id number] [address] [place] [address], [place] [address] SP Jul, SP [facility] [address] [id number] [address] [place] [address], [place] [address] SP Jul, SP [facility] [address] [id number] [address] [place] [address], [place] [address] SP Jul, SP [facility] [address] [id number] [address] [place] [address], [place] [address] SP Jul, SP [facility] [address] [id number] [address] [place] [address], [place] [address] SP Jul, SP [facility] [address] [id number] [address] [place] [address], [place] [address] SP Jun, SP [facility] [address] [id number] [address] [place] [address] SP Jun, SP [facility] [address] [id number] [address] [place] [address] SP May, SP [facility] [address] [id number] [address] [place] [address], [place] [address] SP May, SP [facility] [address] [id number] [address] [place] [address], [place] [address] SP May, SP [facility] [address] [id number] [address] [place] [address], [place] [address] SP May, SP [facility] [address] [id number] [address] [place] [address], [place] [address] SP May, SP [facility] [address] [id number] [address] [place] [address], [place] [address] SP May, SP [facility] [address] [id number] [address] [place] [address], [place] [address] SP May, SP [facility] [address] [id number] [address] [place] [address], [place] [address] SP May, SP [facility] [address] [id number] [address] [place] [address], [place] [address] SP May, SP [facility] [address] [id number] [address] [place] [address], [place] [address] SP May, SP [facility] [address] [id number] [address] [place] [address], [place] [address] SP May, SP [facility] [address] [id number] [address] [place] [address], [place] [address] SP May, SP [facility] [address] [id number] [address] [place] [address], [place] [address] SP May, SP [facility] [address] [id number] [address] [place] [address], [place] [address] SP Feb, SP [facility] [address] [id number] [address] [place] [address], [place] [address] SP Feb, SP [facility] [address] [id number] [facility] [place] [address] SP 20 Sep, 2013 SP [facility] [address] [id number] [address] [place] [address], [place] [address] SP 20 Sep, 2013 SP [facility] [address] [id number] [address] [place] [address], [place] [address] SP 18 Sep, 2013 SP [facility] [address] [id number] [address] [place] [address], [place] [address] SP 18 Sep, 2013 SP [facility] [address] [id number] [address] [place] [address], [place] [address] SP 12 Jan, 2013 SP [facility] [address] [id number] [address] [place] [address], [place] [address] SP 12 Jan, 2013 SP [facility] [address] [id number] [address] [place] [address], [place] [address] SP 12 Jan, 2013 SP [facility] [address] [id number] [address] [place] [address], [place] [address] SP 12 Jan, 2013 SP [facility] [address] [id number] [address] [place] [address], [place] [address] SP 11 Jan, 2013 SP [facility] [address] [id number] [address] [place] [address], [place] [address] SP 11 Jan, 2013 SP [facility] [address] [id number] [address] [place] [address], [place] [address] SP 10 Jan, 2013 SP [facility] [address] [id number] [address] [place] [address], [place] [address] SP 10 Jan, 2013 SP [facility] [address] [id number] [address] [place] [address], [place] [address] SP Oct, SP [facility] [address] [id number] [address] [place] [address], [place] [address] SP Oct, SP [facility] [address] [id number] [address] [place] [address], [place] [address] SP Oct, SP [facility] [address] [id number] [address] [place] [address], [place] [address] SP Oct, SP [facility] [address] [id number] [address] [place] [address], [place] [address] SP Jun, SP [facility] [address] [id number] [address] [place] [address], [place] [address] SP Jun, SP [facility] [address] [id number] [address] [place] [address], [place] [address] SP Jun, SP [facility] [address] [id number] [address] [place] [address], [place] [address] SP Jun, SP [facility] [address] [id number] [address] [place] [address], [place] [address] SP Apr, SP [facility] [address] [id number] [address] [place] [address], [place] [address] SP Apr, SP [facility] [address] [id number] [address] [place] [address], [place] [address] SP Feb, SP [facility] [address] [id number] [address] [place] [address], [place] [address] SP Feb, SP [facility] [address] [id number] [address] [place] [address], [place] [address] SP Dec, SP [facility] [address] [id number] [address] [place] [address], [place] [address] SP Dec, SP [facility] [address] [id number] [address] [place] [address], [place] [address] SP Nov, SP [facility] [address] [id number] [address] [place] [address], [place] [address] SP Nov, SP [facility] [address] [id number] [address] [place] [address], [place] [address] SP Nov, SP [facility] [address] [id number] [address] [place] [address], [place] [address] SP Oct, SP [facility] [address] [id number] [address] [place] [address], [place] [address] SP September, SP [facility] [address] [id number] [address] [place] [address], [place] [address] SP September, SP [facility] [address] [id number] [address] [place] [address], [place] [address] SP Aug, SP [facility] [address] [id number] [address] [place] [address], [place] [address] SP Aug, SP [facility] [address] [id number] [address] [place] [address], [place] [address] SP Aug, SP [facility] [address] [id number] [address] [place] [address], [place] [address] SP Aug, SP [facility] [address] [id number] [address] [place] [address], [place] [address] SP Aug, SP [facility] [address] [id number] [address] [place] [address], [place] [address] SP Aug, SP [facility] [address] [id number] [address] [place] [address], [place] [address] SP Jul, SP [facility] [address] [id number] [address] [place] [address], [place] [address] SP Jul, SP [facility] [address] [id number] [address] [place] [address], [place] [address] SP Jul, SP [facility] [address] [id number] [address] [place] [address], [place] [address] SP 15 Jul, 2012 SP [facility] [address] [id number] [address] [place] [address], [place] [address] SP Jul, SP [facility] [address] [id number] [address] [place] [address], [place] [address] SP Jul, SP [facility] [address] [id number] [address] [place] [address], [place] [address] SP Jun, SP [facility] [address] [id number] [address] [place] [address], [place] [address] SP Jun, SP [facility] [address] [id number] [address] [place] [address], [place] [address] SP May, SP [facility] [address] [id number] [address] [place] [address], [place] [address] SP May, SP [facility] [address] [id number] [address] [place] [address], [place] [address] SP Apr, SP [facility] [address] [id number] [address] [place] [address], [place] [address] SP Apr, SP [facility] [address] [id number] [address] [place] [address], [place] [address] SP Apr, SP [facility] [address] [id number] [address] [place] [address], [place] [address] SP Apr, SP [facility] [address] [id number] [address] [place] [address], [place] [address] SP Apr, SP [facility] [address] [id number] [address] [place] [address], [place] [address] SP Mar, SP [facility] [address] [id number] [address] [place] [address], [place] [address] SP Mar, SP [facility] [address] [id number] [address] [place] [address], [place] [address] SP Mar, SP [facility] [address] [id number] [address] [place] [address], [place] [address] SP Mar, SP [facility] [address] [id number] [address] [place] [address], [place] [address] SP Mar, SP [facility] [address] [id number] [address] [place] [address], [place] [address] SP Mar, SP [facility] [address] [id number] [address] [place] [address], [place] [address] SP Mar, SP [facility] [address] [id number] [address] [place] [address], [place] [address] SP Feb, SP [facility] [address] [id number] [address] [place] [address], [place] [address] SP Feb, SP [facility] [address] [id number] [address] [place] [address], [place] [address] SP Feb, SP [facility] [address] [id number] [address] [place] [address], [place] [address] SP Feb, SP [facility] [address] [id number] [address] [place] [address], [place] [address] SP Dec, SP [facility] [address] [id number] [address] [place] [address], [place] [address] SP Nov, SP [facility] [address] [id number] [address] [place] [address], [place] [address] SP Nov, SP [facility] [address] [id number] [address] [place] [address], [place] [address] SP Oct, SP [facility] [address] [id number] [address] [place] [address], [place] [address] SP Oct, SP [facility] [address] [id number] [address] [place] [address], [place] [address] SP Oct, SP [facility] [address] [id number] [address] [place] [address], [place] [address] SP Oct, SP [facility] [address] [id number] [address] [place] [address], [place] [address] SP Oct, SP [facility] [address] [id number] [address] [place] [address], [place] [address] SP Oct, SP [facility] [address] [id number] [address] [place] [address], [place] [address] SP Oct, SP [facility] [address] [id number] [address] [place] [address], [place] [address] SP Aug, SP [facility] [address] [id number] [address] [place] [address], [place] [address] SP Jul, SP [facility] [address] [id number] [address] [place] [address], [place] [address] SP Jul, SP [facility] [address] [id number] [address] [place] [address], [place] [address] SP Jul, SP [facility] [address] [id number] [address] [place] [address], [place] [address] SP Jul, SP [facility] [address] [id number] [address] [place] [address], [place] [address] SP Jul, SP [facility] [address] [id number] [address] [place] [address], [place] [address] SP Jul, SP [facility] [address] [id number] [address] [place] [address], [place] [address] SP Jul, SP [facility] [address] [id number] [address] [place] [address], [place] [address] SP Jun, SP [facility] [address] [id number] [address] [place] [address], [place] [address] SP May, SP [facility] [address] [id number] [address] [place] [address], [place] [address] SP May, SP [facility] [address] [id number] [address] [place] [address], [place] [address] SP May, SP [facility] [address] [id number] [address] [place] [address], [place] [address] SP Apr, SP [facility] [address] [id number] [address] [place] [address], [place] [address] SP Apr, SP [facility] [address] [id number] [address] [place] [address], [place] [address] SP Apr, SP [facility] [address] [id number] [address] [place] [address], [place] [address] SP Apr, SP [facility] [address] [id number] [address] [place] [address], [place] [address] SP Apr, SP [facility] [address] [id number] [address] [place] [address], [place] [address] SP Apr, SP [facility] [address] [id number] [address] [place] [address], [place] [address] SP Mar, SP [facility] [address] [id number] [address] [place] [address], [place] [address] SP Mar, SP [facility] [address] [id number] [address] [place] [address], [place] [address] SP Mar, SP [facility] [address] [id number] [address] [place] [address], [place] [address] SP Mar, SP [facility] [address] [id number] [address] [place] [address], [place] [address] SP Mar, SP [facility] [address] [id number] [address] [place] [address], [place] [address] SP Mar, SP [facility] [address] [id number] [address] [place] [address], [place] [address] SP Mar, SP [facility] [address] [id number] [address] [place] [address], [place] [address] SP Dec, SP [facility] [address] [id number] [address] [place] [address], [place] [address] SP Aug, SP [facility] [address] [id number] [address] [place] [address], [place] [address] SP Apr, SP [facility] [address] [id number] [address] [place] [address], [place] [address] SP Mar, SP [facility] [address] [id number] [address] [place] [address] SP Mar, SP [facility] [address] [id number] [address] [place] [address] SP Mar, SP [facility] [address] [facility] [id number] [address] [place] [address] SP Mar, SP [facility] [address] [id number] [address] [place] [address] SP September, SP [facility] [address] [facility] [id number] [address] [place] [address] SP Mar, SP [facility] [address] [facility] [id number] [address] [place] [address] SP Feb, SP [facility] [address] [facility] [id number] [address] [place] [address] SP Oct, SP [facility] [address] [facility] [id number] [address] [place] [address] SP September, SP [facility] [address] [facility] [id number] [address] [place] [address] SP Apr, SP [facility] [address] [facility] [id number] [address] [place] [address] SP Mar, SP IMMUNIZATIONS No Known Immunizations [...]
--- OUTSIDE RECORDS SUMMARY | 2019-04-01 02:21 | XMS REPORT ---
Author Author Migration, Doctor POS Organization [facility] Namely SP Address Unknown SP Phone Unavailable SP Care Team Providers Care Statement Processor Name Role Phone POS Migration, Doctor Unavailable Unavailable SP PROBLEMS Type Condition ICD9-CM Code [id number] Code Onset Dates Condition S tatus SNOMED POS Problem Peripheral vascular disease I73.9 Ac tive [id number] POS Problem Urinary, incontinence, stress female N39.3 Active [id number] SP Problem Chronic kidney disease, unspecified N18.9 Active 146494107 SP Problem Dysphagia, unspecified R13.10 Active 77293822 SP Problem Anemia of chronic disease D63.8 Acti ve 230693396 SP Problem Cervicalgia M54.2 Active [id number] 74825 SP Problem Essential hypertension I10 Active 62574644 SP Problem 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 787690859 SP Problem Abdominal aortic aneurysm (AAA) without rupture I7 1.4 Active SP Problem Seasonal allergic rhinitis, unspecified allergic rhinitis trigger SP Active 798466190 SP Problem Prediabetes R73.03 Active 33778607 2 SP Problem Mixed hyperlipidemia E78.2 Active 946436314 SP Problem Stenosis of right renal artery I70.1 Active [id number] SP Problem Chronic obstructive pulmonary disease, unspecified COPD ty pe J44.9 SP 51683904 SP Problem Gastroesophageal reflux disease without esophagitis K21.9 Active SP Problem Hepatic steatosis K76.0 Active 19 4643929 SP Problem Renal artery stenosis I70.1 Active 993059272 SP Problem PVD (peripheral vascular disease) I73.9 Active 378698267 SP Problem Arthritis of knee M17.10 Active 37 1524283 SP Problem Other chronic pain G89.29 Active 8 3939369 SP ALLERGIES Substance Reaction Event Type Date Status POS Tekturna 150 Mg Tablet MEDICATION TAKEN OFF THE MARKET..lg Non D rug Allergy 14 2014 Active SP Nsaids (non-steroidal Anti-inflammatory Drug) Unknown No n Drug Allergy Aug, SP Active SP Iodinated Contrast Media - Iv Dye Unknown Non Drug Allergy 14 Aug, 2015 Active SP Macrobid Unknown Drug Allergy Aug, Active SP Bactrim Unknown Drug Allergy Aug, Active SP ENCOUNTERS Encounter Location Date Diagnosis POS [facility] [address] SP Oct, Cellulitis of right upper ex tremity L03.113 and Morbid obesity SP [facility] [address] [place] [address] September, Dysuria R30.0 SP Right forearm cellulitis L03.113 [place] [address] [address] SP Jul, Contact dermatitis and other eczema, due to unspecified cause SP ; Morbid obesity E66.01 ; Essential hypertension I10 ; Chronic obstructive pulmonary disease, unspecified COPD type J44.9 ; Chronic kidney disease, unspecified N18.9 and Mixed hyperlipidemia E78.2 [facility] [address] SP Jul, Skin infection L08.9 and Mor bid obesity E66.01 SP [facility] [place] [address] SP Jun, Cellulitis of right arm L03. 113 and BMI 45.0-49.9, adult Z68.42 SP [place] [address] [address] [place] [id number] [place] [address] SP May, SP [place] [address] [address] SP May, Chronic obstructive pulmonar y disease, unspecified COPD type SP ; Viral upper respiratory tract infection J06.9 and BMI 45.0-49.9, adult Z68.42 [place] [address] [address] SP Mar, BMI 45.0-49.9, adult Z68.42 ; Chronic urticaria L50.8 and Skin SP L08.9 [place] [address] [address] [place] [id number] [place] [address] SP Mar, Dermatitis L30.9 and BMI 45. 0-49.9, adult Z68.42 SP [place] [address] [address] SP Feb, Cellulitis of right upper ex tremity L03.113 and BMI 45.0-49.9, SP Z68.42 [place] [address] [address] SP Feb, Cellulitis of right arm L03. 113 and Status post cardiac SP Z98.890 [place] [address] [address] SP Feb, SP [place] [address] [address] SP Feb, Chronic obstructive pulmonar y disease, unspecified COPD type SP ; Essential hypertension I10 ; Encounter for immunization Z23 ; Mixed hyperlipidemia E78.2 and BMI 45.0-49.9, adult Z68.42 [place] [address] [address] SP Feb, Dysuria R30.0 ; Acute cystit is without hematuria N30.00 and BMI SP49.9, adult Z68.42 [place] [address] [address] SP Dec, SP [place] [address] [address] SP Dec, Essential hypertension I10 ; Chronic kidney disease, unspecified SP ; Mixed hyperlipidemia E78.2 ; Tinea corporis B35.4 ; Right hip pain M25.551 and Acute pain of right knee M25.561 [place] [address] [address] SP Dec, Herpes zoster without compli cation B02.9 ; Dandruff L21.0 ; SP unspecified type R19.7 and BMI 45.0-49.9, adult Z68.42 [place] [address] [address] SP September, Chronic kidney disease, unsp ecified N18.9 ; Essential SP I10 ; Mixed hyperlipidemia E78.2 and BMI 45.0-49.9, adult Z68.42 [place] [address] [address] SP September, SP [place] [address] [address] SP September, Essential hypertension I10 ; Chronic kidney disease, unspecified SP ; Prediabetes R73.03 ; Low back pain M54.5 ; Other chronic pain G89.29 ; Arthritis of knee M17.10 ; Pure hyperglyceridemia E78.1 ; Anemia of chronic disease D63.8 and BMI 45.0-49.9, adult Z68.42 [place] [address] [address] SP Aug, SP [place] [address] [address] SP Jul, Abdominal aortic aneurysm (A AA) without rupture I71.4 ; PVD SP vascular disease) I73.9 ; Renal artery stenosis I70.1 and Essential hypertension I10 [place] [address] [address] [place] [id number] [place] [address] SP May, Essential hypertension I10 ; Pure hyperglyceridemia E78.1 ; SP aortic aneurysm (AAA) without rupture I71.4 ; Chronic kidney disease, unspecified N18.9 ; Gastroesophageal reflux disease without esophagitis K21.9 ; 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 ; Stenosis of right renal artery I70.1 ; Anemia of chronic disease D63.8 and Prediabetes R73.03 [place] [address] [address] [place] [id number] [place] [address] SP May, Tinea corporis B35.4 and Vir al URI J06.9 SP [place] [address] [place] [id number] [place] [address] SP May, [facility] [address] [facility] [id number] [address] [place] [address] SP Apr, [facility] [address] [facility] [id number] [address] [place] [address] SP Apr, Cervical radiculopathy M54.1 2 SP [facility] [address] [facility] [id number] [address] [place] [address] SP Apr, Flank pain R10.9 and Acute p yelonephritis N10 SP [facility] [address] [facility] [id number] [address] [place] [address] SP Apr, [facility] [address] [facility] [id number] [address] [place] [address] SP Mar, [facility] [address] [place] [id number] [place] [address] SP Feb, Pain of right shoulder regio n M25.511 [facility] [address] [place] [id number] [place] [address] SP Feb, History of glaucoma Z86.69 ; Vision changes H53.9 ; Abdominal SP aneurysm (AAA) without rupture I71.4 ; Xerosis of skin L85.3 and Pain in right shoulder M25.511 [place] [id number] [place] [address] SP Feb, [facility] [address] [facility] [id number] [address] [place] [address] SP Jan, Essential hypertension I10 ; Pure hyperglyceridemia E78.1 ; SP kidney disease, unspecified N18.9 ; Gastroesophageal reflux disease without esophagitis K21.9 ; 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 ; Stenosis of right renal artery I70.1 ; Anemia of chronic disease D63.8 ; Prediabetes R73.03 ; Pain of right shoulder region M25.511 and Homeless Z59.0 [place] [address] [place] [id number] [place] [address] SP Jan, Neck pain M54.2 and Seasonal allergic rhinitis, unspecified SP rhinitis trigger J30.2 [place] [address] [place] [address] SP Dec, SP [place] [address] [place] [id number] [place] [address] SP Dec, SP [place] [address] [address] SP Dec, Blood glucose abnormal R73.0 9 [...] H. pylori infection A04.8 and Prediabetes R73.03 [facility] [address] [place] [id number] [place] [address] SP Oct, Seasonal allergic rhinitis, unspecified allergic rhinitis SP J30.2 [place] [address] [place] [id number] [place] [address] SP September, Eustachian tube dysfunction, left H69.82 and Candidiasis of SP B37.89 [place] [address] [place] [id number] [place] [address] SP Jul, Blood glucose abnormal R73.0 9 ; Essential hypertension I10 ; Pure SPhyperglyceridemia E78.1 ; Chronic kidney disease, unspecified N18.9 ; Gastroesophageal reflux disease without esophagitis K21.9 ; 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 ; Abdominal aortic aneurysm (AAA) without rupture I71.4 ; Stenosis of right renal artery I70.1 ; Anemia of chronic disease D63.8 and Acute non-recurrent maxillary sinusitis J01.00 [place] [address] [place] [id number] [place] [address] SP Jun, Acute non-recurrent maxillar y sinusitis J01.00 ; Acute mucoid SP media of left ear H65.112 ; Nausea R11.0 and Fever and chills R50.9 [place] [address] [place] [id number] [place] [address] SP May, Acute right flank pain R10.9 SP [place] [address] [place] [id number] [place] [address] SP Apr, Acute nasopharyngitis J00 ; Pure hyperglyceridemia E78.1 and SP kidney disease, unspecified N18.9 [place] [address] [place] [id number] [place] [address] SP Apr, SP [place] [address] [address] SP Apr, Blood glucose abnormal R73.0 9 ; Essential hypertension I10 ; Pure SPhyperglyceridemia E78.1 ; Chronic kidney disease, unspecified N18.9 ; Gastroesophageal reflux disease without esophagitis K21.9 ; 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 ; Abdominal aortic aneurysm (AAA) without rupture I71.4 ; Stenosis of right renal artery I70.1 ; RUQ pain R10.11 and Anemia of chronic disease D63.8 [place] [address] [place] [id number] [place] [address] SP Mar, Blood glucose abnormal R73.0 9 SP [place] [address] [place] [id number] [place] [address] SP Mar, Cellulitis of right lower le g L03.115 SP [facility] [address] [place] [id number] [place] [address] SP Feb, SP [place] [address] [place] [id number] [place] [address] SP Feb, Dysuria R30.0 and Upper resp iratory tract infection, unspecified SP J06.9 [place] [address] [place] [id number] [place] [address] SP Jan, SP [place] [address] [place] [id number] [place] [address] SP Jan, SP [place] [address] [facility] [id number] [address] [place] [address] SP Dec, SP [place] [address] [address] SP Dec, Anemia of chronic disease D6 3.8 ; Essential hypertension I10 ; SP hyperglyceridemia E78.1 ; Chronic kidney disease, unspecified N18.9 ; Gastroesophageal reflux disease without esophagitis K21.9 ; 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 and Pain in right knee M25.561 [place] [address] [place] [id number] [place] [address] SP Dec, Left shoulder strain, subseq uent encounter S46.912D ; Urinary SP R35.0 ; Lung nodule, solitary R91.1 ; Essential hypertension I10 and Acute cystitis without hematuria N30.00 [place] [address] [place] [address] SP Nov, Left-sided chest wall pain R 07.89 and Abnormal chest xray R93.8 SP [place] [address] [place] [id number] [place] [address] SP Nov, Pain of right lower extremit y M79.604 ; Swelling of right lower SP M79.89 ; Diarrhea, unspecified R19.7 ; Nausea with vomiting, unspecified R11.2 ; Left-sided chest wall pain R07.89 ; Chronic kidney disease, unspecified N18.9 ; Gastroesophageal reflux disease without esophagitis K21.9 and Other seasonal allergic rhinitis J30.2 [place] [address] [place] [id number] [place] [address] SP September, Essential hypertension I10 ; Chronic kidney disease, unspecified SP ; Anemia of chronic disease D63.8 ; Pure hyperglyceridemia E78.1 ; Peripheral vascular disease I73.9 ; Abnormal glucose R73.09 ; 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 ; Gastroesophageal reflux disease without esophagitis K21.9 ; Allergic rhinitis J30.9 and Rash R21 [place] [address] [address] SP Aug, Abdominal pain R10.9 and Con stipation K59.00 SP [place] [address] [address] SP Jul, Injury of toe on right foot S99.921A SP [place] [address] [address] SP Jul, SP [place] [address] [address] SP Jul, Essential hypertension I10 ; Chronic kidney disease, unspecified SP ; Anemia of chronic disease D63.8 ; Pure hyperglyceridemia E78.1 ; Peripheral vascular disease I73.9 ; Abnormal glucose R73.09 ; 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 ; Gastroesophageal reflux disease without esophagitis K21.9 and Allergic rhinitis J30.9 [place] [address] [address] SP Jun, Low back pain M54.5 SP [place] [address] [address] SP Jun, SP [place] [address] [address] SP May, URI (upper respiratory infec tion) J06.9 SP [place] [address] [place] [id number] [place] [address] SP Apr, Essential hypertension I10 SP [place] [address] [place] [id number] [place] [address] SP Apr, Essential hypertension I10 ; Chronic kidney disease, unspecified SP ; Anemia of chronic disease D63.8 ; Pure hyperglyceridemia E78.1 ; Peripheral vascular disease I73.9 ; Abnormal glucose R73.09 ; URI (upper respiratory infection) J06.9 ; 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 ; Gastroesophageal reflux disease without esophagitis K21.9 and Cough R05 [place] [address] [address] SP Mar, Flank pain R10.9 and URI (up per respiratory infection) J06.9 SP [place] [address] [address] SP Mar, Right-sided low back pain wi thout sciatica M54.5 and Hematuria, SP R31.9 [place] [address] [address] SP Mar, Hypopigmentation L81.9 and H yperpigmentation L81.9 SP [place] [address] [address] SP Mar, SP [place] [address] [address] SP Mar, Acute cystitis with hematuri a N30.01 SP [place] [address] [address] SP Mar, SP [place] [address] [address] SP Feb, Furuncle L02.92 ; Hypopigmen tation L81.9 ; Hyperpigmentation SP ; Urinary frequency R35.0 ; Screening for malignant neoplasm of cervix Z12.4 ; Vaginal discharge N89.8 ; Urinary, incontinence, stress female N39.3 and Vaginal irritation N89.8 [place] [address] [address] SP Jan, Muscle spasm 728.85 ; Unspec ified peripheral vascular disease SP ; Benign essential hypertension 401.1 ; Chronic renal insufficiency 585.9 ; Chronic constipation 564.00 ; GERD (gastroesophageal reflux disease) 530.81 ; Hyperlipidemia 272.4 and Chronic leg pain 729.5 [place] [address] [address] SP Jan, Sinusitis 473.9 SP [place] [address] [place] [id number] [place] [address] SP Dec, SP [place] [address] [address] SP Dec, Acute bronchitis 466.0 SP [place] [address] [place] [id number] [place] [address] SP Dec, Acute bronchitis 466.0 SP [place] [address] [address] SP Dec, Unspecified episodic mood di sorder 296.90 SP [place] [address] [address] SP Dec, Visit for suture removal V58 .32 SP [place] [address] [address] SP Nov, Allergic rhinitis 477.9 and Onychomycosis 110.1 SP [place] [address] [address] SP Oct, Muscle spasm 728.85 ; Benign essential hypertension 401.1 ; SP renal insufficiency 585.9 ; Chronic constipation 564.00 ; GERD (gastroesophageal reflux disease) 530.81 and Hyperlipidemia 272.4 [place] [address] [place] [id number] [place] [address] SP Oct, Otalgia of left ear 388.70 SP [place] [address] [place] [id number] [place] [address] SP Oct, Unspecified episodic mood di sorder 296.90 SP [place] [address] [address] SP September, Unspecified episodic mood di sorder 296.90 SP [facility] [address] [id number] [address] [place] [address] SP September, Unspecified episodic mood di sorder 296.90 SP [facility] [address] [id number] [place] [address] SP September, Urinary frequency 788.41 and Constipation 564.00 SP [facility] [address] [id number] [address] [place] [address] SP Aug, SP [facility] [address] [id number] [address] [place] [phone] SP Aug, SP [facility] [address] [id number] [address] [place] [address] SP Jul, SP [facility] [address] [id number] [address] [place] [address] SP Jul, SP [facility] [address] [facility] [id number] [address] [place] [address] SP Jul, SP [facility] [address] [id number] [address] [place] [address] SP Jul, SP [facility] [address] [id number] [address] [place] [address] SP Jul, SP [facility] [address] [id number] [address] [place] [address] SP Jul, SP [facility] [address] [id number] [address] [place] [address] SP Jul, SP [facility] [address] [facility] [id number] [address] [place] [address] SP Jul, SP [facility] [address] [facility] [id number] [address] [place] [address] SP Jul, SP [facility] [address] [facility] [id number] [address] [place] [address] SP Jul, SP [facility] [address] [id number] [address] [place] [address], [place] [address] SP Jun, SP [facility] [address] [id number] [address] [place] [address], [place] [address] SP Jun, SP [facility] [address] [id number] [address] [place] [address], [place] [address] SP May, SP [facility] [address] [id number] [address] [place] [address], [place] [address] SP May, SP [facility] [address] [id number] [address] [place] [address], [place] [address] SP May, SP [facility] [address] [id number] [address] [place] [address], [place] [address] SP May, SP [facility] [address] [id number] [address] [place] [address], [place] [address] SP May, SP [facility] [address] [id number] [address] [place] [address], [place] [address] SP May, SP [facility] [address] [id number] [address] [place] [address], [place] [address] SP May, SP [facility] [address] [id number] [address] [place] [address], [place] [address] SP May, SP [facility] [address] [id number] [address] [place] [address], [place] [address] SP May, SP [facility] [address] [id number] [address] [place] [address], [place] [address] SP May, SP [facility] [address] [id number] [address] [place] [address], [place] [address] SP May, SP [facility] [address] [id number] [address] [place] [address], [place] [address] SP May, SP [facility] [address] [id number] [address] [place] [address], [place] [address] SP May, SP [facility] [address] [id number] [address] [place] [address], [place] [address] SP Feb, 2013 SP [facility] [address] [id number] [address] [place] [address], [place] [address] SP Feb, 2013 SP [facility] [address] [id number] [address] [place] [address], [place] [address] SP 20 Jan, 2013 SP [facility] [address] [id number] [address] [place] [address], [place] [address] SP 20 Jan, 2013 SP [facility] [address] [id number] [address] [place] [address], [place] [address] SP 18 Jan, 2013 SP [facility] [address] [id number] [address] [place] [address], [place] [address] SP 18 Jan, 2013 SP [facility] [address] [id number] [address] [place] [address], [place] [address] SP 12 Jan, 2013 SP [facility] [address] [id number] [address] [place] [address], [place] [address] SP 12 Jan, 2013 SP [facility] [address] [id number] [address] [place] [address], [place] [address] SP 12 Jan, 2013 SP [facility] [address] [id number] [address] [place] [address], [place] [address] SP 12 Jan, 2013 SP [facility] [address] [id number] [address] [place] [address], [place] [address] SP 11 Jan, 2013 SP [facility] [address] [id number] [address] [place] [address], [place] [address] SP 11 Jan, 2013 SP [facility] [address] [id number] [address] [place] [address], [place] [address] SP 10 Jan, 2013 SP [facility] [address] [id number] [address] [place] [address], [place] [address] SP 10 Jan, 2013 SP [facility] [address] [id number] [address] [place] [address], [place] [address] SP Oct, SP [facility] [address] [id number] [address] [place] [address], [place] [address] SP Oct, SP [facility] [address] [id number] [address] [place] [address], [place] [address] SP Oct, SP [facility] [address] [id number] [address] [place] [address], [place] [address] SP Oct, SP [facility] [address] [id number] [address] [place] [address], [place] [address] SP Jun, SP [facility] [address] [id number] [address] [place] [address], [place] [address] SP Jun, SP [facility] [address] [facility] [id number] [address] [place] [address], [place] [address] SP Jun, SP [facility] [address] [id number] [address] [place] [id number] SP Jun, SP [facility] [address] [id number] [address] [place] [address], [place] [address] SP Apr, SP [facility] [facility] [address] [id number] [address] [place] [phone] SP Apr, SP [facility] [address] [id number] [address] [place] [address] SP Feb, SP [facility] [address] [id number] [address] [place] [address] SP Feb, SP [facility] [address] [id number] [address] [place] [address] SP Dec, SP [facility] [address] [id number] [address] [place] [phone] SP Dec, SP [facility] [address] [facility] [id number] [address] [place] [address] SP Nov, SP [facility] [address] [id number] [address] [place] [address], [place] [address] SP Nov, SP [facility] [address] [id number] [address] [place] [address], [place] [address] SP Nov, SP [facility] [address] [id number] [address] [place] [address], [place] [address] SP Oct, SP [facility] [address] [id number] [address] [place] [address], [place] [address] SP September, SP [facility] [address] [id number] [address] [place] [address], [place] [address] SP September, SP [facility] [address] [id number] [address] [place] [address], [place] [address] SP Aug, SP [facility] [address] [id number] [address] [place] [address], [place] [address] SP Aug, SP [facility] [address] [id number] [address] [place] [address], [place] [address] SP Aug, SP [facility] [address] [id number] [address] [place] [address], [place] [address] SP Aug, SP [facility] [address] [id number] [address] [place] [address], [place] [address] SP Aug, SP [facility] [address] [id number] [address] [place] [address], [place] [address] SP Aug, SP [facility] [address] [id number] [address] [place] [address], [place] [address] SP Jul, SP [facility] [address] [id number] [address] [place] [address], [place] [address] SP Jul, SP [facility] [address] [id number] [address] [place] [address], [place] [address] SP Jul, SP [facility] [address] [id number] [address] [place] [address], [place] [address] SP 15 Jul, 2012 SP [facility] [address] [id number] [address] [place] [address], [place] [address] SP 11 Jul, 2012 SP [facility] [address] [id number] [address] [place] [address], [place] [address] SP 07 Jul, 2012 SP [facility] [address] [id number] [address] [place] [address], [place] [address] SP Jun, SP [facility] [address] [id number] [address] [place] [address], [place] [address] SP Jun, SP [facility] [address] [id number] [address] [place] [address], [place] [address] SP May, SP [facility] [address] [id number] [address] [place] [address], [place] [address] SP May, SP [facility] [address] [id number] [address] [place] [address], [place] [address] SP Apr, SP [facility] [address] [id number] [address] [place] [address], [place] [address] SP Apr, SP [facility] [address] [id number] [address] [place] [address], [place] [address] SP Apr, SP [facility] [address] [id number] [address] [place] [address], [place] [address] SP Apr, SP [facility] [address] [id number] [address] [place] [address], [place] [address] SP Apr, SP [facility] [address] [id number] [address] [place] [address], [place] [address] SP Mar, SP [facility] [address] [id number] [address] [place] [address], [place] [address] SP Mar, SP [facility] [address] [id number] [address] [place] [address], [place] [address] SP Mar, SP [facility] [address] [id number] [address] [place] [address], [place] [address] SP Mar, SP [facility] [address] [id number] [address] [place] [address], [place] [address] SP Mar, SP [facility] [address] [id number] [address] [place] [address], [place] [address] SP Mar, SP [facility] [address] [id number] [address] [place] [address], [place] [address] SP Mar, SP [facility] [address] [id number] [address] [place] [address], [place] [address] SP Feb, SP [facility] [address] [id number] [address] [place] [address], [place] [address] SP Feb, SP [facility] [address] [id number] [address] [place] [address], [place] [address] SP Feb, SP [facility] [address] [id number] [address] [place] [address], [place] [address] SP Feb, SP [facility] [address] [id number] [address] [place] [address], [place] [address] SP Dec, SP [facility] [address] [id number] [address] [place] [address], [place] [address] SP Nov, SP [facility] [address] [id number] [address] [place] [address], [place] [address] SP Nov, SP [facility] [address] [id number] [address] [place] [address], [place] [address] SP Oct, SP [facility] [address] [id number] [address] [place] [address], [place] [address] SP Oct, SP [facility] [address] [id number] [address] [place] [address], [place] [address] SP Oct, SP [facility] [address] [id number] [address] [place] [address], [place] [address] SP Oct, SP [facility] [address] [id number] [address] [place] [address], [place] [address] SP Oct, SP [facility] [address] [id number] [address] [place] [address], [place] [address] SP Oct, SP [facility] [address] [id number] [address] [place] [address], [place] [address] SP Oct, SP [facility] [address] [id number] [address] [place] [address], [place] [address] SP Aug, SP [facility] [address] [id number] [address] [place] [address], [place] [address] SP Jul, SP [facility] [address] [id number] [address] [place] [address], [place] [address] SP Jul, SP [facility] [address] [id number] [address] [place] [address], [place] [address] SP Jul, SP [facility] [address] [id number] [address] [place] [address], [place] [address] SP Jul, SP [facility] [address] [id number] [address] [place] [address], [place] [address] SP Jul, SP [facility] [address] [id number] [address] [place] [address], [place] [address] SP Jul, SP [facility] [address] [id number] [address] [place] [address], [place] [address] SP Jul, SP [facility] [address] [id number] [address] [place] [address], [place] [address] SP Jun, SP [facility] [address] [id number] [address] [place] [address], [place] [address] SP May, SP [facility] [address] [id number] [address] [place] [address], [place] [address] SP May, SP [facility] [address] [id number] [address] [place] [address], [place] [address] SP May, SP [facility] [address] [id number] [address] [place] [address], [place] [address] SP Apr, SP [facility] [address] [id number] [address] [place] [address], [place] [address] SP Apr, SP [facility] [address] [id number] [address] [place] [address], [place] [address] SP Apr, SP [facility] [address] [id number] [address] [place] [address], [place] [address] SP Apr, SP [facility] [address] [id number] [address] [place] [address], [place] [address] SP Apr, SP [facility] [address] [id number] [address] [place] [address], [place] [address] SP Apr, SP [facility] [address] [id number] [address] [place] [address], [place] [address] SP Mar, SP [facility] [address] [id number] [address] [place] [address], [place] [address] SP Mar, SP [facility] [address] [id number] [address] [place] [address], [place] [address] SP Mar, SP [facility] [address] [id number] [address] [place] [address], [place] [address] SP Mar, SP [facility] [address] [id number] [address] [place] [address], [place] [address] SP Mar, SP [facility] [address] [id number] [address] [place] [address], [place] [address] SP Mar, SP [facility] [address] [id number] [address] [place] [address], [place] [address] SP Mar, SP [facility] [address] [id number] [address] [place] [address], [place] [address] SP Dec, SP [facility] [address] [id number] [address] [place] [address] SP Aug, SP [facility] [place] [address] [id number] [address] [place] [address] SP Apr, SP [facility] [address] [id number] [address] [place] [address] SP Mar, SP [facility] [address] [id number] [address] [place] [address] SP Mar, SP [facility] [place] [address] [id number] [address] [place] [address] SP Mar, SP [facility] [place] [address] [facility] [id number] [address] [place] [address] SP Mar, SP [facility] [place] [address] [facility] [id number] [address] [place] [address] SP September, SP [facility] [place] [address] [id number] [address] [place] [address] SP Mar, SP [facility] [place] [address] [id number] [address] [place] [address] SP Feb, SP [facility] [place] [address] [facility] [id number] [address] [place] [address] SP Oct, SP [facility] [place] [address] [id number] [address] [place] [address] SP September, SP [facility] [place] [address] [id number] [address] [place] [address] SP Apr, SP [facility] [place] [address] [id number] [address] [place] [address] SP Mar, SP IMMUNIZATIONS No Known Immunizations SOCIAL HISTORY Never Assessed REASON FOR VISIT EMR-[facility] [place] PLAN OF CARE VITAL SIGNS MEDICATIONS Medication Instructions Dosage Frequency Start Date End Date Duration S tatus POS Nexium 40 mg 1 capsule by Oral route 1 time per day 27 M ar, 2015 Active SP Flonase 50 mcg/actuation take 1 sprays b y Nasal route 2 times per dayin each SP Mar, Active SP Simvastatin 20 mg 1 tablet by Oral route 1 time per day Jul, SP Clindamycin HCl 300 mg 1 Capsule by Oral route 3 times per day for 10 days SP Jun, 2013 Active SP Cipro 500 mg 1 tablet by Oral route every 12 hours for 10 day(s) May, Active SP Ofloxacin 0.3 % 3 drop by Otic route 2 times per day f or 10 day(s) Nov, Active SP Amoxicillin 500 mg 2 capsule by Oral route 2 times per day for 10 day(s) 2011 Active SP Colace 100 mg 1 capsule by Oral route 2 times per day PRN Jul, SP Clindamycin HCl 150 mg take 1 capsule by Oral route 4 times per day for 7 days SPvoucher if possible Nov, Active SP Neurontin 100 mg 1 capsule by Oral route 3 times per day Jul, SP Vitamin C 500 mg 1 tablet by Oral route 1 time per day 2 May, SP Proventil HFA 90 mcg/actuation 2 puffs b y Inhalation route 4 times per day PRN SP May, Active SP Augmentin 875-125 mg 1 tablet by Oral route 2 times pe r day for 10 day(s) 20 2013 Active SP Advair Diskus 250 mcg-50 mcg 1 puffs by Inhalation rou te 2 times per day 24 2013 Active SP Norvasc 10 mg 1 tablet by Oral route 1 time per day 27 2014 Active SP RESULTS No Results PROCEDURES No Known procedures [...]
--- OUTSIDE RECORDS SUMMARY | 2019-04-01 02:21 | XMS REPORT ---
Author Author NEERAJ Isbell POS Organization [facility] [employer] SP Address [address] [place] [address] SP Care Team Providers Care Rn Procedures Name Role Phone POS NEERAJ Isbell Unavailable SP PROBLEMS Type Condition ICD9-CM Code IUI77-WZ Code Onset Dates Condition S tatus SNOMED POS Problem Peripheral vascular disease I73.9 Ac tive [id number] POS Problem Urinary, incontinence, stress female N39.3 Active 96846054 SP Problem Chronic kidney disease, unspecified N18.9 Active 754949935 SP Problem Dysphagia, unspecified R13.10 Active 48587259 SP Problem Anemia of chronic disease D63.8 Acti ve 805427502 SP Problem Cervicalgia M54.2 Active 13439304 79595 SP Problem Essential hypertension I10 Active 81997770 SP Problem 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 506202486 SP Problem Abdominal aortic aneurysm (AAA) without rupture I7 1.4 Active SP Problem Seasonal allergic rhinitis, unspecified allergic rhinitis trigger SP Active 649386595 SP Problem Prediabetes R73.03 Active 98489737 2 SP Problem Mixed hyperlipidemia E78.2 Active 853354714 SP Problem Stenosis of right renal artery I70.1 Active [id number] SP Problem Chronic obstructive pulmonary disease, unspecified COPD ty pe J44.9 SP 35864733 SP Problem Gastroesophageal reflux disease without esophagitis K21.9 Active SP Problem Hepatic steatosis K76.0 Active 19 0416991 SP Problem Renal artery stenosis I70.1 Active 964408808 SP Problem PVD (peripheral vascular disease) I73.9 Active 503630205 SP Problem Arthritis of knee M17.10 Active 37 2737781 SP Problem Other chronic pain G89.29 Active 8 5697532 SP ALLERGIES No Information ENCOUNTERS Encounter Location Date Diagnosis POS [facility] [address] [facility] [id number] [address] [place] [address] SP Oct, Cellulitis of right upper ex tremity L03.113 and Morbid obesity SP [facility] [address] [place] [address] September, Dysuria R30.0 SP Right forearm cellulitis L03.113 [place] [address] [place] [id number] [place] [phone] SP Jul, Contact dermatitis and other eczema, due to unspecified cause SP ; Morbid obesity E66.01 ; Essential hypertension I10 ; Chronic obstructive pulmonary disease, unspecified COPD type J44.9 ; Chronic kidney disease, unspecified N18.9 and Mixed hyperlipidemia E78.2 [facility] [place] [address] SP Jul, Skin infection L08.9 and Mor bid obesity E66.01 SP [facility] [place] [address] SP Jun, Cellulitis of right arm L03. 113 and BMI 45.0-49.9, adult Z68.42 SP [place] [address] [address] [place] [id number] [address] [place] [phone] SP May, SP [place] [address] [address] SP May, Chronic obstructive pulmonar y disease, unspecified COPD type SP ; Viral upper respiratory tract infection J06.9 and BMI 45.0-49.9, adult Z68.42 [place] [address] [address] [place] [id number] [place] [address] SP Mar, BMI 45.0-49.9, adult Z68.42 ; Chronic urticaria L50.8 and Skin SP L08.9 [place] [address] [address] [place] [id number] [address] [place] [phone] SP Mar, Dermatitis L30.9 and BMI 45. 0-49.9, adult Z68.42 SP [place] [address] [address] SP Feb, Cellulitis of right upper ex tremity L03.113 and BMI 45.0-49.9, SP Z68.42 [place] [address] [address] SP Feb, Cellulitis of right arm L03. 113 and Status post cardiac SP Z98.890 [place] [address] [address] SP Feb, SP [place] [address] [address] SP Feb, Chronic obstructive pulmonar y disease, unspecified COPD type SP ; Essential hypertension I10 ; Encounter for immunization Z23 ; Mixed hyperlipidemia E78.2 and BMI 45.0-49.9, adult Z68.42 [place] [address] [address] SP Feb, Dysuria R30.0 ; Acute cystit is without hematuria N30.00 and BMI SP49.9, adult Z68.42 [place] [address] [address] SP Dec, SP [place] [address] [address] SP Dec, Essential hypertension I10 ; Chronic kidney disease, unspecified SP ; Mixed hyperlipidemia E78.2 ; Tinea corporis B35.4 ; Right hip pain M25.551 and Acute pain of right knee M25.561 [place] [address] [address] SP Dec, Herpes zoster without compli cation B02.9 ; Dandruff L21.0 ; SP unspecified type R19.7 and BMI 45.0-49.9, adult Z68.42 [place] [address] [address] SP September, Chronic kidney disease, unsp ecified N18.9 ; Essential SP I10 ; Mixed hyperlipidemia E78.2 and BMI 45.0-49.9, adult Z68.42 [place] [address] [place] [id number] [place] [address] SP September, SP [place] [address] [place] [id number] [place] [phone] SP September, Essential hypertension I10 ; Chronic kidney disease, unspecified SP ; Prediabetes R73.03 ; Low back pain M54.5 ; Other chronic pain G89.29 ; Arthritis of knee M17.10 ; Pure hyperglyceridemia E78.1 ; Anemia of chronic disease D63.8 and BMI 45.0-49.9, adult Z68.42 [place] [address] [place] [id number] [place] [phone] SP Aug, SP [place] [address] [place] [id number] [place] [phone] SP Jul, Abdominal aortic aneurysm (A AA) without rupture I71.4 ; PVD SP vascular disease) I73.9 ; Renal artery stenosis I70.1 and Essential hypertension I10 [place] [address] [address] [place] [id number] [place] [phone] SP May, Essential hypertension I10 ; Pure hyperglyceridemia E78.1 ; SP aortic aneurysm (AAA) without rupture I71.4 ; Chronic kidney disease, unspecified N18.9 ; Gastroesophageal reflux disease without esophagitis K21.9 ; 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 ; Stenosis of right renal artery I70.1 ; Anemia of chronic disease D63.8 and Prediabetes R73.03 [place] [address] [address] [place] [id number] [address] [place] [phone] SP May, Tinea corporis B35.4 and Vir al URI J06.9 SP [place] [address] [address] [place] [id number] [place] [phone] SP May, SP [place] [address] [place] [id number] [place] [address] SP Apr, [facility] [address] [place] [id number] [place] [phone] SP Apr, Cervical radiculopathy M54.1 2 [facility] [address] SP Apr, Flank pain R10.9 and Acute p yelonephritis N10 SP [facility] [address] [address] SP Apr, SP [facility] [address] [address] SP Mar, [facility] [address] [address] SP Feb, Pain of right shoulder regio n M25.511 [facility] [address] [address] SP Feb, History of glaucoma Z86.69 ; Vision changes H53.9 ; Abdominal SP aneurysm (AAA) without rupture I71.4 ; Xerosis of skin L85.3 and Pain in right shoulder M25.511 [facility] [address] [address] SP Feb, [facility] [address] [place] [id number] [place] [phone] SP Jan, Essential hypertension I10 ; Pure hyperglyceridemia E78.1 ; SP kidney disease, unspecified N18.9 ; Gastroesophageal reflux disease without esophagitis K21.9 ; 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 ; Stenosis of right renal artery I70.1 ; Anemia of chronic disease D63.8 ; Prediabetes R73.03 ; Pain of right shoulder region M25.511 and Homeless Z59.0 [facility] [address] [place] [id number] [place] [phone] SP Jan, Neck pain M54.2 and Seasonal allergic rhinitis, unspecified SP rhinitis trigger J30.2 [facility] [address] [place] [id number] [place] [phone] SP Dec, SP [place] [address] [address] SP Dec, SP [place] [address] [address] [place] [id number] [address] [place] [phone] SP Dec, Blood glucose abnormal R73.0 9 [...] A04.8 and Prediabetes R73.03 [facility] [address] SP Oct, Seasonal allergic rhinitis, unspecified allergic rhinitis SP J30.2 [place] [address] [address] SP September, Eustachian tube dysfunction, left H69.82 and Candidiasis of SP B37.89 [place] [address] [address] [place] [id number] [place] [phone] SP Jul, Blood glucose abnormal R73.0 9 ; Essential hypertension I10 ; Pure SPhyperglyceridemia E78.1 ; Chronic kidney disease, unspecified N18.9 ; Gastroesophageal reflux disease without esophagitis K21.9 ; 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 ; Abdominal aortic aneurysm (AAA) without rupture I71.4 ; Stenosis of right renal artery I70.1 ; Anemia of chronic disease D63.8 and Acute non-recurrent maxillary sinusitis J01.00 [place] [address] [place] [id number] [place] [phone] SP Jun, Acute non-recurrent maxillar y sinusitis J01.00 ; Acute mucoid SP media of left ear H65.112 ; Nausea R11.0 and Fever and chills R50.9 [facility] [address] [facility] [id number] [address] [place] [phone] SP May, Acute right flank pain R10.9 SP [facility] [address] [facility] [id number] [address] [place] [phone] SP Apr, Acute nasopharyngitis J00 ; Pure hyperglyceridemia E78.1 and SP kidney disease, unspecified N18.9 [place] [address] [facility] [id number] [address] [place] [phone] SP Apr, [facility] [address] [facility] [id number] [place] [phone] SP Apr, Blood glucose abnormal R73.0 9 ; Essential hypertension I10 ; Pure SPhyperglyceridemia E78.1 ; Chronic kidney disease, unspecified N18.9 ; Gastroesophageal reflux disease without esophagitis K21.9 ; 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 ; Abdominal aortic aneurysm (AAA) without rupture I71.4 ; Stenosis of right renal artery I70.1 ; RUQ pain R10.11 and Anemia of chronic disease D63.8 [place] [address] [facility] [id number] [address] [place] [phone] SP Mar, Blood glucose abnormal R73.0 9 [facility] [address] [facility] [id number] [address] [place] [phone] SP Mar, Cellulitis of right lower le g L03.115 [facility] [address] [facility] [id number] [address] [place] [address] SP Feb, [facility] [address] [facility] [id number] [address] [place] [phone] SP Feb, Dysuria R30.0 and Upper resp iratory tract infection, unspecified SP J06.9 [facility] [address] [facility] [id number] [address] [place] [phone] SP Jan, SP [facility] [address] [place] [id number] [address] [place] [phone] SP Jan, SP [place] [address] [place] [id number] [place] [phone] SP Dec, SP [place] [address] [place] [id number] [place] [address] SP Dec, Anemia of chronic disease D6 3.8 ; Essential hypertension I10 ; SP hyperglyceridemia E78.1 ; Chronic kidney disease, unspecified N18.9 ; Gastroesophageal reflux disease without esophagitis K21.9 ; 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 and Pain in right knee M25.561 [place] [address] [place] [id number] [address] [place] [id number] SP Dec, Left shoulder strain, subseq uent encounter S46.912D ; Urinary SP R35.0 ; Lung nodule, solitary R91.1 ; Essential hypertension I10 and Acute cystitis without hematuria N30.00 [place] [address] [place] [id number] [place] [phone] SP Nov, Left-sided chest wall pain R 07.89 and Abnormal chest xray R93.8 SP [place] [address] [place] [id number] [address] [place] [address] SP Nov, Pain of right lower extremit y M79.604 ; Swelling of right lower SP M79.89 ; Diarrhea, unspecified R19.7 ; Nausea with vomiting, unspecified R11.2 ; Left-sided chest wall pain R07.89 ; Chronic kidney disease, unspecified N18.9 ; Gastroesophageal reflux disease without esophagitis K21.9 and Other seasonal allergic rhinitis J30.2 [place] [address] [place] [id number] [address] [place] [phone] SP September, Essential hypertension I10 ; Chronic kidney disease, unspecified SP ; Anemia of chronic disease D63.8 ; Pure hyperglyceridemia E78.1 ; Peripheral vascular disease I73.9 ; Abnormal glucose R73.09 ; 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 ; Gastroesophageal reflux disease without esophagitis K21.9 ; Allergic rhinitis J30.9 and Rash R21 [place] [address] [address] SP Aug, Abdominal pain R10.9 and Con stipation K59.00 SP [place] [address] [address] SP Jul, Injury of toe on right foot S99.921A SP [place] [address] [address] SP Jul, SP [place] [address] [address] SP Jul, Essential hypertension I10 ; Chronic kidney disease, unspecified SP ; Anemia of chronic disease D63.8 ; Pure hyperglyceridemia E78.1 ; Peripheral vascular disease I73.9 ; Abnormal glucose R73.09 ; 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 ; Gastroesophageal reflux disease without esophagitis K21.9 and Allergic rhinitis J30.9 [place] [address] [address] SP Jun, Low back pain M54.5 SP [place] [address] [address] SP Jun, SP [place] [address] [address] SP May, URI (upper respiratory infec tion) J06.9 SP [place] [address] [address] SP Apr, Essential hypertension I10 SP [place] [address] [address] SP Apr, Essential hypertension I10 ; Chronic kidney disease, unspecified SP ; Anemia of chronic disease D63.8 ; Pure hyperglyceridemia E78.1 ; Peripheral vascular disease I73.9 ; Abnormal glucose R73.09 ; URI (upper respiratory infection) J06.9 ; 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 ; Gastroesophageal reflux disease without esophagitis K21.9 and Cough R05 [place] [address] [address] SP Mar, Flank pain R10.9 and URI (up per respiratory infection) J06.9 SP [place] [address] [address] SP Mar, Right-sided low back pain wi thout sciatica M54.5 and Hematuria, SP R31.9 [place] [address] [address] SP Mar, Hypopigmentation L81.9 and H yperpigmentation L81.9 SP [place] [address] [address] SP Mar, SP [place] [address] [address] SP Mar, Acute cystitis with hematuri a N30.01 SP [place] [address] [address] SP Mar, SP [place] [address] [address] SP Feb, Furuncle L02.92 ; Hypopigmen tation L81.9 ; Hyperpigmentation SP ; Urinary frequency R35.0 ; Screening for malignant neoplasm of cervix Z12.4 ; Vaginal discharge N89.8 ; Urinary, incontinence, stress female N39.3 and Vaginal irritation N89.8 [place] [address] [address] SP Jan, Muscle spasm 728.85 ; Unspec ified peripheral vascular disease SP ; Benign essential hypertension 401.1 ; Chronic renal insufficiency 585.9 ; Chronic constipation 564.00 ; GERD (gastroesophageal reflux disease) 530.81 ; Hyperlipidemia 272.4 and Chronic leg pain 729.5 [place] [address] [address] SP Jan, Sinusitis 473.9 SP [place] [address] [place] [id number] [place] [address] SP Dec, SP [place] [address] [address] SP Dec, Acute bronchitis 466.0 [place] [address] [address] SP Dec, Acute bronchitis 466.0 SP [place] [address] [address] SP Dec, Unspecified episodic mood di sorder 296.90 [place] [address] [address] SP Dec, Visit for suture removal V58 .[address] [address] SP Nov, Allergic rhinitis 477.9 and Onychomycosis 110.1 SP [place] [address] [address] SP Oct, Muscle spasm 728.85 ; Benign essential hypertension 401.1 ; SP renal insufficiency 585.9 ; Chronic constipation 564.00 ; GERD (gastroesophageal reflux disease) 530.81 and Hyperlipidemia 272.4 [place] [address] [place] [id number] [address] [place] [address] SP Oct, Otalgia of left ear 388.70 SP [place] [address] [place] [id number] [place] [address] SP Oct, Unspecified episodic mood di sorder 296.90 [place] [address] [address] SP September, Unspecified episodic mood di sorder 296.90 [place] [address] [place] [id number] [place] [address] SP September, Unspecified episodic mood di sorder 296.90 SP [place] [address] [id number] [place] [address] SP September, Urinary frequency 788.41 and Constipation 564.00 SP [facility] [address] [id number] [address] [place] [address], [place] [address] SP Aug, SP [facility] [address] [facility] [id number] [address] [place] [phone] SP Aug, SP [facility] [address] [id number] [address] [place] [phone] SP Jul, SP [facility] [address] [id number] [address] [place] [address], [place] [address] SP Jul, SP [facility] [address] [id number] [address] [place] [phone] SP Jul, SP [facility] [address] [id number] [address] [place] [address] SP Jul, SP [facility] [address] [id number] [address] [place] [address], [place] [address] SP Jul, SP [facility] [address] [id number] [address] [place] [address], [place] [address] SP Jul, SP [facility] [address] [facility] [id number] [address] [place] [phone] SP Jul, SP [facility] [address] [id number] [address] [place] [phone] SP Jul, SP [facility] [address] [id number] [address] [place] [phone] SP Jul, SP [facility] [address] [id number] [address] [place] [phone] SP Jul, SP [facility] [address] [facility] [id number] [address] [place] [phone] SP Jun, SP [facility] [address] [facility] [id number] [address] [place] [phone] SP Jun, SP [facility] [address] [id number] [address] [place] [address], [place] [address] SP May, SP [facility] [address] [id number] [address] [place] [address], [place] [address] SP May, SP [facility] [address] [id number] [address] [place] [address], [place] [address] SP May, SP [facility] [address] [id number] [address] [place] [address], [place] [address] SP May, SP [facility] [address] [id number] [address] [place] [address], [place] [address] SP May, SP [facility] [address] [id number] [address] [place] [address], [place] [address] SP May, SP [facility] [address] [id number] [address] [place] [address], [place] [address] SP May, SP [facility] [address] [id number] [address] [place] [address], [place] [address] SP May, SP [facility] [address] [id number] [address] [place] [address], [place] [address] SP May, SP [facility] [address] [id number] [address] [place] [address], [place] [address] SP May, SP [facility] [address] [id number] [address] [place] [address], [place] [address] SP May, SP [facility] [address] [id number] [address] [place] [address], [place] [address] SP May, SP [facility] [address] [id number] [address] [place] [address], [place] [address] SP May, SP [facility] [address] [id number] [address] [place] [address], [place] [address] SP Feb, SP [facility] [address] [id number] [address] [place] [address], [place] [address] SP 07 Feb, 2014 SP [facility] [address] [id number] [address] [place] [address], [place] [address] SP 20 Jan, 2013 SP [facility] [address] [id number] [address] [place] [address], [place] [address] SP 20 Jan, 2013 SP [facility] [address] [id number] [address] [place] [address], [place] [address] SP 18 Jan, 2013 SP [facility] [address] [id number] [address] [place] [address], [place] [address] SP 18 Jan, 2013 SP [facility] [address] [id number] [address] [place] [address], [place] [address] SP 12 Jan, 2013 SP [facility] [address] [id number] [address] [place] [address], [place] [address] SP 12 Jan, 2013 SP [facility] [address] [id number] [address] [place] [address], [place] [address] SP 12 Jan, 2013 SP [facility] [address] [id number] [address] [place] [address], [place] [address] SP 12 Jan, 2013 SP [facility] [address] [id number] [address] [place] [address], [place] [address] SP 11 Jan, 2013 SP [facility] [address] [id number] [address] [place] [address], [place] [address] SP 11 Jan, 2013 SP [facility] [address] [id number] [address] [place] [address], [place] [id number] SP 10 Jan, 2013 SP [facility] [address] [id number] [address] [place] [address], [place] [id number] SP 10 Jan, 2013 SP [facility] [address] [id number] [address] [place] [address], [place] [id number] SP Oct, SP [facility] [address] [id number] [address] [place] [address], [place] [id number] SP Oct, SP [facility] [address] [id number] [address] [place] [address], [place] [id number] SP Oct, SP [facility] [address] [id number] [address] [place] [address], [place] [id number] SP Oct, SP [facility] [address] [id number] [address] [place] [address], [place] [id number] SP Jun, SP [facility] [address] [id number] [address] [place] [address], [place] [id number] SP Jun, SP [facility] [address] [id number] [address] [place] [address], [place] [id number] SP Jun, SP [facility] [address] [id number] [address] [place] [address], [place] [id number] SP Jun, SP [facility] [address] [id number] [address] [place] [id number] SP Apr, SP [facility] [address] [id number] [address] [place] [address], [place] [id number] SP Apr, SP [facility] [address] [id number] [address] [place] [address], [place] [id number] SP Feb, SP [facility] [address] [id number] [address] [place] [id number] SP Feb, SP [facility] [address] [id number] [address] [place] [id number] SP Dec, SP [facility] [address] [id number] [address] [place] [address], [place] [id number] SP Dec, SP [facility] [address] [id number] [address] [place] [address], [place] [id number] SP Nov, SP [facility] [facility] [address] [id number] [address] [place] [id number] SP Nov, SP [facility] [address] [id number] [address] [place] [id number] SP Nov, SP [facility] [address] [id number] [address] [place] [address], [place] [address] SP Oct, SP [facility] [address] [id number] [address] [place] [address], [place] [address] SP September, SP [facility] [address] [id number] [address] [place] [address], [place] [address] SP September, SP [facility] [address] [id number] [address] [place] [address], [place] [address] SP Aug, SP [facility] [address] [id number] [address] [place] [address], [place] [address] SP Aug, SP [facility] [address] [id number] [address] [place] [address], [place] [address] SP Aug, SP [facility] [address] [id number] [address] [place] [address], [place] [address] SP Aug, SP [facility] [address] [id number] [address] [place] [address], [place] [address] SP Aug, SP [facility] [address] [id number] [address] [place] [address], [place] [address] SP Aug, SP [facility] [address] [id number] [address] [place] [address], [place] [address] SP Jul, SP [facility] [address] [id number] [address] [place] [address], [place] [address] SP Jul, SP [facility] [address] [id number] [address] [place] [address], [place] [address] SP Jul, SP [facility] [address] [id number] [address] [place] [address], [place] [address] SP Jul, SP [facility] [address] [id number] [address] [place] [address], [place] [address] SP Jul, SP [facility] [address] [id number] [address] [place] [address], [place] [address] SP Jul, SP [facility] [address] [id number] [address] [place] [address], [place] [address] SP Jun, SP [facility] [address] [id number] [address] [place] [address], [place] [address] SP Jun, SP [facility] [address] [id number] [address] [place] [address], [place] [address] SP May, SP [facility] [address] [id number] [address] [place] [address], [place] [address] SP May, SP [facility] [address] [id number] [address] [place] [address], [place] [address] SP Apr, SP [facility] [address] [id number] [address] [place] [address], [place] [address] SP Apr, SP [facility] [address] [id number] [address] [place] [address], [place] [address] SP Apr, SP [facility] [address] [id number] [address] [place] [address], [place] [address] SP Apr, SP [facility] [address] [id number] [address] [place] [address], [place] [id number] SP Apr, SP [facility] [address] [id number] [address] [place] [address], [place] [address] SP Mar, SP [facility] [address] [id number] [address] [place] [address], [place] [address] SP Mar, SP [facility] [address] [id number] [address] [place] [address], [place] [address] SP Mar, SP [facility] [address] [id number] [address] [place] [address], [place] [address] SP Mar, SP [facility] [address] [id number] [address] [place] [address], [place] [address] SP Mar, SP [facility] [address] [id number] [address] [place] [address], [place] [address] SP Mar, SP [facility] [address] [id number] [address] [place] [address], [place] [address] SP Mar, SP [facility] [address] [id number] [address] [place] [address], [place] [address] SP Feb, SP [facility] [address] [id number] [address] [place] [address], [place] [address] SP Feb, SP [facility] [address] [id number] [address] [place] [address], [place] [address] SP Feb, SP [facility] [address] [id number] [address] [place] [address], [place] [address] SP Feb, SP [facility] [address] [id number] [address] [place] [address], [place] [id number] SP Dec, SP [facility] [address] [id number] [address] [place] [address], [place] [address] SP Nov, SP [facility] [address] [id number] [address] [place] [address], [place] [address] SP Nov, SP [facility] [address] [id number] [address] [place] [address], [place] [address] SP Oct, SP [facility] [address] [id number] [address] [place] [address], [place] [address] SP Oct, SP [facility] [address] [id number] [address] [place] [address], [place] [id number] SP Oct, SP [facility] [address] [id number] [address] [place] [address], [place] [address] SP Oct, SP [facility] [address] [id number] [address] [place] [address], [place] [address] SP Oct, SP [facility] [address] [id number] [address] [place] [address], [place] [address] SP Oct, SP [facility] [address] [id number] [address] [place] [address], [place] [address] SP Oct, SP [facility] [address] [id number] [address] [place] [address], [place] [address] SP Aug, SP [facility] [address] [id number] [address] [place] [address], [place] [address] SP Jul, SP [facility] [address] [id number] [address] [place] [address], [place] [id number] SP Jul, SP [facility] [address] [id number] [address] [place] [address], [place] [address] SP Jul, SP [facility] [address] [id number] [address] [place] [address], [place] [address] SP Jul, SP [facility] [address] [id number] [address] [place] [address], [place] [address] SP Jul, SP [facility] [address] [id number] [address] [place] [address], [place] [address] SP Jul, SP [facility] [address] [id number] [address] [place] [address], [place] [address] SP Jul, SP [facility] [address] [id number] [address] [place] [address], [place] [address] SP Jun, SP [facility] [address] [id number] [address] [place] [address], [place] [address] SP May, SP [facility] [address] [id number] [address] [place] [address], [place] [address] SP May, SP [facility] [address] [id number] [address] [place] [address], [place] [address] SP May, SP [facility] [address] [id number] [address] [place] [address], [place] [address] SP Apr, SP [facility] [address] [id number] [address] [place] [address], [place] [address] SP Apr, SP [facility] [address] [id number] [address] [place] [address], [place] [address] SP Apr, SP [facility] [address] [id number] [address] [place] [address], [place] [address] SP Apr, SP [facility] [address] [id number] [address] [place] [address], [place] [address] SP Apr, SP [facility] [address] [id number] [address] [place] [address], [place] [address] SP Apr, SP [facility] [address] [id number] [address] [place] [address], [place] [address] SP Mar, SP [facility] [address] [id number] [address] [place] [address], [place] [address] SP Mar, SP [facility] [address] [id number] [address] [place] [address], [place] [address] SP Mar, SP [facility] [address] [id number] [address] [place] [address], [place] [address] SP Mar, SP [facility] [address] [id number] [address] [place] [address], [place] [address] SP Mar, SP [facility] [address] [id number] [address] [place] [address], [place] [address] SP Mar, SP [facility] [address] [id number] [address] [place] [address], [place] [address] SP Mar, SP [facility] [address] [id number] [address] [place] [address], [place] [address] SP Dec, SP [facility] [address] [id number] [address] [place] [address], [place] [address] SP Aug, SP [facility] [address] [id number] [address] [place] [address], [place] [address] SP Apr, SP [facility] [address] [id number] [address] [place] [id number] SP Mar, SP [facility] [address] [id number] [address] [place] [id number] SP Mar, SP [facility] [address] [id number] [address] [place] [id number] SP Mar, SP [facility] [address] [id number] [address] [place] [address] SP Mar, SP [facility] [address] [id number] [address] [place] [id number] SP September, SP [facility] [address] [id number] [address] [place] [id number] SP Mar, SP [facility] [address] [facility] [id number] [address] [place] [id number] SP Feb, SP [facility] [address] [id number] [address] [place] [id number] SP Oct, SP [facility] [address] [id number] [address] [place] [id number] SP September, SP [facility] [address] [id number] [address] [place] [id number] SP Apr, SP [facility] [address] [id number] [address] [place] [id number] SP Mar, SP IMMUNIZATIONS No Known Immunizations [...]
--- OUTSIDE RECORDS SUMMARY | 2019-04-01 02:22 | XMS REPORT ---
Author Author Migration, Doctor POS Organization [facility] SP Address Unknown SP Phone Unavailable SP Care Team Providers Care Hall Cleaner Name Role Phone POS Migration, Doctor Unavailable Unavailable SP PROBLEMS Type Condition ICD9-CM Code TIL57-EJ Code Onset Dates Condition S tatus SNOMED POS Problem Peripheral vascular disease I73.9 Ac tive [id number] POS Problem Urinary, incontinence, stress female N39.3 Active [id number] SP Problem Chronic kidney disease, unspecified N18.9 Active 397186990 SP Problem Dysphagia, unspecified R13.10 Active 77115810 SP Problem Anemia of chronic disease D63.8 Acti ve 259250522 SP Problem Cervicalgia M54.2 Active 23195916 72543 SP Problem Essential hypertension I10 Active 48776706 SP Problem 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 649551463 SP Problem Abdominal aortic aneurysm (AAA) without rupture I7 1.4 Active SP Problem Seasonal allergic rhinitis, unspecified allergic rhinitis trigger SP Active 765628599 SP Problem Prediabetes R73.03 Active 59715144 2 SP Problem Mixed hyperlipidemia E78.2 Active 735390042 SP Problem Stenosis of right renal artery I70.1 Active [id number] SP Problem Chronic obstructive pulmonary disease, unspecified COPD ty pe J44.9 SP 82975361 SP Problem Gastroesophageal reflux disease without esophagitis K21.9 Active SP Problem Hepatic steatosis K76.0 Active 19 4887882 SP Problem Renal artery stenosis I70.1 Active 975699563 SP Problem PVD (peripheral vascular disease) I73.9 Active 602849421 SP Problem Arthritis of knee M17.10 Active 37 1472274 SP Problem Other chronic pain G89.29 Active 8 5509899 SP ALLERGIES No Information ENCOUNTERS Encounter Location Date Diagnosis POS [facility] [address] [id number] [address] [place] [address] SP Jul, Contact dermatitis and other eczema, due to unspecified cause SP ; Morbid obesity E66.01 ; Essential hypertension I10 ; Chronic obstructive pulmonary disease, unspecified COPD type J44.9 ; Chronic kidney disease, unspecified N18.9 and Mixed hyperlipidemia E78.2 [facility] [address] SP Jul, Skin infection L08.9 and Mor bid obesity E66.01 SP [facility] [address] SP Jun, Cellulitis of right arm L03. 113 and BMI 45.0-49.9, adult Z68.42 SP [place] [address] [address] SP May, SP [place] [address] [address] SP May, Chronic obstructive pulmonar y disease, unspecified COPD type SP ; Viral upper respiratory tract infection J06.9 and BMI 45.0-49.9, adult Z68.42 [place] [address] [address] SP Mar, BMI 45.0-49.9, adult Z68.42 ; Chronic urticaria L50.8 and Skin SP L08.9 [place] [address] [address] SP Mar, Dermatitis L30.9 and BMI 45. 0-49.9, adult Z68.42 SP [place] [address] [address] SP Feb, Cellulitis of right upper ex tremity L03.113 and BMI 45.0-49.9, SP Z68.42 [place] [address] [address] SP Feb, Cellulitis of right arm L03. 113 and Status post cardiac SP Z98.890 [place] [address] [address] SP Feb, SP [place] [address] [place] [id number] [place] [address] SP Feb, Chronic obstructive pulmonar y disease, unspecified COPD type SP ; Essential hypertension I10 ; Encounter for immunization Z23 ; Mixed hyperlipidemia E78.2 and BMI 45.0-49.9, adult Z68.42 [place] [address] [place] [id number] [place] [address] SP Feb, Dysuria R30.0 ; Acute cystit is without hematuria N30.00 and BMI SP49.9, adult Z68.42 [place] [address] [place] [id number] [place] [phone] SP Dec, SP [place] [address] [place] [id number] [place] [address] SP Dec, Essential hypertension I10 ; Chronic kidney disease, unspecified SP ; Mixed hyperlipidemia E78.2 ; Tinea corporis B35.4 ; Right hip pain M25.551 and Acute pain of right knee M25.561 [place] [address] [address] SP Dec, Herpes zoster without compli cation B02.9 ; Dandruff L21.0 ; SP unspecified type R19.7 and BMI 45.0-49.9, adult Z68.42 [place] [address] [address] SP September, Chronic kidney disease, unsp ecified N18.9 ; Essential SP I10 ; Mixed hyperlipidemia E78.2 and BMI 45.0-49.9, adult Z68.42 [place] [address] [address] SP September, SP [place] [address] [place] [id number] [place] [address] SP September, Essential hypertension I10 ; Chronic kidney disease, unspecified SP ; Prediabetes R73.03 ; Low back pain M54.5 ; Other chronic pain G89.29 ; Arthritis of knee M17.10 ; Pure hyperglyceridemia E78.1 ; Anemia of chronic disease D63.8 and BMI 45.0-49.9, adult Z68.42 [facility] [address] [address] SP Aug, SP [facility] [address] [address] SP Jul, Abdominal aortic aneurysm (A AA) without rupture I71.4 ; PVD SP vascular disease) I73.9 ; Renal artery stenosis I70.1 and Essential hypertension I10 [place] [address] [address] SP May, Essential hypertension I10 ; Pure hyperglyceridemia E78.1 ; SP aortic aneurysm (AAA) without rupture I71.4 ; Chronic kidney disease, unspecified N18.9 ; Gastroesophageal reflux disease without esophagitis K21.9 ; 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 ; Stenosis of right renal artery I70.1 ; Anemia of chronic disease D63.8 and Prediabetes R73.03 [facility] [address] [address] SP May, Tinea corporis B35.4 and Vir al URI J06.9 SP [facility] [address] [place] [id number] [place] [address] SP May, SP [facility] [address] [place] [id number] [place] [phone] SP Apr, [facility] [address] [place] [id number] [place] [phone] SP Apr, Cervical radiculopathy M54.1 2 SP [facility] [address] [place] [id number] [place] [address] SP Apr, Flank pain R10.9 and Acute p yelonephritis N10 SP [facility] [address] [address] SP Apr, [place] [address] [address] [facility] [id number] [address] [place] [address] SP Mar, [place] [address] [address] [facility] [id number] [address] [place] [address] SP Feb, Pain of right shoulder regio n M25.511 SP [place] [address] [place] [id number] [place] [address] SP Feb, History of glaucoma Z86.69 ; Vision changes H53.9 ; Abdominal SP aneurysm (AAA) without rupture I71.4 ; Xerosis of skin L85.3 and Pain in right shoulder M25.511 [place] [address] [place] [id number] [place] [address] SP Feb, [place] [address] [place] [id number] [place] [address] SP Jan, Essential hypertension I10 ; Pure hyperglyceridemia E78.1 ; SP kidney disease, unspecified N18.9 ; Gastroesophageal reflux disease without esophagitis K21.9 ; Idiopathic progressive neuropathy G60.3 ; Stenosis of right renal artery I70.1 ; Anemia of chronic disease D63.8 ; Prediabetes R73.03 ; Pain of right shoulder region M25.511 and Homeless Z59.0 [place] [address] [place] [id number] [place] [phone] SP Jan, Neck pain M54.2 and Seasonal allergic rhinitis, unspecified SP rhinitis trigger J30.2 [place] [address] [facility] [id number] [address] [place] [address] SP Dec, [place] [address] [address] [facility] [id number] [address] [place] [address] SP Dec, [place] [address] [address] [facility] [id number] [address] [place] [address] SP Dec, Blood glucose abnormal R73.0 9 [...] H. 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 ; Abdominal aortic aneurysm (AAA) without rupture I71.4 ; Stenosis of right renal artery I70.1 ; Anemia of chronic disease D63.8 and Acute non-recurrent maxillary sinusitis J01.00 [place] [address] [place] [id number] [place] [address] SP Jun, Acute non-recurrent maxillar y sinusitis J01.00 ; Acute mucoid SP media of left ear H65.112 ; Nausea R11.0 and Fever and chills R50.9 [place] [address] [place] [id number] [place] [address] SP May, Acute right flank pain R10.9 SP [place] [address] [place] [id number] [place] [address] SP Apr, Acute nasopharyngitis J00 ; Pure hyperglyceridemia E78.1 and SP kidney disease, unspecified N18.9 [place] [address] [place] [address] SP Apr, SP [facility] [address] [facility] [id number] [address] [place] [phone] SP Apr, Blood glucose abnormal R73.0 9 ; Essential hypertension I10 ; Pure SPhyperglyceridemia E78.1 ; Chronic kidney disease, unspecified N18.9 ; Gastroesophageal reflux disease without esophagitis K21.9 ; 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 ; Abdominal aortic aneurysm (AAA) without rupture I71.4 ; Stenosis of right renal artery I70.1 ; RUQ pain R10.11 and Anemia of chronic disease D63.8 [facility] [address] [facility] [id number] [address] [place] [phone] SP Mar, Blood glucose abnormal R73.0 9 SP [facility] [address] [facility] [id number] [address] [place] [address] SP Mar, Cellulitis of right lower le g L03.115 SP [facility] [address] [facility] [id number] [address] [place] [address] SP Feb, SP [facility] [address] [facility] [id number] [address] [place] [phone] SP Feb, Dysuria R30.0 and Upper resp iratory tract infection, unspecified SP J06.9 [facility] [address] [facility] [id number] [address] [place] [phone] SP Jan, SP [facility] [address] [facility] [id number] [address] [place] [address] SP Jan, SP [facility] [address] [facility] [id number] [address] [place] [id number] SP Dec, SP [facility] [address] [facility] [id number] [address] [place] [phone] SP Dec, Anemia of chronic disease D6 3.8 ; Essential hypertension I10 ; SP hyperglyceridemia E78.1 ; Chronic kidney disease, unspecified N18.9 ; Gastroesophageal reflux disease without esophagitis K21.9 ; 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 and Pain in right knee M25.561 [place] [address] [place] [id number] [place] [address] SP Dec, Left shoulder strain, subseq uent encounter S46.912D ; Urinary SP R35.0 ; Lung nodule, solitary R91.1 ; Essential hypertension I10 and Acute cystitis without hematuria N30.00 [place] [address] [address] SP Nov, Left-sided chest wall pain R 07.89 and Abnormal chest xray R93.8 SP [place] [address] [address] SP Nov, Pain of right lower extremit y M79.604 ; Swelling of right lower SP M79.89 ; Diarrhea, unspecified R19.7 ; Nausea with vomiting, unspecified R11.2 ; Left-sided chest wall pain R07.89 ; Chronic kidney disease, unspecified N18.9 ; Gastroesophageal reflux disease without esophagitis K21.9 and Other seasonal allergic rhinitis J30.2 [place] [address] [address] SP September, Essential hypertension I10 ; Chronic kidney disease, unspecified SP ; Anemia of chronic disease D63.8 ; Pure hyperglyceridemia E78.1 ; Peripheral vascular disease I73.9 ; Abnormal glucose R73.09 ; 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 ; Gastroesophageal reflux disease without esophagitis K21.9 ; Allergic rhinitis J30.9 and Rash R21 [place] [address] [place] [id number] [place] [address] SP Aug, Abdominal pain R10.9 and Con stipation K59.00 SP [place] [address] [address] SP Jul, Injury of toe on right foot S99.921A SP [place] [address] [address] SP 14 Jul, 2015 SP [place] [address] [facility] [id number] [address] [place] [address] SP Jul, Essential hypertension I10 ; Chronic kidney disease, unspecified SP ; Anemia of chronic disease D63.8 ; Pure hyperglyceridemia E78.1 ; Peripheral vascular disease I73.9 ; Abnormal glucose R73.09 ; Idiopathic progressive neuropathy G60.3 ; Gastroesophageal reflux disease without esophagitis K21.9 and Allergic rhinitis J30.9 [place] [address] [address] SP Jun, Low back pain M54.5 SP [place] [address] [place] [id number] [place] [address] SP Jun, SP [place] [address] [place] [id number] [place] [address] SP May, URI (upper respiratory infec tion) J06.9 SP [place] [address] [address] SP Apr, Essential hypertension I10 SP [place] [address] [address] SP Apr, Essential hypertension I10 ; Chronic kidney disease, unspecified SP ; Anemia of chronic disease D63.8 ; Pure hyperglyceridemia E78.1 ; Peripheral vascular disease I73.9 ; Abnormal glucose R73.09 ; URI (upper respiratory infection) J06.9 ; 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 ; Gastroesophageal reflux disease without esophagitis K21.9 and Cough R05 [place] [address] [place] [id number] [place] [address] SP Mar, Flank pain R10.9 and URI (up per respiratory infection) J06.9 SP [place] [address] [place] [id number] [place] [phone] SP Mar, Right-sided low back pain wi thout sciatica M54.5 and Hematuria, SP R31.9 [place] [address] [address] SP Mar, Hypopigmentation L81.9 and H yperpigmentation L81.9 SP [place] [address] [address] SP Mar, SP [place] [address] [address] SP Mar, Acute cystitis with hematuri a N30.01 SP [facility] [address] [address] SP Mar, SP [place] [address] [address] SP Feb, Furuncle L02.92 ; Hypopigmen tation L81.9 ; Hyperpigmentation SP ; Urinary frequency R35.0 ; Screening for malignant neoplasm of cervix Z12.4 ; Vaginal discharge N89.8 ; Urinary, incontinence, stress female N39.3 and Vaginal irritation N89.8 [place] [address] [address] SP Jan, Muscle spasm 728.85 ; Unspec ified peripheral vascular disease SP ; Benign essential hypertension 401.1 ; Chronic renal insufficiency 585.9 ; Chronic constipation 564.00 ; GERD (gastroesophageal reflux disease) 530.81 ; Hyperlipidemia 272.4 and Chronic leg pain 729.5 [place] [address] [address] SP Jan, Sinusitis 473.9 SP [facility] [address] [address] SP Dec, SP [place] [address] [address] SP Dec, Acute bronchitis 466.0 SP [place] [address] [address] SP Dec, Acute bronchitis 466.0 SP [place] [address] [place] [id number] [place] [address] SP Dec, Unspecified episodic mood di sorder 296.90 SP [facility] [address] [address] SP Dec, Visit for suture removal V58 .32 SP [facility] [address] [address] SP Nov, Allergic rhinitis 477.9 and Onychomycosis 110.1 SP [place] [address] [address] SP Oct, Muscle spasm 728.85 ; Benign essential hypertension 401.1 ; SP renal insufficiency 585.9 ; Chronic constipation 564.00 ; GERD (gastroesophageal reflux disease) 530.81 and Hyperlipidemia 272.4 [place] [address] [address] SP Oct, Otalgia of left ear 388.70 SP [place] [address] [address] SP Oct, Unspecified episodic mood di sorder 296.90 [facility] [address] [address] SP September, Unspecified episodic mood di sorder 296.90 [place] [address] [address] SP September, Unspecified episodic mood di sorder 296.90 SP [facility] [address] SP September, Urinary frequency 788.41 and Constipation 564.00 SP [facility] [address] [address] SP Aug, [facility] [address] [place] [id number] [place] [address] SP Aug, SP [place] [address] [place] [address] SP Jul, SP [facility] [place] [facility] [address] [id number] [address] [place] [address], [place] [address] SP Jul, SP [facility] [place] [facility] [address] [id number] [address] [place] [address], [place] [address] SP Jul, SP [facility] [place] [facility] [address] [id number] [address] [place] [address], [place] [address] SP Jul, SP [facility] [place] [facility] [address] [id number] [address] [place] [address], [place] [address] SP Jul, SP [facility] [place] [facility] [address] [id number] [address] [place] [address], [place] [address] SP Jul, SP [facility] [place] [facility] [address] [id number] [address] [place] [address], [place] [address] SP Jul, SP [facility] [place] [facility] [address] [id number] [address] [place] [address], [place] [address] SP Jul, SP [facility] [place] [facility] [address] [id number] [address] [place] [address], [place] [address] SP Jul, SP [facility] [place] [facility] [address] [id number] [address] [place] [address], [place] [address] SP Jul, SP [facility] [place] [facility] [address] [id number] [address] [place] [address], [place] [address] SP Jun, SP [facility] [place] [facility] [address] [id number] [address] [place] [address], [place] [address] SP Jun, SP [facility] [place] [facility] [address] [id number] [address] [place] [address], [place] [address] SP May, SP [facility] [place] [facility] [address] [id number] [address] [place] [address], [place] [address] SP May, SP [facility] [place] [facility] [address] [id number] [address] [place] [address], [place] [address] SP May, SP [facility] [place] [facility] [address] [id number] [address] [place] [address], [place] [address] SP May, SP [facility] [place] [facility] [address] [id number] [address] [place] [address], [place] [address] SP May, SP [facility] [address] [id number] [address] [place] [address], [place] [address] SP May, SP [facility] [place] [facility] [address] [id number] [address] [place] [address], [place] [address] SP May, SP [facility] [place] [facility] [address] [id number] [address] [place] [address], [place] [address] SP May, SP [facility] [address] [id number] [address] [place] [address], [place] [address] SP May, SP [facility] [address] [id number] [address] [place] [address], [place] [address] SP May, SP [facility] [address] [id number] [address] [place] [address], [place] [address] SP May, SP [facility] [address] [id number] [address] [place] [address], [place] [address] SP May, SP [facility] [address] [id number] [address] [place] [address], [place] [address] SP May, SP [facility] [address] [id number] [address] [place] [address], [place] [address] SP Feb, SP [facility] [place] [facility] [address] [id number] [address] [place] [address], [place] [address] SP Feb, SP [facility] [place] [facility] [address] [id number] [address] [place] [address], [place] [address] SP Jan, SP [facility] [place] [facility] [address] [id number] [address] [place] [address], [place] [address] SP 20 Jan, 2014 SP [facility] [place] [facility] [address] [id number] [address] [place] [address], [place] [address] SP 18 Jan, 2013 SP [facility] [place] [facility] [address] [id number] [facility] [place] [address] SP 18 Jan, 2013 SP [facility] [place] [facility] [address] [id number] [facility] [place] [address] SP 12 Jan, 2013 SP [facility] [place] [facility] [address] [id number] [address] [place] [address], [place] [address] SP 12 Jan, 2013 SP [facility] [place] [facility] [address] [id number] [address] [place] [address], [place] [address] SP 12 Jan, 2013 SP [facility] [place] [facility] [address] [id number] [address] [place] [address], [place] [address] SP Jan, 2013 SP [facility] [place] [facility] [address] [id number] [address] [place] [address], [place] [address] SP Jan, 2013 SP [facility] [place] [facility] [address] [id number] [address] [place] [address], [place] [address] SP Jan, 2013 SP [facility] [place] [facility] [address] [id number] [address] [place] [address], [place] [address] SP Jan, 2013 SP [facility] [place] [facility] [address] [id number] [address] [place] [address], [place] [address] SP Jan, 2013 SP [facility] [place] [facility] [address] [id number] [address] [place] [address], [place] [address] SP Oct, SP [facility] [place] [facility] [address] [id number] [address] [place] [address], [place] [address] SP Oct, SP [facility] [place] [facility] [address] [id number] [address] [place] [address], [place] [address] SP Oct, SP [facility] [place] [facility] [address] [id number] [address] [place] [address], [place] [address] SP Oct, SP [facility] [place] [facility] [address] [id number] [address] [place] [address], [place] [address] SP Jun, SP [facility] [place] [facility] [address] [id number] [address] [place] [address], [place] [address] SP Jun, SP [facility] [address] [id number] [address] [place] [address], [place] [address] SP Jun, SP [facility] [place] [facility] [address] [id number] [address] [place] [address], [place] [id number] SP Jun, SP [facility] [address] [id number] [address] [place] [address], [place] [id number] SP Apr, SP [facility] [address] [id number] [address] [place] [address], [place] [id number] SP Apr, SP [facility] [address] [id number] [address] [place] [address], [place] [id number] SP Feb, SP [facility] [address] [id number] [address] [place] [address], [place] [id number] SP Feb, SP [facility] [address] [id number] [address] [place] [address], [place] [id number] SP Dec, SP [facility] [address] [id number] [address] [place] [address], [place] [id number] SP Dec, SP [facility] [address] [id number] [address] [place] [address], [place] [id number] SP Nov, SP [facility] [address] [id number] [address] [place] [address], [place] [id number] SP Nov, SP [facility] [address] [id number] [address] [place] [address], [place] [id number] SP Nov, SP [facility] [address] [id number] [address] [place] [address], [place] [id number] SP Oct, SP [facility] [address] [id number] [address] [place] [address], [place] [id number] SP September, SP [facility] [address] [id number] [address] [place] [address], [place] [id number] SP September, SP [facility] [address] [id number] [facility] [place] [id number] SP Aug, SP [facility] [address] [id number] [address] [place] [address], [place] [id number] SP Aug, SP [facility] [address] [id number] [address] [place] [address], [place] [id number] SP Aug, SP [facility] [facility] [address] [id number] [address] [place] [address], [place] [id number] SP Aug, SP [facility] [address] [id number] [address] [place] [address], [place] [id number] SP Aug, SP [facility] [address] [id number] [address] [place] [address], [place] [id number] SP Aug, SP [facility] [address] [id number] [address] [place] [address], [place] [address] SP Jul, SP [facility] [address] [id number] [address] [place] [address], [place] [id number] SP Jul, SP [facility] [address] [id number] [address] [place] [address], [place] [id number] SP Jul, SP [facility] [address] [id number] [address] [place] [address], [place] [address] SP Jul, SP [facility] [address] [id number] [address] [place] [address], [place] [id number] SP Jul, SP [facility] [address] [id number] [address] [place] [address], [place] [id number] SP Jul, SP [facility] [address] [id number] [address] [place] [address], [place] [id number] SP Jun, SP [facility] [address] [id number] [address] [place] [address], [place] [address] SP Jun, SP [facility] [address] [id number] [address] [place] [address], [place] [id number] SP May, SP [facility] [address] [id number] [address] [place] [address], [place] [id number] SP May, SP [facility] [address] [id number] [address] [place] [address], [place] [address] SP Apr, SP [facility] [address] [id number] [address] [place] [address], [place] [address] SP Apr, SP [facility] [address] [id number] [address] [place] [address], [place] [id number] SP Apr, SP [facility] [address] [id number] [address] [place] [address], [place] [id number] SP Apr, SP [facility] [address] [id number] [address] [place] [address], [place] [address] SP Apr, SP [facility] [address] [id number] [address] [place] [address], [place] [address] SP Mar, SP [facility] [address] [id number] [address] [place] [address], [place] [address] SP Mar, SP [facility] [address] [id number] [address] [place] [address], [place] [id number] SP Mar, SP [facility] [address] [id number] [address] [place] [address], [place] [address] SP Mar, SP [facility] [address] [id number] [address] [place] [address], [place] [id number] SP Mar, SP [facility] [address] [id number] [address] [place] [address], [place] [address] SP Mar, SP [facility] [address] [id number] [address] [place] [address], [place] [id number] SP Mar, SP [facility] [address] [id number] [address] [place] [address], [place] [id number] SP Feb, SP [facility] [address] [id number] [address] [place] [address], [place] [id number] SP Feb, SP [facility] [address] [id number] [address] [place] [address], [place] [address] SP Feb, SP [facility] [address] [id number] [address] [place] [address], [place] [id number] SP Feb, SP [facility] [address] [id number] [address] [place] [address], [place] [id number] SP Dec, SP [facility] [address] [id number] [address] [place] [address], [place] [address] SP Nov, SP [facility] [address] [id number] [address] [place] [address], [place] [id number] SP Nov, SP [facility] [address] [id number] [address] [place] [address], [place] [id number] SP Oct, SP [facility] [address] [id number] [address] [place] [address], [place] [address] SP Oct, SP [facility] [address] [id number] [address] [place] [address], [place] [id number] SP Oct, SP [facility] [address] [id number] [address] [place] [address], [place] [id number] SP Oct, SP [facility] [address] [id number] [address] [place] [address], [place] [id number] SP Oct, SP [facility] [address] [id number] [address] [place] [address], [place] [id number] SP Oct, SP [facility] [address] [id number] [address] [place] [address], [place] [address] SP Oct, SP [facility] [address] [id number] [address] [place] [address], [place] [address] SP Aug, SP [facility] [address] [id number] [address] [place] [address], [place] [address] SP Jul, SP [facility] [address] [id number] [facility] [place] [address] SP Jul, SP [facility] [address] [id number] [address] [place] [address], [place] [address] SP Jul, SP [facility] [address] [id number] [address] [place] [address], [place] [address] SP Jul, SP [facility] [address] [id number] [address] [place] [address], [place] [id number] SP Jul, SP [facility] [address] [id number] [address] [place] [address], [place] [address] SP Jul, SP [facility] [address] [id number] [address] [place] [address], [place] [id number] SP Jul, SP [facility] [address] [id number] [address] [place] [address], [place] [address] SP Jun, SP [facility] [address] [id number] [address] [place] [address], [place] [id number] SP May, SP [facility] [address] [id number] [address] [place] [address], [place] [address] SP May, SP [facility] [address] [id number] [address] [place] [address], [place] [address] SP May, SP [facility] [address] [id number] [address] [place] [address], [place] [address] SP Apr, SP [facility] [address] [id number] [address] [place] [address], [place] [address] SP Apr, SP [facility] [address] [id number] [address] [place] [address], [place] [address] SP Apr, SP [facility] [address] [id number] [address] [place] [address], [place] [address] SP Apr, SP [facility] [address] [id number] [address] [place] [address], [place] [address] SP Apr, SP [facility] [address] [id number] [address] [place] [address], [place] [address] SP Apr, SP [facility] [address] [id number] [address] [place] [address], [place] [address] SP Mar, SP [facility] [address] [id number] [address] [place] [address], [place] [address] SP Mar, SP [facility] [address] [id number] [address] [place] [address], [place] [address] SP Mar, SP [facility] [address] [id number] [address] [place] [address], [place] [address] SP Mar, SP [facility] [address] [id number] [address] [place] [address], [place] [address] SP Mar, SP [facility] [address] [id number] [address] [place] [address], [place] [address] SP Mar, SP [facility] [address] [id number] [address] [place] [address], [place] [id number] SP Mar, SP [facility] [address] [id number] [address] [place] [address], [place] [address] SP Dec, SP [facility] [address] [id number] [address] [place] [address], [place] [id number] SP Aug, SP [facility] [address] [id number] [address] [place] [address], [place] [address] SP Apr, SP [facility] [address] [id number] [address] [place] [address], [place] [address] SP Mar, SP [facility] [address] [id number] [address] [place] [address], [place] [address] SP Mar, SP [facility] [address] [id number] [address] [place] [address], [place] [address] SP Mar, SP [facility] [address] [id number] [address] [place] [id number] SP Mar, SP [facility] [address] [facility] [id number] [address] [place] [id number] SP September, SP [facility] [address] [facility] [id number] [address] [place] [id number] SP Mar, SP [facility] [address] [facility] [id number] [address] [place] [id number] SP Feb, SP [facility] [address] [facility] [id number] [address] [place] [id number] SP Oct, SP [facility] [address] [facility] [id number] [address] [place] [id number] SP September, SP [facility] [address] [facility] [id number] [address] [place] [id number] SP Apr, SP [facility] [address] [facility] [id number] [address] [place] [id number] SP Mar, SP IMMUNIZATIONS No Known Immunizations SOCIAL HISTORY Never Assessed REASON FOR VISIT [place] [place] VITAL SIGNS MEDICATIONS No [...] SP Surgical History heart cath 02/2018 SP Hospitalization History surgeries SP Hospitalization History chest pain/ abnormal stress test/ he art cath 02/08/2018 SP
--- OUTSIDE RECORDS SUMMARY | 2019-04-01 02:23 | XMS REPORT ---
Author Author Migration, Doctor POS Organization [facility] SP Address Unknown SP Phone Unavailable SP Care Team Providers Care Planning Director Name Role Phone POS Migration, Doctor Unavailable Unavailable SP PROBLEMS Type Condition ICD9-CM Code [id number] Code Onset Dates Condition S tatus SNOMED POS Problem Peripheral vascular disease I73.9 Ac tive [id number] POS Problem Urinary, incontinence, stress female N39.3 Active [id number] SP Problem Chronic kidney disease, unspecified N18.9 Active [id number] SP Problem Dysphagia, unspecified R13.10 Active 85000897 SP Problem Anemia of chronic disease D63.8 Acti ve [id number] SP Problem Cervicalgia M54.2 Active [id number] 98299 SP Problem Essential hypertension I10 Active 96022091 SP Problem 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 296102973 SP Problem Abdominal aortic aneurysm (AAA) without rupture I7 1.4 Active SP Problem Seasonal allergic rhinitis, unspecified allergic rhinitis trigger SP Active 860846560 SP Problem Prediabetes R73.03 Active 17824931 2 SP Problem Mixed hyperlipidemia E78.2 Active 481029593 SP Problem Stenosis of right renal artery I70.1 Active [id number] SP Problem Chronic obstructive pulmonary disease, unspecified COPD ty pe J44.9 SP 38302533 SP Problem Gastroesophageal reflux disease without esophagitis K21.9 Active SP Problem Hepatic steatosis K76.0 Active 19 8375868 SP Problem PVD (peripheral vascular disease) I73.9 Active 724109967 SP Problem Renal artery stenosis I70.1 Active 760799456 SP Problem Arthritis of knee M17.10 Active 37 1216770 SP Problem Other chronic pain G89.29 Active 8 1251242 SP ALLERGIES No Information ENCOUNTERS Encounter Location Date Diagnosis POS [facility] [address] [id number] [address] [place] [address] SP Jul, Contact dermatitis and other eczema, due to unspecified cause SP ; Morbid obesity E66.01 ; Essential hypertension I10 ; Chronic obstructive pulmonary disease, unspecified COPD type J44.9 ; Chronic kidney disease, unspecified N18.9 and Mixed hyperlipidemia E78.2 [facility] [address] SP Jul, Skin infection L08.9 and Mor bid obesity E66.01 SP [facility] [address] SP Jun, Cellulitis of right arm L03. 113 and BMI 45.0-49.9, adult Z68.42 SP [place] [address] [address] SP May, SP [place] [address] [address] SP May, Chronic obstructive pulmonar y disease, unspecified COPD type SP ; Viral upper respiratory tract infection J06.9 and BMI 45.0-49.9, adult Z68.42 [place] [address] [address] SP Mar, BMI 45.0-49.9, adult Z68.42 ; Chronic urticaria L50.8 and Skin SP L08.9 [place] [address] [address] SP Mar, Dermatitis L30.9 and BMI 45. 0-49.9, adult Z68.42 SP [place] [address] [address] SP Feb, Cellulitis of right upper ex tremity L03.113 and BMI 45.0-49.9, SP Z68.42 [place] [address] [address] SP Feb, Cellulitis of right arm L03. 113 and Status post cardiac SP Z98.890 [place] [address] [address] SP Feb, SP [place] [address] [place] [id number] [place] [address] SP Feb, Chronic obstructive pulmonar y disease, unspecified COPD type SP ; Essential hypertension I10 ; Encounter for immunization Z23 ; Mixed hyperlipidemia E78.2 and BMI 45.0-49.9, adult Z68.42 [place] [address] [place] [id number] [place] [address] SP Feb, Dysuria R30.0 ; Acute cystit is without hematuria N30.00 and BMI SP49.9, adult Z68.42 [place] [address] [place] [id number] [place] [address] SP Dec, SP [place] [address] [place] [id number] [place] [address] SP Dec, Essential hypertension I10 ; Chronic kidney disease, unspecified SP ; Mixed hyperlipidemia E78.2 ; Tinea corporis B35.4 ; Right hip pain M25.551 and Acute pain of right knee M25.561 [place] [address] [address] SP Dec, Herpes zoster without compli cation B02.9 ; Dandruff L21.0 ; SP unspecified type R19.7 and BMI 45.0-49.9, adult Z68.42 [place] [address] [address] SP September, Chronic kidney disease, unsp ecified N18.9 ; Essential SP I10 ; Mixed hyperlipidemia E78.2 and BMI 45.0-49.9, adult Z68.42 [place] [address] [address] SP September, SP [place] [address] [place] [id number] [place] [address] SP September, Essential hypertension I10 ; Chronic kidney disease, unspecified SP ; Prediabetes R73.03 ; Low back pain M54.5 ; Other chronic pain G89.29 ; Arthritis of knee M17.10 ; Pure hyperglyceridemia E78.1 ; Anemia of chronic disease D63.8 and BMI 45.0-49.9, adult Z68.42 [facility] [address] [address] SP Aug, SP [facility] [address] [address] SP Jul, Abdominal aortic aneurysm (A AA) without rupture I71.4 ; PVD SP vascular disease) I73.9 ; Renal artery stenosis I70.1 and Essential hypertension I10 [place] [address] [address] SP May, Essential hypertension I10 ; Pure hyperglyceridemia E78.1 ; SP aortic aneurysm (AAA) without rupture I71.4 ; Chronic kidney disease, unspecified N18.9 ; Gastroesophageal reflux disease without esophagitis K21.9 ; 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 ; Stenosis of right renal artery I70.1 ; Anemia of chronic disease D63.8 and Prediabetes R73.03 [facility] [address] [address] SP May, Tinea corporis B35.4 and Vir al URI J06.9 SP [facility] [address] [place] [id number] [place] [address] SP May, SP [facility] [address] [place] [id number] [place] [address] SP Apr, [facility] [address] [place] [id number] [place] [address] SP Apr, Cervical radiculopathy M54.1 2 SP [facility] [address] [place] [id number] [place] [address] SP Apr, Flank pain R10.9 and Acute p yelonephritis N10 SP [facility] [address] [address] SP Apr, [place] [address] [address] [facility] [id number] [address] [place] [address] SP Mar, [place] [address] [address] [facility] [id number] [address] [place] [address] SP Feb, Pain of right shoulder regio n M25.511 SP [place] [address] [place] [id number] [place] [address] SP Feb, History of glaucoma Z86.69 ; Vision changes H53.9 ; Abdominal SP aneurysm (AAA) without rupture I71.4 ; Xerosis of skin L85.3 and Pain in right shoulder M25.511 [place] [address] [place] [id number] [place] [address] SP Feb, [place] [address] [place] [id number] [place] [address] SP Jan, Essential hypertension I10 ; Pure hyperglyceridemia E78.1 ; SP kidney disease, unspecified N18.9 ; Gastroesophageal reflux disease without esophagitis K21.9 ; Idiopathic progressive neuropathy G60.3 ; Stenosis of right renal artery I70.1 ; Anemia of chronic disease D63.8 ; Prediabetes R73.03 ; Pain of right shoulder region M25.511 and Homeless Z59.0 [place] [address] [place] [id number] [place] [address] SP Jan, Neck pain M54.2 and Seasonal allergic rhinitis, unspecified SP rhinitis trigger J30.2 [place] [address] [facility] [id number] [address] [place] [address] SP Dec, [place] [address] [address] [facility] [id number] [address] [place] [address] SP Dec, [place] [address] [address] [facility] [id number] [address] [place] [address] SP Dec, Blood glucose abnormal R73.0 9 [...] H. pylori infection A04.8 and Prediabetes R73.03 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 ; Abdominal aortic aneurysm (AAA) without rupture I71.4 ; Stenosis of right renal artery I70.1 ; Anemia of chronic disease D63.8 and Acute non-recurrent maxillary sinusitis J01.00 [place] [address] [place] [id number] [place] [address] SP Jun, Acute non-recurrent maxillar y sinusitis J01.00 ; Acute mucoid SP media of left ear H65.112 ; Nausea R11.0 and Fever and chills R50.9 [place] [address] [place] [id number] [place] [address] SP May, Acute right flank pain R10.9 SP [place] [address] [place] [id number] [place] [address] SP Apr, Acute nasopharyngitis J00 ; Pure hyperglyceridemia E78.1 and SP kidney disease, unspecified N18.9 [place] [address] [place] [address] SP Apr, SP [facility] [address] [facility] [id number] [address] [place] [address] SP Apr, Blood glucose abnormal R73.0 9 ; Essential hypertension I10 ; Pure SPhyperglyceridemia E78.1 ; Chronic kidney disease, unspecified N18.9 ; Gastroesophageal reflux disease without esophagitis K21.9 ; 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 [address] [facility] [id number] [address] [place] [address] SP Feb, SP [facility] [address] [facility] [id number] [address] [place] [address] SP Feb, Dysuria R30.0 and Upper resp iratory tract infection, unspecified SP J06.9 [facility] [address] [facility] [id number] [address] [place] [address] SP Jan, SP [facility] [address] [facility] [id number] [address] [place] [address] SP Jan, SP [facility] [address] [facility] [id number] [address] [place] [address] SP Dec, SP [facility] [address] [facility] [id number] [address] [place] [address] SP Dec, Anemia of chronic disease D6 3.8 ; Essential hypertension I10 ; SP hyperglyceridemia E78.1 ; Chronic kidney disease, unspecified N18.9 ; Gastroesophageal reflux disease without esophagitis K21.9 ; 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 and Pain in right knee M25.561 [place] [address] [place] [id number] [place] [address] SP Dec, Left shoulder strain, subseq uent encounter S46.912D ; Urinary SP R35.0 ; Lung nodule, solitary R91.1 ; Essential hypertension I10 and Acute cystitis without hematuria N30.00 [place] [address] [address] SP Nov, Left-sided chest wall pain R 07.89 and Abnormal chest xray R93.8 SP [place] [address] [address] SP Nov, Pain of right lower extremit y M79.604 ; Swelling of right lower SP M79.89 ; Diarrhea, unspecified R19.7 ; Nausea with vomiting, unspecified R11.2 ; Left-sided chest wall pain R07.89 ; Chronic kidney disease, unspecified N18.9 ; Gastroesophageal reflux disease without esophagitis K21.9 and Other seasonal allergic rhinitis J30.2 [place] [address] [address] SP September, Essential hypertension I10 ; Chronic kidney disease, unspecified SP ; Anemia of chronic disease D63.8 ; Pure hyperglyceridemia E78.1 ; Peripheral vascular disease I73.9 ; Abnormal glucose R73.09 ; Idiopathic progressive neuropathy G60.3 ; Gastroesophageal reflux disease without esophagitis K21.9 ; Allergic rhinitis J30.9 and Rash R21 [place] [address] [place] [id number] [place] [address] SP Aug, Abdominal pain R10.9 and Con stipation K59.00 SP [place] [address] [address] SP Jul, Injury of toe on right foot S99.921A SP [place] [address] [address] SP 14 Jul, 2015 SP [place] [address] [facility] [id number] [address] [place] [address] SP Jul, Essential hypertension I10 ; Chronic kidney disease, unspecified SP ; Anemia of chronic disease D63.8 ; Pure hyperglyceridemia E78.1 ; Peripheral vascular disease I73.9 ; Abnormal glucose R73.09 ; Idiopathic progressive neuropathy G60.3 ; Gastroesophageal reflux disease without esophagitis K21.9 and Allergic rhinitis J30.9 [place] [address] [address] SP Jun, Low back pain M54.5 SP [place] [address] [place] [id number] [place] [address] SP Jun, SP [place] [address] [place] [id number] [place] [address] SP May, URI (upper respiratory infec tion) J06.9 SP [place] [address] [address] SP Apr, Essential hypertension I10 SP [place] [address] [address] SP Apr, Essential hypertension I10 ; Chronic kidney disease, unspecified SP ; Anemia of chronic disease D63.8 ; Pure hyperglyceridemia E78.1 ; Peripheral vascular disease I73.9 ; Abnormal glucose R73.09 ; URI (upper respiratory infection) J06.9 ; 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 ; Gastroesophageal reflux disease without esophagitis K21.9 and Cough R05 [place] [address] [place] [id number] [place] [address] SP Mar, Flank pain R10.9 and URI (up per respiratory infection) J06.9 SP [place] [address] [place] [id number] [place] [address] SP Mar, Right-sided low back pain wi thout sciatica M54.5 and Hematuria, SP R31.9 [place] [address] [address] SP Mar, Hypopigmentation L81.9 and H yperpigmentation L81.9 SP [place] [address] [address] SP Mar, SP [place] [address] [address] SP Mar, Acute cystitis with hematuri a N30.01 SP [facility] [address] [address] SP Mar, SP [place] [address] [address] SP Feb, Furuncle L02.92 ; Hypopigmen tation L81.9 ; Hyperpigmentation SP ; Urinary frequency R35.0 ; Screening for malignant neoplasm of cervix Z12.4 ; Vaginal discharge N89.8 ; Urinary, incontinence, stress female N39.3 and Vaginal irritation N89.8 [place] [address] [address] SP Jan, Muscle spasm 728.85 ; Unspec ified peripheral vascular disease SP ; Benign essential hypertension 401.1 ; Chronic renal insufficiency 585.9 ; Chronic constipation 564.00 ; GERD (gastroesophageal reflux disease) 530.81 ; Hyperlipidemia 272.4 and Chronic leg pain 729.5 [place] [address] [address] SP Jan, Sinusitis 473.9 SP [facility] [address] [address] SP Dec, SP [place] [address] [address] SP Dec, Acute bronchitis 466.0 SP [place] [address] [address] SP Dec, Acute bronchitis 466.0 SP [place] [address] [place] [id number] [place] [address] SP Dec, Unspecified episodic mood di sorder 296.90 SP [facility] [address] [address] SP Dec, Visit for suture removal V58 .32 SP [facility] [address] [address] SP Nov, Allergic rhinitis 477.9 and Onychomycosis 110.1 SP [place] [address] [address] SP Oct, Muscle spasm 728.85 ; Benign essential hypertension 401.1 ; SP renal insufficiency 585.9 ; Chronic constipation 564.00 ; GERD (gastroesophageal reflux disease) 530.81 and Hyperlipidemia 272.4 [place] [address] [address] SP Oct, Otalgia of left ear 388.70 SP [place] [address] [address] SP Oct, Unspecified episodic mood di sorder 296.90 [facility] [address] [address] SP September, Unspecified episodic mood di sorder 296.90 [place] [address] [address] SP September, Unspecified episodic mood di sorder 296.90 SP [facility] [address] SP September, Urinary frequency 788.41 and Constipation 564.00 SP [facility] [address] [address] SP Aug, [facility] [address] [place] [id number] [place] [address] SP Aug, SP [place] [address] [place] [address] SP Jul, SP [facility] [place] [facility] [address] [id number] [address] [place] [address], [place] [address] SP Jul, SP [facility] [place] [facility] [address] [id number] [address] [place] [address], [place] [address] SP Jul, SP [facility] [place] [facility] [address] [id number] [address] [place] [address], [place] [address] SP Jul, SP [facility] [place] [facility] [address] [id number] [address] [place] [address], [place] [address] SP Jul, SP [facility] [place] [facility] [address] [id number] [address] [place] [address], [place] [address] SP Jul, SP [facility] [place] [facility] [address] [id number] [address] [place] [address], [place] [address] SP Jul, SP [facility] [place] [facility] [address] [id number] [address] [place] [address], [place] [address] SP Jul, SP [facility] [place] [facility] [address] [id number] [address] [place] [address], [place] [address] SP Jul, SP [facility] [place] [facility] [address] [id number] [address] [place] [address], [place] [address] SP Jul, SP [facility] [place] [facility] [address] [id number] [address] [place] [address], [place] [address] SP Jun, SP [facility] [place] [facility] [address] [id number] [address] [place] [address], [place] [address] SP Jun, SP [facility] [place] [facility] [address] [id number] [address] [place] [address], [place] [address] SP May, SP [facility] [place] [facility] [address] [id number] [address] [place] [address], [place] [address] SP May, SP [facility] [place] [facility] [address] [id number] [address] [place] [address], [place] [address] SP May, SP [facility] [place] [facility] [address] [id number] [address] [place] [address], [place] [address] SP May, SP [facility] [place] [facility] [address] [id number] [address] [place] [address], [place] [address] SP May, SP [facility] [address] [id number] [address] [place] [address], [place] [address] SP May, SP [facility] [place] [facility] [address] [id number] [address] [place] [address], [place] [address] SP May, SP [facility] [place] [facility] [address] [id number] [address] [place] [address], [place] [address] SP May, SP [facility] [address] [id number] [address] [place] [address], [place] [address] SP May, SP [facility] [address] [id number] [address] [place] [address], [place] [address] SP May, SP [facility] [address] [id number] [address] [place] [address], [place] [address] SP May, SP [facility] [address] [id number] [address] [place] [address], [place] [address] SP May, SP [facility] [address] [id number] [address] [place] [address], [place] [address] SP May, SP [facility] [address] [id number] [address] [place] [address], [place] [address] SP Feb, SP [facility] [place] [facility] [address] [id number] [address] [place] [address], [place] [address] SP Feb, SP [facility] [place] [facility] [address] [id number] [address] [place] [address], [place] [address] SP Jan, SP [facility] [place] [facility] [address] [id number] [address] [place] [address], [place] [address] SP 20 Jan, 2014 SP [facility] [place] [facility] [address] [id number] [address] [place] [address], [place] [address] SP 18 Jan, 2013 SP [facility] [place] [facility] [address] [id number] [facility] [place] [address] SP 18 Jan, 2013 SP [facility] [place] [facility] [address] [id number] [facility] [address] SP 12 Jan, 2013 SP [facility] [place] [facility] [address] [id number] [address] [place] [address], [place] [address] SP 12 Jan, 2013 SP [facility] [place] [facility] [address] [id number] [address] [place] [address], [place] [address] SP 12 Jan, 2013 SP [facility] [place] [facility] [address] [id number] [address] [place] [address], [place] [address] SP Jan, 2013 SP [facility] [place] [facility] [address] [id number] [address] [place] [address], [place] [address] SP Jan, 2013 SP [facility] [place] [facility] [address] [id number] [address] [place] [address], [place] [address] SP Jan, 2013 SP [facility] [place] [facility] [address] [id number] [address] [place] [address], [place] [address] SP Jan, 2013 SP [facility] [place] [facility] [address] [id number] [address] [place] [address], [place] [address] SP Jan, 2013 SP [facility] [place] [facility] [address] [id number] [address] [place] [address], [place] [address] SP Oct, SP [facility] [place] [facility] [address] [id number] [address] [place] [address], [place] [address] SP Oct, SP [facility] [place] [facility] [address] [id number] [address] [place] [address], [place] [address] SP Oct, SP [facility] [place] [facility] [address] [id number] [address] [place] [address], [place] [address] SP Oct, SP [facility] [address] [id number] [address] [place] [address], [place] [address] SP Jun, SP [facility] [address] [id number] [address] [place] [address], [place] [address] SP Jun, SP [facility] [address] [id number] [address] [place] [address], [place] [address] SP Jun, SP [facility] [address] [id number] [address] [place] [address], [place] [address] SP Jun, SP [facility] [address] [id number] [address] [place] [address], [place] [address] SP Apr, SP [facility] [address] [id number] [address] [place] [address], [place] [address] SP Apr, SP [facility] [address] [id number] [address] [place] [address], [place] [address] SP Feb, SP [facility] [address] [id number] [address] [place] [address], [place] [address] SP Feb, SP [facility] [address] [id number] [address] [place] [address], [place] [address] SP Dec, SP [facility] [address] [id number] [address] [place] [address], [place] [address] SP Dec, SP [facility] [address] [id number] [address] [place] [address], [place] [address] SP Nov, SP [facility] [address] [id number] [address] [place] [address], [place] [address] SP Nov, SP [facility] [address] [id number] [address] [place] [address], [place] [address] SP Nov, SP [facility] [address] [id number] [address] [place] [address], [place] [address] SP Oct, SP [facility] [address] [id number] [address] [place] [address], [place] [address] SP September, SP [facility] [address] [id number] [address] [place] [address], [place] [address] SP September, SP [facility] [address] [id number] [facility] [address] SP Aug, SP [facility] [address] [id number] [address] [place] [address], [place] [address] SP Aug, SP [facility] [address] [id number] [address] [place] [address], [place] [address] SP Aug, SP [facility] [address] [id number] [address] [place] [address], [place] [address] SP Aug, SP [facility] [address] [id number] [address] [place] [address], [place] [address] SP Aug, SP [facility] [address] [id number] [address] [place] [address], [place] [address] SP Aug, SP [facility] [address] [id number] [address] [place] [address], [place] [address] SP Jul, SP [facility] [address] [id number] [address] [place] [address], [place] [address] SP Jul, SP [facility] [address] [id number] [address] [place] [address], [place] [address] SP Jul, SP [facility] [address] [id number] [address] [place] [address], [place] [address] SP Jul, SP [facility] [address] [id number] [address] [place] [address], [place] [address] SP Jul, SP [facility] [address] [id number] [address] [place] [address], [place] [address] SP Jul, SP [facility] [address] [id number] [address] [place] [address], [place] [address] SP Jun, SP [facility] [address] [id number] [address] [place] [address], [place] [address] SP Jun, SP [facility] [address] [id number] [address] [place] [address], [place] [address] SP May, SP [facility] [address] [id number] [address] [place] [address], [place] [address] SP May, SP [facility] [address] [id number] [address] [place] [address], [place] [address] SP Apr, SP [facility] [address] [id number] [address] [place] [address], [place] [address] SP Apr, SP [facility] [address] [id number] [address] [place] [address], [place] [address] SP Apr, SP [facility] [address] [id number] [address] [place] [address], [place] [address] SP Apr, SP [facility] [address] [id number] [address] [place] [address], [place] [address] SP Apr, SP [facility] [address] [id number] [address] [place] [address], [place] [address] SP Mar, SP [facility] [address] [id number] [address] [place] [address], [place] [address] SP Mar, SP [facility] [address] [id number] [address] [place] [address], [place] [address] SP Mar, SP [facility] [address] [id number] [address] [place] [address], [place] [address] SP Mar, SP [facility] [address] [id number] [address] [place] [address], [place] [address] SP Mar, SP [facility] [address] [id number] [address] [place] [address], [place] [address] SP Mar, SP [facility] [address] [id number] [address] [place] [address], [place] [address] SP Mar, SP [facility] [address] [id number] [address] [place] [address], [place] [address] SP Feb, SP [facility] [address] [id number] [address] [place] [address], [place] [address] SP Feb, SP [facility] [address] [id number] [address] [place] [address], [place] [address] SP Feb, SP [facility] [address] [id number] [address] [place] [address], [place] [address] SP Feb, SP [facility] [address] [id number] [address] [place] [address], [place] [address] SP Dec, SP [facility] [address] [id number] [address] [place] [address], [place] [address] SP Nov, SP [facility] [address] [id number] [address] [place] [address], [place] [address] SP Nov, SP [facility] [address] [id number] [address] [place] [address], [place] [address] SP Oct, SP [facility] [address] [id number] [address] [place] [address], [place] [address] SP Oct, SP [facility] [address] [id number] [address] [place] [address], [place] [address] SP Oct, SP [facility] [address] [id number] [address] [place] [address], [place] [address] SP Oct, SP [facility] [address] [id number] [address] [place] [address], [place] [address] SP Oct, SP [facility] [address] [id number] [address] [place] [address], [place] [address] SP Oct, SP [facility] [address] [id number] [address] [place] [address], [place] [address] SP Oct, SP [facility] [address] [id number] [address] [place] [address], [place] [address] SP Aug, SP [facility] [address] [id number] [address] [place] [address], [place] [address] SP Jul, SP [facility] [address] [id number] [facility] [address] SP Jul, SP [facility] [address] [id number] [address] [place] [address], [place] [address] SP Jul, SP [facility] [address] [id number] [address] [place] [address], [place] [address] SP Jul, SP [facility] [address] [id number] [address] [place] [address], [place] [address] SP Jul, SP [facility] [address] [id number] [address] [place] [address], [place] [address] SP Jul, SP [facility] [address] [id number] [address] [place] [address], [place] [address] SP Jul, SP [facility] [address] [id number] [address] [place] [address], [place] [address] SP Jun, SP [facility] [address] [id number] [address] [place] [address], [place] [address] SP May, SP [facility] [address] [id number] [address] [place] [address], [place] [address] SP May, SP [facility] [address] [id number] [address] [place] [address], [place] [address] SP May, SP [facility] [address] [id number] [address] [place] [address], [place] [address] SP Apr, SP [facility] [address] [id number] [address] [place] [address], [place] [address] SP Apr, SP [facility] [address] [id number] [address] [place] [address], [place] [address] SP Apr, SP [facility] [address] [id number] [address] [place] [address], [place] [address] SP Apr, SP [facility] [address] [id number] [address] [place] [address], [place] [address] SP Apr, SP [facility] [address] [id number] [address] [place] [address], [place] [address] SP Apr, SP [facility] [address] [id number] [address] [place] [address], [place] [address] SP Mar, SP [facility] [address] [id number] [address] [place] [address], [place] [address] SP Mar, SP [facility] [address] [id number] [address] [place] [address], [place] [address] SP Mar, SP [facility] [address] [id number] [address] [place] [address], [place] [address] SP Mar, SP [facility] [address] [id number] [address] [place] [address], [place] [address] SP Mar, SP [facility] [address] [id number] [address] [place] [address], [place] [address] SP Mar, SP [facility] [address] [id number] [address] [place] [address], [place] [address] SP Mar, SP [facility] [address] [id number] [address] [place] [address], [place] [address] SP Dec, SP [facility] [address] [id number] [address] [place] [address], [place] [address] SP Aug, SP [facility] [address] [id number] [address] [place] [address], [place] [address] SP Apr, SP [facility] [address] [id number] [address] [place] [address], [place] [address] SP Mar, SP [facility] [address] [id number] [address] [place] [address], [place] [address] SP Mar, SP [facility] [address] [id number] [address] [place] [address], [place] [address] SP Mar, SP [facility] [address] [id number] [address] [place] [address] SP Mar, SP [facility] [address] [facility] [id number] [address] [place] [address] SP September, SP [facility] [address] [facility] [id number] [address] [place] [address] SP Mar, SP [facility] [address] [facility] [id number] [address] [place] [address] SP Feb, SP [facility] [address] [facility] [id number] [address] [place] [address] SP Oct, SP [facility] [address] [facility] [id number] [address] [place] [address] SP September, SP [facility] [address] [facility] [id number] [address] [place] [address] SP Apr, SP [facility] [address] [facility] [id number] [address] [place] [address] SP Mar, SP IMMUNIZATIONS No Known Immunizations SOCIAL HISTORY Never Assessed [place] [place] VITAL SIGNS MEDICATIONS No [...]
--- OUTSIDE RECORDS SUMMARY | 2019-04-01 02:23 | XMS REPORT ---
Author Author Migration, Doctor POS Organization [facility] SP Address Unknown SP Phone Unavailable SP Care Team Providers Care [employer] Inspector Name Role Phone POS Migration, Doctor Unavailable Unavailable SP PROBLEMS Type Condition ICD9-CM Code TPN62-VH Code Onset Dates Condition S tatus SNOMED POS Problem Peripheral vascular disease I73.9 Ac tive [id number] POS Problem Urinary, incontinence, stress female N39.3 Active [id number] SP Problem Chronic kidney disease, unspecified N18.9 Active 407734358 SP Problem Dysphagia, unspecified R13.10 Active 57700551 SP Problem Anemia of chronic disease D63.8 Acti ve 488579190 SP Problem Cervicalgia M54.2 Active 12035763 49613 SP Problem Essential hypertension I10 Active 18270552 SP Problem 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 078476554 SP Problem Abdominal aortic aneurysm (AAA) without rupture I7 1.4 Active SP Problem Seasonal allergic rhinitis, unspecified allergic rhinitis trigger SP Active 899473408 SP Problem Prediabetes R73.03 Active 69633687 2 SP Problem Mixed hyperlipidemia E78.2 Active 456511335 SP Problem Stenosis of right renal artery I70.1 Active [id number] SP Problem Chronic obstructive pulmonary disease, unspecified COPD ty pe J44.9 SP 01356430 SP Problem Gastroesophageal reflux disease without esophagitis K21.9 Active SP Problem Hepatic steatosis K76.0 Active 19 3394450 SP Problem Renal artery stenosis I70.1 Active 543684094 SP Problem PVD (peripheral vascular disease) I73.9 Active 741192950 SP Problem Arthritis of knee M17.10 Active 37 8778814 SP Problem Other chronic pain G89.29 Active 8 2820206 SP ALLERGIES No Information ENCOUNTERS Encounter Location Date Diagnosis POS [facility] [address] [id number] [address] [place] [address] SP Jul, Contact dermatitis and other eczema, due to unspecified cause SP ; Morbid obesity E66.01 ; Essential hypertension I10 ; Chronic obstructive pulmonary disease, unspecified COPD type J44.9 ; Chronic kidney disease, unspecified N18.9 and Mixed hyperlipidemia E78.2 [facility] [address] SP Jul, Skin infection L08.9 and Mor bid obesity E66.01 SP [facility] [address] SP Jun, Cellulitis of right arm L03. 113 and BMI 45.0-49.9, adult Z68.42 SP [place] [address] [address] SP May, SP [place] [address] [address] SP May, Chronic obstructive pulmonar y disease, unspecified COPD type SP ; Viral upper respiratory tract infection J06.9 and BMI 45.0-49.9, adult Z68.42 [place] [address] [address] SP Mar, BMI 45.0-49.9, adult Z68.42 ; Chronic urticaria L50.8 and Skin SP L08.9 [place] [address] [address] SP Mar, Dermatitis L30.9 and BMI 45. 0-49.9, adult Z68.42 SP [place] [address] [address] SP Feb, Cellulitis of right upper ex tremity L03.113 and BMI 45.0-49.9, SP Z68.42 [place] [address] [address] SP Feb, Cellulitis of right arm L03. 113 and Status post cardiac SP Z98.890 [place] [address] [address] SP Feb, SP [place] [address] [place] [id number] [place] [address] SP Feb, Chronic obstructive pulmonar y disease, unspecified COPD type SP ; Essential hypertension I10 ; Encounter for immunization Z23 ; Mixed hyperlipidemia E78.2 and BMI 45.0-49.9, adult Z68.42 [place] [address] [place] [id number] [place] [address] SP Feb, Dysuria R30.0 ; Acute cystit is without hematuria N30.00 and BMI SP49.9, adult Z68.42 [place] [address] [place] [id number] [place] [address] SP Dec, SP [place] [address] [place] [id number] [place] [address] SP Dec, Essential hypertension I10 ; Chronic kidney disease, unspecified SP ; Mixed hyperlipidemia E78.2 ; Tinea corporis B35.4 ; Right hip pain M25.551 and Acute pain of right knee M25.561 [place] [address] [address] SP Dec, Herpes zoster without compli cation B02.9 ; Dandruff L21.0 ; SP unspecified type R19.7 and BMI 45.0-49.9, adult Z68.42 [place] [address] [address] SP September, Chronic kidney disease, unsp ecified N18.9 ; Essential SP I10 ; Mixed hyperlipidemia E78.2 and BMI 45.0-49.9, adult Z68.42 [place] [address] [address] SP September, SP [place] [address] [place] [id number] [place] [address] SP September, Essential hypertension I10 ; Chronic kidney disease, unspecified SP ; Prediabetes R73.03 ; Low back pain M54.5 ; Other chronic pain G89.29 ; Arthritis of knee M17.10 ; Pure hyperglyceridemia E78.1 ; Anemia of chronic disease D63.8 and BMI 45.0-49.9, adult Z68.42 [facility] [address] [address] SP Aug, SP [facility] [address] [address] SP Jul, Abdominal aortic aneurysm (A AA) without rupture I71.4 ; PVD SP vascular disease) I73.9 ; Renal artery stenosis I70.1 and Essential hypertension I10 [place] [address] [address] SP May, Essential hypertension I10 ; Pure hyperglyceridemia E78.1 ; SP aortic aneurysm (AAA) without rupture I71.4 ; Chronic kidney disease, unspecified N18.9 ; Gastroesophageal reflux disease without esophagitis K21.9 ; 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 ; Stenosis of right renal artery I70.1 ; Anemia of chronic disease D63.8 and Prediabetes R73.03 [facility] [address] [address] SP May, Tinea corporis B35.4 and Vir al URI J06.9 SP [facility] [address] [place] [id number] [place] [address] SP May, SP [facility] [address] [place] [id number] [place] [address] SP Apr, [facility] [address] [place] [id number] [place] [address] SP Apr, Cervical radiculopathy M54.1 2 SP [facility] [address] [place] [id number] [place] [address] SP Apr, Flank pain R10.9 and Acute p yelonephritis N10 SP [facility] [address] [address] SP Apr, [place] [address] [address] [facility] [id number] [address] [place] [address] SP Mar, [place] [address] [address] [facility] [id number] [address] [place] [address] SP Feb, Pain of right shoulder regio n M25.511 SP [place] [address] [place] [id number] [place] [address] SP Feb, History of glaucoma Z86.69 ; Vision changes H53.9 ; Abdominal SP aneurysm (AAA) without rupture I71.4 ; Xerosis of skin L85.3 and Pain in right shoulder M25.511 [place] [address] [place] [id number] [place] [address] SP Feb, [place] [address] [place] [id number] [place] [address] SP Jan, Essential hypertension I10 ; Pure hyperglyceridemia E78.1 ; SP kidney disease, unspecified N18.9 ; Gastroesophageal reflux disease without esophagitis K21.9 ; 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 ; Stenosis of right renal artery I70.1 ; Anemia of chronic disease D63.8 ; Prediabetes R73.03 ; Pain of right shoulder region M25.511 and Homeless Z59.0 [place] [address] [place] [id number] [place] [address] SP Jan, Neck pain M54.2 and Seasonal allergic rhinitis, unspecified SP rhinitis trigger J30.2 [place] [address] [address] [facility] [id number] [address] [place] [address] SP Dec, [place] [address] [address] [facility] [id number] [address] [place] [address] SP Dec, [place] [address] [address] [facility] [id number] [address] [place] [address] SP Dec, Blood glucose abnormal R73.0 9 [...] H. 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 ; Abdominal aortic aneurysm (AAA) without rupture I71.4 ; Stenosis of right renal artery I70.1 ; Anemia of chronic disease D63.8 and Acute non-recurrent maxillary sinusitis J01.00 [place] [address] [place] [id number] [place] [address] SP Jun, Acute non-recurrent maxillar y sinusitis J01.00 ; Acute mucoid SP media of left ear H65.112 ; Nausea R11.0 and Fever and chills R50.9 [place] [address] [place] [id number] [place] [address] SP May, Acute right flank pain R10.9 SP [place] [address] [place] [id number] [place] [address] SP Apr, Acute nasopharyngitis J00 ; Pure hyperglyceridemia E78.1 and SP kidney disease, unspecified N18.9 [place] [address] [place] [address] SP Apr, SP [facility] [address] [facility] [id number] [address] [place] [address] SP Apr, Blood glucose abnormal R73.0 9 ; Essential hypertension I10 ; Pure SPhyperglyceridemia E78.1 ; Chronic kidney disease, unspecified N18.9 ; Gastroesophageal reflux disease without esophagitis K21.9 ; 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 ; Abdominal aortic aneurysm (AAA) without rupture I71.4 ; Stenosis of right renal artery I70.1 ; RUQ pain R10.11 and Anemia of chronic disease D63.8 [facility] [address] [facility] [id number] [address] [place] [address] SP Mar, Blood glucose abnormal R73.0 9 SP [facility] [address] [facility] [id number] [address] [place] [address] SP Mar, Cellulitis of right lower le g L03.115 SP [facility] [address] [facility] [id number] [address] [place] [address] SP Feb, SP [facility] [address] [facility] [id number] [address] [place] [address] SP Feb, Dysuria R30.0 and Upper resp iratory tract infection, unspecified SP J06.9 [facility] [address] [facility] [id number] [address] [place] [phone] SP Jan, SP [facility] [address] [facility] [id number] [address] [place] [phone] SP Jan, SP [facility] [address] [facility] [id number] [address] [place] [address] SP Dec, SP [facility] [address] [facility] [id number] [address] [place] [address] SP Dec, Anemia of chronic disease D6 3.8 ; Essential hypertension I10 ; SP hyperglyceridemia E78.1 ; Chronic kidney disease, unspecified N18.9 ; Gastroesophageal reflux disease without esophagitis K21.9 ; 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 and Pain in right knee M25.561 [place] [address] [place] [id number] [place] [address] SP Dec, Left shoulder strain, subseq uent encounter S46.912D ; Urinary SP R35.0 ; Lung nodule, solitary R91.1 ; Essential hypertension I10 and Acute cystitis without hematuria N30.00 [place] [address] [address] SP Nov, Left-sided chest wall pain R 07.89 and Abnormal chest xray R93.8 SP [place] [address] [address] SP Nov, Pain of right lower extremit y M79.604 ; Swelling of right lower SP M79.89 ; Diarrhea, unspecified R19.7 ; Nausea with vomiting, unspecified R11.2 ; Left-sided chest wall pain R07.89 ; Chronic kidney disease, unspecified N18.9 ; Gastroesophageal reflux disease without esophagitis K21.9 and Other seasonal allergic rhinitis J30.2 [place] [address] [address] SP September, Essential hypertension I10 ; Chronic kidney disease, unspecified SP ; Anemia of chronic disease D63.8 ; Pure hyperglyceridemia E78.1 ; Peripheral vascular disease I73.9 ; Abnormal glucose R73.09 ; 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 ; Gastroesophageal reflux disease without esophagitis K21.9 ; Allergic rhinitis J30.9 and Rash R21 [place] [address] [place] [id number] [place] [address] SP Aug, Abdominal pain R10.9 and Con stipation K59.00 SP [place] [address] [address] SP Jul, Injury of toe on right foot S99.921A SP [place] [address] [address] SP 14 Jul, 2015 SP [place] [address] [address] [facility] [id number] [address] [place] [address] SP Jul, Essential hypertension I10 ; Chronic kidney disease, unspecified SP ; Anemia of chronic disease D63.8 ; Pure hyperglyceridemia E78.1 ; Peripheral vascular disease I73.9 ; Abnormal glucose R73.09 ; 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 ; Gastroesophageal reflux disease without esophagitis K21.9 and Allergic rhinitis J30.9 [place] [address] [address] SP Jun, Low back pain M54.5 SP [place] [address] [place] [id number] [place] [address] SP Jun, SP [place] [address] [place] [id number] [place] [address] SP May, URI (upper respiratory infec tion) J06.9 SP [place] [address] [address] SP Apr, Essential hypertension I10 SP [place] [address] [address] SP Apr, Essential hypertension I10 ; Chronic kidney disease, unspecified SP ; Anemia of chronic disease D63.8 ; Pure hyperglyceridemia E78.1 ; Peripheral vascular disease I73.9 ; Abnormal glucose R73.09 ; URI (upper respiratory infection) J06.9 ; 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 ; Gastroesophageal reflux disease without esophagitis K21.9 and Cough R05 [place] [address] [place] [id number] [place] [address] SP Mar, Flank pain R10.9 and URI (up per respiratory infection) J06.9 SP [place] [address] [place] [id number] [place] [address] SP Mar, Right-sided low back pain wi thout sciatica M54.5 and Hematuria, SP R31.9 [place] [address] [address] SP Mar, Hypopigmentation L81.9 and H yperpigmentation L81.9 SP [place] [address] [address] SP Mar, SP [place] [address] [address] SP Mar, Acute cystitis with hematuri a N30.01 SP [facility] [address] [address] SP Mar, SP [place] [address] [address] SP Feb, Furuncle L02.92 ; Hypopigmen tation L81.9 ; Hyperpigmentation SP ; Urinary frequency R35.0 ; Screening for malignant neoplasm of cervix Z12.4 ; Vaginal discharge N89.8 ; Urinary, incontinence, stress female N39.3 and Vaginal irritation N89.8 [place] [address] [address] SP Jan, Muscle spasm 728.85 ; Unspec ified peripheral vascular disease SP ; Benign essential hypertension 401.1 ; Chronic renal insufficiency 585.9 ; Chronic constipation 564.00 ; GERD (gastroesophageal reflux disease) 530.81 ; Hyperlipidemia 272.4 and Chronic leg pain 729.5 [place] [address] [address] SP Jan, Sinusitis 473.9 SP [facility] [address] [address] SP Dec, SP [place] [address] [address] SP Dec, Acute bronchitis 466.0 SP [place] [address] [address] SP Dec, Acute bronchitis 466.0 SP [place] [address] [place] [id number] [place] [address] SP Dec, Unspecified episodic mood di sorder 296.90 SP [facility] [address] [address] SP Dec, Visit for suture removal V58 .32 SP [facility] [address] [address] SP Nov, Allergic rhinitis 477.9 and Onychomycosis 110.1 SP [place] [address] [address] SP Oct, Muscle spasm 728.85 ; Benign essential hypertension 401.1 ; SP renal insufficiency 585.9 ; Chronic constipation 564.00 ; GERD (gastroesophageal reflux disease) 530.81 and Hyperlipidemia 272.4 [place] [address] [address] SP Oct, Otalgia of left ear 388.70 SP [place] [address] [address] SP Oct, Unspecified episodic mood di sorder 296.90 [facility] [address] [address] SP September, Unspecified episodic mood di sorder 296.90 [place] [address] [address] SP September, Unspecified episodic mood di sorder 296.90 SP [facility] [place] [address] SP September, Urinary frequency 788.41 and Constipation 564.00 SP [facility] [address] [address] SP Aug, [facility] [address] [place] [id number] [place] [address] SP Aug, SP [place] [address] [place] [address] SP Jul, SP [facility] [place] [facility] [address] [id number] [address] [place] [address], [place] [address] SP Jul, SP [facility] [place] [facility] [address] [id number] [address] [place] [address], [place] [address] SP Jul, SP [facility] [place] [facility] [address] [id number] [address] [place] [address], [place] [address] SP Jul, SP [facility] [place] [facility] [address] [id number] [address] [place] [address], [place] [address] SP Jul, SP [facility] [place] [facility] [address] [id number] [address] [place] [address], [place] [address] SP Jul, SP [facility] [place] [facility] [address] [id number] [address] [place] [address], [place] [address] SP Jul, SP [facility] [place] [facility] [address] [id number] [address] [place] [address], [place] [address] SP Jul, SP [facility] [place] [facility] [address] [id number] [address] [place] [address], [place] [address] SP Jul, SP [facility] [place] [facility] [address] [id number] [address] [place] [address], [place] [address] SP Jul, SP [facility] [place] [facility] [address] [id number] [address] [place] [address], [place] [address] SP Jun, SP [facility] [place] [facility] [address] [id number] [address] [place] [address], [place] [address] SP Jun, SP [facility] [place] [facility] [address] [id number] [address] [place] [address], [place] [address] SP May, SP [facility] [place] [facility] [address] [id number] [address] [place] [address], [place] [address] SP May, SP [facility] [place] [facility] [address] [id number] [address] [place] [address], [place] [address] SP May, SP [facility] [place] [facility] [address] [id number] [address] [place] [address], [place] [address] SP May, SP [facility] [place] [facility] [address] [id number] [address] [place] [address], [place] [address] SP May, SP [facility] [address] [id number] [address] [place] [address], [place] [address] SP May, SP [facility] [place] [facility] [address] [id number] [address] [place] [address], [place] [address] SP May, SP [facility] [place] [facility] [address] [id number] [address] [place] [address], [place] [address] SP May, SP [facility] [address] [id number] [address] [place] [address], [place] [address] SP May, SP [facility] [address] [id number] [address] [place] [address], [place] [address] SP May, SP [facility] [address] [id number] [address] [place] [address], [place] [address] SP May, SP [facility] [address] [id number] [address] [place] [address], [place] [address] SP May, SP [facility] [address] [id number] [address] [place] [address], [place] [address] SP May, SP [facility] [address] [id number] [address] [place] [address], [place] [address] SP Feb, SP [facility] [place] [facility] [address] [id number] [address] [place] [address], [place] [address] SP Feb, SP [facility] [place] [facility] [address] [id number] [address] [place] [address], [place] [address] SP Jan, SP [facility] [place] [facility] [address] [id number] [address] [place] [address], [place] [address] SP 20 Jan, 2014 SP [facility] [place] [facility] [address] [id number] [address] [place] [address], [place] [address] SP 18 Jan, 2013 SP [facility] [place] [facility] [address] [id number] [facility] [place] [address] SP 18 Jan, 2013 SP [facility] [place] [facility] [address] [id number] [facility] [place] [address] SP 12 Jan, 2013 SP [facility] [place] [facility] [address] [id number] [address] [place] [address], [place] [address] SP 12 Jan, 2013 SP [facility] [place] [facility] [address] [id number] [address] [place] [address], [place] [address] SP 12 Jan, 2013 SP [facility] [place] [facility] [address] [id number] [address] [place] [address], [place] [address] SP Jan, 2013 SP [facility] [place] [facility] [address] [id number] [address] [place] [address], [place] [address] SP Jan, 2013 SP [facility] [place] [facility] [address] [id number] [address] [place] [address], [place] [address] SP Jan, 2013 SP [facility] [place] [facility] [address] [id number] [address] [place] [address], [place] [address] SP Jan, 2013 SP [facility] [place] [facility] [address] [id number] [address] [place] [address], [place] [address] SP Jan, 2013 SP [facility] [place] [facility] [address] [id number] [address] [place] [address], [place] [address] SP Oct, SP [facility] [place] [facility] [address] [id number] [address] [place] [address], [place] [address] SP Oct, SP [facility] [place] [facility] [address] [id number] [address] [place] [address], [place] [address] SP Oct, SP [facility] [place] [facility] [address] [id number] [address] [place] [address], [place] [address] SP Oct, SP [facility] [place] [facility] [address] [id number] [address] [place] [address], [place] [address] SP Jun, SP [facility] [address] [id number] [address] [place] [address], [place] [address] SP Jun, SP [facility] [address] [id number] [address] [place] [address], [place] [address] SP Jun, SP [facility] [address] [id number] [address] [place] [address], [place] [address] SP Jun, SP [facility] [address] [id number] [address] [place] [address], [place] [address] SP Apr, SP [facility] [address] [id number] [address] [place] [address], [place] [address] SP Apr, SP [facility] [address] [id number] [address] [place] [address], [place] [address] SP Feb, SP [facility] [address] [id number] [address] [place] [address], [place] [address] SP Feb, SP [facility] [address] [id number] [address] [place] [address], [place] [address] SP Dec, SP [facility] [address] [id number] [address] [place] [address], [place] [address] SP Dec, SP [facility] [address] [id number] [address] [place] [address], [place] [address] SP Nov, SP [facility] [address] [id number] [address] [place] [address], [place] [address] SP Nov, SP [facility] [address] [id number] [address] [place] [address], [place] [address] SP Nov, SP [facility] [address] [id number] [address] [place] [address], [place] [address] SP Oct, SP [facility] [address] [id number] [address] [place] [address], [place] [address] SP September, SP [facility] [facility] [address] [id number] [address] [place] [address], [place] [address] SP September, SP [facility] [address] [id number] [facility] [place] [address] SP Aug, SP [facility] [address] [id number] [address] [place] [address], [place] [address] SP Aug, SP [facility] [address] [id number] [address] [place] [address], [place] [address] SP Aug, SP [facility] [address] [id number] [address] [place] [address], [place] [address] SP Aug, SP [facility] [address] [id number] [address] [place] [address], [place] [address] SP Aug, SP [facility] [address] [id number] [address] [place] [address], [place] [address] SP Aug, SP [facility] [address] [id number] [address] [place] [address], [place] [address] SP Jul, SP [facility] [address] [id number] [address] [place] [address], [place] [address] SP Jul, SP [facility] [address] [id number] [address] [place] [address], [place] [address] SP Jul, SP [facility] [address] [id number] [address] [place] [address], [place] [address] SP Jul, SP [facility] [address] [id number] [address] [place] [address], [place] [address] SP Jul, SP [facility] [address] [id number] [address] [place] [address], [place] [address] SP Jul, SP [facility] [address] [id number] [address] [place] [address], [place] [address] SP Jun, SP [facility] [address] [id number] [address] [place] [address], [place] [address] SP Jun, SP [facility] [address] [id number] [address] [place] [address], [place] [address] SP May, SP [facility] [address] [id number] [address] [place] [address], [place] [address] SP May, SP [facility] [address] [id number] [address] [place] [address], [place] [address] SP Apr, SP [facility] [address] [id number] [address] [place] [address], [place] [address] SP Apr, SP [facility] [address] [id number] [address] [place] [address], [place] [address] SP Apr, SP [facility] [address] [id number] [address] [place] [address], [place] [address] SP Apr, SP [facility] [address] [id number] [address] [place] [address], [place] [address] SP Apr, SP [facility] [address] [id number] [address] [place] [address], [place] [address] SP Mar, SP [facility] [address] [id number] [address] [place] [address], [place] [address] SP Mar, SP [facility] [address] [id number] [address] [place] [address], [place] [address] SP Mar, SP [facility] [address] [id number] [address] [place] [address], [place] [address] SP Mar, SP [facility] [address] [id number] [address] [place] [address], [place] [address] SP Mar, SP [facility] [address] [id number] [address] [place] [address], [place] [address] SP Mar, SP [facility] [address] [id number] [address] [place] [address], [place] [address] SP Mar, SP [facility] [address] [id number] [address] [place] [address], [place] [address] SP Feb, SP [facility] [address] [id number] [address] [place] [address], [place] [address] SP Feb, SP [facility] [address] [id number] [address] [place] [address], [place] [address] SP Feb, SP [facility] [address] [id number] [address] [place] [address], [place] [address] SP Feb, SP [facility] [address] [id number] [address] [place] [address], [place] [address] SP Dec, SP [facility] [address] [id number] [address] [place] [address], [place] [address] SP Nov, SP [facility] [address] [id number] [address] [place] [address], [place] [address] SP Nov, SP [facility] [address] [id number] [address] [place] [address], [place] [address] SP Oct, SP [facility] [address] [id number] [address] [place] [address], [place] [address] SP Oct, SP [facility] [address] [id number] [address] [place] [address], [place] [address] SP Oct, SP [facility] [address] [id number] [address] [place] [address], [place] [address] SP Oct, SP [facility] [address] [id number] [address] [place] [address], [place] [address] SP Oct, SP [facility] [address] [id number] [address] [place] [address], [place] [address] SP Oct, SP [facility] [address] [id number] [address] [place] [address], [place] [address] SP Oct, SP [facility] [address] [id number] [address] [place] [address], [place] [address] SP Aug, SP [facility] [address] [id number] [address] [place] [address], [place] [address] SP Jul, SP [facility] [address] [id number] [facility] [place] [address] SP Jul, SP [facility] [address] [id number] [address] [place] [address], [place] [address] SP Jul, SP [facility] [address] [id number] [address] [place] [address], [place] [address] SP Jul, SP [facility] [address] [id number] [address] [place] [address], [place] [address] SP Jul, SP [facility] [address] [id number] [address] [place] [address], [place] [address] SP Jul, SP [facility] [address] [id number] [address] [place] [address], [place] [address] SP Jul, SP [facility] [address] [id number] [address] [place] [address], [place] [address] SP Jun, SP [facility] [address] [id number] [address] [place] [address], [place] [address] SP May, SP [facility] [address] [id number] [address] [place] [address], [place] [address] SP May, SP [facility] [address] [id number] [address] [place] [address], [place] [address] SP May, SP [facility] [address] [id number] [address] [place] [address], [place] [address] SP Apr, SP [facility] [address] [id number] [address] [place] [address], [place] [address] SP Apr, SP [facility] [address] [id number] [address] [place] [address], [place] [address] SP Apr, SP [facility] [address] [id number] [address] [place] [address], [place] [address] SP Apr, SP [facility] [address] [id number] [address] [place] [address], [place] [address] SP Apr, SP [facility] [address] [id number] [address] [place] [address], [place] [address] SP Apr, SP [facility] [address] [id number] [address] [place] [address], [place] [address] SP Mar, SP [facility] [address] [id number] [address] [place] [address], [place] [address] SP Mar, SP [facility] [address] [id number] [address] [place] [address], [place] [address] SP Mar, SP [facility] [address] [id number] [address] [place] [address], [place] [address] SP Mar, SP [facility] [address] [id number] [address] [place] [address], [place] [address] SP Mar, SP [facility] [address] [id number] [address] [place] [address], [place] [address] SP Mar, SP [facility] [address] [id number] [address] [place] [address], [place] [address] SP Mar, SP [facility] [address] [id number] [address] [place] [address], [place] [address] SP Dec, SP [facility] [address] [id number] [address] [place] [address], [place] [address] SP Aug, SP [facility] [address] [id number] [address] [place] [address], [place] [address] SP Apr, SP [facility] [address] [id number] [address] [place] [address], [place] [address] SP Mar, SP [facility] [address] [id number] [address] [place] [address], [place] [address] SP Mar, SP [facility] [address] [id number] [address] [place] [address], [place] [address] SP Mar, SP [facility] [address] [id number] [address] [place] [place] [address] SP Mar, SP [facility] [address] [facility] [id number] [address] [place] [place] [address] SP September, SP [facility] [address] [facility] [id number] [address] [place] [place] [address] SP Mar, SP [facility] [address] [facility] [id number] [address] [place] [place] [address] SP Feb, SP [facility] [address] [facility] [id number] [address] [place] [place] [address] SP Oct, SP [facility] [address] [facility] [id number] [address] [place] [place] [address] SP September, SP [facility] [address] [facility] [id number] [address] [place] [place] [address] SP Apr, SP [facility] [address] [facility] [id number] [address] [place] [id number] SP Mar, SP IMMUNIZATIONS No Known Immunizations SOCIAL HISTORY Never Assessed REASON FOR VISIT EMR-[facility] PLAN OF CARE VITAL SIGNS MEDICATIONS No [...]
--- OUTSIDE RECORDS SUMMARY | 2019-04-01 02:24 | XMS REPORT ---
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 Name Role Phone POS Migration, Doctor Unavailable Unavailable SP PROBLEMS Type Condition ICD9-CM Code [id number] Code Onset Dates Condition S tatus SNOMED POS Problem Peripheral vascular disease I73.9 Ac tive [id number] POS Problem Urinary, incontinence, stress female N39.3 Active [id number] SP Problem Chronic kidney disease, unspecified N18.9 Active 734938373 SP Problem Dysphagia, unspecified R13.10 Active 53437172 SP Problem Anemia of chronic disease D63.8 Acti ve 620548988 SP Problem Cervicalgia M54.2 Active 80259937 75861 SP Problem Essential hypertension I10 Active 23840082 SP Problem 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 369133774 SP Problem Abdominal aortic aneurysm (AAA) without rupture I7 1.4 Active SP Problem Seasonal allergic rhinitis, unspecified allergic rhinitis trigger SP Active 926469801 SP Problem Prediabetes R73.03 Active 18531146 2 SP Problem Mixed hyperlipidemia E78.2 Active 149137020 SP Problem Stenosis of right renal artery I70.1 Active [id number] SP Problem Chronic obstructive pulmonary disease, unspecified COPD ty pe J44.9 SP 81783382 SP Problem Gastroesophageal reflux disease without esophagitis K21.9 Active SP Problem Hepatic steatosis K76.0 Active 19 5756256 SP Problem Renal artery stenosis I70.1 Active 302378547 SP Problem PVD (peripheral vascular disease) I73.9 Active 953348826 SP Problem Arthritis of knee M17.10 Active 37 8400770 SP Problem Other chronic pain G89.29 Active 8 2510008 SP ALLERGIES No Information ENCOUNTERS Encounter Location Date Diagnosis POS [facility] [address] [id number] [address] [place] [address] SP Jul, Contact dermatitis and other eczema, due to unspecified cause SP ; Morbid obesity E66.01 ; Essential hypertension I10 ; Chronic obstructive pulmonary disease, unspecified COPD type J44.9 ; Chronic kidney disease, unspecified N18.9 and Mixed hyperlipidemia E78.2 [facility] [address] SP Jul, Skin infection L08.9 and Mor bid obesity E66.01 SP [facility] [address] SP Jun, Cellulitis of right arm L03. 113 and BMI 45.0-49.9, adult Z68.42 SP [place] [address] [address] SP May, SP [place] [address] [address] SP May, Chronic obstructive pulmonar y disease, unspecified COPD type SP ; Viral upper respiratory tract infection J06.9 and BMI 45.0-49.9, adult Z68.42 [place] [address] [address] SP Mar, BMI 45.0-49.9, adult Z68.42 ; Chronic urticaria L50.8 and Skin SP L08.9 [place] [address] [address] SP Mar, Dermatitis L30.9 and BMI 45. 0-49.9, adult Z68.42 SP [place] [address] [address] SP Feb, Cellulitis of right upper ex tremity L03.113 and BMI 45.0-49.9, SP Z68.42 [place] [address] [address] SP Feb, Cellulitis of right arm L03. 113 and Status post cardiac SP Z98.890 [place] [address] [address] SP Feb, SP [place] [address] [place] [id number] [place] [address] SP Feb, Chronic obstructive pulmonar y disease, unspecified COPD type SP ; Essential hypertension I10 ; Encounter for immunization Z23 ; Mixed hyperlipidemia E78.2 and BMI 45.0-49.9, adult Z68.42 [place] [address] [place] [id number] [place] [address] SP Feb, Dysuria R30.0 ; Acute cystit is without hematuria N30.00 and BMI SP49.9, adult Z68.42 [place] [address] [place] [id number] [place] [address] SP Dec, SP [place] [address] [place] [id number] [place] [address] SP Dec, Essential hypertension I10 ; Chronic kidney disease, unspecified SP ; Mixed hyperlipidemia E78.2 ; Tinea corporis B35.4 ; Right hip pain M25.551 and Acute pain of right knee M25.561 [place] [address] [address] SP Dec, Herpes zoster without compli cation B02.9 ; Dandruff L21.0 ; SP unspecified type R19.7 and BMI 45.0-49.9, adult Z68.42 [place] [address] [address] SP September, Chronic kidney disease, unsp ecified N18.9 ; Essential SP I10 ; Mixed hyperlipidemia E78.2 and BMI 45.0-49.9, adult Z68.42 [place] [address] [address] SP September, SP [place] [address] [place] [id number] [place] [address] SP September, Essential hypertension I10 ; Chronic kidney disease, unspecified SP ; Prediabetes R73.03 ; Low back pain M54.5 ; Other chronic pain G89.29 ; Arthritis of knee M17.10 ; Pure hyperglyceridemia E78.1 ; Anemia of chronic disease D63.8 and BMI 45.0-49.9, adult Z68.42 [facility] [address] [address] SP Aug, SP [facility] [address] [address] SP Jul, Abdominal aortic aneurysm (A AA) without rupture I71.4 ; PVD SP vascular disease) I73.9 ; Renal artery stenosis I70.1 and Essential hypertension I10 [place] [address] [address] SP May, Essential hypertension I10 ; Pure hyperglyceridemia E78.1 ; SP aortic aneurysm (AAA) without rupture I71.4 ; Chronic kidney disease, unspecified N18.9 ; Gastroesophageal reflux disease without esophagitis K21.9 ; 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 ; Stenosis of right renal artery I70.1 ; Anemia of chronic disease D63.8 and Prediabetes R73.03 [facility] [address] [address] SP May, Tinea corporis B35.4 and Vir al URI J06.9 SP [facility] [address] [place] [id number] [address] [place] [address] SP May, SP [facility] [address] [place] [id number] [address] [place] [address] SP Apr, [facility] [address] [place] [id number] [address] [place] [address] SP Apr, Cervical radiculopathy M54.1 2 SP [facility] [address] [place] [id number] [place] [address] SP Apr, Flank pain R10.9 and Acute p yelonephritis N10 SP [facility] [address] [address] SP Apr, [place] [address] [facility] [id number] [address] [place] [address] SP Mar, [place] [address] [facility] [id number] [address] [place] [phone] SP Feb, Pain of right shoulder regio n M25.511 SP [place] [address] [place] [id number] [place] [address] SP Feb, History of glaucoma Z86.69 ; Vision changes H53.9 ; Abdominal SP aneurysm (AAA) without rupture I71.4 ; Xerosis of skin L85.3 and Pain in right shoulder M25.511 [place] [address] [place] [id number] [place] [address] SP Feb, [place] [address] [place] [id number] [place] [address] SP Jan, Essential hypertension I10 ; Pure hyperglyceridemia E78.1 ; SP kidney disease, unspecified N18.9 ; Gastroesophageal reflux disease without esophagitis K21.9 ; 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 ; Stenosis of right renal artery I70.1 ; Anemia of chronic disease D63.8 ; Prediabetes R73.03 ; Pain of right shoulder region M25.511 and Homeless Z59.0 [place] [address] [place] [id number] [place] [phone] SP Jan, Neck pain M54.2 and Seasonal allergic rhinitis, unspecified SP rhinitis trigger J30.2 [place] [address] [facility] [id number] [address] [place] [address] SP Dec, [place] [address] [facility] [id number] [address] [place] [address] SP Dec, [place] [address] [facility] [id number] [address] [place] [address] SP Dec, Blood glucose abnormal R73.0 9 [...] H. 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 ; Abdominal aortic aneurysm (AAA) without rupture I71.4 ; Stenosis of right renal artery I70.1 ; Anemia of chronic disease D63.8 and Acute non-recurrent maxillary sinusitis J01.00 [place] [address] [place] [id number] [place] [address] SP Jun, Acute non-recurrent maxillar y sinusitis J01.00 ; Acute mucoid SP media of left ear H65.112 ; Nausea R11.0 and Fever and chills R50.9 [place] [address] [place] [id number] [place] [address] SP May, Acute right flank pain R10.9 SP [place] [address] [place] [id number] [place] [phone] SP Apr, Acute nasopharyngitis J00 ; Pure hyperglyceridemia E78.1 and SP kidney disease, unspecified N18.9 [place] [address] [place] [address] SP Apr, SP [facility] [address] [facility] [id number] [address] [place] [address] SP Apr, Blood glucose abnormal R73.0 9 ; Essential hypertension I10 ; Pure SPhyperglyceridemia E78.1 ; Chronic kidney disease, unspecified N18.9 ; Gastroesophageal reflux disease without esophagitis K21.9 ; 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 ; Abdominal aortic aneurysm (AAA) without rupture I71.4 ; Stenosis of right renal artery I70.1 ; RUQ pain R10.11 and Anemia of chronic disease D63.8 [facility] [address] [facility] [id number] [address] [place] [phone] SP Mar, Blood glucose abnormal R73.0 9 SP [facility] [address] [facility] [id number] [address] [place] [phone] SP Mar, Cellulitis of right lower le g L03.115 SP [facility] [address] [facility] [id number] [address] [place] [address] SP Feb, SP [facility] [address] [facility] [id number] [address] [place] [phone] SP Feb, Dysuria R30.0 and Upper resp iratory tract infection, unspecified SP J06.9 [facility] [address] [facility] [id number] [address] [place] [address] SP Jan, SP [facility] [address] [facility] [id number] [address] [place] [phone] SP Jan, SP [facility] [address] [facility] [id number] [address] [place] [address] SP Dec, SP [facility] [address] [facility] [id number] [address] [place] [address] SP Dec, Anemia of chronic disease D6 3.8 ; Essential hypertension I10 ; SP hyperglyceridemia E78.1 ; Chronic kidney disease, unspecified N18.9 ; Gastroesophageal reflux disease without esophagitis K21.9 ; 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 and Pain in right knee M25.561 [place] [address] [place] [id number] [address] [place] [phone] SP Dec, Left shoulder strain, subseq uent encounter S46.912D ; Urinary SP R35.0 ; Lung nodule, solitary R91.1 ; Essential hypertension I10 and Acute cystitis without hematuria N30.00 [place] [address] [address] SP Nov, Left-sided chest wall pain R 07.89 and Abnormal chest xray R93.8 SP [place] [address] [address] SP Nov, Pain of right lower extremit y M79.604 ; Swelling of right lower SP M79.89 ; Diarrhea, unspecified R19.7 ; Nausea with vomiting, unspecified R11.2 ; Left-sided chest wall pain R07.89 ; Chronic kidney disease, unspecified N18.9 ; Gastroesophageal reflux disease without esophagitis K21.9 and Other seasonal allergic rhinitis J30.2 [place] [address] [address] SP September, Essential hypertension I10 ; Chronic kidney disease, unspecified SP ; Anemia of chronic disease D63.8 ; Pure hyperglyceridemia E78.1 ; Peripheral vascular disease I73.9 ; Abnormal glucose R73.09 ; 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 ; Gastroesophageal reflux disease without esophagitis K21.9 ; Allergic rhinitis J30.9 and Rash R21 [place] [address] [place] [id number] [address] [place] [phone] SP Aug, Abdominal pain R10.9 and Con stipation K59.00 SP [place] [address] [address] SP Jul, Injury of toe on right foot S99.921A SP [place] [address] [address] SP 14 Jul, 2015 SP [place] [address] [facility] [id number] [address] [place] [address] SP Jul, Essential hypertension I10 ; Chronic kidney disease, unspecified SP ; Anemia of chronic disease D63.8 ; Pure hyperglyceridemia E78.1 ; Peripheral vascular disease I73.9 ; Abnormal glucose R73.09 ; 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 ; Gastroesophageal reflux disease without esophagitis K21.9 and Allergic rhinitis J30.9 [place] [address] [address] SP Jun, Low back pain M54.5 SP [place] [address] [place] [id number] [place] [phone] SP Jun, SP [place] [address] [place] [id number] [place] [phone] SP May, URI (upper respiratory infec tion) J06.9 SP [place] [address] [address] SP Apr, Essential hypertension I10 SP [place] [address] [address] SP Apr, Essential hypertension I10 ; Chronic kidney disease, unspecified SP ; Anemia of chronic disease D63.8 ; Pure hyperglyceridemia E78.1 ; Peripheral vascular disease I73.9 ; Abnormal glucose R73.09 ; URI (upper respiratory infection) J06.9 ; 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 ; Gastroesophageal reflux disease without esophagitis K21.9 and Cough R05 [place] [address] [place] [id number] [place] [phone] SP Mar, Flank pain R10.9 and URI (up per respiratory infection) J06.9 SP [place] [address] [place] [id number] [place] [phone] SP Mar, Right-sided low back pain wi thout sciatica M54.5 and Hematuria, SP R31.9 [place] [address] [address] SP Mar, Hypopigmentation L81.9 and H yperpigmentation L81.9 SP [place] [address] [address] SP Mar, SP [place] [address] [address] SP Mar, Acute cystitis with hematuri a N30.01 SP [facility] [address] [address] SP Mar, SP [place] [address] [address] SP Feb, Furuncle L02.92 ; Hypopigmen tation L81.9 ; Hyperpigmentation SP ; Urinary frequency R35.0 ; Screening for malignant neoplasm of cervix Z12.4 ; Vaginal discharge N89.8 ; Urinary, incontinence, stress female N39.3 and Vaginal irritation N89.8 [place] [address] [address] SP Jan, Muscle spasm 728.85 ; Unspec ified peripheral vascular disease SP ; Benign essential hypertension 401.1 ; Chronic renal insufficiency 585.9 ; Chronic constipation 564.00 ; GERD (gastroesophageal reflux disease) 530.81 ; Hyperlipidemia 272.4 and Chronic leg pain 729.5 [place] [address] [address] SP Jan, Sinusitis 473.9 SP [facility] [address] [address] SP Dec, SP [place] [address] [address] SP Dec, Acute bronchitis 466.0 SP [place] [address] [address] SP Dec, Acute bronchitis 466.0 SP [place] [address] [place] [id number] [place] [address] SP Dec, Unspecified episodic mood di sorder 296.90 SP [facility] [address] [address] SP Dec, Visit for suture removal V58 .32 SP [facility] [address] [address] SP Nov, Allergic rhinitis 477.9 and Onychomycosis 110.1 SP [place] [address] [address] SP Oct, Muscle spasm 728.85 ; Benign essential hypertension 401.1 ; SP renal insufficiency 585.9 ; Chronic constipation 564.00 ; GERD (gastroesophageal reflux disease) 530.81 and Hyperlipidemia 272.4 [place] [address] [address] SP Oct, Otalgia of left ear 388.70 SP [place] [address] [address] SP Oct, Unspecified episodic mood di sorder 296.90 [facility] [address] [address] SP September, Unspecified episodic mood di sorder 296.90 [place] [address] [address] SP September, Unspecified episodic mood di sorder 296.90 SP [facility] [address] SP September, Urinary frequency 788.41 and Constipation 564.00 SP [facility] [address] [address] SP Aug, [facility] [address] [place] [id number] [place] [address] SP Aug, SP [place] [address] [place] [address] SP Jul, SP [facility] [place] [facility] [address] [id number] [address] [place] [address], [place] [address] SP Jul, SP [facility] [place] [facility] [address] [id number] [address] [place] [address], [place] [address] SP Jul, SP [facility] [place] [facility] [address] [id number] [address] [place] [address], [place] [address] SP Jul, SP [facility] [place] [facility] [address] [id number] [address] [place] [address], [place] [address] SP Jul, SP [facility] [place] [facility] [address] [id number] [address] [place] [address], [place] [address] SP Jul, SP [facility] [place] [facility] [address] [id number] [address] [place] [address], [place] [address] SP Jul, SP [facility] [place] [facility] [address] [id number] [address] [place] [address], [place] [address] SP Jul, SP [facility] [place] [facility] [address] [id number] [address] [place] [address], [place] [address] SP Jul, SP [facility] [place] [facility] [address] [id number] [address] [place] [address], [place] [address] SP Jul, SP [facility] [place] [facility] [address] [id number] [address] [place] [address], [place] [address] SP Jun, SP [facility] [place] [facility] [address] [id number] [address] [place] [address], [place] [address] SP Jun, SP [facility] [place] [facility] [address] [id number] [address] [place] [address], [place] [address] SP May, SP [facility] [place] [facility] [address] [id number] [address] [place] [address], [place] [address] SP May, SP [facility] [place] [facility] [address] [id number] [address] [place] [address], [place] [address] SP May, SP [facility] [place] [facility] [address] [id number] [address] [place] [address], [place] [address] SP May, SP [facility] [place] [facility] [address] [id number] [address] [place] [address], [place] [address] SP May, SP [facility] [address] [id number] [address] [place] [address], [place] [address] SP May, SP [facility] [place] [facility] [address] [id number] [address] [place] [address], [place] [address] SP May, SP [facility] [place] [facility] [address] [id number] [address] [place] [address], [place] [address] SP May, SP [facility] [address] [id number] [address] [place] [address], [place] [address] SP May, SP [facility] [address] [id number] [address] [place] [address], [place] [address] SP May, SP [facility] [address] [id number] [address] [place] [address], [place] [address] SP May, SP [facility] [address] [id number] [address] [place] [address], [place] [address] SP May, SP [facility] [address] [id number] [address] [place] [address], [place] [address] SP May, SP [facility] [address] [id number] [address] [place] [address], [place] [address] SP Feb, SP [facility] [place] [facility] [address] [id number] [address] [place] [address], [place] [address] SP Feb, SP [facility] [place] [facility] [address] [id number] [address] [place] [address], [place] [address] SP Jan, SP [facility] [place] [facility] [address] [id number] [address] [place] [address], [place] [address] SP 20 Jan, 2014 SP [facility] [place] [facility] [address] [id number] [address] [place] [address], [place] [address] SP 18 Jan, 2013 SP [facility] [place] [facility] [address] [id number] [facility] [place] [address] SP 18 Jan, 2013 SP [facility] [place] [facility] [address] [id number] [facility] [place] [address] SP 12 Jan, 2013 SP [facility] [place] [facility] [address] [id number] [address] [place] [address], [place] [address] SP 12 Jan, 2013 SP [facility] [place] [facility] [address] [id number] [address] [place] [address], [place] [address] SP 12 Jan, 2013 SP [facility] [place] [facility] [address] [id number] [address] [place] [address], [place] [address] SP Jan, 2013 SP [facility] [place] [facility] [address] [id number] [address] [place] [address], [place] [address] SP Jan, 2013 SP [facility] [place] [facility] [address] [id number] [address] [place] [address], [place] [address] SP Jan, 2013 SP [facility] [place] [facility] [address] [id number] [address] [place] [address], [place] [address] SP Jan, 2013 SP [facility] [place] [facility] [address] [id number] [address] [place] [address], [place] [address] SP Jan, 2013 SP [facility] [place] [facility] [address] [id number] [address] [place] [address], [place] [address] SP Oct, SP [facility] [place] [facility] [address] [id number] [address] [place] [address], [place] [address] SP Oct, SP [facility] [place] [facility] [address] [id number] [address] [place] [address], [place] [address] SP Oct, SP [facility] [place] [facility] [address] [id number] [address] [place] [address], [place] [address] SP Oct, SP [facility] [place] [facility] [address] [id number] [address] [place] [address], [place] [address] SP Jun, SP [facility] [place] [facility] [address] [id number] [address] [place] [address], [place] [address] SP Jun, SP [facility] [address] [id number] [address] [place] [address], [place] [address] SP Jun, SP [facility] [address] [id number] [address] [place] [address], [place] [address] SP Jun, SP [facility] [address] [id number] [address] [place] [address], [place] [address] SP Apr, SP [facility] [address] [id number] [address] [place] [address], [place] [address] SP Apr, SP [facility] [address] [id number] [address] [place] [address], [place] [address] SP Feb, SP [facility] [address] [id number] [address] [place] [address], [place] [address] SP Feb, SP [facility] [address] [id number] [address] [place] [address], [place] [id number] SP Dec, SP [facility] [address] [id number] [address] [place] [address], [place] [address] SP Dec, SP [facility] [address] [id number] [address] [place] [address], [place] [address] SP Nov, SP [facility] [address] [id number] [address] [place] [address], [place] [address] SP Nov, SP [facility] [address] [id number] [address] [place] [address], [place] [address] SP Nov, SP [facility] [address] [id number] [address] [place] [address], [place] [address] SP Oct, SP [facility] [address] [id number] [address] [place] [address], [place] [address] [place] September, SP [facility] [address] [id number] [address] [place] [address], [place] [address] SP September, SP [facility] [address] [id number] [facility] [place] [address] SP Aug, SP [facility] [address] [id number] [address] [place] [address], [place] [address] SP Aug, SP [facility] [address] [id number] [address] [place] [address], [place] [address] SP Aug, SP [facility] [address] [id number] [address] [place] [address], [place] [address] SP Aug, SP [facility] [address] [id number] [address] [place] [address], [place] [address] SP Aug, SP [facility] [address] [id number] [address] [place] [address], [place] [address] SP Aug, SP [facility] [address] [id number] [address] [place] [address], [place] [address] SP Jul, SP [facility] [address] [id number] [address] [place] [address], [place] [address] SP Jul, SP [facility] [address] [id number] [address] [place] [address], [place] [address] SP Jul, SP [facility] [address] [id number] [address] [place] [address], [place] [address] SP Jul, SP [facility] [address] [id number] [address] [place] [address], [place] [address] SP Jul, SP [facility] [address] [id number] [address] [place] [address], [place] [address] SP Jul, SP [facility] [address] [id number] [address] [place] [address], [place] [address] SP Jun, SP [facility] [address] [id number] [address] [place] [address], [place] [address] SP Jun, SP [facility] [address] [id number] [address] [place] [address], [place] [address] SP May, SP [facility] [address] [id number] [address] [place] [address], [place] [address] SP May, SP [facility] [address] [id number] [address] [place] [address], [place] [address] SP Apr, SP [facility] [address] [id number] [address] [place] [address], [place] [address] SP Apr, SP [facility] [address] [id number] [address] [place] [address], [place] [address] SP Apr, SP [facility] [address] [id number] [address] [place] [address], [place] [address] SP Apr, SP [facility] [address] [id number] [address] [place] [address], [place] [address] SP Apr, SP [facility] [address] [id number] [address] [place] [address], [place] [address] SP Mar, SP [facility] [address] [id number] [address] [place] [address], [place] [address] SP Mar, SP [facility] [address] [id number] [address] [place] [address], [place] [address] SP Mar, SP [facility] [address] [id number] [address] [place] [address], [place] [address] SP Mar, SP [facility] [address] [id number] [address] [place] [address], [place] [address] SP Mar, SP [facility] [address] [id number] [address] [place] [address], [place] [address] SP Mar, SP [facility] [address] [id number] [address] [place] [address], [place] [address] SP Mar, SP [facility] [address] [id number] [address] [place] [address], [place] [address] SP Feb, SP [facility] [address] [id number] [address] [place] [address], [place] [address] SP Feb, SP [facility] [address] [id number] [address] [place] [address], [place] [address] SP Feb, SP [facility] [address] [id number] [address] [place] [address], [place] [address] SP Feb, SP [facility] [address] [id number] [address] [place] [address], [place] [address] SP Dec, SP [facility] [address] [id number] [address] [place] [address], [place] [address] SP Nov, SP [facility] [address] [id number] [address] [place] [address], [place] [address] SP Nov, SP [facility] [address] [id number] [address] [place] [address], [place] [address] SP Oct, SP [facility] [address] [id number] [address] [place] [address], [place] [address] SP Oct, SP [facility] [address] [id number] [address] [place] [address], [place] [address] SP Oct, SP [facility] [address] [id number] [address] [place] [address], [place] [address] SP Oct, SP [facility] [address] [id number] [address] [place] [address], [place] [address] SP Oct, SP [facility] [address] [id number] [address] [place] [address], [place] [address] SP Oct, SP [facility] [address] [id number] [address] [place] [address], [place] [address] SP Oct, SP [facility] [address] [id number] [address] [place] [address], [place] [address] SP Aug, SP [facility] [address] [id number] [address] [place] [address], [place] [address] SP Jul, SP [facility] [address] [id number] [facility] [place] [address] SP Jul, SP [facility] [address] [id number] [address] [place] [address], [place] [address] SP Jul, SP [facility] [address] [id number] [address] [place] [address], [place] [address] SP Jul, SP [facility] [address] [id number] [address] [place] [address], [place] [address] SP Jul, SP [facility] [address] [id number] [address] [place] [address], [place] [address] SP Jul, SP [facility] [address] [id number] [address] [place] [address], [place] [address] SP Jul, SP [facility] [address] [id number] [address] [place] [address], [place] [address] SP Jun, SP [facility] [address] [id number] [address] [place] [address], [place] [address] SP May, SP [facility] [address] [id number] [address] [place] [address], [place] [address] SP May, SP [facility] [address] [id number] [address] [place] [address], [place] [address] SP May, SP [facility] [address] [id number] [address] [place] [address], [place] [address] SP Apr, SP [facility] [address] [id number] [address] [place] [address], [place] [address] SP Apr, SP [facility] [address] [id number] [address] [place] [address], [place] [address] SP Apr, SP [facility] [address] [id number] [address] [place] [address], [place] [address] SP Apr, SP [facility] [address] [id number] [address] [place] [address], [place] [address] SP Apr, SP [facility] [address] [id number] [address] [place] [address], [place] [address] SP Apr, SP [facility] [address] [id number] [address] [place] [address], [place] [address] SP Mar, SP [facility] [address] [id number] [address] [place] [address], [place] [address] SP Mar, SP [facility] [address] [id number] [address] [place] [address], [place] [address] SP Mar, SP [facility] [address] [id number] [address] [place] [address], [place] [address] SP Mar, SP [facility] [address] [id number] [address] [place] [address], [place] [address] SP Mar, SP [facility] [address] [id number] [address] [place] [address], [place] [address] SP Mar, SP [facility] [address] [id number] [address] [place] [address], [place] [address] SP Mar, SP [facility] [address] [id number] [address] [place] [address], [place] [address] SP Dec, SP [facility] [address] [id number] [address] [place] [address], [place] [address] SP Aug, SP [facility] [address] [id number] [address] [place] [address], [place] [address] SP Apr, SP [facility] [address] [id number] [address] [place] [address], [place] [address] SP Mar, SP [facility] [address] [id number] [address] [place] [address], [place] [address] SP Mar, SP [facility] [address] [id number] [address] [place] [address], [place] [address] SP Mar, SP [facility] [address] [id number] [address] [place] [id number] SP Mar, SP [facility] [address] [facility] [id number] [address] [place] [id number] SP September, SP [facility] [address] [facility] [place] [id number] [address] [place] [id number] SP Mar, SP [facility] [address] [facility] [place] [id number] [address] [place] [id number] SP Feb, SP [facility] [address] [facility] [place] [id number] [address] [place] [id number] SP Oct, SP [facility] [address] [facility] [place] [id number] [address] [place] [id number] SP September, SP [facility] [address] [facility] [place] [id number] [address] [place] [id number] SP Apr, SP [facility] [address] [facility] [place] [id number] [address] [place] [id number] SP Mar, SP IMMUNIZATIONS No Known Immunizations SOCIAL HISTORY Never Assessed REASON FOR VISIT EMR-[facility] PLAN OF CARE VITAL SIGNS MEDICATIONS No [...]
--- OUTSIDE RECORDS SUMMARY | 2019-04-01 02:25 | XMS REPORT ---
Author Author Migration, Doctor POS Organization [facility] SP Address Unknown SP Phone Unavailable SP Care Team Providers Care Assistant Community Manager Name Role Phone POS Migration, Doctor Unavailable Unavailable SP PROBLEMS Type Condition ICD9-CM Code [id number] Code Onset Dates Condition S tatus SNOMED POS Problem Peripheral vascular disease I73.9 Ac tive [id number] POS Problem Urinary, incontinence, stress female N39.3 Active [id number] SP Problem Chronic kidney disease, unspecified N18.9 Active 198016343 SP Problem Dysphagia, unspecified R13.10 Active 79322833 SP Problem Anemia of chronic disease D63.8 Acti ve [id number] SP Problem Cervicalgia M54.2 Active 93001317 61466 SP Problem Essential hypertension I10 Active 59025075 SP Problem 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 692068767 SP Problem Abdominal aortic aneurysm (AAA) without rupture I7 1.4 Active SP Problem Seasonal allergic rhinitis, unspecified allergic rhinitis trigger SP Active 760947743 SP Problem Prediabetes R73.03 Active 33174910 2 SP Problem Mixed hyperlipidemia E78.2 Active 845134734 SP Problem Stenosis of right renal artery I70.1 Active [id number] SP Problem Chronic obstructive pulmonary disease, unspecified COPD ty pe J44.9 SP 30116120 SP Problem Gastroesophageal reflux disease without esophagitis K21.9 Active SP Problem Hepatic steatosis K76.0 Active 19 3960627 SP Problem Renal artery stenosis I70.1 Active 199808620 SP Problem PVD (peripheral vascular disease) I73.9 Active 878595723 SP Problem Arthritis of knee M17.10 Active 37 2989253 SP Problem Other chronic pain G89.29 Active 8 2295624 SP ALLERGIES No Information ENCOUNTERS Encounter Location Date Diagnosis POS [facility] [address] [facility] [id number] [address] [place] [phone] SP Aug, SP [facility] [address] [facility] [id number] [address] [place] [address] SP Jul, Contact dermatitis and other eczema, due to unspecified cause SP ; Morbid obesity E66.01 ; Essential hypertension I10 ; Chronic obstructive pulmonary disease, unspecified COPD type J44.9 ; Chronic kidney disease, unspecified N18.9 and Mixed hyperlipidemia E78.2 [facility] WALK IN [facility] [address] [place] [id number] [place] [address] SP Jul, Skin infection L08.9 and Mor bid obesity E66.01 SP [facility] WALK IN [facility] [address] SP Jun, Cellulitis of right arm L03. 113 and BMI 45.0-49.9, adult Z68.42 SP [place] [address] [address] SP May, SP [place] [address] [place] [id number] [place] [address] SP May, Chronic obstructive pulmonar y disease, unspecified COPD type SP ; Viral upper respiratory tract infection J06.9 and BMI 45.0-49.9, adult Z68.42 [place] [address] [address] SP Mar, BMI 45.0-49.9, adult Z68.42 ; Chronic urticaria L50.8 and Skin SP L08.9 [place] [address] [place] [id number] [place] [address] SP Mar, Dermatitis L30.9 and BMI 45. 0-49.9, adult Z68.42 SP [place] [address] [place] [id number] [place] [address] SP Feb, Cellulitis of right upper ex tremity L03.113 and BMI 45.0-49.9, SP Z68.42 [place] [address] [place] [id number] [place] [address] SP Feb, Cellulitis of right arm L03. 113 and Status post cardiac SP Z98.890 [place] [address] [address] SP Feb, SP [place] [address] [address] SP Feb, Chronic obstructive pulmonar y disease, unspecified COPD type SP ; Essential hypertension I10 ; Encounter for immunization Z23 ; Mixed hyperlipidemia E78.2 and BMI 45.0-49.9, adult Z68.42 [place] [address] [address] SP Feb, Dysuria R30.0 ; Acute cystit is without hematuria N30.00 and BMI SP49.9, adult Z68.42 [place] [address] [address] SP Dec, SP [place] [address] [address] SP Dec, Essential hypertension I10 ; Chronic kidney disease, unspecified SP ; Mixed hyperlipidemia E78.2 ; Tinea corporis B35.4 ; Right hip pain M25.551 and Acute pain of right knee M25.561 [place] [address] [address] SP Dec, Herpes zoster without compli cation B02.9 ; Dandruff L21.0 ; SP unspecified type R19.7 and BMI 45.0-49.9, adult Z68.42 [place] [address] [address] SP September, Chronic kidney disease, unsp ecified N18.9 ; Essential SP I10 ; Mixed hyperlipidemia E78.2 and BMI 45.0-49.9, adult Z68.42 [place] [address] [address] SP September, SP [place] [address] [address] SP September, Essential hypertension I10 ; Chronic kidney disease, unspecified SP ; Prediabetes R73.03 ; Low back pain M54.5 ; Other chronic pain G89.29 ; Arthritis of knee M17.10 ; Pure hyperglyceridemia E78.1 ; Anemia of chronic disease D63.8 and BMI 45.0-49.9, adult Z68.42 [place] [address] [address] SP Aug, SP [facility] [address] [address] SP Jul, Abdominal aortic aneurysm (A AA) without rupture I71.4 ; PVD SP vascular disease) I73.9 ; Renal artery stenosis I70.1 and Essential hypertension I10 [place] [address] [address] SP May, Essential hypertension I10 ; Pure hyperglyceridemia E78.1 ; SP aortic aneurysm (AAA) without rupture I71.4 ; Chronic kidney disease, unspecified N18.9 ; Gastroesophageal reflux disease without esophagitis K21.9 ; 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 ; Stenosis of right renal artery I70.1 ; Anemia of chronic disease D63.8 and Prediabetes R73.03 [facility] [address] [place] [id number] [place] [address] SP May, Tinea corporis B35.4 and Vir al URI J06.9 SP [place] [address] [place] [id number] [place] [address] SP May, [facility] [id number] [place] [address] SP Apr, [place] [address] [place] [id number] [place] [address] SP Apr, Cervical radiculopathy M54.1 2 SP [facility] WALK IN [facility] [address] SP Apr, Flank pain R10.9 and Acute p yelonephritis N10 SP [place] [id number] [facility] [id number] [address] [place] [address] SP Apr, SP [place] [address] [facility] [id number] [address] [place] [address] SP Mar, SP [facility] [address] [place] [id number] [place] [address] SP Feb, Pain of right shoulder regio n M25.511 SP [place] [address] [place] [id number] [place] [address] SP Feb, History of glaucoma Z86.69 ; Vision changes H53.9 ; Abdominal SP aneurysm (AAA) without rupture I71.4 ; Xerosis of skin L85.3 and Pain in right shoulder M25.511 [place] [address] [address] SP Feb, SP [place] [address] [address] SP Jan, Essential hypertension I10 ; Pure hyperglyceridemia E78.1 ; SP kidney disease, unspecified N18.9 ; Gastroesophageal reflux disease without esophagitis K21.9 ; 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 ; Stenosis of right renal artery I70.1 ; Anemia of chronic disease D63.8 ; Prediabetes R73.03 ; Pain of right shoulder region M25.511 and Homeless Z59.0 [place] [address] [address] SP Jan, Neck pain M54.2 and Seasonal allergic rhinitis, unspecified SP rhinitis trigger J30.2 [place] [address] [place] [id number] [place] [address] SP Dec, SP [place] [address] [place] [id number] [place] [phone] SP Dec, [place] [address] [address] SP Dec, Blood glucose abnormal R73.0 9 [...] pylori infection A04.8 and Prediabetes R73.03 [facility] IN [facility] [address] SP Oct, Seasonal allergic rhinitis, unspecified allergic rhinitis SP J30.[address] [address] SP September, Eustachian tube dysfunction, left H69.82 and Candidiasis of SP B37.[address] [address] SP Jul, Blood glucose abnormal R73.0 9 ; Essential hypertension I10 ; Pure SPhyperglyceridemia E78.1 ; Chronic kidney disease, unspecified N18.9 ; Gastroesophageal reflux disease without esophagitis K21.9 ; 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 ; Abdominal aortic aneurysm (AAA) without rupture I71.4 ; Stenosis of right renal artery I70.1 ; Anemia of chronic disease D63.8 and Acute non-recurrent maxillary sinusitis J01.[address] [address] SP Jun, Acute non-recurrent maxillar y sinusitis J01.00 ; Acute mucoid SP media of left ear H65.112 ; Nausea R11.0 and Fever and chills R50.9 [place] [address] [address] SP May, Acute right flank pain R10.9 SP [place] [address] [address] SP Apr, Acute nasopharyngitis J00 ; Pure hyperglyceridemia E78.1 and SP kidney disease, unspecified N18.9 [facility] [address] [id number] [address] [place] [address] SP Apr, SP [facility] [address] [facility] [id number] [address] [place] [address] SP Apr, Blood glucose abnormal R73.0 9 ; Essential hypertension I10 ; Pure SPhyperglyceridemia E78.1 ; Chronic kidney disease, unspecified N18.9 ; Gastroesophageal reflux disease without esophagitis K21.9 ; 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 ; Abdominal aortic aneurysm (AAA) without rupture I71.4 ; Stenosis of right renal artery I70.1 ; RUQ pain R10.11 and Anemia of chronic disease D63.8 [facility] [address] [facility] [id number] [address] [place] [phone] SP Mar, Blood glucose abnormal R73.0 9 SP [facility] [address] [facility] [id number] [address] [place] [address] SP Mar, Cellulitis of right lower le g L03.115 SP [facility] IN [facility] [address] [id number] [address] [place] [address] SP Feb, SP [facility] [address] [facility] [id number] [address] [place] [phone] SP Feb, Dysuria R30.0 and Upper resp iratory tract infection, unspecified SP J06.9 [facility] [address] [facility] [id number] [address] [place] [phone] SP Jan, SP [facility] [address] [facility] [id number] [address] [place] [address] SP Jan, SP [facility] [address] [facility] [id number] [address] [place] [phone] SP Dec, [facility] [address] [facility] [id number] [address] [place] [address] SP Dec, Anemia of chronic disease D6 3.8 ; Essential hypertension I10 ; SP hyperglyceridemia E78.1 ; Chronic kidney disease, unspecified N18.9 ; Gastroesophageal reflux disease without esophagitis K21.9 ; 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7 ; Nausea with vomiting, unspecified R11.2 ; Left-sided chest wall pain R07.89 ; Chronic kidney disease, unspecified N18.9 ; Gastroesophageal reflux disease without esophagitis K21.9 and Other seasonal allergic rhinitis J30.2 [place] [address] [place] [id number] [place] [phone] SP September, Essential hypertension I10 ; Chronic kidney disease, unspecified SP ; Anemia of chronic disease D63.8 ; Pure hyperglyceridemia E78.1 ; Peripheral vascular disease I73.9 ; Abnormal glucose R73.09 ; 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 ; Gastroesophageal reflux disease without esophagitis K21.9 ; Allergic rhinitis J30.9 and Rash R21 [place] [address] [place] [id number] [place] [phone] SP Aug, Abdominal pain R10.9 and Con stipation K59.00 SP [place] [address] [place] [id number] [place] [phone] SP Jul, Injury of toe on right foot S99.921A SP [place] [address] [facility] [id number] [address] [place] [phone] SP Jul, SP [place] [address] [place] [id number] [place] [address] SP Jul, Essential hypertension I10 ; Chronic kidney disease, unspecified SP ; Anemia of chronic disease D63.8 ; Pure hyperglyceridemia E78.1 ; Peripheral vascular disease I73.9 ; Abnormal glucose R73.09 ; 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 ; Gastroesophageal reflux disease without esophagitis K21.9 and Allergic rhinitis J30.9 [place] [address] [place] [id number] [place] [phone] SP Jun, Low back pain M54.5 SP [place] [address] [place] [id number] [place] [address] SP Jun, SP [place] [address] [address] SP May, URI (upper respiratory infec tion) J06.9 SP [place] [address] [address] SP Apr, Essential hypertension I10 SP [place] [address] [place] [id number] [place] [address] SP Apr, Essential hypertension I10 ; Chronic kidney disease, unspecified SP ; Anemia of chronic disease D63.8 ; Pure hyperglyceridemia E78.1 ; Peripheral vascular disease I73.9 ; Abnormal glucose R73.09 ; URI (upper respiratory infection) J06.9 ; 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 ; Gastroesophageal reflux disease without esophagitis K21.9 and Cough R05 [place] [address] [place] [id number] [place] [phone] SP Mar, Flank pain R10.9 and URI (up per respiratory infection) J06.9 SP [place] [address] [place] [id number] [place] [address] SP Mar, Right-sided low back pain wi thout sciatica M54.5 and Hematuria, SP R31.9 [facility] [address] [address] SP Mar, Hypopigmentation L81.9 and H yperpigmentation L81.9 SP [facility] [address] [address] SP Mar, SP [facility] [address] [address] SP Mar, Acute cystitis with hematuri a N30.01 SP [place] [address] [address] SP Mar, SP [place] [address] [address] SP Feb, Furuncle L02.92 ; Hypopigmen tation L81.9 ; Hyperpigmentation SP ; Urinary frequency R35.0 ; Screening for malignant neoplasm of cervix Z12.4 ; Vaginal discharge N89.8 ; Urinary, incontinence, stress female N39.3 and Vaginal irritation N89.8 [place] [address] [address] SP Jan, Muscle spasm 728.85 ; Unspec ified peripheral vascular disease SP ; Benign essential hypertension 401.1 ; Chronic renal insufficiency 585.9 ; Chronic constipation 564.00 ; GERD (gastroesophageal reflux disease) 530.81 ; Hyperlipidemia 272.4 and Chronic leg pain 729.5 [facility] [address] [place] [id number] [place] [address] SP Jan, Sinusitis 473.9 SP [place] [address] [address] SP Dec, SP [facility] [address] [place] [id number] [place] [address] SP Dec, Acute bronchitis 466.0 SP [place] [address] [place] [id number] [place] [address] SP Dec, Acute bronchitis 466.0 SP [place] [address] [address] SP Dec, Unspecified episodic mood di sorder 296.90 SP [place] [address] [address] SP Dec, Visit for suture removal V58 .32 SP [place] [address] [address] SP Nov, Allergic rhinitis 477.9 and Onychomycosis 110.1 SP [place] [address] [address] SP Oct, Muscle spasm 728.85 ; Benign essential hypertension 401.1 ; SP renal insufficiency 585.9 ; Chronic constipation 564.00 ; GERD (gastroesophageal reflux disease) 530.81 and Hyperlipidemia 272.4 [place] [address] [place] [id number] [place] [address] SP Oct, Otalgia of left ear 388.70 SP [place] [address] [address] SP Oct, Unspecified episodic mood di sorder 296.90 SP [place] [address] [place] [id number] [place] [address] SP September, Unspecified episodic mood di sorder 296.90 SP [place] [address] [place] [id number] [place] [address] SP September, Unspecified episodic mood di sorder 296.90 SP [facility] [address] SP September, Urinary frequency 788.41 and Constipation 564.00 SP [place] [address] [place] [id number] [place] [phone] SP Aug, SP [place] [address] [place] [address] SP Aug, SP [facility] [place] [facility] [address] [id number] [address] [place] [address], [place] [address] SP Jul, SP [facility] [place] [facility] [address] [id number] [address] [place] [address], [place] [address] SP Jul, SP [facility] [place] [facility] [address] [id number] [address] [place] [address], [place] [address] SP Jul, SP [facility] [place] [facility] [address] [id number] [address] [place] [address], [place] [address] SP Jul, SP [facility] [place] [facility] [address] [id number] [address] [place] [address], [place] [address] SP Jul, SP [facility] [place] [facility] [address] [id number] [address] [place] [address], [place] [address] SP Jul, SP [facility] [place] [facility] [address] [id number] [address] [place] [address], [place] [address] SP Jul, SP [facility] [place] [facility] [address] [id number] [address] [place] [address], [place] [address] SP Jul, SP [facility] [place] [facility] [address] [id number] [address] [place] [address], [place] [address] SP Jul, SP [facility] [place] [facility] [address] [id number] [address] [place] [address], [place] [address] SP Jul, SP [facility] [place] [facility] [address] [id number] [address] [place] [address], [place] [address] SP Jun, SP [facility] [place] [facility] [address] [id number] [address] [place] [address], [place] [address] SP Jun, SP [facility] [place] [facility] [address] [id number] [address] [place] [address], [place] [address] SP May, SP [facility] [place] [facility] [address] [id number] [address] [place] [address], [place] [address] SP May, SP [facility] [place] [facility] [address] [id number] [address] [place] [address], [place] [address] SP May, SP [facility] [address] [id number] [address] [place] [address], [place] [address] SP May, SP [facility] [address] [id number] [address] [place] [address], [place] [address] SP May, SP [facility] [place] [facility] [address] [id number] [address] [place] [address], [place] [address] SP May, SP [facility] [place] [facility] [address] [id number] [address] [place] [address], [place] [address] SP May, SP [facility] [address] [id number] [address] [place] [address], [place] [address] SP May, SP [facility] [address] [id number] [address] [place] [address], [place] [address] SP May, SP [facility] [address] [id number] [address] [place] [address], [place] [address] SP May, SP [facility] [address] [id number] [address] [place] [address], [place] [address] SP May, SP [facility] [address] [id number] [address] [place] [address], [place] [address] SP May, SP [facility] [address] [id number] [address] [place] [address], [place] [address] SP May, SP [facility] [address] [id number] [address] [place] [address], [place] [address] SP Feb, SP [facility] [place] [facility] [address] [id number] [address] [place] [address], [place] [address] SP Feb, SP [facility] [place] [facility] [address] [id number] [address] [place] [address], [place] [address] SP Jan, SP [facility] [place] [facility] [address] [id number] [address] [place] [address], [place] [address] SP Jan, 2013 SP [facility] [place] [facility] [address] [id number] [facility] [address] SP 18 Sep, 2013 SP [facility] [place] [facility] [address] [id number] [facility] [address] SP 18 Jan, 2013 SP [facility] [place] [facility] [address] [id number] [address] [place] [address], [place] [address] SP 12 Jan, 2013 SP [facility] [place] [facility] [address] [id number] [address] [place] [address], [place] [address] SP 12 Jan, 2013 SP [facility] [place] [facility] [address] [id number] [address] [place] [address], [place] [address] SP 12 Jan, 2013 SP [facility] [place] [facility] [address] [id number] [address] [place] [address], [place] [address] SP 12 Jan, 2013 SP [facility] [address] [id number] [address] [place] [address], [place] [address] SP 11 Jan, 2013 SP [facility] [address] [id number] [address] [place] [address], [place] [address] SP 11 Jan, 2013 SP [facility] [address] [id number] [address] [place] [address], [place] [address] SP 10 Jan, 2013 SP [facility] [address] [id number] [address] [place] [address], [place] [address] SP Jan, 2013 SP [facility] [address] [id number] [address] [place] [address], [place] [address] SP Oct, SP [facility] [address] [id number] [address] [place] [address], [place] [address] SP Oct, SP [facility] [address] [id number] [address] [place] [address], [place] [address] SP Oct, SP [facility] [address] [id number] [address] [place] [address], [place] [address] SP Oct, SP [facility] [address] [id number] [address] [place] [address], [place] [address] SP Jun, SP [facility] [address] [id number] [address] [place] [address], [place] [address] SP Jun, SP [facility] [address] [id number] [address] [place] [address], [place] [address] SP Jun, SP [facility] [address] [id number] [address] [place] [address], [place] [address] SP Jun, SP [facility] [address] [id number] [address] [place] [address], [place] [address] SP Apr, SP [facility] [address] [id number] [address] [place] [address], [place] [address] SP Apr, SP [facility] [address] [id number] [address] [place] [address], [place] [address] SP Feb, SP [facility] [address] [id number] [address] [place] [address], [place] [address] SP Feb, SP [facility] [address] [id number] [address] [place] [address], [place] [address] SP Dec, SP [facility] [address] [id number] [address] [place] [address] SP Dec, SP [facility] [address] [id number] [address] [place] [id number] SP Nov, SP [facility] [address] [id number] [address] [place] [address] SP Nov, SP [facility] [address] [id number] [address] [place] [address], [place] [address] SP Nov, SP [facility] [address] [id number] [address] [place] [address], [place] [address] SP Oct, SP [facility] [address] [id number] [address] [place] [id number] SP September, SP [facility] [address] [id number] [facility] [address] SP September, SP [facility] [address] [id number] [address] [place] [address], [place] [address] SP Aug, SP [facility] [address] [id number] [address] [place] [address], [place] [address] SP Aug, SP [facility] [address] [id number] [address] [place] [address], [place] [address] SP Aug, SP [facility] [address] [id number] [address] [place] [address], [place] [address] SP Aug, SP [facility] [address] [id number] [address] [place] [address], [place] [address] SP Aug, SP [facility] [address] [id number] [address] [place] [address], [place] [address] SP Aug, SP [facility] [address] [id number] [address] [place] [address], [place] [address] SP Jul, SP [facility] [address] [id number] [address] [place] [address], [place] [address] SP Jul, SP [facility] [address] [id number] [address] [place] [address], [place] [address] SP Jul, SP [facility] [address] [id number] [address] [place] [address], [place] [address] SP 15 Jul, 2012 SP [facility] [address] [id number] [address] [place] [address], [place] [address] SP Jul, SP [facility] [address] [id number] [address] [place] [address], [place] [address] SP Jul, SP [facility] [address] [id number] [address] [place] [address], [place] [address] SP Jun, SP [facility] [address] [id number] [address] [place] [address], [place] [address] SP 04 Feb, 2013 SP [facility] [address] [id number] [address] [place] [address], [place] [address] SP May, SP [facility] [address] [id number] [address] [place] [address], [place] [address] SP May, SP [facility] [address] [id number] [address] [place] [address], [place] [address] SP Apr, SP [facility] [address] [id number] [address] [place] [address], [place] [address] SP Apr, SP [facility] [address] [id number] [address] [place] [address], [place] [address] SP Apr, SP [facility] [address] [id number] [address] [place] [address], [place] [address] SP Apr, SP [facility] [address] [id number] [address] [place] [address], [place] [address] SP Apr, SP [facility] [address] [id number] [address] [place] [address], [place] [address] SP Mar, SP [facility] [address] [id number] [address] [place] [address], [place] [address] SP Mar, SP [facility] [address] [id number] [address] [place] [address], [place] [address] SP Mar, SP [facility] [address] [id number] [address] [place] [address], [place] [address] SP Mar, SP [facility] [address] [id number] [address] [place] [address], [place] [address] SP Mar, SP [facility] [address] [id number] [address] [place] [address], [place] [address] SP Mar, SP [facility] [address] [id number] [address] [place] [address], [place] [address] SP Mar, SP [facility] [address] [id number] [address] [place] [address], [place] [address] SP Feb, SP [facility] [address] [id number] [address] [place] [address], [place] [address] SP Feb, SP [facility] [address] [id number] [address] [place] [address], [place] [address] SP Feb, SP [facility] [address] [id number] [address] [place] [address], [place] [address] SP Feb, SP [facility] [address] [id number] [address] [place] [address], [place] [address] SP Dec, SP [facility] [address] [id number] [address] [place] [address], [place] [address] SP Nov, SP [facility] [address] [id number] [address] [place] [address], [place] [address] SP Nov, SP [facility] [address] [id number] [address] [place] [address], [place] [address] SP Oct, SP [facility] [address] [id number] [address] [place] [address], [place] [address] SP Oct, SP [facility] [address] [id number] [address] [place] [address], [place] [address] SP Oct, SP [facility] [address] [id number] [address] [place] [address], [place] [address] SP Oct, SP [facility] [address] [id number] [address] [place] [address], [place] [address] SP Oct, SP [facility] [address] [id number] [address] [place] [address], [place] [address] SP Oct, SP [facility] [address] [id number] [address] [place] [address], [place] [address] SP Oct, SP [facility] [address] [id number] [address] [place] [address], [place] [address] SP Aug, SP [facility] [address] [id number] [facility] [address] SP Jul, SP [facility] [address] [id number] [address] [place] [address], [place] [address] SP Jul, SP [facility] [address] [id number] [address] [place] [address], [place] [address] SP Jul, SP [facility] [address] [id number] [address] [place] [address], [place] [address] SP Jul, SP [facility] [address] [id number] [address] [place] [address], [place] [address] SP Jul, SP [facility] [address] [id number] [address] [place] [address], [place] [address] SP Jul, SP [facility] [address] [id number] [address] [place] [address], [place] [address] SP Jul, SP [facility] [address] [id number] [address] [place] [address], [place] [address] SP Jun, SP [facility] [address] [id number] [address] [place] [address], [place] [address] SP May, SP [facility] [address] [id number] [address] [place] [address], [place] [address] SP May, SP [facility] [address] [id number] [address] [place] [address], [place] [address] SP May, SP [facility] [address] [id number] [address] [place] [address], [place] [address] SP Apr, SP [facility] [address] [id number] [address] [place] [address], [place] [address] SP Apr, SP [facility] [address] [id number] [address] [place] [address], [place] [address] SP Apr, SP [facility] [address] [id number] [address] [place] [address], [place] [address] SP Apr, SP [facility] [address] [id number] [address] [place] [address], [place] [address] SP Apr, SP [facility] [address] [id number] [address] [place] [address], [place] [address] SP Apr, SP [facility] [address] [id number] [address] [place] [address], [place] [address] SP Mar, SP [facility] [address] [id number] [address] [place] [address], [place] [address] SP Mar, SP [facility] [address] [id number] [address] [place] [address], [place] [address] SP Mar, SP [facility] [address] [id number] [address] [place] [address], [place] [address] SP Mar, SP [facility] [address] [id number] [address] [place] [address], [place] [address] SP Mar, SP [facility] [address] [id number] [address] [place] [address], [place] [address] SP Mar, SP [facility] [address] [id number] [address] [place] [address], [place] [address] SP Mar, SP [facility] [address] [id number] [address] [place] [address], [place] [address] SP Dec, SP [facility] [address] [id number] [address] [place] [address], [place] [address] SP Aug, SP [facility] [address] [id number] [address] [place] [address], [place] [address] SP Apr, SP [facility] [address] [id number] [address] [place] [address], [place] [address] SP Mar, SP [facility] [address] [id number] [address] [place] [address], [place] [address] SP Mar, SP [facility] [address] [id number] [address] [place] [address] SP Mar, SP [facility] [address] [facility] [id number] [address] [place] [address] SP Mar, SP [facility] [address] [facility] [id number] [address] [place] [id number] SP September, SP [facility] [address] [facility] [id number] [address] [place] [address] SP Mar, SP [facility] [address] [facility] [id number] [address] [place] [address] SP Feb, SP [facility] [address] [facility] [id number] [address] [place] [address] SP Oct, SP [facility] [address] [facility] [id number] [address] [place] [address] SP September, SP [facility] [address] [facility] [id number] [address] [place] [address] SP Apr, SP [facility] [address] [facility] [id number] [address] [place] [address] SP Mar, SP IMMUNIZATIONS No Known Immunizations SOCIAL HISTORY Never Assessed REASON FOR VISIT [facility] [place] VITAL SIGNS MEDICATIONS Unknown [...]
--- OUTSIDE RECORDS SUMMARY | 2019-04-01 02:25 | XMS REPORT ---
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 Name Role Phone POS Migration, Doctor Unavailable Unavailable SP PROBLEMS Type Condition ICD9-CM Code NFY35-DL Code Onset Dates Condition S tatus SNOMED POS Problem Peripheral vascular disease I73.9 Ac tive [id number] POS Problem Urinary, incontinence, stress female N39.3 Active [id number] SP Problem Chronic kidney disease, unspecified N18.9 Active 821165601 SP Problem Dysphagia, unspecified R13.10 Active 74484421 SP Problem Anemia of chronic disease D63.8 Acti ve 489289765 SP Problem Cervicalgia M54.2 Active [id number] 02084 SP Problem Essential hypertension I10 Active 29398781 SP Problem 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 699332772 SP Problem Abdominal aortic aneurysm (AAA) without rupture I7 1.4 Active SP Problem Seasonal allergic rhinitis, unspecified allergic rhinitis trigger SP Active 407010305 SP Problem Prediabetes R73.03 Active 79001209 2 SP Problem Mixed hyperlipidemia E78.2 Active 650835755 SP Problem Stenosis of right renal artery I70.1 Active [id number] SP Problem Chronic obstructive pulmonary disease, unspecified COPD ty pe J44.9 SP 25341874 SP Problem Gastroesophageal reflux disease without esophagitis K21.9 Active SP Problem Hepatic steatosis K76.0 Active 19 2963694 SP Problem Renal artery stenosis I70.1 Active 039826486 SP Problem PVD (peripheral vascular disease) I73.9 Active 487500609 SP Problem Arthritis of knee M17.10 Active 37 4433035 SP Problem Other chronic pain G89.29 Active 8 7865050 SP ALLERGIES No Information ENCOUNTERS Encounter Location Date Diagnosis POS [facility] [address] [facility] [id number] [address] [place] [phone] SP Aug, SP [facility] [address] [facility] [id number] [address] [place] [address] SP Jul, Contact dermatitis and other eczema, due to unspecified cause SP ; Morbid obesity E66.01 ; Essential hypertension I10 ; Chronic obstructive pulmonary disease, unspecified COPD type J44.9 ; Chronic kidney disease, unspecified N18.9 and Mixed hyperlipidemia E78.2 [facility] [address] [place] [id number] [address] [place] [address] SP Jul, Skin infection L08.9 and Mor bid obesity E66.01 SP [facility] [address] SP Jun, Cellulitis of right arm L03. 113 and BMI 45.0-49.9, adult Z68.42 SP [place] [address] [address] SP May, SP [place] [address] [place] [id number] [place] [address] SP May, Chronic obstructive pulmonar y disease, unspecified COPD type SP ; Viral upper respiratory tract infection J06.9 and BMI 45.0-49.9, adult Z68.42 [place] [address] [address] SP Mar, BMI 45.0-49.9, adult Z68.42 ; Chronic urticaria L50.8 and Skin SP L08.9 [place] [address] [place] [id number] [address] [place] [address] SP Mar, Dermatitis L30.9 and BMI 45. 0-49.9, adult Z68.42 SP [place] [address] [place] [id number] [address] [place] [address] SP Feb, Cellulitis of right upper ex tremity L03.113 and BMI 45.0-49.9, SP Z68.42 [place] [address] [place] [id number] [address] [place] [address] SP Feb, Cellulitis of right arm L03. 113 and Status post cardiac SP Z98.890 [place] [address] [address] SP Feb, SP [place] [address] [address] SP Feb, Chronic obstructive pulmonar y disease, unspecified COPD type SP ; Essential hypertension I10 ; Encounter for immunization Z23 ; Mixed hyperlipidemia E78.2 and BMI 45.0-49.9, adult Z68.42 [place] [address] [address] SP Feb, Dysuria R30.0 ; Acute cystit is without hematuria N30.00 and BMI SP49.9, adult Z68.42 [place] [address] [address] SP Dec, SP [place] [address] [address] SP Dec, Essential hypertension I10 ; Chronic kidney disease, unspecified SP ; Mixed hyperlipidemia E78.2 ; Tinea corporis B35.4 ; Right hip pain M25.551 and Acute pain of right knee M25.561 [place] [address] [address] SP Dec, Herpes zoster without compli cation B02.9 ; Dandruff L21.0 ; SP unspecified type R19.7 and BMI 45.0-49.9, adult Z68.42 [place] [address] [address] SP September, Chronic kidney disease, unsp ecified N18.9 ; Essential SP I10 ; Mixed hyperlipidemia E78.2 and BMI 45.0-49.9, adult Z68.42 [place] [address] [address] SP September, SP [place] [address] [address] SP September, Essential hypertension I10 ; Chronic kidney disease, unspecified SP ; Prediabetes R73.03 ; Low back pain M54.5 ; Other chronic pain G89.29 ; Arthritis of knee M17.10 ; Pure hyperglyceridemia E78.1 ; Anemia of chronic disease D63.8 and BMI 45.0-49.9, adult Z68.42 [place] [address] [address] SP Aug, SP [facility] [address] [address] SP Jul, Abdominal aortic aneurysm (A AA) without rupture I71.4 ; PVD SP vascular disease) I73.9 ; Renal artery stenosis I70.1 and Essential hypertension I10 [place] [address] [address] SP May, Essential hypertension I10 ; Pure hyperglyceridemia E78.1 ; SP aortic aneurysm (AAA) without rupture I71.4 ; Chronic kidney disease, unspecified N18.9 ; Gastroesophageal reflux disease without esophagitis K21.9 ; 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 ; Stenosis of right renal artery I70.1 ; Anemia of chronic disease D63.8 and Prediabetes R73.03 [facility] [address] [place] [id number] [address] [place] [address] SP May, Tinea corporis B35.4 and Vir al URI J06.9 SP [place] [address] [place] [id number] [address] [place] [address] SP May, [facility] [id number] [place] [address] SP Apr, [place] [address] [place] [id number] [address] [place] [address] SP Apr, Cervical radiculopathy M54.1 2 SP [facility] [address] SP Apr, Flank pain R10.9 and Acute p yelonephritis N10 SP [place] [address] [facility] [id number] [address] [place] [address] SP Apr, SP [place] [address] [facility] [id number] [address] [place] [address] SP Mar, SP [facility] [address] [place] [id number] [place] [address] SP Feb, Pain of right shoulder regio n M25.511 SP [place] [address] [place] [id number] [place] [address] SP Feb, History of glaucoma Z86.69 ; Vision changes H53.9 ; Abdominal SP aneurysm (AAA) without rupture I71.4 ; Xerosis of skin L85.3 and Pain in right shoulder M25.511 [place] [address] [address] SP Feb, SP [place] [address] [address] SP Jan, Essential hypertension I10 ; Pure hyperglyceridemia E78.1 ; SP kidney disease, unspecified N18.9 ; Gastroesophageal reflux disease without esophagitis K21.9 ; 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 ; Stenosis of right renal artery I70.1 ; Anemia of chronic disease D63.8 ; Prediabetes R73.03 ; Pain of right shoulder region M25.511 and Homeless Z59.0 [place] [address] [address] SP Jan, Neck pain M54.2 and Seasonal allergic rhinitis, unspecified SP rhinitis trigger J30.2 [place] [address] [place] [id number] [place] [address] SP Dec, SP [place] [address] [place] [id number] [place] [address] SP Dec, [place] [address] [address] SP Dec, Blood glucose abnormal R73.0 9 [...] infection A04.8 and Prediabetes R73.03 [facility] [address] SP Oct, Seasonal allergic rhinitis, unspecified allergic rhinitis SP J30.[address] [address] SP September, Eustachian tube dysfunction, left H69.82 and Candidiasis of SP B37.[address] [address] SP Jul, Blood glucose abnormal R73.0 9 ; Essential hypertension I10 ; Pure SPhyperglyceridemia E78.1 ; Chronic kidney disease, unspecified N18.9 ; Gastroesophageal reflux disease without esophagitis K21.9 ; 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 ; Abdominal aortic aneurysm (AAA) without rupture I71.4 ; Stenosis of right renal artery I70.1 ; Anemia of chronic disease D63.8 and Acute non-recurrent maxillary sinusitis J01.[address] [address] SP Jun, Acute non-recurrent maxillar y sinusitis J01.00 ; Acute mucoid SP media of left ear H65.112 ; Nausea R11.0 and Fever and chills R50.9 [place] [address] [address] SP May, Acute right flank pain R10.9 SP [place] [address] [address] SP Apr, Acute nasopharyngitis J00 ; Pure hyperglyceridemia E78.1 and SP kidney disease, unspecified N18.9 [facility] [address] [id number] [address] [place] [address] SP Apr, SP [facility] [address] [facility] [id number] [address] [place] [address] SP Apr, Blood glucose abnormal R73.0 9 ; Essential hypertension I10 ; Pure SPhyperglyceridemia E78.1 ; Chronic kidney disease, unspecified N18.9 ; Gastroesophageal reflux disease without esophagitis K21.9 ; 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 ; Abdominal aortic aneurysm (AAA) without rupture I71.4 ; Stenosis of right renal artery I70.1 ; RUQ pain R10.11 and Anemia of chronic disease D63.8 [facility] [address] [facility] [id number] [address] [place] [address] SP Mar, Blood glucose abnormal R73.0 9 SP [facility] [address] [facility] [id number] [address] [place] [address] SP Mar, Cellulitis of right lower le g L03.115 SP [facility] [address] [id number] [address] [place] [address] SP Feb, SP [facility] [address] [facility] [id number] [address] [place] [address] SP Feb, Dysuria R30.0 and Upper resp iratory tract infection, unspecified SP J06.9 [facility] [address] [facility] [id number] [address] [place] [address] SP Jan, SP [facility] [address] [facility] [id number] [address] [place] [address] SP Jan, SP [facility] [address] [facility] [id number] [address] [place] [address] SP Dec, [facility] [address] [facility] [id number] [address] [place] [address] SP Dec, Anemia of chronic disease D6 3.8 ; Essential hypertension I10 ; SP hyperglyceridemia E78.1 ; Chronic kidney disease, unspecified N18.9 ; Gastroesophageal reflux disease without esophagitis K21.9 ; 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 and Pain in right knee M25.561 [place] [address] [place] [id number] [address] [place] [address] SP Dec, Left shoulder strain, subseq uent encounter S46.912D ; Urinary SP R35.0 ; Lung nodule, solitary R91.1 ; Essential hypertension I10 and Acute cystitis without hematuria N30.00 [place] [address] [address] SP Nov, Left-sided chest wall pain R 07.89 and Abnormal chest xray R93.8 SP [place] [address] [address] SP Nov, Pain of right lower extremit y M79.604 ; Swelling of right lower SP M79.89 ; Diarrhea, unspecified R19.7 ; Nausea with vomiting, unspecified R11.2 ; Left-sided chest wall pain R07.89 ; Chronic kidney disease, unspecified N18.9 ; Gastroesophageal reflux disease without esophagitis K21.9 and Other seasonal allergic rhinitis J30.2 [place] [address] [place] [id number] [address] [place] [address] SP September, Essential hypertension I10 ; Chronic kidney disease, unspecified SP ; Anemia of chronic disease D63.8 ; Pure hyperglyceridemia E78.1 ; Peripheral vascular disease I73.9 ; Abnormal glucose R73.09 ; 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 ; Gastroesophageal reflux disease without esophagitis K21.9 ; Allergic rhinitis J30.9 and Rash R21 [place] [address] [place] [id number] [address] [place] [address] SP Aug, Abdominal pain R10.9 and Con stipation K59.00 SP [place] [address] [place] [id number] [address] [place] [address] SP Jul, Injury of toe on right foot S99.921A SP [place] [address] [facility] [id number] [address] [place] [address] SP Jul, SP [place] [address] [place] [id number] [place] [address] SP Jul, Essential hypertension I10 ; Chronic kidney disease, unspecified SP ; Anemia of chronic disease D63.8 ; Pure hyperglyceridemia E78.1 ; Peripheral vascular disease I73.9 ; Abnormal glucose R73.09 ; 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 ; Gastroesophageal reflux disease without esophagitis K21.9 and Allergic rhinitis J30.9 [place] [address] [place] [id number] [place] [address] SP Jun, Low back pain M54.5 SP [place] [address] [place] [id number] [place] [address] SP Jun, SP [place] [address] [address] SP May, URI (upper respiratory infec tion) J06.9 SP [place] [address] [address] SP Apr, Essential hypertension I10 SP [place] [address] [place] [id number] [place] [address] SP Apr, Essential hypertension I10 ; Chronic kidney disease, unspecified SP ; Anemia of chronic disease D63.8 ; Pure hyperglyceridemia E78.1 ; Peripheral vascular disease I73.9 ; Abnormal glucose R73.09 ; URI (upper respiratory infection) J06.9 ; 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 ; Gastroesophageal reflux disease without esophagitis K21.9 and Cough R05 [place] [address] [place] [id number] [place] [address] SP Mar, Flank pain R10.9 and URI (up per respiratory infection) J06.9 SP [place] [address] [place] [id number] [place] [address] SP Mar, Right-sided low back pain wi thout sciatica M54.5 and Hematuria, SP R31.9 [facility] [address] [address] SP Mar, Hypopigmentation L81.9 and H yperpigmentation L81.9 SP [facility] [address] [address] SP Mar, SP [facility] [address] [address] SP Mar, Acute cystitis with hematuri a N30.01 SP [place] [address] [address] SP Mar, SP [place] [address] [address] SP Feb, Furuncle L02.92 ; Hypopigmen tation L81.9 ; Hyperpigmentation SP ; Urinary frequency R35.0 ; Screening for malignant neoplasm of cervix Z12.4 ; Vaginal discharge N89.8 ; Urinary, incontinence, stress female N39.3 and Vaginal irritation N89.8 [place] [address] [address] SP Jan, Muscle spasm 728.85 ; Unspec ified peripheral vascular disease SP ; Benign essential hypertension 401.1 ; Chronic renal insufficiency 585.9 ; Chronic constipation 564.00 ; GERD (gastroesophageal reflux disease) 530.81 ; Hyperlipidemia 272.4 and Chronic leg pain 729.5 [facility] [address] [place] [id number] [address] [place] [address] SP Jan, Sinusitis 473.9 SP [place] [address] [address] SP Dec, SP [facility] [address] [place] [id number] [address] [place] [address] SP Dec, Acute bronchitis 466.0 SP [place] [address] [place] [address] [place] [address] SP Dec, Acute bronchitis 466.0 SP [place] [address] [address] SP Dec, Unspecified episodic mood di sorder 296.90 SP [place] [address] [address] SP Dec, Visit for suture removal V58 .32 SP [place] [address] [address] SP Nov, Allergic rhinitis 477.9 and Onychomycosis 110.1 SP [place] [address] [address] SP Oct, Muscle spasm 728.85 ; Benign essential hypertension 401.1 ; SP renal insufficiency 585.9 ; Chronic constipation 564.00 ; GERD (gastroesophageal reflux disease) 530.81 and Hyperlipidemia 272.4 [place] [address] [place] [id number] [address] [place] [address] SP Oct, Otalgia of left ear 388.70 SP [place] [address] [address] SP Oct, Unspecified episodic mood di sorder 296.90 SP [place] [address] [place] [id number] [address] [place] [address] SP September, Unspecified episodic mood di sorder 296.90 SP [place] [address] [place] [id number] [address] [place] [address] SP September, Unspecified episodic mood di sorder 296.90 SP [facility] [address] SP September, Urinary frequency 788.41 and Constipation 564.00 SP [place] [address] [place] [id number] [address] [place] [address] SP Aug, SP [place] [address] [place] [address] SP Aug, SP [facility] [place] [facility] [address] [id number] [address] [place] [address], [place] [address] SP Jul, SP [facility] [place] [facility] [address] [id number] [address] [place] [address], [place] [address] SP Jul, SP [facility] [place] [facility] [address] [id number] [address] [place] [address], [place] [address] SP Jul, SP [facility] [place] [facility] [address] [id number] [address] [place] [address], [place] [address] SP Jul, SP [facility] [place] [facility] [address] [id number] [address] [place] [address], [place] [address] SP Jul, SP [facility] [place] [facility] [address] [id number] [address] [place] [address], [place] [address] SP Jul, SP [facility] [place] [facility] [address] [id number] [address] [place] [address], [place] [address] SP Jul, SP [facility] [place] [facility] [address] [id number] [address] [place] [address], [place] [address] SP Jul, SP [facility] [place] [facility] [address] [id number] [address] [place] [address], [place] [address] SP Jul, SP [facility] [place] [facility] [address] [id number] [address] [place] [address], [place] [address] SP Jul, SP [facility] [place] [facility] [address] [id number] [address] [place] [address], [place] [address] SP Jun, SP [facility] [place] [facility] [address] [id number] [address] [place] [address], [place] [address] SP Jun, SP [facility] [place] [facility] [address] [id number] [address] [place] [address], [place] [address] SP May, SP [facility] [place] [facility] [address] [id number] [address] [place] [address], [place] [address] SP May, SP [facility] [place] [facility] [address] [id number] [address] [place] [address], [place] [address] SP May, SP [facility] [address] [id number] [address] [place] [address], [place] [address] SP May, SP [facility] [address] [id number] [address] [place] [address], [place] [address] SP May, SP [facility] [place] [facility] [address] [id number] [address] [place] [address], [place] [address] SP May, SP [facility] [place] [facility] [address] [id number] [address] [place] [address], [place] [address] SP May, SP [facility] [address] [id number] [address] [place] [address], [place] [address] SP May, SP [facility] [address] [id number] [address] [place] [address], [place] [address] SP May, SP [facility] [address] [id number] [address] [place] [address], [place] [address] SP May, SP [facility] [address] [id number] [address] [place] [address], [place] [address] SP May, SP [facility] [address] [id number] [address] [place] [address], [place] [address] SP May, SP [facility] [address] [id number] [address] [place] [address], [place] [address] SP May, SP [facility] [address] [id number] [address] [place] [address], [place] [address] SP Feb, SP [facility] [place] [facility] [address] [id number] [address] [place] [address], [place] [address] SP Feb, SP [facility] [place] [facility] [address] [id number] [address] [place] [address], [place] [address] SP Jan, SP [facility] [place] [facility] [address] [id number] [address] [place] [address], [place] [address] SP Jan, 2013 SP [facility] [place] [facility] [address] [id number] [facility] [place] [place] [address] SP 18 Sep, 2013 SP [facility] [place] [facility] [address] [id number] [facility] [place] [place] [address] SP 18 Jan, 2013 SP [facility] [place] [facility] [address] [id number] [address] [place] [address], [place] [address] SP 12 Jan, 2013 SP [facility] [place] [facility] [address] [id number] [address] [place] [address], [place] [address] SP 12 Jan, 2013 SP [facility] [place] [facility] [address] [id number] [address] [place] [address], [place] [address] SP 12 Jan, 2013 SP [facility] [place] [facility] [address] [id number] [address] [place] [address], [place] [address] SP 12 Jan, 2013 SP [facility] [place] [facility] [address] [id number] [address] [place] [address], [place] [address] SP 11 Jan, 2013 SP [facility] [place] [facility] [address] [id number] [address] [place] [address], [place] [address] SP 11 Jan, 2013 SP [facility] [place] [facility] [address] [id number] [address] [place] [address], [place] [address] SP 10 Jan, 2013 SP [facility] [address] [id number] [address] [place] [address], [place] [id number] SP Jan, 2013 SP [facility] [address] [id number] [address] [place] [address], [place] [id number] SP Oct, SP [facility] [address] [id number] [address] [place] [address], [place] [id number] SP Oct, SP [facility] [address] [id number] [address] [place] [address], [place] [id number] SP Oct, SP [facility] [address] [id number] [address] [place] [address], [place] [id number] SP Oct, SP [facility] [address] [id number] [address] [place] [address], [place] [id number] SP Jun, SP [facility] [address] [id number] [address] [place] [address], [place] [address] SP Jun, SP [facility] [address] [id number] [address] [place] [address], [place] [address] SP Jun, SP [facility] [address] [id number] [address] [place] [address], [place] [address] SP Jun, SP [facility] [address] [id number] [address] [place] [address], [place] [address] SP Apr, SP [facility] [address] [id number] [address] [place] [address], [place] [address] SP Apr, SP [facility] [address] [id number] [address] [place] [address], [place] [address] SP Feb, SP [facility] [address] [id number] [address] [place] [address], [place] [id number] SP Feb, SP [facility] [address] [id number] [address] [place] [address], [place] [address] SP Dec, SP [facility] [address] [id number] [address] [place], [place] [phone] SP Dec, SP [facility] [address] [id number] [address] [place] [phone] SP Nov, SP [facility] [address] [id number] [address] [place] [id number] SP Nov, SP [facility] [address] [id number] [address] [place] [address], [place] [address] SP Nov, SP [facility] [address] [id number] [address] [place] [address], [place] [address] SP Oct, SP [facility] [address] [id number] [address] [place] [phone] SP September, SP [facility] [address] [id number] [facility] [place] [place] [address] SP September, SP [facility] [address] [id number] [address] [place] [address], [place] [address] SP Aug, SP [facility] [address] [id number] [address] [place] [address], [place] [address] SP Aug, SP [facility] [address] [id number] [address] [place] [address], [place] [address] SP Aug, SP [facility] [address] [id number] [address] [place] [address], [place] [address] SP Aug, SP [facility] [address] [id number] [address] [place] [address], [place] [address] SP Aug, SP [facility] [address] [id number] [address] [place] [address], [place] [address] SP Aug, SP [facility] [address] [id number] [address] [place] [address], [place] [address] SP Jul, SP [facility] [address] [id number] [address] [place] [address], [place] [address] SP Jul, SP [facility] [address] [id number] [address] [place] [address], [place] [address] SP Jul, SP [facility] [address] [id number] [address] [place] [address], [place] [address] SP 15 Jul, 2012 SP [facility] [address] [id number] [address] [place] [address], [place] [address] SP Jul, SP [facility] [address] [id number] [address] [place] [address], [place] [address] SP Jul, SP [facility] [address] [id number] [address] [place] [address], [place] [address] SP Jun, SP [facility] [address] [id number] [address] [place] [address], [place] [address] SP 04 Feb, 2013 SP [facility] [address] [id number] [address] [place] [address], [place] [address] SP May, SP [facility] [address] [id number] [address] [place] [address], [place] [address] SP May, SP [facility] [address] [id number] [address] [place] [address], [place] [address] SP Apr, SP [facility] [address] [id number] [address] [place] [address], [place] [address] SP Apr, SP [facility] [address] [id number] [address] [place] [address], [place] [address] SP Apr, SP [facility] [address] [id number] [address] [place] [address], [place] [address] SP Apr, SP [facility] [address] [id number] [address] [place] [address], [place] [address] SP Apr, SP [facility] [address] [id number] [address] [place] [address], [place] [address] SP Mar, SP [facility] [address] [id number] [address] [place] [address], [place] [address] SP Mar, SP [facility] [address] [id number] [address] [place] [address], [place] [address] SP Mar, SP [facility] [address] [id number] [address] [place] [address], [place] [address] SP Mar, SP [facility] [address] [id number] [address] [place] [address], [place] [address] SP Mar, SP [facility] [address] [id number] [address] [place] [address], [place] [address] SP Mar, SP [facility] [address] [id number] [address] [place] [address], [place] [address] SP Mar, SP [facility] [address] [id number] [address] [place] [address], [place] [address] SP Feb, SP [facility] [address] [id number] [address] [place] [address], [place] [address] SP Feb, SP [facility] [address] [id number] [address] [place] [address], [place] [address] SP Feb, SP [facility] [address] [id number] [address] [place] [address], [place] [address] SP Feb, SP [facility] [address] [id number] [address] [place] [address], [place] [address] SP Dec, SP [facility] [address] [id number] [address] [place] [address], [place] [address] SP Nov, SP [facility] [address] [id number] [address] [place] [address], [place] [address] SP Nov, SP [facility] [address] [id number] [address] [place] [address], [place] [address] SP Oct, SP [facility] [address] [id number] [address] [place] [address], [place] [address] SP Oct, SP [facility] [address] [id number] [address] [place] [address], [place] [address] SP Oct, SP [facility] [address] [id number] [address] [place] [address], [place] [address] SP Oct, SP [facility] [address] [id number] [address] [place] [address], [place] [address] SP Oct, SP [facility] [address] [id number] [address] [place] [address], [place] [address] SP Oct, SP [facility] [address] [id number] [address] [place] [address], [place] [address] SP Oct, SP [facility] [address] [id number] [address] [place] [address], [place] [address] SP Aug, SP [facility] [address] [id number] [facility] [place] [place] [address] SP Jul, SP [facility] [address] [id number] [address] [place] [address], [place] [address] SP Jul, SP [facility] [address] [id number] [address] [place] [address], [place] [address] SP Jul, SP [facility] [address] [id number] [address] [place] [address], [place] [address] SP Jul, SP [facility] [address] [id number] [address] [place] [address], [place] [address] SP Jul, SP [facility] [address] [id number] [address] [place] [address], [place] [address] SP Jul, SP [facility] [address] [id number] [address] [place] [address], [place] [address] SP Jul, SP [facility] [address] [id number] [address] [place] [address], [place] [address] SP Jun, SP [facility] [address] [id number] [address] [place] [address], [place] [address] SP May, SP [facility] [address] [id number] [address] [place] [address], [place] [address] SP May, SP [facility] [address] [id number] [address] [place] [address], [place] [address] SP May, SP [facility] [address] [id number] [address] [place] [address], [place] [address] SP Apr, SP [facility] [address] [id number] [address] [place] [address], [place] [address] SP Apr, SP [facility] [address] [id number] [address] [place] [address], [place] [address] SP Apr, SP [facility] [address] [id number] [address] [place] [address], [place] [address] SP Apr, SP [facility] [address] [id number] [address] [place] [address], [place] [address] SP Apr, SP [facility] [address] [id number] [address] [place] [address], [place] [address] SP Apr, SP [facility] [address] [id number] [address] [place] [address], [place] [address] SP Mar, SP [facility] [address] [id number] [address] [place] [address], [place] [address] SP Mar, SP [facility] [address] [id number] [address] [place] [address], [place] [address] SP Mar, SP [facility] [address] [id number] [address] [place] [address], [place] [address] SP Mar, SP [facility] [address] [id number] [address] [place] [address], [place] [address] SP Mar, SP [facility] [address] [id number] [address] [place] [address], [place] [address] SP Mar, SP [facility] [address] [id number] [address] [place] [address], [place] [address] SP Mar, SP [facility] [address] [id number] [address] [place] [address], [place] [address] SP Dec, SP [facility] [address] [id number] [address] [place] [address], [place] [address] SP Aug, SP [facility] [address] [id number] [address] [place] [address], [place] [address] SP Apr, SP [facility] [address] [id number] [address] [place] [address], [place] [address] SP Mar, SP [facility] [address] [id number] [address] [place] [address], [place] [address] SP Mar, SP [facility] [address] [id number] [address] [place] [id number] SP Mar, SP [facility] [address] [facility] [id number] [address] [place] [address] SP Mar, SP [facility] [address] [facility] [id number] [address] [place] [phone] SP September, SP [facility] [address] [facility] [id number] [address] [place] [id number] SP Mar, SP [facility] [address] [facility] [id number] [address] [place] [phone] SP Feb, SP [facility] [address] [facility] [id number] [address] [place] [id number] SP Oct, SP [facility] [address] [facility] [id number] [address] [place] [phone] SP September, SP [facility] [address] [facility] [id number] [address] [place] [phone] SP Apr, SP [facility] [address] [facility] [id number] [address] [place] [address] SP Mar, SP IMMUNIZATIONS No Known Immunizations SOCIAL HISTORY Never Assessed REASON FOR VISIT [facility] [place] PLAN OF CARE VITAL SIGNS MEDICATIONS Unknown [...]
== END 2019-03-09 13:39 | disposition home or self-care (01) ==
LOC: EDUNIT# 18:38 → ER 18:39 → CSD 20:05 → UNDOADMOB 20:05 → CSD 21:15 → UNDODISOB 03-09 15:50
PROVIDERS: ADMIT Internal Medicine; ATTEND Internal Medicine
DX: I25.10 Atherosclerotic heart disease of native coronary artery without angina pectoris (principal); I12.9 Hypertensive chronic kidney disease with stage 1 through stage 4 chronic kidney disease, or unspecified chronic kidney disease; I73.9 Peripheral vascular disease, unspecified; E11.22 Type 2 diabetes mellitus with diabetic chronic kidney disease; N18.4 Chronic kidney disease, stage 4 (severe); J44.9 Chronic obstructive pulmonary disease, unspecified; E78.00 Pure hypercholesterolemia, unspecified; N39.0 Urinary tract infection, site not specified; K21.9 Gastro-esophageal reflux disease without esophagitis; M79.7 Fibromyalgia; M19.90 Unspecified osteoarthritis, unspecified site; G89.29 Other chronic pain; M54.9 Dorsalgia, unspecified; Z88.2 Allergy status to sulfonamides; Z88.8 Allergy status to other drugs, medicaments and biological substances; Z79.82 Long term (current) use of aspirin; Z79.899 Other long term (current) drug therapy; Z79.891 Long term (current) use of opiate analgesic; Z90.89 Acquired absence of other organs; Z87.891 Personal history of nicotine dependence
CPT/HCPCS: 36415; 71045; 80053; 80061; 81000; 82150; 82550; 82553; 82962; 83690; 83735; 83874; 83880; 84484; 85025; 85610; 85730; 87077; 87088; 87186; 93005; 93041; 96372; 96374; 96375

== ENCOUNTER 2019-05-11 00:58 | Emergency (ER) | payer BC ==
[~2019-05-11] VITALS: Ht 165 cm; Wt 133.4 kg
[~2019-05-11 00:58] MED LIST changes: -BETA15CR14 TOP; +BETA15CR37 TOP; -OMEP40CA27 PO; +OMEP40CA36 PO
--- NOTE | 2019-05-11 03:00 | ED Lower Extremity ---
General Chief Complaint: Lower Extremity Stated Complaint: NAUSEA LEFT KNEE PAIN SWELLING Nursing Triage Note: LEFT KNEE, RIGHT FOOT SWELLING SINCE 05/09/19, DENIES INJURY. 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, BUT NO DIFFERENT THAN NORMAL ACTIVITY STATES SHE HAS HAD PROBLEMS LIKE THIS WITH HER KNEE IN THE PAST, BUT HAS NEVER SOUGHT CARE STATES SHE CAN'T BEND HER KNEE DUE TO PAIN AND SWELLING STATES SHE TOOK 1000 MG TYLENOL AT 2200 TONIGHT, OTHERWISE HAS NOT TAKEN ANYTHING ELSE FOR PAIN PCP: [facility] Allergies and Home Medications Allergies Coded Allergies: NSAIDS (Non-Steroidal Anti-Inflamma (Verified Allergy, Unknown, 11/11/12) Sulfa (Sulfonamide Antibiotics) (Verified Allergy, Unknown, 11/11/12) niacin (Verified Allergy, Unknown, 09/19/11) Uncoded Allergies: IV CONTRAST (Allergy, Unknown, 11/11/12) Home Medications Amlodipine Besylate 10 Mg Tablet, 10 MG PO HS, (Reported) Ascorbate Calcium 500 Mg Tablet, 500 MG PO DAILY, (Reported) Aspirin 81 Mg Tablet.dr, 81 MG PO DAILY Prescribed by: ISELA BAH on 08/20/18 1237 Atorvastatin Calcium 10 Mg Tablet, 10 MG PO HS, (Reported) Betamethasone/Propylene Glyc 15 Gm Cream..g., TOP BID PRN for SORES, (Reported) Calcium Carbonate/Vitamin D3 1 Each Tablet, 1 TAB PO DAILY, (Reported) Fluticasone Propionate 16 Gm [place].susp, 1 SPRAY NS HS, (Reported) Gabapentin 100 Mg Capsule, 100 MG PO BID, (Reported) Hydrochlorothiazide 12.5 Mg Tablet, 12.5 MG PO DAILY, (Reported) Lisinopril 20 Mg Tablet, 20 MG PO DAILY, (Reported) Methylprednisolone 4 Mg Tab.ds.pk, 4 MG PO UD Prescribed by: STANLEY ALTAMIRANO on 05/11/19 0405 Metoprolol Succinate 200 Mg Tab.er.24h, 200 MG PO HS, (Reported) Multivitamin 1 Each Tablet, 1 TAB PO HS, (Reported) Multivits,Stress Formula 1 Each Tablet, 1 TAB PO HS, (Reported) Omeprazole 40 Mg Capsule.dr, 40 MG PO DAILY, (Reported) Patient Home Medication List Home Medication List Reviewed: Yes Review of Systems Constitutional: no symptoms reported : No (MENOPAUSE AT AGE 37) Control/STD Prophylaxis: None Musculoskeletal: see HPI Skin: no symptoms reported Psychiatric/Neurological: No Symptoms Reported; Denies Numbness, Denies Paresthesia, Denies Tingling Past Evfwqgt-Sjmvcm-Voidtp Hx Past Med/Social Hx: Reviewed and Corrections made Patient Social History Alcohol Use: Occasionally Uses Number of Drinks Today: Alcohol Beverage of Choice: Wine Recreational Drug Use: No Smoking Status: Former Smoker Type Used: Cigarettes Former Smoker, Quit: Feb 08, 2011 Recent Foreign Travel: No Contact w/Someone Who Travel: No Recent Infectious Disease Expo: No Recent Hopitalizations: No Immunizations Up To Date Tetanus Booster (TDap): Less than 5yrs Date of Pneumonia Vaccine: Feb 04, 2017 Date of Influenza Vaccine: Feb 04, 2019 Seasonal Allergies Seasonal Allergies: No Past Medical History Surgeries: Yes (CARDIAC AND PERIPHERAL CATHS-STENTS IN BOTH LEGS, AAA, RENAL ARTERIES. ) Adenoidectomy, Cardiac, Ear Surgery (LEFT EARDRUM RECONSTRUCTION), Tonsillec tamiko, Vascular Surgery Respiratory: Yes Asthma, COPD Cardiac: Yes (CARDIAC & PERIPHERAL CATHS-STENTS IN LEGS, AAA, RENAL ARTERIES. 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 MORBID OBESITY. ) Diabetes, Non-Insulin dep HEENT: Yes (LEFT EAR DRUM RECONSTRUCTION; BLIND IN LEFT EYE. ) Chronic Ear Infection, Glaucoma Loss of Vision: Left Cancer: No Psychosocial: No Integumentary: No Blood Disorders: Yes (ANEMIA) Adverse Reaction/Blood Tranf: No Family Medical History Patient reports no known family medical history. No Pertinent Family Hx Physical Exam Vital Signs Vital Signs - First Documented 05/11/19 02:37 Temp 36.9 Pulse 76 Resp 18 B/P (MAP) 156/84 (108) Pulse Ox 97 O2 Delivery Room Air Capillary Refill : Less Than 3 Seconds Height, Weight, BMI Height: 5'5.00" Weight: 285lbs. 3.0oz. 129.833081uy; 48.00 BMI Method:Stated General Appearance: no apparent distress, obese (MORBIDLY OBESE) HEENT: other (EXTENSIVE DENTAL DECAY IN FEW REMAINING TEETH--LOWER TEETH) Cardiovascular: normal peripheral pulses Hips: bilateral hip normal inspection Legs: bilateral leg other (2-3+ EDEMA OF BILATERAL LOWER LEGS--DIFFICULT TO DETERMINE DUE TO BODY HABITUS) Knees: right knee non-tender, right knee normal range of motion, right knee no evidence of injury; left knee other (DIFFUSE TENDERNESS TO ANTERIOR ASPECT OF LEFT KNEE. NO EXTERNAL EVIDENCE OF TRAUMA. ) Ankles: bilateral ankle non-tender Feet: bilateral foot non-tender Neurologic/Tendon: normal sensation, normal motor functions, normal tendon functions Neurologic/Psychiatric: no motor/sensory deficits, alert, normal mood/affect, oriented x 3 Skin: normal color, warm/dry; No ecchymosis Progress/Results/Core Measures Results/Orders My Orders Orders - STANLEY ALTAMIRANO DO Knee, Left, 3 Views (05/11/19 02:54) Jaden Bandage (05/11/19 04:00) Prednisone Tablet (Deltasone Tablet) (05/11/19 04:15) Vital Signs/I&O 05/11/19 05/11/19 02:37 04:09 Temp 36.9 36.9 Pulse 76 76 Resp 18 18 B/P (MAP) 156/84 (108) 156/84 (108) Pulse Ox 97 97 O2 Delivery Room Air Blood Pressure Mean: 108 Progress Progress Note : Progress Note PLAYING/TEXTING ON PHONE THE ENTIRE VISIT, IS FEMALE IN ROOM WITH PT. Diagnostic Imaging Comments XRAYS LEFT KNEE--NO ACUTE PROCESS, MILD DEGENERATIVE CHANGES. PENDING RADIOLOGIST REVIEW Reviewed: Reviewed by Me Departure Impression Primary Impression: Pain and swelling of left knee Disposition: 01 HOME, SELF-CARE Condition: Stable Departure-Patient Inst. Referrals: WHIT LOVELL DO (PCP/Family) Primary Care Physician WENDY MELENDEZ MD,DANE Navarro MD ORTHO 4 STATES Patient Instructions: Knee Pain (DC) Add. Discharge Instructions: ICE TO AREA AT 20 MINUTE INTERVALS JADEN WRAP FOR PAIN AND SWELLING ELEVATE LEG MUCH POSSIBLE FOLLOW UP WITH ORTHOPEDIC SURGEON OF CHOICE IN 1 WEEK FOR FURTHER CARE All discharge instructions reviewed with patient and/or family. Voiced understanding. Scripts Methylprednisolone (Medrol) 4 Mg Tab.ds.pk 4 MG PO UD, #1 PKG Prov: STANLEY ALTAMIRANO DO 05/11/19 STANLEY ALTAMIRANO DO May 11, 2019 03:00
[2019-05-11] MEDS ORDERED: METH4TAB PO (04:05)
[2019-05-11 04:09] VITALS: BP 156/84
[2019-05-11] MEDS ORDERED: predniSONE 20 MG TAB PO ONE (04:15)
--- NOTE | 2019-05-11 06:31 | Diagnostic Imaging Report ---
INDICATION: Knee pain. Three views were obtained. FINDINGS: There are mild degenerative changes. The alignment is normal. There is no fracture or dislocation. Soft tissues are unremarkable. IMPRESSION: Mild degenerative changes, otherwise unremarkable. Dictated by: Dictated on workstation # [id number]
== END 2019-05-11 04:09 | disposition home or self-care (01) ==
LOC: EDUNIT# 00:58 → ER 01:00
DX: M25.562 Pain in left knee (principal); M25.462 Effusion, left knee; J44.9 Chronic obstructive pulmonary disease, unspecified; I25.10 Atherosclerotic heart disease of native coronary artery without angina pectoris; E78.00 Pure hypercholesterolemia, unspecified; I10 Essential (primary) hypertension; E11.40 Type 2 diabetes mellitus with diabetic neuropathy, unspecified; K21.9 Gastro-esophageal reflux disease without esophagitis; M79.7 Fibromyalgia; E66.01 Morbid (severe) obesity due to excess calories; D64.9 Anemia, unspecified; Z88.6 Allergy status to analgesic agent; Z87.440 Personal history of urinary (tract) infections; Z88.2 Allergy status to sulfonamides; Z91.041 Radiographic dye allergy status; Z88.8 Allergy status to other drugs, medicaments and biological substances; Z79.82 Long term (current) use of aspirin; Z79.51 Long term (current) use of inhaled steroids; Z87.891 Personal history of nicotine dependence; Z77.22 Contact with and (suspected) exposure to environmental tobacco smoke (acute) (chronic); Z90.89 Acquired absence of other organs; Z68.42 Body mass index [BMI] 45.0-49.9, adult
CPT/HCPCS: 73562

== ENCOUNTER 2020-06-01 11:23 | Emergency (ER) | payer BC, OTHER ==
[~2020-06-01] VITALS: Ht 165.1 cm; Wt 131.5 kg
[~2020-06-01 11:23] MED LIST changes: +AMLO-250 PO; +AMLO-251 PO; -AMLO10TA7 PO; -AMLO5TAB9 PO; +ASPI-1238 PO; -ASPI-983 PO; +BETA15CR14 TOP; -BETA15CR37 TOP; +METH4TAB PO; +OMEP40CA27 PO; -OMEP40CA36 PO
--- NOTE | 2020-06-01 11:51 | ED Fall/Injury ---
General Chief Complaint: Trauma-Non Activation Stated Complaint: FELL Nursing Triage Note: PT TO [facility] 5 BY WHEELCHAIR WITH COMPLAINT OF FALL IN THE SHOWER. DENIES LOC OR HITTING HEAD. COMPLAINING OF RIGHT FOOT AND LEFT KNEE PAIN Source: patient Exam Limitations: no limitations History of Present Illness Date Seen by Provider: Jun 01, 2020 Time Seen by Provider: 11:40 Initial Comments Patient slipped while stepping into the shower and now has pain to the left knee left hip and right foot. Did not hit her head there were no other injuries. Occurred: this morning Injuries/Pain Location: lower extremity Context: unknown Loss of Consciousness: no loss of consciousness Associated Symptoms (Fall): Denies Symptoms Allergies and Home Medications Allergies Coded Allergies: NSAIDS (Non-Steroidal Anti-Inflamma (Verified Allergy, Unknown, 11/11/12) Sulfa (Sulfonamide Antibiotics) (Verified Allergy, Unknown, 11/11/12) niacin (Verified Allergy, Unknown, 09/19/11) Uncoded Allergies: IV CONTRAST (Allergy, Unknown, 11/11/12) Home Medications Amlodipine Besylate 10 Mg Tablet, 10 MG PO HS, (Reported) Ascorbate Calcium 500 Mg Tablet, 500 MG PO DAILY, (Reported) Aspirin 81 Mg Tablet.dr, 81 MG PO DAILY Prescribed by: ISELA BAH on 08/20/18 1237 Atorvastatin Calcium 10 Mg Tablet, 10 MG PO HS, (Reported) Betamethasone/Propylene Glyc 15 Gm Cream..g., TOP BID PRN for SORES, (Reported) Calcium Carbonate/Vitamin D3 1 Each Tablet, 1 TAB PO DAILY, (Reported) Fluticasone Propionate 16 Gm Mooers.susp, 1 SPRAY NS HS, (Reported) Gabapentin 100 Mg Capsule, 100 MG PO BID, (Reported) Hydrochlorothiazide 12.5 Mg Tablet, 12.5 MG PO DAILY, (Reported) Lisinopril 20 Mg Tablet, 20 MG PO DAILY, (Reported) Methylprednisolone 4 Mg Tab.ds.pk, 4 MG PO UD Prescribed by: STANLEY ALTAMIRANO on 05/11/19 0405 Metoprolol Succinate 200 Mg Tab.er.24h, 200 MG PO HS, (Reported) Multivitamin 1 Each Tablet, 1 TAB PO HS, (Reported) Multivits,Stress Formula 1 Each Tablet, 1 TAB PO HS, (Reported) Omeprazole 40 Mg Capsule.dr, 40 MG PO DAILY, (Reported) Patient Home Medication List Home Medication List Reviewed: Yes Review of Systems Review of Systems Constitutional: see HPI Eyes: No Symptoms Reported Ears, Nose, Mouth, Throat: no symptoms reported Respiratory: no symptoms reported Cardiovascular: no symptoms reported Genitourinary: no symptoms reported Musculoskeletal: see HPI Skin: no symptoms reported Psychiatric/Neurological: No Symptoms Reported Past Nyadsss-Cpognu-Pdtbve Hx Patient Social History Alcohol Use: Denies Use Number of Drinks Today: Alcohol Beverage of Choice: Wine Smoking Status: Never a Smoker Type Used: Cigarettes Former Smoker, Quit: Feb 08, 2011 Recent Infectious Disease Expo: No Recent Hopitalizations: No Immunizations Up To Date Tetanus Booster (TDap): Less than 5yrs Date of Pneumonia Vaccine: Feb 04, 2017 Date of Influenza Vaccine: Feb 04, 2019 Seasonal Allergies Seasonal Allergies: No Past Medical History Surgeries: Yes (CARDIAC AND PERIPHERAL CATHS-STENTS IN BOTH LEGS, AAA, RENAL ARTERIES. ) Adenoidectomy, Cardiac, Ear Surgery, Tonsillectomy, Vascular Surgery Respiratory: Yes Asthma, COPD Cardiac: Yes (CARDIAC & PERIPHERAL CATHS-STENTS IN LEGS, AAA, RENAL ARTERIES. 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 MOR BID OBESITY. ) Diabetes, Non-Insulin dep HEENT: Yes (LEFT EAR DRUM RECONSTRUCTION; BLIND IN LEFT EYE. ) Chronic Ear Infection, Glaucoma Loss of Vision: Left Cancer: No Psychosocial: No Integumentary: No Blood Disorders: Yes (ANEMIA) Adverse Reaction/Blood Tranf: No Family Medical History Patient reports no known family medical history. No Pertinent Family Hx Physical Exam Vital Signs Vital Signs - First Documented 06/01/20 11:31 Temp 36.3 Pulse 60 Resp 17 B/P (MAP) 151/72 (98) Pulse Ox 95 O2 Delivery Room Air Capillary Refill : Less Than 3 Seconds Height, Weight, BMI Height: 5'5.00" Weight: 285lbs. 3.0oz. 129.075914er; 48.00 BMI Method:Stated General Appearance: WD/WN, no apparent distress Neck: non-tender, full range of motion Respiratory: no respiratory distress, no accessory muscle use Gastrointestinal: normal bowel sounds, non tender, soft Extremities: normal range of motion, non-tender, other (Left knee is tender to palpation but due to body habitus I am unable to evaluate for any swelling or d eformity. Right foot is normal in appearance as well) Neurologic/Psychiatric: alert, normal mood/affect, oriented x 3 Skin: normal color, warm/dry James Coma Score Best Eye Response: (4) Open Spontaneously Best Verbal Response: (5) Oriented Best Motor Response: (6) Obeys Commands [place] Total: 15 Progress/Results/Core Measures Results/Orders My Orders Orders - МАРИЯ MIRZA APRN Knee, Left, 3 Views (06/01/20 11:46) Hip, Left, 2 Views (06/01/20 11:46) Foot, Right, 3 View (06/01/20 11:46) Vital Signs/I&O 06/01/20 11:31 Temp 36.3 Pulse 60 Resp 17 B/P (MAP) 151/72 (98) Pulse Ox 95 O2 Delivery Room Air Blood Pressure Mean: 98 Departure Impression Primary Impression: Sprain of knee Additional Impressions: Foot sprain IT band strain Disposition: 01 HOME, SELF-CARE Condition: Stable Departure-Patient Inst. Decision time for Depature: 11:50 Referrals: WHIT LOVELL DO (PCP/Family) Primary Care Physician Patient Instructions: Foot Sprain (DC) Add. Discharge Instructions: 1. Return to ER for any concerns 2. Tylenol for pain control. Follow-up with your doctor next week. If you have persistent pain they may wish to order an MRI of the knee to further evaluate the meniscus All discharge instructions reviewed with patient and/or family. Voiced understanding. Scripts Tramadol HCl (Ultram) 50 Mg Tablet 50 MG PO Q6H PRN for PAIN-MODERATE (5-7), #14 TAB Prov: МАРИЯ MIRZA APRN 06/01/20 Work/School Note: Work Release Form Date Seen in the Emergency Department: Jun 01, 2020 Return to Work: Jun 03, 2020 МАРИЯ MIRZA APRN Jun 01, 2020 11:50
--- NOTE | 2020-06-01 12:31 | Diagnostic Imaging Report ---
INDICATION: Left hip pain. COMPARISON: None available. TECHNIQUE: 2 views of left hip. FINDINGS: Coxa profundus present. Degenerative joint space narrowing is present in the superior aspect of the left hip. No fracture. Femoral head is spherical without osteonecrosis. Normal femoral head neck offset. IMPRESSION: 1. No fracture about the left hip. 2. Mild osteoarthritis. Dictated by: Dictated on workstation # [id number]
--- NOTE | 2020-06-01 12:32 | Diagnostic Imaging Report ---
INDICATION: Fall, pain. COMPARISON: 05/11/2019 TECHNIQUE: 3 radiographs of left knee dated 06/01/2020 FINDINGS: No acute fracture or dislocation. No destructive osseous process. Moderate medial and lateral joint space narrowing. Mild tricompartmental osteophytosis, greatest within the lateral compartment. No significant knee joint effusion. No suspicious radiopaque foreign body. IMPRESSION: No acute osseous abnormality with risl-fo-evafldfd degenerative changes present. Dictated by: Dictated on workstation # [id number]
--- NOTE | 2020-06-01 12:35 | Diagnostic Imaging Report ---
INDICATION: Right foot pain after injury. COMPARISON: None available. TECHNIQUE: Three views of the right foot were obtained. FINDINGS: There is no acute fracture or traumatic malalignment. The Lisfranc alignment is grossly normal although suboptimally evaluated on nonweightbearing imaging. No radiopaque foreign body or soft tissue gas. IMPRESSION: No acute fracture within the right foot. Dictated by: Dictated on workstation # [id number]
[2020-06-01] MEDS ORDERED: TRAM-42 PO (12:58)
[2020-06-01 13:05] VITALS: BP 149/68
== END 2020-06-01 13:05 | disposition home or self-care (01) ==
LOC: EDUNIT# 11:23 → ER 11:25
DX: S83.92XA Sprain of unspecified site of left knee, initial encounter (principal); S93.601A Unspecified sprain of right foot, initial encounter; I10 Essential (primary) hypertension; I25.10 Atherosclerotic heart disease of native coronary artery without angina pectoris; E78.00 Pure hypercholesterolemia, unspecified; K21.9 Gastro-esophageal reflux disease without esophagitis; Z87.891 Personal history of nicotine dependence; Z88.2 Allergy status to sulfonamides; Z88.6 Allergy status to analgesic agent; Z91.041 Radiographic dye allergy status; Z79.82 Long term (current) use of aspirin; W18.2XXA Fall in (into) shower or empty bathtub, initial encounter
CPT/HCPCS: 73502; 73562; 73630

== ENCOUNTER 2020-08-02 07:18 | Emergency (ER) | payer OTHER ==
[~2020-08-02] VITALS: Ht 165.1 cm; Wt 129.7 kg
[~2020-08-02 07:18] MED LIST changes: -CIPR500T4 PO; +CIPR500T5 PO; -LISI-552 PO; +LISI20TA26 PO
--- NOTE | 2020-08-02 08:01 | ED General ---
General Chief Complaint: General Problems/Pain Stated Complaint: LETHARGIC Nursing Triage Note: PT AMB TO RM 5 WITH DAUGHTER WITH COMPLAINT OF NOT ACTING RIGHT. DAUGHTER STATES SHE RECIEVED A PHONE CALL FROM AUNT STATING PT WAS NOT BREATHING AND SHE HAD TO STERNAL RUB HER TO GET HER TO WAKE UP. WHEN PT WOKE UP, SHE WAS GLASSY EYED AND CONFUSED. EMS WAS CALLED AND PT REFUSED TREATMENT. ON ARRIVAL PT IS ALERT AND ORIENTED TO PERSON AND PLACE. STATES SHE THOUGHT TODAY WAS SUNDAY AND SHE DID NOT HAVE TO WORK. STATES HAS BEEN HAVING URINARY SYMTPOMS. ALSO STATES SHE TOOK TYLENOL LAST NIGHT FOR A TOOTHACHE AND HAS BEEN HAVING INTERMITTENT CP. STATES THE CP AND TOOTHACHE ARE NOT NEW SYMPTOMS FOR HER. STATES HAS NOT TAKEN MORNING MEDICATIONS, INCLUDING BLOOD PRESSURE MEDS. Nursing Sepsis Screen: No Definite Risk Source of Information: Patient Exam Limitations: No Limitations History of Present Illness Date Seen by Provider: Aug 02, 2020 Time Seen by Provider: 07:35 Initial Comments Patient is a 59-year-old female who presents to the emergency department by private vehicle after being found "cold and not breathing" by her ygjbxtp-mj-vmx and sister. When sister arrived at the house she actually found her breathing and had to sternal rub her over the course of 10 to 15 minutes in order to get her to arouse. She states that she woke up pale and disoriented. She was quite hypertensive at home, EMS was called but the patient refused transport. Patient states that she has had a little subjective fevers and chills over the course of the last 2 days. She states that she had an abscess in her mouth that ruptured 2 days ago and on Sunday developed a second area of questionable abscess in the left lower jaw. Patient states she is chronically short of breath secondary to COPD. She does not use CPAP at home when she sleeps but has been told multiple times that she becomes hypoxic when sleeping and requires oxygen supplementation when admitted to the hospital. Patient also endorses a little burning with urination over the past couple of days with mild nausea. No diarrhea or black or bloody stools. No other complaints of recent illness or injury. All other review of systems reviewed and negative except as stated above. Timing/Duration: 1-3 Hours Severity: Moderate Associated Systoms: Nausea/Vomiting (sunday) Allergies and Home Medications Allergies Coded Allergies: NSAIDS (Non-Steroidal Anti-Inflamma (Verified Allergy, Unknown, 11/11/12) Sulfa (Sulfonamide Antibiotics) (Verified Allergy, Unknown, 11/11/12) niacin (Verified Allergy, Unknown, 09/19/11) Uncoded Allergies: IV CONTRAST (Allergy, Unknown, 11/11/12) Home Medications Amlodipine Besylate 10 Mg Tablet, 10 MG PO HS, (Reported) Ascorbate Calcium 500 Mg Tablet, 500 MG PO DAILY, (Reported) Aspirin 81 Mg Tablet.dr, 81 MG PO DAILY Prescribed by: ISELA BAH on 08/20/18 1237 Atorvastatin Calcium 10 Mg Tablet, 10 MG PO HS, (Reported) Betamethasone/Propylene Glyc 15 Gm Cream..g., TOP BID PRN for SORES, (Reported) Calcium Carbonate/Vitamin D3 1 Each Tablet, 1 TAB PO DAILY, (Reported) Cephalexin 500 Mg Tablet, 500 MG PO QID Prescribed by: ARNALDO ARNOLD on 08/02/20 0935 Fluticasone Propionate 16 Gm Anderson.susp, 1 SPRAY NS HS, (Reported) Gabapentin 100 Mg Capsule, 100 MG PO BID, (Reported) Hydrochlorothiazide 12.5 Mg Tablet, 12.5 MG PO DAILY, (Reported) Lisinopril 20 Mg Tablet, 20 MG PO DAILY, (Reported) Methylprednisolone 4 Mg Tab.ds.pk, 4 MG PO UD Prescribed by: STANLEY ALTAMIRANO on 05/11/19 0405 Metoprolol Succinate 200 Mg Tab.er.24h, 200 MG PO HS, (Reported) Multivitamin 1 Each Tablet, 1 TAB PO HS, (Reported) Multivits,Stress Formula 1 Each Tablet, 1 TAB PO HS, (Reported) Omeprazole 40 Mg Capsule.dr, 40 MG PO DAILY, (Reported) Tramadol HCl 50 Mg Tablet, 50 MG PO Q6H PRN for PAIN-MODERATE (5-7) Prescribed by: МАРИЯ MIRZA on 06/01/20 1259 Patient Home Medication List Home Medication List Reviewed: Yes Review of Systems Review of Systems Constitutional: see HPI EENTM: dental problems, mouth pain Respiratory: no symptoms reported Cardiovascular: chest pain Gastrointestinal: abdominal pain Genitourinary: dysuria, hesitancy : No Musculoskeletal: no symptoms reported Skin: no symptoms reported Psychiatric/Neurological: No Symptoms Reported All Other Systems Reviewed Negative Unless Noted: Yes Past Jcrkihq-Zwleeq-Tgjfxl Hx Patient Social History Alcohol Use: Denies Use Number of Drinks Today: Alcohol Beverage of Choice: Wine Smoking Status: Former Smoker Type Used: Cigarettes Former Smoker, Quit: Feb 08, 2011 Recent Infectious Disease Expo: No Recent Hopitalizations: No Immunizations Up To Date Tetanus Booster (TDap): Less than 5yrs Date of Pneumonia Vaccine: Feb 04, 2017 Date of Influenza Vaccine: Feb 04, 2019 Seasonal Allergies Seasonal Allergies: No Past Medical History Surgeries: Yes (CARDIAC AND PERIPHERAL CATHS-STENTS IN BOTH LEGS, AAA, RENAL ARTERIES. ) Adenoidectomy, Cardiac, Ear Surgery, Tonsillectomy, Vascular Surgery Respiratory: Yes Asthma, COPD Cardiac: Yes (CARDIAC & PERIPHERAL CATHS-STENTS IN LEGS, AAA, RENAL ARTERIES. NO CARDIAC ) Aneurysm, Chronic Edema/Swelling, Coronary Artery Disease, High Cholesterol, Hypertension, Peripheral Vascular Neurological: Yes Neuropathy Reproductive Disorders: No (MENOPAUSE AGE 37) RUBBER OFF History: Menopausal Sexually Transmitted Disease: Yes Genitourinary: Yes (RENAL ARTERY STENOSIS-STENTS IN BOTH RENAL ARTERIES; RIGHT KIDNEY IS "") Kidney Infection, Bladder Infection, Renal Failure, UTI-Chronic Gastrointestinal: Yes Gastroesophageal Reflux Musculoskeletal: Yes Arthritis, Fibromyalgia, Chronic Back Pain, Gout Endocrine: Yes (NO MEDICATIONS FOR DIABETES, DOES NOT CHECK BLOOD GLUCOSE. MORBID OBESITY. ) Diabetes, Non-Insulin dep HEENT: Yes (LEFT EAR DRUM RECONSTRUCTION; BLIND IN LEFT EYE. ) Chronic Ear Infection, Glaucoma Loss of Vision: Left Cancer: No Psychosocial: No Integumentary: No Blood Disorders: Yes (ANEMIA) Adverse Reaction/Blood Tranf: No Family Medical History Patient reports no known family medical history. No Pertinent Family Hx Physical Exam Vital Signs Vital Signs - First Documented 08/02/20 07:27 Temp 36.2 Pulse 61 Resp 17 B/P (MAP) 212/91 (131) Pulse Ox 96 O2 Delivery Room Air Capillary Refill : Less Than 3 Seconds Height, Weight, BMI Height: 5'5.00" Weight: 285lbs. 3.0oz. 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 no active drainage, tooth remnant noted in gingiva) Neck: Supple Respiratory: Lungs Clear, Normal Breath Sounds, No Accessory Muscle Use, No Respiratory Distress Cardiovascular: Regular Rate, Rhythm Gastrointestinal: Soft, Tenderness (mild suprapubic tenderness) Extremity: Normal Capillary Refill, Normal Inspection, Normal Range of Motion, Non Tender Neurologic/Psychiatric: Alert, Oriented x3, No Motor/Sensory Deficits Skin: Normal Color, Warm/Dry, Ecchymosis (suprior portion of chest wall around sternal notch) Progress/Results/Core Measures Suspected Sepsis Recent Fever Within 48 Hours: No Infection Criteria Present: None New/Unexplained Altered Menta: No Sepsis Screen: No Definite Risk SIRS Temperature: Pulse: 61 Respiratory Rate: 17 Laboratory Tests 08/02/20 08:57: White Blood Count 5.8 Blood Pressure 212 /91 Mean: 131 Laboratory Tests 08/02/20 08:57: Creatinine 1.21, Platelet Count 170 Results/Orders Lab Results Laboratory Tests Test 08/02/20 08:16 08/02/20 08:57 Range/Units Urine Color YELLOW Urine Clarity CLEAR Urine pH 6.0 5-9 Urine Specific [place] 1.010 L 1.016-1.022 Urine Protein NEGATIVE NEGATIVE Urine Glucose (UA) NEGATIVE NEGATIVE Urine Ketones NEGATIVE NEGATIVE Urine Nitrite POSITIVE H NEGATIVE Urine Bilirubin NEGATIVE NEGATIVE Urine Urobilinogen 0.2 < = 1.0 MG/DL Urine Leukocyte Esterase 2+ H NEGATIVE Urine RBC (Auto) NEGATIVE NEGATIVE Urine RBC NONE /HPF Urine WBC 50-100 H /HPF Urine Squamous Epithelial Cells 2-5 /HPF Urine Crystals NONE /LPF Urine Bacteria LARGE H /HPF Urine Casts NONE /LPF Urine Mucus NEGATIVE /LPF Urine Culture Indicated YES White Blood Count 5.8 4.3-11.0 10^3/uL Red Blood Count 3.71 L 3.80-5.11 10^6/uL Hemoglobin 11.6 11.5-16.0 g/dL Hematocrit 36 35-52 % Mean Corpuscular Volume 97 80-99 fL Mean Corpuscular Hemoglobin 31 25-34 pg Mean Corpuscular Hemoglobin Concent 32 32-36 g/dL Red Cell Distribution Width 13.9 10.0-14.5 % Platelet Count 170 130-400 10^3/uL Mean Platelet Volume 11.0 9.0-12.2 fL Immature Granulocyte % (Auto) 0 % Neutrophils (%) (Auto) 66 42-75 % Lymphocytes (%) (Auto) 22 12-44 % Monocytes (%) (Auto) 7 0-12 % Eosinophils (%) (Auto) 4 0-10 % Basophils (%) (Auto) 1 0-10 % Neutrophils # (Auto) 3.8 1.8-7.8 10^3/uL Lymphocytes # (Auto) 1.3 1.0-4.0 10^3/uL Monocytes # (Auto) 0.4 0.0-1.0 10^3/uL Eosinophils # (Auto) 0.2 0.0-0.3 10^3/uL Basophils # (Auto) 0.0 0.0-0.1 10^3/uL Immature Granulocyte # (Auto) 0.0 0.0-0.1 10^3/uL Sodium Level 134 L 135-145 MMOL/L Potassium Level 5.0 3.6-5.0 MMOL/L Chloride Level 104 98-107 MMOL/L Carbon Dioxide Level 19 L 21-32 MMOL/L Anion Gap 11 5-14 MMOL/L Blood Urea Nitrogen 12 7-18 MG/DL Creatinine 1.21 0.60-1.30 MG/DL Estimat Glomerular Filtration Rate 46 BUN/Creatinine Ratio 10 Glucose Level 142 H 70-105 MG/DL Calcium Level 9.3 8.5-10.1 MG/DL My Orders Orders - ARNALDO ARNOLD MD Cbc With Automated Diff (08/02/20 08:14) Basic Metabolic Panel (08/02/20 08:14) Ua Culture If Indicated (08/02/20 08:14) Lisinopril Tablet (Zestril Tablet) (08/02/20 08:30) Hydrochlorothiazide Cap/Tablet (Hctz Cap (08/02/20 08:30) Urine Culture (08/02/20 08:16) Medications Given in ED Current Medications Medications Dose Ordered Sig/Aramis Route Start Time Stop Time Status Last Admin Dose Admin Hydrochlorothiazide 12.5 mg ONCE ONCE PO 08/02/20 08:30 08/02/20 08:31 DC 08/02/20 08:38 12.5 MG Lisinopril 20 mg ONCE ONCE PO 08/02/20 08:30 08/02/20 08:31 DC 08/02/20 08:38 20 MG Vital Signs/I&O 08/02/20 07:27 Temp 36.2 Pulse 61 Resp 17 B/P (MAP) 212/91 (131) Pulse Ox 96 O2 Delivery Room Air Capillary Refill : Less Than 3 Seconds Blood Pressure Mean: 131 Progress Note : Time: 09:31 Progress Note Patient seen and examined after a period of brief "unresponsiveness" in which it actually appears that the patient was just heavily sleeping. I suspect that Ms. Bailey has some obstructive sleep apnea and probably became hypoxic and that is why she was so hard to rouse. Patient evaluation today includes a physical e xam, CBC, basic metabolic panel and urinalysis. The patient does indeed have a urinary tract infection as she was suspecting. The rest of her labs were unremarkable. Patient's vital signs have been stable throughout her stay here in the emergency department. She has been awake alert and oriented only complaining of some mild to moderate chest discomfort in the area of which she was sternal rubbed by her sister. Patient is strongly encouraged to follow-up with her primary care physician for sleep apnea testing. She will be given prescription for Keflex to treat her urinary tract infection and this is well will hopefully treat any gingival abscess that she may be forming in her mouth. All questions are sought and answered. Patient is stable for discharge. Departure Impression Primary Impression: Urinary tract infection Qualified Codes: N39.0 - Urinary tract infection, site not specified Disposition: 01 HOME, SELF-CARE Condition: Stable Departure-Patient Inst. Decision time for Depature: 09:33 Referrals: WHIT LOVELL DO (PCP/Family) Primary Care Physician Patient Instructions: Urinary Tract Infection, Adult (DC) Add. Discharge Instructions: Drink lots of fluids to stay well-hydrated. Take the Keflex antibiotic 4 times a day for the next week. Return to the emergency room for any worsening abdominal pain, burning with urination, fever or any other emergent concerning symptoms. Please call your primary care physician's office for a follow-up appointment and to possibly be tested for obstructive sleep apnea with a sleep study. Scripts Cephalexin (Cephalexin) 500 Mg Tablet 500 MG PO QID, #28 TAB Prov: ARNALDO ARNOLD MD 08/02/20 Copy Copies To 1: WHIT LOVELL KATHRYN M MD Aug 02, 2020 08:01
[2020-08-02 08:21] LABS: BILIRUBIN,URINE NEGATIVE (NEGATIVE); CLARITY,URINE CLEAR; COLOR,URINE YELLOW; GLUCOSE, URINE (UA) NEGATIVE (NEGATIVE); KETONES,URINE NEGATIVE (NEGATIVE); LEUKOCYTE ESTERASE ,URINE 2+ (NEGATIVE); NITRITE,URINE POSITIVE (NEGATIVE); PROTEIN,URINE NEGATIVE (NEGATIVE)
[2020-08-02 08:30] LABS: BACTERIA,URINE LARGE /HPF; WBC,URINE 50-100 /HPF
[2020-08-02] MEDS ORDERED: lisINopril 20 MG (PRINIVIL) TABLET PO ONE (08:30)
[2020-08-02] MEDS ORDERED: HYDROCHLOROTHIAZIDE 12.5 MG (HCTZ) CAP PO ONE (08:30)
[2020-08-02 09:03] LABS: BASOPHILS % (AUTO) 1 % (0-10); EOSINOPHILS # (AUTO) 0.2 10^3/uL (0.0-0.3); EOSINOPHILS % (AUTO) 4 % (0-10); HEMATOCRIT 36 % (35-52); HEMOGLOBIN 11.6 g/dL (11.5-16.0); LYMPHOCYTES # (AUTO) 1.3 10^3/uL (1.0-4.0); LYMPHOCYTES % (AUTO) 22 % (12-44); MEAN CORPUSCULAR HEMOGLOBIN 31 pg (25-34); MEAN CORPUSCULAR HGB CONC 32 g/dL (32-36); MEAN CORPUSCULAR VOLUME 97 fL (80-99); MONOCYTES # (AUTO) 0.4 10^3/uL (0.0-1.0); MONOCYTES % (AUTO) 7 % (0-12); NEUTROPHILS # (AUTO) 3.8 10^3/uL (1.8-7.8); NEUTROPHILS % (AUTO) 66 % (42-75); PLATELET COUNT 170 10^3/uL (130-400); WHITE BLOOD COUNT 5.8 10^3/uL (4.3-11.0)
[2020-08-02 09:16] LABS: CALCIUM 9.3 MG/DL (8.5-10.1)
[2020-08-02 09:21] LABS: CREATININE SERUM 1.21 MG/DL (0.60-1.30)
[2020-08-02] MEDS ORDERED: CEPH500T PO (09:35)
[2020-08-02 09:40] VITALS: BP 155/75
== END 2020-08-02 09:40 | disposition home or self-care (01) ==
LOC: EDUNIT# 07:18 → ER 07:20
DX: N39.0 Urinary tract infection, site not specified (principal); I10 Essential (primary) hypertension; E78.00 Pure hypercholesterolemia, unspecified; K21.9 Gastro-esophageal reflux disease without esophagitis; I25.10 Atherosclerotic heart disease of native coronary artery without angina pectoris; E66.01 Morbid (severe) obesity due to excess calories; Z68.42 Body mass index [BMI] 45.0-49.9, adult; Z79.52 Long term (current) use of systemic steroids; J44.9 Chronic obstructive pulmonary disease, unspecified; Z88.6 Allergy status to analgesic agent; Z88.2 Allergy status to sulfonamides; Z91.041 Radiographic dye allergy status; Z87.891 Personal history of nicotine dependence; Z79.82 Long term (current) use of aspirin
CPT/HCPCS: 36415; 80048; 81000; 85025; 87077; 87088; 87186; 99283

== ENCOUNTER 2021-01-16 20:09 | Emergency (ER) | payer OTHER ==
[~2021-01-16] VITALS: Ht 165 cm; Wt 131.0 kg
[~2021-01-16 20:09] MED LIST changes: +CEPH500T PO; -OMEP40CA27 PO; +OMEP40CA6 PO
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
[2021-01-16 21:24] VITALS: BP 127/65
== END 2021-01-16 21:42 | disposition home or self-care (01) ==
LOC: EDUNIT# 20:09 → ER 20:14
DX: S60.221A Contusion of right hand, initial encounter (principal); J44.9 Chronic obstructive pulmonary disease, unspecified; I10 Essential (primary) hypertension; I25.10 Atherosclerotic heart disease of native coronary artery without angina pectoris; E78.00 Pure hypercholesterolemia, unspecified; K21.9 Gastro-esophageal reflux disease without esophagitis; E11.9 Type 2 diabetes mellitus without complications; Z79.82 Long term (current) use of aspirin; Z79.899 Other long term (current) drug therapy; W22.8XXA Striking against or struck by other objects, initial encounter
CPT/HCPCS: 29125; 73130

== ENCOUNTER → 2021-01-26 | Outpatient (CLI) | payer OTHER ==
--- NOTE | 2021-01-26 10:49 | Diagnostic Imaging Report ---
Exam: CT right hand without contrast. Date: January 26, 2021. Indication: 60-year-old female, right fifth finger pain. Comparison: Radiographs January 16, 2021. Technique: Axial CT images the right hand were obtained without contrast. Coronal and sagittal reformats were obtained and provided. All CT scans use one or more of the following dose optimizing techniques: automated exposure control, MA and/or KvP adjustment based on patient size and exam type or iterative reconstruction. . Findings: There is no identified acute fracture. There is no subluxation or dislocation. There is mild arthritis at the third metacarpophalangeal joint. There is no identified bone erosion. The additional joint spaces are well preserved. There is no radiopaque foreign body. There is no prominent focal soft tissue swelling. Impression: 1. No acute bony abnormality of the right hand. 2. 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 Dictated by: Dictated on workstation # [id number]
== END ==
LOC: RAD 09:17
PROVIDERS: ATTEND Physician Assistant
DX: M19.041 Primary osteoarthritis, right hand (principal)
CPT/HCPCS: 73200

== ENCOUNTER → 2021-09-06 | Outpatient (CLI) | payer OTHER ==
[~2021-09-06] MED LIST changes: +CYCL10TA25 PO; -CYCL10TA9 PO
== END ==
LOC: WOUNDCARE 09:07
PROVIDERS: ATTEND Family Medicine
DX: E11.621 Type 2 diabetes mellitus with foot ulcer (principal); L97.522 Non-pressure chronic ulcer of other part of left foot with fat layer exposed; L97.512 Non-pressure chronic ulcer of other part of right foot with fat layer exposed; B35.3 Tinea pedis; E66.01 Morbid (severe) obesity due to excess calories; E11.22 Type 2 diabetes mellitus with diabetic chronic kidney disease; N18.30 Chronic kidney disease, stage 3 unspecified; I25.10 Atherosclerotic heart disease of native coronary artery without angina pectoris
CPT/HCPCS: 99214

== ENCOUNTER → 2021-09-06 | Outpatient (CLI) | payer OTHER ==
[2021-09-06 11:15] LABS: BASOPHILS % (AUTO) 1 % (0-10); EOSINOPHILS # (AUTO) 0.3 10^3/uL (0.0-0.3); EOSINOPHILS % (AUTO) 4 % (0-10); HEMATOCRIT 37 % (35-52); HEMOGLOBIN 11.9 g/dL (11.5-16.0); LYMPHOCYTES # (AUTO) 1.3 10^3/uL (1.0-4.0); LYMPHOCYTES % (AUTO) 21 % (12-44); MEAN CORPUSCULAR HEMOGLOBIN 32 pg (25-34); MEAN CORPUSCULAR HGB CONC 32 g/dL (32-36); MEAN CORPUSCULAR VOLUME 98 fL (80-99); MEAN PLATELET VOLUME 11.4 fL (9.0-12.2); MONOCYTES # (AUTO) 0.3 10^3/uL (0.0-1.0); MONOCYTES % (AUTO) 5 % (0-12); NEUTROPHILS % (AUTO) 68 % (42-75); PLATELET COUNT 140 10^3/uL (130-400); WHITE BLOOD COUNT 5.9 10^3/uL (4.3-11.0)
[2021-09-06 11:35] LABS: ALBUMIN 4.3 GM/DL (3.2-4.5); BILIRUBIN,TOTAL 0.6 MG/DL (0.1-1.0); CALCIUM 9.7 MG/DL (8.5-10.1); CREATININE SERUM 1.15 MG/DL (0.60-1.30); POTASSIUM 4.5 MMOL/L (3.6-5.0); TOTAL PROTEIN 7.4 GM/DL (6.4-8.2)
== END ==
LOC: RAD 10:28
PROVIDERS: ATTEND Family Medicine
DX: E11.621 Type 2 diabetes mellitus with foot ulcer (principal); L97.522 Non-pressure chronic ulcer of other part of left foot with fat layer exposed; L97.512 Non-pressure chronic ulcer of other part of right foot with fat layer exposed; B35.3 Tinea pedis; E66.01 Morbid (severe) obesity due to excess calories; E11.22 Type 2 diabetes mellitus with diabetic chronic kidney disease; N18.30 Chronic kidney disease, stage 3 unspecified; I25.10 Atherosclerotic heart disease of native coronary artery without angina pectoris
CPT/HCPCS: 36415; 80053; 83036; 85025

== ENCOUNTER 2021-11-21 00:30 | Observation (INO) | payer OTHER ==
[~2021-11-21] VITALS: Ht 165.1 cm; Wt 131.1 kg
[2021-11-21] VITALS (11 sets, daily range): BP systolic 132–191; BP diastolic 54–85
[~2021-11-21 00:30] MED LIST changes: -FLUT16SP22 NS; +FLUT16SP22 NSEACH
[2021-11-21] MEDS ORDERED: ASPIRIN 81 MG CHEW (CHILDREN'S ASA) PO ONE (00:45)
[2021-11-21] MEDS ORDERED: NITROGLYCERIN 0.4 MG SL TABS BTL 25'S SL PRN ×2 (00:45→04:45)
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
[2021-11-21 00:56] LABS: BASOPHILS % (AUTO) 1 % (0-10); EOSINOPHILS # (AUTO) 0.3 10^3/uL (0.0-0.3); EOSINOPHILS % (AUTO) 4 % (0-10); HEMATOCRIT 36 % (35-52); HEMOGLOBIN 11.6 g/dL (11.5-16.0); LYMPHOCYTES % (AUTO) 30 % (12-44); MEAN CORPUSCULAR HEMOGLOBIN 31 pg (25-34); MEAN CORPUSCULAR HGB CONC 32 g/dL (32-36); MEAN CORPUSCULAR VOLUME 96 fL (80-99); MONOCYTES # (AUTO) 0.5 10^3/uL (0.0-1.0); MONOCYTES % (AUTO) 8 % (0-12); NEUTROPHILS # (AUTO) 3.8 10^3/uL (1.8-7.8); NEUTROPHILS % (AUTO) 57 % (42-75); PLATELET COUNT 189 10^3/uL (130-400); WHITE BLOOD COUNT 6.6 10^3/uL (4.3-11.0)
[2021-11-21 01:07] LABS: ALBUMIN 4.9 GM/DL (3.2-4.5)
[2021-11-21 01:08] LABS: CHLORIDE 103 MMOL/L (98-107); SODIUM 136 MMOL/L (135-145)
[2021-11-21 01:09] LABS: AMYLASE 42 U/L (25-125); CALCIUM 10.1 MG/DL (8.5-10.1)
[2021-11-21 01:10] LABS: GLUCOSE 149 MG/DL (70-105); TOTAL PROTEIN 8.2 GM/DL (6.4-8.2)
[2021-11-21 01:11] LABS: CARBON DIOXIDE 19 MMOL/L (21-32); FIBRIN DEGRADATION PRODUCTS 0.62 UG/ML (0.00-0.49); INR 0.9 (0.8-1.4); PROTHROMBIN TIME PATIENT 12.6 SEC (12.2-14.7)
[2021-11-21 01:12] LABS: BILIRUBIN,TOTAL 0.4 MG/DL (0.1-1.0)
[2021-11-21 01:13] LABS: ALKALINE PHOSPHATASE 95 U/L (40-136)
[2021-11-21 01:14] LABS: CREATININE SERUM 1.64 MG/DL (0.60-1.30); GFR ESTIMATED 36
[2021-11-21 01:15] LABS: BUN/CREATININE RATIO 14
[2021-11-21 01:16] LABS: ALANINE AMINOTRANSFERASE 21 U/L (0-55); MAGNESIUM 1.6 MG/DL (1.6-2.4)
[2021-11-21 01:17] LABS: CREATINE KINASE 104 U/L (29-168); LIPASE 41 U/L (8-78)
[2021-11-21 01:25] LABS: CREATINE KINASE MB 1.4 NG/ML (<6.6)
[2021-11-21] MEDS ORDERED: 1/2 NS IV SOLUTION 1,000 ML IV ONE (03:18)
[2021-11-21] MEDS: 1/2 NS IV SOLUTION 1,000 ML IV SCH ×2 (04:38→15:44)
[2021-11-21] MEDS ORDERED: ONDANSETRON 4 MG/2 ML (SDV) Z0FRAN IVP PRN (04:45)
[2021-11-21] MEDS ORDERED: morphine INJ 4 MG/ML 1 ML (VIAL/SYRINGE) IV PRN (04:45)
[2021-11-21 05:52] LABS: TRIGLYCERIDES 229 MG/DL (<150); VLDL CHOLESTEROL 46 MG/DL (5-40)
[2021-11-21 05:57] LABS: CHOLESTEROL 149 MG/DL (< 200)
[2021-11-21 05:58] LABS: HDL CHOLESTEROL 30 MG/DL (40-60)
--- NOTE | 2021-11-21 07:25 | Diagnostic Imaging Report ---
EXAM: CHEST 1 VIEW, AP/PA ONLY INDICATION: Chest pain. COMPARISON: 03/08/2019. FINDINGS: Normal heart size and central pulmonary vascularity. Mild atelectasis or infiltrate left lung base. No pleural effusion or pneumothorax. No acute osseous findings. IMPRESSION: Mild atelectasis or infiltrate in the left lung base. Dictated by: Dictated on workstation # [id number]
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
[2021-11-21] MEDS ORDERED: REGADENOSON 0.4 MG/5 ML SYR (LEXISCAN) IV ONE ×2 (09:00→12:35)
[2021-11-21] MEDS ORDERED: ASPIRIN E.C. 81 MG (ECOTRIN) TAB PO SCH (09:00)
[2021-11-21] MEDS ORDERED: AMLO-251 PO (15:02)
[2021-11-21] MEDS ORDERED: ALLO100T PO (15:02)
[2021-11-21] MEDS ORDERED: ACET-2267 PO (15:02)
[2021-11-21] MEDS ORDERED: CALC600T80 PO (15:02)
[2021-11-21] MEDS ORDERED: LISI20TA26 PO (15:02)
[2021-11-21] MEDS ORDERED: OMEP40CA6 PO (15:02)
[2021-11-21] MEDS ORDERED: FURO20TA4 PO (15:02)
[2021-11-21] MEDS ORDERED: ATOR20TA66 PO (15:02)
[2021-11-21] MEDS ORDERED: METO200T48 PO (15:02)
[2021-11-21] MEDS ORDERED: ASPI-1238 PO (15:02)
[2021-11-21] MEDS ORDERED: HYDR12.56 PO (15:02)
[2021-11-21] MEDS ORDERED: DICL100G13 TP (15:06)
[2021-11-21] MEDS ORDERED: lisINopril 20 MG (PRINIVIL) TABLET PO ONE (15:30)
[2021-11-21] MEDS ORDERED: lisINopril 20 MG (PRINIVIL) TABLET ONE (15:41)
--- NOTE | 2021-11-21 18:26 | Consultation-Cardiology ---
HPI-Cardiology Cardiology Consultation: Date of Consultation 11/21/21 Time Seen by a Provider: 17:15 Date of Admission Attending Physician Emma Moreno DO Admitting Physician Admitting Physician: Madiha Valerio DO Attending Physician: Isela Bah MD Consulting Physician MARY CORBETT MD, MA, FACP, FACC, FSCAI, CCDS HPI: Chief Complaint: Chest pain Ms. Bailey is a 60 yr old female who has been admitted to [facility] from the ED with c/o chest discomfort. She reports last night she was getting gas when her car wouldn't start. 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 She reports she then developed localized, upper ACW pressure which did not radiate. She reports it was a mild ache that would come and go as she was sitting down waiting on her to arrive. The pressure lasted for several hours. She reports she received 1 nitro sublingual in the ED and the pressure has not returned. She denies any associated symptoms. No palpitations, SOB, diaphoresis. No c/o syncope or near syncope. No c/o LE swelling. She reports she is pain free. Her PCP is BRANDI Russ at [facility]. Review of Systems-Cardiology Review of Systems Constitutional: No chills, No fever, No malaise Ears/Nose/Throat: No epistaxis, No recent hearing loss Respiratory: As described under HPI Cardiovascular: As described under HPI Gastrointestinal: As described under HPI Genitourinary: No dysuria Musculoskeletal: joint pain (chronic) Skin: No rash on exposed areas, No ulcerations on exposed areas Psychiatric/Neurological: No anxiety, No depression, No seizure, No focal weakness, No syncope Hematologic: No bleeding abnormalities CDJ-Hvfrnq-Dtsiqd Hx Patient Social History Smoking Status: Former Smoker Former smoker/When Quit: May 07, 2011 Have you traveled recently?: No Alcohol Use?: No Pt feels they are or have been: No Immunizations Up To Date Tetanus Booster (TDap): Less than 5yrs Date of Pneumonia Vaccine: Feb 04, 2017 Date of Influenza Vaccine: Feb 04, 2019 Past Medical History PMH As described under Assessment. Family Medical History Family Medical History: She reports he father had CAD and a pacemaker. She reports her mother had "heart trouble", but does not know the details. Family History: Patient reports no known family medical history. Allergies and Home Medications Allergies Coded Allergies: NSAIDS (Non-Steroidal Anti-Inflamma (Verified Allergy, Unknown, 11/11/12) Sulfa (Sulfonamide Antibiotics) (Verified Allergy, Unknown, 11/11/12) aliskiren (Verified Allergy, Unknown, 11/21/21) niacin (Verified Allergy, Unknown, 09/19/11) nitrofurantoin (Verified Allergy, Unknown, 11/21/21) Uncoded Allergies: IV CONTRAST (Allergy, Unknown, 11/11/12) Patient Home Medication List Home Medication List Reviewed: Yes Acetaminophen (Tylenol Extra Strength) 500 Mg Tablet, 1,000 MG PO Q8H PRN for PAIN-MILD (1-4), (Reported) Entered as Reported by: GREGG ANDREWS on 11/21/211501 Last Action: Reviewed Allopurinol (Allopurinol) 100 Mg Tablet, 100 MG PO DAILY, (Reported) Entered as Reported by: GREGG ANDREWS on 11/21/211501 Last Action: Reviewed Amlodipine Besylate (Amlodipine Besylate) 10 Mg Tablet, 10 MG PO 1900, (Reported) Entered as Reported by: GREGG ANDREWS on 11/21/211501 Last Action: Continued Ascorbate Calcium (Vitamin C) 500 Mg Tablet, 500 MG PO DAILY, (Reported) Entered as Reported by: JIM GRIMES on 02/08/18 0941 Last Action: Reviewed Aspirin (Aspirin EC) 81 Mg Tablet.dr, 81 MG PO DAILY, (Reported) Entered as Reported by: GREGG ANDREWS on 11/21/211501 Last Action: Reviewed Atorvastatin Calcium (Atorvastatin Calcium) 20 Mg Tablet, 20 MG PO 1900, (Reported) Entered as Reported by: GREGG ANDREWS on 11/21/211501 Last Action: Reviewed Calcium Carbonate (Calcium Carbonate) 600 Mg Calcium (1500 Mg) Tablet, 600 MG PO DAILY, (Reported) Entered as Reported by: GREGG ANDREWS on 11/21/211501 Last Action: Reviewed Diclofenac Sodium (Diclofenac Sodium) 1 % Gel..gram., 1 APPLIC TP QID PRN for PAIN-BREAKTHROUGH, (Reported) Entered as Reported by: GREGG ANDREWS on 11/21/211505 Last Action: Reviewed Fluticasone Propionate (Fluticasone Propionate) 50 Mcg/Actuation [place].susp, 1 SPRAY [place] HS, (Reported) Entered as Reported by: JIM GRIMES on 02/08/1833 Last Action: Reviewed Furosemide (Furosemide) 20 Mg Tablet, 20 MG PO DAILY, (Reported) Entered as Reported by: GREGG ANDREWS on 11/21/211501 Last Action: Reviewed Gabapentin (Gabapentin) 100 Mg Capsule, 100 MG PO BID, (Reported) Entered as Reported by: OLAF BAUM on 02/08/18213 Last Action: Reviewed Hydrochlorothiazide (Hydrochlorothiazide) 12.5 Mg Tablet, 12.5 MG PO DAILY, (Reported) Entered as Reported by: GREGG ANDREWS on 11/21/211501 Last Action: Converted Lisinopril (Lisinopril) 20 Mg Tablet, 20 MG PO DAILY, (Reported) Entered as Reported by: GREGG ANDREWS on 11/21/211501 Last Action: Continued Metoprolol Succinate (Metoprolol Succinate) 200 Mg Tab.er.24h, 200 MG PO 1900, (Reported) Entered as Reported by: GREGG ANDREWS on 11/21/211501 Last Action: Converted Multivitamin (Daily Vitamin Formula) 1 Each Tablet, 1 TAB PO 0, (Reported) Entered as Reported by: JIM GRIMES on 08/19/18855 Last Action: Reviewed Omeprazole (Omeprazole) 40 Mg Capsule.dr, 40 MG PO DAILY, (Reported) Entered as Reported by: GREGG ANDREWS on 11/21/211501 Last Action: Reviewed Discontinued Medications Amlodipine Besylate (Amlodipine Besylate) 10 Mg Tablet, 10 MG PO HS, (Reported) Discontinued Reason: Duplicate Order Entered as Reported by: JIM GRIMES on 08/19/1856 Last Action: Discontinued Aspirin (Aspirin EC) 81 Mg Tablet.dr, 81 MG PO DAILY Discontinued Reason: Duplicate Order Prescribed by: ISELA BAH on 08/20/18 1237 Last Action: Discontinued Atorvastatin Calcium (Atorvastatin Calcium) 10 Mg Tablet, 10 MG PO HS, (Reported) Discontinued Reason: Duplicate Order Entered as Reported by: OLAF BAUM on 02/08/18213 Last Action: Discontinued Betamethasone/Propylene Glyc (Betamethasone Dp Aug 0.05% Crm) 15 Gm Cream..g., TOP BID PRN for SORES, (Reported) Discontinued Reason: Duplicate Order Entered as Reported by: JIM GRIMES on 08/19/18 0856 Last Action: Discontinued Calcium Carbonate/Vitamin D3 (Calcium 500 + D Tablet) 1 Each Tablet, 1 TAB PO DAILY, (Reported) Discontinued Reason: Prescription changed Entered as Reported by: JIM GRIMES on 02/08/18940 Cephalexin (Cephalexin) 500 Mg Tablet, 500 MG PO QID Discontinued Reason: Duplicate Order Prescribed by: ARNALDO ARNOLD on 08/02/20 0935 Last Action: Discontinued Hydrochlorothiazide (Hydrochlorothiazide) 12.5 Mg Tablet, 12.5 MG PO DAILY, (Reported) Discontinued Reason: Duplicate Order Entered as Reported by: OLAF BAUM on 02/08/18213 Last Action: Discontinued Lisinopril (Lisinopril) 20 Mg Tablet, 20 MG PO DAILY, (Reported) Discontinued Reason: Duplicate Order Entered as Reported by: OLAF BAUM on 02/08/18213 Last Action: Discontinued Methylprednisolone (Medrol) 4 Mg Tab.ds.pk, 4 MG PO UD Discontinued Reason: Duplicate Order Prescribed by: STANLEY ALTAMIRANO on 05/11/19 0405 Last Action: Discontinued Metoprolol Succinate (Metoprolol Succinate) 200 Mg Tab.er.24h, 200 MG PO HS, (Reported) Discontinued Reason: Duplicate Order Entered as Reported by: JIM GRIMES on 02/08/18 0943 Last Action: Discontinued Multivits,Stress Formula (Stress Formula) 1 Each Tablet, 1 TAB PO HS, (Reported) Discontinued Reason: Duplicate Order Entered as Reported by: JIM GRIMES on 02/08/18940 Last Action: Discontinued Omeprazole (Omeprazole) 40 Mg Capsule.dr, 40 MG PO DAILY, (Reported) Discontinued Reason: Duplicate Order Entered as Reported by: JIM GRIMES on 08/19/18 08 Last Action: Discontinued Tramadol HCl (Ultram) 50 Mg Tablet, 50 MG PO Q6H PRN for PAIN-MODERATE (5-7) Discontinued Reason: Duplicate Order Prescribed by: МАРИЯ MIRZA on 06/01/20 1259 Last Action: Discontinued Physical Exam-Cardiology Physical Exam Vital Signs/I&O 11/21/21 11/21/21 11/21/21 11/21/21 07:00 07:00 08:00 08:24 Temp 36.3 Pulse 67 61 60 Resp 16 15 B/P (MAP) 162/74 (103) 145/62 (89) Pulse Ox 92 93 93 O2 Delivery Room Air Room Air Room Air 11/21/21 11/21/21 12:39 15:34 Temp 36.2 Pulse 71 71 Resp 18 B/P (MAP) 191/85 (120) 172/76 (108) Pulse Ox 98 O2 Delivery Room Air Capillary Refill : Less Than 3 Seconds Constitutional: AAO x 3, well-developed, well-nourished HEENT: hearing is well preserved; No oral hygience is good (poor dentition) Neck: No carotid bruit; carotid pulses are 2 + bilaterally Respiratory: No accessory muscle use, No respiratory distress; chest expansion is symmetric, chest is bilaterally symmetric, lungs clear to auscultation Cardiovascular: regular rate-rhythm; No JVD; S1 and S2 Gastrointestinal: No tender; soft, round, audible bowel sounds Extremities: no lower extremity edema bilateral Neurologic/Psychiatric: grossly intact (moves all extremities) Skin: No rash on exposed areas, No ulcerations on exposed areas Data Review Labs Laboratory Tests 11/21/21 00:45: White Blood Count 6.6, Red Blood Count 3.76L, Hemoglobin 11.6, Hematocrit 36, Mean Corpuscular Volume 96, Mean Corpuscular Hemoglobin 31, Mean Corpuscular Hemoglobin Concent 32, Red Cell Distribution Width 14.1, Platelet Count 189, Mean Platelet Volume 11.0, Immature Granulocyte % (Auto) 0, Neutrophils (%) (Auto) 57, Lymphocytes (%) (Auto) 30, Monocytes (%) (Auto) 8, Eosinophils (%) (Auto) 4, Basophils (%) (Auto) 1, Neutrophils # (Auto) 3.8, Lymphocytes # (Auto) 2.0, Monocytes # (Auto) 0.5, Eosinophils # (Auto) 0.3, Basophils # (Auto) 0.0, Immature Granulocyte # (Auto) 0.0, Prothrombin Time 12.6, INR Comment 0.9, Activated Partial Thromboplast Time 30, D-Dimer 0.62H, Sodium Level 136, Po tassium Level 4.0, Chloride Level 103, Carbon Dioxide Level 19L, Anion Gap 14, Blood Urea Nitrogen 23H, Creatinine 1.64H, Estimat Glomerular Filtration Rate 36, BUN/Creatinine Ratio 14, Glucose Level 149H, Calcium Level 10.1, Corrected Calcium , Magnesium Level 1.6, Total Bilirubin 0.4, Aspartate Amino Transf (AST/SGOT) 19, Alanine Aminotransferase (ALT/SGPT) 21, Alkaline Phosphatase 95, Total Creatine Kinase 104, Creatine Kinase MB 1.4, Myoglobin 96.7H, Troponin I < 0.028, B-Type Natriuretic Peptide 30.4, Total Protein 8.2, Albumin 4.9H, Amylase Level 42, Lipase 41 11/21/21 05:35: Troponin I < 0.028, Triglycerides Level 229H, Cholesterol Level 149, LDL Cholesterol Direct 90, VLDL Cholesterol 46H, HDL Cholesterol 30L 11/21/21 08:14: Troponin I < 0.028 A/P-Cardiology Assessment/Admission Diagnosis Chest pain, noncardiac, etiology undetermine - no evidence of ACS CAD - Card cath of 02/08/18 (Dr Smith): mild coronary artery disease nonobstructive disease 40 percent ostial LAD otherwise no significant obstructive disease, no rmal left ventricular end-diastolic pressure. 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 - Peripheral angio of 02/08/18 (Dr Smith): patent abdominal aortic stent, patent right renal artery stent with mild ostial stenosis, occluded left renal artery CKD-4 DM 2 Hypertension Hyperlipidemia Quit smoking in or around 2009 COPD Obesity, BMI 48 Peripheral neuropathy GERD Discussion and Recomendations * I had a long and detailed discussion with her regarding her CV issues and CV w/u carried out today (summarized above) * Chest discomfort does not appear to be of cardiac origin. We recommend a w/u for noncardiac causes of chest pain * I informed her of her pulmonary hypertension. This would need a full w/u, including a sleep study. She understands and states will f/u with her pcp for such w/u and to see if the pcp thinks that she should get a pulm consult. Pulm htn doesn't be appear to be hear-related * Ok for d/c from cardiac standpoint. 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
[2021-11-21] MEDS ORDERED: meTOprolol SUCCINATE 100 MG (TOPROL XL) TAB PO SCH (19:00)
[2021-11-21] MEDS ORDERED: amLODIPine 10 MG (NORVASC) TAB PO SCH (19:00)
[2021-11-21] MEDS ORDERED: NON-FORMULARY MEDICATION 1 EA EA (Metoprolol Succinate 200 MG) PO SCH (19:00)
--- NOTE | 2021-11-21 21:08 | Short Stay Summary ---
HPI History of Present Illness: 60 yo F that presented with chest pain. Patient was pushing her car yesterday and she started to have worsening chest pain. She has a h/o chest pain and has had normal cath's previously. Denies any radiation or jaw pain. Patient states that she did not miss any of her medications. She has been feeling more fatigued for the last few days. Source: patient Exam Limitations: no limitations Date seen by provider: Nov 21, 2021 Time Seen by Provider: 09:55 Attending Physician Emma Moreno DO PCP Admitting Physician: Madiha Valerio DO Attending Physician: Isela Bah MD Consult Date of Admission Nov 21, 2021 at 01:40 Home Medications Home Medications Reviewed patient Home Medication Reconciliation performed by pharmacy medication reconciliations urgent care technician and/or nursing. Patients Allergies have been reviewed. Allergies Coded Allergies: NSAIDS (Non-Steroidal Anti-Inflamma (Verified Allergy, Unknown, 11/11/12) Sulfa (Sulfonamide Antibiotics) (Verified Allergy, Unknown, 11/11/12) aliskiren (Verified Allergy, Unknown, 11/21/21) niacin (Verified Allergy, Unknown, 09/19/11) nitrofurantoin (Verified Allergy, Unknown, 11/21/21) Uncoded Allergies: IV CONTRAST (Allergy, Unknown, 11/11/12) WFR-Osytih-Dnmjpu Hx Patient Social History Smoking Status: Former Smoker Former smoker/When Quit: May 07, 2011 Recent Hopitalizations: No Alcohol Use?: No Have you traveled recently?: No Immunizations Up To Date Tetanus Booster (TDap): Less than 5yrs Influenza Vaccine Up-to-Date: Yes; Up-to-Date First/Initial COVID19 Vaccinat: 06/10/20 Second COVID19 Vaccination Tal: 06/10/20 Third COVID19 Vaccination Date: 06/10/20 Past Medical History Medical Hx: 1. COPD 2. Abdominal anuerysm s/p repair and stent graft 3. Hypertension 4. Neuropathy 5. Urinary incontinence 6. Acid reflux 7. Stage III kidney disease 8. Renal artery stenosis s/p bilateral renal artery stenting 9. Atherosclerotic occlusive disease 10. Hyperlipidemia 11. Chronic back pain 12. Blindness in left eye secondary to glaucoma 13. History of tobaccoism 14. Prediabetes 15. Peripheral Vascular Disease 16. Non-alcoholic hepatic steatosis 17. Right Upper Lung Nodule 18. Osteoarthritis, Fibromyalgia 19. Medical Non-compliance Surg Hx: 1. Left renal artery stent 2007 and 2010, Right renal artery stent 2010 2. Abdominal aortic stent graft 2007 3. Cardiac cath x 3- non-occlusive disease 4. Left TM reconstruction 5. Vascular stenting to stomach and bilateral legs 6. T&A Family Medical History Significant Family History: No Pertinent Family Hx Family History: Patient reports no known family medical history. Review of Systems ([facility]) Constitutional: malaise EENTM: no symptoms reported Respiratory: no symptoms reported Cardiovascular: chest pain Gastrointestinal: no symptoms reported Genitourinary: no symptoms reported : No Musculoskeletal: no symptoms reported Skin: no symptoms reported Psychiatric/Neurological: No Symptoms Reported Reviewed Test Results Reviewed Test Results Lab Laboratory Tests Test 11/21/21 00:45 11/21/21 05:35 11/21/21 08:14 Range/Units White Blood Count 6.6 4.3-11.0 10^3/uL Red Blood Count 3.76 L 3.80-5.11 10^6/uL Hemoglobin 11.6 11.5-16.0 g/dL Hematocrit 36 35-52 % Mean Corpuscular Volume 96 80-99 fL Mean Corpuscular Hemoglobin 31 25-34 pg Mean Corpuscular Hemoglobin Concent 32 32-36 g/dL Red Cell Distribution Width 14.1 10.0-14.5 % Platelet Count 189 130-400 10^3/uL Mean Platelet Volume 11.0 9.0-12.2 fL Immature Granulocyte % (Auto) 0 % Neutrophils (%) (Auto) 57 42-75 % Lymphocytes (%) (Auto) 30 12-44 % Monocytes (%) (Auto) 8 0-12 % Eosinophils (%) (Auto) 4 0-10 % Basophils (%) (Auto) 1 0-10 % Neutrophils # (Auto) 3.8 1.8-7.8 10^3/uL Lymphocytes # (Auto) 2.0 1.0-4.0 10^3/uL Monocytes # (Auto) 0.5 0.0-1.0 10^3/uL Eosinophils # (Auto) 0.3 0.0-0.3 10^3/uL Basophils # (Auto) 0.0 0.0-0.1 10^3/uL Immature Granulocyte # (Auto) 0.0 0.0-0.1 10^3/uL Prothrombin Time 12.6 12.2-14.7 SEC INR Comment 0.9 0.8-1.4 Activated Partial Thromboplast Time 30 24-35 SEC D-Dimer 0.62 H 0.00-0.49 UG/ML Sodium Level 136 135-145 MMOL/L Potassium Level 4.0 3.6-5.0 MMOL/L Chloride Level 103 98-107 MMOL/L Carbon Dioxide Level 19 L 21-32 MMOL/L Anion Gap 14 5-14 MMOL/L Blood Urea Nitrogen 23 H 7-18 MG/DL Creatinine 1.64 H 0.60-1.30 MG/DL Estimat Glomerular Filtration Rate 36 BUN/Creatinine Ratio 14 Glucose Level 149 H 70-105 MG/DL Calcium Level 10.1 8.5-10.1 MG/DL Corrected Calcium 8.5-10.1 MG/DL Magnesium Level 1.6 1.6-2.4 MG/DL Total Bilirubin 0.4 0.1-1.0 MG/DL Aspartate Amino Transf (AST/SGOT) 19 5-34 U/L Alanine Aminotransferase (ALT/SGPT) 21 0-55 U/L Alkaline Phosphatase 95 40-136 U/L Total Creatine Kinase 104 29-168 U/L Creatine Kinase MB 1.4 <6.6 NG/ML Myoglobin 96.7 H 10.0-92.0 NG/ML Troponin I < 0.028 < 0.028 < 0.028 <0.028 NG/ML B-Type Natriuretic Peptide 30.4 <100.0 PG/ML Total Protein 8.2 6.4-8.2 GM/DL Albumin 4.9 H 3.2-4.5 GM/DL Amylase Level 42 25-125 U/L Lipase 41 8-78 U/L Triglycerides Level 229 H <150 MG/DL Cholesterol Level 149 < 200 MG/DL LDL Cholesterol Direct 90 1-129 MG/DL VLDL Cholesterol 46 H 5-40 MG/DL HDL Cholesterol 30 L 40-60 MG/DL Radiology NAME: PAMELLA TORRES [facility] REC#: [id number] PT STATUS: ADM Rosie : 1960 PHYSICIAN: STANLEY ALTAMIRANO DO ADMIT DATE: 11/21/21/[facility] Draft Date of Exam:11/21/21 CHEST 1 VIEW, AP/PA ONLY EXAM: CHEST 1 VIEW, AP/PA ONLY INDICATION: Chest pain. COMPARISON: 03/08/2019. FINDINGS: Normal heart size and central pulmonary vascularity. Mild atelectasis or infiltrate left lung base. No pleural effusion or pneumothorax. No acute osseous findings. IMPRESSION: Mild atelectasis or infiltrate in the left lung base. Dictated on workstation # [id number] Dict: 11/21/21720 Trans: 11/21/21723 [facility] [id number] Interpreted by: ADAM ALVARADO MD Electronically signed by: Physical Exam-([facility]) Physical Exam Vital Signs VS - Last 72 Hours, by Label 11/21/21 11/21/21 11/21/21 11/21/21 00:38 02:35 03:00 03:03 Temp 36.9 36.7 Pulse 72 56 55 Resp 16 16 B/P (MAP) 193/109 (137) 167/97 Pulse Ox 99 99 O2 Delivery Room Air Room Air Room Air 11/21/21 11/21/21 11/21/21 11/21/21 03:03 03:15 03:30 03:45 Temp 36.2 Pulse 56 54 56 62 Resp 17 13 17 13 B/P (MAP) 168/78 (108) 154/54 (100) 161/78 (112) 132/67 (93) Pulse Ox 96 94 95 91 O2 Delivery Room Air Room Air Room Air Room Air 11/21/21 11/21/21 11/21/21 11/21/21 04:00 05:00 06:00 07:00 Pulse 55 60 54 67 Resp 12 11 13 16 B/P (MAP) 133/56 (81) 136/60 (85) 142/59 (94) 162/74 (103) Pulse Ox 89 86 92 92 O2 Delivery Room Air Room Air Room Air Room Air 11/21/21 11/21/21 11/21/21 11/21/21 07:00 08:00 08:24 12:39 Temp 36.3 Pulse 61 60 71 Resp 15 B/P (MAP) 145/62 (89) 191/85 (120) Pulse Ox 93 93 O2 Delivery Room Air Room Air 11/21/21 11/21/21 15:34 19:00 Temp 36.2 Pulse 71 73 Resp 18 B/P (MAP) 172/76 (108) Pulse Ox 98 O2 Delivery Room Air Capillary Refill : Less Than 3 Seconds General Appearance: WD/WN, no apparent distress, obese HEENT: PERRL/EOMI Neck: non-tender, full range of motion, supple Respiratory: chest non-tender, lungs clear, normal breath sounds, no respiratory distress, no accessory muscle use Cardiovascular: normal peripheral pulses, regular rate, rhythm, no edema, no murmur Gastrointestinal: normal bowel sounds, non tender, soft Back: no CVA tenderness, no vertebral tenderness Extremities: normal range of motion, non-tender, normal inspection, no pedal edema, no calf tenderness, normal capillary refill Neurologic/Psychiatric: professor of psychiatry II-XII nml as tested, no motor/sensory deficits, alert, normal mood/affect, oriented x 3 Skin: normal color, warm/dry Lymphatic: no adenopathy Short Stay Diagnosis Discharge Diagnosis-Short Stay Admission Diagnosis See problem list Final Discharge Diagnosis See problem list Conclusion Plan See problem list Assessment/Plan Assessment/Plan Admission Status: Observation (1) Atypical chest pain Status: Acute Assessment & Plan: - Does not seem to be cardiac in nature, cardiology consulted, appreciate recommendations, stress normal (2) PAD (peripheral artery disease) Status: Chronic (3) HTN (hypertension) Status: Chronic Assessment & Plan: - Continue home meds Qualifiers: Qualified Codes: I10 - Essential (primary) hypertension (4) Pulmonary HTN Status: Chronic Assessment & Plan: - Patient needs outpatient sleep study (5) Non-insulin dependent diabetes mellitus Status: Chronic Assessment & Plan: - Continue home meds (6) CKD (chronic kidney disease), stage III Status: Chronic Qualifiers: Qualified Codes: N18.32 - Chronic kidney disease, stage 3b (7) CAD (coronary artery disease) Status: Chronic Qualifiers: Qualified Codes: I25.10 - Atherosclerotic heart disease of [place] coronary artery without angina pectoris (8) HLD (hyperlipidemia) Status: Chronic Qualifiers: Qualified Codes: E78.2 - Mixed hyperlipidemia (9) BMI 45.0-49.9, adult Status: Chronic ISELA BAH MD Nov 21, 2021 21:08
--- NOTE | 2021-11-21 21:10 | Discharge Summary ---
Discharge [facility] Reconcile Patient Problems Problems Reviewed?: Yes Discharge Medications New, Converted or Re-Newed RX: Other (No new meds) Continued Medications: Acetaminophen (Tylenol Extra Strength) 500 Mg Tablet 1000 MG PO Q8H PRN for PAIN-MILD (1-4), TAB Allopurinol (Allopurinol) 100 Mg Tablet 100 MG PO DAILY, TAB Amlodipine Besylate (Amlodipine Besylate) 10 Mg Tablet 10 MG PO 1900, TAB Ascorbate Calcium (Vitamin C) 500 Mg Tablet 500 MG PO DAILY, TAB Aspirin (Aspirin EC) 81 Mg Tablet.dr 81 MG PO DAILY, TAB Atorvastatin Calcium (Atorvastatin Calcium) 20 Mg Tablet 20 MG PO 1900, TAB Calcium Carbonate (Calcium Carbonate) 600 Mg Calcium (1500 Mg) Tablet 600 MG PO DAILY, TAB Diclofenac Sodium (Diclofenac Sodium) 1 % Gel..gram. 1 APPLIC TP QID PRN for PAIN-BREAKTHROUGH, TUBE APPLIES TO BILATERAL KNEES AND FEET Fluticasone Propionate (Fluticasone Propionate) 50 Mcg/Actuation [place].susp 1 SPRAY NSEACH HS, EA Furosemide (Furosemide) 20 Mg Tablet 20 MG PO DAILY, TAB Gabapentin (Gabapentin) 100 Mg Capsule 100 MG PO BID, CAP Hydrochlorothiazide (Hydrochlorothiazide) 12.5 Mg Tablet 12.5 MG PO DAILY, TAB Lisinopril (Lisinopril) 20 Mg Tablet 20 MG PO DAILY, TAB Metoprolol Succinate (Metoprolol Succinate) 200 Mg Tab.er.24h 200 MG PO 1900, TAB Multivitamin (Daily Vitamin Formula) 1 Each Tablet 1 TAB PO 1900, TAB Omeprazole (Omeprazole) 40 Mg Capsule.dr 40 MG PO DAILY, CAP Patient Instructions Goal/Follow Up Appt: - F/u with PCP 1-2 weeks Activity & Diet Discharge Diet: Low Sodium Diet, Cardiac Diet Activity as Tolerated: Yes ISELA BAH MD Nov 21, 2021 21:10
--- NOTE | 2021-11-21 22:17 | STRESS TEST ---
DATE OF SERVICE: 11/21/2021 RESTING AND POST REGADENOSON TECHNETIUM-99M TETROFOSMIN SPECT CT IMAGING ORDERING PHYSICIAN: Lorna Raymond APRN PRIMARY PHYSICIAN: Dr. Abernathy. CLINICAL DIAGNOSIS: Chest pain. Baseline images were carried out after injection of 10.04 mCi of technetium-99m Tetrofosmin. This was followed by 0.4 mg regadenoson and 32.4 mCi of technetium-99m Tetrofosmin for stress imaging. The electrocardiogram showed sinus rhythm at baseline. It did not change significantly with regadenoson infusion. Review of images at rest and following stress does not indicate any significant perfusion defects consistent with myocardial ischemia or infarction. Gated images show normal global left ventricular systolic function with normal regional wall motion. Left ventricular ejection fraction is calculated to be 77%. CONCLUSIONS: 1. No evidence of significant myocardial ischemia or infarction on this study. 2. Normal regional wall motion. 3. Normal global left ventricular systolic function with a calculated ejection fraction of 77%. Job ID: [id number] DocumentID: [id number] Dictated Date: 11/21/2021 17:03:44 [employer] Products Sales Engineer Date: 11/21/2021 22:16:32 Dictated By: MARY CORBETT MD, MA, FACP, FACC,
[2021-11-22] MEDS ORDERED: lisINopril 20 MG (PRINIVIL) TABLET PO SCH (09:00)
[2021-11-22] MEDS ORDERED: NON-FORMULARY MEDICATION 1 EA EA (Hydrochlorothiazide 12.5 MG) PO SCH (09:00)
== END 2021-11-21 21:08 | disposition home or self-care (01) ==
LOC: EDUNIT# 00:30 → ER 00:33 → CSD 01:40 → UNDOADMOB 01:40 → CSD 02:52 → UNDODISOB 20:29
PROVIDERS: ADMIT Internal Medicine; ATTEND Family Medicine
DX: R07.89 Other chest pain (principal); I25.10 Atherosclerotic heart disease of native coronary artery without angina pectoris; I73.9 Peripheral vascular disease, unspecified; I70.1 Atherosclerosis of renal artery; I12.9 Hypertensive chronic kidney disease with stage 1 through stage 4 chronic kidney disease, or unspecified chronic kidney disease; E11.22 Type 2 diabetes mellitus with diabetic chronic kidney disease; N18.4 Chronic kidney disease, stage 4 (severe); E11.42 Type 2 diabetes mellitus with diabetic polyneuropathy; Z90.5 Acquired absence of kidney; E78.5 Hyperlipidemia, unspecified; J44.9 Chronic obstructive pulmonary disease, unspecified; E66.9 Obesity, unspecified; Z68.42 Body mass index [BMI] 45.0-49.9, adult; K21.9 Gastro-esophageal reflux disease without esophagitis; I27.20 Pulmonary hypertension, unspecified; Z87.891 Personal history of nicotine dependence; Z95.820 Peripheral vascular angioplasty status with implants and grafts; Z79.52 Long term (current) use of systemic steroids; Z79.82 Long term (current) use of aspirin; Z88.6 Allergy status to analgesic agent; Z88.2 Allergy status to sulfonamides; Z88.8 Allergy status to other drugs, medicaments and biological substances
CPT/HCPCS: 71045; 78452; 80053; 80061; 82150; 82550; 82553; 83690; 83735; 83874; 83880; 84484; 85025; 85379; 85610; 85730; 93005; 93017; 93041; 93306; 99284; A9502; 36415

== ENCOUNTER 2022-08-28 21:38 | Emergency (ER) | payer OTHER ==
[~2022-08-28] VITALS: Ht 165.1 cm; Wt 130.0 kg
[~2022-08-28 21:38] MED LIST changes: +ACET-2267 PO; +ALLO100T PO; +ATOR20TA66 PO; +CALC600T80 PO; +DICL100G13 TP; +FURO20TA4 PO
--- NOTE | 2022-08-28 23:00 | ED Lower Extremity ---
General Chief Complaint: Lower Extremity Stated Complaint: PAIN IN LEFT KNEE AND LEG Nursing Triage Note: PT AMB TO ED BY POV WITH C/O L KNEE PAIN. PT REPORTS SUDDEN ONSET KNEE PAIN BEGINNING 1800, PROGRESSIVELY GETTING WORSE. DENIES INJURY, PAIN RADIATES TO FOOT. TYLENOL AT 1800. History of Present Illness Date Seen by Provider: Aug 28, 2022 Time Seen by Provider: 22:28 Initial Comments Here with onset of knee pain this evening. Denies any specific injury. 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 Does have history of knee pain to the left knee previously and has been seen here for that before. Reports that she feels like there is a little swelling and pain just distal to the knee on the anterior medial aspect of the calf. No discoloration noted. She does take aspirin daily but is otherwise not on blood thinners. She has used diclofenac topically but no other pain medicine. Onset: this afternoon Severity: mild, moderate Method of Injury: unknown Modifying Factors: Improves With Immobilization; Worse With Movement Allergies and Home Medications Allergies Coded Allergies: NSAIDS (Non-Steroidal Anti-Inflamma (Verified Allergy, Unknown, 11/11/12) Sulfa (Sulfonamide Antibiotics) (Verified Allergy, Unknown, 11/11/12) aliskiren (Verified Allergy, Unknown, 11/21/21) niacin (Verified Allergy, Unknown, 09/19/11) nitrofurantoin (Verified Allergy, Unknown, 11/21/21) Uncoded Allergies: IV CONTRAST (Allergy, Unknown, 11/11/12) Patient Home Medication List Home Medication List Reviewed: Yes Acetaminophen (Tylenol Extra Strength) 500 Mg Tablet, 1,000 MG PO Q8H PRN for PAIN-MILD (1-4), (Reported) Entered as Reported by: GREGG ANDREWS on 11/21/21 1502 Allopurinol (Allopurinol) 100 Mg Tablet, 100 MG PO DAILY, (Reported) Entered as Reported by: GREGG ANDREWS on 11/21/21 1502 Amlodipine Besylate (Amlodipine Besylate) 10 Mg Tablet, 10 MG PO 1900, (Reported) Entered as Reported by: GREGG ANDREWS on 11/21/21 1502 Ascorbate Calcium (Vitamin C) 500 Mg Tablet, 500 MG PO DAILY, (Reported) Entered as Reported by: JIM GRIMES on 02/08/18 0941 Aspirin (Aspirin EC) 81 Mg Tablet.dr, 81 MG PO DAILY, (Reported) Entered as Reported by: GREGG ANDREWS on 11/21/21 150 Atorvastatin Calcium (Atorvastatin Calcium) 20 Mg Tablet, 20 MG PO 1900, (Reported) Entered as Reported by: GREGG ANDREWS on 11/21/21 150 Calcium Carbonate (Calcium Carbonate) 600 Mg Calcium (1500 Mg) Tablet, 600 MG PO DAILY, (Reported) Entered as Reported by: GREGG ANDREWS on 11/21/21 150 Diclofenac Sodium (Diclofenac Sodium) 1 % Gel..gram., 1 APPLIC TP QID PRN for PAIN-BREAKTHROUGH, (Reported) Entered as Reported by: GREGG ANDREWS on 11/21/21 150 Fluticasone Propionate (Fluticasone Propionate) 50 Mcg/Actuation [place].susp, 1 SPRAY NSEACH HS, (Reported) Entered as Reported by: JIM GRIMES on 02/08/18 0933 Furosemide (Furosemide) 20 Mg Tablet, 20 MG PO DAILY, (Reported) Entered as Reported by: GREGG ANDREWS on 11/21/21 150 Gabapentin (Gabapentin) 100 Mg Capsule, 100 MG PO BID, (Reported) Entered as Reported by: OLAF BAUM on 02/08/18 0214 Hydrochlorothiazide (Hydrochlorothiazide) 12.5 Mg Tablet, 12.5 MG PO DAILY, (Reported) Entered as Reported by: GREGG ANDREWS on 11/21/21 150 Lisinopril (Lisinopril) 20 Mg Tablet, 20 MG PO DAILY, (Reported) Entered as Reported by: GREGG ANDREWS on 11/21/21 150 Metoprolol Succinate (Metoprolol Succinate) 200 Mg Tab.er.24h, 200 MG PO 1900, (Reported) Entered as Reported by: GREGG ANDREWS on 11/21/21 150 Multivitamin (Daily Vitamin Formula) 1 Each Tablet, 1 TAB PO 1900, (Reported) Entered as Reported by: JIM GRIMES on 08/19/18 0856 Omeprazole (Omeprazole) 40 Mg Capsule.dr, 40 MG PO DAILY, (Reported) Entered as Reported by: GREGG ANDREWS on 11/21/21 150 Review of Systems Constitutional: see HPI; No chills, No fever Respiratory: No cough, No short of breath Cardiovascular: No chest pain, No palpitations Musculoskeletal: joint pain, muscle pain Skin: No change in color, No lesions Past Tkyopjs-Jfgxpa-Imdxji Hx Patient Social History Tobacco Use?: No Use of E-Cig and/or Vaping dev: No Substance use?: No Alcohol Use?: No Pt feels they are or have been: No Immunizations Up To Date Tetanus Booster (TDap): Less than 5yrs Influenza Vaccine Up-to-Date: Yes; Up-to-Date First/Initial COVID19 Vaccinat: 06/10/20 Second COVID19 Vaccination Tal: 06/10/20 Third COVID19 Vaccination Date: 06/10/20 Seasonal Allergies Seasonal Allergies: No Past Medical History Surgery/Hospitalization HX: COPD Surgeries: Yes (CARDIAC AND PERIPHERAL CATHS-STENTS IN BOTH LEGS, AAA, RENAL ARTERIES. ) Adenoidectomy, Cardiac, Ear Surgery, Tonsillectomy, Vascular Surgery Respiratory: Yes Asthma, COPD Cardiac: Yes (CARDIAC & PERIPHERAL CATHS-STENTS IN LEGS, AAA, RENAL ARTERIES. 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 MORBID OBESITY. ) Diabetes, Non-Insulin dep HEENT: Yes (LEFT EAR DRUM RECONSTRUCTION; BLIND IN LEFT EYE. ) Chronic Ear Infection, Glaucoma Loss of Vision: Left Cancer: No Psychosocial: No Integumentary: No Blood Disorders: Yes (ANEMIA) Adverse Reaction/Blood Tranf: No Family Medical History Reviewed Nursing Family Hx Patient reports no known family medical history. No Pertinent Family Hx SOCIAL HISTORY: -SMOKED 1 1/2 PPD, QUIT 10 YEARS AGO -ETOH--HEAVY USE, QUIT 30 YEARS AGO -DRUGS--THC TEEN PAST SURGICAL HISTORY: -MULTIPLE STENTS IN BOTH LEGS, BOTH KIDNEYS/RENAL ARTERIES AND AORTIC ANEURYSM STENT Physical Exam Vital Signs Vital Signs - First Documented 08/28/22 21:50 Temp 36.5 Pulse 63 Resp 16 B/P (MAP) 137/59 (85) Pulse Ox 95 O2 Delivery Room Air Capillary Refill : Less Than 3 Seconds Height, Weight, BMI Height: 5'5.00" Weight: 285lbs. 3.0oz. 129.102110mw; 47.00 BMI Method:Stated General Appearance: WD/WN, no apparent distress Cardiovascular: regular rate, rhythm, no murmur Respiratory: lungs clear, normal breath sounds Knees: left knee pain (Distal knee with mild effusion noted), left knee other (No obvious change in color or deformity noted. Reasonable range of motion and is able to walk on this. No significant calf swelling or tenderness noted.) Neurologic/Psychiatric: alert, oriented x 3 Skin: normal color, warm/dry Progress/Results/Core Measures Results/Orders My Orders Orders - DIMAS GARCIA MD Rx-Hydrocodone/Apap 5-325 Mg (Rx-Vicodin (08/28/22 23:00) Medications Given in ED Current Medications Medications Dose Ordered Sig/Aramis Route Start Time Stop Time Status Last Admin Dose Admin Acetaminophen/ Hydrocodone Bitart 1 ea Q6H PRN PO 08/28/22 23:00 08/28/22 23:12 DC 08/28/22 23:05 1 EA Vital Signs/I&O 08/28/22 08/28/22 21:50 23:11 Temp 36.5 Pulse 63 62 Resp 16 16 B/P (MAP) 137/59 (85) 134/63 Pulse Ox 95 96 O2 Delivery Room Air Room Air Blood Pressure Mean: 85 Progress Progress Note : Progress Note Seen and evaluated. We did have long discussion related to differential diagnosis. This would include osteoarthritis with inflammatory response after working today, DVT. Less likely would be fracture spontaneous or otherwise. We did consider x-ray of the left knee. She has had very similar pain presentation previously with x-ray that showed mild degeneration but otherwise negative. Less likely is DVT although that would still be a concern. I believe that this would be very low likelihood but we we will get ultrasound of the left leg to rule out DVT. This is not available tonight. We did consider D-dimer although I do not think this would change my management currently. We did discuss option of blood thinner versus just getting ultrasound tomorrow. She does report that she has had recent labs at [facility] which showed reasonable renal function and those labs were drawn and resulted in the last 1 to 2 weeks. Ultimately we decided that she would get ultrasound of the left leg tomorrow. I will send her home with go pack of hydrocodone tonight and she will continue diclofenac and acetaminophen as well as her aspirin. Jaden wrap was given and applied. She will use ice, rest and elevation and get ultrasound in the morning. She agreed with all of this. Return precautions discussed by me with her especially with regard to concerns for DVT and pulmonary embolism. Discharged home with return precautions. Patient verbalized understanding of instructions and agreement with plan. Departure Impression Primary Impression: Left knee pain Qualified Codes: M25.562 - Pain in left knee Disposition: HOME, SELF-CARE Condition: Stable Departure-Patient Inst. Decision time for Depature: 22:56 Referrals: WHIT LOVELL DO (PCP/Family) Primary Care Physician JELENA WILEY MD Patient Instructions: Knee Pain (DC) Add. Discharge Instructions: All discharge instructions reviewed with patient and/or family. Voiced understanding. You will return in the morning at 730 for ultrasound of the left lower extremity to rule out deep vein thrombosis. You may continue your diclofenac cream and use Jaden wrap as needed for pain. Elevate the leg and use ice packs over knee 20 minutes/h as needed to reduce swelling and pain for the next 1 to 2 days. Follow-up with your doctor in a few days for recheck. Continue your aspirin as previously indicated. Use pain medicine given sparingly. You should follow-up with orthopedist listed or of your choosing for recheck and further evaluation as well given the history of left knee pain. Return for worse pain, breathing problems, weakness, swelling, chest pain or other concerns as needed. DIMAS GARCIA MD Aug 28, 2022 23:00
[2022-08-28 23:11] VITALS: BP 134/63
== END 2022-08-28 23:11 | disposition home or self-care (01) ==
LOC: EDUNIT# 21:38 → ER 21:41
DX: M25.562 Pain in left knee (principal); E66.01 Morbid (severe) obesity due to excess calories; Z68.42 Body mass index [BMI] 45.0-49.9, adult; Z79.82 Long term (current) use of aspirin; Z87.891 Personal history of nicotine dependence; Z88.6 Allergy status to analgesic agent
CPT/HCPCS: 99283

== ENCOUNTER → 2022-08-29 | Outpatient (CLI) | payer OTHER ==
--- NOTE | 2022-08-29 08:50 | Diagnostic Imaging Report ---
EXAMINATION: US Lower Extremity Venous Duplex Left. TECHNIQUE: Multiple real-time grayscale images were obtained over the left lower extremity in various projections. Additional spectral analysis and color Doppler duplex images were also obtained. HISTORY: Left leg pain and swelling. COMPARISON: None available. FINDINGS: The left common femoral vein, deep femoral vein, superficial femoral vein and popliteal vein are patent with normal valderrama scale and doppler appearance. There is normal respiratory variation and augmentation. The visualized calf vessels are patent. IMPRESSION: 1. No DVT of the left lower extremity. Dictated by: Dictated on workstation # [id number]
== END ==
LOC: RAD 07:15
PROVIDERS: ATTEND Emergency Medicine
DX: M79.605 Pain in left leg (principal); M79.89 Other specified soft tissue disorders

== ENCOUNTER 2022-09-12 11:50 | Emergency (ER) | payer OTHER ==
[~2022-09-12] VITALS: Ht 165 cm; Wt 129.0 kg
--- NOTE | 2022-09-12 12:40 | ED Lower Extremity ---
General Chief Complaint: Lower Extremity Stated Complaint: FALL | RT ANKLE INJ Nursing Triage Note: PT AMB TO TRIAGE, PT FELL STEPPED IN HOLE, STATES HAS R ANKLE PAIN AND L KNEE PAIN FROM FALL. PT DENEIS HITTING HEAD Source: patient Exam Limitations: no limitations History of Present Illness Date Seen by Provider: September 12, 2022 Time Seen by Provider: 12:19 Initial Comments 61-year-old female presents to the ED after a fall which occurred approximately 1.5 hours prior to arrival. She states she was walking outside, stepped in a hole which resulted in her twisting her right ankle and landing on her left knee. Her main complaint is her right ankle pain. Reports mild pain in left knee, she is less concerned about this. Right ankle is swollen. Patient reports she is able to walk, but reports pain with walking. Reports some numbness in the foot. Allergies and Home Medications Allergies Coded Allergies: NSAIDS (Non-Steroidal Anti-Inflamma (Verified Allergy, Unknown, 11/11/12) Sulfa (Sulfonamide Antibiotics) (Verified Allergy, Unknown, 11/11/12) aliskiren (Verified Allergy, Unknown, 11/21/21) niacin (Verified Allergy, Unknown, 09/19/11) nitrofurantoin (Verified Allergy, Unknown, 11/21/21) Uncoded Allergies: IV CONTRAST (Allergy, Unknown, 11/11/12) Patient Home Medication List Home Medication List Reviewed: Yes Acetaminophen (Tylenol Extra Strength) 500 Mg Tablet, 1,000 MG PO Q8H PRN for PAIN-MILD (1-4), (Reported) Entered as Reported by: GREGG ANDREWS on 11/21/21 1502 Allopurinol (Allopurinol) 100 Mg Tablet, 100 MG PO DAILY, (Reported) Entered as Reported by: GREGG ANDREWS on 11/21/21 1502 Amlodipine Besylate (Amlodipine Besylate) 10 Mg Tablet, 10 MG PO 1900, (Reported) Entered as Reported by: GREGG ANDREWS on 11/21/21 1502 Ascorbate Calcium (Vitamin C) 500 Mg Tablet, 500 MG PO DAILY, (Reported) Entered as Reported by: JIM GRIMES on 02/08/18 0941 Aspirin (Aspirin EC) 81 Mg Tablet.dr, 81 MG PO DAILY, (Reported) Entered as Reported by: GREGG ANDREWS on 11/21/21 1502 Atorvastatin Calcium (Atorvastatin Calcium) 20 Mg Tablet, 20 MG PO 1900, (Reported) Entered as Reported by: GREGG ANDREWS on 11/21/21 1502 Calcium Carbonate (Calcium Carbonate) 600 Mg Calcium (1500 Mg) Tablet, 600 MG PO DAILY, (Reported) Entered as Reported by: GREGG ANDREWS on 11/21/21 1502 Diclofenac Sodium (Diclofenac Sodium) 1 % Gel..gram., 1 APPLIC TP QID PRN for PAIN-BREAKTHROUGH, (Reported) Entered as Reported by: GREGG ANDREWS on 11/21/21 1506 Fluticasone Propionate (Fluticasone Propionate) 50 Mcg/Actuation [place].susp, 1 SPRAY NSEACH HS, (Reported) Entered as Reported by: JIM GRIMES on 02/08/18 0933 Furosemide (Furosemide) 20 Mg Tablet, 20 MG PO DAILY, (Reported) Entered as Reported by: GREGG ANDREWS on 11/21/21 1502 Gabapentin (Gabapentin) 100 Mg Capsule, 100 MG PO BID, (Reported) Entered as Reported by: OLAF BAUM on 02/08/18 0214 Hydrochlorothiazide (Hydrochlorothiazide) 12.5 Mg Tablet, 12.5 MG PO DAILY, (Reported) Entered as Reported by: GREGG ANDREWS on 11/21/21 1502 Lisinopril (Lisinopril) 20 Mg Tablet, 20 MG PO DAILY, (Reported) Entered as Reported by: GREGG ANDREWS on 11/21/21 1502 Metoprolol Succinate (Metoprolol Succinate) 200 Mg Tab.er.24h, 200 MG PO 1900, (Reported) Entered as Reported by: GREGG ANDREWS on 11/21/21 1502 Multivitamin (Daily Vitamin Formula) 1 Each Tablet, 1 TAB PO 1900, (Reported) Entered as Reported by: JIM GRIMES on 08/19/18 0856 Omeprazole (Omeprazole) 40 Mg Capsule.dr, 40 MG PO DAILY, (Reported) Entered as Reported by: GREGG ANDREWS on 11/21/21 1502 Review of Systems Constitutional: no symptoms reported Musculoskeletal: joint pain Past Rgsdkry-Cwqjrw-Lqsnib Hx Patient Social History Tobacco Use?: No Substance use?: No Alcohol Use?: No Pt feels they are or have been: No Immunizations Up To Date Tetanus Booster (TDap): Less than 5yrs Influenza Vaccine Up-to-Date: No; Not Current First/Initial COVID19 Vaccinat: 06/10/20 Second COVID19 Vaccination Tal: 06/10/20 Third COVID19 Vaccination Date: 06/10/20 Seasonal Allergies Seasonal Allergies: No Past Medical History Surgery/Hospitalization HX: COPD Surgeries: Yes (CARDIAC AND PERIPHERAL CATHS-STENTS IN BOTH LEGS, AAA, RENAL ARTERIES. ) Adenoidectomy, Cardiac, Ear Surgery, Tonsillectomy, Vascular Surgery Respiratory: Yes Asthma, COPD Cardiac: Yes (CARDIAC & PERIPHERAL CATHS-STENTS IN LEGS, AAA, RENAL ARTERIES. NO CARDIAC ) Aneurysm, Chronic Edema/Swelling, Coronary Artery Disease, High Cholesterol, Hypertension, Peripheral Vascular Neurological: Yes Neuropathy Reproductive Disorders: No (MENOPAUSE AGE 37) [employer] History: Menopausal Sexually Transmitted Disease: Yes Genitourinary: Yes (RENAL ARTERY STENOSIS-STENTS IN BOTH RENAL ARTERIES; RIGHT KIDNEY IS "") Kidney Infection, Bladder Infection, Renal Failure, UTI-Chronic Gastrointestinal: Yes Gastroesophageal Reflux Musculoskeletal: Yes Arthritis, Fibromyalgia, Chronic Back Pain, Gout Endocrine: Yes (NO MEDICATIONS FOR DIABETES, DOES NOT CHECK BLOOD GLUCOSE. MORBID OBESITY. ) Diabetes, Non-Insulin dep HEENT: Yes (LEFT EAR DRUM RECONSTRUCTION; BLIND IN LEFT EYE. ) Chronic Ear Infection, Glaucoma Loss of Vision: Left Cancer: No Psychosocial: No Integumentary: No Blood Disorders: Yes (ANEMIA) Adverse Reaction/Blood Tranf: No Family Medical History Patient reports no known family medical history. No Pertinent Family Hx SOCIAL HISTORY: -SMOKED 1 1/2 PPD, QUIT 10 YEARS AGO -ETOH--HEAVY USE, QUIT 30 YEARS AGO -DRUGS--THC TEEN PAST SURGICAL HISTORY: -MULTIPLE STENTS IN BOTH LEGS, BOTH KIDNEYS/RENAL ARTERIES AND AORTIC ANEURYSM STENT Physical Exam Vital Signs Vital Signs - First Documented 09/12/22 09/12/22 12:10 13:26 Temp 36.6 Pulse 58 Resp 18 B/P (MAP) 162/78 (106) Pulse Ox 96 O2 Delivery Room Air Capillary Refill : Less Than 3 Seconds Height, Weight, BMI Height: 5'5.00" Weight: 285lbs. 3.0oz. 129.477861nu; 47.00 BMI Method:Stated General Appearance: WD/WN, no apparent distress Neck: supple, normal inspection Cardiovascular: regular rate, rhythm Respiratory: lungs clear, normal breath sounds, no respiratory distress, no accessory muscle use Knees: left knee normal inspection, left knee no evidence of injury, left knee pain Ankles: right ankle pain, right ankle soft tissue tenderness, right ankle swelling, right ankle other (Cap refill less than 2 seconds, sensation intact distally, pulses intact) Neurologic/Psychiatric: alert, normal mood/affect Skin: normal color, warm/dry Progress/Results/Core Measures Results/Orders My Orders Orders - SALEEM BERRIOS APRN Ankle, Right, 3 Views (09/12/22 12:29) Jaden Bandage (09/12/22 13:09) Crutches (09/12/22 13:09) Vital Signs/I&O 09/12/22 09/12/22 12:10 13:26 Temp 36.6 36.6 Pulse 58 58 Resp 18 18 B/P (MAP) 162/78 (106) 162/78 Pulse Ox 96 96 O2 Delivery Room Air Blood Pressure Mean: 106 Progress Progress Note : Progress Note Patient seen and evaluated, resting comfortably in recliner, no acute distress. Based on exam and symptoms, concern for right ankle fracture, dislocation, or sprain. X-ray of right ankle ordered. 1316 x-ray reviewed, negative for acute fracture dislocation. Does show degenerative changes. Results discussed with patient. Will discharge with Jaden bandage and crutches. Diagnostic Imaging Diagonstic Imaging: Xray Plain Films/CT/US/NM/MRI: ankle Comments [facility], [place] NAME: PAMELLA TORRES Lluvia [facility] REC#: [id number] PT STATUS: REG ER : 1960 PHYSICIAN: SALEEM BERRIOS APRN ADMIT DATE: 09/12/22/ER Draft Date of Exam:09/12/22 ANKLE, RIGHT, 3 VIEWS INDICATION: Right ankle pain. AP, oblique, and lateral views of the right ankle are obtained. FINDINGS: No fracture or acute bony abnormality seen. There is mild degenerative change of the ankle joint with anterior osteophyte formation. IMPRESSION: Moderate degenerative change as above with no acute appearing bony abnormality. Dictated on workstation # [id number] Dict: 09/12/22 1300 Trans: 09/12/22 1303 [id number] Interpreted by: LEONILA ALCALA MD Electronically signed by: Departure Impression Primary Impression: Sprain and strain of ankle Disposition: HOME, SELF-CARE Condition: Stable Departure-Patient Inst. Decision time for Depature: 13:16 Referrals: WHIT LOVELL DO (PCP/Family) Primary Care Physician Patient Instructions: Ankle Sprain (DC) Add. Discharge Instructions: You may take Tylenol as needed for pain. Use RICE: Rest, ice, compression, elevation. Rest ankle, use the crutches to stay off of it. Use ice, apply 20 minutes at a time several times a day for the next couple days. Wear the Jaden bandage for compression. Elevate your leg above the level of heart as frequently as possible. Follow-up with your primary care provider if not improving. Return for uncontrolled pain, or any other new, concerning, or worsening symptoms. All discharge instructions reviewed with patient and/or family. Voiced understanding. 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
--- NOTE | 2022-09-12 13:03 | Diagnostic Imaging Report ---
INDICATION: Right ankle pain. AP, oblique, and lateral views of the right ankle are obtained. FINDINGS: No fracture or acute bony abnormality seen. There is mild degenerative change of the ankle joint with anterior osteophyte formation. IMPRESSION: Moderate degenerative change as above with no acute appearing bony abnormality. Dictated by: Dictated on workstation # [id number]
[2022-09-12 13:26] VITALS: BP 162/78
== END 2022-09-12 13:26 | disposition home or self-care (01) ==
LOC: EDUNIT# 11:50 → ER 11:52
DX: S93.401A Sprain of unspecified ligament of right ankle, initial encounter (principal); S96.911A Strain of unspecified muscle and tendon at ankle and foot level, right foot, initial encounter; E66.01 Morbid (severe) obesity due to excess calories; Z68.42 Body mass index [BMI] 45.0-49.9, adult; Z87.891 Personal history of nicotine dependence; Z88.6 Allergy status to analgesic agent; W18.31XA Fall on same level due to stepping on an object, initial encounter; X50.1XXA Overexertion from prolonged static or awkward postures, initial encounter; Y93.01 Activity, walking, marching and hiking
CPT/HCPCS: 73610

== ENCOUNTER 2022-12-14 04:23 | Emergency (ER) | payer OTHER ==
[~2022-12-14] VITALS: Ht 165 cm; Wt 136.0 kg
[2022-12-14 04:34] VITALS: BP 174/102
--- NOTE | 2022-12-14 05:08 | ED Upper Extremity ---
General Chief Complaint: Chest Pain Stated Complaint: LEFT ARM PAIN/LUMP Nursing Triage Note: PATIENT VERBALIZED LEFT ARM PAIN IN AC AREA, FEELS "KNOT" STATES NOTICED FIRST TIME YESTERDAY EVENING AROUND 2200, THIS AM 0345 WOKE PATIENT FROM SLEEP. DENIES SOB, CP, LEFT ARM, HAND NUMBESS. DENIES INJURY. Source: patient Exam Limitations: no limitations History of Present Illness Date Seen by Provider: Dec 14, 2022 Time Seen by Provider: 04:42 Initial Comments Patient is a 62-year-old female who presents to the emergency room with a chief complaint of pain to the medial left elbow. Patient states last night she had some discomfort around 10:00. She took some Tylenol and went to bed. She woke up this morning at about 345 with worse pain. She endorses pain from the medial to the lateral aspect of the elbow. She feels it is a little swollen and she feels like there is a "knot" in the area of pain. She cannot recall any trauma. Has not done any heavy lifting, pushing or pulling. She has never had pain like this before. No history of known coronary artery disease. She states that palpation of the area makes it hurt worse. She has a solitary kidney and cannot take NSAIDs. Denies shortness of breath, nausea, fever, weakness, tingling. Patient has had a heart cath in 2018 with 40% ostial stenosis LAD otherwise no significant obstructive disease. She has had a stress and echo in the last year which showed a normal EF. And her stress test did not result in repeat cath last year. Onset: other (Last night) Severity: moderate Pain/Injury Location: left elbow Method of Injury: unknown Modifying Factors: Improves With Other (Patient hurts the area) Allergies and Home Medications Allergies Coded Allergies: NSAIDS (Non-Steroidal Anti-Inflamma (Verified Allergy, Unknown, 11/11/12) Sulfa (Sulfonamide Antibiotics) (Verified Allergy, Unknown, 11/11/12) aliskiren (Verified Allergy, Unknown, 11/21/21) niacin (Verified Allergy, Unknown, 09/19/11) nitrofurantoin (Verified Allergy, Unknown, 11/21/21) Uncoded Allergies: IV CONTRAST (Allergy, Unknown, 11/11/12) Patient Home Medication List Home Medication List Reviewed: Yes Acetaminophen (Tylenol Extra Strength) 500 Mg Tablet, 1,000 MG PO Q8H PRN for PAIN-MILD (1-4), (Reported) Entered as Reported by: GREGG ANDREWS on 11/21/21 150 Allopurinol (Allopurinol) 100 Mg Tablet, 100 MG PO DAILY, (Reported) Entered as Reported by: GREGG ANDREWS on 11/21/21 150 Amlodipine Besylate (Amlodipine Besylate) 10 Mg Tablet, 10 MG PO 1900, (Reported) Entered as Reported by: GREGG ANDREWS on 11/21/21 150 Ascorbate Calcium (Vitamin C) 500 Mg Tablet, 500 MG PO DAILY, (Reported) Entered as Reported by: JIM GRIMES on 02/08/18 09 Aspirin (Aspirin EC) 81 Mg Tablet.dr, 81 MG PO DAILY, (Reported) Entered as Reported by: GREGG ANDREWS on 11/21/21 150 Atorvastatin Calcium (Atorvastatin Calcium) 20 Mg Tablet, 20 MG PO 1900, (Reported) Entered as Reported by: GREGG ANDREWS on 11/21/21 150 Calcium Carbonate (Calcium Carbonate) 600 Mg Calcium (1500 Mg) Tablet, 600 MG PO DAILY, (Reported) Entered as Reported by: GREGG ANDREWS on 11/21/21 150 Diclofenac Sodium (Diclofenac Sodium) 1 % Gel..gram., 1 APPLIC TP QID PRN for PAIN-BREAKTHROUGH, (Reported) Entered as Reported by: GREGG ANDREWS on 11/21/21 150 Fluticasone Propionate (Fluticasone Propionate) 50 Mcg/Actuation [place].susp, 1 SPRAY NSEACH HS, (Reported) Entered as Reported by: JIM GRIMES on 02/08/18 0933 Furosemide (Furosemide) 20 Mg Tablet, 20 MG PO DAILY, (Reported) Entered as Reported by: GREGG ANDREWS on 11/21/21 150 Gabapentin (Gabapentin) 100 Mg Capsule, 100 MG PO BID, (Reported) Entered as Reported by: OLAF BAUM on 02/08/18 0214 Hydrochlorothiazide (Hydrochlorothiazide) 12.5 Mg Tablet, 12.5 MG PO DAILY, (Reported) Entered as Reported by: GREGG ANDREWS on 11/21/21 150 Lisinopril (Lisinopril) 20 Mg Tablet, 20 MG PO DAILY, (Reported) Entered as Reported by: GREGG ANDREWS on 11/21/21 150 Metoprolol Succinate (Metoprolol Succinate) 200 Mg Tab.er.24h, 200 MG PO 1900, (Reported) Entered as Reported by: GREGG ANDREWS on 11/21/21 150 Multivitamin (Daily Vitamin Formula) 1 Each Tablet, 1 TAB PO 0, (Reported) Entered as Reported by: JIM GRIMES on 08/19/18 0856 Omeprazole (Omeprazole) 40 Mg Capsule.dr, 40 MG PO DAILY, (Reported) Entered as Reported by: GREGG ANDREWS on 11/21/21 150 Review of Systems Constitutional: see HPI Respiratory: no symptoms reported Cardiovascular: no symptoms reported Gastrointestinal: no symptoms reported Genitourinary: no symptoms reported Musculoskeletal: other (Left elbow pain) Skin: no symptoms reported All Other Systems Reviewed Negative Unless Noted: Yes Past Qqztznw-Boljkx-Eqkvvy Hx Immunizations Up To Date Tetanus Booster (TDap): Less than 5yrs First/Initial COVID19 Vaccinat: 06/10/20 Second COVID19 Vaccination Tal: 06/10/20 Third COVID19 Vaccination Date: 06/10/20 Seasonal Allergies Seasonal Allergies: No Past Medical History Surgery/Hospitalization HX: COPD Surgeries: Yes (CARDIAC AND PERIPHERAL CATHS-STENTS IN BOTH LEGS, AAA, RENAL ARTERIES. ) Adenoidectomy, Cardiac, Ear Surgery, Tonsillectomy, Vascular Surgery Respiratory: Yes Asthma, COPD Cardiac: Yes (CARDIAC & PERIPHERAL CATHS-STENTS IN LEGS, AAA, RENAL ARTERIES. NO CARDIAC ) Aneurysm, Chronic Edema/Swelling, Coronary Artery Disease, High Cholesterol, Hypertension, Peripheral Vascular Neurological: Yes Neuropathy Reproductive Disorders: No (MENOPAUSE AGE 37) CUT OFF MAN History: Menopausal Sexually Transmitted Disease: Yes Genitourinary: Yes (RENAL ARTERY STENOSIS-STENTS IN BOTH RENAL ARTERIES; RIGHT KIDNEY IS "") Kidney Infection, Bladder Infection, Renal Failure, UTI-Chronic Gastrointestinal: Yes Gastroesophageal Reflux Musculoskeletal: Yes Arthritis, Fibromyalgia, Chronic Back Pain, Gout Endocrine: Yes (NO MEDICATIONS FOR DIABETES, DOES NOT CHECK BLOOD GLUCOSE. MORBID OBESITY. ) Diabetes, Non-Insulin dep HEENT: Yes (LEFT EAR DRUM RECONSTRUCTION; BLIND IN LEFT EYE. ) Chronic Ear Infection, Glaucoma Loss of Vision: Left Cancer: No Psychosocial: No Integumentary: No Blood Disorders: Yes (ANEMIA) Adverse Reaction/Blood Tranf: No Family Medical History Patient reports no known family medical history. No Pertinent Family Hx SOCIAL HISTORY: -SMOKED 1 1/2 PPD, QUIT 10 YEARS AGO -ETOH--HEAVY USE, QUIT 30 YEARS AGO -DRUGS--THC TEEN PAST SURGICAL HISTORY: -MULTIPLE STENTS IN BOTH LEGS, BOTH KIDNEYS/RENAL ARTERIES AND AORTIC ANEURYSM STENT Physical Exam Vital Signs Vital Signs - First Documented 12/14/22 04:34 Temp 36.0 Pulse 63 Resp 20 B/P (MAP) 174/102 (126) Pulse Ox 93 O2 Delivery Room Air Capillary Refill : Less Than 3 Seconds Height, Weight, BMI Height: 5'5.00" Weight: 285lbs. 3.0oz. 129.900415au; 49.00 BMI Method:Stated General Appearance: WD/WN, no apparent distress, obese Cardiovascular: regular rate, rhythm Respiratory: lungs clear, normal breath sounds, no respiratory distress, no accessory muscle use Shoulder: normal inspection, normal ROM Elbow/Forearm: normal inspection, soft tissue tenderness (tenderness to palpation to the medial left elbow, across the AC space and laterally. no significant edema is appreciated. No erythema. No discrete induration/swelling. distal NVI) Wrist: Yes normal inspection Hand: normal inspection Neurologic/Psychiatric: alert, normal mood/affect, oriented x 3 Skin: normal color, warm/dry Progress/Results/Core Measures Results/Orders My Orders Orders - ARNALDO ARNOLD MD Ekg Tracing (12/14/22 04:44) Vital Signs/I&O 12/14/22 04:34 Temp 36.0 Pulse 63 Resp 20 B/P (MAP) 174/102 (126) Pulse Ox 93 O2 Delivery Room Air Blood Pressure Mean: 126 Initial ECG Impression Date: Dec 14, 2022 Initial ECG Impression Time: 05:14 Initial ECG Rate: 51 Initial ECG Rhythm: S.Sulaiman Initial ECG Intervals: Normal Comment bradycardia - 51. no ectopy. no ST elevation or depressions. normal intervals Departure Impression Primary Impression: Pain in joint of left elbow Disposition: 01 HOME, SELF-CARE Condition: Stable Departure-Patient Inst. Decision time for Depature: 05:23 Referrals: WHIT LOVELL DO (PCP/Family) Primary Care Physician Patient Instructions: Acute Pain, Adult (DC) Add. Discharge Instructions: You can use over the counter Biofreeze or Icy Hot to help relieve the discomfort in your elbow. Also I have given you a small prescription of pain medications - You can take one ever 6 hours if the Tylenol is not working. Tramadol 50mg. If you notice increased swelling, redness or develop a fever, please return to the Emergency Department for re-evaluation. Follow up with your primary care doctor. Scripts Tramadol HCl (Tramadol HCl) 50 Mg Tablet 50 MG PO Q6H PRN for PAIN, #8 TAB 0 Refills Prov: ARNALDO ARNOLD MD 12/14/22 Copy Copies To 1: WHIT LOVELL KATHRYN M MD Dec 14, 2022 05:08
[2022-12-14] MEDS ORDERED: TRM50T PO (05:25)
== END 2022-12-14 05:33 | disposition home or self-care (01) ==
LOC: EDUNIT# 04:23 → ER 04:25
DX: M25.522 Pain in left elbow (principal); R00.1 Bradycardia, unspecified; Z87.891 Personal history of nicotine dependence; Z88.6 Allergy status to analgesic agent; Z28.310 Unvaccinated for COVID-19
CPT/HCPCS: 93005